=== PATIENT | female | born 1935 | race Caucasian/White ===

== ENCOUNTER 2018-01-20 09:18 | Emergency (ER) | payer OTHER ==
--- OUTSIDE RECORDS SUMMARY | 2018-01-20 09:20 | XMS REPORT | Clinical Summary ---
:1935 Author Organization [facility] Address [address] [place] [address] Care Team Providers Name Role Phone Lena Aaron MD Primary Care Provider Allergies Active Allergy Reactions Severity Noted Date Comments Amoxicillin 08/27/2015 Sulfamethoxazole-Trimethoprim Rash Low 12/26/2017 Hydrocodone 08/27/2015 Nitrofurantoin Rash Low 08/27/2015 Penicillins Rash Low 12/26/2017 Current Medications Prescription Sig. Disp. Refills Start End Date Status Date atorvastatin (LIPITOR) Take 1 Active 80 MG tablet tablet by mouth daily. calcium Chew 1 Active carbonate-vitamin D3 tablet 2 (CALTRATE 600 + D) 600 daily. mg (1,500 mg)-800 unit tablet,chewable ieearbuk-bqwfwtp-gvrt-skyler Take 1 Active tein (CENTRUM SILVER tablet by 2 ULTRA WOMEN'S) tablet mouth daily. UBIDECARENONE (COQ-10 Take 1 Active ORAL) tablet by mouth daily. esomeprazole (NexIUM) 40 Take 1 Active MG capsule tablet by mouth daily. Bacillus coagulans Take 1 Active (PROBIOTIC, B. tablet by COAGULANS,) 10 billion mouth daily. cell capsule,delayed release(DR/EC) polyethylene glycol Take 17 g by Active (MIRALAX) 17 gram packet mouth daily. clopidogrel (PLAVIX) 75 Take 75 mg Active mg tablet by mouth daily. DULoxetine (CYMBALTA) 20 TAKE 1 30 capsule 5 Active MG capsule CAOSULE BY 8 MOUTH AT BEDTIME losartan (COZAAR) 100 MG TAKE 1 30 tablet 5 Active tablet TABLET BY 8 MOUTH ONCE A DAY hydroCHLOROthiazide Take 12.5 mg Active (HYDRODIURIL) 12.5 MG by mouth tablet daily. fenofibrate (FENOGLIDE) Take 1 90 tablet 1 Active 120 MG tablet tablet (120 8 mg total) by mouth nightly. levothyroxine TAKE 1 90 tablet 3 Active (SYNTHROID, LEVOXYL) 75 TABLET BY 8 mcg tablet MOUTH EVERY MORNING alendronate (FOSAMAX) 35 TAKE 1 4 tablet 11 Active MG tablet TABLET BY 8 MOUTH ONCE A WEEK omega-3 acid ethyl TAKE 2 120 capsule 4 Active esters (LOVAZA) 1 gram CAPSULES BY 8 capsule MOUTH TWICE A DAY gabapentin (NEURONTIN) TAKE 2 360 capsule 1 Active 300 mg capsule CAPSULES BY 8 MOUTH TWICE A DAY valACYclovir (VALTREX) TAKE 1 90 tablet 1 Active 500 MG tablet TABLET BY 8 MOUTH DAILY amLODIPine (NORVASC) 5 TAKE 1 60 tablet 2 Active mg tabletIndications: TABLET BY 8 Essential hypertension MOUTH TWICE A DAY ondansetron (ZOFRAN, Take 1 10 tablet 0 03/13/20 Discontinued HYDROCHLORIDE,) 4 MG tablet (4 mg 7 17 tablet total) by mouth every 8 (eight) hours as needed for nausea or vomiting. valACYclovir (VALTREX) TAKE 1 90 tablet 3 11/06/19 Discontinued 500 MG tablet TABLET BY 7 18 MOUTH DAILY alendronate (FOSAMAX) 35 Take 1 4 tablet 5 02/08/20 Discontinued MG tablet tablet (35 7 17 mg total) by mouth every 7 days. * fenofibrate (LOFIBRA) 54 TAKE 1 30 tablet 5 03/22/20 Discontinued MG tablet TABLET BY 7 17 MOUTH EVERY DAY losartan (COZAAR) 100 MG TAKE 1 30 tablet 3 03/22/20 Discontinued tablet TABLET BY 7 17 MOUTH ONCE A DAY levothyroxine Take 1 90 tablet 1 06/10/19 Discontinued (SYNTHROID, LEVOXYL) 75 tablet (75 7 18 mcg tablet mcg total) by mouth every morning. DULoxetine (CYMBALTA) 20 TAKE 1 30 capsule 5 07/10/19 Discontinued MG capsule CAPSULE (20 7 18 MG TOTAL) BY MOUTH DAILY AT BEDTIME omega-3 acid ethyl TAKE 2 120 capsule 5 07/03/19 Discontinued esters (LOVAZA) 1 gram CAPSULES BY 7 18 capsule MOUTH TWICE A DAY amLODIPine (NORVASC) 5 TAKE 1 30 tablet 2 03/24/20 Discontinued mg tablet TABLET BY 7 17 MOUTH EVERY DAY gabapentin (NEURONTIN) TAKE 2 360 capsule 0 04/14/19 Discontinued 300 mg capsule CAPSULES BY 7 18 MOUTH TWICE A DAY alendronate (FOSAMAX) 35 TAKE 1 4 tablet 1 04/01/19 Discontinued MG tablet TABLET (35 7 18 MG TOTAL) BY MOUTH EVERY 7 DAYS. * fenofibrate (LOFIBRA) 54 TAKE 1 30 tablet 3 07/16/19 Discontinued MG tablet TABLET BY 7 18 MOUTH EVERY DAY losartan (COZAAR) 100 MG TAKE 1 30 tablet 3 07/08/19 Discontinued tablet TABLET BY 7 18 MOUTH ONCE A DAY amLODIPine (NORVASC) 5 TAKE 1 30 tablet 3 05/31/19 Discontinued mg tablet TABLET BY 8 18 MOUTH EVERY DAY alendronate (FOSAMAX) 35 TAKE 1 4 tablet 1 05/11/19 Discontinued MG tablet TABLET BY 8 18 MOUTH ONCE A WEEK gabapentin (NEURONTIN) TAKE 2 360 capsule 1 10/16/19 Discontinued 300 mg capsule CAPSULES BY 8 18 MOUTH TWICE A DAY alendronate (FOSAMAX) 35 TAKE 1 4 tablet 3 09/27/19 Discontinued MG tablet TABLET BY 8 18 MOUTH ONCE A WEEK amLODIPine (NORVASC) 5 Take 1/2 45 tablet 2 08/01/19 Discontinued mg tablet tablet in AM 8 18 and 1 tablet in PM levothyroxine TAKE 1 90 tablet 0 09/13/19 Discontinued (SYNTHROID, LEVOXYL) 75 TABLET BY 8 18 mcg tablet MOUTH EVERY MORNING omega-3 acid ethyl TAKE 2 120 capsule 0 08/08/19 Discontinued esters (LOVAZA) 1 gram CAPSULES BY 8 18 capsule MOUTH TWICE A DAY losartan (COZAAR) 100 MG TAKE 1 30 tablet 1 09/04/19 Discontinued tablet TABLET BY 8 18 MOUTH ONCE A DAY DULoxetine (CYMBALTA) 20 TAKE 1 30 capsule 1 09/04/19 Discontinued MG capsule CAPSULE (20 8 18 MG TOTAL) BY MOUTH DAILY AT BEDTIME fenofibrate (LOFIBRA) 54 TAKE 1 30 tablet 1 09/07/19 Discontinued MG tablet TABLET BY 8 18 MOUTH EVERY DAY amLODIPine (NORVASC) 5 Take 1 60 tablet 2 12/18/19 Discontinued mg tabletIndications: tablet twice 8 18 Essential hypertension a day omega-3 acid ethyl TAKE 2 120 capsule 1 10/02/19 Discontinued esters (LOVAZA) 1 gram CAPSULES BY 8 18 capsule MOUTH TWICE A DAY levoFLOXacin (LEVAQUIN) Take 1 10 tablet 0 01/06/20 500 MG tablet (500 8 18 tabletIndications: mg total) by Cough, Chest rales mouth daily for 10 days. Active Problems Problem Noted Date Medicare annual wellness visit, subsequent 08/02/2016 Overview: Patient is , lives independently. She does not have functional impairment. She is up-to-date with immunizations except that she has not received the Tdap. She is up-to-date with health maintenance procedures except for the bone density. Last was in February 2012 with a T score -2.0. She has a medical power of contract attorney Alteration in bowel elimination: incontinence 08/02/2016 Overview: Over the past 2-3 months she has gone from requiring MiraLAX for constipation to having loose, "mushy" bowel movements within a short period after eating. We' ll have abrupt onset of bowel movements with occasional accidents such that she has had to start wearing pads and does not want to go out to have lunch with friends. Has increase gaseousness and feels some increase in bloating. Appetite is good although she has lost 5 pounds over the last 6 months primarily related to just eating less. She had a colonoscopy [address] Bentley without significant findings. Sensory neuropathy 12/08/2015 Overview: Pt complaining bitterly of burning sensation in buttocks, anus area and extending into proximal leg mainly on the right. Had been Dx with vulvodynia last year because of burning in vulvar area but that is no longer localization of discomfort. Had colonoscopy 05/20/[address] Bentley. Afterwards started noting burning in buttocks and perianal region. Has been prescribed a number of medications and creams for this without response and has been on chronic Valtrex for suppression of herpes outbreak right buttocks plus rather high dose of gabapentin for RLS. Generally feels OK during day but has problems if sitting for long period and in particular when lying down at night such thatwas not been sleeping well. There has been some paresthetic sense but no dysesthesia, numbness or allodynia in area of involvement. No sense of weakness in legs. 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 Chronic constipation 08/27/2015 Depression 08/27/2015 Essential hypertension 08/27/2015 Overview: On amlodipine 5mg daily and losartan 100mg daily. Brings in record of multiple blood pressures which show significant lability varying from 127-160 systolic, majority < 140 systolic. 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 Menopausal symptom 03/04/2012 Restless legs syndrome 03/04/2012 Overview: Remains on gabapentin 600 mg twice a day for restless leg syndrome and sensory neuropathy Postoperative hypothyroidism 03/04/2012 Overview: She is on levothyroxin 50 g daily. She is status post left hemithyroidectomy for benign nodule. Encounters Date Type Specialty Care Team Description 01/17/2018 Telephone Internal Medicine Lena Aaron MD 01/09/2018 Telephone Internal Medicine Lena Aaron MD 12/29/2017 Refill Internal Medicine Lena Aaron MD 12/26/2017 Office Visit Family Medicine Arnie Aaron (Primary Dx); Lena Chest rales MD Esmer 12/26/2017 Telephone Family Medicine Arelis Amato RN 12/17/2017 Refill Family Lawrence Aaron Essential hypertension Lena Lyman MD 11/05/2017 Refill Internal Medicine Lena Aaron MD 10/15/2017 Refill Internal Medicine Lena Aaron MD 10/01/2017 Refill Internal Medicine Lena Aaron MD 09/26/2017 Refill Internal Medicine Lena Aaron MD 09/14/[address] [facility] Hung Crowell, HAND SPRING REPAIRER 09/12/2017 Refill Family Medicine Lena Aaron MD 09/10/[address] [facility] Hung Crowell, HAND SPRING REPAIRER 09/06/2017 Office Visit [facility] Medicine [place], Essential hypertension ( Primary Dx); Lena Mixed hyperlipidemia MD Esmer 09/03/2017 Refill Internal Medicine Lena Aaron MD 08/15/[address] [facility] Lena Aaron MD 08/14/2017 Nurse Triage Access Patricia Bella RN 08/14/[address] [facility] Lena Aaron MD 08/07/2017 Refill Internal Medicine Lena Aaron MD 07/31/2017 Lab Lab [place], Pure hypercholesterolemia; Lena Acquired hypothyroidism; MD Esmer Essential hypertension 07/31/2017 [facility], Annual visit for general adult medical examination with abnormal findings (Primary Dx); Lena Colon cancer screening; MD Esmer Pure hypercholesterolemia; Acquired hypothyroidism; Essential hypertension; Chronic constipation 07/15/2017 Refill Internal Medicine Lena Aaron MD 07/09/2017 Refill Internal Medicine Lena Aaron MD 07/07/2017 Refill Internal Medicine Lena Aaron MD 07/02/2017 Refill Internal Medicine Lena Aaron MD 06/27/2017 Telephone [facility] Medicine Lena Aaron MD 06/09/2017 Refill Family Medicine Lena Aaron MD 05/30/[address] [facility] [place], Essential hypertension Lena (Primary Dx) MD Esmer 05/17/2017 Hospital Encounter Radiology [place], Breast cancer Lena screening MD Esmer 05/11/2017 Refill Internal Medicine Lena Aaron MD 05/08/2017 Telephone Family Medicine [place], Breast cancer Lena screening (Primary Dx) MD Esmer 04/14/2017 Refill Internal Medicine Lena Aaron MD 04/01/2017 Refill Internal Medicine Lena Aaron MD 03/24/2017 Refill Internal Medicine Lena Aaron MD 03/22/2017 Refill Internal Medicine Lena Aaron MD 03/16/2017 Refill Internal Medicine Manuel Fonseca III, MD 03/14/2017 Telephone Family Medicine Lena Aaron MD 03/13/2017 Office Visit Family Medicine [place], Essential hypertension Lena (Primary Dx) MD Esmer 02/07/2017 Refill Internal Medicine Lena Aaron MD 02/05/2017 Refill Internal Medicine Manuel Fonseca III, MD after 01/19/2017 Immunizations Name Dates Previously Given Next Due FLUZONE HIGH-DOSE PF 11/30/2016 Influenza Trivalent 12/25/2014, 12/17/2013, 12/10/2012 Pneumococcal Conjugate 13-Valent 05/26/2015 Pneumococcal Polysaccharide 03/06/2001 TD Preservative Free 07/29/2008 Zoster 02/03/2014 Family History Medical History Relation Name Comments Diabetes Brother Prostate cancer Brother Diabetes Daughter Other Daughter a fib Lung cancer Father smoker Heart disease Sister Diabetes Son Type 2 Relation Name Status Comments Brother Daughter Father Mother Sister (Age 75) aspiration pneumonia Son (Age 56) Social History Tobacco Use Types Packs/Day Years Used Date Former Smoker Smokeless Tobacco: Never Used Tobacco Cessation: Counseling Given: No Alcohol Use Drinks/Week oz/Week Comments No Sex Assigned at Date Recorded Not on file Last Filed Vital Signs Vital Sign Reading Time Taken Blood Pressure 93/52 12/26/2017 11:38 AM CDT Pulse 64 12/26/2017 11:38 AM CDT Temperature 36.7 C (98 F) 12/26/2017 11:38 AM CDT Respiratory Rate - - Oxygen Saturation 96% 12/26/2017 11:38 AM CDT Inhaled Oxygen Concentration - - Weight 54 kg (119 lb) 12/26/2017 11:38 AM CDT Height 152.4 cm (5') 12/26/2017 11:38 AM CDT Body Mass Index 23.24 12/26/2017 11:38 AM CDT Plan of Treatment Date Type Specialty Care Team Description 03/05/2018 Office Visit Family Medicine Lena Aaron MD [address] [place] [address] [phone] Health Maintenance Due Date Last Done Comments SHINGRIX VACCINE (#1) 1986 INFLUENZA VACCINE 10/24/2017 11/30/2016, 12/25/2014, 12/17/2013, Additional history exists PNEUMOCOCCAL POLYSACCHARIDE VACCINE Completed 03/06/2001 AGE 65 AND OVER ZOSTER VACCINE Completed 02/03/2014 PNEUMOCOCCAL-13 Completed 05/26/2015, 05/26/2015 Procedures Procedure Name Priority Date/Time Associated Diagnosis Comments XR CHEST 2 VW Routine 12/26/2017 Cough Results for 12:59 PM CDT Chest rales this procedure are in the results section. OCCULT BLOOD, STOOL Routine 08/01/2017 Colon cancer screening Results for 10:29 AM CDT this procedure are in the results section. URINALYSIS, Routine 07/31/2017 Essential hypertension Results for AUTOMATED WITH 10:37 AM CDT this procedure MICROSCOPY are in the results section. T4, FREE Routine 07/31/2017 Acquired hypothyroidism Results for 10:37 AM CDT this procedure are in the results section. THYROID STIMULATING Routine 07/31/2017 Acquired hypothyroidism Results for HORMONE 10:37 AM CDT this procedure are in the results section. CREATINE KINASE, Routine 07/31/2017 Pure hypercholesterolemia Results for TOTAL (CPK) 10:37 AM CDT this procedure are in the results section. COMPREHENSIVE Routine 07/31/2017 Pure hypercholesterolemia Results for METABOLIC PANEL 10:37 AM CDT this procedure are in the results section. LIPID PANEL Routine 07/31/2017 Pure hypercholesterolemia Results for 10:37 AM CDT this procedure are in the results section. MAMMO SCREENING W Routine 05/17/2017 Breast cancer screening Results for CAD BILATERAL 3:32 PM BSA/AML COMPLIANCE OFFICER this procedure are in the results section. after 01/19/2017 Results XR Chest 2 Vw (12/26/2017 12:59 PM) Narrative Performed At TWO VIEW CHEST, 12/26/2017 [facility] Clinical history:New onset cough. Left mid to lower lung rales. Technique: PA and lateral views chest. Comparison: None DISCUSSION: The lungs are clear and symmetrically inflated. No pleural effusions. Cardiac size and mediastinal contour are normal. Right coronary stents. Mild aortic arch calcification. Normal central vasculature.The skeleton is grossly intact. IMPRESSION: No acute abnormality. Procedure Note Interface, Radiology Results Incoming - 12/26/2017 1:58 PM CDT TWO VIEW CHEST, 12/26/2017 Clinical history: New onset cough. Left mid to lower lung rales. Technique: PA and lateral views chest. Comparison: None DISCUSSION: The lungs are clear and symmetrically inflated. No pleural effusions. Cardiac size and mediastinal contour are normal. Right coronary stents. Mild aortic arch calcification. Normal central vasculature. The skeleton is grossly intact. IMPRESSION: No acute abnormality. Performing Organization Address City/[facility]/Zipcode Phone Number JAMES [address] [place] [address] Occult blood, stool (08/01/2017 10:29 AM) Fecal globin result SEE NOTE [facility] [place] Comment: FECAL GLOBIN BY IMMUNOCHEMISTRY MICRO NUMBER:[id number] TEST STATUS: FINAL SPECIMEN SOURCE: INSURE () FOBT TEST CARD SPECIMEN QUALITY:ADEQUATE RESULT:Not Detected Specimen Stool Other Results Text Performing Organization Information: Site ID: [id number] Name: [facility] Lab Address: [address] [place] [phone] Director: Donna Burkett Performing Organization Address [facility]/Zipcode Phone Number [facility] [place] [address] [place] [phone] Urinalysis, automated with microscopy (07/31/2017 10:37 AM) Color, UA YELLOW YELLOW [facility] [place] Appearance CLOUDY (A) CLEAR [facility] [place] Specific gravity, urine 1.015 1.001 - 1.035 [facility] [place] pH, urine 7.0 5.0 - 8.0 [facility] [place] Glucose, urine NEGATIVE NEGATIVE [facility] [place] Bilirubin, UA NEGATIVE NEGATIVE [facility] [place] Ketones, UA NEGATIVE NEGATIVE [facility] [place] Occult blood, urine NEGATIVE NEGATIVE [facility] [place] Protein, UA NEGATIVE NEGATIVE [facility] [place] Nitrite, UA NEGATIVE NEGATIVE [facility] [place] Leukocyte esterase, UA 3+ (A) NEGATIVE [facility] [place] WBC, UA 0-5 < OR=5 /HPF [facility] [place] RBC, UA 0-2 < OR=2 /HPF [facility] [place] Squamous epithelial cells, UA 6-10 (A) < OR=5 /HPF [facility] [place] Bacteria, UA MANY (A) NONE SEEN /HPF [facility] [place] Calcium oxalate crystals, UA FEW NONE OR FEW /HPF [facility] [place] Hyaline casts, UA NONE SEEN NONE SEEN /LPF [facility] [place] Specimen Blood Other Results Text Performing Organization Information: Site ID: [facility] Name: [facility] Lab Address: [address] [place] [phone] Director: Donna Burkett Performing Organization Address [facility] [place] [address] Thyroid stimulating hormone (07/31/2017 10:37 AM) TSH 1.55 0.40 - 4.50 mIU/L [facility] [place] Specimen Blood Other Results Text Performing Organization Information: Site ID: [facility] Name: [facility] Lab Address: [address] [place] [phone] Director: Donna Burkett Performing Organization Address [facility] [place] [address] T4, free (07/31/2017 10:37 AM) T4, free 1.6 0.8 - 1.8 ng/dL [facility] [place] Specimen Blood Other Results Text Performing Organization Information: Site ID: [facility] Name: [facility] Lab Address: [address] [place] [phone] Director: Donna Burkett Performing Organization Address [facility] [place] [address] Creatine kinase, total (CPK) (07/31/2017 10:37 AM) Creatine kinase 277 (H) 29 - 143 U/L [facility] [place] Specimen Blood Other Results Text Performing Organization Information: Site ID: [facility] Name: [facility] Lab Address: [address] [place] [phone] Director: Donna Burkett Performing Organization Address [facility] [place] [address] Lipid panel (07/31/2017 10:37 AM) Cholesterol, total 232 (H) <200 mg/dL [facility] HDL cholesterol 40 (L) >50 mg/dL [facility] Triglycerides 272 (H) <150 mg/dL [facility] LDL cholesterol 147 (H) mg/dL (calc) [facility] calculated Comment: [place] Reference range: <100 Desirable range <100 mg/dL for primary prevention; <70 mg/dL for patients with CHD or diabetic patients with > or=2 CHD risk factors. LDL-C is now calculated using the Pradeep calculation, which is a validated novel method providing better accuracy than the Friedewald equation in the estimation of LDL-C. Geoff SS et al. MARY. 2013;310(58): 2592-9319 (http://education.Pace4Life/faq/JAG597) Cholesterol/HDL ratio 5.8 (H) <5.0 (calc) [facility] Non-HDL cholesterol 192 (H) <130 mg/dL [facility] Comment: (calc) [place] For patients with diabetes plus 1 major ASCVD risk factor, treating to a non-HDL-C goal of <100 mg/dL (LDL-C of <70 mg/dL) is considered a therapeutic option. Specimen Blood Other Results Text Performing Organization Information: Site ID: [facility] Name: [facility] Lab Address: [address] [place] [phone] Director: Donna Burkett Performing Organization Address City/State/[place] [address] Comprehensive metabolic panel (07/31/2017 10:37 AM) Glucose 108 (H) 65 - 99 mg/dL [facility] Comment: [place] Fasting reference interval For someone without known diabetes, a glucose value between 100 and 125 mg/dL is consistent with prediabetes and should be confirmed with a follow-up test. BUN, whole blood 16 7 - 25 mg/dL [facility] Creatinine 1.08 (H) 0.60 - 0.88 [facility] Comment: mg/dL [place] For patients >49 years of age, the reference limit for Creatinine is approximately 13% higher for people identified as -[place]. EGFR Non-Afr. [place]ian 48 (L) > OR=60 [facility] mL/min/1.73m2 [place] EGFR 56 (L) > OR=60 [facility] mL/min/1.73m2 [place] BUN/creatinine ratio 15 6 - 22 (calc) [facility] [place] Sodium 141 135 - 146 mmol/L [facility] [place] Potassium 4.0 3.5 - 5.3 mmol/L [facility] [place] Chloride 103 98 - 110 mmol/L [facility] [place] CO2 28 20 - 31 mmol/L [facility] [place] Calcium 10.3 8.6 - 10.4 mg/dL [facility] [place] Protein 7.4 6.1 - 8.1 g/dL [facility] [place] Albumin, S 5.2 (H) 3.6 - 5.1 g/dL [facility] [place] Globulin, total 2.2 1.9 - 3.7 g/dL [facility] (calc) [place] Albumin/globulin ratio 2.4 1.0 - 2.5 (calc) [facility] [place] Total bilirubin 0.7 0.2 - 1.2 mg/dL [facility] [place] Alkaline phosphatase 36 33 - 130 U/L [facility] AST 21 10 - 35 U/L [facility] ALT 19 6 - 29 U/L [facility] [place] Specimen Blood Other Results Text Performing Organization Information: Site ID: [facility] Name: [facility] Lab Address: [address] [place] [phone] Director: Donna Burkett Performing Organization Address City/State/Zipcode Phone Number [facility] [address] [phone] Mammo Screening w Cad Bilateral (05/17/2017 3:32 PM) Narrative Performed At PROCEDURE: [facility] MAMMO SCREENING W CAD BILATERAL Computer-assisted detection was utilized for the interpretation of this exam. COMPARISON: 2014 TECHNIQUE: Bilateral digital screening mammogram was performed and interpreted using computer-assisted detection. CLINICAL HISTORY: The patient has no current palpable breast complaints. FINDINGS: Bilateral mammogram demonstrates the breast parenchyma to beheterogeneously dense, which could obscure the detection of small masses. Focal asymmetry in the inferior aspect of the right breast has remained stable since prior LEFT:No specific features of malignancy. RIGHT: No specific features of malignancy. IMPRESSION: BI-RADS Category 2. Benign finding(s). Recommend comparison with physical exam and annual screening mammography. There has been no significant interval change from prior studies. This facility is accredited by [employer] [place] for Mammography. A negative x-ray report should not delay biopsy if a dominant or clinically suspicious mass is present. Not all cancers are identified by x-ray. [id number] Performing Organization Address City/State/Zipcode Phone Number [facility] RAMIRE[facility] [address] [place] [address] after 01/19/2017 Insurance Payer Benefit Plan / Group Subscriber ID Type Phone Address MEDICARE MEDICARE PART A AND B xxxxxxxxxx Medicare [place], [place] COMMERCIAL MISC MISC COMMERCIAL xxxxxxxx Commercial Work: [phone] [place] [phone] Home:
[2018-01-20 10:06] LABS: Absolute Lymphocytes (CBC) 0.5 K/uL (0.7-4.9); Absolute Monocytes 0.8 K/uL (0.1-1.3); Absolute Neutrophil 13.4 K/uL (1.8-8.0); Basophils % 0.2 % (0-1.3); Eosinophils % 0.4 % (0-4.4); Hematocrit 35.7 % (36.0-45.0); Lymphocytes % 3.1 % (15.3-44.8); MCH 32.1 pg (27.0-35.0); MCV 91.8 fL (80-100); Monocytes % 5.6 % (3.3-12.3); RBC Red Blood Cell Count 3.89 M/uL (3.86-4.86)
[2018-01-20 10:17] LABS: Albumin 3.6 g/dL (3.4-5.0); Bilirubin Direct 0.2 mg/dL (0-0.2); Bilirubin Total 0.6 mg/dL (0.2-1.0); Potassium 3.3 mmol/L (3.5-5.1); Protein, Total 6.7 g/dL (6.4-8.2)
[2018-01-20 10:40] LABS: Blood Morphology Comment NOTED (NOT SEEN); Burr Cells 1+; Platelet Estimate ADEQ; Polychromasia 1+; Urine White Blood Cell Casts OK
--- NOTE | 2018-01-20 10:51 | RAD REPORT ---
EXAM DESCRIPTION: CT - Abdomen Pelvis W Contrast - 01/20/2018 10:31 am CLINICAL HISTORY: Abdominal pain/right flank pain since last night COMPARISON: none. TECHNIQUE: Computed axial tomography of the abdomen pelvis was obtained. 100 cc Isovue-300 was admin istered intravenously. Oral contrast was not requested which limits evaluation of bowel. All CT scans are performed using dose optimization technique as appropriate and may include automated exposure control or mA/KV adjustment according to patient size. FINDINGS: The liver, spleen, pancreas, adrenal and kidneys appear unremarkable. There is no evidence of diverticulitis. Fluid is present within nondilated small bowel. The wall of the right colon appears mildly thickened. A tiny umbilical hernia is present Moderate calcification is present within the abdominal aorta at the level of the kidneys IMPRESSION: Mild thickening of the wall of the right colon may indicate a mild colitis Fluid within nondilated small bowel may indicate an enteritis.
[2018-01-20 10:52] LABS: Urine Blood NEGATIVE (NEG); Urine Glucose NEGATIVE (NEG); Urine Protein NEGATIVE (NEG); Urine Specific Gravity 1.015 (1.005-1.030)
[2018-01-20 11:02] LABS: Urine Bacteria <20 /HPF (<20); Urine Culture Reflex Order REFLEXED; Urine RBC NONE SEEN /HPF (NONE SEEN)
--- NOTE | 2018-01-20 11:10 | EDPHYS ---
Physician Documentation [facility] Name: Leyda Ramos Age: 82 yrs Sex: Female : 1935 Arrival Date: 01/20/2018 Time: 09:21 Bed 5 Private MD: out of town, doctor ED Physician Abdulaziz Hart HPI: 01/20 11:04 This 82 yrs old Female presents to ER via Ambulatory with complaints of Flank gs Pain, Back Pain, Dizziness. 11:04 This 82 yrs old Female presents to ER via Ambulatory with complaints of Flank gs Pain. 11:04 The patient complains of pain in the right low back. The pain radiates to the right gs upper quadrant. Onset: The symptoms/episode began/occurred yesterday. Modifying factors: The symptoms are alleviated by nothing. the symptoms are aggravated by nothing. Associated signs and symptoms: Pertinent positives: diarrhea, vomiting. Severity of pain: At its worst the pain was moderate in the emergency department the pain is unchanged. The patient has not experienced similar symptoms in the past. Historical: - Allergies: 09:37 Bactrim; bp 09:37 Hydrocodone-Acetaminophen; bp 09:37 PENICILLINS; bp 09:37 Augmentin; bp - Home Meds: 09:37 levothyroxine 50 mcg tab 1 tab once daily [Active]; omega-3 acid ethyl esters 1 gram bp Oral cap 2 caps 2 times per day [Active]; Plavix Oral [Active]; Lipitor Oral [Active]; Tricor Oral [Active]; Cozaar 100 mg Oral tab 1 tab once daily [Active]; losartan oral oral [Active]; - PMHx: 09:37 High Cholesterol; Hypertension; leaking heart valve; Hypothyroidism; bp 11:07 Chronic pain; pelvic; gs - PSHx: 09:37 Heart stents; Tonsillectomy; bp - Immunization history:: Adult Immunizations up to date. - Social history:: Smoking status: Patient/guardian denies using tobacco. - Ebola Screening: : Patient negative for fever greater than or equal to 101.5 degrees Fahrenheit, and additional compatible Ebola Virus Disease symptoms Patient denies exposure to infectious person Patient denies travel to an Ebola-affected area in the 21 days before illness onset No symptoms or risks identified at this time. ROS: 11:07 All other systems are negative. gs Exam: 11:07 Head/Face: Normocephalic, atraumatic. Eyes: Pupils equal round and reactive to light, gs extra-ocular motions intact. Lids and lashes normal. Conjunctiva and sclera are non-icteric and not injected. Cornea within normal limits. Periorbital areas with no swelling, redness, or edema. ENT: Nares patent. No nasal discharge, no septal abnormalities noted. Tympanic membranes are normal and external auditory canals are clear. Oropharynx with no redness, swelling, or masses, exudates, or evidence of obstruction, uvula midline. Mucous membranes moist. Neck: Trachea midline, no thyromegaly or masses palpated, and no cervical lymphadenopathy. Supple, full range of motion without nuchal rigidity, or vertebral point tenderness. No Meningismus. Chest/axilla: Normal chest wall appearance and motion. Nontender with no deformity. No lesions are appreciated. Cardiovascular: Regular rate and rhythm with a normal S1 and S2. No gallops, murmurs, or rubs. Normal PMI, no JVD. No pulse deficits. Respiratory: Lungs have equal breath sounds bilaterally, clear to auscultation and percussion. No rales, rhonchi or wheezes noted. No increased work of breathing, no retractions or nasal flaring. Back: No spinal tenderness. No costovertebral tenderness. Full range of motion. MS/ Extremity: Pulses equal, no cyanosis. Neurovascular intact. Full, normal range of motion. Neuro: Awake and alert, GCS 15, oriented to person, place, time, and situation. Cranial nerves II-XII grossly intact. Motor strength 5/5 in all extremities. Sensory grossly intact. Cerebellar exam normal. Normal gait. 11:07 Skin: Warm, dry with normal turgor. Normal color with no rashes, no lesions, and no evidence of cellulitis. 11:07 Constitutional: The patient appears alert, awake. 11:07 Abdomen/GI: Palpation: moderate abdominal tenderness, in the right upper quadrant and right lower quadrant. Vital Signs: 09:37 BP 116 / 55; Pulse 78; Resp 16; Temp 97.9; Pulse Ox 98% ; Weight 52.16 kg; Height 5 ft. bp (152.40 cm); 11:00 BP 124 / 56; Pulse 77; Resp 16; Pulse Ox 100% ; bp 09:37 Body Mass Index 22.46 (52.16 kg, 152.40 cm) bp MDM: 09:38 Patient medically screened. gs 11:07 Differential diagnosis: pyelonephritis, UTI, diverticulitis. Data reviewed: vital gs signs, nurses notes. Counseling: I had a detailed discussion with the patient and/or guardian regarding: the historical points, exam findings, and any diagnostic results supporting the discharge/admit diagnosis, lab results, radiology results, the need for outpatient follow up. Response to treatment: the patient's symptoms have markedly improved after treatment, and as a result, I will discharge patient. 01/20 09:39 Order name: Urine Microscopic Only gs 01/20 09:39 Order name: Basic Metabolic Panel; Complete Time: 10:51 gs 01/20 09:39 Order name: CBC with Diff; Complete Time: 10:51 gs 01/20 09:39 Order name: Hepatic Function; Complete Time: 10:51 gs 01/20 09:39 Order name: Lipase; Complete Time: 10:51 gs 01/20 10:15 Order name: CBC Smear Scan; Complete Time: 10:51 EDMS 01/20 09:39 Order name: Urine Dipstick-Ancillary (obtain specimen); Complete Time: 10:49 gs 01/20 09:39 Order name: IV Saline Lock; Complete Time: 09:56 01/20 09:39 Order name: Labs collected and sent; Complete Time: 09:56 01/20 09:39 Order name: CT Abd/Pelvis - W/Contrast; Complete Time: 10:51 01/20 10:48 Order name: Urine Dipstick--Ancillary (enter results) bd 01/20 11:03 Order name: Urine Culture EDMS Administered Medications: 11:28 Drug: Tetanus-Diphtheria Toxoid Adult 0.5 ml {Hand Polisher: [employer]. Exp: bp 03/13/2020. Lot #: [id number]. } Route: IM; Site: right deltoid; 11:29 Follow up: Response: No adverse reaction bp Disposition: 01/20/18 11:10 Discharged to Home. Impression: Other abdominal pain, colitis. - Condition is Stable. - Discharge Instructions: Colitis. - Prescriptions for Flagyl 500 mg Oral Tablet - take 1 tablet by ORAL route every 12 hours for 5 days; 10 tablet. - Medication Reconciliation Form, Thank You Letter, Antibiotic Education, Prescription Opioid Use form. - Follow up: Private Physician; When: 2 - 3 days; Reason: Re-evaluation by your physician. Signatures: Dispatcher [employer] Abdulaziz Dove MD MD gs Peltier, Brian, RN RN bp Corrections: (The following items were deleted from the chart) 11:31 11:10 01/20/2018 11:10 Discharged to Home. Impression: Other abdominal pain; colitis. bp Condition is Stable. Forms are Medication Reconciliation Form, Thank You Letter, Antibiotic Education, Prescription Opioid Use. Follow up: Private Physician; When: 2 - 3 days; Reason: Re-evaluation by your physician. gs
--- NOTE | 2018-01-20 11:10 | ER ---
Nurse's Notes [facility] Name: Leyda Ramos Age: 82 yrs Sex: Female : 1935 Arrival Date: 01/20/2018 Time: 09:21 Bed 5 Private MD: out of town, doctor Diagnosis: Other abdominal pain;colitis Presentation: 01/20 09:34 Presenting complaint: Patient states: R FLANK PAIN SINCE 2099. Transition of care: bp patient was not received from another setting of care. Onset of symptoms was January 19, 2018 at 21:00. Risk Assessment: Do you want to hurt yourself or someone else? Patient reports no desire to harm self or others. Initial Sepsis Screen: Does the patient meet any 2 criteria? No. Patient's initial sepsis screen is negative. Does the patient have a suspected source of infection? No. Patient's initial sepsis screen is negative. Care prior to arrival: None. 09:34 Method Of Arrival: Ambulatory bp 09:34 Acuity: EVELIO 3 bp Triage Assessment: 09:37 General: Appears in no apparent distress. uncomfortable, Behavior is cooperative, bp appropriate for age, anxious. Pain: Complains of pain in posterior aspect of right lateral abdomen and anterior aspect of right lateral abdomen. Musculoskeletal: Circulation, motion, and sensation intact. Range of motion: intact in all extremities. Historical: - Allergies: 09:37 Bactrim; bp 09:37 Hydrocodone-Acetaminophen; bp 09:37 PENICILLINS; bp 09:37 Augmentin; bp - Home Meds: 09:37 levothyroxine 50 mcg tab 1 tab once daily [Active]; omega-3 acid ethyl esters 1 gram bp Oral cap 2 caps 2 times per day [Active]; Plavix Oral [Active]; Lipitor Oral [Active]; Tricor Oral [Active]; Cozaar 100 mg Oral tab 1 tab once daily [Active]; losartan oral oral [Active]; - PMHx: 09:37 High Cholesterol; Hypertension; leaking heart valve; Hypothyroidism; bp 11:07 Chronic pain; pelvic; gs - PSHx: 09:37 Heart stents; Tonsillectomy; bp - Immunization history:: Adult Immunizations up to date. - Social history:: Smoking status: Patient/guardian denies using tobacco. - Ebola Screening: : Patient negative for fever greater than or equal to 101.5 degrees Fahrenheit, and additional compatible Ebola Virus Disease symptoms Patient denies exposure to infectious person Patient denies travel to an Ebola-affected area in the 21 days before illness onset No symptoms or risks identified at this time. Screenin:39 Abuse screen: Denies threats or abuse. Denies injuries from another. Nutritional bp screening: No deficits noted. Tuberculosis screening: No symptoms or risk factors identified. Fall Risk None identified. Assessment: 09:40 General: Appears in no apparent distress. uncomfortable, Behavior is cooperative, bp appropriate for age, anxious. Pain: Complains of pain in anterior aspect of right lateral abdomen. Neuro: Level of Consciousness is awake, alert, obeys commands, Oriented to person, place, time, situation, Appropriate for age. Cardiovascular: No deficits noted. Respiratory: Airway is patent Respiratory effort is even, unlabored, Respiratory pattern is regular, symmetrical. GI: No signs and/or symptoms were reported involving the gastrointestinal system. : Reports pain in right flank(s). EENT: No deficits noted. Derm: No deficits noted. Musculoskeletal: Circulation, motion, and sensation intact. Range of motion: intact in all extremities. 11:04 Reassessment: ALL CURRENT ORDERS COMPLETED, RESULTS PENDING. bp 11:30 Reassessment: PT D/C HOME AMBULATORY WITH FAMILY, DX WITH COLITIS. bp Vital Signs: 09:37 BP 116 / 55; Pulse 78; Resp 16; Temp 97.9; Pulse Ox 98% ; Weight 52.16 kg; Height 5 ft. bp (152.40 cm); 11:00 BP 124 / 56; Pulse 77; Resp 16; Pulse Ox 100% ; bp 09:37 Body Mass Index 22.46 (52.16 kg, 152.40 cm) bp ED Course: 09:21 Patient arrived in ED. mr 09:22 out of town, doctor is Private Physician. mr 09:28 Tulio Vera, JOSÉ is Primary Nurse. bp 09:31 Abdulaziz Hart MD is Attending Physician. gs 09:34 Triage completed. bp 09:37 Arm band placed on. bp 09:39 Patient has correct armband on for positive identification. Bed in low position. Call bp light in reach. Side rails up X2. Adult w/ patient. 09:50 Inserted saline lock: 20 gauge in right forearm, using aseptic technique. Blood bp collected. 09:52 Radiology exam delayed due to lab results not completed at this time. (BUN/Creatinine). cw1 10:30 CT completed. Patient tolerated procedure well. Patient moved back from CT. cw1 10:31 CT Abd/Pelvis - W/Contrast In Process Unspecified. EDMS 10:49 Urine collected: clean catch specimen, cloudy, gwyn colored. jb1 11:29 No provider procedures requiring assistance completed. IV discontinued, intact, bp bleeding controlled, No redness/swelling at site. Pressure dressing applied. Administered Medications: 11:28 Drug: Tetanus-Diphtheria Toxoid Adult 0.5 ml {Clarity Developer: [employer]. Exp: bp 03/13/2020. Lot #: [id number]. } Route: IM; Site: right deltoid; 11:29 Follow up: Response: No adverse reaction bp Outcome: 11:10 Discharge ordered by . 11:30 Discharged to home ambulatory, with family. bp 11:30 Condition: stable 11:30 Discharge instructions given to patient, Instructed on discharge instructions, follow up and referral plans. medication usage, Demonstrated understanding of instructions, follow-up care, medications, Prescriptions given X 1. 11:31 Patient left the ED. bp Addendum: 01/24/2018 07:58 Addendum: Culture Results: Positive urine culture. Bacteria is resistant to, has i w intermediate sensitivity, or is not tested against prescribed antibiotics. Report given to KRISH for further evaluation and then to multi needle machine operator for follow up with patient. Phone call Attempt #1 pt did not answer, left voice mail. Signatures: Dispatcher [employer] EDPA BrittJose A grady jb1 LeungSerena Irene, Amelie Alexandre RN cw1 Abdulaziz Hart MD MD gs Peltier, Brian, RN RN bp
[2018-01-20] MEDS ORDERED: TETANUS & DIPHTHERIA TOX,ADULT 0.5 ML VIAL ONE (11:29)
== END 2018-01-20 11:31 | disposition home or self-care (01) ==
LOC: ER 09:18
DX: K52.9 Noninfective gastroenteritis and colitis, unspecified (principal); I10 Essential (primary) hypertension; E78.00 Pure hypercholesterolemia, unspecified; E03.9 Hypothyroidism, unspecified; Z23 Encounter for immunization; Z79.01 Long term (current) use of anticoagulants; Z88.0 Allergy status to penicillin; Z88.1 Allergy status to other antibiotic agents; Z88.5 Allergy status to narcotic agent
CPT/HCPCS: 36415; 74177; 80048; 80076; 83690; 85025; 87077; 87086; 87088; 87186; 90714; 99284; Q9967; 81003; 81015

== ENCOUNTER 2020-08-12 21:06 | Emergency (ER) | payer OTHER ==
--- OUTSIDE RECORDS SUMMARY | 2020-08-12 21:13 | XMS REPORT | Continuity of Care Document ---
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 [Autom ated message] The (test code = 3097-3) system which generated this result tra nsmitted reference range : 6 - 22 (calc). The ref erence range was not u sed to interpret this result as normal/abnormal . Sodium (test code = 138 mmol/L 739-349 8632-2) Potassium (test code = 3.7 mmol/L 3.5-5.3 2823-3) Chloride (test code = 95 mmol/L 98-110 L 5-0) CO2 (test code = 2027-9) 28 mmol/L 20-32 Calcium (test code = 10.8 mg/dL 8.6-10.4 H 06460-2) Protein (test code = 7.8 g/dL 6.1-8.1 2885-2) Albumin, S (test code = 5.3 g/dL 3.6-5.1 H 1751-7) Globulin, total (test 2.5 See_Comment [Auto mated message] The code = 67988-2) system which generated this result tra nsmitted reference range : 1.9 - 3.7 g/dL (calc) . The reference range was not used to interpr et this result as normal/abnormal . Albumin/globulin ratio 2.1 See_Comment [Aut omated message] The (test code = 1759-0) system which generated this result tra nsmitted reference range : 1.0 - 2.5 (calc). The reference range was not u sed to interpret this result as normal/abnormal . Total bilirubin (test 0.8 mg/dL 0.2-1.2 code = 1974-2) Alkaline phosphatase 39 U/L 37-153 (test code = 6768-6) AST (test code = 1920-8) 29 U/L 10-35 ALT (test code = 1742-6) 26 U/L 6-29 RAC (test code = RAC) Performing Organization Information: Site ID: [facility] Address: [address] [place] [address] Director: Robi Rodas Lab Interpretation (test Abnormal code = 46371-3) [place] [facility] [id number] 05:01:00 Test Item Value Reference Range Interpretation Comments Magnesium (test code 2.0 mg/dL 1.5-2.5 = 62014-5) RAC (test code = RAC) Performing Organization Information: Site ID: [facility] Address: [address] [place] [address] Director: Robi Rodas [place] MethodistThyroid stimulating [id number] 05:01:00 Test Item Value Reference Range Interpretation Comments TSH (test 2.98 See_Comment [Automated mes simran] code = The system whic h 3016-3) generated this result transmit danielle reference range : 0.40 - 4.50 mIU /L. The reference r john was not used to interpret this result as normal/abnormal . RAC (test Performing code = RAC) Organization Information: Site ID: [facility] Address: [address] [place] [address] Director: Robi Rodas [place] MethodistUrine [id number] 05:01:00 Test Item Value Reference Range Interpretation Comments Urine culture SEE NOTE CULTURE, UR INE, (test code = ROUTINE Aga ro 630-4) Number: [id number] Test Status: F inal Specimen Sourc e: URINE Specimen Quality: Adequ ate Result: Growth of mixed julisa was isola danielle, suggesting prob able contamination. No further testing will be perform ed. If clinically indicated, recollection us ing a method to minimize contamination, with prompt transfer to Urine Culture Transport Tube, is recommended. RAC (test code Performing = RAC) Organization Information: Site ID: [facility] Address: [address] [place], [place] [id number] Director: Robi Rodas [facility] with platelet and [id number] 05:01:00 Test Item Value Reference Range Interpretation Comments WBC (test code = 11.7 See_Comment H [Automated 6690-2) message] The system which generated this result transmitted reference range : 3.8 - 10.8 Thousand/uL. Th e reference range was not used to interpret this result as normal/abnormal . RBC (test code = 4.47 See_Comment [Automated 789-8) message] The system which generated this result transmitted reference range : 3.80 - 5.10 Million/uL. The reference range was not used to interpret this result as normal/abnormal . HGB (test code = 13.7 g/dL 11.7-15.5 718-7) HCT (test code = 40.4 % 35.0-45.0 4544-3) MCV (test code = 90.4 fL 80.0-100.0 787-2) MCH (test code = 30.6 pg 27.0-33.0 785-6) MCHC (test code = 33.9 g/dL 32.0-36.0 786-4) RDW (test code = 12.7 % 11.0-15.0 788-0) Platelet count (test 393 See_Comment [Autom ated code = 777-3) message] The system which generated this result transmitted reference range : 140 - 400 Thousand/uL. Th e reference range was not used to interpret this result as normal/abnormal . MPV (test code = 10.1 fL 7.5-12.5 776-5) Neutrophils, 9863 See_Comment H [Automated absolute (test code message] The = 751-8) system which generated this result transmitted reference range : 1,500 - 7,800 cells/uL. The reference range was not used to interpret this result as normal/abnormal . Lymphocytes, 1100 See_Comment [Automated absolute (test code message] The = 731-0) system which generated this result transmitted reference range : 850 - 3,900 cells/uL. The reference range was not used to interpret this result as normal/abnormal . Monocytes, absolute 714 See_Comment [Automa danielle (test code = 742-7) message] The system which generated this result transmitted reference range : 200 - 950 cells/uL. The reference range was not used to interpret this result as normal/abnormal . Eosinophils, 0 See_Comment L [Automated absolute (test code message] The = 711-2) system which generated this result transmitted reference range : 15 - 500 cells/uL. The reference range was not used to interpret this result as normal/abnormal . Basophils, absolute 23 See_Comment [Automa danielle (test code = 704-7) message] The system which generated this result transmitted reference range : 0 - 200 cells/u L. The reference range was not used to interpr et this result as normal/abnormal . Neutrophils (test 84.3 % code = 770-8) Lymphocytes (test 9.4 % code = 736-9) Monocytes (test code 6.1 % = 5905-5) Eosinophils (test 0.0 % code = 713-8) Basophils + RC (test 0.2 % code = 706-2) RAC (test code = Performing RAC) Organization Information: Site ID: [facility] Name: [facility] n Lab Address: [address] [place] [phone] Director: Robi Rodas Lab Interpretation Abnormal (test code = 44624-1) [place] MethodistURINALYSIS, COMPLETE, WITH REFLEX TO [id number] 05:01:00 Test Item Value Reference Range Interpretation Comments Color, UA (test code YELLOW YELLOW = 5778-6) Appearance (test CLEAR CLEAR code = 5767-9) Specific gravity, 1.015 1.001-1.035 urine (test code = 5811-5) pH, urine (test code 6.0 5.0-8.0 = 5803-2) Glucose, urine (test NEGATIVE NEGATIVE code = 94663-7) Bilirubin, UA (test NEGATIVE NEGATIVE code = 5770-3) Ketones, UA (test NEGATIVE NEGATIVE code = 2514-8) Occult blood, urine NEGATIVE NEGATIVE (test code = 5794-3) Protein, UA (test NEGATIVE NEGATIVE code = 26514-9) Nitrite, UA (test NEGATIVE NEGATIVE code = 5802-4) Leukocyte esterase, TRACE NEGATIVE A UA (test code = 5799-2) WBC, UA (test code = 0-5 See_Comment [Autom ated 3121-4) message] The system which generated this result transmitted reference range : < OR = 5 /HPF. The reference range was not used to interpr et this result as normal/abnormal . RBC, UA (test code = NONE SEEN See_Comment [Autom ated 70036-6) message] The system which generated this result transmitted reference range : < OR = 2 /HPF. The reference range was not used to interpr et this result as normal/abnormal . Squamous epithelial NONE SEEN See_Comment [Automa danielle cells, UA (test code message ] The = 46347-6) system which generated this result transmitted reference range : < OR = 5 /HPF. The reference range was not used to interpr et this result as normal/abnormal . Bacteria, UA (test NONE SEEN NONE SEEN /HPF code = 5769-5) Hyaline casts, UA NONE SEEN NONE SEEN /LPF (test code = 5796-8) RAC (test code = Performing RAC) Organization Information: Site ID: [facility] Name: [facility] n Lab Address: [address] [place] [phone] Director: Robi Rodas Lab Interpretation Abnormal (test code = 47832-0) [place] MethodistRight knee cortisone [id number] 13:50:00Adrianna Miranda MD 07/16/2020 8:03 AMRight knee cortisone injectionPerformed by: Adrianna Miranda MDAuthorized by: Adrianna Miranda MD Consent given by: PatientSite marked: the procedure site was marked Timeout: prior to procedure the correct patient, procedure, and site was verified Indications: PainLocation: KneeSite: R kneePrep: patient was prepped and draped in usual sterile fashion Ultrasound guided?: No Needle size (right): 25 G (25 gauge)Right side approach: AnteromedialRight side medications: 6 mg betamethasone acetate & sodium phosphate 6 mg/mL; 2 mL lidocaine 10 mg/mL (1 %)Right aspirate amount (ml): 0Patient tolerance (right): Patient tolerated the procedure well with no immediate [facility]Brown[facility] Breast Screen Tomosynthesis [id number] 16:11:40There is no mammographic evidence of malignancy. Continued monitoring of the clinical examination and annual mammography in 1 year is recommended. BI-RADS Category 1:Negative Workstation Name: [id number] A NEGATIVE X-RAY REPORT SHOULD NOT DELAY BIOPSY IF A DOMINANT OR CLINICALLY SUSPICIOUS MASS ISPRESENT. NOT ALL CANCERS ARE IDENTIFIED BY X-RAY. This study was interpreted by residential sales manager Massimo Gatica MD under the direct supervision of radiology attending Karma Woodson MD. Interface, Radiology Results Incoming - 03/01/2020 4:11 PM CST PROCEDURE:Bilateral Tomosynthesis Screening HISTORY:Patient is 84 years old and is seen for screening. The patient has no family history of breast cancer. FILMS COMPARED:This is a baseline study. MAMMOGRAM FINDINGS:The breast tissue is heterogeneously dense, which may obscure detection of smallmasses. No suspicious masses, calcifications or other abnormalities are seen. IMPRESSION:There is nomammographic evidence of malignancy. Continued monitoring of the clinical examination and annual gene mography in 1 year is recommended. BI-RADS Category 1:Negative Workstation Name: [id number] A NEGATIVE X-RAY REPORT SHOULD NOT DELAY BIOPSY IF A DOMINANT OR CLINICALLY SUSPICIOUS MASS IS PRESENT. NOT ALL CANCERS ARE IDENTIFIED BY X-RAY. This study was interpreted by residential sales manager Massimo Gatica MD under the direct supervision of radiology attending Karma Woodson MD.[facility]Lar [facility] Arthrocentesis: knee, R [id number] 16:15:00Adrianna Miranda MD 12/18/2019 9:29 AMLarge Joint Arthrocentesis: knee, R kneeConsent given by: kermit ientSupporting DocumentationIndications: pain Procedure DetailsUltrasound guided: noLocation: knee -R knee Right side:Needle size (right): 25G.Approach: anterolateralRight knee medications administered: 2 mL lidocaine 10 mg/mL (1 %); 6 mg betamethasone acetate & sodium phosphate 6 mg/mL (3mg betamethasone acet, sod phos 3mg/ml)Patient tolerance: patient tolerated the procedure well with no immediate complicationsWest [place] MethodistLipid [id number] 16:09:00 Test Item Value Reference Range Interpretation Comments Cholesterol, total 191 mg/dL <200 (test code = 2093-3) HDL cholesterol 52 mg/dL See_Comment [Automated (test code = 2084-) message ] The system which generated this result transmitted reference range : > OR = 50. The reference range was not used to interpret this result as normal/abnormal . Triglycerides (test 164 mg/dL <150 H code = 2571-8) LDL cholesterol 111 mg/dL (calc) H Reference ra nge: calculated (test <100 Desira ble code = 28927-5) range <100 m g/dL for primary prevention; <7 0 mg/dL for patients with C HD or diabetic patients with > or = 2 CHD risk factors. LDL-C is now calculated using the Pradeep calculation, which is a validated novel method providin g better accuracy than the Friedewald equation in the estimation of LDL-C. Geoff S S et al. MARY. 2013;310(19): 8968-8477 (http://educati on .[employer] .com/faq/RFH335 ) Cholesterol/HDL 3.7 See_Comment [Automated ratio (test code = message] The 9830-1) system which generated this result transmitted reference range : <5.0 (calc). Th e reference range was not used to interpret this result as normal/abnormal . Non-HDL cholesterol 139 See_Comment H For rolly ents with (test code = diabetes plus 1 35119-4) major ASCVD ris k factor, treatin g to a non-HDL-C goal of <100 mg/dL (LDL-C of <70 mg/dL) is considered a therapeutic option. [Automated message] The system which generated this result transmitted reference range : <130 mg/dL (calc). The reference range was not used to interpret this result as normal/abnormal . RAC (test code = Performing RAC) Organization Information: Site ID: [facility] Name: [facility] Lab Address: [address] [place] [phone] Director: Robi Rodas Lab Interpretation Abnormal (test code = 94900-6) [place] MethodistHemoglobin [id number] 16:09:00 Test Item Value Reference Range Interpretation Comments Hemoglobin A1C 5.5 See_Comment For the purpo se of (test code = screening for t he 4548-4) presence ofdiab etes: <5.7% Consistent with the absence of diabetes5.7-6.4 % Consistent with increased risk for diabetes (prediabetes)> or =6.5% Consiste nt with diabetes T his assay result is consistent with a decreased risko f diabetes. Curre ntly, no consensus ex ists regarding use ofhemoglobin A1 c for diagnosis of di abetes in children. According to [place] Diabetes Associ ation (ADA)guidelines , hemoglobin A1c <7.0% represents optimalcontrol in non- di abetic patients. Differentmetric s may apply to specif ic patient populat ions. Standards of [place] dical Care in Diabetes(ADA). [Automated mess age] The system [employer] generated this result transmitted ref erence range: <5.7 % o f total Hgb. The reference range was not used to int erpret this result as normal/abnormal . RAC (test code = Performing RAC) Organization Information: Site ID: [facility] Address: [address] [place] [address] Director: Robi MelendrezVitamin D 25 hydroxy [id number] 16:09:00 Test Item Value Reference Range Interpretation Comments Vitamin D, 55 ng/mL 30-100 Vitamin D Statu s 25-hydroxy 25-OH Susan min (test code = D: Deficiency: 1989-3) < 20 ng/mLInsufficie ncy: 20 - 29 ng/mLOptimal: > or = 30 ng/mL For 25-OH Vitamin D testi ng on patients on D2-supplementat ion and patients fo r whom quantitati on of D2 and D3 fractions is required, the QuestAssureD(TM )25- OH VIT D, (D2,D 3), LC/MS/MS is recommended: or cassia code 31380 (patients >2yrs).See Note 1 Note 1 For additional information, pl ease refer to http://educatio n.[employer]. com/ faq/OJA306 (Thi s link is being provided for informational/e duca tional purposes only.) RAC (test code Performing = RAC) Organization Information: Site ID: A [facility] Address: [address] [place] [phone] Director: Robi Rodas [place] MethodistTroponin I [id number] 12:00:00 Test Item Value Reference Range Interpretation Comments Troponin I (test code = 47430-7) 0.389 ng/mL [facility]oles/volume[facility]2019-09-25 04:50:00 Test Item Value Reference Range Interpretation Comments Sodium Level (test code = 39272-8) 139 mmol/L [facility] or plasma potassium measurement (moles/volume)2019-09-25 04:50:00 Test Item Value Reference Range Interpretation Comments Potassium Level (test code = 4.3 mmol/L 2823-3) [facility] or plasma chloride measurement (moles/volume) 2019-09-25 04:50:00 Test Item Value Reference Range Interpretation Comments Chloride Level (test code = 105 mmol/L 5-0) [facility] or plasma carbon dioxide measurement (moles/volume)2019-09-25 04:50:00 Test Item Value Reference Range Interpretation Comments Carbon Dioxide Level (test code = 27 mmol/L 2027-9) [facility] or plasma anion [id number] 04:50:00 Test Item Value Reference Range Interpretation Comments Anion Gap (test code = 00980-8) 7.0 mmol/L [facility] or plasma urea nitrogen measurement (mass/volume)2019-09-25 04:50:00 Test Item Value Reference Range Interpretation Comments Blood Urea Nitrogen (test code = 23.0 mg/dL 3094-0) [facility] or plasma creatinine measurement (mass/volume)2019-09-25 04:50:00 Test Item Value Reference Range Interpretation Comments Creatinine (test code = 2160-0) 0.958 mg/dL [facility] [id number] 04:50:00 Test Item Value Reference Range Interpretation Comments Estimat Glomerular Filtration Rate 56 (test code = 54699-9) [facility] or plasma glucose measurement (mass/volume) 2019-09-25 04:50:00 Test Item Value Reference Range Interpretation Comments Glucose Level (test code = 2345-7) 102 mg/dL [facility] or plasma calcium measurement (mass/volume) 2019-09-25 04:50:00 Test Item Value Reference Range Interpretation Comments Calcium Level (test code = 52325-6) 9.5 mg/dL [facility] or plasma creatine kinase MB measurement (mass/volume)2019-09-25 04:50:00 Test Item Value Reference Range Interpretation Comments Creatine Kinase MB (test code = 3.3 ng/mL 69631-8) [facility] or plasma C reactive protein measurement (mass/volume)2019-09-25 04:50:00 Test Item Value Reference Range Interpretation Comments C-Reactive Protein, Quantitative < 0.29 mg/dL (test code = 1988-5) [facility] Center[facility] blood leukocyte count (number/volume) 2019-09-25 04:50:00 Test Item Value Reference Range Interpretation Comments White Blood Count (test code = 7.7 10*3/uL 6690-2) [facility] (number/volume) 2019-09-25 04:50:00 Test Item Value Reference Range Interpretation Comments Red Blood Count (test code = 4.20 10*6/uL 789-8) [facility] (mass/volume) 2019-09-25 04:50:00 Test Item Value Reference Range Interpretation Comments Hemoglobin (test code = 718-7) 12.3 g/dL [facility] hematocrit (volume fraction) 2019-09-25 04:50:00 Test Item Value Reference Range Interpretation Comments Hematocrit (test code = 4544-3) 38.4 % [facility] CenterAutom[facility] erythrocyte mean corpuscular volume (MCV) [id number] 04:50:00 Test Item Value Reference Range Interpretation Comments Mean Corpuscular Volume (test code = 91.4 fL 787-2) [facility] Center[facility] erythrocyte mean corpuscular hemoglobin (mass per erythrocyte)2019-09-25 04:50:00 Test Item Value Reference Range Interpretation Comments Mean Corpuscular Hemoglobin (test 29.3 pg code = 785-6) [facility] Center[facility] erythrocyte mean corpuscular hemoglobin concentration (MCHC) measurement ([id number] 04:50:00 Test Item Value Reference Range Interpretation Comments Mean Corpuscular Hemoglobin Concent 32.0 % (test code = 786-4) [facility] Center[facility] erythrocyte distribution width ratio 2019-09-25 04:50:00 Test Item Value Reference Range Interpretation Comments Red Cell Distribution Width (test code 13.0 % = 788-0) [facility] platelet count (count/volume) 2019-09-25 04:50:00 Test Item Value Reference Range Interpretation Comments Platelet Count (test code = 287 10*3/uL 777-3) [facility] mean volume measurement 2019-09-25 04:50:00 Test Item Value Reference Range Interpretation Comments Mean Platelet Volume (test code = 10.2 fL 94294-6) [facility] neutrophil count as percentage of total phvqrcdgko6051-07-43 04:50:00 Test Item Value Reference Range Interpretation Comments Neutrophils (%) (Auto) (test code = 67.2 % 770-8) [facility] immature granulocyte count as percentage of total glfjuwonmp3650-01-08 04:50:00 Test Item Value Reference Range Interpretation Comments Immature Granulocyte % (Auto) (test 0.50 % code = 06828-2) [facility] lymphocyte count as percentage of total qqpwdymlts5722-25-44 04:50:00 Test Item Value Reference Range Interpretation Comments Lymphocytes (%) (Auto) (test code = 20.4 % 736-9) [facility] monocyte count as percentage of total qdelscgpgx6519-50-19 04:50:00 Test Item Value Reference Range Interpretation Comments Monocytes (%) (Auto) (test code = 8.0 % 5905-5) [facility] eosinophil count as percentage of total tyrkwazbmu1090-32-89 04:50:00 Test Item Value Reference Range Interpretation Comments Eosinophils (%) (Auto) (test code = 3.1 % 713-8) [facility] basophil count as percentage of total eidcqrxldn4846-56-86 04:50:00 Test Item Value Reference Range Interpretation Comments Basophils (%) (Auto) (test code = 0.8 % 706-2) [facility] Center[facility] blood nucleated erythrocyte count as percentage of total afkjxgnhey5976-36-29 04:50:00 Test Item Value Reference Range Interpretation Comments Nucleated Red Blood Cells % (test code 0.0 % = 25974-3) [facility] neutrophil count (number/volume) 2019-09-25 04:50:00 Test Item Value Reference Range Interpretation Comments Neutrophils # (Auto) (test code = 5.2 10*3/uL 751-8) [facility] immature granulocyte count as percentage of total siyfttwqpb2539-96-08 04:50:00 Test Item Value Reference Range Interpretation Comments Immature Granulocyte # (Auto) (test 0.0400 code = 76185-1) [facility] lymphocyte count (number/volume) 2019-09-25 04:50:00 Test Item Value Reference Range Interpretation Comments Lymphocytes # (Auto) (test code = 1.6 10*3/uL 731-0) [facility] monocytes automated count (number/volume) 2019-09-25 04:50:00 Test Item Value Reference Range Interpretation Comments Monocytes # (Auto) (test code = 0.6 10*3/uL 742-7) [facility] eosinophil oybji4834-96-60 04:50:00 Test Item Value Reference Range Interpretation Comments Eosinophils # (Auto) (test code = 0.2 10*3/uL 711-2) [facility] basophil count (number/volume) 2019-09-25 04:50:00 Test Item Value Reference Range Interpretation Comments Basophils # (Auto) (test code = 0.1 10*3/uL 704-7) [facility] leukocyte count corrected for nucleated xhbbhnnohecu1829-51-69 04:50:00 Test Item Value Reference Range Interpretation Comments Nucleated Red Blood Cells # (test code 0.000 = 93874-2) [facility] erythrocyte sedimentation rate (ESR) measurement by photometricmethod (length/t0947-91-14 04:50:00 Test Item Value Reference Range Interpretation Comments Erythrocyte Sedimentation Rate (test 7 mm/h code = 88254-5) [facility] or plasma magnesium measurement (mass/volume) 2019-09-24 22:42:00 Test Item Value Reference Range Interpretation Comments Magnesium Level (test code = 2.3 mg/dL 49361-7) [facility] or plasma total bilirubin measurement (mass/volume)2019-09-24 22:42:00 Test Item Value Reference Range Interpretation Comments Total Bilirubin (test code = 0.4 mg/dL 1975-2) [facility] or plasma aspartate aminotransferase measurement (enzymatic activity/volume)2019-09-24 22:42:00 Test Item Value Reference Range Interpretation Comments Aspartate Amino Transf (AST/SGOT) 27 U/L (test code = 1920-8) [facility] or plasma alanine aminotransferase measurement (enzymatic activity/volume)2019-09-24 22:42:00 Test Item Value Reference Range Interpretation Comments Alanine Aminotransferase (ALT/SGPT) 29 U/L (test code = 1742-6) [facility] or plasma protein measurement (mass/volume) 2019-09-24 22:42:00 Test Item Value Reference Range Interpretation Comments Total Protein (test code = 2885-2) 8.1 g/dL [facility] or plasma albumin measurement (mass/volume) 2019-09-24 22:42:00 Test Item Value Reference Range Interpretation Comments Albumin (test code = 1751-7) 4.3 g/dL [facility] or plasma alkaline phosphatase measurement (enzymatic activity/volume)2019-09-24 22:42:00 Test Item Value Reference Range Interpretation Comments Alkaline Phosphatase (test code = 53 U/L 6768-6) [facility][id number] 22:42:00 Test Item Value Reference Range Interpretation Comments Lactic Acid Level (test code = 1.0 mmol/L 2524-7) [facility] or plasma creatine kinase measurement (enzymatic activity/volume)2019-09-24 22:42:00 Test Item Value Reference Range Interpretation Comments Total Creatine Kinase (test code = 413 U/L 2157-6) [facility] total creatine kinase/creatine kinase MB isoenzyme activity [id number] 22:42:00 Test Item Value Reference Range Interpretation Comments Creatine Kinase MB Relative Index (test 0.5 % code = 2158-4) [facility] [id number] 22:42:00 Test Item Value Reference Range Interpretation Comments Troponin I (test code = 34297-8) 0.059 ng/mL [facility] or plasma brain natriuretic peptide (BNP) [id number] 22:42:00 Test Item Value Reference Range Interpretation Comments B-Type Natriuretic Peptide (test 40 pg/mL code = 38343-8) [facility] or plasma thyrotropin measurement by detection limit <=0.005 miu/l (units/[id number] 22:42:00 Test Item Value Reference Range Interpretation Comments Thyroid Stimulating Hormone 7.670 u[iU]/mL (TSH) (test code = 50646-4) [facility] or plasma procalcitonin measurement (mass/volume)2019-09-24 22:42:00 Test Item Value Reference Range Interpretation Comments Procalcitonin (test code = < 0.05 ng/mL 34836-0) [facility] prothrombin [id number] 22:42:00 Test Item Value Reference Range Interpretation Comments Prothrombin Time (test code = 5964-2) 11.4 s [facility] Platelet poor plasma by Coagulation assay 2019-09-24 22:42:00 Test Item Value Reference Range Interpretation Comments Prothromb Time International Ratio 1.0 {INR} (test code = 6301-6) [facility] (PTT) in platelet poor [id number] 22:42:00 Test Item Value Reference Range Interpretation Comments Activated Partial Thromboplast Time 31.7 s (test code = 10157-7) [facility] CenterFibrin D-dimer FEU [id number] 22:42:00 Test Item Value Reference Range Interpretation Comments D-Dimer (test code = 78927-9) 262 ng/mL{FEU} [facility] erythrocytes detection by automated method 2019-09-24 22:33:00 Test Item Value Reference Range Interpretation Comments Urine Occult Blood (test code = Negative 30583-9) [facility] nitrite ejzvdzqsgsk8528-65-49 22:33:00 Test Item Value Reference Range Interpretation Comments Urine Nitrite (test code = 04554-9) Negative [facility] total bilirubin detection by automated test [id number] 22:33:00 Test Item Value Reference Range Interpretation Comments Urine Bilirubin (test code = Negative 65462-1) [facility] urine urobilinogen qgzmeigrisj7515-97-08 22:33:00 Test Item Value Reference Range Interpretation Comments Urine Urobilinogen (test code = Normal mg/dL 50251884) [facility] leukocytes detection by automated method 2019-09-24 22:33:00 Test Item Value Reference Range Interpretation Comments Urine Leukocyte Esterase (test 250 {Marianna}/uL code = 89781-1) [facility] CenterAutom[facility] erythrocytes count in urine sediment (number/area)2019-09-24 22:33:00 Test Item Value Reference Range Interpretation Comments Urine RBC (test code = 91671-3) 0-2 /[HPF] [facility] count in urine sediment (number/area)2019-09-24 22:33:00 Test Item Value Reference Range Interpretation Comments Urine WBC (test code = 56258-2) 10-20 /[HPF] [facility]Autom[facility] squamous epithelial cells count in urine sediment (number/area)2019-09-24 22:33:00 Test Item Value Reference Range Interpretation Comments Urine Squamous Epithelial Cells Rare /[LPF] (test code = 10170-4) [facility] sediment crystal count (number/area)2019-09-24 22:33:00 Test Item Value Reference Range Interpretation Comments Urine Other Crystals (test +/- Rare /[LPF] code = 38001-3) [facility] count in urine sediment (number/area)2019-09-24 22:33:00 Test Item Value Reference Range Interpretation Comments Urine Bacteria (test code = None /[HPF] 17934-7) [facility] mucus count in urine sediment (number/area)2019-09-24 22:33:00 Test Item Value Reference Range Interpretation Comments Urine Mucus (test code = 40518-3) +/- /[LPF] [facility] yeast count (number/area)2019-09-24 22:33:00 Test Item Value Reference Range Interpretation Comments Urine Yeast (Budding) (test code Rare /[HPF] = 81549-2) [facility] [id number] 22:33:00 Test Item Value Reference Range Interpretation Comments Urine Culture Indicated Yes, Criteria Met (test code = 8264-4) [facility] urine [id number] 22:33:00 Test Item Value Reference Range Interpretation Comments Urine Culture (test No growth in 18-24 code = 630-4) hours [facility] color [id number] 22:33:00 Test Item Value Reference Range Interpretation Comments Urine Color (test code = 42270-3) Yellow [facility] CenterCl[facility] in Urine by Refractometry automated 2019-09-24 22:33:00 Test Item Value Reference Range Interpretation Comments Urine Appearance (test code = 12196-3) Clear [facility] pH measurement by test [id number] 22:33:00 Test Item Value Reference Range Interpretation Comments Urine pH (test code = 5803-2) 7.5 [pH] [facility] specific gravity by refractometry 2019-09-24 22:33:00 Test Item Value Reference Range Interpretation Comments Urine Specific [place] (test code = 1.009 25325-3) [facility] protein qvlezfbmdre1765-48-34 22:33:00 Test Item Value Reference Range Interpretation Comments Urine Protein (test code = Negative mg/dL 12761165) [facility] glucose [id number] 22:33:00 Test Item Value Reference Range Interpretation Comments Urine Glucose (UA) (test code Negative mg/dL = 07872-5) [facility] CenterU[facility] ketones detection by automated test strip 2019-09-24 22:33:00 Test Item Value Reference Range Interpretation Comments Urine Ketones (test code = Negative mg/dL 01634-9) [facility] CenterUrinalysis, automated with [id number] 23:29:00 Test Item Value Reference Range Interpretation Comments Color, UA (test code DARK YELLOW YELLOW = 5778-6) Appearance (test CLEAR CLEAR code = 5767-9) Specific gravity, 1.009 1.001-1.035 urine (test code = 5811-5) pH, urine (test code 7.0 5.0-8.0 = 5803-2) Glucose, urine (test NEGATIVE NEGATIVE code = 50695-2) Bilirubin, UA (test NEGATIVE NEGATIVE code = 5770-3) Ketones, UA (test NEGATIVE NEGATIVE code = 2514-8) Occult blood, urine NEGATIVE NEGATIVE (test code = 5794-3) Protein, UA (test NEGATIVE NEGATIVE code = 82817-1) Nitrite, UA (test NEGATIVE NEGATIVE code = 5802-4) Leukocyte esterase, 1+ NEGATIVE A UA (test code = 5799-2) WBC, UA (test code = 0-5 See_Comment [Autom ated 5821-4) message] The system which generated this result transmitted reference range : < OR = 5 /HPF. The reference range was not used to interpr et this result as normal/abnormal . RBC, UA (test code = NONE SEEN See_Comment [Autom ated 95022-7) message] The system which generated this result transmitted reference range : < OR = 2 /HPF. The reference range was not used to interpr et this result as normal/abnormal . Squamous epithelial 0-5 See_Comment [Automa danielle cells, UA (test code message ] The = 44906-2) system which generated this result transmitted reference range : < OR = 5 /HPF. The reference range was not used to interpr et this result as normal/abnormal . Bacteria, UA (test NONE SEEN NONE SEEN /HPF code = 5769-5) Hyaline casts, UA NONE SEEN NONE SEEN /LPF (test code = 5796-8) RAC (test code = Performing RAC) Organization Information: Site ID: [id number] [facility] Address: [address] [place] [address] Director: Robi Rodas Lab Interpretation Abnormal (test code = 03617-2) [facility] urinalysis [id number] 11:25:00 Test Item Value Reference Range Interpretation Comments Color urine, POC (test Yellow code = 0307683) Clarity urine, POC (test Clear code = 8397159) Glucose urine, POC (test Negative Negative code = 0503705) Bilirubin urine, POC Negative Negative (test code = 7678912) Ketones urine, POC (test Negative Negative code = 6356782) Specific gravity urine, 1.010 1.005-1.030 POC (test code = 7669759) Blood urine, POC (test Negative Negative code = 8804103) pH urine, POC (test code 7.0 See_Comment [A utomated message] = 4652154) The system [employer] generated this result transmitted ref erence range: 5.0, 5.5 , 6.0, 6.5, 7.0, 7.5, 8.0, 8.5. The refere nce range was not u sed to interpret this result as normal/abnor mal. Protein urine, POC (test Negative Negative code = 5146806) Urobilinogen urine, POC <2.0 <2.0 (test code = 1989020) Nitrite urine, POC (test Negative Negative code = 9457320) Leukocyte esterase Trace Negative A urine, POC (test code = 0444029) Lab Interpretation (test Abnormal code = 83751-2) [facility] METABOLIC [id number] 02:06:00 Test Item Value Reference Range Interpretation Comments SODIUM (test code = 127 MMOL/L 137-145 L NA) POTASSIUM (test code = 3.1 MMOL/L 3.5-5.1 L K) CHLORIDE (test code = 88 MMOL/L 98-107 L CL) CARBON DIOXIDE (test 37 MMOL/L 22-30 H code = CO2) ANION GAP (test code = 5 MMOL/L 14-24 L GAP) GLUCOSE (test code = MG/DL 74-106 GLU) BLOOD UREA NITROGEN MG/DL 7-17 (test code = BUN) GLOMERULAR FILTRATION 60 Report ing units: RATE (test code = GFR) ml/mi n/1.73 m2 (Modified MDRD Formula)Referen ce Range: > or = 6 0 ml/min/1.73 m2 CREATININE (test code 0.90 MG/DL 0.52-1.04 N = CREAT) CALCIUM (test code = MG/DL 8.7-9.7 CA) [id number] 02:06:00 Test Item Value Reference Range Interpretation Comments MAGNESIUM (test code = MAG) MG/DL 1.6-2.3 BASIC METABOLIC [id number] 02:06:00 Test Item Value Reference Range Interpretation Comments SODIUM (test code = 127 MMOL/L 137-145 L NA) POTASSIUM (test code = 3.1 MMOL/L 3.5-5.1 L K) CHLORIDE (test code = 88 MMOL/L 98-107 L CL) CARBON DIOXIDE (test 37 MMOL/L 22-30 H code = CO2) ANION GAP (test code = 5 MMOL/L 14-24 L GAP) GLUCOSE (test code = 132 MG/DL 74-106 H GLU) BLOOD UREA NITROGEN 17 MG/DL 7-17 N (test code = BUN) GLOMERULAR FILTRATION 60 Report ing units: RATE (test code = GFR) ml/mi n/1.73 m2 (Modified MDRD Formula)Referen ce Range: > or = 6 0 ml/min/1.73 m2 CREATININE (test code 0.90 MG/DL 0.52-1.04 N = CREAT) CALCIUM (test code = MG/DL 8.7-9.7 CA) [id number] 02:06:00 Test Item Value Reference Range Interpretation Comments MAGNESIUM (test code = MAG) MG/DL 1.6-2.3 BASIC METABOLIC [id number] 02:06:00 Test Item Value Reference Range Interpretation Comments SODIUM (test code = 127 MMOL/L 137-145 L NA) POTASSIUM (test code = 3.1 MMOL/L 3.5-5.1 L K) CHLORIDE (test code = 88 MMOL/L 98-107 L CL) CARBON DIOXIDE (test 37 MMOL/L 22-30 H code = CO2) ANION GAP (test code = 5 MMOL/L 14-24 L GAP) GLUCOSE (test code = 132 MG/DL 74-106 H GLU) BLOOD UREA NITROGEN 17 MG/DL 7-17 N (test code = BUN) GLOMERULAR FILTRATION 60 Report ing units: RATE (test code = GFR) ml/mi n/1.73 m2 (Modified MDRD Formula)Referen ce Range: > or = 6 0 ml/min/1.73 m2 CREATININE (test code 0.90 MG/DL 0.52-1.04 N = CREAT) CALCIUM (test code = 10.3 MG/DL 8.4-10.2 H CA) [id number] 02:06:00 Test Item Value Reference Range Interpretation Comments MAGNESIUM (test code = MAG) MG/DL 1.6-2.3 BASIC METABOLIC [id number] 02:06:00 Test Item Value Reference Range Interpretation Comments SODIUM (test code = 127 MMOL/L 137-145 L NA) POTASSIUM (test code = 3.1 MMOL/L 3.5-5.1 L K) CHLORIDE (test code = 88 MMOL/L 98-107 L CL) CARBON DIOXIDE (test 37 MMOL/L 22-30 H code = CO2) ANION GAP (test code = 5 MMOL/L 14-24 L GAP) GLUCOSE (test code = 132 MG/DL 74-106 H GLU) BLOOD UREA NITROGEN 17 MG/DL 7-17 N (test code = BUN) GLOMERULAR FILTRATION 60 Report ing units: RATE (test code = GFR) ml/mi n/1.73 m2 (Modified MDRD Formula)Referen ce Range: > or = 6 0 ml/min/1.73 m2 CREATININE (test code 0.90 MG/DL 0.52-1.04 N = CREAT) CALCIUM (test code = 10.3 MG/DL 8.4-10.2 H CA) [id number] 02:06:00 Test Item Value Reference Range Interpretation Comments MAGNESIUM (test code = MAG) 1.7 MG/DL 1.6-2.3 BASIC METABOLIC [id number] 02:03:00 Test Item Value Reference Range Interpretation Comments SODIUM (test code = NA) 127 MMOL/L 137-145 L POTASSIUM (test code = K) 3.1 MMOL/L 3.5-5.1 L CHLORIDE (test code = CL) 88 MMOL/L 98-107 L CARBON DIOXIDE (test code = CO2) MMOL/L 22-30 GLUCOSE (test code = GLU) MG/DL 74-106 BLOOD UREA NITROGEN (test code = MG/DL 7-17 BUN) GLOMERULAR FILTRATION RATE (test code = GFR) CREATININE (test code = CREAT) MG/DL 0.52-1.04 CALCIUM (test code = CA) MG/DL 8.7-9.7 [id number] 02:03:00 Test Item Value Reference Range Interpretation Comments MAGNESIUM (test code = MAG) MG/DL 1.6-2.3 CBC W/AUTO [id number] 01:51:00 Test Item Value Reference Range Interpretation Comments WHITE BLOOD CELL (test code = 9.1 K/MM3 3.8-9.8 N WBC) RED BLOOD CELL (test code = 3.49 M/MM3 3.58-4.97 L RBC) HEMOGLOBIN (test code = HGB) 10.8 G/DL 11.2-14.9 L HEMATOCRIT (test code = HCT) 31.8 % 33.2-43.5 L MEAN CELL VOLUME (test code = 91 fL 80.7-99.1 N MCV) MEAN CELL HGB (test code = MCH) 30.9 pg 27.0-34.1 N MEAN CELL HGB CONCETRATION 34.0 % 32.2-35.7 N (test code = MCHC) RED CELL DISTRIBUTION WIDTH 13.3 % 12.1-15.2 N (test code = RDW) PLATELET COUNT (test code = 331 K/MM3 129-368 N PLT) MEAN PLATELET VOLUME (test code 10.2 fl 7.4-10.4 N = MPV) NEUTROPHIL % (test code = NT%) 72.6 % 43-75 N IMMATURE GRANULOCYTE % (test 0.3 % 0.0-2.0 N code = IG%) LYMPHOCYTE % (test code = LY%) 13.5 % 14-44 L MONOCYTE % (test code = MO%) 11.1 % 4-13 N EOSINOPHIL % (test code = EO%) 2.0 % 0-6 N BASOPHIL % (test code = BA%) 0.5 % 0-2 N NUCLEATED RBC % (test code = 0.0 % 0-1.0 N NRBC%) NEUTROPHIL # (test code = NT#) 6.62 K/mm3 2.0-7.6 N IMMATURE GRANULOCYTE # (test 0.03 x10 3/uL 0-0.03 N code = IG#) LYMPHOCYTE # (test code = LY#) 1.23 K/mm3 1.0-3.8 N MONOCYTE # (test code = MO#) 1.01 K/mm3 0.1-0.8 H EOSINOPHIL # (test code = EO#) 0.18 K/mm3 0.0-0.2 N BASOPHIL # (test code = BA#) 0.05 K/mm3 0.0-0.2 N NUCLEATED RBC # (test code = 0.00 K/mm3 0.0-0.1 N NRBC#) - XR CHEST [id number] 11:06:00 Patient Name: DEBI GARRETT Unit No: [id number] EXAMS: CPT CODE: [id number] XR CHEST 1V [id number] Site ID: [id number] HISTORY: Pneumothorax COMPARISON: Chest x-ray August 08, 2019 FINDINGS: Less than 5% residual left apical pneumothorax, platelike left mid lung atelectasis. Otherwise the lungs are clear. The heart and pulmonary vasculature is normal. Left subclavian line terminates appropriately. Osseous structures are unremarkable. IMPRESSION: Less than 5% residual left apical pneumothorax, platelike left mid lung atelectasis at 1106 Reported and signedby: Laith Salcido MD CC: Poli Aaron; Abdulaziz Epps Technologist: Willie Santana (RT) Transcrpt Date/Tm/Trnsp: 08/10/2019 (1106) [email or web address] Orig Print D/T: S: 08/10/2019 (1110) [facility] NAME: DEBI GARRETT [id number] PHYS: [place] [address] : 1935 AGE: 84 SEX: F LOC: [id number].[id number] A PHONE #: [phone] EXAM DATE: 08/10/2019 STATUS: ADM IN FAX #: [phone] RADIOLOGY NO: PAGE 1 Signed ReportBASIC METABOLIC [id number] 05:07:00 Test Item Value Reference Range Interpretation Comments SODIUM (test code = 132 MMOL/L 137-145 L NA) POTASSIUM (test code = 3.7 MMOL/L 3.5-5.1 N K) CHLORIDE (test code = 92 MMOL/L 98-107 L CL) CARBON DIOXIDE (test 37 MMOL/L 22-30 H code = CO2) GLUCOSE (test code = 124 MG/DL 74-106 H GLU) BLOOD UREA NITROGEN 20 MG/DL 7-17 H (test code = BUN) GLOMERULAR FILTRATION 47 Report ing units: RATE (test code = GFR) ml/mi n/1.73 m2 (Modified MDRD Formula)Referen ce Range: > or = 6 0 ml/min/1.73 m2 CREATININE (test code 1.10 MG/DL 0.52-1.04 H = CREAT) CALCIUM (test code = 10.6 MG/DL 8.4-10.2 H CA) [id number] 05:07:00 Test Item Value Reference Range Interpretation Comments PHOSPHOROUS (test code = PHOS) 3.3 MG/DL 2.5-4.5 N [id number] 05:07:00 Test Item Value Reference Range Interpretation Comments MAGNESIUM (test code = MAG) 2.2 MG/DL 1.6-2.3 BASIC METABOLIC [id number] 05:04:00 Test Item Value Reference Range Interpretation Comments SODIUM (test code = 132 MMOL/L 137-145 L NA) POTASSIUM (test code = 3.7 MMOL/L 3.5-5.1 N K) CHLORIDE (test code = 92 MMOL/L 98-107 L CL) CARBON DIOXIDE (test 37 MMOL/L 22-30 H code = CO2) GLUCOSE (test code = 124 MG/DL 74-106 H GLU) BLOOD UREA NITROGEN 20 MG/DL 7-17 H (test code = BUN) GLOMERULAR FILTRATION 47 Report ing units: RATE (test code = GFR) ml/mi n/1.73 m2 (Modified MDRD Formula)Referen ce Range: > or = 6 0 ml/min/1.73 m2 CREATININE (test code 1.10 MG/DL 0.52-1.04 H = CREAT) CALCIUM (test code = MG/DL 8.7-9.7 CA) [id number] 05:04:00 Test Item Value Reference Range Interpretation Comments PHOSPHOROUS (test code = PHOS) MG/DL 2.5-4.5 [id number] 05:04:00 Test Item Value Reference Range Interpretation Comments MAGNESIUM (test code = MAG) MG/DL 1.6-2.3 BASIC METABOLIC [id number] 05:01:00 Test Item Value Reference Range Interpretation Comments SODIUM (test code = NA) 132 MMOL/L 137-145 L POTASSIUM (test code = K) 3.7 MMOL/L 3.5-5.1 N CHLORIDE (test code = CL) 92 MMOL/L 98-107 L CARBON DIOXIDE (test code = CO2) MMOL/L 22-30 GLUCOSE (test code = GLU) MG/DL 74-106 BLOOD UREA NITROGEN (test code = MG/DL 7-17 BUN) GLOMERULAR FILTRATION RATE (test code = GFR) CREATININE (test code = CREAT) MG/DL 0.52-1.04 CALCIUM (test code = CA) MG/DL 8.7-9.7 [id number] 05:01:00 Test Item Value Reference Range Interpretation Comments PHOSPHOROUS (test code = PHOS) MG/DL 2.5-4.5 [id number] 05:01:00 Test Item Value Reference Range Interpretation Comments MAGNESIUM (test code = MAG) MG/DL 1.6-2.3 CBC W/AUTO [id number] 04:48:00 Test Item Value Reference Range Interpretation Comments WHITE BLOOD CELL (test code = 8.7 K/MM3 3.8-9.8 N WBC) RED BLOOD CELL (test code = 3.56 M/MM3 3.58-4.97 L RBC) HEMOGLOBIN (test code = HGB) 10.8 G/DL 11.2-14.9 L HEMATOCRIT (test code = HCT) 32.8 % 33.2-43.5 L MEAN CELL VOLUME (test code = 92 fL 80.7-99.1 N MCV) MEAN CELL HGB (test code = MCH) 30.3 pg 27.0-34.1 N MEAN CELL HGB CONCETRATION 32.9 % 32.2-35.7 N (test code = MCHC) RED CELL DISTRIBUTION WIDTH 13.4 % 12.1-15.2 N (test code = RDW) PLATELET COUNT (test code = 286 K/MM3 129-368 N PLT) MEAN PLATELET VOLUME (test code 10.2 fl 7.4-10.4 N = MPV) NEUTROPHIL % (test code = NT%) 75.7 % 43-75 H IMMATURE GRANULOCYTE % (test 0.5 % 0.0-2.0 N code = IG%) LYMPHOCYTE % (test code = LY%) 12.6 % 14-44 L MONOCYTE % (test code = MO%) 9.6 % 4-13 N EOSINOPHIL % (test code = EO%) 1.3 % 0-6 N BASOPHIL % (test code = BA%) 0.3 % 0-2 N NUCLEATED RBC % (test code = 0.0 % 0-1.0 N NRBC%) NEUTROPHIL # (test code = NT#) 6.57 K/mm3 2.0-7.6 N IMMATURE GRANULOCYTE # (test 0.04 x10 3/uL 0-0.03 H code = IG#) LYMPHOCYTE # (test code = LY#) 1.09 K/mm3 1.0-3.8 N MONOCYTE # (test code = MO#) 0.83 K/mm3 0.1-0.8 H EOSINOPHIL # (test code = EO#) 0.11 K/mm3 0.0-0.2 N BASOPHIL # (test code = BA#) 0.03 K/mm3 0.0-0.2 N NUCLEATED RBC # (test code = 0.00 K/mm3 0.0-0.1 N NRBC#) BASIC METABOLIC [id number] 23:31:00 Test Item Value Reference Range Interpretation Comments SODIUM (test code = 130 MMOL/L 137-145 L NA) POTASSIUM (test code = 3.3 MMOL/L 3.5-5.1 L K) CHLORIDE (test code = 93 MMOL/L 98-107 L CL) CARBON DIOXIDE (test 32 MMOL/L 22-30 H code = CO2) GLUCOSE (test code = 139 MG/DL 74-106 H GLU) BLOOD UREA NITROGEN 23 MG/DL 7-17 H (test code = BUN) GLOMERULAR FILTRATION 53 Report ing units: RATE (test code = GFR) ml/mi n/1.73 m2 (Modified MDRD Formula)Referen ce Range: > or = 6 0 ml/min/1.73 m2 CREATININE (test code 1.00 MG/DL 0.52-1.04 N = CREAT) CALCIUM (test code = 10.1 MG/DL 8.4-10.2 N CA) [id number] 23:31:00 Test Item Value Reference Range Interpretation Comments MAGNESIUM (test code = MAG) 1.8 MG/DL 1.6-2.3 N BASIC METABOLIC [id number] 23:28:00 Test Item Value Reference Range Interpretation Comments SODIUM (test code = 130 MMOL/L 137-145 L NA) POTASSIUM (test code = 3.3 MMOL/L 3.5-5.1 L K) CHLORIDE (test code = 93 MMOL/L 98-107 L CL) CARBON DIOXIDE (test 32 MMOL/L 22-30 H code = CO2) GLUCOSE (test code = MG/DL 74-106 GLU) BLOOD UREA NITROGEN 23 MG/DL 7-17 H (test code = BUN) GLOMERULAR FILTRATION 53 Report ing units: RATE (test code = GFR) ml/mi n/1.73 m2 (Modified MDRD Formula)Referen ce Range: > or = 6 0 ml/min/1.73 m2 CREATININE (test code 1.00 MG/DL 0.52-1.04 N = CREAT) CALCIUM (test code = MG/DL 8.7-9.7 CA) [id number] 23:28:00 Test Item Value Reference Range Interpretation Comments MAGNESIUM (test code = MAG) MG/DL 1.6-2.3 BASIC METABOLIC [id number] 23:25:00 Test Item Value Reference Range Interpretation Comments SODIUM (test code = NA) 130 MMOL/L 137-145 L POTASSIUM (test code = K) 3.3 MMOL/L 3.5-5.1 L CHLORIDE (test code = CL) 93 MMOL/L 98-107 L CARBON DIOXIDE (test code = CO2) MMOL/L 22-30 GLUCOSE (test code = GLU) MG/DL 74-106 BLOOD UREA NITROGEN (test code = MG/DL 7-17 BUN) GLOMERULAR FILTRATION RATE (test code = GFR) CREATININE (test code = CREAT) MG/DL 0.52-1.04 CALCIUM (test code = CA) MG/DL 8.7-9.7 [id number] 23:25:00 Test Item Value Reference Range Interpretation Comments MAGNESIUM (test code = MAG) MG/DL 1.6-2.3 BASIC METABOLIC [id number] 22:21:00 Test Item Value Reference Range Interpretation Comments SODIUM (test code = 129 MMOL/L 137-145 L NA) POTASSIUM (test code = 2.9 MMOL/L 3.5-5.1 L CASTRO D TO TED Bae) READBACK ON AT 2220 BY [place] Garcia CHLORIDE (test code = 94 MMOL/L 98-107 L CL) CARBON DIOXIDE (test 31 MMOL/L 22-30 H code = CO2) ANION GAP (test code = 7 MMOL/L 14-24 L GAP) GLUCOSE (test code = 120 MG/DL 74-106 H GLU) BLOOD UREA NITROGEN 24 MG/DL 7-17 H (test code = BUN) GLOMERULAR FILTRATION 47 Report ing units: RATE (test code = GFR) ml/mi n/1.73 m2 (Modified MDRD Formula)Referen ce Range: > or = 6 0 ml/min/1.73 m2 CREATININE (test code 1.10 MG/DL 0.52-1.04 H = CREAT) CALCIUM (test code = 9.3 MG/DL 8.4-10.2 N CA) [id number] 22:21:00 Test Item Value Reference Range Interpretation Comments MAGNESIUM (test code = MAG) 1.6 MG/DL 1.6-2.3 N BASIC METABOLIC [id number] 21:36:00 Test Item Value Reference Range Interpretation Comments SODIUM (test code = NA) MMOL/L 137-145 POTASSIUM (test code = K) MMOL/L 3.5-5.1 CHLORIDE (test code = CL) MMOL/L 98-107 CARBON DIOXIDE (test code = CO2) 31 MMOL/L 22-30 H GLUCOSE (test code = GLU) 120 MG/DL 74-106 H BLOOD UREA NITROGEN (test code = 24 MG/DL 7-17 H BUN) GLOMERULAR FILTRATION RATE (test code = GFR) CREATININE (test code = CREAT) MG/DL 0.52-1.04 CALCIUM (test code = CA) 9.3 MG/DL 8.4-10.2 N [id number] 21:36:00 Test Item Value Reference Range Interpretation Comments MAGNESIUM (test code = MAG) 1.6 MG/DL 1.6-2.3 N BASIC METABOLIC [id number] 21:35:00 Test Item Value Reference Range Interpretation Comments SODIUM (test code = NA) MMOL/L 137-145 POTASSIUM (test code = K) MMOL/L 3.5-5.1 CHLORIDE (test code = CL) MMOL/L 98-107 CARBON DIOXIDE (test code = CO2) 31 MMOL/L 22-30 H GLUCOSE (test code = GLU) 120 MG/DL 74-106 H BLOOD UREA NITROGEN (test code = 24 MG/DL 7-17 H BUN) GLOMERULAR FILTRATION RATE (test code = GFR) CREATININE (test code = CREAT) MG/DL 0.52-1.04 CALCIUM (test code = CA) MG/DL 8.7-9.7 [id number] 21:35:00 Test Item Value Reference Range Interpretation Comments MAGNESIUM (test code = MAG) MG/DL 1.6-2.3 CBC W/AUTO [id number] 21:25:00 Test Item Value Reference Range Interpretation Comments WHITE BLOOD CELL (test code = 9.1 K/MM3 3.8-9.8 N WBC) RED BLOOD CELL (test code = 2.98 M/MM3 3.58-4.97 L RBC) HEMOGLOBIN (test code = HGB) 9.2 G/DL 11.2-14.9 L HEMATOCRIT (test code = HCT) 27.8 % 33.2-43.5 L MEAN CELL VOLUME (test code = 93 fL 80.7-99.1 N MCV) MEAN CELL HGB (test code = MCH) 30.9 pg 27.0-34.1 N MEAN CELL HGB CONCETRATION 33.1 % 32.2-35.7 N (test code = MCHC) RED CELL DISTRIBUTION WIDTH 13.8 % 12.1-15.2 N (test code = RDW) PLATELET COUNT (test code = 268 K/MM3 129-368 N PLT) MEAN PLATELET VOLUME (test code 10.3 fl 7.4-10.4 N = MPV) NEUTROPHIL % (test code = NT%) 71.0 % 43-75 N IMMATURE GRANULOCYTE % (test 0.3 % 0.0-2.0 N code = IG%) LYMPHOCYTE % (test code = LY%) 14.5 % 14-44 N MONOCYTE % (test code = MO%) 12.9 % 4-13 N EOSINOPHIL % (test code = EO%) 1.0 % 0-6 N BASOPHIL % (test code = BA%) 0.3 % 0-2 N NUCLEATED RBC % (test code = 0.0 % 0-1.0 N NRBC%) NEUTROPHIL # (test code = NT#) 6.46 K/mm3 2.0-7.6 N IMMATURE GRANULOCYTE # (test 0.03 x10 3/uL 0-0.03 N code = IG#) LYMPHOCYTE # (test code = LY#) 1.32 K/mm3 1.0-3.8 N MONOCYTE # (test code = MO#) 1.17 K/mm3 0.1-0.8 H EOSINOPHIL # (test code = EO#) 0.09 K/mm3 0.0-0.2 N BASOPHIL # (test code = BA#) 0.03 K/mm3 0.0-0.2 N NUCLEATED RBC # (test code = 0.00 K/mm3 0.0-0.1 N NRBC#) - MRI BRAIN W/O [id number] 11:43:00 Patient Name: DEBI GARRETT Unit No: [id number] EXAMS: CPT CODE: [id number] MRI BRAIN W/O CONTRAST [id number] CLINICAL INFORMATION: Ataxia. Right internal carotid artery stenosis.. Dictation Location: B2 COMPARISON: Head CT 08/08/2019 reported no acute finding. Technique: Sagittal, axial and coronal scans were done with T1, T2, FLAIR, gradient , and diffusion weighted imaging. FINDINGS: There is no hydrocephalus, atrophy, midline shift or mass effect. No abnormal extra-axial fluid collection is identified. There is no intrinsic brain mass or recent ischemia. Mild to moderate deep white matter microvascular changes are seen. The orbits, paranasal sinuses and skull base appear unremarkable. Minimal opacification of the mastoids. Flow-voids are seen in the major arteries at the base of the brain and in the dural venous sinuses. IMPRESSION: 1. Mild senescent change. 2. No intrinsic brain mass or recent ischemia. at 1143 Reported and signed by: Farhad Preciado M.D. CC: Poli Aaron; Gonzalo Kent MD Technologist: Laura Wei (RT)(R) Transcrpt Date/Tm/Trnsp: 08/09/2019 (1143) Leonel.AGV Orig Print D/T: S: 08/09/2019 (1146) [facility] NAME: DEBI GARRETT [address] PHYS: [place] [address] : 1935 AGE: 84 SEX: F LOC: Z.SI05 A PHONE #: [phone] EXAM DATE: 08/09/2019 STATUS: ADM IN FAX #: [phone] RADIOLOGY NO: PAGE 1 Signed ReportURINALYSIS [id number] 22:47:00 Test Item Value Reference Range Interpretation Comments UA COLOR (test code = YELLOW YELLOW COLU) UA APPEARANCE (test code CLEAR CLEAR = APPU) UA GLUCOSE DIPSTICK (test NORMAL MG/DL NORMAL code = DGLUU) UA BILIRUBIN DIPSTICK NEGATIVE MG/DL NEGATIVE (test code = BILU) UA KETONE DIPSTICK (test NEGATIVE MG/DL NEGATIVE code = KETU) UA SPECIFIC GRAVITY (test 1.015 1.003-1.030 N code = SGU) UA BLOOD DIPSTICK (test NEGATIVE Larry/mm3 NEGATIVE code = JADEN) UA PH DIPSTICK (test code 6.0 5.0-9.0 N = KENYON) UA PROTEIN DIPSTICK (test NEGATIVE MG/DL NEGATIVE code = PROU) UA UROBILINIOGEN DIPSTICK NORMAL MG/DL NORMAL (test code = URO) UA NITRITE DIPSTICK (test NEGATIVE NEGATIVE code = DEANN) UA LEUKOCYTE ESTERASE NEGATIVE /mm3 NEGATIVE DIPSTICK (test code = LEUU) UA CULTURE NEEDED? (test NEGATIVE, NO CULTURE Culture Chk code = UACULT) Criteria SOURCE OF URINE: STRAIGHT CATHETERURINALYSIS [id number] 22:45:00 Test Item Value Reference Range Interpretation Comments UA COLOR (test code = COLU) YELLOW YELLOW UA APPEARANCE (test code = CLEAR CLEAR APPU) UA GLUCOSE DIPSTICK (test NORMAL MG/DL NORMAL code = DGLUU) UA BILIRUBIN DIPSTICK (test NEGATIVE MG/DL NEGATIVE code = BILU) UA KETONE DIPSTICK (test NEGATIVE MG/DL NEGATIVE code = KETU) UA SPECIFIC GRAVITY (test 1.015 1.003-1.030 N code = SGU) UA BLOOD DIPSTICK (test code NEGATIVE Larry/mm3 NEGATIVE = JADEN) UA PH DIPSTICK (test code = 6.0 5.0-9.0 N KENYON) UA PROTEIN DIPSTICK (test NEGATIVE MG/DL NEGATIVE code = PROU) UA UROBILINIOGEN DIPSTICK NORMAL MG/DL NORMAL (test code = URO) UA NITRITE DIPSTICK (test NEGATIVE NEGATIVE code = DEANN) UA LEUKOCYTE ESTERASE NEGATIVE /mm3 NEGATIVE DIPSTICK (test code = LEUU) UA CULTURE NEEDED? (test Criteria Culture Chk code = UACULT) SOURCE OF URINE: STRAIGHT CATHETERBASIC METABOLIC [id number] 13:12:00 Test Item Value Reference Range Interpretation Comments SODIUM (test code = 135 MMOL/L 137-145 L NA) POTASSIUM (test code = 4.2 MMOL/L 3.5-5.1 N K) CHLORIDE (test code = 99 MMOL/L 98-107 N CL) CARBON DIOXIDE (test 33 MMOL/L 22-30 H code = CO2) ANION GAP (test code = 7 MMOL/L 14-24 L GAP) GLUCOSE (test code = 102 MG/DL 74-106 N GLU) BLOOD UREA NITROGEN 27 MG/DL 7-17 H (test code = BUN) GLOMERULAR FILTRATION 43 Report ing units: RATE (test code = GFR) ml/mi n/1.73 m2 (Modified MDRD Formula)Referen ce Range: > or = 6 0 ml/min/1.73 m2 CREATININE (test code 1.20 MG/DL 0.52-1.04 H = CREAT) CALCIUM (test code = 9.8 MG/DL 8.4-10.2 N CA) [id number] 13:12:00 Test Item Value Reference Range Interpretation Comments PHOSPHOROUS (test code = PHOS) 2.6 MG/DL 2.5-4.5 N [id number] 13:12:00 Test Item Value Reference Range Interpretation Comments MAGNESIUM (test code = MAG) 2.3 MG/DL 1.6-2.3 N T3,T4 [id number] 13:12:00 Test Item Value Reference Range Interpretation Comments T3 UPTAKE (test code = T3UP) 33.3 % UP 23.5-40.5 N T4 (THYROXINE) (test code = T4) 13.10 UG/DL 5.53-11.0 H T7 (FREE THYROXINE INDEX) (test 4.4 1.2-4.3 H code = T7) THYROID STIMULATING [id number] 13:12:00 Test Item Value Reference Range Interpretation Comments THYROID STIMULATING 3.590 MIU/L 0.465-4.68 N Please b e aware that HORMONE (test code = bias re sults for TSH TSH) may occur forpa tient who are taking Biotin suppleme nts. T4 [id number] 12:43:00 Test Item Value Reference Range Interpretation Comments T4 FREE (test code = T4F) 2.1 NG/DL 0.78-2.19 N BASIC METABOLIC [id number] 12:41:00 Test Item Value Reference Range Interpretation Comments SODIUM (test code = 135 MMOL/L 137-145 L NA) POTASSIUM (test code = 4.2 MMOL/L 3.5-5.1 N K) CHLORIDE (test code = 99 MMOL/L 98-107 N CL) CARBON DIOXIDE (test 33 MMOL/L 22-30 H code = CO2) ANION GAP (test code = 7 MMOL/L 14-24 L GAP) GLUCOSE (test code = 102 MG/DL 74-106 N GLU) BLOOD UREA NITROGEN 27 MG/DL 7-17 H (test code = BUN) GLOMERULAR FILTRATION 43 Report ing units: RATE (test code = GFR) ml/mi n/1.73 m2 (Modified MDRD Formula)Referen ce Range: > or = 6 0 ml/min/1.73 m2 CREATININE (test code 1.20 MG/DL 0.52-1.04 H = CREAT) CALCIUM (test code = 9.8 MG/DL 8.4-10.2 N CA) [id number] 12:41:00 Test Item Value Reference Range Interpretation Comments PHOSPHOROUS (test code = PHOS) 2.6 MG/DL 2.5-4.5 N [id number] 12:41:00 Test Item Value Reference Range Interpretation Comments MAGNESIUM (test code = MAG) 2.3 MG/DL 1.6-2.3 N T3,T4 [id number] 12:41:00 Test Item Value Reference Range Interpretation Comments T3 UPTAKE (test code = T3UP) 33.3 % UP 23.5-40.5 N T4 (THYROXINE) (test code = T4) 13.10 UG/DL 5.53-11.0 H T7 (FREE THYROXINE INDEX) (test 4.4 1.2-4.3 H code = T7) THYROID STIMULATING [id number] 12:41:00 Test Item Value Reference Range Interpretation Comments THYROID STIMULATING HORMONE (test code MIU/L 0.465-4.68 = TSH) CBC W/AUTO [id number] 12:39:00 Test Item Value Reference Range Interpretation Comments WHITE BLOOD CELL (test code = 11.5 K/MM3 3.8-9.8 H WBC) RED BLOOD CELL (test code = 3.63 M/MM3 3.58-4.97 N RBC) HEMOGLOBIN (test code = HGB) 11.2 G/DL 11.2-14.9 N HEMATOCRIT (test code = HCT) 34.7 % 33.2-43.5 N MEAN CELL VOLUME (test code = 96 fL 80.7-99.1 N MCV) MEAN CELL HGB (test code = MCH) 30.9 pg 27.0-34.1 N MEAN CELL HGB CONCETRATION 32.3 % 32.2-35.7 N (test code = MCHC) RED CELL DISTRIBUTION WIDTH 14.3 % 12.1-15.2 N (test code = RDW) PLATELET COUNT (test code = 254 K/MM3 129-368 N PLT) MEAN PLATELET VOLUME (test code 10.4 fl 7.4-10.4 N = MPV) NEUTROPHIL % (test code = NT%) 76.9 % 43-75 H IMMATURE GRANULOCYTE % (test 0.3 % 0.0-2.0 N code = IG%) LYMPHOCYTE % (test code = LY%) 10.6 % 14-44 L MONOCYTE % (test code = MO%) 10.8 % 4-13 N EOSINOPHIL % (test code = EO%) 1.0 % 0-6 N BASOPHIL % (test code = BA%) 0.4 % 0-2 N NUCLEATED RBC % (test code = 0.0 % 0-1.0 N NRBC%) NEUTROPHIL # (test code = NT#) 8.83 K/mm3 2.0-7.6 H IMMATURE GRANULOCYTE # (test 0.04 x10 3/uL 0-0.03 H code = IG#) LYMPHOCYTE # (test code = LY#) 1.22 K/mm3 1.0-3.8 N MONOCYTE # (test code = MO#) 1.24 K/mm3 0.1-0.8 H EOSINOPHIL # (test code = EO#) 0.11 K/mm3 0.0-0.2 N BASOPHIL # (test code = BA#) 0.05 K/mm3 0.0-0.2 N NUCLEATED RBC # (test code = 0.00 K/mm3 0.0-0.1 N NRBC#) BASIC METABOLIC [id number] 12:26:00 Test Item Value Reference Range Interpretation Comments SODIUM (test code = 135 MMOL/L 137-145 L NA) POTASSIUM (test code = 4.2 MMOL/L 3.5-5.1 N K) CHLORIDE (test code = 99 MMOL/L 98-107 N CL) CARBON DIOXIDE (test 33 MMOL/L 22-30 H code = CO2) ANION GAP (test code = 7 MMOL/L 14-24 L GAP) GLUCOSE (test code = 102 MG/DL 74-106 N GLU) BLOOD UREA NITROGEN 27 MG/DL 7-17 H (test code = BUN) GLOMERULAR FILTRATION 43 Report ing units: RATE (test code = GFR) ml/mi n/1.73 m2 (Modified MDRD Formula)Referen ce Range: > or = 6 0 ml/min/1.73 m2 CREATININE (test code 1.20 MG/DL 0.52-1.04 H = CREAT) CALCIUM (test code = 9.8 MG/DL 8.4-10.2 N CA) [id number] 12:26:00 Test Item Value Reference Range Interpretation Comments PHOSPHOROUS (test code = PHOS) 2.6 MG/DL 2.5-4.5 N [id number] 12:26:00 Test Item Value Reference Range Interpretation Comments MAGNESIUM (test code = MAG) 2.3 MG/DL 1.6-2.3 N T3,T4 [id number] 12:26:00 Test Item Value Reference Range Interpretation Comments T3 UPTAKE (test code = T3UP) % UP 23.5-40.5 T4 (THYROXINE) (test code = T4) UG/DL 5.53-11.0 T7 (FREE THYROXINE INDEX) (test code = 1.2-4.3 T7) THYROID STIMULATING [id number] 12:26:00 Test Item Value Reference Range Interpretation Comments THYROID STIMULATING HORMONE (test code MIU/L 0.465-4.68 = TSH) BASIC METABOLIC [id number] 12:25:00 Test Item Value Reference Range Interpretation Comments SODIUM (test code = 135 MMOL/L 137-145 L NA) POTASSIUM (test code = 4.2 MMOL/L 3.5-5.1 N K) CHLORIDE (test code = 99 MMOL/L 98-107 N CL) CARBON DIOXIDE (test MMOL/L 22-30 code = CO2) GLUCOSE (test code = MG/DL 74-106 GLU) BLOOD UREA NITROGEN MG/DL 7-17 (test code = BUN) GLOMERULAR FILTRATION 43 Report ing units: RATE (test code = GFR) ml/mi n/1.73 m2 (Modified MDRD Formula)Referen ce Range: > or = 6 0 ml/min/1.73 m2 CREATININE (test code 1.20 MG/DL 0.52-1.04 H = CREAT) CALCIUM (test code = MG/DL 8.7-9.7 CA) [id number] 12:25:00 Test Item Value Reference Range Interpretation Comments PHOSPHOROUS (test code = PHOS) MG/DL 2.5-4.5 [id number] 12:25:00 Test Item Value Reference Range Interpretation Comments MAGNESIUM (test code = MAG) MG/DL 1.6-2.3 T3,T4 [id number] 12:25:00 Test Item Value Reference Range Interpretation Comments T3 UPTAKE (test code = T3UP) % UP 23.5-40.5 T4 (THYROXINE) (test code = T4) UG/DL 5.53-11.0 T7 (FREE THYROXINE INDEX) (test code = 1.2-4.3 T7) THYROID STIMULATING [id number] 12:25:00 Test Item Value Reference Range Interpretation Comments THYROID STIMULATING HORMONE (test code MIU/L 0.465-4.68 = TSH) BASIC METABOLIC [id number] 12:25:00 Test Item Value Reference Range Interpretation Comments SODIUM (test code = 135 MMOL/L 137-145 L NA) POTASSIUM (test code = 4.2 MMOL/L 3.5-5.1 N K) CHLORIDE (test code = 99 MMOL/L 98-107 N CL) CARBON DIOXIDE (test 33 MMOL/L 22-30 H code = CO2) ANION GAP (test code = 7 MMOL/L 14-24 L GAP) GLUCOSE (test code = MG/DL 74-106 GLU) BLOOD UREA NITROGEN MG/DL 7-17 (test code = BUN) GLOMERULAR FILTRATION 43 Report ing units: RATE (test code = GFR) ml/mi n/1.73 m2 (Modified MDRD Formula)Referen ce Range: > or = 6 0 ml/min/1.73 m2 CREATININE (test code 1.20 MG/DL 0.52-1.04 H = CREAT) CALCIUM (test code = MG/DL 8.7-9.7 CA) [id number] 12:25:00 Test Item Value Reference Range Interpretation Comments PHOSPHOROUS (test code = PHOS) MG/DL 2.5-4.5 [id number] 12:25:00 Test Item Value Reference Range Interpretation Comments MAGNESIUM (test code = MAG) MG/DL 1.6-2.3 T3,T4 [id number] 12:25:00 Test Item Value Reference Range Interpretation Comments T3 UPTAKE (test code = T3UP) % UP 23.5-40.5 T4 (THYROXINE) (test code = T4) UG/DL 5.53-11.0 T7 (FREE THYROXINE INDEX) (test code = 1.2-4.3 T7) THYROID STIMULATING [id number] 12:25:00 Test Item Value Reference Range Interpretation Comments THYROID STIMULATING HORMONE (test code MIU/L 0.465-4.68 = TSH) BASIC METABOLIC [id number] 12:25:00 Test Item Value Reference Range Interpretation Comments SODIUM (test code = 135 MMOL/L 137-145 L NA) POTASSIUM (test code = 4.2 MMOL/L 3.5-5.1 N K) CHLORIDE (test code = 99 MMOL/L 98-107 N CL) CARBON DIOXIDE (test 33 MMOL/L 22-30 H code = CO2) ANION GAP (test code = 7 MMOL/L 14-24 L GAP) GLUCOSE (test code = 102 MG/DL 74-106 N GLU) BLOOD UREA NITROGEN 27 MG/DL 7-17 H (test code = BUN) GLOMERULAR FILTRATION 43 Report ing units: RATE (test code = GFR) ml/mi n/1.73 m2 (Modified MDRD Formula)Referen ce Range: > or = 6 0 ml/min/1.73 m2 CREATININE (test code 1.20 MG/DL 0.52-1.04 H = CREAT) CALCIUM (test code = MG/DL 8.7-9.7 CA) [id number] 12:25:00 Test Item Value Reference Range Interpretation Comments PHOSPHOROUS (test code = PHOS) MG/DL 2.5-4.5 [id number] 12:25:00 Test Item Value Reference Range Interpretation Comments MAGNESIUM (test code = MAG) MG/DL 1.6-2.3 T3,T4 [id number] 12:25:00 Test Item Value Reference Range Interpretation Comments T3 UPTAKE (test code = T3UP) % UP 23.5-40.5 T4 (THYROXINE) (test code = T4) UG/DL 5.53-11.0 T7 (FREE THYROXINE INDEX) (test code = 1.2-4.3 T7) THYROID STIMULATING [id number] 12:25:00 Test Item Value Reference Range Interpretation Comments THYROID STIMULATING HORMONE (test code MIU/L 0.465-4.68 = TSH) BASIC METABOLIC [id number] 12:23:00 Test Item Value Reference Range Interpretation Comments SODIUM (test code = NA) 135 MMOL/L 137-145 L POTASSIUM (test code = K) 4.2 MMOL/L 3.5-5.1 N CHLORIDE (test code = CL) 99 MMOL/L 98-107 N CARBON DIOXIDE (test code = CO2) MMOL/L 22-30 GLUCOSE (test code = GLU) MG/DL 74-106 BLOOD UREA NITROGEN (test code = MG/DL 7-17 BUN) GLOMERULAR FILTRATION RATE (test code = GFR) CREATININE (test code = CREAT) MG/DL 0.52-1.04 CALCIUM (test code = CA) MG/DL 8.7-9.7 [id number] 12:23:00 Test Item Value Reference Range Interpretation Comments PHOSPHOROUS (test code = PHOS) MG/DL 2.5-4.5 [id number] 12:23:00 Test Item Value Reference Range Interpretation Comments MAGNESIUM (test code = MAG) MG/DL 1.6-2.3 T3,T4 [id number] 12:23:00 Test Item Value Reference Range Interpretation Comments T3 UPTAKE (test code = T3UP) % UP 23.5-40.5 T4 (THYROXINE) (test code = T4) UG/DL 5.53-11.0 T7 (FREE THYROXINE INDEX) (test code = 1.2-4.3 T7) THYROID STIMULATING [id number] 12:23:00 Test Item Value Reference Range Interpretation Comments THYROID STIMULATING HORMONE (test code MIU/L 0.465-4.68 = TSH) BASIC METABOLIC [id number] 12:22:00 Test Item Value Reference Range Interpretation Comments SODIUM (test code = NA) 135 MMOL/L 137-145 L POTASSIUM (test code = K) MMOL/L 3.5-5.1 CHLORIDE (test code = CL) 99 MMOL/L 98-107 N CARBON DIOXIDE (test code = CO2) MMOL/L 22-30 GLUCOSE (test code = GLU) MG/DL 74-106 BLOOD UREA NITROGEN (test code = MG/DL 7-17 BUN) GLOMERULAR FILTRATION RATE (test code = GFR) CREATININE (test code = CREAT) MG/DL 0.52-1.04 CALCIUM (test code = CA) MG/DL 8.7-9.7 [id number] 12:22:00 Test Item Value Reference Range Interpretation Comments PHOSPHOROUS (test code = PHOS) MG/DL 2.5-4.5 [id number] 12:22:00 Test Item Value Reference Range Interpretation Comments MAGNESIUM (test code = MAG) MG/DL 1.6-2.3 T3,T4 [id number] 12:22:00 Test Item Value Reference Range Interpretation Comments T3 UPTAKE (test code = T3UP) % UP 23.5-40.5 T4 (THYROXINE) (test code = T4) UG/DL 5.53-11.0 T7 (FREE THYROXINE INDEX) (test code = 1.2-4.3 T7) THYROID STIMULATING [id number] 12:22:00 Test Item Value Reference Range Interpretation Comments THYROID STIMULATING HORMONE (test code MIU/L 0.465-4.68 = TSH) - XR HIP W/PEL UNI 2+V [id number] 11:43:00 Patient Name: TAMI,DEBI ENDER Unit No: [id number] EXAMS: CPT CODE: [id number] XR HIP W/PEL UNI 2+[place] [address] EXAM: - XR HIP W/PEL UNI 2+V RT HISTORY: s/p fall, pain right hip Location: B2 COMPARISON: None available time of interpretation. FINDINGS: AP view of the pelvis and frog-leg lateral view of the right hip is provided. There is no evidence of acute fracture or malalignment. Mild degenerative joint space narrowing present throughout both hips. Sacroiliac joints and pubic symphysis appear unremarkable. Mild degenerative changes along the lower lumbar spine. IMPRESSION: No acute osseous abnormality. at 1143 Reported and signed by: Kathrin Guevara MD CC: Poli Aaron;Jana Acosta GYMNASTIC COACH Technologist: Britney Myers RT (R) Transcrpt Date/Tm/Trnsp: 08/08/2019 (1143) [id number].[email or web address] Orig Print D/T: S: 08/08/2019 (1550) [facility] NAME: DEBI GARRETT [id number] PHYS: DUSTY.[place] [address] : 1935 AGE: 84 SEX: F LOC: Z.SI05 A PHONE #: [phone] EXAM DATE: 08/08/2019 STATUS: ADM IN FAX #:[phone] RADIOLOGY NO: PAGE 1 Signed Report- CT HEAD/BRAIN W/O [id number] 11:40:00 Patient Name: DEBI GARRETT Unit No: [id number] EXAMS: CPT CODE: [id number] CT HEAD/BRAIN W/O CONT [id number] EXAMINATION: - CT HEAD/BRAIN W/O CONT. LOCATION: S17. HISTORY: AMS, Falls, right carotid stenosis. COMPARISON: None. TECHNIQUE: Routine CT of the head was performed without intravenous contrast as per protocol. One or more the following dose reduction techniques were used: Automated exposure control, adjustment ofmA and/or kV according to patient size, and use of iterative reconstruction technique. FINDINGS: Brain Parenchyma: No hemorrhage or infarction. No mass effect or midline shift. There are low attenuation regions within the periventricular white matter, this is nonspecific, most commonly associated with microvascular ischemic changes. Atherosclerotic vascular calcifications. Extra Axial Spaces: Unremarkable. Ventricular System: Unremarkable. Osseous Structures: Unremarkable. Visualized Paranasal Sinuses: Unremarkable. IMPRESSION: No acute intracranial abnormality nor hemorrhage. at 1140 Reported and signed by: Ever Finney CC: Poli Aaron; Jana Acosta GYMNASTIC COACH Technologist: Filipe Perez, RT(R) CTDI: DLP: Trnscrpt: 08/08/2019 (2780) t.[email or web address] [facility] NAME: DEBI GARRETT PHYS: ELIJAHLUCIAN. [place]la,[place] [address] : 1935 AGE: 84 SEX: F LOC: Z.SI05 A PHONE #: [phone] EXAM DATE: 08/08/2019 STATUS: ADM IN FAX #: [phone] RAD #: D/C DT PAGE 1 Signed Report Patient Name: DEBI GARRETT Unit No: [id number] EXAMS: CPT CODE: [id number] CT HEAD/BRAIN W/O CONT [id number] <Continued> Orig Print D/T: S: 08/08/2019 (7110) [facility] NAME: DEBI GARRETT PHYS: DUSTY.Ric - Karla,[place] [address] : 1935 AGE: 84 SEX: F LOC: Z.SI05 A PHONE #: [phone] EXAM DATE: 08/08/2019 STATUS: ADM IN FAX #: [phone] RAD #: D/C DT PAGE 2 Signed Report- XR CHEST [id number] 08:51:00 Patient Name: DEBI GARRETT Unit No: [id number] EXAMS: CPT CODE: [id number] XR CHEST 1V 98893 EXAM: - XR CHEST 1V Location code:B2 HISTORY: Follow-up pneumothorax COMPARISON: 08/07/2019 FINDINGS: Frontal view of the chest is submitted. Left subclavian CVC unchanged. There is a stable sma ll left apical pneumothorax present. Stable cardiomediastinal silhouette and mild pulmonary vascular congestive changes noted bilaterally. Mild interval increase in parenchymal opacity at the left lung base atelectasis or developing infiltrate. No large effusion or right-sided pneumothorax.No acute osseous pathology. IMPRESSION 1. No significant interval change in size of small left apical pneumothorax. 2. Mildly worsened left basilar atelectasis or developing infiltrate. at 0851 Reported and signed by: Kathrin Guevara MD CC: Poli Aaron; Jana Acosta GYMNASTIC COACH Technologist: Octavio Lerner RT(R) Transcrpt Date/Tm/Trnsp: 08/08/2019 (0851) [email or web address] Orig Print D/T: S: 08/08/2019 (0854) MICHAEL Porter NAME: DEBI GARRETT [id number] PHYS: DUSTY.[place] [address] : 1935 AGE: 84 SEX: F LOC: Z.SI05 A PHONE #: [phone] EXAM DATE: 08/08/2019 STATUS: ADM IN FAX #: RADIOLOGY NO: PAGE 1 Signed [id number] 12:46:00 RUN DATE: 08/07[facility] PAGE 1 RUN TIME: 1246 Specimen Inquiry RUN USER: INTERFACE PATIENT: DEBI GARRETT LOC: MYLES U #: [id number] AGE/SX: 84/F [facility] DR: Robi Schroeder MD : 37 BED: A DIS: STATUS: ADM IN TLOC: SPEC #: [id number] RECD: 08/06/19 STATUS: DOV RERoberto Carlos #: [id number] KELLE: 08/06/[address] [facility] [address]: Robi Schroeder MD ENTERED: 08/06/19 SP TYPE: ARTERY, PL OTHR DR: Self Referred Mirella Francis MD, Patricia Q MD Pepper, Gregory S MDORDERED: DECAL, SURG PATH LVL3, SURG PATH LVL 4 CODES: [id number] - PLAQUE, NOS [id number] - ARTERY, NOS [id number] - CAROTID ARTERY ATHEROSCLEROSIS [id number] - CERVIX NEOPLASM, MALIG [id number] - CERVIX EXCISIONAL BIOP [id number] - LYMPH NODE, NOS COPIES TO: [place] [address] [place] [address] Poli Aaron MD [address] [id number] [place] [address] [facility] [address] [place] [address] [place] [address] [facility] [address] [place] [address] ICD CODES: 440 - PROCEDURES: DECAL (08/06/19-1247) SURG PATH LVL 3 (08/06/19-1247) SURG PATH LVL 4 (08/06/19) TISSUES: A. ARTERY, NOS - RT CAROTID PLAQUE B. LYMPH NODE, NOS - RT CERVICAL LYMPH NODE CONTINUED ON NEXT PAGE RUN DATE: 08/07/19 [facility] PAGE 2 RUN TIME: 1246 Specimen Inquiry RUN USER: INTERFACE SPEC #: [id number] PATIENT: DEBI GARRETT #[id number] (Continued) CLINICAL HISTORY S/P RIGHT CEA CPT CODES CPT CODE(S): 89116 , 68620 , 13306 , , , , FINAL DIAGNOSIS A. Plaque, right carotid artery, endarterectomy: SEVERE CALCIFIC ATHEROSCLEROSIS B. Lymph node, right cervical, excisional biopsy: MILD TO MODERATE, NONSPECIFIC, REACTIVE CHANGE NO SIGNIFICANT ATYPIA, MALIGNANCY, OR ABERRANT POPULATION OF LYMPHOCYTES DETECTED GROSS DESCRIPTION A. Right carotid plaque. Received is a segment of yellow-tatum plaque, measuring 4.3 x 0.8 x 0.7 cm. Cut sections reveal a partially calcified surface.Sections submitted for decalcification as A1. B. Right cervical lymph node. Received are three nodes, measuring 0.5, 0.6 and 1 cm. The smaller two nodes are bisected, one inked and submitted as B1 and the largest node is serially sectioned and submitted as B2. /tc/nr MICROSCOPIC DESCRIPTION A. Right carotid plaque. Ovoid sclerotic nodule with dense stromal calcification. No atypical features. B. Right cervical lymph node. Benign lymph node with variable mild to moderate sinus histiocytosis and minimal paracortical reactive change. No atypical features. /chidi- Signed SIGNATURE ON FILE Raffi Henderson 08/07/19 1246 END OF REPORT - XR CHEST [id number] 10:56:00 Patient Name: DEBI GARRETT Unit No: [id number] EXAMS: CPT CODE: [id number] XR CHEST 1V [id number] EXAMINATION: - XR CHEST 1V. LOCATION: B2. HISTORY: post op. COMPARISON: Radiograph dated 08/06/2019. TECHNIQUE: Single APview of the chest was obtained. FINDINGS: Left subclavian line and right neck surgical drain are unchanged in position. The heart is normal in size. Calcifications are seen at the aortic arch. There has been interval development of left basilar opacities. Small left apical pneumothorax is seen. The right lung is clear. No acute osseous abnormality is identified. IMPRESSION: Interval development of small left apical pneumothorax. Interval development of left basilar opacities, likely representing atelectasis. Findings were personally discussed with Dr. Schroeder at 1056 hours on 08/07/2019. at 1056 Reported and signed by: Wendy Davidson MD CC: Poli Aaron Technologist: Damian Ingram (RT) (R) Transcrpt Date/Tm/Trnsp: 08/07/2019 (1056) [email or web address] Orig Print D/T: S: 08/07/2019 (1100) [facility] NAME: DEBI GARRETT[address] PHYS: [place] [address] : 1935 AGE: 84 SEX: F LOC: Z.SI01 A PHONE #: [phone] EXAM DATE: 08/07/2019 STATUS: ADM IN FAX #: [phone] RADIOLOGY NO: PAGE 1 Signed ReportBASIC METABOLIC PANEL 2019-08-07 06:56:00 Test Item Value Reference Range Interpretation Comments SODIUM (test code = 134 MMOL/L 137-145 L NA) POTASSIUM (test code = 4.0 MMOL/L 3.5-5.1 N K) CHLORIDE (test code = 102 MMOL/L 98-107 N CL) CARBON DIOXIDE (test 26 MMOL/L 22-30 N code = CO2) ANION GAP (test code = 10 MMOL/L 14-24 L GAP) GLUCOSE (test code = 160 MG/DL 74-106 H GLU) BLOOD UREA NITROGEN 10 MG/DL 7-17 N (test code = BUN) GLOMERULAR FILTRATION > 60 Report ing units: RATE (test code = GFR) ml/mi n/1.73 m2 (Modified MDRD Formula)Referen ce Range: > or = 6 0 ml/min/1.73 m2 CREATININE (test code 0.60 MG/DL 0.52-1.04 N = CREAT) CALCIUM (test code = 9.5 MG/DL 8.4-10.2 N CA) CBN DRAW LEFT TUBES FOR NURSE [id number] 06:56:00 Test Item Value Reference Range Interpretation Comments MAGNESIUM (test code = MAG) 1.8 MG/DL 1.6-2.3 N CBN DRAW LEFT TUBES FOR N[facility]SE [facility]ABOLIC [id number] 06:55:00 Test Item Value Reference Range Interpretation Comments SODIUM (test code = 134 MMOL/L 137-145 L NA) POTASSIUM (test code = 4.0 MMOL/L 3.5-5.1 N K) CHLORIDE (test code = 102 MMOL/L 98-107 N CL) CARBON DIOXIDE (test MMOL/L 22-30 code = CO2) GLUCOSE (test code = MG/DL 74-106 GLU) BLOOD UREA NITROGEN MG/DL 7-17 (test code = BUN) GLOMERULAR FILTRATION > 60 Report ing units: RATE (test code = GFR) ml/mi n/1.73 m2 (Modified MDRD Formula)Referen ce Range: > or = 6 0 ml/min/1.73 m2 CREATININE (test code 0.60 MG/DL 0.52-1.04 N = CREAT) CALCIUM (test code = MG/DL 8.7-9.7 CA) CBN DRAW LEFT TUBES FOR NURSE [id number] 06:55:00 Test Item Value Reference Range Interpretation Comments MAGNESIUM (test code = MAG) MG/DL 1.6-2.3 CBN DRAW LEFT TUBES FOR NURSE FELABASIC METABOLIC [id number] 06:53:00 Test Item Value Reference Range Interpretation Comments SODIUM (test code = NA) 134 MMOL/L 137-145 L POTASSIUM (test code = K) 4.0 MMOL/L 3.5-5.1 N CHLORIDE (test code = CL) 102 MMOL/L 98-107 N CARBON DIOXIDE (test code = CO2) MMOL/L 22-30 GLUCOSE (test code = GLU) MG/DL 74-106 BLOOD UREA NITROGEN (test code = MG/DL 7-17 BUN) GLOMERULAR FILTRATION RATE (test code = GFR) CREATININE (test code = CREAT) MG/DL 0.52-1.04 CALCIUM (test code = CA) MG/DL 8.7-9.7 CBN DRAW LEFT TUBES FOR NURSE [id number] 06:53:00 Test Item Value Reference Range Interpretation Comments MAGNESIUM (test code = MAG) MG/DL 1.6-2.3 CBN DRAW LEFT TUBES FOR NURSE ROSIECBC W/AUTO [id number] 06:42:00 Test Item Value Reference Range Interpretation Comments WHITE BLOOD CELL (test code = 16.5 K/MM3 3.8-9.8 H WBC) RED BLOOD CELL (test code = 3.71 M/MM3 3.58-4.97 RBC) HEMOGLOBIN (test code = HGB) 11.5 G/DL 11.2-14.9 N HEMATOCRIT (test code = HCT) 35.0 % 33.2-43.5 MEAN CELL VOLUME (test code = 94 fL 80.7-99.1 N MCV) MEAN CELL HGB (test code = MCH) 31.0 pg 27.0-34.1 N MEAN CELL HGB CONCETRATION 32.9 % 32.2-35.7 N (test code = MCHC) RED CELL DISTRIBUTION WIDTH 13.5 % 12.1-15.2 N (test code = RDW) PLATELET COUNT (test code = 239 K/MM3 129-368 N PLT) MEAN PLATELET VOLUME (test code 10.3 fl 7.4-10.4 N = MPV) NEUTROPHIL % (test code = NT%) 88.5 % 43-75 H IMMATURE GRANULOCYTE % (test 0.4 % 0.0-2.0 N code = IG%) LYMPHOCYTE % (test code = LY%) 5.5 % 14-44 L MONOCYTE % (test code = MO%) 5.5 % 4-13 N EOSINOPHIL % (test code = EO%) 0.0 % 0-6 N BASOPHIL % (test code = BA%) 0.1 % 0-2 N NUCLEATED RBC % (test code = 0.0 % 0-1.0 N NRBC%) NEUTROPHIL # (test code = NT#) 14.60 K/mm3 2.0-7.6 H IMMATURE GRANULOCYTE # (test 0.06 x10 3/uL 0-0.03 H code = IG#) LYMPHOCYTE # (test code = LY#) 0.90 K/mm3 1.0-3.8 L MONOCYTE # (test code = MO#) 0.90 K/mm3 0.1-0.8 H EOSINOPHIL # (test code = EO#) 0.00 K/mm3 0.0-0.2 N BASOPHIL # (test code = BA#) 0.02 K/mm3 0.0-0.2 N NUCLEATED RBC # (test code = 0.00 K/mm3 0.0-0.1 N NRBC#) CBN DRAW LEFT TUBES FOR NURSE [facility] METABOLIC [id number] 13:33:00 Test Item Value Reference Range Interpretation Comments SODIUM (test code = 137 MMOL/L 137-145 N NA) POTASSIUM (test code = 3.6 MMOL/L 3.5-5.1 N K) CHLORIDE (test code = 109 MMOL/L 98-107 H CL) CARBON DIOXIDE (test 27 MMOL/L 22-30 N code = CO2) GLUCOSE (test code = 125 MG/DL 74-106 H GLU) BLOOD UREA NITROGEN 15 MG/DL 7-17 N (test code = BUN) GLOMERULAR FILTRATION > 60 Report ing units: RATE (test code = GFR) ml/mi n/1.73 m2 (Modified MDRD Formula)Referen ce Range: > or = 6 0 ml/min/1.73 m2 CREATININE (test code 0.80 MG/DL 0.52-1.04 N = CREAT) CALCIUM (test code = 10.0 MG/DL 8.4-10.2 N CA) [id number] 13:33:00 Test Item Value Reference Range Interpretation Comments MAGNESIUM (test code = MAG) 1.8 MG/DL 1.6-2.3 N BASIC METABOLIC [id number] 13:32:00 Test Item Value Reference Range Interpretation Comments SODIUM (test code = 137 MMOL/L 137-145 N NA) POTASSIUM (test code = 3.6 MMOL/L 3.5-5.1 N K) CHLORIDE (test code = 109 MMOL/L 98-107 H CL) CARBON DIOXIDE (test 27 MMOL/L 22-30 N code = CO2) GLUCOSE (test code = MG/DL 74-106 GLU) BLOOD UREA NITROGEN MG/DL 7-17 (test code = BUN) GLOMERULAR FILTRATION > 60 Report ing units: RATE (test code = GFR) ml/mi n/1.73 m2 (Modified MDRD Formula)Referen ce Range: > or = 6 0 ml/min/1.73 m2 CREATININE (test code 0.80 MG/DL 0.52-1.04 N = CREAT) CALCIUM (test code = MG/DL 8.7-9.7 CA) [id number] 13:32:00 Test Item Value Reference Range Interpretation Comments MAGNESIUM (test code = MAG) MG/DL 1.6-2.3 BASIC METABOLIC [id number] 13:30:00 Test Item Value Reference Range Interpretation Comments SODIUM (test code = NA) 137 MMOL/L 137-145 N POTASSIUM (test code = K) 3.6 MMOL/L 3.5-5.1 N CHLORIDE (test code = CL) 109 MMOL/L 98-107 H CARBON DIOXIDE (test code = CO2) MMOL/L 22-30 GLUCOSE (test code = GLU) MG/DL 74-106 BLOOD UREA NITROGEN (test code = MG/DL 7-17 BUN) GLOMERULAR FILTRATION RATE (test code = GFR) CREATININE (test code = CREAT) MG/DL 0.52-1.04 CALCIUM (test code = CA) MG/DL 8.7-9.7 [id number] 13:30:00 Test Item Value Reference Range Interpretation Comments MAGNESIUM (test code = MAG) MG/DL 1.6-2.3 BASIC METABOLIC [id number] 13:29:00 Test Item Value Reference Range Interpretation Comments SODIUM (test code = NA) 137 MMOL/L 137-145 N POTASSIUM (test code = K) MMOL/L 3.5-5.1 CHLORIDE (test code = CL) 109 MMOL/L 98-107 H CARBON DIOXIDE (test code = CO2) MMOL/L 22-30 GLUCOSE (test code = GLU) MG/DL 74-106 BLOOD UREA NITROGEN (test code = MG/DL 7-17 BUN) GLOMERULAR FILTRATION RATE (test code = GFR) CREATININE (test code = CREAT) MG/DL 0.52-1.04 CALCIUM (test code = CA) MG/DL 8.7-9.7 [id number] 13:29:00 Test Item Value Reference Range Interpretation Comments MAGNESIUM (test code = MAG) MG/DL 1.6-2.3 CBC W/AUTO [id number] 13:19:00 Test Item Value Reference Range Interpretation Comments WHITE BLOOD CELL (test code = 6.2 K/MM3 3.8-9.8 N WBC) RED BLOOD CELL (test code = 3.09 M/MM3 3.58-4.97 L RBC) HEMOGLOBIN (test code = HGB) 9.6 G/DL 11.2-14.9 L HEMATOCRIT (test code = HCT) 29.6 % 33.2-43.5 L MEAN CELL VOLUME (test code = 96 fL 80.7-99.1 N MCV) MEAN CELL HGB (test code = MCH) 31.1 pg 27.0-34.1 N MEAN CELL HGB CONCETRATION 32.4 % 32.2-35.7 N (test code = MCHC) RED CELL DISTRIBUTION WIDTH 13.7 % 12.1-15.2 N (test code = RDW) PLATELET COUNT (test code = 203 K/MM3 129-368 N PLT) MEAN PLATELET VOLUME (test code 10.7 fl 7.4-10.4 H = MPV) NEUTROPHIL % (test code = NT%) 58.9 % 43-75 N IMMATURE GRANULOCYTE % (test 0.6 % 0.0-2.0 N code = IG%) LYMPHOCYTE % (test code = LY%) 27.3 % 14-44 N MONOCYTE % (test code = MO%) 6.9 % 4-13 N EOSINOPHIL % (test code = EO%) 5.7 % 0-6 N BASOPHIL % (test code = BA%) 0.6 % 0-2 N NUCLEATED RBC % (test code = 0.0 % 0-1.0 N NRBC%) NEUTROPHIL # (test code = NT#) 3.64 K/mm3 2.0-7.6 N IMMATURE GRANULOCYTE # (test 0.04 x10 3/uL 0-0.03 H code = IG#) LYMPHOCYTE # (test code = LY#) 1.69 K/mm3 1.0-3.8 N MONOCYTE # (test code = MO#) 0.43 K/mm3 0.1-0.8 N EOSINOPHIL # (test code = EO#) 0.35 K/mm3 0.0-0.2 H BASOPHIL # (test code = BA#) 0.04 K/mm3 0.0-0.2 N NUCLEATED RBC # (test code = 0.00 K/mm3 0.0-0.1 N NRBC#) - XR CHEST [id number] 13:05:00 Patient Name: DEBI GARRETT Unit No: [id number] EXAMS: CPT CODE: [id number] XR CHEST 1V 79884 Site ID: [id number] HISTORY: Postoperative, right CEA COM PARISON: Chest x-ray July 29, 2019 FINDINGS: Suboptimal inspiratory effort, with mild pulmonary vascular crowding/engorgement. Heart size is normal. A right carotid region surgical drain and left subclavian line are in place. No pneumothorax. Osseous structures are unremarkable. IMPRESSION: Mild pulmonary vascular prominence which may reflect true vascular congestion or vascular crowding dueto poor inspiratory effort at 1305 Reported and signed by: Laith Salcido MD CC: Teofilo Aaron Technologist: Octavio Lerner, RT(R) Transcrpt Date/Tm/Trnsp: 08/06/2019 (1305) [id number] Orig Print D/T: S: 08/06/2019 (1308) [facility] NAME: DEBI GARRETT [id number] PHYS: [place] [address] : 1935 AGE: 84 SEX: F LOC: Z.SI01 A PHONE #: [phone] EXAM DATE: 08/06/2019 STATUS: ADM IN FAX #: [phone] RADIOLOGY NO: PAGE 1 Signed ReportARTERIAL BLOOD [id number] 13:00:00 Test Item Value Reference Range Interpretation Comments ARTERIAL BLOOD GAS PH 7.33 mmHg 7.35-7.45 L (test code = PHA) ARTERIAL BLOOD GAS PCO2 46.0 mmHg 35.0-45.0 H (test code = PCO2A) ARTERIAL BLOOD GAS PO2 98.8 mmol/L 80.0-100.0 N (test code = PO2A) BICARBONATE TOTAL HCO3 23.6 mmol/L 20.0-26.0 N (test code = HCO3) BASE EXCESS (test code -2.6 mmol/L -3.0-3.0 N = MARY) ABG O2 SATURATION (test 97.0 % 95.0-100.0 N All critical values code = SATA) report to and readback by PRAVEEN BRONSON RN by SOSA at 08/06/2019 12:58 :50 PM ABG DELIVERY (test code SMASK = CYNTHIA) ABG TEMPERATURE (test 37.0 C >37 code = TEMPA) ABG SITE (test code = AL SITEA) ALLENS TEST (test code NA CHECK = ALLENS) FIO2 (test code = 50 % COHBGFFIO2) Novel Coronavirus 2019 [id number] 08:07:00 Test Item Value Reference Range Interpretation Comments Novel Coronavirus 2018 Inhouse (test Negative Negative code = COVNONPUI) Novel Coronavirus 2019 [id number] 08:06:00 Test Item Value Reference Range Interpretation Comments Novel Coronavirus 2019 Inhouse (test Negative Negative code = COVNONPUI) HIV 12 AB [id number] 14:28:00 Test Item Value Reference Range Interpretation Comments HIV 1 2 COMBO AG/AB SCREEN AB/AG NON REACTIVE NONREACTIVE (test code = [id number]) BASIC METABOLIC [id number] 13:39:00 Test Item Value Reference Range Interpretation Comments SODIUM (test code = 139 MMOL/L 137-145 N NA) POTASSIUM (test code = 3.8 MMOL/L 3.5-5.1 N K) CHLORIDE (test code = 101 MMOL/L 98-107 N CL) CARBON DIOXIDE (test 29 MMOL/L 22-30 N code = CO2) GLUCOSE (test code = 93 MG/DL 74-106 N GLU) BLOOD UREA NITROGEN 18 MG/DL 7-17 H (test code = BUN) GLOMERULAR FILTRATION 60 Report ing units: RATE (test code = GFR) ml/mi n/1.73 m2 (Modified MDRD Formula)Referen ce Range: > or = 6 0 ml/min/1.73 m2 CREATININE (test code 0.90 MG/DL 0.52-1.04 N = CREAT) CALCIUM (test code = 10.3 MG/DL 8.4-10.2 H CA) BASIC METABOLIC [id number] 13:38:00 Test Item Value Reference Range Interpretation Comments SODIUM (test code = 139 MMOL/L 137-145 N NA) POTASSIUM (test code = 3.8 MMOL/L 3.5-5.1 N K) CHLORIDE (test code = 101 MMOL/L 98-107 N CL) CARBON DIOXIDE (test MMOL/L 22-30 code = CO2) GLUCOSE (test code = MG/DL 74-106 GLU) BLOOD UREA NITROGEN MG/DL 7-17 (test code = BUN) GLOMERULAR FILTRATION 60 Report ing units: RATE (test code = GFR) ml/mi n/1.73 m2 (Modified MDRD Formula)Referen ce Range: > or = 6 0 ml/min/1.73 m2 CREATININE (test code 0.90 MG/DL 0.52-1.04 N = CREAT) CALCIUM (test code = MG/DL 8.7-9.7 CA) BASIC METABOLIC [id number] 13:36:00 Test Item Value Reference Range Interpretation Comments SODIUM (test code = NA) 139 MMOL/L 137-145 N POTASSIUM (test code = K) 3.8 MMOL/L 3.5-5.1 N CHLORIDE (test code = CL) 101 MMOL/L 98-107 N CARBON DIOXIDE (test code = CO2) MMOL/L 22-30 GLUCOSE (test code = GLU) MG/DL 74-106 BLOOD UREA NITROGEN (test code = MG/DL 7-17 BUN) GLOMERULAR FILTRATION RATE (test code = GFR) CREATININE (test code = CREAT) MG/DL 0.52-1.04 CALCIUM (test code = CA) MG/DL 8.7-9.7 BASIC METABOLIC [id number] 13:35:00 Test Item Value Reference Range Interpretation Comments SODIUM (test code = NA) MMOL/L 137-145 POTASSIUM (test code = K) MMOL/L 3.5-5.1 CHLORIDE (test code = CL) 101 MMOL/L 98-107 N CARBON DIOXIDE (test code = CO2) MMOL/L 22-30 GLUCOSE (test code = GLU) MG/DL 74-106 BLOOD UREA NITROGEN (test code = MG/DL 7-17 BUN) GLOMERULAR FILTRATION RATE (test code = GFR) CREATININE (test code = CREAT) MG/DL 0.52-1.04 CALCIUM (test code = CA) MG/DL 8.7-9.7 PROTHROMBIN [id number] 13:32:00 Test Item Value Reference Range Interpretation Comments PROTHROMBIN TIME 11.2 SECONDS 9.4-12.5 N PATIENT (test code = PTP) INTERNATIONAL NORMAL 1.0 The INR is to be RATIO (test code = used only for INR) monitoring oral anticoagulantth erap y. INDICATION I NR VALUE ---- ---- ---- -------1. Prophylaxis, de ep venous thrombos is, including hig h risk surgery. 2.0 - 3.0 2. Prophylaxis, de ep venous thrombos is, hip surgery, treatment for d eep venous thrombosis or pulmonary prevention of systemic emboli sm in patients wit h valvular heart disease, atrial fibrillation, tissue heart va lve, or acute myocar dial infarction. 2.0 - 3 .0 3. Mechanical prosthesis hear t valves, recurrent syste aga embolism. 3.0 - 4.5 PTT [id number] 13:32:00 Test Item Value Reference Range Interpretation Comments PTT ACTIVATED (test code = APTT) 35.5 SECONDS 25.1-36.5 N CBC W/AUTO [id number] 13:23:00 Test Item Value Reference Range Interpretation Comments WHITE BLOOD CELL (test code = 6.4 K/MM3 3.8-9.8 N WBC) RED BLOOD CELL (test code = 4.27 M/MM3 3.58-4.97 N RBC) HEMOGLOBIN (test code = HGB) 13.0 G/DL 11.2-14.9 N HEMATOCRIT (test code = HCT) 40.5 % 33.2-43.5 N MEAN CELL VOLUME (test code = 95 fL 80.7-99.1 N MCV) MEAN CELL HGB (test code = MCH) 30.4 pg 27.0-34.1 N MEAN CELL HGB CONCETRATION 32.1 % 32.2-35.7 L (test code = MCHC) RED CELL DISTRIBUTION WIDTH 13.9 % 12.1-15.2 N (test code = RDW) PLATELET COUNT (test code = 323 K/MM3 129-368 N PLT) MEAN PLATELET VOLUME (test code 10.2 fl 7.4-10.4 N = MPV) NEUTROPHIL % (test code = NT%) 61.1 % 43-75 N IMMATURE GRANULOCYTE % (test 0.3 % 0.0-2.0 N code = IG%) LYMPHOCYTE % (test code = LY%) 25.5 % 14-44 N MONOCYTE % (test code = MO%) 8.2 % 4-13 N EOSINOPHIL % (test code = EO%) 3.8 % 0-6 N BASOPHIL % (test code = BA%) 1.1 % 0-2 N NUCLEATED RBC % (test code = 0.0 % 0-1.0 N NRBC%) NEUTROPHIL # (test code = NT#) 3.90 K/mm3 2.0-7.6 N IMMATURE GRANULOCYTE # (test 0.02 x10 3/uL 0-0.03 N code = IG#) LYMPHOCYTE # (test code = LY#) 1.63 K/mm3 1.0-3.8 N MONOCYTE # (test code = MO#) 0.52 K/mm3 0.1-0.8 N EOSINOPHIL # (test code = EO#) 0.24 K/mm3 0.0-0.2 H BASOPHIL # (test code = BA#) 0.07 K/mm3 0.0-0.2 N NUCLEATED RBC # (test code = 0.00 K/mm3 0.0-0.1 N NRBC#) - XR CHEST 2 [id number] 13:16:00 Patient Name: DEBI GARRETT Unit No: [id number] EXAMS: CPT CODE: [id number] XR CHEST 2 V 71149 Site ID: [id number] HISTORY: Preoperative, right carotid endarterectomy FINDINGS: The lungs are clear and normally expanded. The heart and pulmonary vasculature is normal. Previous coronary artery stenting noted. Osseous structures are unremarkable. IMPRESSION: No acute cardiopulmonary finding at 1316 Reported and signed by: Laith Salcido MD CC: Poli Aaron Technologist: Britney Myers, RT (R) Transcrpt Date/Tm/Trnsp: 07/29/2019 (1316) [id number] Orig Print D/T: S: 07/29/2019 (2080) [facility] NAME: DEBI GARRETT [id number] PHYS: [place] [address] : 1935 AGE: 84 SEX: F LOC: JING PHONE #: [phone] EXAM DATE: 07/29/2019 STATUS: PRE IN FAX #: [phone] RADIOLOGY NO: PAGE 1 Signed ReportBASIC METABOLIC [id number] 06:23:00 Test Item Value Reference Range Interpretation Comments SODIUM (test code = 140 MMOL/L 137-145 N NA) POTASSIUM (test code = 3.8 MMOL/L 3.5-5.1 N K) CHLORIDE (test code = 101 MMOL/L 98-107 N CL) CARBON DIOXIDE (test 30 MMOL/L 22-30 N code = CO2) ANION GAP (test code = 13 MMOL/L 14-24 L GAP) GLUCOSE (test code = 120 MG/DL 74-106 H GLU) BLOOD UREA NITROGEN 17 MG/DL 7-17 N (test code = BUN) GLOMERULAR FILTRATION 53 Report ing units: RATE (test code = GFR) ml/mi n/1.73 m2 (Modified MDRD Formula)Referen ce Range: > or = 6 0 ml/min/1.73 m2 CREATININE (test code 1.00 MG/DL 0.52-1.04 N = CREAT) CALCIUM (test code = 10.8 MG/DL 8.4-10.2 H CA) LIPID PROFILE (CORONARY RISK)[id number] 06:23:00 Test Item Value Reference Range Interpretation Comments TRIGLYCERIDES (test 227 MG/DL TRIGLYCE RIDES code = TRIG) REFERENCE RANGE:Normal: < 150 mg/dLBorderline High: 150-199 mg/dLHi gh: 200-499 mg/dLVe ry High: >=500 mg/ dL CHOLESTEROL (test code 195 MG/DL <200 = CHOL) HDL CHOLESTEROL (test 48 MG/DL 40-59 N code = HDL) LIPOPROTEIN LDL (test 106 MG/DL 0-99 H code = LDL) OPTIMAL........ .<100 mg/dLNEAR OPTIMAL/ABOVE OPTIMAL........ .100-12 9 mg/dL BORDERLINE HIGH.........13 0-159 mg/dL HIGH.........16 0-189 mg/dL VERY HIGH...... ...>/= 190 mg/dL [id number] 06:23:00 Test Item Value Reference Range Interpretation Comments MAGNESIUM (test code = MAG) 2.2 MG/DL 1.6-2.3 N PROTHROMBIN [id number] 06:16:00 Test Item Value Reference Range Interpretation Comments PROTHROMBIN TIME 11.7 SECONDS 9.4-12.5 N PATIENT (test code = PTP) INTERNATIONAL NORMAL 1.1 The INR is to be RATIO (test code = used only for INR) monitoring oral anticoagulantth erap y. INDICATION I NR VALUE ---- ---- ---- -------1. Prophylaxis, de ep venous thrombos is, including hig h risk surgery. 2.0 - 3.0 2. Prophylaxis, de ep venous thrombos is, hip surgery, treatment for d eep venous thrombosis or pulmonary prevention of systemic emboli sm in patients wit h valvular heart disease, atrial fibrillation, tissue heart va lve, or acute myocar dial infarction. 2.0 - 3 .0 3. Mechanical prosthesis hear t valves, recurrent syste aga embolism. 3.0 - 4.5 PTT [id number] 06:16:00 Test Item Value Reference Range Interpretation Comments PTT ACTIVATED (test code = APTT) 33.9 SECONDS 25.1-36.5 N BASIC METABOLIC [id number] 06:11:00 Test Item Value Reference Range Interpretation Comments SODIUM (test code = 140 MMOL/L 137-145 N NA) POTASSIUM (test code = 3.8 MMOL/L 3.5-5.1 N K) CHLORIDE (test code = 101 MMOL/L 98-107 N CL) CARBON DIOXIDE (test 30 MMOL/L 22-30 N code = CO2) ANION GAP (test code = 13 MMOL/L 14-24 L GAP) GLUCOSE (test code = 120 MG/DL 74-106 H GLU) BLOOD UREA NITROGEN 17 MG/DL 7-17 N (test code = BUN) GLOMERULAR FILTRATION 53 Report ing units: RATE (test code = GFR) ml/mi n/1.73 m2 (Modified MDRD Formula)Referen ce Range: > or = 6 0 ml/min/1.73 m2 CREATININE (test code 1.00 MG/DL 0.52-1.04 N = CREAT) CALCIUM (test code = MG/DL 8.7-9.7 CA) LIPID PROFILE (CORONARY RISK)2019-07-19 06:11:00 Test Item Value Reference Range Interpretation Comments TRIGLYCERIDES (test 227 MG/DL TRIGLYCE RIDES code = TRIG) REFERENCE RANGE:Normal: < 150 mg/dLBorderline High: 150-199 mg/dLHi gh: 200-499 mg/dLVe ry High: >=500 mg/ dL CHOLESTEROL (test code 195 MG/DL <200 = CHOL) HDL CHOLESTEROL (test MG/DL 40-59 code = HDL) LIPOPROTEIN LDL (test MG/DL 0-99 code = LDL) [id number] 06:11:00 Test Item Value Reference Range Interpretation Comments MAGNESIUM (test code = MAG) MG/DL 1.6-2.3 BASIC METABOLIC [id number] 06:11:00 Test Item Value Reference Range Interpretation Comments SODIUM (test code = 140 MMOL/L 137-145 N NA) POTASSIUM (test code = 3.8 MMOL/L 3.5-5.1 N K) CHLORIDE (test code = 101 MMOL/L 98-107 N CL) CARBON DIOXIDE (test 30 MMOL/L 22-30 N code = CO2) ANION GAP (test code = 13 MMOL/L 14-24 L GAP) GLUCOSE (test code = 120 MG/DL 74-106 H GLU) BLOOD UREA NITROGEN 17 MG/DL 7-17 N (test code = BUN) GLOMERULAR FILTRATION 53 Report ing units: RATE (test code = GFR) ml/mi n/1.73 m2 (Modified MDRD Formula)Referen ce Range: > or = 6 0 ml/min/1.73 m2 CREATININE (test code 1.00 MG/DL 0.52-1.04 N = CREAT) CALCIUM (test code = 10.8 MG/DL 8.4-10.2 H CA) LIPID PROFILE (CORONARY RISK)2019-07-19 06:11:00 Test Item Value Reference Range Interpretation Comments TRIGLYCERIDES (test 227 MG/DL TRIGLYCE RIDES code = TRIG) REFERENCE RANGE:Normal: < 150 mg/dLBorderline High: 150-199 mg/dLHi gh: 200-499 mg/dLVe ry High: >=500 mg/ dL CHOLESTEROL (test code 195 MG/DL <200 = CHOL) HDL CHOLESTEROL (test 48 MG/DL 40-59 N code = HDL) LIPOPROTEIN LDL (test MG/DL 0-99 code = LDL) [id number] 06:11:00 Test Item Value Reference Range Interpretation Comments MAGNESIUM (test code = MAG) 2.2 MG/DL 1.6-2.3 N BASIC METABOLIC [id number] 06:08:00 Test Item Value Reference Range Interpretation Comments SODIUM (test code = NA) 140 MMOL/L 137-145 N POTASSIUM (test code = K) 3.8 MMOL/L 3.5-5.1 N CHLORIDE (test code = CL) 101 MMOL/L 98-107 N CARBON DIOXIDE (test code = CO2) MMOL/L 22-30 GLUCOSE (test code = GLU) MG/DL 74-106 BLOOD UREA NITROGEN (test code = MG/DL 7-17 BUN) GLOMERULAR FILTRATION RATE (test code = GFR) CREATININE (test code = CREAT) MG/DL 0.52-1.04 CALCIUM (test code = CA) MG/DL 8.7-9.7 LIPID PROFILE (CORONARY RISK)2019-07-19 06:08:00 Test Item Value Reference Range Interpretation Comments TRIGLYCERIDES (test code = TRIG) MG/DL CHOLESTEROL (test code = CHOL) MG/DL <200 HDL CHOLESTEROL (test code = HDL) MG/DL 40-59 LIPOPROTEIN LDL (test code = LDL) MG/DL 0-99 [id number] 06:08:00 Test Item Value Reference Range Interpretation Comments MAGNESIUM (test code = MAG) MG/DL 1.6-2.3 CBC W/AUTO [id number] 06:00:00 Test Item Value Reference Range Interpretation Comments WHITE BLOOD CELL (test code = 8.6 K/MM3 3.8-9.8 N WBC) RED BLOOD CELL (test code = 4.60 M/MM3 3.58-4.97 N RBC) HEMOGLOBIN (test code = HGB) 14.2 G/DL 11.2-14.9 N HEMATOCRIT (test code = HCT) 43.5 % 33.2-43.5 N MEAN CELL VOLUME (test code = 95 fL 80.7-99.1 N MCV) MEAN CELL HGB (test code = MCH) 30.9 pg 27.0-34.1 N MEAN CELL HGB CONCETRATION 32.6 % 32.2-35.7 N (test code = MCHC) RED CELL DISTRIBUTION WIDTH 14.1 % 12.1-15.2 N (test code = RDW) PLATELET COUNT (test code = 305 K/MM3 129-368 N PLT) MEAN PLATELET VOLUME (test code 10.0 fl 7.4-10.4 N = MPV) NEUTROPHIL % (test code = NT%) 69.1 % 43-75 N IMMATURE GRANULOCYTE % (test 0.4 % 0.0-2.0 N code = IG%) LYMPHOCYTE % (test code = LY%) 18.6 % 14-44 N MONOCYTE % (test code = MO%) 8.1 % 4-13 N EOSINOPHIL % (test code = EO%) 2.7 % 0-6 N BASOPHIL % (test code = BA%) 1.1 % 0-2 N NUCLEATED RBC % (test code = 0.0 % 0-1.0 N NRBC%) NEUTROPHIL # (test code = NT#) 5.94 K/mm3 2.0-7.6 N IMMATURE GRANULOCYTE # (test 0.03 x10 3/uL 0-0.03 N code = IG#) LYMPHOCYTE # (test code = LY#) 1.59 K/mm3 1.0-3.8 N MONOCYTE # (test code = MO#) 0.69 K/mm3 0.1-0.8 N EOSINOPHIL # (test code = EO#) 0.23 K/mm3 0.0-0.2 H BASOPHIL # (test code = BA#) 0.09 K/mm3 0.0-0.2 N NUCLEATED RBC # (test code = 0.00 K/mm3 0.0-0.1 N NRBC#)
[2020-08-12 23:25] LABS: Absolute Lymphocytes (CBC) 0.8 K/uL (0.7-4.9); Basophils % 0.3 % (0-1.3); Hematocrit 41.3 % (36.0-45.0); MPV 8.1 fL (7.6-11.3); RBC Red Blood Cell Count 4.62 M/uL (3.86-4.86)
[2020-08-12 23:35] LABS: Albumin 4.3 g/dL (3.4-5.0); Bilirubin Direct 0.2 mg/dL (0-0.2); Bilirubin Total 0.9 mg/dL (0.2-1.0); Potassium 3.2 mmol/L (3.5-5.1); Protein, Total 7.6 g/dL (6.4-8.2)
[2020-08-12] MEDS ORDERED: ONDANSETRON 4 MG/2 ML VIAL ONE (23:37)
[2020-08-12] MEDS ORDERED: NA CHLORIDE 0.9% 1,000 ML ONE (23:38)
[2020-08-12] MEDS ORDERED: FAMOTIDINE 20 MG/2 ML VIAL IV ONE (23:38)
[2020-08-13] LABS: Urine Blood Negative (Negative); Urine Glucose Negative (Negative); Urine Protein Negative (Negative)
[2020-08-13 00:03] LABS: Protime INR 1.12
[2020-08-13] MEDS ORDERED: NS KCL 20MEQ 1,000 ML IV ONE (00:42)
[2020-08-13 01:31] LABS: Magnesium 2.3 mg/dL (1.8-2.4); NT PRO-BNP 252 pg/mL (<450); Troponin (Emerg Dept Use Only) < 0.02 ng/mL (0.0-0.045)
[2020-08-13] MEDS ORDERED: CEFTRIAXONE/SWI 1gm 1 GM/10 ML SYR ONE (02:57)
--- NOTE | 2020-08-13 03:07 | EDPHYS ---
Physician Documentation [facility] Name: Leyda Ramos Age: 85 yrs Sex: Female : 1935 Arrival Date: 08/12/2020 Time: 21:24 Bed 15 Private MD: FLORA Physician Jim Fonseca HPI: 08/13 01:25 This 85 yrs old Female presents to ER via Wheelchair with complaints of loss kaiser of appetite, Nausea. 01:25 The patient presents to the emergency department with nausea, that is mild. Onset: The kaiser symptoms/episode began/occurred 3 day(s) ago. Possible causes: unknown. The symptoms are aggravated by food , The symptoms are alleviated by nothing. Associated signs and symptoms: Pertinent positives: nausea. Severity of symptoms: At their worst the symptoms were mild moderate in the emergency department the symptoms are unchanged. The patient has not experienced similar symptoms in the past. Historical: - Allergies: 08/12 21:29 Augmentin; ca1 21:29 Bactrim; ca1 21:29 Hydrocodone-Acetaminophen; ca1 21:29 PENICILLINS; ca1 - PMHx: 21:29 Chronic pain; pelvic; High Cholesterol; Hypertension; Hypothyroidism; leaking heart ca1 valve; - PSHx: 21:29 Heart stents; Tonsillectomy; ca1 - Immunization history:: Client reports receiving the 2nd dose of the Covid vaccine, Client reports receiving the 1st dose of the Covid vaccine, Pneumococcal vaccine is up to date, Flu vaccine is up to date. - Social history:: Smoking status: Patient/guardian denies using tobacco, the patient reports quitting approximately 46 years ago. ROS: 08/13 01:26 Constitutional: Negative for fever, chills, and weight loss, Eyes: Negative for injury, kaiser pain, redness, and discharge, ENT: Negative for injury, pain, and discharge, Neck: Negative for injury, pain, and swelling, Cardiovascular: Negative for chest pain, palpitations, and edema, Respiratory: Negative for shortness of breath, cough, wheezing, and pleuritic chest pain, Back: Negative for injury and pain, : Negative for injury, bleeding, discharge, and swelling, MS/Extremity: Negative for injury and deformity, Skin: Negative for injury, rash, and discoloration, Psych: Negative for depression, anxiety, suicide ideation, homicidal ideation, and hallucinations, Allergy/Immunology: Negative for hives, rash, and allergies, Endocrine: Negative for neck swelling, polydipsia, polyuria, polyphagia, and marked weight changes, Hematologic/Lymphatic: Negative for swollen nodes, abnormal bleeding, and unusual bruising. Abdomen/GI: Positive for abdominal pain, nausea, abdominal cramps. Exam: 01:26 Constitutional: This is a well developed, well nourished patient who is awake, alert, kaiser and in no acute distress. Head/Face: Normocephalic, atraumatic. Eyes: Pupils equal round and reactive to light, extra-ocular motions intact. Lids and lashes normal. Conjunctiva and sclera are non-icteric and not injected. Cornea within normal limits. Periorbital areas with no swelling, redness, or edema. ENT: Nares patent. No nasal discharge, no septal abnormalities noted. Tympanic membranes are normal and external auditory canals are clear. Oropharynx with no redness, swelling, or masses, exudates, or evidence of obstruction, uvula midline. Mucous membranes moist. Neck: Trachea midline, no thyromegaly or masses palpated, and no cervical lymphadenopathy. Supple, full range of motion without nuchal rigidity, or vertebral point tenderness. No Meningismus. Chest/axilla: Normal chest wall appearance and motion. Nontender with no deformity. No lesions are appreciated. Cardiovascular: Regular rate and rhythm with a normal S1 and S2. No gallops, murmurs, or rubs. Normal PMI, no JVD. No pulse deficits. Respiratory: Lungs have equal breath sounds bilaterally, clear to auscultation and percussion. No rales, rhonchi or wheezes noted. No increased work of breathing, no retractions or nasal flaring. Back: No spinal tenderness. No costovertebral tenderness. Full range of motion. Skin: Warm, dry with normal turgor. Normal color with no rashes, no lesions, and no evidence of cellulitis. MS/ Extremity: Pulses equal, no cyanosis. Neurovascular intact. Full, normal range of motion. Neuro: Awake and alert, GCS 15, oriented to person, place, time, and situation. Cranial nerves II-XII grossly intact. Motor strength 5/5 in all extremities. Sensory grossly intact. Cerebellar exam normal. Normal gait. Psych: Awake, alert, with orientation to person, place and time. Behavior, mood, and affect are within normal limits. 01:26 ECG was reviewed by the Attending Physician. 01:26 Abdomen/GI: Inspection: abdomen appears normal, Bowel sounds: normal, Palpation: mild abdominal tenderness, in all quadrants, Liver: no appreciated palpable abnormalities, Hernia: not appreciated. Vital Signs: 08/12 21:25 BP 158 / 75; Pulse 63; Resp 18 S; Temp 98.3(O); Pulse Ox 96% on R/A; Weight 54.43 kg ca1 (R); Height 5 ft. 0 in. (152.40 cm) (R); 22:41 BP 178 / 75; Pulse 64; Resp 19; Pulse Ox 98% on R/A; ea 08/13 00:16 BP 173 / 64; Pulse 62; Resp 18; Pulse Ox 98% ; ea 01:30 BP 167 / 64; Pulse 64; Resp 16; Pulse Ox 98% ; ea 02:30 BP 167 / 63; Pulse 64; Resp 18; Pulse Ox 98% ; ea 03:15 BP 159 / 63; Pulse 66; Resp 16; Temp 98; Pulse Ox 98% ; ea 08/12 21:25 Body Mass Index 23.44 (54.43 kg, 152.40 cm) ca1 MDM: 08/12 22:32 Patient medically screened. kaiser 08/13 01:28 Differential diagnosis: Nonspecific abd pain, gastritis, cholecystitis, pancreatitis, kaiser diverticulitis. Data reviewed: vital signs, nurses notes, lab test result(s), EKG, radiologic studies, CT scan, plain films. Data interpreted: front desk monitor: rate is 62 beats/min, rhythm is regular, Pulse oximetry: on room air is 98 %. Test interpretation: by ED physician or midlevel provider: ECG, plain radiologic studies. Counseling: I had a detailed discussion with the patient and/or guardian regarding: the historical points, exam findings, and any diagnostic results supporting the discharge/admit diagnosis, lab results, radiology results. 08/12 22:38 Order name: Basic Metabolic Panel; Complete Time: 00:18 ea 08/12 22:38 Order name: CBC with Diff; Complete Time: 00:18 ea 08/12 22:38 Order name: Hepatic Function; Complete Time: 00:18 ea 08/12 22:38 Order name: Lipase; Complete Time: 00:18 ea 08/12 23:12 Order name: Magnesium [facility] 08/12 23:12 Order name: NT PRO-BNP; Complete Time: 01:49 [facility] 08/12 23:12 Order name: PT-INR; Complete Time: 00:18 [facility] 08/12 23:12 Order name: Troponin (emerg Dept Use Only); Complete Time: 01:49 [facility] 08/12 23:12 Order name: Urine Culture [facility] 08/12 23:12 Order name: Magnesium; Complete Time: 01:49 [facility] 08/13 00:00 Order name: Urine Dipstick-Ancillary; Complete Time: 00:18 [facility] 08/13 01:23 Order name: COVID-19 : Document "Date of Symptom Onset" if Symptomatic. [facility] 08/13 02:43 Order name: SARS-COV-2 RT PCR; Complete Time: 02:58 [facility] 08/12 22:38 Order name: IV Saline Lock; Complete Time: 22:58 08/12 22:38 Order name: Labs collected and sent; Complete Time: 22:58 08/12 23:12 Order name: XRAY Chest (1 view) [facility] 08/12 23:12 Order name: EKG; Complete Time: 23:12 [facility] 08/12 23:12 Order name: Cardiac monitoring; Complete Time: 00:01 [facility] 08/12 23:12 Order name: EKG - Nurse/Tech; Complete Time: 00:01 [facility] 08/12 23:12 Order name: O2 Per Protocol; Complete Time: 23:14 [facility] 08/12 23:12 Order name: O2 Sat Monitoring; Complete Time: 23:14 [facility] 08/12 23:12 Order name: CT Abd/Pelvis - PO and IV Contrast [facility] 08/12 23:12 Order name: Urine Dipstick-Ancillary (obtain specimen); Complete Time: 00:00 [facility] EC:26 Rate is 68 beats/min. Rhythm is regular. QRS [place] is Normal. [place] interval is normal. QRS kaiser interval is normal. QT interval is normal. No Q waves. T waves are Inverted in leads I, aVL, V1, V2, V3. No ST changes noted. Clinical impression: NSR w/ Non-specific ST/T Changes and No evidence of ischemia. Interpreted by me. Reviewed by me. Administered Medications: 08/12 23:27 Drug: Pepcid (famotidine) 20 mg Route: IVP; Site: right forearm; ea 08/13 02:33 Follow up: Response: No adverse reaction ea 03:11 Follow up: Response: No adverse reaction ea 08/12 23:27 Drug: Zofran (Ondansetron) 4 mg Route: IVP; Site: right forearm; ea 08/13 02:33 Follow up: Response: No adverse reaction ea 03:11 Follow up: Response: No adverse reaction ea 08/12 23:28 Drug: NS 0.9% 1000 ml Route: IV; Rate: 1 bolus; Site: right forearm; ea 08/13 03:10 Follow up: IV Status: Completed infusion ea 00:46 Drug: NS 0.9% with KCl 20 mEq/L 1000 ml Route: IV; Rate: 500 ml/hr; Site: right forearm;ea 02:49 Drug: Rocephin (cefTRIAXone) 1 grams Route: IV; Rate: per protocol; Site: right forearm;ea 03:10 Follow up: Response: No adverse reaction; IV Status: Completed infusion ea Disposition: 08/13/20 03:06 Discharged to Home. Impression: Urinary tract infection, site not specified, Hypokalemia, Nausea, Atherosclerosis of aorta - severe. - Condition is Stable. - Discharge Instructions: Potassium Content of Foods, Nausea, Adult, Urinary Tract Infection, Adult, Urinary Tract Infection, Adult, [id number], Hypokalemia. - Prescriptions for Zofran ODT 4 mg Oral tablet,disintegrating - place 1 tablet by TRANSLINGUAL route every 8 hours; 20 tablet. Cipro 250 mg Oral Tablet - take 1 tablet by ORAL route every 12 hours; 10 tablet. Pepcid 20 mg Oral Tablet - take 1 tablet by ORAL route every 12 hours for 10 days; 20 tablet. - Medication Reconciliation Form, Thank You Letter, Antibiotic Education, Prescription Opioid Use form. - Follow up: Private Physician; When: 2 - 3 days; Reason: Recheck today's complaints, Continuance of care, Re-evaluation by your physician. Follow up: Wilbur Wilson MD; When: 2 - 3 days; Reason: Recheck today's complaints, Continuance of care, Re-evaluation by your physician. - Problem is new. - Symptoms have improved. Signatures: Dispatcher [employer] EDJim Linares MD MD cha Antunez, Elena RN RN ea Acob, Sayda, RN RN ca1 Corrections: (The following items were deleted from the chart) 01:58 01:24 CORONAVIRUS ordered. EDMS EDMS 03:10 03:06 08/13/2020 03:06 Discharged to Home. Impression: Urinary tract infection, site kaiser not specified; Hypokalemia; Nausea. Condition is Stable. Forms are Medication Reconciliation Form, Thank You Letter, Antibiotic Education, Prescription Opioid Use. Follow up: Private Physician; When: 2 - 3 days; Reason: Recheck today's complaints, Continuance of care, Re-evaluation by your physician. Follow up: Wilbur Wilson; When: 2 - 3 days; Reason: Recheck today's complaints, Continuance of care, Re-evaluation by your physician. Problem is new. Symptoms have improved. kaiser 03:25 03:10 08/13/2020 03:06 Discharged to Home. Impression: Urinary tract infection, site ea not specified; Hypokalemia; Nausea; Atherosclerosis of aorta - severe. Condition is Stable. Discharge Instructions: Potassium Content of Foods, Nausea, Adult, Urinary Tract Infection, Adult, Urinary Tract Infection, Adult, [id number], Hypokalemia. Prescriptions for Zofran ODT 4 mg Oral tablet,disintegrating - place 1 tablet by TRANSLINGUAL route every 8 hours; 20 tablet, Cipro 250 mg Oral Tablet - take 1 tablet by ORAL route every 12 hours; 10 tablet, Pepcid 20 mg Oral Tablet - take 1 tablet by ORAL route every 12 hours for 10 days; 20 tablet. and Forms are Medication Reconciliation Form, Thank You Letter, Antibiotic Education, Prescription Opioid Use. Follow up: Private Physician; When: 2 - 3 days; Reason: Recheck today's complaints, Continuance of care, Re-evaluation by your physician. Follow up: Wilbur Wilson; When: 2 - 3 days; Reason: Recheck today's complaints, Continuance of care, Re-evaluation by your physician. Problem is new. Symptoms have improved. kaiser
--- NOTE | 2020-08-13 03:07 | ER ---
Nurse's Notes [facility] Name: Leyda Ramos Age: 85 yrs Sex: Female : 1935 Arrival Date: 08/12/2020 Time: 21:24 Bed 15 Private MD: Diagnosis: Urinary tract infection, site not specified;Hypokalemia;Nausea;Atherosclerosis of aorta-severe Presentation: 08/12 21:25 Chief complaint: Patient's son or daughter states: She's been feeling sick for a week ca1 now, but today, she doesn't want to eat and every time she eats, she'd gag and nauseous. Coronavirus screen: Client denies travel out of the [place] in the last 14 days. nausea, Client presents with at least one sign or symptom that may indicate coronavirus-19. Standard/surgical mask placed on the client. Provider contacted for isolation considerations. Ebola Screen: Patient negative for fever greater than or equal to 101.5 degrees Fahrenheit, and additional compatible Ebola Virus Disease symptoms Patient denies exposure to infectious person. Patient denies travel to an Ebola-affected area in the 21 days before illness onset. No symptoms or risks identified at this time. Initial Sepsis Screen: Does the patient meet any 2 criteria? No. Patient's initial sepsis screen is negative. Does the patient have a suspected source of infection? No. Patient's initial sepsis screen is negative. Risk Assessment: Do you want to hurt yourself or someone else? Patient reports no desire to harm self or others. Onset of symptoms was August 12, 2020. 21:25 Method Of Arrival: Wheelchair ca1 21:25 Acuity: EVELIO 3 ca1 Historical: - Allergies: 21:29 Augmentin; ca1 21:29 Bactrim; ca1 21:29 Hydrocodone-Acetaminophen; ca1 21:29 PENICILLINS; ca1 - PMHx: 21:29 Chronic pain; pelvic; High Cholesterol; Hypertension; Hypothyroidism; leaking heart ca1 valve; - PSHx: 21:29 Heart stents; Tonsillectomy; ca1 - Immunization history:: Client reports receiving the 2nd dose of the Covid vaccine, Client reports receiving the 1st dose of the Covid vaccine, Pneumococcal vaccine is up to date, Flu vaccine is up to date. - Social history:: Smoking status: Patient/guardian denies using tobacco, the patient reports quitting approximately 46 years ago. Screenin:39 Abuse screen: Denies threats or abuse. Nutritional screening: No deficits noted. ea Tuberculosis screening: No symptoms or risk factors identified. Fall Risk None identified. Assessment: 22:40 General: Appears in no apparent distress. Behavior is calm, cooperative, appropriate ea for age. Pain: Denies pain. Neuro: Level of Consciousness is awake, alert, obeys commands, Oriented to person, place, time. Cardiovascular: Patient's skin is warm and dry. Respiratory: Airway is patent Respiratory effort is even, unlabored, Respiratory pattern is regular, symmetrical. GI: Abdomen is non-distended, Reports nausea. Derm: Skin is pink, warm \T\ dry. 08/13 00:16 Reassessment: Patient and/or family updated on plan of care and expected duration. Pain ea level reassessed. Patient is alert, oriented x 3, equal unlabored respirations, skin warm/dry/pink. 01:30 Reassessment: Patient and/or family updated on plan of care and expected duration. Pain ea level reassessed. Patient is alert, oriented x 3, equal unlabored respirations, skin warm/dry/pink. 02:55 Reassessment: Patient and/or family updated on plan of care and expected duration. Pain ea level reassessed. Patient is alert, oriented x 3, equal unlabored respirations, skin warm/dry/pink. Provider at bedside updating pt on plan of care. 03:23 Reassessment: Patient and/or family updated on plan of care and expected duration. Pain ea level reassessed. Patient is alert, oriented x 3, equal unlabored respirations, skin warm/dry/pink. Discharge instruction given to patient verbalized the understanding of instruction. Pt left ED ambulatory tolerating well. Vital Signs: 08/12 21:25 BP 158 / 75; Pulse 63; Resp 18 S; Temp 98.3(O); Pulse Ox 96% on R/A; Weight 54.43 kg ca1 (R); Height 5 ft. 0 in. (152.40 cm) (R); 22:41 BP 178 / 75; Pulse 64; Resp 19; Pulse Ox 98% on R/A; ea 08/13 00:16 BP 173 / 64; Pulse 62; Resp 18; Pulse Ox 98% ; ea 01:30 BP 167 / 64; Pulse 64; Resp 16; Pulse Ox 98% ; ea 02:30 BP 167 / 63; Pulse 64; Resp 18; Pulse Ox 98% ; ea 03:15 BP 159 / 63; Pulse 66; Resp 16; Temp 98; Pulse Ox 98% ; ea 08/12 21:25 Body Mass Index 23.44 (54.43 kg, 152.40 cm) ca1 ED Course: 08/12 21:24 Patient arrived in ED. ca1 21:27 Triage completed. ca1 21:29 Arm band placed on right wrist. ca1 22:32 Jim Fonseca MD is Attending Physician. kaiser 22:37 Bibi Bravo, JOSÉ is Primary Nurse. ea 22:39 Patient has correct armband on for positive identification. Bed in low position. Call ea light in reach. Side rails up X 1. Adult w/ patient. Pulse ox on. NIBP on. 22:58 Inserted saline lock: 22 gauge in right forearm, using aseptic technique. Inserted ea saline lock: 24 gauge in left forearm, using aseptic technique. ,using aseptic technique. per [employer] geospatial technician Blood collected. 23:50 XRAY Chest (1 view) In Process Unspecified. EDMS 08/13 01:56 CT Abd/Pelvis - PO and IV Contrast In Process Unspecified. EDMS 03:05 Wilbur Wilson MD is Referral Physician. kaiser 03:10 No provider procedures requiring assistance completed. ea 03:23 IV discontinued, intact, bleeding controlled, No redness/swelling at site. Pressure ea dressing applied. Administered Medications: 08/12 23:27 Drug: Pepcid (famotidine) 20 mg Route: IVP; Site: right forearm; ea 08/13 02:33 Follow up: Response: No adverse reaction ea 03:11 Follow up: Response: No adverse reaction ea 08/12 23:27 Drug: Zofran (Ondansetron) 4 mg Route: IVP; Site: right forearm; ea 08/13 02:33 Follow up: Response: No adverse reaction ea 03:11 Follow up: Response: No adverse reaction ea 08/12 23:28 Drug: NS 0.9% 1000 ml Route: IV; Rate: 1 bolus; Site: right forearm; ea 08/13 03:10 Follow up: IV Status: Completed infusion ea 00:46 Drug: NS 0.9% with KCl 20 mEq/L 1000 ml Route: IV; Rate: 500 ml/hr; Site: right forearm;ea 02:49 Drug: Rocephin (cefTRIAXone) 1 grams Route: IV; Rate: per protocol; Site: right forearm;ea 03:10 Follow up: Response: No adverse reaction; IV Status: Completed infusion ea Outcome: 03:06 Discharge ordered by . kaiser 03:22 Discharged to home ambulatory, with family. simon 03:22 Condition: stable 03:22 Discharge instructions given to patient, family, Instructed on discharge instructions, follow up and referral plans. medication usage, Demonstrated understanding of instructions, follow-up care, medications, Prescriptions given X 4. 03:25 Patient left the ED. ea Signatures: Dispatcher [employer] EDMS Jim Fonseca MD MD cha Antunez, Elena, RN RN Sayda Turpin RN RN ca1
[2020-08-13 03:33] VITALS: O2SAT 98
[2020-08-13 03:40] VITALS: BP 159/63; TEMP 98
--- NOTE | 2020-08-13 08:40 | RAD REPORT ---
EXAM DESCRIPTION: RAD - Chest Single View - 08/12/2020 11:50 pm CLINICAL HISTORY: ABDOMINAL DISTENTION Chest pain. COMPARISON: Chest Pa And Lat (2 Views) dated 04/22/2018; Chest Single View dated 02/12/2016; CHEST PA AND LAT 2 VIEW dated 01/02/2012; CHEST PA AND LAT 2 VIEW dated 04/18/2011 FINDINGS: Portable technique limits examination quality. The lungs are mildly underinflated but grossly clear. The heart is normal in size. No displaced fract ures.
--- NOTE | 2020-08-13 10:14 | RAD REPORT ---
EXAM DESCRIPTION: CT ABDOMEN PELVIS WITH IV CONTRAST CLINICAL HISTORY: ABD PAIN TECHNIQUE: Contiguous axial images obtained through the abdomen and pelvis following the uneventful administration of IV contrast. Coronal and sagittal reformatted images were provided. This exam was performed according to our departmental dose-optimization program, which includes autom ated exposure control, adjustment of the mA and/or kV according to patient size and/or use of iterati ve reconstruction technique. COMPARISON: 01/20/2018 FINDINGS: Lung bases: Left lower lobe calcified granuloma. Coronary artery calcification. Liver: The liver is enlarged and mildly diffusely low in density compatible with steatosis. Gallbladder and biliary system: Unremarkable Pancreas: Mild fatty replacement of the pancreatic parenchyma. Spleen: Stable subcentimeter splenic hypodensity which cannot be fully characterized. Adrenals: Unremarkable Kidneys: Normal renal cortical enhancement. 1.7 cm exophytic cyst at the lower pole on the right (pre viously 1.3 cm). Additional subcentimeter cortical hypodensities bilaterally, right greater than left which cannot be fully characterized. No calculi. No hydronephrosis. Bowel: Moderate stool. Colonic diverticula without adjacent inflammatory change. No obstruction. No a ppreciable mucosal thickening. Appendix: Normal caliber appendix. No findings to suggest acute appendicitis. Urinary bladder: Unremarkable Reproductive: Unremarkable as visualized Lymph nodes: No pathologically enlarged lymph nodes. Peritoneum: No focal fluid collection. No free air. Vessels: Moderate to severe atherosclerotic disease. Prominent localized calcified plaque at the infr arenal abdominal aorta with severe luminal narrowing again demonstrated (series 501 image 28). No abd ominal aortic aneurysm. Abdominal wall: Unremarkable Bones: Multilevel spondylosis. No acute fracture. IMPRESSION: 1. No acute inflammatory process within the abdomen and pelvis. 2. Moderate stool. No bowel obstruction. 3. Other findings as above. Electronically signed by: Devin Lopez MD 08/13/2020 2:46 AM CDT Due to temporary technical issues with the PACS/Fluency reporting system, reports are being signed by the in house radiologist without review as a courtesy to ensure prompt reporting. The interpreting r adiologist is fully responsible for the content of the report.
== END 2020-08-13 03:25 | disposition home or self-care (01) ==
LOC: ER 21:06
DX: N39.0 Urinary tract infection, site not specified (principal); E87.6 Hypokalemia; I70.0 Atherosclerosis of aorta; I10 Essential (primary) hypertension; Z20.822 Contact with and (suspected) exposure to COVID-19; Z95.818 Presence of other cardiac implants and grafts; Z88.0 Allergy status to penicillin; Z88.1 Allergy status to other antibiotic agents; Z88.5 Allergy status to narcotic agent
CPT/HCPCS: 96365; 96361; 93005; 87088; 85025; 87086; 80048; 36415; 83735; 85610; 80076; 81003; 84484; 83690; 83880; 74177; 71045; 96375; 99284; U0003; Q9967; J0696; J7030; J2405; J3480

== ENCOUNTER 2020-09-28 12:41 | Inpatient (IN) | payer OTHER ==
--- OUTSIDE RECORDS SUMMARY | 2020-09-28 12:50 | XMS REPORT | Continuity of Care Document ---
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 knee, R [id number] 16:15:00Adrianna Miranda MD 12/18/2019 9:29 AMLarge Joint [...] tolerated the procedure well with no immediate complicationsPhilmont MethodistLipid [id number] 16:09:00 Test Item Value Reference Range Interpretation Comments Cholesterol, total 191 mg/dL <200 (test code = 2093-3) HDL cholesterol 52 mg/dL See_Comment [Automated (test code = 2085-9) message ] The system which generated this result transmitted reference range : > OR = 50. The reference range was not used to interpret this result as normal/abnormal . Triglycerides (test 164 mg/dL <150 H code = 2571-8) LDL cholesterol 111 mg/dL (calc) H Reference ra nge: calculated (test <100 Desira ble code = 78543-3) range <100 m g/dL for primary prevention; <7 0 mg/dL for patients with C HD or diabetic patients with > or = 2 CHD risk factors. LDL-C is now calculated using the Geoff-Lake calculation, which is a validated novel method providin g better accuracy than the Friedewald equation in the estimation of LDL-C. Geoff S S et al. MARY. 2013;310(19): 2835-3901 (http://educati on .E[employer] ExchangeDiagnFeniksi [employer] .com/faq/WIM235 ) Cholesterol/HDL 3.7 See_Comment [Automated ratio (test code = message] The 9830-1) system which generated this result transmitted reference range : <5.0 (calc). Th e reference range was not used to interpret this result as normal/abnormal . Non-HDL cholesterol 139 See_Comment H For rolly ents with (test code = diabetes plus 1 93180-5) major ASCVD ris k factor, treatin g to a non-HDL-C goal of <100 mg/dL (LDL-C of <70 mg/dL) is considered a therapeutic option. [Automated message] The system which generated this result transmitted reference range : <130 mg/dL (calc). The reference range was not used to interpret this result as normal/abnormal . RAC (test code = Performing RAC) Organization Information: Site ID: RGA Name: [facility] Address: [address] [place] [id number] Director: Robi Rodas Lab Interpretation Abnormal (test code = 63296-7) [facility] MethodistHemoglobin [id number] 16:09:00 Test Item Value Reference Range Interpretation [...] specif ic patient populat ions. Standards of Vt dical Care in Diabetes(ADA). [Automated mess age] The system [facility] generated this result transmitted ref erence range: <5.7 % o f total Hgb. The reference range was not used to int erpret this result as normal/abnormal . RAC (test code = Performing RAC) Organization Information: Site ID: SAL Name: [facility] Address: [address] [place] [address] Director: Robi Rodas [facility] VoodooVitamin D 25 hydroxy [id number] 16:09:00 Test Item Value Reference Range Interpretation Comments Vitamin D, 55 ng/mL 30-100 Vitamin D Statu s 25-hydroxy 25-OH Susan min (test code = D: Deficiency: 1989-) < 20 ng/mLInsufficie ncy: 20 - 29 ng/mLOptimal: > or = 30 ng/mL For 25-OH Vitamin D testi ng on patients on D2-supplementat ion and patients fo r whom quantitati on of D2 and D3 fractions is required, the QuestAssureD(TM )25- OH VIT D, (D2,D 3), LC/MS/MS is recommended: or cassia code 68380 (patients >2yrs).See Note 1 Note 1 For additional information, pl ease refer to http://educatio n.[employer]. [employer]/ faq/KJQ706 (Thi s link is being provided for informational/e duca tional purposes only.) RAC (test code Performing = RAC) Organization Information: Site ID: SAL Name: [email or web address] Lab Address: [address] [place] [address] Director: Robi Rodas [place] VoodooTroponin I [id number] 12:00:00 Test Item Value Reference Range Interpretation Comments Troponin I (test code = 98835-4) 0.389 ng/mL [facility] (moles/volume)2019-09-25 04:50:00 Test Item Value Reference Range Interpretation Comments Sodium Level (test code = 84641-3) 139 mmol/L [facility] or plasma potassium measurement (moles/volume)2019-09-25 04:50:00 Test Item Value Reference Range Interpretation Comments Potassium Level (test code = 4.3 mmol/L 2823-3) [facility] or plasma chloride measurement (moles/volume) 2019-09-25 04:50:00 Test Item Value Reference Range Interpretation Comments Chloride Level (test code = 105 mmol/L 2075-0) [facility] or plasma carbon dioxide measurement (moles/volume)2019-09-25 04:50:00 Test Item Value Reference Range Interpretation Comments Carbon Dioxide Level (test code = 27 mmol/L 2027-9) [facility] or plasma anion [id number] 04:50:00 Test Item Value Reference Range Interpretation Comments Anion Gap (test code = 56630-4) 7.0 mmol/L [facility] or plasma urea nitrogen measurement (mass/volume)2019-09-25 04:50:00 Test Item Value Reference Range Interpretation Comments Blood Urea Nitrogen (test code = 23.0 mg/dL 3094-0) [facility] or plasma creatinine measurement (mass/volume)2019-09-25 04:50:00 Test Item Value Reference Range Interpretation Comments Creatinine (test code = 2160-0) 0.958 mg/dL [facility] [id number] 04:50:00 Test Item Value Reference Range Interpretation Comments Estimat Glomerular Filtration Rate 56 (test code = 31420-5) [facility] or plasma glucose measurement (mass/volume) 2019-09-25 04:50:00 Test Item Value Reference Range Interpretation Comments Glucose Level (test code = 2345-7) 102 mg/dL [facility] or plasma calcium measurement (mass/volume) 2019-09-25 04:50:00 Test Item Value Reference Range Interpretation Comments Calcium Level (test code = 01950-9) 9.5 mg/dL [facility] or plasma creatine kinase MB measurement (mass/volume)2019-09-25 04:50:00 Test Item Value Reference Range Interpretation Comments Creatine Kinase MB (test code = 3.3 ng/mL 99690-7) [facility] or plasma C reactive protein measurement (mass/volume)2019-09-25 04:50:00 Test Item Value Reference Range Interpretation Comments C-Reactive Protein, Quantitative < 0.29 mg/dL (test code = 1988-5) [facility] leukocyte count (number/volume) 2019-09-25 04:50:00 Test Item Value Reference Range Interpretation Comments White Blood Count (test code = 7.7 10*3/uL 6690-2) [facility] automated count (number/volume) 2019-09-25 04:50:00 Test Item Value Reference Range Interpretation Comments Red Blood Count (test code = 4.20 10*6/uL 789-8) [facility] hemoglobin measurement (mass/volume) 2019-09-25 04:50:00 Test Item Value Reference Range Interpretation Comments Hemoglobin (test code = 718-7) 12.3 g/dL [facility]ary[facility] blood hematocrit (volume fraction) 2019-09-25 04:50:00 Test Item Value Reference Range Interpretation Comments Hematocrit (test code = 4544-3) 38.4 % [facility]aryAutom[facility] erythrocyte mean corpuscular volume (MCV) jccaywfmqmw6756-33-88 04:50:00 Test Item Value Reference Range Interpretation Comments Mean Corpuscular Volume (test code = 91.4 fL 787-2) [facility]ary[facility] erythrocyte mean corpuscular hemoglobin (mass per erythrocyte)2019-09-25 04:50:00 Test Item Value Reference Range Interpretation Comments Mean Corpuscular Hemoglobin (test 29.3 pg code = 785-6) [facility]ary[facility] erythrocyte mean corpuscular hemoglobin concentration (MCHC) measurement ([id number] 04:50:00 Test Item Value Reference Range Interpretation Comments Mean Corpuscular Hemoglobin Concent 32.0 % (test code = 786-4) [facility]ary[facility] erythrocyte distribution width ratio 2019-09-25 04:50:00 Test Item Value Reference Range Interpretation Comments Red Cell Distribution Width (test code 13.0 % = 788-0) [facility]aryAutom[facility] blood platelet count (count/volume) 2019-09-25 04:50:00 Test Item Value Reference Range Interpretation Comments Platelet Count (test code = 287 10*3/uL 777-3) [facility]ary[facility] platelet mean volume measurement 2019-09-25 04:50:00 Test Item Value Reference Range Interpretation Comments Mean Platelet Volume (test code = 10.2 fL 41762-9) [facility] neutrophil count as percentage of total mogelqlkhw2814-02-51 04:50:00 Test Item Value Reference Range Interpretation Comments Neutrophils (%) (Auto) (test code = 67.2 % 770-8) [facility] immature granulocyte count as percentage of total xnglnbakhn4445-75-91 04:50:00 Test Item Value Reference Range Interpretation Comments Immature Granulocyte % (Auto) (test 0.50 % code = 57127-4) [facility] count as percentage of total rzprqyrkwx4620-27-04 04:50:00 Test Item Value Reference Range Interpretation Comments Lymphocytes (%) (Auto) (test code = 20.4 % 736-9) [facility] monocyte count as percentage of total ggxajppsrw5637-97-26 04:50:00 Test Item Value Reference Range Interpretation Comments Monocytes (%) (Auto) (test code = 8.0 % 5905-5) [facility] eosinophil count as percentage of total ddvuvqfabz4662-07-64 04:50:00 Test Item Value Reference Range Interpretation Comments Eosinophils (%) (Auto) (test code = 3.1 % 713-8) [facility] basophil count as percentage of total wnovmurqge0245-88-07 04:50:00 Test Item Value Reference Range Interpretation Comments Basophils (%) (Auto) (test code = 0.8 % 706-2) [facility] nucleated erythrocyte count as percentage of total vgifsjxhzz8076-22-72 04:50:00 Test Item Value Reference Range Interpretation Comments Nucleated Red Blood Cells % (test code 0.0 % = 34486-1) [facility] neutrophil count (number/volume) 2019-09-25 04:50:00 Test Item Value Reference Range Interpretation Comments Neutrophils # (Auto) (test code = 5.2 10*3/uL 751-8) [facility] blood immature granulocyte count as percentage of total sroppyohmo8039-40-08 04:50:00 Test Item Value Reference Range Interpretation Comments Immature Granulocyte # (Auto) (test 0.0400 code = 41603-1) [facility] lymphocyte count (number/volume) 2019-09-25 04:50:00 Test Item Value Reference Range Interpretation Comments Lymphocytes # (Auto) (test code = 1.6 10*3/uL 731-0) [facility] monocytes automated count (number/volume) 2019-09-25 04:50:00 Test Item Value Reference Range Interpretation Comments Monocytes # (Auto) (test code = 0.6 10*3/uL 742-7) [facility] eosinophil nsbzm2070-33-80 04:50:00 Test Item Value Reference Range Interpretation Comments Eosinophils # (Auto) (test code = 0.2 10*3/uL 711-2) [facility] basophil count (number/volume) 2019-09-25 04:50:00 Test Item Value Reference Range Interpretation Comments Basophils # (Auto) (test code = 0.1 10*3/uL 704-7) [facility] leukocyte count corrected for nucleated kuxuolmysxhz2765-60-71 04:50:00 Test Item Value Reference Range Interpretation Comments Nucleated Red Blood Cells # (test code 0.000 = 65603-9) [facility] erythrocyte sedimentation rate (ESR) measurement by photometricmethod (length/y3844-26-71 04:50:00 Test Item Value Reference Range Interpretation Comments Erythrocyte Sedimentation Rate (test 7 mm/h code = 86383-9) [facility] plasma magnesium measurement (mass/volume) 2019-09-24 22:42:00 Test Item Value Reference Range Interpretation Comments Magnesium Level (test code = 2.3 mg/dL 65427-4) [facility] or plasma total bilirubin measurement (mass/volume)2019-09-24 22:42:00 Test Item Value Reference Range Interpretation Comments Total Bilirubin (test code = 0.4 mg/dL 1974-2) [facility] or plasma aspartate aminotransferase measurement (enzymatic activity/volume)2019-09-24 22:42:00 Test Item Value Reference Range Interpretation Comments Aspartate Amino Transf (AST/SGOT) 27 U/L (test code = 1920-8) [facility] or plasma alanine aminotransferase measurement (enzymatic activity/volume)2019-09-24 22:42:00 Test Item Value Reference Range Interpretation Comments Alanine Aminotransferase (ALT/SGPT) 29 U/L (test code = 1742-6) [facility] or plasma protein measurement (mass/volume) 2019-09-24 22:42:00 Test Item Value Reference Range Interpretation Comments Total Protein (test code = 2885-2) 8.1 g/dL [facility] or plasma albumin measurement (mass/volume) 2019-09-24 22:42:00 Test Item Value Reference Range Interpretation Comments Albumin (test code = 1751-7) 4.3 g/dL [facility] or plasma alkaline phosphatase measurement (enzymatic activity/volume)2019-09-24 22:42:00 Test Item Value Reference Range Interpretation Comments Alkaline Phosphatase (test code = 53 U/L 6768-6) [facility]aryLactate ser/ucsx8503-55-80 22:42:00 Test Item Value Reference Range Interpretation Comments Lactic Acid Level (test code = 1.0 mmol/L 2524-7) [facility] or plasma creatine kinase measurement (enzymatic activity/volume)2019-09-24 22:42:00 Test Item Value Reference Range Interpretation Comments Total Creatine Kinase (test code = 413 U/L 2157-6) [facility] or plasma total creatine kinase/creatine kinase MB isoenzyme activity [id number] 22:42:00 Test Item Value Reference Range Interpretation Comments Creatine Kinase MB Relative Index (test 0.5 % code = 2158-4) [facility]aryTroponin I izvphxufc8473-66-67 22:42:00 Test Item Value Reference Range Interpretation Comments Troponin I (test code = 38663-3) 0.059 ng/mL [facility] or plasma brain natriuretic peptide (BNP) fqyrhpfjirq8593-19-47 22:42:00 Test Item Value Reference Range Interpretation Comments B-Type Natriuretic Peptide (test 40 pg/mL code = 39163-5) [facility] or plasma thyrotropin measurement by detection limit <=0.005 miu/l (units/fcqrh8382-82-17 22:42:00 Test Item Value Reference Range Interpretation Comments Thyroid Stimulating Hormone 7.670 u[iU]/mL (TSH) (test code = 69430-1) [facility] or plasma procalcitonin measurement (mass/volume)2019-09-24 22:42:00 Test Item Value Reference Range Interpretation Comments Procalcitonin (test code = < 0.05 ng/mL 24952-0) [facility]ary[facility] blood prothrombin wdkl2603-59-87 22:42:00 Test Item Value Reference Range Interpretation Comments Prothrombin Time (test code = 5964-2) 11.4 s [facility]aryINR in Platelet poor plasma by Coagulation assay 2019-09-24 22:42:00 Test Item Value Reference Range Interpretation Comments Prothromb Time International Ratio 1.0 {INR} (test code = 6301-6) [facility]aryPartial thromboplastin time (PTT) in platelet poor cihkdb5511-30-20 22:42:00 Test Item Value Reference Range Interpretation Comments Activated Partial Thromboplast Time 31.7 s (test code = 96580-7) [facility]aryFibrin D-dimer FEU [id number] 22:42:00 Test Item Value Reference Range Interpretation Comments D-Dimer (test code = 65932-6) 262 ng/mL{FEU} [facility] ketones detection by automated test strip 2019-09-24 22:33:00 Test Item Value Reference Range Interpretation Comments Urine Ketones (test code = Negative mg/dL 23506-2) [facility] erythrocytes detection by automated method 2019-09-24 22:33:00 Test Item Value Reference Range Interpretation Comments Urine Occult Blood (test code = Negative 29247-7) [facility]ary[facility] urine nitrite cvdptggcspy3446-23-61 22:33:00 Test Item Value Reference Range Interpretation Comments Urine Nitrite (test code = 57538-3) Negative [facility] total bilirubin detection by automated test bacup2950-73-92 22:33:00 Test Item Value Reference Range Interpretation Comments Urine Bilirubin (test code = Negative 28670-3) [facility]aryAutom[facility] urine urobilinogen zpywipsdkbo3020-71-36 22:33:00 Test Item Value Reference Range Interpretation Comments Urine Urobilinogen (test code = Normal mg/dL 20571814) [facility] leukocytes detection by automated method 2019-09-24 22:33:00 Test Item Value Reference Range Interpretation Comments Urine Leukocyte Esterase (test 250 {Marianna}/uL code = 44035-3) [facility]aryAutom[facility] erythrocytes count in urine sediment (number/area)2019-09-24 22:33:00 Test Item Value Reference Range Interpretation Comments Urine RBC (test code = 92397-6) 0-2 /[HPF] [facility]aryAutom[facility] leukocytes count in urine sediment (number/area)2019-09-24 22:33:00 Test Item Value Reference Range Interpretation Comments Urine WBC (test code = 74726-7) 10-20 /[HPF] [facility] squamous epithelial cells count in urine sediment (number/area)2019-09-24 22:33:00 Test Item Value Reference Range Interpretation Comments Urine Squamous Epithelial Cells Rare /[LPF] (test code = 12548-7) [facility] urine sediment crystal count (number/area)2019-09-24 22:33:00 Test Item Value Reference Range Interpretation Comments Urine Other Crystals (test +/- Rare /[LPF] code = 28460-4) [facility]aryAutom[facility] bacteria count in urine sediment (number/area)2019-09-24 22:33:00 Test Item Value Reference Range Interpretation Comments Urine Bacteria (test code = None /[HPF] 00689-1) [facility]aryAutom[facility] mucus count in urine sediment (number/area)2019-09-24 22:33:00 Test Item Value Reference Range Interpretation Comments Urine Mucus (test code = 51791-5) +/- /[LPF] [facility]aryAutom[facility] urine yeast count (number/area)2019-09-24 22:33:00 Test Item Value Reference Range Interpretation Comments Urine Yeast (Budding) (test code Rare /[HPF] = 55425-1) [facility] comment 22:33:00 Test Item Value Reference Range Interpretation Comments Urine Culture Indicated Yes, Criteria Met (test code = 8264-4) [facility]aryBacterial urine pndeiep3965-24-00 22:33:00 Test Item Value Reference Range Interpretation Comments Urine Culture (test No growth in 18-24 code = 630-4) hours [facility] urine color ciryhufiiadcq6521-43-43 22:33:00 Test Item Value Reference Range Interpretation Comments Urine Color (test code = 82113-7) Yellow [facility]aryClarity in Urine by Refractometry automated 2019-09-24 22:33:00 Test Item Value Reference Range Interpretation Comments Urine Appearance (test code = 61040-9) Clear [facility] pH measurement by test qhoba6332-39-02 22:33:00 Test Item Value Reference Range Interpretation Comments Urine pH (test code = 5803-2) 7.5 [pH] [facility] specific gravity by refractometry 2019-09-24 22:33:00 Test Item Value Reference Range Interpretation Comments Urine Specific [place] (test code = 1.009 26340-8) [facility] protein mtboztrbzkq8625-49-90 22:33:00 Test Item Value Reference Range Interpretation Comments Urine Protein (test code = Negative mg/dL 81842650) [facility] glucose jrmklrzou7593-59-43 22:33:00 Test Item Value Reference Range Interpretation Comments Urine Glucose (UA) (test code Negative mg/dL = 09181-4) [facility]aryBASIC METABOLIC [id number] 02:06:00 Test Item Value Reference Range Interpretation [...] CALCIUM (test code = MG/DL 8.7-9.7 CA) [id number] 02:06:00 Test Item Value Reference Range Interpretation Comments MAGNESIUM (test code = MAG) MG/DL 1.6-2.3 BASIC METABOLIC [id number] 02:06:00 Test Item Value Reference Range Interpretation [...] CALCIUM (test code = MG/DL 8.7-9.7 CA) [id number] 02:06:00 Test Item Value Reference Range Interpretation Comments MAGNESIUM (test code = MAG) MG/DL 1.6-2.3 BASIC METABOLIC [id number] 02:06:00 Test Item Value Reference Range Interpretation [...] code = 10.3 MG/DL 8.4-10.2 H CA) [id number] 02:06:00 Test Item Value Reference Range Interpretation Comments MAGNESIUM (test code = MAG) MG/DL 1.6-2.3 BASIC METABOLIC [id number] 02:06:00 Test Item Value Reference Range Interpretation [...] code = 10.3 MG/DL 8.4-10.2 H CA) [id number] 02:06:00 Test Item Value Reference Range Interpretation Comments MAGNESIUM (test code = MAG) 1.7 MG/DL 1.6-2.3 BASIC METABOLIC [id number] 02:03:00 Test Item Value Reference Range Interpretation [...] CALCIUM (test code = CA) MG/DL 8.7-9.7 [id number] 02:03:00 Test Item Value Reference Range Interpretation Comments MAGNESIUM (test code = MAG) MG/DL 1.6-2.3 CBC W/AUTO [id number] 01:51:00 Test Item Value Reference Range Interpretation [...] K/mm3 0.0-0.1 N NRBC#) - XR CHEST [id number] 11:06:00 Patient Name: DEBI GARRETT Unit No: [id number] EXAMS: CPT CODE: [id number] XR CHEST 1V 12210 Site ID: [id number] HISTORY: Pneumothorax COMPARISON: Chest [...] and signedby: Laith Salcido MD CC: Poli Epps Technologist: Willie Santana (RT) Transcrpt Date/Tm/Trnsp: 08/10/2019 (1106) [email or web address] Orig Print D/T: S: 08/10/2019 (1110) [facility] NAME: DEBI GARRETT [address] PHYS: [place] [address] : 1935 AGE: 84 SEX: F LOC: [id number].SI05 A PHONE #: [phone] EXAM DATE: 08/10/2019 STATUS: ADM IN FAX #: [phone] RADIOLOGY NO: PAGE 1 Signed ReportBASIC METABOLIC [id number] 05:07:00 Test Item Value Reference Range Interpretation [...] code = 10.6 MG/DL 8.4-10.2 H CA) [id number] 05:07:00 Test Item Value Reference Range Interpretation Comments PHOSPHOROUS (test code = PHOS) 3.3 MG/DL 2.5-4.5 N [id number] 05:07:00 Test Item Value Reference Range Interpretation Comments MAGNESIUM (test code = MAG) 2.2 MG/DL 1.6-2.3 BASIC METABOLIC [id number] 05:04:00 Test Item Value Reference Range Interpretation [...] CALCIUM (test code = MG/DL 8.7-9.7 CA) [id number] 05:04:00 Test Item Value Reference Range Interpretation Comments PHOSPHOROUS (test code = PHOS) MG/DL 2.5-4.5 [id number] 05:04:00 Test Item Value Reference Range Interpretation Comments MAGNESIUM (test code = MAG) MG/DL 1.6-2.3 BASIC METABOLIC [id number] 05:01:00 Test Item Value Reference Range Interpretation [...] CALCIUM (test code = CA) MG/DL 8.7-9.7 [id number] 05:01:00 Test Item Value Reference Range Interpretation Comments PHOSPHOROUS (test code = PHOS) MG/DL 2.5-4.5 [id number] 05:01:00 Test Item Value Reference Range Interpretation Comments MAGNESIUM (test code = MAG) MG/DL 1.6-2.3 CBC W/AUTO [id number] 04:48:00 Test Item Value Reference Range Interpretation [...] 0.00 K/mm3 0.0-0.1 N NRBC#) BASIC METABOLIC [id number] 23:31:00 Test Item Value Reference Range Interpretation [...] code = 10.1 MG/DL 8.4-10.2 N CA) [id number] 23:31:00 Test Item Value Reference Range Interpretation Comments MAGNESIUM (test code = MAG) 1.8 MG/DL 1.6-2.3 N BASIC METABOLIC [id number] 23:28:00 Test Item Value Reference Range Interpretation [...] CALCIUM (test code = MG/DL 8.7-9.7 CA) [id number] 23:28:00 Test Item Value Reference Range Interpretation Comments MAGNESIUM (test code = MAG) MG/DL 1.6-2.3 BASIC METABOLIC [id number] 23:25:00 Test Item Value Reference Range Interpretation [...] CALCIUM (test code = CA) MG/DL 8.7-9.7 [id number] 23:25:00 Test Item Value Reference Range Interpretation Comments MAGNESIUM (test code = MAG) MG/DL 1.6-2.3 BASIC METABOLIC [id number] 22:21:00 Test Item Value Reference Range Interpretation Comments SODIUM (test code = 129 MMOL/L 137-145 L NA) POTASSIUM (test code = 2.9 MMOL/L 3.5-5.1 L CASTRO D TO TED BNely& Catalino) READBACK ON AT 2220 BY Cuba Garcia [...] code = 9.3 MG/DL 8.4-10.2 N CA) [id number] 22:21:00 Test Item Value Reference Range Interpretation Comments MAGNESIUM (test code = MAG) 1.6 MG/DL 1.6-2.3 N BASIC METABOLIC [id number] 21:36:00 Test Item Value Reference Range Interpretation [...] code = CA) 9.3 MG/DL 8.4-10.2 N [id number] 21:36:00 Test Item Value Reference Range Interpretation Comments MAGNESIUM (test code = MAG) 1.6 MG/DL 1.6-2.3 N BASIC METABOLIC [id number] 21:35:00 Test Item Value Reference Range Interpretation [...] CALCIUM (test code = CA) MG/DL 8.7-9.7 [id number] 21:35:00 Test Item Value Reference Range Interpretation Comments MAGNESIUM (test code = MAG) MG/DL 1.6-2.3 CBC W/AUTO [id number] 21:25:00 Test Item Value Reference Range Interpretation [...] 0.0-0.1 N NRBC#) - MRI BRAIN W/O [id number] 11:43:00 Patient Name: DEBI GARRETT Unit No: [id number] EXAMS: CPT CODE: [id number] MRI BRAIN W/O CONTRAST 46360 CLINICAL INFORMATION: Ataxia. Right internal carotid artery [...] Laura Wei (RT)(R) Transcrpt Date/Tm/Trnsp: 08/09/2019 (1143) PritiAGV Orig Print D/T: S: 08/09/2019 (1146) [facility] NAME: DEBI GARRETT [address] PHYS: [place] [address] : 1935 AGE: 84 SEX: F LOC: Z.SI05 A PHONE #: [phone] EXAM DATE: 08/09/2019 STATUS: ADM IN FAX #: [phone] RADIOLOGY NO: PAGE 1 Signed ReportURINALYSIS [id number] 22:47:00 Test Item Value Reference Range Interpretation [...] UACULT) Criteria SOURCE OF URINE: STRAIGHT CATHETERURINALYSIS [id number] 22:45:00 Test Item Value Reference Range Interpretation [...] UACULT) SOURCE OF URINE: STRAIGHT CATHETERBASIC METABOLIC [id number] 13:12:00 Test Item Value Reference Range Interpretation [...] code = 9.8 MG/DL 8.4-10.2 N CA) [id number] 13:12:00 Test Item Value Reference Range Interpretation Comments PHOSPHOROUS (test code = PHOS) 2.6 MG/DL 2.5-4.5 N [id number] 13:12:00 Test Item Value Reference Range Interpretation Comments MAGNESIUM (test code = MAG) 2.3 MG/DL 1.6-2.3 N T3,T4 [id number] 13:12:00 Test Item Value Reference Range Interpretation Comments T3 UPTAKE (test code = T3UP) 33.3 % UP 23.5-40.5 N T4 (THYROXINE) (test code = T4) 13.10 UG/DL 5.53-11.0 H T7 (FREE THYROXINE INDEX) (test 4.4 1.2-4.3 H code = T7) THYROID STIMULATING [id number] 13:12:00 Test Item Value Reference Range Interpretation Comments THYROID STIMULATING 3.590 MIU/L 0.465-4.68 N Please b e aware that HORMONE (test code = bias re sults for TSH TSH) may occur forpa tient who are taking Biotin suppleme nts. T4 [id number] 12:43:00 Test Item Value Reference Range Interpretation Comments T4 FREE (test code = T4F) 2.1 NG/DL 0.78-2.19 N BASIC METABOLIC [id number] 12:41:00 Test Item Value Reference Range Interpretation [...] code = 9.8 MG/DL 8.4-10.2 N CA) [id number] 12:41:00 Test Item Value Reference Range Interpretation Comments PHOSPHOROUS (test code = PHOS) 2.6 MG/DL 2.5-4.5 N [id number] 12:41:00 Test Item Value Reference Range Interpretation Comments MAGNESIUM (test code = MAG) 2.3 MG/DL 1.6-2.3 N T3,T4 [id number] 12:41:00 Test Item Value Reference Range Interpretation Comments T3 UPTAKE (test code = T3UP) 33.3 % UP 23.5-40.5 N T4 (THYROXINE) (test code = T4) 13.10 UG/DL 5.53-11.0 H T7 (FREE THYROXINE INDEX) (test 4.4 1.2-4.3 H code = T7) THYROID STIMULATING [id number] 12:41:00 Test Item Value Reference Range Interpretation Comments THYROID STIMULATING HORMONE (test code MIU/L 0.465-4.68 = TSH) CBC W/AUTO [id number] 12:39:00 Test Item Value Reference Range Interpretation [...] 0.00 K/mm3 0.0-0.1 N NRBC#) BASIC METABOLIC [id number] 12:26:00 Test Item Value Reference Range Interpretation [...] code = 9.8 MG/DL 8.4-10.2 N CA) [id number] 12:26:00 Test Item Value Reference Range Interpretation Comments PHOSPHOROUS (test code = PHOS) 2.6 MG/DL 2.5-4.5 N [id number] 12:26:00 Test Item Value Reference Range Interpretation Comments MAGNESIUM (test code = MAG) 2.3 MG/DL 1.6-2.3 N T3,T4 [id number] 12:26:00 Test Item Value Reference Range Interpretation Comments T3 UPTAKE (test code = T3UP) % UP 23.5-40.5 T4 (THYROXINE) (test code = T4) UG/DL 5.53-11.0 T7 (FREE THYROXINE INDEX) (test code = 1.2-4.3 T7) THYROID STIMULATING [id number] 12:26:00 Test Item Value Reference Range Interpretation Comments THYROID STIMULATING HORMONE (test code MIU/L 0.465-4.68 = TSH) BASIC METABOLIC [id number] 12:25:00 Test Item Value Reference Range Interpretation [...] CALCIUM (test code = MG/DL 8.7-9.7 CA) [id number] 12:25:00 Test Item Value Reference Range Interpretation Comments PHOSPHOROUS (test code = PHOS) MG/DL 2.5-4.5 [id number] 12:25:00 Test Item Value Reference Range Interpretation Comments MAGNESIUM (test code = MAG) MG/DL 1.6-2.3 T3,T4 [id number] 12:25:00 Test Item Value Reference Range Interpretation Comments T3 UPTAKE (test code = T3UP) % UP 23.5-40.5 T4 (THYROXINE) (test code = T4) UG/DL 5.53-11.0 T7 (FREE THYROXINE INDEX) (test code = 1.2-4.3 T7) THYROID STIMULATING [id number] 12:25:00 Test Item Value Reference Range Interpretation Comments THYROID STIMULATING HORMONE (test code MIU/L 0.465-4.68 = TSH) BASIC METABOLIC [id number] 12:25:00 Test Item Value Reference Range Interpretation [...] CALCIUM (test code = MG/DL 8.7-9.7 CA) [id number] 12:25:00 Test Item Value Reference Range Interpretation Comments PHOSPHOROUS (test code = PHOS) MG/DL 2.5-4.5 [id number] 12:25:00 Test Item Value Reference Range Interpretation Comments MAGNESIUM (test code = MAG) MG/DL 1.6-2.3 T3,T4 [id number] 12:25:00 Test Item Value Reference Range Interpretation Comments T3 UPTAKE (test code = T3UP) % UP 23.5-40.5 T4 (THYROXINE) (test code = T4) UG/DL 5.53-11.0 T7 (FREE THYROXINE INDEX) (test code = 1.2-4.3 T7) THYROID STIMULATING [id number] 12:25:00 Test Item Value Reference Range Interpretation Comments THYROID STIMULATING HORMONE (test code MIU/L 0.465-4.68 = TSH) BASIC METABOLIC [id number] 12:25:00 Test Item Value Reference Range Interpretation [...] CALCIUM (test code = MG/DL 8.7-9.7 CA) [id number] 12:25:00 Test Item Value Reference Range Interpretation Comments PHOSPHOROUS (test code = PHOS) MG/DL 2.5-4.5 [id number] 12:25:00 Test Item Value Reference Range Interpretation Comments MAGNESIUM (test code = MAG) MG/DL 1.6-2.3 T3,T4 [id number] 12:25:00 Test Item Value Reference Range Interpretation Comments T3 UPTAKE (test code = T3UP) % UP 23.5-40.5 T4 (THYROXINE) (test code = T4) UG/DL 5.53-11.0 T7 (FREE THYROXINE INDEX) (test code = 1.2-4.3 T7) THYROID STIMULATING [id number] 12:25:00 Test Item Value Reference Range Interpretation Comments THYROID STIMULATING HORMONE (test code MIU/L 0.465-4.68 = TSH) BASIC METABOLIC [id number] 12:23:00 Test Item Value Reference Range Interpretation [...] CALCIUM (test code = CA) MG/DL 8.7-9.7 [id number] 12:23:00 Test Item Value Reference Range Interpretation Comments PHOSPHOROUS (test code = PHOS) MG/DL 2.5-4.5 [id number] 12:23:00 Test Item Value Reference Range Interpretation Comments MAGNESIUM (test code = MAG) MG/DL 1.6-2.3 T3,T4 [id number] 12:23:00 Test Item Value Reference Range Interpretation Comments T3 UPTAKE (test code = T3UP) % UP 23.5-40.5 T4 (THYROXINE) (test code = T4) UG/DL 5.53-11.0 T7 (FREE THYROXINE INDEX) (test code = 1.2-4.3 T7) THYROID STIMULATING [id number] 12:23:00 Test Item Value Reference Range Interpretation Comments THYROID STIMULATING HORMONE (test code MIU/L 0.465-4.68 = TSH) BASIC METABOLIC [id number] 12:22:00 Test Item Value Reference Range Interpretation [...] CALCIUM (test code = CA) MG/DL 8.7-9.7 [id number] 12:22:00 Test Item Value Reference Range Interpretation Comments PHOSPHOROUS (test code = PHOS) MG/DL 2.5-4.5 [id number] 12:22:00 Test Item Value Reference Range Interpretation Comments MAGNESIUM (test code = MAG) MG/DL 1.6-2.3 T3,T4 [id number] 12:22:00 Test Item Value Reference Range Interpretation Comments T3 UPTAKE (test code = T3UP) % UP 23.5-40.5 T4 (THYROXINE) (test code = T4) UG/DL 5.53-11.0 T7 (FREE THYROXINE INDEX) (test code = 1.2-4.3 T7) THYROID STIMULATING [id number] 12:22:00 Test Item Value Reference Range Interpretation Comments THYROID STIMULATING HORMONE (test code MIU/L 0.465-4.68 = TSH) - XR HIP W/PEL UNI 2+V [id number] 11:43:00 Patient Name: DEBI GARRETT Unit No: [id number] EXAMS: CPT CODE: [id number] XR HIP W/PEL UNI 2+[place] [address] EXAM: - XR HIP W/PEL UNI 2+V [...] Kathrin Guevara MD CC: Poli Aaron;Jana Acosta [employer] SUPERVISOR Technologist: RT Ludivina (R) Transcrpt Date/Tm/Trnsp: 08/08/2019 (1143) Leonel.KW9 Orig Print D/T: S: 08/08/2019 (1147) [facility] NAME: DEBI GARRETT [id number] PHYS: [place] [address] : 1935 AGE: 84 SEX: F LOC: Z.SI05 A PHONE #: [phone] EXAM DATE: 08/08/2019 STATUS: ADM IN FAX #:[phone] RADIOLOGY NO: PAGE 1 Signed Report- CT HEAD/BRAIN W/O [id number] 11:40:00 Patient Name: DEBI GARRETT Unit No: [id number] EXAMS: CPT CODE: [id number] CT HEAD/BRAIN W/O CONT 43445 EXAMINATION: - CT HEAD/BRAIN W/O CONT. LOCATION: [...] Ever Finney CC: Poli Aaron; Jana Acosta P[employer] SHEETS SUPERVISOR Technologist: Filipe Perez, RT(R) CTDI: DLP: Trnscrpt: 08/08/2019 (1140) t.[email or web address].[email or web address] [facility] NAME: DEBI GARRETT [address] PHYS: DUSTY. - Karla,[place] [address] : 1935 AGE: 84 SEX: F LOC: Z.SI05 A PHONE #: [phone] EXAM DATE: 08/08/2019 STATUS: ADM IN FAX #: [phone] RAD #: D/C DT PAGE 1 Signed Report PatientName: DEBI GARRETT Unit No: [id number] EXAMS: CPT CODE: [id number] CT HEAD/BRAIN W/O CONT 32931 <Continued> Orig Print D/T: S: 08/08/2019 (0611) [facility] NAME: DEBI GARRETT [address] PHYS: DUSTY.Ric - Karla,[place] [address] : 1935 AGE: 84 SEX: F LOC: Z.SI05 A PHONE #: [phone] EXAM DATE: 08/08/2019 STATUS: ADM IN FAX #: [phone] RAD #: D/C DT PAGE 2 Signed Report- XR CHEST [id number] 08:51:00 Patient Name: DEBI GARRETT Unit No: [id number] EXAMS: CPT CODE: [id number] XR CHEST 1V 39926 EXAM: - XR CHEST 1V Location code:B2 HISTORY: Follow-up pneumothorax COMPARISON: 08/07/2019 FINDINGS: Frontal view of the chest is submitted. Left subclavian CVC unchanged. There is a stable small left apical pneumothorax present. Stable cardiomediastinal silhouette [...] Guevara MD CC: Poli Aaron; Jana Acosta P[employer] SHEETS SUPERVISOR Technologist: RT Sami(R) Transcrpt Date/Tm/Trnsp: 08/08/2019 (0851) BethanieR.KW9 Orig Print D/T: S: 08/08/2019 (0854) [facility] NAME: DEBI GARRETT [address] PHYS: [place] [address] : 1935 AGE: 84 SEX: F LOC: Z.SI05 A PHONE #: [phone] EXAM DATE: 08/08/2019 STATUS: ADM IN FAX #: [phone] RADIOLOGY NO: PAGE 1 Signed [id number] 12:46:00 RUN DATE: 08/07/19 [facility] PAGE 1 RUN TIME: 1246 Specimen Inquiry RUN USER: INTERFACE PATIENT: DEBI GARRETT LOC: MYLES U #: [id number] AGE/SX: 84/F ROOM: [facility] RE08/06/19[facility] DR: Robi Schroeder MD : 37 BED: A DIS: STATUS: ADM IN TLOC: SPEC #: [id number] RECD: 08/06/19 STATUS: DOV RERoberto Carlos #: [id number] KELLE: 08/06/19-1246 [facility]: Robi Schroeder MD ENTERED: 08/06/19 SP TYPE: ARTERY, PL OTHR DR: Self Referred Mirella Francis MD, Patricia Q MD Pepper, Gregory S MDORDERED: DECAL, SURG PATH LVL3, SURG PATH LVL 4 CODES: [id number] - PLAQUE, NOS X34579 - ARTERY, NOS I02539 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 ARTERY, NOS - RT CAROTID PLAQUE B. LYMPH NODE, NOS - RT CERVICAL LYMPH NODE CONTINUED ON NEXT PAGE RUN DATE: 08/07/19 [facility] PAGE 2 RUN TIME: 1246 Specimen Inquiry RUN USER: INTERFACE SPEC #: [id number] PATIENT: TAMIDEBI #[id number] (Continued) CLINICAL HISTORY S/P RIGHT CEA CPT CODES CPT CODE(S): 29805 , 43767 , 16598 , , , , FINAL DIAGNOSIS A. [...] features. /chidi- Signed SIGNATURE ON FILE Raffi Hendesron 08/07/19 1246 END OF REPORT - XR CHEST [id number] 10:56:00 Patient Name: DEBI GARRETT Unit No: [id number] EXAMS: CPT CODE: [id number] XR CHEST 1V 07032 EXAMINATION: - XR CHEST 1V. LOCATION: B2. [...] 08/07/2019. at 1056 Reported and signed by: Wenyd Davidson MD CC: Poli Aaron Technologist: Damian Ingram (RT) (R) Transcrpt Date/Tm/Trnsp: 08/07/2019 (1056) t.[email or web address].PR7 Orig Print D/T: S: 08/07/2019 (1100) [facility] NAME: DEBI GARRETT[address] PHYS: [place] [address] : 1935 AGE: 84 SEX: F LOC: Z.SI01 A PHONE #: [phone] EXAM DATE: 08/07/2019 STATUS: ADM IN FAX #: [phone] RADIOLOGY NO: PAGE 1 Signed ReportBASIC METABOLIC [...] CA) CBN DRAW LEFT TUBES FOR NURSE [id number] 06:56:00 Test Item Value Reference Range Interpretation Comments MAGNESIUM (test code = MAG) 1.8 MG/DL 1.6-2.3 N CBN DRAW LEFT TUBES FOR NURSE [facility]OnetoOn[facility]extCAL[facility] METABOLIC [id number] 06:55:00 Test Item Value Reference Range Interpretation [...] CA) CBN DRAW LEFT TUBES FOR NURSE [id number] 06:55:00 Test Item Value Reference Range Interpretation Comments MAGNESIUM (test code = MAG) MG/DL 1.6-2.3 CBN DRAW LEFT TUBES FOR NURSE HADDOCKOnetoOnetextC METABOLIC [id number] 06:53:00 Test Item Value Reference Range Interpretation [...] 8.7-9.7 CBN DRAW LEFT TUBES FOR NURSE [id number] 06:53:00 Test Item Value Reference Range Interpretation Comments MAGNESIUM (test code = MAG) MG/DL 1.6-2.3 CBN DRAW LEFT TUBES FOR NURSE ROSIECBC W/AUTO [id number] 06:42:00 Test Item Value Reference Range Interpretation [...] NRBC#) CBN DRAW LEFT TUBES FOR NURSE ROSIEBASIC METABOLIC [id number] 13:33:00 Test Item Value Reference Range Interpretation [...] code = 10.0 MG/DL 8.4-10.2 N CA) [id number] 13:33:00 Test Item Value Reference Range Interpretation Comments MAGNESIUM (test code = MAG) 1.8 MG/DL 1.6-2.3 N BASIC METABOLIC [id number] 13:32:00 Test Item Value Reference Range Interpretation [...] CALCIUM (test code = MG/DL 8.7-9.7 CA) [id number] 13:32:00 Test Item Value Reference Range Interpretation Comments MAGNESIUM (test code = MAG) MG/DL 1.6-2.3 BASIC METABOLIC [id number] 13:30:00 Test Item Value Reference Range Interpretation [...] CALCIUM (test code = CA) MG/DL 8.7-9.7 [id number] 13:30:00 Test Item Value Reference Range Interpretation Comments MAGNESIUM (test code = MAG) MG/DL 1.6-2.3 BASIC METABOLIC [id number] 13:29:00 Test Item Value Reference Range Interpretation [...] CALCIUM (test code = CA) MG/DL 8.7-9.7 [id number] 13:29:00 Test Item Value Reference Range Interpretation Comments MAGNESIUM (test code = MAG) MG/DL 1.6-2.3 CBC W/AUTO [id number] 13:19:00 Test Item Value Reference Range Interpretation [...] K/mm3 0.0-0.1 N NRBC#) - XR CHEST [id number] 13:05:00 Patient Name: DEBI GARRETT Unit No: [id number] EXAMS: CPT CODE: [id number] XR CHEST 1V 61874 Site ID: [id number] HISTORY: Postoperative, right CEA [...] Salcido MD CC: Teofilo Aaron Technologist: Octavio Lerner RT(R) Transcrpt Date/Tm/Trnsp: 08/06/2019 (1305) [id number] Orig Print D/T: S: 08/06/2019 (1308) [facility] NAME: DEBI GARRETT [address] PHYS: [place] [address] : 1935 AGE: 84 SEX: F LOC: Z.SI01 A PHONE #: [phone] EXAM DATE: 08/06/2019 STATUS: ADM IN FAX #: [phone] RADIOLOGY NO: PAGE 1 Signed ReportARTERIAL BLOOD [id number] 13:00:00 Test Item Value Reference Range Interpretation [...] = 50 % COHBGFFIO2) Novel Coronavirus 2019 [id number] 08:07:00 Test Item Value Reference Range Interpretation Comments Novel Coronavirus 2018 Inhouse (test Negative Negative code = COVNONPUI) Novel Coronavirus 2019 [id number] 08:06:00 Test Item Value Reference Range Interpretation Comments Novel Coronavirus 2019 Inhouse (test Negative Negative code = COVNONPUI) HIV 12 AB [id number] 14:28:00 Test Item Value Reference Range Interpretation Comments HIV 1 2 COMBO AG/AB SCREEN AB/AG NON REACTIVE NONREACTIVE (test code = [id number]) BASIC METABOLIC [id number] 13:39:00 Test Item Value Reference Range Interpretation [...] 10.3 MG/DL 8.4-10.2 H CA) BASIC METABOLIC [id number] 13:38:00 Test Item Value Reference Range Interpretation [...] code = MG/DL 8.7-9.7 CA) BASIC METABOLIC [id number] 13:36:00 Test Item Value Reference Range Interpretation [...] code = CA) MG/DL 8.7-9.7 BASIC METABOLIC [id number] 13:35:00 Test Item Value Reference Range Interpretation [...] (test code = CA) MG/DL 8.7-9.7 PROTHROMBIN [id number] 13:32:00 Test Item Value Reference Range Interpretation [...] syste aga embolism. 3.0 - 4.5 PTT [id number] 13:32:00 Test Item Value Reference Range Interpretation Comments PTT ACTIVATED (test code = APTT) 35.5 SECONDS 25.1-36.5 N CBC W/AUTO [id number] 13:23:00 Test Item Value Reference Range Interpretation [...] 0.0-0.1 N NRBC#) - XR CHEST 2 [id number] 13:16:00 Patient Name: DEBI GARRETT Unit No: [id number] EXAMS: CPT CODE: [id number] XR CHEST 2 V 29325 Site ID: [id number] HISTORY: Preoperative, right carotid endarterectomy FINDINGS: The lungs are clear and normally expanded. The heart and pulmonary vasculature is normal. Previous coronary artery stenting noted. Osseous structures are unremarkable. IMPRESSION: No acute card iopulmonary finding at 1316 Reported and signed by: Laith Salcido MD CC: Poli Aaron Technologist: Britney Myers, RT (R) Transcrpt Date/Tm/Trnsp: 07/29/2019 (3856) BethanieR.AJP6 Orig Print D/T: S: 07/29/2019 (3012) [facility] NAME: DEBI GARRETT [address] PHYS: [place] [address] : 1935 AGE: 84 SEX: F LOC: JING PHONE #: [phone] EXAM DATE: 07/29/2019 STATUS: PRE IN FAX #: [phone] RADIOLOGY NO: PAGE 1 Signed ReportBASIC METABOLIC [id number] 06:23:00 Test Item Value Reference Range Interpretation [...] 0-189 mg/dL VERY HIGH...... ...>/= 190 mg/dL [id number] 06:23:00 Test Item Value Reference Range Interpretation Comments MAGNESIUM (test code = MAG) 2.2 MG/DL 1.6-2.3 N PROTHROMBIN [id number] 06:16:00 Test Item Value Reference Range Interpretation [...] syste aga embolism. 3.0 - 4.5 PTT [id number] 06:16:00 Test Item Value Reference Range Interpretation Comments PTT ACTIVATED (test code = APTT) 33.9 SECONDS 25.1-36.5 N BASIC METABOLIC [id number] 06:11:00 Test Item Value Reference Range Interpretation [...] LDL (test MG/DL 0-99 code = LDL) [id number] 06:11:00 Test Item Value Reference Range Interpretation Comments MAGNESIUM (test code = MAG) MG/DL 1.6-2.3 BASIC METABOLIC [id number] 06:11:00 Test Item Value Reference Range Interpretation [...] LDL (test MG/DL 0-99 code = LDL) [id number] 06:11:00 Test Item Value Reference Range Interpretation Comments MAGNESIUM (test code = MAG) 2.2 MG/DL 1.6-2.3 N BASIC METABOLIC [id number] 06:08:00 Test Item Value Reference Range Interpretation [...] LDL (test code = LDL) MG/DL 0-99 [id number] 06:08:00 Test Item Value Reference Range Interpretation Comments MAGNESIUM (test code = MAG) MG/DL 1.6-2.3 CBC W/AUTO [id number] 06:00:00 Test Item Value Reference Range Interpretation [...]
[2020-09-28 13:31] LABS: Absolute Lymphocytes (CBC) 0.5 K/uL (0.7-4.9); Basophils % 0.1 % (0-1.3); Hematocrit 32.3 % (36.0-45.0); Lymphocytes % 6.8 % (15.3-44.8); MPV 7.3 fL (7.6-11.3); Protime INR 1.05; RBC Red Blood Cell Count 3.71 M/uL (3.86-4.86)
--- NOTE | 2020-09-28 13:35 | RAD REPORT ---
EXAM DESCRIPTION: CT - Head C Spine Cap Candelario Suazo - 09/28/2020 1:23 pm COMPARISON: None. TECHNIQUE: Axial [address] head images were obtained without IV contrast. Axial [address] cervical spin e images were obtained with sagittal and coronal reconstruction images reviewed. All CT scans are performed using dose optimization technique as appropriate and may include automated exposure control or mA/KV adjustment according to patient size. FINDINGS: No intracranial hemorrhage, mass, or edema. No mid-line shift or abnormal fluid collection . Mastoid air cells and paranasal sinuses are clear. No skull fracture or acute bony finding. Mild ch ronic small vessel ischemic changes. Cervical body height and alignment are normal. No disc space narrowing. No fracture or acute bony fin ding. No paraspinal mass or hematoma. Mild uncovertebral joint hypertrophy is present at the C4-5, C5 -6, and C6-7 levels with mild neural foraminal narrowing. No central spinal stenosis. Chest: No aortic aneurysm or dissection. Coronary artery calcifications. No pericardial effusion. Neg ative for pulmonary embolism. Scattered ground-glass opacities likely represents hypoventilation. No edema or evidence of pneumonia. No suspicious pulmonary nodules are identified. Abdomen/pelvis: No focal liver lesions identified. Gallbladder is unremarkable. The adrenal glands ar e mildly thickened but no mass. Pancreas is unremarkable. Spleen is unremarkable. No renal masses or hydronephrosis. No suspicious pancreatic lesions. No pancreatic duct dilatation. Normal appendix. Mod erate stool in the rectum and colon. No bowel obstruction. No fracture identified. IMPRESSION: 1. No acute intracranial abnormality. Mild chronic small vessel ischemic changes. 2. No fracture or traumatic malalignment of the cervical spine. 3. No acute findings in the chest, abdomen, or pelvis. 4. A few incidental findings as noted above.
[2020-09-28 13:59] LABS: ALT/SGPT 11 U/L (12-78); AST/SGOT 26 U/L (15-37); Albumin 3.3 g/dL (3.4-5.0); Alkaline Phosphatase 36 U/L (45-117); BUN Blood Urea Nitrogen 12 mg/dL (7-18); Bicarbonate 29 mmol/L (21-32); Bilirubin Direct 0.4 mg/dL (0-0.2); Glucose Level 180 mg/dL (74-106); Lipase 257 U/L (73-393); Magnesium 2.2 mg/dL (1.8-2.4); NT PRO-BNP 141 pg/mL (<450); Potassium 2.4 mmol/L (3.5-5.1); Protein, Total 6.1 g/dL (6.4-8.2); Troponin (Emerg Dept Use Only) < 0.02 ng/mL (0.0-0.045)
[2020-09-28 14:00] LABS: Sodium Level 119 mmol/L (136-145)
[2020-09-28] MEDS ORDERED: FAMOTIDINE 20 MG/2 ML VIAL IV ONE (14:13)
[2020-09-28] MEDS ORDERED: NA CHLORIDE 0.9% 500 ML ONE (14:13)
[2020-09-28] MEDS ORDERED: NA CHLORIDE 0.9% 1,000 ML ONE (14:13)
--- NOTE | 2020-09-28 15:23 | EDPHYS ---
Physician Documentation [facility] Name: Leyda Ramos Age: 85 yrs Sex: Female : 1935 Arrival Date: 09/28/2020 Time: 12:43 Bed 7 Private MD: ED Physician Jim Fonseca HPI: 09/28 15:11 This 85 yrs old Female presents to ER via EMS with complaints of Syncope, kaiser Nausea/Vomiting. 15:11 The patient has experienced near-syncope, almost passed out, felt dizzy, felt faint, kaiser felt generally weak. Onset: The symptoms/episode began/occurred just prior to arrival. Duration: This was a single episode, that lasted 45 second(s). Context: the episode(s) was witnessed, by EMS personnel. Associated injury: The patient did not suffer any apparent associated injury. Associated signs and symptoms: The patient has no apparent associated signs or symptoms. Current symptoms: Currently, the patient is not experiencing any symptoms. The patient has experienced similar episodes in the past, several times. Historical: - Allergies: 12:45 Augmentin; sv 12:45 Bactrim; sv 12:45 Hydrocodone-Acetaminophen; sv 12:45 PENICILLINS; sv - PMHx: 12:45 Chronic pain; pelvic; High Cholesterol; Hypertension; Hypothyroidism; leaking heart sv valve; Gallstones; - Immunization history:: Adult Immunizations up to date. - Family history:: not pertinent. - Social history:: Smoking status: Patient denies any tobacco usage or history of. ROS: 15:11 Constitutional: Negative for fever, chills, and weight loss, Eyes: Negative for injury, kaiser pain, redness, and discharge, ENT: Negative for injury, pain, and discharge, Neck: Negative for injury, pain, and swelling, Cardiovascular: Negative for chest pain, palpitations, and edema, Respiratory: Negative for shortness of breath, cough, wheezing, and pleuritic chest pain, Abdomen/GI: Negative for abdominal pain, nausea, vomiting, diarrhea, and constipation, Back: Negative for injury and pain, : Negative for injury, bleeding, discharge, and swelling, MS/Extremity: Negative for injury and deformity, Skin: Negative for injury, rash, and discoloration, Psych: Negative for depression, anxiety, suicide ideation, homicidal ideation, and hallucinations, Allergy/Immunology: Negative for hives, rash, and allergies, Endocrine: Negative for neck swelling, polydipsia, polyuria, polyphagia, and marked weight changes. 15:11 Neuro: Positive for dizziness, near syncope, weakness. Exam: 15:11 Constitutional: This is a well developed, well nourished patient who is awake, alert, kaiser and in no acute distress. Head/Face: Normocephalic, atraumatic. Eyes: Pupils equal round and reactive to light, extra-ocular motions intact. Lids and lashes normal. Conjunctiva and sclera are non-icteric and not injected. Cornea within normal limits. Periorbital areas with no swelling, redness, or edema. ENT: Nares patent. No nasal discharge, no septal abnormalities noted. Tympanic membranes are normal and external auditory canals are clear. Oropharynx with no redness, swelling, or masses, exudates, or evidence of obstruction, uvula midline. Mucous membranes moist. Neck: Trachea midline, no thyromegaly or masses palpated, and no cervical lymphadenopathy. Supple, full range of motion without nuchal rigidity, or vertebral point tenderness. No Meningismus. Chest/axilla: Normal chest wall appearance and motion. Nontender with no deformity. No lesions are appreciated. Cardiovascular: Regular rate and rhythm with a normal S1 and S2. No gallops, murmurs, or rubs. Normal PMI, no JVD. No pulse deficits. Respiratory: Lungs have equal breath sounds bilaterally, clear to auscultation and percussion. No rales, rhonchi or wheezes noted. No increased work of breathing, no retractions or nasal flaring. Abdomen/GI: Soft, non-tender, with normal bowel sounds. No distension or tympany. No guarding or rebound. No evidence of tenderness throughout. Back: No spinal tenderness. No costovertebral tenderness. Full range of motion. Female : Normal external genitalia. Skin: Warm, dry with normal turgor. Normal color with no rashes, no lesions, and no evidence of cellulitis. MS/ Extremity: Pulses equal, no cyanosis. Neurovascular intact. Full, normal range of motion. Neuro: Awake and alert, GCS 15, oriented to person, place, time, and situation. Cranial nerves II-XII grossly intact. Motor strength 5/5 in all extremities. Sensory grossly intact. Cerebellar exam normal. Normal gait. Psych: Awake, alert, with orientation to person, place and time. Behavior, mood, and affect are within normal limits. Vital Signs: 12:43 BP 128 / 97; Pulse 55; Resp 16; Temp 97.9; Pulse Ox 93% on R/A; bp 13:30 BP 99 / 33; Pulse 54; Resp 16; Pulse Ox 96% ; bp 14:30 BP 148 / 57; Pulse 57; Resp 17; Pulse Ox 95% ; bp 15:30 BP 99 / 52; Pulse 57; Resp 16; Pulse Ox 97% ; bp 16:30 BP 123 / 66; Pulse 59; Resp 17; Pulse Ox 95% ; bp 18:00 BP 117 / 58; Pulse 61; Resp 17; Pulse Ox 95% ; bp MDM: 12:47 Patient medically screened. kaiser 15:14 Differential Diagnosis: cardiac arrhythmia, cerebrovascular accident, drug effect, kaiser emotional response, GI bleed, idiopathic syncope, seizure, transient ischemic attack, vasovagal episode. Data reviewed: vital signs, nurses notes, EMS record, lab test result(s), EKG, radiologic studies, CT scan, plain films. Data interpreted: gre tutor: rate is 55 beats/min, rhythm is regular, Pulse oximetry: on room air is 93 %. Test interpretation: by ED physician or midlevel provider: ECG, plain radiologic studies. Counseling: I had a detailed discussion with the patient and/or guardian regarding: the historical points, exam findings, and any diagnostic results supporting the discharge/admit diagnosis, lab results, radiology results, the need to transfer to another facility, pt and family request to be transferred to [facility]. 15:23 ED course: No Beds at [facility], denied. [facility] 09/28 12:46 Order name: Basic Metabolic Panel; Complete Time: 14:05 [facility] 09/28 12:46 Order name: CBC with Diff; Complete Time: 14:05 [facility] 09/28 12:46 Order name: LFT's; Complete Time: 14:05 [facility] 09/28 12:46 Order name: Magnesium; Complete Time: 14:05 [facility] 09/28 12:46 Order name: NT PRO-BNP; Complete Time: 14:05 [facility] 09/28 12:46 Order name: PT-INR; Complete Time: 14: [facility] 09/28 12:46 Order name: Troponin (emerg Dept Use Only); Complete Time: 14:05 [facility] 09/28 12:46 Order name: Lipase; Complete Time: 14:05 [facility] 09/28 14:07 Order name: Osmolality, Serum [facility] 09/28 14:07 Order name: Urine Osmolality [facility] 09/28 14:07 Order name: Urine Sodium Random [facility] 09/28 14:07 Order name: Phosphorus [facility] 09/28 16:27 Order name: SARS-COV-2 RT PCR EDMS 09/28 12:46 Order name: XRAY Chest (1 view) [facility] 09/28 12:46 Order name: EKG; Complete Time: 12:47 [facility] 09/28 12:46 Order name: Cardiac monitoring; Complete Time: 13:15 [facility] 09/28 12:46 Order name: EKG - Nurse/Tech; Complete Time: 13:15 [facility] 09/28 12:46 Order name: IV Saline Lock; Complete Time: 13:15 [facility] 09/28 12:46 Order name: Labs collected and sent; Complete Time: 13:15 [facility] 09/28 12:46 Order name: O2 Per Protocol; Complete Time: 13:15 [facility] 09/28 12:46 Order name: O2 Sat Monitoring; Complete Time: 13:15 [facility] 09/28 12:46 Order name: CT Traumagram (Head C Spine CAP W Con); Complete Time: 14:05 [facility] 09/28 14:07 Order name: Seizure Precautions; Complete Time: 15:50 [facility] Administered Medications: 13:30 Drug: NS 0.9% 1000 ml Route: IV; Rate: 125 ml/hr; Site: left forearm; bp 16:45 Follow up: IV Status: Completed infusion; IV Intake: 1000ml bp 13:30 Drug: NS 0.9% 500 ml Route: IV; Rate: bolus; Site: left forearm; bp 15:52 Follow up: IV Status: Completed infusion; IV Intake: 500ml bp 13:30 Drug: Pepcid (famotidine) 20 mg Route: IVP; Site: left forearm; bp 15:53 Follow up: Response: No adverse reaction bp 14:30 Drug: Potassium Chloride 20 mEq Route: IV; Rate: per protocol; Site: left forearm; bp 16:45 Follow up: IV Status: Completed infusion; IV Intake: 100ml bp 14:30 Drug: Potassium Chloride 20 mEq Route: IV; Rate: per protocol; Site: left forearm; bp 18:22 Follow up: IV Status: Completed infusion; IV Intake: 100ml bp 15:30 Drug: Potassium Effervescent Tablet 25 mEq Route: PO; bp 16:45 Follow up: Response: No adverse reaction bp Disposition Summary: 09/28/20 15:22 Hospitalization Ordered Hospitalization Status: Inpatient Admission kaiser Provider: Walter Huang cha Location: Telemetry/MedSurg (Inpatient) kaiser Condition: Fair kaiser Problem: new kaiser Symptoms: have improved kaiser Bed/Room Type: Standard kaiser Room Assignment: 210(09/28/20 17:09) dw Diagnosis - Hypo-osmolality and hyponatremia kaiser - Hypokalemia kaiser - Syncope Near kaiser Forms: - Medication Reconciliation Form kaiser - SBAR form kaiser Signatures: Dispatcher [employer] EDBeverly Gleason RN RN Romi Ny RN RN dw Anderson, Corey, MD MD cha Peltier, Brian RN RN bp Corrections: (The following items were deleted from the chart) 15:35 15:20 CORONAVIRUS+MR.LAB.BRZ ordered. EDNJ EDMS 17:09 15:22 kaiser dw
--- NOTE | 2020-09-28 15:23 | ER ---
Nurse's Notes [facility] [place] Name: Leyda Ramos Age: 85 yrs Sex: Female : 1935 Arrival Date: 09/28/2020 Time: 12:43 Bed 7 Private MD: Diagnosis: Hypo-osmolality and hyponatremia;Hypokalemia;Syncope Near Presentation: 09/28 12:43 Chief complaint: EMS states: syncopal episode while sitting on her chair in the shower sv for about 3-5 mins. En route pt had n/v, 20G L AC, Zofran 8 mg IVP, Phenergan 6.25 mg IVP, NS 300 mls given. Risk Assessment: Do you want to hurt yourself or someone else? Patient reports no desire to harm self or others. Onset of symptoms was September 28, 2020. 12:43 Method Of Arrival: EMS: [facility] sv 12:43 Acuity: EVELIO 3 sv 12:43 Coronavirus screen: At this time, the client does not indicate any symptoms associated bp with coronavirus-19. Ebola Screen: No symptoms or risks identified at this time. Initial Sepsis Screen: Does the patient meet any 2 criteria? No. Patient's initial sepsis screen is negative. Does the patient have a suspected source of infection? No. Patient's initial sepsis screen is negative. 14:07 Acuity: EEVLIO 2 iw Triage Assessment: 13:00 General: Appears distressed, uncomfortable, Behavior is cooperative, appropriate for bp age, anxious. Pain: Complains of pain in GENERALIZED. EENT: No deficits noted. Neuro: Reports a syncopal episode. Cardiovascular: Rhythm is sinus bradycardia. Respiratory: No deficits noted. GI: Reports nausea, vomiting. : No signs and/or symptoms were reported regarding the genitourinary system. Derm: No deficits noted. Musculoskeletal: No deficits noted. Historical: - Allergies: 12:45 Augmentin; sv 12:45 Bactrim; sv 12:45 Hydrocodone-Acetaminophen; sv 12:45 PENICILLINS; sv - PMHx: 12:45 Chronic pain; pelvic; High Cholesterol; Hypertension; Hypothyroidism; leaking heart sv valve; Gallstones; - Immunization history:: Adult Immunizations up to date. - Family history:: not pertinent. - Social history:: Smoking status: Patient denies any tobacco usage or history of. Screenin:30 Abuse screen: Denies threats or abuse. Denies injuries from another. Nutritional bp screening: No deficits noted. Tuberculosis screening: No symptoms or risk factors identified. Fall Risk None identified. Assessment: 13:00 General: SEE TRIAGE NOTE. bp 14:00 Neuro: Level of Consciousness is awake, obeys commands, confused, Oriented to person, bp place. Cardiovascular: Rhythm is sinus bradycardia. 15:00 Reassessment: No changes from previously documented assessment. Patient and/or family bp updated on plan of care and expected duration. Pain level reassessed. FAMILY AT B/S, REQUESTING CONFUCIANIST TRANSFER RATHER THAN ADMISSION. 16:00 Reassessment: No changes from previously documented assessment. Patient and/or family bp updated on plan of care and expected duration. Pain level reassessed. HOSPITALIST AT /. NO CONFUCIANIST BEDS AVAILABLE. 17:00 Reassessment: No changes from previously documented assessment. Patient and/or family bp updated on plan of care and expected duration. Pain level reassessed. ADMIT IN PROCESS. 19:01 Reassessment: ADMIT COMPLETE, PT GINO. bp Vital Signs: 12:43 BP 128 / 97; Pulse 55; Resp 16; Temp 97.9; Pulse Ox 93% on R/A; bp 13:30 BP 99 / 33; Pulse 54; Resp 16; Pulse Ox 96% ; bp 14:30 BP 148 / 57; Pulse 57; Resp 17; Pulse Ox 95% ; bp 15:30 BP 99 / 52; Pulse 57; Resp 16; Pulse Ox 97% ; bp 16:30 BP 123 / 66; Pulse 59; Resp 17; Pulse Ox 95% ; bp 18:00 BP 117 / 58; Pulse 61; Resp 17; Pulse Ox 95% ; bp ED Course: 12:30 Patient has correct armband on for positive identification. Bed in low position. Call bp light in reach. Side rails up X2. Adult w/ patient. 12:30 Maintain EMS IV. Dressing intact. Good blood return noted. Site clean \T\ dry. Gauge \T\ bp site: 20 GAUGE LEFT AC. 12:43 Patient arrived in ED. sv 12:45 Jim Fonseca MD is Attending Physician. kaiser 12:45 Triage completed. sv 12:45 Arm band placed on. sv 12:52 Tulio Vera, RN is Primary Nurse. bp 13:05 EKG done, by ED staff, reviewed by Jim Fonseca MD. dh3 13:08 Initial lab(s) drawn, by mn, sent to lab. dh3 13:23 CT Traumagram (Head C Spine CAP W Con) In Process Unspecified. EDMS 14:30 XRAY Chest (1 view) In Process Unspecified. EDMS 15:21 Walter Huang DO is Hospitalizing Provider. kaiser 18:15 No provider procedures requiring assistance completed. Patient admitted, IV remains in bp place. Administered Medications: 13:30 Drug: NS 0.9% 1000 ml Route: IV; Rate: 125 ml/hr; Site: left forearm; bp 16:45 Follow up: IV Status: Completed infusion; IV Intake: 1000ml bp 13:30 Drug: NS 0.9% 500 ml Route: IV; Rate: bolus; Site: left forearm; bp 15:52 Follow up: IV Status: Completed infusion; IV Intake: 500ml bp 13:30 Drug: Pepcid (famotidine) 20 mg Route: IVP; Site: left forearm; bp 15:53 Follow up: Response: No adverse reaction bp 14:30 Drug: Potassium Chloride 20 mEq Route: IV; Rate: per protocol; Site: left forearm; bp 16:45 Follow up: IV Status: Completed infusion; IV Intake: 100ml bp 14:30 Drug: Potassium Chloride 20 mEq Route: IV; Rate: per protocol; Site: left forearm; bp 18:22 Follow up: IV Status: Completed infusion; IV Intake: 100ml bp 15:30 Drug: Potassium Effervescent Tablet 25 mEq Route: PO; bp 16:45 Follow up: Response: No adverse reaction bp Intake: 15:52 IV: 500ml; Total: 500ml. bp 16:45 IV: 1000ml; Total: 1500ml. bp 16:45 IV: 100ml; Total: 1600ml. bp 18:22 IV: 100ml; Total: 1700ml. bp Outcome: 15:22 Decision to Hospitalize by Provider. kaiser 18:22 Admitted to Med/surg accompanied by tech, via stretcher, room 210, with chart, Report bp called to BLAKE KUMAR 18:22 Condition: stable 18:22 Instructed on the need for admit. 19:01 Patient left the ED. bp Signatures: Dispatcher [employer] Beverly Acosta, JOSÉ RN Jim Mathew MD MD cha Williams, Irene, JOSÉ KUMAR Nirmala Rondon [facility] Tulio Vera RN RN bp Corrections: (The following items were deleted from the chart) 16:46 12:43 BP 128 / 97; Pulse 55bpm; Resp 16bpm; Pulse Ox 93% RA; sv bp
--- NOTE | 2020-09-28 15:27 | RAD REPORT ---
EXAM DESCRIPTION: RAD - Chest Single View - 09/28/2020 2:30 pm CLINICAL HISTORY: COUGH COMPARISON: Portable August 12 TECHNIQUE: AP portable chest image was obtained 09/28/2020 2:30 pm . FINDINGS: No focal mass or consolidation. Interstitial pattern not substantially different from comp arison. Hilar regions within normal limits. Heart and vasculature are normal. No measurable pleural e ffusion and no pneumothorax. No acute bony abnormality seen. No acute aortic findings suspected. IMPRESSION: No acute cardiopulmonary process.
[2020-09-28] MEDS ORDERED: POTASSIUM 25 MEQ EFFERV TAB ONE (15:53)
[2020-09-28] MEDS ORDERED: KCL 20 MEQ/100 mL IVPB 40 MEQ/200 ML BAG IV ONE (15:53)
--- NOTE | 2020-09-28 17:02 | P.HP ---
Certification for Inpatient Patient admitted to: Inpatient With expected LOS: >2 Midnights Patient will require the following post-hospital care: None Practitioner: I am a practitioner with admitting privileges, knowledge of patient current condition, hospital course, and medical plan of care. Services: Services provided to patient in accordance with Admission requirements found in Title 42 Section 412.3 of the Code of Federal Regulations Patient History Date of Service: 09/28/20 Primary Care Provider: Dr. Aaron Reason for admission: Fatigue History of Present Illness: 85-year-old female with history of multiple medical problems including GERD, hyperlipidemia, hypertension, chronic pain with Pundental nerve ablation, atrial fibrillation on chronic anticoagulation therapy, CAD, carotid arterial disease, surgical hypothyroidism, and possible early Parkinson's. Patient came to the ER for further evaluation due to increasing fatigue, poor appetite, nausea and vomiting and possible seizure-like activity. Presyncope also mentioned. Most of the information came from the family members. They report patient has been treated medically for recent UTI with Macrobid. She also is being seen by pain specialist and neurologist for predental nerve ablation. Neurology also has recently started medication carbidopa levodopa for possible early Parkinson's. Other medications include hydrochlorothiazide, Cymbalta, levothyroxine, hyperlipidemia, Plavix, Eliquis, Norvasc, amiodarone, Imdur, Protonix, losartan and Lyrica. Patient was brought into the ER for further evaluation. In the ER patient was evaluated. Vital signs stable. Sodium 119, potassium 2.4. BUN of 12, creatinine 0.87 with a GFR 62. Glucose 118. Calcium 7.7. INR 1.05. Troponin negative. White count 7.2, hemoglobin 11.4. Platelet count 349. Urinalysis unremarkable. Covid test negative. CT chest, brain, neck, and abdomen unremarkable. Patient was started on IV fluids. Patient admitted for further evaluation and treatment. Family desires patient to be transferred to [facility]. Most of her specialist go to [facility]. No beds were available. Patient admitted for further evaluation and treatment. Home medications list reviewed: Yes - Past Medical/Surgical History Diabetic: No -: Hypertension -: Hyperlipidemia -: Carotid arterial disease -: Atrial fibrillation on chronic anticoagulation therapy -: GERD -: Pudental nerve ablation -: Surgical hypothyroidism -: 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 -: Hearing loss -: Carotid enterectomy -: Thyroidectomy Psychosocial/ Personal History: Patient lives at home with family - Family History Family History: Reviewed- Non-Contributory - Social History Smoking Status: Never smoker Alcohol use: No CD- Drugs: No Caffeine use: No Place of Residence: Home Review of Systems General: Weakness, Malaise, Other (Poor appetite noted. Decrease activity.), As per HPI Eyes: Unremarkable ENT: Unremarkable Respiratory: Unremarkable Cardiovascular: Unremarkable Gastrointestinal: Nausea, As per HPI Genitourinary: As per HPI (Recently treated for UTI with Macrobid) Musculoskeletal: As per HPI Integumentary: Unremarkable Neurological: As per HPI Lymphatics: Unremarkable Physical Examination - Physical Exam General: Alert, In no apparent distress, Oriented x3, Cooperative HEENT: Atraumatic, Normocephalic, PERRLA, Other (Dry mucous membranes), EOMI Neck: Supple Respiratory: Clear to auscultation bilaterally, Normal air movement Cardiovascular: Normal pulses, Regular rate/rhythm Gastrointestinal: Normal bowel sounds, No ascites, No tenderness, No masses, No rebound, No guarding Musculoskeletal: No erythema, No tenderness, No warmth Integumentary: No tenderness/swelling, No erythema, No warmth, No cyanosis, Other (Dry skin noted) Neurological: Normal speech, Normal strength at 5/5 x4 extr, Normal tone, Normal affect - Studies Laboratory Data (last 24 hrs) 09/28/20 13:08: Phosphorus 2.4 L 09/28/20 13:08: PT 12.1, INR 1.05 09/28/20 13:08: WBC 7.20, Hgb 11.4 L, Hct 32.3 L, Plt Count 349 09/28/20 13:08: Sodium 119 L*, Potassium 2.4 L*, BUN 12, Creatinine 0.87, Glucose 180 H, Magnesium 2.2, Total Bilirubin 1.0, AST 26, ALT 11 L, Alkaline Phosphatase 36 L, Lipase 257 Assessment and Plan - Plan Impression: Presyncope, poor appetite, nausea secondary to hyponatremia with hypokalemia Mild protein malnutrition GERD Hypertension Hyperlipidemia Carotid arterial disease Chronic atrial fibrillation on anticoagulation therapy Surgical hypothyroidism Chronic pain with pudental nerve ablation 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 Plan: Presyncope, poor appetite, nausea secondary to hyponatremia with hypokalemia: Patient will be mated for further evaluation and treatment. Suspect hyponatremia and hypokalemia related to hydrochlorothiazide use. Will discontinue hydrochlorothiazide. We will start IV fluids. Will monitor closely. Nephrology consulted to further assist. CT head unremarkable. Patient with poor nutrition. Will consult dietary to further evaluate and address. We will also hold her blood pressure medication at this timeNorvasc, losartan. We will also hold carbidopa levodopa as this may be causing the majority of her complaints. Physical therapy and Occupational Therapy to assess ambulation tomorrow. We will continue to monitor closely. Await for the recommendations from nephrology. Anticipate improvement with IV fluids. Will recheck BMP later tonight to monitor her progress. Will monitor lab closely. Mild protein malnutrition: Will consult dietary to further address. Will start with a full liquid diet then advance as tolerated. GERD: Continue Pepcid. Advanced diet as tolerated. Hypertension: Patient appears dehydrated. Hold hydrochlorothiazide, losartan and Norvasc. May need to completely discontinue hydrochlorothiazide due to hyponatremia. Hyperlipidemia: Restart fenofibrate and Lipitor. Carotid arterial disease: Continue with her medications including Plavix. Chronic atrial fibrillation on anticoagulation therapy: Restart Eliquis, amiodarone 200 mg 1 pill twice daily. Surgical hypothyroidism: Continue levothyroxine 88 mcg daily. Will check TSH and free T4. Chronic pain with pudental nerve ablation: Patient is seen by pain specialist and neurology. We will continue with Cymbalta and Lyrica. 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: Will hold carbidopa levodopa as this may be the cause of some of her symptoms. DVT prophylaxis: Eliquis CODE STATUS: Full code Advance care minutes: Likely home with home health at discharge but need to consider skilled facility placement. Await recommendations by physical therapy and Occupational Therapy. Discharge Plan: Other (Home with home health versus skilled placement) Plan to discharge in: Greater than 2 days - Advance Directives Does patient have a Living Will: Yes Does patient have a Durable POA for Healthcare: Yes - Code Status/Comfort Care Code Status Assessed: Yes (Full code) Time Spent Managing Pts Care (In Minutes): 60
[2020-09-28] MEDS ORDERED: ACETAMINOPHEN 500 MG TAB PO PRN (19:36)
[2020-09-28] MEDS ORDERED: ONDANSETRON 4 MG/2 ML VIAL IV PRN (19:36)
[2020-09-28 20:01] VITALS: BMI 21.2
[2020-09-28] MEDS: NA CHLORIDE 0.9% 1,000 ML IV SCH (20:06)
[2020-09-28] MEDS: APIXABAN 2.5 MG TABLET PO SCH (21:00)
[2020-09-28 21:06] LABS: BUN Blood Urea Nitrogen 10 mg/dL (7-18); Bicarbonate 32 mmol/L (21-32); CKMB Creatine Kinase MB 1.4 ng/mL (1.0-3.6); Creatine Phosphokinase 288 U/L (26-192); Glucose Level 103 mg/dL (74-106); Potassium 3.8 mmol/L (3.5-5.1); Sodium Level 123 mmol/L (136-145); Troponin I < 0.02 ng/mL (0.0-0.045)
[2020-09-28] MEDS: ATORVASTATIN 80 MG TAB PO SCH (22:52)
[2020-09-28] MEDS: CODEINE 30MG/APAP 300MG TAB PO PRN (22:53)
[2020-09-28] MEDS: FENOFIBRATE 48 MG TAB PO SCH (22:53)
[2020-09-28] MEDS: PREGABALIN 50 MG CAP PO SCH (22:53)
[2020-09-28] MEDS: FAMOTIDINE 20 MG TAB PO SCH (22:54)
[2020-09-28] MEDS: AMIODARONE HCL 200 MG TAB PO SCH (22:54)
[2020-09-29 05:36] LABS: Absolute Lymphocytes (CBC) 0.7 K/uL (0.7-4.9); Basophils % 0.3 % (0-1.3); Hematocrit 32.1 % (36.0-45.0); Lymphocytes % 9.1 % (15.3-44.8); MPV 7.3 fL (7.6-11.3); RBC Red Blood Cell Count 3.71 M/uL (3.86-4.86)
--- NOTE | 2020-09-29 06:03 | P.PN ---
Subjective Date of Service: 09/29/20 Primary Care Provider: Dr. Aaron Chief Complaint: Fatigue Subjective: Improving, Other (Patient doing much better. No significant complaints noted.) Physical Examination - Vital Signs Temperature: 98.0 F Blood Pressure: 135/62 Pulse: 72 Respirations: 17 Pulse Ox (%): 96 - Studies Laboratory Data (last 24 hrs) 09/28/20 13:08: Phosphorus 2.4 L 09/28/20 13:08: PT 12.1, INR 1.05 09/28/20 13:08: WBC 7.20, Hgb 11.4 L, Hct 32.3 L, Plt Count 349 09/28/20 13:08: Sodium 119 L*, Potassium 2.4 L*, BUN 12, Creatinine 0.87, Glucose 180 H, Magnesium 2.2, Total Bilirubin 1.0, AST 26, ALT 11 L, Alkaline Phosphatase 36 L, Lipase 257 Assessment & Plan Discharge Plan: Other (Inpatient rehab.) Plan to discharge in: 48 Hours Physician Review Additional Text: CT scan: FINDINGS: No intracranial hemorrhage, mass, or edema. No mid-line shift or abnormal fluid collection. Mastoid air cells and paranasal sinuses are clear. No skull fracture or acute bony finding. Mild chronic small vessel ischemic changes. Cervical body height and alignment are normal. No disc space narrowing. No fracture or acute bony finding. No paraspinal mass or hematoma. Mild uncovertebral joint hypertrophy is present at the C4-5, C5-6, and C6-7 levels with mild neural foraminal narrowing. No central spinal stenosis. Chest: No aortic aneurysm or dissection. Coronary artery calcifications. No pericardial effusion. Negative for pulmonary embolism. Scattered ground-glass opacities likely represents hypoventilation. No edema or evidence of pneumonia. No suspicious pulmonary nodules are identified. Abdomen/pelvis: No focal liver lesions identified. Gallbladder is unremarkable. The adrenal glands are mildly thickened but no mass. Pancreas is unremarkable. Spleen is unremarkable. No renal masses or hydronephrosis. No suspicious pancreatic lesions. No pancreatic duct dilatation. Normal appendix. Moderate stool in the rectum and colon. No bowel obstruction. No fracture identified. IMPRESSION: 1. No acute intracranial abnormality. Mild chronic small vessel ischemic changes. 2. No fracture or traumatic malalignment of the cervical spine. 3. No acute findings in the chest, abdomen, or pelvis. 4. A few incidental findings as noted above. Physical Exam: General: Alert, In no apparent distress, Oriented x3, Cooperative HEENT: Atraumatic, Normocephalic, PERRLA Neck: Supple Respiratory: Clear to auscultation bilaterally, Normal air movement Cardiovascular: Normal pulses, Regular rate/rhythm Gastrointestinal: Normal bowel sounds, No ascites, No tenderness, No masses, No rebound, No guarding Musculoskeletal: No erythema, No tenderness, No warmth Integumentary: No tenderness/swelling, No erythema, No warmth, No cyanosis, Neurological: Normal speech, Normal strength at 5/5 x4 extr, Normal tone, Normal affect Impression: Presyncope, poor appetite, nausea secondary to hyponatremia with hypokalemia Mild protein malnutrition GERD Hypertension Hyperlipidemia Carotid arterial disease Chronic atrial fibrillation on anticoagulation therapy Surgical hypothyroidism Chronic pain with pudental nerve ablation 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 Plan: Presyncope, poor appetite, nausea secondary to hyponatremia with hypokalemia: Patient doing better today. Medications including hydrochlorothiazide, losartan, and carbidopa levodopa have been discontinued. Continue with IV fluids. Encourage oral intake. Will consult dietary to address daily needs. Case discussed with nephrology. Continue with recommendation. Medications reviewed and adjusted. Physical therapy recommends inpatient rehab due to her current status and the fact that she lives by herself. Patient agreeable to inpatient rehab. We will pursue this. Continue physical therapy and Occupational Therapy at this time. Anticipate continued improvement over the next 24 to 48 hours. Mild protein malnutrition: Will consult dietary to further address. Will advance diet. GERD: Continue Pepcid. Advanced diet as tolerated. Hypertension: Patient appears better hydrated. Hydrochlorothiazide and losartan have been discontinued. Restart Norvasc. Will monitor and adjust medication Hyperlipidemia: Continue fenofibrate and Lipitor. Carotid arterial disease: Continue with her medications including Plavix. Chronic atrial fibrillation on anticoagulation therapy: Continue Eliquis, amiodarone. Surgical hypothyroidism: Continue levothyroxine 88 mcg daily. No adjustment needed at this time. Chronic pain with pudental nerve ablation: Patient is seen by pain specialist and neurology. Continue Cymbalta and Lyrica. Cymbalta was decreased to once daily. 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: Will hold carbidopa levodopa as this may be the cause of some of her symptoms. DVT prophylaxis: Eliquis CODE STATUS: Full code Advance care [id number] minutes: Physical therapy recommends inpatient rehab. This was discussed in detail with the patient. Patient willing to go to inpatient rehab. Social work consulted to help with this process. Time Spent Managing Pts Care (In Minutes): 55
[2020-09-29 06:04] LABS: ALT/SGPT 32 U/L (12-78); AST/SGOT 22 U/L (15-37); Albumin 3.3 g/dL (3.4-5.0); Alkaline Phosphatase 35 U/L (45-117); BUN Blood Urea Nitrogen 7 mg/dL (7-18); Bicarbonate 29 mmol/L (21-32); Bilirubin Total 0.9 mg/dL (0.2-1.0); Creatine Phosphokinase 242 U/L (26-192); Glucose Level 75 mg/dL (74-106); HDL Cholesterol 54 mg/dL (40-60); LDL Cholesterol, Calculated 77 (<130); Magnesium 2.1 mg/dL (1.8-2.4); Protein, Total 5.7 g/dL (6.4-8.2); Sodium Level 125 mmol/L (136-145); Troponin I < 0.02 ng/mL (0.0-0.045)
[2020-09-29] MEDS: LEVOTHYROXINE SOD 0.088 MG TAB PO SCH (06:10)
--- NOTE | 2020-09-29 08:45 | P.CNS ---
Date of Consult: 09/29/20 Reason for Consult: Hyponatremia Requesting Physician: Walter Huang Primary Care Provider: Dr. Aaron Chief Complaint: Fatigue History of Present Illness: 85-year-old female with history of multiple medical problems including GERD, hyperlipidemia, hypertension, chronic pain with Pundental nerve ablation, atrial fibrillation on chronic anticoagulation therapy, CAD, carotid arterial disease, surgical hypothyroidism, and possible early Parkinson's. Patient came to the ER for further evaluation due to increasing fatigue, poor appetite, nausea and vomiting and possible seizure-like activity. Presyncope also mentioned. Most of the information came from the family members. They report patient has been treated medically for recent UTI with Macrobid. She also is being seen by pain specialist and neurologist for predental nerve ablation. Neurology also has recently started medication carbidopa levodopa for possible early Parkinson's. Other medications include hydrochlorothiazide, Cymbalta, levothyroxine, hyperlipidemia, Plavix, Eliquis, Norvasc, amiodarone, Imdur, Protonix, losartan and Lyrica. Patient was brought into the ER for further evaluation. 15:11 This 85 yrs old Female presents to ER via EMS with complaints of Syncope, kaiser Nausea/Vomiting. 15:11 The patient has experienced near-syncope, almost passed out, felt dizzy, felt faint, kaiser felt generally weak. Onset: The symptoms/episode began/occurred just prior to arrival. Duration: This was a single episode, that lasted 45 second(s). Context: the episode(s) was witnessed, by EMS personnel. Associated injury: The patient did not suffer any apparent associated injury. Associated signs and symptoms: The patient has no apparent associated signs or symptoms. Current symptoms: Currently, the patient is not experiencing any symptoms. The patient has experienced similar episodes in the past, several times. Allergies hydrocodone Adverse Reaction (Verified 09/28/20 21:39) Insomnia Home medications list reviewed: Yes Home Medications: Amiodarone HCl [Cordarone Tab] 100 mg PO BID 09/28/20 Amlodipine Besylate [Norvasc] 2.5 mg PO DAILY 09/28/20 Carbidopa/Levodopa/Entacapone [Zvhaicxfs-Lhfjjdlz-Mksc 150 mg] 1 each PO TID 09/28/20 Cholecalciferol (Vitamin D3) [Vitamin D3] 50 mcg PO DAILY 09/28/20 Clopidogrel Bisulfate [Plavix] 75 mg PO DAILY 09/28/20 Codeine/APAP [Tylenol W/Codeine #3 tab] 1 tab PO Q6HP PRN 09/28/20 Duloxetine HCl [Cymbalta] 20 mg PO BID 09/28/20 Isosorbide Mononitrate [Isosorbide Mononitrate ER] 30 mg PO DAILY 09/28/20 Levothyroxine [Synthroid] 88 mcg PO [id number] 09/28/20 Losartan Potassium [Cozaar] 100 mg PO DAILY 09/28/20 Nature Made-Super Complex 1 tab PO DAILY 09/28/20 Pantoprazole Sodium [Protonix] 20 mg PO DAILY 09/28/20 Phenazopyridine HCl [Pyridium] 200 mg PO Q8HP PRN 09/28/20 Potassium Chloride 20 meq PO DAILY 09/28/20 Pregabalin [Lyrica] 50 mg PO TID 09/28/20 [place] Vitamin Suppleme 1 tab PO DAILY 09/28/20 - Past Medical/Surgical History Diabetic: No -: Hypertension -: Hyperlipidemia -: Carotid arterial disease -: Atrial fibrillation on chronic anticoagulation therapy -: GERD -: Pudental nerve ablation -: Surgical hypothyroidism -: 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 -: Hearing loss -: Carotid enterectomy -: Thyroidectomy Psychosocial/ Personal History: Patient lives at home with family - Social History Alcohol use: No CD- Drugs: No Caffeine use: Yes Place of Residence: Home Review of Systems 10-point ROS is otherwise unremarkable General: Weakness, Malaise Neurological: Weakness Physical Examination Temp Pulse Resp BP Pulse Ox 98.0 F 72 17 135/62 96 09/29/20 06:03 09/29/20 06:03 09/29/20 06:03 09/29/20 06:03 09/29/20 06:03 General: In no apparent distress, Cooperative HEENT: Atraumatic Neck: Supple Respiratory: Clear to auscultation bilaterally Cardiovascular: No edema, Regular rate/rhythm Gastrointestinal: Soft and benign, Non-distended Musculoskeletal: No clubbing, No contractures Integumentary: No rashes, No cyanosis Neurological: Normal speech Laboratory Data (last 24 hrs) 09/28/20 13:08: Phosphorus 2.4 L 09/28/20 13:08: PT 12.1, INR 1.05 09/28/20 13:08: WBC 7.20, Hgb 11.4 L, Hct 32.3 L, Plt Count 349 09/28/20 13:08: Sodium 119 L*, Potassium 2.4 L*, BUN 12, Creatinine 0.87, Glucose 180 H, Magnesium 2.2, Total Bilirubin 1.0, AST 26, ALT 11 L, Alkaline Phosphatase 36 L, Lipase 257 Imagings Data: EXAM DESCRIPTION: CT - Head C Spine Cap W Con - 09/28/2020 1:23 pm COMPARISON: None. TECHNIQUE: Axial [address] head images were obtained without IV contrast. Axial [address] cervical spine images were obtained with sagittal and coronal reconstruction images reviewed. All CT scans are performed using dose optimization technique as appropriate and may include automated exposure control or mA/KV adjustment according to patient size. FINDINGS: No intracranial hemorrhage, mass, or edema. No mid-line shift or abnormal fluid collection. Mastoid air cells and paranasal sinuses are clear. No skull fracture or acute bony finding. Mild chronic small vessel ischemic changes. Cervical body height and alignment are normal. No disc space narrowing. No fracture or acute bony finding. No paraspinal mass or hematoma. Mild uncovertebral joint hypertrophy is present at the C4-5, C5-6, and C6-7 levels with mild neural foraminal narrowing. No central spinal stenosis. Chest: No aortic aneurysm or dissection. Coronary artery calcifications. No pericardial effusion. Negative for pulmonary embolism. Scattered ground-glass opacities likely represents hypoventilation. No edema or evidence of pneumonia. No suspicious pulmonary nodules are identified. Abdomen/pelvis: No focal liver lesions identified. Gallbladder is unremarkable. The adrenal glands are mildly thickened but no mass. Pancreas is unremarkable. Spleen is unremarkable. No renal masses or hydronephrosis. No suspicious pancreatic lesions. No pancreatic duct dilatation. Normal appendix. Moderate stool in the rectum and colon. No bowel obstruction. No fracture identified. IMPRESSION: 1. No acute intracranial abnormality. Mild chronic small vessel ischemic changes. 2. No fracture or traumatic malalignment of the cervical spine. 3. No acute findings in the chest, abdomen, or pelvis. 4. A few incidental findings as noted above. EXAM DESCRIPTION: RAD - Chest Single View - 09/28/2020 2:30 pm CLINICAL HISTORY: COUGH COMPARISON: Portable August 12 TECHNIQUE: AP portable chest image was obtained 09/28/2020 2:30 pm . FINDINGS: No focal mass or consolidation. Interstitial pattern not substantially different from comparison. Hilar regions within normal limits. Heart and vasculature are normal. No measurable pleural effusion and no pneumothorax. No acute bony abnormality seen. No acute aortic findings suspected. IMPRESSION: No acute cardiopulmonary process. Conclusions/Impression: Hypoosmolar Hyponatremia in the setting of hypotension and hypovolemia exacerbated by HCTZ -Continue IVF with NS -Repeat BMP this afternoon -Discontinue HCTZ -May need to stop Cymbalta if sodium worsens -Encourage nutrition Hypokalemia -Replete with oral potassium Hypocalcemia -Continue Vitamin D3 HypoPO4 -Encourage nutrition -Repeat PO4 today Rhabdomyolysis may be due to hypokalemia -Replete potassium HTN -Continue Amlodipine and Imdur Anemia in chronic illness -Monitor H&H Hypothyroidism -Continue Levothyroxine Thank you kindly for the consultation. Case reviewed with Dr. Huang.
[2020-09-29] MEDS: AMIODARONE HCL 200 MG TAB PO SCH ×2 (10:27→21:05)
[2020-09-29] MEDS: APIXABAN 2.5 MG TABLET PO SCH ×2 (10:27→21:05)
[2020-09-29] MEDS: AMLODIPINE 2.5 MG TAB PO SCH (10:27)
[2020-09-29] MEDS: CLOPIDOGREL 75 MG TABLET PO SCH (10:27)
[2020-09-29] MEDS: FOLIC ACID 1 MG TABLET PO SCH (10:28)
[2020-09-29] MEDS: VITAMIN D 1000 UNIT TAB PO SCH (10:28)
[2020-09-29] MEDS: ISOSORBIDE MONO SR 30 MG TAB PO SCH (10:29)
[2020-09-29] MEDS: THIAMINE HCL 100 MG TABLET PO SCH (10:29)
[2020-09-29] MEDS: DULOXETINE 20 MG CAP PO SCH (10:29)
[2020-09-29] MEDS: POTASSIUM CL SA 10 MEQ TAB PO SCH ×2 (10:30→16:25)
[2020-09-29] MEDS: FAMOTIDINE 20 MG TAB PO SCH ×2 (10:37→21:05)
[2020-09-29] MEDS: PREGABALIN 50 MG CAP PO SCH ×3 (10:37→21:05)
[2020-09-29] MEDS: CODEINE 30MG/APAP 300MG TAB PO PRN (10:40)
[2020-09-29] MEDS: NA CHLORIDE 0.9% 1,000 ML IV SCH ×2 (10:42→21:08)
--- NOTE | 2020-09-29 13:01 | EKG ---
Test Date: 2020-09-28 Test Time: 13:03:18 Sourcing Consultant: SUZY MEASUREMENT RESULTS: Intervals: Rate: 53 CT: 206 QRSD: 130 QT: 660 QTc: 619 Lewis: P: 38 CT: 206 QRS: -29 T: 30 INTERPRETIVE STATEMENTS: Sinus bradycardia Right bundle branch block Abnormal ECG Compared to ECG 08/12/2020 23:52:49 Right bundle-branch block now present Sinus rhythm no longer present T-wave abnormality no longer present Electronically Signed On 09-29-20 12:59:35 CDT by Danny Zuniga
[2020-09-29] MEDS: ENSURE ENLIVE 237 ML CAN PO SCH ×2 (13:42→21:06)
[2020-09-29 16:08] LABS: Phosphorus 1.3 mg/dL (2.5-4.9); Potassium 3.7 mmol/L (3.5-5.1)
[2020-09-29] MEDS ORDERED: POTASSIUM CL SA 10 MEQ TAB PO ONE (16:41)
[2020-09-29] MEDS: ATORVASTATIN 80 MG TAB PO SCH (21:05)
[2020-09-29] MEDS: FENOFIBRATE 48 MG TAB PO SCH (21:05)
[2020-09-29] MEDS ORDERED: POTASSIUM PHOS 30 MM in NA CHLORIDE 0.9% 500 ML IV ONE (21:48)
[2020-09-29] MEDS ORDERED: POTASSIUM PHOS IN 0.9 % NACL 30 MMOL/500 ML BAG IV ONE (23:21)
[2020-09-30] MEDS ORDERED: LORazepam 2 MG/ML VIAL IV ONE (00:49)
[2020-09-30 05:52] LABS: Absolute Lymphocytes (CBC) 0.9 K/uL (0.7-4.9); Basophils % 0.8 % (0-1.3); Hematocrit 27.7 % (36.0-45.0); MPV 7.3 fL (7.6-11.3); RBC Red Blood Cell Count 3.12 M/uL (3.86-4.86)
--- NOTE | 2020-09-30 06:01 | P.DS ---
Admission Date: 09/28/20 Discharge Date: 09/30/20 Primary Care Provider: Dr. Aaron Disposition: TRANSFER TO INPATIENT REHAB Reason for Admission: Fatigue Consultations: Nephrology--Dr. Eden Procedures: CT scan: FINDINGS: No intracranial hemorrhage, mass, or edema. No mid-line shift or abnormal fluid collection. Mastoid air cells and paranasal sinuses are clear. No skull fracture or acute bony finding. Mild chronic small vessel ischemic changes. Cervical body height and alignment are normal. No disc space narrowing. No fracture or acute bony finding. No paraspinal mass or hematoma. Mild uncovertebral joint hypertrophy is present at the C4-5, C5-6, and C6-7 levels with mild neural foraminal narrowing. No central spinal stenosis. Chest: No aortic aneurysm or dissection. Coronary artery calcifications. No pericardial effusion. Negative for pulmonary embolism. Scattered ground-glass opacities likely represents hypoventilation. No edema or evidence of pneumonia. No suspicious pulmonary nodules are identified. Abdomen/pelvis: No focal liver lesions identified. Gallbladder is unremarkable. The adrenal glands are mildly thickened but no mass. Pancreas is unremarkable. Spleen is unremarkable. No renal masses or hydronephrosis. No suspicious pancreatic lesions. No pancreatic duct dilatation. Normal appendix. Moderate stool in the rectum and colon. No bowel obstruction. No fracture identified. IMPRESSION: 1. No acute intracranial abnormality. Mild chronic small vessel ischemic changes. 2. No fracture or traumatic malalignment of the cervical spine. 3. No acute findings in the chest, abdomen, or pelvis. 4. A few incidental findings as noted above. Medical problem List: Presyncope, poor appetite, nausea secondary to hyponatremia with hypokalemia Mild protein malnutrition GERD Hypertension Hyperlipidemia Carotid arterial disease Chronic atrial fibrillation on anticoagulation therapy Surgical hypothyroidism Chronic pain with pudental nerve ablation 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 Brief History of Present Illness: 85-year-old female with history of multiple medical problems including GERD, hyperlipidemia, hypertension, chronic pain with Pundental nerve ablation, atrial fibrillation on chronic anticoagulation therapy, CAD, carotid arterial disease, surgical hypothyroidism, and possible early Parkinson's. Patient came to the ER for further evaluation due to increasing fatigue, poor appetite, nausea and vomiting and possible seizure-like activity. Presyncope also mentioned. Most of the information came from the family members. They report patient has been treated medically for recent UTI with Macrobid. She also is being seen by pain specialist and neurologist for predental nerve ablation. Neurology also has recently started medication carbidopa levodopa for possible early Parkinson's. Other medications include hydrochlorothiazide, Cy mbalta, levothyroxine, hyperlipidemia, Plavix, Eliquis, Norvasc, amiodarone, Imdur, Protonix, losartan and Lyrica. Patient was brought into the ER for further evaluation. In the ER patient was evaluated. Vital signs stable. Sodium 119, potassium 2.4. BUN of 12, creatinine 0.87 with a GFR 62. Glucose 118. Calcium 7.7. INR 1.05. Troponin negative. White count 7.2, hemoglobin 11.4. Platelet count 349. Urinalysis unremarkable. Covid test negative. CT chest, brain, neck, and abdomen unremarkable. Patient was started on IV fluids. Patient admitted for further evaluation and treatment. Family desires patient to be transferred to [facility]. Most of her specialist go to [facility]. No beds were available. Patient admitted for further evaluation and treatment. Hospital Course: Plan: Presyncope, poor appetite, nausea secondary to hyponatremia with hypokalemia: Patient doing better today. Medications including hydrochlorothiazide, losartan, and carbidopa levodopa have been discontinued. Continue with IV fluids. Encourage oral intake. Will consult dietary to address daily needs. Case discussed with nephrology. Continue with recommendation. Medications reviewed and adjusted. Physical therapy recommends inpatient rehab due to her current status and the fact that she lives by herself. Patient agreeable to inpatient rehab. We will pursue this. Continue physical therapy and Occupational Therapy at this time. Anticipate continued improvement over the next 24 to 48 hours. Mild protein malnutrition: Will consult dietary to further address. Will advance diet. GERD: Continue Pepcid. Advanced diet as tolerated. Hypertension: Patient appears better hydrated. Hydrochlorothiazide and losartan have been discontinued. Restart Norvasc. Will monitor and adjust medication Hyperlipidemia: Continue fenofibrate and Lipitor. Carotid arterial disease: Continue with her medications including Plavix. Chronic atrial fibrillation on anticoagulation therapy: Continue Eliquis, amiodarone. Surgical hypothyroidism: Continue levothyroxine 88 mcg daily. No adjustment needed at this time. Chronic pain with pudental nerve ablation: Patient is seen by pain specialist and neurology. Continue Cymbalta and Lyrica. Cymbalta was decreased to once daily. 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: Will hold carbidopa levodopa as this may be the cause of some of her symptoms. DVT prophylaxis: Eliquis CODE STATUS: Full code Advance care [id number] minutes: Physical therapy recommends inpatient rehab. This was discussed in detail with the patient. Patient willing to go to inpatient rehab. Social work consulted to help with this process. Time Spent Managing Pts Care (In Minutes): 55 Vital Signs/Physical Exam: Temp Pulse Resp BP Pulse Ox 97.6 F 53 19 135/63 95 09/30/20 00:00 09/30/20 00:00 09/30/20 00:00 09/30/20 00:00 09/30/20 00:00 Laboratory Data at Discharge: WBC 7.40 K/uL (4.3-10.9) 09/29/20 05:10 Hgb 11.4 g/dL (12.0-15.0) L 09/29/20 05:10 Hct 32.1 % (36.0-45.0) L 09/29/20 05:10 Plt Count 323 K/uL (152-406) 09/29/20 05:10 PT 12.1 SECONDS (9.5-12.5) 09/28/20 13:08 INR 1.05 09/28/20 13:08 Sodium 127 mmol/L (136-145) L 09/29/20 15:44 Potassium 3.7 mmol/L (3.5-5.1) 09/29/20 15:44 BUN 8 mg/dL (7-18) 09/29/20 15:44 Creatinine 0.65 mg/dL (0.55-1.3) 09/29/20 15:44 Glucose 95 mg/dL (74-106) 09/29/20 15:44 Phosphorus 1.3 mg/dL (2.5-4.9) L 09/29/20 15:44 Magnesium 2.1 mg/dL (1.8-2.4) 09/29/20 05:10 Total Bilirubin 0.9 mg/dL (0.2-1.0) 09/29/20 05:10 AST 22 U/L (15-37) 09/29/20 05:10 ALT 32 U/L (12-78) 09/29/20 05:10 Alkaline Phosphatase 35 U/L (45-117) L 09/29/20 05:10 Troponin I < 0.02 ng/mL (0.0-0.045) 09/29/20 05:10 Triglycerides 147 mg/dL (<150) 09/29/20 05:10 Cholesterol 160 mg/dL (<200) 09/29/20 05:10 HDL Cholesterol 54 mg/dL (40-60) 09/29/20 05:10 Cholesterol/HDL Ratio 2.96 09/29/20 05:10 Lipase 257 U/L (73-393) 09/28/20 13:08 Home Medications: Amiodarone HCl [Cordarone Tab] 100 mg PO BID 09/28/20 Amlodipine Besylate [Norvasc] 2.5 mg PO DAILY 09/28/20 Carbidopa/Levodopa/Entacapone [Ajcvxhpiq-Djkpqpaf-Lrtt 150 mg] 1 each PO TID 09/28/20 Cholecalciferol (Vitamin D3) [Vitamin D3] 50 mcg PO DAILY 09/28/20 Clopidogrel Bisulfate [Plavix] 75 mg PO DAILY 09/28/20 Codeine/APAP [Tylenol W/Codeine #3 tab] 1 tab PO Q6HP PRN 09/28/20 Duloxetine HCl [Cymbalta] 20 mg PO BID 09/28/20 Isosorbide Mononitrate [Isosorbide Mononitrate ER] 30 mg PO DAILY 09/28/20 Levothyroxine [Synthroid] 88 mcg PO [id number] 09/28/20 Losartan Potassium [Cozaar] 100 mg PO DAILY 09/28/20 Nature Made-Super Complex 1 tab PO DAILY 09/28/20 Pantoprazole Sodium [Protonix] 20 mg PO DAILY 09/28/20 Phenazopyridine HCl [Pyridium] 200 mg PO Q8HP PRN 09/28/20 Potassium Chloride 20 meq PO DAILY 09/28/20 Pregabalin [Lyrica] 50 mg PO TID 09/28/20 [place] Vitamin Suppleme 1 tab PO DAILY 09/28/20 Followup: NONE,NONE [Primary Care Provider] -
[2020-09-30 06:14] LABS: ALT/SGPT 32 U/L (12-78); AST/SGOT 19 U/L (15-37); Albumin 2.8 g/dL (3.4-5.0); Alkaline Phosphatase 30 U/L (45-117); BUN Blood Urea Nitrogen 7 mg/dL (7-18); Bicarbonate 28 mmol/L (21-32); Bilirubin Total 0.5 mg/dL (0.2-1.0); Glucose Level 80 mg/dL (74-106); Magnesium 2.1 mg/dL (1.8-2.4); Phosphorus 4.9 mg/dL (2.5-4.9); Potassium 5.1 mmol/L (3.5-5.1); Protein, Total 4.8 g/dL (6.4-8.2); Sodium Level 133 mmol/L (136-145)
--- NOTE | 2020-09-30 08:10 | P.PN ---
Subjective Date of Service: 09/30/20 Primary Care Provider: Dr. Aaron Chief Complaint: Fatigue Subjective: Other (Patient fell yesterday without any head injury as reported by nurse. Skin tear noted. Patient had a difficult night. Some altered mental status noted.) Physical Examination - Vital Signs Temperature: 97.3 F Blood Pressure: 104/66 Pulse: 43 Respirations: 16 Pulse Ox (%): 95 Assessment & Plan Discharge Plan: Other (Inpatient rehab) Plan to discharge in: 24 Hours Physician Review Additional Text: CT scan: FINDINGS: No intracranial hemorrhage, mass, or edema. No mid-line shift or abnormal fluid collection. Mastoid air cells and paranasal sinuses are clear. No skull fracture or acute bony finding. Mild chronic small vessel ischemic changes. Cervical body height and alignment are normal. No disc space narrowing. No fracture or acute bony finding. No paraspinal mass or hematoma. Mild uncovertebral joint hypertrophy is present at the C4-5, C5-6, and C6-7 levels with mild neural foraminal narrowing. No central spinal stenosis. Chest: No aortic aneurysm or dissection. Coronary artery calcifications. No pericardial effusion. Negative for pulmonary embolism. Scattered ground-glass opacities likely represents hypoventilation. No edema or evidence of pneumonia. No suspicious pulmonary nodules are identified. Abdomen/pelvis: No focal liver lesions identified. Gallbladder is unremarkable. The adrenal glands are mildly thickened but no mass. Pancreas is unremarkable. Spleen is unremarkable. No renal masses or hydronephrosis. No suspicious pancreatic lesions. No pancreatic duct dilatation. Normal appendix. Moderate stool in the rectum and colon. No bowel obstruction. No fracture identified. IMPRESSION: 1. No acute intracranial abnormality. Mild chronic small vessel ischemic changes. 2. No fracture or traumatic malalignment of the cervical spine. 3. No acute findings in the chest, abdomen, or pelvis. 4. A few incidental findings as noted above. Physical Exam: General: Patient alert. Some confusion noted. HEENT: Atraumatic, Normocephalic, PERRLA Neck: Supple Respiratory: Clear to auscultation bilaterally, Normal air movement Cardiovascular: Normal pulses, Regular rate/rhythm Gastrointestinal: Normal bowel sounds, No ascites, No tenderness, No masses, No rebound, No guarding Musculoskeletal: No erythema, No tenderness, No warmth Integumentary: No tenderness/swelling, No erythema, No warmth, No cyanosis, Neurological: Normal speech, Normal strength at 5/5 x4 extr, Normal tone, Normal affect Impression: Altered mental status suspect metabolic encephalopathy Presyncope, poor appetite, nausea secondary to hyponatremia with hypokalemia Mild protein malnutrition GERD Hypertension Hyperlipidemia Carotid arterial disease Chronic atrial fibrillation on anticoagulation therapy Surgical hypothyroidism Chronic pain with pudental nerve ablation 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 Plan: Altered mental status suspect metabolic encephalopathy: Will obtain CT head to further evaluate. No evidence of infection noted. Still need to get UA. Will have nurse do straight cath. Will check procalcitonin level. Physical therapy to assess. Patient restarted on all her medications including Eliquis, Plavix and amiodarone. Neurology will be consulted. Will discuss with nephrology. We will start back on her Parkinson's medication but at twice daily instead of 3 times a day. Presyncope, poor appetite, nausea secondary to hyponatremia with hypokalemia: Overall this is improved. Hyponatremia and hypokalemia improved. Medications adjusted. No longer on hydrochlorothiazide and losartan. Carbidopa levodopa restarted but at twice daily dose. Await recommendations by nephrology and neurology. Continue physical therapy and Occupational Therapy. Patient has been approved for inpatient rehab. Due to her altered mental status will check CT scan as above. Await recommendations from neurology. Will discuss further with nephrology. Mild protein malnutrition: Will consult dietary to further address. Will advance diet. GERD: Continue Pepcid. Advanced diet as tolerated. Hypertension: Patient appears better hydrated. Hydrochlorothiazide and losartan have been discontinued. Continue Norvasc. Will monitor and adjust medication Hyperlipidemia: Continue fenofibrate and Lipitor. Carotid arterial disease: Continue with her medications including Plavix. Chronic atrial fibrillation on anticoagulation therapy: Continue Eliquis, amiodarone. Surgical hypothyroidism: Continue levothyroxine 88 mcg daily. No adjustment needed at this time. Chronic pain with pudental nerve ablation: Patient is seen by pain specialist and neurology. Continue Cymbalta and Lyrica. Cymbalta was decreased to once daily. 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: Restart carbidopa levodopa at twice daily instead of 3 times a day. Will discuss with neurology who has been consulted. DVT prophylaxis: Eliquis CODE STATUS: Full code Advance care [id number] minutes: Patient has been accepted to inpatient rehab. Await work-up above. Consider inpatient rehab likely in the next 24 to 48 hours. Time Spent Managing Pts Care (In Minutes): 55
--- NOTE | 2020-09-30 08:19 | RAD REPORT ---
EXAM DESCRIPTION: CT - Head Brain Wo Cont - 09/30/2020 8:01 am CLINICAL HISTORY: fall, AMS COMPARISON: HEAD BRAIN W O CONTRAST dated 11/24/2010; Head C Spine Cap W Con dated 09/28/2020 TECHNIQUE: Axial 5 mm thick images of the head were obtained without IV contrast. All CT scans are performed using dose optimization technique as appropriate and may include automated exposure control or mA/KV adjustment according to patient size. FINDINGS: No intracranial hemorrhage, mass, edema or shift of mid-line structures. No acute infarcti on changes seen. No abnormal extra-axial fluid collections. Atrophy changes are mild for age with margarita tricles in proportion. Chronic ischemic changes are minimal. Arterial tree calcifications are present . Mastoid air cells and visualized portions of the paranasal sinuses are clear. No acute bony findings. IMPRESSION: Negative non-contrast CT head examination for intracranial hemorrhage or acute findings. No significant change from comparison.
[2020-09-30] MEDS: ENSURE ENLIVE 237 ML CAN PO SCH ×2 (09:00→22:17)
[2020-09-30] MEDS ORDERED: CARBIDOPA LEVODOPA ENTA PO SCH (09:00)
--- NOTE | 2020-09-30 10:02 | P.PN ---
Date of Service: 09/30/20 Vital Signs Temp Pulse Resp BP Pulse Ox 97.3 F 43 L 16 104/66 95 09/30/20 08:10 09/30/20 08:10 09/30/20 08:10 09/30/20 08:10 09/30/20 08:10 Medications Acetaminophen (Acetaminophen 500 Mg Tab) 500 mg PO Q4HP PRN PRN Reason: TEMP > 101' F Last Admin: 09/29/20 13:06 Dose: 500 mg Documented by: Acetaminophen/Codeine Phosphate (Codeine 30mg/Apap 300mg Tab) 1 tab PO Q8H PRN PRN Reason: Pain scale 5-7 (Moderate) Last Admin: 09/29/20 10:40 Dose: 1 tab Documented by: Amiodarone HCl (Amiodarone Hcl 200 Mg Tab) 200 mg PO BID [facility] Last Admin: 09/29/20 21:05 Dose: 200 mg Documented by: Amlodipine Besylate (Amlodipine 2.5 Mg Tab) 2.5 mg PO DAILY [facility] Last Admin: 09/29/20 10:27 Dose: 2.5 mg Documented by: Apixaban (Apixaban 2.5 Mg Tablet) 2.5 mg PO BID [facility] Last Admin: 09/29/20 21:05 Dose: 2.5 mg Documented by: Atorvastatin Calcium (Atorvastatin 80 Mg Tab) 80 mg PO BEDTIME [facility] Last Admin: 09/29/20 21:05 Dose: 80 mg Documented by: Cholecalciferol (Vitamin D 1000 Unit Tab) 2,000 unit PO DAILY [facility] Last Admin: 09/29/20 10:28 Dose: 2,000 unit Documented by: Clopidogrel Bisulfate (Clopidogrel 75 Mg Tablet) 75 mg PO DAILY [facility] Last Admin: 09/29/20 10:27 Dose: 75 mg Documented by: Duloxetine HCl (Duloxetine 20 Mg Cap) 20 mg PO DAILY [facility] Last Admin: 09/29/20 10:29 Dose: 20 mg Documented by: Famotidine (Famotidine 20 Mg Tab) 20 mg PO BID [facility]; Protocol Last Admin: 09/29/20 21:05 Dose: 20 mg Documented by: Fenofibrate (Fenofibrate 48 Mg Tab) 48 mg PO BEDTIME [facility] Last Admin: 09/29/20 21:05 Dose: 48 mg Documented by: Folic Acid (Folic Acid 1 Mg Tablet) 1 mg PO DAILY [facility] Last Admin: 09/29/20 10:28 Dose: 1 mg Documented by: Home Med (Carbidopa/Levodopa/Entacapone [Vozhfsanw-Lcyeaelg-Tqmf 150 Mg]) 1 each PO BID [facility] Isosorbide Mononitrate (Isosorbide [place] Sr 30 Mg Tab) 30 mg PO DAILY [facility] Last Admin: 09/29/20 10:29 Dose: 30 mg Documented by: Levothyroxine Sodium (Levothyroxine Sod 0.088 Mg Tab) 0.088 mg PO DAILYAC [facility] Last Admin: 09/29/20 06:10 Dose: 0.088 mg Documented by: Nutritional Formula (Ensure Enlive 237 Ml Can) 237 ml PO BID [facility] Last Admin: 09/29/20 21:06 Dose: 237 ml Documented by: Ondansetron HCl (Ondansetron 4 Mg/2 Ml Vial) 4 mg IV Q6HP PRN PRN Reason: NAUSEA / VOMITING Pregabalin (Pregabalin 50 Mg Cap) 50 mg PO TID [facility] Last Admin: 09/29/20 21:05 Dose: 50 mg Documented by: Sodium Chloride (Flush Normal Saline 10 Ml) 10 ml IV BID [facility] Last Admin: 09/29/20 21:06 Dose: 10 ml Documented by: Thiamine HCl (Thiamine Hcl 100 Mg Tablet) 100 mg PO DAILY [facility] Last Admin: 09/29/20 10:29 Dose: 100 mg Documented by: Assessment/ Plan: Nephrology Confusion overnight with agitation requiring Ativan. Resting comfortably this morning. She at her breakfast. Vitals, medications, blood work and imaging reviewed in the chart. General: In no apparent distress, Cooperative HEENT: Atraumatic Neck: Supple Respiratory: Clear to auscultation bilaterally Cardiovascular: No edema, Regular rate/rhythm Gastrointestinal: Soft and benign, Non-distended Musculoskeletal: No clubbing, No contractures Integumentary: No rashes, No cyanosis Neurological: Normal speech Laboratory Data (last 24 hrs) 09/28/20 13:08: Phosphorus 2.4 L 09/28/20 13:08: PT 12.1, INR 1.05 09/28/20 13:08: WBC 7.20, Hgb 11.4 L, Hct 32.3 L, Plt Count 349 09/28/20 13:08: Sodium 119 L*, Potassium 2.4 L*, BUN 12, Creatinine 0.87, Glucose 180 H, Magnesium 2.2, Total Bilirubin 1.0, AST 26, ALT 11 L, Alkaline Phosphatase 36 L, Lipase 257 Imagings Data: EXAM DESCRIPTION: CT - Head C Spine Cap W Con - 09/28/2020 1:23 pm COMPARISON: None. TECHNIQUE: Axial [address] head images were obtained without IV contrast. Axial [address] cervical spine images were obtained with sagittal and coronal reconstruction images reviewed. All CT scans are performed using dose optimization technique as appropriate and may include automated exposure control or mA/KV adjustment according to patient size. FINDINGS: No intracranial hemorrhage, mass, or edema. No mid-line shift or abnormal fluid collection. Mastoid air cells and paranasal sinuses are clear. No skull fracture or acute bony finding. Mild chronic small vessel ischemic changes. Cervical body height and alignment are normal. No disc space narrowing. No fracture or acute bony finding. No paraspinal mass or hematoma. Mild uncovertebral joint hypertrophy is present at the C4-5, C5-6, and C6-7 levels with mild neural foraminal narrowing. No central spinal stenosis. Chest: No aortic aneurysm or dissection. Coronary artery calcifications. No pericardial effusion. Negative for pulmonary embolism. Scattered ground-glass opacities likely represents hypoventilation. No edema or evidence of pneumonia. No suspicious pulmonary nodules are identified. Abdomen/pelvis: No focal liver lesions identified. Gallbladder is unremarkable. The adrenal glands are mildly thickened but no mass. Pancreas is unremarkable. Spleen is unremarkable. No renal masses or hydronephrosis. No suspicious pancreatic lesions. No pancreatic duct dilatation. Normal appendix. Moderate stool in the rectum and colon. No bowel obstruction. No fracture identified. IMPRESSION: 1. No acute intracranial abnormality. Mild chronic small vessel ischemic changes. 2. No fracture or traumatic malalignment of the cervical spine. 3. No acute findings in the chest, abdomen, or pelvis. 4. A few incidental findings as noted above. EXAM DESCRIPTION: RAD - Chest Single View - 09/28/2020 2:30 pm CLINICAL HISTORY: COUGH COMPARISON: Portable August 12 TECHNIQUE: AP portable chest image was obtained 09/28/2020 2:30 pm . FINDINGS: No focal mass or consolidation. Interstitial pattern not substantia lly different from comparison. Hilar regions within normal limits. Heart and vasculature are normal. No measurable pleural effusion and no pneumothorax. No acute bony abnormality seen. No acute aortic findings suspected. IMPRESSION: No acute cardiopulmonary process. Conclusions/Impression: Hypoosmolar Hyponatremia in the setting of hypotension and hypovolemia exacerbated by HCTZ -Hold HCTZ -May need to stop Cymbalta if sodium worsens -Encourage nutrition Hypokalemia -Replete with oral potassium prn Hypocalcemia -Continue Vitamin D3 HypoPO4 -Encourage nutrition Rhabdomyolysis may be due to hypokalemia -Replete potassium prn HTN -Continue Amlodipine and Imdur Anemia in chronic illness -Monitor H&H Hypothyroidism -Continue Levothyroxine Worsening confusion concerning for underlying dementia. -Plan for MRI to evaluate for stroke. -Send UA -Neurology to evaluation the patient Case reviewed with Dr. Huang
[2020-09-30] MEDS: DULOXETINE 20 MG CAP PO SCH (10:14)
[2020-09-30] MEDS: AMLODIPINE 2.5 MG TAB PO SCH (10:14)
[2020-09-30] MEDS: ISOSORBIDE MONO SR 30 MG TAB PO SCH (10:15)
[2020-09-30] MEDS: FOLIC ACID 1 MG TABLET PO SCH (10:15)
[2020-09-30] MEDS: CLOPIDOGREL 75 MG TABLET PO SCH (10:15)
[2020-09-30] MEDS: PREGABALIN 50 MG CAP PO SCH ×3 (10:15→22:17)
[2020-09-30] MEDS: VITAMIN D 1000 UNIT TAB PO SCH (10:15)
[2020-09-30] MEDS: THIAMINE HCL 100 MG TABLET PO SCH (10:15)
[2020-09-30] MEDS: APIXABAN 2.5 MG TABLET PO SCH ×2 (10:16→22:16)
[2020-09-30] MEDS: FAMOTIDINE 20 MG TAB PO SCH ×2 (10:16→22:16)
[2020-09-30] MEDS: AMIODARONE HCL 200 MG TAB PO SCH ×2 (10:16→22:17)
[2020-09-30] MEDS: LEVOTHYROXINE SOD 0.088 MG TAB PO SCH (10:16)
--- NOTE | 2020-09-30 16:42 | RAD REPORT ---
EXAM DESCRIPTION: MRI - Brain W/Wo Cont - 09/30/2020 4:29 pm CLINICAL HISTORY: confusion, suspect dementia Headache, drowsiness COMPARISON: MRA Head Wo Cont dated 09/30/2020; Head C Spine Cap W Con dated 09/28/2020; Head Brain Wo C ont dated 09/30/2020 TECHNIQUE: Multi-sequence, multiplanar MR imaging of the brain was performed with contrast. FINDINGS: No intracranial hemorrhage, hydrocephalus, or extra-axial fluid collection.Mild T2 and FLA IR hyperintensity in the periventricular and deep white is likely related to chronic microvascular is chemia. No edema or shift of midline structures. No intracranial mass. DWI is negative for acute CVA. The midline structures are normally formed. Mastoid air cells and paranasal sinuses are clear. Post-contrast images show no abnormal enhancement to suggest tumor or infection. IMPRESSION: Negative for acute CVA or other acute intracranial process. Mild to moderate chronic microvascular ischemic changes.
--- NOTE | 2020-09-30 16:45 | RAD REPORT ---
EXAM DESCRIPTION: MRI - MRA Head Wo Cont - 09/30/2020 4:29 pm CLINICAL HISTORY: confusion, suspect dementia CVA COMPARISON: Head Brain Wo Cont dated 09/30/2020 FINDINGS: 3D noncontrast [id number] MR angiography of the [place] was performed. No aneurysm, flow-limiting stenosis or vascular malformation is seen. Forward flow seen in the verteb ral arteries. The right vertebral artery dominant. The visualized dural venous sinuses appear patent. IMPRESSION: No significant flow abnormality of the [place] is identified.
--- NOTE | 2020-09-30 16:50 | RAD REPORT ---
EXAM DESCRIPTION: MRI - MRA Neck W/Wo Cont - 09/30/2020 4:29 pm CLINICAL HISTORY: confusion, suspect dementia Headache, drowsiness COMPARISON: No comparisons FINDINGS: Contrast enhance 2D [id number] MR angiography of the neck vessels was performed. Left aortic arch is noted with a bovine configuration, a normal variant. Both subclavian and common carotid arteries are patent bilaterally. No evidence of right-sided internal carotid artery stenosis. A focal moderate stenosis of the proxima l left internal carotid artery is seen, estimated at 70-80% based on NASCET criteria. Antegrade flow is seen in the vertebral arteries. IMPRESSION: Moderate stenosis (70-80% based on NASCET criteria) of the left carotid bulb.
[2020-09-30] MEDS: ATORVASTATIN 80 MG TAB PO SCH (22:17)
[2020-09-30] MEDS: FENOFIBRATE 48 MG TAB PO SCH (22:17)
[2020-09-30] MEDS: CARBIDOPA LEVODOPA PO SCH (22:18)
[2020-10-01 05:23] LABS: Basophils % 0.9 % (0-1.3); Hematocrit 33.1 % (36.0-45.0); Lymphocytes % 13.2 % (15.3-44.8); MPV 7.1 fL (7.6-11.3); RBC Red Blood Cell Count 3.73 M/uL (3.86-4.86)
[2020-10-01 05:48] VITALS: TEMP 97.3
[2020-10-01 05:50] LABS: ALT/SGPT 13 U/L (12-78); AST/SGOT 19 U/L (15-37); Albumin 3.3 g/dL (3.4-5.0); Alkaline Phosphatase 35 U/L (45-117); BUN Blood Urea Nitrogen 6 mg/dL (7-18); Bicarbonate 30 mmol/L (21-32); Bilirubin Total 0.7 mg/dL (0.2-1.0); Glucose Level 84 mg/dL (74-106); Magnesium 2.1 mg/dL (1.8-2.4); Potassium 3.2 mmol/L (3.5-5.1); Protein, Total 5.8 g/dL (6.4-8.2); Sodium Level 133 mmol/L (136-145)
--- NOTE | 2020-10-01 05:59 | P.DS ---
Admission Date: 09/28/20 Discharge Date: 10/01/20 Primary Care Provider: Dr. Aaron Disposition: TRANSFER TO INPATIENT REHAB Discharge Condition: GOOD Reason for Admission: Fatigue Consultations: Neurology-Dr. Gonsalez Nephrology-Dr. Eden Procedures: COVID: Negative CT scan: FINDINGS: No intracranial hemorrhage, mass, or edema. No mid-line shift or abnormal fluid collection. Mastoid air cells and paranasal sinuses are clear. No skull fracture or acute bony finding. Mild chronic small vessel ischemic changes. Cervical body height and alignment are normal. No disc space narrowing. No fracture or acute bony finding. No paraspinal mass or hematoma. Mild uncovertebral joint hypertrophy is present at the C4-5, C5-6, and C6-7 levels with mild neural foraminal narrowing. No central spinal stenosis. Chest: No aortic aneurysm or dissection. Coronary artery calcifications. No pericardial effusion. Negative for pulmonary embolism. Scattered ground-glass opacities likely represents hypoventilation. No edema or evidence of pneumonia. No suspicious pulmonary nodules are identified. Abdomen/pelvis: No focal liver lesions identified. Gallbladder is unremarkable. The adrenal glands are mildly thickened but no mass. Pancreas is unremarkable. Spleen is unremarkable. No renal masses or hydronephrosis. No suspicious pancreatic lesions. No pancreatic duct dilatation. Normal appendix. Moderate stool in the rectum and colon. No bowel obstruction. No fracture identified. IMPRESSION: 1. No acute intracranial abnormality. Mild chronic small vessel ischemic changes. 2. No fracture or traumatic malalignment of the cervical spine. 3. No acute findings in the chest, abdomen, or pelvis. 4. A few incidental findings as noted above. Repeat CT Head: COMPARISON: HEAD BRAIN W O CONTRAST dated 11/24/2010; Head C Spine Cap W Con dated 09/28/2020 TECHNIQUE: Axial 5 mm thick images of the head were obtained without IV contrast. All CT scans are performed using dose optimization technique as appropriate and may include automated exposure control or mA/KV adjustment according to patient size. FINDINGS: No intracranial hemorrhage, mass, edema or shift of mid-line structures. No acute infarction changes seen. No abnormal extra-axial fluid collections. Atrophy changes are mild for age with ventricles in proportion. Chronic ischemic changes are minimal. Arterial tree calcifications are present. Mastoid air cells and visualized portions of the paranasal sinuses are clear. No acute bony findings. IMPRESSION: Negative non-contrast CT head examination for intracranial hemorrhage or acute findings. No significant change from comparison. MRI Brain: COMPARISON: MRA Head Wo Cont dated 09/30/2020; Head C Spine Cap W Con dated 09/28/2020; Head Brain Wo Cont dated 09/30/2020 TECHNIQUE: Multi-sequence, multiplanar MR imaging of the brain was performed with contrast. FINDINGS: No intracranial hemorrhage, hydrocephalus, or extra-axial fluid collection.Mild T2 and FLAIR hyperintensity in the periventricular and deep white is likely related to chronic microvascular ischemia. No edema or shift of midline structures. No intracranial mass. DWI is negative for acute CVA. The midline structures are normally formed. Mastoid air cells and paranasal s inuses are clear. Post-contrast images show no abnormal enhancement to suggest tumor or infection. IMPRESSION: Negative for acute CVA or other acute intracranial process. Mild to moderate chronic microvascular ischemic changes. MRA Brain: COMPARISON: Head Brain Wo Cont dated 09/30/2020 FINDINGS: 3D noncontrast [id number] MR angiography of the [place] was performed. No aneurysm, flow-limiting stenosis or vascular malformation is seen. Forward flow seen in the vertebral arteries. The right vertebral artery dominant. The visualized dural venous sinuses appear patent. IMPRESSION: No significant flow abnormality of the [place] is identified. MRA Neck: COMPARISON: No comparisons FINDINGS: Contrast enhance 2D [id number] MR angiography of the neck vessels was performed. Left aortic arch is noted with a bovine configuration, a normal variant. Both subclavian and common carotid arteries are patent bilaterally. No evidence of right-sided internal carotid artery stenosis. A focal moderate stenosis of the proximal left internal carotid artery is seen, estimated at 70- 80% based on NASCET criteria. Antegrade flow is seen in the vertebral arteries. IMPRESSION: Moderate stenosis (70-80% based on NASCET criteria) of the left carotid bulb. Medical problem List: Altered mental status suspect metabolic encephalopathy Presyncope, poor appetite, nausea secondary to hyponatremia with hypokalemia Mild protein malnutrition GERD Hypertension Hyperlipidemia Carotid arterial disease Chronic atrial fibrillation on anticoagulation therapy Surgical hypothyroidism Chronic pain with pudental nerve ablation 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 Brief History of Present Illness: 85-year-old female with history of multiple medical problems including GERD, hyperlipidemia, hypertension, chronic pain with Pundental nerve ablation, atrial fibrillation on chronic anticoagulation therapy, CAD, carotid arterial disease, surgical hypothyroidism, and possible early Parkinson's. Patient came to the ER for further evaluation due to increasing fatigue, poor appetite, nausea and vomiting and possible seizure-like activity. Presyncope also mentioned. Most of the information came from the family members. They report patient has been treated medically for recent UTI with Macrobid. She also is being seen by pain specialist and neurologist for predental nerve ablation. Neurology also has recently started medication carbidopa levodopa for possible early Parkinson's. Other medications include hydrochlorothiazide, Cymbalta, levothyroxine, hyperlipidemia, Plavix, Eliquis, Norvasc, amiodarone, Imdur, Protonix, losartan and Lyrica. Patient was brought into the ER for further evaluation. In the ER patient was evaluated. Vital signs stable. Sodium 119, potassium 2.4. BUN of 12, creatinine 0.87 with a GFR 62. Glucose 118. Calcium 7.7. INR 1.05. Troponin negative. White count 7.2, hemoglobin 11.4. Platelet count 349. Urinalysis unremarkable. Covid test negative. CT chest, brain, neck, and abdomen unremarkable. Patient was started on IV fluids. Patient admitted for further evaluation and treatment. Family desires patient to be transferred to [facility]. Most of her specialist go to [facility]. No beds were available. Patient admitted for further evaluation and treatment. Hospital Course: Patient presented with altered mental status secondary to metabolic encephalopathy. Patient also had reported some poor appetite, nausea and dizziness. This was likely related to hyponatremia and hypokalemia. The patient was admitted for further evaluation and treatment. In the course of her stay patient was taken off losartan and hydrochlorothiazide. Medications were adjusted. Patient received IV fluids with improvement. Patient was seen by nephrology. Sodium level back to normal baseline. Patient was also seen and evaluated by neurology. Patient with early Parkinson's. Medications were reinstituted. MRI of the brain unremarkable. The patient was qualified to go to inpatient rehab. Patient has done well with physical therapy. At discharge the patient will be transferred to inpatient rehab to continue physical therapy. Patient with hypertension. As mentioned above medications have been adjusted. Patient will longer take losartan hydrochlorothiazide. Patient will continue with Norvasc 5 mg 1 pill daily. Recommend to maintain blood pressure less than 130/80. If blood pressures remain elevated consider restarting losartan. Recommend to discontinue hydrochlorothiazide due to recent hyponatremia. Further adjustment can be done by PCP. Patient with hyperlipidemia. At discharge patient will continue with fenofibrate 48 mg daily. Patient with chronic atrial fibrillation on chronic anticoagulation therapy, carotid arterial disease. At discharge patient will continue with her current medications including amiodarone 100 mg 1 pill twice daily, Plavix 85 mg daily, indoor 30 mg daily, Eliquis 2.5 mg 1 pill twice daily. Recommend to follow-up with cardiology as an outpatient to further address. Patient with GERD. At discharge she will continue with Protonix 20 mg daily. Patient with surgical hypothyroidism. At discharge she will continue with levothyroxine 88 mcg daily. Patient with chronic pain. Patient with history of pudental nerve ablation. Patient sees neurology. At discharge she will continue with her medications including Tylenol 3 3 times a day as needed for pain, Cymbalta 20 mg 1 pill twice daily, and Lyrica 50 mg 1 pill 3 times a day. Patient with Parkinson's. At discharge she will continue with her current medication of carbidopa/levodopa/Entacapone 150 mg 1 pill 3 times a day. Recommend follow-up with neurology as an outpatient to further monitor and adjust medication. Patient may continue with her other medications including vitamin D, stool softener daily, folic acid 1 mg daily, thiamine 100 mg daily, and Ensure twice daily. Vital Signs/Physical Exam: Temp Pulse Resp BP Pulse Ox 97.3 F 56 18 134/60 93 10/01/20 04:00 10/01/20 04:00 10/01/20 04:00 10/01/20 04:00 10/01/20 04:00 General: Alert, In no apparent distress, Oriented x3, Cooperative HEENT: Atraumatic Neck: Supple Respiratory: Clear to auscultation bilaterally, Normal air movement Cardiovascular: Normal pulses, Regular rate/rhythm Gastrointestinal: Normal bowel sounds, No tenderness, No masses, No rebound, No guarding Musculoskeletal: No erythema, No tenderness, No warmth Integumentary: No tenderness/swelling Neurological: Normal speech, Normal strength at 5/5 x4 extr, Normal tone, Normal affect Laboratory Data at Discharge: WBC 7.40 K/uL (4.3-10.9) D 10/01/20 05:03 Hgb 11.7 g/dL (12.0-15.0) L 10/01/20 05:03 Hct 33.1 % (36.0-45.0) L D 10/01/20 05:03 Plt Count 338 K/uL (152-406) 10/01/20 05:03 PT 12.1 SECONDS (9.5-12.5) 09/28/20 13:08 INR 1.05 09/28/20 13:08 Sodium 133 mmol/L (136-145) L 09/30/20 05:27 Potassium 5.1 mmol/L (3.5-5.1) 09/30/20 05:27 BUN 7 mg/dL (7-18) 09/30/20 05:27 Creatinine 0.55 mg/dL (0.55-1.3) 09/30/20 05:27 Glucose 80 mg/dL (74-106) 09/30/20 05:27 Phosphorus 4.9 mg/dL (2.5-4.9) D 09/30/20 05:27 Magnesium 2.1 mg/dL (1.8-2.4) 09/30/20 05:27 Total Bilirubin 0.5 mg/dL (0.2-1.0) 09/30/20 05:27 AST 19 U/L (15-37) 09/30/20 05:27 ALT 32 U/L (12-78) 09/30/20 05:27 Alkaline Phosphatase 30 U/L (45-117) L 09/30/20 05:27 Troponin I < 0.02 ng/mL (0.0-0.045) 09/29/20 05:10 Triglycerides 147 mg/dL (<150) 09/29/20 05:10 Cholesterol 160 mg/dL (<200) 09/29/20 05:10 HDL Cholesterol 54 mg/dL (40-60) 09/29/20 05:10 Cholesterol/HDL Ratio 2.96 09/29/20 05:10 Lipase 257 U/L (73-393) 09/28/20 13:08 Home Medications: Amiodarone HCl [Cordarone*] 100 mg PO BID 09/28/20 Cholecalciferol (Vitamin D3) [Vitamin D3] 50 mcg PO DAILY 09/28/20 Clopidogrel Bisulfate [Plavix*] 75 mg PO DAILY 09/28/20 Codeine/APAP [Tylenol #3*] 1 tab PO Q6HP PRN 09/28/20 Duloxetine HCl [Cymbalta] 20 mg PO BID 09/28/20 Isosorbide Mononitrate [Isosorbide Mononitrate ER] 30 mg PO DAILY 09/28/20 Levothyroxine [Synthroid*] 88 mcg PO [id number] 09/28/20 Nature Made-Super Complex 1 tab PO DAILY 09/28/20 Pantoprazole Sodium [Protonix] 20 mg PO DAILY 09/28/20 Pregabalin [Lyrica*] 50 mg PO TID 09/28/20 [place] Vitamin Suppleme 1 tab PO DAILY 09/28/20 Amlodipine Besylate [Norvasc] 5 mg PO DAILY #60 10/01/20 Apixaban [Eliquis *] 2.5 mg PO BID tablet 10/01/20 Carbidopa/Levodopa/Entacapone [Qbfrnxkxr-Zyssweqt-Hips 150 Mg] 1 each PO TID 10/01/20 Docusate [Colace Cap*] 100 mg PO DAILY #30 cap 10/01/20 Ensure Enlive 237 ml PO BID #60 can 10/01/20 Fenofibrate [Tricor*] 48 mg PO BEDTIME tab 10/01/20 Folic Acid 1 mg PO DAILY #90 tablet 10/01/20 Thiamine HCl [Vitamin B-1*] 100 mg PO DAILY #90 tablet 10/01/20 New Medications: Docusate [Colace Cap*] 100 mg PO DAILY #30 cap Ensure Enlive 237 ml PO BID #60 can Folic Acid 1 mg PO DAILY #90 tablet Amlodipine Besylate [Norvasc] 5 mg PO DAILY #60 Thiamine HCl [Vitamin B-1*] 100 mg PO DAILY #90 tablet Physician Discharge Instructions: Patient presented with altered mental status secondary to metabolic encephalopathy. Patient also had reported some poor appetite, nausea and dizziness. This was likely related to hyponatremia and hypokalemia. The patient was admitted for further evaluation and treatment. In the course of her stay patient was taken off losartan and hydrochlorothiazide. Medications were adjusted. Patient received IV fluids with improvement. Patient was seen by nephrology. Sodium level back to normal baseline. Patient was also seen and evaluated by neurology. Patient with early Parkinson's. Medications were re instituted. MRI of the brain unremarkable. The patient was qualified to go to inpatient rehab. Patient has done well with physical therapy. At discharge the patient will be transferred to inpatient rehab to continue physical therapy. Patient with hypertension. As mentioned above medications have been adjusted. Patient will longer take losartan hydrochlorothiazide. Patient will continue w ith Norvasc 5 mg 1 pill daily. Recommend to maintain blood pressure less than 130/80. If blood pressures remain elevated consider restarting losartan. Recommend to discontinue hydrochlorothiazide due to recent hyponatremia. Further adjustment can be done by PCP. Patient with hyperlipidemia. At discharge patient will continue with fenofibrate 48 mg daily. Patient with chronic atrial fibrillation on chronic anticoagulation therapy, carotid arterial disease. At discharge patient will continue with her current medications including amiodarone 100 mg 1 pill twice daily, Plavix 85 mg daily, indoor 30 mg daily, Eliquis 2.5 mg 1 pill twice daily. Recommend to follow-up with cardiology as an outpatient to further address. Patient with GERD. At discharge she will continue with Protonix 20 mg daily. Patient with surgical hypothyroidism. At discharge she will continue with levothyroxine 88 mcg daily. Patient with chronic pain. Patient with history of pudental nerve ablation. Patient sees neurology. At discharge she will continue with her medications including Tylenol 3 3 times a day as needed for pain, Cymbalta 20 mg 1 pill twice daily, and Lyrica 50 mg 1 pill 3 times a day. Patient with Parkinson's. At discharge she will continue with her current medication of carbidopa/levodopa/Entacapone 150 mg 1 pill 3 times a day. Recommend follow-up with neurology as an outpatient to further monitor and adjust medication. Patient may continue with her other medications including vitamin D, stool softener daily, folic acid 1 mg daily, thiamine 100 mg daily, and Ensure twice daily. Diet: AHA Activity: Fall precautions Followup: NONE,NONE [Primary Care Provider] - Time spent managing pt's care (in minutes): 55
[2020-10-01] MEDS: LEVOTHYROXINE SOD 0.088 MG TAB PO SCH (06:13)
[2020-10-01] MEDS: ENSURE ENLIVE 237 ML CAN PO SCH (09:00)
[2020-10-01] MEDS ORDERED: POTASSIUM CL SA 10 MEQ TAB PO ONE (09:00)
[2020-10-01 09:53] VITALS: O2SAT 90
[2020-10-01] MEDS: CARBIDOPA LEVODOPA PO SCH ×2 (10:30→14:00)
[2020-10-01] MEDS: AMLODIPINE 2.5 MG TAB PO SCH (10:31)
[2020-10-01] MEDS: VITAMIN D 1000 UNIT TAB PO SCH (10:31)
[2020-10-01] MEDS: APIXABAN 2.5 MG TABLET PO SCH (10:31)
[2020-10-01] MEDS: CLOPIDOGREL 75 MG TABLET PO SCH (10:31)
[2020-10-01] MEDS: AMIODARONE HCL 200 MG TAB PO SCH (10:32)
[2020-10-01] MEDS: DULOXETINE 20 MG CAP PO SCH (10:32)
[2020-10-01] MEDS: FAMOTIDINE 20 MG TAB PO SCH (10:32)
[2020-10-01] MEDS: THIAMINE HCL 100 MG TABLET PO SCH (10:33)
[2020-10-01] MEDS: FOLIC ACID 1 MG TABLET PO SCH (10:33)
[2020-10-01] MEDS: PREGABALIN 50 MG CAP PO SCH ×2 (10:33→14:05)
[2020-10-01] MEDS: ISOSORBIDE MONO SR 30 MG TAB PO SCH (10:33)
[2020-10-01] MEDS: CODEINE 30MG/APAP 300MG TAB PO PRN (12:41)
[2020-10-01 12:56] VITALS: BP 176/79
--- NOTE | 2020-10-01 15:30 | P.PN ---
Date of Service: 10/01/20 Vital Signs Temp Pulse Resp BP Pulse Ox 97.3 F 57 18 176/79 H 93 10/01/20 12:00 10/01/20 12:00 10/01/20 13:41 10/01/20 12:00 10/01/20 13:41 Assessment/ Plan: Nephrology Feeling better today. CPS stable without CP or SOB. Appetite waxing and waning. No acute events overnight. Vitals, medications, blood work and imaging reviewed in the chart. General: In no apparent distress, Cooperative HEENT: Atraumatic Neck: Supple Respiratory: Clear to auscultation bilaterally Cardiovascular: No edema, Regular rate/rhythm Gastrointestinal: Soft and benign, Non-distended Musculoskeletal: No clubbing, No contractures Integumentary: No rashes, No cyanosis Neurological: Normal speech Laboratory Data (last 24 hrs) 09/28/20 13:08: Phosphorus 2.4 L 09/28/20 13:08: PT 12.1, INR 1.05 09/28/20 13:08: WBC 7.20, Hgb 11.4 L, Hct 32.3 L, Plt Count 349 09/28/20 13:08: Sodium 119 L*, Potassium 2.4 L*, BUN 12, Creatinine 0.87, Glucose 180 H, Magnesium 2.2, Total Bilirubin 1.0, AST 26, ALT 11 L, Alkaline Phosphatase 36 L, Lipase 257 Imagings Data: EXAM DESCRIPTION: CT - Head C Spine Cap W Con - 09/28/2020 1:23 pm COMPARISON: None. TECHNIQUE: Axial [address] head images were obtained without IV contrast. Axial [address] cervical spine images were obtained with sagittal and coronal reconstruction images reviewed. All CT scans are performed using dose optimization technique as appropriate and may include automated exposure control or mA/KV adjustment according to patient size. FINDINGS: No intracranial hemorrhage, mass, or edema. No mid-line shift or abnormal fluid collection. Mastoid air cells and paranasal sinuses are clear. No skull fracture or acute bony finding. Mild chronic small vessel ischemic changes. Cervical body height and alignment are normal. No disc space narrowing. No fracture or acute bony finding. No paraspinal mass or hematoma. Mild uncovertebral joint hypertrophy is present at the C4-5, C5-6, and C6-7 levels with mild neural foraminal narrowing. No central spinal stenosis. Chest: No aortic aneurysm or dissection. Coronary artery calcifications. No pericardial effusion. Negative for pulmonary embolism. Scattered ground-glass opacities likely represents hypoventilation. No edema or evidence of pneumonia. No suspicious pulmonary nodules are identified. Abdomen/pelvis: No focal liver lesions identified. Gallbladder is unremarkable. The adrenal glands are mildly thickened but no mass. Pancreas is unremarkable. Spleen is unremarkable. No renal masses or hydronephrosis. No suspicious pa ncreatic lesions. No pancreatic duct dilatation. Normal appendix. Moderate stool in the rectum and colon. No bowel obstruction. No fracture identified. IMPRESSION: 1. No acute intracranial abnormality. Mild chronic small vessel ischemic changes. 2. No fracture or traumatic malalignment of the cervical spine. 3. No acute findings in the chest, abdomen, or pelvis. 4. A few incidental findings as noted above. EXAM DESCRIPTION: RAD - Chest Single View - 09/28/2020 2:30 pm CLINICAL HISTORY: COUGH COMPARISON: Portable August 12 TECHNIQUE: AP portable chest image was obtained 09/28/2020 2:30 pm . FINDINGS: No focal mass or consolidation. Interstitial pattern not substantially different from comparison. Hilar regions within normal limits. Heart and vasculature are normal. No measurable pleural effusion and no pneumothorax. No acute bony abnormality seen. No acute aortic findings suspected. IMPRESSION: No acute cardiopulmonary process. EXAM DESCRIPTION: MRI - Brain W/Wo Cont - 09/30/2020 4:29 pm CLINICAL HISTORY: confusion, suspect dementia Headache, drowsiness COMPARISON: MRA Head Wo Cont dated 09/30/2020; Head C Spine Cap W Con dated 09/28/2020; Head Brain Wo Cont dated 09/30/2020 TECHNIQUE: Multi-sequence, multiplanar MR imaging of the brain was performed with contrast. FINDINGS: No intracranial hemorrhage, hydrocephalus, or extra-axial fluid collection.Mild T2 and FLAIR hyperintensity in the periventricular and deep white is likely related to chronic microvascular ischemia. No edema or shift of midline structures. No intracranial mass. DWI is negative for acute CVA. The midline structures are normally formed. Mastoid air cells and paranasal sinuses are clear. Post-contrast images show no abnormal enhancement to suggest tumor or infection. IMPRESSION: Negative for acute CVA or other acute intracranial process. Mild to moderate chronic microvascular ischemic changes. EXAM DESCRIPTION: MRI - MRA Neck W/Wo Cont - 09/30/2020 4:29 pm CLINICAL HISTORY: confusion, suspect dementia Headache, drowsiness COMPARISON: No comparisons FINDINGS: Contrast enhance 2D ltxu-gx-konkcz MR angiography of the neck vessels was performed. Left aortic arch is noted with a bovine configuration, a normal variant. Both subclavian and common carotid arteries are patent bilaterally. No evidence of right-sided internal carotid artery stenosis. A focal moderate stenosis of the proximal left internal carotid artery is seen, estimated at 70- 80% based on NASCET criteria. Antegrade flow is seen in the vertebral arteries. IMPRESSION: Moderate stenosis (70-80% based on NASCET criteria) of the left carotid bulb. 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
[2020-10-02] MEDS ORDERED: DOCUSATE NA 100 MG CAP PO SCH (09:00)
== END 2020-10-01 15:06 | DRG 640 ==
LOC: ER 12:41 → ERHOLD 16:45 → 2ND 18:24
PROVIDERS: ADMIT Family Medicine; ATTEND Family Medicine
DX: E87.6 Hypokalemia (principal); G93.41 Metabolic encephalopathy; I48.20 Chronic atrial fibrillation, unspecified; M62.82 Rhabdomyolysis; E46 Unspecified protein-calorie malnutrition; E87.1 Hypo-osmolality and hyponatremia; G20 Parkinson's disease; I10 Essential (primary) hypertension; E78.5 Hyperlipidemia, unspecified; Z79.01 Long term (current) use of anticoagulants; I77.89 Other specified disorders of arteries and arterioles; K21.9 Gastro-esophageal reflux disease without esophagitis; E89.0 Postprocedural hypothyroidism; G89.29 Other chronic pain; I45.10 Unspecified right bundle-branch block; D63.8 Anemia in other chronic diseases classified elsewhere; Z68.21 Body mass index [BMI] 21.0-21.9, adult; R55 Syncope and collapse; Z20.822 Contact with and (suspected) exposure to COVID-19; E83.51 Hypocalcemia
CPT/HCPCS: 36415; 70450; 70544; 70549; 70553; 71045; 71260; 72125; 74177; 80048; 80053; 80061; 80076; 82550; 82553; 82565; 83690; 83735; 83880; 83930; 84100; 84132; 84145; 84439; 84443; 84484; 85025; 85610; 87040; 93005; 96361; 96365; 96366; 96375; 97112; 97116; 97161; 97530; 99285; A9577; J2405; J3480; J7030; J7040; Q9967; U0003

== ENCOUNTER 2020-09-30 15:30 | Inpatient (IN) | payer OTHER ==
--- NOTE | 2020-09-29 16:30 | R.PREADM ---
PRE-ADMISSION SCREENING FORM SCREENING DATE AND TIME 09/29/2020 15:46 (CDT) ANTICIPATED REHAB ADMISSION DATE 10/01/2020 REFERRING FACILITY Doctor Office REFERRAL DATE AND TIME 09/29/2020 12:34 (CDT) REFERRAL OFFICE PHONE REFERRAL ROOM# [id number] ACUTE ADMIT DATE 09/28/2020 Previous Rehabilitation(s): No. ACUTE STOCK SPECULATOR/DC JEWELRY CUTTER Liliana REFERRING PHYSICIAN DR. ESTELLA HERRERA REHAB FACILITY [facility] CLINICAL LIAISON Santana Lizama PHYSICIAN REVIEWER Dr. Rico Gonsalez M.D. MR# [id number] NAME DEBI GARRETT ADDRESS [address] [facility] PHONE [facility] [id number] DATE OF 1935 AGE 85 SSN# [id number] GENDER female MARITAL STATUS RACE white PREF. LANGUAGE (IF NON-SWISS) Citizen Of [place] ADMIT FROM 02 - [facility] PRE-HOSPITAL LIVING SETTING 01 - Home (private home/apt. board/care, assisted living, [facility], transitional living) HOME TYPE AND DETAILS Type of home: apartment # of levels in the residence: 1 # of steps to enter the residence: 0 # of steps within the residence: 0 Pt. lives alone, [facility] [address] on the bottom floor, Since she has been using a rollator for safety, she has a tub w/ shower and shower chair. Prior to that she was completely indep endent driving etc per daughter. since last week her daughter and other family has been helping her m ore in her apartment. PRE-HOSPITAL LIVING WITH Alone FAMILY SUPPORT Yes PRIMARY FAMILY CONTACT NAME hSantell Hammond PRIMARY FAMILY CONTACT PHONE PRIMARY FAMILY CONTACT RELATIONSHIP Granddaughter IS PRIMARY FAMILY CONTACT AUTH. REP.? no 1ST EMERGENCY CONTACT Shantell Hammond 1ST CONTACT PHONE 1ST CONTACT RELATIONSHIP Granddaughter IS 1ST CONTACT AUTH. REP.? no PHONE 2ND CONTACT ON ADM.? no PATIENT EMPLOYMENT STATUS Retired (for age) PATIENT EMPLOYER No Employer PAYOR INFORMATION: 1ST PAYOR NAME MEDICARE 1ST PAYOR PHONE 1ST PAYOR INJURY/ILLNESS DUE TO ACCIDENT? No ANOTHER [employer] RESPONSIBLE? No PRIMARY REHAB/ACUTE DIAGNOSIS: Hypotension, Hyponatremia ONSET DATE 09/28/2020 REHAB IMPAIRMENT CATEGORY (JUAN JOSE): 20 Miscellaneous (Misc) does NOT meet 60% rule PRIMARY DIAGNOSIS-RELATED SURGERIES: No surgeries related to the primary diagnosis were performed. RISK FOR COMPLICATIONS: - N/A Chronic Pain Parkinsonism AFIB - CAD CAD SUMMARY OF ACUTE HOSPITALIZATION: Pt. is a 85 yo Right-handed white female. On 09/28/2020 she was admitted to [facility] with diagnosis Hypotension, Hyponatremia. Her impairment category is Debility 16 - Debility (16). Pre-morbidly, Pt. was independent/mod-I in Transfers Control, Self-Care, Locomotion, Social Cognition , Sphincter Control, and Communication; and she had good Balance and Safety Awareness. Currently, she has deficits of Transfers Control, Balance, Locomotion, Safety Awareness, and Self-Car e. Pt. is now referred to [facility] for acute in-patient rehabilitation in order to maximize patient's functional independence in activities of daily living, strength, ROM, and mobi lity. Patient has realistic goal of being discharged at assistance level 6-Francia to reside at Home with Romain shaw. PAST MEDICAL HISTORY Gerd HLD HTN Chronic Pain Prudential Nerve Ablation (1 side) AFIB CAD Parkinsonism PAST SURGICAL HISTORY: Carotid Edartcarectomy Thyroidectomy R AKA MEDICATION ALLERGIES: HYDROCODONE ENVIRONMENTAL ALLERGIES: None Known - Substance Allergies None Known - Other Allergies None Known CODE STATUS: Full code WEIGHT/HEIGHT/BMI: WEIGHT 109 lbs HEIGHT 5' 0" BMI 21.3 DIET: - Diet Type Regular - Diet - Solid Texture Regular - Diet - Liquid Texture Regular - Tube Feed N/A REVIEW OF SYSTEMS: - Gen Alert and awake Lying in bed No apparent distress Oriented to: person, time, and place - Vital Signs Vital signs stable, afebrile - CVS RRR VITAL SIGNS Temperature: 96.9 F SBP/DBP: 155/67 Pulse: 55 Resp: 16 Vital signs stable, afebrile MEDICATIONS/TREATMENT: Other- See attached MAR (Medication Administration Record). CURRENT SPHINCTER CONTROL: Pre-hospital bladder status: continent # of bladder accidents in the last 7 days prior to screenin Pre-hospital bowel status: continent # of bowel accidents in the last 7 days prior to screenin CURRENT LOCOMOTION STATUS: distance walked 120 feet DETAILED CURRENT FUNCTIONAL STATUS: - Walking score based on distance walked: 2(50-149ft) QI SCORES: - Self-Care A. Eating 04-Supervision or touching assistance B. Oral hygiene 04-Supervision or touching assistance C. Toileting hygiene 03-Partial/moderate assistance E. Shower/bathe self 03-Partial/moderate assistance F. Upper body dressing 03-Partial/moderate assistance G. Lower body dressing 02-Substantial/maximal assistance H. Putting on/taking off footwear 01-Dependent - Mobility A. Roll left and right 04-Supervision or touching assistance B. Sit to lying 04-Supervision or touching assistance C. Lying to sitting on side of bed 04-Supervision or touching assistance D. Sit to stand 04-Supervision or touching assistance E. Chair/fkg-bx-[id number] transfer 04-Supervision or touching assistance F. Toilet transfer 04-Supervision or touching assistance G. Car transfer 88-Not attempted due to medical condition or safety concerns I. Walk 10 feet 04-Supervision or touching assistance J. Walk 50 feet with two turns 88-Not attempted due to medical condition or safety concerns K. Walk 150 feet 88-Not attempted due to medical condition or safety concerns L. Walking 10 feet on uneven surfaces 88-Not attempted due to medical condition or safety concerns M. 1 step (curb) 88-Not attempted due to medical condition or safety concerns N. 4 steps 88-Not attempted due to medical condition or safety concerns O. 12 steps 88-Not attempted due to medical condition or safety concerns P. Picking up object 88-Not attempted due to medical condition or safety concerns - Bladder and Bowel Bladder continence 0-Always continent Bowel continence 0-Always continent - Endurance Poor - Balance Poor - Safety Awareness Poor CURRENT FUNC. DEFICITS: Self-Care, Mobility, Endurance, Balance, and Safety Awareness CURRENT / PREVIOUS ASSISTIVE DEVICES: Rolling Walker Shower Chair HISTORY OF FALLS. HAS THE PATIENT HAD TWO OR MORE FALLS IN THE PAST YEAR OR ANY FALL WITH INJURY IN T HE PAST YEAR?: Yes PRIOR SURGERY. DID THE PATIENT HAVE MAJOR SURGERY DURING THE 100 DAYS PRIOR TO ADMISSION?: No THERAPY NOTES FROM ACUTE CARE: Attached. SPECIAL NEEDS: - Safety Concerns Skin breakdown precautions needed due to skin breakdown risk PATIENT NEEDS ACTIVE AND ONGOING THERAPEUTIC INTERVENTION OF MULTIPLE THERAPY DISCIPLINES, INCLUDING: - Dietary and Nutrition Adequate Nutrition. Nutritional Education. Nutritional Supplements. PATIENT NEEDS CLOSE MEDICAL SUPERVISION BY A REHABILITATION PHYSICIAN FOR: Coordination of Treatment Team PATIENT REQUIRES 24X7 REHAB NURSING FOR MEDICAL AND FUNCTIONAL MGT. OF THE FOLLOWING DEFICITS: Disease Management Medication Management Patient/Family Education Providing Safe Environment PATIENT REQUIRES INTENSIVE, COORDINATED INTERDISCIPLINARY APPROACH TO REHAB: Arranging Home Equipment/Services Discharge Planning Family Intervention/Training Bobbin Cleaner/Case Management PATIENT REHAB POTENTIAL: Jann GARRETT is able and expected to receive 3 hours of individualized therapy daily on at least 5 of e very 7 days Jann GARRETT's prognosis for significant practical improvement within a reasonable period of time appea rs Good Expected level of measurable improvement will be of a practical value to Jann GARRETT's functional capa city or adaptations to impairments Has a viable Discharge Plan Medically appropriate; condition is sufficiently stable to participate in intensive rehab program DISCHARGE PLAN: - Estimated Length of Stay (days) 13. - Consensus on plan Discharge plan has been discussed with primary caregiver. Patient/Family is in agreement with the quentin n. Primary caregiver is in agreement with the plan. - Patient/Family Goals Return home with assistance. - Planned Living Setting Upon Discharge Home, to live alone. RECOMMENDED CARE LEVEL: IRF RECOMMENDATION DETAILS: Recommended Admission to Comprehensive Rehabilitation Program to Increase Functional [place] SCREENER'S COMPLETENESS CONFIRMATION: - Screening Confirmation The patient data collection on this preadmission screening form is finished PHYSICIANS REVIEW AND ADMISSION DETERMINATION Admit - Based on my review of the Pre-Admission Screening results, in my medical judgment and experie nce, I concur with the findings and recommend admission to [facility], as this patient requires an IRF level of care. SIGNATURE PANEL: Assistant Chief Of Police - [electronically] signed by Sharon Mcgregor, Wrist Hemmer on 09/29/2020 at 16:02 (CD T) Assistant Chief Of Police - [electronically] signed by Marcell Lizama PT on 09/29/2020 at 16:06 (CDT) Physician Reviewer - [electronically] signed by Dr. Rico Gonsalez M.D. on 09/29/2020 at 16:29 (CDT )
--- OUTSIDE RECORDS SUMMARY | 2020-10-01 15:24 | XMS REPORT | Continuity of Care Document ---
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 quantitati on of D2 and D3 fractions is required, the QuestAssureD(TM )25- OH VIT D, (D2,D 3), LC/MS/MS is recommended: or cassia code 61293 (patients >2yrs).See Note 1 Note 1 For additional information, pl ease refer to http://educatio n.Unda. [employer]/ faq/JQC709 (Thi s link is being provided for informational/e duca tional purposes only.) RAC (test code Performing = RAC) Organization Information: Site ID: SAL Name: [facility] Lab Address: [address] [place] [phone] Director: Robi Rodas [place] RestorationismTroponin I [id number] 12:00:00 Test Item Value Reference Range Interpretation Comments Troponin I (test code = 52484-4) 0.389 ng/mL [facility]/volume[facility]2019-09-25 04:50:00 Test Item Value Reference Range Interpretation Comments Sodium Level (test code = 15577-9) 139 mmol/L [facility] or plasma potassium measurement (moles/volume)2019-09-25 04:50:00 Test Item Value Reference Range Interpretation Comments Potassium Level (test code = 4.3 mmol/L 2823-3) [facility] chloride measurement (moles/volume) 2019-09-25 04:50:00 Test Item Value Reference Range Interpretation Comments Chloride Level (test code = 105 mmol/L 5-0) [facility] carbon dioxide measurement (moles/volume)2019-09-25 04:50:00 Test Item Value Reference Range Interpretation Comments Carbon Dioxide Level (test code = 27 mmol/L 2027-9) [facility] or plasma anion [id number] 04:50:00 Test Item Value Reference Range Interpretation Comments Anion Gap (test code = 58663-2) 7.0 mmol/L [facility] or plasma urea nitrogen measurement (mass/volume)2019-09-25 04:50:00 Test Item Value Reference Range Interpretation Comments Blood Urea Nitrogen (test code = 23.0 mg/dL 3094-0) [facility] or plasma creatinine measurement (mass/volume)2019-09-25 04:50:00 Test Item Value Reference Range Interpretation Comments Creatinine (test code = 2160-0) 0.958 mg/dL [facility] [id number] 04:50:00 Test Item Value Reference Range Interpretation Comments Estimat Glomerular Filtration Rate 56 (test code = 94069-2) [facility] or plasma glucose measurement (mass/volume) 2019-09-25 04:50:00 Test Item Value Reference Range Interpretation Comments Glucose Level (test code = 2345-7) 102 mg/dL [facility] or plasma calcium measurement (mass/volume) 2019-09-25 04:50:00 Test Item Value Reference Range Interpretation Comments Calcium Level (test code = 05723-0) 9.5 mg/dL [facility] or plasma creatine kinase MB measurement (mass/volume)2019-09-25 04:50:00 Test Item Value Reference Range Interpretation Comments Creatine Kinase MB (test code = 3.3 ng/mL 59799-4) [facility] or plasma C reactive protein measurement (mass/volume)2019-09-25 04:50:00 Test Item Value Reference Range Interpretation Comments C-Reactive Protein, Quantitative < 0.29 mg/dL (test code = 1988-5) [facility] leukocyte count (number/volume) 2019-09-25 04:50:00 Test Item Value Reference Range Interpretation Comments White Blood Count (test code = 7.7 10*3/uL 6690-2) [facility] erythrocytes automated count (number/volume) 2019-09-25 04:50:00 Test Item Value Reference Range Interpretation Comments Red Blood Count (test code = 4.20 10*6/uL 789-8) [facility] ([facility]/volume) 2019-09-25 04:50:00 Test Item Value Reference Range Interpretation Comments Hemoglobin (test code = 718-7) 12.3 g/dL [facility] CenterAutom[facility] blood hematocrit (volume fraction) 2019-09-25 04:50:00 Test Item Value Reference Range Interpretation Comments Hematocrit (test code = 4544-3) 38.4 % [facility] CenterAutom[facility] erythrocyte mean corpuscular volume (MCV) phoophfkmfr3955-45-68 04:50:00 Test Item Value Reference Range Interpretation Comments Mean Corpuscular Volume (test code = 91.4 fL 787-2) [facility] Center[facility] erythrocyte mean corpuscular hemoglobin (mass per erythrocyte)2019-09-25 04:50:00 Test Item Value Reference Range Interpretation Comments Mean Corpuscular Hemoglobin (test 29.3 pg code = 785-6) [facility] CenterAutom[facility] erythrocyte mean corpuscular hemoglobin concentration (MCHC) measurement ([id number] 04:50:00 Test Item Value Reference Range Interpretation Comments Mean Corpuscular Hemoglobin Concent 32.0 % (test code = 786-4) [facility] CenterAutom[facility] erythrocyte distribution width ratio 2019-09-25 04:50:00 Test Item Value Reference Range Interpretation Comments Red Cell Distribution Width (test code 13.0 % = 788-0) [facility] CenterAutom[facility] blood platelet count (count/volume) 2019-09-25 04:50:00 Test Item Value Reference Range Interpretation Comments Platelet Count (test code = 287 10*3/uL 777-3) [facility] CenterAutom[facility] blood platelet mean volume measurement 2019-09-25 04:50:00 Test Item Value Reference Range Interpretation Comments Mean Platelet Volume (test code = 10.2 fL 20675-0) [facility] CenterAutom[facility] blood neutrophil count as percentage of total opcozfsezb0202-12-45 04:50:00 Test Item Value Reference Range Interpretation Comments Neutrophils (%) (Auto) (test code = 67.2 % 770-8) [facility] immature granulocyte count as percentage of total rvzheamdce8922-11-85 04:50:00 Test Item Value Reference Range Interpretation Comments Immature Granulocyte % (Auto) (test 0.50 % code = 81759-4) [facility] lymphocyte count as percentage of total znkwbfvisf7349-85-82 04:50:00 Test Item Value Reference Range Interpretation Comments Lymphocytes (%) (Auto) (test code = 20.4 % 736-9) [facility] count as percentage of total shdhdygzcq2493-40-62 04:50:00 Test Item Value Reference Range Interpretation Comments Monocytes (%) (Auto) (test code = 8.0 % 5905-5) [facility] eosinophil count as percentage of total hluyqaqeir0051-61-67 04:50:00 Test Item Value Reference Range Interpretation Comments Eosinophils (%) (Auto) (test code = 3.1 % 713-8) [facility] basophil count as percentage of total kmfdokexwi1668-40-55 04:50:00 Test Item Value Reference Range Interpretation Comments Basophils (%) (Auto) (test code = 0.8 % 706-2) [facility] nucleated erythrocyte count as percentage of total wrdojllpmz3823-90-57 04:50:00 Test Item Value Reference Range Interpretation Comments Nucleated Red Blood Cells % (test code 0.0 % = 00120-5) [facility] neutrophil count (number/volume) 2019-09-25 04:50:00 Test Item Value Reference Range Interpretation Comments Neutrophils # (Auto) (test code = 5.2 10*3/uL 751-8) [facility] Center[facility] blood immature granulocyte count as percentage of total wseurfbvju6842-26-64 04:50:00 Test Item Value Reference Range Interpretation Comments Immature Granulocyte # (Auto) (test 0.0400 code = 40048-1) [facility] CenterAutom[facility] blood lymphocyte count (number/volume) 2019-09-25 04:50:00 Test Item Value Reference Range Interpretation Comments Lymphocytes # (Auto) (test code = 1.6 10*3/uL 731-0) [facility] monocytes automated count (number/volume) 2019-09-25 04:50:00 Test Item Value Reference Range Interpretation Comments Monocytes # (Auto) (test code = 0.6 10*3/uL 742-7) [facility] CenterAutom[facility] blood eosinophil qhdkm9585-80-48 04:50:00 Test Item Value Reference Range Interpretation Comments Eosinophils # (Auto) (test code = 0.2 10*3/uL 711-2) [facility] basophil count (number/volume) 2019-09-25 04:50:00 Test Item Value Reference Range Interpretation Comments Basophils # (Auto) (test code = 0.1 10*3/uL 704-7) [facility] leukocyte count corrected for nucleated ukncvhnkskgd6125-81-36 04:50:00 Test Item Value Reference Range Interpretation Comments Nucleated Red Blood Cells # (test code 0.000 = 36562-2) [facility] erythrocyte sedimentation rate (ESR) measurement by photometricmethod (length/h0013-15-70 04:50:00 Test Item Value Reference Range Interpretation Comments Erythrocyte Sedimentation Rate (test 7 mm/h code = 75623-2) [facility] or plasma magnesium measurement (mass/volume) 2019-09-24 22:42:00 Test Item Value Reference Range Interpretation Comments Magnesium Level (test code = 2.3 mg/dL 84336-4) [facility] or plasma total bilirubin measurement (mass/volume)2019-09-24 22:42:00 Test Item Value Reference Range Interpretation Comments Total Bilirubin (test code = 0.4 mg/dL 1975-2) [facility] or plasma aspartate aminotransferase measurement (enzymatic activity/volume)2019-09-24 22:42:00 Test Item Value Reference Range Interpretation Comments Aspartate Amino Transf (AST/SGOT) 27 U/L (test code = 1920-8) [facility] plasma alanine aminotransferase measurement (enzymatic activity/volume)2019-09-24 22:42:00 Test Item Value Reference Range Interpretation Comments Alanine Aminotransferase (ALT/SGPT) 29 U/L (test code = 1742-6) [facility] or plasma protein measurement (mass/volume) 2019-09-24 22:42:00 Test Item Value Reference Range Interpretation Comments Total Protein (test code = 2885-2) 8.1 g/dL [facility] or plasma albumin measurement (mass/volume) 2019-09-24 22:42:00 Test Item Value Reference Range Interpretation Comments Albumin (test code = 1751-7) 4.3 g/dL [facility] or plasma alkaline phosphatase measurement (enzymatic activity/volume)2019-09-24 22:42:00 Test Item Value Reference Range Interpretation Comments Alkaline Phosphatase (test code = 53 U/L 6768-6) [facility] CenterLactate ser/azct1035-44-58 22:42:00 Test Item Value Reference Range Interpretation Comments Lactic Acid Level (test code = 1.0 mmol/L 2524-7) [facility] or plasma creatine kinase measurement (enzymatic activity/volume)2019-09-24 22:42:00 Test Item Value Reference Range Interpretation Comments Total Creatine Kinase (test code = 413 U/L 2157-6) [facility] or plasma total creatine kinase/creatine kinase MB isoenzyme activity txcqt4194-06-53 22:42:00 Test Item Value Reference Range Interpretation Comments Creatine Kinase MB Relative Index (test 0.5 % code = 2158-4) [facility] CenterTroponin I llvyuntvq9666-22-24 22:42:00 Test Item Value Reference Range Interpretation Comments Troponin I (test code = 38995-0) 0.059 ng/mL [facility] or plasma brain natriuretic peptide (BNP) scuqvszmakh9748-29-37 22:42:00 Test Item Value Reference Range Interpretation Comments B-Type Natriuretic Peptide (test 40 pg/mL code = 96083-3) [facility] or plasma thyrotropin measurement by detection limit <=0.005 miu/l (units/mvimc0520-02-23 22:42:00 Test Item Value Reference Range Interpretation Comments Thyroid Stimulating Hormone 7.670 u[iU]/mL (TSH) (test code = 91121-6) [facility] plasma procalcitonin measurement (mass/volume)2019-09-24 22:42:00 Test Item Value Reference Range Interpretation Comments Procalcitonin (test code = < 0.05 ng/mL 46473-5) [facility] CenterWhole blood prothrombin cxbc3906-87-81 22:42:00 Test Item Value Reference Range Interpretation Comments Prothrombin Time (test code = 5964-2) 11.4 s [facility] CenterINR in Platelet poor plasma by Coagulation assay 2019-09-24 22:42:00 Test Item Value Reference Range Interpretation Comments Prothromb Time International Ratio 1.0 {INR} (test code = 6301-6) [facility] CenterPartial thromboplastin time (PTT) in platelet poor txwifh4706-50-15 22:42:00 Test Item Value Reference Range Interpretation Comments Activated Partial Thromboplast Time 31.7 s (test code = 88617-0) [facility] CenterFibrin D-dimer FEU [id number] 22:42:00 Test Item Value Reference Range Interpretation Comments D-Dimer (test code = 43426-5) 262 ng/mL{FEU} [facility] ketones detection by automated test strip 2019-09-24 22:33:00 Test Item Value Reference Range Interpretation Comments Urine Ketones (test code = Negative mg/dL 26073-9) [facility] erythrocytes detection by automated method 2019-09-24 22:33:00 Test Item Value Reference Range Interpretation Comments Urine Occult Blood (test code = Negative 60513-3) [facility] CenterAutomated urine nitrite kejyuzatfbk2464-72-85 22:33:00 Test Item Value Reference Range Interpretation Comments Urine Nitrite (test code = 19427-4) Negative [facility] total bilirubin detection by automated test upngt6148-38-49 22:33:00 Test Item Value Reference Range Interpretation Comments Urine Bilirubin (test code = Negative 62235-0) [facility] CenterAutomated urine urobilinogen qcziliyoqxg2890-52-13 22:33:00 Test Item Value Reference Range Interpretation Comments Urine Urobilinogen (test code = Normal mg/dL 54945449) [facility] leukocytes detection by automated method 2019-09-24 22:33:00 Test Item Value Reference Range Interpretation Comments Urine Leukocyte Esterase (test 250 {Marianna}/uL code = 14783-5) [facility] erythrocytes count in urine sediment (number/area)2019-09-24 22:33:00 Test Item Value Reference Range Interpretation Comments Urine RBC (test code = 97504-8) 0-2 /[HPF] [facility] leukocytes count in urine sediment (number/area)2019-09-24 22:33:00 Test Item Value Reference Range Interpretation Comments Urine WBC (test code = 50714-3) 10-20 /[HPF] [facility] squamous epithelial cells count in urine sediment (number/area)2019-09-24 22:33:00 Test Item Value Reference Range Interpretation Comments Urine Squamous Epithelial Cells Rare /[LPF] (test code = 14826-8) [facility] urine sediment crystal count (number/area)2019-09-24 22:33:00 Test Item Value Reference Range Interpretation Comments Urine Other Crystals (test +/- Rare /[LPF] code = 37009-9) [facility] bacteria count in urine sediment (number/area)2019-09-24 22:33:00 Test Item Value Reference Range Interpretation Comments Urine Bacteria (test code = None /[HPF] 47405-0) [facility] mucus count in urine sediment (number/area)2019-09-24 22:33:00 Test Item Value Reference Range Interpretation Comments Urine Mucus (test code = 99794-8) +/- /[LPF] [facility] CenterAutom[facility] urine yeast count (number/area)2019-09-24 22:33:00 Test Item Value Reference Range Interpretation Comments Urine Yeast (Budding) (test code Rare /[HPF] = 09406-0) [facility] comment [id number] 22:33:00 Test Item Value Reference Range Interpretation Comments Urine Culture Indicated Yes, Criteria Met (test code = 8264-4) [facility] CenterBacterial urine rzsonai3865-20-40 22:33:00 Test Item Value Reference Range Interpretation Comments Urine Culture (test No growth in 18-24 code = 630-4) hours [facility] CenterAutomated urine color cvrfsazujtqoa1555-77-19 22:33:00 Test Item Value Reference Range Interpretation Comments Urine Color (test code = 65868-4) Yellow [facility] CenterClarity in Urine by Refractometry automated 2019-09-24 22:33:00 Test Item Value Reference Range Interpretation Comments Urine Appearance (test code = 55965-8) Clear [facility] pH measurement by test vwznk9362-65-22 22:33:00 Test Item Value Reference Range Interpretation Comments Urine pH (test code = 5803-2) 7.5 [pH] [facility] urine specific gravity by refractometry 2019-09-24 22:33:00 Test Item Value Reference Range Interpretation Comments Urine Specific [place] (test code = 1.009 94872-0) [facility] protein gcenmihmkbw3523-20-81 22:33:00 Test Item Value Reference Range Interpretation Comments Urine Protein (test code = Negative mg/dL 46418973) [facility] urine glucose ohqmirazl1667-66-22 22:33:00 Test Item Value Reference Range Interpretation Comments Urine Glucose (UA) (test code Negative mg/dL = 87279-1) [facility] CenterBASIC METABOLIC [id number] 02:06:00 Test Item Value Reference Range Interpretation [...] CALCIUM (test code = MG/DL 8.7-9.7 CA) [id number] 02:06:00 Test Item Value Reference Range Interpretation Comments MAGNESIUM (test code = MAG) MG/DL 1.6-2.3 BASIC METABOLIC [id number] 02:06:00 Test Item Value Reference Range Interpretation [...] CALCIUM (test code = MG/DL 8.7-9.7 CA) [id number] 02:06:00 Test Item Value Reference Range Interpretation Comments MAGNESIUM (test code = MAG) MG/DL 1.6-2.3 BASIC METABOLIC [id number] 02:06:00 Test Item Value Reference Range Interpretation [...] code = 10.3 MG/DL 8.4-10.2 H CA) [id number] 02:06:00 Test Item Value Reference Range Interpretation Comments MAGNESIUM (test code = MAG) MG/DL 1.6-2.3 BASIC METABOLIC [id number] 02:06:00 Test Item Value Reference Range Interpretation [...] code = 10.3 MG/DL 8.4-10.2 H CA) [id number] 02:06:00 Test Item Value Reference Range Interpretation Comments MAGNESIUM (test code = MAG) 1.7 MG/DL 1.6-2.3 BASIC METABOLIC [id number] 02:03:00 Test Item Value Reference Range Interpretation [...] CALCIUM (test code = CA) MG/DL 8.7-9.7 [id number] 02:03:00 Test Item Value Reference Range Interpretation Comments MAGNESIUM (test code = MAG) MG/DL 1.6-2.3 CBC W/AUTO [id number] 01:51:00 Test Item Value Reference Range Interpretation [...] K/mm3 0.0-0.1 N NRBC#) - XR CHEST [id number] 11:06:00 Patient Name: DEBI GARRETT Unit No: [id number] EXAMS: CPT CODE: [id number] XR CHEST 1V [id number] Site ID: [id number] HISTORY: Pneumothorax COMPARISON: Chest [...] Willie Santana (RT) Transcrpt Date/Tm/Trnsp: 08/10/2019 (1106) [email or web address] Orig Print D/T: S: 08/10/2019 (1110) [facility] NAME: DEBI GARRETT [address] [address] [place] PHYS: [place] [address] : 1935 AGE: 84 SEX: F LOC: [id number].SI05 A PHONE #: [phone] EXAM DATE: 08/10/2019 STATUS: ADM IN FAX #: [phone] RADIOLOGY NO: PAGE 1 Signed ReportBASIC METABOLIC [id number] 05:07:00 Test Item Value Reference Range Interpretation [...] code = 10.6 MG/DL 8.4-10.2 H CA) [id number] 05:07:00 Test Item Value Reference Range Interpretation Comments PHOSPHOROUS (test code = PHOS) 3.3 MG/DL 2.5-4.5 N [id number] 05:07:00 Test Item Value Reference Range Interpretation Comments MAGNESIUM (test code = MAG) 2.2 MG/DL 1.6-2.3 BASIC METABOLIC [id number] 05:04:00 Test Item Value Reference Range Interpretation [...] CALCIUM (test code = MG/DL 8.7-9.7 CA) [id number] 05:04:00 Test Item Value Reference Range Interpretation Comments PHOSPHOROUS (test code = PHOS) MG/DL 2.5-4.5 [id number] 05:04:00 Test Item Value Reference Range Interpretation Comments MAGNESIUM (test code = MAG) MG/DL 1.6-2.3 BASIC METABOLIC [id number] 05:01:00 Test Item Value Reference Range Interpretation [...] CALCIUM (test code = CA) MG/DL 8.7-9.7 [id number] 05:01:00 Test Item Value Reference Range Interpretation Comments PHOSPHOROUS (test code = PHOS) MG/DL 2.5-4.5 [id number] 05:01:00 Test Item Value Reference Range Interpretation Comments MAGNESIUM (test code = MAG) MG/DL 1.6-2.3 CBC W/AUTO [id number] 04:48:00 Test Item Value Reference Range Interpretation [...] 0.00 K/mm3 0.0-0.1 N NRBC#) BASIC METABOLIC [id number] 23:31:00 Test Item Value Reference Range Interpretation [...] code = 10.1 MG/DL 8.4-10.2 N CA) [id number] 23:31:00 Test Item Value Reference Range Interpretation Comments MAGNESIUM (test code = MAG) 1.8 MG/DL 1.6-2.3 N BASIC METABOLIC [id number] 23:28:00 Test Item Value Reference Range Interpretation [...] CALCIUM (test code = MG/DL 8.7-9.7 CA) [id number] 23:28:00 Test Item Value Reference Range Interpretation Comments MAGNESIUM (test code = MAG) MG/DL 1.6-2.3 BASIC METABOLIC [id number] 23:25:00 Test Item Value Reference Range Interpretation [...] CALCIUM (test code = CA) MG/DL 8.7-9.7 [id number] 23:25:00 Test Item Value Reference Range Interpretation Comments MAGNESIUM (test code = MAG) MG/DL 1.6-2.3 BASIC METABOLIC [id number] 22:21:00 Test Item Value Reference Range Interpretation [...] code = 9.3 MG/DL 8.4-10.2 N CA) [id number] 22:21:00 Test Item Value Reference Range Interpretation Comments MAGNESIUM (test code = MAG) 1.6 MG/DL 1.6-2.3 N BASIC METABOLIC [id number] 21:36:00 Test Item Value Reference Range Interpretation [...] code = CA) 9.3 MG/DL 8.4-10.2 N [id number] 21:36:00 Test Item Value Reference Range Interpretation Comments MAGNESIUM (test code = MAG) 1.6 MG/DL 1.6-2.3 N BASIC METABOLIC [id number] 21:35:00 Test Item Value Reference Range Interpretation [...] CALCIUM (test code = CA) MG/DL 8.7-9.7 [id number] 21:35:00 Test Item Value Reference Range Interpretation Comments MAGNESIUM (test code = MAG) MG/DL 1.6-2.3 CBC W/AUTO [id number] 21:25:00 Test Item Value Reference Range Interpretation [...] 0.0-0.1 N NRBC#) - MRI BRAIN W/O [id number] 11:43:00 Patient Name: DEBI GARRETT Unit No: [id number] EXAMS: CPT CODE: [id number] MRI BRAIN W/O CONTRAST [id number] CLINICAL INFORMATION: Ataxia. Right internal carotid artery [...] PritiAGV Orig Print D/T: S: 08/09/2019 (1146) [facility] NAME: DEBI GARRETT [address] [place] [address] PHYS: [place] [address] : 1935 AGE: 84 SEX: F LOC: Z.SI05 A PHONE #: [phone] EXAM DATE: 08/09/2019 STATUS: ADM IN FAX #: [phone] RADIOLOGY NO: PAGE 1 Signed ReportURINALYSIS [id number] 22:47:00 Test Item Value Reference Range Interpretation [...] UACULT) Criteria SOURCE OF URINE: STRAIGHT CATHETERURINALYSIS [id number] 22:45:00 Test Item Value Reference Range Interpretation [...] UACULT) SOURCE OF URINE: STRAIGHT CATHETERBASIC METABOLIC [id number] 13:12:00 Test Item Value Reference Range Interpretation [...] code = 9.8 MG/DL 8.4-10.2 N CA) [id number] 13:12:00 Test Item Value Reference Range Interpretation Comments PHOSPHOROUS (test code = PHOS) 2.6 MG/DL 2.5-4.5 N [id number] 13:12:00 Test Item Value Reference Range Interpretation Comments MAGNESIUM (test code = MAG) 2.3 MG/DL 1.6-2.3 N T3,T4 [id number] 13:12:00 Test Item Value Reference Range Interpretation Comments T3 UPTAKE (test code = T3UP) 33.3 % UP 23.5-40.5 N T4 (THYROXINE) (test code = T4) 13.10 UG/DL 5.53-11.0 H T7 (FREE THYROXINE INDEX) (test 4.4 1.2-4.3 H code = T7) THYROID STIMULATING [id number] 13:12:00 Test Item Value Reference Range Interpretation Comments THYROID STIMULATING 3.590 MIU/L 0.465-4.68 N Please b e aware that HORMONE (test code = bias re sults for TSH TSH) may occur forpa tient who are taking Biotin suppleme nts. T4 [id number] 12:43:00 Test Item Value Reference Range Interpretation Comments T4 FREE (test code = T4F) 2.1 NG/DL 0.78-2.19 N BASIC METABOLIC [id number] 12:41:00 Test Item Value Reference Range Interpretation [...] code = 9.8 MG/DL 8.4-10.2 N CA) [id number] 12:41:00 Test Item Value Reference Range Interpretation Comments PHOSPHOROUS (test code = PHOS) 2.6 MG/DL 2.5-4.5 N [id number] 12:41:00 Test Item Value Reference Range Interpretation Comments MAGNESIUM (test code = MAG) 2.3 MG/DL 1.6-2.3 N T3,T4 [id number] 12:41:00 Test Item Value Reference Range Interpretation Comments T3 UPTAKE (test code = T3UP) 33.3 % UP 23.5-40.5 N T4 (THYROXINE) (test code = T4) 13.10 UG/DL 5.53-11.0 H T7 (FREE THYROXINE INDEX) (test 4.4 1.2-4.3 H code = T7) THYROID STIMULATING [id number] 12:41:00 Test Item Value Reference Range Interpretation Comments THYROID STIMULATING HORMONE (test code MIU/L 0.465-4.68 = TSH) CBC W/AUTO [id number] 12:39:00 Test Item Value Reference Range Interpretation [...] 0.00 K/mm3 0.0-0.1 N NRBC#) BASIC METABOLIC [id number] 12:26:00 Test Item Value Reference Range Interpretation [...] code = 9.8 MG/DL 8.4-10.2 N CA) [id number] 12:26:00 Test Item Value Reference Range Interpretation Comments PHOSPHOROUS (test code = PHOS) 2.6 MG/DL 2.5-4.5 N [id number] 12:26:00 Test Item Value Reference Range Interpretation Comments MAGNESIUM (test code = MAG) 2.3 MG/DL 1.6-2.3 N T3,T4 [id number] 12:26:00 Test Item Value Reference Range Interpretation Comments T3 UPTAKE (test code = T3UP) % UP 23.5-40.5 T4 (THYROXINE) (test code = T4) UG/DL 5.53-11.0 T7 (FREE THYROXINE INDEX) (test code = 1.2-4.3 T7) THYROID STIMULATING [id number] 12:26:00 Test Item Value Reference Range Interpretation Comments THYROID STIMULATING HORMONE (test code MIU/L 0.465-4.68 = TSH) BASIC METABOLIC [id number] 12:25:00 Test Item Value Reference Range Interpretation [...] CALCIUM (test code = MG/DL 8.7-9.7 CA) [id number] 12:25:00 Test Item Value Reference Range Interpretation Comments PHOSPHOROUS (test code = PHOS) MG/DL 2.5-4.5 [id number] 12:25:00 Test Item Value Reference Range Interpretation Comments MAGNESIUM (test code = MAG) MG/DL 1.6-2.3 T3,T4 [id number] 12:25:00 Test Item Value Reference Range Interpretation Comments T3 UPTAKE (test code = T3UP) % UP 23.5-40.5 T4 (THYROXINE) (test code = T4) UG/DL 5.53-11.0 T7 (FREE THYROXINE INDEX) (test code = 1.2-4.3 T7) THYROID STIMULATING [id number] 12:25:00 Test Item Value Reference Range Interpretation Comments THYROID STIMULATING HORMONE (test code MIU/L 0.465-4.68 = TSH) BASIC METABOLIC [id number] 12:25:00 Test Item Value Reference Range Interpretation [...] CALCIUM (test code = MG/DL 8.7-9.7 CA) [id number] 12:25:00 Test Item Value Reference Range Interpretation Comments PHOSPHOROUS (test code = PHOS) MG/DL 2.5-4.5 [id number] 12:25:00 Test Item Value Reference Range Interpretation Comments MAGNESIUM (test code = MAG) MG/DL 1.6-2.3 T3,T4 [id number] 12:25:00 Test Item Value Reference Range Interpretation Comments T3 UPTAKE (test code = T3UP) % UP 23.5-40.5 T4 (THYROXINE) (test code = T4) UG/DL 5.53-11.0 T7 (FREE THYROXINE INDEX) (test code = 1.2-4.3 T7) THYROID STIMULATING [id number] 12:25:00 Test Item Value Reference Range Interpretation Comments THYROID STIMULATING HORMONE (test code MIU/L 0.465-4.68 = TSH) BASIC METABOLIC [id number] 12:25:00 Test Item Value Reference Range Interpretation [...] CALCIUM (test code = MG/DL 8.7-9.7 CA) [id number] 12:25:00 Test Item Value Reference Range Interpretation Comments PHOSPHOROUS (test code = PHOS) MG/DL 2.5-4.5 [id number] 12:25:00 Test Item Value Reference Range Interpretation Comments MAGNESIUM (test code = MAG) MG/DL 1.6-2.3 T3,T4 [id number] 12:25:00 Test Item Value Reference Range Interpretation Comments T3 UPTAKE (test code = T3UP) % UP 23.5-40.5 T4 (THYROXINE) (test code = T4) UG/DL 5.53-11.0 T7 (FREE THYROXINE INDEX) (test code = 1.2-4.3 T7) THYROID STIMULATING [id number] 12:25:00 Test Item Value Reference Range Interpretation Comments THYROID STIMULATING HORMONE (test code MIU/L 0.465-4.68 = TSH) BASIC METABOLIC [id number] 12:23:00 Test Item Value Reference Range Interpretation [...] CALCIUM (test code = CA) MG/DL 8.7-9.7 [id number] 12:23:00 Test Item Value Reference Range Interpretation Comments PHOSPHOROUS (test code = PHOS) MG/DL 2.5-4.5 [id number] 12:23:00 Test Item Value Reference Range Interpretation Comments MAGNESIUM (test code = MAG) MG/DL 1.6-2.3 T3,T4 [id number] 12:23:00 Test Item Value Reference Range Interpretation Comments T3 UPTAKE (test code = T3UP) % UP 23.5-40.5 T4 (THYROXINE) (test code = T4) UG/DL 5.53-11.0 T7 (FREE THYROXINE INDEX) (test code = 1.2-4.3 T7) THYROID STIMULATING [id number] 12:23:00 Test Item Value Reference Range Interpretation Comments THYROID STIMULATING HORMONE (test code MIU/L 0.465-4.68 = TSH) BASIC METABOLIC [id number] 12:22:00 Test Item Value Reference Range Interpretation [...] CALCIUM (test code = CA) MG/DL 8.7-9.7 [id number] 12:22:00 Test Item Value Reference Range Interpretation Comments PHOSPHOROUS (test code = PHOS) MG/DL 2.5-4.5 [id number] 12:22:00 Test Item Value Reference Range Interpretation Comments MAGNESIUM (test code = MAG) MG/DL 1.6-2.3 T3,T4 [id number] 12:22:00 Test Item Value Reference Range Interpretation Comments T3 UPTAKE (test code = T3UP) % UP 23.5-40.5 T4 (THYROXINE) (test code = T4) UG/DL 5.53-11.0 T7 (FREE THYROXINE INDEX) (test code = 1.2-4.3 T7) THYROID STIMULATING [id number] 12:22:00 Test Item Value Reference Range Interpretation Comments THYROID STIMULATING HORMONE (test code MIU/L 0.465-4.68 = TSH) - XR HIP W/PEL UNI 2+V [id number] 11:43:00 Patient Name: DEBI GARRETT Unit No: [id number] EXAMS: CPT CODE: [id number] XR HIP W/PEL UNI 2+[place] [address] EXAM: - XR HIP W/PEL UNI 2+V [...] Kathrin Guevara MD CC: Poli Aaron;Jana Acosta CONCIERGE RECEPTIONIST Technologist: RT Ludivina (R) Transcrpt Date/Tm/Trnsp: 08/08/2019 (1143) [email or web address].[email or web address] Orig Print D/T: S: 08/08/2019 (1147) [facility] NAME: DEBI GARRETT [address] PHYS: DIPIKA [place] [address] : 1935 AGE: 84 SEX: F LOC: Z.SI05 A PHONE #: [phone] EXAM DATE: 08/08/2019 STATUS: ADM IN FAX #:[phone] RADIOLOGY NO: PAGE 1 Signed Report- CT HEAD/BRAIN W/O [id number] 11:40:00 Patient Name: DEBI GARRETT Unit No: [id number] EXAMS: CPT CODE: [id number] CT HEAD/BRAIN W/O CONT 35284 EXAMINATION: - CT HEAD/BRAIN W/O CONT. LOCATION: [...] Ever Finney CC: Poli Aaron; Jana Acosta CONCIERGE RECEPTIONIST Technologist: Filipe Perez, RT(R) CTDI: DLP: Trnscrpt: 08/08/2019 (1140) [email or web address] [facility] NAME: DEBI GARRETT[address] PHYS: [place] [address] : 1935 AGE: 84 SEX: F LOC: ZNelySI05 A PHONE #: [phone] EXAM DATE: 08/08/2019 STATUS: ADM IN FAX #: [phone] RAD #: D/C DT PAGE 1 Signed Report PatientName: DEBI GARRETT Unit No: [id number] EXAMS: CPT CODE: [id number] CT HEAD/BRAIN W/O CONT 95619 <Continued> Orig Print D/T: S: 08/08/2019 (8153) [facility] NAME: DEBI GARRETT[address] PHYS: [place] [address] : 1935 AGE: 84 SEX: F LOC: Z.SI05 A PHONE #: [phone] EXAM DATE: 08/08/2019 STATUS: ADM IN FAX #: [phone] RAD #: D/C DT PAGE 2 Signed Report- XR CHEST [id number] 08:51:00 Patient Name: DEBI GARRETT Unit No: [id number] EXAMS: CPT CODE: [id number] XR CHEST 1V 29814 EXAM: - XR CHEST 1V Location code:B2 [...] Guevara MD CC: Poli Aaron; Jana Acosta CONCIERGE RECEPTIONIST Technologist: RT Sami(R) Transcrpt Date/Tm/Trnsp: 08/08/2019 (0851) Leonel.[email or web address] Orig Print D/T: S: 08/08/2019 (0854) [facility] NAME: DEBI GARRETT [address] PHYS: DUSTY.Ric [place] [address] : 1935 AGE: 84 SEX: F LOC: Z.SI05 A PHONE #: [phone] EXAM DATE: 08/08/2019 STATUS: ADM IN FAX #: [phone] RADIOLOGY NO: PAGE 1 Signed [id number] 12:46:00 RUN DATE: 08/07/19 [facility] PAGE 1 RUN TIME: 1246 Specimen Inquiry RUN USER: INTERFACE PATIENT: DEBI GARRETT LOC: MYLES U #: [id number] AGE/SX: 84/F ROOM: [facility] RE08/06/19REG DR: Robi Schroeder MD : 37 BED: A DIS: STATUS: ADM IN TLOC: SPEC #: [id number] RECD: 08/06/19 STATUS: DOV REQ #: [id number] KELLE: 08/06/[address] [facility] [address]: Robi Schroeder MD ENTERED: 08/06/19 SP TYPE: ARTERY, PL OTHR DR: Self Referred Mirella Francis MD, Patricia Q MD Pepper, Gregory S MDORDERED: DECAL, SURG PATH LVL3, SURG PATH LVL 4 CODES: [id number] - PLAQUE, NOS H75020 - ARTERY, NOS S19351 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 [address] [place] [address] [place] [address] [place] [address] ICD CODES: 440 - PROCEDURES: DECAL (08/06/19) SURG PATH LVL 3 (08/06/19) SURG PATH LVL 4 (08/06/19) TISSUES: A. ARTERY, NOS - RT CAROTID PLAQUE B. LYMPH NODE, NOS - RT CERVICAL LYMPH NODE CONTINUED ON NEXT PAGE RUN DATE: 08/07/19 [facility] - LAB PAGE 2 RUN TIME: 1246 Specimen Inquiry RUN USER: INTERFACE SPEC #: [id number] PATIENT: DEBI GARRETT ENDER #[id number] (Continued) CLINICAL HISTORY S/P RIGHT CEA CPT CODES CPT CODE(S): 72318 , 41539 , 31453 , , , , FINAL DIAGNOSIS A. [...] atypical features. /chidi- Signed SIGNATURE ON FILE SantiagoBeltranmiguel a 08/07/19 1246 END OF REPORT - XR CHEST [id number] 10:56:00 Patient Name: DEBI GARRETT Unit No: [id number] EXAMS: CPT CODE: [id number] XR CHEST 1V 96969 EXAMINATION: - XR CHEST 1V. LOCATION: B2. [...] [email or web address] Orig Print D/T: S: 08/07/2019 (1100) [facility] NAME: DEBI GARRETT[address] PHYS: [place] [address] : 1935 AGE: 84 SEX: F LOC: Z.SI01 A PHONE #: [phone] EXAM DATE: 08/07/2019 STATUS: ADM IN FAX #: [phone] RADIOLOGY NO: PAGE 1 Signed ReportBASIC METABOLIC [...] CA) CBN DRAW LEFT TUBES FOR NURSE [id number] 06:56:00 Test Item Value Reference Range Interpretation Comments MAGNESIUM (test code = MAG) 1.8 MG/DL 1.6-2.3 N CBN DRAW LEFT TUBES FOR NURSE ROSIEBASIC METABOLIC [id number] 06:55:00 Test Item Value Reference Range Interpretation [...] CA) CBN DRAW LEFT TUBES FOR NURSE [id number] 06:55:00 Test Item Value Reference Range Interpretation Comments MAGNESIUM (test code = MAG) MG/DL 1.6-2.3 CBN DRAW LEFT TUBES FOR NURSE ROSIEBASIC METABOLIC [id number] 06:53:00 Test Item Value Reference Range Interpretation [...] 8.7-9.7 CBN DRAW LEFT TUBES FOR NURSE [id number] 06:53:00 Test Item Value Reference Range Interpretation Comments MAGNESIUM (test code = MAG) MG/DL 1.6-2.3 CBN DRAW LEFT TUBES FOR NURSE ROSIECBC W/AUTO [id number] 06:42:00 Test Item Value Reference Range Interpretation [...] DRAW LEFT TUBES FOR NURSE ROSIEBASIC METABOLIC [id number] 13:33:00 Test Item Value Reference Range Interpretation [...] code = 10.0 MG/DL 8.4-10.2 N CA) [id number] 13:33:00 Test Item Value Reference Range Interpretation Comments MAGNESIUM (test code = MAG) 1.8 MG/DL 1.6-2.3 N BASIC METABOLIC [id number] 13:32:00 Test Item Value Reference Range Interpretation [...] CALCIUM (test code = MG/DL 8.7-9.7 CA) [id number] 13:32:00 Test Item Value Reference Range Interpretation Comments MAGNESIUM (test code = MAG) MG/DL 1.6-2.3 BASIC METABOLIC [id number] 13:30:00 Test Item Value Reference Range Interpretation [...] CALCIUM (test code = CA) MG/DL 8.7-9.7 [id number] 13:30:00 Test Item Value Reference Range Interpretation Comments MAGNESIUM (test code = MAG) MG/DL 1.6-2.3 BASIC METABOLIC [id number] 13:29:00 Test Item Value Reference Range Interpretation [...] CALCIUM (test code = CA) MG/DL 8.7-9.7 [id number] 13:29:00 Test Item Value Reference Range Interpretation Comments MAGNESIUM (test code = MAG) MG/DL 1.6-2.3 CBC W/AUTO [id number] 13:19:00 Test Item Value Reference Range Interpretation [...] K/mm3 0.0-0.1 N NRBC#) - XR CHEST [id number] 13:05:00 Patient Name: DEBI GARRETT Unit No: [id number] EXAMS: CPT CODE: [id number] XR CHEST 1V 83651 Site ID: [id number] HISTORY: Postoperative, right CEA [...] (1305) [id number] Orig Print D/T: S: 08/06/2019 (7732) [facility] NAME: DEBI GARRETT [address] PHYS: [place] [address] : 1935 AGE: 84 SEX: F LOC: Z.SI01 A PHONE #: [phone] EXAM DATE: 08/06/2019 STATUS: ADM IN FAX #: [phone] RADIOLOGY NO: PAGE 1 Signed ReportARTERIAL BLOOD [id number] 13:00:00 Test Item Value Reference Range Interpretation [...] = 50 % COHBGFFIO2) Novel Coronavirus 2019 [id number] 08:07:00 Test Item Value Reference Range Interpretation Comments Novel Coronavirus 2018 Inhouse (test Negative Negative code = COVNONPUI) Novel Coronavirus 2019 [id number] 08:06:00 Test Item Value Reference Range Interpretation Comments Novel Coronavirus 2019 Inhouse (test Negative Negative code = COVNONPUI) HIV 12 AB [id number] 14:28:00 Test Item Value Reference Range Interpretation Comments HIV 1 2 COMBO AG/AB SCREEN AB/AG NON REACTIVE NONREACTIVE (test code = [id number]) BASIC METABOLIC [id number] 13:39:00 Test Item Value Reference Range Interpretation [...] 10.3 MG/DL 8.4-10.2 H CA) BASIC METABOLIC [id number] 13:38:00 Test Item Value Reference Range Interpretation [...] code = MG/DL 8.7-9.7 CA) BASIC METABOLIC [id number] 13:36:00 Test Item Value Reference Range Interpretation [...] code = CA) MG/DL 8.7-9.7 BASIC METABOLIC [id number] 13:35:00 Test Item Value Reference Range Interpretation [...] (test code = CA) MG/DL 8.7-9.7 PROTHROMBIN [id number] 13:32:00 Test Item Value Reference Range Interpretation [...] syste aga embolism. 3.0 - 4.5 PTT [id number] 13:32:00 Test Item Value Reference Range Interpretation Comments PTT ACTIVATED (test code = APTT) 35.5 SECONDS 25.1-36.5 N CBC W/AUTO [id number] 13:23:00 Test Item Value Reference Range Interpretation [...] 0.0-0.1 N NRBC#) - XR CHEST 2 [id number] 13:16:00 Patient Name: DEBI GARRETT Unit No: [id number] EXAMS: CPT CODE: [id number] XR CHEST 2 V 26646 Site ID: [id number] HISTORY: Preoperative, right carotid endarterectomy FINDINGS: The lungs are clear and normally expanded. The heart and pulmonary vasculature is normal. Previous coronary artery stenting noted. Osseous structures are unremarkable. IMPRESSION: No acute card iopulmonary finding at 1316 Reported and signed by: Laith Salcido MD CC: Poli Aaron Technologist: Britney Myers RT (R) Transcrpt Date/Tm/Trnsp: 07/29/2019 (1316) [email or web address] Orig Print D/T: S: 07/29/2019 (7649) [facility] NAME: DEBI GARRETT [address] PHYS: [place] [address] : 1935 AGE: 84 SEX: F LOC: JING PHONE #: [phone] EXAM DATE: 07/29/2019 STATUS: PRE IN FAX #: [phone] RADIOLOGY NO: PAGE 1 Signed ReportBASIC METABOLIC [id number] 06:23:00 Test Item Value Reference Range Interpretation [...] 0-189 mg/dL VERY HIGH...... ...>/= 190 mg/dL [id number] 06:23:00 Test Item Value Reference Range Interpretation Comments MAGNESIUM (test code = MAG) 2.2 MG/DL 1.6-2.3 N PROTHROMBIN [id number] 06:16:00 Test Item Value Reference Range Interpretation [...] syste aga embolism. 3.0 - 4.5 PTT [id number] 06:16:00 Test Item Value Reference Range Interpretation Comments PTT ACTIVATED (test code = APTT) 33.9 SECONDS 25.1-36.5 N BASIC METABOLIC [id number] 06:11:00 Test Item Value Reference Range Interpretation [...] LDL (test MG/DL 0-99 code = LDL) [id number] 06:11:00 Test Item Value Reference Range Interpretation Comments MAGNESIUM (test code = MAG) MG/DL 1.6-2.3 BASIC METABOLIC [id number] 06:11:00 Test Item Value Reference Range Interpretation [...] LDL (test MG/DL 0-99 code = LDL) [id number] 06:11:00 Test Item Value Reference Range Interpretation Comments MAGNESIUM (test code = MAG) 2.2 MG/DL 1.6-2.3 N BASIC METABOLIC [id number] 06:08:00 Test Item Value Reference Range Interpretation [...] LDL (test code = LDL) MG/DL 0-99 [id number] 06:08:00 Test Item Value Reference Range Interpretation Comments MAGNESIUM (test code = MAG) MG/DL 1.6-2.3 CBC W/AUTO [id number] 06:00:00 Test Item Value Reference Range Interpretation [...]
[2020-10-01 19:10] LABS: Urine Appearance CLEAR (Clear); Urine Bilirubin NEGATIVE (Negative); Urine Blood NEGATIVE (Negative); Urine Color YELLOW (Yellow); Urine Glucose TRACE (Negative); Urine Protein NEGATIVE (Negative); Urine pH 7.5 (5.0-7.0)
[2020-10-01 19:27] LABS: Urine Bacteria <20 /HPF (<20); Urine RBC NONE SEEN /HPF (NONE SEEN)
[2020-10-01] MEDS ORDERED: AMIODARONE HCL 200 MG TAB PO SCH (20:00)
[2020-10-01] MEDS: APIXABAN 2.5 MG TABLET PO SCH (20:58)
[2020-10-01] MEDS: DULOXETINE 20 MG CAP PO SCH (20:58)
[2020-10-01] MEDS: FENOFIBRATE 48 MG TAB PO SCH (20:59)
[2020-10-01] MEDS: PREGABALIN 50 MG CAP PO SCH (20:59)
[2020-10-01] MEDS: ENSURE ENLIVE 237 ML CAN PO SCH (20:59)
[2020-10-01] MEDS: POLYETHYL GLY 3350 17 GM/DOSE PO SCH (20:59)
[2020-10-02] MEDS: PANTOPRAZOLE 40MG TABLET PO SCH (06:31)
[2020-10-02] MEDS: LEVOTHYROXINE SOD 0.088 MG TAB PO SCH (06:31)
[2020-10-02 06:41] LABS: Absolute Lymphocytes (CBC) 1.3 K/uL (0.7-4.9); Hematocrit 30.8 % (36.0-45.0); Lymphocytes % 17.3 % (15.3-44.8); MPV 7.1 fL (7.6-11.3); RBC Red Blood Cell Count 3.46 M/uL (3.86-4.86)
[2020-10-02 07:04] LABS: Albumin 3.2 g/dL (3.4-5.0); Magnesium 2.1 mg/dL (1.8-2.4); Potassium 4.2 mmol/L (3.5-5.1); Prealbumin 23.3 mg/dL (20-40)
[2020-10-02] MEDS: [UNRECOGNIZED DRUG - OTHER] PO SCH (08:00)
[2020-10-02] MEDS: [UNRECOGNIZED DRUG - OTHER] PO SCH (08:00)
[2020-10-02] MEDS: APIXABAN 2.5 MG TABLET PO SCH ×2 (08:02→19:43)
[2020-10-02] MEDS: VITAMIN D 1000 UNIT TAB PO SCH (08:02)
[2020-10-02] MEDS: DULOXETINE 20 MG CAP PO SCH ×2 (08:02→19:43)
[2020-10-02] MEDS: ISOSORBIDE MONO SR 30 MG TAB PO SCH (08:02)
[2020-10-02] MEDS: PREGABALIN 50 MG CAP PO SCH ×3 (08:02→19:43)
[2020-10-02] MEDS: THIAMINE HCL 100 MG TABLET PO SCH (08:03)
[2020-10-02] MEDS: AMIODARONE HCL 200 MG TAB PO SCH ×2 (08:03→19:42)
[2020-10-02] MEDS: AMLODIPINE 5 MG TAB PO SCH (08:03)
[2020-10-02] MEDS: DOCUSATE NA 100 MG CAP PO SCH (08:03)
[2020-10-02] MEDS: CLOPIDOGREL 75 MG TABLET PO SCH (08:04)
[2020-10-02] MEDS: ENSURE ENLIVE 237 ML CAN PO SCH ×2 (08:04→19:43)
[2020-10-02] MEDS: FOLIC ACID 1 MG TABLET PO SCH (08:04)
--- NOTE | 2020-10-02 13:07 | R.HP ---
HISTORY AND PHYSICAL FACILITY: [facility] ENCOUNTER DATE AND TIME: 10/02/2020 13:01 (CDT) MR#: [id number] NAME DEBI GARRETT ADDRESS: [address] [place] CITY: [place] [address] [address] PHONE: DATE OF : 1935 AGE: 85 SSN# [id number] GENDER: Female DEXTERITY Right-handed MARITAL STATUS RACE White PRE-HOSPITAL LIVING SETTING 01 - Home (private home/apt. board/care, assisted living, assisted, transitional living) PRE-HOSPITAL LIVING WITH Alone ENCOUNTER PHYSICIAN: Dr. Rico Gonsalez M.D. REFERRING DOCTOR: DR. ESTELLA HERRERA DATE OF ADMISSION: 10/01/2020 13:02 (CDT) REFERRING FACILITY Doctor Office HOME TYPE AND DETAILS: Type of home: apartment # of levels in the residence: 1 # of steps to enter the residence: 0 # of steps within the residence: 0 Pt. lives alone, [facility] [address] on the bottom floor, Since she has been using a rollator for safety, she has a tub w/ shower and shower chair. Prior to that she was completely indep endent driving etc per daughter. since last week her daughter and other family has been helping her m ore in her apartment. ONSET DATE: 09/28/2020 PRIMARY DIAGNOSIS-RELATED SURGERIES: No surgeries related to the primary diagnosis were performed. HISTORY OF PRESENT ILLNESS (HPI): Pt. is a 85 yo Right-handed white female. On 09/28/2020 she was admitted to [facility] with diagnosis Hypotension, Hyponatremia. Her impairment category is Debility 16 - Debility (16). Pre-morbidly, Pt. was independent/mod-I in Transfers Control, Self-Care, Locomotion, Social Cognition , Sphincter Control, and Communication; and she had good Balance and Safety Awareness. Currently, she has deficits of Transfers Control, Balance, Locomotion, Safety Awareness, and Self-Car e. Pt. is now referred to [facility] for acute in-patient rehabilitation in order to maximize patient's functional independence in activities of daily living, strength, ROM, and mobi lity. Patient has realistic goal of being discharged at assistance level 6-Francia to reside at Home with Romain shaw. MEDICATION ALLERGIES: HYDROCODONE ENVIRONMENTAL ALLERGIES: None Known - Substance Allergies None Known - Other Allergies None Known PAST MEDICAL HISTORY: Gerd HLD HTN Chronic Pain Prudential Nerve Ablation (1 side) AFIB CAD Parkinsonism PAST SURGICAL HISTORY: Carotid Edartcarectomy Thyroidectomy R AKA SOCIAL HISTORY: - Home Living Alone REVIEW OF SYSTEMS: - Gen No Chills Fatigue No Fever - Eyes No Double Vision No itchiness - ENMT No Difficulty Swallowing - CVS Chest Discomfort No Chest Pain Fatigue No Weight Gain - Resp No Cough Shortness of Breath - GI Continent No Abdominal Pain No Constipation No Diarrhea - Continent No Kidney Pain No Painful Urination No Urinary Urgency - MSK No Joint Pain No Muscle Cramps No Stiffness - Skin No Itching No Rash No Suspicious Lesions - Neuro Coordination Difficulty No Difficulty with Concentration No Memory Loss No Seizures Weakness - Psych No Anxiety No Depression No HIV Exposure No Persistent Infections No Seasonal Allergies - Endo No Cold/Heat Intolerance No Excessive Hunger No Excessive Thirst No Excessive Urination PHYSICAL EXAM - Gen Alert and awake Lying in bed No apparent distress Oriented to: person, time, and place - Skin No skin breakdown. Normacephalic - Eyes No abnormalities - ENMT No abnormalities - Neck No abnormalities - CVS RRR - Chest No abnormalities - Resp No wheezing - Abd Soft - GI + bowel sounds No abnormalities - No abnormalities - Ext No significant edema - MSK 4+/5 weakness in both lower extremities. - Neuro No focal deficits - Psych Mild depression. VITAL SIGNS Temperature: 98.2 F SBP/DBP: 149/64 Pulse: 54 Resp: 16 NURSING: - Shower allowing shower ACTIVITIES OOB only with supervision QI SCORES: - Self-Care A. Eating 04-Supervision or touching assistance B. Oral hygiene 04-Supervision or touching assistance C. Toileting hygiene 03-Partial/moderate assistance E. Shower/bathe self 03-Partial/moderate assistance F. Upper body dressing 03-Partial/moderate assistance G. Lower body dressing 02-Substantial/maximal assistance H. Putting on/taking off footwear 01-Dependent - Mobility A. Roll left and right 04-Supervision or touching assistance B. Sit to lying 04-Supervision or touching assistance C. Lying to sitting on side of bed 04-Supervision or touching assistance D. Sit to stand 04-Supervision or touching assistance E. Chair/lon-ji-acsjp transfer 04-Supervision or touching assistance F. Toilet transfer 04-Supervision or touching assistance G. Car transfer 88-Not attempted due to medical condition or safety concerns I. Walk 10 feet 04-Supervision or touching assistance J. Walk 50 feet with two turns 88-Not attempted due to medical condition or safety concerns K. Walk 150 feet 88-Not attempted due to medical condition or safety concerns L. Walking 10 feet on uneven surfaces 88-Not attempted due to medical condition or safety concerns M. 1 step (curb) 88-Not attempted due to medical condition or safety concerns N. 4 steps 88-Not attempted due to medical condition or safety concerns O. 12 steps 88-Not attempted due to medical condition or safety concerns P. Picking up object 88-Not attempted due to medical condition or safety concerns - Bladder and Bowel Bladder continence 0-Always continent Bowel continence 0-Always continent - Endurance Poor - Balance Poor - Safety Awareness Poor CURRENT FUNC. DEFICITS: Self-Care, Mobility, Endurance, Balance, and Safety Awareness MEDICATIONS: - Other See attached MAR (Medication Administration Record) ASSESSMENT: Pt. is a 85 yo Right-handed white female.On 09/28/2020 she was admitted to [facility] with d iagnosis Hypotension, Hyponatremia.Her impairment category is Debility 16 - Debility (16).Pre-morbid ly, Pt. was independent/mod-I in Transfers Control, Self-Care, Locomotion, Social Cognition, Sphincte r Control, and Communication; and she had good Balance and Safety Awareness.Currently, she has defici ts of Transfers Control, Balance, Locomotion, Safety Awareness, and Self-Care.Pt. is now referred to [facility] for acute in-patient rehabilitation in order to maximize patient's functional independence in activities of daily living, strength, ROM, and mobility.- Rehab Goal Patient has realistic goal of being discharged at assistance level 6-Francia to reside at Home with Romain shaw. REHAB PLAN: - Physical Therapy Gait dysfunction - to improve, our physical therapists will perform initial evaluation of pt's status upon admission and devise an individualized program for Gait Training, and Wheel Chair mobility Inability to transfer - to improve, our physical therapists will perform initial evaluation of pt's s tatus upon admission and devise an individualized program for Bed mobility Need for home safety evaluation - to improve, our physical therapists will perform initial evaluation of pt's status upon admission and devise an individualized program for Home Evaluation Need in caregiver upon discharge - to improve, our physical therapists will perform initial evaluatio n of pt's status upon admission and devise an individualized program for Caregiver Training Edema - to improve, our physical therapists will perform initial evaluation of pt's status upon admi ssion and devise an individualized program for Elevation Training, and Lymphedema Therapy New precaution - to improve, our physical therapists will perform initial evaluation of pt's status u gemma admission and devise an individualized program for Patient precaution education Poor balance - to improve, our physical therapists will perform initial evaluation of pt's status upo n admission and devise an individualized program for Balance Training Weakness - to improve, our physical therapists will perform initial evaluation of pt's status upon ad mission and devise an individualized program for Aquatic Therapy, Neuromuscular Reeducation, and Stre ngthening Achieving independence - to improve, our physical therapists will perform initial evaluation of pt's status upon admission and devise an individualized program for Community Reintegration Activities - Occupational Therapy ADL deficits - to improve, our occupation therapists will perform initial evaluation of pt's status u gemma admission and devise an individualized program for Bathing, Bed mobility, Community Reintegration , Cooking, Dressing, Eating, Fine Motor Skills, Grooming, Homemaking, Kitchen Mobility, Laundry, Char ent Education, Safety Awareness, Splinting - Positioning, Transfers(Toilet, Tub, Shower), and Wheel C hair Management Need for patient care technician - to improve, our occupation therapists will perform initial evaluation of pt's s tatus upon admission and devise an individualized program for Caregiver Training Weakness - to improve, our occupation therapists will perform initial evaluation of pt's status upon admission and devise an individualized program for Aquatic Therapy, Balance, Endurance, UE ROM, and U E strengthening MEDICAL PLAN: - Diet Type Start Regular - Diet - Liquid Texture Start Regular - Tube Feed Start N/A - Other See attached MAR (Medication Administration Record) - Diet - Solid Texture Regular - Shower shower DISCHARGE PLAN: - Estimated Length of Stay (days) 13. - Consensus on plan Discharge plan has been discussed with primary caregiver. Patient/Family is in agreement with the quentin n. Primary caregiver is in agreement with the plan. - Patient/Family Goals Return home with assistance. - Planned Living Setting Upon Discharge Home, to live alone. SIGNATURE PANEL: (CDT)
--- NOTE | 2020-10-02 13:07 | PAPE ---
POST ADMISSION PHYSICIAN EVALUATION PATIENT: [facility] MR# [id number] REFERRING DOCTOR DR. ESTELLA HERRERA EVALUATION DATE AND TIME 10/02/2020 13:06 (CDT) NAME DEBI GARRETT DATE OF 1935 AGE 85 PHONE SSN# [id number] GENDER female EVALUATING PHYSICIAN Dr. Rico Gonsalez M.D. ADMISSION DIAGNOSIS: Hypotension, Hyponatremia ONSET DATE 09/28/2020 POST-ADMISSION FUNCTIONAL/MEDICAL STATUS: - Walking Same score based on distance walked: 2(50-149ft) STATUS CHANGE EVALUATION: No change in Functional or Medical Status is identified compared with Pre-Admission screening. PATIENT NEEDS CLOSE MEDICAL SUPERVISION BY A REHABILITATION PHYSICIAN FOR: Coordination of Treatment Team PATIENT REQUIRES 24X7 REHAB NURSING FOR MEDICAL AND FUNCTIONAL MGT. OF THE FOLLOWING DEFICITS: Disease Management Medication Management Patient/Family Education Providing Safe Environment PATIENT REQUIRES INTENSIVE, COORDINATED INTERDISCIPLINARY APPROACH TO REHAB: Arranging Home Equipment/Services Discharge Planning Family Intervention/Training Child And Adolescent Therapist/Case Management LIST OF IDENTIFIED AND POTENTIAL PROBLEMS: Alteration in leisure activities Infection, Actual or Potential Mobility Impaired Pain, Alteration in Comfort Self Care Deficit Skin Integrity, Actual or Potential Urinary Tract Infection (UTI), Actual or Potential RISK FOR COMPLICATIONS - N/A Chronic Pain. Parkinsonism. AFIB. - CAD CAD. PATIENT COULD BE AT RISK FOR COMPLICATIONS FROM ADVERSE MEDICAL CONDITIONS DUE TO HIS/HER COMORBIDITI ES AND THE RIGORS OF THE INTENSIVE REHABILLITATION PROGRAM. METHODS OR INTERVENTIONS TO AVOID COMPLIC ATIONS INCLUDE: - Infection Clinical staff to assess and manage the signs and symptoms of infection including fever, redness, war mth, etc. - Urinary Tract Infection - Falls Patient will be evaluated for Fall Precautions and will be placed on Fall Precautions as indicated pe r protocol. - Skin Breakdown Nursing will assess skin daily using assessment tool and will place on Skin Breakdown Precautions as indicated per protocol. - Pain Clinical staff may employ non-medication methods such as massage, distraction, decrease stimulus, etc . as needed. Clinical staff will assess patient's pain level every shift per protocol to assess and e nsure pain management effectiveness. Medications will be given and the pain level re-assessed. PRELIMINARY PLAN OF CARE: - Physical Therapy Patient needs Physical Therapy for a daily minimum of 1.5 hours at least 5 out of 7 days, to improve: Mobility, Strengthening, Transfers, Stretching, ROM, Endurance, Ability to manage stairs, Gait, and Balance. - Speech Therapy Patient needs Speech Therapy for a daily minimum of 0.5 hours at least 5 out of 7 days, to improve: S wallowing, Cognition, Language Skills, and Compensatory Strategies. - Rehabilitation Nursing Patient requires 24x7 Rehabilitation Nursing for: Pain Issues, Identifying and preventing risk factor s, Monitoring and reporting current medical conditions, Assisting with ambulation and transfer, Bernardo ting with all ADL-s, Teaching patients about disease process and medications, Family teaching, Provid ing safe environment, Bowel and Bladder Issues, Skin Integrity, and Medication Management. Patient needs Child And Adolescent Therapist and/or Case Management for: Discharge Planning, Arranging Home Equipmen t or Services, and Family Interventions. - Dietary and Nutrition Services Patient needs Dietary and Nutrition Services for: Adequate Nutrition, Nutritional Supplements, and Nu tritional Education. - Occupational Therapy Patient needs Occupational Therapy for a daily minimum of 1.5 hours at least 5 out of 7 days, to impr ove Activities of Daily Living, including: Eating, Grooming, Bathing, Dressing, Toileting, Toilet Tra nsfers, Community Reintegration, Higher functional activities, Adaptive Equipment, Splinting, Househo ld Tasks, and Other activities as determined. QI SCORES: - Self-Care A. Eating 04-Supervision or touching assistance B. Oral hygiene 04-Supervision or touching assistance C. Toileting hygiene 03-Partial/moderate assistance E. Shower/bathe self 03-Partial/moderate assistance F. Upper body dressing 03-Partial/moderate assistance G. Lower body dressing 02-Substantial/maximal assistance H. Putting on/taking off footwear 01-Dependent - Mobility A. Roll left and right 04-Supervision or touching assistance B. Sit to lying 04-Supervision or touching assistance C. Lying to sitting on side of bed 04-Supervision or touching assistance D. Sit to stand 04-Supervision or touching assistance E. Chair/unw-wa-uyodd transfer 04-Supervision or touching assistance F. Toilet transfer 04-Supervision or touching assistance G. Car transfer 88-Not attempted due to medical condition or safety concerns I. Walk 10 feet 04-Supervision or touching assistance J. Walk 50 feet with two turns 88-Not attempted due to medical condition or safety concerns K. Walk 150 feet 88-Not attempted due to medical condition or safety concerns L. Walking 10 feet on uneven surfaces 88-Not attempted due to medical condition or safety concerns M. 1 step (curb) 88-Not attempted due to medical condition or safety concerns N. 4 steps 88-Not attempted due to medical condition or safety concerns O. 12 steps 88-Not attempted due to medical condition or safety concerns P. Picking up object 88-Not attempted due to medical condition or safety concerns - Bladder and Bowel Bladder continence 0-Always continent Bowel continence 0-Always continent - Endurance Poor - Balance Poor - Safety Awareness Poor POTENTIAL FUNCTIONAL GOALS FOR PATIENT TO ACHIEVE BY DISCHARGE: - Safety Precaution Patient will remain free from falls or injury at time of discharge. - Bed Mobility Patient will perform bed mobility at 4-[place] level of assistance. - Transfers Patient will complete transfers from bed to chair at 4-[place] level of assistance. - Mobility Patient will ambulate 150 ft with 4-[place] level of assistance with RW. PATIENT REHAB POTENTIAL Jann GARRETT is able and expected to receive 3 hours of individualized therapy daily on at least 5 of e very 7 days Jann GARRETT's prognosis for significant practical improvement within a reasonable period of time appea rs Good Expected level of measurable improvement will be of a practical value to Jann GARRETT's functional capa city or adaptations to impairments Has a viable Discharge Plan Medically appropriate; condition is sufficiently stable to participate in intensive rehab program DISCHARGE PLAN: - Estimated Length of Stay (days) 13. - Consensus on plan Discharge plan has been discussed with primary caregiver. Patient/Family is in agreement with the quentin n. Primary caregiver is in agreement with the plan. - Patient/Family Goals Return home with assistance. - Planned Living Setting Upon Discharge Home, to live alone. CONCLUSION ON REHABILITATION NECESSITY: I have evaluated patient's pre-admission functional status and, comparing it to the patient's post-ad mission functional status now, I conclude that the pre-admission assessment was accurate. Patient's c ondition on admission supports the medical necessity of admission to [facility]. It is safe to proceed with patient's therapy program. SIGNATURE PANEL: (CDT)
[2020-10-02] MEDS: CRANBERRY FRUIT EXTRACT 200 MG CAP PO SCH (19:42)
[2020-10-02] MEDS: FENOFIBRATE 48 MG TAB PO SCH (19:43)
[2020-10-02] MEDS: POLYETHYL GLY 3350 17 GM/DOSE PO SCH (19:43)
[2020-10-03] MEDS: LEVOTHYROXINE SOD 0.088 MG TAB PO SCH (06:32)
[2020-10-03] MEDS: PANTOPRAZOLE 40MG TABLET PO SCH (06:32)
[2020-10-03] MEDS: CRANBERRY FRUIT EXTRACT 200 MG CAP PO SCH ×2 (07:50→19:11)
[2020-10-03] MEDS: VITAMIN D 1000 UNIT TAB PO SCH (07:51)
[2020-10-03] MEDS: APIXABAN 2.5 MG TABLET PO SCH ×2 (07:51→19:11)
[2020-10-03] MEDS: DOCUSATE NA 100 MG CAP PO SCH (07:51)
[2020-10-03] MEDS: PREGABALIN 50 MG CAP PO SCH ×3 (07:51→19:12)
[2020-10-03] MEDS: DULOXETINE 20 MG CAP PO SCH ×2 (07:51→19:11)
[2020-10-03] MEDS: ISOSORBIDE MONO SR 30 MG TAB PO SCH (07:51)
[2020-10-03] MEDS: ENSURE ENLIVE 237 ML CAN PO SCH ×2 (07:52→19:12)
[2020-10-03] MEDS: CLOPIDOGREL 75 MG TABLET PO SCH (07:52)
[2020-10-03] MEDS: AMIODARONE HCL 200 MG TAB PO SCH ×2 (07:52→19:12)
[2020-10-03] MEDS: AMLODIPINE 5 MG TAB PO SCH (07:52)
[2020-10-03] MEDS: THIAMINE HCL 100 MG TABLET PO SCH (07:52)
[2020-10-03] MEDS: FOLIC ACID 1 MG TABLET PO SCH (07:52)
[2020-10-03] MEDS: [UNRECOGNIZED DRUG - OTHER] PO SCH (07:53)
[2020-10-03] MEDS: [UNRECOGNIZED DRUG - OTHER] PO SCH (07:53)
[2020-10-03] MEDS: CODEINE 30MG/APAP 300MG TAB PO PRN ×2 (13:52→20:08)
[2020-10-03] MEDS: FENOFIBRATE 48 MG TAB PO SCH (19:11)
[2020-10-03] MEDS: POLYETHYL GLY 3350 17 GM/DOSE PO SCH (19:12)
[2020-10-04] MEDS: LEVOTHYROXINE SOD 0.088 MG TAB PO SCH (07:45)
[2020-10-04] MEDS: PANTOPRAZOLE 40MG TABLET PO SCH (07:45)
[2020-10-04] MEDS: [UNRECOGNIZED DRUG - OTHER] PO SCH (08:00)
[2020-10-04] MEDS: [UNRECOGNIZED DRUG - OTHER] PO SCH (08:00)
[2020-10-04] MEDS: CRANBERRY FRUIT EXTRACT 200 MG CAP PO SCH ×2 (08:37→19:27)
[2020-10-04] MEDS: CODEINE 30MG/APAP 300MG TAB PO PRN ×2 (08:39→19:27)
[2020-10-04] MEDS: AMIODARONE HCL 200 MG TAB PO SCH ×2 (08:40→19:28)
[2020-10-04] MEDS: VITAMIN D 1000 UNIT TAB PO SCH (08:40)
[2020-10-04] MEDS: DOCUSATE NA 100 MG CAP PO SCH (08:40)
[2020-10-04] MEDS: APIXABAN 2.5 MG TABLET PO SCH ×2 (08:41→19:27)
[2020-10-04] MEDS: CLOPIDOGREL 75 MG TABLET PO SCH (08:41)
[2020-10-04] MEDS: ISOSORBIDE MONO SR 30 MG TAB PO SCH (08:41)
[2020-10-04] MEDS: DULOXETINE 20 MG CAP PO SCH ×2 (08:42→19:28)
[2020-10-04] MEDS: PREGABALIN 50 MG CAP PO SCH ×3 (08:42→19:27)
[2020-10-04] MEDS: THIAMINE HCL 100 MG TABLET PO SCH (08:42)
[2020-10-04] MEDS: FOLIC ACID 1 MG TABLET PO SCH (08:42)
[2020-10-04] MEDS: AMLODIPINE 5 MG TAB PO SCH (08:43)
[2020-10-04] MEDS: ENSURE ENLIVE 237 ML CAN PO SCH ×2 (08:43→19:28)
[2020-10-04] MEDS ORDERED: NYSTATIN 500,000 UNIT/5 ML UDC PO SCH ×2 (12:00→14:00)
[2020-10-04] MEDS: ACETAMINOPHEN 500 MG TAB PO PRN (12:39)
--- NOTE | 2020-10-04 17:53 | R.PN ---
PROGRESS NOTES ENCOUNTER DATE AND TIME: 10/04/2020 17:39 (CDT) NAME DEBI GARRETT DATE OF : 1935 DATE OF ADMISSION: 10/01/2020 13:02 (CDT) Hypotension, HyponatremiaCHIEF COMPLAINT: Debility, hypotension SUBJECTIVE: Pt denied any depression. Pt denied any Shortness of Breath. Labs reviewed. Na 133, prealbumin 23.3, WBC 7.4, Hgb 10.9, Esterase 1 +, WBC 10-20. Ambulated 1175' with standby assistance using a rollator. VITAL SIGNS Temperature: 97.4 F SBP/DBP: 171/65 Pulse: 63 Resp: 16 MEDICATION ALLERGIES: HYDROCODONE ENVIRONMENTAL ALLERGIES: None Known - Substance Allergies None Known - Other Allergies None Known NURSING: - Shower allowing shower ACTIVITIES OOB only with supervision THERAPIES: - Dietary and Nutrition Adequate Nutrition. Nutritional Education. Nutritional Supplements. PHYSICAL EXAM - Gen Alert and awake Lying in bed No apparent distress Oriented to: person, time, and place - Skin No skin breakdown. Normacephalic - Eyes No abnormalities - ENMT No abnormalities - Neck No abnormalities - CVS RRR - Chest No abnormalities - Resp No wheezing - Abd Soft - GI + bowel sounds No abnormalities - No abnormalities - Ext No significant edema - MSK 4+/5 weakness in both lower extremities. - Neuro No focal deficits - Psych Mild depression. ASSESSMENT: Pt. is a 85 yo Right-handed white female.On 09/28/2020 she was admitted to [facility] with d iagnosis Hypotension, Hyponatremia.Her impairment category is Debility 16 - Debility (16).Pre-morbid ly, Pt. was independent/mod-I in Transfers Control, Self-Care, Locomotion, Social Cognition, Sphincte r Control, and Communication; and she had good Balance and Safety Awareness.Currently, she has defici ts of Transfers Control, Balance, Locomotion, Safety Awareness, and Self-Care.Pt. is now referred to [facility] for acute in-patient rehabilitation in order to maximize patient's functional independence in activities of daily living, strength, ROM, and mobility.- Rehab Goal Patient has realistic goal of being discharged at assistance level 6-Francia to reside at Home with Romain shaw. MDM/PLAN: - Physical Therapy Gait dysfunction - to improve, our physical therapists will perform initial evaluation of pt's statu s upon admission and devise an individualized program for Gait Training, and Wheel Chair mobility Inability to transfer - to improve, our physical therapists will perform initial evaluation of pt's status upon admission and devise an individualized program for Bed mobility Need for home safety evaluation - to improve, our physical therapists will perform initial evaluatio n of pt's status upon admission and devise an individualized program for Home Evaluation Need in caregiver upon discharge - to improve, our physical therapists will perform initial evaluati on of pt's status upon admission and devise an individualized program for Caregiver Training Edema - to improve, our physical therapists will perform initial evaluation of pt's status upon admis ada and devise an individualized program for Elevation Training, and Lymphedema Therapy New precaution - to improve, our physical therapists will perform initial evaluation of pt's status upon admission and devise an individualized program for Patient precaution education Poor balance - to improve, our physical therapists will perform initial evaluation of pt's status up on admission and devise an individualized program for Balance Training Weakness - to improve, our physical therapists will perform initial evaluation of pt's status upon a dmission and devise an individualized program for Aquatic Therapy, Neuromuscular Reeducation, and Str engthening Achieving independence - to improve, our physical therapists will perform initial evaluation of pt's status upon admission and devise an individualized program for Community Reintegration Activities - Occupational Therapy ADL deficits - to improve, our occupation therapists will perform initial evaluation of pt's status upon admission and devise an individualized program for Bathing, Bed mobility, Community Reintegratio n, Cooking, Dressing, Eating, Fine Motor Skills, Grooming, Homemaking, Kitchen Mobility, Laundry, Pat ient Education, Safety Awareness, Splinting - Positioning, Transfers(Toilet, Tub, Shower), and Wheel Chair Management Need for post acute care registered nurse - to improve, our occupation therapists will perform initial evaluation of pt's status upon admission and devise an individualized program for Caregiver Training Weakness - to improve, our occupation therapists will perform initial evaluation of pt's status upon admission and devise an individualized program for Aquatic Therapy, Balance, Endurance, UE ROM, and UE strengthening - Other See attached MAR (Medication Administration Record) - Diet Type Continue Regular - Diet - Liquid Texture Continue Regular - Tube Feed Continue N/A - Diet - Solid Texture Continue Regular - Shower allowing shower FUNCTIONAL STATUS: UPDATED AT WEEKLY TEAM CONFERENCE - Walking Same score based on distance walked: 2(50-149ft) FUNCTIONAL STATUS: - Self-Care A. Eating Catalina B. Grooming Francia C. Bathing Catalina D. Dressing - Upper sup E. Dressing - Lower Catalina F. Toileting sup - Sphincter Control G. Bladder control Francia H. Bowel control Francia - Transfers Control I. Bed/Chair/Wheelchair Catalina J. Toilet [place] K. Tub/Shower Catalina - Locomotion L. Walk/Wheelchair (B) sup M. Stairs Catalina - Communication N. Comprehension (B) sup O. Expression (B) sup - Social Cognition P. Social Interaction Francia Q. Problem Solving Catalina R. Memory Catalina - Endurance Good - Balance Good - Safety Awareness Fair QI SCORES: - Self-Care A. Eating 04-Supervision or touching assistance B. Oral hygiene 04-Supervision or touching assistance C. Toileting hygiene 03-Partial/moderate assistance E. Shower/bathe self 03-Partial/moderate assistance F. Upper body dressing 03-Partial/moderate assistance G. Lower body dressing 02-Substantial/maximal assistance H. Putting on/taking off footwear 01-Dependent - Mobility A. Roll left and right 04-Supervision or touching assistance B. Sit to lying 04-Supervision or touching assistance C. Lying to sitting on side of bed 04-Supervision or touching assistance D. Sit to stand 04-Supervision or touching assistance E. Chair/hqm-vu-[id number] transfer 04-Supervision or touching assistance F. Toilet transfer 04-Supervision or touching assistance G. Car transfer 88-Not attempted due to medical condition or safety concerns I. Walk 10 feet 04-Supervision or touching assistance J. Walk 50 feet with two turns 88-Not attempted due to medical condition or safety concerns K. Walk 150 feet 88-Not attempted due to medical condition or safety concerns L. Walking 10 feet on uneven surfaces 88-Not attempted due to medical condition or safety concerns M. 1 step (curb) 88-Not attempted due to medical condition or safety concerns N. 4 steps 88-Not attempted due to medical condition or safety concerns O. 12 steps 88-Not attempted due to medical condition or safety concerns P. Picking up object 88-Not attempted due to medical condition or safety concerns - Bladder and Bowel Bladder continence 0-Always continent Bowel continence 0-Always continent - Endurance Poor - Balance Poor - Safety Awareness Poor CURRENT FUNC. DEFICITS: Self-Care, Mobility, Endurance, Balance, and Safety Awareness SIGNATURE PANEL: (CDT)
[2020-10-04] MEDS: POLYETHYL GLY 3350 17 GM/DOSE PO SCH (19:28)
[2020-10-04] MEDS: FENOFIBRATE 48 MG TAB PO SCH (19:28)
[2020-10-05] MEDS: LEVOTHYROXINE SOD 0.088 MG TAB PO SCH (06:56)
[2020-10-05] MEDS: PANTOPRAZOLE 40MG TABLET PO SCH (06:56)
[2020-10-05] MEDS: LIDOCAINE VISCOUS 2% SOLN 15 ML UDC PO PRN ×2 (07:57→21:21)
[2020-10-05] MEDS: [UNRECOGNIZED DRUG - OTHER] PO SCH (08:00)
[2020-10-05] MEDS: DOCUSATE NA 100 MG CAP PO SCH (08:01)
[2020-10-05] MEDS: ACETAMINOPHEN 500 MG TAB PO PRN (08:01)
[2020-10-05] MEDS: DULOXETINE 20 MG CAP PO SCH ×2 (08:02→21:06)
[2020-10-05] MEDS: APIXABAN 2.5 MG TABLET PO SCH ×2 (08:06→21:06)
[2020-10-05] MEDS: THIAMINE HCL 100 MG TABLET PO SCH (08:06)
[2020-10-05] MEDS: VITAMIN D 1000 UNIT TAB PO SCH (08:06)
[2020-10-05] MEDS: CRANBERRY FRUIT EXTRACT 200 MG CAP PO SCH ×2 (08:06→21:05)
[2020-10-05] MEDS: PREGABALIN 50 MG CAP PO SCH ×3 (08:07→21:06)
[2020-10-05] MEDS: ISOSORBIDE MONO SR 30 MG TAB PO SCH (08:07)
[2020-10-05] MEDS: FOLIC ACID 1 MG TABLET PO SCH (08:07)
[2020-10-05] MEDS: CLOPIDOGREL 75 MG TABLET PO SCH (08:07)
[2020-10-05] MEDS: AMLODIPINE 5 MG TAB PO SCH (08:09)
[2020-10-05] MEDS: AMIODARONE HCL 200 MG TAB PO SCH ×2 (08:09→21:06)
[2020-10-05] MEDS: ENSURE ENLIVE 237 ML CAN PO SCH ×2 (08:10→21:07)
--- NOTE | 2020-10-05 17:44 | R.PN ---
PROGRESS NOTES ENCOUNTER DATE AND TIME: 10/05/2020 17:41 (CDT) NAME DEBI GARRETT DATE OF : 1935 DATE OF ADMISSION: 10/01/2020 13:02 (CDT) Hypotension, HyponatremiaCHIEF COMPLAINT: Debility, hypotension SUBJECTIVE: Pt denied any depression. Pt denied any Shortness of Breath. Labs reviewed. Na 133, prealbumin 23.3, WBC 7.4, Hgb 10.9, Esterase 1 +, WBC 10-20. Ambulated 1500' with standby assistance using a rollator. VITAL SIGNS Temperature: 97.1 F SBP/DBP: 140/68 Pulse: 60 Resp: 16 MEDICATION ALLERGIES: HYDROCODONE ENVIRONMENTAL ALLERGIES: None Known - Substance Allergies None Known - Other Allergies None Known NURSING: - Shower allowing shower ACTIVITIES OOB only with supervision THERAPIES: - Dietary and Nutrition Adequate Nutrition. Nutritional Education. Nutritional Supplements. PHYSICAL EXAM - Gen Alert and awake Lying in bed No apparent distress Oriented to: person, time, and place - Skin No skin breakdown. Normacephalic - Eyes No abnormalities - ENMT No abnormalities - Neck No abnormalities - CVS RRR - Chest No abnormalities - Resp No wheezing - Abd Soft - GI + bowel sounds No abnormalities - No abnormalities - Ext No significant edema - MSK 4+/5 weakness in both lower extremities. - Neuro No focal deficits - Psych Mild depression. ASSESSMENT: Pt. is a 85 yo Right-handed white female.On 09/28/2020 she was admitted to [facility] with d iagnosis Hypotension, Hyponatremia.Her impairment category is Debility 16 - Debility (16).Pre-morbid ly, Pt. was independent/mod-I in Transfers Control, Self-Care, Locomotion, Social Cognition, Sphincte r Control, and Communication; and she had good Balance and Safety Awareness.Currently, she has defici ts of Transfers Control, Balance, Locomotion, Safety Awareness, and Self-Care.Pt. is now referred to [facility] for acute in-patient rehabilitation in order to maximize patient's functional independence in activities of daily living, strength, ROM, and mobility.- Rehab Goal Patient has realistic goal of being discharged at assistance level 6-Francia to reside at Home with Romain shaw. MDM/PLAN: - Physical Therapy Gait dysfunction - to improve, our physical therapists will perform initial evaluation of pt's statu s upon admission and devise an individualized program for Gait Training, and Wheel Chair mobility Inability to transfer - to improve, our physical therapists will perform initial evaluation of pt's status upon admission and devise an individualized program for Bed mobility Need for home safety evaluation - to improve, our physical therapists will perform initial evaluatio n of pt's status upon admission and devise an individualized program for Home Evaluation Need in caregiver upon discharge - to improve, our physical therapists will perform initial evaluati on of pt's status upon admission and devise an individualized program for Caregiver Training Edema - to improve, our physical therapists will perform initial evaluation of pt's status upon admis ada and devise an individualized program for Elevation Training, and Lymphedema Therapy New precaution - to improve, our physical therapists will perform initial evaluation of pt's status upon admission and devise an individualized program for Patient precaution education Poor balance - to improve, our physical therapists will perform initial evaluation of pt's status up on admission and devise an individualized program for Balance Training Weakness - to improve, our physical therapists will perform initial evaluation of pt's status upon a dmission and devise an individualized program for Aquatic Therapy, Neuromuscular Reeducation, and Str engthening Achieving independence - to improve, our physical therapists will perform initial evaluation of pt's status upon admission and devise an individualized program for Community Reintegration Activities - Occupational Therapy ADL deficits - to improve, our occupation therapists will perform initial evaluation of pt's status upon admission and devise an individualized program for Bathing, Bed mobility, Community Reintegratio n, Cooking, Dressing, Eating, Fine Motor Skills, Grooming, Homemaking, Kitchen Mobility, Laundry, Pat ient Education, Safety Awareness, Splinting - Positioning, Transfers(Toilet, Tub, Shower), and Wheel Chair Management Need for restorative care technician - to improve, our occupation therapists will perform initial evaluation of pt's status upon admission and devise an individualized program for Caregiver Training Weakness - to improve, our occupation therapists will perform initial evaluation of pt's status upon admission and devise an individualized program for Aquatic Therapy, Balance, Endurance, UE ROM, and UE strengthening - Other See attached MAR (Medication Administration Record) - Diet Type Continue Regular - Diet - Liquid Texture Continue Regular - Tube Feed Continue N/A - Diet - Solid Texture Continue Regular - Shower allowing shower FUNCTIONAL STATUS: UPDATED AT WEEKLY TEAM CONFERENCE - Walking Same score based on distance walked: 2(50-149ft) FUNCTIONAL STATUS: - Self-Care A. Eating Catalina B. Grooming Francia C. Bathing Catalina D. Dressing - Upper sup E. Dressing - Lower Catalina F. Toileting sup - Sphincter Control G. Bladder control Francia H. Bowel control Francia - Transfers Control I. Bed/Chair/Wheelchair Catalina J. Toilet Catalina K. Tub/Shower Catalina - Locomotion L. Walk/Wheelchair (B) sup M. Stairs Catalina - Communication N. Comprehension (B) sup O. Expression (B) sup - Social Cognition P. Social Interaction Francia Q. Problem Solving Catalina R. Memory Catalina - Endurance Good - Balance Good - Safety Awareness Fair QI SCORES: - Self-Care A. Eating 04-Supervision or touching assistance B. Oral hygiene 04-Supervision or touching assistance C. Toileting hygiene 03-Partial/moderate assistance E. Shower/bathe self 03-Partial/moderate assistance F. Upper body dressing 03-Partial/moderate assistance G. Lower body dressing 02-Substantial/maximal assistance H. Putting on/taking off footwear 01-Dependent - Mobility A. Roll left and right 04-Supervision or touching assistance B. Sit to lying 04-Supervision or touching assistance C. Lying to sitting on side of bed 04-Supervision or touching assistance D. Sit to stand 04-Supervision or touching assistance E. Chair/rdh-ef-dafet transfer 04-Supervision or touching assistance F. Toilet transfer 04-Supervision or touching assistance G. Car transfer 88-Not attempted due to medical condition or safety concerns I. Walk 10 feet 04-Supervision or touching assistance J. Walk 50 feet with two turns 88-Not attempted due to medical condition or safety concerns K. Walk 150 feet 88-Not attempted due to medical condition or safety concerns L. Walking 10 feet on uneven surfaces 88-Not attempted due to medical condition or safety concerns M. 1 step (curb) 88-Not attempted due to medical condition or safety concerns N. 4 steps 88-Not attempted due to medical condition or safety concerns O. 12 steps 88-Not attempted due to medical condition or safety concerns P. Picking up object 88-Not attempted due to medical condition or safety concerns - Bladder and Bowel Bladder continence 0-Always continent Bowel continence 0-Always continent - Endurance Poor - Balance Poor - Safety Awareness Poor CURRENT FUNC. DEFICITS: Self-Care, Mobility, Endurance, Balance, and Safety Awareness SIGNATURE PANEL: (CDT)
[2020-10-05] MEDS: FENOFIBRATE 48 MG TAB PO SCH (21:07)
[2020-10-05] MEDS: POLYETHYL GLY 3350 17 GM/DOSE PO SCH (21:22)
[2020-10-06] MEDS: LEVOTHYROXINE SOD 0.088 MG TAB PO SCH (06:28)
[2020-10-06] MEDS: PANTOPRAZOLE 40MG TABLET PO SCH (06:28)
[2020-10-06] MEDS: ACETAMINOPHEN 500 MG TAB PO PRN (07:39)
[2020-10-06] MEDS: PREGABALIN 50 MG CAP PO SCH ×3 (07:40→19:29)
[2020-10-06] MEDS: THIAMINE HCL 100 MG TABLET PO SCH (07:40)
[2020-10-06] MEDS: APIXABAN 2.5 MG TABLET PO SCH ×2 (07:40→19:29)
[2020-10-06] MEDS: CRANBERRY FRUIT EXTRACT 200 MG CAP PO SCH ×2 (07:40→19:28)
[2020-10-06] MEDS: DOCUSATE NA 100 MG CAP PO SCH (07:41)
[2020-10-06] MEDS: AMLODIPINE 5 MG TAB PO SCH (07:41)
[2020-10-06] MEDS: ISOSORBIDE MONO SR 30 MG TAB PO SCH (07:41)
[2020-10-06] MEDS: FOLIC ACID 1 MG TABLET PO SCH (07:41)
[2020-10-06] MEDS: DULOXETINE 20 MG CAP PO SCH ×2 (07:41→19:28)
[2020-10-06] MEDS: AMIODARONE HCL 200 MG TAB PO SCH ×2 (07:41→19:28)
[2020-10-06] MEDS: VITAMIN D 1000 UNIT TAB PO SCH (07:41)
[2020-10-06] MEDS: CLOPIDOGREL 75 MG TABLET PO SCH (07:42)
[2020-10-06] MEDS: ENSURE ENLIVE 237 ML CAN PO SCH ×2 (08:00→19:29)
[2020-10-06] MEDS: [UNRECOGNIZED DRUG - OTHER] PO SCH (08:00)
[2020-10-06] MEDS: CODEINE 30MG/APAP 300MG TAB PO PRN ×2 (12:58→19:29)
--- NOTE | 2020-10-06 18:27 | R.PN ---
PROGRESS NOTES ENCOUNTER DATE AND TIME: 10/06/2020 18:23 (CDT) NAME DEBI GARRETT DATE OF : 1935 DATE OF ADMISSION: 10/01/2020 13:02 (CDT) Hypotension, HyponatremiaCHIEF COMPLAINT: Debility, hypotension SUBJECTIVE: Pt denied any depression. Pt denied any Shortness of Breath. Labs reviewed. Na 133, prealbumin 23.3, WBC 7.4, Hgb 10.9, Esterase 1 +, WBC 10-20. Ambulated 1500' with standby assistance using a rollator. Answered questions with 80% accuracy with speech therapy. Up and down 15 steps with standby assistance. VITAL SIGNS Temperature: 97.6 F SBP/DBP: 106/74 Pulse: 94 Resp: 16 MEDICATION ALLERGIES: HYDROCODONE ENVIRONMENTAL ALLERGIES: None Known - Substance Allergies None Known - Other Allergies None Known NURSING: - Shower allowing shower ACTIVITIES OOB only with supervision THERAPIES: - Dietary and Nutrition Adequate Nutrition. Nutritional Education. Nutritional Supplements. PHYSICAL EXAM - Gen Alert and awake Lying in bed No apparent distress Oriented to: person, time, and place - Skin No skin breakdown. Normacephalic - Eyes No abnormalities - ENMT No abnormalities - Neck No abnormalities - CVS RRR - Chest No abnormalities - Resp No wheezing - Abd Soft - GI + bowel sounds No abnormalities - No abnormalities - Ext No significant edema - MSK 4+/5 weakness in both lower extremities. - Neuro No focal deficits - Psych Mild depression. ASSESSMENT: Pt. is a 85 yo Right-handed white female.On 09/28/2020 she was admitted to [facility] with d iagnosis Hypotension, Hyponatremia.Her impairment category is Debility 16 - Debility (16).Pre-morbid ly, Pt. was independent/mod-I in Transfers Control, Self-Care, Locomotion, Social Cognition, Sphincte r Control, and Communication; and she had good Balance and Safety Awareness.Currently, she has defici ts of Transfers Control, Balance, Locomotion, Safety Awareness, and Self-Care.Pt. is now referred to [facility] for acute in-patient rehabilitation in order to maximize patient's functional independence in activities of daily living, strength, ROM, and mobility.- Rehab Goal Patient has realistic goal of being discharged at assistance level 6-Francia to reside at Home with Romain ne. MDM/PLAN: - Physical Therapy Gait dysfunction - to improve, our physical therapists will perform initial evaluation of pt's statu s upon admission and devise an individualized program for Gait Training, and Wheel Chair mobility Inability to transfer - to improve, our physical therapists will perform initial evaluation of pt's status upon admission and devise an individualized program for Bed mobility Need for home safety evaluation - to improve, our physical therapists will perform initial evaluatio n of pt's status upon admission and devise an individualized program for Home Evaluation Need in caregiver upon discharge - to improve, our physical therapists will perform initial evaluati on of pt's status upon admission and devise an individualized program for Caregiver Training Edema - to improve, our physical therapists will perform initial evaluation of pt's status upon admi ssion and devise an individualized program for Elevation Training, and Lymphedema Therapy New precaution - to improve, our physical therapists will perform initial evaluation of pt's status upon admission and devise an individualized program for Patient precaution education Poor balance - to improve, our physical therapists will perform initial evaluation of pt's status up on admission and devise an individualized program for Balance Training Weakness - to improve, our physical therapists will perform initial evaluation of pt's status upon a dmission and devise an individualized program for Aquatic Therapy, Neuromuscular Reeducation, and Str engthening Achieving independence - to improve, our physical therapists will perform initial evaluation of pt's status upon admission and devise an individualized program for Community Reintegration Activities - Occupational Therapy ADL deficits - to improve, our occupation therapists will perform initial evaluation of pt's status upon admission and devise an individualized program for Bathing, Bed mobility, Community Reintegratio n, Cooking, Dressing, Eating, Fine Motor Skills, Grooming, Homemaking, Kitchen Mobility, Laundry, Pat ient Education, Safety Awareness, Splinting - Positioning, Transfers(Toilet, Tub, Shower), and Wheel Chair Management Need for care connector - to improve, our occupation therapists will perform initial evaluation of pt's status upon admission and devise an individualized program for Caregiver Training Weakness - to improve, our occupation therapists will perform initial evaluation of pt's status upon admission and devise an individualized program for Aquatic Therapy, Balance, Endurance, UE ROM, and UE strengthening - Other See attached MAR (Medication Administration Record) - Diet Type Continue Regular - Diet - Liquid Texture Continue Regular - Tube Feed Continue N/A - Diet - Solid Texture Continue Regular - Shower allowing shower FUNCTIONAL STATUS: UPDATED AT WEEKLY TEAM CONFERENCE - Walking Same score based on distance walked: 2(50-149ft) FUNCTIONAL STATUS: - Self-Care A. Eating Catalina B. Grooming Francia C. Bathing Catalina D. Dressing - Upper sup E. Dressing - Lower Catalina F. Toileting sup - Sphincter Control G. Bladder control Francia H. Bowel control Francia - Transfers Control I. Bed/Chair/Wheelchair Catalina J. Toilet Catalina K. Tub/Shower Catalina - Locomotion L. Walk/Wheelchair (B) sup M. Stairs Catalina - Communication N. Comprehension (B) sup O. Expression (B) sup - Social Cognition P. Social Interaction Francia Q. Problem Solving Catalina R. Memory Catalina - Endurance Good - Balance Good - Safety Awareness Fair QI SCORES: - Self-Care A. Eating 04-Supervision or touching assistance B. Oral hygiene 04-Supervision or touching assistance C. Toileting hygiene 03-Partial/moderate assistance E. Shower/bathe self 03-Partial/moderate assistance F. Upper body dressing 03-Partial/moderate assistance G. Lower body dressing 02-Substantial/maximal assistance H. Putting on/taking off footwear 01-Dependent - Mobility A. Roll left and right 04-Supervision or touching assistance B. Sit to lying 04-Supervision or touching assistance C. Lying to sitting on side of bed 04-Supervision or touching assistance D. Sit to stand 04-Supervision or touching assistance E. Chair/qys-rb-[id number] transfer 04-Supervision or touching assistance F. Toilet transfer 04-Supervision or touching assistance G. Car transfer 88-Not attempted due to medical condition or safety concerns I. Walk 10 feet 04-Supervision or touching assistance J. Walk 50 feet with two turns 88-Not attempted due to medical condition or safety concerns K. Walk 150 feet 88-Not attempted due to medical condition or safety concerns L. Walking 10 feet on uneven surfaces 88-Not attempted due to medical condition or safety concerns M. 1 step (curb) 88-Not attempted due to medical condition or safety concerns N. 4 steps 88-Not attempted due to medical condition or safety concerns O. 12 steps 88-Not attempted due to medical condition or safety concerns P. Picking up object 88-Not attempted due to medical condition or safety concerns - Bladder and Bowel Bladder continence 0-Always continent Bowel continence 0-Always continent - Endurance Poor - Balance Poor - Safety Awareness Poor CURRENT FUNC. DEFICITS: Self-Care, Mobility, Endurance, Balance, and Safety Awareness SIGNATURE PANEL: (CDT)
[2020-10-06] MEDS: POLYETHYL GLY 3350 17 GM/DOSE PO SCH (19:29)
[2020-10-06] MEDS: FENOFIBRATE 48 MG TAB PO SCH (19:29)
[2020-10-07 06:20] LABS: Absolute Lymphocytes (CBC) 0.9 K/uL (0.7-4.9); Basophils % 1.3 % (0-1.3); Hematocrit 30.4 % (36.0-45.0); Lymphocytes % 17.7 % (15.3-44.8); MPV 7.4 fL (7.6-11.3); RBC Red Blood Cell Count 3.36 M/uL (3.86-4.86)
[2020-10-07] MEDS: PANTOPRAZOLE 40MG TABLET PO SCH (06:22)
[2020-10-07] MEDS: LEVOTHYROXINE SOD 0.088 MG TAB PO SCH (06:23)
[2020-10-07 06:44] LABS: Albumin 3.2 g/dL (3.4-5.0); Magnesium 2.3 mg/dL (1.8-2.4); Potassium 3.8 mmol/L (3.5-5.1); Prealbumin 22.4 mg/dL (20-40)
[2020-10-07] MEDS: ACETAMINOPHEN 500 MG TAB PO PRN ×2 (07:55→19:43)
[2020-10-07] MEDS: PREGABALIN 50 MG CAP PO SCH ×3 (07:56→19:43)
[2020-10-07] MEDS: CRANBERRY FRUIT EXTRACT 200 MG CAP PO SCH ×2 (07:56→19:43)
[2020-10-07] MEDS: ISOSORBIDE MONO SR 30 MG TAB PO SCH (07:56)
[2020-10-07] MEDS: DOCUSATE NA 100 MG CAP PO SCH (07:56)
[2020-10-07] MEDS: CLOPIDOGREL 75 MG TABLET PO SCH (07:56)
[2020-10-07] MEDS: THIAMINE HCL 100 MG TABLET PO SCH (07:57)
[2020-10-07] MEDS: AMLODIPINE 5 MG TAB PO SCH (07:57)
[2020-10-07] MEDS: DULOXETINE 20 MG CAP PO SCH ×2 (07:57→19:42)
[2020-10-07] MEDS: VITAMIN D 1000 UNIT TAB PO SCH (07:57)
[2020-10-07] MEDS: APIXABAN 2.5 MG TABLET PO SCH ×2 (07:57→19:43)
[2020-10-07] MEDS: FOLIC ACID 1 MG TABLET PO SCH (07:57)
[2020-10-07] MEDS: AMIODARONE HCL 200 MG TAB PO SCH ×2 (07:58→19:44)
[2020-10-07] MEDS: [UNRECOGNIZED DRUG - OTHER] PO SCH (07:58)
[2020-10-07] MEDS: ENSURE ENLIVE 237 ML CAN PO SCH ×2 (07:58→19:44)
[2020-10-07] MEDS: CODEINE 30MG/APAP 300MG TAB PO PRN (11:55)
[2020-10-07] MEDS: LIDOCAINE 4% PATCH TOP SCH (13:44)
[2020-10-07] MEDS ORDERED: MAGNESIUM CITRATE 300 ML BOT PO SCH (14:00)
--- NOTE | 2020-10-07 17:52 | R.PN ---
PROGRESS NOTES ENCOUNTER DATE AND TIME: 10/07/2020 17:48 (CDT) NAME DEBI GARRETT DATE OF : 1935 DATE OF ADMISSION: 10/01/2020 13:02 (CDT) Hypotension, HyponatremiaCHIEF COMPLAINT: Debility, hypotension SUBJECTIVE: Pt denied any depression. Pt denied any Shortness of Breath. Labs reviewed. Na 139, prealbumin 22.4, WBC 5.1, Hgb 10.5, Esterase 1 +, WBC 10-20. Ambulated 1500' with standby assistance using a rollator. Followed 2-step commands with 50% accuracy with speech therapy. Up and down 15 steps with standby assistance. VITAL SIGNS Temperature: 97.0 F SBP/DBP: 131/71 Pulse: 53 Resp: 15 MEDICATION ALLERGIES: HYDROCODONE ENVIRONMENTAL ALLERGIES: None Known - Substance Allergies None Known - Other Allergies None Known NURSING: - Shower allowing shower ACTIVITIES OOB only with supervision THERAPIES: - Dietary and Nutrition Adequate Nutrition. Nutritional Education. Nutritional Supplements. PHYSICAL EXAM - Gen Alert and awake Lying in bed No apparent distress Oriented to: person, time, and place - Skin No skin breakdown. Normacephalic - Eyes No abnormalities - ENMT No abnormalities - Neck No abnormalities - CVS RRR - Chest No abnormalities - Resp No wheezing - Abd Soft - GI + bowel sounds No abnormalities - No abnormalities - Ext No significant edema - MSK 4+/5 weakness in both lower extremities. - Neuro No focal deficits - Psych Mild depression. ASSESSMENT: Pt. is a 85 yo Right-handed white female.On 09/28/[address] admitted to [facility] with d iagnosis Hypotension, Hyponatremia.Her impairment category is Debility 16 - Debility (16).Pre-morbid ly, Pt. was independent/mod-I in Transfers Control, Self-Care, Locomotion, Social Cognition, Sphincte r Control, and Communication; and she had good Balance and Safety Awareness.Currently, she has defici ts of Transfers Control, Balance, Locomotion, Safety Awareness, and Self-Care.Pt. is now referred to [facility] for acute in-patient rehabilitation in order to maximize patient's functional independence in activities of daily living, strength, ROM, and mobility.- Rehab Goal Patient has realistic goal of being discharged at assistance level 6-Francia to reside at Home with Romain shaw. MDM/PLAN: - Physical Therapy Gait dysfunction - to improve, our physical therapists will perform initial evaluation of pt's statu s upon admission and devise an individualized program for Gait Training, and Wheel Chair mobility Inability to transfer - to improve, our physical therapists will perform initial evaluation of pt's status upon admission and devise an individualized program for Bed mobility Need for home safety evaluation - to improve, our physical therapists will perform initial evaluatio n of pt's status upon admission and devise an individualized program for Home Evaluation Need in caregiver upon discharge - to improve, our physical therapists will perform initial evaluati on of pt's status upon admission and devise an individualized program for Caregiver Training Edema - to improve, our physical therapists will perform initial evaluation of pt's status upon admi ssion and devise an individualized program for Elevation Training, and Lymphedema Therapy New precaution - to improve, our physical therapists will perform initial evaluation of pt's status upon admission and devise an individualized program for Patient precaution education Poor balance - to improve, our physical therapists will perform initial evaluation of pt's status up on admission and devise an individualized program for Balance Training Weakness - to improve, our physical therapists will perform initial evaluation of pt's status upon a dmission and devise an individualized program for Aquatic Therapy, Neuromuscular Reeducation, and Str engthening Achieving independence - to improve, our physical therapists will perform initial evaluation of pt's status upon admission and devise an individualized program for Community Reintegration Activities - Occupational Therapy ADL deficits - to improve, our occupation therapists will perform initial evaluation of pt's status upon admission and devise an individualized program for Bathing, Bed mobility, Community Reintegratio n, Cooking, Dressing, Eating, Fine Motor Skills, Grooming, Homemaking, Kitchen Mobility, Laundry, Pat ient Education, Safety Awareness, Splinting - Positioning, Transfers(Toilet, Tub, Shower), and Wheel Chair Management Need for childcare director - to improve, our occupation therapists will perform initial evaluation of pt's status upon admission and devise an individualized program for Caregiver Training Weakness - to improve, our occupation therapists will perform initial evaluation of pt's status upon admission and devise an individualized program for Aquatic Therapy, Balance, Endurance, UE ROM, and UE strengthening - Other See attached MAR (Medication Administration Record) - Diet Type Continue Regular - Diet - Liquid Texture Continue Regular - Tube Feed Continue N/A - Diet - Solid Texture Continue Regular - Shower allowing shower FUNCTIONAL STATUS: UPDATED AT WEEKLY TEAM CONFERENCE - Walking Same score based on distance walked: 2(50-149ft) FUNCTIONAL STATUS: - Self-Care A. Eating Catalina B. Grooming Francia C. Bathing Catalina D. Dressing - Upper sup E. Dressing - Lower Catalina F. Toileting sup - Sphincter Control G. Bladder control Francia H. Bowel control Francia - Transfers Control I. Bed/Chair/Wheelchair Catalina J. Toilet Catalina K. Tub/Shower Catalina - Locomotion L. Walk/Wheelchair (B) sup M. Stairs Catalina - Communication N. Comprehension (B) sup O. Expression (B) sup - Social Cognition P. Social Interaction Francia Q. Problem Solving Catalina R. Memory Catalina - Endurance Good - Balance Good - Safety Awareness Fair QI SCORES: - Self-Care A. Eating 04-Supervision or touching assistance B. Oral hygiene 04-Supervision or touching assistance C. Toileting hygiene 03-Partial/moderate assistance E. Shower/bathe self 03-Partial/moderate assistance F. Upper body dressing 03-Partial/moderate assistance G. Lower body dressing 02-Substantial/maximal assistance H. Putting on/taking off footwear 01-Dependent - Mobility A. Roll left and right 04-Supervision or touching assistance B. Sit to lying 04-Supervision or touching assistance C. Lying to sitting on side of bed 04-Supervision or touching assistance D. Sit to stand 04-Supervision or touching assistance E. Chair/onc-tv-[id number] transfer 04-Supervision or touching assistance F. Toilet transfer 04-Supervision or touching assistance G. Car transfer 88-Not attempted due to medical condition or safety concerns I. Walk 10 feet 04-Supervision or touching assistance J. Walk 50 feet with two turns 88-Not attempted due to medical condition or safety concerns K. Walk 150 feet 88-Not attempted due to medical condition or safety concerns L. Walking 10 feet on uneven surfaces 88-Not attempted due to medical condition or safety concerns M. 1 step (curb) 88-Not attempted due to medical condition or safety concerns N. 4 steps 88-Not attempted due to medical condition or safety concerns O. 12 steps 88-Not attempted due to medical condition or safety concerns P. Picking up object 88-Not attempted due to medical condition or safety concerns - Bladder and Bowel Bladder continence 0-Always continent Bowel continence 0-Always continent - Endurance Poor - Balance Poor - Safety Awareness Poor CURRENT FUNC. DEFICITS: Self-Care, Mobility, Endurance, Balance, and Safety Awareness SIGNATURE PANEL: (CDT)
[2020-10-07] MEDS: POLYETHYL GLY 3350 17 GM/DOSE PO SCH (19:42)
[2020-10-07] MEDS: FENOFIBRATE 48 MG TAB PO SCH (19:43)
[2020-10-08] MEDS: PANTOPRAZOLE 40MG TABLET PO SCH (06:45)
[2020-10-08] MEDS: LEVOTHYROXINE SOD 0.088 MG TAB PO SCH (06:45)
[2020-10-08] MEDS: ENSURE ENLIVE 237 ML CAN PO SCH ×2 (08:00→19:36)
[2020-10-08] MEDS: DOCUSATE NA 100 MG CAP PO SCH (08:00)
[2020-10-08] MEDS: LIDOCAINE 4% PATCH TOP SCH (08:21)
[2020-10-08] MEDS: CLOPIDOGREL 75 MG TABLET PO SCH (08:22)
[2020-10-08] MEDS: VITAMIN D 1000 UNIT TAB PO SCH (08:22)
[2020-10-08] MEDS: CRANBERRY FRUIT EXTRACT 200 MG CAP PO SCH ×2 (08:22→19:35)
[2020-10-08] MEDS: PREGABALIN 50 MG CAP PO SCH ×3 (08:22→19:36)
[2020-10-08] MEDS: DULOXETINE 20 MG CAP PO SCH ×2 (08:22→19:35)
[2020-10-08] MEDS: FOLIC ACID 1 MG TABLET PO SCH (08:23)
[2020-10-08] MEDS: APIXABAN 2.5 MG TABLET PO SCH ×2 (08:23→19:35)
[2020-10-08] MEDS: AMIODARONE HCL 200 MG TAB PO SCH ×2 (08:23→19:35)
[2020-10-08] MEDS: THIAMINE HCL 100 MG TABLET PO SCH (08:24)
[2020-10-08] MEDS: ISOSORBIDE MONO SR 30 MG TAB PO SCH (08:24)
[2020-10-08] MEDS: AMLODIPINE 5 MG TAB PO SCH (08:24)
[2020-10-08] MEDS: ACETAMINOPHEN 500 MG TAB PO PRN (08:25)
[2020-10-08] MEDS: [UNRECOGNIZED DRUG - OTHER] PO SCH (08:27)
--- NOTE | 2020-10-08 09:49 | P.RH.PN ---
Estimated Length of Stay: 14 Expected Discharge Date: 10/13/20 Family Support: Yes Motivational Speaker Goal: Mobility, Transfers, Self Care Vital Signs: Last Vital Signs Temp 98 F 10/08/20 07:27 Pulse 56 10/08/20 08:24 Resp 16 10/08/20 07:27 BP 119/54 L 10/08/20 08:24 Pulse Ox 94 10/08/20 07:27 Laboratory: Laboratory Last Values WBC 5.10 K/uL (4.3-10.9) D 10/07/20 05:56 RBC 3.36 M/uL (3.86-4.86) L 10/07/20 05:56 Hgb 10.5 g/dL (12.0-15.0) L 10/07/20 05:56 Hct 30.4 % (36.0-45.0) L 10/07/20 05:56 MCV 90.5 fL (80-100) 10/07/20 05:56 MCH 31.3 pg (27.0-35.0) 10/07/20 05:56 MCHC 34.6 g/dL (32.0-36.0) 10/07/20 05:56 RDW 15.3 % (12.1-15.2) H 10/07/20 05:56 Plt Count 321 K/uL (152-406) 10/07/20 05:56 MPV 7.4 fL (7.6-11.3) L 10/07/20 05:56 Neutrophils % 69.6 % (41.7-73.7) 10/07/20 05:56 Lymphocytes % 17.7 % (15.3-44.8) 10/07/20 05:56 Monocytes % 10.3 % (3.3-12.3) 10/07/20 05:56 Eosinophils % 1.1 % (0-4.4) 10/07/20 05:56 Basophils % 1.3 % (0-1.3) 10/07/20 05:56 Absolute Neutrophils 3.6 K/uL (1.8-8.0) 10/07/20 05:56 Absolute Lymphocytes 0.9 K/uL (0.7-4.9) 10/07/20 05:56 Absolute Monocytes 0.5 K/uL (0.1-1.3) 10/07/20 05:56 Absolute Eosinophils 0.1 K/uL (0-0.5) 10/07/20 05:56 Absolute Basophils 0.1 K/uL (0-0.5) 10/07/20 05:56 Sodium 139 mmol/L (136-145) 10/07/20 05:56 Potassium 3.8 mmol/L (3.5-5.1) 10/07/20 05:56 Chloride 101 mmol/L (98-107) 10/07/20 05:56 Carbon Dioxide 33 mmol/L (21-32) H 10/07/20 05:56 BUN 16 mg/dL (7-18) 10/07/20 05:56 Creatinine 0.77 mg/dL (0.55-1.3) 10/07/20 05:56 Estimated GFR 71 mL/min (=/>90) L 10/07/20 05:56 Glucose 88 mg/dL (74-106) 10/07/20 05:56 Calcium 9.8 mg/dL (8.5-10.1) 10/07/20 05:56 Magnesium 2.3 mg/dL (1.8-2.4) 10/07/20 05:56 Albumin 3.2 g/dL (3.4-5.0) L 10/07/20 05:56 Prealbumin 22.4 mg/dL (20-40) 10/07/20 05:56 Urine Color Yellow (Yellow) 10/01/20 18:50 Urine Appearance Clear (Clear) 10/01/20 18:50 Urine pH 7.5 (5.0-7.0) H 10/01/20 18:50 Ur Specific [place] 1.010 (1.005-1.030) 10/01/20 18:50 Glucose (UA)(Auto) Trace (Negative) 10/01/20 18:50 Urine Ketones Negative (Negative) 10/01/20 18:50 Urine Blood Negative (Negative) 10/01/20 18:50 Urine Nitrite Negative (Negative) 10/01/20 18:50 Urine Bilirubin Negative (Negative) 10/01/20 18:50 Urine Urobilinogen 1.0 mg/dL (0.2-1.0) 10/01/20 18:50 Ur Leukocyte Esterase 1+ (Negative) H 10/01/20 18:50 Urine RBC None seen /HPF (NONE SEEN) 10/01/20 18:50 Urine WBC 10-20 /HPF (<5) H 10/01/20 18:50 Ur Squamous Epith Cells <5 /HPF (NONE SEEN) 10/01/20 18:50 Urine Bacteria <20 /HPF (<20) 10/01/20 18:50 Urine Culture Reflexed Not needed 10/01/20 18:50 Urine Total Protein Negative (Negative) 10/01/20 18:50 Weight: 109 lb 6.4 oz Wound Present: No Closed Surgical Incision Present: No Physician Update: Labs reviewed and are stable. Walking 500' with SBA. She has mod assistance level for cognitive functioning. She recalls some event more than action required to remain safe. Summary: Patient's care plan and thermometer maker goals have been reviewed and revised as necessary. Please see the Rehabilitation Signature page for all necessary signatures.
[2020-10-08] MEDS: POLYETHYL GLY 3350 17 GM/DOSE PO SCH (19:36)
[2020-10-08] MEDS: FENOFIBRATE 48 MG TAB PO SCH (19:36)
[2020-10-09 05:43] VITALS: BMI 23.7
[2020-10-09] MEDS: PANTOPRAZOLE 40MG TABLET PO SCH (06:59)
[2020-10-09] MEDS: LEVOTHYROXINE SOD 0.088 MG TAB PO SCH (06:59)
[2020-10-09] MEDS: ENSURE ENLIVE 237 ML CAN PO SCH ×2 (08:00→19:18)
[2020-10-09] MEDS: VITAMIN D 1000 UNIT TAB PO SCH (08:03)
[2020-10-09] MEDS: LIDOCAINE 4% PATCH TOP SCH (08:03)
[2020-10-09] MEDS: CRANBERRY FRUIT EXTRACT 200 MG CAP PO SCH ×2 (08:04→19:17)
[2020-10-09] MEDS: APIXABAN 2.5 MG TABLET PO SCH ×2 (08:04→19:17)
[2020-10-09] MEDS: DOCUSATE NA 100 MG CAP PO SCH (08:04)
[2020-10-09] MEDS: FOLIC ACID 1 MG TABLET PO SCH (08:04)
[2020-10-09] MEDS: CLOPIDOGREL 75 MG TABLET PO SCH (08:04)
[2020-10-09] MEDS: AMIODARONE HCL 200 MG TAB PO SCH ×2 (08:05→19:17)
[2020-10-09] MEDS: AMLODIPINE 5 MG TAB PO SCH (08:05)
[2020-10-09] MEDS: PREGABALIN 50 MG CAP PO SCH ×5 (08:05→20:00)
[2020-10-09] MEDS: ACETAMINOPHEN 500 MG TAB PO PRN (08:06)
[2020-10-09] MEDS: THIAMINE HCL 100 MG TABLET PO SCH (08:06)
[2020-10-09] MEDS: ISOSORBIDE MONO SR 30 MG TAB PO SCH (08:06)
[2020-10-09] MEDS: DULOXETINE 20 MG CAP PO SCH ×2 (08:06→19:17)
[2020-10-09] MEDS: [UNRECOGNIZED DRUG - OTHER] PO SCH (08:08)
[2020-10-09] MEDS ORDERED: PRIMIDONE 50 MG TAB PO SCH (10:00)
[2020-10-09 15:07] LABS: Absolute Lymphocytes (CBC) 0.7 K/uL (0.7-4.9); Basophils % 0.7 % (0-1.3); Hematocrit 28.4 % (36.0-45.0); Lymphocytes % 14.7 % (15.3-44.8); MPV 7.4 fL (7.6-11.3); RBC Red Blood Cell Count 3.11 M/uL (3.86-4.86)
[2020-10-09 15:20] LABS: Potassium 3.4 mmol/L (3.5-5.1)
[2020-10-09] MEDS: FERROUS SULFATE 325 MG TAB PO SCH (19:18)
[2020-10-09] MEDS: FENOFIBRATE 48 MG TAB PO SCH (19:18)
[2020-10-09] MEDS: POLYETHYL GLY 3350 17 GM/DOSE PO SCH (19:18)
[2020-10-10 06:23] LABS: Absolute Lymphocytes (CBC) 0.8 K/uL (0.7-4.9); Basophils % 0.8 % (0-1.3); Hematocrit 32.3 % (36.0-45.0); Lymphocytes % 16.7 % (15.3-44.8); MPV 7.1 fL (7.6-11.3); RBC Red Blood Cell Count 3.53 M/uL (3.86-4.86)
[2020-10-10 06:34] LABS: Potassium 3.7 mmol/L (3.5-5.1)
[2020-10-10] MEDS: PANTOPRAZOLE 40MG TABLET PO SCH (06:55)
[2020-10-10] MEDS: LEVOTHYROXINE SOD 0.088 MG TAB PO SCH (06:55)
[2020-10-10] MEDS: ENSURE ENLIVE 237 ML CAN PO SCH ×2 (08:00→19:32)
[2020-10-10] MEDS ORDERED: FERROUS SULFATE 325 MG TAB PO SCH (08:00)
[2020-10-10] MEDS: VITAMIN D 1000 UNIT TAB PO SCH (08:39)
[2020-10-10] MEDS: FOLIC ACID 1 MG TABLET PO SCH (08:40)
[2020-10-10] MEDS: APIXABAN 2.5 MG TABLET PO SCH ×2 (08:40→19:26)
[2020-10-10] MEDS: DOCUSATE NA 100 MG CAP PO SCH (08:40)
[2020-10-10] MEDS: CRANBERRY FRUIT EXTRACT 200 MG CAP PO SCH ×2 (08:40→19:25)
[2020-10-10] MEDS: AMIODARONE HCL 200 MG TAB PO SCH ×2 (08:40→19:26)
[2020-10-10] MEDS: FERROUS SULFATE 325 MG TAB PO SCH ×2 (08:40→19:26)
[2020-10-10] MEDS: CLOPIDOGREL 75 MG TABLET PO SCH (08:41)
[2020-10-10] MEDS: AMLODIPINE 5 MG TAB PO SCH (08:42)
[2020-10-10] MEDS: PREGABALIN 50 MG CAP PO SCH ×2 (08:42→19:26)
[2020-10-10] MEDS: PROPRANOLOL HCL 10 MG TAB PO SCH (08:43)
[2020-10-10] MEDS: DULOXETINE 20 MG CAP PO SCH ×2 (08:43→19:32)
[2020-10-10] MEDS: THIAMINE HCL 100 MG TABLET PO SCH (08:43)
[2020-10-10] MEDS: ISOSORBIDE MONO SR 30 MG TAB PO SCH (08:45)
[2020-10-10] MEDS: [UNRECOGNIZED DRUG - OTHER] PO SCH (09:33)
[2020-10-10] MEDS: LIDOCAINE 4% PATCH TOP SCH (09:33)
[2020-10-10] MEDS: FENOFIBRATE 48 MG TAB PO SCH (19:26)
[2020-10-10] MEDS: POLYETHYL GLY 3350 17 GM/DOSE PO SCH (19:32)
[2020-10-11] MEDS: LEVOTHYROXINE SOD 0.088 MG TAB PO SCH (06:19)
[2020-10-11] MEDS: PANTOPRAZOLE 40MG TABLET PO SCH (06:19)
[2020-10-11] MEDS: ACETAMINOPHEN 500 MG TAB PO PRN ×2 (06:25→19:08)
[2020-10-11] MEDS: LIDOCAINE 4% PATCH TOP SCH (06:56)
[2020-10-11] MEDS: [UNRECOGNIZED DRUG - OTHER] PO SCH (07:39)
[2020-10-11] MEDS: PROPRANOLOL HCL 10 MG TAB PO SCH (07:40)
[2020-10-11] MEDS: VITAMIN D 1000 UNIT TAB PO SCH (07:40)
[2020-10-11] MEDS: AMIODARONE HCL 200 MG TAB PO SCH ×2 (07:41→19:09)
[2020-10-11] MEDS: ISOSORBIDE MONO SR 30 MG TAB PO SCH (07:41)
[2020-10-11] MEDS: DOCUSATE NA 100 MG CAP PO SCH (07:41)
[2020-10-11] MEDS: FERROUS SULFATE 325 MG TAB PO SCH ×2 (07:41→19:08)
[2020-10-11] MEDS: CLOPIDOGREL 75 MG TABLET PO SCH (07:41)
[2020-10-11] MEDS: CRANBERRY FRUIT EXTRACT 200 MG CAP PO SCH ×2 (07:41→19:08)
[2020-10-11] MEDS: FOLIC ACID 1 MG TABLET PO SCH (07:42)
[2020-10-11] MEDS: THIAMINE HCL 100 MG TABLET PO SCH (07:42)
[2020-10-11] MEDS: AMLODIPINE 5 MG TAB PO SCH (07:42)
[2020-10-11] MEDS: PREGABALIN 50 MG CAP PO SCH ×2 (07:42→19:09)
[2020-10-11] MEDS: DULOXETINE 20 MG CAP PO SCH ×2 (07:42→19:08)
[2020-10-11] MEDS: APIXABAN 2.5 MG TABLET PO SCH ×2 (07:42→19:09)
[2020-10-11] MEDS: ENSURE ENLIVE 237 ML CAN PO SCH ×2 (07:43→19:09)
--- NOTE | 2020-10-11 17:53 | R.PN ---
PROGRESS NOTES ENCOUNTER DATE AND TIME: 10/11/2020 17:48 (CDT) NAME DEBI GARRETT DATE OF : 1935 DATE OF ADMISSION: 10/01/2020 13:02 (CDT) Hypotension, HyponatremiaCHIEF COMPLAINT: Debility, hypotension SUBJECTIVE: Pt denied any depression. Pt denied any Shortness of Breath. Labs reviewed. Na 137, prealbumin 22.4, WBC 4.8, Hgb 11.4, Esterase 1 +, WBC 10-20. Ambulated 1750' with independence using a rollator. Followed 2-step commands with 50% accuracy with speech therapy. Up and down 15 steps with standby assistance. VITAL SIGNS Temperature: 97.0 F SBP/DBP: 145/54 Pulse: 56 Resp: 16 MEDICATION ALLERGIES: HYDROCODONE ENVIRONMENTAL ALLERGIES: None Known - Substance Allergies None Known - Other Allergies None Known NURSING: - Shower allowing shower ACTIVITIES OOB only with supervision THERAPIES: - Dietary and Nutrition Adequate Nutrition. Nutritional Education. Nutritional Supplements. PHYSICAL EXAM - Gen Alert and awake Lying in bed No apparent distress Oriented to: person, time, and place - Skin No skin breakdown. Normacephalic - Eyes No abnormalities - ENMT No abnormalities - Neck No abnormalities - CVS RRR - Chest No abnormalities - Resp No wheezing - Abd Soft - GI + bowel sounds No abnormalities - No abnormalities - Ext No significant edema - MSK 4+/5 weakness in both lower extremities. - Neuro No focal deficits - Psych Mild depression. ASSESSMENT: Pt. is a 85 yo Right-handed white female.On 09/28/2020 she was admitted to [facility] with d iagnosis Hypotension, Hyponatremia.Her impairment category is Debility 16 - Debility (16).Pre-morbid ly, Pt. was independent/mod-I in Transfers Control, Self-Care, Locomotion, Social Cognition, Sphincte r Control, and Communication; and she had good Balance and Safety Awareness.Currently, she has defici ts of Transfers Control, Balance, Locomotion, Safety Awareness, and Self-Care.Pt. is now referred to [facility] for acute in-patient rehabilitation in order to maximize patient's functional independence in activities of daily living, strength, ROM, and mobility.- Rehab Goal Patient has realistic goal of being discharged at assistance level 6-Francia to reside at Home with Romain shaw. MDM/PLAN: - Physical Therapy Gait dysfunction - to improve, our physical therapists will perform initial evaluation of pt's statu s upon admission and devise an individualized program for Gait Training, and Wheel Chair mobility Inability to transfer - to improve, our physical therapists will perform initial evaluation of pt's status upon admission and devise an individualized program for Bed mobility Need for home safety evaluation - to improve, our physical therapists will perform initial evaluatio n of pt's status upon admission and devise an individualized program for Home Evaluation Need in caregiver upon discharge - to improve, our physical therapists will perform initial evaluati on of pt's status upon admission and devise an individualized program for Caregiver Training Edema - to improve, our physical therapists will perform initial evaluation of pt's status upon admi ssion and devise an individualized program for Elevation Training, and Lymphedema Therapy New precaution - to improve, our physical therapists will perform initial evaluation of pt's status upon admission and devise an individualized program for Patient precaution education Poor balance - to improve, our physical therapists will perform initial evaluation of pt's status up on admission and devise an individualized program for Balance Training Weakness - to improve, our physical therapists will perform initial evaluation of pt's status upon a dmission and devise an individualized program for Aquatic Therapy, Neuromuscular Reeducation, and Str engthening Achieving independence - to improve, our physical therapists will perform initial evaluation of pt's status upon admission and devise an individualized program for Community Reintegration Activities - Occupational Therapy ADL deficits - to improve, our occupation therapists will perform initial evaluation of pt's status upon admission and devise an individualized program for Bathing, Bed mobility, Community Reintegratio n, Cooking, Dressing, Eating, Fine Motor Skills, Grooming, Homemaking, Kitchen Mobility, Laundry, Pat ient Education, Safety Awareness, Splinting - Positioning, Transfers(Toilet, Tub, Shower), and Wheel Chair Management Need for medicare biller - to improve, our occupation therapists will perform initial evaluation of pt's status upon admission and devise an individualized program for Caregiver Training Weakness - to improve, our occupation therapists will perform initial evaluation of pt's status upon admission and devise an individualized program for Aquatic Therapy, Balance, Endurance, UE ROM, and UE strengthening - Other See attached MAR (Medication Administration Record) - Diet Type Continue Regular - Diet - Liquid Texture Continue Regular - Tube Feed Continue N/A - Diet - Solid Texture Continue Regular - Shower allowing shower FUNCTIONAL STATUS: UPDATED AT WEEKLY TEAM CONFERENCE - Walking Same score based on distance walked: 2(50-149ft) FUNCTIONAL STATUS: - Self-Care A. Eating Catalina B. Grooming Francia C. Bathing Catalina D. Dressing - Upper sup E. Dressing - Lower Catalina F. Toileting sup - Sphincter Control G. Bladder control Francia H. Bowel control Francia - Transfers Control I. Bed/Chair/Wheelchair Catalina J. Toilet Catalina K. Tub/Shower Catalina - Locomotion L. Walk/Wheelchair (B) sup M. Stairs Catalina - Communication N. Comprehension (B) sup O. Expression (B) sup - Social Cognition P. Social Interaction Francia Q. Problem Solving Catalina R. Memory Catalina - Endurance Good - Balance Good - Safety Awareness Fair QI SCORES: - Self-Care A. Eating 04-Supervision or touching assistance B. Oral hygiene 04-Supervision or touching assistance C. Toileting hygiene 03-Partial/moderate assistance E. Shower/bathe self 03-Partial/moderate assistance F. Upper body dressing 03-Partial/moderate assistance G. Lower body dressing 02-Substantial/maximal assistance H. Putting on/taking off footwear 01-Dependent - Mobility A. Roll left and right 04-Supervision or touching assistance B. Sit to lying 04-Supervision or touching assistance C. Lying to sitting on side of bed 04-Supervision or touching assistance D. Sit to stand 04-Supervision or touching assistance E. Chair/kaw-sq-ktghj transfer 04-Supervision or touching assistance F. Toilet transfer 04-Supervision or touching assistance G. Car transfer 88-Not attempted due to medical condition or safety concerns I. Walk 10 feet 04-Supervision or touching assistance J. Walk 50 feet with two turns 88-Not attempted due to medical condition or safety concerns K. Walk 150 feet 88-Not attempted due to medical condition or safety concerns L. Walking 10 feet on uneven surfaces 88-Not attempted due to medical condition or safety concerns M. 1 step (curb) 88-Not attempted due to medical condition or safety concerns N. 4 steps 88-Not attempted due to medical condition or safety concerns O. 12 steps 88-Not attempted due to medical condition or safety concerns P. Picking up object 88-Not attempted due to medical condition or safety concerns - Bladder and Bowel Bladder continence 0-Always continent Bowel continence 0-Always continent - Endurance Poor - Balance Poor - Safety Awareness Poor CURRENT FUNC. DEFICITS: Self-Care, Mobility, Endurance, Balance, and Safety Awareness SIGNATURE PANEL: (CDT)
[2020-10-11] MEDS: POLYETHYL GLY 3350 17 GM/DOSE PO SCH (19:08)
[2020-10-11] MEDS: FENOFIBRATE 48 MG TAB PO SCH (19:08)
[2020-10-12] MEDS: PANTOPRAZOLE 40MG TABLET PO SCH (06:18)
[2020-10-12] MEDS: LEVOTHYROXINE SOD 0.088 MG TAB PO SCH (06:18)
[2020-10-12] MEDS: LIDOCAINE 4% PATCH TOP SCH (06:19)
[2020-10-12] MEDS: [UNRECOGNIZED DRUG - OTHER] PO SCH (07:40)
[2020-10-12] MEDS: AMLODIPINE 5 MG TAB PO SCH (07:41)
[2020-10-12] MEDS: PREGABALIN 50 MG CAP PO SCH ×2 (07:41→20:34)
[2020-10-12] MEDS: ISOSORBIDE MONO SR 30 MG TAB PO SCH (07:41)
[2020-10-12] MEDS: DOCUSATE NA 100 MG CAP PO SCH (07:42)
[2020-10-12] MEDS: PROPRANOLOL HCL 10 MG TAB PO SCH (07:42)
[2020-10-12] MEDS: DULOXETINE 20 MG CAP PO SCH ×2 (07:42→20:34)
[2020-10-12] MEDS: CRANBERRY FRUIT EXTRACT 200 MG CAP PO SCH ×2 (07:42→20:35)
[2020-10-12] MEDS: AMIODARONE HCL 200 MG TAB PO SCH ×2 (07:43→20:34)
[2020-10-12] MEDS: THIAMINE HCL 100 MG TABLET PO SCH (07:43)
[2020-10-12] MEDS: VITAMIN D 1000 UNIT TAB PO SCH (07:43)
[2020-10-12] MEDS: ENSURE ENLIVE 237 ML CAN PO SCH ×3 (07:44→20:43)
[2020-10-12] MEDS: FOLIC ACID 1 MG TABLET PO SCH (07:44)
[2020-10-12] MEDS: FERROUS SULFATE 325 MG TAB PO SCH ×2 (07:44→20:34)
[2020-10-12] MEDS: APIXABAN 2.5 MG TABLET PO SCH ×2 (07:44→20:34)
[2020-10-12] MEDS: CLOPIDOGREL 75 MG TABLET PO SCH (07:44)
--- NOTE | 2020-10-12 17:22 | R.PN ---
PROGRESS NOTES ENCOUNTER DATE AND TIME: 10/12/2020 17:18 (CDT) NAME DEBI GARRETT DATE OF : 1935 DATE OF ADMISSION: 10/01/2020 13:02 (CDT) Hypotension, HyponatremiaCHIEF COMPLAINT: Debility, hypotension SUBJECTIVE: Pt denied any depression. Pt denied any Shortness of Breath. Labs reviewed. Na 137, prealbumin 22.4, WBC 4.8, Hgb 11.4, Esterase 1 +, WBC 10-20. Ambulated 1500' with independence using a rollator. Up and down 15 steps with standby assistance. Followed 2-step commands with 50% accuracy with speech therapy. Up and down 15 steps with standby assistance. VITAL SIGNS Temperature: 97.4 F SBP/DBP: 133/65 Pulse: 51 Resp: 16 MEDICATION ALLERGIES: HYDROCODONE ENVIRONMENTAL ALLERGIES: None Known - Substance Allergies None Known - Other Allergies None Known NURSING: - Shower allowing shower ACTIVITIES OOB only with supervision THERAPIES: - Dietary and Nutrition Adequate Nutrition. Nutritional Education. Nutritional Supplements. PHYSICAL EXAM - Gen Alert and awake Lying in bed No apparent distress Oriented to: person, time, and place - Skin No skin breakdown. Normacephalic - Eyes No abnormalities - ENMT No abnormalities - Neck No abnormalities - CVS RRR - Chest No abnormalities - Resp No wheezing - Abd Soft - GI + bowel sounds No abnormalities - No abnormalities - Ext No significant edema - MSK 4+/5 weakness in both lower extremities. - Neuro No focal deficits - Psych Mild depression. ASSESSMENT: Pt. is a 85 yo Right-handed white female.On 09/28/2020 she was admitted to [facility] with d iagnosis Hypotension, Hyponatremia.Her impairment category is Debility 16 - Debility (16).Pre-morbid ly, Pt. was independent/mod-I in Transfers Control, Self-Care, Locomotion, Social Cognition, Sphincte r Control, and Communication; and she had good Balance and Safety Awareness.Currently, she has defici ts of Transfers Control, Balance, Locomotion, Safety Awareness, and Self-Care.Pt. is now referred to [facility] for acute in-patient rehabilitation in order to maximize patient's functional independence in activities of daily living, strength, ROM, and mobility.- Rehab Goal Patient has realistic goal of being discharged at assistance level 6-Francia to reside at Home with Romain valeria. MDM/PLAN: - Physical Therapy Gait dysfunction - to improve, our physical therapists will perform initial evaluation of pt's statu s upon admission and devise an individualized program for Gait Training, and Wheel Chair mobility Inability to transfer - to improve, our physical therapists will perform initial evaluation of pt's status upon admission and devise an individualized program for Bed mobility Need for home safety evaluation - to improve, our physical therapists will perform initial evaluatio n of pt's status upon admission and devise an individualized program for Home Evaluation Need in caregiver upon discharge - to improve, our physical therapists will perform initial evaluati on of pt's status upon admission and devise an individualized program for Caregiver Training Edema - to improve, our physical therapists will perform initial evaluation of pt's status upon admi ssion and devise an individualized program for Elevation Training, and Lymphedema Therapy New precaution - to improve, our physical therapists will perform initial evaluation of pt's status upon admission and devise an individualized program for Patient precaution education Poor balance - to improve, our physical therapists will perform initial evaluation of pt's status up on admission and devise an individualized program for Balance Training Weakness - to improve, our physical therapists will perform initial evaluation of pt's status upon a dmission and devise an individualized program for Aquatic Therapy, Neuromuscular Reeducation, and Str engthening Achieving independence - to improve, our physical therapists will perform initial evaluation of pt's status upon admission and devise an individualized program for Community Reintegration Activities - Occupational Therapy ADL deficits - to improve, our occupation therapists will perform initial evaluation of pt's status upon admission and devise an individualized program for Bathing, Bed mobility, Community Reintegratio n, Cooking, Dressing, Eating, Fine Motor Skills, Grooming, Homemaking, Kitchen Mobility, Laundry, Pat ient Education, Safety Awareness, Splinting - Positioning, Transfers(Toilet, Tub, Shower), and Wheel Chair Management Need for rn care manager - to improve, our occupation therapists will perform initial evaluation of pt's status upon admission and devise an individualized program for Caregiver Training Weakness - to improve, our occupation therapists will perform initial evaluation of pt's status upon admission and devise an individualized program for Aquatic Therapy, Balance, Endurance, UE ROM, and UE strengthening - Other See attached MAR (Medication Administration Record) - Diet Type Continue Regular - Diet - Liquid Texture Continue Regular - Tube Feed Continue N/A - Diet - Solid Texture Continue Regular - Shower allowing shower FUNCTIONAL STATUS: UPDATED AT WEEKLY TEAM CONFERENCE - Walking Same score based on distance walked: 2(50-149ft) FUNCTIONAL STATUS: - Self-Care A. Eating Catalina B. Grooming Francia C. Bathing Catalina D. Dressing - Upper sup E. Dressing - Lower Catalina F. Toileting sup - Sphincter Control G. Bladder control Francia H. Bowel control Francia - Transfers Control I. Bed/Chair/Wheelchair Catalina J. Toilet Catalina K. Tub/Shower Catalina - Locomotion L. Walk/Wheelchair (B) sup M. Stairs Catalina - Communication N. Comprehension (B) sup O. Expression (B) sup - Social Cognition P. Social Interaction Francia Q. Problem Solving Catalina R. Memory Catalina - Endurance Good - Balance Good - Safety Awareness Fair QI SCORES: - Self-Care A. Eating 04-Supervision or touching assistance B. Oral hygiene 04-Supervision or touching assistance C. Toileting hygiene 03-Partial/moderate assistance E. Shower/bathe self 03-Partial/moderate assistance F. Upper body dressing 03-Partial/moderate assistance G. Lower body dressing 02-Substantial/maximal assistance H. Putting on/taking off footwear 01-Dependent - Mobility A. Roll left and right 04-Supervision or touching assistance B. Sit to lying 04-Supervision or touching assistance C. Lying to sitting on side of bed 04-Supervision or touching assistance D. Sit to stand 04-Supervision or touching assistance E. Chair/[id number] transfer 04-Supervision or touching assistance F. Toilet transfer 04-Supervision or touching assistance G. Car transfer 88-Not attempted due to medical condition or safety concerns I. Walk 10 feet 04-Supervision or touching assistance J. Walk 50 feet with two turns 88-Not attempted due to medical condition or safety concerns K. Walk 150 feet 88-Not attempted due to medical condition or safety concerns L. Walking 10 feet on uneven surfaces 88-Not attempted due to medical condition or safety concerns M. 1 step (curb) 88-Not attempted due to medical condition or safety concerns N. 4 steps 88-Not attempted due to medical condition or safety concerns O. 12 steps 88-Not attempted due to medical condition or safety concerns P. Picking up object 88-Not attempted due to medical condition or safety concerns - Bladder and Bowel Bladder continence 0-Always continent Bowel continence 0-Always continent - Endurance Poor - Balance Poor - Safety Awareness Poor CURRENT FUNC. DEFICITS: Self-Care, Mobility, Endurance, Balance, and Safety Awareness SIGNATURE PANEL: (CDT)
[2020-10-12] MEDS: CODEINE 30MG/APAP 300MG TAB PO PRN (20:35)
[2020-10-12] MEDS: POLYETHYL GLY 3350 17 GM/DOSE PO SCH (20:44)
[2020-10-12] MEDS: FENOFIBRATE 48 MG TAB PO SCH (20:44)
[2020-10-13 00:39] VITALS: O2SAT 92
[2020-10-13] MEDS: ACETAMINOPHEN 500 MG TAB PO PRN (05:48)
[2020-10-13] MEDS: PANTOPRAZOLE 40MG TABLET PO SCH (06:34)
[2020-10-13] MEDS: LEVOTHYROXINE SOD 0.088 MG TAB PO SCH (06:34)
[2020-10-13 06:57] VITALS: TEMP 97.2
[2020-10-13] MEDS: LIDOCAINE 4% PATCH TOP SCH (08:25)
[2020-10-13] MEDS: CLOPIDOGREL 75 MG TABLET PO SCH (08:26)
[2020-10-13] MEDS: PREGABALIN 50 MG CAP PO SCH (08:26)
[2020-10-13] MEDS: CRANBERRY FRUIT EXTRACT 200 MG CAP PO SCH (08:26)
[2020-10-13] MEDS: FOLIC ACID 1 MG TABLET PO SCH (08:27)
[2020-10-13] MEDS: AMIODARONE HCL 200 MG TAB PO SCH (08:27)
[2020-10-13] MEDS: ISOSORBIDE MONO SR 30 MG TAB PO SCH (08:28)
[2020-10-13] MEDS: DULOXETINE 20 MG CAP PO SCH (08:28)
[2020-10-13] MEDS: THIAMINE HCL 100 MG TABLET PO SCH (08:28)
[2020-10-13] MEDS: PROPRANOLOL HCL 10 MG TAB PO SCH (08:29)
[2020-10-13] MEDS: VITAMIN D 1000 UNIT TAB PO SCH (08:30)
[2020-10-13] MEDS: APIXABAN 2.5 MG TABLET PO SCH (08:30)
[2020-10-13] MEDS: [UNRECOGNIZED DRUG - OTHER] PO SCH (08:31)
[2020-10-13] MEDS: FERROUS SULFATE 325 MG TAB PO SCH (08:31)
[2020-10-13] MEDS: DOCUSATE NA 100 MG CAP PO SCH (08:31)
[2020-10-13] MEDS: ENSURE ENLIVE 237 ML CAN PO SCH (09:33)
[2020-10-13] MEDS: AMLODIPINE 5 MG TAB PO SCH (10:04)
[2020-10-13 10:05] VITALS: BP 146/64
--- NOTE | 2020-10-15 13:19 | R.DS ---
DISCHARGE SUMMARY FACILITY [facility] MR# [id number] NAME DEBI GARRETT ADDRESS [address] [facility] [place] [address] PHONE DATE OF 1935 AGE 85 SSN# [id number] GENDER Female DEXTERITY Right-handed MARITAL STATUS RACE White ENCOUNTER PHYSICIAN Dr. Rico Gonsalez M.D. REFERRING DOCTOR DR. ESTELLA HERRERA REFERRING FACILITY Doctor Office DISCHARGE DIAGNOSIS: - Debility 16 - Debility (16) Hypotension, Hyponatremia. DATE OF ADMISSION 10/01/2020 13:02 (CDT) MEDICATION ALLERGIES: HYDROCODONE ENVIRONMENTAL ALLERGIES: None Known - Substance Allergies None Known - Other Allergies None Known DISCHARGE MEDICATIONS: Other- ContinueSee attached MAR (Medication Administration Record). NURSING: - Shower allowing shower ACTIVITIES OOB only with supervision THERAPIES: - Dietary and Nutrition Adequate Nutrition Nutritional Education Nutritional Supplements HISTORY OF PRESENT ILLNESS: Pt. is a 85 yo Right-handed white female.On 09/28/2020 she was admitted to [facility] with d iagnosis Hypotension, Hyponatremia.Her impairment category is Debility 16 - Debility (16).Pre-morbid ly, Pt. was independent/mod-I in Transfers Control, Self-Care, Locomotion, Social Cognition, Sphincte r Control, and Communication; and she had good Balance and Safety Awareness.Currently, she has defici ts of Transfers Control, Balance, Locomotion, Safety Awareness, and Self-Care.Pt. is now referred to [facility] for acute in-patient rehabilitation in order to maximize patient's functional independence in activities of daily living, strength, ROM, and mobility.- Rehab Goal Patient has realistic goal of being discharged at assistance level 6-Francia to reside at Home with Romain valeria. HOSPITAL COURSE: DIET - LIQUID TEXTURE: On 09/29/2020 Pt was upgraded to Regular Diet - Liquid Texture. DIET - SOLID TEXTURE: On 09/29/2020 Pt was upgraded to Regular Diet - Solid Texture. DIET TYPE: On 09/29/2020 Pt was upgraded to Regular Diet Type. TUBE FEED: On 09/29/2020 Pt was changed to N/A Tube Feed. DISCHARGE PHYSICAL EXAM - Gen Alert and awake Lying in bed No apparent distress Oriented to: person, time, and place - Skin No skin breakdown. Normacephalic - Eyes No abnormalities - ENMT No abnormalities - Neck No abnormalities - CVS RRR - Chest No abnormalities - Resp No wheezing - Abd Soft - GI + bowel sounds No abnormalities - No abnormalities - Ext No significant edema - MSK 4+/5 weakness in both lower extremities. - Neuro No focal deficits - Psych Mild depression. FUNCTIONAL STATUS: - Self-Care A. Eating 6-Francia B. Grooming 6-Francia C. Bathing 5-sup D. Dressing - Upper 5-sup E. Dressing - Lower 5-sup F. Toileting 5-sup - Sphincter Control G. Bladder control 6-Francia H. Bowel control 6-Francia - Transfers Control I. Bed/Chair/Wheelchair 5-sup J. Toilet 5-sup K. Tub/Shower 5-sup - Locomotion L. Walk/Wheelchair (B) 5-sup M. Stairs 5-sup - Communication N. Comprehension (B) 5-sup O. Expression (B) 5-sup - Social Cognition P. Social Interaction 6-Francia Q. Problem Solving 5-sup R. Memory 5-sup - Endurance Good - Balance Good - Safety Awareness Fair QI SCORES: - Self-Care A. Eating 04-Supervision or touching assistance B. Oral hygiene 04-Supervision or touching assistance C. Toileting hygiene 03-Partial/moderate assistance E. Shower/bathe self 03-Partial/moderate assistance F. Upper body dressing 03-Partial/moderate assistance G. Lower body dressing 02-Substantial/maximal assistance H. Putting on/taking off footwear 01-Dependent - Mobility A. Roll left and right 04-Supervision or touching assistance B. Sit to lying 04-Supervision or touching assistance C. Lying to sitting on side of bed 04-Supervision or touching assistance D. Sit to stand 04-Supervision or touching assistance E. Chair/[id number]-tz-[id number] transfer 04-Supervision or touching assistance F. Toilet transfer 04-Supervision or touching assistance G. Car transfer 88-Not attempted due to medical condition or safety concerns I. Walk 10 feet 04-Supervision or touching assistance J. Walk 50 feet with two turns 88-Not attempted due to medical condition or safety concerns K. Walk 150 feet 88-Not attempted due to medical condition or safety concerns L. Walking 10 feet on uneven surfaces 88-Not attempted due to medical condition or safety concerns M. 1 step (curb) 88-Not attempted due to medical condition or safety concerns N. 4 steps 88-Not attempted due to medical condition or safety concerns O. 12 steps 88-Not attempted due to medical condition or safety concerns P. Picking up object 88-Not attempted due to medical condition or safety concerns - Bladder and Bowel Bladder continence 0-Always continent Bowel continence 0-Always continent - Endurance Poor - Balance Poor - Safety Awareness Poor DISCHARGE INSTRUCTIONS: - N/A Plavix 75 mg daily. DISCHARGE PLAN, FOLLOW UP CARE PROVISIONS: - Estimated Length of Stay (days) 13. - Consensus on plan Discharge plan has been discussed with primary caregiver. Patient/Family is in agreement with the quentin n. Primary caregiver is in agreement with the plan. - Patient/Family Goals Return home with assistance. - Planned Living Setting Upon Discharge Home, to live alone. SIGNATURE PANEL: (CDT)
== END 2020-10-13 13:30 | disposition home health service (06) | DRG 315 ==
LOC: 5TH 10-01 15:17
PROVIDERS: ADMIT Psychiatry & Neurology Neurology with Special Qualifications in Child Neurology; ATTEND Psychiatry & Neurology Neurology with Special Qualifications in Child Neurology
DX: I95.9 Hypotension, unspecified (principal); E87.1 Hypo-osmolality and hyponatremia; R53.81 Other malaise; G20 Parkinson's disease; I48.91 Unspecified atrial fibrillation; I25.10 Atherosclerotic heart disease of native coronary artery without angina pectoris; Z89.611 Acquired absence of right leg above knee
CPT/HCPCS: 36415; 80048; 81001; 82040; 83735; 84134; 85025; 87086; 87088; 92523; 92610; 97110; 97112; 97116; 97127; 97161; 97530; 97542

== ENCOUNTER 2020-10-18 09:45 | Emergency (ER) | payer OTHER ==
--- OUTSIDE RECORDS SUMMARY | 2020-10-18 09:52 | XMS REPORT | Continuity of Care Document ---
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 2019-09-25 04:50:00 Test Item Value Reference Range Interpretation Comments Glucose Level (test code = 2345-7) 102 mg/dL [facility] or plasma calcium measurement (mass/volume) 2019-09-25 04:50:00 Test Item Value Reference Range Interpretation Comments Calcium Level (test code = 48604-8) 9.5 mg/dL [facility] or plasma creatine kinase MB measurement (mass/volume)2019-09-25 04:50:00 Test Item Value Reference Range Interpretation Comments Creatine Kinase MB (test code = 3.3 ng/mL 66648-0) [facility] or plasma C reactive protein measurement (mass/volume)2019-09-25 04:50:00 Test Item Value Reference Range Interpretation Comments C-Reactive Protein, Quantitative < 0.29 mg/dL (test code = 1988-5) [facility] leukocyte count (number/volume) 2019-09-25 04:50:00 Test Item Value Reference Range Interpretation Comments White Blood Count (test code = 7.7 10*3/uL 6690-2) [facility] automated count (number/volume) 2019-09-25 04:50:00 Test Item Value Reference Range Interpretation Comments Red Blood Count (test code = 4.20 10*6/uL 789-8) [facility]Blood hemoglobin measurement (mass/volume) 2019-09-25 04:50:00 Test Item Value Reference Range Interpretation Comments Hemoglobin (test code = 718-7) 12.3 g/dL [facility] HospitalAutomated blood hematocrit (volume fraction) 2019-09-25 04:50:00 Test Item Value Reference Range Interpretation Comments Hematocrit (test code = 4544-3) 38.4 % [facility] HospitalAutomated erythrocyte mean corpuscular volume (MCV) ppzgkdzormp6112-15-07 04:50:00 Test Item Value Reference Range Interpretation Comments Mean Corpuscular Volume (test code = 91.4 fL 787-2) [facility] HospitalAutomated erythrocyte mean corpuscular hemoglobin (mass per erythrocyte)2019-09-25 04:50:00 Test Item Value Reference Range Interpretation Comments Mean Corpuscular Hemoglobin (test 29.3 pg code = 785-6) [facility] HospitalAutomated erythrocyte mean corpuscular hemoglobin concentration (MCHC) measurement ([id number] 04:50:00 Test Item Value Reference Range Interpretation Comments Mean Corpuscular Hemoglobin Concent 32.0 % (test code = 786-4) [facility] HospitalAutomated erythrocyte distribution width ratio 2019-09-25 04:50:00 Test Item Value Reference Range Interpretation Comments Red Cell Distribution Width (test code 13.0 % = 788-0) [facility] HospitalAutomated blood platelet count (count/volume) 2019-09-25 04:50:00 Test Item Value Reference Range Interpretation Comments Platelet Count (test code = 287 10*3/uL 777-3) [facility] platelet mean volume measurement 2019-09-25 04:50:00 Test Item Value Reference Range Interpretation Comments Mean Platelet Volume (test code = 10.2 fL 18802-4) [facility] HospitalAutomated blood neutrophil count as percentage of total hlzgqqvufs3768-72-63 04:50:00 Test Item Value Reference Range Interpretation Comments Neutrophils (%) (Auto) (test code = 67.2 % 770-8) [facility] immature granulocyte count as percentage of total zvkfvjtwmu8735-71-18 04:50:00 Test Item Value Reference Range Interpretation Comments Immature Granulocyte % (Auto) (test 0.50 % code = 99403-1) [facility] lymphocyte count as percentage of total zssuwwealo8476-50-54 04:50:00 Test Item Value Reference Range Interpretation Comments Lymphocytes (%) (Auto) (test code = 20.4 % 736-9) [facility] count as percentage of total mcyusmbvzt8747-14-65 04:50:00 Test Item Value Reference Range Interpretation Comments Monocytes (%) (Auto) (test code = 8.0 % 5905-5) [facility] eosinophil count as percentage of total xmyccihujr0427-62-55 04:50:00 Test Item Value Reference Range Interpretation Comments Eosinophils (%) (Auto) (test code = 3.1 % 713-8) [facility] basophil count as percentage of total nblpkeurtd5704-04-98 04:50:00 Test Item Value Reference Range Interpretation Comments Basophils (%) (Auto) (test code = 0.8 % 706-2) [facility] nucleated erythrocyte count as percentage of total nvvifhhxkr4318-12-81 04:50:00 Test Item Value Reference Range Interpretation Comments Nucleated Red Blood Cells % (test code 0.0 % = 74811-0) [facility] neutrophil count (number/volume) 2019-09-25 04:50:00 Test Item Value Reference Range Interpretation Comments Neutrophils # (Auto) (test code = 5.2 10*3/uL 751-8) [facility] immature granulocyte count as percentage of total wjyopxutfn9301-95-85 04:50:00 Test Item Value Reference Range Interpretation Comments Immature Granulocyte # (Auto) (test 0.0400 code = 03747-1) [facility] lymphocyte count (number/volume) 2019-09-25 04:50:00 Test Item Value Reference Range Interpretation Comments Lymphocytes # (Auto) (test code = 1.6 10*3/uL 731-0) [facility] monocytes automated count (number/volume) 2019-09-25 04:50:00 Test Item Value Reference Range Interpretation Comments Monocytes # (Auto) (test code = 0.6 10*3/uL 742-7) [facility] eosinophil kxjwz8176-41-79 04:50:00 Test Item Value Reference Range Interpretation Comments Eosinophils # (Auto) (test code = 0.2 10*3/uL 711-2) [facility] basophil count (number/volume) 2019-09-25 04:50:00 Test Item Value Reference Range Interpretation Comments Basophils # (Auto) (test code = 0.1 10*3/uL 704-7) [facility] leukocyte count corrected for nucleated vwhyywujjvww1209-54-75 04:50:00 Test Item Value Reference Range Interpretation Comments Nucleated Red Blood Cells # (test code 0.000 = 67015-6) [facility] erythrocyte sedimentation rate (ESR) measurement by photometricmethod (length/m7691-48-06 04:50:00 Test Item Value Reference Range Interpretation Comments Erythrocyte Sedimentation Rate (test 7 mm/h code = 63505-5) [facility] or plasma magnesium measurement (mass/volume) 2019-09-24 22:42:00 Test Item Value Reference Range Interpretation Comments Magnesium Level (test code = 2.3 mg/dL 21761-1) [facility] total bilirubin measurement (mass/volume)2019-09-24 22:42:00 Test Item Value Reference Range Interpretation Comments Total Bilirubin (test code = 0.4 mg/dL 1974-2) [facility] or plasma aspartate aminotransferase measurement (enzymatic activity/volume)2019-09-24 22:42:00 Test Item Value Reference Range Interpretation Comments Aspartate Amino Transf (AST/SGOT) 27 U/L (test code = 1920-8) [facility] or plasma alanine aminotransferase measurement (enzymatic activity/volume)2019-09-24 [...] Phosphatase (test code = 53 U/L 6768-6) [facility] HospitalLactate ser/iytn4418-64-30 22:42:00 Test Item Value Reference Range Interpretation Comments Lactic Acid Level (test code = 1.0 mmol/L 2524-7) [facility] or plasma creatine kinase measurement (enzymatic activity/volume)2019-09-24 22:42:00 Test Item Value Reference Range Interpretation Comments Total Creatine Kinase (test code = 413 U/L 2157-6) [facility] or plasma total creatine kinase/creatine kinase MB isoenzyme activity jqckr9103-96-16 22:42:00 Test Item Value Reference Range Interpretation Comments Creatine Kinase MB Relative Index (test 0.5 % code = 2158-4) [facility] HospitalTroponin I nlnckkyuu1163-15-80 22:42:00 Test Item Value Reference Range Interpretation Comments Troponin I (test code = 91735-6) 0.059 ng/mL [facility] or plasma brain natriuretic peptide (BNP) myluzjekkvh9550-88-96 22:42:00 Test Item Value Reference Range Interpretation Comments B-Type Natriuretic Peptide (test 40 pg/mL code = 21850-4) [facility] or plasma thyrotropin measurement by detection limit <=0.005 miu/l (units/gadts3448-42-65 22:42:00 Test Item Value Reference Range Interpretation Comments Thyroid Stimulating Hormone 7.670 u[iU]/mL (TSH) (test code = 56825-3) [facility] plasma procalcitonin measurement (mass/volume)2019-09-24 22:42:00 Test Item Value Reference Range Interpretation Comments Procalcitonin (test code = < 0.05 ng/mL 15961-8) [facility]Whole blood prothrombin yqay8269-59-99 22:42:00 Test Item Value Reference Range Interpretation Comments Prothrombin Time (test code = 5964-2) 11.4 s [facility] HospitalINR in Platelet poor plasma by Coagulation assay 2019-09-24 22:42:00 Test Item Value Reference Range Interpretation Comments Prothromb Time International Ratio 1.0 {INR} (test code = 6301-6) [facility] HospitalPartial thromboplastin time (PTT) in platelet poor imxevs9239-57-01 22:42:00 Test Item Value Reference Range Interpretation Comments Activated Partial Thromboplast Time 31.7 s (test code = 33486-2) [facility] HospitalFibrin D-dimer FEU xeqk2981-06-17 22:42:00 Test Item Value Reference Range Interpretation Comments D-Dimer (test code = 62185-0) 262 ng/mL{FEU} [facility] ketones detection by automated test strip 2019-09-24 22:33:00 Test Item Value Reference Range Interpretation Comments Urine Ketones (test code = Negative mg/dL 80066-6) [facility] erythrocytes detection by automated method 2019-09-24 22:33:00 Test Item Value Reference Range Interpretation Comments Urine Occult Blood (test code = Negative 37505-5) [facility]Automated urine nitrite egyienyomgw3333-01-46 22:33:00 Test Item Value Reference Range Interpretation Comments Urine Nitrite (test code = 16570-6) Negative [facility] total bilirubin detection by automated test zzlbr1812-25-93 22:33:00 Test Item Value Reference Range Interpretation Comments Urine Bilirubin (test code = Negative 33863-9) [facility] urine urobilinogen ldjculldydn7750-86-03 22:33:00 Test Item Value Reference Range Interpretation Comments Urine Urobilinogen (test code = Normal mg/dL 21224373) [facility] leukocytes detection by automated method 2019-09-24 22:33:00 Test Item Value Reference Range Interpretation Comments Urine Leukocyte Esterase (test 250 {Marianna}/uL code = 89024-3) [facility] erythrocytes count in urine sediment (number/area)2019-09-24 22:33:00 Test Item Value Reference Range Interpretation Comments Urine RBC (test code = 29033-3) 0-2 /[HPF] [facility] leukocytes count in urine sediment (number/area)2019-09-24 22:33:00 Test Item Value Reference Range Interpretation Comments Urine WBC (test code = 81443-2) 10-20 /[HPF] [facility] squamous epithelial cells count in urine sediment (number/area)2019-09-24 22:33:00 Test Item Value Reference Range Interpretation Comments Urine Squamous Epithelial Cells Rare /[LPF] (test code = 11117-1) [facility] sediment crystal count (number/area)2019-09-24 22:33:00 Test Item Value Reference Range Interpretation Comments Urine Other Crystals (test +/- Rare /[LPF] code = 19910-7) [facility] bacteria count in urine sediment (number/area)2019-09-24 22:33:00 Test Item Value Reference Range Interpretation Comments Urine Bacteria (test code = None /[HPF] 21240-5) [facility] mucus count in urine sediment (number/area)2019-09-24 22:33:00 Test Item Value Reference Range Interpretation Comments Urine Mucus (test code = 97085-7) +/- /[LPF] [facility] yeast count (number/area)2019-09-24 22:33:00 Test Item Value Reference Range Interpretation Comments Urine Yeast (Budding) (test code Rare /[HPF] = 78140-6) [facility] comment 22:33:00 Test Item Value Reference Range Interpretation Comments Urine Culture Indicated Yes, Criteria Met (test code = 8264-4) [facility] HospitalBacterial urine oigidii8895-52-90 22:33:00 Test Item Value Reference Range Interpretation Comments Urine Culture (test No growth in 18-24 code = 630-4) hours [facility]Automated urine color oaghjgpqysctg3017-81-33 22:33:00 Test Item Value Reference Range Interpretation Comments Urine Color (test code = 67345-5) Yellow [facility]Clarity in Urine by Refractometry automated 2019-09-24 22:33:00 Test Item Value Reference Range Interpretation Comments Urine Appearance (test code = 25379-6) Clear [facility] pH measurement by test jflvb7136-70-65 22:33:00 Test Item Value Reference Range Interpretation Comments Urine pH (test code = 5803-2) 7.5 [pH] [facility] urine specific gravity by refractometry 2019-09-24 22:33:00 Test Item Value Reference Range Interpretation Comments Urine Specific Mccarr (test code = 1.009 05790-8) [facility] protein qrfhodipgvt6932-13-68 22:33:00 Test Item Value Reference Range Interpretation Comments Urine Protein (test code = Negative mg/dL 63823029) [facility] glucose pdmtsajdn1405-28-97 22:33:00 Test Item Value Reference Range Interpretation Comments Urine Glucose (UA) (test code Negative mg/dL = 17970-6) [facility] [id number] 02:06:00 Test Item Value Reference Range Interpretation [...] CALCIUM (test code = MG/DL 8.7-9.7 CA) [id number] 02:06:00 Test Item Value Reference Range Interpretation Comments MAGNESIUM (test code = MAG) MG/DL 1.6-2.3 BASIC METABOLIC [id number] 02:06:00 Test Item Value Reference Range Interpretation [...] CALCIUM (test code = MG/DL 8.7-9.7 CA) [id number] 02:06:00 Test Item Value Reference Range Interpretation Comments MAGNESIUM (test code = MAG) MG/DL 1.6-2.3 BASIC METABOLIC [id number] 02:06:00 Test Item Value Reference Range Interpretation [...] code = 10.3 MG/DL 8.4-10.2 H CA) [id number] 02:06:00 Test Item Value Reference Range Interpretation Comments MAGNESIUM (test code = MAG) MG/DL 1.6-2.3 BASIC METABOLIC [id number] 02:06:00 Test Item Value Reference Range Interpretation [...] code = 10.3 MG/DL 8.4-10.2 H CA) [id number] 02:06:00 Test Item Value Reference Range Interpretation Comments MAGNESIUM (test code = MAG) 1.7 MG/DL 1.6-2.3 BASIC METABOLIC [id number] 02:03:00 Test Item Value Reference Range Interpretation [...] CALCIUM (test code = CA) MG/DL 8.7-9.7 [id number] 02:03:00 Test Item Value Reference Range Interpretation Comments MAGNESIUM (test code = MAG) MG/DL 1.6-2.3 CBC W/AUTO [id number] 01:51:00 Test Item Value Reference Range Interpretation [...] K/mm3 0.0-0.1 N NRBC#) - XR CHEST [id number] 11:06:00 Patient Name: DEBI GARRETT Unit No: [id number] EXAMS: CPT CODE: [id number] XR CHEST 1V 64863 Site ID: [id number] HISTORY: Pneumothorax COMPARISON: Chest [...] CC: Poli Aaron; Abdulaziz Epps Technologist: Willie Santaan (RT) Transcrpt Date/Tm/Trnsp: 08/10/2019 (1106) [email or web address] Orig Print D/T: S: 08/10/2019 (1110) [facility] NAME: DEBI GARRETT [id number] [address] PHYS: Abdul[place] [address] : 1935 AGE: 84 SEX: F LOC: Z.SI05 A PHONE #: [phone] EXAM DATE: 08/10/2019 STATUS: ADM IN FAX #: [phone] RADIOLOGY NO: PAGE 1 Signed ReportBASIC METABOLIC [id number] 05:07:00 Test Item Value Reference Range Interpretation [...] code = 10.6 MG/DL 8.4-10.2 H CA) [id number] 05:07:00 Test Item Value Reference Range Interpretation Comments PHOSPHOROUS (test code = PHOS) 3.3 MG/DL 2.5-4.5 N [id number] 05:07:00 Test Item Value Reference Range Interpretation Comments MAGNESIUM (test code = MAG) 2.2 MG/DL 1.6-2.3 BASIC METABOLIC [id number] 05:04:00 Test Item Value Reference Range Interpretation [...] CALCIUM (test code = MG/DL 8.7-9.7 CA) [id number] 05:04:00 Test Item Value Reference Range Interpretation Comments PHOSPHOROUS (test code = PHOS) MG/DL 2.5-4.5 [id number] 05:04:00 Test Item Value Reference Range Interpretation Comments MAGNESIUM (test code = MAG) MG/DL 1.6-2.3 BASIC METABOLIC [id number] 05:01:00 Test Item Value Reference Range Interpretation [...] CALCIUM (test code = CA) MG/DL 8.7-9.7 [id number] 05:01:00 Test Item Value Reference Range Interpretation Comments PHOSPHOROUS (test code = PHOS) MG/DL 2.5-4.5 [id number] 05:01:00 Test Item Value Reference Range Interpretation Comments MAGNESIUM (test code = MAG) MG/DL 1.6-2.3 CBC W/AUTO [id number] 04:48:00 Test Item Value Reference Range Interpretation [...] 0.00 K/mm3 0.0-0.1 N NRBC#) BASIC METABOLIC [id number] 23:31:00 Test Item Value Reference Range Interpretation [...] code = 10.1 MG/DL 8.4-10.2 N CA) [id number] 23:31:00 Test Item Value Reference Range Interpretation Comments MAGNESIUM (test code = MAG) 1.8 MG/DL 1.6-2.3 N BASIC METABOLIC [id number] 23:28:00 Test Item Value Reference Range Interpretation [...] CALCIUM (test code = MG/DL 8.7-9.7 CA) [id number] 23:28:00 Test Item Value Reference Range Interpretation Comments MAGNESIUM (test code = MAG) MG/DL 1.6-2.3 BASIC METABOLIC [id number] 23:25:00 Test Item Value Reference Range Interpretation [...] CALCIUM (test code = CA) MG/DL 8.7-9.7 [id number] 23:25:00 Test Item Value Reference Range Interpretation Comments MAGNESIUM (test code = MAG) MG/DL 1.6-2.3 BASIC METABOLIC [id number] 22:21:00 Test Item Value Reference Range Interpretation [...] code = 9.3 MG/DL 8.4-10.2 N CA) [id number] 22:21:00 Test Item Value Reference Range Interpretation Comments MAGNESIUM (test code = MAG) 1.6 MG/DL 1.6-2.3 N BASIC METABOLIC [id number] 21:36:00 Test Item Value Reference Range Interpretation [...] code = CA) 9.3 MG/DL 8.4-10.2 N [id number] 21:36:00 Test Item Value Reference Range Interpretation Comments MAGNESIUM (test code = MAG) 1.6 MG/DL 1.6-2.3 N BASIC METABOLIC [id number] 21:35:00 Test Item Value Reference Range Interpretation [...] CALCIUM (test code = CA) MG/DL 8.7-9.7 [id number] 21:35:00 Test Item Value Reference Range Interpretation Comments MAGNESIUM (test code = MAG) MG/DL 1.6-2.3 CBC W/AUTO [id number] 21:25:00 Test Item Value Reference Range Interpretation [...] 0.0-0.1 N NRBC#) - MRI BRAIN W/O [id number] 11:43:00 Patient Name: DEBI GARRETT Unit No: [id number] EXAMS: CPT CODE: [id number] MRI BRAIN W/O CONTRAST 32482 CLINICAL INFORMATION: Ataxia. Right internal carotid artery [...] Leonel.AGV Orig Print D/T: S: 08/09/2019 (1146) [facility] NAME: DEBI GARRETT [id number] [address] PHYS: [place] [address] : 1935 AGE: 84 SEX: F LOC: Z.SI05 A PHONE #: [phone] EXAM DATE: 08/09/2019 STATUS: ADM IN FAX #: [phone] RADIOLOGY NO: PAGE 1 Signed ReportURINALYSIS [id number] 22:47:00 Test Item Value Reference Range Interpretation [...] UACULT) Criteria SOURCE OF URINE: STRAIGHT CATHETERURINALYSIS [id number] 22:45:00 Test Item Value Reference Range Interpretation [...] UACULT) SOURCE OF URINE: STRAIGHT CATHETERBASIC METABOLIC [id number] 13:12:00 Test Item Value Reference Range Interpretation [...] code = 9.8 MG/DL 8.4-10.2 N CA) [id number] 13:12:00 Test Item Value Reference Range Interpretation Comments PHOSPHOROUS (test code = PHOS) 2.6 MG/DL 2.5-4.5 N [id number] 13:12:00 Test Item Value Reference Range Interpretation Comments MAGNESIUM (test code = MAG) 2.3 MG/DL 1.6-2.3 N T3,T4 [id number] 13:12:00 Test Item Value Reference Range Interpretation Comments T3 UPTAKE (test code = T3UP) 33.3 % UP 23.5-40.5 N T4 (THYROXINE) (test code = T4) 13.10 UG/DL 5.53-11.0 H T7 (FREE THYROXINE INDEX) (test 4.4 1.2-4.3 H code = T7) THYROID STIMULATING [id number] 13:12:00 Test Item Value Reference Range Interpretation Comments THYROID STIMULATING 3.590 MIU/L 0.465-4.68 N Please b e aware that HORMONE (test code = bias re sults for TSH TSH) may occur forpa tient who are taking Biotin suppleme nts. T4 [id number] 12:43:00 Test Item Value Reference Range Interpretation Comments T4 FREE (test code = T4F) 2.1 NG/DL 0.78-2.19 N BASIC METABOLIC [id number] 12:41:00 Test Item Value Reference Range Interpretation [...] code = 9.8 MG/DL 8.4-10.2 N CA) [id number] 12:41:00 Test Item Value Reference Range Interpretation Comments PHOSPHOROUS (test code = PHOS) 2.6 MG/DL 2.5-4.5 N [id number] 12:41:00 Test Item Value Reference Range Interpretation Comments MAGNESIUM (test code = MAG) 2.3 MG/DL 1.6-2.3 N T3,T4 [id number] 12:41:00 Test Item Value Reference Range Interpretation Comments T3 UPTAKE (test code = T3UP) 33.3 % UP 23.5-40.5 N T4 (THYROXINE) (test code = T4) 13.10 UG/DL 5.53-11.0 H T7 (FREE THYROXINE INDEX) (test 4.4 1.2-4.3 H code = T7) THYROID STIMULATING [id number] 12:41:00 Test Item Value Reference Range Interpretation Comments THYROID STIMULATING HORMONE (test code MIU/L 0.465-4.68 = TSH) CBC W/AUTO [id number] 12:39:00 Test Item Value Reference Range Interpretation [...] 0.00 K/mm3 0.0-0.1 N NRBC#) BASIC METABOLIC [id number] 12:26:00 Test Item Value Reference Range Interpretation [...] code = 9.8 MG/DL 8.4-10.2 N CA) [id number] 12:26:00 Test Item Value Reference Range Interpretation Comments PHOSPHOROUS (test code = PHOS) 2.6 MG/DL 2.5-4.5 N [id number] 12:26:00 Test Item Value Reference Range Interpretation Comments MAGNESIUM (test code = MAG) 2.3 MG/DL 1.6-2.3 N T3,T4 [id number] 12:26:00 Test Item Value Reference Range Interpretation Comments T3 UPTAKE (test code = T3UP) % UP 23.5-40.5 T4 (THYROXINE) (test code = T4) UG/DL 5.53-11.0 T7 (FREE THYROXINE INDEX) (test code = 1.2-4.3 T7) THYROID STIMULATING [id number] 12:26:00 Test Item Value Reference Range Interpretation Comments THYROID STIMULATING HORMONE (test code MIU/L 0.465-4.68 = TSH) BASIC METABOLIC [id number] 12:25:00 Test Item Value Reference Range Interpretation [...] CALCIUM (test code = MG/DL 8.7-9.7 CA) [id number] 12:25:00 Test Item Value Reference Range Interpretation Comments PHOSPHOROUS (test code = PHOS) MG/DL 2.5-4.5 [id number] 12:25:00 Test Item Value Reference Range Interpretation Comments MAGNESIUM (test code = MAG) MG/DL 1.6-2.3 T3,T4 [id number] 12:25:00 Test Item Value Reference Range Interpretation Comments T3 UPTAKE (test code = T3UP) % UP 23.5-40.5 T4 (THYROXINE) (test code = T4) UG/DL 5.53-11.0 T7 (FREE THYROXINE INDEX) (test code = 1.2-4.3 T7) THYROID STIMULATING [id number] 12:25:00 Test Item Value Reference Range Interpretation Comments THYROID STIMULATING HORMONE (test code MIU/L 0.465-4.68 = TSH) BASIC METABOLIC [id number] 12:25:00 Test Item Value Reference Range Interpretation [...] CALCIUM (test code = MG/DL 8.7-9.7 CA) [id number] 12:25:00 Test Item Value Reference Range Interpretation Comments PHOSPHOROUS (test code = PHOS) MG/DL 2.5-4.5 [id number] 12:25:00 Test Item Value Reference Range Interpretation Comments MAGNESIUM (test code = MAG) MG/DL 1.6-2.3 T3,T4 [id number] 12:25:00 Test Item Value Reference Range Interpretation Comments T3 UPTAKE (test code = T3UP) % UP 23.5-40.5 T4 (THYROXINE) (test code = T4) UG/DL 5.53-11.0 T7 (FREE THYROXINE INDEX) (test code = 1.2-4.3 T7) THYROID STIMULATING [id number] 12:25:00 Test Item Value Reference Range Interpretation Comments THYROID STIMULATING HORMONE (test code MIU/L 0.465-4.68 = TSH) BASIC METABOLIC [id number] 12:25:00 Test Item Value Reference Range Interpretation [...] CALCIUM (test code = MG/DL 8.7-9.7 CA) [id number] 12:25:00 Test Item Value Reference Range Interpretation Comments PHOSPHOROUS (test code = PHOS) MG/DL 2.5-4.5 [id number] 12:25:00 Test Item Value Reference Range Interpretation Comments MAGNESIUM (test code = MAG) MG/DL 1.6-2.3 T3,T4 [id number] 12:25:00 Test Item Value Reference Range Interpretation Comments T3 UPTAKE (test code = T3UP) % UP 23.5-40.5 T4 (THYROXINE) (test code = T4) UG/DL 5.53-11.0 T7 (FREE THYROXINE INDEX) (test code = 1.2-4.3 T7) THYROID STIMULATING [id number] 12:25:00 Test Item Value Reference Range Interpretation Comments THYROID STIMULATING HORMONE (test code MIU/L 0.465-4.68 = TSH) BASIC METABOLIC [id number] 12:23:00 Test Item Value Reference Range Interpretation [...] CALCIUM (test code = CA) MG/DL 8.7-9.7 [id number] 12:23:00 Test Item Value Reference Range Interpretation Comments PHOSPHOROUS (test code = PHOS) MG/DL 2.5-4.5 [id number] 12:23:00 Test Item Value Reference Range Interpretation Comments MAGNESIUM (test code = MAG) MG/DL 1.6-2.3 T3,T4 [id number] 12:23:00 Test Item Value Reference Range Interpretation Comments T3 UPTAKE (test code = T3UP) % UP 23.5-40.5 T4 (THYROXINE) (test code = T4) UG/DL 5.53-11.0 T7 (FREE THYROXINE INDEX) (test code = 1.2-4.3 T7) THYROID STIMULATING [id number] 12:23:00 Test Item Value Reference Range Interpretation Comments THYROID STIMULATING HORMONE (test code MIU/L 0.465-4.68 = TSH) BASIC METABOLIC [id number] 12:22:00 Test Item Value Reference Range Interpretation [...] CALCIUM (test code = CA) MG/DL 8.7-9.7 [id number] 12:22:00 Test Item Value Reference Range Interpretation Comments PHOSPHOROUS (test code = PHOS) MG/DL 2.5-4.5 [id number] 12:22:00 Test Item Value Reference Range Interpretation Comments MAGNESIUM (test code = MAG) MG/DL 1.6-2.3 T3,T4 [id number] 12:22:00 Test Item Value Reference Range Interpretation Comments T3 UPTAKE (test code = T3UP) % UP 23.5-40.5 T4 (THYROXINE) (test code = T4) UG/DL 5.53-11.0 T7 (FREE THYROXINE INDEX) (test code = 1.2-4.3 T7) THYROID STIMULATING [id number] 12:22:00 Test Item Value Reference Range Interpretation Comments THYROID STIMULATING HORMONE (test code MIU/L 0.465-4.68 = TSH) - XR HIP W/PEL UNI 2+V [id number] 11:43:00 Patient Name: DEBI GARRETT Unit No: [id number] EXAMS: CPT CODE: [id number] XR HIP W/PEL UNI 2+V RT [address] EXAM: - XR HIP W/PEL UNI 2+V [...] Kathrin Guevara MD CC: Poli Aaron;Jana Acosta DRUG CLERK Technologist: Britney Myers RT (R) Transcrpt Date/Tm/Trnsp: 08/08/2019 (1143) t.JWR.KW9 Orig Print D/T: S: 08/08/2019 (1141) [facility] NAME: DEBI GARRETT [id number] PHYS: DUSTY.Ric - [place] [address] : 1935 AGE: 84 SEX: F LOC: Z.SI05 A PHONE #: [phone] EXAM DATE: 08/08/2019 STATUS: ADM IN FAX #:[phone] RADIOLOGY NO: PAGE 1 Signed Report- CT HEAD/BRAIN W/O [id number] 11:40:00 Patient Name: DEBI GARRETT Unit No: [id number] EXAMS: CPT CODE: [id number] CT HEAD/BRAIN W/O CONT 94651 EXAMINATION: - CT HEAD/BRAIN W/O CONT. LOCATION: [...] Ever Finney CC: Poli Aaron; Jana Acosta DRUG CLERK Technologist: Filipe Perez, RT(R) CTDI: DLP: Trnscrpt: 08/08/2019 (1140) t.SDR.ANS4 [facility] NAME: DEBI GARRETT PHYS: [place] [address] : 1935 AGE: 84 SEX: F LOC: Z.SI05 A PHONE #: [phone] EXAM DATE: 08/08/2019 STATUS: ADM IN FAX #: [phone] RAD #: D/C DT PAGE 1 Signed Report PatientName: DEBI GARRETT Unit No: [id number] EXAMS: CPT CODE: [id number] CT HEAD/BRAIN W/O CONT 08241 <Continued> Orig Print D/T: S: 08/08/2019 (3539) [facility] NAME: DEBI GARRETT [id number] [address] PHYS: [place] [address] : 1935 AGE: 84 SEX: F LOC: Z.SI05 A PHONE #: [phone] EXAM DATE: 08/08/2019 STATUS: ADM IN FAX #: [phone] RAD #: D/C DT PAGE 2 Signed Report- XR CHEST [id number] 08:51:00 Patient Name: DEBI GARRETT Unit No: [id number] EXAMS: CPT CODE: [id number] XR CHEST 1V 65046 EXAM: - XR CHEST 1V Location code:B2 [...] Guevara MD CC: Poli Aaron; Jana Acosta DRUG CLERK Technologist: RT Sami(R) Transcrpt Date/Tm/Trnsp: 08/08/2019 (0851) t.JWR.KW9 Orig Print D/T: S: 08/08/2019 (0854) [facility] NAME: DEBI GARRETT [id number] [address] PHYS: DUSTY.Ric - [place] [address] : 1935 AGE: 84 SEX: F LOC: Z.SI05 A PHONE #: [phone] EXAM DATE: 08/08/2019 STATUS: ADM IN FAX #: [phone] RADIOLOGY NO: PAGE 1 Signed ReportDUC [id number] 12:46:00 RUN DATE: 08/07/19 [facility] - LAB PAGE 1 RUN TIME: 1246 Specimen Inquiry RUN USER: INTERFACE PATIENT: DEBI GARRETT LOC: MYLES U #: [id number] AGE/SX: 84/F [facility]: Robi Schroeder MD : 37 BED: A DIS: STATUS: ADM IN TLOC: SPEC #: [id number] RECD: 08/06/19 STATUS: DOV REQ #: [id number] KELLE: 08/06/[address]: Robi Schroeder MD ENTERED: 08/06/19 SP TYPE: ARTERY, PL OTHR DR: Self Referred Mirella Francis MD, Patricia Q MD Pepper, Gregory S MDORDERED: DECAL, SURG PATH LVL3, SURG PATH LVL 4 CODES: [id number] - PLAQUE, NOS N31245 - ARTERY, NOS Q16027 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 [address] [place] [address] ICD CODES: 440 - PROCEDURES: DECAL (08/06/19-1247) SURG PATH LVL 3 (08/06/19-1247) SURG PATH LVL 4 (08/06/19) TISSUES: A. ARTERY, NOS - RT CAROTID PLAQUE B. LYMPH NODE, NOS - RT CERVICAL LYMPH NODE CONTINUED ON NEXT PAGE RUN DATE: 08/07/19 [facility] PAGE 2 RUN TIME: 1246 Specimen Inquiry RUN USER: INTERFACE SPEC #: [id number] PATIENT: DEBI GARRETT #[id number] (Continued) CLINICAL HISTORY S/P RIGHT CEA CPT CODES CPT CODE(S): 92244 , 45352 , 74296 , , , , FINAL DIAGNOSIS A. [...] 1246 END OF REPORT - XR CHEST [id number] 10:56:00 Patient Name: DEBI GARRETT Unit No: [id number] EXAMS: CPT CODE: [id number] XR CHEST 1V 95766 EXAMINATION: - XR CHEST 1V. LOCATION: B2. [...] t.JWR.PR7 Orig Print D/T: S: 08/07/2019 (1100) [facility] NAME: DEBI GARRETT [id number] PHYS: [place] [address] : 1935 AGE: 84 SEX: F LOC: Z.SI01 A PHONE #: [phone] EXAM DATE: 08/07/2019 STATUS: ADM IN FAX #: [phone] RADIOLOGY NO: PAGE 1 Signed ReportBASIC METABOLIC [...] CA) CBN DRAW LEFT TUBES FOR NURSE [id number] 06:56:00 Test Item Value Reference Range Interpretation Comments MAGNESIUM (test code = MAG) 1.8 MG/DL 1.6-2.3 N CBN DRAW [facility] TUBES [facility] [id number] 06:55:00 Test Item Value Reference Range Interpretation [...] CA) CBN DRAW LEFT TUBES FOR NURSE [id number] 06:55:00 Test Item Value Reference Range Interpretation Comments MAGNESIUM (test code = MAG) MG/DL 1.6-2.3 CBN DRAW LEFT TUBES FOR NURSE FELASIC METABOLIC [id number] 06:53:00 Test Item Value Reference Range Interpretation [...] 8.7-9.7 CBN DRAW LEFT TUBES FOR NURSE [id number] 06:53:00 Test Item Value Reference Range Interpretation Comments MAGNESIUM (test code = MAG) MG/DL 1.6-2.3 CBN DRAW LEFT TUBES FOR NURSE FELACBC W/AUTO [id number] 06:42:00 Test Item Value Reference Range Interpretation [...] NRBC#) CBN DRAW LEFT TUBES FOR NURSE [facility] METABOLIC [id number] 13:33:00 Test Item Value Reference Range Interpretation [...] code = 10.0 MG/DL 8.4-10.2 N CA) [id number] 13:33:00 Test Item Value Reference Range Interpretation Comments MAGNESIUM (test code = MAG) 1.8 MG/DL 1.6-2.3 N BASIC METABOLIC [id number] 13:32:00 Test Item Value Reference Range Interpretation [...] CALCIUM (test code = MG/DL 8.7-9.7 CA) [id number] 13:32:00 Test Item Value Reference Range Interpretation Comments MAGNESIUM (test code = MAG) MG/DL 1.6-2.3 BASIC METABOLIC [id number] 13:30:00 Test Item Value Reference Range Interpretation [...] CALCIUM (test code = CA) MG/DL 8.7-9.7 [id number] 13:30:00 Test Item Value Reference Range Interpretation Comments MAGNESIUM (test code = MAG) MG/DL 1.6-2.3 BASIC METABOLIC [id number] 13:29:00 Test Item Value Reference Range Interpretation [...] CALCIUM (test code = CA) MG/DL 8.7-9.7 [id number] 13:29:00 Test Item Value Reference Range Interpretation Comments MAGNESIUM (test code = MAG) MG/DL 1.6-2.3 CBC W/AUTO [id number] 13:19:00 Test Item Value Reference Range Interpretation [...] K/mm3 0.0-0.1 N NRBC#) - XR CHEST [id number] 13:05:00 Patient Name: DEBI GARRETT Unit No: [id number] EXAMS: CPT CODE: [id number] XR CHEST 1V 39016 Site ID: [id number] HISTORY: Postoperative, right CEA [...] t.JWR.AJP6 Orig Print D/T: S: 08/06/2019 (1308) [facility] NAME: DEBI GARRETT [id number] [address] PHYS: [place] [address] : 1935 AGE: 84 SEX: F LOC: Z.SI01 A PHONE #: [phone] EXAM DATE: 08/06/2019 STATUS: ADM IN FAX #: [phone] RADIOLOGY NO: PAGE 1 Signed ReportARTERIAL BLOOD [id number] 13:00:00 Test Item Value Reference Range Interpretation [...] = 50 % COHBGFFIO2) Novel Coronavirus 2019 [id number] 08:07:00 Test Item Value Reference Range Interpretation Comments Novel Coronavirus 2018 Inhouse (test Negative Negative code = COVNONPUI) Novel Coronavirus 2019 [id number] 08:06:00 Test Item Value Reference Range Interpretation Comments Novel Coronavirus 2019 Inhouse (test Negative Negative code = COVNONPUI) HIV 12 AB [id number] 14:28:00 Test Item Value Reference Range Interpretation Comments HIV 1 2 COMBO AG/AB SCREEN AB/AG NON REACTIVE NONREACTIVE (test code = INC25RUULY) BASIC METABOLIC [id number] 13:39:00 Test Item Value Reference Range Interpretation [...] 10.3 MG/DL 8.4-10.2 H CA) BASIC METABOLIC [id number] 13:38:00 Test Item Value Reference Range Interpretation [...] code = MG/DL 8.7-9.7 CA) BASIC METABOLIC [id number] 13:36:00 Test Item Value Reference Range Interpretation [...] code = CA) MG/DL 8.7-9.7 BASIC METABOLIC [id number] 13:35:00 Test Item Value Reference Range Interpretation [...] (test code = CA) MG/DL 8.7-9.7 PROTHROMBIN [id number] 13:32:00 Test Item Value Reference Range Interpretation [...] syste aga embolism. 3.0 - 4.5 PTT [id number] 13:32:00 Test Item Value Reference Range Interpretation Comments PTT ACTIVATED (test code = APTT) 35.5 SECONDS 25.1-36.5 N CBC W/AUTO [id number] 13:23:00 Test Item Value Reference Range Interpretation [...] 0.0-0.1 N NRBC#) - XR CHEST 2 [id number] 13:16:00 Patient Name: DEBI GARRETT Unit No: [id number] EXAMS: CPT CODE: [id number] XR CHEST 2 V 32638 Site ID: [id number] HISTORY: Preoperative, right carotid endarterectomy FINDINGS: The lungs are clear and normally expanded. The heart and pulmonary vasculature is normal. Previous coronary artery stenting noted. Osseous structures are unremarkable. IMPRESSION: No acute card iopulmonary finding at 1316 Reported and signed by: Laith Salcido MD CC: Poli Aaron Technologist: Britney Myers RT (R) Transcrpt Date/Tm/Trnsp: 07/29/2019 (1316) PritiAJP6 Orig Print D/T: S: 07/29/2019 (4016) [facility] NAME: DEBI GARRETT [id number] [address] PHYS: [place] [address] : 1935 AGE: 84 SEX: F LOC: JING PHONE #: [phone] EXAM DATE: 07/29/2019 STATUS: PRE IN FAX #: [phone] RADIOLOGY NO: PAGE 1 Signed ReportBASIC METABOLIC [id number] 06:23:00 Test Item Value Reference Range Interpretation [...] 0-189 mg/dL VERY HIGH...... ...>/= 190 mg/dL [id number] 06:23:00 Test Item Value Reference Range Interpretation Comments MAGNESIUM (test code = MAG) 2.2 MG/DL 1.6-2.3 N PROTHROMBIN [id number] 06:16:00 Test Item Value Reference Range Interpretation [...] syste aga embolism. 3.0 - 4.5 PTT [id number] 06:16:00 Test Item Value Reference Range Interpretation Comments PTT ACTIVATED (test code = APTT) 33.9 SECONDS 25.1-36.5 N BASIC METABOLIC [id number] 06:11:00 Test Item Value Reference Range Interpretation [...] LDL (test MG/DL 0-99 code = LDL) [id number] 06:11:00 Test Item Value Reference Range Interpretation Comments MAGNESIUM (test code = MAG) MG/DL 1.6-2.3 BASIC METABOLIC [id number] 06:11:00 Test Item Value Reference Range Interpretation [...] LDL (test MG/DL 0-99 code = LDL) [id number] 06:11:00 Test Item Value Reference Range Interpretation Comments MAGNESIUM (test code = MAG) 2.2 MG/DL 1.6-2.3 N BASIC METABOLIC [id number] 06:08:00 Test Item Value Reference Range Interpretation [...] LDL (test code = LDL) MG/DL 0-99 [id number] 06:08:00 Test Item Value Reference Range Interpretation Comments MAGNESIUM (test code = MAG) MG/DL 1.6-2.3 CBC W/AUTO [id number] 06:00:00 Test Item Value Reference Range Interpretation [...]
[2020-10-18 12:32] LABS: Absolute Lymphocytes (CBC) 0.8 K/uL (0.7-4.9); Hematocrit 33.5 % (36.0-45.0); Lymphocytes % 13.3 % (15.3-44.8); MPV 7.4 fL (7.6-11.3); RBC Red Blood Cell Count 3.66 M/uL (3.86-4.86)
[2020-10-18] MEDS ORDERED: MAGNESIUM CITRATE 300 ML BOT ONE (12:37)
[2020-10-18] MEDS ORDERED: NA CHLORIDE 0.9% 500 ML ONE (12:37)
[2020-10-18 12:48] LABS: Albumin 3.7 g/dL (3.4-5.0); Bilirubin Direct 0.3 mg/dL (0-0.2); Bilirubin Total 0.7 mg/dL (0.2-1.0); Potassium 3.7 mmol/L (3.5-5.1); Protein, Total 7.2 g/dL (6.4-8.2)
--- NOTE | 2020-10-18 13:42 | RAD REPORT ---
EXAM DESCRIPTION: CT - Abdomen Pelvis W Contrast - 10/18/2020 1:18 pm CLINICAL HISTORY: CONSTIPATION COMPARISON: Abdomen Pelvis W Contrast dated 08/13/2020; Abdomen Pelvis W Contrast dated 8 TECHNIQUE: Biphasic, helical CT imaging of the abdomen and pelvis was performed following 100 ml non -ionic IV contrast. No oral contrast was administered. All CT scans are performed using dose optimization technique as appropriate and may include automated exposure control or mA/KV adjustment according to patient size. FINDINGS: No suspicious findings in the lung bases. The liver, spleen, and pancreas show no suspicious findings. Gallbladder and biliary tree are also wi thout suspicious finding. Gallstones can be occult on CT imaging. Symmetric renal function is seen with no hydronephrosis or suspicious renal mass. No pyelonephritis o r acute parenchymal process. No bladder abnormalities. No adrenal abnormalities. Atrophic uterus show s no suspicious findings. Ovaries are not clearly defined in presumed atrophic. No adnexal masses pre sent. Large amount of fluid fills the stomach. No gastric wall thickening or mass. No acute small bowel fin ding. The appendix is normal. A few small mesenteric lymph nodes are present. Colon is tortuous and r edundant. There is a very large amount of stool seen filling and/ or distending the entirety of the c olon. A suspicious colon mass is not identifiable. There is lobulated soft tissue along the posterior wall of the distal rectum. This is probably prominent mucosal fold pattern. Mass or polyp is possibl e however neither would be a source for obstruction. No free air, free fluid or inflammatory strandin g. No hernia, mass or bulky lymphadenopathy. Bony degenerative changes are present relatively mild for age. No acute vascular finding. 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 This is not clearly different from the 2018 study. IMPRESSION: Constipation pattern with a very large amount of stool filling the entirety of the colon from cecum to distal rectum. Colon is tortuous and redundant as well. Two lobulated areas of soft tissue 15-18 mm in size are seen along the posterior wall of the distal r ectum. CT imaging is limited in this region. This may be lobulated mucosa or less likely polyp/mass. None of these etiologies would be a source for the constipation pattern.
[2020-10-18 15:47] LABS: Platelet Estimate ADEQ; White Blood Cell Scan OK (OK)
[2020-10-18 15:50] LABS: Blood Morphology Comment NOTED (NOT SEEN); Poikilocytosis 2+
--- NOTE | 2020-10-19 17:24 | EDPHYS ---
Physician Documentation [facility] Name: Leyda Ramos Age: 85 yrs Sex: Female : 1935 Arrival Date: 10/18/2020 Time: 09:47 Bed 19 Private MD: ED Physician Bob Lam HPI: 10/18 12:00 This 85 yrs old Female presents to ER via Ambulatory with complaints of rn Constipation. 12:00 The patient presents to the emergency department with Constipation. Onset: The rn symptoms/episode began/occurred 1 week(s) ago. Possible causes: unknown. The symptoms are aggravated by nothing. The symptoms are alleviated by nothing. Associated signs and symptoms: Pertinent positives: constipation, Pertinent negatives: fever, GI bleeding, vomiting. Severity of symptoms: At their worst the symptoms were moderate in the emergency department the symptoms are unchanged. The patient has experienced similar episodes in the past, chronically. The patient has not recently seen a physician. Patient reports chronic constipation, has dealt with this multiple times, takes chronic pain medication. States no bowel movement for 7 days despite enema x 2, stool softener, MiraLAX. Positive for mild nausea but negative for vomiting or blood in the stool. Denies abdominal pain. Historical: - Allergies: 10:14 Augmentin; vg1 10:14 Bactrim; vg1 10:14 Hydrocodone-Acetaminophen; vg1 10:14 PENICILLINS; vg1 - Home Meds: 10:14 Tricor Oral [Active]; Plavix Oral [Active]; omega-3 acid ethyl esters 1 gram Oral cap 2 vg1 caps 2 times per day [Active]; losartan Oral [Active]; Lipitor Oral [Active]; levothyroxine 50 mcg tab 1 tab once daily [Active]; Cozaar 100 mg Oral tab 1 tab once daily [Active]; - PMHx: 10:14 Chronic pain; pelvic; GALLSTONES; High Cholesterol; Hypertension; Hypothyroidism; vg1 leaking heart valve; - Immunization history:: Adult Immunizations up to date, . - Social history:: Smoking status: Patient denies any tobacco usage or history of. - Family history:: not pertinent. - Hospitalizations: : No recent hospitalization is reported. ROS: 12:00 Constitutional: Negative for fever, chills, and weight loss, Eyes: Negative for injury, rn pain, redness, and discharge, Neck: Negative for injury, pain, and swelling, Cardiovascular: Negative for chest pain, palpitations, and edema, Respiratory: Negative for shortness of breath, cough, wheezing, and pleuritic chest pain, Abdomen/GI: Negative for abdominal pain, nausea, vomiting, diarrhea Back: Negative for injury and pain, : Negative for injury, bleeding, discharge, and swelling, MS/Extremity: Negative for injury and deformity, Skin: Negative for injury, rash, and discoloration, Neuro: Negative for headache, weakness, numbness, tingling, and seizure. Exam: 12:00 Constitutional: This is a well developed, well nourished patient who is awake, alert, rn and in no acute distress. Head/Face: Normocephalic, atraumatic. Eyes: Periorbital areas with no swelling, redness, or edema. ENT: Dry mucous membranes Cardiovascular: Regular rate and rhythm. No pulse deficits. Respiratory: No increased work of breathing, no retractions or nasal flaring. Abdomen/GI: Soft, nontender, nondistended. No masses palpated. Skin: Warm, dry MS/ Extremity: Pulses equal, no cyanosis. Neuro: Awake and alert, GCS 15, oriented to person, place, time, and situation. Cranial nerves II-XII grossly intact. Motor strength 5/5 in all extremities. Sensory grossly intact. Cerebellar exam normal. Vital Signs: 10:10 BP 152 / 67; Pulse 70; Resp 16; Temp 98.5; Pulse Ox 96% ; Weight 49.9 kg; Height 5 ft. vg1 0 in. (152.40 cm); Pain 10/10; 13:31 BP 166 / 73; Pulse 81; Pulse Ox 91% on R/A; ap3 14:24 BP 131 / 77 LA (auto/reg); Pulse 74; Resp 19; Pulse Ox 100% on R/A; ap3 10:10 Body Mass Index 21.48 (49.90 kg, 152.40 cm) vg1 MDM: 11:51 Patient medically screened. rn 14:30 Differential diagnosis: constipation. Data reviewed: vital signs, nurses notes, labor relations teacher test result(s), radiologic studies, CT scan, and as a result, I will discharge patient. Counseling: I had a detailed discussion with the patient and/or guardian regarding: the historical points, exam findings, and any diagnostic results supporting the discharge/admit diagnosis, lab results, radiology results, the need for outpatient follow up, to return to the emergency department if symptoms worsen or persist or if there are any questions or concerns that arise at home. Response to treatment: the patient's symptoms have mildly improved after treatment, and as a result, I will discharge patient. Special discussion: I discussed with the patient/guardian in detail that at this point there is no indication for admission to the hospital. It is understood, however, that if the symptoms persist or worsen the patient needs to return immediately for re-evaluation. Based on the history and exam findings, there is no indication for further emergent testing or inpatient evaluation. I discussed with the patient/guardian the need to see the electrical construction project manager for further evaluation of the symptoms. I discussed with the patient/guardian the need to see the primary care provider for further evaluation of the symptoms. ED course: Patient reports went to bathroom and passed small balls of stool. Still no abdominal pain or abdominal tenderness on repeat exam. CT shows significant constipation without obstruction. Will DC home with continued laxative and enema treatments. Return precautions given and understood.. 10/18 11:58 Order name: Basic Metabolic Panel; Complete Time: 13:53 rn 10/18 11:58 Order name: CBC with Diff rn 10/18 11:58 Order name: Hepatic Function; Complete Time: 13:53 rn 10/18 11:58 Order name: Lipase; Complete Time: 13:53 rn 10/18 11:58 Order name: CT Abd/Pelvis - IV Contrast Only; Complete Time: 13:53 rn 10/18 11:58 Order name: IV Saline Lock; Complete Time: 13:31 rn 10/18 11:58 Order name: Labs collected and sent; Complete Time: 12:11 rn Administered Medications: 12:25 Drug: Magnesium Citrate Liquid 300 ml {Note: provided to patient. .} Route: PO; ap3 14:46 Follow up: Response: Other ap3 13:30 Drug: NS 0.9% 500 ml Route: IV; Rate: bolus; Site: right upper arm; ap3 14:46 Follow up: IV Status: Completed infusion; IV Intake: 500ml ap3 Disposition Summary: 10/18/20 14:33 Discharge Ordered Location: Home rn Problem: chronic rn Symptoms: have improved rn Condition: Stable rn Diagnosis - Constipation, unspecified rn Followup: rn - With: Private Physician - When: As needed - Reason: Recheck today's complaints, Re-evaluation by your physician Discharge Instructions: - Discharge Summary Sheet rn - Constipation, Adult rn Forms: - Medication Reconciliation Form rn - Thank You Letter rn - Antibiotic kiln furniture saw tender - Prescription Opioid Use rn Signatures: Dispatcher [employer] EDBob Sosa MD MD rn Prokisch, Amanda RN RN ap3 Gilma Winkler RN RN vg1
--- NOTE | 2020-10-19 17:24 | ER ---
Nurse's Notes [facility] Name: Leyda Ramos Age: 85 yrs Sex: Female : 1935 Arrival Date: 10/18/2020 Time: 09:47 Bed 19 Private MD: Diagnosis: Constipation, unspecified Presentation: 10/18 10:10 Chief complaint: Patient states: ' I think I've been constipated for about 9 days' Pt vg1 took an Enema last night. Pt stated when she does have a BM its dark. Denies blood in stool, denies ABD pain. States pain is near rectum. Coronavirus screen: Client denies travel out of the [place] in the last 14 days. Ebola Screen: Patient negative for fever greater than or equal to 101.5 degrees Fahrenheit, and additional compatible Ebola Virus Disease symptoms. Initial Sepsis Screen: Does the patient meet any 2 criteria? No. Patient's initial sepsis screen is negative. Does the patient have a suspected source of infection? No. Patient's initial sepsis screen is negative. Risk Assessment: Do you want to hurt yourself or someone else? Patient reports no desire to harm self or others. Onset of symptoms was October 09, 2020. 10:10 Method Of Arrival: Ambulatory vg1 10:10 Acuity: EVELIO 3 vg1 Triage Assessment: 10:14 General: Appears in no apparent distress. comfortable, Behavior is calm, cooperative. vg1 Pain: Complains of pain in rectum. GI: Reports constipation, nausea. Historical: - Allergies: 10:14 Augmentin; vg1 10:14 Bactrim; vg1 10:14 Hydrocodone-Acetaminophen; vg1 10:14 PENICILLINS; vg1 - Home Meds: 10:14 Tricor Oral [Active]; Plavix Oral [Active]; omega-3 acid ethyl esters 1 gram Oral cap 2 vg1 caps 2 times per day [Active]; losartan Oral [Active]; Lipitor Oral [Active]; levothyroxine 50 mcg tab 1 tab once daily [Active]; Cozaar 100 mg Oral tab 1 tab once daily [Active]; - PMHx: 10:14 Chronic pain; pelvic; GALLSTONES; High Cholesterol; Hypertension; Hypothyroidism; vg1 leaking heart valve; - Immunization history:: Adult Immunizations up to date, . - Social history:: Smoking status: Patient denies any tobacco usage or history of. - Family history:: not pertinent. - Hospitalizations: : No recent hospitalization is reported. Screenin:18 Abuse screen: Denies threats or abuse. Nutritional screening: No deficits noted. ap3 Tuberculosis screening: No symptoms or risk factors identified. Fall Risk None identified. Assessment: 12:17 General: Appears in no apparent distress. uncomfortable, Behavior is calm, cooperative, ap3 appropriate for age. Pain: Complains of pain in abdomen. Neuro: Level of Consciousness is awake, alert, obeys commands, Oriented to person, place, time, situation. Cardiovascular: Capillary refill < 3 seconds Patient's skin is warm and dry. Respiratory: Airway is patent Respiratory effort is even, unlabored, Respiratory pattern is regular, symmetrical. GI: Bowel sounds present X 4 quads. Abd is soft and non tender X 4 quads. : No signs and/or symptoms were reported regarding the genitourinary system. EENT: No signs and/or symptoms were reported regarding the EENT system. Derm: No signs and/or symptoms reported regarding the dermatologic system. Musculoskeletal: No signs and/or symptoms reported regarding the musculoskeletal system. 12:42 Reassessment: patient assisted to restroom. ap3 12:46 Reassessment: patient is noted to have completed Mag Citrate. ap3 Vital Signs: 10:10 BP 152 / 67; Pulse 70; Resp 16; Temp 98.5; Pulse Ox 96% ; Weight 49.9 kg; Height 5 ft. vg1 0 in. (152.40 cm); Pain 10/10; 13:31 BP 166 / 73; Pulse 81; Pulse Ox 91% on R/A; ap3 14:24 BP 131 / 77 LA (auto/reg); Pulse 74; Resp 19; Pulse Ox 100% on R/A; ap3 10:10 Body Mass Index 21.48 (49.90 kg, 152.40 cm) vg1 ED Course: 09:47 Patient arrived in ED. mr 10:14 Triage completed. vg1 10:14 Arm band placed on Patient placed in waiting room, Patient notified of wait time. vg1 10:15 Ju[facility] Hyatt [facility]NP-C [facility] kb 10:15 Bob Lam MD is Attending Physician. kb 11:51 Monserrat Shahid, RN is Primary Nurse. ap3 11:51 Bob Lam MD is Attending Physician. rn 12:18 Patient has correct armband on for positive identification. Bed in low position. Call ap3 light in reach. Side rails up X2. Adult w/ patient. Pulse ox on. NIBP on. Door closed. Noise minimized. 12:50 Inserted saline lock: 22 gauge in right upper arm, using aseptic technique. ,using aa5 aseptic technique. Diffusics IV. 13:18 CT Abd/Pelvis - IV Contrast Only In Process Unspecified. EDMS Administered Medications: 12:25 Drug: Magnesium Citrate Liquid 300 ml {Note: provided to patient. .} Route: PO; ap3 14:46 Follow up: Response: Other ap3 13:30 Drug: NS 0.9% 500 ml Route: IV; Rate: bolus; Site: right upper arm; ap3 14:46 Follow up: IV Status: Completed infusion; IV Intake: 500ml ap3 Intake: 14:46 IV: 500ml; Total: 500ml. ap3 Outcome: 14:33 Discharge ordered by . rn 14:46 Patient left the ED. ap3 Signatures: Dispatcher [employer] EDMS Juany Hyatt, MANAGER MEDIA-C MANAGER MEDIA-Ckb Serena Leung mr Bob Lam MD MD rn Calderon, Audri, RN RN aa5 Monserrat Shahid, RN RN ap3 Gilma Winkler, RN RN vg1
[2020-10-20 07:19] VITALS: TEMP 98.5
[2020-10-20 07:23] VITALS: BP 131/77; O2SAT 100
== END 2020-10-18 14:46 | disposition home or self-care (01) ==
LOC: ER 09:45
DX: K59.00 Constipation, unspecified (principal); I10 Essential (primary) hypertension; E78.00 Pure hypercholesterolemia, unspecified; E03.9 Hypothyroidism, unspecified; Z79.01 Long term (current) use of anticoagulants; Z88.0 Allergy status to penicillin; Z88.1 Allergy status to other antibiotic agents; Z88.5 Allergy status to narcotic agent
CPT/HCPCS: 85025; 80048; 36415; 80076; 83690; 74177; Q9967; J7040

== ENCOUNTER 2022-01-19 18:08 | Emergency (ER) | payer OTHER ==
--- OUTSIDE RECORDS SUMMARY | 2022-01-19 18:21 | XMS REPORT | Continuity of Care Document ---
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 Travel 1.2.840.1 1.2.539.436 7180 [id number] Methodi 00:00:00 00:00:[address] 3.430.2.7 0.2.7.3.698 Ho spita .3.040382 084.8 l .8 2021-12-28 2021-12-28 Outpatient GALEN [facility] [id number] Smilax 00:00:00 00:00:00 POLI [address] 2021-12-23 2021-12-23 Orders Galen, 1.2.840.1 [id number] Methodi 00:00:00 00:00:00 Only Poli 70916.1.[address] 3.430.2.7 Hospi ta .3.199248 l .8 2021-12-23 2021-12-23 Refill Galen, 1.2.840.1 [id number] 03988 Methodi 00:00:00 00:00:[address] 3.430.2.7 Hospi ta .3.722621 l .8 2021-12-21 2021-12-21 Office Adrianna Miranda 1.2.840.1 [id number] 054 [id number] Methodi 08:50:00 11:59:46 [address] B. 13936.1.[address] 3.430.2.7 Hospit a .3.597673 l .8 2021-12-21 2021-12-21 Office Galen, 1.2.840.1 [id number] 52455 Methodi 10:00:00 10:41:23 Visit Poli 91354.1.[address] 3.430.2.7 Hospi ta .3.168242 l .8 2021-12-21 2021-12-21 Travel 1.2.840.1 1.2.032.084 9344 068021 Methodi 00:00:00 00:00:[address] 3.430.2.7 0.2.7.3.698 Ho spita .3.433524 084.8 l .8 2021-12-21 2021-12-21 Outpatient ADRIANNA MIRANDA [facility] 2100 [id number] Smilax 00:00:00 00:00:[address] 2021-12-21 2021-12-21 Outpatient GALEN [facility] [id number] 0337 Smilax 00:00:00 00:00:[address] POLI [address] 2021-12-17 2021-12-17 Refill Galen, 1.2.840.1 [id number] Methodi 00:00:00 00:00:[address] 3.430.2.7 Hospi ta .3.699001 l .8 2021-12-16 2021-12-16 Telephone Theodore 1.2.840.1 [id number] 21 [id number] Methodi 00:00:00 00:00:[address] 3.430.2.7 Hospit a .3.693571 l .8 2021-12-14 2021-12-14 Outpatient ADRIANNA MIRANDA [facility] 2100 [id number] Smilax 00:00:00 00:00:[address] 2021-12-07 2021-12-07 Office Adrianna Miranda 1.2.840.1 [id number] 303 [id number] Methodi 10:20:00 11:37:[address]5599.1.[address] 3.430.2.7 Hospit a .3.602681 l .8 2021-12-07 2021-12-07 Travel 1.2.840.1 1.2.209.501 8958 [id number] Methodi 00:00:00 00:00:[address] 3.430.2.7 0.2.7.3.698 Ho spita .3.167800 084.8 l .8 2021-12-07 2021-12-07 Outpatient ADRIANNA MIRANDA [facility] 2100 [id number] Smilax 00:00:00 00:00:[address] 2021-11-29 2021-11-29 Travel 1.2.840.1 1.2.471.688 7284 145508 Methodi 00:00:00 00:00:[address] 3.430.2.7 0.2.7.3.698 Ho spita .3.374993 084.8 l .8 2021-11-16 2021-11-16 Refill Galen, 1.2.840.1 [id number] 70811 Methodi 00:00:00 00:00:[address] 3.430.2.7 Hospi ta .3.195791 l .8 2021-10-26 2021-10-26 Telephone Galen, 1.2.840.1 [id number] 537 [id number] Methodi 00:00:00 00:00:[address] 3.430.2.7 Hospi ta .3.698633 l .8 2021-10-24 2021-10-24 Telephone Galen, 1.2.840.1 [id number] 407 [id number] Methodi 00:00:00 00:00:[address] 3.430.2.7 Hospi ta .3.007975 l .8 2021-10-21 2021-10-21 Telephone Galen, 1.2.840.1 [id number] 908 [id number] Methodi 00:00:00 00:00:[address] 3.430.2.7 Hospi ta .3.321630 l .8 2021-10-20 2021-10-20 Telephone [place], 1.2.840.1 [id number] 262 [id number] Methodi 00:00:00 00:00:[address] 3.430.2.7 Hospi ta .3.112328 l .8 2021-10-11 2021-10-11 Telephone [place], 1.2.840.1 [id number] 511 [id number] Methodi 00:00:00 00:00:[address] 3.430.2.7 Hospi ta .3.656431 l .8 2021-10-06 2021-10-06 Office [place], 1.2.840.1 [id number] 21237 79155 Methodi 15:15:00 15:51:36 Visit Poli 41639.1.[address] 3.430.2.7 Hospi ta .3.267718 l .8 2021-10-06 2021-10-06 Travel 1.2.840.1 1.2.948.367 1769 [id number] Methodi 00:00:00 00:00:[address] 3.430.2.7 0.2.7.3.698 Ho spita .3.538442 084.8 l .8 2021-10-06 2021-10-06 Outpatient [facility] [id number] Smilax 00:00:00 00:00:00 POLI [address] 2021-10-04 2021-10-04 Telephone [place], 1.2.840.1 [id number] 063 [id number] Methodi 00:00:00 00:00:[address] 3.430.2.7 Hospi ta .3.939627 l .8 2021-10-03 2021-10-03 Telephone Jose, 1.2.840.1 [id number] 390 [id number] Methodi 00:00:00 00:00:[address] 3.430.2.7 Hospit a .3.844735 l .8 2021-09-28 2021-09-28 Office Adrianna Miranda 1.2.840.1 [id number] 705 [id number] Methodi 14:30:00 16:45:56 Visit B. 87695.1.[address] 3.430.2.7 Hospit a .3.687667 l .8 2021-09-28 2021-09-28 Travel 1.2.840.1 1.2.007.598 2431 615547 Methodi 00:00:00 00:00:[address] 3.430.2.7 0.2.7.3.698 Ho spita .3.113795 084.8 l .8 2021-09-28 2021-09-28 Outpatient AUBRIE MIRANDAY [facility] 2100 [id number] Smilax 00:00:00 00:00:[address] 2021-09-28 2021-09-28 Outpatient AUBRIE MIRANDAY [facility] 2100 [id number] Smilax 00:00:00 00:00:[address] 2021-09-19 2021-09-19 Travel 1.2.840.1 1.2.656.534 7029 277160 Methodi 00:00:00 00:00:[address] 3.430.2.7 0.2.7.3.698 Ho spita .3.746660 084.8 l .8 2021-09-12 2021-09-12 Travel 1.2.840.1 1.2.300.637 3121 625159 Methodi 00:00:00 00:00:[address] 3.430.2.7 0.2.7.3.698 Ho spita .3.514530 084.8 l .8 2021-08-15 2021-08-15 Telephone [place], 1.2.840.1 [id number] 500 [id number] Methodi 00:00:00 00:00:[address] 3.430.2.7 Hospi ta .3.246070 l .8 2021-07-04 2021-07-04 Telephone Galen, 1.2.840.1 [id number] 067 [id number] Methodi 00:00:00 00:00:[address] 3.430.2.7 Hospi ta .3.353925 l .8 2021-06-27 2021-06-27 Telephone [place], 1.2.840.1 [id number] 253 [id number] Methodi 00:00:00 00:00:[address] 3.430.2.7 Hospi ta .3.907864 l .8 2021-06-21 2021-06-21 Telephone [place], 1.2.840.1 [id number] 544 [id number] Methodi 00:00:00 00:00:[address] 3.430.2.7 Hospi ta .3.464290 l .8 2021-06-19 2021-06-19 Refill Galen, 1.2.840.1 [id number] 95464 Methodi 00:00:00 00:00:[address] 3.430.2.7 Hospi ta .3.999497 l .8 2021-05-31 2021-05-31 Telephone [place], 1.2.840.1 [id number] 059 [id number] Methodi 00:00:00 00:00:[address] 3.430.2.7 Hospi ta .3.068264 l .8 2021-05-30 2021-05-30 Telephone [place], 1.2.840.1 [id number] 826 [id number] Methodi 00:00:00 00:00:[address] 3.430.2.7 Hospi ta .3.205466 l .8 2021-04-22 2021-04-22 Telephone Galen, 1.2.840.1 [id number] 624 [id number] Methodi 00:00:00 00:00:[address] 3.430.2.7 Hospi ta .3.694704 l .8 2021-04-15 2021-04-15 Refill Galen, 1.2.840.1 [id number] 88463 57563 Methodi 00:00:00 00:00:[address] 3.430.2.7 Hospi ta .3.165747 l .8 2021-04-12 2021-04-12 Telephone [place], 1.2.840.1 [id number] 685 [id number] Methodi 00:00:00 00:00:[address] 3.430.2.7 Hospi ta .3.344918 l .8 2021-04-04 2021-04-04 Orders [place], 1.2.840.1 [id number] 23 Methodi 00:00:00 00:00:00 Only Poli 99905.1.[address] 3.430.2.7 Hospi ta .3.532440 l .8 2021-04-04 2021-04-04 Orders [place], 1.2.840.1 [id number] 54385 Methodi 00:00:00 00:00:00 Only Poli 95068.1.[address] 3.430.2.7 Hospi ta .3.287945 l .8 2021-03-31 2021-03-31 Lab [place], 1.2.840.1 [id number] 67456 Methodi 10:00:00 10:05:[address] 3.430.2.7 Hospi ta .3.277462 l .8 2021-03-31 2021-03-31 Office Galen, 1.2.840.1 [id number] 13400 07531 Methodi 09:15:00 09:51:04 Visit Poli 99345.1.[address] 3.430.2.7 Hospi ta .3.337348 l .8 2021-03-31 2021-03-31 Travel 1.2.840.1 1.2.309.596 9332 893638 Methodi 00:00:00 00:00:[address] 3.430.2.7 0.2.7.3.698 Ho spita .3.778891 084.8 l .8 2021-03-31 2021-03-31 Outpatient GALEN, [facility] [id number] Smilax 00:00:00 00:00:00 POLI [address] 2021-03-31 2021-03-31 Outpatient GALEN, [facility] [id number] 5887 Smilax 00:00:00 00:00:00 POLI [address] 2021-03-30 2021-03-30 Telephone [place], 1.2.840.1 [id number] 683 [id number] Methodi 00:00:00 00:00:[address] 3.430.2.7 Hospi ta .3.704250 l .8 2021-03-29 2021-03-29 Travel 1.2.840.1 1.2.660.928 8302 [id number] Methodi 00:00:00 00:00:[address] 3.430.2.7 0.2.7.3.698 Ho spita .3.116765 084.8 l .8 2021 2021 Refill [place], 1.2.840.1 [id number] 85147 Methodi 00:00:00 00:00:[address] 3.430.2.7 Hospi ta .3.583286 l .8 2021-02-23 2021-02-23 Telephone [place], 1.2.840.1 [id number] 332 [id number] Methodi 00:00:00 00:00:[address] 3.430.2.7 Hospi ta .3.690679 l .8 2021-02-07 2021-02-07 Telephone [place], 1.2.840.1 [id number] 263 [id number] Methodi 00:00:00 00:00:[address] 3.430.2.7 Hospi ta .3.238761 l .8 2021-02-02 2021-02-02 Refill [place], 1.2.840.1 [id number] 22048 34004 Methodi 00:00:00 00:00:[address] 3.430.2.7 Hospi ta .3.697378 l .8 2021-01-31 2021-01-31 Telephone [place], 1.2.840.1 [id number] 203 [id number] Methodi 00:00:00 00:00:[address] 3.430.2.7 Hospi ta .3.584634 l .8 2021-01-14 2021-01-14 [facility] [id number] Smilax 00:00:00 00:00:00 POLI [address] 2021-01-05 2021-01-05 [facility] [id number] 5833 Smilax 00:00:00 00:00:00 POLI [address] 2020-12-28 2020-12-28 [facility] [id number] 1245 Smilax 00:00:00 00:00:00 POLI [address] 2020-12-21 2020-12-21 [facility] [id number] 7852 Smilax 00:00:00 00:00:00 POLI [address] 2020-12-21 2020-12-21 Outpatient GALEN [facility] [id number] 2038 Smilax 00:00:00 00:00:[address] POLI [address] 2020-11-05 2020-11-05 Outpatient GALEN [facility] [id number] Smilax 00:00:00 00:00:[address] POLI [address] 2020-10-25 2020-10-25 Outpatient GALEN [facility] [id number] 6557 Smilax 00:00:00 00:00:00 POLI [address] 2020-08-24 2020-08-24 Outpatient MAYRAKATIUSKA, FB [facility] 7503 [facility] 11:43:00 12:55:00 NERISSA 2020-07-15 2020-07-15 Outpatient GALEN [facility] [id number] Smilax 00:00:00 00:00:00 POLI [address] 2020-07-15 2020-07-15 Outpatient GALEN [facility] [id number] 6593 Smilax 00:00:00 00:00:00 POLI 087 [address] 2020-07-15 2020-07-15 Outpatient GALEN [facility] [id number] 8950 Smilax 00:00:00 00:00:[address] POLI [address] 2020-07-14 2020-07-14 Outpatient ADRIANNA MIRANDA [facility] 2100 [id number] Smilax 00:00:00 00:00:[address] 2020-07-14 2020-07-14 Outpatient ADRIANNA MIRANDA [facility] 2100 [id number] Smilax 00:00:00 00:00:[address] 2020-03-01 2020-03-01 Outpatient GALEN [facility] [id number] Smilax 00:00:00 00:00:00 POLI [address] 2019-12-17 2019-12-17 Outpatient NATHAN ADRIANNA [facility] 2100 [id number] Smilax 00:00:00 00:00:[address] 2019-12-09 2019-12-09 [facility] [id number] Smilax 00:00:00 00:00:00 POLI [address] 2019-12-09 2019-12-09 Outpatient GALEN [facility] [id number] Smilax 00:00:00 00:00:[address] 2019-09-25 2019-09-25 Discharged GRECIA KHAN AL06 [id number] CHRISTU 00:55:00 13:28:[address] Jaun [address] [facility] ([facility] 2019-09-25 2019-09-25 Discharged [place] [id number] CHRISTU 00:55:00 00:55:00 Inpatient KARI 45 S (obs) [facility] 2019-08-26 2019-08-26 [facility] [id number] Smilax 00:00:00 00:00:00 POLI [address] 2019-07-29 2019-07-29 Outpatient KARLA SchroederCL OUTD [id number] [facility] 12:10:00 12:10:00 Robi 89 [facility] 2019-07-29 2019-07-29 Outpatient HALIMA Us 3DAY [id number] [facility] 00:00:00 00:00:00 Robi 92 [facility] 2019-07-19 2019-07-19 Outpatient KARLA WilsonWU SURG [id number] [facility] 12:00:00 12:00:00 Salim 28 [facility] 2019-05-21 2019-05-21 [facility] [id number] Smilax 00:00:00 00:00:00 POLI [address] 2019-04-21 2019-04-21 Outpatient MHFB [facility]FB 7502 [facility]FB 11:41:00 11:41:00 Results Test Description Test Time Test Comments Results Result Comments Source Comprehensive metabolic panel 2021-12-23 13:06:00 Test Item Value Reference Range Interpretation Comme nts Glucose (test code = 117 mg/dL 65-99 H Fastin g reference 2345-7) interval For so meone without known d iabetes, a glucose valuebe tween 100 and 125 mg/dL i s consistent withprediabetes and should be confi rmed with afollow-up test . BUN (test code = 3094-0) 17 mg/dL 7-25 Creatinine (test code = 0.89 mg/dL 0.60-0.95 2160-0) eGFR (test code = 8257) See_Comment The eGFR is based on the CKD-EPI 2020 eq uation. To calculate the n ew eGFR from a previous Creatinine or C juanjotajessee Floresult, go to https://www.kid raymond.org/pr ofessionals/kdo qi/gfr%5Fc alculator [Auto mated message] The sy stem which generated this result transmitted ref erence range: > OR = 6 0 mL/min/1.73m2. The reference range was not used to interpr et this result as normal/abnormal . BUN/creatinine ratio NOT APPLICABLE See_Comment [Aut omated message] The (test code = 3097-3) system which generated this result tra nsmitted reference range : 6 - 22 (calc). The ref erence range was not u sed to interpret this result as normal/abnormal . Sodium (test code = 142 mmol/L 076-058 8613-2) Potassium (test code = 3.8 mmol/L 3.5-5.3 2823-3) Chloride (test code = 100 mmol/L 98-110 2075-0) CO2 (test code = 2027-9) 32 mmol/L 20-32 Calcium (test code = 10.4 mg/dL 8.6-10.4 39249-1) Protein (test code = 7.4 g/dL 6.1-8.1 2885-2) Albumin, S (test code = 4.8 g/dL 3.6-5.1 1751-7) Globulin, total (test See_Comment [Auto mated message] The code = 37020-0) system which generated this result tra nsmitted reference range : 1.9 - 3.7 g/dL (calc) . The reference range was not used to interpr et this result as normal/abnormal . Albumin/globulin ratio See_Comment [Aut omated message] The (test code = 1759-0) system which generated this result tra nsmitted reference range : 1.0 - 2.5 (calc). The reference range was not u sed to interpret this result as normal/abnormal . Total bilirubin (test 0.6 mg/dL 0.2-1.2 code = 1975-2) Alkaline phosphatase 43 U/L 37-153 (test code = 6768-6) AST (test code = 1920-8) 22 U/L 10-35 ALT (test code = 1742-6) 17 U/L 6-29 BANDAR (test code = BANDAR) FASTING:YES FASTING: YES RAC (test code = RAC) Performing Organization Information: Site ID: RGA Name: [facility] Address: [address] [place] [id number] Director: Robi Rodas Lab Interpretation (test Abnormal code = 61169-6) [facility] [id number] 13:06:00 Test Item Value Reference Range Interpretation Comments Cholesterol, total 202 mg/dL See_Comment H [Automat ed (test code = 2093-3) message ] The system which generated this result transmitted reference range : <=200. The reference range was not used to interpret this result as normal/abnormal . HDL cholesterol 62 mg/dL See_Comment [Automated (test code = 2085-9) message ] The system which generated this result transmitted reference range : > OR = 50. The reference range was not used to interpret this result as normal/abnormal . Triglycerides (test 113 mg/dL See_Comment [Automa danielle code = 2571-8) message] The system which generated this result transmitted reference range : <=150. The reference range was not used to interpret this result as normal/abnormal . LDL cholesterol mg/dL (calc) H Reference ra nge: calculated (test <100 Desira ble code = 91962-2) range <100 m g/dL for primary prevention; <70 mg/dL for patients with C HD or diabetic patients with > or = 2 CHD risk factors. LDL-C is now calculated using the Pradeep calculation, which is a validated novel method providin g better accuracy than the Friedewald equation in the estimation of LDL-C. Geoff Elizabeth S et al. MARY. 2013;310(19): 0682-7387 (http://educati on .[employer] .com/faq/ZNK416 ) Cholesterol/HDL See_Comment [Automated ratio (test code = message] The 9830-1) system which generated this result transmitted reference range : <5.0 (calc). Th e reference range was not used to interpret this result as normal/abnormal . Non-HDL cholesterol See_Comment H For rolly ents with (test code = diabetes plus 1 27996-3) major ASCVD ris k factor, treatin g to a non-HDL-C goal of <100 mg/dL (LDL-C of <70 mg/dL) is considered a therapeutic option. [Automated message] The system which generated this result transmitted reference range : <130 mg/dL (calc). The reference range was not used to interpret this result as normal/abnormal . BANDAR (test code = FASTING:YES BANDAR) FASTING: YES RAC (test code = Performing RAC) Organization Information: Site ID: RGA Name: [facility] Lab Address: [address] [place] [phone] Director: Robi Rodas Lab Interpretation Abnormal (test code = 52852-7) [facility] [id number] 13:06:00 Test Item Value Reference Range Interpretation Comments Hemoglobin A1C See_Comment For the purpo se of (test code = screening for t he 4548-4) presence ofdiab etes: <5.7% Consisten t with the absence of diabetes5.7-6.4 % Consistent with increased risk for diabetes (prediabetes)> or =6.5% Consisten t with diabetes This a ssay result is consi stent with a decrease d riskof diabetes . Currently, no consensus exist s regarding use ofhemoglobin A1 c for diagnosis of di abetes in children. According to [place] Diabetes Associ ation (ADA)guidelines , hemoglobin A1c <7.0% represents optimalcontrol in non- di abetic patients. Differentmetric s may apply to specif ic patient populat ions. Standards of [place] dical Care in Diabetes(ADA). [Automated mess age] The system whic h generated this result transmitted ref erence range: <5.7 % o f total Hgb. The reference range was not used to int erpret this result as normal/abnormal . BANDAR (test code = FASTING:YES BANDAR) FASTING: YES RAC (test code = Performing RAC) Organization Information: Site ID: SAL Name: [employer] Lab Address: [address] [place] [phone] Director: Robi Rodas [facility] System[facility] stimulating [id number] 13:06:00 Test Item Value Reference Range Interpretation Comments TSH (test code = See_Comment L [Automated 3016-3) message] The system which generated this result transmitted reference range : 0.40 - 4.50 mIU/L. The reference range was not used to interpret this result as normal/abnormal . BANDAR (test code = FASTING:YES BANDAR) FASTING: YES RAC (test code = Performing RAC) Organization Information: Site ID: SAL Name: [facility] Address: [address] [place] [id number] Director: Robi Rodas Lab Interpretation Abnormal (test code = 93033-3) [facility] with platelet and [id number] 13:06:00 Test Item Value Reference Range Interpretation Comments WBC (test code = See_Comment [Automated 8190-2) message] The system which generated this result transmitted reference range : 3.8 - 10.8 Thousand/uL. Th e reference range was not used to interpret this result as normal/abnormal . RBC (test code = See_Comment [Automated 479-8) message] The system which generated this result transmitted reference range : 3.80 - 5.10 Million/uL. The reference range was not used to interpret this result as normal/abnormal . HGB (test code = 12.9 g/dL 11.7-15.5 718-7) HCT (test code = 38.6 % 35.0-45.0 4544-3) MCV (test code = 91.0 fL 80.0-100.0 787-2) MCH (test code = 30.4 pg 27.0-33.0 785-6) MCHC (test code = 33.4 g/dL 32.0-36.0 786-4) RDW (test code = 12.4 % 11.0-15.0 788-0) Platelet count (test See_Comment [Autom ated code = 777-3) message] The system which generated this result transmitted reference range : 140 - 400 Thousand/uL. Th e reference range was not used to interpret this result as normal/abnormal . MPV (test code = 10.3 fL 7.5-12.5 776-5) Neutrophils, See_Comment H [Automated absolute (test code message] The = 751-8) system which generated this result transmitted reference range : 1,500 - 7,800 cells/uL. The reference range was not used to interpret this result as normal/abnormal . Lymphocytes, See_Comment [Automated absolute (test code message] The = 731-0) system which generated this result transmitted reference range : 850 - 3,900 cells/uL. The reference range was not used to interpret this result as normal/abnormal . Monocytes, absolute See_Comment [Automa danielle (test code = 742-7) message] The system which generated this result transmitted reference range : 200 - 950 cells/uL. The reference range was not used to interpret this result as normal/abnormal . Eosinophils, See_Comment L [Automated absolute (test code message] The = 711-2) system which generated this result transmitted reference range : 15 - 500 cells/uL. The reference range was not used to interpret this result as normal/abnormal . Basophils, absolute See_Comment [Automa danielle (test code = 704-7) message] The system which generated this result transmitted reference range : 0 - 200 cells/u L. The reference range was not used to interpr et this result as normal/abnormal . Neutrophils (test 83.9 % code = 770-8) Lymphocytes (test 10.7 % code = 736-9) Monocytes (test code 5.3 % = 5905-5) Eosinophils (test 0.0 % code = 713-8) Basophils + RC (test 0.1 % code = 706-2) BANDAR (test code = FASTING:YES BANDAR) FASTING: YES RAC (test code = Performing RAC) Organization Information: Site ID: RGA Name: [facility] Address: [address] [place] [id number] Director: Robi Rodas Lab Interpretation Abnormal (test code = 07629-7) [facility] System[facility], automated with hipodchbqh8277-04-69 13:06:00 Test Item Value Reference Range Interpretation Comments Color, UA (test code YELLOW YELLOW = 5778-6) Appearance (test CLEAR CLEAR code = 5767-9) Specific gravity, 1.001-1.035 urine (test code = 5811-5) pH, urine (test code 5.0-8.0 = 5803-2) Glucose, urine (test NEGATIVE NEGATIVE code = 41834-1) Bilirubin, UA (test NEGATIVE NEGATIVE code = 5770-3) Ketones, UA (test NEGATIVE NEGATIVE code = 2514-8) Occult blood, urine NEGATIVE NEGATIVE (test code = 5794-3) Protein, UA (test TRACE NEGATIVE A code = 87323-0) Nitrite, UA (test NEGATIVE NEGATIVE code = 5802-4) Leukocyte esterase, TRACE NEGATIVE A UA (test code = 5799-2) WBC, UA (test code = NONE SEEN See_Comment [Autom ated 5821-4) message] The system which generated this result transmitted reference range : < OR = 5 /HPF. The reference range was not used to interpr et this result as normal/abnormal . RBC, UA (test code = NONE SEEN See_Comment [Autom ated 17949-6) message] The system which generated this result transmitted reference range : < OR = 2 /HPF. The reference range was not used to interpr et this result as normal/abnormal . Squamous epithelial 0-5 See_Comment [Automa danielle cells, UA (test code message ] The = 40545-3) system which generated this result transmitted reference range : < OR = 5 /HPF. The reference range was not used to interpr et this result as normal/abnormal . Bacteria, UA (test NONE SEEN NONE SEEN /HPF code = 5769-5) Hyaline casts, UA NONE SEEN NONE SEEN /LPF (test code = 5796-8) Note: (test code = This urin e was 8251-1) analyzed for th e presence of WBC , RBC, bacteria, casts, and othe r formed elements . Only those elements seen were reported. BANDAR (test code = FASTING:YES BANDAR) FASTING: YES RAC (test code = Performing RAC) Organization Information: Site ID: RGA Name: [facility] Address: [address] [place] [address] Director: Robi Rodas Lab Interpretation Abnormal (test code = 55380-5) [facility] SystemVitamin D 25 hydroxy [id number] 13:06:00 Test Item Value Reference Range Interpretation Comments Vitamin D, 71 ng/mL 30-100 Vitamin D Statu s 25-hydroxy (test 25-OH Vitam in D: code = 1989-) Deficiency: < 20 ng/mLInsufficie ncy : 20 - 29 ng/mLOptimal: > or = 30 ng/mL For 25-OH Vitamin D testing on patients on D2-supplementat ion and patients fo r whom quantitati on of D2 and D3 fractions is required, the QuestAssureD(TM )25 -OH VIT D, (D2,D3), LC/MS/ MS is recommended: order code 9288 8 (patients >2yrs).See Note 1 Note 1 For additional information, please refer to [email or web address]://educatio [email or web address] uestDiagnostics .co m/faq/EQY878 (T his link is being provided for informational/e sunil ational purpose s only.) BANDAR (test code = FASTING:YES FASTING: BANDAR) YES RAC (test code = Performing RAC) Organization Information: Site ID: RGA [facility] Address: [address] [place] [address] Director: Robi Rodas [facility] SystemHSV 1 and 2 specific Ab [id number] 00:13:00 Test Item Value Reference Interpretation Comments Range HSV 1 IgG (test index H code = 5206-8) HSV 2 IgG (test index H Index Inter pretation code = 5209-2) ----- ------- ------- <0.90 Negative 0.90-1.09 Equiv ocal >1.09 Positive This assay utilizes recombinant type-specific antigensto differentiate H SV-1 from HSV-2 infections. Apo sitive result cannot distinguish bet ween recent andpast infection. If r ecent HSV infection i s suspectedbut th e results are neg ative or equivocal, t he assayshould be repeated in 4-6 weeks. The performancechar acteri stics of the as say have not been establishedfor pediatric populations, immunocompromis ed patients,or rei fantasma screening. RAC (test code = Performing RAC) Organization Information: Site ID: IG Name: [facility] Address: [address] [place] [id number] Director: Dr. Robi Rodas Lab Interpretation Abnormal (test code = 63304-2) [facility] I mgdgepdus0689-67-61 12:00:00 Test Item Value Reference Range Interpretation Comments Troponin I (test code = 90584-1) 0.389 ng/mL 0.00-0.045 [facility] HealthTroponin I chqdvxdgx6527-39-37 12:00:00 Test Item Value Reference Range Interpretation Comments Troponin I (test code = 31048-7) 0.389 ng/mL Sodium measurement (moles/volume)2019-09-25 04:50:00 Test Item Value Reference Range Interpretation Comments Sodium Level (test code = 39508-7) 139 mmol/L 131-143 [facility] HealthSerum or plasma potassium measurement (moles/volume)2019-09-25 04:50:00 Test Item Value Reference Range Interpretation Comments Potassium Level (test code = 4.3 mmol/L 3.5-5.1 2823-3) [facility] HealthSerum or plasma chloride measurement (moles/volume)2019-09-25 04:50:00 Test Item Value Reference Range Interpretation Comments Chloride Level (test code = 105 mmol/L 98-107 2075-0) [facility] HealthSerum or plasma carbon dioxide measurement (moles/volume) 2019-09-25 04:50:00 Test Item Value Reference Range Interpretation Comments Carbon Dioxide Level (test code = 27 mmol/L 21-32 8-9) [facility] HealthSerum or plasma anion [id number] 04:50:00 Test Item Value Reference Range Interpretation Comments Anion Gap (test code = 88871-3) 7.0 mmol/L 3.0-11.0 [facility] HealthSerum or plasma urea nitrogen measurement (mass/volume)2019-09-25 04:50:00 Test Item Value Reference Range Interpretation Comments Blood Urea Nitrogen (test code = 23.0 mg/dL 7.0-18.0 3094-0) [facility] HealthSerum or plasma creatinine measurement (mass/volume)2019-09-25 04:50:00 Test Item Value Reference Range Interpretation Comments Creatinine (test code = 2160-0) 0.958 mg/dL 0.550-1.02 [facility] HealthGFR estimate [id number] 04:50:00 Test Item Value Reference Range Interpretation Comments Estimat Glomerular Filtration Rate 56 >60 (test code = 78068-5) [facility] HealthSerum or plasma glucose measurement (mass/volume)2019-09-25 04:50:00 Test Item Value Reference Range Interpretation Comments Glucose Level (test code = 2345-7) 102 mg/dL 74-106 [facility] HealthSerum or plasma calcium measurement (mass/volume)2019-09-25 04:50:00 Test Item Value Reference Range Interpretation Comments Calcium Level (test code = 67692-1) 9.5 mg/dL 8.5-10.1 [facility] HealthSerum or plasma creatine kinase MB measurement (mass/volume) 2019-09-25 04:50:00 Test Item Value Reference Range Interpretation Comments Creatine Kinase MB (test code = 3.3 ng/mL 0.3-3.6 10754-4) [facility] HealthSerum or plasma C reactive protein measurement (mass/volume) 2019-09-25 04:50:00 Test Item Value Reference Range Interpretation Comments C-Reactive Protein, Quantitative < 0.29 mg/dL 0.00-0.30 (test code = 1988-5) [facility] HealthAutomated blood leukocyte count (number/volume)2019-09-25 04:50:00 Test Item Value Reference Range Interpretation Comments White Blood Count (test code = 7.7 10*3/uL 4.5-10.0 6690-2) [facility] HealthBlood erythrocytes automated count (number/volume)2019-09-25 04:50:00 Test Item Value Reference Range Interpretation Comments Red Blood Count (test code = 4.20 10*6/uL 4.20-5.40 789-8) [facility] HealthBlood hemoglobin measurement (mass/volume)2019-09-25 04:50:00 Test Item Value Reference Range Interpretation Comments Hemoglobin (test code = 718-7) 12.3 g/dL 12.0-16.0 [facility] HealthAutomated blood hematocrit (volume fraction)2019-09-25 04:50:00 Test Item Value Reference Range Interpretation Comments Hematocrit (test code = 4544-3) 38.4 % 37.0-47.0 [facility] HealthAutomated erythrocyte mean corpuscular volume (MCV) measurement 2019-09-25 04:50:00 Test Item Value Reference Range Interpretation Comments Mean Corpuscular Volume (test code = 91.4 fL 80.0-99.0 787-2) [facility] HealthAutomated erythrocyte mean corpuscular hemoglobin (mass per erythrocyte)2019-09-25 04:50:00 Test Item Value Reference Range Interpretation Comments Mean Corpuscular Hemoglobin (test 29.3 pg 27.0-32.0 code = 785-6) [facility] HealthAutomated erythrocyte mean corpuscular hemoglobin concentration (MCHC) measurement ([id number] 04:50:00 Test Item Value Reference Range Interpretation Comments Mean Corpuscular Hemoglobin Concent 32.0 % 32.0-36.0 (test code = 786-4) [facility] HealthAutomated erythrocyte distribution width tlhce6423-19-71 04:50:00 Test Item Value Reference Range Interpretation Comments Red Cell Distribution Width (test code 13.0 % 0.0-15.5 = 788-0) [facility] HealthAutomated blood platelet count (count/volume)2019-09-25 04:50:00 Test Item Value Reference Range Interpretation Comments Platelet Count (test code = 287 10*3/uL 130-400 777-3) [facility] HealthAutomated blood platelet mean volume pbwkxtyqhhx3496-34-99 04:50:00 Test Item Value Reference Range Interpretation Comments Mean Platelet Volume (test code = 10.2 fL 9.2-12.2 90420-5) [facility] HealthAutomated blood neutrophil count as percentage of total oawtzwhchy2924-92-84 04:50:00 Test Item Value Reference Range Interpretation Comments Neutrophils (%) (Auto) (test code = 67.2 % 50-80 770-8) [facility] HealthAutomated blood immature granulocyte count as percentage of total fkwdyoufvu9898-01-19 04:50:00 Test Item Value Reference Range Interpretation Comments Immature Granulocyte % (Auto) (test 0.50 % 0.0-0.43 code = 86147-6) [facility] HealthAutomated blood lymphocyte count as percentage of total gcupnzemrf8268-09-65 04:50:00 Test Item Value Reference Range Interpretation Comments Lymphocytes (%) (Auto) (test code = 20.4 % 20.0-45.0 736-9) [facility] HealthAutomated blood monocyte count as percentage of total leukocytes 2019-09-25 04:50:00 Test Item Value Reference Range Interpretation Comments Monocytes (%) (Auto) (test code = 8.0 % 2-10 5905-5) [facility] HealthAutomated blood eosinophil count as percentage of total krioqddsns8661-57-72 04:50:00 Test Item Value Reference Range Interpretation Comments Eosinophils (%) (Auto) (test code = 3.1 % 0-6 713-8) [facility] HealthAutomated blood basophil count as percentage of total leukocytes 2019-09-25 04:50:00 Test Item Value Reference Range Interpretation Comments Basophils (%) (Auto) (test code = 0.8 % 0-3 706-2) [facility] HealthAutomated blood nucleated erythrocyte count as percentage of total joydtnijns2401-26-76 04:50:00 Test Item Value Reference Range Interpretation Comments Nucleated Red Blood Cells % (test code 0.0 % 0-0.2 = 83297-4) [facility]Automated blood neutrophil count (number/volume)2019-09-25 04:50:00 Test Item Value Reference Range Interpretation Comments Neutrophils # (Auto) (test code = 5.2 10*3/uL 1.4-7.0 751-8) [facility] HealthAutomated blood immature granulocyte count as percentage of total xqocaiipyu0339-80-86 04:50:00 Test Item Value Reference Range Interpretation Comments Immature Granulocyte # (Auto) (test 0.0400 0.0-0.0310 code = 79858-9) [facility] HealthAutomated blood lymphocyte count (number/volume)2019-09-25 04:50:00 Test Item Value Reference Range Interpretation Comments Lymphocytes # (Auto) (test code = 1.6 10*3/uL 1.2-4.0 731-0) [facility] HealthBlood monocytes automated count (number/volume)2019-09-25 04:50:00 Test Item Value Reference Range Interpretation Comments Monocytes # (Auto) (test code = 0.6 10*3/uL 0.1-0.8 742-7) [facility] HealthAutomated blood eosinophil bqvdc0200-24-04 04:50:00 Test Item Value Reference Range Interpretation Comments Eosinophils # (Auto) (test code = 0.2 10*3/uL 0.0-0.6 711-2) [facility] HealthAutomated blood basophil count (number/volume)2019-09-25 04:50:00 Test Item Value Reference Range Interpretation Comments Basophils # (Auto) (test code = 0.1 10*3/uL 0.0-0.3 704-7) [facility] HealthAutomated blood leukocyte count corrected for nucleated dusugrecziyh9727-70-01 04:50:00 Test Item Value Reference Range Interpretation Comments Nucleated Red Blood Cells # (test code 0.000 0-0.012 = 04966-1) [facility] HealthBlood erythrocyte sedimentation rate (ESR) measurement by photometricmethod (length/a0625-56-27 04:50:00 Test Item Value Reference Range Interpretation Comments Erythrocyte Sedimentation Rate (test 7 mm/h 0-20 code = 58693-8) [facility] HealthAutomated blood leukocyte count (number/volume)2019-09-25 04:50:00 Test Item Value Reference Range Interpretation Comments White Blood Count (test code = 7.7 10*3/uL 6690-2) Blood erythrocytes automated count (number/volume)2019-09-25 04:50:00 Test Item Value Reference Range Interpretation Comments Red Blood Count (test code = 4.20 10*6/uL 789-8) Blood hemoglobin measurement (mass/volume)2019-09-25 04:50:00 Test Item Value Reference Range Interpretation Comments Hemoglobin (test code = 718-7) 12.3 g/dL Automated blood hematocrit (volume fraction)2019-09-25 04:50:00 Test Item Value Reference Range Interpretation Comments Hematocrit (test code = 4544-3) 38.4 % Automated erythrocyte mean corpuscular volume (MCV) mrrsxrhxsyp5271-63-80 04:50:00 Test Item Value Reference Range Interpretation Comments Mean Corpuscular Volume (test code = 91.4 fL 787-2) Automated erythrocyte mean corpuscular hemoglobin (mass per erythrocyte) 2019-09-25 04:50:00 Test Item Value Reference Range Interpretation Comments Mean Corpuscular Hemoglobin (test 29.3 pg code = 785-6) Automated erythrocyte mean corpuscular hemoglobin concentration (MCHC) measurement (q7446-35-90 04:50:00 Test Item Value Reference Range Interpretation Comments Mean Corpuscular Hemoglobin Concent 32.0 % (test code = 786-4) Automated erythrocyte distribution width ghvod2615-35-45 04:50:00 Test Item Value Reference Range Interpretation Comments Red Cell Distribution Width (test code 13.0 % = 788-0) Automated blood platelet count (count/volume)2019-09-25 04:50:00 Test Item Value Reference Range Interpretation Comments Platelet Count (test code = 287 10*3/uL 777-3) Automated blood platelet mean volume dhiytsksyix5566-14-22 04:50:00 Test Item Value Reference Range Interpretation Comments Mean Platelet Volume (test code = 10.2 fL 83794-2) Automated blood neutrophil count as percentage of total adxdbxfnyw9833-85-71 04:50:00 Test Item Value Reference Range Interpretation Comments Neutrophils (%) (Auto) (test code = 67.2 % 770-8) Automated blood immature granulocyte count as percentage of total leukocytes 2019-09-25 04:50:00 Test Item Value Reference Range Interpretation Comments Immature Granulocyte % (Auto) (test 0.50 % code = 02086-0) Automated blood lymphocyte count as percentage of total xzswilpgyi2717-37-78 04:50:00 Test Item Value Reference Range Interpretation Comments Lymphocytes (%) (Auto) (test code = 20.4 % 736-9) Automated blood monocyte count as percentage of total ntrzsllynq1452-62-79 04:50:00 Test Item Value Reference Range Interpretation Comments Monocytes (%) (Auto) (test code = 8.0 % 5905-5) Automated blood eosinophil count as percentage of total vlsyduiaum5298-74-49 04:50:00 Test Item Value Reference Range Interpretation Comments Eosinophils (%) (Auto) (test code = 3.1 % 713-8) Automated blood basophil count as percentage of total lcrcwglojz1913-31-39 04:50:00 Test Item Value Reference Range Interpretation Comments Basophils (%) (Auto) (test code = 0.8 % 706-2) Automated blood nucleated erythrocyte count as percentage of total leukocytes 2019-09-25 04:50:00 Test Item Value Reference Range Interpretation Comments Nucleated Red Blood Cells % (test code 0.0 % = 51707-1) Automated blood neutrophil count (number/volume)2019-09-25 04:50:00 Test Item Value Reference Range Interpretation Comments Neutrophils # (Auto) (test code = 5.2 10*3/uL 751-8) Automated blood immature granulocyte count as percentage of total leukocytes 2019-09-25 04:50:00 Test Item Value Reference Range Interpretation Comments Immature Granulocyte # (Auto) (test 0.0400 code = 60525-5) Automated blood lymphocyte count (number/volume)2019-09-25 04:50:00 Test Item Value Reference Range Interpretation Comments Lymphocytes # (Auto) (test code = 1.6 10*3/uL 731-0) Blood monocytes automated count (number/volume)2019-09-25 04:50:00 Test Item Value Reference Range Interpretation Comments Monocytes # (Auto) (test code = 0.6 10*3/uL 742-7) Automated blood eosinophil towny8483-03-36 04:50:00 Test Item Value Reference Range Interpretation Comments Eosinophils # (Auto) (test code = 0.2 10*3/uL 711-2) Automated blood basophil count (number/volume)2019-09-25 04:50:00 Test Item Value Reference Range Interpretation Comments Basophils # (Auto) (test code = 0.1 10*3/uL 704-7) Automated blood leukocyte count corrected for nucleated imttqjcltwae0144-52-31 04:50:00 Test Item Value Reference Range Interpretation Comments Nucleated Red Blood Cells # (test code 0.000 = 04955-2) Blood erythrocyte sedimentation rate (ESR) measurement by photometricmethod (length/h1829-59-60 04:50:00 Test Item Value Reference Range Interpretation Comments Erythrocyte Sedimentation Rate (test 7 mm/h code = 07588-9) Sodium measurement (moles/volume)2019-09-25 04:50:00 Test Item Value Reference Range Interpretation Comments Sodium Level (test code = 18717-9) 139 mmol/L Serum or plasma potassium measurement (moles/volume)2019-09-25 04:50:00 Test Item Value Reference Range Interpretation Comments Potassium Level (test code = 4.3 mmol/L 2823-3) Serum or plasma chloride measurement (moles/volume)2019-09-25 04:50:00 Test Item Value Reference Range Interpretation Comments Chloride Level (test code = 105 mmol/L 5-0) Serum or plasma carbon dioxide measurement (moles/volume)2019-09-25 04:50:00 Test Item Value Reference Range Interpretation Comments Carbon Dioxide Level (test code = 27 mmol/L 2027-9) Serum or plasma anion [id number] 04:50:00 Test Item Value Reference Range Interpretation Comments Anion Gap (test code = 48317-6) 7.0 mmol/L Serum or plasma urea nitrogen measurement (mass/volume)2019-09-25 04:50:00 Test Item Value Reference Range Interpretation Comments Blood Urea Nitrogen (test code = 23.0 mg/dL 3094-0) Serum or plasma creatinine measurement (mass/volume)2019-09-25 04:50:00 Test Item Value Reference Range Interpretation Comments Creatinine (test code = 2160-0) 0.958 mg/dL GFR estimate [id number] 04:50:00 Test Item Value Reference Range Interpretation Comments Estimat Glomerular Filtration Rate 56 (test code = 91140-7) Serum or plasma glucose measurement (mass/volume)2019-09-25 04:50:00 Test Item Value Reference Range Interpretation Comments Glucose Level (test code = 2345-7) 102 mg/dL Serum or plasma calcium measurement (mass/volume)2019-09-25 04:50:00 Test Item Value Reference Range Interpretation Comments Calcium Level (test code = 32665-0) 9.5 mg/dL Serum or plasma creatine kinase MB measurement (mass/volume)2019-09-25 04:50:00 Test Item Value Reference Range Interpretation Comments Creatine Kinase MB (test code = 3.3 ng/mL 15257-7) Serum or plasma C reactive protein measurement (mass/volume)2019-09-25 04:50:00 Test Item Value Reference Range Interpretation Comments C-Reactive Protein, Quantitative < 0.29 mg/dL (test code = 1988-5) Serum or plasma magnesium measurement (mass/volume)2019-09-24 22:42:00 Test Item Value Reference Range Interpretation Comments Magnesium Level (test code = 2.3 mg/dL 1.6-2.6 31996-3) [facility]um or plasma total bilirubin measurement (mass/volume) 2019-09-24 22:42:00 Test Item Value Reference Range Interpretation Comments Total Bilirubin (test code = 0.4 mg/dL 0.2-1.0 1974-2) [facility] HealthSerum or plasma aspartate aminotransferase measurement (enzymatic activity/volume)2019-09-24 22:42:00 Test Item Value Reference Range Interpretation Comments Aspartate Amino Transf (AST/SGOT) 27 U/L 15-37 (test code = 1920-8) [facility] HealthSerum or plasma alanine aminotransferase measurement (enzymatic activity/volume)2019-09-24 22:42:00 Test Item Value Reference Range Interpretation Comments Alanine Aminotransferase (ALT/SGPT) 29 U/L 13-56 (test code = 1742-6) [facility] HealthSerum or plasma protein measurement (mass/volume)2019-09-24 22:42:00 Test Item Value Reference Range Interpretation Comments Total Protein (test code = 2885-2) 8.1 g/dL 6.4-8.2 [facility]Serum or plasma albumin measurement (mass/volume)2019-09-24 22:42:00 Test Item Value Reference Range Interpretation Comments Albumin (test code = 1751-7) 4.3 g/dL 3.4-5.0 [facility] HealthSerum or plasma alkaline phosphatase measurement (enzymatic activity/volume)2019-09-24 22:42:00 Test Item Value Reference Range Interpretation Comments Alkaline Phosphatase (test code = 53 U/L 45-117 6768-6) [facility] HealthLactate ser/nqas2677-70-71 22:42:00 Test Item Value Reference Range Interpretation Comments Lactic Acid Level (test code = 1.0 mmol/L 0.4-1.9 2524-7) [facility] HealthSerum or plasma creatine kinase measurement (enzymatic activity/volume)2019-09-24 22:42:00 Test Item Value Reference Range Interpretation Comments Total Creatine Kinase (test code = 413 U/L 26-192 2157-6) [facility] HealthSerum or plasma total creatine kinase/creatine kinase MB isoenzyme activity ksslk6066-28-77 22:42:00 Test Item Value Reference Range Interpretation Comments Creatine Kinase MB Relative Index (test 0.5 % 0-4 code = 2158-4) [facility] HealthTroponin I nuyptehsg5747-37-28 22:42:00 Test Item Value Reference Range Interpretation Comments Troponin I (test code = 87131-8) 0.059 ng/mL 0.00-0.045 [facility] HealthSerum or plasma brain natriuretic peptide (BNP) measurement 2019-09-24 22:42:00 Test Item Value Reference Range Interpretation Comments B-Type Natriuretic Peptide (test 40 pg/mL 0.0-100 code = 01555-4) [facility] HealthSerum or plasma thyrotropin measurement by detection limit <=0.005 miu/l (units/wvcuo1816-65-42 22:42:00 Test Item Value Reference Range Interpretation Comments Thyroid Stimulating Hormone 7.670 u[iU]/mL 0.358-3.74 (TSH) (test code = 40506-5) [facility] HealthSerum or plasma procalcitonin measurement (mass/volume)2019-09-24 22:42:00 Test Item Value Reference Range Interpretation Comments Procalcitonin (test code = < 0.05 ng/mL 0.0-0.5 84274-1) [facility] prothrombin qmhl4853-51-72 22:42:00 Test Item Value Reference Range Interpretation Comments Prothrombin Time (test code = 5964-2) 11.4 s 10.2-12.9 [facility] HealthINR in Platelet poor plasma by Coagulation uejmh2776-05-04 22:42:00 Test Item Value Reference Range Interpretation Comments Prothromb Time International Ratio 1.0 {INR} 0.9-1.1 (test code = 6301-6) [facility] HealthPartial thromboplastin time (PTT) in platelet poor plasma 2019-09-24 22:42:00 Test Item Value Reference Range Interpretation Comments Activated Partial Thromboplast Time 31.7 s 25.1-36.5 (test code = 52847-4) [facility] yjik6018-81-30 22:42:00 Test Item Value Reference Range Interpretation Comments D-Dimer (test code = 10805-8) 262 ng/mL{FEU} 0.00-500 [facility] HealthSerum or plasma thyrotropin measurement by detection limit <=0.005 miu/l (units/clsoq9078-94-57 22:42:00 Test Item Value Reference Range Interpretation Comments Thyroid Stimulating Hormone 7.670 u[iU]/mL (TSH) (test code = 42894-2) Serum or plasma procalcitonin measurement (mass/volume)2019-09-24 22:42:00 Test Item Value Reference Range Interpretation Comments Procalcitonin (test code = < 0.05 ng/mL 55414-3) Whole blood prothrombin [id number] 22:42:00 Test Item Value Reference Range Interpretation Comments Prothrombin Time (test code = 5964-2) 11.4 s INR in Platelet poor plasma by Coagulation vidpt1273-16-83 22:42:00 Test Item Value Reference Range Interpretation Comments Prothromb Time International Ratio 1.0 {INR} (test code = 6301-6) Partial thromboplastin time (PTT) in platelet poor kuwzab9652-37-42 22:42:00 Test Item Value Reference Range Interpretation Comments Activated Partial Thromboplast Time 31.7 s (test code = 28293-1) Fibrin D-dimer FEU yfeo1242-38-30 22:42:00 Test Item Value Reference Range Interpretation Comments D-Dimer (test code = 55174-1) 262 ng/mL{FEU} Serum or plasma magnesium measurement (mass/volume)2019-09-24 22:42:00 Test Item Value Reference Range Interpretation Comments Magnesium Level (test code = 2.3 mg/dL 57981-8) Serum or plasma total bilirubin measurement (mass/volume)2019-09-24 22:42:00 Test Item Value Reference Range Interpretation Comments Total Bilirubin (test code = 0.4 mg/dL 1975-2) Serum or plasma aspartate aminotransferase measurement (enzymatic activity/volume)2019-09-24 22:42:00 Test Item Value Reference Range Interpretation Comments Aspartate Amino Transf (AST/SGOT) 27 U/L (test code = 1920-8) Serum or plasma alanine aminotransferase measurement (enzymatic activity/volume) 2019-09-24 22:42:00 Test Item Value Reference Range Interpretation Comments Alanine Aminotransferase (ALT/SGPT) 29 U/L (test code = 1742-6) Serum or plasma protein measurement (mass/volume)2019-09-24 22:42:00 Test Item Value Reference Range Interpretation Comments Total Protein (test code = 2885-2) 8.1 g/dL Serum or plasma albumin measurement (mass/volume)2019-09-24 22:42:00 Test Item Value Reference Range Interpretation Comments Albumin (test code = 1751-7) 4.3 g/dL Serum or plasma alkaline phosphatase measurement (enzymatic activity/volume) 2019-09-24 22:42:00 Test Item Value Reference Range Interpretation Comments Alkaline Phosphatase (test code = 53 U/L 6768-6) Lactate ser/xugf3412-42-35 22:42:00 Test Item Value Reference Range Interpretation Comments Lactic Acid Level (test code = 1.0 mmol/L 2524-7) Serum or plasma creatine kinase measurement (enzymatic activity/volume) 2019-09-24 22:42:00 Test Item Value Reference Range Interpretation Comments Total Creatine Kinase (test code = 413 U/L 2157-6) Serum or plasma total creatine kinase/creatine kinase MB isoenzyme activity ufznn7511-02-19 22:42:00 Test Item Value Reference Range Interpretation Comments Creatine Kinase MB Relative Index (test 0.5 % code = 2158-4) Troponin I tpjcavebw6329-00-56 22:42:00 Test Item Value Reference Range Interpretation Comments Troponin I (test code = 64721-9) 0.059 ng/mL Serum or plasma brain natriuretic peptide (BNP) awdojjyexrc4076-34-36 22:42:00 Test Item Value Reference Range Interpretation Comments B-Type Natriuretic Peptide (test 40 pg/mL code = 16741-3) Automated bacteria count in urine sediment (number/area)2019-09-24 22:33:00 Test Item Value Reference Range Interpretation Comments Urine Bacteria (test None /[HPF] See_Comment [Autom ated message] code = 38111-9) The system w [facility] generated this result transmitted ref erence range: 0-+/-. T he reference range was not used to int erpret this result as normal/abnormal . [facility]ated mucus count in urine sediment (number/area)2019-09-24 22:33:00 Test Item Value Reference Range Interpretation Comments Urine Mucus (test +/- /[LPF] See_Comment [Automate d message] The code = 59409-6) system which generated this result tra nsmitted reference range : 0-1+. The reference r john was not used to int erpret this result as normal/abnormal . [facility]ated urine yeast count (number/area)2019-09-24 22:33:00 Test Item Value Reference Range Interpretation Comments Urine Yeast (Budding) (test code Rare /[HPF] None Seen = 48890-1) [facility] comment [id number] 22:33:00 Test Item Value Reference Range Interpretation Comments Urine Culture Indicated Yes, Criteria Met (test code = 8264-4) [facility]Bacterial urine ktdnnxz4436-50-54 22:33:00 Test Item Value Reference Range Interpretation Comments Urine Culture (test No growth in 18-24 code = 630-4) hours [facility]Automated urine color hfzzglguaresl7524-87-63 22:33:00 Test Item Value Reference Range Interpretation Comments Urine Color (test code = 36773-1) Yellow Yellow [facility]arity in Urine by Refractometry fyftkbniu5994-77-67 22:33:00 Test Item Value Reference Range Interpretation Comments Urine Appearance (test code = 98704-2) Clear Clear [facility] pH measurement by test roiro3800-08-53 22:33:00 Test Item Value Reference Range Interpretation Comments Urine pH (test code = 5803-2) 7.5 [pH] 5.0-8.0 [facility] urine specific gravity by vthboepedpeho8306-48-52 22:33:00 Test Item Value Reference Range Interpretation Comments Urine Specific [place] (test code = 1.009 1.005-1.030 00529-8) [facility] urine protein hqkaffyhdhn7721-67-56 22:33:00 Test Item Value Reference Range Interpretation Comments Urine Protein (test code = Negative mg/dL Negative 23933410) [facility]ated urine glucose srtcncivo0246-23-91 22:33:00 Test Item Value Reference Range Interpretation Comments Urine Glucose (UA) (test code Negative mg/dL Negative = 84340-9) [facility]rine ketones detection by automated test zpxbw9258-46-29 22:33:00 Test Item Value Reference Range Interpretation Comments Urine Ketones (test code = Negative mg/dL Negative 13377-2) [facility] erythrocytes detection by automated sphytm8764-58-28 22:33:00 Test Item Value Reference Range Interpretation Comments Urine Occult Blood (test code = Negative Negative 32708-9) [facility] urine nitrite wsbminmrynm7350-12-04 22:33:00 Test Item Value Reference Range Interpretation Comments Urine Nitrite (test code = 03821-1) Negative Negative [facility] total bilirubin detection by automated test uzysg6113-22-19 22:33:00 Test Item Value Reference Range Interpretation Comments Urine Bilirubin (test code = Negative Negative 30064-4) [facility] urine urobilinogen vdgujeyezti6753-84-46 22:33:00 Test Item Value Reference Range Interpretation Comments Urine Urobilinogen (test code = Normal mg/dL Normal 57035880) [facility] detection by automated clsgef7182-83-06 22:33:00 Test Item Value Reference Range Interpretation Comments Urine Leukocyte Esterase (test 250 {Marianna}/uL Negative code = 88059-0) [facility] erythrocytes count in urine sediment (number/area) 2019-09-24 22:33:00 Test Item Value Reference Range Interpretation Comments Urine RBC (test code = 58418-1) 0-2 /[HPF] 0-2 [facility]Automated leukocytes count in urine sediment (number/area) 2019-09-24 22:33:00 Test Item Value Reference Range Interpretation Comments Urine WBC (test code = 50103-1) 10-20 /[HPF] 0-2 [facility] squamous epithelial cells count in urine sediment (number/area)2019-09-24 22:33:00 Test Item Value Reference Range Interpretation Comments Urine Squamous Rare /[LPF] See_Comment [Automated m essage] Epithelial Cells The system which (test code = 44505-7) genera danielle this result transmitted ref erence range: 0 - 1+. The reference range was not used to int erpret this result as normal/abnormal . [facility] HealthAutomated urine sediment crystal count (number/area)2019-09-24 22:33:00 Test Item Value Reference Range Interpretation Comments Urine Other Crystals (test +/- Rare /[LPF] None Seen code = 62837-5) [facility] urine bdqvvtl8575-38-34 22:33:00 Test Item Value Reference Range Interpretation Comments Urine Culture (test No growth in 18-24 code = 630-4) hours Automated urine color ivqcfktkpkoov5661-41-02 22:33:00 Test Item Value Reference Range Interpretation Comments Urine Color (test code = 30376-3) Yellow Clarity in Urine by Refractometry bslwisqri8967-64-21 22:33:00 Test Item Value Reference Range Interpretation Comments Urine Appearance (test code = 86335-7) Clear Urine pH measurement by test ygrlm6516-62-98 22:33:00 Test Item Value Reference Range Interpretation Comments Urine pH (test code = 5803-2) 7.5 [pH] Automated urine specific gravity by demjiibmruxko5223-55-44 22:33:00 Test Item Value Reference Range Interpretation Comments Urine Specific [place] (test code = 1.009 49040-9) Automated urine protein pshfobrhozh4238-58-74 22:33:00 Test Item Value Reference Range Interpretation Comments Urine Protein (test code = Negative mg/dL 77084006) Automated urine glucose nxbivaglj2781-68-63 22:33:00 Test Item Value Reference Range Interpretation Comments Urine Glucose (UA) (test code Negative mg/dL = 01757-5) Urine ketones detection by automated test usgyq8958-50-78 22:33:00 Test Item Value Reference Range Interpretation Comments Urine Ketones (test code = Negative mg/dL 95103-9) Urine erythrocytes detection by automated oqzpsw3420-25-08 22:33:00 Test Item Value Reference Range Interpretation Comments Urine Occult Blood (test code = Negative 07514-6) Automated urine nitrite jawwhkwjeov4040-29-88 22:33:00 Test Item Value Reference Range Interpretation Comments Urine Nitrite (test code = 67414-3) Negative Urine total bilirubin detection by automated test ogucw4559-00-64 22:33:00 Test Item Value Reference Range Interpretation Comments Urine Bilirubin (test code = Negative 10355-0) Automated urine urobilinogen szhlsafsyhb2939-80-48 22:33:00 Test Item Value Reference Range Interpretation Comments Urine Urobilinogen (test code = Normal mg/dL 21885830) Urine leukocytes detection by automated qatwhp8745-46-84 22:33:00 Test Item Value Reference Range Interpretation Comments Urine Leukocyte Esterase (test 250 {Marianna}/uL code = 92233-7) Automated erythrocytes count in urine sediment (number/area)2019-09-24 22:33:00 Test Item Value Reference Range Interpretation Comments Urine RBC (test code = 61194-3) 0-2 /[HPF] Automated leukocytes count in urine sediment (number/area)2019-09-24 22:33:00 Test Item Value Reference Range Interpretation Comments Urine WBC (test code = 04179-7) 10-20 /[HPF] Automated squamous epithelial cells count in urine sediment (number/area) 2019-09-24 22:33:00 Test Item Value Reference Range Interpretation Comments Urine Squamous Epithelial Cells Rare /[LPF] (test code = 03834-6) Automated urine sediment crystal count (number/area)2019-09-24 22:33:00 Test Item Value Reference Range Interpretation Comments Urine Other Crystals (test +/- Rare /[LPF] code = 53328-4) Automated bacteria count in urine sediment (number/area)2019-09-24 22:33:00 Test Item Value Reference Range Interpretation Comments Urine Bacteria (test code = None /[HPF] 54180-2) Automated mucus count in urine sediment (number/area)2019-09-24 22:33:00 Test Item Value Reference Range Interpretation Comments Urine Mucus (test code = 87211-6) +/- /[LPF] Automated urine yeast count (number/area)2019-09-24 22:33:00 Test Item Value Reference Range Interpretation Comments Urine Yeast (Budding) (test code Rare /[HPF] = 02863-4) Service comment 22:33:00 Test Item Value Reference Range Interpretation Comments Urine Culture Indicated Yes, Criteria Met (test code = 8264-4) BASIC METABOLIC [id number] 02:06:00 Test Item Value Reference Range Interpretation [...] CALCIUM (test code = MG/DL 8.7-9.7 CA) [id number] 02:06:00 Test Item Value Reference Range Interpretation Comments MAGNESIUM (test code = MAG) MG/DL 1.6-2.3 BASIC METABOLIC [id number] 02:06:00 Test Item Value Reference Range Interpretation [...] CALCIUM (test code = MG/DL 8.7-9.7 CA) [id number] 02:06:00 Test Item Value Reference Range Interpretation Comments MAGNESIUM (test code = MAG) MG/DL 1.6-2.3 BASIC METABOLIC [id number] 02:06:00 Test Item Value Reference Range Interpretation [...] code = 10.3 MG/DL 8.4-10.2 H CA) [id number] 02:06:00 Test Item Value Reference Range Interpretation Comments MAGNESIUM (test code = MAG) MG/DL 1.6-2.3 BASIC METABOLIC [id number] 02:06:00 Test Item Value Reference Range Interpretation [...] code = 10.3 MG/DL 8.4-10.2 H CA) [id number] 02:06:00 Test Item Value Reference Range Interpretation Comments MAGNESIUM (test code = MAG) 1.7 MG/DL 1.6-2.3 BASIC METABOLIC [id number] 02:03:00 Test Item Value Reference Range Interpretation [...] CALCIUM (test code = CA) MG/DL 8.7-9.7 [id number] 02:03:00 Test Item Value Reference Range Interpretation Comments MAGNESIUM (test code = MAG) MG/DL 1.6-2.3 CBC W/AUTO [id number] 01:51:00 Test Item Value Reference Range Interpretation [...] K/mm3 0.0-0.1 N NRBC#) - XR CHEST [id number] 11:06:00 Patient Name: DEBI GARRETT Unit No: [id number] EXAMS: CPT CODE: [id number] XR CHEST 1V 85684 Site ID: [id number] HISTORY: Pneumothorax COMPARISON: Chest x-ray August 08, 2019 FINDINGS: Less than 5% res idual left apical pneumothorax, platelike left mid lung atelectasis. Otherwise the lungs are clear. The heart and pulmonary vasculature is normal. Left subclavian line terminates appropriately. Osseousstructures are unremarkable. IMPRESSION: Less than 5% residual left apical pneumothorax, platelike left mid lung atelectasis at 1106 Reported and signed by: Laith Salcido MD CC: Poli Aaron; Abdulaziz Epps Technologist: Willie Santana (RT) Transcrpt Date/Tm/Trnsp: 08/10/2019 (1106) t.TARSHA.AJP6 Orig Print D/T: S: 08/10/2019 (1110) [facility] NAME: DEBI GARRETT ENDER [address] [place] [address] PHYS: [place] [address] : 1935 AGE: 84 SEX: F LOC: Z.SI05 A PHONE #: [phone] EXAM DATE: 08/10/2019 STATUS: ADM IN FAX #: [phone] RADIOLOGY NO: PAGE 1 Signed ReportBASIC METABOLIC [id number] 05:07:00 Test Item Value Reference Range Interpretation [...] code = 10.6 MG/DL 8.4-10.2 H CA) [id number] 05:07:00 Test Item Value Reference Range Interpretation Comments PHOSPHOROUS (test code = PHOS) 3.3 MG/DL 2.5-4.5 N [id number] 05:07:00 Test Item Value Reference Range Interpretation Comments MAGNESIUM (test code = MAG) 2.2 MG/DL 1.6-2.3 BASIC METABOLIC [id number] 05:04:00 Test Item Value Reference Range Interpretation [...] CALCIUM (test code = MG/DL 8.7-9.7 CA) [id number] 05:04:00 Test Item Value Reference Range Interpretation Comments PHOSPHOROUS (test code = PHOS) MG/DL 2.5-4.5 [id number] 05:04:00 Test Item Value Reference Range Interpretation Comments MAGNESIUM (test code = MAG) MG/DL 1.6-2.3 BASIC METABOLIC [id number] 05:01:00 Test Item Value Reference Range Interpretation [...] CALCIUM (test code = CA) MG/DL 8.7-9.7 [id number] 05:01:00 Test Item Value Reference Range Interpretation Comments PHOSPHOROUS (test code = PHOS) MG/DL 2.5-4.5 [id number] 05:01:00 Test Item Value Reference Range Interpretation Comments MAGNESIUM (test code = MAG) MG/DL 1.6-2.3 CBC W/AUTO [id number] 04:48:00 Test Item Value Reference Range Interpretation [...] 0.00 K/mm3 0.0-0.1 N NRBC#) BASIC METABOLIC [id number] 23:31:00 Test Item Value Reference Range Interpretation [...] code = 10.1 MG/DL 8.4-10.2 N CA) [id number] 23:31:00 Test Item Value Reference Range Interpretation Comments MAGNESIUM (test code = MAG) 1.8 MG/DL 1.6-2.3 N BASIC METABOLIC [id number] 23:28:00 Test Item Value Reference Range Interpretation [...] CALCIUM (test code = MG/DL 8.7-9.7 CA) [id number] 23:28:00 Test Item Value Reference Range Interpretation Comments MAGNESIUM (test code = MAG) MG/DL 1.6-2.3 BASIC METABOLIC [id number] 23:25:00 Test Item Value Reference Range Interpretation [...] CALCIUM (test code = CA) MG/DL 8.7-9.7 [id number] 23:25:00 Test Item Value Reference Range Interpretation Comments MAGNESIUM (test code = MAG) MG/DL 1.6-2.3 BASIC METABOLIC [id number] 22:21:00 Test Item Value Reference Range Interpretation Comments SODIUM (test code = 129 MMOL/L 137-145 L NA) POTASSIUM (test code = 2.9 MMOL/L 3.5-5.1 L CASTRO D TO TED B.& K) READBACK ON AT 2220 BY Cuba Garcia [...] code = 9.3 MG/DL 8.4-10.2 N CA) [id number] 22:21:00 Test Item Value Reference Range Interpretation Comments MAGNESIUM (test code = MAG) 1.6 MG/DL 1.6-2.3 N BASIC METABOLIC [id number] 21:36:00 Test Item Value Reference Range Interpretation [...] code = CA) 9.3 MG/DL 8.4-10.2 N [id number] 21:36:00 Test Item Value Reference Range Interpretation Comments MAGNESIUM (test code = MAG) 1.6 MG/DL 1.6-2.3 N BASIC METABOLIC [id number] 21:35:00 Test Item Value Reference Range Interpretation [...] CALCIUM (test code = CA) MG/DL 8.7-9.7 [id number] 21:35:00 Test Item Value Reference Range Interpretation Comments MAGNESIUM (test code = MAG) MG/DL 1.6-2.3 CBC W/AUTO [id number] 21:25:00 Test Item Value Reference Range Interpretation [...] 0.0-0.1 N NRBC#) - MRI BRAIN W/O [id number] 11:43:00 Patient Name: DEBI GARRETT Unit No: [id number] EXAMS: CPT CODE: [id number] MRI BRAIN W/O CONTRAST 48360 CLINICAL INFORMATION: Ataxia. Right internal carotid artery [...] major arteries at the base of the brainand in the dural venous sinuses. IMPRESSION: 1. Mild senescent change. 2. No intrinsic brain mass orrecent ischemia. at 1143 Reported and signed by: Farhad Preciado M.D. CC: Poli Aaron; Gonzalo Kent MD Technologist:Laura Wei (RT)(R) Transcrpt Date/Tm/Trnsp: 08/09/2019 (1143) t.SDR.AGV Orig Print D/T: S: 08/09/2019 (1146) [facility] NAME: DEBI GARRETT [address] [place] [address] PHYS: [place] [address] : 1935 AGE: 84 SEX: F LOC: Z.SI05 A PHONE #: [phone] EXAM DATE: 08/09/2019 STATUS: ADM IN FAX #: [phone] RADIOLOGY NO: PAGE 1 Signed ReportURINALYSIS [id number] 22:47:00 Test Item Value Reference Range Interpretation [...] UACULT) Criteria SOURCE OF URINE: STRAIGHT CATHETERURINALYSIS [id number] 22:45:00 Test Item Value Reference Range Interpretation [...] UACULT) SOURCE OF URINE: STRAIGHT CATHETERBASIC METABOLIC [id number] 13:12:00 Test Item Value Reference Range Interpretation [...] code = 9.8 MG/DL 8.4-10.2 N CA) [id number] 13:12:00 Test Item Value Reference Range Interpretation Comments PHOSPHOROUS (test code = PHOS) 2.6 MG/DL 2.5-4.5 N [id number] 13:12:00 Test Item Value Reference Range Interpretation Comments MAGNESIUM (test code = MAG) 2.3 MG/DL 1.6-2.3 N T3,T4 [id number] 13:12:00 Test Item Value Reference Range Interpretation Comments T3 UPTAKE (test code = T3UP) 33.3 % UP 23.5-40.5 N T4 (THYROXINE) (test code = T4) 13.10 UG/DL 5.53-11.0 H T7 (FREE THYROXINE INDEX) (test 4.4 1.2-4.3 H code = T7) THYROID STIMULATING [id number] 13:12:00 Test Item Value Reference Range Interpretation Comments THYROID STIMULATING 3.590 MIU/L 0.465-4.68 N Please b e aware that HORMONE (test code = bias re sults for TSH TSH) may occur forpa tient who are taking Biotin suppleme nts. T4 [id number] 12:43:00 Test Item Value Reference Range Interpretation Comments T4 FREE (test code = T4F) 2.1 NG/DL 0.78-2.19 N BASIC METABOLIC [id number] 12:41:00 Test Item Value Reference Range Interpretation [...] code = 9.8 MG/DL 8.4-10.2 N CA) [id number] 12:41:00 Test Item Value Reference Range Interpretation Comments PHOSPHOROUS (test code = PHOS) 2.6 MG/DL 2.5-4.5 N [id number] 12:41:00 Test Item Value Reference Range Interpretation Comments MAGNESIUM (test code = MAG) 2.3 MG/DL 1.6-2.3 N T3,T4 [id number] 12:41:00 Test Item Value Reference Range Interpretation Comments T3 UPTAKE (test code = T3UP) 33.3 % UP 23.5-40.5 N T4 (THYROXINE) (test code = T4) 13.10 UG/DL 5.53-11.0 H T7 (FREE THYROXINE INDEX) (test 4.4 1.2-4.3 H code = T7) THYROID STIMULATING [id number] 12:41:00 Test Item Value Reference Range Interpretation Comments THYROID STIMULATING HORMONE (test code MIU/L 0.465-4.68 = TSH) CBC W/AUTO [id number] 12:39:00 Test Item Value Reference Range Interpretation [...] 0.00 K/mm3 0.0-0.1 N NRBC#) BASIC METABOLIC [id number] 12:26:00 Test Item Value Reference Range Interpretation [...] code = 9.8 MG/DL 8.4-10.2 N CA) [id number] 12:26:00 Test Item Value Reference Range Interpretation Comments PHOSPHOROUS (test code = PHOS) 2.6 MG/DL 2.5-4.5 N [id number] 12:26:00 Test Item Value Reference Range Interpretation Comments MAGNESIUM (test code = MAG) 2.3 MG/DL 1.6-2.3 N T3,T4 [id number] 12:26:00 Test Item Value Reference Range Interpretation Comments T3 UPTAKE (test code = T3UP) % UP 23.5-40.5 T4 (THYROXINE) (test code = T4) UG/DL 5.53-11.0 T7 (FREE THYROXINE INDEX) (test code = 1.2-4.3 T7) THYROID STIMULATING [id number] 12:26:00 Test Item Value Reference Range Interpretation Comments THYROID STIMULATING HORMONE (test code MIU/L 0.465-4.68 = TSH) BASIC METABOLIC [id number] 12:25:00 Test Item Value Reference Range Interpretation [...] CALCIUM (test code = MG/DL 8.7-9.7 CA) [id number] 12:25:00 Test Item Value Reference Range Interpretation Comments PHOSPHOROUS (test code = PHOS) MG/DL 2.5-4.5 [id number] 12:25:00 Test Item Value Reference Range Interpretation Comments MAGNESIUM (test code = MAG) MG/DL 1.6-2.3 T3,T4 [id number] 12:25:00 Test Item Value Reference Range Interpretation Comments T3 UPTAKE (test code = T3UP) % UP 23.5-40.5 T4 (THYROXINE) (test code = T4) UG/DL 5.53-11.0 T7 (FREE THYROXINE INDEX) (test code = 1.2-4.3 T7) THYROID STIMULATING [id number] 12:25:00 Test Item Value Reference Range Interpretation Comments THYROID STIMULATING HORMONE (test code MIU/L 0.465-4.68 = TSH) BASIC METABOLIC [id number] 12:25:00 Test Item Value Reference Range Interpretation [...] CALCIUM (test code = MG/DL 8.7-9.7 CA) [id number] 12:25:00 Test Item Value Reference Range Interpretation Comments PHOSPHOROUS (test code = PHOS) MG/DL 2.5-4.5 [id number] 12:25:00 Test Item Value Reference Range Interpretation Comments MAGNESIUM (test code = MAG) MG/DL 1.6-2.3 T3,T4 [id number] 12:25:00 Test Item Value Reference Range Interpretation Comments T3 UPTAKE (test code = T3UP) % UP 23.5-40.5 T4 (THYROXINE) (test code = T4) UG/DL 5.53-11.0 T7 (FREE THYROXINE INDEX) (test code = 1.2-4.3 T7) THYROID STIMULATING [id number] 12:25:00 Test Item Value Reference Range Interpretation Comments THYROID STIMULATING HORMONE (test code MIU/L 0.465-4.68 = TSH) BASIC METABOLIC [id number] 12:25:00 Test Item Value Reference Range Interpretation [...] CALCIUM (test code = MG/DL 8.7-9.7 CA) [id number] 12:25:00 Test Item Value Reference Range Interpretation Comments PHOSPHOROUS (test code = PHOS) MG/DL 2.5-4.5 [id number] 12:25:00 Test Item Value Reference Range Interpretation Comments MAGNESIUM (test code = MAG) MG/DL 1.6-2.3 T3,T4 [id number] 12:25:00 Test Item Value Reference Range Interpretation Comments T3 UPTAKE (test code = T3UP) % UP 23.5-40.5 T4 (THYROXINE) (test code = T4) UG/DL 5.53-11.0 T7 (FREE THYROXINE INDEX) (test code = 1.2-4.3 T7) THYROID STIMULATING [id number] 12:25:00 Test Item Value Reference Range Interpretation Comments THYROID STIMULATING HORMONE (test code MIU/L 0.465-4.68 = TSH) BASIC METABOLIC [id number] 12:23:00 Test Item Value Reference Range Interpretation [...] CALCIUM (test code = CA) MG/DL 8.7-9.7 [id number] 12:23:00 Test Item Value Reference Range Interpretation Comments PHOSPHOROUS (test code = PHOS) MG/DL 2.5-4.5 [id number] 12:23:00 Test Item Value Reference Range Interpretation Comments MAGNESIUM (test code = MAG) MG/DL 1.6-2.3 T3,T4 [id number] 12:23:00 Test Item Value Reference Range Interpretation Comments T3 UPTAKE (test code = T3UP) % UP 23.5-40.5 T4 (THYROXINE) (test code = T4) UG/DL 5.53-11.0 T7 (FREE THYROXINE INDEX) (test code = 1.2-4.3 T7) THYROID STIMULATING [id number] 12:23:00 Test Item Value Reference Range Interpretation Comments THYROID STIMULATING HORMONE (test code MIU/L 0.465-4.68 = TSH) BASIC METABOLIC [id number] 12:22:00 Test Item Value Reference Range Interpretation [...] CALCIUM (test code = CA) MG/DL 8.7-9.7 [id number] 12:22:00 Test Item Value Reference Range Interpretation Comments PHOSPHOROUS (test code = PHOS) MG/DL 2.5-4.5 [id number] 12:22:00 Test Item Value Reference Range Interpretation Comments MAGNESIUM (test code = MAG) MG/DL 1.6-2.3 T3,T4 [id number] 12:22:00 Test Item Value Reference Range Interpretation Comments T3 UPTAKE (test code = T3UP) % UP 23.5-40.5 T4 (THYROXINE) (test code = T4) UG/DL 5.53-11.0 T7 (FREE THYROXINE INDEX) (test code = 1.2-4.3 T7) THYROID STIMULATING [id number] 12:22:00 Test Item Value Reference Range Interpretation Comments THYROID STIMULATING HORMONE (test code MIU/L 0.465-4.68 = TSH) - XR HIP W/PEL UNI 2+V [id number] 11:43:00 Patient Name: DEBI GARRETT Unit No: [id number] EXAMS: CPT CODE: [id number] XR HIP W/PEL UNI 2+[place] [address] EXAM: - XR HIP W/PEL UNI 2+V RT HISTORY: s/p fall, pain right hip Location: B2 COMPARISON: None available time of interpretation. FINDINGS: AP view of the pelvis and frog-leg lateral view of the right hip is provided. There is no evidence of acute fracture or malalignment. Mild degenerative joint space narrowing present throughout both hips. Sacroiliac joints and pubic symphysis appearunremarkable. Mild degenerative changes along the lower lumbar spine. IMPRESSION: No acute osseous abnormality. at 1143 Reported and signed by: Kathrin Guevara MD CC: Poli Aaron; Jana Acosta OUTBOUND SALES AGENT Technologist: Britney Myers RT (R) Transcrpt Date/Tm/Trnsp: 08/08/2019 (1143) [email or web address] Orig Print D/T: S: 08/08/2019 (6067) [facility] NAME: DEBI GARRETT [address] PHYS: [address]USTY[address] - [place] [address] : 1935 AGE: 84 SEX: F LOC: Z.SI05 A PHONE #: [phone] EXAM DATE: 08/08/2019 STATUS: ADM IN FAX #: [phone] RADIOLOGY NO: PAGE 1 Signed Report- CT HEAD/BRAIN W/O [id number] 11:40:00 Patient Name: DEBI GARRETT Unit No: [id number] EXAMS: CPT CODE: [id number] CT HEAD/BRAIN W/O CONT 51368 EXAMINATION: - CT HEAD/BRAIN W/O CONT. LOCATION: S17. HISTORY: AMS, Falls, right carotid stenosis. COMPARISON: None. TECHNIQUE: Routine CT of the head was performed without intravenous contrast as per protocol. One or more the following dose reduction techniques were used: Automated exposure control, adjustment of mA and/or kV according to patient size, and use of iterative reconstruction technique. FINDINGS: Brain Parenchyma: No hemorrhage or infarction. No mass effect or midline shift. There are low attenuation regions within the periventricular white matter, this is nonspecific, most commonly associated with microvascular ischemic changes. Atherosclerotic vascular calcifications.Extra Axial Spaces: Unremarkable. Ventricular System: Unremarkable. Osseous Structures: Unremarkable. Visualized Paranasal Sinuses: Unremarkable. IMPRESSION: No acute intracranial abnormality nor hemorrhage. at 1140 Reported and signed by: Ever Finney CC: Poli Aaron; Jana Acosta OUTBOUND SALES AGENT Technologist: Filipe Perez, RT(R) CTDI: DLP: Trnscrpt: 08/08/2019 (8180) [email or web address] [facility] NAME: DEBI GARRETT PHYS: [place] [address] : 1935 AGE: 84 SEX: F LOC: ZNelySI05 A PHONE #: [phone] EXAM DATE: 08/08/2019 STATUS: ADM IN FAX #: [phone] RAD #: D/C DT PAGE 1 Signed Report Patient Name: DEBI GARRETT Unit No: [id number] EXAMS: CPT CODE: [id number] CT HEAD/BRAIN W/O CONT 36465 (Continued) Orig Print D/T: S: 08/08/2019 (1143) [facility] NAME: DEBI GARRETT PHYS: DUSTY. - [place] [address] : 1935 AGE: 84 SEX: F LOC: Z.SI05 A PHONE #: [phone] EXAM DATE: 08/08/2019 STATUS: ADM IN FAX #: [phone] RAD #: D/C DT PAGE 2 Signed Report- XR CHEST 1V 2019-08-08 08:51:00 Patient Name: DEBI GARRETT Unit No: [id number] EXAMS: CPT CODE: [id number] XR CHEST 1V 62202 EXAM: - XR CHEST 1V Location code:B2 [...] large effusion or right-sided pneumothorax.No acute osseous p athology. IMPRESSION 1. No significant interval change in size of small left apical pneumothorax. 2. Mildly worsened left basilar atelectasis or developing infiltrate. at 0851 Reported and signed by: Kathrin Guevara MD CC: Poli Aaron; Jana Acosta NP Technologist: Octavio Lerner, RT(R) Transcrpt Date/Tm/Trnsp: 08/08/2019 (0851) [email or web address] Orig Print D/T: S: 08/08/2019 (0654) [facility] NAME: DEBI GARRETT [address] PHYS: [address] - [place] [address] : 1935 AGE: 84 SEX: F LOC: UmaSI05 A PHONE #: [phone] EXAM DATE: 08/08/2019 STATUS: ADM IN FAX #: [phone] RADIOLOGY NO: PAGE 1 Signed Report ARTERY,[id number] 12:46:00 RUN DATE: 08/07/19 [facility] [place] [facility] RUN TIME: 1246 Specimen Inquiry RUN USER: INTERFACE PATIENT: DEBI GARRETT LOC: MYLES U #: [id number] AGE/SX: 84/F ROOM: [facility] RE08/06/19[facility] DR: Robi Schroeder MD : 37 BED: A DIS: STATUS: ADM IN TLOC: SPEC #: [id number] RECD: 08/06/19 STATUS: DOV REQ #: [id number] KELLE: 08/06/[address]: Robi Schroeder MD ENTERED: 08/06/19 SP TYPE: ARTERY, PL OTHR DR: Self Referred Mirella Francis MD, Patricia Q MD Pepper, Gregory S MDORDERED: DECAL, SURG PATH LVL 3, SURG PATH LVL 4 CODES: [id number] - PLAQUE, NOS B49930 - ARTERY, NOS [id number] - CAROTID ARTERY ATHEROSCLEROSIS [id number] - CERVIX NEOPLASM, MALIG [id number] -CERVIX EXCISIONAL BIOP [id number] - LYMPH NODE, NOS COPIES TO: [place] [address] [place] [address] Poli Aaron MD [address] [place] [address] [place] [address] [facility] [address] [place] [address] [place] [address] [facility] [address] [place] [address] ICD CODES: 440 - PROCEDURES: DECAL (08/06/19) SURG PATH LVL 3 (08/06/19) SURG PATH LVL 4 (08/06/19) TISSUES: A. ARTERY, NOS - RT CAROTID PLAQUE B. LYMPH NODE, NOS - RT CERVICAL LYMPH NODE CONTINUED ON NEXT PAGE ------- -----RUN DATE: 08/07/19 [employer] PAGE 2 RUN TIME: 1246 Specimen Inquiry RUN USER: INTERFACE SPEC #: [id number] PATIENT: DEBI GARRETT #[id number] (Continued) CLINICAL HISTORY S/P RIGHT CEA CPT CODES CPT CODE(S): 71237 , 76679, 64266 , , , , FINAL DIAGNOSIS A. [...] cm. Cut sections reveal a partially calcified surface. Sections submitted for decalcification as A1. B. Right [...] histiocytosis and minimal paracortical reactive change. No atypicalfeatures. /chidi Signed SIGNATURE ON FILE Raffi Henderson 08/07/19 1246 END OF REPORT - XR CHEST [id number] 10:56:00 Patient Name: DEBI GARRETT Unit No: [id number] EXAMS: CPT CODE: [id number] XR CHEST 1V 26250 EXAMINATION: - XR CHEST 1V. LOCATION: B2. HISTORY: post op. COMPARISON: Radiograph dated 08/06/2019. TECHNIQUE: Single AP view of the chest was obtained. FINDINGS: Left subclavian line and right necksurgical drain are unchanged in position. The heart [...] discussed with Dr. Schroeder at 1056 hours on08/07/2019. at 1056 Reported and signed by: Wendy Davidson MD CC: Poli Aaron Technologist: Damian Ingram (RT) (R) Transcrpt Date/Tm/Trnsp: 08/07/2019 (1056) [email or web address] Orig Print D/T: S: 08/07/2019 (1100) [facility] NAME: DEBI GARRETT [address] PHYS: [place] [address] : 1935 AGE: 84 SEX: F LOC: Z.SI01 A PHONE #: [phone] EXAM DATE: 08/07/2019 STATUS: ADM IN FAX #: [phone] RADIOLOGY NO: PAGE 1 Signed ReportBASIC METABOLIC [id number] 06:56:00 Test Item Value Reference Range Interpretation [...] CA) CBN DRAW LEFT TUBES FOR NURSE [id number] 06:56:00 Test Item Value Reference Range Interpretation Comments MAGNESIUM (test code = MAG) 1.8 MG/DL 1.6-2.3 N CBN DRAW LEFT TUBES FOR NURSE ROSIEBASIC METABOLIC [id number] 06:55:00 Test Item Value Reference Range Interpretation [...] CA) CBN DRAW LEFT TUBES FOR NURSE [id number] 06:55:00 Test Item Value Reference Range Interpretation Comments MAGNESIUM (test code = MAG) MG/DL 1.6-2.3 CBN DRAW LEFT TUBES FOR NURSE FELABASIC METABOLIC [id number] 06:53:00 Test Item Value Reference Range Interpretation [...] 8.7-9.7 CBN DRAW LEFT TUBES FOR NURSE [id number] 06:53:00 Test Item Value Reference Range Interpretation Comments MAGNESIUM (test code = MAG) MG/DL 1.6-2.3 CBN DRAW LEFT TUBES FOR NURSE ZEKEIECBC W/AUTO [id number] 06:42:00 Test Item Value Reference Range Interpretation [...] N NRBC#) CBN DRAW LEFT TUBES FOR [facility] METABOLIC [id number] 13:33:00 Test Item Value Reference Range Interpretation [...] code = 10.0 MG/DL 8.4-10.2 N CA) [id number] 13:33:00 Test Item Value Reference Range Interpretation Comments MAGNESIUM (test code = MAG) 1.8 MG/DL 1.6-2.3 N BASIC METABOLIC [id number] 13:32:00 Test Item Value Reference Range Interpretation [...] CALCIUM (test code = MG/DL 8.7-9.7 CA) [id number] 13:32:00 Test Item Value Reference Range Interpretation Comments MAGNESIUM (test code = MAG) MG/DL 1.6-2.3 BASIC METABOLIC [id number] 13:30:00 Test Item Value Reference Range Interpretation [...] CALCIUM (test code = CA) MG/DL 8.7-9.7 [id number] 13:30:00 Test Item Value Reference Range Interpretation Comments MAGNESIUM (test code = MAG) MG/DL 1.6-2.3 BASIC METABOLIC [id number] 13:29:00 Test Item Value Reference Range Interpretation [...] CALCIUM (test code = CA) MG/DL 8.7-9.7 [id number] 13:29:00 Test Item Value Reference Range Interpretation Comments MAGNESIUM (test code = MAG) MG/DL 1.6-2.3 CBC W/AUTO [id number] 13:19:00 Test Item Value Reference Range Interpretation [...] K/mm3 0.0-0.1 N NRBC#) - XR CHEST [id number] 13:05:00 Patient Name: DEBI GARRETT Unit No: [id number] EXAMS: CPT CODE: [id number] XR CHEST 1V 02493 Site ID: [id number] HISTORY: Postoperative, right CEA COMPARISON: Chest x-ray July 29, 2019 FINDINGS: Subop timal inspiratory effort, with mild pulmonary vascular crowding/engorgement. Heart size is normal. Aright carotid region surgical drain and left subclavian line are in place. No pneumothorax. Osseous structures are unremarkable. IMPRESSION: Mild pulmonary vascular prominence which may reflect true vascular congestion or vascular crowding due to poor inspiratory effort at 1305 Reported and signed by: Laith Salcido MD CC: Poli Aaron Technologist: Octavio Lerner, RT(R) Transcrpt Date/Tm/Trnsp: 08/06/2019 (6735) [email or web address] Orig PrintD/T: S: 08/06/2019 (9574) [facility] NAME: DEBI GARRETT [address] PHYS: [place] [address] : 1935 AGE: 84 SEX: F LOC: Z.SI01 A PHONE #: [phone] EXAM DATE: 08/06/2019 STATUS: ADM IN FAX #: [phone] RADIOLOGY NO: PAGE 1 Signed ReportARTERIAL BLOOD [id number] 13:00:00 Test Item Value Reference Range Interpretation [...] = 50 % COHBGFFIO2) Novel Coronavirus 2019 [id number] 08:07:00 Test Item Value Reference Range Interpretation Comments Novel Coronavirus 2019 Inhouse (test Negative Negative code = COVNONPUI) Novel Coronavirus 2019 [id number] 08:06:00 Test Item Value Reference Range Interpretation Comments Novel Coronavirus 2019 Inhouse (test Negative Negative code = COVNONPUI) HIV 12 AB [id number] 14:28:00 Test Item Value Reference Range Interpretation Comments HIV 1 2 COMBO AG/AB SCREEN AB/AG NON REACTIVE NONREACTIVE (test code = [id number]) BASIC METABOLIC [id number] 13:39:00 Test Item Value Reference Range Interpretation [...] 10.3 MG/DL 8.4-10.2 H CA) BASIC METABOLIC [id number] 13:38:00 Test Item Value Reference Range Interpretation [...] code = MG/DL 8.7-9.7 CA) BASIC METABOLIC [id number] 13:36:00 Test Item Value Reference Range Interpretation [...] code = CA) MG/DL 8.7-9.7 BASIC METABOLIC [id number] 13:35:00 Test Item Value Reference Range Interpretation [...] (test code = CA) MG/DL 8.7-9.7 PROTHROMBIN [id number] 13:32:00 Test Item Value Reference Range Interpretation Comments PROTHROMBIN TIME 11.2 SECONDS 9.4-12.5 N PATIENT (test code = PTP) INTERNATIONAL NORMAL 1.0 The INR is to be RATIO (test code = used only for INR) monitoring oral anticoagulantth erap y. INDICATION I NR VALUE ---- ---- ---- -------1. Prophylaxis, de ep venous thrombos is, including high risk surgery. 2.0 - 3.0 2. Prophylaxis, deep venous thrombosis, hip surgery, treatm ent for deep venous thrombosis or pulmonary prevention of systemic emboli sm in patients wit h valvular heart disease, atrial fibrillation, tissue heart va lve, or acute myocar dial infarction. 2. 0 - 3.0 3. Aerophysicist al prosthesis hear t valves, recurre nt systemic emboli sm. 3.0 - 4.5 PTT [id number] 13:32:00 Test Item Value Reference Range Interpretation Comments PTT ACTIVATED (test code = APTT) 35.5 SECONDS 25.1-36.5 N CBC W/AUTO [id number] 13:23:00 Test Item Value Reference Range Interpretation [...] 0.0-0.1 N NRBC#) - XR CHEST 2 [id number] 13:16:00 Patient Name: DEBI GARRETT Unit No: [id number] EXAMS: CPT CODE: [id number] XR CHEST 2 V 67425 Site ID: [id number] HISTORY: Preoperative, right carotid endarterectomy FINDINGS: The lungs are clear and normally expanded. The heart and pulmonary vasculature is normal. Previous coronary artery stentingnoted. Osseous structures are unremarkable. IMPRESSION: No acute cardiopulmonary finding at 1316 Reported and signed by: Laith Salcido MD CC: Poli Aaron Technologist: Britney Myers, RT (R) Transcrpt Date/Tm/Trnsp: 07/29/2019 (1316) [id number] Orig Print D/T: S: 07/29/2019 (1319) [facility] NAME: DEBI GARRETT [address] PHYS: [place] [address] : 1935 AGE: 84 SEX: F LOC: ZNelyMSU PHONE #: [phone] EXAM DATE: 07/29/2019 STATUS: PRE IN FAX #: [phone] RADIOLOGY NO: PAGE 1 Signed ReportBASIC METABOLIC [id number] 06:23:00 Test Item Value Reference Range Interpretation [...] LIPOPROTEIN LDL (test 106 MG/DL 0-99 H OPTI MAL.........<100 code = LDL) mg/dLNEAR OPTIMAL/ABOVE OPTIMAL........ .100-12 9 mg/dL BORDERL INE HIGH.........13 0-159 mg/dL HIGH.........16 0-189 mg/dL VERY HIGH.........>/ = 190 mg/dL [id number] 06:23:00 Test Item Value Reference Range Interpretation Comments MAGNESIUM (test code = MAG) 2.2 MG/DL 1.6-2.3 N PROTHROMBIN [id number] 06:16:00 Test Item Value Reference Range Interpretation Comments PROTHROMBIN TIME 11.7 SECONDS 9.4-12.5 N PATIENT (test code = PTP) INTERNATIONAL NORMAL 1.1 The INR is to be RATIO (test code = used only for INR) monitoring oral anticoagulantth erap y. INDICATION I NR VALUE ---- ---- ---- -------1. Prophylaxis, de ep venous thrombos is, including high risk surgery. 2.0 - 3.0 2. Prophylaxis, deep venous thrombosis, hip surgery, treatm ent for deep venous thrombosis or pulmonary prevention of systemic emboli sm in patients wit h valvular heart disease, atrial fibrillation, tissue heart va lve, or acute myocar dial infarction. 2.0 - 3.0 3. Aerophysicist al prosthesis hear t valves, recurre nt systemic emboli sm. 3.0 - 4.5 PTT [id number] 06:16:00 Test Item Value Reference Range Interpretation Comments PTT ACTIVATED (test code = APTT) 33.9 SECONDS 25.1-36.5 N BASIC METABOLIC [id number] 06:11:00 Test Item Value Reference Range Interpretation [...] LDL (test MG/DL 0-99 code = LDL) [id number] 06:11:00 Test Item Value Reference Range Interpretation Comments MAGNESIUM (test code = MAG) MG/DL 1.6-2.3 BASIC METABOLIC [id number] 06:11:00 Test Item Value Reference Range Interpretation [...] LDL (test MG/DL 0-99 code = LDL) [id number] 06:11:00 Test Item Value Reference Range Interpretation Comments MAGNESIUM (test code = MAG) 2.2 MG/DL 1.6-2.3 N BASIC METABOLIC [id number] 06:08:00 Test Item Value Reference Range Interpretation [...] LDL (test code = LDL) MG/DL 0-99 [id number] 06:08:00 Test Item Value Reference Range Interpretation Comments MAGNESIUM (test code = MAG) MG/DL 1.6-2.3 CBC W/AUTO [id number] 06:00:00 Test Item Value Reference Range Interpretation [...]
--- NOTE | 2022-01-19 19:09 | ER ---
Nurse's Notes [facility] Name: Leyda Ramos Age: 86 yrs Sex: Female : 1935 Arrival Date: 01/19/2022 Time: 18:11 Bed 12 Private MD: Diagnosis: Other skin changes-skin tear Presentation: 01/19 18:25 Chief complaint: Patient states: Pt reports she scratched her right forearm on a ld1 rosebush at 1500 today and it will not quit bleeding. Pt is on Plavix and aspirin. Coronavirus screen: Vaccine status: Patient reports receiving the 2nd dose of the covid vaccine. Client denies travel out of the [place] in the last 14 days. Ebola Screen: Patient negative for fever greater than or equal to 101.5 degrees Fahrenheit, and additional compatible Ebola Virus Disease symptoms Patient denies exposure to infectious person. Patient denies travel to an Ebola-affected area in the 21 days before illness onset. No symptoms or risks identified at this time. Initial Sepsis Screen: Does the patient meet any 2 criteria? No. Patient's initial sepsis screen is negative. Does the patient have a suspected source of infection? No. Patient's initial sepsis screen is negative. Risk Assessment: Do you want to hurt yourself or someone else? Patient reports no desire to harm self or others. Onset of symptoms was January 19, 2022 at 15:00. 18:25 Method Of Arrival: Ambulatory ld1 18:25 Acuity: EVELIO 4 ld1 Triage Assessment: 18:27 General: Appears in no apparent distress. Behavior is calm, cooperative. Pain: Denies ld1 pain. Historical: - Allergies: 18:27 Augmentin; ld1 18:27 Bactrim; ld1 18:27 Hydrocodone-Acetaminophen; ld1 18:27 PENICILLINS; ld1 - Home Meds: 18:27 losartan Oral [Active]; Plavix Oral [Active]; levothyroxine 50 mcg tab 1 tab once daily ld1 [Active]; Lipitor Oral [Active]; Tricor Oral [Active]; aspirin 81 mg Oral chew [Active]; carvedilol 3.125 mg oral tab 1 tab 2 times per day [Active]; - PMHx: 18:27 Chronic pain; pelvic; GALLSTONES; High Cholesterol; Hypertension; Hypothyroidism; ld1 leaking heart valve; - Immunization history:: Adult Immunizations up to date, Client reports receiving the 2nd dose of the Covid vaccine. - Social history:: Smoking status: Patient denies any tobacco usage or history of. Screenin:07 Abuse screen: Denies threats or abuse. Denies injuries from another. Nutritional ph screening: No deficits noted. Tuberculosis screening: No symptoms or risk factors identified. Fall Risk None identified. Assessment: 19:06 General: Appears in no apparent distress. Behavior is calm, cooperative. Pain: Denies ph pain. Neuro: Level of Consciousness is awake, alert, obeys commands, Oriented to person, place, time, situation. Cardiovascular: Capillary refill < 3 seconds in bilateral fingers Patient's skin is warm and dry. Respiratory: Airway is patent Respiratory effort is even, unlabored. Derm: Skin is healthy with good turgor, Skin is normal. Injury Description: Abrasion sustained to dorsal aspect of right forearm. Vital Signs: 18:25 BP 173 / 71; Pulse 65; Resp 18; Temp 98; Pulse Ox 96% ; Weight 49.9 kg; Height 5 ft. 0 ld1 in. (152.40 cm); Pain 0/10; 18:25 Body Mass Index 21.48 (49.90 kg, 152.40 cm) ld1 ED Course: 18:11 Patient arrived in ED. mr 18:15 [facility] Colon [facility]C [facility] snw 18:15 Jim Fonseca MD is Attending Physician. snw 18:27 Triage completed. ld1 18:27 Arm band placed on left wrist. ld1 19:07 Patient has correct armband on for positive identification. Bed in low position. Call ph light in reach. Side rails up X 1. Door closed. Noise minimized. 19:08 No provider procedures requiring assistance completed. ph Administered Medications: 19:21 Drug: Tetanus-Diphtheria Toxoid Adult 0.5 ml {Instrument Operator: Nutritics. Exp: ld1 06/18/2023. Lot #: [id number]. } Route: IM; Site: right deltoid; 19:21 Follow up: Response: (VIS) Vaccine information sheet provided today. Questions and/or ld1 concerns addressed. VIS edition date: Oct 29, 2020.; No adverse reaction Outcome: 19:09 Discharge ordered by . snw 19:26 Patient left the ED. ld1 Signatures: Tania Colon, MEDIA SERVICES SPECIALIST-C MEDIA SERVICES SPECIALIST-Csnw Serena Leung mr Lena Srivastava RN RN Arabella Bansal RN RN ld1 Corrections: (The following items were deleted from the chart) 18:30 18:27 Home Meds: omega-3 acid ethyl esters 1 gram Oral cap 2 caps 2 times per day; ld1 ld1 18:30 18:27 Home Meds: Cozaar 100 mg Oral tab 1 tab once daily; ld1 ld1
--- NOTE | 2022-01-19 19:10 | EDPHYS ---
Physician Documentation [facility] Name: Leyda Ramos Age: 86 yrs Sex: Female : 1935 Arrival Date: 01/19/2022 Time: 18:11 Bed 12 Private MD: FLORA Physician Jim Fonseca HPI: 01/19 19:47 This 86 yrs old Female presents to ER via Ambulatory with complaints of Skin Tear(s). snw 19:47 The patient or guardian complains of an abrasion. The complaints affect the dorsal snw aspect of right forearm. Context: resulted from scrape from a navneet mora. Onset: The symptoms/episode began/occurred suddenly, just prior to arrival. Treatment prior to arrival includes: Cleaned with H2O2. Associated signs and symptoms: The patient has no apparent associated signs or symptoms. Severity of symptoms: At their worst the symptoms were moderate. The patient has experienced similar episodes in the past, several times. It is unknown whether or not the patient has recently seen a physician. Pt takes Plavix and ASA. She had a hard time getting her arm to stop bleeding. Historical: - Allergies: 18:27 Augmentin; ld1 18:27 Bactrim; ld1 18:27 Hydrocodone-Acetaminophen; ld1 18:27 PENICILLINS; ld1 - Home Meds: 18:27 losartan Oral [Active]; Plavix Oral [Active]; levothyroxine 50 mcg tab 1 tab once daily ld1 [Active]; Lipitor Oral [Active]; Tricor Oral [Active]; aspirin 81 mg Oral chew [Active]; carvedilol 3.125 mg oral tab 1 tab 2 times per day [Active]; - PMHx: 18:27 Chronic pain; pelvic; GALLSTONES; High Cholesterol; Hypertension; Hypothyroidism; ld1 leaking heart valve; - Immunization history:: Adult Immunizations up to date, Client reports receiving the 2nd dose of the Covid vaccine. - Social history:: Smoking status: Patient denies any tobacco usage or history of. ROS: 19:46 Constitutional: Negative for fever, chills, and weight loss, Eyes: Negative for injury, snw pain, redness, and discharge, ENT: Negative for injury, pain, and discharge, Neck: Negative for injury, pain, and swelling, Cardiovascular: Negative for chest pain, palpitations, and edema, Respiratory: Negative for shortness of breath, cough, wheezing, and pleuritic chest pain, Abdomen/GI: Negative for abdominal pain, nausea, vomiting, diarrhea, and constipation, Back: Negative for injury and pain, : Negative for injury, bleeding, discharge, and swelling, MS/Extremity: Negative for injury and deformity, Neuro: Negative for headache, weakness, numbness, tingling, and seizure, Psych: Negative for depression, anxiety, suicide ideation, homicidal ideation, and hallucinations. 19:46 Skin: Positive for laceration(s), of the dorsal aspect of right forearm. Exam: 19:46 Constitutional: This is a well developed, well nourished patient who is awake, alert, snw and in no acute distress. Head/Face: Normocephalic, atraumatic. Eyes: Pupils equal round and reactive to light, extra-ocular motions intact. Lids and lashes normal. Conjunctiva and sclera are non-icteric and not injected. Cornea within normal limits. Periorbital areas with no swelling, redness, or edema. ENT: Nares patent. No nasal discharge, no septal abnormalities noted. Tympanic membranes are normal and external auditory canals are clear. Oropharynx with no redness, swelling, or masses, exudates, or evidence of obstruction, uvula midline. Mucous membranes moist. Neck: Trachea midline, no thyromegaly or masses palpated, and no cervical lymphadenopathy. Supple, full range of motion without nuchal rigidity, or vertebral point tenderness. No Meningismus. Chest/axilla: Normal chest wall appearance and motion. Nontender with no deformity. No lesions are appreciated. Cardiovascular: Regular rate and rhythm with a normal S1 and S2. No gallops, murmurs, or rubs. Normal PMI, no JVD. No pulse deficits. Respiratory: Lungs have equal breath sounds bilaterally, clear to auscultation and percussion. No rales, rhonchi or wheezes noted. No increased work of breathing, no retractions or nasal flaring. MS/ Extremity: Pulses equal, no cyanosis. Neurovascular intact. Full, normal range of motion. Neuro: Awake and alert, GCS 15, oriented to person, place, time, and situation. Cranial nerves II-XII grossly intact. Motor strength 5/5 in all extremities. Sensory grossly intact. Cerebellar exam normal. Normal gait. 19:46 Skin: Appearance: normal except for affected area, injury, abrasion(s), small abrasion noted, of the dorsal aspect of right forearm, skin tear. Vital Signs: 18:25 BP 173 / 71; Pulse 65; Resp 18; Temp 98; Pulse Ox 96% ; Weight 49.9 kg; Height 5 ft. 0 ld1 in. (152.40 cm); Pain 0/10; 18:25 Body Mass Index 21.48 (49.90 kg, 152.40 cm) ld1 MDM: 18:33 Patient medically screened. [facility] 19:12 Data reviewed: vital signs, nurses notes. Data interpreted: Pulse oximetry: on room air snw is 96 %. Interpretation: acceptable. Counseling: I had a detailed discussion with the patient and/or guardian regarding: the historical points, exam findings, and any diagnostic results supporting the discharge/admit diagnosis, the presence of at least one elevated blood pressure reading (>120/80) during this emergency department visit, the need for outpatient follow up, to return to the emergency department if symptoms worsen or persist or if there are any questions or concerns that arise at home. Special discussion: I have referred the patient to see his PCP for further evaluation of high blood pressure. Based on the history and exam findings, there is no indication for further emergent testing or inpatient evaluation. I discussed with the patient/guardian the need to see the primary care provider for further evaluation of the symptoms. 19:49 ED course: Pt's arm cleansed with betadine, tegaderm placed. mildly compressive bandage snw placed. Pt tolerated well. 01/19 19:12 Order name: Wound Care; Complete Time: 19:21 snw Administered Medications: 19:21 Drug: Tetanus-Diphtheria Toxoid Adult 0.5 ml {Route Specialist: [email or web address]. Exp: ld1 06/18/2023. Lot #: [id number]. } Route: IM; Site: right deltoid; 19:21 Follow up: Response: (VIS) Vaccine information sheet provided today. Questions and/or ld1 concerns addressed. VIS edition date: Oct 29, 2020.; No adverse reaction Disposition Summary: 01/19/22 19:09 Discharge Ordered Location: Home snw Condition: Stable snw Diagnosis - Other skin changes - skin tear snw Followup: snw - With: Emergency Department - When: As needed - Reason: Worsening of condition Followup: snw - With: Private Physician - When: 1 week - Reason: Recheck today's complaints, Continuance of care, Re-evaluation by your physician Discharge Instructions: - Discharge Summary Sheet snw - Skin Tear snw Forms: - Medication Reconciliation Form snw - Thank You Letter snw - Antibiotic Education snw - Prescription Opioid Use snw Signatures: Jim Fonseca MD MD cha Waters, Shelly, [employer]-C [employer]-Csnw Arabella Bansal, RN RN ld1 Corrections: (The following items were deleted from the chart) 18:30 18:27 Home Meds: omega-3 acid ethyl esters 1 gram Oral cap 2 caps 2 times per day; ld1 ld1 18:30 18:27 Home Meds: Cozaar 100 mg Oral tab 1 tab once daily; ld1 ld1
[2022-01-19] MEDS ORDERED: TETANUS & DIPHTHERIA TOX,ADULT 0.5 ML VIAL ONE (19:20)
[2022-01-19 20:10] VITALS: BP 173/71; TEMP 98; O2SAT 96
== END 2022-01-19 19:26 | disposition home or self-care (01) ==
LOC: ER 18:08
DX: S51.811A Laceration without foreign body of right forearm, initial encounter (principal); Z23 Encounter for immunization
CPT/HCPCS: 90471; 90714; 99282

== ENCOUNTER 2022-05-01 18:27 | Emergency (ER) | payer OTHER ==
--- OUTSIDE RECORDS SUMMARY | 2022-05-01 18:36 | XMS REPORT | Continuity of Care Document ---
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 Pneumococcal 2001-03-06 Completed [facility] Polysaccharide 00:00:00 [facility] Pneumococcal 2001-03-06 Completed [facility] Polysaccharide 00:00:00 Hospital Vital Signs Vital Name Observation Time Observation Value Comments Source Systolic blood 2022-03-01 15:41:00 177 mm[Hg] Method [facility] Hospital pressure Diastolic blood 2022-03-01 15:41:00 75 mm[Hg] [facility] pressure Heart rate 2022-03-01 15:41:00 53 /min [facility] Body temperature 2022-03-01 15:41:00 36.72 Constance Meth odist [facility] Body height 2022-03-01 15:41:00 152.4 cm [facility] Body weight 2022-03-01 15:41:00 52.708 kg [facility] BMI 2022-03-01 15:41:00 22.69 kg/m2 [facility] Oxygen saturation in 2022-03-01 15:41:00 96 /min [facility] Arterial blood by Pulse oximetry Respiratory rate 2022-01-30 19:19:00 20 /min [facility] Systolic blood 2021-12-21 15:38:00 174 mm[Hg] Method [facility] pressure Diastolic blood 2021-12-21 15:38:00 66 mm[Hg] [facility] pressure Heart rate 2021-12-21 14:42:00 60 /min [facility] Body temperature 2021-12-21 14:42:00 36.33 Constance [facility] Respiratory rate 2021-12-21 14:42:00 16 /min [facility] Body height 2021-12-21 14:42:00 152.4 cm [facility] Body weight 2021-12-21 14:42:00 52.164 kg [facility] BMI 2021-12-21 14:42:00 22.46 kg/m2 [facility] Oxygen saturation in 2021-12-21 14:42:00 98 /min [facility] Arterial blood by Pulse oximetry Body Temperature 2019-09-25 11:40:00 97.2 [degF] [employer] Heart Rate 2019-09-25 11:40:00 63 /min [facility] Respiratory rate 2019-09-25 11:40:00 18 /min [employer] BP Systolic 2019-09-25 11:40:00 94 mm[Hg] [facility] BP Diastolic 2019-09-25 11:40:00 43 mm[Hg] [facility] Weight 2019-09-25 06:07:00 122 [lb_av] [facility] BMI (Body Mass 2019-09-25 06:07:00 24.6 kg/m2 [facility] Health Index) Heart Rate 2019-09-25 03:06:00 87 /min [facility] Respiratory rate 2019-09-25 03:06:00 21 /min [employer] BP Systolic 2019-09-25 03:06:00 160 mm[Hg] [facility] BP Diastolic 2019-09-25 03:06:00 93 mm[Hg] [facility] Procedures Procedure Date / Time Performing Clinician Source Performed OPERATION, KNEE, 2022-01-30 17:05:00 Adrianna Miranda [facility]ital ARTHROSCOPIC POC GLUCOSE 2022-01-30 16:15:00 Adrianna Miranda Ho spital UT AN ELECTIVE SUPRAGLOTTIC 2022-01-30 15:04:00 Collin Farooq [facility] AIRWAY OPERATION, KNEE, 2022-01-30 14:59:00 Adrianna Miranda [facility] ARTHROSCOPIC POC PANEL 2022-01-30 14:11:00 Adrianna Miranda Ho spital MAMMO BREAST SCREEN 2021-12-28 14:46:00 [facility] TOMOSYNTHESIS BILATERAL [place] CBC WITH PLATELET AND 2021-12-22 12:45:00 [facility] DIFFERENTIAL [place] THYROID STIMULATING HORMONE 2021-12-22 12:45:00 [facility] COMPREHENSIVE METABOLIC 2021-12-22 12:45:00 [facility] PANEL [place] URINALYSIS, AUTOMATED WITH 2021-12-22 12:45:00 [facility] MICROSCOPY [place] LIPID PANEL 2021-12-22 12:45:00 [facility] HEMOGLOBIN A1C 2021-12-22 12:45:00 [facility] VITAMIN D 25 HYDROXY LEVEL 2021-12-22 12:45:00 [facility] UT ARTHROCENTESIS 2021-12-21 13:50:00 Adrianna Miranda [facility] ASPIR&/INJ MAJOR JT/BURSA W/O US MRI KNEE WO CONTRAST LEFT 2021-12-14 14:15:00 Adrianna Miranda [facility] XR KNEE 1 OR 2 VW BILATERAL 2021-09-28 19:41:49 Adrianna Miranda [facility] UT ARTHROCENTESIS 2021-09-28 19:30:00 Adrianna Miranda [facility] ASPIR&/INJ MAJOR JT/BURSA W/O US THYROID STIMULATING HORMONE 2021-03-31 15:55:00 [facility] HSV 1 AND 2 SPECIFIC AB IGG 2021-03-31 15:55:00 [facility] [place] Transthoracic two 2019-09-25 00:00:00 [facility] ealt dimensional echocardiography with color Doppler imaging and contrast Myocrd Strain Img Speckl 2019-09-25 00:00:00 [facility], single view 2019-09-24 00:00:00 [facility] ECG (electrocardiogram) 2019-09-24 00:00[facility]00 [facility] 12 lead ECG interpretation 2019-09-24 00:00:00 [facility] [id number] 2019-08-06 00:00:00 [facility] [id number] 2019-08-06 00:00:00 [facility] [id number] 2019-08-06 00:00:00 [facility] [id number] 2019-08-06 00:00:00 [facility] [id number] 2019-08-06 00:00:00 [facility] Plan of Care Planned Activity Planned Date Details Comments Source Future Scheduled Test 2022-04-27 SHINGLES VACCINES (1 [facility] 10:59:44 of 2) [code = SHINGLES VACCINES (1 of 2)] Future Scheduled Test 2022-01-19 HEPATITIS B VACCINES [facility] 18:11:59 (1 of 3 - 3-dose series) [code = HEPATITIS B VACCINES (1 of 3 - 3-dose series)] Future Scheduled Test 2022-01-19 SHINGLES VACCINES (1 [facility] 18:11:59 of 2) [code = SHINGLES VACCINES (1 of 2)] Future Scheduled Test 2022-01-19 COVID-19 VACCINE (4 - [facility] 18:11:59 Booster for Moderna series) [code = COVID-19 VACCINE (4 - Booster for Moderna series)] Future Scheduled Test Serum or plasma [facility] trop[facility] ospital measurement (mass/volume) [code = 49351-1] Instructions Atrial Fibrillation [facility] Instructions Apixaban [facility] Encounters Start End Encounter Admission Attending Care Care Encounter Source Date/Time Date/Time Type Type Clinicians Facility Department ID 2019-08-06 Inpatient DEB [facility] EVIN [id number] [facility] 08:00:[address] 2022-04-27 2022-04-27 Patient Reyes, 1.2.840.1 [id number] Methodi 00:00:00 00:00:00 Outreach Emily 58354.1.1 906 s t 3.430.2.7 Hospit a .3.605889 l .8 2022-04-06 2022-04-06 Patient Reyes, 1.2.840.1 [id number] Methodi 00:00:00 00:00:00 Outreach Emily 20963.1.1 988 s t 3.430.2.7 Hospit a .3.955275 l .8 2022-03-16 2022-03-16 Orders Aries, Elidia 1.2.840.1 [id number] [id number] Methodi 00:00:00 00:00:[address] 3.430.2.7 Hospit a .3.903674 l .8 2022-03-16 2022-03-16 Telephone Galen, 1.2.840.1 [id number] [id number] Methodi 00:00:00 00:00:[address] [place] 3.430.2.7 Hospi ta .3.526895 l .8 2022-03-16 2022-03-16 Patient Reyes, 1.2.840.1 [id number] Methodi 00:00:00 00:00:00 Outreach Emily 57491.1.1 189 s t 3.430.2.7 Hospit a .3.508321 l .8 2022-03-06 2022-03-06 Telephone Galen, 1.2.840.1 [id number] Methodi 00:00:00 00:00:[address] [place] 3.430.2.7 Hospi ta .3.226494 l .8 2022 2022 Patient Reyes, 1.2.840.1 [id number] Methodi 00:00:00 00:00:00 Outreach Emily 76703.1.1 904 s t 3.430.2.7 Hospit a .3.607351 l .8 2022-03-01 2022-03-01 Office Adrianna Miranda 1.2.840.1 [id number] Methodi 10:00:00 14:41:30 [address] 94003.1.[address] 3.430.2.7 Hospit a .3.838828 l .8 2022-03-01 2022-03-01 Office Galen 1.2.840.1 [id number] Methodi 10:00:00 10:05:57 Visit Poli 67021.1.[address] [place] 3.430.2.7 Hospi ta .3.821411 l .8 2022-03-01 2022-03-01 Travel 1.2.840.1 1.2.210.222 8687 [id number] Methodi 00:00:00 00:00:[address] 3.430.2.7 0.2.7.3.698 Ho spita .3.691336 084.8 l .8 2022-03-01 2022-03-01 Outpatient ADRIANNA MIRANDA [facility] [id number] [place] 00:00:00 00:00:[address] 2022-03-01 2022-03-01 Outpatient GALEN [facility] [id number] [place] 00:00:00 00:00:00 POLI [address] 2022-02-27 2022-02-27 Telephone Galen 1.2.840.1 [id number] Methodi 00:00:00 00:00:[address] [place] 3.430.2.7 Hospi ta .3.075189 l .8 2022-02-15 2022-02-15 Patient Eric, 1.2.840.1 [id number] Methodi 00:00:00 00:00:00 Outreach Emily 70691.1.1 809 s t 3.430.2.7 Hospit a .3.018825 l .8 2022-02-13 2022-02-13 Telephone Theodore, 1.2.840.1 [id number] 21 [id number] Methodi 00:00:00 00:00:[address] 3.430.2.7 Hospit a .3.423573 l .8 2022-02-03 2022-02-03 Office Adrianna Miranda 1.2.840.1 [id number] Methodi 09:20:00 09:20:[address]471.1.[address] 3.430.2.7 Hospit a .3.850075 l .8 2022-02-03 2022-02-03 Outpatient ADRIANNA MIRANDA [facility] [id number] [place] 00:00:00 00:00:[address] 2022-02-01 2022-02-01 Patient Reyes, 1.2.840.1 [id number] Methodi 00:00:00 00:00:00 Outreach Emily 67080.1.1 609 s t 3.430.2.7 Hospit a .3.982112 l .8 2022-01-31 2022-01-31 Refill Galen, 1.2.840.1 [id number] Methodi 00:00:00 00:00:[address] [place] 3.430.2.7 Hospi ta .3.989774 l .8 2022-01-30 2022-01-30 Hospital Adrianna Miranda 1.2.840.1 [id number] Methodi 07:38:00 13:41:00 Encounter BNely 74672.1.[address] 3.430.2.7 Hospit a .3.876029 l .8 2022-01-30 2022-01-30 Surgery Adrianna Miranda 1.2.840.1 [id number] Methodi 09:00:00 10:40:[address] 3.430.2.7 Hospit a .3.564797 l .8 2022-01-30 2022-01-30 Anesthesia Brannicholas, 1.2.840.1 [id number] 866 [id number] Methodi 08:59:00 10:18:00 Event Abdullahi 11220.1.[address] Robi 3.430.2.7 Hospit a .3.115008 l .8 2022-01-30 2022-01-30 Travel 1.2.840.1 1.2.903.179 8576 [id number] Methodi 00:00:00 00:00:[address] 3.430.2.7 0.2.7.3.698 Ho spita .3.614599 084.8 l .8 2022-01-30 2022-01-30 Outpatient ADRIANNA MIRANDA [facility] 021 2100 [id number] [place] 00:00:00 00:00:[address] 2022-01-27 2022-01-27 Patient Eric, 1.2.840.1 [id number] Methodi 00:00:00 00:00:00 Outreach Emily 08778.1.1 659 s t 3.430.2.7 Hospit a .3.297010 l .8 2022-01-25 2022-01-25 Patient Arnold, 1.2.840.1 [id number] Methodi 00:00:00 00:00:00 Outreach Kathrin 67457.1.[address] 3.430.2.7 Hospit a .3.887646 l .8 2022-01-16 2022-01-16 Travel 1.2.840.1 1.2.914.892 4793 098301 Methodi 00:00:00 00:00:[address] 3.430.2.7 0.2.7.3.698 Ho spita .3.876058 084.8 l .8 2022-01-16 2022-01-16 Travel 1.2.840.1 1.2.470.139 0107 [id number] Methodi 00:00:00 00:00:[address] 3.430.2.7 0.2.7.3.698 Ho spita .3.876254 084.8 l .8 2022-01-13 2022-01-13 Refill Forgan, 1.2.840.1 [id number] 59 Methodi 00:00:00 00:00:[address] [place] 3.430.2.7 Hospi ta .3.957328 l .8 2022-01-13 2022-01-13 Refill Forgan, 1.2.840.1 [id number] 59 Methodi 00:00:00 00:00:[address] [place] 3.430.2.7 Hospi ta .3.776275 l .8 2022-01-10 2022-01-10 Telephone Theodore, 1.2.840.1 [id number] Methodi 00:00:00 00:00:[address] 3.430.2.7 Hospit a .3.006758 l .8 2022-01-10 2022-01-10 Orders Theodore, 1.2.840.1 [id number] 2099 [id number] Methodi 00:00:00 00:00:00 Only Maryanne 15011.1.[address] 3.430.2.7 Hospit a .3.460303 l .8 2022-01-10 2022-01-10 Prep for Theodore, 1.2.840.1 [id number] 471 [id number] Methodi 00:00:00 00:00:00 Surgery Maryanne 36122.1.[address] 3.430.2.7 Hospit a .3.518686 l .8 2022-01-10 2022-01-10 Telephone Theodore, 1.2.840.1 [id number] Methodi 00:00:00 00:00:[address] 3.430.2.7 Hospit a .3.948280 l .8 2022-01-10 2022-01-10 Orders Theodore, 1.2.840.1 [id number] 2099 [id number] Methodi 00:00:00 00:00:00 Only Maryanne 47266.1.[address] 3.430.2.7 Hospit a .3.710808 l .8 2022-01-10 2022-01-10 Prep for Theodore, 1.2.840.1 [id number] Methodi 00:00:00 00:00:00 Surgery Maryanne 88882.1.[address] 3.430.2.7 Hospit a .3.447176 l .8 2022-01-09 2022-01-09 Telephone Theodore, 1.2.840.1 [id number] 21 [id number] Methodi 00:00:00 00:00:[address] 3.430.2.7 Hospit a .3.143964 l .8 2022-01-09 2022-01-09 Telephone Theodore, 1.2.840.1 [id number] 21 [id number] Methodi 00:00:00 00:00:[address] 3.430.2.7 Hospit a .3.389231 l .8 2021-12-28 2021-12-28 Travel 1.2.840.1 1.2.120.008 7714 746542 Methodi 00:00:00 00:00:[address] 3.430.2.7 0.2.7.3.698 Ho spita .3.582714 084.8 l .8 2021-12-28 2021-12-28 Outpatient GALEN [facility] [id number] [place] 00:00:00 00:00:00 POLI [address] 2021-12-28 2021-12-28 Travel 1.2.840.1 1.2.108.639 0170 [id number] Methodi 00:00:00 00:00:[address] 3.430.2.7 0.2.7.3.698 Ho spita .3.782521 084.8 l .8 2021-12-23 2021-12-23 Refill Galen, 1.2.840.1 [id number] Methodi 00:00:00 00:00:[address] [place] 3.430.2.7 Hospi ta .3.053586 l .8 2021-12-23 2021-12-23 Orders Forgan, 1.2.840.1 [id number] 21001 [id number] Methodi 00:00:00 00:00:00 Only Poli 85472.1.[address] [place] 3.430.2.7 Hospi ta .3.581976 l .8 2021-12-23 2021-12-23 Refill Galen, 1.2.840.1 [id number] Methodi 00:00:00 00:00:[address] [place] 3.430.2.7 Hospi ta .3.351114 l .8 2021-12-23 2021-12-23 Orders Galen, 1.2.840.1 [id number] 21001 [id number] Methodi 00:00:00 00:00:00 Only Poli 74087.1.[address] [place] 3.430.2.7 Hospi ta .3.204729 l .8 2021-12-21 2021-12-21 Office Adrianna Miranda 1.2.840.1 [id number] Methodi 08:50:00 11:59:46 [address] B. 72411.1.[address] 3.430.2.7 Hospit a .3.200514 l .8 2021-12-21 2021-12-21 Adrianna Chavez 1.2.840.1 [id number] Methodi 08:50:00 11:59:46 [address] B. 93048.1.[address] 3.430.2.7 Hospit a .3.478438 l .8 2021-12-21 2021-12-21 Office Forgan, 1.2.840.1 [id number] 448 Methodi 10:00:00 10:41:23 Visit Poli 50308.1.[address] [place] 3.430.2.7 Hospi ta .3.805356 l .8 2021-12-21 2021-12-21 Office Galen, 1.2.840.1 [id number] 448 Methodi 10:00:00 10:41:23 Visit Poli 03663.1.[address] [place] 3.430.2.7 Hospi ta .3.521952 l .8 2021-12-21 2021-12-21 Travel 1.2.840.1 1.2.309.742 6779 204986 Methodi 00:00:00 00:00:[address] 3.430.2.7 0.2.7.3.698 Ho spita .3.491365 084.8 l .8 2021-12-21 2021-12-21 Travel 1.2.840.1 1.2.274.964 0546 216243 Methodi 00:00:00 00:00:[address] 3.430.2.7 0.2.7.3.698 Ho spita .3.225584 084.8 l .8 2021-12-17 2021-12-17 Refill Forgan, 1.2.840.1 [id number] 77499 Methodi 00:00:00 00:00:[address] [place] 3.430.2.7 Hospi ta .3.609028 l .8 2021-12-17 2021-12-17 Refill Galen, 1.2.840.1 [id number] Methodi 00:00:00 00:00:[address] [place] 3.430.2.7 Hospi ta .3.282837 l .8 2021-12-16 2021-12-16 Telephone Theodore, 1.2.840.1 [id number] Methodi 00:00:00 00:00:[address] 3.430.2.7 Hospit a .3.966561 l .8 2021-12-16 2021-12-16 Telephone Theodore, 1.2.840.1 [id number] Methodi 00:00:00 00:00:[address] 3.430.2.7 Hospit a .3.476043 l .8 2021-12-14 2021-12-14 Outpatient ADRIANNA MIRANDA [facility] [id number] [place] 00:00:00 00:00:[address] 2021-12-07 2021-12-07 Office Adrianna Miranda 1.2.840.1 [id number] Methodi 10:20:00 11:37:02 [address] B[address] 02556.1.[address] 3.430.2.7 Hospit a .3.021935 l .8 2021-12-07 2021-12-07 Office Adrianna Miranda 1.2.840.1 [id number] 958 [id number] Methodi 10:20:00 11:37:[address]6312.1.[address] 3.430.2.7 Hospit a .3.897217 l .8 2021-12-07 2021-12-07 Travel 1.2.840.1 1.2.828.681 3271 [id number] Methodi 00:00:00 00:00:[address] 3.430.2.7 0.2.7.3.698 Ho spita .3.323682 084.8 l .8 2021-12-07 2021-12-07 Travel 1.2.840.1 1.2.909.048 4944 [id number] Methodi 00:00:00 00:00:[address] 3.430.2.7 0.2.7.3.698 Ho spita .3.979966 084.8 l .8 2021-11-29 2021-11-29 Travel 1.2.840.1 1.2.891.717 9693 259422 Methodi 00:00:00 00:00:[address] 3.430.2.7 0.2.7.3.698 Ho spita .3.788439 084.8 l .8 2021-11-29 2021-11-29 Travel 1.2.840.1 1.2.728.280 3596 046314 Methodi 00:00:00 00:00:[address] 3.430.2.7 0.2.7.3.698 Ho spita .3.806497 084.8 l .8 2021-11-16 2021-11-16 Refill Galen, 1.2.840.1 [id number] Methodi 00:00:00 00:00:[address] [place] 3.430.2.7 Hospi ta .3.166426 l .8 2021-11-16 2021-11-16 Refill Forgan, 1.2.840.1 [id number] Methodi 00:00:00 00:00:[address] [place] 3.430.2.7 Hospi ta .3.514586 l .8 2021-10-26 2021-10-26 Telephone Forgan, 1.2.840.1 [id number] 438 [id number] Methodi 00:00:00 00:00:[address] [place] 3.430.2.7 Hospi ta .3.002001 l .8 2021-10-26 2021-10-26 Telephone Galen, 1.2.840.1 [id number] 393 [id number] Methodi 00:00:00 00:00:[address] [place] 3.430.2.7 Hospi ta .3.527017 l .8 2021-10-24 2021-10-24 Telephone Galen, 1.2.840.1 [id number] 077 [id number] Methodi 00:00:00 00:00:[address] [place] 3.430.2.7 Hospi ta .3.914791 l .8 2021-10-24 2021-10-24 Telephone Galen, 1.2.840.1 [id number] 893 [id number] Methodi 00:00:00 00:00:[address] [place] 3.430.2.7 Hospi ta .3.814654 l .8 2021-10-21 2021-10-21 Telephone Galen, 1.2.840.1 [id number] 601 [id number] Methodi 00:00:00 00:00:[address] [place] 3.430.2.7 Hospi ta .3.671794 l .8 2021-10-21 2021-10-21 Telephone Galen, 1.2.840.1 [id number] 207 [id number] Methodi 00:00:00 00:00:[address] [place] 3.430.2.7 Hospi ta .3.525574 l .8 2021-10-20 2021-10-20 Telephone Galen, 1.2.840.1 [id number] 343 [id number] Methodi 00:00:00 00:00:[address] [place] 3.430.2.7 Hospi ta .3.536069 l .8 2021-10-20 2021-10-20 Telephone Galen, 1.2.840.1 [id number] 598 [id number] Methodi 00:00:00 00:00:[address] [place] 3.430.2.7 Hospi ta .3.108321 l .8 2021-10-11 2021-10-11 Telephone Galen, 1.2.840.1 [id number] 781 [id number] Methodi 00:00:00 00:00:[address] [place] 3.430.2.7 Hospi ta .3.296892 l .8 2021-10-11 2021-10-11 Telephone Galen, 1.2.840.1 [id number] 452 [id number] Methodi 00:00:00 00:00:[address] [place] 3.430.2.7 Hospi ta .3.975373 l .8 2021-10-06 2021-10-06 Office Galen, 1.2.840.1 [id number] 14464 Methodi 15:15:00 15:51:36 Visit Poli 00141.1.[address] [place] 3.430.2.7 Hospi ta .3.403671 l .8 2021-10-06 2021-10-06 Office Galen, 1.2.840.1 [id number] 13746 Methodi 15:15:00 15:51:36 Visit Poli 35825.1.[address] [place] 3.430.2.7 Hospi ta .3.633649 l .8 2021-10-06 2021-10-06 Travel 1.2.840.1 1.2.451.585 2492 005900 Methodi 00:00:00 00:00:[address] 3.430.2.7 0.2.7.3.698 Ho spita .3.147080 084.8 l .8 2021-10-06 2021-10-06 Travel 1.2.840.1 1.2.444.451 3205 [id number] Methodi 00:00:00 00:00:[address] 3.430.2.7 0.2.7.3.698 Ho spita .3.736674 084.8 l .8 2021-10-04 2021-10-04 Telephone Galen, 1.2.840.1 [id number] 533 [id number] Methodi 00:00:00 00:00:[address] [place] 3.430.2.7 Hospi ta .3.370645 l .8 2021-10-04 2021-10-04 Telephone Galen, 1.2.840.1 [id number] 703 [id number] Methodi 00:00:00 00:00:[address] [place] 3.430.2.7 Hospi ta .3.839232 l .8 2021-10-03 2021-10-03 Telephone Jose, 1.2.840.1 [id number] 247 [id number] Methodi 00:00:00 00:00:[address] 3.430.2.7 Hospit a .3.579816 l .8 2021-10-03 2021-10-03 Telephone Jose, 1.2.840.1 [id number] 471 [id number] Methodi 00:00:00 00:00:[address] 3.430.2.7 Hospit a .3.884030 l .8 2021-09-28 2021-09-28 Office Adrianna Miranda 1.2.840.1 [id number] 550 [id number] Methodi 14:30:00 16:45:56 [place]. [address]8733.1.[address] 3.430.2.7 Hospit a .3.182160 l .8 2021-09-28 2021-09-28 Office Adrianna Miranda 1.2.840.1 [id number] 949 [id number] Methodi 14:30:00 16:45:56 [place] [address]. [address]44.1.[address] 3.430.2.7 Hospit a .3.737177 l .8 2021-09-28 2021-09-28 Travel 1.2.840.1 1.2.588.401 8016 665186 Methodi 00:00:00 00:00:[address] 3.430.2.7 0.2.7.3.698 Ho spita .3.591705 084.8 l .8 2021-09-28 2021-09-28 Travel 1.2.840.1 1.2.803.491 9390 116218 Methodi 00:00:00 00:00:[address] 3.430.2.7 0.2.7.3.698 Ho spita .3.306879 084.8 l .8 2021-09-28 2021-09-28 [facility] AD[facility]ANNA [facility] 2100 [id number] [place] 00:00:00 00:00:[address] 2021-09-19 2021-09-19 Travel 1.2.840.1 1.2.285.370 6147 056518 Methodi 00:00:00 00:00:[address] 3.430.2.7 0.2.7.3.698 Ho spita .3.703082 084.8 l .8 2021-09-19 2021-09-19 Travel 1.2.840.1 1.2.464.323 9432 195559 Methodi 00:00:00 00:00:[address] 3.430.2.7 0.2.7.3.698 Ho spita .3.381209 084.8 l .8 2021-09-12 2021-09-12 Travel 1.2.840.1 1.2.643.284 2569 639407 Methodi 00:00:00 00:00:[address] 3.430.2.7 0.2.7.3.698 Ho spita .3.520226 084.8 l .8 2021-09-12 2021-09-12 Travel 1.2.840.1 1.2.808.669 9756 440091 Methodi 00:00:00 00:00:[address] 3.430.2.7 0.2.7.3.698 Ho spita .3.748512 084.8 l .8 2021-08-15 2021-08-15 Telephone Forgan, 1.2.840.1 [id number] 605 [id number] Methodi 00:00:00 00:00:[address] [place] 3.430.2.7 Hospi ta .3.421646 l .8 2021-08-15 2021-08-15 Telephone Forgan, 1.2.840.1 [id number] 841 [id number] Methodi 00:00:00 00:00:[address] [place] 3.430.2.7 Hospi ta .3.975366 l .8 2021-07-04 2021-07-04 Telephone Forgan, 1.2.840.1 [id number] 071 [id number] Methodi 00:00:00 00:00:[address] [place] 3.430.2.7 Hospi ta .3.990955 l .8 2021-07-04 2021-07-04 Telephone Forgan, 1.2.840.1 [id number] 305 [id number] Methodi 00:00:00 00:00:[address] [place] 3.430.2.7 Hospi ta .3.714856 l .8 2021-06-27 2021-06-27 [facility], 1.2.840.1 [id number] 924 [id number] Methodi 00:00:00 00:00:[address] [place] 3.430.2.7 Hospi ta .3.928835 l .8 2021-06-27 2021-06-27 [facility], 1.2.840.1 [id number] 790 [id number] Methodi 00:00:00 00:00:[address] [place] 3.430.2.7 Hospi ta .3.398455 l .8 2021-06-21 2021-06-21 Telephone Galen, 1.2.840.1 [id number] 375 [id number] Methodi 00:00:00 00:00:[address] [place] 3.430.2.7 Hospi ta .3.143516 l .8 2021-06-21 2021-06-21 Telephone Forgan, 1.2.840.1 [id number] 900 [id number] Methodi 00:00:00 00:00:[address] [place] 3.430.2.7 Hospi ta .3.031302 l .8 2021-06-19 2021-06-19 Refill Forgan, 1.2.840.1 [id number] 60 Methodi 00:00:00 00:00:[address] [place] 3.430.2.7 Hospi ta .3.260744 l .8 2021-06-19 2021-06-19 Refill Galen, 1.2.840.1 [id number] 60 Methodi 00:00:00 00:00:[address] [place] 3.430.2.7 Hospi ta .3.184551 l .8 2021-05-31 2021-05-31 Telephone Galen, 1.2.840.1 [id number] 862 [id number] Methodi 00:00:00 00:00:[address] [place] 3.430.2.7 Hospi ta .3.071009 l .8 2021-05-31 2021-05-31 Telephone Forgan, 1.2.840.1 [id number] 519 [id number] Methodi 00:00:00 00:00:[address] [place] 3.430.2.7 Hospi ta .3.408283 l .8 2021-05-30 2021-05-30 Telephone Forgan, 1.2.840.1 [id number] 929 [id number] Methodi 00:00:00 00:00:00 Poli [address]34.1.[address] 3.430.2.7 Hospi ta .3.945663 l .8 2021-05-30 2021-05-30 Telephone Galen, 1.2.840.1 [id number] [id number] Methodi 00:00:00 00:00:[address] 3.430.2.7 Hospi ta .3.804077 l .8 2021-04-22 2021-04-22 Telephone Galen, 1.2.840.1 [id number] Methodi 00:00:00 00:00:[address] 3.430.2.7 Hospi ta .3.855978 l .8 2021-04-15 2021-04-15 [facility], 1.2.840.1 [id number] Methodi 00:00:00 00:00:[address] 3.430.2.7 Hospi ta .3.907846 l .8 2021-04-12 2021-04-12 Telephone Galen, 1.2.840.1 [id number] Methodi 00:00:00 00:00:[address] 3.430.2.7 Hospi ta .3.485669 l .8 2021-04-04 2021-04-04 Orders Forgan, 1.2.840.1 [id number] Methodi 00:00:00 00:00:00 Only Poli 13740.1.[address] 3.430.2.7 Hospi ta .3.112233 l .8 2021-04-04 2021-04-04 Orders Forgan, 1.2.840.1 [id number] 21001 24720 Methodi 00:00:00 00:00:00 Only Poli 52443.1.[address] 3.430.2.7 Hospi ta .3.525893 l .8 2021-03-31 2021-03-31 Lab Forgan, 1.2.840.1 [id number] 42708 Methodi 10:00:00 10:05:[address] 3.430.2.7 Hospi ta .3.534472 l .8 2021-03-31 2021-03-31 Office Forgan, 1.2.840.1 [id number] 18345 Methodi 09:15:00 09:51:04 Visit Poli 13036.1.[address] 3.430.2.7 Hospi ta .3.076525 l .8 2021-03-31 2021-03-31 Travel 1.2.840.1 1.2.651.455 4094 [id number] Methodi 00:00:00 00:00:[address] 3.430.2.7 0.2.7.3.698 Ho spita .3.561383 084.8 l .8 2021-03-30 2021-03-30 Telephone Forgan, 1.2.840.1 [id number] Methodi 00:00:00 00:00:[address] 3.430.2.7 Hospi ta .3.808765 l .8 2021-03-29 2021-03-29 Travel 1.2.840.1 1.2.495.995 1190 [id number] Methodi 00:00:00 00:00:[address] 3.430.2.7 0.2.7.3.698 Ho spita .3.482461 084.8 l .8 2021 2021 Refill Forgan, 1.2.840.1 [id number] Methodi 00:00:00 00:00:[address] 3.430.2.7 Hospi ta .3.606655 l .8 2021-02-23 2021-02-23 Telephone Galen, 1.2.840.1 [id number] Methodi 00:00:00 00:00:[address] 3.430.2.7 Hospi ta .3.796883 l .8 2021-02-07 2021-02-07 Telephone Galen, 1.2.840.1 [id number] 808 [id number] Methodi 00:00:00 00:00:[address] 3.430.2.7 Hospi ta .3.656842 l .8 2021-02-02 2021-02-02 Refill Galen, 1.2.840.1 [id number] 66108 Methodi 00:00:00 00:00:[address] 3.430.2.7 Hospi ta .3.410788 l .8 2021-01-31 2021-01-31 Telephone Galen, 1.2.840.1 [id number] 771 [id number] Methodi 00:00:00 00:00:[address] 3.430.2.7 Hospi ta .3.335573 l .8 2021-01-14 2021-01-14 [facility] [id number] 3864 [place] 00:00:00 00:00:00 POLI [address] 2021-01-05 2021-01-05 [facility] [id number] [place] 00:00:00 00:00:00 POLI [address] 2020-12-28 2020-12-28 Outpatient GALEN [facility] [id number] [place] 00:00:00 00:00:00 POLI [address] 2020-12-21 2020-12-21 [facility] [id number] [place] 00:00:00 00:00:00 POLI [address] 2020-12-21 2020-12-21 Outpatient GALEN [facility] [id number] [place] 00:00:00 00:00:00 POLI [address] 2020-11-05 2020-11-05 Outpatient [facility]EN [facility] [id number] 7472 [place] 00:00:00 00:00:00 POLI [address] 2020-10-25 2020-10-25 Outpatient GALEN [facility] [id number] [place] 00:00:00 00:00:00 POLI [address] 2020-08-24 2020-08-24 Outpatient [facility] 7503 [facility] 11:43:00 12:55:00 NERISSA 2020-07-15 2020-07-15 Outpatient [facility]ALEN [facility] [id number] [place] 00:00:00 00:00:00 POLI 251 [address] 2020-07-15 2020-07-15 Outpatient GALEN [facility] [id number] 6140 [place] 00:00:00 00:00:[address] POLI [address] 2020-07-15 2020-07-15 Outpatient GALEN [facility] [id number] [place] 00:00:00 00:00:00 POLI [address] 2020-07-14 2020-07-14 Outpatient MIRANDAAUBRIEY [facility] 2100 [id number] [place] 00:00:00 00:00:[address] 2020-07-14 2020-07-14 Outpatient NATHANAUBRIEY [facility] 2100 [id number] [place] 00:00:00 00:00:[address] 2020-03-01 2020-03-01 Outpatient GALEN [facility] [id number] [place] 00:00:00 00:00:00 POLI [address] 2019-12-17 2019-12-17 Outpatient NATHANAUBRIEY [facility] 2100 [id number] [place] 00:00:00 00:00:[address] 2019-12-09 2019-12-09 Outpatient GALEN [facility] [id number] [place] 00:00:00 00:00:00 POLI [address] 2019-12-09 2019-12-09 Outpatient GALEN [facility] [id number] [place] 00:00:00 00:00:[address] POLI [address] 2019-09-25 2019-09-25 Discharged GRCEIA KHAN AL06 [id number] [facility] 00:55:00 13:28:[address] [facility] [address] [facility] (obs[facility] 2019-09-25 2019-09-25 Discharged ER BILL [place] [id number] [facility] 00:55:00 00:55:00 Inpatient KARI 45 S ([facility] 2019-08-26 2019-08-26 Outpatient GALEN [facility] [id number] 2270 [place] 00:00:00 00:00:00 POLI [address] 2019-07-29 2019-07-29 Outpatient KARLA SchroederCL OUTD [id number] 2000 [facility] 12:10:00 12:10:00 Robi 89 [facility] 2019-07-29 2019-07-29 Outpatient KARLA UsWU 3DAY [id number] [facility] 00:00:00 00:00:00 Robi 92 [facility] 2019-07-19 2019-07-19 Outpatient KARLA WilsonWU SURG [id number] [facility] 12:00:00 12:00:00 Wilbur 28 [facility] 2019-05-21 2019-05-21 Outpatient GALEN [facility] [id number] [place] 00:00:00 00:00:00 POLI [address] 2019-04-21 2019-04-21 Outpatient [facility] 7502 [facility] 11:41:00 11:41:00 Results Test Description Test Time Test Comments Results Result Comments Source POC glucose 2022-01-30 16:16:00 Test Item Value Reference Range Interpretation Comme nts POC glucose (test code = 90 mg/dL 65-99 Ope rator Name: Alden Shane ID: [id number]) [id number] able: [facility] Notified RNChartable: No Action Needed [facility] [id number] 13:06:00 Test Item Value Reference Interpretation Comments Range Glucose (test code 117 mg/dL 65-99 H Fasting reference = 2345-7) interval For so jose r without known diabetes, a glu cose valuebetween 10 0 and 125 mg/dL is consistent withprediabetes and should be confi rmed with afollow-up test. BUN (test code = 17 mg/dL 7-25 3094-0) Creatinine (test 0.89 mg/dL 0.60-0.95 code = 2160-0) eGFR (test code = 63 See_Comment The eGFR i s based on 8257) the CKD-EPI 202 1 equation. To calculate the n ew eGFR from a pre vious Creatinine or Cystatin Cresul t, go to https://www.kid raymond.o rg/professional s/kdo qi/gfr%5Fcalcul ator [Automated mess age] The system [employer] generated this result transmit danielle reference range : > OR = 60 mL/min/1.73m2. The reference range was not used to interpret this result as normal/abnormal . BUN/creatinine NOT APPLICABLE See_Comment [Automated message] ratio (test code = The syste m which 3097-3) generated this result transmit danielle reference range : 6 - 22 (calc). The reference range was not used to interpret this result as normal/abnormal . Sodium (test code = 142 mmol/L 033-145 5135-2) Potassium (test 3.8 mmol/L 3.5-5.3 code = 2823-3) Chloride (test code 100 mmol/L 98-110 = 2075-0) CO2 (test code = 32 mmol/L 20-32 2027-9) Calcium (test code 10.4 mg/dL 8.6-10.4 = 89079-3) Protein (test code 7.4 g/dL 6.1-8.1 = 2885-2) Albumin, S (test 4.8 g/dL 3.6-5.1 code = 1751-7) Globulin, total 2.6 See_Comment [Automated message] (test code = The system [employer] 18871-6) generated this result transmit danielle reference range : 1.9 - 3.7 g/dL (merissa c). The reference r john was not used to interpret this result as normal/abnormal . Albumin/globulin 1.8 See_Comment [Automated message] ratio (test code = The syste m which 175-0) generated this result transmit danielle reference range : 1.0 - 2.5 (calc). T he reference range was not used to interpret this result as normal/abnormal . Total bilirubin 0.6 mg/dL 0.2-1.2 (test code = 1975-2) Alkaline 43 U/L 37-153 phosphatase (test code = 6768-6) AST (test code = 22 U/L 10-35 1920-8) ALT (test code = 17 U/L 6-29 1742-6) BANDAR (test code = FASTING:YES BANDAR) FASTING: YES RAC (test code = Performing RAC) Organization Information: Site ID: RGA Name: [facility] Address: [address] [place] [phone] Director: Robi Rodas Lab Interpretation Abnormal (test code = 41728-0) [facility] Hospital[facility] [id number] 13:06:00 Test Item Value Reference Range Interpretation Comments Cholesterol, total 202 mg/dL <=200 H (test code = 2093-3) HDL cholesterol 62 mg/dL See_Comment [Automated (test code = 2084-) message ] The system which generated this result transmitted reference range : > OR = 50. The reference range was not used to interpret this result as normal/abnormal . Triglycerides (test 113 mg/dL <=150 code = 2571-8) LDL cholesterol 118 mg/dL (calc) H Reference ra nge: calculated (test <100 Desira ble code = 22751-2) range <100 m g/dL for primary prevention; <70 mg/dL for patients with C HD or diabetic patients with > or = 2 CHD risk factors. LDL-C is now calculated using the Geoff-Jaya calculation, which is a validated novel method matthew g better accuracy than the Friedewald equation in the estimation of LDL-C. Geoff Elizabeth S et al. MARY. 2013;310(19): 2289-9585 (http://educati on .Beijingyicheng .com/faq/QRW743 ) Cholesterol/HDL 3.3 See_Comment [Automated ratio (test code = message] The 9830-1) system which generated this result transmitted reference range : <5.0 (calc). Th e reference range was not used to interpret this result as normal/abnormal . Non-HDL cholesterol 140 See_Comment H For rolly ents with (test code = diabetes plus 1 24499-9) major ASCVD ris k factor, treatin g [...] RAC) Organization Information: Site ID: RGA [facility]: [facility] Address: [address] [place] [phone] Director: Robi Rodas Lab Interpretation Abnormal (test code = 13664-5) [facility] HospitalHemoglobin [id number] 13:06:00 Test Item Value Reference Range Interpretation Comments Hemoglobin A1C 5.4 See_Comment For the purpo se of (test code = screening for t he 4548-4) presence ofdiab etes: <5.7% Consiste nt with the absenc e of diabetes5.7-6.4 % Consistent with increased risk [...] specif ic patient populat ions. Standards of Mn dical Care in Diabetes(ADA). [Automated mess age] The system [employer] generated this result transmitted ref erence range: <5.7 % o f total Hgb. The reference range was not used to int erpret this result as normal/abnormal . BANDAR (test code = FASTING:YES BANDAR) FASTING: YES RAC (test code = Performing RAC) Organization Information: Site ID: JACKA Name: [facility] Address: [address] [place] [phone] Director: Robi Rodas [facility] HospitalThyroid stimulating [id number] 13:06:00 Test Item Value Reference Range Interpretation Comments TSH (test code = 0.17 See_Comment L [Automated 1956-3) message] The system which generated this result transmitted reference range : 0.40 - 4.50 mIU/L. The reference range was not used to interpret this result as normal/abnormal . BANDAR (test code = FASTING:YES BANDAR) FASTING: YES RAC (test code = Performing RAC) Organization Information: Site ID: SAL Name: [facility] Address: [address] [place] [address] Director: Robi Rodas Lab Interpretation Abnormal (test code = 21188-0) [facility] HospitalCB with platelet and [id number] 13:06:00 Test Item Value Reference Range Interpretation Comments WBC (test code = 10.1 See_Comment [Automated 1590-2) message] The system which generated this result transmitted reference range : 3.8 - 10.8 Thousand/uL. Th e reference range was not used to interpret this result as normal/abnormal . RBC (test code = 4.24 See_Comment [Automated 829-8) message] The system which generated this result [...] 12.4 % 11.0-15.0 788-0) Platelet count (test 319 See_Comment [Autom ated code = 777-3) message] The system which generated this result transmitted reference range : 140 - 400 Thousand/uL. Th e reference range was not used to interpret this result as normal/abnormal . MPV (test code = 10.3 fL 7.5-12.5 776-5) Neutrophils, 8474 See_Comment H [Automated absolute (test code message] The = 751-8) system which generated this result transmitted reference range : 1,500 - 7,800 cells/uL. The reference range was not used to interpret this result as normal/abnormal . Lymphocytes, 1081 See_Comment [Automated absolute (test code message] The = 731-0) system which generated this result transmitted reference range : 850 - 3,900 cells/uL. The reference range was not used to interpret this result as normal/abnormal . Monocytes, absolute 535 See_Comment [Automa danielle (test code = 742-7) [...] this result as normal/abnormal . Basophils, absolute 10 See_Comment [Automa danielle (test code = 704-7) [...] RAC) Organization Information: Site ID: RGA Name: [facility] Address: [address] [place] [phone] Director: Robi Rodas Lab Interpretation Abnormal (test code = 49713-8) [facility] HospitalUrinalysis, automated with [id number] 13:06:00 Test Item Value Reference Range Interpretation Comments Color, UA (test code YELLOW YELLOW = 5778-6) Appearance (test CLEAR CLEAR code = 5767-9) Specific gravity, 1.013 1.001-1.035 urine (test code = 5811-5) pH, urine (test code 7.5 5.0-8.0 = 5803-2) Glucose, urine (test NEGATIVE NEGATIVE code = 04852-4) Bilirubin, UA (test NEGATIVE NEGATIVE code = 5770-3) Ketones, UA (test NEGATIVE NEGATIVE code = 2514-8) Occult blood, urine NEGATIVE NEGATIVE (test code = 5794-3) Protein, UA (test TRACE NEGATIVE A code = 59032-9) Nitrite, UA (test NEGATIVE NEGATIVE code = [...] code = NONE SEEN See_Comment [Autom ated 99067-8) message] The system which generated this result transmitted reference range : < OR = 2 /HPF. The reference range was not used to interpr et this result as normal/abnormal . Squamous epithelial 0-5 See_Comment [Automa danielle cells, UA (test code message ] The = 71768-5) system which generated this result transmitted reference [...] RAC) Organization Information: Site ID: RGA Name: [facility] Lab Address: [address] [place] [phone] Director: Robi Rodas Lab Interpretation Abnormal (test code = 89301-0) [facility] HospitalVitamin D 25 hydroxy [id number] 13:06:00 Test Item Value Reference Range Interpretation [...] please refer to http://educatio n.Q uestDiagnostics .co m/faq/YJB272 (T his link is being provided for informational/e sunil ational purpose s only.) BANDAR (test code = FASTING:YES FASTING: BANDAR) YES RAC (test code = Performing RAC) Organization Information: Site ID: RGA [facility]: [facility] Address: [address] [place] [phone] Director: Robi Rodas [facility] HospitalComprehensive metabolic [id number] 13:06:00 Test Item Value Reference Interpretation Comments Range Glucose (test code 117 mg/dL 65-99 H Fasting reference = 2345-7) interval For so meone without known diabetes, a glu cose valuebetween 10 0 and 125 mg/dL is consistent withprediabetes and should be confi rmed with afollow-up test. BUN (test code = 17 mg/dL 7-25 3094-0) Creatinine (test 0.89 mg/dL 0.60-0.95 code = 2160-0) eGFR (test code = See_Comment The eGFR i s based on 8257) the CKD-EPI 202 1 equation. To calculate the n ew eGFR from a pre vious Creatinine or Cystatin Cresul t, go to https://www.kid raymond.o rg/professional s/kdo qi/gfr%5Fcalcul ator [Automated mess age] The system [employer] generated this result transmit danielle reference range : > OR = 60 mL/min/1.73m2. The reference range was not used to interpret this result as normal/abnormal . BUN/creatinine NOT APPLICABLE See_Comment [Automated message] ratio (test code = The syste m which 3097-3) generated this result transmit danielle reference range : 6 - 22 (calc). The reference range was not used to interpret this result as normal/abnormal . Sodium (test code = 142 mmol/L 310-241 9518-2) Potassium (test 3.8 mmol/L 3.5-5.3 code = 2823-3) Chloride (test code 100 mmol/L 98-110 = 2075-0) CO2 (test code = 32 mmol/L 20-32 2027-9) Calcium (test code 10.4 mg/dL 8.6-10.4 = 42502-1) Protein (test code 7.4 g/dL 6.1-8.1 = 2885-2) Albumin, S (test 4.8 g/dL 3.6-5.1 code = 1751-7) Globulin, total See_Comment [Automated message] (test code = The system Leversense h 03687-8) generated this result transmit danielle reference range : 1.9 - 3.7 g/dL (merissa c). The reference r john was not used to interpret this result as normal/abnormal . Albumin/globulin See_Comment [Automated message] ratio (test code = The [employer] which 1759-0) generated this result transmit danielle reference range : 1.0 - 2.5 (calc). T he reference range was not used to interpret this result as normal/abnormal . Total bilirubin 0.6 mg/dL 0.2-1.2 (test code = 1974-2) Alkaline 43 U/L 37-153 phosphatase (test code = 6768-6) AST (test code = 22 U/L 10-35 1920-8) ALT (test code = 17 U/L 6-29 1742-6) BANDAR (test code = FASTING:YES BANDAR) FASTING: YES RAC (test code = Performing RAC) Organization Information: Site ID: RGA Name: [facility] Address: [address] [place] [address] Director: Robi L Adrianna Lab Interpretation Abnormal (test code = 02726-1) [facility] HospitalLipid [id number] 13:06:00 Test Item Value Reference Range Interpretation [...] calculated (test <100 Desira ble code = 28499-9) range <100 m g/dL for primary prevention; <70 mg/dL for patients with C HD or diabetic patients with > or = 2 CHD risk factors. LDL-C is now calculated using the Geoff-Jaya calculation, which is a validated novel method providin g better accuracy than the Friedewald equation in the estimation of LDL-C. Geoff S S et al. MARY. 2013;310(19): 8800-8139 (http://educati on .QuestDiagnosti Zartis .com/faq/WRR787 ) Cholesterol/HDL See_Comment [Automated ratio (test code = message] The 9830-1) system which generated this result transmitted reference range : <5.0 (calc). Th e reference range was not used to interpret this result as normal/abnormal . Non-HDL cholesterol See_Comment H For rolly ents with (test code = diabetes plus 1 33125-7) major ASCVD ris k factor, treatin g [...] = Performing RAC) Organization Information: Site ID: [facility] Name: [facility] Address: [address] [place] [phone] Director: Robi Rodas Lab Interpretation Abnormal (test code = 24320-2) [facility] HospitalHemoglobin [id number] 13:06:00 Test Item Value Reference Range Interpretation [...] specif ic patient populat ions. Standards of Mn dical Care in Diabetes(ADA). [Automated mess age] The system [employer] generated this result transmitted ref erence range: <5.7 % o f total Hgb. The reference range was not used to int erpret this result as normal/abnormal . BANDAR (test code = FASTING:YES BANDAR) FASTING: YES RAC (test code = Performing RAC) Organization Information: Site ID: [facility] Name: [facility] Lab Address: [address] [place] [phone] Director: Robi Rodas [facility] HospitalThyroid stimulating [id number] 13:06:00 Test Item Value Reference Range Interpretation Comments TSH (test code = See_Comment L [Automated 9896-3) message] The system which generated this result transmitted reference range : 0.40 - 4.50 mIU/L. The reference range was not used to interpret this result as normal/abnormal . BANDAR (test code = FASTING:YES BANDAR) FASTING: YES RAC (test code = Performing RAC) Organization Information: Site ID: [facility] Name: [facility] Lab Address: [address] [place] [address] Director: Robi Rodas Lab Interpretation Abnormal (test code = 14426-0) [facility] with platelet and [id number] 13:06:00 Test Item Value Reference Range Interpretation Comments WBC (test code = See_Comment [Automated 6690-2) message] The system which generated this result transmitted reference range : 3.8 - 10.8 Thousand/uL. Th e reference range was not used to interpret this result as normal/abnormal . RBC (test code = See_Comment [Automated 789-8) message] The system which [...] RAC) Organization Information: Site ID: RGA [facility]: [facility] Address: [address] [place] [phone] Director: Robi Rodas Lab Interpretation Abnormal (test code = 15463-8) [facility] HospitalUrinalysis, automated with [id number] 13:06:00 Test Item Value Reference Range Interpretation Comments Color, UA (test code YELLOW YELLOW = 5778-6) Appearance (test CLEAR CLEAR code = 5767-9) Specific gravity, 1.001-1.035 urine (test code = 5811-5) pH, urine (test code 5.0-8.0 = 5803-2) Glucose, urine (test NEGATIVE NEGATIVE code = 33600-4) Bilirubin, UA (test NEGATIVE NEGATIVE code = 5770-3) Ketones, UA (test NEGATIVE NEGATIVE code = 2514-8) Occult blood, urine NEGATIVE NEGATIVE (test code = 5794-3) Protein, UA (test TRACE NEGATIVE A code = 84728-1) Nitrite, UA (test NEGATIVE NEGATIVE code = [...] code = NONE SEEN See_Comment [Autom ated 33356-7) message] The system which generated this result transmitted reference range : < OR = 2 /HPF. The reference range was not used to interpr et this result as normal/abnormal . Squamous epithelial 0-5 See_Comment [Automa danielle cells, UA (test code message ] The = 38804-0) system which generated this result transmitted reference [...] RAC) Organization Information: Site ID: RGA Name: [facility] Address: [address] [place] [address] Director: Robi Rodas Lab Interpretation Abnormal (test code = 15667-6) [facility] HospitalVitamin D 25 hydroxy [id number] 13:06:00 Test Item Value Reference Range Interpretation Comments Vitamin D, 71 ng/mL 30-100 Vitamin D Statu s 25-hydroxy (test 25-OH Vitam in D: code = 1989-3) Deficiency: < 20 ng/mLInsufficie ncy : 20 [...] please refer to http://educatio n.Q uestDiagnostics .co m/faq/FUA156 (T his link is being provided for informational/e sunil ational purpose s only.) BANDAR (test code = FASTING:YES FASTING: BANDAR) YES RAC (test code = Performing RAC) Organization Information: Site ID: RGA Name: [facility] Lab Address: [address] [place] [address] Director: [facility]i WisemanHackensack University Medical CenterHSV 1 and 2 specific Ab [id number] 00:13:00 Test Item Value Reference Interpretation Comments [...] RAC) Organization Information: Site ID: IG Name: [facility] Lab Address: [address] [place] [address] Director: Dr. Robi Rodas Lab Interpretation Abnormal (test code = 38736-0) [facility] HospitalTroponin I [id number] 12:00:00 Test Item Value Reference Range Interpretation Comments Troponin I (test code = 72198-1) 0.389 ng/mL 0.00-0.045 [facility] [id number] 12:00:00 Test Item Value Reference Range Interpretation Comments Troponin I (test code = 79422-8) 0.389 ng/mL Automated blood neutrophil count (number/volume)2019-09-25 04:50:00 Test Item Value Reference Range Interpretation Comments Neutrophils # (Auto) (test code = 5.2 10*3/uL 1.4-7.0 751-8) [facility] HealthAutomated blood immature granulocyte count as percentage of total [id number] 04:50:00 Test Item Value Reference Range Interpretation Comments Immature Granulocyte # (Auto) (test 0.0400 0.0-0.0310 code = 97013-1) [facility] HealthAutomated blood lymphocyte count (number/volume)2019-09-25 04:50:00 Test Item Value Reference Range Interpretation Comments Lymphocytes # (Auto) (test code = 1.6 10*3/uL 1.2-4.0 731-0) [facility] automated count (number/volume)2019-09-25 04:50:00 Test Item Value Reference Range Interpretation Comments Monocytes # (Auto) (test code = 0.6 10*3/uL 0.1-0.8 742-7) [facility] HealthAutomated blood eosinophil nuyeb5359-68-33 04:50:00 Test Item Value Reference Range Interpretation Comments Eosinophils # (Auto) (test code = 0.2 10*3/uL 0.0-0.6 711-2) [facility] HealthAutomated blood basophil count (number/volume)2019-09-25 04:50:00 Test Item Value Reference Range Interpretation Comments Basophils # (Auto) (test code = 0.1 10*3/uL 0.0-0.3 704-7) [facility] HealthAutomated blood leukocyte count corrected for nucleated ivmqdzmvrlna9619-99-62 04:50:00 Test Item Value Reference Range Interpretation Comments Nucleated Red Blood Cells # (test code 0.000 0-0.012 = 05017-1) [facility] by photometricmethod (length/[id number] 04:50:00 Test Item Value Reference Range Interpretation Comments Erythrocyte Sedimentation Rate (test 7 mm/h 0-20 code = 69399-8) [facility] HealthSodium measurement (moles/volume)2019-09-25 04:50:00 Test Item Value Reference Range Interpretation Comments Sodium Level (test code = 27897-6) 139 mmol/L 131-143 [facility] HealthSerum or plasma [...] 21-32 8-9) [facility] HealthSerum or plasma anion vmz1356-77-14 04:50:00 Test Item Value Reference Range Interpretation Comments Anion Gap (test code = 55258-1) 7.0 mmol/L 3.0-11.0 [facility] HealthSerum or plasma urea nitrogen measurement (mass/volume)2019-09-25 04:50:00 Test Item Value Reference Range Interpretation Comments Blood Urea Nitrogen (test code = 23.0 mg/dL 7.0-18.0 3094-0) [facility] HealthSerum or plasma creatinine measurement (mass/volume)2019-09-25 04:50:00 Test Item Value Reference Range Interpretation Comments Creatinine (test code = 2160-0) 0.958 mg/dL 0.550-1.02 [facility] HealthGFR estimate [id number] 04:50:00 Test Item Value Reference Range Interpretation Comments Estimat Glomerular Filtration Rate 56 >60 (test code = 84985-1) [facility] HealthSerum or plasma glucose measurement (mass/volume)2019-09-25 04:50:00 Test Item Value Reference Range Interpretation Comments Glucose Level (test code = 2345-7) 102 mg/dL 74-106 [facility] HealthSerum or plasma calcium measurement (mass/volume)2019-09-25 04:50:00 Test Item Value Reference Range Interpretation Comments Calcium Level (test code = 32303-4) 9.5 mg/dL 8.5-10.1 [facility] HealthSerum or plasma creatine kinase MB measurement (mass/volume) 2019-09-25 04:50:00 Test Item Value Reference Range Interpretation Comments Creatine Kinase MB (test code = 3.3 ng/mL 0.3-3.6 45365-9) [facility] HealthSerum or plasma C reactive protein [...] erythrocyte mean corpuscular hemoglobin concentration (MCHC) measurement ([id number] 04:50:00 Test Item Value Reference Range Interpretation Comments Mean Corpuscular Hemoglobin Concent 32.0 % 32.0-36.0 (test code = 786-4) [facility] HealthAutomated erythrocyte distribution width xvtil4253-26-35 04:50:00 Test Item Value Reference Range Interpretation Comments Red Cell Distribution Width (test code 13.0 % 0.0-15.5 = 788-0) [facility] HealthAutomated blood platelet count (count/volume)2019-09-25 04:50:00 Test Item Value Reference Range Interpretation Comments Platelet Count (test code = 287 10*3/uL 130-400 777-3) [facility] HealthAutomated blood platelet mean volume xxghbltjvik2359-92-50 04:50:00 Test Item Value Reference Range Interpretation Comments Mean Platelet Volume (test code = 10.2 fL 9.2-12.2 33778-4) [facility] HealthAutomated blood neutrophil count as percentage of total xsyyfbcsel2907-15-57 04:50:00 Test Item Value Reference Range Interpretation Comments Neutrophils (%) (Auto) (test code = 67.2 % 50-80 770-8) [facility] HealthAutomated blood immature granulocyte count as percentage of total czxxuaesum3555-23-18 04:50:00 Test Item Value Reference Range Interpretation Comments Immature Granulocyte % (Auto) (test 0.50 % 0.0-0.43 code = 24612-6) [facility]Automated blood lymphocyte count as percentage of total hzkadxzqdt9533-98-37 04:50:00 Test Item Value Reference Range Interpretation Comments Lymphocytes (%) (Auto) (test code = 20.4 % 20.0-45.0 736-9) [facility] HealthAutomated blood monocyte count as percentage of total leukocytes 2019-09-25 04:50:00 Test Item Value Reference Range Interpretation Comments Monocytes (%) (Auto) (test code = 8.0 % 2-10 5905-5) [facility]Automated blood eosinophil count as percentage of total vbngzqpniv4931-03-46 04:50:00 Test Item Value Reference Range Interpretation Comments Eosinophils (%) (Auto) (test code = 3.1 % 0-6 713-8) [facility]Automated blood basophil count as percentage of total leukocytes 2019-09-25 04:50:00 Test Item Value Reference Range Interpretation Comments Basophils (%) (Auto) (test code = 0.8 % 0-3 706-2) [facility] HealthAutomated blood nucleated erythrocyte count as percentage of total rhsmxfnzgq1680-12-08 04:50:00 Test Item Value Reference Range Interpretation Comments Nucleated Red Blood Cells % (test code 0.0 % 0-0.2 = 75216-4) [facility] HealthSodium measurement (moles/volume)2019-09-25 04:50:00 Test Item Value Reference Range Interpretation Comments Sodium Level (test code = 75750-8) 139 mmol/L Serum or plasma potassium measurement [...] Dioxide Level (test code = 27 mmol/L 8-9) Serum or plasma anion hjk9804-84-22 04:50:00 Test Item Value Reference Range Interpretation Comments Anion Gap (test code = 14246-9) 7.0 mmol/L Serum or plasma urea nitrogen measurement (mass/volume)2019-09-25 04:50:00 Test Item Value Reference Range Interpretation Comments Blood Urea Nitrogen (test code = 23.0 mg/dL 3094-0) Serum or plasma creatinine measurement (mass/volume)2019-09-25 04:50:00 Test Item Value Reference Range Interpretation Comments Creatinine (test code = 2160-0) 0.958 mg/dL GFR estimate [id number] 04:50:00 Test Item Value Reference Range Interpretation Comments Estimat Glomerular Filtration Rate 56 (test code = 84182-3) Serum or plasma glucose measurement (mass/volume)2019-09-25 04:50:00 Test Item Value Reference Range Interpretation Comments Glucose Level (test code = 2345-7) 102 mg/dL Serum or plasma calcium measurement (mass/volume)2019-09-25 04:50:00 Test Item Value Reference Range Interpretation Comments Calcium Level (test code = 48499-5) 9.5 mg/dL Serum or plasma creatine kinase MB measurement (mass/volume)2019-09-25 04:50:00 Test Item Value Reference Range Interpretation Comments Creatine Kinase MB (test code = 3.3 ng/mL 10923-4) Serum or plasma C reactive protein measurement (mass/volume)2019-09-25 04:50:00 Test Item Value Reference Range Interpretation Comments C-Reactive Protein, Quantitative < 0.29 mg/dL (test code = 1988-5) Automated blood leukocyte count (number/volume)2019-09-25 04:50:00 Test Item [...] % Automated erythrocyte mean corpuscular volume (MCV) mvqybryqchu6111-66-97 04:50:00 Test Item Value Reference Range Interpretation Comments Mean Corpuscular Volume (test code = 91.4 fL 787-2) Automated erythrocyte mean corpuscular hemoglobin (mass per erythrocyte) 2019-09-25 04:50:00 Test Item Value Reference Range Interpretation Comments Mean Corpuscular Hemoglobin (test 29.3 pg code = 785-6) Automated erythrocyte mean corpuscular hemoglobin concentration (MCHC) measurement (w9020-10-66 04:50:00 Test Item Value Reference Range Interpretation Comments Mean Corpuscular Hemoglobin Concent 32.0 % (test code = 786-4) Automated erythrocyte distribution width ttbeu2421-04-95 04:50:00 Test Item Value Reference Range Interpretation Comments Red Cell Distribution Width (test code 13.0 % = 788-0) Automated blood platelet count (count/volume)2019-09-25 04:50:00 Test Item Value Reference Range Interpretation Comments Platelet Count (test code = 287 10*3/uL 777-3) Automated blood platelet mean volume tiookprzubc0592-99-25 04:50:00 Test Item Value Reference Range Interpretation Comments Mean Platelet Volume (test code = 10.2 fL 43827-4) Automated blood neutrophil count as percentage of total hxpliupihm7885-04-83 04:50:00 Test Item Value Reference Range Interpretation Comments Neutrophils (%) (Auto) (test code = 67.2 % 770-8) Automated blood immature granulocyte count as percentage of total leukocytes 2019-09-25 04:50:00 Test Item Value Reference Range Interpretation Comments Immature Granulocyte % (Auto) (test 0.50 % code = 05876-2) Automated blood lymphocyte count as percentage of total vvtwranulr1469-27-39 04:50:00 Test Item Value Reference Range Interpretation Comments Lymphocytes (%) (Auto) (test code = 20.4 % 736-9) Automated blood monocyte count as percentage of total ikrpiibafb6956-06-40 04:50:00 Test Item Value Reference Range Interpretation Comments Monocytes (%) (Auto) (test code = 8.0 % 5905-5) Automated blood eosinophil count as percentage of total qjmiynyidx4189-61-99 04:50:00 Test Item Value Reference Range Interpretation Comments Eosinophils (%) (Auto) (test code = 3.1 % 713-8) Automated blood basophil count as percentage of total kzkyrkdabd2056-02-12 04:50:00 Test Item Value Reference Range Interpretation Comments Basophils (%) (Auto) (test code = 0.8 % 706-2) Automated blood nucleated erythrocyte count as percentage of total leukocytes 2019-09-25 04:50:00 Test Item Value Reference Range Interpretation Comments Nucleated Red Blood Cells % (test code 0.0 % = 89951-2) Automated blood neutrophil count (number/volume)2019-09-25 04:50:00 Test Item Value Reference Range Interpretation Comments Neutrophils # (Auto) (test code = 5.2 10*3/uL 751-8) Automated blood immature granulocyte count as percentage of total leukocytes 2019-09-25 04:50:00 Test Item Value Reference Range Interpretation Comments Immature Granulocyte # (Auto) (test 0.0400 code = 34122-9) Automated blood lymphocyte count (number/volume)2019-09-25 04:50:00 Test Item Value Reference Range Interpretation Comments Lymphocytes # (Auto) (test code = 1.6 10*3/uL 731-0) Blood monocytes automated count (number/volume)2019-09-25 04:50:00 Test Item Value Reference Range Interpretation Comments Monocytes # (Auto) (test code = 0.6 10*3/uL 742-7) Automated blood eosinophil hbrgh0311-19-46 04:50:00 Test Item Value Reference Range Interpretation Comments Eosinophils # (Auto) (test code = 0.2 10*3/uL 711-2) Automated blood basophil count (number/volume)2019-09-25 04:50:00 Test Item Value Reference Range Interpretation Comments Basophils # (Auto) (test code = 0.1 10*3/uL 704-7) Automated blood leukocyte count corrected for nucleated chnlzwsurxpd9691-54-60 04:50:00 Test Item Value Reference Range Interpretation Comments Nucleated Red Blood Cells # (test code 0.000 = 70751-0) Blood erythrocyte sedimentation rate (ESR) measurement by photometricmethod (length/f7367-29-73 04:50:00 Test Item Value Reference Range Interpretation Comments Erythrocyte Sedimentation Rate (test 7 mm/h code = 40940-0) Serum or plasma magnesium measurement (mass/volume)2019-09-24 22:42:00 Test Item Value Reference Range Interpretation Comments Magnesium Level (test code = 2.3 mg/dL 1.6-2.6 99963-7) [facility]um or plasma total bilirubin measurement (mass/volume) 2019-09-24 22:42:00 Test Item Value Reference Range Interpretation Comments Total Bilirubin (test code = 0.4 mg/dL 0.2-1.0 1975-2) [facility] HealthSerum or plasma aspartate aminotransferase measurement [...] (test code = 1751-7) 4.3 g/dL 3.4-5.0 [facility] plasma alkaline phosphatase measurement (enzymatic activity/volume)2019-09-24 22:42:00 Test Item Value Reference Range Interpretation Comments Alkaline Phosphatase (test code = 53 U/L 45-117 6768-6) [facility]/fhhf2171-90-77 22:42:00 Test Item Value Reference Range Interpretation Comments Lactic Acid Level (test code = 1.0 mmol/L 0.4-1.9 2524-7) [facility] creatine kinase measurement (enzymatic activity/volume)2019-09-24 22:42:00 Test Item Value Reference Range Interpretation Comments Total Creatine Kinase (test code = 413 U/L 26-192 2157-6) [facility] plasma total creatine kinase/creatine kinase MB isoenzyme activity jhtjt8350-04-82 22:42:00 Test Item Value Reference Range Interpretation Comments Creatine Kinase MB Relative Index (test 0.5 % 0-4 code = 2158-4) [facility] yukfpduld9898-27-94 22:42:00 Test Item Value Reference Range Interpretation Comments Troponin I (test code = 77904-4) 0.059 ng/mL 0.00-0.045 [facility] or plasma brain natriuretic peptide (BNP) measurement 2019-09-24 22:42:00 Test Item Value Reference Range Interpretation Comments B-Type Natriuretic Peptide (test 40 pg/mL 0.0-100 code = 49593-0) [facility] plasma thyrotropin measurement by detection limit <=0.005 miu/l (units/ntfrc5471-92-79 22:42:00 Test Item Value Reference Range Interpretation Comments Thyroid Stimulating Hormone 7.670 u[iU]/mL 0.358-3.74 (TSH) (test code = 75072-2) [facility] plasma procalcitonin measurement (mass/volume)2019-09-24 22:42:00 Test Item Value Reference Range Interpretation Comments Procalcitonin (test code = < 0.05 ng/mL 0.0-0.5 79544-9) [facility] blood prothrombin qqak4649-96-18 22:42:00 Test Item Value Reference Range Interpretation Comments Prothrombin Time (test code = 5964-2) 11.4 s 10.2-12.9 [facility]ILL BorreroINR in Platelet poor plasma by Coagulation yaerq5250-66-82 22:42:00 Test Item Value Reference Range Interpretation Comments Prothromb Time International Ratio 1.0 {INR} 0.9-1.1 (test code = 6301-6) [facility]Partial thromboplastin time (PTT) in platelet poor plasma 2019-09-24 22:42:00 Test Item Value Reference Range Interpretation Comments Activated Partial Thromboplast Time 31.7 s 25.1-36.5 (test code = 38453-5) [facility] HealthFibrin D-dimer FEU erlu5033-50-09 22:42:00 Test Item Value Reference Range Interpretation Comments D-Dimer (test code = 58122-5) 262 ng/mL{FEU} 0.00-500 [facility] HealthFibrin D-dimer FEU axsy9042-14-90 22:42:00 Test Item Value Reference Range Interpretation Comments D-Dimer (test code = 98308-3) 262 ng/mL{FEU} Serum or plasma magnesium measurement (mass/volume)2019-09-24 22:42:00 Test Item Value Reference Range Interpretation Comments Magnesium Level (test code = 2.3 mg/dL 98866-6) Serum or plasma total bilirubin measurement (mass/volume)2019-09-24 [...] (test code = 53 U/L 6768-6) Lactate ser/zihh6829-25-54 22:42:00 Test Item Value Reference Range Interpretation Comments Lactic Acid Level (test code = 1.0 mmol/L 2524-7) Serum or plasma creatine kinase measurement (enzymatic activity/volume) 2019-09-24 22:42:00 Test Item Value Reference Range Interpretation Comments Total Creatine Kinase (test code = 413 U/L 2157-6) Serum or plasma total creatine kinase/creatine kinase MB isoenzyme activity lhfky1293-30-27 22:42:00 Test Item Value Reference Range Interpretation Comments Creatine Kinase MB Relative Index (test 0.5 % code = 2158-4) Troponin I vegxwoars6624-39-47 22:42:00 Test Item Value Reference Range Interpretation Comments Troponin I (test code = 94973-5) 0.059 ng/mL Serum or plasma brain natriuretic peptide (BNP) bdudfjxoulh1600-04-22 22:42:00 Test Item Value Reference Range Interpretation Comments B-Type Natriuretic Peptide (test 40 pg/mL code = 60689-4) Serum or plasma thyrotropin measurement by detection limit <=0.005 miu/l (units/dtqzy7690-76-47 22:42:00 Test Item Value Reference Range Interpretation Comments Thyroid Stimulating Hormone 7.670 u[iU]/mL (TSH) (test code = 63935-5) Serum or plasma procalcitonin measurement (mass/volume)2019-09-24 22:42:00 Test Item Value Reference Range Interpretation Comments Procalcitonin (test code = < 0.05 ng/mL 87850-5) Whole blood prothrombin hmyz9746-15-74 22:42:00 Test Item Value Reference Range Interpretation Comments Prothrombin Time (test code = 5964-2) 11.4 s INR in Platelet poor plasma by Coagulation rglzc5816-39-08 22:42:00 Test Item Value Reference Range Interpretation Comments Prothromb Time International Ratio 1.0 {INR} (test code = 6301-6) Partial thromboplastin time (PTT) in platelet poor vndpmp9492-18-38 22:42:00 Test Item Value Reference Range Interpretation Comments Activated Partial Thromboplast Time 31.7 s (test code = 60161-1) Automated bacteria count in urine sediment (number/area)2019-09-24 22:33:00 Test Item Value Reference Range Interpretation Comments Urine Bacteria (test None /[HPF] See_Comment [Autom ated message] code = 90796-6) The system w [facility] generated this result transmitted ref erence range: 0-+/-. T he reference range was not used to int erpret this result as normal/abnormal . [facility] HealthAutomated mucus count in urine sediment (number/area)2019-09-24 22:33:00 Test Item Value Reference Range Interpretation Comments Urine Mucus (test +/- /[LPF] See_Comment [Automate d message] The code = 22888-3) system which generated this result tra nsmitted reference range : 0-1+. The reference r john was not used to int erpret this result as normal/abnormal . [facility] HealthAutomated urine yeast count (number/area)2019-09-24 22:33:00 Test Item Value Reference Range Interpretation Comments Urine Yeast (Budding) (test code Rare /[HPF] None Seen = 90945-8) [facility] comment [id number] 22:33:00 Test Item Value Reference Range Interpretation Comments Urine Culture Indicated Yes, Criteria Met (test code = 8264-4) [facility] HealthBacterial urine wxkeusc6119-49-37 22:33:00 Test Item Value Reference Range Interpretation Comments Urine Culture (test No growth in 18-24 code = 630-4) hours [facility] HealthAutomated urine color huacvnaphbupx5345-31-88 22:33:00 Test Item Value Reference Range Interpretation Comments Urine Color (test code = 73285-7) Yellow Yellow [facility] HealthClarity in Urine by Refractometry ojrivkebh5412-35-98 22:33:00 Test Item Value Reference Range Interpretation Comments Urine Appearance (test code = 56391-9) Clear Clear [facility] HealthUrine pH measurement by test khxye6421-04-24 22:33:00 Test Item Value Reference Range Interpretation Comments Urine pH (test code = 5803-2) 7.5 [pH] 5.0-8.0 [facility] HealthAutomated urine specific gravity by puxjllawbtgtr3280-64-32 22:33:00 Test Item Value Reference Range Interpretation Comments Urine Specific [place] (test code = 1.009 1.005-1.030 15343-3) [facility] HealthAutomated urine protein xhcxmoleyhz0336-67-46 22:33:00 Test Item Value Reference Range Interpretation Comments Urine Protein (test code = Negative mg/dL Negative 70178392) [facility]Automated urine glucose zpaezbaua2007-76-75 22:33:00 Test Item Value Reference Range Interpretation Comments Urine Glucose (UA) (test code Negative mg/dL Negative = 83168-0) [facility] HealthUrine ketones detection by automated test gnzwy4708-51-08 22:33:00 Test Item Value Reference Range Interpretation Comments Urine Ketones (test code = Negative mg/dL Negative 81897-1) [facility] HealthUrine erythrocytes detection by automated ovawfu9275-84-07 22:33:00 Test Item Value Reference Range Interpretation Comments Urine Occult Blood (test code = Negative Negative 83538-7) [facility]Automated urine nitrite gjlakctwzhv3895-47-09 22:33:00 Test Item Value Reference Range Interpretation Comments Urine Nitrite (test code = 54397-6) Negative Negative [facility] HealthUrine total bilirubin detection by automated test ezmyg3070-63-02 22:33:00 Test Item Value Reference Range Interpretation Comments Urine Bilirubin (test code = Negative Negative 93248-4) [facility]Automated urine urobilinogen qnqxffcyigl1039-02-49 22:33:00 Test Item Value Reference Range Interpretation Comments Urine Urobilinogen (test code = Normal mg/dL Normal 96140238) [facility] HealthUrine leukocytes detection by automated okbtdq1570-00-71 22:33:00 Test Item Value Reference Range Interpretation Comments Urine Leukocyte Esterase (test 250 {Marianna}/uL Negative code = 91905-5) [facility] HealthAutomated erythrocytes count in urine sediment (number/area) 2019-09-24 22:33:00 Test Item Value Reference Range Interpretation Comments Urine RBC (test code = 29288-0) 0-2 /[HPF] 0-2 [facility] HealthAutomated leukocytes count in urine sediment (number/area) 2019-09-24 22:33:00 Test Item Value Reference Range Interpretation Comments Urine WBC (test code = 07393-6) 10-20 /[HPF] 0-2 [facility] ChapatizAutomated squamous epithelial cells count in urine sediment (number/area)2019-09-24 22:33:00 Test Item Value Reference Range Interpretation Comments Urine Squamous Rare /[LPF] See_Comment [Automated m essage] Epithelial Cells The system which (test code = 90231-1) genera danielle this result transmitted ref erence range: 0 - 1+. The reference range was not used to int erpret this result as normal/abnormal . [facility] HealthAutomated urine sediment crystal count (number/area)2019-09-24 22:33:00 Test Item Value Reference Range Interpretation Comments Urine Other Crystals (test +/- Rare /[LPF] None Seen code = 27516-2) [facility]atizAutomated urine color yzmdgezwghrip2481-24-27 22:33:00 Test Item Value Reference Range Interpretation Comments Urine Color (test code = 25662-3) Yellow Clarity in Urine by Refractometry nutpotnta9114-33-31 22:33:00 Test Item Value Reference Range Interpretation Comments Urine Appearance (test code = 27945-5) Clear Urine pH measurement by test qwavq0040-61-57 22:33:00 Test Item Value Reference Range Interpretation Comments Urine pH (test code = 5803-2) 7.5 [pH] Automated urine specific gravity by wysusluiwrcft9769-56-34 22:33:00 Test Item Value Reference Range Interpretation Comments Urine Specific [place] (test code = 1.009 04835-6) Automated urine protein gakgfocykmo2656-96-66 22:33:00 Test Item Value Reference Range Interpretation Comments Urine Protein (test code = Negative mg/dL 96133482) Automated urine glucose nfrzpunoh7684-36-22 22:33:00 Test Item Value Reference Range Interpretation Comments Urine Glucose (UA) (test code Negative mg/dL = 82060-1) Urine ketones detection by automated test ysbco8060-44-18 22:33:00 Test Item Value Reference Range Interpretation Comments Urine Ketones (test code = Negative mg/dL 10910-9) Urine erythrocytes detection by automated mqbodw9135-93-22 22:33:00 Test Item Value Reference Range Interpretation Comments Urine Occult Blood (test code = Negative 36313-6) Automated urine nitrite wtzriexdtno0381-43-71 22:33:00 Test Item Value Reference Range Interpretation Comments Urine Nitrite (test code = 46077-7) Negative Urine total bilirubin detection by automated test tmbpv7025-01-16 22:33:00 Test Item Value Reference Range Interpretation Comments Urine Bilirubin (test code = Negative 76059-6) Automated urine urobilinogen yzvgsvxmliv0820-65-86 22:33:00 Test Item Value Reference Range Interpretation Comments Urine Urobilinogen (test code = Normal mg/dL 83748564) Urine leukocytes detection by automated ntzkgo2924-98-70 22:33:00 Test Item Value Reference Range Interpretation Comments Urine Leukocyte Esterase (test 250 {Marianna}/uL code = 15144-5) Automated erythrocytes count in urine sediment (number/area)2019-09-24 22:33:00 Test Item Value Reference Range Interpretation Comments Urine RBC (test code = 45142-2) 0-2 /[HPF] Automated leukocytes count in urine sediment (number/area)2019-09-24 22:33:00 Test Item Value Reference Range Interpretation Comments Urine WBC (test code = 55268-7) 10-20 /[HPF] Automated squamous epithelial cells count in urine sediment (number/area) 2019-09-24 22:33:00 Test Item Value Reference Range Interpretation Comments Urine Squamous Epithelial Cells Rare /[LPF] (test code = 75296-1) Automated urine sediment crystal count (number/area)2019-09-24 22:33:00 Test Item Value Reference Range Interpretation Comments Urine Other Crystals (test +/- Rare /[LPF] code = 24834-5) Automated bacteria count in urine sediment (number/area)2019-09-24 22:33:00 Test Item Value Reference Range Interpretation Comments Urine Bacteria (test code = None /[HPF] 22118-4) Automated mucus count in urine sediment (number/area)2019-09-24 22:33:00 Test Item Value Reference Range Interpretation Comments Urine Mucus (test code = 20942-0) +/- /[LPF] Automated urine yeast count (number/area)2019-09-24 22:33:00 Test Item Value Reference Range Interpretation Comments Urine Yeast (Budding) (test code Rare /[HPF] = 51388-1) Service comment 22:33:00 Test Item Value Reference Range Interpretation Comments Urine Culture Indicated Yes, Criteria Met (test code = 8264-4) Bacterial urine [id number] 22:33:00 Test Item Value Reference Range Interpretation Comments Urine Culture (test No growth in 18-24 code = 630-4) hours BASIC METABOLIC [id number] 02:06:00 Test Item Value Reference Range Interpretation [...] CALCIUM (test code = MG/DL 8.7-9.7 CA) [id number] 02:06:00 Test Item Value Reference Range Interpretation Comments MAGNESIUM (test code = MAG) MG/DL 1.6-2.3 BASIC METABOLIC [id number] 02:06:00 Test Item Value Reference Range Interpretation [...] CALCIUM (test code = MG/DL 8.7-9.7 CA) [id number] 02:06:00 Test Item Value Reference Range Interpretation Comments MAGNESIUM (test code = MAG) MG/DL 1.6-2.3 BASIC METABOLIC [id number] 02:06:00 Test Item Value Reference Range Interpretation [...] code = 10.3 MG/DL 8.4-10.2 H CA) [id number] 02:06:00 Test Item Value Reference Range Interpretation Comments MAGNESIUM (test code = MAG) MG/DL 1.6-2.3 BASIC METABOLIC [id number] 02:06:00 Test Item Value Reference Range Interpretation [...] code = 10.3 MG/DL 8.4-10.2 H CA) [id number] 02:06:00 Test Item Value Reference Range Interpretation Comments MAGNESIUM (test code = MAG) 1.7 MG/DL 1.6-2.3 BASIC METABOLIC [id number] 02:03:00 Test Item Value Reference Range Interpretation [...] CALCIUM (test code = CA) MG/DL 8.7-9.7 [id number] 02:03:00 Test Item Value Reference Range Interpretation Comments MAGNESIUM (test code = MAG) MG/DL 1.6-2.3 CBC W/AUTO [id number] 01:51:00 Test Item Value Reference Range Interpretation [...] K/mm3 0.0-0.1 N NRBC#) - XR CHEST [id number] 11:06:00 Patient Name: DEBI GARRETT Unit No: [id number] EXAMS: CPT CODE: [id number] XR CHEST 1V 27351 Site ID: [id number] HISTORY: Pneumothorax COMPARISON: Chest [...] Laith Salcido MD CC: Poli Aaron; Abdulaziz Knutsonologist: Willie Santana (RT) Transcrpt Date/Tm/Trnsp: 08/10/2019 (9385) PritiAJP6 Orig Print D/T: S: 08/10/2019 (1477) [facility] NAME: DEBI GARRETT [address] [place] PHYS: [place] [address] : 1935 AGE: 84 SEX: F LOC: Z.SI05 A PHONE #: [phone] EXAM DATE: 08/10/2019 STATUS: ADM IN FAX #: [phone] RADIOLOGY NO: PAGE 1 Signed ReportBASIC METABOLIC [id number] 05:07:00 Test Item Value Reference Range Interpretation [...] code = 10.6 MG/DL 8.4-10.2 H CA) [id number] 05:07:00 Test Item Value Reference Range Interpretation Comments PHOSPHOROUS (test code = PHOS) 3.3 MG/DL 2.5-4.5 N [id number] 05:07:00 Test Item Value Reference Range Interpretation Comments MAGNESIUM (test code = MAG) 2.2 MG/DL 1.6-2.3 BASIC METABOLIC [id number] 05:04:00 Test Item Value Reference Range Interpretation [...] CALCIUM (test code = MG/DL 8.7-9.7 CA) [id number] 05:04:00 Test Item Value Reference Range Interpretation Comments PHOSPHOROUS (test code = PHOS) MG/DL 2.5-4.5 [id number] 05:04:00 Test Item Value Reference Range Interpretation Comments MAGNESIUM (test code = MAG) MG/DL 1.6-2.3 BASIC METABOLIC [id number] 05:01:00 Test Item Value Reference Range Interpretation [...] CALCIUM (test code = CA) MG/DL 8.7-9.7 [id number] 05:01:00 Test Item Value Reference Range Interpretation Comments PHOSPHOROUS (test code = PHOS) MG/DL 2.5-4.5 [id number] 05:01:00 Test Item Value Reference Range Interpretation Comments MAGNESIUM (test code = MAG) MG/DL 1.6-2.3 CBC W/AUTO [id number] 04:48:00 Test Item Value Reference Range Interpretation [...] 0.00 K/mm3 0.0-0.1 N NRBC#) BASIC METABOLIC [id number] 23:31:00 Test Item Value Reference Range Interpretation [...] code = 10.1 MG/DL 8.4-10.2 N CA) [id number] 23:31:00 Test Item Value Reference Range Interpretation Comments MAGNESIUM (test code = MAG) 1.8 MG/DL 1.6-2.3 N BASIC METABOLIC [id number] 23:28:00 Test Item Value Reference Range Interpretation [...] CALCIUM (test code = MG/DL 8.7-9.7 CA) [id number] 23:28:00 Test Item Value Reference Range Interpretation Comments MAGNESIUM (test code = MAG) MG/DL 1.6-2.3 BASIC METABOLIC [id number] 23:25:00 Test Item Value Reference Range Interpretation [...] CALCIUM (test code = CA) MG/DL 8.7-9.7 [id number] 23:25:00 Test Item Value Reference Range Interpretation Comments MAGNESIUM (test code = MAG) MG/DL 1.6-2.3 BASIC METABOLIC [id number] 22:21:00 Test Item Value Reference Range Interpretation [...] code = 9.3 MG/DL 8.4-10.2 N CA) [id number] 22:21:00 Test Item Value Reference Range Interpretation Comments MAGNESIUM (test code = MAG) 1.6 MG/DL 1.6-2.3 N BASIC METABOLIC [id number] 21:36:00 Test Item Value Reference Range Interpretation [...] code = CA) 9.3 MG/DL 8.4-10.2 N [id number] 21:36:00 Test Item Value Reference Range Interpretation Comments MAGNESIUM (test code = MAG) 1.6 MG/DL 1.6-2.3 N BASIC METABOLIC [id number] 21:35:00 Test Item Value Reference Range Interpretation [...] CALCIUM (test code = CA) MG/DL 8.7-9.7 [id number] 21:35:00 Test Item Value Reference Range Interpretation Comments MAGNESIUM (test code = MAG) MG/DL 1.6-2.3 CBC W/AUTO [id number] 21:25:00 Test Item Value Reference Range Interpretation [...] 0.0-0.1 N NRBC#) - MRI BRAIN W/O [id number] 11:43:00 Patient Name: DEBI GARRETT Unit No: [id number] EXAMS: CPT CODE: [id number] MRI BRAIN W/O CONTRAST 05487 CLINICAL INFORMATION: Ataxia. Right internal carotid artery [...] t.SDR.AGV Orig Print D/T: S: 08/09/2019 (1146) [facility] NAME: DEBI GARRETT [address] [place] PHYS: [place] [address] : 1935 AGE: 84 SEX: F LOC: Z.SI05 A PHONE #: [phone] EXAM DATE: 08/09/2019 STATUS: ADM IN FAX #: [phone] RADIOLOGY NO: PAGE 1 Signed ReportURINALYSIS [id number] 22:47:00 Test Item Value Reference Range Interpretation [...] UACULT) Criteria SOURCE OF URINE: STRAIGHT CATHETERURINALYSIS [id number] 22:45:00 Test Item Value Reference Range Interpretation [...] UACULT) SOURCE OF URINE: STRAIGHT CATHETERBASIC METABOLIC [id number] 13:12:00 Test Item Value Reference Range Interpretation [...] code = 9.8 MG/DL 8.4-10.2 N CA) [id number] 13:12:00 Test Item Value Reference Range Interpretation Comments PHOSPHOROUS (test code = PHOS) 2.6 MG/DL 2.5-4.5 N [id number] 13:12:00 Test Item Value Reference Range Interpretation Comments MAGNESIUM (test code = MAG) 2.3 MG/DL 1.6-2.3 N T3,T4 [id number] 13:12:00 Test Item Value Reference Range Interpretation Comments T3 UPTAKE (test code = T3UP) 33.3 % UP 23.5-40.5 N T4 (THYROXINE) (test code = T4) 13.10 UG/DL 5.53-11.0 H T7 (FREE THYROXINE INDEX) (test 4.4 1.2-4.3 H code = T7) THYROID STIMULATING [id number] 13:12:00 Test Item Value Reference Range Interpretation Comments THYROID STIMULATING 3.590 MIU/L 0.465-4.68 N Please b e aware that HORMONE (test code = bias re sults for TSH TSH) may occur forpa tient who are taking Biotin suppleme nts. T4 [id number] 12:43:00 Test Item Value Reference Range Interpretation Comments T4 FREE (test code = T4F) 2.1 NG/DL 0.78-2.19 N BASIC METABOLIC [id number] 12:41:00 Test Item Value Reference Range Interpretation [...] code = 9.8 MG/DL 8.4-10.2 N CA) [id number] 12:41:00 Test Item Value Reference Range Interpretation Comments PHOSPHOROUS (test code = PHOS) 2.6 MG/DL 2.5-4.5 N [id number] 12:41:00 Test Item Value Reference Range Interpretation Comments MAGNESIUM (test code = MAG) 2.3 MG/DL 1.6-2.3 N T3,T4 [id number] 12:41:00 Test Item Value Reference Range Interpretation Comments T3 UPTAKE (test code = T3UP) 33.3 % UP 23.5-40.5 N T4 (THYROXINE) (test code = T4) 13.10 UG/DL 5.53-11.0 H T7 (FREE THYROXINE INDEX) (test 4.4 1.2-4.3 H code = T7) THYROID STIMULATING [id number] 12:41:00 Test Item Value Reference Range Interpretation Comments THYROID STIMULATING HORMONE (test code MIU/L 0.465-4.68 = TSH) CBC W/AUTO [id number] 12:39:00 Test Item Value Reference Range Interpretation [...] 0.00 K/mm3 0.0-0.1 N NRBC#) BASIC METABOLIC [id number] 12:26:00 Test Item Value Reference Range Interpretation [...] code = 9.8 MG/DL 8.4-10.2 N CA) [id number] 12:26:00 Test Item Value Reference Range Interpretation Comments PHOSPHOROUS (test code = PHOS) 2.6 MG/DL 2.5-4.5 N [id number] 12:26:00 Test Item Value Reference Range Interpretation Comments MAGNESIUM (test code = MAG) 2.3 MG/DL 1.6-2.3 N T3,T4 [id number] 12:26:00 Test Item Value Reference Range Interpretation Comments T3 UPTAKE (test code = T3UP) % UP 23.5-40.5 T4 (THYROXINE) (test code = T4) UG/DL 5.53-11.0 T7 (FREE THYROXINE INDEX) (test code = 1.2-4.3 T7) THYROID STIMULATING [id number] 12:26:00 Test Item Value Reference Range Interpretation Comments THYROID STIMULATING HORMONE (test code MIU/L 0.465-4.68 = TSH) BASIC METABOLIC [id number] 12:25:00 Test Item Value Reference Range Interpretation [...] CALCIUM (test code = MG/DL 8.7-9.7 CA) [id number] 12:25:00 Test Item Value Reference Range Interpretation Comments PHOSPHOROUS (test code = PHOS) MG/DL 2.5-4.5 [id number] 12:25:00 Test Item Value Reference Range Interpretation Comments MAGNESIUM (test code = MAG) MG/DL 1.6-2.3 T3,T4 [id number] 12:25:00 Test Item Value Reference Range Interpretation Comments T3 UPTAKE (test code = T3UP) % UP 23.5-40.5 T4 (THYROXINE) (test code = T4) UG/DL 5.53-11.0 T7 (FREE THYROXINE INDEX) (test code = 1.2-4.3 T7) THYROID STIMULATING [id number] 12:25:00 Test Item Value Reference Range Interpretation Comments THYROID STIMULATING HORMONE (test code MIU/L 0.465-4.68 = TSH) BASIC METABOLIC [id number] 12:25:00 Test Item Value Reference Range Interpretation [...] CALCIUM (test code = MG/DL 8.7-9.7 CA) [id number] 12:25:00 Test Item Value Reference Range Interpretation Comments PHOSPHOROUS (test code = PHOS) MG/DL 2.5-4.5 [id number] 12:25:00 Test Item Value Reference Range Interpretation Comments MAGNESIUM (test code = MAG) MG/DL 1.6-2.3 T3,T4 [id number] 12:25:00 Test Item Value Reference Range Interpretation Comments T3 UPTAKE (test code = T3UP) % UP 23.5-40.5 T4 (THYROXINE) (test code = T4) UG/DL 5.53-11.0 T7 (FREE THYROXINE INDEX) (test code = 1.2-4.3 T7) THYROID STIMULATING [id number] 12:25:00 Test Item Value Reference Range Interpretation Comments THYROID STIMULATING HORMONE (test code MIU/L 0.465-4.68 = TSH) BASIC METABOLIC [id number] 12:25:00 Test Item Value Reference Range Interpretation [...] CALCIUM (test code = MG/DL 8.7-9.7 CA) [id number] 12:25:00 Test Item Value Reference Range Interpretation Comments PHOSPHOROUS (test code = PHOS) MG/DL 2.5-4.5 [id number] 12:25:00 Test Item Value Reference Range Interpretation Comments MAGNESIUM (test code = MAG) MG/DL 1.6-2.3 T3,T4 [id number] 12:25:00 Test Item Value Reference Range Interpretation Comments T3 UPTAKE (test code = T3UP) % UP 23.5-40.5 T4 (THYROXINE) (test code = T4) UG/DL 5.53-11.0 T7 (FREE THYROXINE INDEX) (test code = 1.2-4.3 T7) THYROID STIMULATING [id number] 12:25:00 Test Item Value Reference Range Interpretation Comments THYROID STIMULATING HORMONE (test code MIU/L 0.465-4.68 = TSH) BASIC METABOLIC [id number] 12:23:00 Test Item Value Reference Range Interpretation [...] CALCIUM (test code = CA) MG/DL 8.7-9.7 [id number] 12:23:00 Test Item Value Reference Range Interpretation Comments PHOSPHOROUS (test code = PHOS) MG/DL 2.5-4.5 [id number] 12:23:00 Test Item Value Reference Range Interpretation Comments MAGNESIUM (test code = MAG) MG/DL 1.6-2.3 T3,T4 [id number] 12:23:00 Test Item Value Reference Range Interpretation Comments T3 UPTAKE (test code = T3UP) % UP 23.5-40.5 T4 (THYROXINE) (test code = T4) UG/DL 5.53-11.0 T7 (FREE THYROXINE INDEX) (test code = 1.2-4.3 T7) THYROID STIMULATING [id number] 12:23:00 Test Item Value Reference Range Interpretation Comments THYROID STIMULATING HORMONE (test code MIU/L 0.465-4.68 = TSH) BASIC METABOLIC [id number] 12:22:00 Test Item Value Reference Range Interpretation [...] CALCIUM (test code = CA) MG/DL 8.7-9.7 [id number] 12:22:00 Test Item Value Reference Range Interpretation Comments PHOSPHOROUS (test code = PHOS) MG/DL 2.5-4.5 [id number] 12:22:00 Test Item Value Reference Range Interpretation Comments MAGNESIUM (test code = MAG) MG/DL 1.6-2.3 T3,T4 [id number] 12:22:00 Test Item Value Reference Range Interpretation Comments T3 UPTAKE (test code = T3UP) % UP 23.5-40.5 T4 (THYROXINE) (test code = T4) UG/DL 5.53-11.0 T7 (FREE THYROXINE INDEX) (test code = 1.2-4.3 T7) THYROID STIMULATING [id number] 12:22:00 Test Item Value Reference Range Interpretation Comments THYROID STIMULATING HORMONE (test code MIU/L 0.465-4.68 = TSH) - XR HIP W/PEL UNI 2+V [id number] 11:43:00 Patient Name: DEBI GARRETT Unit No: [id number] EXAMS: CPT CODE: [id number] XR HIP W/PEL UNI 2+[place] [address] EXAM: - XR HIP W/PEL UNI 2+V [...] the lower lumbar spine. IMPRESSION: No acute osseousabnormality. at 1143 Reported and signed by: Kathrin Guevara MD CC: Poli Aaron; Jana Acosta [employer]ST[employer] Technologist: Britney Myers RT (R) Transcrpt Date/Tm/Trnsp: 08/08/2019 (1143) t.TARSHA.KW9 Orig Print D/T: S: 08/08/2019 (0937) [facility] NAME: DEBI GARRETT [id number] [place] PHYS: DUSTY.Ric - [place] [address] : 1935 AGE: 84 SEX: F LOC: ZDARLYN A PHONE #: EXAM DATE: 08/08/2019 STATUS: ADM IN FAX #: [phone] RADIOLOGY NO: PAGE 1 Signed Report- CT HEAD/BRAIN W/O [id number] 11:40:00 Patient Name: DEBI GARRETT Unit No: [id number] EXAMS: CPT CODE: [id number] CT HEAD/BRAIN W/O CONT 65968 EXAMINATION: - CT HEAD/BRAIN W/O CONT. LOCATION: [...] Spaces: Unremarkable. Ventricular System: Unremarkable. Osseous Structures: Unremarkable.Visualized Paranasal Sinuses: Unremarkable. IMPRESSION: No acute intracranial abnormality nor hemorrhage. at 1140 Reported and signed by: Ever Finney CC: Poli Aaron; Jana Acosta [employer] Technologist: Filipe Perez, RT(R) CTDI: DLP: Trnscrpt: 08/08/2019 (1140) t.SDR.ANS4 [facility] NAME: DEBI GARRETT [address] [place] PHYS: [email or web address].01 [place] [address] : 1935 AGE: 84 SEX: F LOC: Z.SI05 A PHONE #: [phone] EXAM DATE: 08/08/2019 STATUS: ADM IN FAX #: [phone] #: D/C DT PAGE 1 Signed Report Patient Name: DEBI GARRETT Unit No: [id number] EXAMS: CPT CODE: [id number] CT HEAD/BRAIN W/O CONT 12079 (Continued) Orig Print D/T: S: 08/08/2019 (1143) [facility] NAME: DEBI GARRETT PHYS: DUSTY. - Karla,[place] [address] : 1935 AGE: 84 SEX: F LOC: Z.SI05 A PHONE #: [phone] EXAM DATE: 08/08/2019 STATUS: ADM IN FAX #: [phone] RAD #: D/C DT PAGE 2 Signed Report- XR CHEST [id number] 08:51:00 Patient Name: DEBI GARRETT Unit No: [id number] EXAMS: CPT CODE: [id number] XR CHEST 1V 08209 EXAM: - XR CHEST 1V Location code:B2 HISTORY: Follow-up pneumothorax COMPARISON: 08/07/2019 FINDINGS: Frontal view of the chest is submitted. Left subclavian CVC unchanged. There is a stable small left apical pneumothorax present. Stable cardiomediastinal silhouette and mild pulmonary vascular congestive changes noted bilaterally. Mild interval increase in parenchymal opacity at the left lung baseatelectasis or developing infiltrate. No large effusion or right-sided pneumothorax.No acute osseouspathology. IMPRESSION 1. No significant interval change in size of small left apical pneumothorax. 2. Mildly worsened left basilar atelectasis or developing infiltrate. at 0851 Reported and signed by: Kathrin Guevara MD CC: Poli Aaron; Jana Acosta [employer] Technologist: Octavio Lerner RT(R) Transcrpt Date/Tm/Trnsp: 08/08/2019 (0851) PritiKW9 Orig Print D/T: S: 08/08/2019 (0854) [facility] NAME: DEBI GARRETT [address] PHYS: ELIJAHLUCIAN.Ric - Karla,[place] [address] : 1935 AGE: 84 SEX: F LOC: RUDY Bullard PHONE #: [phone] EXAM DATE: 08/08/2019 STATUS:ADM IN FAX #: [phone] RADIOLOGY NO: PAGE 1 Signed Report ARTERY,[id number] 12:46:00 RUN DATE: 08/07/19 [facility] - LAB PAGE 1 RUN TIME: 1246 Specimen Inquiry RUN USER: INTERFACE PATIENT: DEBI GARRETT LOC: MYLES U #: [id number] AGE/SX: 84/F ROOM: [facility] RE08/06/19[facility] DR: Robi Schroeder MD : 37 BED: A DIS: STATUS: ADM IN TLOC: SPEC #: [id number] RECD: 08/06/19-124 STATUS: DOV ESPARZA #: [id number] KELLE: 08/06/[address] [facility] [address]: Robi Schroeder MD ENTERED: 08/06/19 SP TYPE: ARTERY, PL OTHR DR: Self Referred Mirella Francis MD, Patricia Q MD Pepper, Gregory S MDORDERED: DECAL, SURG PATH LVL 3, SURG PATH LVL 4 CODES: [id number] - PLAQUE, NOS Z60507 - ARTERY, NOS [id number] 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 ARTERY, NOS - RT CAROTID PLAQUE B. LYMPH NODE, NOS - RT CERVICAL LYMPH NODE CONTINUED ON NEXT PAGE --------- ---RUN DATE: 08/07/19 [facility] - LAB PAGE 2 RUN TIME: 1246 Specimen Inquiry RUN USER: INTERFACE SPEC #: [id number] PATIENT: DEBI GARRETT #[id number] (Continued) CLINICAL HISTORY S/P RIGHT CEA CPT CODES CPT CODE(S): 64643 , 93381 ,06441 , , , , FINAL DIAGNOSIS A. [...] 0.6 and 1 cm. The smaller two n odes are bisected, one inked and submitted as B1 and the largest node is serially sectioned and submitted as B2. /tc/nr MICROSCOPIC DESCRIPTION A. Right carotid plaque. Ovoid sclerotic nodule with dense stromal calcification. No atypical features. B. Right cervical lymph node. Benign lymph node with variable mild to moderate sinus histiocytosis and minimal paracortical reactive change. No atypical features. /chidi Signed SIGNATURE ON FILE Raffi Henderson/14/20 1246 END OF REPORT - XR CHEST [id number] 10:56:00 Patient Name: DEBI GARRETT Unit No: [id number] EXAMS: CPT CODE: [id number] XR CHEST 1V 57495 EXAMINATION: - XR CHEST 1V. LOCATION: B2. [...] apical pneumothorax. Interval development of left basilar opacities,likely representing atelectasis. Findings were personally discussed with Dr. Schroeder at 1056 hours on 08/07/2019. at 1056 Reported and signedby: Wendy Davidson MD CC: Poli Aaron Technologist: Damian Ingram (RT) (R) Transcrpt Date/Tm/Trnsp: 08/07/2019 (1056) t.SDR.PR7 Orig Print D/T: S: 08/07/2019 (1100) [facility] NAME: DEBI GARRETT [address] [place] PHYS: [place] [address] : 1935 AGE: 84 SEX: F LOC: Z.SI01 A PHONE #: [phone] EXAM DATE: 08/07/2019 STATUS: ADM INFAX #: [phone] RADIOLOGY NO: PAGE 1 Signed ReportBASIC METABOLIC [id number] 06:56:00 Test Item Value Reference Range Interpretation [...] CA) CBN DRAW LEFT TUBES FOR NURSE [id number] 06:56:00 Test Item Value Reference Range Interpretation Comments MAGNESIUM (test code = MAG) 1.8 MG/DL 1.6-2.3 N CBN DRAW LEFT TUBES FOR NURSE ROSIEBASIC METABOLIC [id number] 06:55:00 Test Item Value Reference Range Interpretation [...] CA) CBN DRAW LEFT TUBES FOR NURSE [id number] 06:55:00 Test Item Value Reference Range Interpretation Comments MAGNESIUM (test code = MAG) MG/DL 1.6-2.3 CBN DRAW LEFT TUBES FOR NURSE FELABASIC METABOLIC [id number] 06:53:00 Test Item Value Reference Range Interpretation [...] 8.7-9.7 CBN DRAW LEFT TUBES FOR NURSE [id number] 06:53:00 Test Item Value Reference Range Interpretation Comments MAGNESIUM (test code = MAG) MG/DL 1.6-2.3 CBN DRAW LEFT TUBES FOR NURSE FELACBC W/AUTO [id number] 06:42:00 Test Item Value Reference Range Interpretation [...] NRBC#) CBN DRAW LEFT TUBES FOR NURSE EAST RYEGATEBASI METABOLIC [id number] 13:33:00 Test Item Value Reference Range Interpretation [...] code = 10.0 MG/DL 8.4-10.2 N CA) [id number] 13:33:00 Test Item Value Reference Range Interpretation Comments MAGNESIUM (test code = MAG) 1.8 MG/DL 1.6-2.3 N BASIC METABOLIC [id number] 13:32:00 Test Item Value Reference Range Interpretation [...] CALCIUM (test code = MG/DL 8.7-9.7 CA) [id number] 13:32:00 Test Item Value Reference Range Interpretation Comments MAGNESIUM (test code = MAG) MG/DL 1.6-2.3 BASIC METABOLIC [id number] 13:30:00 Test Item Value Reference Range Interpretation [...] CALCIUM (test code = CA) MG/DL 8.7-9.7 [id number] 13:30:00 Test Item Value Reference Range Interpretation Comments MAGNESIUM (test code = MAG) MG/DL 1.6-2.3 BASIC METABOLIC [id number] 13:29:00 Test Item Value Reference Range Interpretation [...] CALCIUM (test code = CA) MG/DL 8.7-9.7 [id number] 13:29:00 Test Item Value Reference Range Interpretation Comments MAGNESIUM (test code = MAG) MG/DL 1.6-2.3 CBC W/AUTO [id number] 13:19:00 Test Item Value Reference Range Interpretation [...] K/mm3 0.0-0.1 N NRBC#) - XR CHEST [id number] 13:05:00 Patient Name: DEBI GARRETT Unit No: [id number] EXAMS: CPT CODE: [id number] XR CHEST 1V 58695 Site ID: [id number] HISTORY: Postoperative, right CEA COMPARISON: Chest x-ray July 29, 2019 FINDINGS: Subopt imal inspiratory effort, with mild pulmonary vascular crowding/engorgement. Heart size is normal. A right carotid region surgical drain and left subclavian line are in place. No pneumothorax. Osseous structures are unremarkable. IMPRESSION: Mild pulmonary vascular prominence which may reflect true vascular congestion or vascular crowding due to poor inspiratory effort at 1305 Reported and signed by: Laith Salcido MD CC: Poli Aaron Technologist: RT Sami(R) Transcrpt Date/Tm/Trnsp: 08/06/2019 (1305) [id number] Orig Print D/T: S: 08/06/2019 (1091) [facility] NAME: DEBI GARRETT [id number] [place] PHYS: [place] [address] : 1935 AGE: 84 SEX: F LOC: [id number].[id number] A PHONE #: [phone] EXAM DATE: 08/06/2019 STATUS: ADM IN FAX #: [phone] RADIOLOGY NO: PAGE 1 Signed ReportARTERIAL BLOOD [id number] 13:00:00 Test Item Value Reference Range Interpretation [...] code = 50 % COHBGFFIO2) Novel Coronavirus 2018 [id number] 08:07:00 Test Item Value Reference Range Interpretation Comments Novel Coronavirus 2018 Inhouse (test Negative Negative code = COVNONPUI) Novel Coronavirus 2018 [id number] 08:06:00 Test Item Value Reference Range Interpretation Comments Novel Coronavirus 2018 Inhouse (test Negative Negative code = COVNONPUI) HIV 12 AB [id number] 14:28:00 Test Item Value Reference Range Interpretation Comments HIV 1 2 COMBO AG/AB SCREEN AB/AG NON REACTIVE NONREACTIVE (test code = [id number]) BASIC METABOLIC [id number] 13:39:00 Test Item Value Reference Range Interpretation [...] 10.3 MG/DL 8.4-10.2 H CA) BASIC METABOLIC [id number] 13:38:00 Test Item Value Reference Range Interpretation [...] code = MG/DL 8.7-9.7 CA) BASIC METABOLIC [id number] 13:36:00 Test Item Value Reference Range Interpretation [...] code = CA) MG/DL 8.7-9.7 BASIC METABOLIC [id number] 13:35:00 Test Item Value Reference Range Interpretation [...] (test code = CA) MG/DL 8.7-9.7 PROTHROMBIN [id number] 13:32:00 Test Item Value Reference Range Interpretation [...] myocar dial infarction. 2.0 - 3.0 3. Viticulture Teacher al prosthesis hear t valves, recurre nt systemic emboli sm. 3.0 - 4.5 PTT [id number] 13:32:00 Test Item Value Reference Range Interpretation Comments PTT ACTIVATED (test code = APTT) 35.5 SECONDS 25.1-36.5 N CBC W/AUTO [id number] 13:23:00 Test Item Value Reference Range Interpretation [...] 0.0-0.1 N NRBC#) - XR CHEST 2 [id number] 13:16:00 Patient Name: TAMI,DEBI ENDER Unit No: [id number] EXAMS: CPT CODE: [id number] XR CHEST 2 V [id number] Site ID: [id number] HISTORY: Preoperative, right carotid endarterectomy FINDINGS: The lungs are clear and normally expanded. The heart and pulmonary vasculature is normal. Previous coronary artery stenting noted. Osseous structures are unremarkable. IMPRESSION: No acute cardiopulmonary finding at 1316 Reported and signed by: Laith Salcido MD CC:Poli Aaron Technologist: Britney Myers, RT (R) Transcrpt Date/Tm/Trnsp: 07/29/2019 (1316) [id number] Orig Print D/T: S: 07/29/2019 (8859) [facility] NAME: DEBI GARRETT [id number] [place] PHYS: [place] [address] : 1935 AGE: 84 SEX: F LOC: [facility] PHONE #: [phone] EXAM DATE: 07/29/2019 STATUS: PRE IN FAX #: [phone] RADIOLOGY NO: PAGE 1 Signed ReportBASIC METABOLIC [id number] 06:23:00 Test Item Value Reference Range Interpretation [...] LIPOPROTEIN LDL (test 106 MG/DL 0-99 H OPTIM AL.........<100 code = LDL) mg/dLNEAR OPTIMAL/ABOVE OPTIMAL........ .100-12 9 mg/dL BORDERL INE HIGH.........13 0-159 mg/dL HIGH.........16 0-189 mg/dL VERY HIGH.........>/ = 190 mg/dL [id number] 06:23:00 Test Item Value Reference Range Interpretation Comments MAGNESIUM (test code = MAG) 2.2 MG/DL 1.6-2.3 N PROTHROMBIN [id number] 06:16:00 Test Item Value Reference Range Interpretation [...] myocar dial infarction. 2.0 - 3.0 3. Viticulture Teacher al prosthesis hear t valves, recurre nt systemic emboli sm. 3.0 - 4.5 PTT [id number] 06:16:00 Test Item Value Reference Range Interpretation Comments PTT ACTIVATED (test code = APTT) 33.9 SECONDS 25.1-36.5 N BASIC METABOLIC [id number] 06:11:00 Test Item Value Reference Range Interpretation [...] LDL (test MG/DL 0-99 code = LDL) [id number] 06:11:00 Test Item Value Reference Range Interpretation Comments MAGNESIUM (test code = MAG) MG/DL 1.6-2.3 BASIC METABOLIC [id number] 06:11:00 Test Item Value Reference Range Interpretation [...] LDL (test MG/DL 0-99 code = LDL) [id number] 06:11:00 Test Item Value Reference Range Interpretation Comments MAGNESIUM (test code = MAG) 2.2 MG/DL 1.6-2.3 N BASIC METABOLIC [id number] 06:08:00 Test Item Value Reference Range Interpretation [...] LDL (test code = LDL) MG/DL 0-99 [id number] 06:08:00 Test Item Value Reference Range Interpretation Comments MAGNESIUM (test code = MAG) MG/DL 1.6-2.3 CBC W/AUTO [id number] 06:00:00 Test Item Value Reference Range Interpretation [...]
[2022-05-01 19:01] LABS: Absolute Lymphocytes (CBC) 1.3 K/uL (0.7-4.9); Hematocrit 40.1 % (36.0-45.0); Lymphocytes % 19.7 % (15.3-44.8); MCV 89.9 fL (80-100); MPV 8.6 fL (7.6-11.3); RBC Red Blood Cell Count 4.46 M/uL (3.86-4.86)
[2022-05-01 19:17] LABS: Potassium 3.2 mmol/L (3.5-5.1); Troponin High Sensitivity 9.8 pg/mL (<58.9)
--- NOTE | 2022-05-01 19:43 | RAD REPORT ---
EXAM DESCRIPTION: Omero Single View05/01/2022 7:34 pm CLINICAL HISTORY: Chest pain COMPARISON: 2020 FINDINGS: The lungs appear clear of acute infiltrate. The heart is normal size IMPRESSION: No acute abnormalities displayed
[2022-05-01] MEDS ORDERED: METOPROLOL XL 50 MG TAB PO ONE (20:55)
[2022-05-01] MEDS ORDERED: cloNIDine HCL 0.1 MG TAB ONE (20:56)
[2022-05-01] MEDS ORDERED: POTASSIUM 25 MEQ EFFERV TAB ONE (20:56)
[2022-05-01] MEDS ORDERED: AMLODIPINE 5 MG TAB ONE (20:56)
[2022-05-01] MEDS ORDERED: METOPROLOL TARTRATE 5 MG/5 ML INJ IV ONE (20:56)
--- NOTE | 2022-05-01 21:21 | EDPHYS ---
Physician Documentation [facility] Name: Leyda Ramos Age: 87 yrs Sex: Female : 1935 Arrival Date: 05/01/2022 Time: 18:31 Bed 5 Private MD: ED Physician Jim Fonseca HPI: 05/01 19:55 This 87 yrs old Female presents to ER via Ambulatory with complaints of High kaiser Blood Pressure, Palpitations. 19:55 The patient has elevated blood pressure and discovered this at home. Onset: The kaiser symptoms/episode began/occurred 2 day(s) ago. Modifying factors: The symptoms are aggravated by activity, The symptoms are alleviated by remaining still. Associated signs and symptoms: The patient has no apparent associated signs or symptoms. Severity of symptoms: At its worst the blood pressure was mild, in the emergency department the blood pressure is unchanged. The patient has not experienced similar symptoms in the past. Historical: - Allergies: 18:48 Augmentin; ph 18:48 Bactrim; ph 18:48 Hydrocodone-Acetaminophen; ph 18:48 PENICILLINS; ph - Home Meds: 18:48 aspirin 81 mg Oral chew [Active]; carvedilol 3.125 mg Oral tab 1 tab 2 times per day ph [Active]; Cozaar 100 mg Oral tab 1 tab once daily [Active]; levothyroxine 50 mcg tab 1 tab once daily [Active]; Lipitor Oral [Active]; losartan Oral [Active]; omega-3 acid ethyl esters 1 gram Oral cap 2 caps 2 times per day [Active]; Plavix Oral [Active]; Tricor Oral [Active]; - PMHx: 18:48 Chronic pain; pelvic; GALLSTONES; High Cholesterol; Hypertension; Hypothyroidism; ph leaking heart valve; - Immunization history:: Adult Immunizations up to date. - Social history:: Smoking status: Patient denies any tobacco usage or history of. - Family history:: not pertinent. ROS: 19:55 Constitutional: Negative for fever, chills, and weight loss, Eyes: Negative for injury, kaiser pain, redness, and discharge, ENT: Negative for injury, pain, and discharge, Neck: Negative for injury, pain, and swelling, Cardiovascular: Negative for chest pain, palpitations, and edema, Respiratory: Negative for shortness of breath, cough, wheezing, and pleuritic chest pain, Abdomen/GI: Negative for abdominal pain, nausea, vomiting, diarrhea, and constipation, Back: Negative for injury and pain, : Negative for injury, bleeding, discharge, and swelling, MS/Extremity: Negative for injury and deformity, Skin: Negative for injury, rash, and discoloration, Psych: Negative for depression, anxiety, suicide ideation, homicidal ideation, and hallucinations, Allergy/Immunology: Negative for hives, rash, and allergies, Endocrine: Negative for neck swelling, polydipsia, polyuria, polyphagia, and marked weight changes, Hematologic/Lymphatic: Negative for swollen nodes, abnormal bleeding, and unusual bruising. 19:55 Neuro: Positive for headache. Exam: 19:55 Constitutional: This is a well developed, well nourished patient who is awake, alert, kaiser and in no acute distress. Head/Face: Normocephalic, atraumatic. Eyes: Pupils equal round and reactive to light, extra-ocular motions intact. Lids and lashes normal. Conjunctiva and sclera are non-icteric and not injected. Cornea within normal limits. Periorbital areas with no swelling, redness, or edema. ENT: Nares patent. No nasal discharge, no septal abnormalities noted. Tympanic membranes are normal and external auditory canals are clear. Oropharynx with no redness, swelling, or masses, exudates, or evidence of obstruction, uvula midline. Mucous membranes moist. Neck: Trachea midline, no thyromegaly or masses palpated, and no cervical lymphadenopathy. Supple, full range of motion without nuchal rigidity, or vertebral point tenderness. No Meningismus. Chest/axilla: Normal chest wall appearance and motion. Nontender with no deformity. No lesions are appreciated. Cardiovascular: Regular rate and rhythm with a normal S1 and S2. No gallops, murmurs, or rubs. Normal PMI, no JVD. No pulse deficits. Respiratory: Lungs have equal breath sounds bilaterally, clear to auscultation and percussion. No rales, rhonchi or wheezes noted. No increased work of breathing, no retractions or nasal flaring. Abdomen/GI: Soft, non-tender, with normal bowel sounds. No distension or tympany. No guarding or rebound. No evidence of tenderness throughout. Back: No spinal tenderness. No costovertebral tenderness. Full range of motion. Skin: Warm, dry with normal turgor. Normal color with no rashes, no lesions, and no evidence of cellulitis. MS/ Extremity: Pulses equal, no cyanosis. Neurovascular intact. Full, normal range of motion. Neuro: Awake and alert, GCS 15, oriented to person, place, time, and situation. Cranial nerves II-XII grossly intact. Motor strength 5/5 in all extremities. Sensory grossly intact. Cerebellar exam normal. Normal gait. Psych: Awake, alert, with orientation to person, place and time. Behavior, mood, and affect are within normal limits. 20:19 ECG was reviewed by the Attending Physician. [facility] Vital Signs: 18:45 BP 227 / 87; Pulse 69; Resp 18; Temp 97.0; Pulse Ox 96% on R/A; Weight 50.8 kg; Height ph 5 ft. 0 in. (152.40 cm); 20:53 BP 227 / 102; Pulse 72; Resp 14; Pulse Ox 98% on R/A; lg3 21:09 BP 210 / 79; Pulse 67; Resp 14; Pulse Ox 96% on R/A; lg3 21:27 BP 204 / 82; Pulse 57; Resp 15; Pulse Ox 96% on R/A; lg3 18:45 Body Mass Index 21.87 (50.80 kg, 152.40 cm) ph NIH Stroke Scale Scores: 19:55 NIHSS Score: 0 [facility] MDM: 19:05 Patient medically screened. kaiser 20:14 Differential diagnosis: hypertensive crisis, Malignant HTN. Data reviewed: vital signs, [facility] nurses notes, lab test result(s), EKG, radiologic studies, plain films. Consideration of Admission/Observation Patient was admitted/placed on observation. Escalation of care including admission/observation considered. I considered the following discharge prescriptions or medication management in the emergency department Medications were administered in the Emergency Department. See MAR. Test considered but Not performed: CT: ct head. Care significantly affected by the following chronic conditions: Hypertension, chronic pain, hypothyroid. 05/01 18:46 Order name: Basic Metabolic Panel; Complete Time: 19:49 ld1 05/01 18:46 Order name: CBC with Diff; Complete Time: 19:49 ld1 05/01 18:46 Order name: Troponin HS; Complete Time: 19:49 ld1 05/01 18:46 Order name: XRAY Chest (1 view); Complete Time: 19:49 ld1 05/01 18:46 Order name: EKG; Complete Time: 18:46 ld05/01 18:46 Order name: Cardiac monitoring; Complete Time: 18:46 ld05/01 18:46 Order name: EKG - Nurse/Tech; Complete Time: 18:46 ld05/01 18:46 Order name: IV Saline Lock; Complete Time: 18:52 ld05/01 18:46 Order name: Labs collected and sent; Complete Time: 18:52 ld05/01 18:46 Order name: O2 Per Protocol; Complete Time: 18:46 ld05/01 18:46 Order name: O2 Sat Monitoring; Complete Time: 18:46 ld1 EC:19 Rate is 63 beats/min. QRS Lan[place] is Normal. ND interval is normal. QRS interval is kaiser normal. QT interval is normal. No Q waves. T waves are Normal. No ST changes noted. Clinical impression: LVH and No evidence of ischemia. Interpreted by me. Reviewed by me. Administered Medications: 21:10 Drug: Lopressor (metoprolol) 2.5 mg Route: IVP; Site: right antecubital; lg3 21:31 Follow up: Response: No adverse reaction lg3 21:10 Drug: Norvasc (amlodipine) 5 mg Route: PO; lg3 21:31 Follow up: Response: No adverse reaction lg3 21:10 Drug: Potassium Effervescent Tablet 25 mEq Route: PO; lg3 21:28 Follow up: Response: No adverse reaction lg3 21:11 Drug: cloNIDine 0.1 mg Route: PO; lg3 21:31 Follow up: Response: No adverse reaction; RASS: Alert and Calm (0) lg3 21:11 Drug: ToPROL XL (metoprolol SUCCINATE) 25 mg Route: PO; lg3 21:31 Follow up: Response: No adverse reaction lg3 21:26 Not Given (Hemodynamic Parameters): Lopressor (metoprolol) 2.5 mg IVP once; Hold for lg3 SBP <100 or HR <60. Disposition Summary: 05/01/22 21:21 Discharge Ordered Location: Home kaiser Problem: new kaiser Symptoms: have improved kaiser Condition: Stable kaiser Diagnosis - Essential (primary) hypertension kaiser - Hypokalemia kaiser Followup: kaiser - With: Private Physician - When: 2 - 3 days - Reason: Recheck today's complaints, Continuance of care, Re-evaluation by your physician Followup: kaiser - With: - When: 1 - 2 days - Reason: Recheck today's complaints, Continuance of care, Re-evaluation by your physician Discharge Instructions: - Discharge Summary Sheet kaiser - Hypertension, Adult kaiser - Hypertension, Adult, Mhnz-ax-Gllx kaiser - How to Take Your Blood Pressure, Qpcd-pt-Dumv kaiser - Managing Your Hypertension [facility] Forms: - Medication Reconciliation Form kaiser - Thank You Letter kaiser - Antibiotic Education kaiser - Prescription Opioid Use kaiser Prescriptions: - losartan 100 mg Oral tablet - take 1 tablet by ORAL route once daily; 30 tablet; Refills: 0, Product kaiser Selection Permitted - Norvasc 5 mg Oral Tablet - take 1 tablet by ORAL route once daily; 20 tablet; Refills: 0, Product kaiser Selection Permitted - Toprol XL 25 mg Oral Tablet - take 1 tablet by ORAL route once daily; 20 tablet; Refills: 0, Product kaiser Selection Permitted NIH Stroke Scale - NIH Stroke Score Date: 05/01/2022 Time: 19:55 Total Score = 0 1a. Level of Consciousness (LOC) - 0(Alert) 1b. Level of Consciousness (LOC) (Month \T\ Age) - 0(Both) 1c. LOC Commands (Open \T\ Closes Eyes/Manager Epic) - 0(Both) 2. Best Gaze (Lateral Gaze Paresis) - 0(Normal) 3. Visual Field Loss - 0(No visual loss) 4. Facial Palsy - 0(Normal) 5a. Left Arm: Motor (10-second hold) - 0(No drift) 5b. Right Arm: Motor (10-second hold) - 0(No drift) 6a. Left Leg: Motor (5-second hold - always test supine) - 0(No drift) 6b. Right Leg: Motor (5-second hold - always test supine) - 0(No drift) 7. Limb Ataxia (finger/nose \T\ heel/parkinson - test with eyes open) - 0(Absent) 8. Sensory Loss (pinprick arms/legs/face) - 0(Normal) 9. Best Language: Aphasia (description/naming/reading) - 0(No aphasia) 10. Dysarthria (speech clarity - read or repeat words) - 0(Normal) 11. Extinction and Inattention (visual/tactile/auditory/spatial/personal) - 0(No abnormality) Initials: [facility] Signatures: Dispatcher [employer] Jim Kuo MD MD cha Hall, Patricia RN RN Marely Holly, RN RN lg3 Arabella Bansal RN RN ld1
--- NOTE | 2022-05-01 21:21 | ER ---
Nurse's Notes [facility] Name: Leyda Ramos Age: 87 yrs Sex: Female : 1935 Arrival Date: 05/01/2022 Time: 18:31 Bed 5 Private MD: Diagnosis: Essential (primary) hypertension;Hypokalemia Presentation: 05/01 18:45 Chief complaint: Patient states: High BP at home w/ systolic in 200s, also reports ph palpitations, denies chest pain or SOB, friend at bedside states that she has been under stress lately d/t recent loss of her daughter. Coronavirus screen: Vaccine status: Patient reports receiving the 2nd dose of the covid vaccine. Ebola Screen: No symptoms or risks identified at this time. Initial Sepsis Screen: Does the patient meet any 2 criteria? No. Patient's initial sepsis screen is negative. Does the patient have a suspected source of infection? No. Patient's initial sepsis screen is negative. Risk Assessment: Do you want to hurt yourself or someone else? Patient reports no desire to harm self or others. Onset of symptoms was May 01, 2022. 18:45 Method Of Arrival: Ambulatory ph 18:45 Acuity: EVELIO 2 ph Historical: - Allergies: 18:48 Augmentin; ph 18:48 Bactrim; ph 18:48 Hydrocodone-Acetaminophen; ph 18:48 PENICILLINS; ph - Home Meds: 18:48 aspirin 81 mg Oral chew [Active]; carvedilol 3.125 mg Oral tab 1 tab 2 times per day ph [Active]; Cozaar 100 mg Oral tab 1 tab once daily [Active]; levothyroxine 50 mcg tab 1 tab once daily [Active]; Lipitor Oral [Active]; losartan Oral [Active]; omega-3 acid ethyl esters 1 gram Oral cap 2 caps 2 times per day [Active]; Plavix Oral [Active]; Tricor Oral [Active]; - PMHx: 18:48 Chronic pain; pelvic; GALLSTONES; High Cholesterol; Hypertension; Hypothyroidism; ph leaking heart valve; - Immunization history:: Adult Immunizations up to date. - Social history:: Smoking status: Patient denies any tobacco usage or history of. - Family history:: not pertinent. Screenin:11 [facility] ED Fall Risk Assessment (Adult) History of falling in the last 3 months, lg3 including since admission No falls in past 3 months (0 pts). Abuse screen: Denies threats or abuse. Denies injuries from another. Nutritional screening: No deficits noted. Tuberculosis screening: No symptoms or risk factors identified. Assessment: 21:11 General: Appears in no apparent distress. comfortable, Behavior is calm, cooperative. lg3 Pain: Denies pain. Neuro: No deficits noted. Renner Agitation-Sedation Scale (RASS): 0 - Alert and Calm Level of Consciousness is awake, alert, obeys commands, Oriented to person, place, time, situation. Cardiovascular: Reports palpitations, Capillary refill < 3 seconds Clubbing of nail beds is absent JVD is absent Patient's skin is warm and dry. Respiratory: No deficits noted. Airway is patent Trachea midline Respiratory effort is even, unlabored, Respiratory pattern is regular, symmetrical. GI: No deficits noted. No signs and/or symptoms were reported involving the gastrointestinal system. Abdomen is flat, non-distended. : No deficits noted. No signs and/or symptoms were reported regarding the genitourinary system. EENT: No deficits noted. No signs and/or symptoms were reported regarding the EENT system. Derm: No deficits noted. No signs and/or symptoms reported regarding the dermatologic system. Skin is intact, is thin, Skin is dry, Skin is normal, Skin temperature is warm. Musculoskeletal: No deficits noted. No signs and/or symptoms reported regarding the musculoskeletal system. Circulation, motion, and sensation intact. Range of motion: intact in all extremities. Vital Signs: 18:45 BP 227 / 87; Pulse 69; Resp 18; Temp 97.0; Pulse Ox 96% on R/A; Weight 50.8 kg; Height ph 5 ft. 0 in. (152.40 cm); 20:53 BP 227 / 102; Pulse 72; Resp 14; Pulse Ox 98% on R/A; lg3 21:09 BP 210 / 79; Pulse 67; Resp 14; Pulse Ox 96% on R/A; lg3 21:27 BP 204 / 82; Pulse 57; Resp 15; Pulse Ox 96% on R/A; lg3 18:45 Body Mass Index 21.87 (50.80 kg, 152.40 cm) ph NIH Stroke Scale Scores: 19:55 NIHSS Score: 0 [facility] ED Course: 18:31 Patient arrived in ED. rg4 18:48 Triage completed. ph 18:49 Arm band placed on. ph 18:52 Inserted saline lock: 20 gauge in right upper arm, using aseptic technique. Blood ld1 collected. 19:05 Jim Fonseca MD is Attending Physician. [facility] 19:36 XRAY Chest (1 view) In Process Unspecified. EDMS 21:11 Patient has correct armband on for positive identification. Placed in gown. Bed in low lg3 position. Call light in reach. Side rails up X 1. Client placed on continuous cardiac and pulse oximetry monitoring. NIBP monitoring applied. napper tender on. Door closed. Noise minimized. Warm blanket given. Family accompanied patient. 21:21 Wilbur Wilson MD is Referral Physician. [facility] 21:31 No provider procedures requiring assistance completed. lg3 21:56 IV discontinued, intact, bleeding controlled, No redness/swelling at site. Pressure lg3 dressing applied. Administered Medications: 21:10 Drug: Lopressor (metoprolol) 2.5 mg Route: IVP; Site: right antecubital; lg3 21:31 Follow up: Response: No adverse reaction lg3 21:10 Drug: Norvasc (amlodipine) 5 mg Route: PO; lg3 21:31 Follow up: Response: No adverse reaction lg3 21:10 Drug: Potassium Effervescent Tablet 25 mEq Route: PO; lg3 21:28 Follow up: Response: No adverse reaction lg3 21:11 Drug: cloNIDine 0.1 mg Route: PO; lg3 21:31 Follow up: Response: No adverse reaction; RASS: Alert and Calm (0) lg3 21:11 Drug: ToPROL XL (metoprolol SUCCINATE) 25 mg Route: PO; lg3 21:31 Follow up: Response: No adverse reaction lg3 21:26 Not Given (Hemodynamic Parameters): Lopressor (metoprolol) 2.5 mg IVP once; Hold for lg3 SBP <100 or HR <60. Medication: 21:56 VIS not applicable for this client. lg3 Outcome: 21:21 Discharge ordered by . [facility] 21:56 Discharged to home via wheelchair, with family. lg3 21:56 Condition: stable 21:56 Discharge instructions given to patient, family, Instructed on discharge instructions, follow up and referral plans. medication usage, Demonstrated understanding of instructions, follow-up care, medications, Prescriptions given X 3. 21:56 Patient left the ED. lg3 NIH Stroke Scale - NIH Stroke Score Date: 05/01/2022 Time: 19:55 Total Score = 0 1a. Level of Consciousness (LOC) - 0(Alert) 1b. Level of Consciousness (LOC) (Month \T\ Age) - 0(Both) 1c. LOC Commands (Open \T\ Closes Eyes/Front End Loader Driver) - 0(Both) 2. Best Gaze (Lateral Gaze Paresis) - 0(Normal) 3. Visual Field Loss - 0(No visual loss) 4. Facial Palsy - 0(Normal) 5a. Left Arm: Motor (10-second hold) - 0(No drift) 5b. Right Arm: Motor (10-second hold) - 0(No drift) 6a. Left Leg: Motor (5-second hold - always test supine) - 0(No drift) 6b. Right Leg: Motor (5-second hold - always test supine) - 0(No drift) 7. Limb Ataxia (finger/nose \T\ heel/parkinson - test with eyes open) - 0(Absent) 8. Sensory Loss (pinprick arms/legs/face) - 0(Normal) 9. Best Language: Aphasia (description/naming/reading) - 0(No aphasia) 10. Dysarthria (speech clarity - read or repeat words) - 0(Normal) 11. Extinction and Inattention (visual/tactile/auditory/spatial/personal) - 0(No abnormality) Initials: [facility] Signatures: Dispatcher [employer] EDMS Jim Fonseca MD MD cha Hall, Patricia, RN RN Selma Rivers rg4 Marely Ortega RN RN lg3 Arabella Bansal RN RN ld1 Corrections: (The following items were deleted from the chart) 21:10 21:09 BP 210 / 79; Pulse 57bpm; Resp 14bpm; Pulse Ox 96% RA; lg3 lg3
[2022-05-01 22:00] VITALS: TEMP 97
[2022-05-01 22:04] VITALS: O2SAT 96
[2022-05-01 22:05] VITALS: BP 204/82
== END 2022-05-01 21:56 | disposition home or self-care (01) ==
LOC: ER 18:27
DX: I10 Essential (primary) hypertension (principal); E87.6 Hypokalemia; E78.00 Pure hypercholesterolemia, unspecified; E03.9 Hypothyroidism, unspecified; Z79.82 Long term (current) use of aspirin; Z88.0 Allergy status to penicillin; Z88.1 Allergy status to other antibiotic agents; Z88.5 Allergy status to narcotic agent
CPT/HCPCS: 36415; 71045; 80048; 84484; 85025; 93005; 96374; 99284

== ENCOUNTER 2022-09-25 08:13 | Emergency (ER) | payer OTHER ==
--- OUTSIDE RECORDS SUMMARY | 2022-09-25 08:31 | XMS REPORT | Continuity of Care Document ---
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 mouth st (HYDRODIURI 10:02: 00:00 daily. Hos yoan L) 25 MG 43 :00 l tablet amIODarone 2021-03 No 100mg QD Take 100 M ethodi (PACERONE) 2 12-[address] 200 MG 10:01: 00:00 mouth Hospita tablet 09 :00 daily. l amIODarone 2021-03 No 100mg QD Take 100 M ethodi (PACERONE) 2- 12-[address] 200 MG 10:01: 00:00 mouth Hospita tablet 09 :00 daily. l amIODarone 2021-03- No 100mg QD Take 100 M ethodi (PACERONE) 2- 12-[address] 200 MG 10:01: 00:00 mouth Hospita tablet 09 :00 daily. l amLODIPine 2021-03 No 5mg QD Take 5 mg M ethodi (NORVASC) 5 -10 04-[address] mg tablet 10:00: 00:00 daily. Hospi ta 51 :00 l amLODIPine 2021-03- No 5mg QD Take 5 mg M ethodi (NORVASC) 5 05-[address] mg tablet 10:00: 00:00 daily. Hospi ta 51 :00 l amLODIPine 2021-03- No 5mg QD Take 5 mg M ethodi (NORVASC) 5 05-[address] mg tablet 10:00: 00:00 daily. Hospi ta 51 :00 l losartan 2021-03- No 100mg QD Take 1 [facility] (COZAAR) 05-[address] 100 MG 10:00: 00:00 (100 mg Hospita tablet 35 :00 total) by l mouth daily. losartan 2021-03- No 100mg QD Take 1 [facility] (COZAAR) 05-[address] 100 MG 10:00: 00:00 (100 mg Hospita tablet 35 :00 total) by l mouth daily. losartan 2021-03 No 100mg QD Take 1 [facility] (COZAAR) 05-[address] 100 MG 10:00: 00:00 (100 mg Hospita tablet 35 :00 total) by l mouth daily. fluticasone 2021-03 Yes [id number] 100ug QD 2 sprays [facility] propionate 05-02 ([address] (FLONASE) 00:00: total) by Hos yoan 50 00 Each Nare l mcg/actuati route on nasal daily. spray losartan 2021-03 Yes 100mg QD Take 1 Method i (COZAAR) 2-[address] 100 MG 00:00: (100 mg Hospita tablet 00 total) by l mouth daily. fluticasone 2021-03 Yes [id number] 100ug QD 2 sprays [facility] propionate 2-07 ([address] (FLONASE) 00:00: total) by Hos yoan 50 00 Each Nare l mcg/actuati route on nasal daily. spray losartan 2021-03 Yes 100mg QD Take 1 Method i (COZAAR) 2-[address] 100 MG 00:00: (100 mg Hospita tablet 00 total) by l mouth daily. losartan 2021-03 Yes 100mg QD Take 1 [facility] i (COZAAR) 05-[address] 100 MG 00:00: (100 mg Hospita tablet 00 total) by l mouth daily. fluticasone 2021-03- No [id number] 100ug QD 2 sprays [facility] propionate 05-02 05-15 ([address] (FLONASE) 00:00: 00:00 total) by Ho spita 50 00 :00 Each Nare l mcg/actuati route on nasal daily. spray valACYclovi 2021-03 Yes 500mg QD TAKE 1 Met hodi r (VALTREX) -[address] 500 MG 00:00: (500 MG Hospita tablet 00 TOTAL) BY l MOUTH DAILY. latanoprost 2021-03 Yes Method i (XALATAN) 04-03 st 0.005 % 00:00: Hospita ophthalmic 00 l solution valACYclovi 2021-03 Yes 500mg QD TAKE 1 Met hodi r (VALTREX) 04-[address] 500 MG 00:00: (500 MG Hospita tablet 00 TOTAL) BY l MOUTH DAILY. latanoprost 2021-03 Yes Method i (XALATAN) 04-03 st 0.005 % 00:00: Hospita ophthalmic 00 l solution valACYclovi 2021-03 Yes 500mg QD TAKE 1 Met [facility] r (VALTREX) 04-[address] 500 MG 00:00: (500 MG Hospita tablet 00 TOTAL) BY l MOUTH DAILY. latanoprost 2021-03 Yes Method i (XALATAN) 04-03 st 0.005 % 00:00: Hospita ophthalmic 00 l solution COCONUT OIL 2021-03- No Take by Ri thodi ORAL 04-[address] 14:06: 00:00 Hospita 36 :00 l COCONUT OIL 2021-03- No Take by Ri th[facility] ORAL 04-[address] 14:06: 00:00 Hospita 36 :00 l COCONUT OIL 2021-03- No Take by Ri thodi ORAL 04-[address] 14:06: 00:00 Hospita 36 :00 l oxyCODone-a 2021-03- [place] [id number] 1{tbl} Q6H Take 1 [facility] cetaminophe 04-[address] n 00:00: 05:59 mouth Hospita (PERCOCET) 00 :00 every 6 l 5-325 mg (six) per tablet hours as needed for moderate pain for up to 5 days .acute pain. Max Daily Amount: 4 tablets oxyCODone-a 2021-03- [place] [id number] 1{tbl} Q6H Take 1 [facility] cetaminophe 04-[address] n 00:00: 05:59 mouth Hospita (PERCOCET) 00 :00 every 6 l 5-325 mg (six) per tablet hours as needed for moderate pain for up to 5 days .acute pain. Max Daily Amount: 4 tablets oxyCODone-[place] 2021-03- [place] [id number] 1{tbl} Q6H Take 1 [facility] cetaminophe 04-[address] n 00:00: 05:59 mouth [...] mcg 00 EVERY l tablet MORNING. atorvastati 2021-0 Yes 80mg QD Take 1 Meth mike n (LIPITOR) 9-30 tablet (80 st 80 MG 00:00: mg total) Hospita tablet 00 by mouth l daily. atorvastati 2021-0 Yes 80mg QD Take 1 [facility] mike n (LIPITOR) 9-30 tablet (80 st 80 MG 00:00: mg total) Hospita tablet 00 by mouth l daily. atorvastati 2021-0 Yes 80mg QD Take 1 [facility] mike n (LIPITOR) 9-30 tablet (80 st 80 MG 00:00: mg total) Hospita tablet 00 by mouth l daily. atorvastati 2021-0 Yes 80mg QD Take 1 [facility] mike n (LIPITOR) 9-30 tablet (80 st 80 MG 00:00: mg total) Hospita tablet 00 by mouth l daily. levothyroxi 2021-0 2021- No 88ug QD Take 1 Met [facility] ne 9-30 10-21 tablet (88 st (SYNTHROID) 00:00: 00:00 mcg total) Hospita 88 mcg 00 :00 by mouth l tablet every morning. levothyroxi 2021-0 2021- No 88ug QD Take 1 Met h[facility] ne 9-30 10-21 tablet (88 st (SYNTHROID) 00:00: 00:00 mcg total) Hospita 88 mcg 00 :00 by mouth l tablet every morning. levothyroxi 2021-0 2- No 88ug QD Take 1 [facility] ne 9-30 10-21 tablet (88 st (SYNTHROID) 00:00: 00:00 mcg total) Hospita 88 mcg 00 :00 by mouth l tablet every morning. levothyroxi 2021-0 2- No 88ug QD Take 1 Met [facility] ne 9-30 10-21 tablet (88 st (SYNTHROID) 00:00: 00:00 mcg total) Hospita 88 mcg 00 :00 by mouth l tablet every morning. apixaban 2021-2021- No 2.5mg Q.5D Take 2.5 Met [facility] (ELIQUIS) - 09-[address] 2.5 mg 10:10: 00:00 mouth 2 Hospita tablet 25 :00 (two) l times a day. apixaban 2021-0 2022- No 2.5mg Q.5D Take 2.5 [facility] (ELIQUIS) - 09-[address] 2.5 mg 10:10: 00:00 mouth 2 Hospita tablet 25 :00 (two) l times a day. apixaban 2021-0 202- No 2.5mg Q.5D Take 2.5 [facility] (ELIQUIS) - 09-[address] 2.5 mg 10:10: 00:00 mouth 2 Hospita tablet 25 :00 (two) l times a day. apixaban 2021-0 202- No 2.5mg Q.5D Take 2.5 [facility] (ELIQUIS) - 09-[address] 2.5 mg 10:10: [...] QD Take 30 mg M [facility]i mononitrate -[address] (IMDUR) 30 09:45: daily. Hospi ta MG 24 hr 48 l tablet hydroCHLORO 2021-0 Yes 25mg QD Take 25 mg [facility] thiazide -[address] (HYDRODIURI 09:45: daily. Hosp dinora L) 25 MG 48 l tablet amIODarone 2021-0 Yes 100mg QD Take 100 Me [facility] (PACERONE) 9-[address] 200 MG 09:45: mouth Hospita tablet 48 daily. l carvediloL Yes 3.125mg Q.5D Take 3.125 [facility] (COREG) 9-[address] 3.125 MG 09:45: mouth 2 Hospit a tablet 48 (two) l times a day with meals. donepeziL Yes 5mg QD Take 5 mg [facility] (ARICEPT) 5 12-[address] MG tablet 09:45: nightly. Hosp dinora 48 l cyanocobala Yes Take by Met h[facility] min, 12-[address] vitamin 09:45: Hospita B-12, 48 l (VITAMIN B-12 ORAL) COCONUT OIL Yes Take by Met h[facility] ORAL 12-[address] 09:45: Hospita 48 l pantoprazol 0 2021- No TAKE 1 Met hodi e 8-24 10-[address] (PROTONIX) 00:00: 00:00 MOUTH Hospi ta 20 MG EC 00 :00 EVERY DAY l tablet pantoprazol 0 2021- No TAKE 1 Met hodi e 8-24 10-[address] (PROTONIX) 00:00: 00:00 MOUTH Hospi ta 20 MG EC 00 :00 EVERY DAY l tablet pantoprazol 2021-0 2021- No TAKE 1 Met hodi e 8-24 10-[address] (PROTONIX) 00:00: 00:00 MOUTH Hospi ta 20 MG EC 00 :00 EVERY DAY l tablet pantoprazol 2021-0 2021- No TAKE 1 Met hodi e 8-24 10-[address] (PROTONIX) 00:00: 00:00 MOUTH Hospi ta 20 MG EC 00 :00 EVERY DAY l tablet latanoprost 2021- No Metho di (XALATAN) 10-0715 st 0.005 % 11:20: 00:00 Hospita ophthalmic 36 :00 l solution latanoprost 2021- No Metho di (XALATAN) 10-07 st 0.005 % 11:20: 00:00 Hospita ophthalmic 36 :00 l solution latanoprost 2021- No Metho di (XALATAN) 7-15 07-15 st 0.005 % 11:20: 00:00 Hospita ophthalmic 36 :00 l solution latanoprost 2021-0 2021- No Metho di (XALATAN) 7-15 07-15 st 0.005 % 11:20: 00:00 Hospita ophthalmic 36 :00 l solution polyethylen 2-0 2- No 17g QD Take 17 g [facility] e glycol 7-15 07-[address] (MIRALAX) 11:20: 00:00 daily. Hospi ta 17 gram 29 :00 l packet polyethylen 2-0 2- No 17g QD Take 17 g [facility] e glycol 7-15 07-[address] (MIRALAX) 11:20: 00:00 daily. Hospi ta 17 gram 29 :00 l packet polyethylen 2-0 2- No 17g QD Take 17 g [facility] e glycol 7-15 07-[address] (MIRALAX) 11:20: 00:00 daily. Hospi ta 17 gram 29 :00 l packet polyethylen 2-0 2- No 17g QD Take 17 g Methodi [...] MG 00:00: Hospita tablet 00 l fenofibrate 2022-0 Yes 54mg Take 1 Meth mike (LOFIBRA) 7-09 tablet (54 st 54 MG 00:00: mg total) Hospita tablet 00 by mouth. l fenofibrate 2022-0 Yes 54mg Take 1 Meth mike (LOFIBRA) 7-09 tablet (54 st 54 MG 00:00: mg total) Hospita tablet 00 by mouth. l folic acid 2-0 Yes 1mg QD Take 1 mg [facility] (FOLVITE) 1 7-[address] MG tablet 00:00: daily. Hospit a 00 l folic acid 2-0 Yes 1mg QD Take 1 mg [facility] (FOLVITE) 1 7-[address] MG tablet 00:00: daily. Hospit a 00 l folic acid 2022-0 Yes 1mg QD Take 1 [facility] di (FOLVITE) 1 7-05 tablet (1 st MG tablet 00:00: mg total) Hos yoan 00 by mouth l daily. folic acid 2022-0 Yes 1mg QD Take 1 [facility] di (FOLVITE) 1 7-05 tablet (1 st MG tablet 00:00: mg total) Hos yoan 00 by mouth l daily. pantoprazol 2022-0 2022- No 20mg QD Take 20 mg [facility] e 5-25 08-[address] (PROTONIX) 00:00: 00:00 daily. [facility] 20 MG EC 00 :00 l tablet pantoprazol 2022-0 2022- No 20mg QD Take 20 mg [facility] e 5-25 08-[address] (PROTONIX) 00:00: 00:00 daily. [facility] 20 MG EC 00 :00 l tablet pantoprazol 2022-0 2022- No 20mg QD Take 20 mg [facility] e 5-25 08-[address] (PROTONIX) 00:00: 00:00 daily. [facility] 20 MG EC 00 :00 l tablet pantoprazol 2022-0 2022- No 20mg QD Take 20 mg [facility] e 5-25 08-[address] (PROTONIX) 00:00: 00:00 daily. [facility] 20 MG EC 00 :00 l tablet thiamine 2022-0 Yes 100mg QD Take 100 Meth mike 100 MG 5-[address] tablet 00:00: mouth Hospita 00 daily. l thiamine 2022-0 Yes 100mg QD Take 100 Meth mike 100 MG 5-[address] tablet 00:00: mouth Hospita 00 daily. l thiamine 2022-0 Yes 100mg QD Take 1 [facility] i 100 MG 5-[address] tablet 00:00: (100 mg Hospita 00 total) by l mouth daily. thiamine 2022-0 Yes 100mg QD Take 1 [facility] i 100 MG 5-[address] tablet 00:00: (100 mg Hospita 00 total) by l mouth daily. valACYclovi 2022-0 Yes 500mg QD Take 1 [facility] r (VALTREX) 3-[address] 500 MG 00:00: (500 mg Hospita tablet 00 total) by l mouth daily. valACYclovi 2021- No 500mg QD Take 1 [facility] r (VALTREX) 3-30 - tablet st 500 MG 00:00: 00:00 (500 mg Hospita tablet 00 :00 total) by l mouth daily. valACYclovi 2021- No 500mg QD Take 1 [facility] r (VALTREX) 3-30 - tablet st 500 MG 00:00: 00:00 (500 mg Hospita tablet 00 :00 total) by l mouth daily. valACYclovi 2021- No 500mg QD Take 1 [facility] r (VALTREX) 3- tablet st 500 MG 00:00: 00:00 (500 mg Hospita tablet 00 :00 total) by l mouth daily. levothyroxi 2021- No 100ug QD Take 1 [facility] ne [address] (SYNTHROID) 00:00: 00:00 (100 mcg H ospita 100 mcg 00 :00 total) by l tablet mouth every morning. levothyroxi 2021- No 100ug QD Take 1 [facility] ne 1-01 01-[address] (SYNTHROID) 00:00: 00:00 (100 mcg H ospita 100 mcg 00 :00 total) by l tablet mouth every morning. levothyroxi 2021- No 100ug QD Take 1 [facility] ne 1-01 01-[address] (SYNTHROID) 00:00: 00:00 (100 mcg H ospita 100 mcg 00 :00 total) by l tablet mouth every morning. levothyroxi 2021- No 100ug QD Take 1 [facility] ne 1-10 -[address] (SYNTHROID) 00:00: 00:00 (100 mcg H ospita 100 mcg 00 :00 total) by l tablet mouth every morning. valACYclovi 2021- No Take 1 tab [facility] r (VALTREX) 1- 03-[address] 500 MG 00:00: 00:00 days prn Hospit a tablet 00 :00 outbreak l valACYclovi 2021- No Take 1 tab [facility] r (VALTREX) 04-04 03-[address] 500 MG 00:00: 00:00 days prn Hospit a tablet 00 :00 outbreak l pregabalin 2021- No 50mg [id number] Take 50 mg [facility] (LYRICA) 50 03-31 [id number] by mouth 3 [address] MG capsule 09:42: [...] mouth Hospita 51 :00 daily. l pregabalin 2021-0 Yes 50mg QD Take 1 [facility] di (LYRICA) 50 -[address] MG capsule 00:00: (50 mg Hospi ta 00 total) by l mouth nightly. pregabalin 2021-0 Yes 50mg QD Take 1 [facility] di (LYRICA) 50 1-[address] MG capsule 00:00: (50 mg Hospi ta 00 total) by l mouth nightly. pregabalin Yes 50mg QD Take 1 [facility] di (LYRICA) 50 -[address] MG capsule 00:00: (50 mg Hospi ta 00 total) by l mouth nightly. pregabalin 2022- No 50mg QD Take 1 Meth mike (LYRICA) 50 03-31- capsule st MG capsule 00:00: 05:59 (50 mg Hosp dinora 00 :00 total) by l mouth nightly. levothyroxi 2020-03- No TAKE 1 Met hodi ne 05-[address] (SYNTHROID) 00:00: 00:00 MOUTH [facility]osp dinora 100 mcg 00 :00 EVERY DAY l tablet fenofibrate 2020-03- No TAKE 1 Met h[facility] (TRICOR) 48 0-12 -[address] MG tablet 00:00: 00:00 MOUTH Hospit a 00 :00 EVERYDAY l AT BEDTIME fenofibrate 2020-03- No TAKE 1 Met [facility] (TRICOR) 48 0-12 -[address] MG tablet 00:00: 00:00 MOUTH Hospit a 00 :00 EVERYDAY l AT BEDTIME fenofibrate 2020-03- No TAKE 1 [facility] (TRICOR) 48 0-12 -[address] MG tablet 00:00: 00:00 MOUTH Hospit a 00 :00 EVERYDAY l AT BEDTIME fenofibrate 2020-03- No TAKE 1 [facility] (TRICOR) 48 0-12 -[address] MG tablet 00:00: 00:00 MOUTH Hospit a 00 :00 EVERYDAY l AT BEDTIME atorvastati 2021- No 80mg QD Take 1 Met hodi n (LIPITOR) 12-23-30 tablet (80 s t 80 MG 00:00: 00:00 mg total) Hospit a tablet 00 :00 by mouth l daily. atorvastati 2021- No 80mg QD Take 1 Met hodi n (LIPITOR) 12-23-30 tablet (80 s t 80 MG 00:00: [...] 2021- No 1{tbl} 1 tablet. [facility] en-codeine 09-28- st (TYLENOL 00:00: 00:00 Hospita WITH 00 :00 l CODEINE #3) 300-30 mg per tablet diclofenac Yes [id number] APPLY 2 [facility] (VOLTAREN) 4-[address] 1 % gel 00:00: RIGHT KNEE Hosp dinora 00 4 TIMES A l DAY NEEDED FOR PAIN diclofenac 2021- No [id number] APPLY 2 [facility] (VOLTAREN) 4- 11-[address] 1 % gel 00:00: 00:00 RIGHT KNEE Hos yoan 00 :00 4 TIMES A l DAY NEEDED FOR PAIN diclofenac 2021- No [id number] APPLY 2 [facility] (VOLTAREN) 4-26 11-[address] 1 % gel 00:00: 00:00 RIGHT KNEE Hos yoan 00 :00 4 TIMES A l DAY NEEDED FOR PAIN diclofenac 2021- No [id number] APPLY 2 [facility] (VOLTAREN) 4-26 11-[address] 1 % gel 00:00: 00:00 RIGHT KNEE Hos yoan 00 :00 4 TIMES A l DAY NEEDED FOR PAIN potassium 2019-03- No TAKE 1 Metho di chloride 0-12 03-[address] (K-DUR) 20 00:00: 00:00 MOUTH Hospi ta MEQ CR 00 :00 EVERY DAY l tablet Apixaban No 2.5mg Twice A ANNIKA MAGI (Eliquis) 09-24 Day S 2.5 Mg TAB 12:37: Health 00 Apixaban No 2.5mg Nayt (Eliquis) 09-24 st 2.5 Mg TAB 12:37: [place] 00 na LIVE HCIS valACYclovi 2021- No TAKE 1 Met hodi [...] 1{tbl} QD Take 1 [facility] neral-iron- - tablet by st lutein 00:00: mouth Hospita tablet 00 daily. l multivit-mi 2011-03 Yes 1{tbl} QD Take 1 [facility] neral-iron- -[address] lutein 00:00: mouth Hospita tablet 00 daily. l calcium 2011-03- No 1{tbl} QD Chew 1 [facility] di carbonate-v 04-20 07-[address] itamin D3 00:00: 00:00 daily. Hospi ta 600 mg-20 00 :00 l mcg (800 unit) tablet,chew able calcium 2011-03- No 1{tbl} QD Chew 1 [facility] di carbonate-v 04-20-[address] itamin D3 00:00: 00:00 daily. Hospi ta 600 mg-20 00 :00 l mcg (800 unit) tablet,chew able calcium 2011-03- No 1{tbl} QD Chew 1 [facility] di carbonate-v 04-20 07-[address] itamin D3 00:00: 00:00 daily. Hospi ta 600 mg-20 00 :00 l mcg (800 unit) tablet,chew able calcium 2011-03- No 1{tbl} QD Chew 1 [facility] di carbonate-v 04-20-[address] itamin D3 00:00: 00:00 daily. [...] Chloride S (K-Dur) 20 [facility] Meq TABCR Atorvastati No 80mg [place] Cal[place] [facility] (Lipitor) [place] 80 Mg TAB na LIVE HC[facility] Clopidogrel No 75mg [place] Bisulfate st (Plavix) 75 [place] Mg TAB na LIVE HCIS Duloxetine No 60mg [facility] Hcl st (Cymbalta) [place] 60 Mg CPDR na LIVE [facility] Fenofibrate No 150mg [place] (Lipofen) st 150 Mg CAP [place] na LIVE HCIS Isosorbide No 30mg [facility] Dinitrate st (Isordil) [place] 30 Mg TAB na LIVE HCIS Levothyroxi No 75ug [facility] ne Sodium st (Synthroid) [place] 75 Mcg na LIVE TABLET HCIS Potassium No [address] [facility] [address]lor[address] (K-Dur) 20 [place] Meq TABCR na LIVE HCIS Immunizations Ordered Immunization Filled Immunization Date Status Commen ts Source Name Name Tdap 2022-01-19 Completed [facility] 00:00:00 [facility] Tdap 2022-01-19 Completed [facility] 00:00:00 [facility] Tdap 2022-01-19 Completed [facility] 00:00:00 [facility] FLUZONE HIGH-DOSE PF 2021-12-15 Completed [facility] 00:00:00 [facility] FLUZONE HIGH-DOSE PF 2021-12-15 Completed [facility] 00:00:00 [facility] FLUZONE HIGH-DOSE PF 2021-12-15 Completed [facility] 00:00:00 [facility] FLUZONE HIGH-DOSE PF 2021-03-31 Completed [facility]ist 00:00:00 [facility] FLUZONE HIGH-DOSE PF 2021-03-31 Completed [facility] odist 00:00:00 [facility] FLUZONE HIGH-DOSE PF 2021-03-31 Completed Meth odist 00:00:00 [facility] FLUZONE HIGH-DOSE PF 2021-03-31 Completed Meth odist 00:00:00 [facility] MODERNA COVID-19 MRNA 2021-02-02 Completed Met hodist VACCINATION 00:00:00 [facility] MODERNA COVID-19 MRNA 2021-02-02 Completed [facility]ist VACCINATION 00:00:00 [facility] MODERNA COVID-19 MRNA 2021-02-02 Completed Met [facility]odist VACCINATION 00:00:00 [facility] MODERNA COVID-19 MRNA 2021-02-02 Completed Met hodist VACCINATION 00:00:00 [facility] FLUZONE HIGH-DOSE PF 2020-12-21 Completed [facility] 00:00:00 [facility] FLUZONE HIGH-DOSE PF 2020-12-21 Completed [facility] odist 00:00:00 [facility] FLUZONE HIGH-DOSE PF 2020-12-21 Completed [facility] odist 00:00:00 [facility] FLUZONE HIGH-DOSE PF 2020-12-21 [facility] 2020[facility]27 [facility] 2020-05-27 Com[facility] 2020-05-27 Com[facility] 2020-05-27 Com[facility] 2020-05-27 Com[facility] 2020-05-27 Com[facility] 2020-05-27 Com[facility] 2020-05-01 Com[facility] 2020-05-01 Com[facility] 2020-05-01 Com[facility] 2020-05-01 Completed [facility] 2020-05-01 Completed [facility] 2020-05-01 Completed [facility] 2020-05-01 Com[facility] 2020-05-01 Completed [facility]odist VACCINATION 00:00:00 [facility] FLUZONE HIGH-DOSE PF 2019-11-25 Completed [facility] 00:00:00 [facility] Pneumococcal 2019-11-25 Completed [facility] Polysaccharide 00:00:00 Hospital FLUZONE HIGH-DOSE PF 2019-11-25 Completed [facility] 00:00:00 Hospital Pneumococcal 2019-11-25 Completed [facility] Polysaccharide 00:00:00 [facility] FLUZONE HIGH-DOSE PF 2019-11-25 Completed [facility] 00:00:00 Hospital Pneumococcal 2019-11-25 Completed [facility] Polysaccharide 00:00:00 Hospital FLUZONE HIGH-DOSE PF 2019-11-25 Completed [facility] 00:00:00 Hospital Pneumococcal 2019-11-25 Completed [facility] Polysaccharide 00:00:00 Hospital Td, Unspecified 2018-01-20 Completed [facility] 00:00:00 [facility] Td, Unspecified 2018-01-20 Completed [facility] 00:00:00 [facility] Td, Unspecified 2018-01-20 Completed [facility] 00:00:00 [facility] Td, Unspecified 2018-01-20 Completed [facility] 00:00:00 [facility] FLUZONE HIGH-DOSE PF 2017-11-08 Completed [...] PF 2016-01-12 Completed [facility] 00:00:00 Hospital FLUZONE HIGH-DOSE PF 2016-01-12 Completed [facility] 00:00:00 Hospital FLUZONE HIGH-DOSE PF 2016-01-12 Completed [facility] 00:00:00 Hospital FLUZONE HIGH-DOSE PF 2016-01-12 Completed [facility] 00:00:00 Hospital Pneumococcal 2015-05-26 Completed [facility] Conjugate 13-Valent 00:00:00 [facility] Pneumococcal 2015-05-26 Completed [facility] Conjugate 13-Valent 00:00:00 [facility] Pneumococcal 2015-05-26 Completed [facility] Conjugate 13-Valent 00:00:00 [facility] Pneumococcal 2015-05-26 Completed [facility] Conjugate 13-Valent 00:00:00 [facility] Influenza Trivalent 2014-12-25 Completed [facility] 00:00:00 Hospital Influenza Trivalent 2014-12-25 Completed [facility] 00:00:00 Hospital FLUZONE HIGH-DOSE PF 2014-12-25 Completed [facility] 00:00:00 Hospital Influenza Trivalent 2014-12-25 Completed [facility] 00:00:00 Hospital FLUZONE HIGH-DOSE PF 2014-12-25 Completed [facility] 00:00:00 Hospital Influenza Trivalent 2014-12-25 Completed [facility] 00:00:00 Hospital FLUZONE HIGH-DOSE PF 2014-12-25 Completed [facility] 00:00:00 Hospital Zoster 2014-02-03 Completed [facility] 00:00:00 [facility] Zoster 2014-02-03 Completed [facility] 00:00:00 [facility] Zoster 2014-02-03 Completed [facility] 00:00:00 [facility] Zoster 2014-02-03 Completed [facility] 00:00:00 [facility] Influenza Trivalent 2013-12-17 Completed [facility] 00:00:00 Hospital Influenza Trivalent 2013-12-17 Completed [facility] 00:00:00 Hospital FLUZONE HIGH-DOSE PF 2013-12-17 Completed [facility] 00:00:00 [facility] Influenza Trivalent 2013-12-17 Completed [facility] 00:00:00 Hospital FLUZONE HIGH-DOSE PF 2013-12-17 Completed [facility] 00:00:00 [facility] Influenza Trivalent 2013-12-17 Completed [facility] 00:00:00 Hospital FLUZONE HIGH-DOSE PF 2013-12-17 Completed [facility] 00:00:00 Hospital Influenza Trivalent 2012-12-10 Completed [facility] 00:00:00 [facility] Influenza Trivalent 2012-12-10 Completed [facility] 00:00:00 Hospital Influenza Trivalent 2012-12-10 Completed [facility] 00:00:00 Hospital Influenza Trivalent 2012-12-10 Completed [facility] 00:00:00 [facility] TD (ADULT), 5 LF 2008-07-29 Completed [facility] TETANUS TOXOID, 00:00:00 Hospital PRESERVATIVE FREE, ABSORBED TD (ADULT), 5 LF 2008-07-29 Completed [facility] TETANUS TOXOID, 00:00:00 Hospital PRESERVATIVE FREE, ABSORBED TD (ADULT), 5 LF 2008-07-29 Completed [facility] TETANUS TOXOID, 00:00:00 [facility] PRESERVATIVE FREE, ABSORBED TD (ADULT), 5 LF 2008-07-29 Completed [facility] TETANUS TOXOID, 00:00:00 Hospital PRESERVATIVE FREE, ABSORBED Pneumococcal 2001-03-06 Completed [facility] Polysaccharide 00:00:00 Hospital Pneumococcal 2001-03-06 Completed [facility] Polysaccharide 00:00:00 [facility] Pneumococcal 2001-03-06 Completed [facility] Polysaccharide 00:00:00 Hospital Pneumococcal 2001-03-06 Completed [facility] Polysaccharide 00:00:00 Hospital Vital Signs Vital Name Observation Time Observation Value Comments Source Oxygen saturation in 2022-08-16 20:47:00 96 /min [facility] Arterial blood by [facility] Pulse oximetry Branch Systolic blood 2022-08-16 20:47:00 102 mm[Hg] [facility] 2022-08-16 20:47:00 49 mm[Hg] Unive [facility] Heart rate 2022-08-16 20:47:00 61 /min [facility] Body temperature 2022-08-16 20:47:[address] [facility] Respiratory rate 2022-08-16 20:47:00 18 /min [facility] Body weight 2022-08-16 09:13:00 51.483 kg [facility] BMI 2022-08-16 09:13:00 21.45 kg/m2 [facility] Body height 2022-08-13 22:34:00 154.9 cm [facility] Systolic blood 2022-03-01 15:41:00 177 mm[Hg] Method ist [facility] pressure Diastolic blood 2022-03-01 15:41:00 75 mm[Hg[facility] pressure Heart rate 2022-03-01 15:41:00 53 /min [facility] Body temperature 2022-03-01 15:41:00 36.72 Constance [facility] odist [facility] Body height 2022-03-01 15:41:00 152.4 cm [facility] Body weight 2022-03-01 15:41:00 52.708 kg [facility] BMI 2022-03-01 15:41:00 22.69 kg/m2 [facility] Oxygen saturation in 2022-03-01 15:41:00 96 /min [facility] Arterial blood by Pulse oximetry Respiratory rate 2022-01-30 19:19:00 20 /min [facility] Systolic blood 2021-12-21 15:38:00 174 mm[Hg] [facility] pressure Diastolic blood 2021-12-21 15:38:00 66 mm[Hg] [facility] pressure Heart rate 2021-12-21 14:42:00 60 /min [facility] Body temperature 2021-12-21 14:42:00 36.33 Constance [facility] Respiratory rate 2021-12-21 14:42:00 16 /min [facility] Body height 2021-12-21 14:42:00 152.4 cm [facility] Body weight 2021-12-21 14:42:00 52.164 kg [facility] BMI 2021-12-21 14:42:00 22.46 kg/m2 [facility] Oxygen saturation in 2021-12-21 14:42:00 98 /min [facility] Arterial blood by Pulse oximetry Body Temperature 2019-09-25 11:40:00 97.2 [degF] [facility] Heart Rate 2019-09-25 11:40:00 63 /min [facility] Respiratory rate 2019-09-25 11:40:00 18 /min [facility] BP Systolic 2019-09-25 11:40:00 94 mm[Hg] [facility] BP Diastolic 2019-09-25 11:40:00 43 mm[Hg] [facility] Weight 2019-09-25 06:07:00 122 [lb_av] [facility] BMI (Body Mass 2019-09-25 06:07:00 24.6 kg/m2 [facility] US Health Index) Heart Rate 2019-09-25 03:06:00 87 /min [facility] Respiratory rate 2019-09-25 03:06:00 21 /min [facility] BP Systolic 2019-09-25 03:06:00 160 mm[Hg] [facility] BP Diastolic 2019-09-25 03:06:00 93 mm[Hg] [facility] Procedures Procedure Date / Time Performing Clinician Source Performed COVID-19 (ID NOW RAPID 2022-08-16 15:16:00 [facility] [place] [facility] THYROID STIMULATING 2022-08-14 09:09:00 Diane Long [facility] BASIC METABOLIC PANEL (NA, 2022-08-14 09:09:00 Zora Landry [facility] K, CL, CO2, GLUCOSE, BUN, [facility] CREATININE, CA) CBC WITH DIFF 2022-08-14 09:09[facility]00 [facility]BDOM[facility] PELVIS W 2022-08-14 01:05:23 Nicolas Sims [facility] CONTRAST [facility] URINE CULTURE 2022-08-14 00:15:00 Singer [facility] FREE T4 2022-08-14 00:01:00 Ethan [facility] COMP. METABOLIC PANEL 2022-08-14 00:01:00 Nicolas Sims [facility] ([id number]) [facility] CT CERVICAL SPINE WO 2022-08-13 23:30:19 Nicolas Sims [facility] CONTRAST [facility] CT HEAD WO CONTRAST 2022-08-13 23:29:57 Nicolas Sims [facility] XR CHEST 1 VW 2022-08-13 23:28:52 Nicolas Sims [facility] BLOOD CULTURE SCREEN 2022-08-13 23:13:00 Nicolas Sims [facility] TROPONIN I 2022-08-13 23:13:00 Nicolas Sims [facility] SALICYLATE 2022-08-13 23:13:00 Nicolas Sims [facility] ETHANOL 2022-08-13 23:13:00 Nicolas Sims [facility] URINE DRUG (IMMUNOASSAY) - 2022-08-13 23:13:00 Nicolas Sims [facility] COMPREHENSIVE DRUG SCREEN Medica [facility] [place] CBC WITH DIFF 2022-08-13 23:13:00 Nicolas Sims [facility] URINALYSIS 2022-08-13 23:13:00 Nicolas Sims [facility] RAPID INFLUENZA A/B 2022-08-13 23:13:00 Nicolas Sims [facility] N-TERMINAL PRO-BNP 2022-08-13 23:13:00 Nicolas Sims [facility] COVID-19 (ID NOW RAPID 2022-08-13 23:13:00 Nicolas Sims [facility] TESTING) Medical Branch LAB ONLY COVID 2022-08-13 23:13:00 Nicolas Sims [facility] INTERPRETATION [facility] HB ECG ROUTINE & RHYTHM 2022-08-13 22:48:19 [facility] ARTHROCENTESIS 2022-06-21 14:30:00 Adrianna Miranda [employer] Akira ASPIR&/INJ MAJOR JT/BURSA W/O US OPERATION, KNEE, 2022-01-30 17:05:00 Adrianna Miranda ospital ARTHROSCOPIC POC GLUCOSE 2022-01-30 16:15:00 Adrianna Miranda spital MD AN ELECTIVE 2022-01-30 15:04:[address] [facility] SUPRAGLOTTIC AIRWAY OPERATION, KNEE, 2022-01-30 14:59:00 Adrianna Miranda ospital ARTHROSCOPIC POC PANEL 2022-01-30 14:11:00 Adrianna Miranda spital MAMMO BREAST SCREEN 2021-12-28 14:46:00 MancelonaPoli peterson [facility] TOMOSYNTHESIS BILATERAL [place] CBC WITH PLATELET AND 2021-12-22 12:45:00 MancelonaJaynaPoli [facility] DIFFERENTIAL [place] THYROID STIMULATING 2021-12-22 12:45:00 [facility] HORMONE [place] COMPREHENSIVE METABOLIC 2021-12-22 12:45:00 MancelonaPoli peterson [facility] PANEL [place] URINALYSIS, AUTOMATED WITH 2021-12-22 12:45:00 Mancelona [facility] MICROSCOPY [place] LIPID PANEL 2021-12-22 12:45:00 [facility] [place] HEMOGLOBIN A1C 2021-12-22 12:45:00 [facility] VITAMIN D 25 HYDROXY LEVEL 2021-12-22 12:45:00 [facility] [place] CBC WITH PLATELET AND 2021-12-22 12:45:00 [facility] DIFFERENTIAL [place] MD ARTHROCENTESIS 2021-12-21 13:50:00 Adrianna Miranda [facility] ASPIR&/INJ MAJOR JT/BURSA W/O US MRI KNEE WO CONTRAST LEFT 2021-12-14 14:15[facility]00 [facility] 2 VW 2021-09-28 19:41:49 [facility] BILATERAL MD ARTHROCENTESIS 2021-09-28 19:30:00 [facility] ASPIR&/INJ MAJOR JT/BURSA W/O US THYROID STIMULATING 2021-03-31 15:55:00 [facility] HORMONE [place] HSV 1 AND 2 SPECIFIC AB 2021-03-31 15:55:00 [facility] IGG [place] Transthoracic two 2019-09-25 00:00:00 BILL wild dimensional echocardiography with color Doppler imaging and contrast Myocrd Strain Img Speckl 2019-09-25 00:00:00 [facility] Track X-ray of chest, single 2019-09-24 00:00:00 [facility] view ECG (electrocardiogram) 2019-09-24 00:00:00 [facility] 12 lead ECG interpretation 2019-09-24 00:00:00 C [facility] [id number] 2019-08-06 00:00:00 [facility] [id number] 2019-08-06 00:00:00 [facility] [id number] 2019-08-06 00:00:00 [facility] [id number] 2019-08-06 00:00:00 [facility] [id number] 2019-08-06 00:00:00 JUSTINE [facility] Plan of Care Planned Activity Planned Date Details Comments Source Future Scheduled Test 2022-09-14 SHINGLES VACCINES (2 [facility] 11:02:15 of 3) [code = SHINGLES VACCINES (2 of 3)] Future Scheduled Test 2022-09-14 COVID-19 VACCINE (6 - [facility] 11:02:15 Moderna series) [code = COVID-19 VACCINE (6 - Moderna series)] Future Scheduled Test 2022-09-14 INFLUENZA VACCINE [facility] 11:02:15 [code = INFLUENZA VACCINE] Future Scheduled Test 2022-07-07 SHINGLES VACCINES (1 [facility] 12:32:59 of 2) [code = SHINGLES VACCINES (1 of 2)] Future Scheduled Test 2022-07-07 INFLUENZA VACCINE [facility] 12:32:59 [code = INFLUENZA VACCINE] Future Scheduled Test 2022-04-27 SHINGLES VACCINES (1 [facility] 10:59:44 of 2) [code = SHINGLES VACCINES (1 of 2)] Future Scheduled Test 2022-01-19 HEPATITIS B VACCINES [facility] 18:11:59 (1 of 3 - 3-dose series) [code = HEPATITIS B VACCINES (1 of 3 - 3-dose series)] Future Scheduled Test 2022-01-19 SHINGLES VACCINES (1 [facility] 18:11:59 of 2) [code = SHINGLES VACCINES (1 of 2)] Future Scheduled Test 2022-01-19 COVID-19 VACCINE (4 - [facility] 18:11:59 Booster for Moderna series) [code = COVID-19 VACCINE (4 - Booster for Moderna series)] Future Scheduled Test Serum or plasma [facility] cardiac troponin I [place] LIVE measurement HCIS (mass/volume) [code = 29829-1] Instructions Atrial Fibrillation [facility] ([place]) [place] LIVE HCIS Instructions [facility] LIVE HCIS Encounters Start End Encounter Admission Attending Care Care Encounter Source Date/Time Date/Time Type Type Clinicians Facility Department ID 2019-08-06 Inpatient EL KARLA SchroederCandelarioU SURG [id number] [facility] 08:00:[address] 2022-08-17 2022-08-17 Transition DENIS Hamlin 1.2.840.114 [id number] Univers 00:00:00 00:00:00 of Sugar [place] 350.1.13.10 it y of ALFREDARUDDY 4.2.7.2.686 Brian elizabeth [id number] [facility] [address] 2022-08-13 2022-08-16 Inpatient X ETHAN [facility] [id number] Univers 17:21:00 16:30:00 DIANE khanna of [facility] 2022-08-13 2022-08-16 [facility] Nicolas Sims RUST 1.2.840 .114 [id number] Univers 17:21:00 16:30:00 Encounter Diane Long 350.1.13.10 ity Zora Landry 4.2.7.2.686 [facility] [id number] [facility] [address] 2022-08-05 2022-08-05 Refill Galen, 1.2.840.1 [id number] Methodi 00:00:00 00:00:[address] [place] 3.430.2.7 Hospi ta .3.185755 l .8 2022-07-20 2022-07-20 Telephone Galen, 1.2.840.1 [id number] Methodi 00:00:00 00:00:[address] [place] 3.430.2.7 Hospi ta .3.336057 l .8 2022-07-17 2022-07-17 Patient Favio, 1.2.840.1 [id number] Methodi 00:00:00 00:00:00 Outreach Chelly 24412.1.[address] 3.430.2.7 Hospit a .3.942554 l .8 2022-07-07 2022-07-07 Patient Eric, 1.2.840.1 [id number] Methodi 00:00:00 00:00:00 Outreach Emily 56377.1.1 006 s t 3.430.2.7 Hospit a .3.428262 l .8 2022-07-07 2022-07-07 Patient Reyes, 1.2.840.1 [id number] Methodi 00:00:00 00:00:00 Outreach Emily 06240.1.1 006 s t 3.430.2.7 Hospit a .3.937188 l .8 2022-07-06 2022-07-06 Prep for Tony 1.2.840.1 [id number] Methodi 00:00:00 00:00:00 Surgery an, Marias 69946.1.[address] [place] 3.430.2.7 Hospit a .3.914108 l .8 2022-07-06 2022-07-06 Prep for Tony 1.2.840.1 [id number] 2 [id number] Methodi 00:00:00 00:00:00 Surgery an, Marisa 30363.1.[address] [place] 3.430.2.7 Hospit a .3.472744 l .8 2022-06-22 2022-06-22 Patient Reyes, 1.2.840.1 [id number] Methodi 00:00:00 00:00:00 Outreach Emily 64981.1.1 639 s t 3.430.2.7 Hospit a .3.739165 l .8 2022-06-22 2022-06-22 Patient Reyes, 1.2.840.1 [id number] Methodi 00:00:00 00:00:00 Outreach Emily 41907.1.1 639 s t 3.430.2.7 Hospit a .3.739429 l .8 2022-06-21 2022-06-21 Office Adrianna Miranda 1.2.840.1 [id number] Methodi 09:30:00 11:28:21 [address]649.1.[address] 3.430.2.7 Hospit a .3.106777 l .8 2022-06-21 2022-06-21 Office Adrianna Miranda 1.2.840.1 [id number] Methodi 09:30:00 11:28:21 [address]323.1.[address] 3.430.2.7 Hospit a .3.311154 l .8 2022-06-21 2022-06-21 Travel 1.2.840.1 1.2.064.270 2846 [id number] Methodi 00:00:00 00:00:[address] 3.430.2.7 0.2.7.3.698 Ho spita .3.504426 084.8 l .8 2022-06-21 2022-06-21 Travel 1.2.840.1 1.2.640.946 0978 [id number] Methodi 00:00:00 00:00:[address] 3.430.2.7 0.2.7.3.698 Ho spita .3.374861 084.8 l .8 2022-06-19 2022-06-19 Travel 1.2.840.1 1.2.855.071 5636 [id number] Methodi 00:00:00 00:00:[address] 3.430.2.7 0.2.7.3.698 Ho spita .3.801082 084.8 l .8 2022-06-19 2022-06-19 Travel 1.2.840.1 1.2.000.203 9236 [id number] Methodi 00:00:00 00:00:[address] 3.430.2.7 0.2.7.3.698 Ho spita .3.041168 084.8 l .8 2022-06-12 2022-06-12 Refill Galen, 1.2.840.1 [id number] Methodi 00:00:00 00:00:[address] [place] 3.430.2.7 Hospi ta .3.366924 l .8 2022-06-12 2022-06-12 Refill Galen, 1.2.840.1 [id number] 77635 Methodi 00:00:00 00:00:[address] [place] 3.430.2.7 Hospi ta .3.727968 l .8 2022-06-08 2022-06-08 Refill Mancelona, 1.2.840.1 [id number] Methodi 00:00:00 00:00:[address] [place] 3.430.2.7 Hospi ta .3.220042 l .8 2022-06-08 2022-06-08 Patient Reyes, 1.2.840.1 [id number] 2575 Methodi 00:00:00 00:00:00 Outreach Emily 77324.1.1 763 s t 3.430.2.7 Hospit a .3.431076 l .8 2022-06-08 2022-06-08 Telephone Mancelona, 1.2.840.1 [id number] 677 [id number] Methodi 00:00:00 00:00:[address] [place] 3.430.2.7 Hospi ta .3.669292 l .8 2022-06-08 2022-06-08 Refill Mancelona, 1.2.840.1 [id number] 92925 Methodi 00:00:00 00:00:[address] [place] 3.430.2.7 Hospi ta .3.412983 l .8 2022-06-08 2022-06-08 Refill Mancelona, 1.2.840.1 [id number] 94601 Methodi 00:00:00 00:00:[address] [place] 3.430.2.7 Hospi ta .3.511579 l .8 2022-06-08 2022-06-08 Patient Reyes, 1.2.840.1 [id number] Methodi 00:00:00 00:00:00 Outreach Emily 03056.1.1 763 s t 3.430.2.7 Hospit a .3.009667 l .8 2022-06-08 2022-06-08 Telephone Galen, 1.2.840.1 [id number] [id number] Methodi 00:00:00 00:00:[address] [place] 3.430.2.7 Hospi ta .3.134728 l .8 2022-06-08 2022-06-08 Refill Galen, 1.2.840.1 [id number] Methodi 00:00:00 00:00:[address] [place] 3.430.2.7 Hospi ta .3.104865 l .8 2022-06-03 2022-06-03 Refill Mancelona, 1.2.840.1 [id number] 01796 Methodi 00:00:00 00:00:[address] [place] 3.430.2.7 Hospi ta .3.600032 l .8 2022-06-03 2022-06-03 Refill Galen, 1.2.840.1 [id number] Methodi 00:00:00 00:00:[address] [place] 3.430.2.7 Hospi ta .3.729009 l .8 2022-05-25 2022-05-25 Patient Reyes, 1.2.840.1 [id number] 9274 Methodi 00:00:00 00:00:00 Outreach Emily 85935.1.1 043 s t 3.430.2.7 Hospit a .3.007864 l .8 2022-05-25 2022-05-25 Patient Reyes, 1.2.840.1 [id number] Methodi 00:00:00 00:00:00 Outreach Emily 39936.1.1 043 s t 3.430.2.7 Hospit a .3.726196 l .8 2022-05-11 2022-05-11 Patient Reyes, 1.2.840.1 [id number] 4414 Methodi 00:00:00 00:00:00 Outreach Emily 89421.1.1 088 s t 3.430.2.7 Hospit a .3.440452 l .8 2022-05-11 2022-05-11 Patient Reyes, 1.2.840.1 [id number] 1545 Methodi 00:00:00 00:00:00 Outreach Emily 04411.1.1 088 s t 3.430.2.7 Hospit a .3.377863 l .8 2022-05-09 2022-05-09 Telephone Galen, 1.2.840.1 [id number] Methodi 00:00:00 00:00:[address] [place] 3.430.2.7 Hospi ta .3.968235 l .8 2022-05-09 2022-05-09 Telephone Mancelona, 1.2.840.1 [id number] Methodi 00:00:00 00:00:[address] [place] 3.430.2.7 Hospi ta .3.567766 l .8 2022-05-09 2022-05-09 Telephone Mancelona, 1.2.840.1 [id number] Methodi 00:00:00 00:00:[address] [place] 3.430.2.7 Hospi ta .3.062565 l .8 2022-05-09 2022-05-09 Telephone Mancelona, 1.2.840.1 [id number] 855 [id number] Methodi 00:00:00 00:00:[address] [place] 3.430.2.7 Hospi ta .3.910222 l .8 2022-05-07 2022-05-07 Refill Galen, 1.2.840.1 [id number] 20183 Methodi 00:00:00 00:00:[address] [place] 3.430.2.7 Hospi ta .3.615780 l .8 2022-05-07 2022-05-07 Refill Galen, 1.2.840.1 [id number] 32306 Methodi 00:00:00 00:00:[address] [place] 3.430.2.7 Hospi ta .3.017519 l .8 2022-04-27 2022-04-27 Patient Reyes, 1.2.840.1 [id number] 1127 Methodi 00:00:00 00:00:00 Outreach Emily 53415.1.1 906 s t 3.430.2.7 Hospit a .3.260231 l .8 2022-04-27 2022-04-27 Patient Reyes, 1.2.840.1 [id number] 1701 Methodi 00:00:00 00:00:00 Outreach Emily 57061.1.1 906 s t 3.430.2.7 Hospit a .3.017886 l .8 2022-04-06 2022-04-06 Patient Reyes, 1.2.840.1 [id number] 2958 Methodi 00:00:00 00:00:00 Outreach Emily 79046.1.1 988 s t 3.430.2.7 Hospit a .3.641625 l .8 2022-04-06 2022-04-06 Patient Reyes, 1.2.840.1 [id number] 9201 Methodi 00:00:00 00:00:00 Outreach Emily 61997.1.1 988 s t 3.430.2.7 Hospit a .3.637120 l .8 2022-03-16 2022-03-16 Orders Elidia Chris 1.2.840.1 [id number] 756 [id number] Methodi 00:00:00 00:00:[address] 3.430.2.7 Hospit a .3.970525 l .8 2022-03-16 2022-03-16 Bj Aaron 1.2.840.1 [id number] 577 [id number] Methodi 00:00:00 00:00:[address] [place] 3.430.2.7 Hospi ta .3.286018 l .8 2022-03-16 2022-03-16 Patient Eric, 1.2.840.1 [id number] 1459 Methodi 00:00:00 00:00:00 Outreach Emily 38159.1.1 189 s t 3.430.2.7 Hospit a .3.538654 l .8 2022-03-16 2022-03-16 Orders Sales, Elidia 1.2.840.1 [id number] Methodi 00:00:00 00:00:[address] 3.430.2.7 Hospit a .3.614706 l .8 2022-03-16 2022-03-16 Telephone Mancelona, 1.2.840.1 [id number] 877 [id number] Methodi 00:00:00 00:00:[address] [place] 3.430.2.7 Hospi ta .3.063943 l .8 2022-03-16 2022-03-16 Patient Eric, 1.2.840.1 [id number] 1245 Methodi 00:00:00 00:00:00 Outreach Emily 73481.1.1 189 s t 3.430.2.7 Hospit a .3.752000 l .8 2022-03-06 2022-03-06 Telephone Mancelona, 1.2.840.1 [id number] 664 [id number] Methodi 00:00:00 00:00:[address] [place] 3.430.2.7 Hospi ta .3.387094 l .8 2022-03-06 2022-03-06 Telephone Mancelona, 1.2.840.1 [id number] 915 [id number] Methodi 00:00:00 00:00:[address] [place] 3.430.2.7 Hospi ta .3.286757 l .8 2022 2022 Patient Reyes, 1.2.840.1 [id number] 0527 Methodi 00:00:00 00:00:00 Outreach Emily 46116.1.1 904 s t 3.430.2.7 Hospit a .3.835261 l .8 2022 2022 Patient Reyes, 1.2.840.1 [id number] 9619 Methodi 00:00:00 00:00:00 Outreach Emily 11719.1.1 904 s t 3.430.2.7 Hospit a .3.870634 l .8 2022-03-01 2022-03-01 Office Adrianna Miranda 1.2.840.1 [id number] [id number] Methodi 10:00:00 14:41:30 [place] B. 19202.1.[address] 3.430.2.7 Hospit a .3.324259 l .8 2022-03-01 2022-03-01 Office Adrianna Miranda 1.2.840.1 [id number] [id number] Methodi 10:00:00 14:41:30 [place] B. 96204.1.[address] 3.430.2.7 Hospit a .3.121787 l .8 2022-03-01 2022-03-01 Office Galen, 1.2.840.1 [id number] 54596 Methodi 10:00:00 10:05:57 Visit Poli 97025.1.[address] [place] 3.430.2.7 Hospi ta .3.803908 l .8 2022-03-01 2022-03-01 Office Galen, 1.2.840.1 [id number] Methodi 10:00:00 10:05:57 Visit Poli 65617.1.[address] [place] 3.430.2.7 Hospi ta .3.401335 l .8 2022-03-01 2022-03-01 Travel 1.2.840.1 1.2.274.261 4863 139212 Methodi 00:00:00 00:00:[address] 3.430.2.7 0.2.7.3.698 Ho spita .3.980527 084.8 l .8 2022-03-01 2022-03-01 Travel 1.2.840.1 1.2.624.094 4557 [id number] Methodi 00:00:00 00:00:[address] 3.430.2.7 0.2.7.3.698 Ho spita .3.112611 084.8 l .8 2022-02-27 2022-02-27 Telephone Galen, 1.2.840.1 [id number] 945 [id number] Methodi 00:00:00 00:00:[address] [place] 3.430.2.7 Hospi ta .3.087989 l .8 2022-02-27 2022-02-27 Telephone Mancelona, 1.2.840.1 [id number] Methodi 00:00:00 00:00:[address] [place] 3.430.2.7 Hospi ta .3.017238 l .8 2022-02-15 2022-02-15 Patient Reyes, 1.2.840.1 [id number] 0600 Methodi 00:00:00 00:00:00 Outreach Emily 76882.1.1 809 s t 3.430.2.7 Hospit a .3.972566 l .8 2022-02-15 2022-02-15 Patient Reyes, 1.2.840.1 [id number] 2151 Methodi 00:00:00 00:00:00 Outreach Emily 64406.1.1 809 s t 3.430.2.7 Hospit a .3.243181 l .8 2022-02-13 2022-02-13 Telephone Theodore, 1.2.840.1 [id number] 21 [id number] Methodi 00:00:00 00:00:[address] 3.430.2.7 Hospit a .3.845118 l .8 2022-02-13 2022-02-13 Telephone Theodore, 1.2.840.1 [id number] 21 [id number] Methodi 00:00:00 00:00:[address] 3.430.2.7 Hospit a .3.508036 l .8 2022-02-03 2022-02-03 Office Miranda Adrianna 1.2.840.1 [id number] Methodi 09:20:00 09:20:[address]062.1.[address] 3.430.2.7 Hospit a .3.693677 l .8 2022-02-03 2022-02-03 Office Adrianna Miranda 1.2.840.1 [id number] [id number] Methodi 09:20:00 09:20:[address]86.[address] 3.430.2.7 Hospit a .3.026137 l .8 2022-02-01 2022-02-01 Patient Reyes, 1.2.840.1 [id number] 6071 Methodi 00:00:00 00:00:00 Outreach Emily 25638.1.1 609 s t 3.430.2.7 Hospit a .3.968808 l .8 2022-02-01 2022-02-01 Patient Reyes, 1.2.840.1 [id number] 3963 Methodi 00:00:00 00:00:00 Outreach Emily 32553.1.1 609 s t 3.430.2.7 Hospit a .3.820814 l .8 2022-01-31 2022-01-31 Refill Galen, 1.2.840.1 [id number] 80783 Methodi 00:00:00 00:00:[address] [place] 3.430.2.7 Hospi ta .3.723888 l .8 2022-01-31 2022[facility]01-[facility] [id number] 05313 54036 Methodi 00:00:00 00:00:[address] [place] 3.430.2.7 Hospi ta .3.635775 l .8 2022-01-30 2022-01-30 [facility] Adrianna Miranda 1.2.840.1 [id number] Methodi 07:38:00 13:41:00 Encounter [address]35.1.[address] 3.430.2.7 Hospit a .3.542580 l .8 2022-01-30 2022-01-30 [facility] Adrianna Miranda 1.2.840.1 [id number] Methodi 07:38:00 13:41:00 Encounter B[address] 61319.1.[address] 3.430.2.7 Hospit a .3.073466 l .8 2022-01-30 2022-01-30 [facility] Adrianna Miranda 1.2.840.1 [id number] Methodi 09:00:00 10:40:[address] 3.430.2.7 Hospit a .3.102840 l .8 2022-01-30 2022-01-30 Surgery Adrianna Miranda 1.2.840.1 [id number] 968 [id number] Methodi 09:00:00 10:40:[address] 3.430.2.7 Hospit a .3.423378 l .8 2022-01-30 2022-01-30 Anesthesia [facility], 1.2.840.1 [id number] 789 [id number] Methodi 08:59:00 10:18:00 Event Abdullahi 14249.1.[address] Robi 3.430.2.7 Hospit a .3.120639 l .8 2022-01-30 2022-01-30 Anesthesia Brannicholas, 1.2.840.1 [id number] 123 [id number] Methodi 08:59:00 10:18:00 Event Abdullahi 94335.1.[address] Robi 3.430.2.7 Hospit a .3.557964 l .8 2022-01-30 2022-01-30 Travel 1.2.840.1 1.2.432.508 4170 [id number] Methodi 00:00:00 00:00:[address] 3.430.2.7 0.2.7.3.698 Ho spita .3.480907 084.8 l .8 2022-01-30 2022-01-30 Travel 1.2.840.1 1.2.145.386 7459 432147 Methodi 00:00:00 00:00:[address] 3.430.2.7 0.2.7.3.698 Ho spita .3.608520 084.8 l .8 2022-01-27 2022-01-27 Patient Eric, 1.2.840.1 [id number] 4059 Methodi 00:00:00 00:00:00 Outreach Emily 94297.1.1 659 s t 3.430.2.7 Hospit a .3.987237 l .8 2022-01-27 2022-01-27 Patient Eric, 1.2.840.1 [id number] 9591 Methodi 00:00:00 00:00:00 Outreach Emily 33051.1.1 659 s t 3.430.2.7 Hospit a .3.664630 l .8 2022-01-25 2022-01-25 Patient Arnold, 1.2.840.1 [id number] 01724 Methodi 00:00:00 00:00:00 Outreach Kathrin 16168.1.[address] 3.430.2.7 Hospit a .3.162634 l .8 2022-01-25 2022-01-25 Patient Arnold, 1.2.840.1 [id number] 90051 Methodi 00:00:00 00:00:00 Outreach Kathrin 75463.1.[address] 3.430.2.7 Hospit a .3.130177 l .8 2022-01-16 2022-01-16 Travel 1.2.840.1 1.2.583.828 4965 796957 Methodi 00:00:00 00:00:[address] 3.430.2.7 0.2.7.3.698 Ho spita .3.828412 084.8 l .8 2022-01-16 2022-01-16 Travel 1.2.840.1 1.2.887.729 3944 063268 Methodi 00:00:00 00:00:[address] 3.430.2.7 0.2.7.3.698 Ho spita .3.175446 084.8 l .8 2022-01-13 2022-01-13 Refill Mancelona, 1.2.840.1 [id number] 59 Methodi 00:00:00 00:00:[address] [place] 3.430.2.7 Hospi ta .3.942062 l .8 2022-01-13 2022-01-13 Refill Galen, 1.2.840.1 [id number] 65756 Methodi 00:00:00 00:00:[address] [place] 3.430.2.7 Hospi ta .3.438938 l .8 2022-01-10 2022-01-10 Bj Jaimes, 1.2.840.1 [id number] Methodi 00:00:00 00:00:[address] 3.430.2.7 Hospit a .3.075065 l .8 2022-01-10 2022-01-10 Zee Jaimes, 1.2.840.1 [id number] 2099 [id number] Methodi 00:00:00 00:00:00 Only Maryanne [address]6873.1.[address] 3.430.2.7 Hospit a .3.456747 l .8 2022-01-10 2022-01-10 Prep for Theodore, 1.2.840.1 [id number] 126 [id number] Methodi 00:00:00 00:00:00 Surgery Maryanne [address]641.1.[address] 3.430.2.7 Hospit a .3.039259 l .8 2022-01-10 2022-01-10 Telephone Theodore, 1.2.840.1 [id number] 21 [id number] Methodi 00:00:00 00:00:[address] 3.430.2.7 Hospit a .3.360244 l .8 2022-01-10 2022-01-10 Orders Theodore, 1.2.840.1 [id number] 2099 958882 Methodi 00:00:00 00:00:00 Only Maryanne 52236.1.[address] 3.430.2.7 Hospit a .3.867292 l .8 2022-01-10 2022-01-10 Prep for Theodore, 1.2.840.1 [id number] 830 [id number] Methodi 00:00:00 00:00:00 Surgery Maryanne [address]458.1.[address] 3.430.2.7 Hospit a .3.143740 l .8 2022-01-09 2022-01-09 Telephone Theodore, 1.2.840.1 [id number] 21 [id number] Methodi 00:00:00 00:00:[address] 3.430.2.7 Hospit a .3.114060 l .8 2022-01-09 2022-01-09 Telephone Theodore, 1.2.840.1 [id number] 21 [id number] Methodi 00:00:00 00:00:[address] 3.430.2.7 Hospit a .3.697670 l .8 2021-12-28 2021-12-28 Travel 1.2.840.1 1.2.909.888 9424 818204 Methodi 00:00:00 00:00:[address] 3.430.2.7 0.2.7.3.698 Ho spita .3.052512 084.8 l .8 2021-12-28 2021-12-28 [facility] GALEN [facility] [id number] 7324 [place] 00:00:00 00:00:[address] POLI [address] 2021-12-28 2021-12-28 Travel 1.2.840.1 1.2.946.732 7150 806253 Methodi 00:00:00 00:00:[address] 3.430.2.7 0.2.7.3.698 Ho spita .3.340696 084.8 l .8 2021-12-23 2021-12-23 Refill Galen, 1.2.840.1 [id number] Methodi 00:00:00 00:00:[address] [place] 3.430.2.7 Hospi ta .3.768695 l .8 2021-12-23 2021-12-23 Orders Mancelona, 1.2.840.1 [id number] Methodi 00:00:00 00:00:00 Only Poli 29072.1.[address] [place] 3.430.2.7 Hospi ta .3.212346 l .8 2021-12-23 2021-12-23 Refill Mancelona, 1.2.840.1 [id number] Methodi 00:00:00 00:00:[address] [place] 3.430.2.7 Hospi ta .3.504175 l .8 2021-12-23 2021-12-23 Orders Mancelona, 1.2.840.1 [id number] Methodi 00:00:00 00:00:00 Only Poli 36791.1.[address] [place] 3.430.2.7 Hospi ta .3.774282 l .8 2021-12-21 2021-12-21 Adrianna Chavez 1.2.840.1 [id number] 462 [id number] Methodi 08:50:00 11:59:46 [address] 25040.1.[address] 3.430.2.7 Hospit a .3.248520 l .8 2021-12-21 2021-12-21 Office Adrianna Miranda 1.2.840.1 [id number] 597 [id number] Methodi 08:50:00 11:59:46 [address]. 80645.1.[address] 3.430.2.7 Hospit a .3.416725 l .8 2021-12-21 2021-12-21 Office Galen, 1.2.840.1 [id number] 448 Methodi 10:00:00 10:41:23 Visit Poli 35299.1.[address] [place] 3.430.2.7 Hospi ta .3.019222 l .8 2021-12-21 2021-12-21 Office Galen, 1.2.840.1 [id number] 448 Methodi 10:00:00 10:41:23 Visit Poli 82176.1.[address] [place] 3.430.2.7 Hospi ta .3.769344 l .8 2021-12-21 2021-12-21 Travel 1.2.840.1 1.2.625.026 7903 506049 Methodi 00:00:00 00:00:[address] 3.430.2.7 0.2.7.3.698 Ho spita .3.776796 084.8 l .8 2021-12-21 2021-12-21 Travel 1.2.840.1 1.2.527.561 1923 638282 Methodi 00:00:00 00:00:[address] 3.430.2.7 0.2.7.3.698 Ho spita .3.092995 084.8 l .8 2021-12-17 2021-12-17 Refill Galen, 1.2.840.1 576140911 02713 Methodi 00:00:00 00:00:[address] [place] 3.430.2.7 Hospi ta .3.451993 l .8 2021-12-17 2021-12-17 Refill Galen, 1.2.840.1 [id number] 90754 Methodi 00:00:00 00:00:[address] [place] 3.430.2.7 Hospi ta .3.423992 l .8 2021-12-16 2021-12-16 Telephone Theodore, 1.2.840.1 [id number] Methodi 00:00:00 00:00:[address] 3.430.2.7 Hospit a .3.640511 l .8 2021-12-16 2021-12-16 Telephone Theodore, 1.2.840.1 [id number] [id number] Methodi 00:00:00 00:00:[address] 3.430.2.7 Hospit a .3.720214 l .8 2021-12-14 2021-12-14 Outpatient ADRIANNA MIRANDA [facility] 2099 053200 [place] 00:00:00 00:00:[address] 2021-12-07 2021-12-07 Office Adrianna Miranda 1.2.840.1 [id number] 153 [id number] Methodi 10:20:00 11:37:02 [address] 47134.1.[address] 3.430.2.7 Hospit a .3.915263 l .8 2021-12-07 2021-12-07 Office Adrianna Miranda 1.2.840.1 [id number] 266 2802364 Methodi 10:20:00 11:37:02 [address] 78651.1.[address] 3.430.2.7 Hospit a .3.272423 l .8 2021-12-07 2021-12-07 Travel 1.2.840.1 1.2.014.063 7897 983441 Methodi 00:00:00 00:00:[address] 3.430.2.7 0.2.7.3.698 Ho spita .3.847161 084.8 l .8 2021-12-07 2021-12-07 Travel 1.2.840.1 1.2.326.250 4506 287821 Methodi 00:00:00 00:00:[address] 3.430.2.7 0.2.7.3.698 Ho spita .3.564368 084.8 l .8 2021-11-29 2021-11-29 Travel 1.2.840.1 1.2.661.743 7327 138922 Methodi 00:00:00 00:00:[address] 3.430.2.7 0.2.7.3.698 Ho spita .3.034315 084.8 l .8 2021-11-29 2021-11-29 Travel 1.2.840.1 1.2.994.090 2663 584009 Methodi 00:00:00 00:00:[address] 3.430.2.7 0.2.7.3.698 Ho spita .3.472456 084.8 l .8 2021-11-16 2021-11-16 Refill Mancelona, 1.2.840.1 [id number] Methodi 00:00:00 00:00:[address] [place] 3.430.2.7 Hospi ta .3.660945 l .8 2021-11-16 2021-11-16 Refill Mancelona, 1.2.840.1 [id number] Methodi 00:00:00 00:00:[address] [place] 3.430.2.7 Hospi ta .3.282402 l .8 2021-10-26 2021-10-26 Telephone Mancelona, 1.2.840.1 [id number] 031 0075040 Methodi 00:00:00 00:00:[address] [place] 3.430.2.7 Hospi ta .3.454994 l .8 2021-10-26 2021-10-26 Telephone Galen, 1.2.840.1 [id number] 726 0364595 Methodi 00:00:00 00:00:[address] [place] 3.430.2.7 Hospi ta .3.595341 l .8 2021-10-24 2021-10-24 Telephone Galen, 1.2.840.1 [id number] 859 9747388 Methodi 00:00:00 00:00:[address] [place] 3.430.2.7 Hospi ta .3.407073 l .8 2021-10-24 2021-10-24 Telephone Mancelona, 1.2.840.1 [id number] 144 9138189 Methodi 00:00:00 00:00:[address] [place] 3.430.2.7 Hospi ta .3.518048 l .8 2021-10-21 2021-10-21 Telephone Mancel[place], 1.2.840.1 462740415 451 5600315 Methodi 00:00:00 00:00:[address] [place] 3.430.2.7 Hospi ta .3.322248 l .8 2021-10-21 2021-10-21 Telephone Mancel[place], 1.2.840.1 794083051 084 3190985 Methodi 00:00:00 00:00:[address] [place] 3.430.2.7 Hospi ta .3.037483 l .8 2021-10-20 2021-10-20 Telephone Mancel[place], 1.2.840.1 774430908 771 9840221 Methodi 00:00:00 00:00:[address] [place] 3.430.2.7 Hospi ta .3.960798 l .8 2021-10-20 2021-10-20 Telephone Galen, 1.2.840.1 069198534 253 3971367 Methodi 00:00:00 00:00:[address] [place] 3.430.2.7 Hospi ta .3.727568 l .8 2021-10-11 2021-10-11 Telephone Mancelona, 1.2.840.1 289810114 521 2537438 Methodi 00:00:00 00:00:[address] [place] 3.430.2.7 Hospi ta .3.225496 l .8 2021-10-11 2021-10-11 Telephone Mancel[place], 1.2.840.1 [id number] 887 4929768 Methodi 00:00:00 00:00:[address] [place] 3.430.2.7 Hospi ta .3.170696 l .8 2021-10-06 2021-10-06 Office Mancelona, 1.2.840.1 [id number] 14153 Methodi 15:15:00 15:51:36 Visit Poli 91195.1.[address] [place] 3.430.2.7 Hospi ta .3.292476 l .8 2021-10-06 2021-10-06 Office Mancelona, 1.2.840.1 711137301 27002 Methodi 15:15:00 15:51:36 Visit Poli 49820.1.[address] [place] 3.430.2.7 Hospi ta .3.919107 l .8 2021-10-06 2021-10-06 Travel 1.2.840.1 1.2.779.092 4576 863269 Methodi 00:00:00 00:00:[address] 3.430.2.7 0.2.7.3.698 Ho spita .3.993830 084.8 l .8 2021-10-06 2021-10-06 Travel 1.2.840.1 1.2.977.561 6870 865380 Methodi 00:00:00 00:00:[address] 3.430.2.7 0.2.7.3.698 Ho spita .3.491982 084.8 l .8 2021-10-04 2021-10-04 Telephone Mancelona, 1.2.840.1 [id number] 054 9415817 Methodi 00:00:00 00:00:[address] [place] 3.430.2.7 Hospi ta .3.108614 l .8 2021-10-04 2021-10-04 Telephone Mancelona, 1.2.840.1 [id number] 492 2601998 Methodi 00:00:00 00:00:[address] [place] 3.430.2.7 Hospi ta .3.410036 l .8 2021-10-03 2021-10-03 Telephone Garcia, 1.2.840.1 808434764 673 8206546 Methodi 00:00:00 00:00:[address] 3.430.2.7 Hospit a .3.224433 l .8 2021-10-03 2021-10-03 [facility], 1.2.840.1 [id number] 237 3426886 Methodi 00:00:00 00:00:[address] 3.430.2.7 Hospit a .3.166636 l .8 2021-09-28 2021-09-28 Office Adrianna Miranda 1.2.840.1 [id number] 678 1466604 Methodi 14:30:00 16:45:56 [address] B. [address]3848.1.[address] 3.430.2.7 Hospit a .3.455774 l .8 2021-09-282021-09-28 Office Adrianna Miranda 1.2.840.1 [id number] 744 [id number] Methodi 14:30:00 16:45:56 Visit B. [address]4592.1.[address] 3.430.2.7 Hospit a .3.446049 l .8 2021-09-28 2021-09-28 Travel 1.2.840.1 1.2.213.281 0373 087311 Methodi 00:00:00 00:00:[address] 3.430.2.7 0.2.7.3.698 Ho spita .3.454024 084.8 l .8 2021-09-28 2021-09-28 Travel 1.2.840.1 1.2.656.079 3224 138350 Methodi 00:00:00 00:00:[address] 3.430.2.7 0.2.7.3.698 Ho spita .3.088241 084.8 l .8 2021-09-28 2021-09-28 Outpatient ADRIANNA MIRANDA [facility] 2100 692259 [place] 00:00:00 00:00:[address] 2021-09-19 2021-09-19 Travel 1.2.840.1 1.2.493.523 2185 388360 Methodi 00:00:00 00:00:[address] 3.430.2.7 0.2.7.3.698 Ho spita .3.679218 084.8 l .8 2021-09-12 2021-09-12 Travel 1.2.840.1 1.2.560.317 4926 093098 Methodi 00:00:00 00:00:[address] 3.430.2.7 0.2.7.3.698 Ho spita .3.110066 084.8 l .8 2021-08-15 2021-08-15 Telephone Galen, 1.2.840.1 [id number] 992 8428404 Methodi 00:00:00 00:00:[address] [place] 3.430.2.7 Hospi ta .3.668487 l .8 2021-07-04 2021-07-04 Telephone Galen, 1.2.840.1 [id number] 627 2660483 Methodi 00:00:00 00:00:[address] [place] 3.430.2.7 Hospi ta .3.854102 l .8 2021-06-27 2021-06-27 Telephone Galen, 1.2.840.1 [id number] 979 0877694 Methodi 00:00:00 00:00:[address] [place] 3.430.2.7 Hospi ta .3.053586 l .8 2021-06-21 2021-06-21 Telephone Mancelona, 1.2.840.1 [id number] 198 4204389 Methodi 00:00:00 00:00:[address] [place] 3.430.2.7 Hospi ta .3.729462 l .8 2021-06-19 2021-06-19 Refill Galen, 1.2.840.1 367303521 25993 47202 Methodi 00:00:00 00:00:[address] [place] 3.430.2.7 Hospi ta .3.759468 l .8 2021-05-31 2021-05-31 Telephone Mancelona, 1.2.840.1 [id number] 913 2575809 Methodi 00:00:00 00:00:[address] [place] 3.430.2.7 Hospi ta .3.367225 l .8 2021-05-30 2021-05-30 Telephone Mancelona, 1.2.840.1 [id number] 668 8184223 Methodi 00:00:00 00:00:[address] [place] 3.430.2.7 Hospi ta .3.551215 l .8 2021-04-22 2021-04-22 Telephone Mancelona, 1.2.840.1 694048210 405 6336794 Methodi 00:00:00 00:00:[address] [place] 3.430.2.7 Hospi ta .3.222477 l .8 2021-04-15 2021-04-15 Refill Galen, 1.2.840.1 302353731 54351 Methodi 00:00:00 00:00:[address] [place] 3.430.2.7 Hospi ta .3.658741 l .8 2021-04-12 2021-04-12 Telephone Galen, 1.2.840.1 661199317 780 2790856 Methodi 00:00:00 00:00:[address] [place] 3.430.2.7 Hospi ta .3.123991 l .8 2021-04-04 2021-04-04 Orders Galen, 1.2.840.1 [id number] Methodi 00:00:00 00:00:00 Only Poli 91420.1.[address] [place] 3.430.2.7 Hospi ta .3.637771 l .8 2021-04-04 2021-04-04 Orders Mancelona, 1.2.840.1 [id number] Methodi 00:00:00 00:00:00 Only Poli 89842.1.[address] [place] 3.430.2.7 Hospi ta .3.962350 l .8 2021-03-31 2021-03-31 Lab Galen, 1.2.840.1 642762183 24139 Methodi 10:00:00 10:05:[address] [place] 3.430.2.7 Hospi ta .3.532904 l .8 2021-03-312021-03-31 Office Mancelona, 1.2.840.1 600766815 92974 Methodi 09:15:00 09:51:04 Visit Poli 05440.1.[address] [place] 3.430.2.7 Hospi ta .3.310176 l .8 2021-03-31 2021-03-31 Travel 1.2.840.1 1.2.308.699 9841 831416 Methodi 00:00:00 00:00:[address] 3.430.2.7 0.2.7.3.698 Ho spita .3.929250 084.8 l .8 2021-03-30 2021-03-30 Telephone Mancelona, 1.2.840.1 [id number] 642 7950410 Methodi 00:00:00 00:00:[address] [place] 3.430.2.7 Hospi ta .3.653475 l .8 2021-03-29 2021-03-29 Travel 1.2.840.1 1.2.943.186 4566 167690 Methodi 00:00:00 00:00:[address] 3.430.2.7 0.2.7.3.698 Ho spita .3.242272 084.8 l .8 2021 2021 Refill Mancelona, 1.2.840.1 [id number] 00055 Methodi 00:00:00 00:00:[address] [place] 3.430.2.7 Hospi ta .3.772357 l .8 2021-02-23 2021-02-23 Telephone Mancelona, 1.2.840.1 [id number] 787 0882749 Methodi 00:00:00 00:00:[address] [place] 3.430.2.7 Hospi ta .3.634095 l .8 2021-02-07 2021-02-07 Telephone Galen, 1.2.840.1 279224284 428 [id number] Methodi 00:00:00 00:00:[address] [place] 3.430.2.7 Hospi ta .3.341956 l .8 2021-02-02 2021-02-02 Refill Galen, 1.2.840.1 130182639 68488 74252 Methodi 00:00:00 00:00:[address] [place] 3.430.2.7 Hospi ta .3.007440 l .8 2021-01-31 2021-01-31 Telephone Galen, 1.2.840.1 882267788 122 3544167 Methodi 00:00:00 00:00:[address] [place] 3.430.2.7 Hospi ta .3.817222 l .8 2021-01-14 2021-01-14 Outpatient GALEN, [facility] [id number] [place] 00:00:00 00:00:00 POLI [address] 2021-01-05 2021-01-05 Outpatient GALEN, [facility] [id number] [place] 00:00:00 00:00:00 POLI [address] 2020-12-28 2020-12-28 [facility] [id number] [place] 00:00:00 00:00:00 POLI [address] 2020-12-21 2020-12-21 [facility] [id number] [place] 00:00:00 00:00:00 POLI [address] 2020-12-21 2020-12-21 Outpatient GALEN, [facility] [id number] [place] 00:00:00 00:00:00 POLI [address] 2020-11-05 2020-11-05 Outpatient GALEN, [facility] [id number] 2492 [place] 00:00:00 00:00:00 POLI [address] 2020-10-25 2020-10-25 Outpatient GALEN [facility] [id number] [place] 00:00:00 00:00:00 POLI 117 Metho di 2020-08-24 2020-08-24 Outpatient OBDULIA MHROCHELLE [facility] 7503 [facility] 11:43:00 12:55:00 NERISSA 2020-07-15 2020-07-15 Outpatient GALEN [facility] [id number] [place] 00:00:00 00:00:00 POLI 251 Metho di 2020-07-15 2020-07-15 Outpatient GALEN [facility] [id number] 9690 [place] 00:00:00 00:00:00 POLI 087 Metho di 2020-07-15 2020-07-15 Outpatient GALEN [facility] [id number] [place] 00:00:00 00:00:00 POLI 809 Metho di 2020-07-14 2020-07-14 Outpatient NATHANRADHAY [facility] 2100 [id number] [place] 00:00:00 00:00:00 604 Method i 2020-07-14 2020-07-14 Outpatient RADHA MIRANDAY [facility] 2100 [id number] [place] 00:00:00 00:00:00 425 Method i 2020-03-01 2020-03-01 Outpatient GALEN [facility] [id number] 1675 [place] 00:00:00 00:00:00 POLI 480 Metho di 2019-12-17 2019-12-17 Outpatient MIRANDARADHAY [facility] 2100 [id number] [place] 00:00:00 00:00:00 172 Method i 2019-12-09 2019-12-09 Outpatient GALEN [facility] [id number] 7926 [place] 00:00:00 00:00:00 POLI 390 Metho di 2019-12-09 2019-12-09 Outpatient GALEN [facility] [id number] [place] 00:00:00 00:00:00 POLI 881 Metho di 2019-09-25 2019-09-25 Discharged GRECIA LÓPEZ [id number] [facility] 00:55:00 13:28:00 Inpatient TPAT Jaun 45 ([facility] na LIVE HCIS 2019-09-25 2019-09-25 Discharged ER [facility] [id number] [facility] 00:55:00 00:55:00 Inpatient KARI [facility] ([facility] 2019-08-26 2019-08-26 [facility] [id number] [place] 00:00:00 00:00:00 POLI [address] 2019-07-29 2019-07-29 Outpatient KARLA SchroederCL OUTD [id number] 2000 [facility] 12:10:00 12:10:00 Robi 89 [facility] 2019-07-29 2019-07-29 Outpatient EL KARLA SchroederWU 3DAY [id number] [facility] 00:00:00 00:00:[address] [facility] 2019-07-19 2019-07-19 Outpatient WenceslaocalebKARLA rodriguezWU SURG [id number] [facility] 12:00:00 12:00:[address] [facility] 2019-05-21 2019-05-21 Outpatient [facility] [id number] [place] 00:00:00 00:00:00 POLI [address] 2019-04-21 2019-04-21 Outpatient [facility] 7502 [facility] 11:41:00 11:41:00 Results Test Description Test Time Test Comments Results Result Comments Source FREE T4 2022-08-16 05:47:50 Test Item Value Reference Range Interpretation Comme nts FREE T4 (test code = 1.45 See_Comment [Autom ated message] The system [id number]) which generated this result transmitted ref erence range: 0.78 - 2.20 ng/dL:. The reference range was not u sed to interpret this result as normal/abnormal. Lab Interpretation (test code = Normal 21564-0) [facility]. METABOLIC PANEL (02943)2022-08-14 00:35:15 Test Item Value Reference Range Interpretation Comments NA (test code = 138 mmol/L 135-145 9862273836) K (test code = 4.2 mmol/L 3.5-5.0 8061286438) CL (test code = 101 mmol/L 98-108 5725644592) CO2 TOTAL (test code = 30 mmol/L 23-31 7226838854) AGAP (test code = 7 2-16 3811542438) BUN (test code = 36 mg/dL 7-23 H 5312823183) GLUCOSE (test code = 82 mg/dL 70-110 5429367438) CREATININE (test code = 1.27 mg/dL 0.50-1.04 H 4706689723) TOTAL BILI (test code = 0.9 mg/dL 0.1-1.7 0872406553) CALCIUM (test code = 10.6 mg/dL 8.6-10.6 3837141078) T PROTEIN (test code = 6.5 g/dL 6.3-8.2 1366521588) ALBUMIN (test code = 4.1 g/dL 3.5-5.0 2027062340) ALK PHOS (test code = 37 U/L 34-122 1526553543) ALTv (test code = 22 U/L 5-35 1742-6) AST(SGOT) (test code = 33 U/L 13-40 3648657099) eGFR (test code = 39.9 mL/min/1.73m2 8763951250) BANDAR (test code = BANDAR) Association of Glomerular Filtration Rate (GFR) and Staging of Kidney Disease* + --+ --+ ------+| GFR (mL/min/1.73 m2) ?| With Kidney Damage ?| ?Without Kidney Damage+ --------+ --------+ +| ?>90 ?| ?Stage one ?| ? Normal ?+ ---+ ---+ -------+| ?60-89 ?| ?Stage two ?| ? Decreased GFR ? + --+ --+ ------+| ?30-59 ?| ?Stage three ?| ? Stage three ? + --+ --+ ------+| ?15-29 ?| ?Stage four ? | ? Stage four ?+ ---+ ---+ -------+| ?<15 (or dialysis) ? ?| ?Stage five ? | ? Stage five ?+ ---+ ---+ -------+ *Each stage assumes the associated GFR level has been in effect for at least three months. ?Stages 1 to 5, with or without kidney disease, indicate chronic kidney disease. Notes: Determination of stages one and two (with eGFR >59mL/min/1.73 m2) requires estimation of kidney damage for at least three months as defined by structural or functional abnormalities of the kidney, manifested by either:Pathological abnormalities or Markers of kidney damage (including abnormalities in the composition of the blood or urine or abnormalities in imaging tests). Lab Interpretation Abnormal (test code = 59056-1) [id number] 00:01:31 Test Item Value Reference Range Interpretation Comments TROPONIN I (test code = 0.023 ng/mL <=0.034 [id number]) BANDAR (test code = BANDAR) Reference (Normal) Range (defined by the 99th percentile reference limit): <= 0.034 ng/mL Note: Cardiac troponin begins to rise 3-4 hours after the onset of ischemia. Repeat in 4-6 hours if the sample was drawn within 3-4 hours of the onset of the symptom and found normal. Diagnosis of myocardial injury is made with acute changes in cTn concentrations with at least one serial sample above the 99th percentile upper reference limit (URL), taken together with the patient's clinical presentation. Biotin has been reported to cause a negative bias, interpret results relative to patient's use of biotin. Lab Interpretation Normal (test code = 58979-1) [facility] [id number] 00:00:16 Test Item Value Reference Range Interpretation Comments NT-proBNP (test code = 408 pg/mL <=450 [id number]) BANDAR (test code = BANDAR) Biotin has been reported to cause a negative bias, interpret results relative to patient's use of biotin. Lab Interpretation (test Normal code = 13322-0) [facility]AL[facility]YLATE2023-05-21 23:50:54 SALICYLATE<10mg/L08/13/2022 6:50 PM [facility] LABORATORYTherapeutic Range: ? Analgesic and Antipyretic Use ? 20- 100 mg/L ? ? Anti-Inflammatory Use ? 100-250 mg/L Toxic Range: ? Greater than 300 mg/LUnB[facility]ieETHANOL2023-05-21 23:50:49ALCOHOL<10mg/dL08/13/2022 6:50 PM [facility]AN[facility]<10 Tcuvcebv37-570 Toxic>100 Depression of COUNTY ASSESSOR>400 [facility] WITH DIFF 2022-08-13 23:44:13 Test Item Value Reference Range Interpretation Comments WBC (test code = 5.56 See_Comment [Automated 3890-2) message] The sy stem which generated this result transmitted reference range : 4.30 - 11.10 10*3/?L. The reference range was not used to interpret this result as normal/abnormal . RBC (test code = 4.70 See_Comment [Automated 019-8) message] The sy stem which generated this result transmitted reference range : 3.93 - 5.25 10*6/?L. The reference range was not used to interpret this result as normal/abnormal . HGB (test code = 15.1 g/dL 11.6-15.0 H 718-7) HCT (test code = 44.3 % 35.7-45.2 4544-3) MCV (test code = 94.3 fL 80.6-95.5 787-2) MCH (test code = 32.1 pg 25.9-32.8 785-6) MCHC (test code = 34.1 g/dL 31.6-35.1 786-4) RDW-SD (test code = 48.9 fL 39.0-49.9 83318-4) RDW-CV (test code = 14.1 % 12.0-15.5 788-0) PLT (test code = 298 See_Comment [Automated 777-3) message] The sy stem which generated this result transmitted reference range : 166 - 358 10*3/ ?L. The reference r john was not used to interpret this result as normal/abnormal . MPV (test code = 10.5 fL 9.5-12.9 57039-2) NRBC/100 WBC (test 0.0 See_Comment [Automat ed code = [id number]) message] The system which generated this result transmitted reference range : 0.0 - 10.0 /100 WBCs. The refer ence range was not u sed to interpret th is result as normal/abnormal . NRBC x10^3 (test code See_Comment [Auto mated = 3613343346) message] The s ystem which generated this result transmitted reference range : 10*3/?L. The reference range was not used to interpret this result as normal/abnormal . GRAN MAT (NEUT) % 58.6 % (test code = 770-8) IMM GRAN % (test code 0.40 % = 5345856733) LYMPH % (test code = 26.4 % 736-9) MONO % (test code = 8.5 % 5905-5) EOS % (test code = 5.0 % 713-8) BASO % (test code = 1.1 % 706-2) GRAN MAT x10^3(ANC) 3.26 10*3/uL 1.88-7.09 (test code = 5863935326) IMM GRAN x10^3 (test 0.00-0.06 code = 0737653266) LYMPH x10^3 (test code 1.47 10*3/uL 1.32-3.29 = 731-0) MONO x10^3 (test code 0.47 10*3/uL 0.33-0.92 = 742-7) EOS x10^3 (test code = 0.28 10*3/uL 0.03-0.39 711-2) BASO x10^3 (test code 0.06 10*3/uL 0.01-0.07 = 704-7) Lab Interpretation Abnormal (test code = 38447-0) [facility] [id number] 16:16:00 Test Item Value Reference Range Interpretation Comments POC glucose (test 90 mg/dL 65-99 Registered Nurse Nursery N roberto: Green code = 24518-9) IngridDevice ID: [id number] able: [facility] Notified RNChar table: No Action Needed [facility] [id number] 16:16:00 Test Item Value Reference Range Interpretation Comments POC glucose (test 90 mg/dL 65-99 Registered Nurse Nursery N roberto: Green code = 29215-9) IngridDevice ID: [id number] able: [facility] [facility] Notified RNChar table: No Action Needed [facility] [id number] 16:16:00 Test Item Value Reference Range Interpretation Comments POC glucose (test 90 mg/dL 65-99 Registered Nurse Nursery N roberto: Green code = 31356-3) Acosta ID: [id number] able: [facility] Notified RNChar table: No Action Needed [facility] [id number] 13:06:00 Test Item Value Reference Interpretation Comments Range Glucose (test code 117 mg/dL 65-99 H Fasting reference = 2345-7) interval For so meone without known diabetes, a glu cose valuebetween 10 0 and 125 mg/dL is consistent withprediabetes and should be confi rmed with afollow-up test. BUN (test code = 17 mg/dL 10-17 3094-0) Creatinine (test 0.89 mg/dL 0.60-0.95 code = 2160-0) eGFR (test code = 63 See_Comment The eGFR i s based on 8257) the CKD-EPI 202 1 equation. To calculate the n ew eGFR from a pre vious Creatinine or Cystatin Cresul t, go to https://www.kid raymond.o rg/professional s/kdo qi/gfr%5Fcalcul ator [Automated mess age] The system Shipey generated this result transmit danielle reference range [...] . Sodium (test code = 142 mmol/L 647-603 7775-2) Potassium (test 3.8 mmol/L 3.5-5.3 code = 2823-3) Chloride (test code 100 mmol/L 98-110 = 2075-0) CO2 (test code = 32 mmol/L 20-32 2027-) Calcium (test code 10.4 mg/dL 8.6-10.4 = 17679-4) Protein (test code 7.4 g/dL 6.1-8.1 = 2885-2) Albumin, S (test 4.8 g/dL 3.6-5.1 code = 1751-7) Globulin, total 2.6 See_Comment [Automated message] (test code = [place] 16124-8) generated this result transmit danielle reference range : 1.9 - 3.7 g/dL (merissa c). The reference r john was not used to interpret this result as normal/abnormal . Albumin/globulin 1.8 See_Comment [Automated message] ratio (test code = The syste m which 1759-0) generated this result transmit danielle [...] RAC) Organization Information: Site ID: RGA Name: [facility] Address: [address] [place] [phone] Director: Robi Rodas Lab Interpretation Abnormal (test code = 34301-2) [facility] [id number] 13:06:00 Test Item Value Reference Range Interpretation Comments Cholesterol, total 202 mg/dL <=200 H (test code = 2093-3) HDL cholesterol 62 mg/dL See_Comment [Automated (test code = 2084-9) message ] The system which generated this result transmitted reference range : > OR = 50. The reference range was not used to interpret this result as normal/abnormal . Triglycerides (test 113 mg/dL <=150 code = 2571-8) LDL cholesterol 118 mg/dL (calc) H Reference ra nge: calculated (test <100 Desira ble code = 99511-8) range <100 m g/dL for primary prevention; <70 mg/dL for patients with C HD or diabetic patients with > or = 2 CHD risk factors. LDL-C is now calculated using the Geoff-Lake calculation, which is a validated novel method providin g better accuracy than the Friedewald equation in the estimation of LDL-C. Geoff S S et al. MARY. 2013;310(19): 3831-5211 (http://educati on .Qteros .com/faq/JIM183 ) Cholesterol/HDL 3.3 See_Comment [Automated ratio (test code = message] The 9830-1) system which generated this result transmitted reference range : <5.0 (calc). Th e reference range was not used to interpret this result as normal/abnormal . Non-HDL cholesterol 140 See_Comment H For char ents with (test code = diabetes plus 1 52927-7) major ASCVD ris k factor, treatin g [...] RAC) Organization Information: Site ID: RGA [facility]: [facility] Address: [address] [place] [phone] Director: Robi Rodas Lab Interpretation Abnormal (test code = 84883-7) [facility]Hemoglobin [id number] 13:06:00 Test Item Value Reference Range Interpretation [...] specif ic patient populat ions. Standards of Ri dical Care in Diabetes(ADA). [Automated mess age] The system whic h generated this result transmitted ref erence range: <5.7 % o f total Hgb. The reference range was not used to int erpret this result as normal/abnormal . BANDAR (test code = FASTING:YES BANDAR) FASTING: YES RAC (test code = Performing RAC) Organization Information: Site ID: A Name: [facility] Address: [address] [place] [address] Director: Robi Rodas [facility] CampusThyroid stimulating [id number] 13:06:00 Test Item Value Reference Range Interpretation Comments TSH (test code = 0.17 See_Comment L [Automated 8296-3) message] The system which generated this result transmitted reference range : 0.40 - 4.50 mIU/L. The reference range was not used to interpret this result as normal/abnormal . BANDAR (test code = FASTING:YES BANDAR) FASTING: YES RAC (test code = Performing RAC) Organization Information: Site ID: [facility] Name: [facility] Address: [address] [place] [address] Director: Robi Rodas Lab Interpretation Abnormal (test code = 37025-6) [facility] with platelet and tqdzntjkaqlv7163-58-48 13:06:00 Test Item Value Reference Range Interpretation Comments WBC (test code = 10.1 See_Comment [Automated 9499-2) message] The system which generated this result transmitted reference range : 3.8 - 10.8 Thousand/uL. Th e reference range was not used to interpret this result as normal/abnormal . RBC (test code = 4.24 See_Comment [Automated 861-8) message] The system which generated this result [...] RAC) Organization Information: Site ID: A [facility]: [facility] Address: [address] [place] [address] Director: Robi Rodas Lab Interpretation Abnormal (test code = 18039-8) [facility] HospitalUrinalysis, automated with plrqhbults1737-82-76 13:06:00 Test Item Value Reference Range Interpretation Comments Color, UA (test code YELLOW YELLOW = 5778-6) Appearance (test CLEAR CLEAR code = 5767-9) Specific gravity, 1.013 1.001-1.035 urine (test code = 5811-5) pH, urine (test code 7.5 5.0-8.0 = 5803-2) Glucose, urine (test NEGATIVE NEGATIVE code = 10565-8) Bilirubin, UA (test NEGATIVE NEGATIVE code = 5770-3) Ketones, UA (test NEGATIVE NEGATIVE code = 2514-8) Occult blood, urine NEGATIVE NEGATIVE (test code = 5794-3) Protein, UA (test TRACE NEGATIVE A code = 11674-3) Nitrite, UA (test NEGATIVE NEGATIVE code = [...] code = NONE SEEN See_Comment [Autom ated 76264-4) message] The system which generated this result transmitted reference range : < OR = 2 /HPF. The reference range was not used to interpr et this result as normal/abnormal . Squamous epithelial 0-5 See_Comment [Automa danielle cells, UA (test code message ] The = 12333-7) system which generated this result transmitted reference [...] RAC) Organization Information: Site ID: JACKA Name: [facility] Address: [address] [place] [phone] Director: Robi Rodas Lab Interpretation Abnormal (test code = 42797-6) [facility] CampusVitamin D 25 hydroxy [id number] 13:06:00 Test Item Value Reference Range Interpretation Comments Vitamin D, 71 ng/mL 30-100 Vitamin D Statu s 25-hydroxy (test 25-OH Vitam in D: code = 1988-05) Deficiency: < 20 ng/mLInsufficie ncy : 20 [...] please refer to http://educatio n.Q uestDiagnostics .co m/faq/ZTW651 (T his link is being provided for informational/e sunil ational purpose s only.) BANDAR (test code = FASTING:YES FASTING: BANDAR) YES RAC (test code = Performing RAC) Organization Information: Site ID: JACKA Name: [facility] Address: [address] [place] [phone] Director: Robi Rodas [facility]Com[facility] metabolic [id number] 13:06:00 Test Item Value Reference Interpretation Comments [...] qi/gfr%5Fcalcul ator [Automated mess age] The system Shipey generated this result transmit danielle reference range : > OR = 60 mL/min/1.73m2. The reference range was not used to interpret this result as normal/abnormal . BUN/creatinine NOT APPLICABLE See_Comment [Automated message] ratio (test code = The [employer] which 3097-3) generated this result transmit danielle reference range : 6 - 22 (calc). The reference range was not used to interpret this result as normal/abnormal . Sodium (test code = 142 mmol/L 831-505 1615-2) Potassium (test 3.8 mmol/L 3.5-5.3 code = 2823-3) Chloride (test code 100 mmol/L 98-110 = 2075-0) CO2 (test code = 32 mmol/L 20-32 2027-) Calcium (test code 10.4 mg/dL 8.6-10.4 = 50968-7) Protein (test code 7.4 g/dL 6.1-8.1 = 2885-2) Albumin, S (test 4.8 g/dL 3.6-5.1 code = 1751-7) Globulin, total 2.6 See_Comment [Automated message] (test code = The system Shipey 76761-5) generated this result transmit danielle reference range : 1.9 - 3.7 g/dL (merissa c). The reference r john was not used to interpret this result as normal/abnormal . Albumin/globulin 1.8 See_Comment [Automated message] ratio (test code = [employer] which 1759-0) generated this result transmit danielle [...] RAC) Organization Information: Site ID: RGA Name: [facility] Lab Address: [address] [place] [phone] Director: Robi Rodas Lab Interpretation Abnormal (test code = 08885-2) [facility] [id number] 13:06:00 Test Item Value Reference Range Interpretation Comments Cholesterol, total 202 mg/dL <=200 H (test code = 2093-3) HDL cholesterol 62 mg/dL See_Comment [Automated (test code = 5-9) message ] The system which generated this result transmitted reference range : > OR = 50. The reference range was not used to interpret this result as normal/abnormal . Triglycerides (test 113 mg/dL <=150 code = 2571-8) LDL cholesterol 118 mg/dL (calc) H Reference ra nge: calculated (test <100 Desira ble code = 73548-5) range <100 m g/dL for primary prevention; <70 mg/dL for patients with C HD or diabetic patients with > or = 2 CHD risk factors. LDL-C is now calculated using the Geoff-Jaya calculation, which is a validated novel method providin g better accuracy than the Friedewald equation in the estimation of LDL-C. Geoff S S et al. MARY. 2013;310(19): 0624-5811 (http://educati on .Active EndpointsDiagnostShave Club .com/faq/ZPT832 ) Cholesterol/HDL 3.3 See_Comment [Automated ratio (test code = message] The 9830-1) system which generated this result transmitted reference range : <5.0 (calc). Th e reference range was not used to interpret this result as normal/abnormal . Non-HDL cholesterol 140 See_Comment H For char ents with (test code = diabetes plus 1 57175-2) major ASCVD ris k factor, treatin g [...] RAC) Organization Information: Site ID: SAL Name: [facility] Lab Address: [address] [place], [place] [address] Director: Robi Rodas Lab Interpretation Abnormal (test code = 72052-1) [facility] CampusHemoglobin [id number] 13:06:00 Test Item Value Reference Range Interpretation [...] in Diabetes(ADA). [Automated mess age] The system Shipey generated this result transmitted ref erence range: <5.7 % o f total Hgb. The reference range was not used to int erpret this result as normal/abnormal . BANDAR (test code = FASTING:YES BANDAR) FASTING: YES RAC (test code = Performing RAC) Organization Information: Site ID: SAL Name: [facility] Lab Address: [address] [place] [address] Director: Robi Rodas [facility] CampusThyroid stimulating dmxwryz0635-98-01 13:06:00 Test Item Value Reference Range Interpretation Comments TSH (test code = 0.17 See_Comment L [Automated 3016-3) message] The system which generated this result transmitted reference range : 0.40 - 4.50 mIU/L. The reference range was not used to interpret this result as normal/abnormal . BANDAR (test code = FASTING:YES BANDAR) FASTING: YES RAC (test code = Performing RAC) Organization Information: Site ID: RGA Name: [facility] Lab Address: [address] [place] [phone] Director: Robi Rodas Lab Interpretation Abnormal (test code = 36370-8) [facility] with platelet and nuxxteuxtzjl2387-90-14 13:06:00 Test Item Value Reference Range Interpretation Comments WBC (test code = 10.1 See_Comment [Automated 2890-2) message] The system which generated this result transmitted reference range : 3.8 - 10.8 Thousand/uL. Th e reference range was not used to interpret this result as normal/abnormal . RBC (test code = 4.24 See_Comment [Automated 969-8) message] The system which generated this result [...] RAC) Organization Information: Site ID: RGA Name: [facility] Lab Address: [address] [place] [phone] Director: Robi Rodas Lab Interpretation Abnormal (test code = 57824-0) [facility]inal[facility], automated with wpimipplhl6082-14-49 13:06:00 Test Item Value Reference Range Interpretation Comments Color, UA (test code YELLOW YELLOW = 5778-6) Appearance (test CLEAR CLEAR code = 5767-9) Specific gravity, 1.013 1.001-1.035 urine (test code = 5811-5) pH, urine (test code 7.5 5.0-8.0 = 5803-2) Glucose, urine (test NEGATIVE NEGATIVE code = 33890-1) Bilirubin, UA (test NEGATIVE NEGATIVE code = 5770-3) Ketones, UA (test NEGATIVE NEGATIVE code = 6884-8) Occult blood, urine NEGATIVE NEGATIVE (test code = 5794-3) Protein, UA (test TRACE NEGATIVE A code = 98259-3) Nitrite, UA (test NEGATIVE NEGATIVE code = [...] code = NONE SEEN See_Comment [Autom ated 98906-4) message] The system which generated this result transmitted reference range : < OR = 2 /HPF. The reference range was not used to interpr et this result as normal/abnormal . Squamous epithelial 0-5 See_Comment [Automa danielle cells, UA (test code message ] The = 75977-3) system which generated this result transmitted reference [...] RAC) Organization Information: Site ID: RGA Name: [facility] Address: [address] [place] [phone] Director: Robi Rodas Lab Interpretation Abnormal (test code = 32646-9) [facility] CampusVitamin D 25 hydroxy kluke8369-56-14 13:06:00 Test Item Value Reference Range Interpretation Comments Vitamin D, 71 ng/mL 30-100 Vitamin D Statu s 25-hydroxy (test 25-OH Vitam in D: code = 1988-) Deficiency: < 20 ng/mLInsufficie ncy : 20 - 29 ng/mLOptimal: > or = 30 ng/mL For 25-OH Vitamin D testing on patients on D2-supplementat ion and patients fo r whom quantitati on of D2 and D3 fractions is required, the QuestAssureD( )25 -OH VIT D, (D2,D3), LC/MS/ MS is recommended: order code 9288 8 (patients >2yrs).See Note 1 Note 1 For additional information, please refer to http://educatio n.Q uestDiagnostics .co m/faq/PRS506 (T his link is being provided for informational/e sunil ational purpose s only.) BANDAR (test code = FASTING:YES FASTING: BANDAR) YES RAC (test code = Performing RAC) Organization Information: Site ID: SAL Name: [facility] Address: [address] [place] [phone] Director: Robi Rodas [facility] metabolic [id number] 13:06:00 Test Item Value Reference Interpretation Comments Range Glucose (test code 117 mg/dL 65-99 H Fasting reference = 2345-7) interval For so meone without known diabetes, a glu cose valuebetween 10 0 and 125 mg/dL is consistent withprediabetes and should be confi rmed with afollow-up test. BUN (test code = 17 mg/dL 10-17 3094-0) Creatinine (test 0.89 mg/dL 0.60-0.95 code = 2160-0) eGFR (test code = 63 See_Comment The eGFR i s based on 8257) the CKD-EPI 202 1 equation. To calculate the n ew eGFR from a pre vious Creatinine or Cystatin Cresul t, go to https://www.Voz.io raymond.o rg/professional s/kdo qi/gfr%5Fcalcul ator [Automated mess age] The system Mobui[employer] h generated this result transmit danielle reference range [...] . Sodium (test code = 142 mmol/L 106-227 8498-2) Potassium (test 3.8 mmol/L 3.5-5.3 code = 2823-3) Chloride (test code 100 mmol/L 98-110 = 2075-0) CO2 (test code = 32 mmol/L 20-32 2027-11) Calcium (test code 10.4 mg/dL 8.6-10.4 = 39547-9) Protein (test code 7.4 g/dL 6.1-8.1 = 2885-2) Albumin, S (test 4.8 g/dL 3.6-5.1 code = 1751-7) Globulin, total 2.6 See_Comment [Automated message] (test code = [place] [address]-3) generated this result transmit danielle reference range : 1.9 - 3.7 g/dL (merissa c). The reference r john was not used to interpret this result as normal/abnormal . Albumin/globulin 1.8 See_Comment [Automated message] ratio (test code = The syste m which 0) generated this result transmit danielle reference range : 1.0 - 2.5 (calc). T he reference range was not used to interpret this result as normal/abnormal . Total bilirubin 0.6 mg/dL 0.2-1.2 (test code = 1974-) Alkaline 43 U/L 37-153 phosphatase (test code = 6768-6) AST (test code = 22 U/L 10-35 1920-8) ALT (test code = 17 U/L 6-29 1741-6) BANDAR (test code = FASTING:YES BANDAR) FASTING: YES RAC (test code = Performing RAC) Organization Information: Site ID: RGA [facility]: [facility] Address: [address] [place] [phone] Director: Robi Rodsa Lab Interpretation Abnormal (test code = 09737-5) [facility] [id number] 13:06:00 Test Item Value Reference Range Interpretation Comments Cholesterol, total 202 mg/dL <=200 H (test code = 2092-3) HDL cholesterol 62 mg/dL See_Comment [Automated (test code = 2084-11) message ] The system which generated this result transmitted reference range : > OR = 50. The reference range was not used to interpret this result as normal/abnormal . Triglycerides (test 113 mg/dL <=150 code = 2571-8) LDL cholesterol 118 mg/dL (calc) H Reference ra nge: calculated (test <100 Desira ble code = 45223-7) range <100 m g/dL for primary prevention; <70 mg/dL for patients with C HD or diabetic patients with > or = 2 CHD risk factors. LDL-C is now calculated using the Pradeep calculation, which is a validated novel method providin g better accuracy than the Friedewald equation in the estimation of LDL-C. Geoff S S et al. MARY. 2013;310(19): 0190-6340 (http://educati on .Active EndpointsDiagnBuildOut .com/faq/GFV358 ) Cholesterol/HDL 3.3 See_Comment [Automated ratio (test code = message] The 9830-1) system which generated this result transmitted reference range : <5.0 (calc). Th e reference range was not used to interpret this result as normal/abnormal . Non-HDL cholesterol 140 See_Comment H For char ents with (test code = diabetes plus 1 13230-0) major ASCVD ris k factor, treatin g [...] RAC) Organization Information: Site ID: RGA Name: [facility] Address: [address] [place] [phone] Director: Robi Rodas Lab Interpretation Abnormal (test code = 21730-2) [facility] CampusHemoglobin [id number] 13:06:00 Test Item Value Reference Range Interpretation [...] specif ic patient populat ions. Standards of Ri dical Care in Diabetes(ADA). [Automated mess age] The system whic h generated this result transmitted ref erence range: <5.7 % o f total Hgb. The reference range was not used to int erpret this result as normal/abnormal . BANDAR (test code = FASTING:YES BANDAR) FASTING: YES RAC (test code = Performing RAC) Organization Information: Site ID: [facility] Name: [employer] [facility] Lab Address: [address] [place] [address] Director: Robi Rodas [facility] CampusThyroid stimulating hkqjnyu3906-87-05 13:06:00 Test Item Value Reference Range Interpretation Comments TSH (test code = 0.17 See_Comment L [Automated 2416-3) message] The system which generated this result transmitted reference range : 0.40 - 4.50 mIU/L. The reference range was not used to interpret this result as normal/abnormal . BANDAR (test code = FASTING:YES BANDAR) FASTING: YES RAC (test code = Performing RAC) Organization Information: Site ID: A Name: [employer] [facility] Lab Address: [address] [place] [address] Director: Robi Rodas Lab Interpretation Abnormal (test code = 92131-9) [facility] with platelet and jcpzicjgbafq3450-62-71 13:06:00 Test Item Value Reference Range Interpretation Comments WBC (test code = 10.1 See_Comment [Automated 6249-2) message] The system which generated this result transmitted reference range : 3.8 - 10.8 Thousand/uL. Th e reference range was not used to interpret this result as normal/abnormal . RBC (test code = 4.24 See_Comment [Automated 107-8) message] The system which generated this result [...] RAC) Organization Information: Site ID: RGA Name: [facility] Lab Address: [address] [place] [phone] Director: Robi Rodas Lab Interpretation Abnormal (test code = 67234-1) [facility] HospitalUrinalysis, automated with mismvescwn1272-28-58 13:06:00 Test Item Value Reference Range Interpretation Comments Color, UA (test code YELLOW YELLOW = 5778-6) Appearance (test CLEAR CLEAR code = 5767-9) Specific gravity, 1.013 1.001-1.035 urine (test code = 5811-5) pH, urine (test code 7.5 5.0-8.0 = 5803-2) Glucose, urine (test NEGATIVE NEGATIVE code = 88543-6) Bilirubin, UA (test NEGATIVE NEGATIVE code = 5770-3) Ketones, UA (test NEGATIVE NEGATIVE code = 2514-8) Occult blood, urine NEGATIVE NEGATIVE (test code = 5794-3) Protein, UA (test TRACE NEGATIVE A code = 27685-0) Nitrite, UA (test NEGATIVE NEGATIVE code = [...] code = NONE SEEN See_Comment [Autom ated 88102-6) message] The system which generated this result transmitted reference range : < OR = 2 /HPF. The reference range was not used to interpr et this result as normal/abnormal . Squamous epithelial 0-5 See_Comment [Automa danielle cells, UA (test code message ] The = 32513-9) system which generated this result transmitted reference [...] = Performing RAC) Organization Information: Site ID: [facility] Name: [facility] Address: [address] [place] [phone] Director: Robi Rodas Lab Interpretation Abnormal (test code = 88271-6) [facility] CampusVitamin D 25 hydroxy zxoqr4989-75-94 13:06:00 Test Item Value Reference Range Interpretation [...] please refer to http://educatio n.Q uestDiagnostics .co m/faq/YYJ848 (T his link is being provided for informational/e sunil ational purpose s only.) BANDAR (test code = FASTING:YES FASTING: BANDAR) YES RAC (test code = Performing RAC) Organization Information: Site ID: [facility] Name: [facility] Address: [address] [place] [phone] Director: Robi Rodas [facility] CampusCom[facility] metabolic [id number] 13:06:00 Test Item Value Reference Interpretation Comments Range Glucose (test code 117 mg/dL 65-99 H Fasting reference = 2345-7) interval For so meone without known diabetes, a glu cose valuebetween 10 0 and 125 mg/dL is consistent withprediabetes and should be confi rmed with afollow-up test. BUN (test code = 17 mg/dL 10-17 3094-0) Creatinine (test 0.89 mg/dL 0.60-0.95 code = 2160-0) eGFR (test code = See_Comment The eGFR i s based on 8257) the CKD-EPI 202 1 equation. To calculate the n ew eGFR from a pre vious Creatinine or Cystatin Cresul t, go to https://www.kid raymond.o rg/professional s/kdo qi/gfr%5Fcalcul ator [Automated mess age] The system Shipey generated this result transmit danielle reference range : > OR = 60 mL/min/1.73m2. The reference range was not used to interpret this result as normal/abnormal . BUN/creatinine NOT APPLICABLE See_Comment [Automated message] ratio (test code = [employer] which 3097-3) generated this result transmit danielle reference range : 6 - 22 (calc). The reference range was not used to interpret this result as normal/abnormal . Sodium (test code = 142 mmol/L 494-117 1344-2) Potassium (test 3.8 mmol/L 3.5-5.3 code = 2823-3) Chloride (test code 100 mmol/L 98-110 = 2075-0) CO2 (test code = 32 mmol/L 20-32 2027-9) Calcium (test code 10.4 mg/dL 8.6-10.4 = 34441-3) Protein (test code 7.4 g/dL 6.1-8.1 = 2885-2) Albumin, S (test 4.8 g/dL 3.6-5.1 code = 1751-7) Globulin, total See_Comment [Automated message] (test code = The system Shipey 17116-4) generated this result transmit danielle reference range : 1.9 - 3.7 g/dL (merissa c). The reference r john was not used to interpret this result as normal/abnormal . Albumin/globulin See_Comment [Automated message] ratio (test code = The [employer] which 1759-0) generated this result transmit danielle [...] RAC) Organization Information: Site ID: RGA Name: [facility] Address: [address] [place] [phone] Director: Robi Rodas Lab Interpretation Abnormal (test code = 35654-0) [facility] [id number] 13:06:00 Test Item Value Reference Range Interpretation [...] calculated (test <100 Desira ble code = 59580-1) range <100 m g/dL for primary prevention; <70 mg/dL for patients with C HD or diabetic patients with > or = 2 CHD risk factors. LDL-C is now calculated using the Geoff-Jaya calculation, which is a validated novel method providin g better accuracy than the Friedewald equation in the estimation of LDL-C. Geoff Elizabeth S et al. MARY. 2013;310(19): 0179-5833 (http://educati on .[employer] .com/faq/GXN873 ) Cholesterol/HDL See_Comment [Automated ratio (test code = message] The 9830-1) system which generated this result transmitted reference range : <5.0 (calc). Th e reference range was not used to interpret this result as normal/abnormal . Non-HDL cholesterol See_Comment H For char ents with (test code = diabetes plus 1 97582-1) major ASCVD ris k factor, treatin g [...] RAC) Organization Information: Site ID: RGA Name: [employer] [facility] Lab Address: [address] [place] [phone] Director: Robi Rodas Lab Interpretation Abnormal (test code = 08688-8) [facility] Campus[facility]emoglobin [id number] 13:06:00 Test Item Value Reference Range Interpretation [...] specif ic patient populat ions. Standards of Ri dical Care in Diabetes(ADA). [Automated mess age] The system whic h generated this result transmitted ref erence range: <5.7 % o f total Hgb. The reference range was not used to int erpret this result as normal/abnormal . BANDAR (test code = FASTING:YES BANDAR) FASTING: YES RAC (test code = Performing RAC) Organization Information: Site ID: RGA Name: [facility] Address: [address] [place] [phone] Director: Robi Rodas [facility] CampusThyroid stimulating bgmsgsr9557-74-57 13:06:00 Test Item Value Reference Range Interpretation [...] RAC) Organization Information: Site ID: SAL Name: [facility] Address: [address] [place] [phone] Director: Robi Rodas Lab Interpretation Abnormal (test code = 35075-5) [facility] with platelet and gvzfxbfzwvcd6338-36-43 13:06:00 Test Item Value Reference Range Interpretation Comments WBC (test code = See_Comment [Automated 7190-2) message] The system which generated this result transmitted reference range : 3.8 - 10.8 Thousand/uL. Th e reference range was not used to interpret this result as normal/abnormal . RBC (test code = See_Comment [Automated 129-8) message] The system which generated this result [...] RAC) Organization Information: Site ID: RGA Name: [facility] Address: [address] [place] [phone] Director: Robi Rodas Lab Interpretation Abnormal (test code = 67923-7) [facility] CampusUrinalysis, automated with zkpwwxgarn9640-70-72 13:06:00 Test Item Value Reference Range Interpretation Comments Color, UA (test code YELLOW YELLOW = 5778-6) Appearance (test CLEAR CLEAR code = 5767-9) Specific gravity, 1.001-1.035 urine (test code = 5811-5) pH, urine (test code 5.0-8.0 = 5803-2) Glucose, urine (test NEGATIVE NEGATIVE code = 01469-4) Bilirubin, UA (test NEGATIVE NEGATIVE code = 5770-3) Ketones, UA (test NEGATIVE NEGATIVE code = 2514-8) Occult blood, urine NEGATIVE NEGATIVE (test code = 5794-3) Protein, UA (test TRACE NEGATIVE A code = 04882-7) Nitrite, UA (test NEGATIVE NEGATIVE code = [...] code = NONE SEEN See_Comment [Autom ated 84892-6) message] The system which generated this result transmitted reference range : < OR = 2 /HPF. The reference range was not used to interpr et this result as normal/abnormal . Squamous epithelial 0-5 See_Comment [Automa danielle cells, UA (test code message ] The = 83784-4) system which generated this result transmitted reference [...] RAC) Organization Information: Site ID: RGA Name: [facility] Address: [address] [place] [phone] Director: Robi Rodas Lab Interpretation Abnormal (test code = 27307-5) [facility] CampusVitamin D 25 hydroxy mlaep6908-41-69 13:06:00 Test Item Value Reference Range Interpretation [...] please refer to http://educatio n.[employer] .co m/faq/JQE644 (T his link is being provided for informational/e sunil ational purpose s only.) BANDAR (test code = FASTING:YES FASTING: BANDAR) YES RAC (test code = Performing RAC) Organization Information: Site ID: RGA Name: [facility] Address: [address] [place] [address] Director: Robi Rodas [facility] CampusHSV 1 and 2 specific Ab [id number] 00:13:00 Test Item Value Reference Interpretation Comments [...] establishedfor pediatric populations, immunocompromis ed patients,or rei screening. RAC (test code = Performing RAC) Organization Information: Site ID: IG Name: [facility] Address: [address] [place] [address] Director: Dr. Robi Rodas Lab Interpretation Abnormal (test code = 68476-9) [facility] CampusTroponin I jprsytpoy8387-72-09 12:00:00 Test Item Value Reference Range Interpretation Comments Troponin I (test code = 75806-9) 0.389 ng/mL 0.00-0.045 [facility] HealthTroponin I dikpclsxc5083-69-27 12:00:00 Test Item Value Reference Range Interpretation Comments Troponin I (test code = 68966-8) 0.389 ng/mL Automated blood lymphocyte count as percentage of total ojzjfiikwm2536-85-25 04:50:00 Test Item Value Reference Range Interpretation Comments Lymphocytes (%) (Auto) (test code = 20.4 % 20.0-45.0 736-9) [facility] HealthAutomated blood monocyte count as percentage of total leukocytes 2019-09-25 04:50:00 Test Item Value Reference Range Interpretation Comments Monocytes (%) (Auto) (test code = 8.0 % 2-10 5905-5) [facility] HealthAutomated blood eosinophil count as percentage of total vusmkokjbf5783-31-28 04:50:00 Test Item Value Reference Range Interpretation Comments Eosinophils (%) (Auto) (test code = 3.1 % 0-6 713-8) [facility] HealthAutomated blood basophil count as percentage of total leukocytes 2019-09-25 04:50:00 Test Item Value Reference Range Interpretation Comments Basophils (%) (Auto) (test code = 0.8 % 0-3 706-2) [facility] HealthAutomated blood nucleated erythrocyte count as percentage of total hdhmztqlrm5365-00-06 04:50:00 Test Item Value Reference Range Interpretation Comments Nucleated Red Blood Cells % (test code 0.0 % 0-0.2 = 06341-5) [facility] HealthAutomated blood neutrophil count (number/volume)2019-09-25 04:50:00 Test Item Value Reference Range Interpretation Comments Neutrophils # (Auto) (test code = 5.2 10*3/uL 1.4-7.0 751-8) [facility] HealthAutomated blood immature granulocyte count as percentage of total wzjwetwwze0392-07-30 04:50:00 Test Item Value Reference Range Interpretation Comments Immature Granulocyte # (Auto) (test 0.0400 0.0-0.0310 code = 53961-7) [facility] HealthAutomated blood lymphocyte count (number/volume)2019-09-25 04:50:00 Test Item Value Reference Range Interpretation Comments Lymphocytes # (Auto) (test code = 1.6 10*3/uL 1.2-4.0 731-0) [facility] count (number/volume)2019-09-25 04:50:00 Test Item Value Reference Range Interpretation Comments Monocytes # (Auto) (test code = 0.6 10*3/uL 0.1-0.8 742-7) [facility] HealthAutomated blood eosinophil befaq3514-43-24 04:50:00 Test Item Value Reference Range Interpretation Comments Eosinophils # (Auto) (test code = 0.2 10*3/uL 0.0-0.6 711-2) [facility] HealthAutomated blood basophil count (number/volume)2019-09-25 04:50:00 Test Item Value Reference Range Interpretation Comments Basophils # (Auto) (test code = 0.1 10*3/uL 0.0-0.3 704-7) [facility] HealthAutomated blood leukocyte count corrected for nucleated acqebeydtacs3585-27-47 04:50:00 Test Item Value Reference Range Interpretation Comments Nucleated Red Blood Cells # (test code 0.000 0-0.012 = 50409-8) [facility] erythrocyte sedimentation rate (ESR) measurement by photometricmethod (length/h1935-65-97 04:50:00 Test Item Value Reference Range Interpretation Comments Erythrocyte Sedimentation Rate (test 7 mm/h 0-20 code = 06101-4) [facility] HealthSodium measurement (moles/volume)2019-09-25 04:50:00 Test Item Value Reference Range Interpretation Comments Sodium Level (test code = 93956-0) 139 mmol/L 131-143 [facility] HealthSerum or plasma [...] Level (test code = 27 mmol/L 21-32 2027-9) [facility] HealthSerum or plasma anion bzm0425-37-11 04:50:00 Test Item Value Reference Range Interpretation Comments Anion Gap (test code = 56126-9) 7.0 mmol/L 3.0-11.0 [facility] HealthSerum or plasma urea nitrogen measurement (mass/volume)2019-09-25 04:50:00 Test Item Value Reference Range Interpretation Comments Blood Urea Nitrogen (test code = 23.0 mg/dL 7.0-18.0 3094-0) [facility] HealthSerum or plasma creatinine measurement (mass/volume)2019-09-25 04:50:00 Test Item Value Reference Range Interpretation Comments Creatinine (test code = 2160-0) 0.958 mg/dL 0.550-1.02 [facility] HealthGFR estimate [id number] 04:50:00 Test Item Value Reference Range Interpretation Comments Estimat Glomerular Filtration Rate 56 >60 (test code = 95318-1) [facility] HealthSerum or plasma glucose measurement (mass/volume)2019-09-25 04:50:00 Test Item Value Reference Range Interpretation Comments Glucose Level (test code = 2345-7) 102 mg/dL 74-106 [facility] HealthSerum or plasma calcium measurement (mass/volume)2019-09-25 04:50:00 Test Item Value Reference Range Interpretation Comments Calcium Level (test code = 64201-6) 9.5 mg/dL 8.5-10.1 [facility] HealthSerum or plasma creatine kinase MB measurement (mass/volume) 2019-09-25 04:50:00 Test Item Value Reference Range Interpretation Comments Creatine Kinase MB (test code = 3.3 ng/mL 0.3-3.6 89193-0) [facility] HealthSerum or plasma C reactive protein measurement (mass/volume) 2019-09-25 04:50:00 Test Item Value Reference Range Interpretation Comments C-Reactive Protein, Quantitative < 0.29 mg/dL 0.00-0.30 (test code = 1987-) [facility] HealthAutomated blood leukocyte count (number/volume)2019-09-25 04:50:00 Test [...] erythrocyte mean corpuscular hemoglobin concentration (MCHC) measurement ([id number] 04:50:00 Test Item Value Reference Range Interpretation Comments Mean Corpuscular Hemoglobin Concent 32.0 % 32.0-36.0 (test code = 786-4) [facility] HealthAutomated erythrocyte distribution width ggopm0259-02-90 04:50:00 Test Item Value Reference Range Interpretation Comments Red Cell Distribution Width (test code 13.0 % 0.0-15.5 = 788-0) [facility] HealthAutomated blood platelet count (count/volume)2019-09-25 04:50:00 Test Item Value Reference Range Interpretation Comments Platelet Count (test code = 287 10*3/uL 130-400 777-3) [facility] HealthAutomated blood platelet mean volume touuwdnxmlm5284-36-05 04:50:00 Test Item Value Reference Range Interpretation Comments Mean Platelet Volume (test code = 10.2 fL 9.2-12.2 30770-0) [facility] HealthAutomated blood neutrophil count as percentage of total cqemrmkavn5213-04-84 04:50:00 Test Item Value Reference Range Interpretation Comments Neutrophils (%) (Auto) (test code = 67.2 % 50-80 770-8) [facility] CenterAutomated blood immature granulocyte count as percentage of total jhqqxkuoqg6829-23-41 04:50:00 Test Item Value Reference Range Interpretation Comments Immature Granulocyte % (Auto) (test 0.50 % 0.0-0.43 code = 66298-5) [facility] Center[facility] leukocyte count (number/volume)2019-09-25 04:50:00 Test Item [...] % Automated erythrocyte mean corpuscular volume (MCV) xnsotrgfiqr1262-57-30 04:50:00 Test Item Value Reference Range Interpretation Comments Mean Corpuscular Volume (test code = 91.4 fL 787-2) Automated erythrocyte mean corpuscular hemoglobin (mass per erythrocyte) 2019-09-25 04:50:00 Test Item Value Reference Range Interpretation Comments Mean Corpuscular Hemoglobin (test 29.3 pg code = 785-6) Automated erythrocyte mean corpuscular hemoglobin concentration (MCHC) measurement ([id number] 04:50:00 Test Item Value Reference Range Interpretation Comments Mean Corpuscular Hemoglobin Concent 32.0 % (test code = 786-4) Automated erythrocyte distribution width yxosq6518-98-11 04:50:00 Test Item Value Reference Range Interpretation Comments Red Cell Distribution Width (test code 13.0 % = 788-0) Automated blood platelet count (count/volume)2019-09-25 04:50:00 Test Item Value Reference Range Interpretation Comments Platelet Count (test code = 287 10*3/uL 777-3) Automated blood platelet mean volume gcuouwhlbxk8406-36-53 04:50:00 Test Item Value Reference Range Interpretation Comments Mean Platelet Volume (test code = 10.2 fL 63074-1) Automated blood neutrophil count as percentage of total qpdufvojkz9117-01-83 04:50:00 Test Item Value Reference Range Interpretation Comments Neutrophils (%) (Auto) (test code = 67.2 % 770-8) Automated blood immature granulocyte count as percentage of total leukocytes 2019-09-25 04:50:00 Test Item Value Reference Range Interpretation Comments Immature Granulocyte % (Auto) (test 0.50 % code = 78417-2) Automated blood lymphocyte count as percentage of total hjhqjqylgm1586-60-21 04:50:00 Test Item Value Reference Range Interpretation Comments Lymphocytes (%) (Auto) (test code = 20.4 % 736-9) Automated blood monocyte count as percentage of total zgqdvryggq2504-33-63 04:50:00 Test Item Value Reference Range Interpretation Comments Monocytes (%) (Auto) (test code = 8.0 % 5905-5) Automated blood eosinophil count as percentage of total ztbhuddimc4013-07-81 04:50:00 Test Item Value Reference Range Interpretation Comments Eosinophils (%) (Auto) (test code = 3.1 % 713-8) Automated blood basophil count as percentage of total acjmpazaxy5006-22-00 04:50:00 Test Item Value Reference Range Interpretation Comments Basophils (%) (Auto) (test code = 0.8 % 706-2) Automated blood nucleated erythrocyte count as percentage of total leukocytes 2019-09-25 04:50:00 Test Item Value Reference Range Interpretation Comments Nucleated Red Blood Cells % (test code 0.0 % = 99633-4) Automated blood neutrophil count (number/volume)2019-09-25 04:50:00 Test Item Value Reference Range Interpretation Comments Neutrophils # (Auto) (test code = 5.2 10*3/uL 751-8) Automated blood immature granulocyte count as percentage of total leukocytes 2019-09-25 04:50:00 Test Item Value Reference Range Interpretation Comments Immature Granulocyte # (Auto) (test 0.0400 code = 07289-1) Automated blood lymphocyte count (number/volume)2019-09-25 04:50:00 Test Item Value Reference Range Interpretation Comments Lymphocytes # (Auto) (test code = 1.6 10*3/uL 731-0) Blood monocytes automated count (number/volume)2019-09-25 04:50:00 Test Item Value Reference Range Interpretation Comments Monocytes # (Auto) (test code = 0.6 10*3/uL 742-7) Automated blood eosinophil dhngl9123-78-54 04:50:00 Test Item Value Reference Range Interpretation Comments Eosinophils # (Auto) (test code = 0.2 10*3/uL 711-2) Automated blood basophil count (number/volume)2019-09-25 04:50:00 Test Item Value Reference Range Interpretation Comments Basophils # (Auto) (test code = 0.1 10*3/uL 704-7) Automated blood leukocyte count corrected for nucleated gcijpuszxnfx7322-46-02 04:50:00 Test Item Value Reference Range Interpretation Comments Nucleated Red Blood Cells # (test code 0.000 = 90354-9) Blood erythrocyte sedimentation rate (ESR) measurement by photometricmethod (length/f9654-11-61 04:50:00 Test Item Value Reference Range Interpretation Comments Erythrocyte Sedimentation Rate (test 7 mm/h code = 41978-8) Sodium measurement (moles/volume)2019-09-25 04:50:00 Test Item Value Reference Range Interpretation Comments Sodium Level (test code = 05717-7) 139 mmol/L Serum or plasma potassium measurement [...] 27 mmol/L 2027-9) Serum or plasma anion xfm5164-67-06 04:50:00 Test Item Value Reference Range Interpretation Comments Anion Gap (test code = 28195-9) 7.0 mmol/L Serum or plasma urea nitrogen measurement (mass/volume)2019-09-25 04:50:00 Test Item Value Reference Range Interpretation Comments Blood Urea Nitrogen (test code = 23.0 mg/dL 3094-0) Serum or plasma creatinine measurement (mass/volume)2019-09-25 04:50:00 Test Item Value Reference Range Interpretation Comments Creatinine (test code = 2160-0) 0.958 mg/dL GFR estimate HFMD8012-09-28 04:50:00 Test Item Value Reference Range Interpretation Comments Estimat Glomerular Filtration Rate 56 (test code = 72937-2) Serum or plasma glucose measurement (mass/volume)2019-09-25 04:50:00 Test Item Value Reference Range Interpretation Comments Glucose Level (test code = 2345-7) 102 mg/dL Serum or plasma calcium measurement (mass/volume)2019-09-25 04:50:00 Test Item Value Reference Range Interpretation Comments Calcium Level (test code = 16703-2) 9.5 mg/dL Serum or plasma creatine kinase MB measurement (mass/volume)2019-09-25 04:50:00 Test Item Value Reference Range Interpretation Comments Creatine Kinase MB (test code = 3.3 ng/mL 73332-4) Serum or plasma C reactive protein measurement (mass/volume)2019-09-25 04:50:00 Test Item Value Reference Range Interpretation Comments C-Reactive Protein, Quantitative < 0.29 mg/dL (test code = 1988-5) Serum or plasma magnesium measurement (mass/volume)2019-09-24 22:42:00 Test Item Value Reference Range Interpretation Comments Magnesium Level (test code = 2.3 mg/dL 1.6-2.6 83281-1) [facility] HealthSerum or plasma total bilirubin measurement [...] (test code = 53 U/L 45-117 6768-6) [facility] HealthLactate ser/lxry8560-91-41 22:42:00 Test Item Value Reference Range Interpretation Comments Lactic Acid Level (test code = 1.0 mmol/L 0.4-1.9 2524-7) [facility] HealthSerum or plasma creatine kinase measurement (enzymatic activity/volume)2019-09-24 22:42:00 Test Item Value Reference Range Interpretation Comments Total Creatine Kinase (test code = 413 U/L 26-192 2157-6) [facility] HealthSerum or plasma total creatine kinase/creatine kinase MB isoenzyme activity nxpiv4025-04-95 22:42:00 Test Item Value Reference Range Interpretation Comments Creatine Kinase MB Relative Index (test 0.5 % 0-4 code = 2158-4) [facility] HealthTroponin I orttlyilv2245-46-05 22:42:00 Test Item Value Reference Range Interpretation Comments Troponin I (test code = 94823-6) 0.059 ng/mL 0.00-0.045 [facility] HealthSerum or plasma brain natriuretic peptide (BNP) measurement 2019-09-24 22:42:00 Test Item Value Reference Range Interpretation Comments B-Type Natriuretic Peptide (test 40 pg/mL 0.0-100 code = 53058-9) [facility] HealthSerum or plasma thyrotropin measurement by detection limit <=0.005 miu/l (units/kztzm9064-45-95 22:42:00 Test Item Value Reference Range Interpretation Comments Thyroid Stimulating Hormone 7.670 u[iU]/mL 0.358-3.74 (TSH) (test code = 04142-4) [facility] HealthSerum or plasma procalcitonin measurement (mass/volume)2019-09-24 22:42:00 Test Item Value Reference Range Interpretation Comments Procalcitonin (test code = < 0.05 ng/mL 0.0-0.5 78987-0) [facility] prothrombin mlnp7696-06-11 22:42:00 Test Item Value Reference Range Interpretation Comments Prothrombin Time (test code = 5964-2) 11.4 s 10.2-12.9 [facility] Plate[facility] poor plasma by Coagulation uhlmv6426-61-08 22:42:00 Test Item Value Reference Range Interpretation Comments Prothromb Time International Ratio 1.0 {INR} 0.9-1.1 (test code = 6301-6) [facility] thromb[facility] (PTT) in platelet poor plasma 2019-09-24 22:42:00 Test Item Value Reference Range Interpretation Comments Activated Partial Thromboplast Time 31.7 s 25.1-36.5 (test code = 49516-4) [facility] CenterFibrin D-dimer FEU ebvv1209-18-85 22:42:00 Test Item Value Reference Range Interpretation Comments D-Dimer (test code = 13414-8) 262 ng/mL{FEU} 0.00-500 [facility] blood prothrombin oybu3487-35-63 22:42:00 Test Item Value Reference Range Interpretation Comments Prothrombin Time (test code = 5964-2) 11.4 s INR in Platelet poor plasma by Coagulation mjchg6285-53-76 22:42:00 Test Item Value Reference Range Interpretation Comments Prothromb Time International Ratio 1.0 {INR} (test code = 6301-6) Partial thromboplastin time (PTT) in platelet poor pycusy8829-97-01 22:42:00 Test Item Value Reference Range Interpretation Comments Activated Partial Thromboplast Time 31.7 s (test code = 06944-7) Fibrin D-dimer FEU bjmn4183-58-65 22:42:00 Test Item Value Reference Range Interpretation Comments D-Dimer (test code = 31297-3) 262 ng/mL{FEU} Serum or plasma magnesium measurement (mass/volume)2019-09-24 22:42:00 Test Item Value Reference Range Interpretation Comments Magnesium Level (test code = 2.3 mg/dL 79503-7) Serum or plasma total bilirubin measurement (mass/volume)2019-09-24 [...] (test code = 53 U/L 6768-6) Lactate ser/jqjc8630-89-72 22:42:00 Test Item Value Reference Range Interpretation Comments Lactic Acid Level (test code = 1.0 mmol/L 2524-7) Serum or plasma creatine kinase measurement (enzymatic activity/volume) 2019-09-24 22:42:00 Test Item Value Reference Range Interpretation Comments Total Creatine Kinase (test code = 413 U/L 2157-6) Serum or plasma total creatine kinase/creatine kinase MB isoenzyme activity zwzxh4362-20-20 22:42:00 Test Item Value Reference Range Interpretation Comments Creatine Kinase MB Relative Index (test 0.5 % code = 2158-4) Troponin I itwiworbv1927-96-96 22:42:00 Test Item Value Reference Range Interpretation Comments Troponin I (test code = 85336-1) 0.059 ng/mL Serum or plasma brain natriuretic peptide (BNP) wrnfofzuniq9496-08-60 22:42:00 Test Item Value Reference Range Interpretation Comments B-Type Natriuretic Peptide (test 40 pg/mL code = 53857-8) Serum or plasma thyrotropin measurement by detection limit <=0.005 miu/l (units/olnqy3806-32-62 22:42:00 Test Item Value Reference Range Interpretation Comments Thyroid Stimulating Hormone 7.670 u[iU]/mL (TSH) (test code = 98470-7) Serum or plasma procalcitonin measurement (mass/volume)2019-09-24 22:42:00 Test Item Value Reference Range Interpretation Comments Procalcitonin (test code = < 0.05 ng/mL 82739-1) Automated bacteria count in urine sediment (number/area)2019-09-24 22:33:00 Test Item Value Reference Range Interpretation Comments Urine Bacteria (test None /[HPF] See_Comment [Autom ated message] code = 57751-0) The system w [facility] generated this result transmitted ref erence range: 0-+/-. T he reference range was not used to int erpret this result as normal/abnormal . [facility] HealthAutomated mucus count in urine sediment (number/area)2019-09-24 22:33:00 Test Item Value Reference Range Interpretation Comments Urine Mucus (test +/- /[LPF] See_Comment [Automate d message] The code = 66515-1) system which generated this result tra nsmitted reference range : 0-1+. The reference r john was not used to int erpret this result as normal/abnormal . [facility] HealthAutomated urine yeast count (number/area)2019-09-24 22:33:00 Test Item Value Reference Range Interpretation Comments Urine Yeast (Budding) (test code Rare /[HPF] None Seen = 76762-2) [facility] comment 22:33:00 Test Item Value Reference Range Interpretation Comments Urine Culture Indicated Yes, Criteria Met (test code = 8264-4) [facility] HealthBacterial urine [id number] 22:33:00 Test Item Value Reference Range Interpretation Comments Urine Culture (test No growth in 18-24 code = 630-4) hours [facility] HealthAutomated urine color mioduhhjmcymb1812-44-66 22:33:00 Test Item Value Reference Range Interpretation Comments Urine Color (test code = 29399-7) Yellow Yellow [facility] HealthClarity in Urine by Refractometry gclxjtjpx3521-33-54 22:33:00 Test Item Value Reference Range Interpretation Comments Urine Appearance (test code = 50455-1) Clear Clear [facility] HealthUrine pH measurement by test potrd0649-33-90 22:33:00 Test Item Value Reference Range Interpretation Comments Urine pH (test code = 5803-2) 7.5 [pH] 5.0-8.0 [facility] HealthAutomated urine specific gravity by uhyzpmdusvlor6050-15-65 22:33:00 Test Item Value Reference Range Interpretation Comments Urine Specific [place] (test code = 1.009 1.005-1.030 76727-0) [facility] HealthAutomated urine protein phwunvjgpmf2428-76-01 22:33:00 Test Item Value Reference Range Interpretation Comments Urine Protein (test code = Negative mg/dL Negative 56242918) [facility] HealthAutomated urine glucose fmvcmjtlv5756-44-69 22:33:00 Test Item Value Reference Range Interpretation Comments Urine Glucose (UA) (test code Negative mg/dL Negative = 63022-0) [facility] HealthUrine ketones detection by automated test aphsb3009-08-59 22:33:00 Test Item Value Reference Range Interpretation Comments Urine Ketones (test code = Negative mg/dL Negative 26591-1) [facility] HealthUrine erythrocytes detection by automated wedfup6432-49-80 22:33:00 Test Item Value Reference Range Interpretation Comments Urine Occult Blood (test code = Negative Negative 26768-3) [facility] HealthAutomated urine nitrite ucsnipplvjq7579-78-19 22:33:00 Test Item Value Reference Range Interpretation Comments Urine Nitrite (test code = 16865-7) Negative Negative [facility] HealthUrine total bilirubin detection by automated test gnude6829-73-51 22:33:00 Test Item Value Reference Range Interpretation Comments Urine Bilirubin (test code = Negative Negative 43909-2) [facility] HealthAutomated urine urobilinogen hihpnkoekcj5039-37-01 22:33:00 Test Item Value Reference Range Interpretation Comments Urine Urobilinogen (test code = Normal mg/dL Normal 80306404) [facility] BomberbotUrine leukocytes detection by automated thvtlv6916-59-77 22:33:00 Test Item Value Reference Range Interpretation Comments Urine Leukocyte Esterase (test 250 {Marianna}/uL Negative code = 45614-2) [facility] HealthAutomated erythrocytes count in urine sediment (number/area) 2019-09-24 22:33:00 Test Item Value Reference Range Interpretation Comments Urine RBC (test code = 77231-3) 0-2 /[HPF] 0-2 [facility] HealthAutomated leukocytes count in urine sediment (number/area) 2019-09-24 22:33:00 Test Item Value Reference Range Interpretation Comments Urine WBC (test code = 15140-5) 10-20 /[HPF] 0-2 [facility] HealthAutomated squamous epithelial cells count in urine sediment (number/area)2019-09-24 22:33:00 Test Item Value Reference Range Interpretation Comments Urine Squamous Rare /[LPF] See_Comment [Automated m essage] Epithelial Cells The system which (test code = 70247-6) genera danielle this result transmitted ref erence range: 0 - 1+. The reference range was not used to int erpret this result as normal/abnormal . [facility] HealthAutomated urine sediment crystal count (number/area)2019-09-24 22:33:00 Test Item Value Reference Range Interpretation Comments Urine Other Crystals (test +/- Rare /[LPF] None Seen code = 81059-5) [facility] fthyqmf1009-70-38 22:33:00 Test Item Value Reference Range Interpretation Comments Urine Culture (test No growth in 18-24 code = 630-4) hours Automated urine color eruwtsjqmhyiq3781-48-04 22:33:00 Test Item Value Reference Range Interpretation Comments Urine Color (test code = 91241-0) Yellow Clarity in Urine by Refractometry ictcrqehg8580-60-82 22:33:00 Test Item Value Reference Range Interpretation Comments Urine Appearance (test code = 95500-7) Clear Urine pH measurement by test newxy1760-53-75 22:33:00 Test Item Value Reference Range Interpretation Comments Urine pH (test code = 5803-2) 7.5 [pH] Automated urine specific gravity by cteneykdtwnhb0273-97-23 22:33:00 Test Item Value Reference Range Interpretation Comments Urine Specific [place] (test code = 1.009 14486-8) Automated urine protein qovdwzerasq8337-63-69 22:33:00 Test Item Value Reference Range Interpretation Comments Urine Protein (test code = Negative mg/dL 76163206) Automated urine glucose hxjxkzsiy9462-89-06 22:33:00 Test Item Value Reference Range Interpretation Comments Urine Glucose (UA) (test code Negative mg/dL = 12103-8) Urine ketones detection by automated test kgcnn6145-43-98 22:33:00 Test Item Value Reference Range Interpretation Comments Urine Ketones (test code = Negative mg/dL 61634-6) Urine erythrocytes detection by automated cqrufi6921-56-60 22:33:00 Test Item Value Reference Range Interpretation Comments Urine Occult Blood (test code = Negative 14546-9) Automated urine nitrite axiqhnmlijz4066-15-26 22:33:00 Test Item Value Reference Range Interpretation Comments Urine Nitrite (test code = 37481-4) Negative Urine total bilirubin detection by automated test wmixx7680-72-43 22:33:00 Test Item Value Reference Range Interpretation Comments Urine Bilirubin (test code = Negative 19761-4) Automated urine urobilinogen mkvtuiigcdf6586-19-69 22:33:00 Test Item Value Reference Range Interpretation Comments Urine Urobilinogen (test code = Normal mg/dL 53000827) Urine leukocytes detection by automated zcwdlo9728-72-86 22:33:00 Test Item Value Reference Range Interpretation Comments Urine Leukocyte Esterase (test 250 {Marianna}/uL code = 87021-2) Automated erythrocytes count in urine sediment (number/area)2019-09-24 22:33:00 Test Item Value Reference Range Interpretation Comments Urine RBC (test code = 84461-7) 0-2 /[HPF] Automated leukocytes count in urine sediment (number/area)2019-09-24 22:33:00 Test Item Value Reference Range Interpretation Comments Urine WBC (test code = 70713-5) 10-20 /[HPF] Automated squamous epithelial cells count in urine sediment (number/area) 2019-09-24 22:33:00 Test Item Value Reference Range Interpretation Comments Urine Squamous Epithelial Cells Rare /[LPF] (test code = 84572-6) Automated urine sediment crystal count (number/area)2019-09-24 22:33:00 Test Item Value Reference Range Interpretation Comments Urine Other Crystals (test +/- Rare /[LPF] code = 62515-8) Automated bacteria count in urine sediment (number/area)2019-09-24 22:33:00 Test Item Value Reference Range Interpretation Comments Urine Bacteria (test code = None /[HPF] 40249-3) Automated mucus count in urine sediment (number/area)2019-09-24 22:33:00 Test Item Value Reference Range Interpretation Comments Urine Mucus (test code = 89061-9) +/- /[LPF] Automated urine yeast count (number/area)2019-09-24 22:33:00 Test Item Value Reference Range Interpretation Comments Urine Yeast (Budding) (test code Rare /[HPF] = 38805-3) Service comment 22:33:00 Test Item Value Reference Range Interpretation Comments Urine Culture Indicated Yes, Criteria Met (test code = 8264-4) BASIC METABOLIC BDJMP2101-68-26 02:06:00 Test Item Value Reference Range Interpretation [...] CALCIUM (test code = MG/DL 8.7-9.7 CA) ZZWWVJNJK0687-33-04 02:06:00 Test Item Value Reference Range Interpretation Comments MAGNESIUM (test code = MAG) MG/DL 1.6-2.3 BASIC METABOLIC [id number] 02:06:00 Test Item Value Reference Range Interpretation [...] CALCIUM (test code = MG/DL 8.7-9.7 CA) BGKQBHOWW0965-59-48 02:06:00 Test Item Value Reference Range Interpretation Comments MAGNESIUM (test code = MAG) MG/DL 1.6-2.3 BASIC METABOLIC LVYIB2977-40-20 02:06:00 Test Item Value Reference Range Interpretation [...] code = 10.3 MG/DL 8.4-10.2 H CA) MGFVGFBAJ0778-63-30 02:06:00 Test Item Value Reference Range Interpretation Comments MAGNESIUM (test code = MAG) MG/DL 1.6-2.3 BASIC METABOLIC JSSAX1786-37-45 02:06:00 Test Item Value Reference Range Interpretation [...] code = 10.3 MG/DL 8.4-10.2 H CA) AMLJUXSYT1628-73-08 02:06:00 Test Item Value Reference Range Interpretation Comments MAGNESIUM (test code = MAG) 1.7 MG/DL 1.6-2.3 BASIC METABOLIC WQMPI0607-60-20 02:03:00 Test Item Value Reference Range Interpretation [...] CALCIUM (test code = CA) MG/DL 8.7-9.7 RCIQUPYHB1669-25-01 02:03:00 Test Item Value Reference Range Interpretation Comments MAGNESIUM (test code = MAG) MG/DL 1.6-2.3 CBC W/AUTO [id number] 01:51:00 Test Item Value Reference Range Interpretation [...] K/mm3 0.0-0.1 N NRBC#) - XR CHEST [id number] 11:06:00 Patient Name: LEYDA GARRETT Unit No: [id number] EXAMS: CPT CODE: [id number] XR CHEST 1V 27934 Site ID: [id number] HISTORY: Pneumothorax COMPARISON: Chest [...] Willie Santana (RT) Transcrpt Date/Tm/Trnsp: 08/10/2019 (1106) t.JWR.AJP6 Orig Print D/T: S: 08/10/2019 (1110) [facility] NAME: LEYDA GARRETT ENDER [address] [place] [address] PHYS: [place] [address] : 1935 AGE: 84 SEX: F LOC: Z.SI05 A PHONE #: [phone] EXAM DATE: 08/10/2019 STATUS: ADM IN FAX #: [phone] RADIOLOGY NO: PAGE 1 Signed ReportBASIC METABOLIC [id number] 05:07:00 Test Item Value Reference Range Interpretation [...] code = 10.6 MG/DL 8.4-10.2 H CA) [id number] 05:07:00 Test Item Value Reference Range Interpretation Comments PHOSPHOROUS (test code = PHOS) 3.3 MG/DL 2.5-4.5 N XUFRBAUQH4280-60-00 05:07:00 Test Item Value Reference Range Interpretation Comments MAGNESIUM (test code = MAG) 2.2 MG/DL 1.6-2.3 BASIC METABOLIC [id number] 05:04:00 Test Item Value Reference Range Interpretation [...] CALCIUM (test code = MG/DL 8.7-9.7 CA) MFCWVUHAMVL7598-74-97 05:04:00 Test Item Value Reference Range Interpretation Comments PHOSPHOROUS (test code = PHOS) MG/DL 2.5-4.5 BCYVGNTNI3367-31-67 05:04:00 Test Item Value Reference Range Interpretation Comments MAGNESIUM (test code = MAG) MG/DL 1.6-2.3 BASIC METABOLIC [id number] 05:01:00 Test Item Value Reference Range Interpretation [...] CALCIUM (test code = CA) MG/DL 8.7-9.7 [id number] 05:01:00 Test Item Value Reference Range Interpretation Comments PHOSPHOROUS (test code = PHOS) MG/DL 2.5-4.5 [id number] 05:01:00 Test Item Value Reference Range Interpretation Comments MAGNESIUM (test code = MAG) MG/DL 1.6-2.3 CBC W/AUTO [id number] 04:48:00 Test Item Value Reference Range Interpretation [...] 0.00 K/mm3 0.0-0.1 N NRBC#) BASIC METABOLIC [id number] 23:31:00 Test Item Value Reference Range Interpretation [...] code = 10.1 MG/DL 8.4-10.2 N CA) [id number] 23:31:00 Test Item Value Reference Range Interpretation Comments MAGNESIUM (test code = MAG) 1.8 MG/DL 1.6-2.3 N BASIC METABOLIC [id number] 23:28:00 Test Item Value Reference Range Interpretation [...] CALCIUM (test code = MG/DL 8.7-9.7 CA) [id number] 23:28:00 Test Item Value Reference Range Interpretation Comments MAGNESIUM (test code = MAG) MG/DL 1.6-2.3 BASIC METABOLIC [id number] 23:25:00 Test Item Value Reference Range Interpretation [...] CALCIUM (test code = CA) MG/DL 8.7-9.7 [id number] 23:25:00 Test Item Value Reference Range Interpretation Comments MAGNESIUM (test code = MAG) MG/DL 1.6-2.3 BASIC METABOLIC [id number] 22:21:00 Test Item Value Reference Range Interpretation [...] code = 9.3 MG/DL 8.4-10.2 N CA) [id number] 22:21:00 Test Item Value Reference Range Interpretation Comments MAGNESIUM (test code = MAG) 1.6 MG/DL 1.6-2.3 N BASIC METABOLIC [id number] 21:36:00 Test Item Value Reference Range Interpretation [...] code = CA) 9.3 MG/DL 8.4-10.2 N [id number] 21:36:00 Test Item Value Reference Range Interpretation Comments MAGNESIUM (test code = MAG) 1.6 MG/DL 1.6-2.3 N BASIC METABOLIC [id number] 21:35:00 Test Item Value Reference Range Interpretation [...] CALCIUM (test code = CA) MG/DL 8.7-9.7 [id number] 21:35:00 Test Item Value Reference Range Interpretation Comments MAGNESIUM (test code = MAG) MG/DL 1.6-2.3 CBC W/AUTO [id number] 21:25:00 Test Item Value Reference Range Interpretation [...] 0.0-0.1 N NRBC#) - MRI BRAIN W/O [id number] 11:43:00 Patient Name: LEYDA GARRETT Unit No: [id number] EXAMS: CPT CODE: [id number] MRI BRAIN W/O CONTRAST 87404 CLINICAL INFORMATION: Ataxia. Right internal carotid artery [...] Laura Wei (RT)(R) Transcrpt Date/Tm/Trnsp: 08/09/2019 (1143) t.JWR.AGV Orig Print D/T: S: 08/09/2019 (1146) [facility] NAME: LEYDA GARRETT [address] PHYS: [place] [address] : 1935 AGE: 84 SEX: F LOC: Z.SI05 A PHONE #: [phone] EXAM DATE: 08/09/2019 STATUS: ADM IN FAX #: [phone] RADIOLOGY NO: PAGE 1 Signed Report URINALYSIS [id number] 22:47:00 Test Item Value Reference Range Interpretation [...] DIPSTICK (test NEGATIVE Larry/mm3 NEGATIVE code = JADNE) UA PH DIPSTICK (test code 6.0 5.0-9.0 [...] UACULT) Criteria SOURCE OF URINE: STRAIGHT CATHETERURINALYSIS [id number] 22:45:00 Test Item Value Reference Range Interpretation [...] UACULT) SOURCE OF URINE: STRAIGHT CATHETERBASIC METABOLIC [id number] 13:12:00 Test Item Value Reference Range Interpretation [...] code = 9.8 MG/DL 8.4-10.2 N CA) [id number] 13:12:00 Test Item Value Reference Range Interpretation Comments PHOSPHOROUS (test code = PHOS) 2.6 MG/DL 2.5-4.5 N [id number] 13:12:00 Test Item Value Reference Range Interpretation Comments MAGNESIUM (test code = MAG) 2.3 MG/DL 1.6-2.3 N T3,T4 [id number] 13:12:00 Test Item Value Reference Range Interpretation Comments T3 UPTAKE (test code = T3UP) 33.3 % UP 23.5-40.5 N T4 (THYROXINE) (test code = T4) 13.10 UG/DL 5.53-11.0 H T7 (FREE THYROXINE INDEX) (test 4.4 1.2-4.3 H code = T7) THYROID STIMULATING [id number] 13:12:00 Test Item Value Reference Range Interpretation Comments THYROID STIMULATING 3.590 MIU/L 0.465-4.68 N Please b e aware that HORMONE (test code = bias re sults for TSH TSH) may occur forpa tient who are taking Biotin suppleme nts. T4 [id number] 12:43:00 Test Item Value Reference Range Interpretation Comments T4 FREE (test code = T4F) 2.1 NG/DL 0.78-2.19 N BASIC METABOLIC [id number] 12:41:00 Test Item Value Reference Range Interpretation [...] code = 9.8 MG/DL 8.4-10.2 N CA) [id number] 12:41:00 Test Item Value Reference Range Interpretation Comments PHOSPHOROUS (test code = PHOS) 2.6 MG/DL 2.5-4.5 N [id number] 12:41:00 Test Item Value Reference Range Interpretation Comments MAGNESIUM (test code = MAG) 2.3 MG/DL 1.6-2.3 N T3,T4 [id number] 12:41:00 Test Item Value Reference Range Interpretation Comments T3 UPTAKE (test code = T3UP) 33.3 % UP 23.5-40.5 N T4 (THYROXINE) (test code = T4) 13.10 UG/DL 5.53-11.0 H T7 (FREE THYROXINE INDEX) (test 4.4 1.2-4.3 H code = T7) THYROID STIMULATING [id number] 12:41:00 Test Item Value Reference Range Interpretation Comments THYROID STIMULATING HORMONE (test code MIU/L 0.465-4.68 = TSH) CBC W/AUTO [id number] 12:39:00 Test Item Value Reference Range Interpretation [...] 0.00 K/mm3 0.0-0.1 N NRBC#) BASIC METABOLIC [id number] 12:26:00 Test Item Value Reference Range Interpretation [...] code = 9.8 MG/DL 8.4-10.2 N CA) [id number] 12:26:00 Test Item Value Reference Range Interpretation Comments PHOSPHOROUS (test code = PHOS) 2.6 MG/DL 2.5-4.5 N [id number] 12:26:00 Test Item Value Reference Range Interpretation Comments MAGNESIUM (test code = MAG) 2.3 MG/DL 1.6-2.3 N T3,T4 [id number] 12:26:00 Test Item Value Reference Range Interpretation Comments T3 UPTAKE (test code = T3UP) % UP 23.5-40.5 T4 (THYROXINE) (test code = T4) UG/DL 5.53-11.0 T7 (FREE THYROXINE INDEX) (test code = 1.2-4.3 T7) THYROID STIMULATING [id number] 12:26:00 Test Item Value Reference Range Interpretation Comments THYROID STIMULATING HORMONE (test code MIU/L 0.465-4.68 = TSH) BASIC METABOLIC [id number] 12:25:00 Test Item Value Reference Range Interpretation [...] CALCIUM (test code = MG/DL 8.7-9.7 CA) [id number] 12:25:00 Test Item Value Reference Range Interpretation Comments PHOSPHOROUS (test code = PHOS) MG/DL 2.5-4.5 [id number] 12:25:00 Test Item Value Reference Range Interpretation Comments MAGNESIUM (test code = MAG) MG/DL 1.6-2.3 T3,T4 [id number] 12:25:00 Test Item Value Reference Range Interpretation Comments T3 UPTAKE (test code = T3UP) % UP 23.5-40.5 T4 (THYROXINE) (test code = T4) UG/DL 5.53-11.0 T7 (FREE THYROXINE INDEX) (test code = 1.2-4.3 T7) THYROID STIMULATING [id number] 12:25:00 Test Item Value Reference Range Interpretation Comments THYROID STIMULATING HORMONE (test code MIU/L 0.465-4.68 = TSH) BASIC METABOLIC [id number] 12:25:00 Test Item Value Reference Range Interpretation [...] CALCIUM (test code = MG/DL 8.7-9.7 CA) [id number] 12:25:00 Test Item Value Reference Range Interpretation Comments PHOSPHOROUS (test code = PHOS) MG/DL 2.5-4.5 [id number] 12:25:00 Test Item Value Reference Range Interpretation Comments MAGNESIUM (test code = MAG) MG/DL 1.6-2.3 T3,T4 [id number] 12:25:00 Test Item Value Reference Range Interpretation Comments T3 UPTAKE (test code = T3UP) % UP 23.5-40.5 T4 (THYROXINE) (test code = T4) UG/DL 5.53-11.0 T7 (FREE THYROXINE INDEX) (test code = 1.2-4.3 T7) THYROID STIMULATING [id number] 12:25:00 Test Item Value Reference Range Interpretation Comments THYROID STIMULATING HORMONE (test code MIU/L 0.465-4.68 = TSH) BASIC METABOLIC [id number] 12:25:00 Test Item Value Reference Range Interpretation [...] CALCIUM (test code = MG/DL 8.7-9.7 CA) [id number] 12:25:00 Test Item Value Reference Range Interpretation Comments PHOSPHOROUS (test code = PHOS) MG/DL 2.5-4.5 [id number] 12:25:00 Test Item Value Reference Range Interpretation Comments MAGNESIUM (test code = MAG) MG/DL 1.6-2.3 T3,T4 [id number] 12:25:00 Test Item Value Reference Range Interpretation Comments T3 UPTAKE (test code = T3UP) % UP 23.5-40.5 T4 (THYROXINE) (test code = T4) UG/DL 5.53-11.0 T7 (FREE THYROXINE INDEX) (test code = 1.2-4.3 T7) THYROID STIMULATING [id number] 12:25:00 Test Item Value Reference Range Interpretation Comments THYROID STIMULATING HORMONE (test code MIU/L 0.465-4.68 = TSH) BASIC METABOLIC [id number] 12:23:00 Test Item Value Reference Range Interpretation [...] CALCIUM (test code = CA) MG/DL 8.7-9.7 [id number] 12:23:00 Test Item Value Reference Range Interpretation Comments PHOSPHOROUS (test code = PHOS) MG/DL 2.5-4.5 [id number] 12:23:00 Test Item Value Reference Range Interpretation Comments MAGNESIUM (test code = MAG) MG/DL 1.6-2.3 T3,T4 [id number] 12:23:00 Test Item Value Reference Range Interpretation Comments T3 UPTAKE (test code = T3UP) % UP 23.5-40.5 T4 (THYROXINE) (test code = T4) UG/DL 5.53-11.0 T7 (FREE THYROXINE INDEX) (test code = 1.2-4.3 T7) THYROID STIMULATING [id number] 12:23:00 Test Item Value Reference Range Interpretation Comments THYROID STIMULATING HORMONE (test code MIU/L 0.465-4.68 = TSH) BASIC METABOLIC [id number] 12:22:00 Test Item Value Reference Range Interpretation [...] CALCIUM (test code = CA) MG/DL 8.7-9.7 [id number] 12:22:00 Test Item Value Reference Range Interpretation Comments PHOSPHOROUS (test code = PHOS) MG/DL 2.5-4.5 [id number] 12:22:00 Test Item Value Reference Range Interpretation Comments MAGNESIUM (test code = MAG) MG/DL 1.6-2.3 T3,T4 [id number] 12:22:00 Test Item Value Reference Range Interpretation Comments T3 UPTAKE (test code = T3UP) % UP 23.5-40.5 T4 (THYROXINE) (test code = T4) UG/DL 5.53-11.0 T7 (FREE THYROXINE INDEX) (test code = 1.2-4.3 T7) THYROID STIMULATING [id number] 12:22:00 Test Item Value Reference Range Interpretation Comments THYROID STIMULATING HORMONE (test code MIU/L 0.465-4.68 = TSH) - XR HIP W/PEL UNI 2+V [id number] 11:43:00 Patient Name: LEYDA GARRETT Unit No: [id number] EXAMS: CPT CODE: [id number] XR HIP W/PEL UNI 2+V [place] [address] EXAM: - XR HIP W/PEL UNI 2+V RT HISTORY: s/p fall, pain right hip Location: B2 COMPARISON: None available time of interpretation. FINDINGS: AP view of the pelvis and frog-leg lateral viewof the right hip is provided. There is no evidence of acute fracture or malalignment. Mild degenerative joint space narrowing present throughout both hips. Sacroiliac joints and pubic symphysis appearunremarkable. Mild degenerative changes along the lower lumbar spine. IMPRESSION: No acute osseous abnormality. at 1143 Reported and signed by: Kathrin Guevara MD CC: Poli Aaron; Jana Acosta [employer] Technologist: Britney Myers RT (R) Transcrpt Date/Tm/Trnsp: 08/08/2019 (1143) t.SDR.KW9 Orig Print D/T: S: 08/08/2019 (1147) [facility] NAME: LEYDA GARRETT [address] PHYS: [email or web address].01 - [place] [address] : 1935 AGE: 84 SEX: F LOC: Z.SI05 A PHONE #: [phone] EXAM DATE: 08/08/2019 STATUS: ADM IN FAX #: [phone] RADIOLOGY NO: PAGE 1 Signed Report- CT HEAD/BRAIN W/O [id number] 11:40:00 Patient Name: LEYDA GARRETT Unit No: [id number] EXAMS: CPT CODE: [id number] CT HEAD/BRAIN W/O CONT 46221 EXAMINATION: - CT HEAD/BRAIN W/O CONT. LOCATION: [...] Ever Finney CC: Poli Aaron; Jana Acosta [employer] Technologist: Filipe Perez, RT(R) CTDI: DLP: Trnscrpt: 08/08/2019 (1140) t.SDR.ANS4 [facility] NAME: LEYDA GARRETT PHYS: [place] [address] : 1935 AGE: 84 SEX: F LOC: Z.SI05 A PHONE #: [phone] EXAM DATE: 08/08/2019 STATUS: ADM IN FAX #: [phone] RAD#: D/C DT PAGE 1 Signed Report Patient Name: LEYDA GARRETT Unit No: [id number] EXAMS: CPT CODE: [id number] CT HEAD/BRAIN W/O CONT 40423 (Continued) Orig Print D/T: S: 08/08/2019 (1143) [facility] NAME: LEYDA GARRETTmond PHYS: [place]. [place] [address] : 1935 AGE: 84 SEX: F LOC: Z.SI05 A PHONE #: [phone] EXAM DATE:08/08/2019 STATUS: ADM IN FAX #: [phone] RAD #: D/C DT PAGE 2 Signed Report- XR CHEST 1V 2019-08-08 08:51:00 Patient Name: LEYDA GARRETT Unit No: [id number] EXAMS: CPT CODE: [id number] XR CHEST 1V 01488 EXAM: - XR CHEST 1V Location code:B2 [...] Octavio Lerner, RT(R) Transcrpt Date/Tm/Trnsp: 08/08/2019 (0851) BethanieR.KW9 Orig Print D/T: S: 08/08/2019 (0854) [facility] NAME: LEYDA GARRETT [address] PHYS: [place] [address] : 1935 AGE: 84 SEX: F LOC: JeanineNelySI05 A PHONE #: [phone] EXAM DATE: 08/08/2019 STATUS: ADM IN FAX #: [phone] RADIOLOGY NO: PAGE 1 Signed Report ARTERY,[id number] 12:46:00 RUN DATE: 08/07/19 [facility] LAB PAGE 1 RUN TIME: 1246 Specimen Inquiry RUN USER: INTERFACE PATIENT: LEYDA GARRETT LOC: JeanineNelyMICHEAL U #: [id number] AGE/SX: 84/F ROOM: [facility] RE08/06/19REG DR: Robi Schroeder MD : 37 BED: A DIS: STATUS: ADM IN TLOC: SPEC #: [id number] RECD: 08/06/19 STATUS: DOV RERoberto Carlos #: [id number] KELLE: 08/06/19 [facility] [address]: Robi Schroeder MD ENTERED: 08/06/19 SP TYPE: ARTERY, PL OTHR DR: Self Referred Mirella Francis MD, Patricia Q MD Pepper, Gregory S MDORDERED: DECAL, SURG PATH LVL 3, SURG PATH LVL 4 CODES: [id number] - PLAQUE, NOS [id number] - ARTERY, NOS 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 ARTERY, NOS - RT CAROTID PLAQUE B. LYMPH NODE, NOS - RT CERVICAL LYMPH NODE CONTINUED ON NEXT PAGE ------- -----RUN DATE: 08/07/19 [place] - LAB PAGE 2 RUN TIME: 1246 Specimen Inquiry RUN USER: INTERFACE SPEC #: [id number] PATIENT: LEYDA GARRETT #[id number] (Continued) CLINICAL HISTORY S/P RIGHT CEA CPT CODES CPT CODE(S): 59970 , 43077 , 94166 , , , , FINAL DIAGNOSIS A. [...] 1246 END OF REPORT - XR CHEST [id number] 10:56:00 Patient Name: LEYDA GARRETT Unit No: [id number] EXAMS: CPT CODE: [id number] XR CHEST 1V 44048 EXAMINATION: - XR CHEST 1V. LOCATION: B2. [...] Damian Ingram (RT) (R) Transcrpt Date/Tm/Trnsp: 08/07/2019 (6886) [id number] Orig Print D/T: S: 08/07/2019 (1100) [facility] NAME: LEYDA GARRETT [id number] PHYS: [place] [address] : 1935 AGE: 84SEX: F LOC: Z.SI01 A PHONE #: [phone] EXAM DATE: 08/07/2019 STATUS: ADM IN FAX #: [phone] RADIOLOGY NO: PAGE 1 Signed ReportBASIC METABOLIC [id number] 06:56:00 Test Item Value Reference Range Interpretation [...] CA) CBN DRAW LEFT TUBES FOR NURSE [id number] 06:56:00 Test Item Value Reference Range Interpretation Comments MAGNESIUM (test code = MAG) 1.8 MG/DL 1.6-2.3 N CBN DRAW LEFT TUBES FOR NURSE ROSIEBASIC METABOLIC [id number] 06:55:00 Test Item Value Reference Range Interpretation [...] CA) CBN DRAW LEFT TUBES FOR NURSE [id number] 06:55:00 Test Item Value Reference Range Interpretation Comments MAGNESIUM (test code = MAG) MG/DL 1.6-2.3 CBN DRAW LEFT TUBES FOR NURSE FELABASIC METABOLIC [id number] 06:53:00 Test Item Value Reference Range Interpretation [...] 8.7-9.7 CBN DRAW LEFT TUBES FOR NURSE [id number] 06:53:00 Test Item Value Reference Range Interpretation Comments MAGNESIUM (test code = MAG) MG/DL 1.6-2.3 CBN DRAW LEFT TUBES FOR NURSE ZEKEIECBC W/AUTO [id number] 06:42:00 Test Item Value Reference Range Interpretation [...] NRBC#) CBN DRAW LEFT TUBES FOR NURSE [facility] METABOLIC [id number] 13:33:00 Test Item Value Reference Range Interpretation [...] code = 10.0 MG/DL 8.4-10.2 N CA) [id number] 13:33:00 Test Item Value Reference Range Interpretation Comments MAGNESIUM (test code = MAG) 1.8 MG/DL 1.6-2.3 N BASIC METABOLIC [id number] 13:32:00 Test Item Value Reference Range Interpretation [...] CALCIUM (test code = MG/DL 8.7-9.7 CA) [id number] 13:32:00 Test Item Value Reference Range Interpretation Comments MAGNESIUM (test code = MAG) MG/DL 1.6-2.3 BASIC METABOLIC [id number] 13:30:00 Test Item Value Reference Range Interpretation [...] CALCIUM (test code = CA) MG/DL 8.7-9.7 [id number] 13:30:00 Test Item Value Reference Range Interpretation Comments MAGNESIUM (test code = MAG) MG/DL 1.6-2.3 BASIC METABOLIC [id number] 13:29:00 Test Item Value Reference Range Interpretation [...] CALCIUM (test code = CA) MG/DL 8.7-9.7 [id number] 13:29:00 Test Item Value Reference Range Interpretation Comments MAGNESIUM (test code = MAG) MG/DL 1.6-2.3 CBC W/AUTO [id number] 13:19:00 Test Item Value Reference Range Interpretation [...] K/mm3 0.0-0.1 N NRBC#) - XR CHEST [id number] 13:05:00 Patient Name: LEYDA GARRETT Unit No: [id number] EXAMS: CPT CODE: [id number] XR CHEST 1V 89536 Site ID: [id number] HISTORY: Postoperative, right CEA COMPARISON: Chest x-ray July 29, 2019 FINDINGS: Subop timal inspiratory effort, with mild pulmonary vascular crowding/engorgement. Heart size is normal. A right carotid region surgical drain and left subclavian line are in place. No pneumothorax. Osseousstructures are unremarkable. IMPRESSION: Mild pulmonary vascular prominence which may reflect true vascular congestion or vascular crowding due to poor inspiratory effort at 1305 Reported and signed by: Laith Salcido MD CC: Poli Aaron Technologist: Octavio Lerner, RT(R) Transcrpt Date/Tm/Trnsp: 08/06/2019 (5355) t.[id number] Orig PrintD/T: S: 08/06/2019 (9437) [facility] NAME: LEYDA GARRETT [address] PHYS: [place] [address] : 1935 AGE: 84 SEX: F LOC: Z.SI01 A PHONE #: [phone] EXAM DATE: 08/06/2019 STATUS: ADM IN FAX #: [phone] RADIOLOGY NO: PAGE 1 Signed ReportARTERIAL BLOOD GAS 2019-08-06 13:00:00 Test Item Value Reference Range Interpretation [...] = 50 % COHBGFFIO2) Novel Coronavirus 2018 [id number] 08:07:00 Test Item Value Reference Range Interpretation Comments Novel Coronavirus 2019 Inhouse (test Negative Negative code = COVNONPUI) Novel Coronavirus 2019 [id number] 08:06:00 Test Item Value Reference Range Interpretation Comments Novel Coronavirus 2019 Inhouse (test Negative Negative code = COVNONPUI) HIV 12 AB [id number] 14:28:00 Test Item Value Reference Range Interpretation Comments HIV 1 2 COMBO AG/AB SCREEN AB/AG NON REACTIVE NONREACTIVE (test code = [id number]) BASIC METABOLIC [id number] 13:39:00 Test Item Value Reference Range Interpretation [...] 10.3 MG/DL 8.4-10.2 H CA) BASIC METABOLIC [id number] 13:38:00 Test Item Value Reference Range Interpretation [...] code = MG/DL 8.7-9.7 CA) BASIC METABOLIC [id number] 13:36:00 Test Item Value Reference Range Interpretation [...] code = CA) MG/DL 8.7-9.7 BASIC METABOLIC [id number] 13:35:00 Test Item Value Reference Range Interpretation [...] (test code = CA) MG/DL 8.7-9.7 PROTHROMBIN [id number] 13:32:00 Test Item Value Reference Range Interpretation [...] myocar dial infarction. 2.0 - 3.0 3. [employer] Flex Developer al prosthesis hear t valves, recurre nt systemic emboli sm. 3.0 - 4.5 PTT [id number] 13:32:00 Test Item Value Reference Range Interpretation Comments PTT ACTIVATED (test code = APTT) 35.5 SECONDS 25.1-36.5 N CBC W/AUTO [id number] 13:23:00 Test Item Value Reference Range Interpretation [...] 0.0-0.1 N NRBC#) - XR CHEST 2 [id number] 13:16:00 Patient Name: LEYDA GARRETT Unit No: [id number] EXAMS: CPT CODE: [id number] XR CHEST 2 V 52681 Site ID: [id number] HISTORY: Preoperative, right carotid endarterectomy FINDINGS: The lungs are clear and normally expanded. The heart and pulmonary vasculature is normal. Previous coronary artery stentingnoted. Osseous structures are unremarkable. IMPRESSION: No acute cardiopulmonary finding at 1316 Reported and signed by: Laith Salcido MD CC: Poli Aaron Technologist: RT Ludivina (R) Transcrpt Date/Tm/Trnsp: 07/29/2019 (1316) [id number] Orig Print D/T: S: 07/29/2019 (1319) [facility] NAME: LEYDA GARRETT [address] PHYS: [place] [address] : 1935 AGE: 84 SEX: F LOC: ZNelyMSU PHONE #: [phone] EXAM DATE: 07/29/2019 STATUS: PRE IN FAX #: [phone] RADIOLOGY NO: PAGE 1 Signed ReportBASIC METABOLIC [id number] 06:23:00 Test Item Value Reference Range Interpretation [...] 0-189 mg/dL VERY HIGH.........>/ = 190 mg/dL [id number] 06:23:00 Test Item Value Reference Range Interpretation Comments MAGNESIUM (test code = MAG) 2.2 MG/DL 1.6-2.3 N PROTHROMBIN [id number] 06:16:00 Test Item Value Reference Range Interpretation [...] myocar dial infarction. 2.0 - 3.0 3. [employer] Flex Developer al prosthesis hear t valves, recurre nt systemic emboli sm. 3.0 - 4.5 PTT [id number] 06:16:00 Test Item Value Reference Range Interpretation Comments PTT ACTIVATED (test code = APTT) 33.9 SECONDS 25.1-36.5 N BASIC METABOLIC [id number] 06:11:00 Test Item Value Reference Range Interpretation [...] LDL (test MG/DL 0-99 code = LDL) [id number] 06:11:00 Test Item Value Reference Range Interpretation Comments MAGNESIUM (test code = MAG) MG/DL 1.6-2.3 BASIC METABOLIC [id number] 06:11:00 Test Item Value Reference Range Interpretation [...] LDL (test MG/DL 0-99 code = LDL) [id number] 06:11:00 Test Item Value Reference Range Interpretation Comments MAGNESIUM (test code = MAG) 2.2 MG/DL 1.6-2.3 N BASIC METABOLIC [id number] 06:08:00 Test Item Value Reference Range Interpretation [...] LDL (test code = LDL) MG/DL 0-99 [id number] 06:08:00 Test Item Value Reference Range Interpretation Comments MAGNESIUM (test code = MAG) MG/DL 1.6-2.3 CBC W/AUTO [id number] 06:00:00 Test Item Value Reference Range Interpretation [...] code = 0.00 K/mm3 0.0-0.1 N NRBC#) Notes Date/Time Note Provider Source 2019-09-22 20:00:00-00:00 [id number] [place] [address] PATIENT NAME: LEYDA GARRETT ADMIT DATE: 08/06/19 ACCOUNT NO: [id number] ROOM NO: ZSI05 AGE: 84 REPORT TYPE: DISCHARGE SUMMARY REPORT SEX: F ADMITTING PHYSICIAN:Robi Schroeder MD ATTENDING PHYSICIAN:Robi Schroeder MD ADMISSION DATE: 08/06/2019 DISCHARGE DATE: 08/11/2019 DISCHARGE DIAGNOSES: Severe right internal carotid artery stenosis, status post right carotid endarterectomy, moderate coronary artery disease with stent placement to be treated medi jorge a, hypertension, hyperlipidemia, hypothyroidism, small left apical pneumothorax, fall after carot id endarterectomy, confusion postoperatively, hyponatremia, and paroxysmal at rial fibrillation. HOSPITAL COURSE: The patient is an 84-ye ar-old female who has been followed by her commercial relationship manager, Dr. Wilson and was salomon ving progressive angina and dyspnea on exertion. She underwent a cardiac catheterizatio n, was found to have moderate coronary artery disease, which will be t reated medically. The patient also had a carotid Doppler done at Dr Nely Wilson's office and was noted to 89-90% right ICA lesion and about a 50% to 70%. She was admitted to the hospital on 08/06/2019 and was taken to the operating room where she un derwent a right carotid endarterectomy with hemashield patch arterioplas ty. She tolerated the procedure well and was taken to the SICU in a st able condition. While in SICU she maintained a normal sinus rhythm and stable blood pressure. She did have some post op confuison and fell. She had a CT scan of the brain done which was within normal limits. She also had hyponatremia and paroxysmal atrail fibrillation post op which was treated. The char ent was requiring physical therapy for ambulation. Her confusion improved a nd she was discharged to home in a stable condition. She ahs been instructed o n her wound carea nd to continue taking her medications as prescribed pe r the discharge MAR. DICTATION ENDS HERE Dictated By: NA Frausto for Ro zeny Schroeder MD WT: DS:CRISTINA/JULIO C/JHOAN Conf#: [id number]/DID#: [id number] Authenticated and Edited by NA Keys On 09/23/19 2:39:25 PM Authenticated by Robi Schroeder MD On 020 03:06:35 PM PATIENT NAME: LEYDA GARRETT ENDER at 1507 at 1507 PATIENT NAME: LEYDA GARRETTKS 2019-08-11 21:51:00-00:00 [facility] ([facility]) Hospitalist Progress Note REPORT#:[id number] REPORT STATUS: Signed DATE:08/11/19 TIME: 2150 PATIENT: LEYDA GARRETT UNIT #: [id number] [address]OM[address]BED: [address] : 36 AGE: 84 SEX: F ATTEND: Hernesto Schroeder MD ADM AUTHOR: Coral Carrasquillo MD * ALL edits or amendments must be made on the Buzz Referrals/computer document * Subjective Chief Complaint: 84 y/o WF post R CEA , looks comfortable, less c onfused, sitting up in the chair, anxious to go home Still has sitter, still in ICU Objective General VS/I O: Vital Signs: Date Time Temp Pulse Resp B/P B/P Pulse O2 O2 Flow FiO2 Mean Ox Delivery Rate 08/10 1100 61 17 96 08/10 1033 59 18 158/79 113 95 08/10 1003 65 19 172/82 118 95 08/10 0933 67 20 169/72 103 97 08/10 0903 70 22 125/60 86 100 08/10 0833 68 18 167/72 104 100 / 0811 69 21 181/77 111 99 08/10 0803 73 16 199/148 168 98 08/10 0800 97.1 08/10 0733 60 21 145/68 98 95 /18 0703 67 18 154/70 101 98 /18 0603 67 18 138/60 87 99 / 0527 65 15 148/67 96 96 08/10 0503 63 22 140/65 94 97 08/10 0403 66 26 152/65 94 99 08/10 0333 63 20 143/92 113 98 08/10 0233 60 19 126/80 100 91 / 0133 70 20 150/67 97 91 / 0003 59 14 133/62 89 99 08/09 2333 65 21 146/65 93 99 08/09 2303 68 29 133/64 92 99 08/09 2300 70 21 148/64 92 99 08/09 2223 74 22 154/67 97 92 08/09 2212 71 14 177/78 112 100 24 hour I O ending at 0700: 08/10 0700 08/09 1900 Intake Total 450.00 132.00 Output Total Balance 450.00 132.00 Intake, IV 100.00 132.00 Intake, Oral 350 Number Voids 3 5 Patient Weight Weight (lb): 120 Weight (oz): 0 Weight (kg): 54.431 Medications: Active Meds + DC'd Last 24 Hrs Magnesium Sulfate/Dextrose 100 ML NOW ONE IV (DC ) Potassium Chloride 40 MEQ NOW ONE PO (DC) Amiodarone HCl 200 MG BID PO (DCD) Metoprolol Tartrate 25 MG Q12HR PO (DCD) Phenylephrine HCl 60 MG ASDIR IV (DCD) Sodium Chloride 244 ML Famotidine 20 MG DAILY PO (DCD) Aspirin 81 MG DAILY PO (DCD) Cholecalciferol 1,000 UNIT DAILY PO (DCD) Clopidogrel Bisulfate 75 MG DAILY PO (DCD) Hydrochlorothiazide 25 MG DAILY PO (DCD) Hydroxocobalamin 500 MCG DAILY PO (DCD) Iron/Minerals/Multivitamins 1 EA DAILY PO (DCD) Lactobacillus Acidoph/Bulgaricus 1 PKT DAILY PO (DCD) Levothyroxine Sodium 75 MCG DAILY PO (DCD) Losartan Potassium 100 MG DAILY PO (DCD) Atorvastatin Calcium 80 MG BEDTIME PO (DCD) Fenofibrate 54 MG BEDTIME PO (DCD) Mupirocin 1 APPLIC BID NASAL (DC) Exquw-7-Amgt Ethyl Esters 2 GM BID PO (DCD) Calcium Acetate 667 MG C MEALS PO (DCD) Benzocaine/Menthol 1 EACH Q2H PRN PRN MM (DCD) Pregabalin 50 MG TID PO (DCDr) Acetaminophen 650 MG Q4H PRN PRN PO (DCD) Bisacodyl 10 MG ASDIR PRN RECTAL (DCD) Hydralazine HCl 10 MG Q8H PRN PRN IV (DCD) Ondansetron HCl 4 MG Q8H PRN PRN IV (DCD) Phenol 5 SPRAY Q2H PRN PRN MM (DCD) Physical Exam General appearance: alert, awake Diagnosis, Assessment Plan Hospital course to date: 84 year old female with atherosclerosis and CAD (2-vessel disease with RCA stents), bilateral carotid d isease (R > L) presented to [facility] on 08-05 for right carotid endarterectomy. ASSESSMENT - Right carotid stenosis status post right carot id endarterectomy. - CAD with stable angina and stents in right carotid with cardiac catherization on 07-19-2019 - HTN - HLD - Hypothyroidism TSH normal - Sciatica - Diverticulosis - Anemia -Hyponatremia, Na 132 -CKD stage 3 Cr 1.1 -Delerium due to pain meds , agree w DC Lyrica, MRI neg for stroke -Paroxysmal A Fib now in SR - Hypokalemia PLAN 08-07-2019 - Cardiovascular surgery following patient. pt is doing well 08/07 DW daughter Caden awaiting Neuro consult Dw bed side nurse, no fracture of he hip 08/08 Pt just had MRI, looks better over all MRI no stroke Continue PT/OT Dc per Dr schroeder 08/09 Pt is doing better, working w the OT Small Left Pneumo Wants to go home, lives alone, but daugh ter says she will have 16/10 rn progressive care 08/10: HOSPITAL COURSE: 84 y/o female admitted for post operative management. Status post right carotid endartere ctomy on 08/06/19. Patient has a history of coronary artery disease, hypertension, hyperthyroidism an d paroxysmal atrial fibrillation. As of 08/10/19, the patient wants to go home and lives alone with a 24 hour caregiver. MRI negative for stroke. Char simpson has done well and is recovering well. lester is discharged today. Quality Current Medications Current medication review: I attest that the foregoing medication list in t medical record is true, accurate, and complete to the best of my knowled ge. Advanced Care Plan 65 or Older Discussed with: patient Discussion included: code status Electronically Signed by Coral Carrasquillo MD on 07/24 11/12 at 2153 RPT #:[id number] END OF REPORT 2019-08-11 07:43:00-00:00 [facility] ([facility]) Cardiology Progress Note REPORT#:[id number] REPORT STATUS: Signed DATE:08/11/19 TIME: 07 PATIENT: LEYDA GARRETT UNIT #: [id number] ROOM/BED: SI05-A : 36 AGE: 84 SEX: F ATTEND: Hernesto Schroeder MD ADM AUTHOR: Abdulaziz Epps MD * ALL edits or amendments must be made on the el ectronic/computer document * Subjective Chief Complaint: Carotid disease, S/P CEA Patient reports: No: chest pain, palpitations, shortness of breat h. Objective General VS/I O: 24 hour I O ending at 0700: 08/10 0700 08/09 1900 Intake Total 450.00 132.00 Output Total Balance 450.00 132.00 Intake, IV 100.00 132.00 Intake, Oral 350 Number Voids 3 5 Vital Signs: Date Time Temp Pulse Resp B/P B/P Pulse O2 O2 F low FiO2 Mean Ox Delivery Rate 08/10 0703 67 18 154/70 101 98 08/10 0603 67 18 138/60 87 99 08/10 0527 65 15 148/67 96 96 08/10 0503 63 22 140/65 94 97 08/10 0403 66 26 152/65 94 99 08/10 0333 63 20 143/92 113 98 08/10 0233 60 19 126/80 100 91 08/10 0133 70 20 150/67 97 91 08/10 0003 59 14 133/62 89 99 08/09 2333 65 21 146/65 93 99 05/ 2303 68 29 133/64 92 99 / 2300 70 21 148/64 92 99 08/09 2223 74 22 154/67 97 92 / 2212 71 14 177/78 112 100 08/09 2133 66 18 151/65 93 96 / 2103 62 20 143/66 95 100 08/09 2003 62 144/66 95 100 08/10 1999 98.1 08/10 1999 2.088938 08/09 1903 65 146/64 92 100 08/09 1838 72 05/ 1838 99 / 1833 71 148/65 93 98 / 1817 66 92 08/09 1803 64 159/72 103 62 / 1800 65 89 / 1748 62 116 100 08/09 1733 63 117 94 08/09 1703 64 110 100 08/09 1700 66 98 08/09 1633 62 184/72 104 72 08/09 1603 61 174/98 123 52 08/09 1600 60 83 / 1533 59 173/91 126 85 / 1503 62 152/58 80 100 08/09 1500 63 97 / 1433 62 165/115 134 100 08/09 1403 63 19 155/94 119 89 05 1400 63 14 89 05 1333 64 28 166/70 101 83 08/09 1326 64 16 171/75 108 100 08/09 1300 62 21 86 05 1233 56 15 128/56 81 100 08/09 1203 59 13 132/60 86 08/09 1200 59 14 08/09 1138 58 22 97 08/09 1133 60 13 137/62 89 100 08/09 1108 70 34 71 08/09 1103 69 25 134/60 87 100 08/09 1100 71 18 100 05 1043 98.7 78 14 130/58 82 100 Nasal 3.000 000 98 cannula 08/09 1039 Nasal 3.518859 98 cannula 08/09 1033 70 27 130/58 84 40 08/09 1003 70 21 123/53 77 75 05/ 1000 70 17 95 08/09 0933 75 13 136/67 91 100 08/09 0903 80 14 158/69 99 100 08/09 0900 81 20 98 08/09 0833 69 17 146/63 90 100 08/09 0803 73 14 143/63 90 100 08/09 0800 73 15 100 Patient Weight Weight (lb): 120 Weight (oz): 0 Weight (kg): 54.431 Medications: Active Meds + DC'd Last 24 Hrs Magnesium Sulfate/Dextrose 100 ML NOW ONE IV (DC ) Potassium Chloride 40 MEQ NOW ONE PO (DC) Amiodarone HCl 200 MG BID PO Metoprolol Tartrate 25 MG Q12HR PO Digoxin 0.25 MG Q6H IV (DC) Amiodarone HCl 200 ML ASDIR IV (DC) Phenylephrine HCl 60 MG ASDIR IV (CKD) Sodium Chloride 244 ML Famotidine 20 MG DAILY PO Aspirin 81 MG DAILY PO Cholecalciferol 1,000 UNIT DAILY PO (CKD) Clopidogrel Bisulfate 75 MG DAILY PO Hydrochlorothiazide 25 MG DAILY PO Hydroxocobalamin 500 MCG DAILY PO Iron/Minerals/Multivitamins 1 EA DAILY PO Lactobacillus Acidoph/Bulgaricus 1 PKT DAILY PO (CKD) Levothyroxine Sodium 75 MCG DAILY PO Losartan Potassium 100 MG DAILY PO Atorvastatin Calcium 80 MG BEDTIME PO Fenofibrate 54 MG BEDTIME PO Mupirocin 1 APPLIC BID NASAL Sknab-0-Gklt Ethyl Esters 2 GM BID PO Calcium Acetate 667 MG C MEALS PO Benzocaine/Menthol 1 EACH Q2H PRN PRN MM (CKD) Pregabalin 50 MG TID PO (DA) Acetaminophen 650 MG Q4H PRN PRN PO Bisacodyl 10 MG ASDIR PRN RECTAL Hydralazine HCl 10 MG Q8H PRN PRN IV Ondansetron HCl 4 MG Q8H PRN PRN IV Phenol 5 SPRAY Q2H PRN PRN MM Status post: Right CEA Physical Exam General appearance: alert, awake, oriented Head/Eyes: atraumatic, normocephalic ENT: moist mucosal membranes Neck: no bruit/NL carotids (R CEA site intact), no JVD Cardiovascular: CV assessment: regular rate and rhythm, BP puls es = bilaterally, no murmur Respiratory: clear to auscultation, no distress Abdomen: soft, non-tender, no mass/organomegaly Lower extremity: LE assessment: no edema, 2+ peripheral pulses Musculoskeletal: full range of motion Neuro/COUNTY ASSESSOR: alert, oriented X 3, CN II-XII intact, normal gait, normal reflexes, normal speech, no motor deficits Skin: dry, intact Wound/incision: Location: Right neck. Site condition: dressing clean dry Psychiatry: normal affect, normal judgment/insig ht, normal mood, no hallucinations Results Findings/Data: Laboratory Tests 08/10 129 Chemistry Sodium (137 - 145 MMOL/L) 127 L Potassium (3.5 - 5.1 MMOL/L) 3.1 L Chloride (98 - 107 MMOL/L) 88 L Carbon Dioxide (22 - 30 MMOL/L) 37 H Anion Gap (14 - 24 MMOL/L) 5 L BUN (7 - 17 MG/DL) 17 Creatinine (0.52 - 1.04 MG/DL) 0.90 Glomerular Filtr Rate 60 Glucose (74 - 106 MG/DL) 132 H Calcium (8.4 - 10.2 MG/DL) 10.3 H Magnesium (1.6 - 2.3 MG/DL) 1.7 Laboratory Tests 08/10 129 Hematology WBC (3.8 - 9.8 K/MM3) 9.1 RBC (3.58 - 4.97 M/MM3) 3.49 L Hgb (11.2 - 14.9 G/DL) 10.8 L Hct (33.2 - 43.5 %) 31.8 L MCV (80.7 - 99.1 fL) 91 MCH (27.0 - 34.1 pg) 30.9 MCHC (32.2 - 35.7 %) 34.0 RDW (12.1 - 15.2 %) 13.3 Plt Count (129 - 368 K/MM3) 331 MPV (7.4 - 10.4 fl) 10.2 Neut % (Auto) (43 - 75 %) 72.6 Lymph % (Auto) (14 - 44 %) 13.5 L Bergen % (Auto) (4 - 13 %) 11.1 Eos % (Auto) (0 - 6 %) 2.0 Baso % (Auto) (0 - 2 %) 0.5 Neut # (Auto) (2.0 - 7.6 K/mm3) 6.62 Lymph # (Auto) (1.0 - 3.8 K/mm3) 1.23 Bergen # (Auto) (0.1 - 0.8 K/mm3) 1.01 H Eos # (Auto) (0.0 - 0.2 K/mm3) 0.18 Baso # (Auto) (0.0 - 0.2 K/mm3) 0.05 Immature Gran % (0.0 - 2.0 %) 0.3 Nucleated RBC % (0 - 1.0 %) 0.0 Nucleated RBCs # (Man) (0.0 - 0.1 K/mm3) 0.00 Laboratory Tests 08/10 0130 Chemistry Magnesium (1.6 - 2.3 MG/DL) 1.7 Radiology data: Recent Impressions: RADIOLOGY - XR CHEST 1V 08/09 0817 Report Impression - Status: SIGNED Entered: 08/10/2019 1110 IMPRESSION: Less than 5% residual left apical pneumothorax, platelike left mid lung atelectasis Impression By: [email or web address] Laith Griffin MD Diagnosis, Assessment Plan Consultants: cardiovascular surgery, hospitalist Free Text DxA P Notes Free Text DxA P Notes: IMP: Carotid disease s/p right CEA CAD - stable HTN - controlled. HLP Hypothyroidism PTX - small left apical Fall after CEA, some confusion, resolving, CT n eg, MRI - negative for acute change PAFIB - back in SR Confusion Hyponatremia PLAN: Oral amiodarone. Continue beta alana Ambulate as tolerated. Fluid restrict Replace lytes. at 0659 RPT #:[id number] END OF REPORT 2019-08-11 06:32:00-00:00 [id number] [place] [address] PATIENT NAME: LEYDA GARRETT ADMIT DATE: 08/06/19 ACCOUNT NO: [id number] [facility] AGE: 84 REPORT TYPE: ELECTROCARDIOGRAM SEX: F ADMITTING PHYSICIAN:Robi Schroeder MD ATTENDING PHYSICIAN:Robi Schroeder MD Order: [id number] Test Reason : PAFIB Test Date/Time Stamp: SunAug 11 2019 06:32:35 Blood Pressure : / mmHG Vent. Rate : 069 BPM Atrial Rate : 069 BPM P-R Int : 154 ms QRS Dur : 094 ms QT Int : 388 ms P-R-T Axes : 056 001 047 degree s QTc Int : 415 ms Normal sinus rhythm Normal ECG When compared with ECG of 11-AUG-2019 06:31, No significant change was found Confirmed by SALOME WILSON ([id number]) on 08/11/2019 1:04:59 PM Referred By: Robi Schroeder Confirmed by:SALOME DUBOSE at 1305 PATIENT NAME: LEYDA GARRETT 2019-08-10 21:01:00-00:00 [id number] [place] [id number] PATIENT NAME: LEYDA GARRETT ADMIT DATE: 08/06/19 ACCOUNT NO: [id number] ROOM NO: Z.SI05 AGE: 84 REPORT TYPE: PROGRESS NOTE SEX: F ADMITTING PHYSICIAN:Robi Schroeder MD ATTENDING PHYSICIAN:Robi Schroeder MD DATE: 08/10/2019 CARDIAC SURGERY SERVICE The patient is seen at bedside in the ICU. The p atient currently is stable. Vital signs are stable. The patient is m uch less confused today and appears to be appropriate. CAT scan and MRI of the brain we re negative. Vital signs are stable. We will plan, most likely the patient is going to be discharged home tomorrow. I discussed this with the patient's daniel stevieyolandamiguel a over the telephone. Dictated By: Robi Schroeder MD WT: PN:ZREJI/JUSTINE/JHOAN Conf#: [id number]/DID#: [id number] Authenticated by Robi Schroeder MD On 020 12:44:50 PM at 1245 PATIENT NAME: LEYDA GARRETT 2019-08-10 15:32:00-00:00 [id number] [place] [address] PATIENT NAME: LEYDA GARRETT ADMIT DATE: 08/06/19 ACCOUNT NO: [id number] ROOM NO: Z.SI05 AGE: 84 REPORT TYPE: PROGRESS NOTE SEX: F ADMITTING PHYSICIAN:Robi Schroeder MD ATTENDING PHYSICIAN:Robi Schroeder MD DATE: 08/10/2019 SUBJECTIVE: She does not have any new co mplaints. Her sitter tells me that she noted her to be hallucinating today, was seeing ants on the wall. She also was seeing some relatives in her room, even though n obody was there. She has otherwise remained fairly calm. She lilliana ins occasionally impulsive, wanting to get out of bed without being assisted. S he did ambulate with physical therapy. OBJECTIVE: On examination, she is alert and oriented to self and place. She is overall appropriately interactive. She did not a ppear to be responding to any internal stimuli. LABORATORY DATA: There have been no pertinent la bs since I last saw her. ASSESSMENT AND RECOMMENDATIONS: In [facility], this 84-year-old woman with a past medical history of hypertens ion, hyperlipidemia, coronary artery disease status post stenting, presented with significant bilate ral internal carotid artery disease. She underwent a right carotid endartere ctomy on 08/06/2019. In the postoperative period, she had fluctuated from be ing fairly appropriate and interactive, to displaying episodes of confusion , inability to follow instructions, had fallen twice as a result of th at because she got out of bed unassisted. These events were investigated. A me tabolic workup did not reveal any etiology of a metabolic encephalopathy. MRI of the brain did not reveal any acute strokes. She remains c onfused, has occasional hallucinations, as detailed above. The etiology of that is not clear. 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 I will not medicate her for now. If possible, she may benefit from being discharged from ICU to a regular room. Per nurse 's report, she has been sleeping well, not requiring sleep aids. Dictated By: Gonzalo Kent MD WT: PN:CRISTINA/MARTHA/JHOAN Conf#: [id number]/DID#: [id number] Authenticated by Gonzalo Kent MD On 0 09:42:34 PM PATIENT NAME: LEYDA GARRETT at 2142 PATIENT NAME: LEYDA GARRETT 2019-08-10 13:42:00-00:00 [facility] ([facility] Hospitalist Progress Note REPORT#:[id number] REPORT STATUS: Signed DATE:08/10/19 TIME: 1342 PATIENT: LEYDA GARRETT UNIT #: [id number] ROOM/BED: SI05-A : 36 AGE: 84 SEX: F ATTEND: Hernesto Schroeder MD ADM AUTHOR: Mirella Francis MD * ALL edits or amendments must be made on the el [employer]/computer document * Subjective Chief Complaint: 84 y/o WF post R CEA , looks comfortable, less c onfused, sitting up in the chair, anxious to go home Still has sitter, still in ICU Review of Systems Constitutional: Denies: chills, fatigue, generalized weakness. Respiratory: Denies: pleuritic pain. Cardiovascular: Denies: chest pain. Neuro: Denies: focal weakness, gait problem, headache, seizure. Psych: Denies: confusion. All systems rev neg: except as marked Objective General VS/I O: Vital Signs: Date Time Temp Pulse Resp B/P B/P Pulse O2 O2 F low FiO2 Mean Ox Delivery Rate 05/17 1138 58 22 97 05/17 1133 60 13 137/62 89 100 05/17 1108 70 34 71 05/17 1103 69 25 134/60 87 100 05/17 1100 71 18 100 05/17 1043 98.7 78 14 130/58 82 100 Nasal 3.000 000 98 cannula 05/17 1039 Nasal 3.423803 98 cannula 05/17 1033 70 27 130/58 84 40 05/17 1003 70 21 123/53 77 75 05/17 1000 70 17 95 05/17 0933 75 13 136/67 91 100 05/17 0903 80 14 158/69 99 100 05/17 0900 81 20 98 05/17 0833 69 17 146/63 90 100 05/17 0803 73 14 143/63 90 100 05/17 0800 73 15 100 05/17 0733 74 21 163/64 92 100 05/17 0721 72 14 177/73 105 100 05/17 0709 72 15 181/77 110 100 05/17 0700 72 13 88 05/17 0533 72 16 159/76 103 100 05/17 0403 62 13 105/61 78 90 05/17 0333 67 17 131/58 83 92 05/17 0303 74 16 157/68 98 94 05/17 0233 67 18 119/53 77 93 05/17 0229 68 20 95 05/17 0227 69 21 94 05/17 0203 68 15 143/65 93 82 05/17 0200 69 13 95 05/17 0133 71 19 153/70 100 70 05/17 0103 88 20 96 05/17 0100 90 20 87 05/17 0058 86 17 96 05/17 0034 88 14 95 05/17 0033 89 14 143 94 05/17 0028 90 16 107 95 05/17 0024 17 107 05/17 0020 95 16 89 05/17 0015 93 17 91 05/17 0010 91 15 142/65 94 94 05/17 0005 74 23 140/63 91 98 05/17 0000 115 15 145/65 94 89 05/16 2355 83 14 99 89 05/16 2350 120 15 135/63 91 93 05/16 2345 94 16 152/66 95 95 05/16 2340 93 14 154/69 99 91 05/16 2335 88 15 144/65 94 95 05/16 2330 96 13 145/65 94 93 05/16 2325 99 12 154/67 96 85 05/16 2320 98 15 136/63 91 93 05/16 2315 97 14 151/68 98 90 05/16 2310 98 14 159/71 102 90 05/16 2305 97 14 94 05/16 2300 98 14 97 05/16 2255 97 12 96 05/16 2250 101 94 05/16 2245 100 18 149/67 96 90 05/16 2240 95 12 153/67 96 89 05/16 2236 94 13 96 05/16 2233 96 16 100 05/16 2230 88 14 79 05/16 2215 98 20 91 05/16 2200 118 15 92 05/16 2145 114 16 122/52 75 88 05/16 2130 119 13 123/57 82 100 05/16 2119 108 18 88/48 64 83 05/16 2117 114 18 87/44 63 88 05/16 2115 108 17 93 05/16 2112 108 15 85/42 60 88 05/16 2111 103 17 82/44 56 90 05/16 2110 107 17 76/45 54 88 05/16 2107 117 19 75/41 53 83 05/16 2105 116 21 76/40 56 86 05/16 2102 115 18 65/31 40 53 05/16 2100 123 16 71/34 46 50 05/16 2056 128 19 68/41 48 62 05/16 3 117 15 61/45 50 63 05/16 2050 119 16 71/51 56 94 05/16 2044 120 16 87 05/16 2029 85 17 83 05/16 2020 89 24 124/54 78 87 05/16 2014 91 17 92 05/16 1999 98.5 89 24 124/54 77 94 05/16 1999 94 14 94 05/16 1951 94 23 154/68 98 99 05/16 1945 95 17 91 05/16 1930 Nasal 3.966742 cannula 05/16 1930 96 15 90 05/16 1921 94 17 119/56 81 80 05/16 1915 95 15 83 05/16 1900 96 18 91 05/16 1848 92 18 92 05/16 1845 97 19 96 05/16 1830 98 21 94 05/16 1821 97 16 128/62 89 95 05/16 1815 98 20 69 05/16 1800 93 16 91 05/16 1751 94 23 166/66 95 89 05/16 1745 92 14 93 05/16 1730 92 18 85 05/16 1721 90 11 162/70 100 90 05/16 1715 91 15 89 05/16 1700 91 16 91 05/16 1651 90 15 135/62 89 94 05/16 1645 91 14 96 05/16 1630 96 33 84 05/16 1621 96 21 131/61 88 90 05/16 1615 90 16 89 05/16 1600 69 20 89 05/16 1551 85 17 120/53 77 91 05/16 1545 88 15 89 05/16 1530 96 30 70 05/16 1521 94 22 137/60 86 100 05/16 1517 93 22 49 05/16 1515 92 22 66 05/16 1500 94 17 89 05/16 1451 96 16 126/59 85 43 05/16 1445 94 17 96 05/16 1430 99 16 96 05/16 1421 126/58 05/16 1410 97 15 82 05/16 1400 99 29 47 05/16 1351 97 19 108/50 72 47 05/16 1350 98 18 73 05/16 1345 99 18 95 24 hour I O ending at 0700: 08/09 0700 05/16 1900 Intake Total 203.13 600 Output Total 900 Balance -696.87 600 Intake, IV 203.13 Intake, Oral 500 Intake, Oral 100 Supplement Number Voids 4 Output, Urine 900 Patient 54.431 kg Weight Weight Stated/Reported Measurement Method Patient Weight Weight (lb): 120 Weight (oz): 0 Weight (kg): 54.431 Medications: Documentation of Current Medications in the [facility] Record : I attest that the foregoing medication list in t medical record is true, accurate, and complete to the best of my knowled ge. Active Meds + DC'd Last 24 Hrs Amiodarone HCl 200 MG BID PO Metoprolol Tartrate 25 MG Q12HR PO Digoxin 0.25 MG Q6H IV (DC) Magnesium Sulfate/Dextrose 100 ML NOW ONE IV (DC ) Potassium Chloride 10 MEQ ONCE ONE PO (DC) Potassium Chloride 20 MEQ ONCE ONE PO (DC) Potassium Chloride 50 ML ONCE ONE IV (DC) Digoxin 0.5 MG NOW ONE IV (DC) Amiodarone HCl 200 ML ASDIR IV (DC) Phenylephrine HCl 60 MG ASDIR IV (CKD) Sodium Chloride 244 ML Famotidine 20 MG DAILY PO Aspirin 81 MG DAILY PO Cholecalciferol 1,000 UNIT DAILY PO (CKD) Clopidogrel Bisulfate 75 MG DAILY PO Hydrochlorothiazide 25 MG DAILY PO Hydroxocobalamin 500 MCG DAILY PO Iron/Minerals/Multivitamins 1 EA DAILY PO Lactobacillus Acidoph/Bulgaricus 1 PKT DAILY PO (CKD) Levothyroxine Sodium 75 MCG DAILY PO Losartan Potassium 100 MG DAILY PO Atorvastatin Calcium 80 MG BEDTIME PO Fenofibrate 54 MG BEDTIME PO Mupirocin 1 APPLIC BID NASAL Dyffl-9-Gfus Ethyl Esters 2 GM BID PO Calcium Acetate 667 MG C MEALS PO Benzocaine/Menthol 1 EACH Q2H PRN PRN MM (CKD) Pregabalin 50 MG TID PO (DA) Acetaminophen 650 MG Q4H PRN PRN PO Bisacodyl 10 MG ASDIR PRN RECTAL Hydralazine HCl 10 MG Q8H PRN PRN IV Ondansetron HCl 4 MG Q8H PRN PRN IV Phenol 5 SPRAY Q2H PRN PRN MM Physical Exam General appearance: alert, awake Head/Eyes: atraumatic ENT: moist mucosal membranes Neck: R neck site clean Cardiovascular: normal heart sounds, regular rat e rhythm Respiratory: aerating well, clear to auscultatio n Abdomen: non-tender, normal bowel sounds, no dis tention Extremities: moves all, no clubbing, no cyanosis Neuro/COUNTY ASSESSOR: alert, no motor deficits Wound/incision: Location: R neck Results Findings/Data: Laboratory Tests 08/09 08/08 08/08 0430 2305 2115 Chemistry Sodium (137 - 145 MMOL/L) 132 L 130 L 129 L Potassium (3.5 - 5.1 MMOL/L) 3.7 3.3 L 2.9 L Chloride (98 - 107 MMOL/L) 92 L 93 L 94 L Carbon Dioxide (22 - 30 MMOL/L) 37 H 32 H 31 H Anion Gap (14 - 24 MMOL/L) 7 L BUN (7 - 17 MG/DL) 20 H 23 H 24 H Creatinine (0.52 - 1.04 MG/DL) 1.10 H 1.00 1.10 H Glomerular Filtr Rate 47 53 47 Glucose (74 - 106 MG/DL) 124 H 139 H 120 H Calcium (8.4 - 10.2 MG/DL) 10.6 H 10.1 9.3 Phosphorus (2.5 - 4.5 MG/DL) 3.3 Magnesium (1.6 - 2.3 MG/DL) 2.2 1.8 1.6 Laboratory Tests 08/09 08/08 0430 2115 Hematology WBC (3.8 - 9.8 K/MM3) 8.7 9.1 RBC (3.58 - 4.97 M/MM3) 3.56 L 2.98 L Hgb (11.2 - 14.9 G/DL) 10.8 L 9.2 L Hct (33.2 - 43.5 %) 32.8 L 27.8 L MCV (80.7 - 99.1 fL) 92 93 MCH (27.0 - 34.1 pg) 30.3 30.9 MCHC (32.2 - 35.7 %) 32.9 33.1 RDW (12.1 - 15.2 %) 13.4 13.8 Plt Count (129 - 368 K/MM3) 286 268 MPV (7.4 - 10.4 fl) 10.2 10.3 Neut % (Auto) (43 - 75 %) 75.7 H 71.0 Lymph % (Auto) (14 - 44 %) 12.6 L 14.5 Bergen % (Auto) (4 - 13 %) 9.6 12.9 Eos % (Auto) (0 - 6 %) 1.3 1.0 Baso % (Auto) (0 - 2 %) 0.3 0.3 Neut # (Auto) (2.0 - 7.6 K/mm3) 6.57 6.46 Lymph # (Auto) (1.0 - 3.8 K/mm3) 1.09 1.32 [place] # (Auto) (0.1 - 0.8 K/mm3) 0.83 H 1.17 H Eos # (Auto) (0.0 - 0.2 K/mm3) 0.11 0.09 Baso # (Auto) (0.0 - 0.2 K/mm3) 0.03 0.03 Immature Gran % (0.0 - 2.0 %) 0.5 0.3 Nucleated RBC % (0 - 1.0 %) 0.0 0.0 Nucleated RBCs # (Man) (0.0 - 0.1 K/mm3) 0.00 0.00 Radiology data: Recent Impressions: RADIOLOGY - XR CHEST 1V 08/09 0817 Report Impression - Status: SIGNED Entered: 08/10/2019 1110 IMPRESSION: Less than 5% residual left apical pneumothorax, platelike left mid lung atelectasis Impression By: [email or web address] Laith Griffin MD Diagnosis, Assessment Plan Hospital course to date: 84 year old female with atherosclerosis and CAD (2-vessel disease with RCA stents), bilateral carotid d isease (R > L) presented to [facility] on 08-05 for right carotid endarterectomy. ASSESSMENT - Right carotid stenosis status post right carot id endarterectomy. - CAD with stable angina and stents in right carotid with cardiac catherization on 07-19-2019 - HTN - HLD - Hypothyroidism TSH normal - Sciatica - Diverticulosis - Anemia -Hyponatremia, Na 132 -CKD stage 3 Cr 1.1 -Delerium due to pain meds , agree w DC Lyrica, MRI neg for stroke -Paroxysmal A Fib now in SR - Hypokalemia PLAN 08-07-2019 - Cardiovascular surgery following patient. pt is doing well 08/07 DW daughter Caden awaiting Neuro consult Dw bed side nurse, no fracture of he hip 08/08 Pt just had MRI, looks better over all MRI no stroke Continue PT/OT Dc per Dr schroeder 08/09 Pt is doing better, working w the OT Small Left Pneumo Wants to go home, lives alone, but daugh ter says she will have 16/10 rn progressive care Quality Advanced Care Plan 65 or Older Discussed with: patient Discussion included: code status Electronically Signed by Mirella Francis MD on at 1347 RPT #:[id number] END OF REPORT 2019-08-10 08:08:00-00:00 [facility] ([facility] Cardiology Progress Note REPORT#:[id number] REPORT STATUS: Signed DATE:08/10/19 TIME: 807 PATIENT: LEYDA GARRETT UNIT #: [id number] [address]OM[address]BED: [address] : 36 AGE: 84 SEX: F ATTEND: Hernesto Schroeder MD ADM AUTHOR: Abdulaziz Epps MD * ALL edits or amendments must be made on the [employer] document * Subjective Chief Complaint: Carotid disease, S/P CEA Patient reports: No: chest pain, palpitations, shortness of breat h. Objective General VS/I O: 24 hour I O ending at 0700: 08/09 0700 08/08 1900 Intake Total 600 Output Total Balance 600 Intake, Oral 500 Intake, Oral 100 Supplement Number Voids 4 Patient 54.431 kg Weight Weight Stated/Reported Measurement Method Vital Signs: Date Time Temp Pulse Resp B/P B/P Pulse O2 O2 F low FiO2 Mean Ox Delivery Rate 08/09 0229 68 20 95 08/09 0227 69 21 94 08/09 0203 68 15 143/65 93 82 08/09 0200 69 13 95 08/09 0133 71 19 153/70 100 70 08/09 0103 88 20 96 08/09 0100 90 20 87 08/09 0058 86 17 96 08/09 0034 88 14 95 / 0033 89 14 143 94 08/09 0028 90 16 107 95 08/09 0024 17 107 08/09 0020 95 16 89 08/09 0015 93 17 91 08/09 0010 91 15 142/65 94 94 08/09 0005 74 23 140/63 91 98 08/09 0000 115 15 145/65 94 89 08/08 2355 83 14 99 89 08/08 2350 120 15 135/63 91 93 05/16 2345 94 16 152/66 95 95 08/08 2340 93 14 154/69 99 91 05/ 2335 88 15 144/65 94 95 08/08 2330 96 13 145/65 94 93 08/08 2325 99 12 154/67 96 85 08/08 2320 98 15 136/63 91 93 08/08 2315 97 14 151/68 98 90 08/08 2310 98 14 159/71 102 90 05/16 2305 97 14 94 05/16 2300 98 14 97 05/16 2255 97 12 96 05/16 2250 101 94 05/16 2245 100 18 149/67 96 90 05/16 2240 95 12 153/67 96 89 05/16 2236 94 13 96 05/16 2233 96 16 100 05/16 2230 88 14 79 05/16 2215 98 20 91 05/16 2200 118 15 92 05/16 2145 114 16 122/52 75 88 05/16 2130 119 13 123/57 82 100 05/16 2119 108 18 88/48 64 83 05/16 2117 114 18 87/44 63 88 05/16 2115 108 17 93 05/16 2112 108 15 85/42 60 88 05/16 2111 103 17 82/44 56 90 05/16 2110 107 17 76/45 54 88 05/16 2107 117 19 75/41 53 83 05/16 2105 116 21 76/40 56 86 05/16 2102 115 18 65/31 40 53 05/16 2100 123 16 71/34 46 50 05/16 2056 128 19 68/41 48 62 05/16 2053 117 15 61/45 50 63 05/16 2051 119 16 71/51 56 94 05/16 5 120 16 87 05/16 2030 85 17 83 05/16 2020 89 24 124/54 78 87 05/16 2014 91 17 92 05/16 1999 94 14 94 05/16 1951 94 23 154/68 98 99 05/16 1945 95 17 91 05/16 1930 Nasal 3.200323 cannula 05/16 1930 96 15 90 05/16 1921 94 17 119/56 81 80 05/16 1915 95 15 83 05/16 1900 96 18 91 05/16 1848 92 18 92 05/16 1845 97 19 96 05/16 1830 98 21 94 05/16 1821 97 16 128/62 89 95 05/16 1815 98 20 69 05/16 1800 93 16 91 05/16 1751 94 23 166/66 95 89 05/16 1745 92 14 93 05/16 1730 92 18 85 05/16 1721 90 11 162/70 100 90 05/16 1715 91 15 89 05/16 1700 91 16 91 05/16 1651 90 15 135/62 89 94 05/16 1645 91 14 96 05/16 1630 96 33 84 05/16 1621 96 21 131/61 88 90 05/16 1615 90 16 89 05/16 1600 69 20 89 05/16 1551 85 17 120/53 77 91 05/16 1545 88 15 89 05/16 1530 96 30 70 05/16 1521 94 22 137/60 86 100 05/16 1517 93 22 49 05/16 1515 92 22 66 05/16 1500 94 17 89 05/16 1451 96 16 126/59 85 43 05/16 1445 94 17 96 05/16 1430 99 16 96 05/16 1421 126/58 05/16 1410 97 15 82 05/16 1400 99 29 47 05/16 1351 97 19 108/50 72 47 05/16 1350 98 18 73 05/16 1345 99 18 95 05/16 1330 103 20 88 05/16 1321 101 14 139/60 87 100 05/16 1315 100 16 100 05/16 1300 106 25 97 05/16 1251 101 16 139/60 87 97 05/16 1245 100 16 98 05/16 1230 99 18 94 05/16 1221 100 22 142/61 88 81 05/16 1215 101 16 95 05/16 1200 99 13 94 05/16 1151 98 19 132/61 88 72 05/16 1145 94 14 93 05/16 1139 93 14 162/70 100 93 05/16 1130 94 15 96 05/16 1128 94 14 181/77 111 84 05/16 1121 93 16 176/75 108 84 05/16 1115 93 17 81 05/16 1103 93 10 152/65 94 05/16 1100 95 13 05/16 1033 98.7 93 23 05/16 1026 Nasal 3.647065 100 cannula 05/16 1016 93 24 94 05/16 1015 92 17 94 05/16 1005 90 41 97 05/16 1000 93 15 95 05/16 0959 94 20 168/69 99 95 05/16 0945 86 27 95 05/16 0930 81 14 92 05/16 0921 82 15 123/58 84 91 05/16 0915 80 17 93 05/16 0900 84 18 91 05/16 0851 76 15 127/57 82 92 05/16 0845 74 19 94 05/16 0830 75 15 95 05/16 0821 85 12 120/54 78 93 08/08 0815 82 14 93 Patient Weight Weight (lb): 120 Weight (oz): 0 Weight (kg): 54.431 Medications: Active Meds + DC'd Last 24 Hrs Digoxin 0.25 MG Q6H IV (CKD) Magnesium Sulfate/Dextrose 100 ML NOW ONE IV (DC ) Potassium Chloride 10 MEQ ONCE ONE PO (DC) Potassium Chloride 20 MEQ ONCE ONE PO (DC) Potassium Chloride 50 ML ONCE ONE IV (DC) Digoxin 0.5 MG NOW ONE IV (DC) Amiodarone HCl 200 ML ASDIR IV (CKD) Phenylephrine HCl 60 MG ASDIR IV (CKD) Sodium Chloride 244 ML Famotidine 20 MG DAILY PO Aspirin 81 MG DAILY PO Cholecalciferol 1,000 UNIT DAILY PO (CKD) Clopidogrel Bisulfate 75 MG DAILY PO Hydrochlorothiazide 25 MG DAILY PO Hydroxocobalamin 500 MCG DAILY PO Iron/Minerals/Multivitamins 1 EA DAILY PO Lactobacillus Acidoph/Bulgaricus 1 PKT DAILY PO (CKD) Levothyroxine Sodium 75 MCG DAILY PO Losartan Potassium 100 MG DAILY PO Atorvastatin Calcium 80 MG BEDTIME PO Fenofibrate 54 MG BEDTIME PO Mupirocin 1 APPLIC BID NASAL Tslok-4-Uqfw Ethyl Esters 2 GM BID PO Calcium Acetate 667 MG C MEALS PO Benzocaine/Menthol 1 EACH Q2H PRN PRN MM (CKD) Pregabalin 50 MG TID PO (DA) Acetaminophen 650 MG Q4H PRN PRN PO Bisacodyl 10 MG ASDIR PRN RECTAL Hydralazine HCl 10 MG Q8H PRN PRN IV Ondansetron HCl 4 MG Q8H PRN PRN IV Phenol 5 SPRAY Q2H PRN PRN MM Status post: Right CEA Physical Exam General appearance: alert, awake, oriented Head/Eyes: atraumatic, normocephalic ENT: moist mucosal membranes Neck: no bruit/NL carotids (R CEA site intact), no JVD Cardiovascular: CV assessment: regular rate and rhythm, BP puls es = bilaterally, no murmur Respiratory: clear to auscultation, no distress Abdomen: soft, non-tender, no mass/organomegaly Lower extremity: LE assessment: no edema, 2+ peripheral pulses Musculoskeletal: full range of motion Neuro/COUNTY ASSESSOR: alert, oriented X 3, CN II-XII intact, normal gait, normal reflexes, normal speech, no motor deficits Skin: dry, intact Wound/incision: Location: Right neck. Site condition: dressing clean dry Psychiatry: normal affect, normal judgment/insig ht, normal mood, no hallucinations Results Findings/Data: Laboratory Tests 08/09 2305 2115 Chemistry Sodium (137 - 145 MMOL/L) 132 L 130 L 129 L Potassium (3.5 - 5.1 MMOL/L) 3.7 3.3 L 2.9 L Chloride (98 - 107 MMOL/L) 92 L 93 L 94 L Carbon Dioxide (22 - 30 MMOL/L) 37 H 32 H 31 H Anion Gap (14 - 24 MMOL/L) 7 L BUN (7 - 17 MG/DL) 20 H 23 H 24 H Creatinine (0.52 - 1.04 MG/DL) 1.10 H 1.00 1.10 H Glomerular Filtr Rate 47 53 47 Glucose (74 - 106 MG/DL) 124 H 139 H 120 H Calcium (8.4 - 10.2 MG/DL) 10.6 H 10.1 9.3 Phosphorus (2.5 - 4.5 MG/DL) 3.3 Magnesium (1.6 - 2.3 MG/DL) 2.2 1.8 1.6 Laboratory Tests 08/09 2115 Hematology WBC (3.8 - 9.8 K/MM3) 8.7 9.1 RBC (3.58 - 4.97 M/MM3) 3.56 L 2.98 L Hgb (11.2 - 14.9 G/DL) 10.8 L 9.2 L Hct (33.2 - 43.5 %) 32.8 L 27.8 L MCV (80.7 - 99.1 fL) 92 93 MCH (27.0 - 34.1 pg) 30.3 30.9 MCHC (32.2 - 35.7 %) 32.9 33.1 RDW (12.1 - 15.2 %) 13.4 13.8 Plt Count (129 - 368 K/MM3) 286 268 MPV (7.4 - 10.4 fl) 10.2 10.3 Neut % (Auto) (43 - 75 %) 75.7 H 71.0 Lymph % (Auto) (14 - 44 %) 12.6 L 14.5 [place] % (Auto) (4 - 13 %) 9.6 12.9 Eos % (Auto) (0 - 6 %) 1.3 1.0 Baso % (Auto) (0 - 2 %) 0.3 0.3 Neut # (Auto) (2.0 - 7.6 K/mm3) 6.57 6.46 Lymph # (Auto) (1.0 - 3.8 K/mm3) 1.09 1.32 [place] # (Auto) (0.1 - 0.8 K/mm3) 0.83 H 1.17 H Eos # (Auto) (0.0 - 0.2 K/mm3) 0.11 0.09 Baso # (Auto) (0.0 - 0.2 K/mm3) 0.03 0.03 Immature Gran % (0.0 - 2.0 %) 0.5 0.3 Nucleated RBC % (0 - 1.0 %) 0.0 0.0 Nucleated RBCs # (Man) (0.0 - 0.1 K/mm3) 0.00 0.00 Laboratory Tests 08/09 08/08 08/08 0430 2305 2115 Chemistry Magnesium (1.6 - 2.3 MG/DL) 2.2 1.8 1.6 Radiology data: Recent Impressions: MAGNETIC RESONANCE IMAGING - MRI BRAIN W/O CONTR AST 08/08 1000 Report Impression - Status: SIGNED Entered: 08/09/2019 1146 IMPRESSION: 1. Mild senescent change. 2. No intrinsic brain mass or recent ischemia. Impression By: Chance - Farhad Preciado M.D. Diagnosis, Assessment Plan Free Text DxA P Notes Free Text DxA P Notes: IMP: Carotid disease s/p right CEA CAD - stable HTN - controlled. HLP Hypothyroidism PTX - small left apical Fall after CEA, some confusion, resolving, CT n eg, MRI - negative for acute change PAFIB - back in SR Confusion PLAN: Oral amiodarone. Continue beta alana, digoxin Ambulate as tolerated. CXR at 0935 RPT #:[id number] END OF REPORT 2019-08-10 05:41:00-00:00 [id number] [place] [address] PATIENT NAME: LEYDA GARRETT ADMIT DATE: 08/06/19 ACCOUNT NO: [id number] ROOM NO: Z.SI05 AGE: 84 REPORT TYPE: ELECTROCARDIOGRAM SEX: F ADMITTING PHYSICIAN:Robi Schroeder MD ATTENDING PHYSICIAN:Robi Schroeder MD Order: [id number] Test Reason : CAD Test Date/Time Stamp: SunAug 10 2019 05:41:36 Blood Pressure : / mmHG Vent. Rate : 075 BPM Atrial Rate : 075 BPM P-R Int : 140 ms QRS Dur : 084 ms QT Int : 352 ms P-R-T Axes : 020 -01 043 degree s QTc Int : 393 ms Normal sinus rhythm Normal ECG When compared with ECG of 09-AUG-2019 21:05, (Un confirmed) Sinus rhythm has replaced Atrial fibrillation Vent. rate has decreased BY 43 BPM Criteria for Septal infarct are no longer presen t ST no longer depressed in Inferior leads ST no longer depressed in Anterolateral leads T wave inversion less evident in Anterolateral l marylin Confirmed by SALOME WILSON ([id number]) on 08/10/2019 7:25:50 AM Referred By: Robi Schroeder Confirmed by:SALOME DUBOSE at 0725 PATIENT NAME: LEYDA GARRETT 2019-08-09 22:48:00-00:00 [id number] [id number] [place] [address] PATIENT NAME: LEYDA GARRETT ADMIT DATE: 08/06/19 ACCOUNT NO: [id number] ROOM NO: Z.SI05 AGE: 84 REPORT TYPE: PROGRESS NOTE SEX: F ADMITTING PHYSICIAN:Robi Schroeder MD ATTENDING PHYSICIAN:Robi Schroeder MD DATE: 08/09/2019 CARDIAC SURGERY SERVICE The patient is seen at bedside in the ICU. The p atient is currently stable. Still feels a little bit of confusion. Vital sig ns are stable. She is going into atrial fibrillation with rapid vent ricular response in the late afternoon and early evening and this controlled wi th IV amiodarone maintenance drip, now back in sinus rhythm and adequate blood pressure. So far CAT scan and MRI scan of the brain are negative. Otherwise, the patien t is stable. Dictated By: Robi Schroeder MD WT: PN:CRISTINA/JUSTINE/JHOAN Conf#: [id number]/DID#: [id number] Authenticated by Robi Schroeder MD On 020 12:44:49 PM at 1245 PATIENT NAME: LEYDA GARRETT 2019-08-09 21:05:00-00:00 [id number] [place] [address] PATIENT NAME: LEYDA GARRETT ADMIT DATE: 08/06/19 ACCOUNT NO: [id number] ROOM NO: Z.SI05 AGE: 84 REPORT TYPE: ELECTROCARDIOGRAM SEX: F ADMITTING PHYSICIAN:Robi Schroeder MD ATTENDING PHYSICIAN:Robi Schroeder MD Order: [id number] Test Reason : CAD Test Date/Time Stamp: SunAug 09 2019 21:05:06 Blood Pressure : / mmHG Vent. Rate : 118 BPM Atrial Rate : 102 BPM P-R Int : 000 ms QRS Dur : 086 ms QT Int : 334 ms P-R-T Axes : 000 -11 208 degree s QTc Int : 468 ms Atrial fibrillation with rapid ventricular respo nse Septal infarct (cited on or before 09-AUG-2019) Marked ST abnormality, possible inferior subendo cardial injury Abnormal ECG When compared with ECG of 09-AUG-2019 09:08, Atrial fibrillation has replaced Sinus rhythm Questionable change in initial forces of Anteros eptal leads ST now depressed in Anterolateral leads T wave inversion now evident in Lateral leads Confirmed by SALOME WILSON ([id number]) on 08/10/2019 7:25:39 AM Referred By: Robi Schroeder Confirmed by:SALOME DUBOSE at 0725 PATIENT NAME: LEYDA GRARETT 2019-08-09 19:40:00-00:00 [id number] [facility] [address] [place] [address] PATIENT NAME: LEYDA GARRETT ADMIT DATE: 08/06/19 ACCOUNT NO: [id number] ROOM NO: [facility] AGE: 84 REPORT TYPE: PROGRESS NOTE SEX: F ADMITTING PHYSICIAN:Robi Schroeder MD ATTENDING PHYSICIAN:Robi Schroeder MD DATE: 08/09/2019 NEUROLOGY PROGRESS NOTE SUBJECTIVE: She is improved today, though remains slightly impulsive, requiring a sitter to make sure she does not get o ut of bed. She otherwise has not shown any agitation or confusion. She ambulated briefl y with physical therapy. OBJECTIVE: On examination, she is alert and orie nted to self, place, and situation. She continues not to display any foca l findings. LABORATORY DATA: Pertinent labs since I last saw her include an MRI of the brain, which was unrevealing. Her urinalysis wa s also unrevealing. ASSESSMENT AND RECOMMENDATIONS: In [facility], this 84-year-old woman with a past medical history of hypertens ion, hyperlipidemia, coronary artery disease, status post stenting, presented with significant bilate ral internal carotid artery disease. She underwent a right carotid endartere ctomy on 08/06/2019. In the postoperative period, she has fluctuated from be ing fairly appropriate and interactive displaying episo miguel angel of confusion, inability to follow instructions, has fallen twice as a result because she got out of bed unassisted. She seems improved today, has not shown any confusion. She still remains impulsive and has required the presence of a sitter to make sure she does not get out of bed unassisted. All her workup h as been unrevealing including a negative urinalysis as well as a normal MRI of the brain with no acu te changes. I have no further recommendations at this time. Dictated By: Gonzalo Kent MD WT: PN:[email or web address]/MARTHA/[email or web address] Conf#: [id number]/DID#: [id number] Authenticated by Gonzalo Kent MD On 0 09:42:32 PM at 2142 PATIENT NAME: LEYDA GARRETT 2019-08-09 15:02:00-00:00 [facility]U [facility] ([facility] Hospitalist Progress Note REPORT#:[id number] REPORT STATUS: Signed DATE:08/09/19 TIME: 1502 PATIENT: LEYDA GARRETT UNIT #: [id number] [address]/BED: [address] : 36 AGE: 84 SEX: F ATTEND: Hernesto Schroeder MD ADM AUTHOR: Mirella Francis MD * ALL edits or amendments must be made on the Buzz Referrals/computer document * Subjective Chief Complaint: 84 y/o WF post R CEA POD 2 , looks comfortable, less confused Review of Systems Constitutional: Denies: chills, fatigue, generalized weakness. Respiratory: Denies: pleuritic pain. Cardiovascular: Denies: chest pain. Neuro: Denies: focal weakness, gait problem, headache, seizure. Psych: Reports: confusion. All systems rev neg: except as marked Objective General VS/I O: Vital Signs: Date Time Temp Pulse Resp B/P B/P Pulse O2 O2 F low FiO2 Mean Ox Delivery Rate 08/08 1350 98 18 73 08/08 1345 99 18 95 08/08 1330 103 20 88 08/08 1321 101 14 139/60 87 100 08/08 1315 100 16 100 08/08 1300 106 25 97 08/08 1251 101 16 139/60 87 97 08/08 1245 100 16 98 08/08 1230 99 18 94 08/08 1221 100 22 142/61 88 81 08/08 1215 101 16 95 08/08 1200 99 13 94 08/08 1151 98 19 132/61 88 72 08/08 1145 94 14 93 08/08 1139 93 14 162/70 100 93 08/08 1130 94 15 96 08/08 1128 94 14 181/77 111 84 05/16 1121 93 16 176/75 108 84 05/16 1115 93 17 81 05/16 1103 93 10 152/65 94 05/16 1100 95 13 05/16 1033 98.7 93 23 05/16 1026 Nasal 3.728252 100 cannula 05/16 1016 93 24 94 05/16 1015 92 17 94 05/16 1005 90 41 97 05/16 1000 93 15 95 05/16 0959 94 20 168/69 99 95 05/16 0945 86 27 95 05/16 0930 81 14 92 05/16 0921 82 15 123/58 84 91 05/16 0915 80 17 93 05/16 0900 84 18 91 05/16 0851 76 15 127/57 82 92 05/16 0845 74 19 94 05/16 0830 75 15 95 05/16 0821 85 12 120/54 78 93 05/16 0815 82 14 93 05/16 0803 88 19 130/57 82 94 05/16 0800 99 42 05/16 0745 88 17 99 05/16 0730 89 21 97 05/16 0721 89 13 131/60 86 98 05/16 0715 89 16 98 05/16 0700 88 16 98 05/16 0651 89 14 127/60 86 97 05/16 0621 88 17 128/60 87 97 05/16 0619 87 16 97 05/16 0551 71 19 125/60 86 96 05/16 0521 77 14 121/58 83 97 05/16 0451 84 13 133/59 85 96 05/16 0438 89 175/76 109 99 05/16 0432 88 13 163/72 104 98 05/16 0359 98.4 05/16 0351 77 15 151/69 99 98 05/16 0321 79 98 05/16 0251 81 15 145/67 97 96 05/16 0221 74 17 139/64 92 99 05/16 0151 70 16 137/60 87 98 05/16 0145 98 05/16 0130 97 05/16 0121 78 16 132/59 85 98 05/16 0051 81 13 126/58 84 97 05/16 0021 82 15 145/62 89 97 05/16 0000 98.6 05/15 2351 79 15 135/63 91 97 05/15 2321 82 15 131/62 89 96 05/15 2251 80 16 140/55 79 96 05/15 2221 80 17 129/58 84 97 08/079 83 08/07 2150 83 20 123/58 84 96 08/075 84 08/070 91 16 08/07 2120 90 142/65 93 95 08/075 86 08/07 2100 84 08/07 2050 86 17 134/60 86 95 08/07 2044 79 08/07 2029 84 95 08/07 2020 81 19 122/57 82 96 08/07 2014 78 97 08/08 1999 66 08/08 1999 Nasal 2.021425 cannula 08/08 1999 98.6 81 19 135/63 87 97 Nasal 2.000 000 cannula 08/07 1951 68 13 116/52 75 96 08/07 1945 67 08/07 1930 76 08/07 1921 82 15 93/44 64 95 08/07 1915 85 08/07 1900 84 14 101/49 71 95 08/07 1830 85 14 99 08/07 1811 80 13 174/72 104 99 08/07 1730 84 17 167/70 101 94 08/07 1700 65 19 122/54 78 98 08/07 1630 63 21 122/84 98 99 08/07 1610 97.8 08/07 1600 64 25 128/55 79 98 08/07 1530 77 25 140/63 91 97 08/07 1522 82 21 98 24 hour I O ending at 0700: 08/08 0700 08/07 1900 Intake Total 100 400 Output Total 800 Balance -700 400 Intake, Oral 100 400 Number 0 Bowel Movements Number Voids 2 4 Output, Urine 800 Patient Weight Weight (lb): 120 Weight (oz): 0 Weight (kg): 54.431 Medications: Documentation of Current Medications in the [facility] Record : I attest that the foregoing medication list in [facility] medical record is true, accurate, and complete to the best of my knowled ge. Active Meds + DC'd Last 24 Hrs Famotidine 20 MG DAILY PO Aspirin 81 MG DAILY PO Cholecalciferol 1,000 UNIT DAILY PO (CKD) Clopidogrel Bisulfate 75 MG DAILY PO Hydrochlorothiazide 25 MG DAILY PO Hydroxocobalamin 500 MCG DAILY PO Iron/Minerals/Multivitamins 1 EA DAILY PO Lactobacillus Acidoph/Bulgaricus 1 PKT DAILY PO (CKD) Levothyroxine Sodium 75 MCG DAILY PO Losartan Potassium 100 MG DAILY PO Atorvastatin Calcium 80 MG BEDTIME PO Fenofibrate 54 MG BEDTIME PO Mupirocin 1 APPLIC BID NASAL Mzxkg-6-Hqcm Ethyl Esters 2 GM BID PO Calcium Acetate 667 MG C MEALS PO Benzocaine/Menthol 1 EACH Q2H PRN PRN MM (CKD) Pregabalin 50 MG TID PO (DA) Acetaminophen 650 MG Q4H PRN PRN PO Bisacodyl 10 MG ASDIR PRN RECTAL Hydralazine HCl 10 MG Q8H PRN PRN IV Ondansetron HCl 4 MG Q8H PRN PRN IV Phenol 5 SPRAY Q2H PRN PRN MM Physical Exam General appearance: alert, awake, oriented Head/Eyes: atraumatic ENT: moist mucosal membranes Neck: R neck site clean Cardiovascular: normal heart sounds, regular rat e rhythm Respiratory: aerating well, clear to auscultatio n Abdomen: non-tender, normal bowel sounds, no dis tention Extremities: moves all, no clubbing, no cyanosis Neuro/COUNTY ASSESSOR: disoriented, alert, no motor deficits Wound/incision: Location: R neck Results Findings/Data: Laboratory Tests 08/07 2126 Urines Urine Color (YELLOW) YELLOW Urine Appearance (CLEAR) CLEAR Urine pH (5.0 - 9.0) 6.0 Ur Specific [place] (1.003 - 1.030) 1.015 Urine Protein (NEGATIVE MG/DL) NEGATIVE Urine Glucose (UA) (NORMAL MG/DL) NORMAL Urine Ketones (NEGATIVE MG/DL) NEGATIVE Urine Blood (NEGATIVE Larry/mm3) NEGATIVE Urine Nitrite (NEGATIVE) NEGATIVE Urine Bilirubin (NEGATIVE MG/DL) NEGATIVE Urine Urobilinogen (NORMAL MG/DL) NORMAL Ur Leukocyte Esterase (NEGATIVE /mm3) NEGATIVE Urine Culture Screen (Culture Chk Criteria) NEG ATIVE, NO CULTURE Radiology data: Recent Impressions: MAGNETIC RESONANCE IMAGING - MRI BRAIN W/O CONTR AST 08/08 1000 Report Impression - Status: SIGNED Entered: 08/09/2019 1146 IMPRESSION: 1. Mild senescent change. 2. No intrinsic brain mass or recent ischemia. Impression By: Chance Preciado M.D. Diagnosis, Assessment Plan Hospital course to date: 84 year old female with atherosclerosis and CAD (2-vessel disease with RCA stents), bilateral carotid d isease (R > L) presented to [facility] on 08-05 for right carotid endarterectomy. ASSESSMENT - Right carotid stenosis status post right carot id endarterectomy. - CAD with stable angina and stends in right carotid with cardiac catherization on 07-19-2019 - HTN - HLD - Hypothyroidism - Sciatica - Diverticulosis - Anemia -Hyponatremia -CKD stage 2 -Delerium due to pain meds , agree w DC Lyrica PLAN 08-07-2019 - Cardiovascular surgery following patient. pt is doing well 08/07 DW daughter Caden awaiting Neuro consult Dw bed side nurse, no fracture of he hip 08/08 Pt just had MRI, looks better over all MRI no stroke Continue PT/OT Dc per Dr schroeder Quality Advanced Care Plan 65 or Older Discussed with: patient Discussion included: code status Electronically Signed by Mirella Francis MD on at 8285 RPT #:[id number] END OF REPORT 2019-08-09 09:08:00-00:00 [id number] [address] PATIENT NAME: LEYDA GARRETT ADMIT DATE: 08/06/19 ACCOUNT NO: [id number] ROOM NO: Z.SI05 AGE: 84 REPORT TYPE: ELECTROCARDIOGRAM SEX: F ADMITTING PHYSICIAN:Robi Schroeder MD ATTENDING PHYSICIAN:Robi Schroeder MD Order: [id number] Test Reason : CAD Test Date/Time Stamp: SunAug 09 2019 09:08:25 Blood Pressure : / mmHG Vent. Rate : 083 BPM Atrial Rate : 083 BPM P-R Int : 140 ms QRS Dur : 084 ms QT Int : 354 ms P-R-T Axes : 076 003 056 degree s QTc Int : 415 ms Normal sinus rhythm Anterior infarct , age undetermined Abnormal ECG When compared with ECG of 07-AUG-2019 04:27, Nonspecific T wave abnormality now evident in An terolateral leads Confirmed by SALOME WILSON ([id number]) on 08/09/2019 11:39:12 AM Referred By: Robi Schroeder Confirmed by:SALOME DUBOSE at 1139 PATIENT NAME: LEYDA GARRETT 2019-08-09 06:15:00-00:00 HCAWU [facility] ([facility] Cardiology Progress Note REPORT#:[id number] REPORT STATUS: Signed DATE:08/09/19 TIME: 06 PATIENT: LEYDA GARRETT UNIT #: [id number] [address]BED: [address] : 36 AGE: 84 SEX: F ATTEND: Hernesto Schroeder MD ADM AUTHOR: Salome Wilson MD * ALL edits or amendments must be made on the Buzz Referrals/[employer] document * Subjective Chief Complaint: Carotid disease, S/P CEA Patient reports: Yes: nausea. No: chest pain, dizziness, palpitat ions, shortness of breath, swelling. Nursing reports: Yes: confused. Free Text Subj Notes Free Text Subj Notes: was doing well, then fell, some confusion, back in ICU, better this am Objective General VS/I O: 24 hour I O ending at 0700: 08/08 0700 08/07 1900 Intake Total 400 Output Total Balance 400 Intake, Oral 400 Number 0 Bowel Movements Number Voids 4 Vital Signs: Date Time Temp Pulse Resp B/P B/P Pulse O2 O2 F low FiO2 Mean Ox Delivery Rate 08/08 0359 98.4 08/08 0351 77 15 151/69 99 98 08/08 0321 79 98 08/08 0251 81 15 145/67 97 96 08/08 0221 74 17 139/64 92 99 08/08 0151 70 16 137/60 87 98 08/08 0145 98 08/08 0130 97 08/08 0121 78 16 132/59 85 98 08/08 0051 81 13 126/58 84 97 08/08 0021 82 15 145/62 89 97 08/08 0000 98.6 08/07 2351 79 15 135/63 91 97 08/07 2321 82 15 131/62 89 96 08/07 2251 80 16 140/55 79 96 08/07 2221 80 17 129/58 84 97 08/07 2159 83 08/07 2151 83 20 123/58 84 96 08/07 2145 84 05/15 0 91 16 05/15 2121 90 142/65 93 95 05/15 2115 86 05/15 2100 84 05/15 2050 86 17 134/60 86 95 05/15 5 79 05/15 2030 84 95 05/15 1 81 19 122/57 82 96 05/15 2014 78 97 05/15 1999 66 05/15 1999 Nasal 2.943888 cannula 05/15 1999 98.6 81 19 135/63 87 97 Nasal 2.0000 00 cannula 05/15 1951 68 13 116/52 75 96 05/15 1945 67 05/15 1930 76 05/15 1921 82 15 93/44 64 95 05/15 1915 85 05/15 1900 84 14 101/49 71 95 05/15 1830 85 14 99 05/15 1811 80 13 174/72 104 99 05/15 1730 84 17 167/70 101 94 05/15 1700 65 19 122/54 78 98 05/15 1630 63 21 122/84 98 99 05/15 1610 97.8 05/15 1600 64 25 128/55 79 98 05/15 1530 77 25 140/63 91 97 05/15 1522 82 21 98 05/15 1500 134/63 90 05/15 1430 79 19 157/70 100 98 05/15 1330 66 17 138/63 90 99 05/15 1300 66 20 143/62 89 99 05/15 1230 68 16 140/65 93 99 05/15 1200 71 22 178/74 107 93 05/15 1142 97.7 05/15 1134 68 15 176/72 103 99 05/15 1105 71 17 168/74 106 93 05/15 1018 64 162/67 96 76 05/15 1013 67 150/67 97 78 05/15 1000 18 05/15 0913 64 17 145/64 92 97 05/15 0837 67 22 132/79 100 99 05/15 0800 63 17 89 05/15 0715 97.6 05/15 0715 Nasal 2.833146 cannula 05/15 0701 63 17 146/67 96 98 05/15 0700 62 16 98 05/15 0635 65 17 05/15 0631 64 20 125/54 78 97 05/15 0630 64 17 97 Patient Weight Weight (lb): 120 Weight (oz): 3.84 Weight (kg): 54.431 Medications: Active Meds + DC'd Last 24 Hrs Famotidine 20 MG DAILY PO Famotidine 20 MG Q12HR PO (DC) Aspirin 81 MG DAILY PO Cholecalciferol 1,000 UNIT DAILY PO (CKD) Clopidogrel Bisulfate 75 MG DAILY PO Duloxetine HCl 20 MG DAILY PO (DC) Hydrochlorothiazide 25 MG DAILY PO Hydroxocobalamin 500 MCG DAILY PO Iron/Minerals/Multivitamins 1 EA DAILY PO Lactobacillus Acidoph/Bulgaricus 1 PKT DAILY PO (CKD) Levothyroxine Sodium 75 MCG DAILY PO Losartan Potassium 100 MG DAILY PO Potassium Chloride 20 MEQ DAILY PO (DC) Atorvastatin Calcium 80 MG BEDTIME PO Fenofibrate 54 MG BEDTIME PO Mupirocin 1 APPLIC BID NASAL Feprk-4-Nsmg Ethyl Esters 2 GM BID PO Calcium Acetate 667 MG C MEALS PO Meperidine HCl 25 MG Q4H PRN PRN IM (DC) Benzocaine/Menthol 1 EACH Q2H PRN PRN MM (CKD) Pregabalin 50 MG TID PO (DA) Tramadol HCl 100 MG Q6H PRN PRN PO (DC) Acetaminophen 650 MG Q4H PRN PRN PO Bisacodyl 10 MG ASDIR PRN RECTAL Calcium Gluconate 1,000 MG ASDIR PRN IV (DC) Sodium Chloride 100 ML Hydralazine HCl 10 MG Q8H PRN PRN IV Nicardipine HCl 25 MG ASDIR PRN IV (DC) Sodium Chloride 250 ML Ondansetron HCl 4 MG Q8H PRN PRN IV Phenol 5 SPRAY Q2H PRN PRN MM Potassium Chloride 10 MEQ ASDIR PRN PO (DC) Status post: Right CEA Nutrition assessment: The data set between the solid lines has been im ported from the dietitian's assessment. Any exceptions have been noted under Provider comments. BMI Calculated: 23.4 Nutrition related diagnosis: Nutrition diagnosis details: Nutrition problem: Nutrition etiology: Nutrition signs and symptoms: Nutrition prescription: Dietitian name: Assessment completed: Provider comments on imported dietitian assessme nt: Physical Exam General appearance: lethargic, alert, oriented, no acute distress, pleasant, conversational, mental status normal, no respira tory distress Head/Eyes: atraumatic, normocephalic ENT: moist mucosal membranes Neck: no bruit/NL carotids (R CEA site intact), no JVD Cardiovascular: CV assessment: regular rate and rhythm, BP puls es = bilaterally, no murmur Respiratory: clear to auscultation, no distress Abdomen: soft, non-tender, no mass/organomegaly Lower extremity: LE assessment: no edema, 2+ peripheral pulses Musculoskeletal: full range of motion Neuro/COUNTY ASSESSOR: alert, oriented X 3, CN II-XII intact, normal gait, normal reflexes, normal speech, no motor deficits Skin: dry, intact Wound/incision: Location: Right neck. Site condition: dressing clean dry Psychiatry: normal affect, normal judgment/insig ht, normal mood, no hallucinations Results Findings/Data: Laboratory Tests 08/07 08/07 1151 1151 Chemistry Sodium (137 - 145 MMOL/L) 135 L Potassium (3.5 - 5.1 MMOL/L) 4.2 Chloride (98 - 107 MMOL/L) 99 Carbon Dioxide (22 - 30 MMOL/L) 33 H Anion Gap (14 - 24 MMOL/L) 7 L BUN (7 - 17 MG/DL) 27 H Creatinine (0.52 - 1.04 MG/DL) 1.20 H Glomerular Filtr Rate 43 Glucose (74 - 106 MG/DL) 102 Calcium (8.4 - 10.2 MG/DL) 9.8 Phosphorus (2.5 - 4.5 MG/DL) 2.6 Magnesium (1.6 - 2.3 MG/DL) 2.3 TSH (0.465 - 4.68 MIU/L) 3.590 Free T4 (0.78 - 2.19 NG/DL) 2.1 Free T4 Index (1.2 - 4.3) 4.4 H Thyroxine (T4) (5.53 - 11.0 UG/DL) 13.10 H T3 Uptake (23.5 - 40.5 % UP) 33.3 Laboratory Tests 08/07 1230 Hematology WBC (3.8 - 9.8 K/MM3) 11.5 H RBC (3.58 - 4.97 M/MM3) 3.63 Hgb (11.2 - 14.9 G/DL) 11.2 Hct (33.2 - 43.5 %) 34.7 MCV (80.7 - 99.1 fL) 96 MCH (27.0 - 34.1 pg) 30.9 MCHC (32.2 - 35.7 %) 32.3 RDW (12.1 - 15.2 %) 14.3 Plt Count (129 - 368 K/MM3) 254 MPV (7.4 - 10.4 fl) 10.4 Neut % (Auto) (43 - 75 %) 76.9 H Lymph % (Auto) (14 - 44 %) 10.6 L [place] % (Auto) (4 - 13 %) 10.8 Eos % (Auto) (0 - 6 %) 1.0 Baso % (Auto) (0 - 2 %) 0.4 Neut # (Auto) (2.0 - 7.6 K/mm3) 8.83 H Lymph # (Auto) (1.0 - 3.8 K/mm3) 1.22 [place] # (Auto) (0.1 - 0.8 K/mm3) 1.24 H Eos # (Auto) (0.0 - 0.2 K/mm3) 0.11 Baso # (Auto) (0.0 - 0.2 K/mm3) 0.05 Immature Gran % (0.0 - 2.0 %) 0.3 Nucleated RBC % (0 - 1.0 %) 0.0 Nucleated RBCs # (Man) (0.0 - 0.1 K/mm3) 0.00 Laboratory Tests 08/07 2127 Urines Urine Color (YELLOW) YELLOW Urine Appearance (CLEAR) CLEAR Urine pH (5.0 - 9.0) 6.0 Ur Specific [place] (1.003 - 1.030) 1.015 Urine Protein (NEGATIVE MG/DL) NEGATIVE Urine Glucose (UA) (NORMAL MG/DL) NORMAL Urine Ketones (NEGATIVE MG/DL) NEGATIVE Urine Blood (NEGATIVE Larry/mm3) NEGATIVE Urine Nitrite (NEGATIVE) NEGATIVE Urine Bilirubin (NEGATIVE MG/DL) NEGATIVE Urine Urobilinogen (NORMAL MG/DL) NORMAL Ur Leukocyte Esterase (NEGATIVE /mm3) NEGATIVE Urine Culture Screen (Culture Chk Criteria) NEG ATIVE, NO CULTURE Laboratory Tests 08/07 1151 Chemistry Magnesium (1.6 - 2.3 MG/DL) 2.3 Radiology data: Recent Impressions: CAT SCAN - CT HEAD/BRAIN W/O CONT 08/07 1115 Report Impression - Status: SIGNED Entered: 08/08/2019 1143 IMPRESSION: No acute intracranial abnormality nor hemorrhage . Impression By: [email or web address] - Ever Finney RADIOLOGY - XR HIP W/PEL UNI 2+V RT 08/07 1125 Report Impression - Status: SIGNED Entered: 08/08/2019 1147 IMPRESSION: No acute osseous abnormality. Impression By: [email or web address] - Kathrin Guevara MD Results: labs reviewed, vital signs stable, EKG personally reviewed, rhythm personally rev'd, x-ray personally reviewed, cur rent med profile rev'd EKG Interpretation: normal sinus rhythm Telemetry Interpretation: SR Diagnosis, Assessment Plan Consultants: cardiovascular surgery, hospitalist Code status: full code Plan discussed with: patient, consultants, patie nt care team, nurse Free Text DxA P Notes Free Text DxA P Notes: IMP: Carotid disease s/p right CEA CAD - stable HTN - controlled. HLP Hypothyroidism PTX - small left apical Fall after CEA, some confusion, resolving, CT n eg, to go for MRI PLAN: Home medicatons Ambulate CXR Electronically Signed by Salome Wilson MD on 0 08/09/19 at 0620 [facility] #:[id number] END OF REPORT 2019-08-08 19:32:00-00:00 [id number] [place] [address] PATIENT NAME: LEYDA GARRETT ADMIT DATE: 08/06/19 ACCOUNT NO: [id number] ROOM NO: Z.SI05 AGE: 84 REPORT TYPE: CONSULTATION REPORT SEX: F ADMITTING PHYSICIAN:Robi Schroeder MD ATTENDING PHYSICIAN:Robi Schroeder MD CONSULTATION DATE: 08/08/2019 CONSULTING PHYSICIAN: Gonzalo Kent MD REFERRING PHYSICIAN: Robi Schroeder MD REASON FOR CONSULTATION: Altered mental status a nd ataxia. HISTORY OF PRESENT ILLNESS: The patient is an 84 -year-old woman, with a past medical history of hypertens ion, hyperlipidemia, coronary artery disease, status post stent placement in 2017. She has been found with carotid stenosis, with her right internal carotid l esion, reaching a stenotic area of 89% to 90%, with the left side being in the order of 50% to 70%. She was referred for carotid endarterectomy. She underwent a right in ternal carotid endarterectomy on 08/05 two days ago. She has been noted in the past 2 postoperative days to have been developing some worsening co nfusion, inability to follow commands consistently. While she has been instructed repeatedly not to get out of it, it appears that on 2 occasions she was found on the floor. This morning, when her nurse attempted to ambulate her, her legs kept giving way underneath her. By description, she may have been slightly ataxic. A CT scan of the brain was done. It did not reveal any acute changes. PAST MEDICAL HISTORY: As above. PAST SURGICAL HISTORY: Noncontributory. CURRENT MEDICATIONS: Please see medication list. ALLERGIES: SHE IS ALLERGIC TO PENICILLIN, HYDROC ODONE, AND BACTRIM. SOCIAL HISTORY: Otherwise noncontributory. FAMILY HISTORY: Noncontributory. PHYSICAL EXAMINATION: VITAL SIGNS: Blood pressure is 174/72, pulse is 85, respirations are 14, and temperature is 97.8. GENERAL APPEARANCE: Elderly female, lying in bed , in no acute distress. HEAD: Atraumatic, normocephalic. NECK: Supple. LUNGS: Clear and resonant to auscultation. HEART: Reveals normal S1, S2 with no murmur, rub , or gallop. PATIENT NAME: LEYDA GARRETT ABDOMEN: Soft. EXTREMITIES: Without cyanosis, clubbing, or carla a. NEUROLOGIC: She is awake and alert. She is orien danielle to self, place, and overall situation. When I asked her how long she has been in the hospital, she is unable to answer. When I give her the choice of a whole week, she says yes. She seems to be a little bit delayed in respondi ng as well as in following commands, but does not need any visual prompting otherwise. Her cranial nerve examination is grossly unremarkable. Her motor e xamination reveals normal strength in extremities. Sensory examina tion does not reveal hemisensory loss. There is no reflex asymmetry. I did not check he r gait. PERTINENT LABS: Her basic me tabolic profile from earlier today reveals a sodium of 135. Her creatinine is 1.2. Her CBC reveals a white count of 11.5. There is a very slight left shift. As already mentione d, her CT scan of the brain without contrast from earlier today did not reve al any acute changes. ASSESSMENT AND RECOMMENDATIONS: In [facility], this 84-year-old woman with a past medical history of hypertens ion, hyperlipidemia, coronary artery disease, status post stenting, presents with significant bilater al internal carotid artery disease. She underwent a right carotid e ndarterectomy 2 days ago, on 08/05. In the postoperative period, she has fluctu ated from being fairly appropriate and interactive to displaying episodes of confusion, inability to follow instructions, had fallen twice because she got o ut of bed unassisted. This morning, she was found unable to ambulat e even with the assistance of a nurse. A CT scan of the brain was obtained, unremarkabl e. On my examination in the evening, she is alert and oriented to pl yovani, self and overall situation. There are no focal findings on examination. She does n ot appear to be overtly encephalopathic, but does display some delay in answering questions, and following commands. I will obtain a urinalysis t o check for urinary tract infection. While I did not ambulate her, the miguel angel cription of a nurse from this morning regarding how she was having significant difficulties ambulating may suggest a little bit of ataxia. While I do not b massiel we are dealing with an acute stroke, I would like to obtain an MRI of t he brain. She is on aspirin, Plavix, and atorvastatin. Thank you for this consultation. Dictated By: Gonzalo Kent MD WT: CON:Z.ALVARO/MARTHA/JHOAN Conf#: [id number]/DID#: [id number] Authenticated by Gonzalo Kent MD On 0 09:42:30 PM at 2142 PATIENT NAME: LEYDA GARRETT 2019-08-08 13:49:00-00:00 HCAWU [facility] ([facility] Hospitalist Progress Note REPORT#:[id number] REPORT STATUS: Signed DATE:08/08/19 TIME: 1349 PATIENT: LEYDA GARRETT UNIT #: [id number] [address]BED: [address] : 36 AGE: 84 SEX: F ATTEND: Hernesto Schroeder MD ADM AUTHOR: Mirella Francis MD * ALL edits or amendments must be made on the Buzz Referrals/[employer] document * Subjective Chief Complaint: 84 y/o WF post R CEA POD 1 , looks comfortable, confused sitting up in the chair, fell last night also th is am Review of Systems Constitutional: Denies: chills, fatigue, generalized weakness. Respiratory: Denies: pleuritic pain. Cardiovascular: Denies: chest pain. Neuro: Denies: focal weakness, gait problem, headache, seizure. Psych: Reports: confusion. All systems rev neg: except as marked Objective General VS/I O: Vital Signs: Date Time Temp Pulse Resp B/P B/P Pulse O2 O2 F low FiO2 Mean Ox Delivery Rate 08/07 1330 66 17 138/63 90 99 08/07 1300 66 20 143/62 89 99 08/07 1230 68 16 140/65 93 99 08/07 1200 71 22 178/74 107 93 08/07 1142 97.7 08/07 1134 68 15 176/72 103 99 08/07 1105 71 17 168/74 106 93 08/07 1018 64 162/67 96 76 / 1013 67 150/67 97 78 / 1000 18 / 0913 64 17 145/64 92 97 / 0837 67 22 132/79 100 99 08/07 0800 63 17 89 / 0715 97.6 08/07 0715 Nasal 2.741144 cannula 08/07 0701 63 17 146/67 96 98 08/07 0700 62 16 98 05/15 0635 65 17 05/15 0631 64 20 125/54 78 97 05/15 0630 64 17 97 05/15 0615 64 16 97 05/15 0601 65 14 122/57 82 97 05/15 0600 65 13 97 05/15 0545 64 15 97 05/15 0531 65 17 124/58 84 97 05/15 0530 64 19 97 05/15 0515 65 20 97 05/15 0501 65 17 110/51 73 97 05/15 0500 64 17 97 05/15 0445 66 22 97 05/15 0431 66 17 104/52 74 96 05/15 0430 66 18 96 05/15 0415 66 24 97 05/15 0401 66 19 110/52 75 97 05/15 0400 97.4 Nasal 2.507396 cannula 05/15 0400 67 19 97 05/15 0345 67 17 96 05/15 0331 67 18 106/49 71 97 05/15 0330 68 23 96 05/15 0315 69 19 97 05/15 0301 68 22 107/49 71 97 05/15 0300 68 19 97 05/15 0245 67 16 97 05/15 0231 68 19 108/50 70 98 05/15 0230 67 18 99 05/15 0215 68 19 98 05/15 0201 66 19 103/51 73 100 05/15 0200 66 17 99 05/15 0145 65 19 100 05/15 0131 64 18 103/50 72 99 05/15 0130 62 20 99 05/15 0115 65 16 100 05/15 0101 63 17 101/47 68 100 05/15 0100 62 18 99 05/15 0045 62 14 100 05/15 0031 61 14 82/47 62 99 05/15 0030 62 15 99 05/15 0015 62 19 99 05/15 0000 97.6 Nasal 2.603599 cannula 05/15 0000 63 21 99 05/14 2345 70 17 98 05/14 2330 95 17 96 05/14 2315 78 18 97 05/14 2307 86 19 173/59 103 99 05/14 2300 75 16 172/80 115 99 05/14 2245 75 20 99 05/14 2230 90 16 99 05/14 2215 96 98 05/14 2200 89 15 160/70 100 100 05/14 2148 91 18 166/70 100 98 05/14 2145 90 17 100 08/06 2130 96 22 97 08/065 91 17 99 08/06 2100 88 97 08/065 82 23 08/06 2029 87 17 99 08/06 2016 80 17 161/71 102 98 08/06 2014 89 25 96 08/06 2009 81 20 99 08/07 1999 Nasal 2.144558 cannula 08/07 1999 97.4 Nasal 2.679703 cannula 08/07 1999 86 15 99 08/06 1945 86 15 08/06 1928 75 20 08/06 1915 76 08/06 1910 77 25 137/91 107 08/06 1900 79 20 08/06 1843 95 Nasal 2.074590 28 cannula 08/06 1830 74 20 154/67 97 08/06 1730 74 153/65 94 08/06 1700 79 155/67 96 08/06 1630 73 22 149/67 96 95 08/06 1605 98.2 08/06 1600 75 13 148/67 96 94 08/06 1530 72 15 152/66 95 08/06 1500 73 15 151/68 98 08/06 1400 74 19 149/64 92 97 24 hour I O ending at 0700: 08/07 0700 08/06 1900 Intake Total 825 140.00 Output Total 210 Balance 825 -70.00 Intake, IV 140.00 Intake, Oral 825 Number 1 Bowel Movements Number Voids 4 Output, 10 Drainage Output, Urine 200 Patient 54.431 kg Weight Patient Weight Weight (lb): 120 Weight (oz): 3.84 Weight (kg): 54.431 Medications: Documentation of Current Medications in the [facility] Record : I attest that the foregoing medication list in [facility] medical record is true, accurate, and complete to the best of my knowled ge. Active Meds + DC'd Last 24 Hrs Famotidine 20 MG DAILY PO Famotidine 20 MG Q12HR PO (DC) Aspirin 81 MG DAILY PO Cholecalciferol 1,000 UNIT DAILY PO (CKD) Clopidogrel Bisulfate 75 MG DAILY PO Duloxetine HCl 20 MG DAILY PO (DC) Hydrochlorothiazide 25 MG DAILY PO Hydroxocobalamin 500 MCG DAILY PO Iron/Minerals/Multivitamins 1 EA DAILY PO Lactobacillus Acidoph/Bulgaricus 1 PKT DAILY PO (CKD) Levothyroxine Sodium 75 MCG DAILY PO Losartan Potassium 100 MG DAILY PO Potassium Chloride 20 MEQ DAILY PO (DC) Atorvastatin Calcium 80 MG BEDTIME PO Fenofibrate 54 MG BEDTIME PO Mupirocin 1 APPLIC BID NASAL [id number] Ethyl Esters 2 GM BID PO Calcium Acetate 667 MG C MEALS PO Meperidine HCl 25 MG Q4H PRN PRN IM (DC) Benzocaine/Menthol 1 EACH Q2H PRN PRN MM (CKD) Pregabalin 50 MG TID PO (DA) Tramadol HCl 100 MG Q6H PRN PRN PO (DC) Acetaminophen 650 MG Q4H PRN PRN PO Bisacodyl 10 MG ASDIR PRN RECTAL Calcium Gluconate 1,000 MG ASDIR PRN IV (DC) Sodium Chloride 100 ML Hydralazine HCl 10 MG Q8H PRN PRN IV Nicardipine HCl 25 MG ASDIR PRN IV (DC) Sodium Chloride 250 ML Ondansetron HCl 4 MG Q8H PRN PRN IV Phenol 5 SPRAY Q2H PRN PRN MM Potassium Chloride 10 MEQ ASDIR PRN PO (DC) Physical Exam General appearance: frail, awake Head/Eyes: atraumatic ENT: moist mucosal membranes Neck: R neck site clean Cardiovascular: normal heart sounds, regular rat e rhythm Respiratory: aerating well, clear to auscultatio n Abdomen: non-tender, normal bowel sounds, no dis tention Extremities: moves all, no clubbing, no cyanosis Neuro/COUNTY ASSESSOR: disoriented, alert, no motor deficits Wound/incision: Location: R neck Results Findings/Data: Laboratory Tests 08/07 08/07 1151 1151 Chemistry Sodium (137 - 145 MMOL/L) 135 L Potassium (3.5 - 5.1 MMOL/L) 4.2 Chloride (98 - 107 MMOL/L) 99 Carbon Dioxide (22 - 30 MMOL/L) 33 H Anion Gap (14 - 24 MMOL/L) 7 L BUN (7 - 17 MG/DL) 27 H Creatinine (0.52 - 1.04 MG/DL) 1.20 H Glomerular Filtr Rate 43 Glucose (74 - 106 MG/DL) 102 Calcium (8.4 - 10.2 MG/DL) 9.8 Phosphorus (2.5 - 4.5 MG/DL) 2.6 Magnesium (1.6 - 2.3 MG/DL) 2.3 TSH (0.465 - 4.68 MIU/L) 3.590 Free T4 (0.78 - 2.19 NG/DL) 2.1 Free T4 Index (1.2 - 4.3) 4.4 H Thyroxine (T4) (5.53 - 11.0 UG/DL) 13.10 H T3 Uptake (23.5 - 40.5 % UP) 33.3 Laboratory Tests 08/07 1230 Hematology WBC (3.8 - 9.8 K/MM3) 11.5 H RBC (3.58 - 4.97 M/MM3) 3.63 Hgb (11.2 - 14.9 G/DL) 11.2 Hct (33.2 - 43.5 %) 34.7 MCV (80.7 - 99.1 fL) 96 MCH (27.0 - 34.1 pg) 30.9 MCHC (32.2 - 35.7 %) 32.3 RDW (12.1 - 15.2 %) 14.3 Plt Count (129 - 368 K/MM3) 254 MPV (7.4 - 10.4 fl) 10.4 Neut % (Auto) (43 - 75 %) 76.9 H Lymph % (Auto) (14 - 44 %) 10.6 L Berg[place] % (Auto) (4 - 13 %) 10.8 Eos % (Auto) (0 - 6 %) 1.0 Baso % (Auto) (0 - 2 %) 0.4 Neut # (Auto) (2.0 - 7.6 K/mm3) 8.83 H Lymph # (Auto) (1.0 - 3.8 K/mm3) 1.22 Berg[place] # (Auto) (0.1 - 0.8 K/mm3) 1.24 H Eos # (Auto) (0.0 - 0.2 K/mm3) 0.11 Baso # (Auto) (0.0 - 0.2 K/mm3) 0.05 Immature Gran % (0.0 - 2.0 %) 0.3 Nucleated RBC % (0 - 1.0 %) 0.0 Nucleated RBCs # (Man) (0.0 - 0.1 K/mm3) 0.00 Radiology data: Recent Impressions: CAT SCAN - CT HEAD/BRAIN W/O CONT 08/07 1115 Report Impression - Status: SIGNED Entered: 08/08/2019 1143 IMPRESSION: No acute intracranial abnormality nor hemorrhage . Impression By: [email or web address] - Evre Finney RADIOLOGY - XR HIP W/PEL UNI 2+V RT 08/07 1125 Report Impression - Status: SIGNED Entered: 08/08/2019 1147 IMPRESSION: No acute osseous abnormality. Impression By: [email or web address] - Kathrin Guevara MD Diagnosis, Assessment Plan Hospital course to date: 84 year old female with atherosclerosis and CAD (2-vessel disease with RCA stents), bilateral carotid d isease (R > L) presented to [facility] on 08-05 for right carotid endarterectomy. ASSESSMENT - Right carotid stenosis status post right carot id endarterectomy. - CAD with stable angina and stends in right carotid with cardiac catherization on 07-19-2019 - HTN - HLD - Hypothyroidism - Sciatica - Diverticulosis - Anemia -Hyponatremia -CKD stage 2 -Delerium due to pain meds , agree w DC Lyrica PLAN 08-07-2019 - Cardiovascular surgery following patient. pt is doing well 08/07 DW daughter Caden awaiting Neuro consult Dw bed side nurse, no fracture of he hip Quality Advanced Care Plan 65 or Older Discussed with: patient Discussion included: code status Electronically Signed by Mirella Francis MD on at 1354 RPT #:[id number] END OF REPORT 2019-08-08 06:38:00-00:00 [facility] ([facility]) Cardiology Progress Note REPORT#:[id number] REPORT STATUS: Signed DATE:08/08/19 TIME: 06 PATIENT: LEYDA GARRETT UNIT #: [id number] [address] : [address] AGE: 84 SEX: F ATTEND: Hernesto Schroeder MD ADM AUTHOR: Abdulaziz Epps MD * ALL edits or amendments must be made on the el [employer]/computer document * Subjective Chief Complaint: Carotid disease Patient reports: No: chest pain, palpitations, shortness of breat h. Objective General VS/I O: 24 hour I O ending at 0700: 05/15 0700 05/14 1900 Intake Total 825 140.00 Output Total 210 Balance 825 -70.00 Intake, IV 140.00 Intake, Oral 825 Number 1 Bowel Movements Number Voids 4 Output, 10 Drainage Output, Urine 200 Patient 54.431 kg Weight Vital Signs: Date Time Temp Pulse Resp B/P B/P Pulse O2 O2 F low FiO2 Mean Ox Delivery Rate 05/15 0615 64 16 97 05/15 0601 65 14 122/57 82 97 05/15 0600 65 13 97 05/15 0545 64 15 97 05/15 0531 65 17 124/58 84 97 05/15 0530 64 19 97 05/15 0515 65 20 97 05/15 0501 65 17 110/51 73 97 05/15 0500 64 17 97 05/15 0445 66 22 97 05/15 0431 66 17 104/52 74 96 05/15 0430 66 18 96 05/15 0415 66 24 97 05/15 0401 66 19 110/52 75 97 05/15 0400 97.4 Nasal 2.357466 cannula 05/15 0400 67 19 97 05/15 0345 67 17 96 05/15 0331 67 18 106/49 71 97 05/15 0330 68 23 96 05/15 0315 69 19 97 05/15 0301 68 22 107/49 71 97 05/15 0300 68 19 97 05/15 0245 67 16 97 05/15 0231 68 19 108/50 70 98 05/15 0230 67 18 99 05/15 0215 68 19 98 05/15 0201 66 19 103/51 73 100 05/15 0200 66 17 99 05/15 0145 65 19 100 05/15 0131 64 18 103/50 72 99 05/15 0130 62 20 99 05/15 0115 65 16 100 05/15 0101 63 17 101/47 68 100 05/15 0100 62 18 99 05/15 0045 62 14 100 05/15 0031 61 14 82/47 62 99 05/15 0030 62 15 99 05/15 0015 62 19 99 05/15 0000 97.6 Nasal 2.456448 cannula 05/15 0000 63 21 99 05/14 2345 70 17 98 05/14 2330 95 17 96 05/14 2315 78 18 97 05/14 2307 86 19 173/59 103 99 05/14 2300 75 16 172/80 115 99 05/14 2245 75 20 99 05/14 2230 90 16 99 05/14 2215 96 98 05/14 2200 89 15 160/70 100 100 05/14 2148 91 18 166/70 100 98 05/14 2145 90 17 100 05/14 2130 96 22 97 05/14 2115 91 17 99 05/14 2100 88 97 05/14 2045 82 23 05/14 2029 87 17 99 05/14 2016 80 17 161/71 102 98 05/14 2014 89 25 96 05/14 2009 81 20 99 05/14 1999 Nasal 2.482882 cannula /14 1999 97.4 Nasal 2.312121 cannula /14 1999 86 15 99 05/14 1945 86 15 05/14 1928 75 20 05/14 1915 76 05/14 1910 77 25 137/91 107 05/14 1900 79 20 05/14 1843 95 Nasal 2.059442 28 cannula /14 1830 74 20 154/67 97 05/14 1730 74 153/65 94 05/14 1700 79 155/67 96 05/14 1630 73 22 149/67 96 95 05/14 1605 98.2 05/14 1600 75 13 148/67 96 94 05/14 1530 72 15 152/66 95 05/14 1500 73 15 151/68 98 05/14 1400 74 19 149/64 92 97 05/14 1300 82 178/77 110 93 05/14 1245 15 05/14 1200 72 19 156/69 99 96 05/14 1141 98.5 05/14 1130 72 23 141/62 89 95 05/14 1105 74 16 95 05/14 1101 138/61 88 05/14 1030 71 16 127/58 83 93 05/14 1000 70 13 128/57 82 94 05/14 0931 69 120/58 84 95 05/14 0900 64 35 94 05/14 0833 95 Nasal 2.088800 28 cannula 05/14 0830 68 14 96 05/14 0800 71 18 95 05/14 0724 72 16 136/61 88 95 05/14 0720 Nasal 2.280886 cannula 05/14 0710 98.0 05/14 0700 76 22 92 Patient Weight Weight (lb): 120 Weight (oz): 3.84 Weight (kg): 54.431 Medications: Active Meds + DC'd Last 24 Hrs Famotidine 20 MG Q12HR PO Aspirin 81 MG DAILY PO Cholecalciferol 1,000 UNIT DAILY PO (CKD) Clopidogrel Bisulfate 75 MG DAILY PO Duloxetine HCl 20 MG DAILY PO Hydrochlorothiazide 25 MG DAILY PO Hydroxocobalamin 500 MCG DAILY PO Iron/Minerals/Multivitamins 1 EA DAILY PO Lactobacillus Acidoph/Bulgaricus 1 PKT DAILY PO (CKD) Levothyroxine Sodium 75 MCG DAILY PO Losartan Potassium 100 MG DAILY PO Potassium Chloride 20 MEQ DAILY PO Vancomycin HCl 1,000 MG Q12H IV (DC) Sodium Chloride 250 ML Atorvastatin Calcium 80 MG BEDTIME PO Famotidine 20 MG Q12HR IV (DC) Fenofibrate 54 MG BEDTIME PO Mupirocin 1 APPLIC BID NASAL Rqtgg-[id number] Ethyl Esters 2 GM BID PO Calcium Acetate 667 MG C MEALS PO Meperidine HCl 25 MG Q4H PRN PRN IM Benzocaine/Menthol 1 EACH Q2H PRN PRN MM (CKD) Pregabalin 50 MG TID PO Tramadol HCl 100 MG Q6H PRN PRN PO Acetaminophen 650 MG Q4H PRN PRN PO Bisacodyl 10 MG ASDIR PRN RECTAL Calcium Gluconate 1,000 MG ASDIR PRN IV Sodium Chloride 100 ML Hydralazine HCl 10 MG Q8H PRN PRN IV Nicardipine HCl 25 MG ASDIR PRN IV Sodium Chloride 250 ML Ondansetron HCl 4 MG Q8H PRN PRN IV Phenol 5 SPRAY Q2H PRN PRN MM Potassium Chloride 10 MEQ ASDIR PRN PO Potassium Chloride/Dextrose/Sod Cl 1,000 ML Q12 H IV (DC) Status post: Right CEA Physical Exam General appearance: alert, awake, oriented Head/Eyes: atraumatic, normocephalic ENT: moist mucosal membranes Neck: no JVD Cardiovascular: CV assessment: regular rate and rhythm Respiratory: clear to auscultation, no distress Abdomen: soft, non-tender Lower extremity: LE assessment: no edema Musculoskeletal: full range of motion Neuro/COUNTY ASSESSOR: alert, oriented X 3, CN II-XII intact Skin: dry, intact Wound/incision: Location: Right neck. Site condition: dressing clean dry Psychiatry: normal affect, normal judgment/insig ht, normal mood Results Radiology data: Recent Impressions: RADIOLOGY - XR CHEST 1V 08/06 0900 Report Impression - Status: SIGNED Entered: 08/07/2019 1100 IMPRESSION: Interval development of small left apical pneumo thorax. Interval development of left basilar opacities, likely representing atelectasis. Findings were personally discussed with Dr. Breanne murillo at 1056 hours on 08/07/2019. Impression By: Praveena - Wendy Davidson MD Diagnosis, Assessment Plan Free Text DxA P Notes Free Text DxA P Notes: IMP: Carotid disease s/p right CEA CAD - stable HTN - controlled. HLP Hypothyroidism PTX - small left apical PLAN: Home medicatons Ambulate CXR at 0543 RPT #:[id number] END OF REPORT 2019-08-07 14:25:00-00:00 [facility] ([facility] Hospitalist Progress Note REPORT#:[id number] REPORT STATUS: Signed DATE:08/07/19 TIME: 1425 PATIENT: LEYDA GARRETT UNIT #: [id number] [address]: [address] : [address] AGE: 84 SEX: F ATTEND: Hernesto Schroeder MD ADM AUTHOR: Mirella Francis MD * ALL edits or amendments must be made on the [employer]/computer document * Subjective Chief Complaint: 84 y/o WF post R CEA POD 1 , looks comfortable, confused sitting up in the chair Review of Systems Constitutional: Denies: chills, fatigue, generalized weakness. Respiratory: Denies: pleuritic pain. Cardiovascular: Denies: chest pain. Psych: Reports: confusion. Objective General VS/I O: Vital Signs: Date Time Temp Pulse Resp B/P B/P Pulse O2 O2 F low FiO2 Mean Ox Delivery Rate 08/06 1141 98.5 08/06 1105 74 16 95 08/06 1101 138/61 88 08/06 1030 71 16 127/58 83 93 08/06 1000 70 13 128/57 82 94 08/06 0931 69 120/58 84 95 08/06 0900 64 35 94 08/06 0833 95 Nasal 2.369160 28 cannula 05/14 0830 68 14 96 05/14 0800 71 18 95 05/14 0724 72 16 136/61 88 95 05/14 0720 Nasal 2.678427 cannula 05/14 0710 98.0 05/14 0700 76 22 92 05/14 0545 71 14 93 05/14 0530 71 15 93 05/14 0500 79 16 94 05/14 0413 87 15 142/63 90 94 05/14 0400 88 17 05/14 0400 98.0 05/14 0345 87 15 05/14 0343 87 15 05/14 0315 84 16 05/14 0313 84 16 136/63 94 05/14 0300 14 94 05/14 0243 81 19 139/62 89 93 05/14 0215 83 13 93 05/14 0213 84 13 137/57 85 93 05/14 0143 83 13 143/61 93 05/14 0130 84 13 93 05/14 0115 84 13 94 05/14 0114 84 12 127/60 86 94 05/14 0100 81 13 129/60 87 93 05/14 0045 95 05/14 0030 83 13 94 05/14 0015 83 13 95 05/14 0000 98.0 05/14 0000 84 13 148/63 96 94 05/13 2353 14 148/70 100 94 05/13 2345 83 14 94 05/13 2330 82 15 92 05/13 2315 82 13 93 05/13 2300 83 12 93 05/13 2245 84 92 05/13 2230 85 91 05/13 2215 85 93 05/13 2200 86 93 05/13 2145 84 93 05/13 2130 84 93 05/13 2115 84 94 05/13 2045 83 96 05/13 2030 84 95 05/2014 78 96 05/1999 58 96 05/13 194 96 Nasal 2.464276 28 cannula 05/13 1930 82 95 05/13 1915 86 97 05/13 1900 97.4 3.665387 05/13 1900 Nasal 3.537549 cannula 05/13 1900 83 13 131/62 89 97 05/13 1704 96 Nasal 3.057886 32 cannula 05/13 1700 77 22 126/61 88 94 05/13 1630 78 12 91 05/13 1600 63 18 91 05/13 1526 97.2 Nasal 3.066408 cannula 05/13 1520 74 20 92 08/05 1500 76 19 130/61 88 92 08/05 1445 62 11 93 24 hour I O ending at 0700: 08/06 0700 08/05 1900 Intake Total 2210.00 525.00 Output Total 3000 2220 Balance -790.00 -1695.00 Intake, IV 1760.00 525.00 Intake, Oral 450 Output, 20 Drainage Output, 100 Estimated Blood Loss Output, Urine 3000 2100 Patient Weight Weight (lb): 120 Weight (oz): 3.84 Weight (kg): 54.540 Medications: Documentation of Current Medications in the [facility] Record : I attest that the foregoing medication list in [facility] medical record is true, accurate, and complete to the best of my knowled ge. Active Meds + DC'd Last 24 Hrs Famotidine 20 MG Q12HR PO Aspirin 81 MG DAILY PO Cholecalciferol 1,000 UNIT DAILY PO (CKD) Clopidogrel Bisulfate 75 MG DAILY PO Duloxetine HCl 20 MG DAILY PO Hydrochlorothiazide 25 MG DAILY PO Hydroxocobalamin 500 MCG DAILY PO Iron/Minerals/Multivitamins 1 EA DAILY PO Lactobacillus Acidoph/Bulgaricus 1 PKT DAILY PO (CKD) Levothyroxine Sodium 75 MCG DAILY PO Losartan Potassium 100 MG DAILY PO Potassium Chloride 20 MEQ DAILY PO Potassium Chloride 100 ML ONCE ONE IV (DC) Vancomycin HCl 1,000 MG Q12H IV (DC) Sodium Chloride 250 ML Atorvastatin Calcium 80 MG BEDTIME PO Famotidine 20 MG Q12HR IV (DC) Fenofibrate 54 MG BEDTIME PO Mupirocin 1 APPLIC BID NASAL [id number] Ethyl Esters 2 GM BID PO Calcium Acetate 667 MG C MEALS PO Meperidine HCl 25 MG Q4H PRN PRN IM Benzocaine/Menthol 1 EACH Q2H PRN PRN MM (CKD) Pregabalin 50 MG TID PO Tramadol HCl 100 MG Q6H PRN PRN PO Acetaminophen 650 MG Q4H PRN PRN PO Bisacodyl 10 MG ASDIR PRN RECTAL Calcium Gluconate 1,000 MG ASDIR PRN IV Sodium Chloride 100 ML Hydralazine HCl 10 MG Q8H PRN PRN IV Nicardipine HCl 25 MG ASDIR PRN IV Sodium Chloride 250 ML Ondansetron HCl 4 MG Q8H PRN PRN IV Phenol 5 SPRAY Q2H PRN PRN MM Potassium Chloride 10 MEQ ASDIR PRN PO Potassium Chloride/Dextrose/Sod Cl 1,000 ML Q12H IV (DC) Physical Exam General appearance: confused, alert, awake Neck: R neck site clean Cardiovascular: normal heart sounds, regular rat e rhythm Respiratory: aerating well, clear to auscultatio n Abdomen: non-tender, normal bowel sounds, no dis tention Extremities: moves all, no clubbing, no cyanosis Neuro/COUNTY ASSESSOR: alert, no motor deficits Results Findings/Data: Laboratory Tests 08/06 0600 Chemistry Sodium (137 - 145 MMOL/L) 134 L Potassium (3.5 - 5.1 MMOL/L) 4.0 Chloride (98 - 107 MMOL/L) 102 Carbon Dioxide (22 - 30 MMOL/L) 26 Anion Gap (14 - 24 MMOL/L) 10 L BUN (7 - 17 MG/DL) 10 Creatinine (0.52 - 1.04 MG/DL) 0.60 Glomerular Filtr Rate > 60 Glucose (74 - 106 MG/DL) 160 H Calcium (8.4 - 10.2 MG/DL) 9.5 Magnesium (1.6 - 2.3 MG/DL) 1.8 Laboratory Tests 08/06 0600 Hematology WBC (3.8 - 9.8 K/MM3) 16.5 H RBC (3.58 - 4.97 M/MM3) 3.71 Hgb (11.2 - 14.9 G/DL) 11.5 Hct (33.2 - 43.5 %) 35.0 MCV (80.7 - 99.1 fL) 94 MCH (27.0 - 34.1 pg) 31.0 MCHC (32.2 - 35.7 %) 32.9 RDW (12.1 - 15.2 %) 13.5 Plt Count (129 - 368 K/MM3) 239 MPV (7.4 - 10.4 fl) 10.3 Neut % (Auto) (43 - 75 %) 88.5 H Lymph % (Auto) (14 - 44 %) 5.5 L [place] % (Auto) (4 - 13 %) 5.5 Eos % (Auto) (0 - 6 %) 0.0 Baso % (Auto) (0 - 2 %) 0.1 Neut # (Auto) (2.0 - 7.6 K/mm3) 14.60 H Lymph # (Auto) (1.0 - 3.8 K/mm3) 0.90 L [place] # (Auto) (0.1 - 0.8 K/mm3) 0.90 H Eos # (Auto) (0.0 - 0.2 K/mm3) 0.00 Baso # (Auto) (0.0 - 0.2 K/mm3) 0.02 Immature Gran % (0.0 - 2.0 %) 0.4 Nucleated RBC % (0 - 1.0 %) 0.0 Nucleated RBCs # (Man) (0.0 - 0.1 K/mm3) 0.00 Diagnosis, Assessment Plan Hospital course to date: 84 year old female with atherosclerosis and CAD (2-vessel disease with RCA stents), bilateral carotid d isease (R > L) presented to [facility] on 08-05 for right carotid endarterectomy. ASSESSMENT - Right carotid stenosis status post right carot id endarterectomy. - CAD with stable angina and stends in right carotid with cardiac catherization on 07-19-2019 - HTN - HLD - Hypothyroidism - Sciatica - Diverticulosis - Anemia PLAN 08-07-2019 - Cardiovascular surgery following patient. pt is doing well Electronically Signed by Mirella Francis MD on at 1430 RPT #:[id number] END OF REPORT 2019-08-07 13:54:00-00:00 [facility] ([facility]) Cardiology Progress Note REPORT#:[id number] REPORT STATUS: Signed DATE:08/07/19 TIME: 1354 PATIENT: LEYDA GARRETT UNIT #: [id number] ROOM/BED: SI01-A : 36 AGE: 84 SEX: F ATTEND: Hernesto Schroeder MD ADM AUTHOR: Abdulaziz Epps MD * ALL edits or amendments must be made on the [employer]/computer document * Subjective Chief Complaint: Carotid disease Patient reports: No: chest pain, palpitations, shortness of breat h. Objective General VS/I O: 24 hour I O ending at 0700: 08/06 0700 08/05 1900 Intake Total 2210.00 525.00 Output Total 3000 2220 Balance -790.00 -1695.00 Intake, IV 1760.00 525.00 Intake, Oral 450 Output, 20 Drainage Output, 100 Estimated Blood Loss Output, Urine 3000 2100 Vital Signs: Date Time Temp Pulse Resp B/P B/P Pulse O2 O2 F low FiO2 Mean Ox Delivery Rate 08/06 1141 98.5 08/06 1105 74 16 95 05/ 1101 138/61 88 05/14 1030 71 16 127/58 83 93 05/14 1000 70 13 128/57 82 94 05/14 0931 69 120/58 84 95 05/14 0900 64 35 94 05/14 0833 95 Nasal 2.024829 28 cannula 08/06 0830 68 14 96 05/ 0800 71 18 95 05/14 0724 72 16 136/61 88 95 05/14 0720 Nasal 2.732529 cannula 08/06 0710 98.0 / 0700 76 22 92 05/14 0545 71 14 93 05/14 0530 71 15 93 05/14 0500 79 16 94 05/14 0413 87 15 142/63 90 94 05/14 0400 88 17 05/14 0400 98.0 /14 0345 87 15 05/14 0343 87 15 05/14 0315 84 16 05/14 0313 84 16 136/63 94 05/14 0300 14 94 05/14 0243 81 19 139/62 89 93 05/14 0215 83 13 93 05/14 0213 84 13 137/57 85 93 05/14 0143 83 13 143/61 93 05/14 0130 84 13 93 05/14 0115 84 13 94 05/14 0114 84 12 127/60 86 94 05/14 0100 81 13 129/60 87 93 05/14 0045 95 05/14 0030 83 13 94 05/14 0015 83 13 95 05/14 0000 98.0 05/14 0000 84 13 148/63 96 94 05/13 2353 14 148/70 100 94 05/ 2345 83 14 94 05/ 2330 82 15 92 05/ 2315 82 13 93 05/13 2300 83 12 93 05/ 2245 84 92 05/ 2230 85 91 05/ 2215 85 93 05/ 2200 86 93 05/13 2145 84 93 05/13 2130 84 93 08/05 2114 84 94 08/05 2044 83 96 08/05 2029 84 95 08/05 2014 78 96 08/06 1999 58 96 08/05 1945 96 Nasal 2.158327 28 cannula 08/05 1930 82 95 08/05 1915 86 97 08/05 1900 97.4 3.996251 08/05 1900 Nasal 3.933566 cannula 08/05 1900 83 13 131/62 89 97 08/05 1704 96 Nasal 3.901867 32 cannula 08/05 1700 77 22 126/61 88 94 08/05 1630 78 12 91 08/05 1600 63 18 91 08/05 1526 97.2 Nasal 3.653492 cannula 08/05 1520 74 20 92 08/05 1500 76 19 130/61 88 92 08/05 1445 62 11 93 08/05 1415 59 13 91 Patient Weight Weight (lb): 120 Weight (oz): 3.84 Weight (kg): 54.540 Status post: Right CEA Physical Exam General appearance: alert, awake, oriented Head/Eyes: atraumatic, normocephalic ENT: moist mucosal membranes Neck: no JVD Cardiovascular: CV assessment: regular rate and rhythm Respiratory: clear to auscultation, no distress Abdomen: soft, non-tender Lower extremity: LE assessment: no edema Musculoskeletal: full range of motion Neuro/COUNTY ASSESSOR: alert, oriented X 3, CN II-XII intact Skin: dry, intact Wound/incision: Location: Right neck. Site condition: dressing clean dry Psychiatry: normal affect, normal judgment/insig ht, normal mood Results Findings/Data: Laboratory Tests 08/06 599 Chemistry Sodium (137 - 145 MMOL/L) 134 L Potassium (3.5 - 5.1 MMOL/L) 4.0 Chloride (98 - 107 MMOL/L) 102 Carbon Dioxide (22 - 30 MMOL/L) 26 Anion Gap (14 - 24 MMOL/L) 10 L BUN (7 - 17 MG/DL) 10 Creatinine (0.52 - 1.04 MG/DL) 0.60 Glomerular Filtr Rate > 60 Glucose (74 - 106 MG/DL) 160 H Calcium (8.4 - 10.2 MG/DL) 9.5 Magnesium (1.6 - 2.3 MG/DL) 1.8 Laboratory Tests 05/14 0600 Hematology WBC (3.8 - 9.8 K/MM3) 16.5 H RBC (3.58 - 4.97 M/MM3) 3.71 Hgb (11.2 - 14.9 G/DL) 11.5 Hct (33.2 - 43.5 %) 35.0 MCV (80.7 - 99.1 fL) 94 MCH (27.0 - 34.1 pg) 31.0 MCHC (32.2 - 35.7 %) 32.9 RDW (12.1 - 15.2 %) 13.5 Plt Count (129 - 368 K/MM3) 239 MPV (7.4 - 10.4 fl) 10.3 Neut % (Auto) (43 - 75 %) 88.5 H Lymph % (Auto) (14 - 44 %) 5.5 L [place] % (Auto) (4 - 13 %) 5.5 Eos % (Auto) (0 - 6 %) 0.0 Baso % (Auto) (0 - 2 %) 0.1 Neut # (Auto) (2.0 - 7.6 K/mm3) 14.60 H Lymph # (Auto) (1.0 - 3.8 K/mm3) 0.90 L [place] # (Auto) (0.1 - 0.8 K/mm3) 0.90 H Eos # (Auto) (0.0 - 0.2 K/mm3) 0.00 Baso # (Auto) (0.0 - 0.2 K/mm3) 0.02 Immature Gran % (0.0 - 2.0 %) 0.4 Nucleated RBC % (0 - 1.0 %) 0.0 Nucleated RBCs # (Man) (0.0 - 0.1 K/mm3) 0.00 Laboratory Tests 08/06 0600 Chemistry Magnesium (1.6 - 2.3 MG/DL) 1.8 Radiology data: Recent Impressions: RADIOLOGY - XR CHEST 1V 08/06 0900 Report Impression - Status: SIGNED Entered: 08/07/2019 1100 IMPRESSION: Interval development of small left apical pneumo thorax. Interval development of left basilar opacities, likely representing atelectasis. Findings were personally discussed with Dr. Breanne murillo at 1056 hours on 08/07/2019. Impression By: Praveena - Wendy Davidson MD Diagnosis, Assessment Plan Free Text DxA P Notes Free Text DxA P Notes: IMP: Carotid disease s/p right CEA CAD - stable HTN - controlled. HLP Hypothyroidism PTX - small left apical PLAN: Home medicatons Ambulate at 1616 RPT #:[id number] END OF REPORT 2019-08-07 04:27:00-00:00 [id number] [address] PATIENT NAME: LEYDA GARRETT ADMIT DATE: 08/06/19 ACCOUNT NO: [id number] ROOM NO: [facility] AGE: 84 REPORT TYPE: ELECTROCARDIOGRAM SEX: F ADMITTING PHYSICIAN:Robi Schroeedr MD ATTENDING PHYSICIAN:Robi Schroeder MD Order: [id number] Test Reason : CAD Test Date/Time Stamp: SunAug 07 2019 04:27:20 Blood Pressure : / mmHG Vent. Rate : 087 BPM Atrial Rate : 087 BPM P-R Int : 168 ms QRS Dur : 088 ms QT Int : 356 ms P-R-T Axes : 062 013 045 degree s QTc Int : 428 ms Normal sinus rhythm Normal ECG When compared with ECG of 06-AUG-2019 13:53, Nonspecific T wave abnormality no longer evident in Lateral leads Confirmed by SALOME WILSON ([id number]) on 08/07/2019 5:29:14 PM Referred By: Self Referred Confirmed by:SALOME JACKSON at [id number] PATIENT NAME: LEYDA GARRETT 2019-08-06 19:00:00-00:00 [facility] ([facility] Cardiology Progress Note REPORT#:[id number] REPORT STATUS: Signed DATE:08/06/19 TIME: 1899 PATIENT: LEYDA GARRETT UNIT #: [id number] [address] AGE: 84 SEX: F ATTEND: Hernesto Schroeder MD ADM AUTHOR: Abdulaziz Epps MD * ALL edits or amendments must be made on the [employer]/computer document * Subjective Chief Complaint: Carotid disease Patient reports: No: chest pain, palpitations, shortness of breat h. Objective General VS/I O: Vital Signs: Date Time Temp Pulse Resp B/P B/P Pulse O2 O2 F low FiO2 Mean Ox Delivery Rate 08/05 1704 96 Nasal 3.562272 32 cannula 08/05 1700 77 22 126/61 88 94 08/05 1630 78 12 91 08/05 1600 63 18 91 08/05 1526 97.2 Nasal 3.004266 cannula 08/05 1520 74 20 92 08/05 1500 76 19 130/61 88 92 08/05 1445 62 11 93 08/05 1415 59 13 91 08/05 1345 59 13 93 08/05 1338 Simple 8.265929 mask 08/05 1320 97.4 42 16 125/59 81 93 Simple 6.00 0000 mask 08/05 1315 43 13 97 08/05 1300 43 11 125/59 85 92 08/05 1240 95 Simple [id number] 44 mask 08/05 1028 98.0 64 18 160/90 98 Room air Patient Weight Weight (lb): 120 Weight (oz): 3.84 Weight (kg): 54.540 Medications: Active Meds + DC'd Last 24 Hrs Aspirin 81 MG DAILY PO Cholecalciferol 1,000 UNIT DAILY PO (CKD) Clopidogrel Bisulfate 75 MG DAILY PO Duloxetine HCl 20 MG DAILY PO Hydrochlorothiazide 25 MG DAILY PO Hydroxocobalamin 500 MCG DAILY PO Iron/Minerals/Multivitamins 1 EA DAILY PO Lactobacillus Acidoph/Bulgaricus 1 PKT DAILY PO (CKD) Levothyroxine Sodium 75 MCG DAILY PO Losartan Potassium 100 MG DAILY PO Potassium Chloride 20 MEQ DAILY PO Vancomycin HCl 1,000 MG Q12H IV Sodium Chloride 250 ML Atorvastatin Calcium 80 MG BEDTIME PO Famotidine 20 MG Q12HR IV Fenofibrate 54 MG BEDTIME PO Mupirocin 1 APPLIC BID NASAL Rltgm-4-Lctj Ethyl Esters 2 GM BID PO Calcium Acetate 667 MG C MEALS PO Meperidine HCl 25 MG Q4H PRN PRN IM Benzocaine/Menthol 1 EACH Q2H PRN PRN MM (CKD) Pregabalin 50 MG TID PO Tramadol HCl 100 MG Q6H PRN PRN PO Acetaminophen 650 MG Q4H PRN PRN PO Bisacodyl 10 MG ASDIR PRN RECTAL Calcium Gluconate 1,000 MG ASDIR PRN IV Sodium Chloride 100 ML Hydralazine HCl 10 MG Q8H PRN PRN IV Nicardipine HCl 25 MG ASDIR PRN IV Sodium Chloride 250 ML Ondansetron HCl 4 MG Q8H PRN PRN IV Phenol 5 SPRAY Q2H PRN PRN MM Potassium Chloride 10 MEQ ASDIR PRN PO Potassium Chloride/Dextrose/Sod Cl 1,000 ML Q12H IV Naloxone HCl 0 .STK-MED ONE .ROUTE (DC) Labetalol HCl 0 .STK-MED ONE .ROUTE (DC) Glycopyrrolate 0 .STK-MED ONE .ROUTE (DC) Neostigmine [place] 0 .STK-MED ONE .ROUTE (DC) Dexamethasone Sodium Phosphate 0 .STK-MED ONE .R OUTE (DC) Ondansetron HCl 0 .STK-MED ONE .ROUTE (DC) Protamine Sulfate 0 .STK-MED ONE .ROUTE (DC) Fentanyl Citrate 0 .STK-MED ONE .ROUTE (DC) Glycopyrrolate 0 .STK-MED ONE .ROUTE (DC) Heparin Sodium (Porcine) 0 .STK-MED ONE .ROUTE ( DC) Gentamicin Sulfate 0 .STK-MED ONE IV (DC) Heparin Sodium/Sodium Chloride 500 ML .STK-MED O NE IV (DC) Nicardipine HCl 250 ML .STK-MED ONE IV (DC) Phenylephrine HCl 0 .STK-MED ONE IV (DC) Calcium Chloride 0 .STK-MED ONE .ROUTE (DC) Succinylcholine Chloride 0 .STK-MED ONE .ROUTE ( DC) Etomidate 0 .STK-MED ONE .ROUTE (DC) Lidocaine HCl 0 .STK-MED ONE .ROUTE (DC) Rocuronium [place] 0 .STK-MED ONE .ROUTE (DC) Fentanyl Citrate 0 .STK-MED ONE .ROUTE (DC) Vancomycin HCl 0 .STK-MED ONE IV (DC) Lidocaine HCl 0 .STK-MED ONE I-DERMAL (DC) Status post: Right CEA Physical Exam General appearance: alert, awake, oriented Head/Eyes: atraumatic, normocephalic ENT: moist mucosal membranes Neck: no JVD Cardiovascular: CV assessment: regular rate and rhythm Respiratory: clear to auscultation, no distress Abdomen: soft, non-tender Lower extremity: LE assessment: no edema Musculoskeletal: full range of motion Neuro/COUNTY ASSESSOR: alert, oriented X 3, CN II-XII intact Skin: dry, intact Wound/incision: Location: Right neck. Site condition: dressing clean dry Psychiatry: normal affect, normal judgment/insig ht, normal mood Results Findings/Data: Laboratory Tests 08/05 1251 Blood Gas Puncture Site AL ABG pH (7.35 - 7.45 mmHg) 7.33 L ABG pCO2 (35.0 - 45.0 mmHg) 46.0 H ABG pO2 (80.0 - 100.0 mmol/L) 98.8 ABG HCO3 (20.0 - 26.0 mmol/L) 23.6 ABG O2 Saturation (95.0 - 100.0 %) 97.0 ABG Base Excess (-3.0 - 3.0 mmol/L) -2.6 Chucho Test (CHECK) NA Temperature (37 C) 37.0 O2 Delivery Device SMASK FiO2 (%) 50 Laboratory Tests 08/05 1249 Chemistry Sodium (137 - 145 MMOL/L) 137 Potassium (3.5 - 5.1 MMOL/L) 3.6 Chloride (98 - 107 MMOL/L) 109 H Carbon Dioxide (22 - 30 MMOL/L) 27 BUN (7 - 17 MG/DL) 15 Creatinine (0.52 - 1.04 MG/DL) 0.80 Glomerular Filtr Rate > 60 Glucose (74 - 106 MG/DL) 125 H Calcium (8.4 - 10.2 MG/DL) 10.0 Magnesium (1.6 - 2.3 MG/DL) 1.8 Laboratory Tests 08/05 1249 Hematology WBC (3.8 - 9.8 K/MM3) 6.2 RBC (3.58 - 4.97 M/MM3) 3.09 L Hgb (11.2 - 14.9 G/DL) 9.6 L Hct (33.2 - 43.5 %) 29.6 L MCV (80.7 - 99.1 fL) 96 MCH (27.0 - 34.1 pg) 31.1 MCHC (32.2 - 35.7 %) 32.4 RDW (12.1 - 15.2 %) 13.7 Plt Count (129 - 368 K/MM3) 203 MPV (7.4 - 10.4 fl) 10.7 H Neut % (Auto) (43 - 75 %) 58.9 Lymph % (Auto) (14 - 44 %) 27.3 [place] % (Auto) (4 - 13 %) 6.9 Eos % (Auto) (0 - 6 %) 5.7 Baso % (Auto) (0 - 2 %) 0.6 Neut # (Auto) (2.0 - 7.6 K/mm3) 3.64 Lymph # (Auto) (1.0 - 3.8 K/mm3) 1.69 [place] # (Auto) (0.1 - 0.8 K/mm3) 0.43 Eos # (Auto) (0.0 - 0.2 K/mm3) 0.35 H Baso # (Auto) (0.0 - 0.2 K/mm3) 0.04 Immature Gran % (0.0 - 2.0 %) 0.6 Nucleated RBC % (0 - 1.0 %) 0.0 Nucleated RBCs # (Man) (0.0 - 0.1 K/mm3) 0.00 Laboratory Tests 08/05 1249 Chemistry Magnesium (1.6 - 2.3 MG/DL) 1.8 Radiology data: Recent Impressions: RADIOLOGY - XR CHEST 1V 08/05 1240 Report Impression - Status: SIGNED Entered: 08/06/2019 1308 IMPRESSION: Mild pulmonary vascular prominence which may ref lect true vascular congestion or vascular crowding due to poor insp iratory effort Impression By: [email or web address] - OmariLaith nelson MD Diagnosis, Assessment Plan Free Text DxA P Notes Free Text DxA P Notes: IMP: Carotid disease s/p right CEA CAD - stable HTN - controlled. HLP Hypothyroidism PLAN: Home medicatons Ambulate at 1616 RPT #:[id number] END OF REPORT 2019-08-06 15:26:00-00:00 [id number] [address] PATIENT NAME: LEYDA GARRETT ADMIT DATE: 08/06/19 ACCOUNT NO: [id number] ROOM NO: Z.SI01 AGE: 84 REPORT TYPE: CONSULTATION REPORT SEX: F ADMITTING PHYSICIAN:Robi Schroeder MD ATTENDING PHYSICIAN:Robi Schroeder MD CONSULTATION DATE: CONSULTING PHYSICIAN: Mirella Francis MD REASON FOR CONSULTATION: Medical consult for a p atient with right carotid endarterectomy. HISTORY OF PRESENT ILLNESS: This is an 84-year-o ld patient with known history of atherosclerotic cardiovascular disease with c oronary artery disease. The patient has previous stents. She had lef t heart catheterization with selective bilateral carotid angiograms 07/19/2019. She was found to have 2-vessel coronary artery disease with patent RCA stents, bilateral carotid disease, more severe on the right. The patient was supposed to come in for right carotid endarterectomy today. She is here post-surgery. She is already extubated in ICU, currently on Cardizem drip. PAST MEDICAL HISTORY: Includes history o f coronary artery disease. The patient is being followed by Dr. Wenceslao hobson very closely. She had 3 drug-eluting stents in the right coronary artery 2016. She had a 40% mid LAD plaquing. Because of her angina being worse, she had a cardiac catheterization. The results are noted as above. She also had carotid Dopplers in May of this year, shows right carotid 80% to 99% and left 51% to 69%. She had carotid angiogram as well. Results are noted as above. 1. Iupl-rh-qgansdnj aortic i nsufficiency, mitral insufficiency seen on the echo in September 2018 with moderate pulmonary hypertensio n, pressures of 40 to 50. 2. Hypertension. 3. Hyperlipidemia, hypothyroidism, sciatica, div erticulosis, pudendal neuralgia. PAST SURGICAL HISTORY: Tonsillectomy, knee arthr oscopy, thyroid surgery and stents in the right carotid in 2016. ALLERGIES: PENICILLIN, BACTRIM AND HYDROCODONE W ITH BEHAVIORAL CHANGES. MEDICATIONS: She takes duloxetine, valacyclovir p.r.n., Plavix 75 daily, vitamins, atorvastatin and fenofibrate, losartan , hydrochlorothiazide, pregabalin t.i.d., fish oil, Lutein 40 daily, as pirin 81 daily. FAMILY HISTORY: Negative for premature heart dis ease. SOCIAL HISTORY: The patient does not smo ke, drink. She lives in a single story apartment, is independent with ADLs, has no DME or home health care at this PATIENT NAME: LEYDA GARRETT time, the patient is still driving, has no probl em with attending physician appointed by herself. REVIEW OF SYSTEMS: Currently , the patient is postop, sedation is slowly wearing off, but there are no focal deficits. No fevers or chills. Blood pressure is 150s/60s. The patient denies any pain in the rig ht side of the neck. PHYSICAL EXAMINATION: GENERAL: Elderly female, looks frail. VITAL SIGNS: Temperature 97.4, pulse rate 42, re spiratory rate 16, blood pressure 125/59, 93% saturation. HEENT: Pupils are round and reactive. Oropharynx pink. NECK: Supple. CHEST: No crackles, no wheezing. CARDIOVASCULAR: Currently not bradycardic. Regul ar rate and rhythm. Has a systolic murmur. ABDOMEN: Soft, nontender. No guarding. EXTREMITIES: No cyanosis, no clubbing, minimal e olena in the legs. CENTRAL NERVOUS SYSTEM: The patient seems curren tly sedated, but moves all extremities. Neck area, incision site seems clean. LABORATORY STUDIES: BMP shows a sodium 1 37, glucose 125, calcium 10, magnesium 1.8. CBC; WBC 6, hemoglobin 9, and platelet 203. Chest x-ray, mild pulmonary vascular prominence. ABG 7.33, pCO2 of 46, pO2 o f 98. Rapid coronavirus testing was negative. HIV is negative. EKG shows normal sinus rhythm, normal ECG that was done on 07/29/2019. ASSESSMENT: 1. Right carotid stenosis with status post carot id endarterectomy. 2. Coronary artery disease with currently stable angina with stents in the right carotid, recent cardiac catheterization, 0 07/19/2019. 3. Hypertension. 4. Hyperlipidemia. 5. Hypothyroidism 6. Sciatica. 7. Diverticulosis. 8. Anemia. PLAN: The patient seems to be doing well and wea n off Cardene when able. DISCHARGE PLAN: Per Dr. Schroeder. Thank you, Dr. Schroeder for allowing us to partic ipate in the care of this patient. Dictated By: Mirella Francis MD WT: CON:Z.ALVARO/FELICITY/NTS Conf#: [id number]/DID#: [id number] PATIENT NAME: LEYDA GARRETT Authenticated by Mirella Francis MD On 08/07/2019 02:45:49 AM Electronically Signed by Mirella Francis MD on at 0246 PATIENT NAME: LEYDA GARRETT 2019-08-06 13:53:00-00:00 [id number] [place] [address] PATIENT NAME: LEYDA GARRETT ADMIT DATE: 08/06/19 ACCOUNT NO: [id number] ROOM NO: Z.SI01 AGE: 84 REPORT TYPE: ELECTROCARDIOGRAM SEX: F ADMITTING PHYSICIAN:Robi Schroeder MD ATTENDING PHYSICIAN:Robi Schroeder MD Order: [id number] Test Reason : CAD Test Date/Time Stamp: SunAug 06 2019 13:53:08 Blood Pressure : / mmHG Vent. Rate : 059 BPM Atrial Rate : 059 BPM P-R Int : 170 ms QRS Dur : 098 ms QT Int : 466 ms P-R-T Axes : 047 009 057 degree s QTc Int : 461 ms Sinus bradycardia Nonspecific T wave abnormality Abnormal ECG When compared with ECG of 29-JUL-2019 12:22, Nonspecific T wave abnormality, worse in Anterol ateral leads Confirmed by SALOME WILSON ([id number]) on 08/06/2019 3:47:42 PM Referred By: Self Referred Confirmed by:SALOME JACKSON at 1548 PATIENT NAME: LEYDA GARRETT 2019-08-06 12:29:00-00:00 [facility] ([facility] Brief Op Note REPORT#:[id number] REPORT STATUS: Signed DATE:08/06/19 TIME: 1229 PATIENT: LEYDA GARRETT UNIT #: [id number] ROOM/BED: : 36 AGE: 84 SEX: F ATTEND: Radha Schroeder MD ADM AUTHOR: Robi Schroeder MD * ALL edits or amendments must be made on the Buzz Referrals/computer document * Op/Inv Proc Note - Brief ORM Surgeries: Surgery Date and Time: 08/06/2019 0930 Primary Procedure: RIGHT CAROTID ENDARTERECTOMY WITH Pre-procedure diagnosis: Right internal carotid artery stenosis Post-procedure diagnosis: same as pre procedure dx Procedures performed: Right carotid endarterectomy with hemashield pat ch arterioplasty Insertion of left subclavian central line using sonosite US guidance Primary Surgeon: Robi schroeder Medical Liaison(s): Ria Rodriguez PA-C Anesthesiologist: Dr. Manuel Brown Anesthesia: general anesthesia Findings: See detailed op report Complications: none Estimated blood loss in ml's: 50cc Specimens removed/altered: right carotid plaque Drain(s): Herman Catheter Placed, SANDRA drain Disposition: ICU, stable at 1231 [facility] #:[id number] END OF REPORT 2019-08-06 12:26:00-00:00 [id number] [place] [address] PATIENT NAME: LEYDA GARRETT ADMIT DATE: 08/06/19 ACCOUNT NO: [id number] ROOM NO: [facility] AGE: 84 REPORT TYPE: OPERATIVE REPORT SEX: F ADMITTING PHYSICIAN:Robi Schroeder MD ATTENDING PHYSICIAN:Robi Schroeder MD OPERATION DATE: CARDIAC SURGERY SERVICE PREOPERATIVE DIAGNOSIS: Internal carotid artery stenosis. POSTOPERATIVE DIAGNOSIS: Internal carotid artery stenosis. PROCEDURES: Left CVP insertion, ultrasound-guide d access with SonoSite, right subclavian vein and left subclavian vein, right carotid endarterectomy, Hemashield patch arterioplasty. SURGEON: Robi Schroeder MD PROOF PRESS OPERATOR: Ria Anton PA-C ANESTHESIA: General. COMPLICATIONS: None. DISPOSITION: The patient to the surgical ICU in stable condition. DESCRIPTION OF PROCEDURE: On 08/06/2019, patient was brought to the operating room, placed on the operating table in supine po sition, prepped and draped in usual fashion. Following introduction of satisfa ctory general anesthesia, placement of appropriate mon itoring lines, Herman catheter, hips, shoulders, and elbows padded in usual fashion. Left sub clavian CVP was placed using Seldinger percutaneous guidewire techn ique, ultrasound-guided access with SonoSite, right and left subclavian vein. The patient had neck e xtended, turned to left 45 degree angle, prepped and draped in usual fashio n. Incision made along the anterior border of the sternocleidomastoid muscl e. Carotid sheath and vessels placed around the carotid arterial branches. The patient was heparinized, clamps placed. The arteriotomy of the common car otids were extremely tight greater than 75% stenosis with multiple significant plaques extending into the lumen of the vessel as well as deep ulcerations, was markedly abnormal with severe plaque with high-grade stenosis. We irrig ated with heparin saline solution. We extended the arteriotomy beyond thi s plaque into the more normal-appearing artery. A shunt was placed. Th e endarterectomy performed, plaque feathered out nicely in the inter nal carotid artery. We irrigated again with heparin saline solution . A Hemashield patch arterioplasty closure with 5-0 Prolene suture was done. The wound was irrigated with antibiotic saline solution. Protamine given, hemostasis achieved a fter the shunt removed and PATIENT NAME: LEYDA GARRETT clamps removed. Good pulse by palpation and Dopp ler throughout the incision. Edmar-Solo drain was placed. Wounds were irri gated with antibiotic saline solution, closed in layers in usual fashion. Pro tamine was given. Dressing applied at the end of procedure with the patient was then awakened from anesthesia, assessed neurologically before going to surgical ICU in stable condition. Dictated By: Robi Schroeder MD WT: OP:CRISTINA/JUSTINE/JHOAN Conf#: [id number]/DID#: [id number] cc: Salome Wilson MD Authenticated by Robi Schroeder MD On 020 12:44:45 PM at 1245 PATIENT NAME: LEYDA GARRETT 2019-07-29 12:22:00-00:00 [id number] [place] [id number] PATIENT NAME: LEYDA GARRETT ADMIT DATE: ACCOUNT NO: [id number] ROOM NO: AGE: 84 REPORT TYPE: ELECTROCARDIOGRAM SEX: F ADMITTING PHYSICIAN:Robi Schroeder MD ATTENDING PHYSICIAN:Robi Schroeder MD Order: [id number] Test Reason : PRE-OP Test Date/Time Stamp: SunJul 29 2019 12:22:01 Blood Pressure : / mmHG Vent. Rate : 064 BPM Atrial Rate : 064 BPM P-R Int : 160 ms QRS Dur : 092 ms QT Int : 402 ms P-R-T Axes : 015 008 047 degre es QTc Int : 414 ms Normal sinus rhythm Normal ECG When compared with ECG of 19-JUL-2019 05:50, No significant change was found Confirmed by SALOME WILSON ([id number]) on 07/29/2019 2 :27:26 PM Referred By: Self Referred Confirmed by:SALOME JACKSON at 1427 PATIENT NAME: LEYDA GARRETT 2019-07-19 13:05:00-00:00 [id number] [place] [id number] PATIENT NAME: LEYDA GARRETT ADMIT DATE: 07/19/19 ACCOUNT NO: [id number] ROOM NO: AGE: 84 REPORT TYPE: CONSULTATION REPORT SEX: F ADMITTING PHYSICIAN: ATTENDING PHYSICIAN:Salome Wilson MD CONSULTATION DATE: 07/19/2019 CONSULTING PHYSICIAN: Robi Schroeder MD CARDIAC SURGERY SERVICE DIAGNOSES: High-grade right internal carotid art larry stenosis, coronary artery disease, hypertension, and hyperlipidemia. BRIEF HISTORY: This is an 84-year-old pa tient of Dr. Wilson, followed her for many years. She is status post stent placement i n 2017. She denies having a previous RI. She has had progressive ang johny and dyspnea with exertion. She has also been followed for carot id stenosis, right carotid lesion now is 89-90% and on the left about 50-70%, which has increased si nce previous carotid duplex imaging. She has some dizzy spells also. So she has been symptomatic despite maximal medical management. Cardiac cath today s hows moderate coronary artery disease, will be treated medically. Her stents w ere patent on the right coronary artery. Ejection fraction is essentiall y normal, about 50% to 55% on echocardiogram. In Dr. Wilson's office, she has lahu-kn-tukjvvng aortic insufficiency, mitral valve insufficiency, and tricuspid insufficiency. She had carotid imaging in his office, which also showed greater than 89% stenosis of the right internal carotid artery and 50 % to 70% stenosis in the left internal carotid artery. On angiogram today, her carotid stenosis is about 85% on the right and on the left she is about 55% left inte rnal carotid artery. She has previous history for tonsillectomy, knee arthroscopy, thyroid surgery. She had stents placed in 2017. She has history o f hypertension and hyperlipidemia. She does have peripheral neuropathy as well. SHE HAS ALLERGY TO PENICILLIN, BACTRIM, AND HYDROCODONE. She currently is takin g aspirin and Plavix and Valtrex. REVIEW OF SYSTEMS: Otherwise, is negative. No hi story of hemophilia, coagulopathy, varicose vein stripping or phlebit is. PHYSICAL EXAMINATION: GENERAL: Demonstrates well-nourished female, in no apparent distress. NECK: There are no carotid bruits. Carotid pulse present. Radial pulse present. CHEST: Clear. HEART: Regular rate and rhythm without murmur. ABDOMEN: Soft, nontender, without mass. EXTREMITIES: Peripheral pulse present to the right. The left dorsalis pedis is absent bilateral popliteal arteries are present. PATIENT NAME: LEYDA GARRETT BREASTS AND RECTAL: Not done. NEUROLOGIC: Physiological. ASSESSMENT: 1. High-grade right internal carotid artery sten osis, symptomatic. 2. Progression of high-grade stenosis. PLAN: This patient to have a right carotid endar terectomy. This will be done to decrease her risk of stroke. Dictated By: Robi Schroeder MD WT: CON:Z.HIM/ARIO/NTS Conf#: [id number]/DID#: [id number] Authenticated by Robi Schroeder MD On 020 11:33:49 PM at 2334 PATIENT NAME: LEYDA GARRETT 2019-07-19 06:57:00-00:00 [id number] [place] [address] PATIENT NAME: LEYDA GARRETT ADMIT DATE: 07/19/19 ACCOUNT NO: [id number] ROOM NO: AGE: 84 REPORT TYPE: CARDIAC CATHETERIZATION REPORT SEX: F ADMITTING PHYSICIAN: ATTENDING PHYSICIAN:Salome Wilson MD PROCEDURE DATE: 07/19/2019 BRIDGE REPAIRER: Salome Wilson MD TITLE OF THE PROCEDURE: 1. Left heart catheterization. 2. Selective bilateral carotid angiograms. INDICATION FOR THE PROCEDURE: Angina, coronary a rtery disease, previous stentings, dizziness, carotid disease for cardia c and carotid angiograms. ESTIMATED BLOOD LOSS: Minimal. COMPLICATIONS: None. CONTRAST: 90 mL. ANESTHESIA: Conscious sedation with Versed and f entanyl. A 1% lidocaine for local anesthesia. FINAL DIAGNOSES: Two-vessel coronary artery dise ase, patent RCA stents, bilateral carotid disease, more severe on the ri ght. The recommendation is right carotid surgery. The medical therapy for t he coronary artery disease. PROCEDURE IN DETAIL: After informed consent, the patient was brought to the cardiac catheterization lab in a stable fasting nonsedated state. She was prepped and draped in the usual sterile fashion. After conscious sedation, 1% lidocaine was administered to the right common f emoral artery area for local anesthesia. A 6-Emirati sheath was placed in the right common femoral artery using standard techniques and fluoroscop y. After heparinization, left coronary angiogram showed calcified L AD, long mid lesion of 60%, 20% plaques otherwise in the LAD, 20% in the left olga n with ectasia, 30% in the proximal circumflex, 40% in the second OM. Right coronary angiogr am showed patent stents and 30% plaque at the end of the stent into dominant vessel. Left ventricular angiogram showed an ejection fraction of 65%, normal wall motion, left ventricular end-diastolic pressure of 11 and no significant aortic valve g radient. Selective carotid angiogram showed the right internal carotid to b e 85%, hazy at its origin and the left carotid at the bulb, 55%, appears to be a stable plaque. The right groin was sealed using Angio-Seal. There were no complications. The patient tolerated the procedure well. The patient was tr ansferred back to the holding area for observation. She will be treated medica lly for her coronary artery disease. I will be getting carotid surgery. The right groin was sealed with PATIENT NAME: LEYDA GARRETT Angio-Seal. There were no complications. The pat ient tolerated the procedure well. Dictated By: Salome Wilson MD WT: CATH:ELIZABETH/LINNEA/JHOAN Conf#: [id number]/DID#: [id number] Authenticated by Salome Wilson MD On 06/25 08:01:22 AM at 0801 PATIENT NAME: LEYDA GARRETT 2019-07-19 05:50:00-00:00 [id number] [place] [id number] PATIENT NAME: LEYDA GARRETT ADMIT DATE: 07/19/19 ACCOUNT NO: [id number] ROOM NO: AGE: 84 REPORT TYPE: ELECTROCARDIOGRAM SEX: F ADMITTING PHYSICIAN: ATTENDING PHYSICIAN:Salome Wilson MD Order: [id number] Test Reason : [facility] Test Date/Time Stamp: SunJul 19 2019 05:50:53 Blood Pressure : / mmHG Vent. Rate : 065 BPM Atrial Rate : 065 BPM P-R Int : 166 ms QRS Dur : 094 ms QT Int : 402 ms P-R-T Axes : 038 036 043 degre es QTc Int : 418 ms Normal sinus rhythm Normal ECG When compared with ECG of 22-OCT-2016 05:52, No significant change was found Confirmed by SALOME WILSON ([id number]) on 07/19/2019 7:57:09 AM Referred By: Salome Wilson Confirmed by:SALOME JACKSON at 0757 PATIENT NAME: LEYDA GARRETT 2019-07-18 06:55:00-00:00 [phone] [place] [address] PATIENT NAME: LEYDA GARRETT ADMIT DATE: ACCOUNT NO: [id number] ROOM NO: AGE: 84 REPORT TYPE: HISTORY AND PHYSICAL SEX: F ADMITTING PHYSICIAN: ATTENDING PHYSICIAN:Salome Wilson MD PATIENT NAME: LEYDA GARRETT ADMIT DATE: 07/19/2019 ADMISSION DATE: 07/19/2019 BRIDGE REPAIRER: Salome Wilson MD REASON FOR ADMISSION: Severe carotid disease, known coronary artery disease and previous stenting for cardia c catheterization and carotid angiogram and possible revascularization to be followed by carotid surg larry. HISTORY OF PRESENT ILLNESS: Leyda is an 84-yea r-old patient of mine with known atherosclerotic cardiovascular disease, wh o I have been following in my clinic for many years. Back in 2016, the patient had worsening angina. She was taken to [facility] and had a cardiac catheterization and three drug-eluting stents in the right coronary artery. At that time, she had 40% mid LAD plaquing and normal ejection fraction. The patien t continued to have stable angina over the years and dyspnea on mild exertion. Lately, her angina has been getting worse and she has worsening dyspnea as well as d izziness. Carotid Doppler was carried out on 06/24/2019 th at showed the right carotid now to be between 80% to 99% while the left one remained at 51% to 69%. S he had corresponding elevated Doppler velocities. This was significantly worse from the carotid done last year. Her last echocardiogram in 09/2018 showed oarg-qp-sbfcpfma aortic insufficiency and mitral insufficiency. Ejection fraction, normal, moderate pulmonary hypertension 40 to 50. Her last nuclea r stress test was negative in 09/2017. The patient has extensive coron ke artery disease as mentioned above. Last catheterization was 2016. Given the worseni ng of her carotid disease and her symptoms despite maximal medical therapy, giovany underwood is here for cardiac and carotid angiograms to assess her coronary status prior to referring her for right carotid surgery. PAST MEDICAL HISTORY: Remarkable for hypertensio n, hyperlipidemia, hypothyroidism, sciatica, diverticulosis, pudend al neuralgia, and allergies. PAST SURGICAL HISTORY: She has had a tonsillecto my, knee arthroscopy, thyroid surgery and the above-mentioned stents. ALLERGIES: PENICILLIN, BACTRIM AND HYDROCODONE G AGATA HER ERRATIC BEHAVIOR. MEDICATIONS: Include duloxetine, valacyc lovir p.r.n., clopidogrel 75 mg daily, potassium, vitamins, atorvas tatin 80 mg daily, fenofibrate 54 mg daily, losartan 100 mg daily, hydrochlorothiazide 25 mg daily, p regabalin 50 mg t.i.d., fish oil, Co Q10. Lutein 40 mg daily, and aspirin 81 mg daily. A complete list of the medications accompanies the patient. PATIENT NAME: LEYDA GARRETT SOCIAL HISTORY: There is no history of smoking, alcohol, or street drug use. FAMILY HISTORY: Negative for premature atheroscl erosis. REVIEW OF SYSTEMS: Remarkable for headaches, all ergies, decreased hearing, hypothyroidism, easy bruisability, constipation, difficulty balancing, poor coordination due to her neuralgia, some weakness. No TIAs or strokes. No acute GI or symptoms. She has had diverticulosis in the past. PHYSICAL EXAMINATION: GENERAL: Reveals a pleasant elderly lady in no a cute distress. VITAL SIGNS: Blood pressure 132/68, pulse 68 and regular, respiratory rate 18 and unlabored, and temperature afebrile. HEENT: Head, atraumatic and normocephalic. Eyes and ENT examination within normal for age. NECK: Supple. Bilateral bruits present. Normal u pstroke. No jugular venous distention. LUNGS: Clear and resonant. HEART: Regular rate and rhyt hm with II/ systolic and diastolic murmurs at the mitral and aortic area respectively. No gallops. ABDOMEN: Soft. No tenderness, no organomegaly, n o masses or bruits. EXTREMITIES: 1+ edema, 2+ distal pulses. No cyan osis or clubbing. NEUROLOGIC: Alert and oriented x3. The examinati on appears to be nonfocal. LABORATORY DATA AND DIAGNOSTIC STUDIES: Pending. Noninvasive cardiovascular workup enclosed. IMPRESSION: This is an 84-year-old lady with sig nificant carotid disease that needs surgical intervention. She has dizziness. She has also angina, dyspnea, and known coronary artery disease and previous s tenting in 2017. She is here for left heart catheterization and bilateral rose ective carotid angiograms to assess for possible revascularization. The patie nt is on maximal medical therapy. The recommendation is to pro ceed with the above-mentioned procedures. The risks and benefits of the planned procedures were discussed in detail with the patient and she is willing to proceed. Rest as per order s. Dictated By: Salome Wilson MD WT: HP:CRISTINA/LINNEA/JHOAN Conf#: [id number]/DID#: [id number] Authenticated and Edited by Salome Wilson MD On 07/18/19 7:28:35 AM at 0731 PATIENT NAME: LEYDA GARRETT
--- NOTE | 2022-09-25 09:04 | RAD REPORT ---
EXAM DESCRIPTION: CT - [id number] - 09/25/2022 8:30 am CLINICAL HISTORY: TRAUMA COMPARISON: No comparisons TECHNIQUE: Axial thin cut noncontrast CT images of the head were obtained. Axial thin cut noncontrast CT images of the cervical spine were obtained. Multiplanar reformatted images were generated and reviewed. All CT scans are performed using dose optimization technique as appropriate and may include automated exposure control or mA/KV adjustment according to patient size. FINDINGS: CT HEAD WITHOUT CONTRAST: No acute hemorrhage, hydrocephalus or extra-axial collection is identified.No areas of brain edema or midline shift. The paranasal sinuses and mastoids are clear.The calvarium is intact. Left parietal scalp laceration and small hematoma. CT CERVICAL SPINE WITHOUT CONTRAST: No fracture or subluxation.No prevertebral soft tissues swelling is identified. IMPRESSION: No acute traumatic intracranial or cervical spine findings. Left parietal scalp laceration and small hematoma.
--- NOTE | 2022-09-25 09:06 | RAD REPORT ---
EXAM DESCRIPTION: RAD - Hip Right 2 View - 09/25/2022 8:56 am CLINICAL HISTORY: PAIN COMPARISON: Abdomen Pelvis W Contrast dated 10/18/2020 TECHNIQUE: Right hip, AP and frog-leg views. FINDINGS: There is no fracture or dislocation. No acute or destructive bony process seen. Ovoid wel l-circumscribed sclerotic lesion along the proximal right femoral metaphysis, stable, suggestive of a small bone island. IMPRESSION: No acute findings of the right hip.
--- NOTE | 2022-09-25 09:19 | ER ---
Nurse's Notes [facility] Name: Leyda Ramos Age: 87 yrs Sex: Female : 1935 Arrival Date: 09/25/2022 Time: 08:13 Bed 7 Private MD: Diagnosis: Fall on same level from slipping, tripping and stumbling without subsequent striking against object;Unspecified injury of head, initial encounter-hematoma Presentation: 09/25 08:20 Chief complaint: EMS states: Toned out for fall, pt was walking with walker and fell jl7 hitting back of head. Pt denies dizziness or chest pain. Pt reports nausea post fall. EMS gave 4 mg Zofran in route with good relief. Coronavirus screen: At this time, the client does not indicate any symptoms associated with coronavirus-19. Ebola Screen: No symptoms or risks identified at this time. Initial Sepsis Screen: Does the patient meet any 2 criteria? No. Patient's initial sepsis screen is negative. Does the patient have a suspected source of infection? No. Patient's initial sepsis screen is negative. Risk Assessment: Do you want to hurt yourself or someone else? Patient reports no desire to harm self or others. Onset of symptoms was September 25, 2022 at 07:45. Care prior to arrival: Medication(s) given: zofran 4 mg, IV initiated. 20 GA, in the left antecubital area. 08:20 Method Of Arrival: EMS: [facility] jl7 08:20 Acuity: EVELIO 3 jl7 Triage Assessment: 08:20 General: Appears in no apparent distress. uncomfortable, Behavior is calm, cooperative, jl7 appropriate for age. Pain: Complains of pain in HEADACHE. Neuro: Level of Consciousness is awake, alert, obeys commands, Oriented to person, place, time, situation. Cardiovascular: Patient's skin is warm and dry. Respiratory: Airway is patent Respiratory effort is even, unlabored, Respiratory pattern is regular, symmetrical. GI: Reports nausea. Derm: Skin is pink, warm \T\ dry. Injury Description: Head injury sustained to hematoma to left aspect of posterior scalp. Historical: - Allergies: 08:23 Augmentin; jl7 08:23 Bactrim; jl7 08:23 Hydrocodone-Acetaminophen; jl7 08:23 PENICILLINS; jl7 - Home Meds: 08:23 aspirin 81 mg Oral chew [Active]; amlodipine 10 mg tablet daily [Active]; sodium jl7 chloride 1,000 mg miscellaneous Tablet, Soluble 2 times per day [Active]; losartan 100 mg oral tablet daily [Active]; carvedilol 3.125 mg Oral tab 1 tab 2 times per day [Active]; duloxetine 20 mg oral capsule,delayed release (e.c.) daily [Active]; isosorbide dinitrate 30 mg Oral tablet once [Active]; Plavix 75 mg oral tablet daily [Active]; levothyroxine 50 mcg tab 1 tab once daily [Active]; donepezil 10 mg oral Tablet,disintegrating every day at bedtime [Active]; pregabalin 100 mg Oral capsule every 12 hours [Active]; Lipitor 80 mg oral tablet [Active]; - PMHx: 08:23 Chronic pain; pelvic; GALLSTONES; High Cholesterol; Hypertension; Hypothyroidism; jl7 leaking heart valve; Alzheimer's disease; Hypercholesterolemia; Depressive disorder; GERD; Chronic Kidney Disease, stage 3; - Immunization history:: Adult Immunizations up to date. - Social history:: Smoking status: Patient denies any tobacco usage or history of. Screenin:53 [facility] ED Fall Risk Assessment (Adult) History of falling in the last 3 months, jl7 including since admission Yes- single mechanical fall (1 pt) Confusion or Disorientation No (0 pts) Intoxicated or Sedated No (0 pts) Impaired Gait No (0 pts) Mobility Assist Device Used No (0 pt) Altered Elimination No (0 pt) Score/Fall Risk Level 0 - 2 = Low Risk Oriented to surroundings, Maintained a safe environment. Abuse screen: Denies threats or abuse. Denies injuries from another. Nutritional screening: No deficits noted. Tuberculosis screening: No symptoms or risk factors identified. Assessment: 08:53 Reassessment: Patient appears in no apparent distress at this time. No changes from jl7 previously documented assessment. Patient and/or family updated on plan of care and expected duration. Pain level reassessed. Patient is alert, oriented x 3, equal unlabored respirations, skin warm/dry/pink. Pt's granddaughter at bedside. 09:16 Reassessment: pt appears to be 87% on RA. placed pt on 2L via NC, now 92%. pt denies kc6 chest pain or SOB at this time. 09:45 Reassessment: Pt reports nausea, ERP notified, VO fro 4 mg Zofran ODT. jl7 Vital Signs: 08:20 BP 133 / 91; Pulse 91; Resp 15; Temp 97.9; Pulse Ox 97% ; Weight 64.5 kg; Height 5 ft. jl7 0 in. ; 08:53 BP 139 / 54; Pulse 54; Resp 15; Pulse Ox 95% ; jl7 09:35 BP 140 / 54; Pulse 54; Resp 15; Pulse Ox 93% ; jl7 08:20 Body Mass Index 27.77 (64.50 kg, 152.4 cm) jl7 ED Course: 08:17 Patient arrived in ED. kc6 08:17 [facility] Hyatt [facility]C [facility] kb 08:17 Gabriel Butt MD is Attending Physician. kb 08:19 Rashad Garvey, RN is Primary Nurse. jl7 08:20 Arm band placed on right wrist. jl7 08:20 Patient has correct armband on for positive identification. Placed in gown. Bed in low jl7 position. Call light in reach. Side rails up X2. Client placed on continuous cardiac and pulse oximetry monitoring. NIBP monitoring applied. 08:20 Warm blanket given. jl7 08:23 Triage completed. jl7 08:32 CT Head C Spine In Process Unspecified. EDMS 08:58 Hip Right 2 View XRAY In Process Unspecified. EDMS 09:45 No provider procedures requiring assistance completed. IV discontinued, intact, jl7 bleeding controlled, No redness/swelling at site. Pressure dressing applied. Administered Medications: 09:45 Drug: Ondansetron PO 4 mg Route: PO; jl7 09:45 Follow up: Response: Medication administered at discharge. jl7 Medication: 08:53 VIS not applicable for this client. jl7 Outcome: 09:18 Discharge ordered by . kb 09:50 Discharged to home via wheelchair, with family. jl7 09:50 Condition: stable 09:50 Discharge instructions given to patient, family, Instructed on discharge instructions, follow up and referral plans. Demonstrated understanding of instructions, follow-up care. 09:54 Patient left the ED. jl7 Signatures: Dispatcher [employer] EDMS Juany Hyatt FNP-C FNP-Ckb Rashad Garvey, RN RN jl7 Sapphire Herbert, RN RN kc6
--- NOTE | 2022-09-25 09:19 | EDPHYS ---
Physician Documentation [facility] Name: Leyda Ramos Age: 87 yrs Sex: Female : 1935 Arrival Date: 09/25/2022 Time: 08:13 Bed 7 Private MD: ED Physician Gabriel Butt HPI: 09/25 09:42 This 87 yrs old Female presents to ER via EMS with complaints of Fall Injury. kb 09:42 Details of fall: The patient fell from an upright position, while walking. Onset: The kb symptoms/episode began/occurred just prior to arrival. Associated injuries: The patient sustained injury to the head, hematoma, pain. Severity of symptoms: At their worst the symptoms were mild, moderate, in the emergency department the symptoms are unchanged. The patient has not experienced similar symptoms in the past. The patient has not recently seen a physician. Pt reports she was walking to the bathroom and her walker made her fall. c/o headache. No loc. . Historical: - Allergies: 08:23 Augmentin; jl7 08:23 Bactrim; jl7 08:23 Hydrocodone-Acetaminophen; jl7 08:23 PENICILLINS; jl7 - Home Meds: 08:23 aspirin 81 mg Oral chew [Active]; amlodipine 10 mg tablet daily [Active]; sodium jl7 chloride 1,000 mg miscellaneous Tablet, Soluble 2 times per day [Active]; losartan 100 mg oral tablet daily [Active]; carvedilol 3.125 mg Oral tab 1 tab 2 times per day [Active]; duloxetine 20 mg oral capsule,delayed release (e.c.) daily [Active]; isosorbide dinitrate 30 mg Oral tablet once [Active]; Plavix 75 mg oral tablet daily [Active]; levothyroxine 50 mcg tab 1 tab once daily [Active]; donepezil 10 mg oral Tablet,disintegrating every day at bedtime [Active]; pregabalin 100 mg Oral capsule every 12 hours [Active]; Lipitor 80 mg oral tablet [Active]; - PMHx: 08:23 Chronic pain; pelvic; GALLSTONES; High Cholesterol; Hypertension; Hypothyroidism; jl7 leaking heart valve; Alzheimer's disease; Hypercholesterolemia; Depressive disorder; GERD; Chronic Kidney Disease, stage 3; - Immunization history:: Adult Immunizations up to date. - Social history:: Smoking status: Patient denies any tobacco usage or history of. ROS: 09:40 Constitutional: Negative for fever, chills, and weight loss. kb 09:40 Neuro: Positive for headache. 09:40 All other systems are negative. Exam: 09:41 Constitutional: This is a well developed, well nourished patient who is awake, alert, kb and in no acute distress. Eyes: Pupils equal round and reactive to light, extra-ocular motions intact. Lids and lashes normal. Conjunctiva and sclera are non-icteric and not injected. Cornea within normal limits. Periorbital areas with no swelling, redness, or edema. ENT: Moist Mucous membranes Cardiovascular: Regular rate and rhythm with a normal S1 and S2. No gallops, murmurs, or rubs. No pulse deficits. Respiratory: Respirations even and unlabored. No increased work of breathing. Talking in full sentences Abdomen/GI: Soft, non-tender. No distention Skin: Warm, dry with normal turgor. Normal color. 09:41 Head/face: Noted is no obvious of injury or deformity except hematoma, that is mild, of the left occipital area. 09:41 Musculoskeletal/extremity: Extremities: grossly normal except: noted in the right hip: tenderness, ROM: intact in all extremities, Circulation is intact in all extremities. Sensation intact. Weight bearing: can bear weight with assistance only, uses walker. 09:41 Neuro: Exam negative for acute changes. Vital Signs: 08:20 BP 133 / 91; Pulse 91; Resp 15; Temp 97.9; Pulse Ox 97% ; Weight 64.5 kg; Height 5 ft. jl7 0 in. ; 08:53 BP 139 / 54; Pulse 54; Resp 15; Pulse Ox 95% ; jl7 09:35 BP 140 / 54; Pulse 54; Resp 15; Pulse Ox 93% ; jl7 08:20 Body Mass Index 27.77 (64.50 kg, 152.4 cm) jl7 MDM: 08:18 Patient medically screened. kb 09:40 Differential diagnosis: abrasion, closed head injury, fracture, laceration, hematoma. kb Data reviewed: vital signs, nurses notes. Historians other than the Patient: EMS: [facility]. Counseling: I had a detailed discussion with the patient and/or guardian regarding: the historical points, exam findings, and any diagnostic results supporting the discharge/admit diagnosis, radiology results, the need for outpatient follow up, a family practitioner, to return to the emergency department if symptoms worsen or persist or if there are any questions or concerns that arise at home. 09/25 08:18 Order name: CT Head C Spine; Complete Time: 09:15 kb 09/25 08:18 Order name: Hip Right 2 View XRAY; Complete Time: 09:15 kb Administered Medications: 09:45 Drug: Ondansetron PO 4 mg Route: PO; jl7 09:45 Follow up: Response: Medication administered at discharge. jl7 Disposition: 10:03 Co-signature as Attending Physician, Gabriel Butt MD I reviewed the patient's care rt provided by the Advanced Practice Provider and agree with the diagnosis and treatment plan. Disposition Summary: 09/25/22 09:18 Discharge Ordered Location: Home kb Condition: Stable kb Diagnosis - Fall on same level from slipping, tripping and stumbling without subsequent kb striking against object - Unspecified injury of head, initial encounter - hematoma kb Followup: kb - With: Emergency Department - When: As needed - Reason: Worsening of condition Followup: kb - With: Private Physician - When: 2 - 3 days - Reason: Recheck today's complaints, Continuance of care, Re-evaluation by your physician Discharge Instructions: - Discharge Summary Sheet kb - Hematoma, [id number] kb - Head Injury, Adult, [id number] kb Forms: - Medication Reconciliation Form kb - Thank You Letter kb - Antibiotic Education kb - Prescription Opioid Use kb - [email or web address] kb Signatures: Dispatcher [employer] Juany Nowak FNP-C FNP-Ckb Leal, Jahala, RN RN jl7 Gabriel Butt MD MD rt
[2022-09-25] MEDS ORDERED: ONDANSETRON 4 MG (ODT) TAB ONE (09:54)
[2022-09-25 09:59] VITALS: TEMP 97.9
[2022-09-25 10:02] VITALS: BP 140/54; O2SAT 93
== END 2022-09-25 09:54 | disposition home or self-care (01) ==
LOC: ER 08:13
DX: S00.83XA Contusion of other part of head, initial encounter (principal); W01.0XXA Fall on same level from slipping, tripping and stumbling without subsequent striking against object, initial encounter; G30.9 Alzheimer's disease, unspecified; F02.80 Dementia in other diseases classified elsewhere, unspecified severity, without behavioral disturbance, psychotic disturbance, mood disturbance, and anxiety; I12.9 Hypertensive chronic kidney disease with stage 1 through stage 4 chronic kidney disease, or unspecified chronic kidney disease; N18.30 Chronic kidney disease, stage 3 unspecified
CPT/HCPCS: 70450; 72125; 73502; 99284; Q0162

== ENCOUNTER 2023-01-20 13:53 | Emergency (ER) | payer OTHER ==
--- OUTSIDE RECORDS SUMMARY | 2023-01-20 14:02 | XMS REPORT | Continuity of Care Document ---
:1935 Author Organization [facility] t Address [address] [facility] [place] [address] Care Team Providers Name Role Phone SALOME WILSON Primary Care Physician Unavailable Robi Schroeder Attending Clinician Unavailable Debora Marques MA Attending Clinician Unavailable Adrianna Miranda MD Attending Clinician Poli Aaron MD Attending Clinician Chelly Stahl Attending Clinician Unavailable Caden Hamlin RN Attending Clinician Unavailable DIANE LONG Attending Clinician Unavailable Bethany TURPIN, Nicolas Bullard Attending Clinician Diane Long MD Attending Clinician Zora Landry MD Attending Clinician Emily Reyes RN Attending Clinician Unavailable Laure KUMAR, Marisa Pena Attending Clinician Unavailable Elidia Chris MA Attending Clinician Unavailable Maryanne Valdovinos Attending Clinician Unavailable Abdullahi Serrano MD Attending Clinician aKthrin Barrett Attending Clinician Unavailable Tyesha Garcia MA Attending Clinician Unavailable NERISSA STEINER Attending Clinician Unavailable KARI FLORES Attending Clinician Unavailable Salome Wilson Attending Clinician Unavailable Robi Schroeder Admitting Clinician Unavailable ZORA LANDRY Admitting Clinician Unavailable Zora Landry MD Admitting Clinician ADRIANNA MIRANDA Admitting Clinician Unavailable KARI FLORES Admitting Clinician Unavailable Poli Aaron Admitting Clinician Unavailable Salome Wilson Admitting Clinician Unavailable Payers Payer Name Policy Type Policy Number Effective Date Expiration Date S ource Problems Condition Condition Condition Status Onset Resolution Last Treating Co mments Source Name Details Category Date Date Treatment Clinician Date Hypothyroi Hypothyroi Disease Active U nivers dism dism 5-22 ity of 00:00: [place] 00 Medical Branch Acute Acute Disease Active Univers alteration alteration 5-21 it y of in mental in mental [...] right knee 00:00: Ho spita 00 l 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 Medicare Medicare Disease Active Overview: Pr [facility]odi [facility] yoan visit, visit, 00 note l subsequent subsequent might be different from the original. Patient is , lives independe ntly. She does not have functiona l impairmen t. She is up-to-bryce e with immunizat ions except that she has not received the Tdap. She is up-to-bryce e with [facility] ce procedure s except for the bone density. Last was in February 2012 with a T score -2.0. 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 Chronic Chronic Disease Active Methodi constipati constipati [...] Active M ethodi itis of itis of [address] hand hand 00:00: Hospita 00 l [...] SOW on S Health Acute Problem Active ASHWIN [...] hydrocod DA Active SV 2020-0 [facility] 14 00:[facility]: [address] sulfamet DA Active SV 2020-0 [facility] hoxazole -14 00:00: [address] trimetho DA Active SV 2020-0 [facility] prim - 00:00: [address] hydrocod DA Active SV allergy 2020-0 [facility] one - 00:00: [address] sulfamet DA Active SV allergy 2020-0 [facility] hoxazole -14 00:00: [address] trimetho DA Active SV allergy 2020-0 [facility] prim -14 00:00: [address] Penicill DA Active U RASH [facility] ins 07-28 Clear 00:00: [facility] Penicill DA Active U [facility] ins 5 [place] 00:00: [address] Sulfamet Propensi Active Rash 2017-03 Method i hoxazole ty to 0 st -Trimeth adverse 00:00: Hospita oprim reaction 00 l s to drug Penicill Propensi Active Rash 2017-03 Method i ins ty to adverse 00:00: Hospita reaction 00 l s to drug hydrocod DA Active SV [facility] one 10-21 Clear 00:00: [facility] sulfamet DA Active SV [facility] hoxazole 10-21 Clear 00:00: [facility] trimetho DA Active SV [facility] prim 10-21 Clear 00:00: [facility] hydrocod DA Active SV allergy [facility] one 10-21 Clear 00:00: [facility] sulfamet DA Active SV allergy [facility] hoxazole 10-21 Clear 00:00: [place] 00 [facility] trimetho DA Active SV allergy [facility] prim 10-21 Clear 00:00: [facility] Sulfamet Propensi Active Other (See Me thodi hoxazole ty to Comments) 10-21 adverse 00:00: Hospita reaction 00 l s to drug Trimetho Propensi Active Other (See Me thodi prim ty to Comments) 10-21 adverse 00:00: Hospita reaction 00 l s to drug Amoxicil Propensi Active Method i brandi ty [...] Univers BRANDI-POT 0-19 ity of CLAVULAN 00:00: [address] HYDROCOD DRUG Active Med Other-Cmnt 2014-03 Univ ers ONE INGREDI 0-19 ity of 00:00: [place] 00 Medical Branch Amoxicil Propensi Active Rash [...] Date Stop Date Source Natural brother Diabetes [facility] Natural [facility] daughter Other Method [facility] Natural father Lung cancer [facility] mother [facility] Natural sister Heart disease [facility] Natural son Diabetes [facility] Social History Social Habit Start Date Stop Date Quantity Comments Source Gender identity 2020-10-20 Identifies as Method ist 18:21:27 female gender Hospital (finding) Sexual orientation Method ist Hospital History SDOH University o f Alcohol Std Drinks [place] [facility] History SDOH University o f Alcohol Binge [place] Medic al Branch History SDOH Social Unive rsity of Connections Get [place] Med ical Together Branch History SDOH Social Unive rsity of Connections [facility] Medical Branch History SDOH Social Unive rsity of Connections [place] [facility] Membership Branch History SDOH Social Unive rsity of Connections [place] [facility] Meetings Branch History SDOH 2022-08-14 2022-08-14 1 University o f Alcohol Frequency 00:00:00 00:00:00 [place] M edical Branch History SDOH Social 2022-08-14 2022-08-14 5 Unive rsity of Connections Phone 00:00:00 00:00:00 [place] M edical Branch History SDOH Social 2022-08-14 2022-08-14 4 Unive rsity of Connections Living 00:00:00 00:00:00 [place] [facility] History SDOH 2022-08-14 2022-08-14 0 University o f Physical Activity 00:00:00 00:00:00 [place] M edical DPW Branch History SDOH 2022-08-14 2022-08-14 0 University o f Physical Activity 00:00:00 00:00:00 [place] M edical MPS Branch History SDOH 2022-08-14 2022-08-14 5 University o f Financial 00:00:00 00:00:00 [place] [facility] History SDOH Food 2022-08-14 2022-08-14 1 Univers ity of Worry 00:00:00 00:00:00 [place] [facility] History SDOH Food 2022-08-14 2022-08-14 1 Univers ity of Scarcity 00:00:00 00:00:00 [place] [facility] History SDOH 2022-08-14 2022-08-14 2 University o f Transport Med 00:00:00 00:00:00 [place] Medic al Branch History SDOH 2022-08-14 2022-08-14 2 University o f Transport Non-Med 00:00:00 00:00:00 [place] M edical Branch History SDOH 2022-08-14 2022-08-14 2 University o f Housing Unable to 00:00:00 00:00:00 [place] M edical Pay Branch History SDOH 2022-08-14 2022-08-14 1 University o f Housing Places 00:00:00 00:00:00 [place] Medi merissa Lived Branch History SDOH 2022-08-14 2022-08-14 2 University o f Housing Homeless 00:00:00 00:00:00 [facility] dical Last Year Branch Exposure to 2022-08-03 2022-08-13 Not sure University of SARS-CoV-2 (event) 00:00:00 17:27:00 [facility] Alcohol intake 2022-07-06 2022-07-06 Current [facility] 00:00:00 00:00:00 non-drinker of Hospital alcohol (finding) [...] l day) - Reported Cigarette 2021-12-21 2021-12-21 [facility] pack-years 00:00:00 00:00:00 Hospital Tobacco use and 2015-01-13 2015-01-13 Smokeless tobacco Un iversity of exposure 00:00:00 00:00:00 non-user [facility] History of tobacco 1955-06-13 1965-03-10 Cigarette Smoker [facility] use 00:00:00 00:00:00 Hospital Sex Ass[birth year] At [birth year] Universit y of 00:00:00 00:00:00 [facility] Smoking Status Start Date Stop Date Source Never smoked tobacco BILL rene (finding) Ex-smoker 2015-01-13 00:00:00 2015-01-13 00:00:00 [facility] Medications Ordered Filled Start Stop Current Ordering Indication Dosage Frequency Signature Comments Components Source Medication Medication Date Date Medication? Clinician (SIG) Name Name pantoprazol 2022- No [id number] 40mg Take 1 Univers e 40 mg EC 5-25 06-25 tablet by ity of tablet 00:00: 04:59 mouth in [place] 00 :00 the Medical morning Branch for 30 days. pantoprazol 2022- No [id number] 40mg Take 1 Univers e 40 mg EC 5-25 06-25 tablet by ity of tablet 00:00: 04:59 mouth in [place] 00 :00 the Medical morning Branch for 30 days. levothyroxi Yes 50ug Take 1 Univ ers ne 5-24 tablet by ity of (SYNTHROID) 16:30: mouth in [place] 50 mcg 45 the Medical tablet morning. Branch losartan Yes 100mg Take 1 Univer s (COZAAR) 5-24 tablet by ity of 100 mg 16:30: mouth in [place] tablet 45 the Medical morning. Branch atorvastati 2023-0 Yes 80mg Take 1 Univ ers n 80 mg 5-24 tablet by ity of tablet 16:30: mouth in [place] [address] the Medical morning. Branch vitamin 2023-0 Yes 1000ug Take 1,000 Un amber B-12 5-24 mcg by ity of (VITAMIN 16:30: mouth [place] B-12) 1,000 45 daily. Medica l mcg tablet Branch DULoxetine 2023-0 Yes 20mg Take 1 Unive rs 20 mg 5-24 capsule by ity of capsule 16:30: mouth in [place] [address] the Medical morning. 2 Branch cap daily carvediloL 2023-0 Yes 3.125mg Take 1 Un amber 3.125 mg 5-24 tablet by ity of tablet 16:30: mouth in [place] [address] the Medical morning Branch and 1 tablet in the evening. Take with meals. pregabalin 2023-0 Yes 100mg Take 1 Univ ers 100 mg 5-24 capsule by ity of capsule 16:30: mouth in [place] [address] the Medical morning Branch and 1 capsule in the evening. clopidogreL 2023-0 Yes 75mg Take 1 Univ ers 75 mg 5-24 tablet by ity of tablet 16:30: mouth in [place] [address] the Medical morning. Branch donepeziL 3-0 Yes 10mg Take 1 Univer s 10 mg 5-24 tablet by ity of tablet 16:30: mouth at [place] [address] bedtime. Medical Branch amLODIPine 3-0 Yes 5mg Take 1 Unive rs 5 mg tablet 5-24 tablet by ity of 16:30: mouth in [place] [address] the Medical morning. Branch isosorbide 2023-0 Yes 30mg Take 1 Unive rs dinitrate 5-24 tablet by ity o f 30 mg 16:30: mouth in [place] tablet 45 the Medical morning. Branch levothyroxi 2023-0 Yes 50ug Take 1 Univ ers ne 5-24 tablet by ity of (SYNTHROID) 16:30: mouth in [place] 50 mcg 45 the Medical tablet morning. Branch losartan 2023-0 Yes 100mg Take 1 Univer s (COZAAR) 5-24 tablet by ity of 100 mg 16:30: mouth in [place] tablet 45 the Medical morning. Branch atorvastati 2023-0 Yes 80mg Take 1 Univ ers n 80 mg 5-24 tablet by ity of tablet 16:30: mouth in [place] [address] the Medical morning. Branch vitamin 2023-0 Yes 1000ug Take 1,000 Un amber B-12 5-24 mcg by ity of (VITAMIN 16:30: mouth [place] B-12) 1,000 45 daily. Medica l mcg tablet Branch DULoxetine 2022-0 Yes 20mg Take 1 Unive rs 20 mg 5-24 capsule by ity of capsule 16:30: mouth in [place] [address] the Medical morning. 2 Branch cap daily carvediloL 3-0 Yes 3.125mg Take 1 Un amber 3.125 mg 5-24 tablet by ity of tablet 16:30: mouth in [place] [address] the Medical morning Branch and 1 tablet in the evening. Take with meals. pregabalin 3-0 Yes 100mg Take 1 Univ ers 100 mg 5-24 capsule by ity of capsule 16:30: mouth in [place] [address] the Medical morning Branch and 1 capsule in the evening. clopidogreL 3-0 Yes 75mg Take 1 Univ ers 75 mg 5-24 tablet by ity of tablet 16:30: mouth in [place] [address] the Medical morning. Branch donepeziL 2022-0 Yes 10mg Take 1 Univer s 10 mg 5-24 tablet by ity of tablet 16:30: mouth at [place] [address] bedtime. Medical Branch amLODIPine 3-0 Yes 5mg Take 1 Unive rs 5 mg tablet 5-24 tablet by ity of 16:30: mouth in [place] [address] the Medical morning. Branch isosorbide 2022-0 Yes 30mg Take 1 Unive rs dinitrate 5-24 tablet by ity o f 30 mg 16:30: mouth in [facility] 45 the Medical morning. Branch hydroCHLORO 3-0 2022- No 12.5mg Take 1 U nivers thiazide 5-24 05-24 capsule by ity of 12.5 mg 12:48: 00:00 mouth in [place] capsule 57 :00 the Medical morning. Branch thyroid 15 2022-0 2022- No 15mg Take 1 Univ ers mg tablet 5-24 05-24 tablet by ity of 12:48: 00:00 mouth in [place] 57 :00 the Medical morning. Branch fenofibrate 3-0 3- No 54mg Take 1 Uni vers (TRICOR) 54 5-24 05-24 tablet by it y of mg tablet 12:48: 00:00 mouth in [facility] as 57 :00 the Medical morning. Branch hydralAZINE Yes 10mg 10 mg, Univ ers (APRESOLINE - Slow IV ity o f ) injection 02:08: Push, [place] 10 mg 51 Q4HPRN, Medical Starting Branch on Sun08/15/22 at 2108, Until Discontinu ed, Routine, DBP=>10 0; SBP=>160 ampicillin 2022-0 2022- No [id number] 500mg Take 1 Univers 500 mg 08-16- capsule by ity of capsule 00:00: 04:59 mouth [place] 00 :00 every 6 Medical (six) Branch hours for 3 days. ampicillin 2022-2022- No [id number] 500mg Take 1 Univers 500 mg 08-16- capsule by ity of capsule 00:00: 04:59 mouth [place] 00 :00 every 6 Medical (six) Branch hours for 3 days. donepeziL Yes 10mg 10 mg, Univer s (ARICEPT) 08-15 Oral, QHS, ity of tablet 10 02:00: First dose [place] mg 00 on Sun08/14/22 at Branch 2100, Until Discontinu ed, Routine cefTRIAXone 2022- No 1000mg 1,000 mg, Univers (ROCEPHIN) 08-15- IV ity of 1,000 mg in 00:00: 23:59 Piggyback, [place] NaCl 0.9% 00 :00 Q24H ABX, Medic [...] Yes 40mg 40 mg, Univ ers e 5-22 Oral, ity of (PROTONIX) 14:00: DAILY, [place] EC tablet 00 First dose Medi merissa 40 mg on Sun [place] 08/14/22 at 0900, Until Discontinu ed, Routine isosorbide 2022-0 Yes 30mg 30 mg, Unive rs dinitrate 08-14 Oral, ity of (ISORDIL) 14:00: DAILY, [place] tablet 30 00 First dose Medi merissa mg on Sun [place] 08/14/22 at 0900, Until Discontinu ed, Routine losartan 2022-0 Yes 100mg 100 mg, Unive rs (COZAAR) 08-14 Oral, ity of tablet 100 14:00: DAILY, [place] mg 00 First dose Medical on [facility] 08/14/22 at 0900, Until Discontinu ed, Routine DULoxetine 2022-0 Yes 20mg 20 mg, Unive rs (CYMBALTA) 08-14 Oral, ity of capsule 20 14:00: DAILY, [place] mg 00 First dose Medical on [facility] 08/14/22 at 0900, Until Discontinu ed, Routine clopidogreL 0 Yes 75mg 75 mg, Univ ers (PLAVIX) 75 08-14 Oral, ity of mg tablet 14:00: DAILY, [place] 75 mg 00 First dose Medical on [facility] 08/14/22 at 0900, Until Discontinu ed, Routine atorvastati 0 Yes 80mg 80 mg, Univ ers n (LIPITOR) 08-14 Oral, ity of tablet 80 14:00: DAILY, [place] mg 00 First dose Medical on [facility] 08/14/22 at 0900, Until Discontinu ed, Routine amLODIPine 2022-0 Yes 5mg 5 mg, Univer s (NORVASC) 08-14 Oral, ity of tablet 5 mg 14:00: DAILY, [place] 00 First dose Medical on [facility] 08/14/22 at 0900, Until Discontinu ed, Routine enoxaparin 2022-0 Yes 40mg 40 mg, Unive rs (LOVENOX) 08-14 Subcutaneo ity of injection 14:00: [place], [place], [place] 40 mg 00 First dose Medical on [facility] 08/14/22 at 0900, Until Discontinu ed, Routine hydroCHLORO 2022-0 202- No 12.5mg 12.5 mg, Univers thiazide 08-14 Oral, ity of (ESIDRIX) 14:00: 15:48 DAILY, [place] tablet 12.5 00 :16 First dose Me dical mg on [facility] 08/14/22 at 0900, Until Discontinu ed pregabalin Yes 100mg 100 mg, Uni vers (LYRICA) 08-14 Oral, BID, ity o f capsule 100 13:00: First dose [place] mg 00 on [facility] 08/14/22 at Branch 0800, Until Discontinu ed, Routine carvediloL Yes 3.125mg 3.125 mg, Univers (COREG) 08-14 Oral, BID ity of tablet 13:00: MEALS, [place] 3.125 mg 00 First dose Medic al on [facility] 08/14/22 at 0800, Until Discontinu ed, Routine levothyroxi Yes 50ug 50 mcg, Uni vers ne 08-14 Oral, ity of (SYNTHROID) 11:00: QAM-0600, [place] tablet 50 00 First dose Medi merissa mcg on [facility] 08/14/22 at 0600, Until Discontinu ed, Routine gabapentin 2022- No 600mg Take 2 Uni vers (NEURONTIN) 08-14 capsules ity of 300 mg 02:57: 00:00 by mouth [place] capsule 12 :00 in the Medical morning Branch and 2 capsules in the evening. linaCLOtide 2022- No 145ug Take 1 Un amber 145 mcg 08-14 capsule by ity o f capsule 02:57: 00:00 mouth in [place] 12 :00 the Medical morning. Branch acidophilus 2022- No 1{capsu Take 1 Cap Univers -pectin, 08-14 le} by mouth ity of citrus 100 02:57: 00:00 daily. [place] million 12 :00 Medical cell-10 mg Branch Cap coenzyme 2022-2022- No 100mg Take 1 Unive rs Q10 100 mg 08-14 capsule by it y of softgel 02:57: 00:00 mouth in [place] 12 :00 the Medical morning. Branch multivit-mi 2022-2022- No 1{tbl} Take 1 Tab Univers n-iron-FA-l 5-22 05-22 by mouth ity of utein 8 mg 02:57: 00:00 [place]. [place] iron-400 12 :00 Medical mcg-300 mcg [...] of 0.005 % 02:57: 00:00 both [place] ophthalmic 12 :00 every Medical drops evening. Branch ondansetron Yes 4mg 4 mg, Slow Univers (ZOFRAN 08-14 IV Push, ity of (PF)) 02:29: Q6HPRN, [place] injection 4 01 Starting Medi merissa mg on [facility] 08/13/22 at 2128, Until Discontinu ed, Routine, Nausea and Vomiting (N/V) acetaminoph Yes 650mg 650 mg, Un amber en 08-14 Oral, ity of (TYLENOL) 02:28: Q6HPRN, [place] tablet 650 39 Starting Medic al mg on [facility] 08/13/22 at 2127, Until Discontinu ed, Routine, Pain (scale 1-3) iopamidol 2022- No [id number] 100mL 100 mL, Univers (ISOVUE 08-14 Intravenou ity o f 370-500 mL) 02:00: 02:00 s, ONCE, 1 [place] injection 00 :00 dose, On Medica l 100 mL [facility] 08/13/22 at 2100, Routine cloNIDine 2022- No .1mg 0.1 mg, Univ ers (CATAPRES) 08-14 Oral, ity of tablet 0.1 00:15: 00:30 ONCE, 1 [place] as mg 00 :00 dose, On Medical Sun Branch 08/13/22 at 1915, STAT cefTRIAXone 2022-0 2022- No 1000mg 1,000 mg, Univers (ROCEPHIN) 08-14-22 IV ity of 1,000 mg in 00:00: 00:45 Piggyback, [place] NaCl 0.9% 00 :00 ONCE, 1 Medical (NS) 100 mL dose, On Bran ch MINI-BAG [place] 08/13/22 at 1900, Administer over 30 Minutes, 100 mL
Reas on for Anti-Infec tive: Empiric Non-Surgic al Prophylaxi s
Durat ion of therapy: 72 hours NaCl 0.9% 2022- No 500mL at 999 Univ ers (NS) bolus 08-13-22 mL/hr, 500 it y of infusion 23:15: 01:00 mL, IV [place] 500 mL 00 :00 Infusion, Medical ONCE, 1 Branch dose, On [place] 08/13/22 at 1815, STAT fluticasone 2022-0 Yes [id number] SPRAY 2 Methodi propionate 5-[address] (FLONASE) 00:00: INTO EACH Hos yoan 50 00 NOSTRIL l mcg/actuati EVERY DAY on nasal spray fluticasone 2022-0 Yes [id number] SPRAY 2 Methodi propionate 5-[address] [...] l times a day with meals. donepeziL 2023-0 Yes 5mg QD Take 5 mg Met hodi (ARICEPT) 5 1-[address] MG tablet 13:35: nightly. Hosp dinora 01 l cyanocobala 2023-0 Yes Take by Met hodi min, 1-[address] vitamin 13:35: Hospita B-12, 01 l (VITAMIN B-12 ORAL) hydroCHLORO 2023-0 Yes 12.5mg QD Take 1 Me thodi thiazide 1-[address] (HYDRODIURI 13:35: (12.5 mg Ho spita L) 12.5 MG 01 total) by l tablet mouth every morning. hydroCHLORO 2021-03- No 25mg QD Take 25 mg Methodi thiazide 05-02- by mouth st (HYDRODIURI 10:02: 00:00 daily. Hos yoan L) 25 MG 43 :00 l tablet hydroCHLORO 2021-03- No 25mg QD Take 25 mg Methodi [...] Take 5 mg M ethodi (NORVASC) 5 05-02- by mouth st mg tablet 10:00: 00:00 [...] by l mouth daily. fluticasone 2021-03 Yes [id number] 100ug QD 2 sprays Methodi propionate - ([address] (FLONASE) 00:00: total) by Hos yoan 50 00 Each Nare l mcg/actuati route on nasal daily. spray losartan 2021-03 Yes 100mg QD Take 1 Method i (COZAAR) 2-[address] 100 MG 00:00: (100 mg Hospita tablet 00 total) by l mouth daily. fluticasone 2021-03 Yes [id number] 100ug QD 2 sprays Methodi propionate 2-07 [...] by l mouth daily. fluticasone 2021-03- No [id number] 100ug QD 2 sprays Methodi propionate 2- 05-15 ([address] (FLONASE) 00:00: 00:00 total) by Ho spita 50 00 :00 Each Nare l mcg/actuati route on nasal daily. spray fluticasone 2021-03- No [id number] 100ug QD 2 sprays Methodi propionate 2-07 05-15 ([address] (FLONASE) 00:00: 00:00 total) by Ho spita 50 00 :00 Each Nare l mcg/actuati route on nasal daily. spray valACYclovi 2021-03 Yes 500mg QD TAKE 1 Met hodi r (VALTREX) 1-[address] 500 MG 00:00: (500 MG Hospita tablet 00 TOTAL) BY l MOUTH DAILY. latanoprost 2021-03 Yes Method i (XALATAN) 04-03 st 0.005 % 00:00: Hospita ophthalmic 00 l solution valACYclovi 2021-03 Yes 500mg QD TAKE 1 Met hodi r (VALTREX) 1-[address] 500 MG 00:00: (500 MG Hospita tablet 00 TOTAL) BY l MOUTH DAILY. latanoprost 2021-03 Yes Method i (XALATAN) 09 st 0.005 % 00:00: Hospita ophthalmic 00 l solution valACYclovi 2021-03 Yes 500mg QD TAKE 1 Met hodi r (VALTREX) 1-[address] 500 MG 00:00: (500 MG [...] solution COCONUT OIL 2021-03- No Take by Pr thodi ORAL 04-[address] 14:06: 00:00 Hospita 36 :00 l COCONUT OIL 2021-03- No Take by Pr thodi ORAL 04-[address] 14:06: 00:00 Hospita 36 :00 l COCONUT OIL 2021-03- No Take by Pr thodi ORAL 04-[address] 14:06: 00:00 Hospita 36 :00 l COCONUT OIL 2021-03- No Take by Pr thodi ORAL 04-[address] 14:06: 00:00 Hospita 36 :00 l oxyCODone-a 2021-03 [place] [id number] 1{tbl} Q6H Take 1 Methodi cetaminophe 04-[address] n 00:00: 05:59 mouth Hospita (PERCOCET) 00 :00 every 6 l 5-325 mg (six) per tablet hours as needed for moderate pain for up to 5 days .acute pain. Max Daily Amount: 4 tablets oxyCODone-a 2021-03 1{tbl} Q6H Take 1 Methodi cetaminophe 04-[address] n 00:00: 05:59 mouth Hospita (PERCOCET) 00 :00 every 6 l 5-325 mg (six) per tablet hours as needed for moderate pain for up to 5 days .acute pain. Max Daily Amount: 4 tablets oxyCODone-a 2021-03 1{tbl} Q6H Take 1 Methodi cetaminophe 04-01- tablet by st n 00:00: 05:59 mouth Hospita (PERCOCET) 00 :00 every 6 l 5-325 mg (six) per tablet hours as needed for moderate pain for up to 5 days .acute pain. Max Daily Amount: 4 tablets oxyCODone-a 2021-032- No [id number] 1{tbl} Q6H Take 1 Methodi cetaminophe 04-01 [...] mcg 00 EVERY l tablet MORNING. atorvastati 2-0 Yes 80mg QD Take 1 Meth mike n (LIPITOR) 9-30 tablet (80 st 80 MG 00:00: mg total) Hospita tablet 00 by mouth l daily. atorvastati 2-0 Yes 80mg QD Take 1 Meth mike n (LIPITOR) 9-30 tablet (80 st 80 MG 00:00: mg total) Hospita tablet 00 by mouth l daily. atorvastati 2-0 Yes 80mg QD Take 1 Meth mike n (LIPITOR) 9-30 tablet (80 st 80 MG 00:00: mg total) Hospita tablet 00 by mouth l daily. atorvastati 2-0 Yes 80mg QD Take 1 Meth mike n (LIPITOR) 9-30 tablet (80 st 80 MG 00:00: mg total) Hospita tablet 00 by mouth l daily. atorvastati 2-0 Yes 80mg QD Take 1 Meth mike [...] by mouth l tablet every morning. apixaban 2-0 2022- No 2.5mg Q.5D Take 2.5 Met hodi (ELIQUIS) 9- 09-[address] 2.5 mg 10:10: 00:00 mouth 2 Hospita tablet 25 :00 (two) l times a day. apixaban 2-0 2022- No 2.5mg Q.5D Take 2.5 Met hodi (ELIQUIS) - 09-[address] 2.5 mg 10:10: 00:00 mouth 2 Hospita tablet 25 :00 (two) l times a day. apixaban 2-0 2022- No 2.5mg Q.5D Take 2.5 Met hodi (ELIQUIS) - 09-[address] 2.5 mg 10:10: 00:00 mouth 2 Hospita tablet 25 :00 (two) l times a day. apixaban 2-0 2022- No 2.5mg Q.5D Take 2.5 Met hodi (ELIQUIS) - 09-[address] 2.5 mg 10:10: 00:00 mouth 2 Hospita tablet 25 :00 (two) l times a day. clopidogrel 2-0 Yes 75mg QD Take 75 mg Methodi (PLAVIX) 75 - by mouth st mg tablet 09:45: daily. Hospit a 48 l losartan 2-0 Yes 100mg QD Take 100 Meth mike (COZAAR) 9-[address] 100 MG 09:45: mouth Hospita tablet 48 daily. l amLODIPine 2-0 Yes 5mg QD Take 5 mg Me thodi (NORVASC) 5 -[address] mg tablet 09:45: daily. Hospit a 48 l isosorbide 2-0 Yes 30mg QD Take 30 mg M ethodi mononitrate -[address] (IMDUR) 30 09:45: daily. Hospi ta MG 24 hr 48 l tablet hydroCHLORO 2-0 Yes 25mg QD Take 25 mg Methodi [...] latanoprost 2021-0 2021- No Metho di (XALATAN) 10-0715 st 0.005 % 11:20: 00:00 Hospita ophthalmic 36 :00 l solution latanoprost 2-0 2- No Metho di (XALATAN) 10-0715 st 0.005 [...] 17 gram 29 :00 l packet polyethylen 2022-0 2022- No 17g QD Take 17 g Methodi e glycol 7-15 07-[address] (MIRALAX) 11:20: 00:00 daily. Hospi ta 17 gram 29 :00 l packet polyethylen 2022-0 2022- No 17g QD Take 17 g Methodi e glycol 7-15 07-[address] (MIRALAX) 11:20: 00:00 daily. Hospi ta 17 gram 29 :00 l packet fenofibrate 2022-0 Yes 54mg Take 54 mg Method[facility] (LOFIBRA) 7-[address] 54 MG 00:00: Hospita tablet 00 l fenofibrate 2022-0 Yes 54mg Take 54 mg [facility] (LOFIBRA) [...] tablet 00 by mouth. l folic acid 2022-0 Yes 1mg QD [...] l thiamine 2021-0 Yes 100mg QD Take 1 Method i 100 MG 5-[address] tablet 00:00: (100 mg Hospita 00 total) by l mouth daily. thiamine 2-0 Yes 100mg QD Take 1 Method i 100 MG 5-[address] tablet 00:00: (100 mg Hospita 00 total) by l mouth daily. thiamine 2-0 Yes 100mg QD Take 1 Method i 100 MG 5-[address] tablet 00:00: (100 mg Hospita 00 total) by l mouth daily. valACYclovi 2021-0 Yes 500mg QD Take 1 Met hodi r (VALTREX) 3-[address] 500 MG 00:00: (500 mg Hospita tablet 00 total) by l mouth daily. valACYclovi 2021-2021- No 500mg QD Take 1 Me thodi r (VALTREX) 3-30 11- tablet st 500 MG 00:00: 00:00 (500 mg Hospita tablet 00 :00 total) by l mouth daily. valACYclovi 2021-0 2021- No 500mg QD Take 1 Me thodi r (VALTREX) 3-30 11- tablet st 500 MG 00:00: 00:00 (500 mg Hospita tablet 00 :00 total) by l mouth daily. valACYclovi 2021-0 2021- No 500mg QD Take 1 Me thodi r (VALTREX) 3-30 11- tablet st 500 MG 00:00: 00:00 (500 mg Hospita tablet 00 :00 total) by l mouth daily. valACYclovi 2021-0 2021- No 500mg QD Take 1 Me thodi r (VALTREX) 3-30 11-[address] 500 MG 00:00: 00:00 (500 mg Hospita tablet 00 :00 total) by l mouth daily. levothyroxi 2021-0 2021- No 100ug QD Take 1 Me thodi ne 1-10 09-[address] (SYNTHROID) 00:00: 00:00 (100 mcg H ospita 100 mcg 00 :00 total) by l tablet mouth every morning. levothyroxi 2021-0 2021- No 100ug QD Take 1 Me thodi ne 04-[address] (SYNTHROID) 00:00: 00:00 (100 mcg H ospita 100 mcg 00 :00 total) by l tablet mouth every morning. levothyroxi 2021- No 100ug QD Take 1 Me adaliodi ne 04-[address] (SYNTHROID) 00:00: 00:00 (100 mcg H ospita 100 mcg 00 :00 total) by l tablet mouth every morning. levothyroxi No 100ug QD Take 1 Me robbie ne 04-[address] (SYNTHROID) 00:00: 00:00 (100 mcg H ospita 100 mcg 00 :00 total) by l tablet mouth every morning. valACYclovi 2021- No Take 1 tab Methodi r (VALTREX) 04-[address] 500 MG 00:00: 00:00 days prn Hospit a tablet 00 :00 outbreak l valACYclovi No Take 1 tab Methodi r (VALTREX) 04-[address] 500 MG 00:00: 00:00 days prn Hospit a tablet 00 :00 outbreak l pregabalin No 50mg [id number] Take 50 mg Method[facility] (LYRICA) 50 03-31 [id number] [address] mouth [address] MG capsule 09:42: 00:00 3D (three) Hos yoan 10 :00 times a l day. aspirin 81mg QD Take 81 mg Met hodi (ECOTRIN) 03-[address] 81 MG 09:30: 00:00 daily. Hospita enteric 34 :00 l coated tablet Bacillus 1{tbl} QD Take 1 Meth mkie coagulans 03-[address] (PROBIOTIC, 09:30: 00:00 mouth Hosp dinora B. 31 :00 daily. l COAGULANS,) 10 billion cell capsule,del ayed release(DR/ EC) carbidopa-l No Metho di evodopa 03-31 st (SINEMET) [...] mouth Hospita 51 :00 daily. l pregabalin 0 Yes 50mg QD Take 1 Metho di (LYRICA) 50 1-[address] MG capsule 00:00: (50 mg Hospi ta 00 total) by l mouth nightly. pregabalin 0 Yes 50mg QD Take 1 Metho di [...] QD Take 1 Meth mike (LYRICA) 50 -08 24-[address] MG capsule 00:00: 05:59 (50 mg Hosp dinora 00 :00 total) by l mouth nightly. levothyroxi 2020-03- No TAKE 1 Met hodi ne 05-[address] (SYNTHROID) 00:00: 00:00 MOUTH Hosp dinora 100 mcg 00 :00 EVERY DAY l tablet fenofibrate 2020-03- No TAKE 1 Met hodi (TRICOR) 48 012-[address] MG tablet 00:00: 00:00 MOUTH Hospit a 00 :00 EVERYDAY l AT BEDTIME fenofibrate 2020-03- No TAKE 1 Met hodi (TRICOR) 48 012-[address] MG tablet 00:00: 00:00 MOUTH Hospit a 00 :00 EVERYDAY l AT BEDTIME fenofibrate 2020-03- No TAKE 1 Met hodi (TRICOR) 48 0-12-[address] MG tablet 00:00: 00:00 MOUTH Hospit a 00 :00 EVERYDAY l AT BEDTIME fenofibrate 2020-03- No TAKE 1 Met hodi (TRICOR) 48 012-[address] MG tablet 00:00: 00:00 [...] 00 :00 by mouth l daily. levothyroxi 2020-2020- No 100ug QD Take 1 Me thodi [...] #3) 300-30 mg per tablet diclofenac Yes [id number] APPLY 2 Methodi (VOLTAREN) 4-[address] 1 % gel 00:00: RIGHT KNEE Hosp dinora 00 4 TIMES A l DAY NEEDED FOR PAIN diclofenac 2021- No [id number] APPLY 2 [facility] (VOLTAREN) 4-26 11-[address] 1 % gel 00:00: 00:00 RIGHT KNEE Hos yoan 00 :00 4 TIMES A l DAY NEEDED FOR PAIN diclofenac 2021- No [id number] APPLY 2 [facility] (VOLTAREN) 4-26 11-[address] 1 % gel 00:00: 00:00 RIGHT KNEE Hos yoan 00 :00 4 TIMES A l DAY NEEDED FOR PAIN diclofenac 2021- No [id number] APPLY 2 [facility] (VOLTAREN) 4-26 11-[address] 1 % gel 00:00: 00:00 RIGHT KNEE Hos yoan 00 :00 4 TIMES A l DAY NEEDED FOR PAIN diclofenac 2021- No [id number] APPLY 2 [facility] (VOLTAREN) 4-26 11-[address] 1 % gel 00:00: 00:00 RIGHT KNEE Hos yoan 00 :00 4 TIMES A l DAY NEEDED FOR PAIN potassium 2019-03- No TAKE 1 Metho di chloride 012 03-[address] (K-DUR) 20 00:00: 00:00 MOUTH Hospi ta MEQ CR 00 :00 EVERY DAY l tablet Apixaban 0 No 2.5mg Twice A ANNIKA (Eliquis) 09-24 Day S 2.5 Mg TAB 12:37: Health 00 Apixaban 2019-0 No 2.5mg [facility] (Eliquis) 09-24 st 2.5 Mg TAB 12:37: [...] TAB na LIVE HCIS Clopidogrel No 75mg [place] Bisulfate st (Plavix) 75 [place] Mg TAB na LIVE HCIS Duloxetine No 60mg [place] Hcl st (Cymbalta) [place] 60 Mg CPDR na LIVE HCIS Fenofibrate No 150mg [place] (Lipofen) st 150 Mg CAP [place] na LIVE HCIS Isosorbide No 30mg [place] Dinitrate st (Isordil) [place] 30 Mg TAB na LIVE HCIS Levothyroxi No 75ug [place] Sodium st (Synthroid) [place] 75 Mcg na LIVE TABLET HCIS Potassium No [address] (K-Dur) 20 [place] Meq TABCR na LIVE HCIS Immunizations Ordered Immunization Filled Date Status Comments Sour ce Name Immunization Name Tdap 2022-01-19 Completed [facility] 00:00:00 [facility] Tdap 2022-01-19 Completed [facility] 00:00:00 [facility] Tdap 2022-01-19 Completed [facility] 00:00:00 [facility] FLUZONE HIGH-DOSE PF 2021-12-15 Completed [facility] 00:00:00 [facility] FLUZONE HIGH-DOSE PF 2021-12-15 Completed [facility] 00:00:00 [facility] FLUZONE HIGH-DOSE PF 2021-12-15 Completed [facility] 00:00:00 [facility] FLUZONE HIGH-DOSE PF 2021-03-31 Completed [facility] 00:00:00 [facility] FLUZONE HIGH-DOSE PF 2021-03-31 Completed [facility] 00:00:00 [facility] FLUZONE HIGH-DOSE PF 2021-03-31 Completed [facility] 00:00:00 [facility] FLUZONE HIGH-DOSE PF 2021-03-31 Completed Meth odist 00:00:00 [place] [id number] 2021-02-02 Completed [facility] t MRNA VACCINATION 00:00:00 [facility]2021-02-02 Completed [facility] t MRNA VACCINATION 00:00:00 [place] [id number] 2021-02-02 Completed [facility] MRNA VACCINATION 00:00:00 [place] [id number] 2021-02-02 Completed [facility] MRNA VACCINATION 00:00:00 [facility] FLUZONE HIGH-DOSE PF 2020-12-21 Completed [facility] 00:00:00 [facility] FLUZONE HIGH-DOSE PF 2020-12-21 Completed [facility] 00:00:00 [facility] FLUZONE HIGH-DOSE PF 2020-12-21 Completed [facility] 00:00:00 [facility] FLUZONE HIGH-DOSE PF 2020-12-21 Completed [facility]ist 00:00:00 [facility]19 2020-05-27 Completed Method[facility] t MRNA VACCINATION 00:00:00 [facility]19 2020-05-27 Completed [facility] MRNA VACCINATION 00:00:00 [place] [id number] 2020-05-27 Completed [facility] MRNA VACCINATION 00:00:00 [place] [id number] 2020-05-27 Completed [facility] MRNA VACCINATION 00:00:00 [place] [id number] 2020-05-27 Completed [facility] MRNA VACCINATION 00:00:00 [place] [id number] 2020-05-27 Completed [facility] MRNA VACCINATION 00:00:00 [place] [id number] 2020-05-27 Completed [facility] MRNA VACCINATION 00:00:00 [place] [id number] 2020-05-27 Completed [facility] MRNA VACCINATION 00:00:00 [place] [id number] 2020-05-01 Completed [facility] MRNA VACCINATION 00:00:00 [place] [id number] 2020-05-01 Completed [facility] MRNA VACCINATION 00:00:00 [place] [id number] 2020-05-01 Completed [facility] MRNA VACCINATION 00:00:00 [place] [id number] 2020-05-01 Completed [facility] MRNA VACCINATION 00:00:00 [place] [id number] 2020-05-01 Completed [facility] MRNA VACCINATION 00:00:00 [place] [id number] 2020-05-01 Completed [facility] MRNA VACCINATION 00:00:00 [place] [id number] 2020-05-01 Completed [facility] MRNA VACCINATION 00:00:00 [place] [id number] 2020-05-01 Completed [facility] MRNA VACCINATION 00:00:00 [facility] FLUZONE HIGH-DOSE PF 2019-11-25 Completed [facility] 00:00:00 [facility] Pneumococcal 2019-11-25 Completed [facility] Polysaccharide 00:00:00 [facility] FLUZONE HIGH-DOSE PF 2019-11-25 Completed [facility]ist 00:00:00 [facility] Pneumococcal 2019-11-25 Completed [facility] Polysaccharide 00:00:00 [facility] FLUZONE HIGH-DOSE PF 2019-11-25 Completed Meth odist 00:00:00 [facility] Pneumococcal 2019-11-25 Completed [facility] Polysaccharide 00:00:00 [facility] FLUZONE HIGH-DOSE PF 2019-11-25 Completed [facility]ist 00:00:00 [facility] Pneumococcal 2019-11-25 Completed [facility] Polysaccharide 00:00:00 [facility] Td, Unspecified 2018-01-20 Completed [facility] 00:00:00 [facility] Td, Unspecified 2018-01-20 Completed [facility] 00:00:00 [facility] Td, Unspecified 2018-01-20 Completed [facility] 00:00:00 [facility] Td, Unspecified 2018-01-20 Completed [facility] 00:00:00 Hospital FLUZONE HIGH-DOSE PF 2017-11-08 Completed [...] [facility] 00:00:00 Hospital Pneumococcal 2015-05-26 Completed [facility] Conjugate 13-Valent 00:00:00 [facility]pi [facility]olas Pneumococcal 2015-05-26 Completed [facility] Conjugate 13-Valent 00:00:00 [facility] Pneumococcal 2015-05-26 Completed [facility] Conjugate 13-Valent 00:00:00 [facility]pi [facility]olas Pneumococcal 2015-05-26 Completed [facility] Conjugate 13-Valent 00:00:00 [facility]pi [facility] Influenza Trivalent [...] Meth odist 00:00:00 Hospital Zoster 2014-02-03 Completed [facility] 00:00:00 [facility] Zoster 2014-02-03 Completed [facility] 00:00:00 [facility] Zoster 2014-02-03 Completed [facility] 00:00:00 [facility] Zoster 2014-02-03 Completed [facility] 00:00:00 Hospital Influenza Trivalent 2013-12-17 Completed Metho [...] Influenza Trivalent 2012-12-10 Completed [facility] dist 00:00:00 [facility] TD (ADULT), 5 2008-07-29 Completed [facility] TETANUS TOXOID, 00:00:00 Hospital PRESERVATIVE FREE, ABSORBED TD (ADULT), 5 2008-07-29 Completed [facility] TETANUS TOXOID, 00:00:00 Hospital PRESERVATIVE FREE, ABSORBED TD (ADULT), 5 2008-07-29 Completed [facility] TETANUS TOXOID, 00:00:00 Hospital PRESERVATIVE FREE, ABSORBED TD (ADULT), 5 2008-07-29 Completed [facility] TETANUS TOXOID, 00:00:00 Hospital PRESERVATIVE FREE, ABSORBED Pneumococcal 2001-03-06 Completed [facility] Polysaccharide 00:00:00 Hospital Pneumococcal 2001-03-06 Completed [facility] Polysaccharide 00:00:00 Hospital Pneumococcal 2001-03-06 Completed [facility] Polysaccharide 00:00:00 [facility] Pneumococcal 2001-03-06 Completed [facility] Polysaccharide 00:00:00 [facility] Influenza Trivalent Unknown Completed [facility] Influenza Trivalent Unknown Completed [facility] Pneumococcal Unknown Completed [facility] Conjugate 13-Valent Hospi nicolas Pneumococcal Unknown Completed [facility] Polysaccharide [facility] TD (ADULT), 5 LF Unknown [facility], Hospital PRESERVATIVE FREE, ABSORBED Zoster Unknown Completed [facility] Influenza Trivalent Unknown Completed [facility] FLUZONE HIGH-DOSE PF Unknown Completed [facility] FLUZONE HIGH-DOSE PF Unknown Completed [facility] Pneumococcal Unknown Completed [facility] Polysaccharide [facility] COVID19 Unknown Completed [facility] MRNA VACCINATION [facility] COVID19 Unknown Completed [facility] MRNA VACCINATION [facility] FLUZONE HIGH-DOSE PF Unknown Completed [facility] FLUZONE HIGH-DOSE PF Unknown Completed [facility] Td, Unspecified Unknown Completed [facility] COVID-19 Unknown Completed [facility] MRNA VACCINATION [facility] COVID-19 Unknown Com[facility] MRNA VACCINATION [facility] FLUZONE HIGH-DOSE PF Unknown Completed [facility] COVID-19 Unknown Com[facility] MRNA VACCINATION [facility] FLUZONE HIGH-DOSE PF Unknown Completed [facility] FLUZONE HIGH-DOSE PF Unknown Completed [facility] FLUZONE HIGH-DOSE PF Unknown Completed [facility] FLUZONE HIGH-DOSE PF Unknown Completed [facility] Tdap Unknown Completed [facility] Vital Signs Vital Name Observation Time Observation Value Comments Source Oxygen saturation in 2022-08-16 20:47:00 96 /min [facility] Arterial blood by [facility] Pulse oximetry Branch Systolic blood 2022-08-16 20:47:00 102 mm[Hg] Univer sity [facility] Diastolic blood 2022-08-16 20:47:00 49 mm[Hg] [facility] Heart rate 2022-08-16 20:47:00 61 /min [facility] Body temperature 2022-08-16 20:47:00 36.33 Constance [facility] Respiratory rate 2022-08-16 20:47:00 18 /min [facility] Body weight 2022-08-16 09:13:00 51.483 kg [facility] BMI 2022-08-16 09:13:00 21.45 kg/m2 [facility] Body height 2022-08-13 22:34:00 154.9 cm [facility] Systolic blood 2022-03-01 15:41:00 177 mm[Hg] [facility] pressure Diastolic blood 2022-03-01 15:41:00 75 mm[facility]Hg[facility] Heart rate 2022-03-01 15:41:00 53 /min [facility] Body temperature 2022-03-01 15:41:00 36.72 Constance [facility] Body height 2022-03-01 15:41:00 152.4 cm [facility] Body weight 2022-03-01 15:41:00 52.708 kg [facility] BMI 2022-03-01 15:41:00 22.69 kg/m2 [facility] Oxygen saturation in 2022-03-01 15:41:00 96 /min [facility] Arterial blood by Pulse oximetry Respiratory rate 2022-01-30 19:19:00 20 /min [facility] Systolic blood 2021-12-21 15:38:00 174 mm[Hg] [facility] pressure Diastolic blood 2021-12-21 15:38:00 66 mm[Hg] [facility] Heart rate 2021-12-21 14:42:00 60 /min [facility] Body temperature 2021-12-21 14:42:00 36.33 Constance [facility] Respiratory rate 2021-12-21 14:42:00 16 /min [facility] Body height 2021-12-21 14:42:00 152.4 cm [facility] Body weight 2021-12-21 14:42:00 52.164 kg [facility] BMI 2021-12-21 14:42:00 22.46 kg/m2 [facility] Oxygen saturation in 2021-12-21 14:42:00 98 /min [facility] Arterial blood by Pulse oximetry Body Temperature 2019-09-25 11:40:00 97.2 [degF] [facility] Rate 2019-09-25 11:40:00 63 /min [facility] Respiratory rate 2019-09-25 11:40:00 18 /min [facility] BP Systolic 2019-09-25 11:40:00 94 mm[Hg] [facility] [place] BP Diastolic 2019-09-25 11:40:00 43 mm[Hg] [facility] Weight 2019-09-25 06:07:00 122 [lb_av] [facility] BMI (Body Mass 2019-09-25 06:07:00 24.6 kg/m2 [facility] Health Index) Heart Rate 2019-09-25 03:06:00 87 /min [facility] Respiratory rate 2019-09-25 03:06:00 21 /min [facility] [place] BP Systolic 2019-09-25 03:06:00 160 mm[Hg] [facility] BP Diastolic 2019-09-25 03:06:00 93 mm[Hg] [facility] Procedures Procedure Date / Time Performing Clinician Source Performed COVID-19 (ID NOW RAPID 2022-08-16 15:16:00 Marissa Jackson [facility] TESTING) Medical Branch THYROID STIMULATING 2022-08-14 09:09:00 Diane Long [facility] HORMONE Medical Branch BASIC METABOLIC PANEL (NA, 2022-08-14 09:09:00 [facility] K, CL, CO2, GLUCOSE, BUN, Medica l Branch CREATININE, CA) CBC WITH DIFF 2022-08-14 09:09:[address] [facility] [address] ABDOMEN PELVIS W 2022-08-14 01:05:23 Nicolas Sims [facility] CONTRAST [facility] URINE CULTURE 2022-08-14 00:15:00 Butch [facility] FREE T4 2022-08-14 00:01:00 [facility] COMP. METABOLIC PANEL 2022-08-14 00:01:00 Nicolas Sims [facility] ([id number]) [facility] CT CERVICAL SPINE WO 2022-08-13 23:30:19 Nicolas Sims [facility] CONTRAST [facility] CT HEAD WO CONTRAST 2022-08-13 23:29:57 Nicolas Sims [facility] XR CHEST 1 VW 2022-08-13 23:28:52 Nicolas Sims [facility] BLOOD CULTURE SCREEN 2022-08-13 23:13:00 Nicolas Sims [facility] TROPONIN I 2022-08-13 23:13:00 Nicolas Sims [facility] SALICYLATE 2022-08-13 23:13:00 Nicolas Sims [facility] ETHANOL 2022-08-13 23:13:00 Nicolas Sims [facility] URINE DRUG (IMMUNOASSAY) - 2022-08-13 23:13:00 Nicolas Sims [facility] COMPREHENSIVE DRUG SCREEN [facility] CBC WITH DIFF 2022-08-13 23:13:00 Nicolas Sims [facility] URINALYSIS 2022-08-13 23:13:00 Nicolas Sims [facility] RAPID INFLUENZA A/B 2022-08-13 23:13:00 Nicolas Sims [facility] N-TERMINAL PRO-BNP 2022-08-13 23:13:00 Nicolas Sims [facility] COVID-19 (ID NOW RAPID 2022-08-13 23:13:00 Nicolas Sims [facility] TESTING) [facility] LAB ONLY COVID 2022-08-13 23:13:00 Nicolas Sims [facility] HB ECG ROUTINE & RHYTHM 2022-08-13 22:48:19 [facility] 2022-06-21 14:30:00 Adrianna Miranda [facility] ASPIR&/INJ MAJOR JT/BURSA W/O US OPERATION, KNEE, 2022-01-30 17:05:00 Adrianna Miranda H ospital ARTHROSCOPIC POC GLUCOSE 2022-01-30 16:15:00 Adrianna Miranda Ho spital [place] AN ELECTIVE 2022-01-30 15:04:00 Collin Farooq [facility] SUPRAGLOTTIC AIRWAY OPERATION, KNEE, 2022-01-30 14:59:00 Adrianna Miranda ospital ARTHROSCOPIC POC PANEL 2022-01-30 14:11:00 Adrianna Miranda spital MAMMO BREAST SCREEN 2021-12-28 14:46:00 [facility] TOMOSYNTHESIS BILATERAL [place] CBC WITH PLATELET AND 2021-12-22 12:45:00 [facility] DIFFERENTIAL [place] THYROID STIMULATING 2021-12-22 12:45:00 [facility] HORMONE [place] COMPREHENSIVE METABOLIC 2021-12-22 12:45:00 [facility] PANEL [place] URINALYSIS, AUTOMATED WITH 2021-12-22 12:45:00 [facility] MICROSCOPY [place] LIPID PANEL 2021-12-22 12:45:00 [facility] [place] HEMOGLOBIN A1C 2021-12-22 12:45:00 [facility] [place] VITAMIN D 25 HYDROXY LEVEL 2021-12-22 12:45:00 [facility] [place] CBC WITH PLATELET AND 2021-12-22 12:45:00 [facility] DIFFERENTIAL [place] ARTHROCENTESIS 2021-12-21 13:50:00 Adrianna Miranda [facility] ASPIR&/INJ MAJOR JT/BURSA W/O US MRI KNEE WO CONTRAST LEFT 2021-12-14 14:15:00 Adrianna Miranda [facility] XR KNEE 1 OR 2 VW 2021-09-28 19:41:49 Adrianna Miranda [facility] BILATERAL [place] ARTHROCENTESIS 2021-09-28 19:30:00 [facility] ASPIR&/INJ MAJOR JT/BURSA W/O US THYROID STIMULATING 2021-03-31 15:55:00 [facility] HORMONE [place] HSV 1 AND 2 SPECIFIC AB 2021-03-31 15:55:00 [facility] IGG [place] Transthoracic two 2019-09-25 00:00:00 BILL arora dimensional echocardiography with color Doppler imaging and contrast Myocrd Strain Img Speckl 2019-09-25 00:00:00 [facility] of chest, single 2019-09-24 00:00:00 [facility] view ECG (electrocardiogram) 2019-09-24 00:00:00 [facility] 12 lead ECG interpretation 2019-09-24 00:00:00 [facility] [id number] 2019-08-06 00:00:00 [facility] [id number] 2019-08-06 00:00:00 [facility] [id number] 2019-08-06 00:00:00 [facility] [id number] 2019-08-06 00:00:00 [facility] [id number] 2019-08-06 00:00:00 [facility] Plan of Care Planned Activity Planned Date Details Comments Source Future Scheduled Test 2023-01-19 SHINGLES VACCINES (2 [facility] 14:39:55 of 3) [code = SHINGLES VACCINES (2 of 3)] Future Scheduled Test 2023-01-19 COVID-19 VACCINE ([address] [place] [address] 14:39:55 season) [code = COVID-19 VACCINE ( - season)] Future Scheduled Test 2023-01-19 INFLUENZA VACCINE [facility] 14:39:55 (#1) [code = INFLUENZA VACCINE (#1)] Future Scheduled Test 2022-09-14 SHINGLES VACCINES (2 [facility] 11:02:15 of 3) [code = SHINGLES VACCINES (2 of 3)] Future Scheduled Test 2022-09-14 COVID-19 VACCINE (6 [facility] 11:02:15 Moderna series) [code = COVID-19 VACCINE (6 - Moderna series)] Future Scheduled Test 2022-09-14 INFLUENZA VACCINE [facility] 11:02:15 [code = INFLUENZA VACCINE] Future Scheduled Test 2022-07-07 SHINGLES VACCINES (1 [facility] 12:32:59 of 2) [code = SHINGLES VACCINES (1 of 2)] Future Scheduled Test 2022-07-07 INFLUENZA VACCINE [facility] 12:32:59 [code = INFLUENZA VACCINE] Future Scheduled Test 2022-04-27 SHINGLES VACCINES (1 [facility] 10:59:44 of 2) [code = SHINGLES VACCINES (1 of 2)] Future Scheduled Test 2022-01-19 HEPATITIS B VACCINES [facility] 18:11:59 (1 of 3 - 3-dose series) [code = HEPATITIS B VACCINES (1 of 3 - 3-dose series)] Future Scheduled Test 2022-01-19 SHINGLES VACCINES (1 [facility] 18:11:59 of 2) [code = SHINGLES VACCINES (1 of 2)] Future Scheduled Test 2022-01-19 COVID-19 VACCINE (4 - [facility] 18:11:59 Booster for Moderna series) [code = COVID-19 VACCINE (4 - Booster for Moderna series)] Future Scheduled Test Serum or plasma [facility] cardiac troponin [facility] [place] LIVE measurement HCIS (mass/volume) [code = 18216-2] Instructions Atrial Fibrillation [facility] ([place]) [place] LIVE HCIS Instructions Apixaban [facility] LIVE HCIS Encounters Start End Encounter Admission Attending Care Care Encounter Source Date/Time Date/Time Type Type Clinicians Facility Department ID 2019-08-06 Inpatient KARLA [facility] [id number] [facility] 08:00:[address] 2023-01-08 2023-01-08 Telephone Debora Marques [id number] [facility] 00:00:00 00:00:[id number] [id number] Hospit [id number] l .8 2023-01-08 2023-01-08 Telephone Adrianna Miranda [id number] 2 [id number] Methodi 00:00:00 00:00:[address] 3.430.2.7 Hospit a .3.314026 l .8 2023-01-05 2023-01-05 Telephone Adrianna Miranda 1.2.840.1 [id number] 2 [id number] Methodi 00:00:00 00:00:[address] 3.430.2.7 Hospit a .3.277519 l .8 2022-11-21 2022-11-21 Telephone Allen, 1.2.840.1 [id number] 347 [id number] Methodi 00:00:00 00:00:[address] [facility] 3.430.2.7 Hospi ta .3.486900 l .8 2022-09-29 2022-09-29 Patient Favio, 1.2.840.1 [id number] 2100 979388 Methodi 00:00:00 00:00:00 Outreach Chelly 60009.1.[address] 3.430.2.7 Hospit a .3.009296 l .8 2022-08-17 2022-08-17 Transition Hamlin GILRosa 1.2.840.114 103 [id number] Univers 00:00:00 00:00:00 of Sugar [place] 350.1.13.10 it y [facility] 4[place] [phone] [facility] [address] 2022-08-13 2022-08-16 Inpatient X ETHAN IADEEP [facility] [id number] Univers 17:21:00 16:30:00 DIANE khanna [facility] 2022-08-13 2022-08-16 [facility] Nicolas Sims [facility] 1.2.840 .114 [id number] Univers 17:21:00 16:30:00 Encounter Diane Long 350.1.13.10 ity Zora Landry 4.2.7.2.686 [facility] [phone] [facility] [address] 2022-08-05 2022-08-05 Refill Galen, 1.2.840.1 [id number] 55345 Methodi 00:00:00 00:00:[address] [place] 3.430.2.7 Hospi ta .3.336644 l .8 2022-08-05 2022-08-05 Refill Galen, 1.2.840.1 [id number] 94946 48648 Methodi 00:00:00 00:00:[address] [place] 3.430.2.7 Hospi ta .3.520992 l .8 2022-07-20 2022-07-20 Telephone Galen, 1.2.840.1 [id number] 811 [id number] Methodi 00:00:00 00:00:[address] [place] 3.430.2.7 Hospi ta .3.085300 l .8 2022-07-20 2022-07-20 Telephone Galen, 1.2.840.1 [id number] 937 [id number] Methodi 00:00:00 00:00:[address] [place] 3.430.2.7 Hospi ta .3.885148 l .8 2022-07-17 2022-07-17 Patient Favio, 1.2.840.1 [id number] 2100 [id number] Methodi 00:00:00 00:00:00 Outreach Chelly 55250.1.[address] 3.430.2.7 Hospit a .3.884069 l .8 2022-07-17 2022-07-17 Patient Favio, 1.2.840.1 [id number] 2099 835677 Methodi 00:00:00 00:00:00 Outreach Chelly 97027.1.[address] 3.430.2.7 Hospit a .3.874213 l .8 2022-07-07 2022-07-07 Patient Eric, 1.2.840.1 [id number] 606415 1112 Methodi 00:00:00 00:00:00 Outreach Emily 10068.1.1 006 s t 3.430.2.7 Hospit a .3.898107 l .8 2022-07-07 2022-07-07 Patient Reyes, 1.2.840.1 [id number] 180034 3999 Methodi 00:00:00 00:00:00 Outreach Emily 13458.1.1 006 s t 3.430.2.7 Hospit a .3.532925 l .8 2022-07-06 2022-07-06 Prep for Tony 1.2.840.1 [id number] 2 [id number] Methodi 00:00:00 00:00:00 Surgery an, Marisa 32523.1.[address] [place]y 3.430.2.7 Hospit a .3.530161 l .8 2022-07-06 2022-07-06 Prep for Tony 1.2.840.1 [id number] 2 [id number] Methodi 00:00:00 00:00:00 Surgery an, Marisa 47036.1.[address] [place]y 3.430.2.7 Hospit a .3.931892 l .8 2022-06-22 2022-06-22 Patient Reyes, 1.2.840.1 [id number] 629297 6824 Methodi 00:00:00 00:00:00 Outreach Emily 95796.1.1 639 s t 3.430.2.7 Hospit a .3.120039 l .8 2022-06-22 2022-06-22 Patient Reyes, 1.2.840.1 [id number] 997040 1283 Methodi 00:00:00 00:00:00 Outreach Emily 89186.1.1 639 s t 3.430.2.7 Hospit a .3.687057 l .8 2022-06-21 2022-06-21 Office Adrianna Miranda 1.2.840.1 [id number] 316 [id number] Methodi 09:30:00 11:28:[address] 45990.1.[address] 3.430.2.7 Hospit a .3.596551 l .8 2022-06-21 2022-06-21 Office Adrianna Miranda 1.2.840.1 [id number] 598 [id number] Methodi 09:30:00 11:28:[address]004[address]1.[address] 3.430.2.7 Hospit a .3.157306 l .8 2022-06-21 2022-06-21 Travel 1.2.840.1 1.2.766.908 3482 781285 Methodi 00:00:00 00:00:[address] 3.430.2.7 0.2.7.3.698 Ho spita .3.685646 084.8 l .8 2022-06-21 2022-06-21 Travel 1.2.840.1 1.2.225.995 7006 078438 Methodi 00:00:00 00:00:[address] 3.430.2.7 0.2.7.3.698 Ho spita .3.438555 084.8 l .8 2022-06-19 2022-06-19 Travel 1.2.840.1 1.2.345.937 1007 655719 Methodi 00:00:00 00:00:[address] 3.430.2.7 0.2.7.3.698 Ho spita .3.631760 084.8 l .8 2022-06-19 2022-06-19 Travel 1.2.840.1 1.2.622.070 7942 300150 Methodi 00:00:00 00:00:[address] 3.430.2.7 0.2.7.3.698 Ho spita .3.574931 084.8 l .8 2022-06-12 2022-06-12 Refill Allen, 1.2.840.1 [id number] 64251 Methodi 00:00:00 00:00:[address] [place] 3.430.2.7 Hospi ta .3.627284 l .8 2022-06-12 2022-06-12 Refill Allen, 1.2.840.1 [id number] 47164 Methodi 00:00:00 00:00:[address] [place] 3.430.2.7 Hospi ta .3.383256 l .8 2022-06-08 2022-06-08 Refill Galen, 1.2.840.1 [id number] 69347 Methodi 00:00:00 00:00:[address] [place] 3.430.2.7 Hospi ta .3.553615 l .8 2022-06-08 2022-06-08 Patient Reyes, 1.2.840.1 [id number] 806862 6225 Methodi 00:00:00 00:00:00 Outreach Emily 01145.1.1 763 s t 3.430.2.7 Hospit a .3.829168 l .8 2022-06-08 2022-06-08 Telephone Galen, 1.2.840.1 [id number] 741 1307975 Methodi 00:00:00 00:00:[address] [place] 3.430.2.7 Hospi ta .3.529506 l .8 2022-06-08 2022-06-08 Refill Galen, 1.2.840.1 [id number] 63489 Methodi 00:00:00 00:00:[address] [place] 3.430.2.7 Hospi ta .3.829684 l .8 2022-06-08 2022-06-08 Refill Allen, 1.2.840.1 [id number] 12235 Methodi 00:00:00 00:00:[address] [place] 3.430.2.7 Hospi ta .3.228643 l .8 2022-06-08 2022-06-08 Patient Reyes, 1.2.840.1 [id number] 618326 3984 Methodi 00:00:00 00:00:00 Outreach Emily 42568.1.1 763 s t 3.430.2.7 Hospit a .3.972343 l .8 2022-06-08 2022-06-08 Telephone Galen, 1.2.840.1 [id number] 753 [id number] Methodi 00:00:00 00:00:[address] [place] 3.430.2.7 Hospi ta .3.346796 l .8 2022-06-08 2022-06-08 Refill Allen, 1.2.840.1 [id number] 60612 00984 Methodi 00:00:00 00:00:[address] [place] 3.430.2.7 Hospi ta .3.982118 l .8 2022-06-03 2022-06-03 Refill Galen, 1.2.840.1 533415409 84966 48660 Methodi 00:00:00 00:00:[address] [place] 3.430.2.7 Hospi ta .3.952139 l .8 2022-06-03 2022-06-03 Refill Allen, 1.2.840.1 [id number] 14508 Methodi 00:00:00 00:00:[address] [place] 3.430.2.7 Hospi ta .3.135474 l .8 2022-05-25 2022-05-25 Patient Reyes, 1.2.840.1 [id number] 733378 0978 Methodi 00:00:00 00:00:00 Outreach Emily 39870.1.1 043 s t 3.430.2.7 Hospit a .3.259126 l .8 2022-05-25 2022-05-25 Patient Reyes, 1.2.840.1 [id number] 674870 8764 Methodi 00:00:00 00:00:00 Outreach Emily 82999.1.1 043 s t 3.430.2.7 Hospit a .3.012215 l .8 2022-05-11 2022-05-11 Patient Reyes, 1.2.840.1 446504768 866592 7566 Methodi 00:00:00 00:00:00 Outreach Emily 99780.1.1 088 s t 3.430.2.7 Hospit a .3.125212 l .8 2022-05-11 2022-05-11 Patient Reyes, 1.2.840.1 093321372 888201 7498 Methodi 00:00:00 00:00:00 Outreach Emily 90149.1.1 088 s t 3.430.2.7 Hospit a .3.559428 l .8 2022-05-09 2022-05-09 Telephone Galen, 1.2.840.1 [id number] 014 1230141 Methodi 00:00:00 00:00:[address] [place] 3.430.2.7 Hospi ta .3.230381 l .8 2022-05-09 2022-05-09 Telephone Galen, 1.2.840.1 407945590 726 6838219 Methodi 00:00:00 00:00:[address] [place] 3.430.2.7 Hospi ta .3.702064 l .8 2022-05-09 2022-05-09 Telephone Allen, 1.2.840.1 [id number] 097 [id number] Methodi 00:00:00 00:00:[address] [place] 3.430.2.7 Hospi ta .3.391212 l .8 2022-05-09 2022-05-09 Telephone Allen, 1.2.840.1 [id number] 570 3488572 Methodi 00:00:00 00:00:[address] [place] 3.430.2.7 Hospi ta .3.280092 l .8 2022-05-07 2022-05-07 Refill Galen, 1.2.840.1 458669613 04094 Methodi 00:00:00 00:00:[address] [place] 3.430.2.7 Hospi ta .3.312952 l .8 2022-05-07 2022-05-07 Refill Allen, 1.2.840.1 [id number] Methodi 00:00:00 00:00:[address] [place] 3.430.2.7 Hospi ta .3.804122 l .8 2022-04-27 2022-04-27 Patient Reyes, 1.2.840.1 035065520 722460 2951 Methodi 00:00:00 00:00:00 Outreach Emily 73302.1.1 906 s t 3.430.2.7 Hospit a .3.374288 l .8 2022-04-27 2022-04-27 Patient Reyes, 1.2.840.1 774122795 577973 6563 Methodi 00:00:00 00:00:00 Outreach Emily 84527.1.1 906 s t 3.430.2.7 Hospit a .3.042059 l .8 2022-04-06 2022-04-06 Patient Reyes, 1.2.840.1 [id number] 764204 5158 Methodi 00:00:00 00:00:00 Outreach Emily 89864.1.1 988 s t 3.430.2.7 Hospit a .3.601979 l .8 2022-04-06 2022-04-06 Patient Reyes, 1.2.840.1 632156925 670603 4872 Methodi 00:00:00 00:00:00 Outreach Emily 83840.1.1 988 s t 3.430.2.7 Hospit a .3.150469 l .8 2022-03-16 2022-03-16 Orders Sales, Elidia 1.2.840.1 [id number] 519 [id number] Methodi 00:00:00 00:00:[address] 3.430.2.7 Hospit a .3.174093 l .8 2022-03-16 2022-03-16 Telephone Galen, 1.2.840.1 205022556 533 0600645 Methodi 00:00:00 00:00:[address] [place] 3.430.2.7 Hospi ta .3.125485 l .8 2022-03-16 2022-03-16 Patient Reyes, 1.2.840.1 [id number] 397340 2033 Methodi 00:00:00 00:00:00 Outreach Emily 74819.1.1 189 s t 3.430.2.7 Hospit a .3.086357 l .8 2022-03-16 2022-03-16 Orders Aries, Elidia 1.2.840.1 [id number] 452 0188331 Methodi 00:00:00 00:00:[address] 3.430.2.7 Hospit a .3.532183 l .8 2022-03-16 2022-03-16 Telephone Galen, 1.2.840.1 [id number] 819 1534122 Methodi 00:00:00 00:00:[address] [place] 3.430.2.7 Hospi ta .3.867232 l .8 2022-03-16 2022-03-16 Patient Reyes, 1.2.840.1 [id number] 023698 6961 Methodi 00:00:00 00:00:00 Outreach Emily 02634.1.1 189 s t 3.430.2.7 Hospit a .3.855557 l .8 2022-03-06 2022-03-06 Telephone Galen, 1.2.840.1 [id number] 436 3875999 Methodi 00:00:00 00:00:[address] [facility] 3.430.2.7 Hospi ta .3.876499 l .8 2022-03-06 2022-03-06 Telephone Galen, 1.2.840.1 [id number] 867 1072631 Methodi 00:00:00 00:00:[address] [facility] 3.430.2.7 Hospi ta .3.089000 l .8 2022 2022 Patient Reyes, 1.2.840.1 755392655 549184 0550 Methodi 00:00:00 00:00:00 Outreach Emily 36081.1.1 904 s t 3.430.2.7 Hospit a .3.772557 l .8 2022 2022 Patient Reyes, 1.2.840.1 [id number] 492481 8668 Methodi 00:00:00 00:00:00 Outreach Emily 50735.1.1 904 s t 3.430.2.7 Hospit a .3.822983 l .8 2022-03-01 2022-03-01 Office Adrianna Miranda 1.2.840.1 [id number] 386 4017031 Methodi 10:00:00 14:41:30 [place] B. 12888.1.[address] 3.430.2.7 Hospit a .3.273702 l .8 2022-03-01 2022-03-01 Office Adrianna Miranda 1.2.840.1 [id number] 964 9957529 Methodi 10:00:00 14:41:30 Visit B. 13927.1.[address] 3.430.2.7 Hospit a .3.501966 l .8 2022-03-01 2022-03-01 Office Allen, 1.2.840.1 [id number] 32138 55779 Methodi 10:00:00 10:05:57 Visit Poli 48433.1.[address] [place] 3.430.2.7 Hospi ta .3.914483 l .8 2022-03-01 2022-03-01 Office Allen, 1.2.840.1 510382729 61229 Methodi 10:00:00 10:05:57 Visit Poli 80076.1.[address] [place] 3.430.2.7 Hospi ta .3.165476 l .8 2022-03-01 2022-03-01 Travel 1.2.840.1 1.2.684.188 4183 706886 Methodi 00:00:00 00:00:[address] 3.430.2.7 0.2.7.3.698 Ho spita .3.277110 084.8 l .8 2022-03-01 2022-03-01 Travel 1.2.840.1 1.2.020.151 2132 982579 Methodi 00:00:00 00:00:[address] 3.430.2.7 0.2.7.3.698 Ho spita .3.885357 084.8 l .8 2022-02-27 2022-02-27 Telephone Allen, 1.2.840.1 [id number] 799 1296816 Methodi 00:00:00 00:00:[address] [place] 3.430.2.7 Hospi ta .3.234570 l .8 2022-02-27 2022-02-27 Telephone Galen, 1.2.840.1 [id number] 329 6386810 Methodi 00:00:00 00:00:[address] [facility] 3.430.2.7 Hospi ta .3.871328 l .8 2022-02-15 2022-02-15 Patient Reyes, 1.2.840.1 [id number] 666789 9986 Methodi 00:00:00 00:00:00 Outreach Emily 03278.1.1 809 s t 3.430.2.7 Hospit a .3.154666 l .8 2022-02-15 2022-02-15 Patient Reyes, 1.2.840.1 370151549 456730 5855 Methodi 00:00:00 00:00:00 Outreach Emily 62668.1.1 809 s t 3.430.2.7 Hospit a .3.762284 l .8 2022-02-13 2022-02-13 Telephone Theodore, 1.2.840.1 [id number] [id number] Methodi 00:00:00 00:00:[address] 3.430.2.7 Hospit a .3.232158 l .8 2022-02-13 2022-02-13 Telephone Theodore, 1.2.840.1 [id number] 21 14521499 Methodi 00:00:00 00:00:[address] 3.430.2.7 Hospit a .3.724815 l .8 2022-02-03 2022-02-03 Office Adrianna Miranda 1.2.840.1 [id number] 391 [id number] Methodi 09:20:00 09:20:[address] B[address]4624.1.[address] 3.430.2.7 Hospit a .3.343751 l .8 2022-02-03 2022-02-03 Office Adrianna Miranda 1.2.840.1 [id number] 581 2683877 Methodi 09:20:00 09:20:00 [address] 36810.1.[address] 3.430.2.7 Hospit a .3.717701 l .8 2022-02-01 2022-02-01 Patient Reyes, 1.2.840.1 [id number] 071211 9882 Methodi 00:00:00 00:00:00 Outreach Emily 53654.1.1 609 s t 3.430.2.7 Hospit a .3.640708 l .8 2022-02-01 2022-02-01 Patient Reyes, 1.2.840.1 [id number] 664562 2392 Methodi 00:00:00 00:00:00 Outreach Emily 55328.1.1 609 s t 3.430.2.7 Hospit a .3.496456 l .8 2022-01-31 2022-01-31 Refill Galen, 1.2.840.1 046400831 28758 Methodi 00:00:00 00:00:[address] [facility] 3.430.2.7 Hospi ta .3.097700 l .8 2022-01-31 2022-01-31 Refill Galen, 1.2.840.1 [id number] 89289 Methodi 00:00:00 00:00:[address] [facility] 3.430.2.7 Hospi ta .3.842454 l .8 2022-01-30 2022-01-30 [facility] Adrianna Miranda 1.2.840.1 [id number] 21 [id number] Methodi 07:38:00 13:41:00 Encounter B[address] 14436.1.[address] 3.430.2.7 Hospit a .3.298358 l .8 2022-01-30 2022-01-30 [facility] Adrianna Miranda 1.2.840.1 [id number] Methodi 07:38:00 13:41:00 Encounter B[address] 19558.1.[address] 3.430.2.7 Hospit a .3.382278 l .8 2022-01-30 2022-01-30 [facility] Adrianna Miranda 1.2.840.1 [id number] 850 [id number] Methodi 09:00:00 10:40:[address] 3.430.2.7 Hospit a .3.021932 l .8 2022-01-30 2022-01-30 [facility] Adrianna Miranda 1.2.840.1 [id number] 009 0692658 Methodi 09:00:00 10:40:[address] 3.430.2.7 Hospit a .3.707582 l .8 2022-01-30 2022-01-30 Anesthesia Brann, 1.2.840.1 [id number] 391 3533748 Methodi 08:59:00 10:18:00 Event Abdullahi 97033.1.[address] Robi 3.430.2.7 Hospit a .3.143968 l .8 2022-01-30 2022-01-30 Anesthesia Brann, 1.2.840.1 [id number] 855 9071954 Methodi 08:59:00 10:18:00 Event Abdullahi 29249.1.[address] Robi 3.430.2.7 Hospit a .3.318057 l .8 2022-01-30 2022-01-30 Travel 1.2.840.1 1.2.924.204 4169 870986 Methodi 00:00:00 00:00:[address] 3.430.2.7 0.2.7.3.698 Ho spita .3.329116 084.8 l .8 2022-01-30 2022-01-30 Travel 1.2.840.1 1.2.245.355 9039 630703 Methodi 00:00:00 00:00:[address] 3.430.2.7 0.2.7.3.698 Ho spita .3.923855 084.8 l .8 2022-01-27 2022-01-27 Patient Eric, 1.2.840.1 [id number] 820340 1844 Methodi 00:00:00 00:00:00 Outreach Emily 83159.1.1 659 s t 3.430.2.7 Hospit a .3.509584 l .8 2022-01-27 2022-01-27 Patient Eric, 1.2.840.1 [id number] [id number] 1541 Methodi 00:00:00 00:00:00 Outreach Emily 04393.1.1 659 s t 3.430.2.7 Hospit a .3.173478 l .8 2022-01-25 2022-01-25 Patient Arnold, 1.2.840.1 [id number] 14642 Methodi 00:00:00 00:00:00 Outreach Kathrin 50589.1.[address] 3.430.2.7 Hospit a .3.226100 l .8 2022-01-25 2022-01-25 Patient Arnold, 1.2.840.1 [id number] 71367 Methodi 00:00:00 00:00:00 Outreach Kathrin 97607.1.[address] 3.430.2.7 Hospit a .3.599627 l .8 2022-01-16 2022-01-16 Travel 1.2.840.1 1.2.375.611 5475 973168 Methodi 00:00:00 00:00:[address] 3.430.2.7 0.2.7.3.698 Ho spita .3.593564 084.8 l .8 2022-01-13 2022-01-13 Refill Galen, 1.2.840.1 539020231 75023 22341 Methodi 00:00:00 00:00:[address] Lmyan 3.430.2.7 Hospi ta .3.646890 l .8 2022-01-10 2022-01-10 Telephone Theodore, 1.2.840.1 [id number] 21 [id number] Methodi 00:00:00 00:00:[address] 3.430.2.7 Hospit a .3.446780 l .8 2022-01-10 2022-01-10 Orders Theodore, 1.2.840.1 [id number] 2099 629988 Methodi 00:00:00 00:00:00 Only Maryanne 77875.1.[address] 3.430.2.7 Hospit a .3.848935 l .8 2022-01-10 2022-01-10 Prep for Theodore, 1.2.840.1 [id number] 247 3507675 Methodi 00:00:00 00:00:00 Surgery Maryanne 91922.1.[address] 3.430.2.7 Hospit a .3.136381 l .8 2022-01-09 2022-01-09 Telephone Theodore, 1.2.840.1 [id number] 21 [id number] Methodi 00:00:00 00:00:[address] 3.430.2.7 Hospit a .3.239444 l .8 2021-12-28 2021-12-28 Outpatient GALEN [facility] 158785 1664 [place] 00:00:00 00:00:[address] POLI [address] 2021-12-28 2021-12-28 Travel 1.2.840.1 1.2.518.831 1995 079007 Methodi 00:00:00 00:00:[address] 3.430.2.7 0.2.7.3.698 Ho spita .3.872600 084.8 l .8 2021-12-23 2021-12-23 Refill Allen, 1.2.840.1 [id number] 73718 Methodi 00:00:00 00:00:[address] [facility] 3.430.2.7 Hospi ta .3.227017 l .8 2021-12-23 2021-12-23 Orders Allen, 1.2.840.1 [id number] 21001 96763 Methodi 00:00:00 00:00:00 Only Poli 22102.1.[address] [facility] 3.430.2.7 Hospi ta .3.613692 l .8 2021-12-21 2021-12-21 Office Adrianna Miranda 1.2.840.1 [id number] 242 [id number] Methodi 08:50:00 11:59:46 Visit B. [address]3717.1.[address] 3.430.2.7 Hospit a .3.672839 l .8 2021-12-21 2021-12-21 Office Galen, 1.2.840.1 [id number] 57929 Methodi 10:00:00 10:41:23 Visit Poli 17654.1.[address] [place] 3.430.2.7 Hospi ta .3.269826 l .8 2021-12-21 2021-12-21 Travel 1.2.840.1 1.2.343.615 6204 913925 Methodi 00:00:00 00:00:[address] 3.430.2.7 0.2.7.3.698 Ho spita .3.715212 084.8 l .8 2021-12-17 2021-12-17 Refill Allen, 1.2.840.1 [id number] 39757 Methodi 00:00:00 00:00:[address] [place] 3.430.2.7 Hospi ta .3.652835 l .8 2021-12-16 2021-12-16 Telephone Theodore 1.2.840.1 [id number] 21 [id number] Methodi 00:00:00 00:00:[address] 3.430.2.7 Hospit a .3.946537 l .8 2021-12-14 2021-12-14 Outpatient ADRIANNA MIRANDA [facility] 2100 237438 [place] 00:00:00 00:00:[address] 2021-12-07 2021-12-07 Office Adrianna Miranda 1.2.840.1 [id number] 398 [id number] [facility] 10:20:00 11:37:[address]50.1.[address] 3.430.2.7 Hospit a .3.457754 l .8 2021-12-07 2021-12-07 Travel 1.2.840.1 1.2.429.212 4729 [id number] [facility] 00:00:00 00:00:[address] 3.430.2.7 0.2.7.3.698 Ho spita .3.826802 084.8 l .8 2021-11-29 2021-11-29 Travel 1.2.840.1 1.2.528.601 0138 090772 [facility] 00:00:00 00:00:[address] 3.430.2.7 0.2.7.3.698 Ho spita .3.119374 084.8 l .8 2021-11-16 2021-11-16 Refill Galen, 1.2.840.1 [id number] 44260 [facility] 00:00:00 00:00:[address] [place] 3.430.2.7 Hospi ta .3.638295 l .8 2021-10-26 2021-10-26 Telephone Galen, 1.2.840.1 [id number] 550 [id number] [facility] 00:00:00 00:00:[address] [place] 3.430.2.7 Hospi ta .3.227728 l .8 2021-10-24 2021-10-24 Telephone Galen, 1.2.840.1 [id number] 522 [id number] [facility] 00:00:00 00:00:[address] [place] 3.430.2.7 Hospi ta .3.312183 l .8 2021-10-21 2021-10-21 Telephone Allen, 1.2.840.1 [id number] 013 [id number] [facility]i 00:00:00 00:00:[address] [place] 3.430.2.7 Hospi ta .3.428432 l .8 2021-10-20 2021-10-20 Telephone Allen, 1.2.840.1 [id number] 592 [id number] [facility] 00:00:00 00:00:[address] [place] 3.430.2.7 Hospi ta .3.362145 l .8 2021-10-11 2021-10-11 Telephone Galen, 1.2.840.1 [id number] 090 [id number] [facility] 00:00:00 00:00:[address] [place] 3.430.2.7 Hospi ta .3.236426 l .8 2021-10-06 2021-10-06 Office Allen, 1.2.840.1 [id number] 66814 85639 [facility] 15:15:00 15:51:36 Visit Poli 69663.1.[address] [place] 3.430.2.7 Hospi ta .3.668894 l .8 2021-10-06 2021-10-06 Travel 1.2.840.1 1.2.499.240 4332 367100 [facility] 00:00:00 00:00:[address] 3.430.2.7 0.2.7.3.698 Ho spita .3.215783 084.8 l .8 2021-10-04 2021-10-04 Telephone Galen, 1.2.840.1 [id number] 759 [id number] Methodi 00:00:00 00:00:[address] [place] 3.430.2.7 Hospi ta .3.540372 l .8 2021-10-03 2021-10-03 Telephone Jose, 1.2.840.1 [id number] 122 [id number] [facility] 00:00:00 00:00:[address] 3.430.2.7 Hospit a .3.473348 l .8 2021-09-28 2021-09-28 Office Adrianna Miranda 1.2.840.1 [id number] 038 [id number] [facility] 14:30:00 16:45:56 [address]4793.1.[address] 3.430.2.7 Hospit a .3.839766 l .8 2021-09-28 2021-09-28 Travel 1.2.840.1 1.2.207.877 0347 489877 [facility] 00:00:00 00:00:[address] 3.430.2.7 0.2.7.3.698 Ho spita .3.200355 084.8 l .8 2021-09-28 2021-09-28 Outpatient ADRIANNA MIRANDA [facility] 2100 [id number] [place] 00:00:00 00:00:[address] 2021-09-19 2021-09-19 Travel 1.2.840.1 1.2.341.550 8941 133631 Methodi 00:00:00 00:00:[address] 3.430.2.7 0.2.7.3.698 Ho spita .3.643017 084.8 l .8 2021-09-12 2021-09-12 Travel 1.2.840.1 1.2.220.626 8501 456755 [facility] 00:00:00 00:00:[address] 3.430.2.7 0.2.7.3.698 Ho spita .3.264563 084.8 l .8 2021-08-15 2021-08-15 Telephone Allen, 1.2.840.1 [id number] 273 [id number] [facility] 00:00:00 00:00:[address] [place] 3.430.2.7 Hospi ta .3.008723 l .8 2021-07-04 2021-07-04 Telephone Galen, 1.2.840.1 [id number] 708 [id number] Methodi 00:00:00 00:00:[address] [place] 3.430.2.7 Hospi ta .3.059871 l .8 2021-06-27 2021-06-27 Telephone Galen, 1.2.840.1 [id number] 883 [id number] [facility]i 00:00:00 00:00:[address] [place] 3.430.2.7 Hospi ta .3.918910 l .8 2021-06-21 2021-06-21 Telephone Allen, 1.2.840.1 [id number] 717 [id number] [facility]i 00:00:00 00:00:[address] [place] 3.430.2.7 Hospi ta .3.674996 l .8 2021-06-19 2021-06-19 Refill Allen, 1.2.840.1 [id number] 60 [facility] 00:00:00 00:00:[address] [place] 3.430.2.7 Hospi ta .3.924090 l .8 2021-05-31 2021-05-31 Telephone Allen, 1.2.840.1 [id number] 599 [id number] [facility] 00:00:00 00:00:[address] [place] 3.430.2.7 Hospi ta .3.718997 l .8 2021-05-30 2021-05-30 Telephone Galen, 1.2.840.1 [id number] 222 [id number] [facility] 00:00:00 00:00:[address] [place] 3.430.2.7 Hospi ta .3.527638 l .8 2021-04-22 2021-04-22 Telephone Galen, 1.2.840.1 [id number] 243 [id number] [facility]i 00:00:00 00:00:[address] [place] 3.430.2.7 Hospi ta .3.688601 l .8 2021-04-15 2021-04-15 Refill Allen, 1.2.840.1 [id number] 86230 [facility] 00:00:00 00:00:[address] [place] 3.430.2.7 Hospi ta .3.899793 l .8 2021-04-12 2021-04-12 Telephone Galen, 1.2.840.1 [id number] 132 [id number] [facility]i 00:00:00 00:00:[address] [place] 3.430.2.7 Hospi ta .3.035108 l .8 2021-04-04 2021-04-04 Orders Galen, 1.2.840.1 [id number] Methodi 00:00:00 00:00:00 Only Poli 44932.1.[address] [place] 3.430.2.7 Hospi ta .3.155708 l .8 2021-04-04 2021-04-04 Orders Galen, 1.2.840.1 [id number] 89862 [facility]i 00:00:00 00:00:00 Only Poli 05984.1.[address] [place] 3.430.2.7 Hospi ta .3.930185 l .8 2021-03-31 2021-03-31 Lab Allen, 1.2.840.1 [id number] 11389 [facility]i 10:00:00 10:05:[address] [place] 3.430.2.7 Hospi ta .3.769530 l .8 2021-03-31 2021-03-31 Office Allen, 1.2.840.1 [id number] Methodi 09:15:00 09:51:04 Visit Poli 61381.1.[address] [place] 3.430.2.7 Hospi ta .3.606505 l .8 2021-03-31 2021-03-31 Travel 1.2.840.1 1.2.898.991 5592 655649 [facility] 00:00:00 00:00:[address] 3.430.2.7 0.2.7.3.698 Ho spita .3.835806 084.8 l .8 2021-03-30 2021-03-30 Telephone Allen, 1.2.840.1 [id number] 457 [id number] [facility] 00:00:00 00:00:[address] [place] 3.430.2.7 Hospi ta .3.016018 l .8 2021-03-29 2021-03-29 Travel 1.2.840.1 1.2.142.256 7215 425631 [facility] 00:00:00 00:00:[address] 3.430.2.7 0.2.7.3.698 Ho spita .3.940626 084.8 l .8 2021 2021 Refill Galen, 1.2.840.1 [id number] 41975 [facility]i 00:00:00 00:00:[address] [place] 3.430.2.7 Hospi ta .3.464301 l .8 2021-02-23 2021-02-23 Telephone Galen, 1.2.840.1 [id number] 454 [id number] Methodi 00:00:00 00:00:[address] [place] 3.430.2.7 Hospi ta .3.689659 l .8 2021-02-07 2021-02-07 Telephone Galen, 1.2.840.1 [id number] 085 [id number] Methodi 00:00:00 00:00:[address] [place] 3.430.2.7 Hospi ta .3.786781 l .8 2021-02-02 2021-02-02 Refill Galen, 1.2.840.1 [id number] 72888 53522 [facility]i 00:00:00 00:00:[address] [place] 3.430.2.7 Hospi ta .3.823067 l .8 2021-01-31 2021-01-31 Telephone Galen, 1.2.840.1 [id number] 020 [id number] [facility]i 00:00:00 00:00:[address] [place] 3.430.2.7 Hospi ta .3.240211 l .8 2021-01-14 2021-01-14 Outpatient GALEN [facility] [id number] [place] 00:00:00 00:00:00 POLI [address] 2021-01-05 2021-01-05 [facility] [facility] [id number] [place] 00:00:00 00:00:00 POLI [address] 2020-12-28 2020-12-28 Outpatient GALEN [facility] [id number] [place] 00:00:00 00:00:00 POLI [address] 2020-12-21 2020-12-21 Outpatient GALEN [facility] [id number] [place] 00:00:00 00:00:00 POLI [address] 2020-12-21 2020-12-21 Outpatient GALEN [facility] [id number] [place] 00:00:00 00:00:00 POLI [address] 2020-11-05 2020-11-05 Outpatient GALEN [facility] [id number] [place] 00:00:00 00:00:00 POLI [address] 2020-10-25 2020-10-25 Outpatient GALEN [facility] [id number] [place] 00:00:00 00:00:00 POLI [address] 2020-08-24 2020-08-24 Outpatient POPKATIUSKA, MHFB MHFB 7503 MHFB 11:43:00 12:55:00 NERISSA 2020-07-15 2020-07-15 Outpatient GALEN [facility] [id number] [place] 00:00:00 00:00:00 POLI 251 [address] 2020-07-15 2020-07-15 Outpatient GALEN [facility] [id number] [place] 00:00:00 00:00:00 POLI [address] 2020-07-15 2020-07-15 Outpatient GALEN [facility] [id number] [place] 00:00:00 00:00:00 POLI [address] 2020-07-14 2020-07-14 Outpatient MIRANDAAUBRIEY [facility] 2100 [id number] [place] 00:00:00 00:00:[address] 2020-07-14 2020-07-14 Outpatient ADRIANNA MIRANDA [facility] 2100 [id number] [place] 00:00:00 00:00:[address] 2020-03-01 2020-03-01 Outpatient GALEN [facility] [id number] [place] 00:00:00 00:00:00 POLI [address] 2019-12-17 2019-12-17 Outpatient NATHAN ADRIANNA [facility] 2100 [id number] [place] 00:00:00 00:00:[address] 2019-12-09 2019-12-09 Outpatient GALEN [facility] [id number] [place] 00:00:00 00:00:00 POLI [address] 2019-12-09 2019-12-09 Outpatient GALEN [facility] [id number] [place] 00:00:00 00:00:00 POLI [address] 2019-09-25 2019-09-25 Discharged GRECIA KHAN AL06 [id number] [facility] 00:55:00 13:28:[address] [facility] LIVE HCIS 2019-09-25 2019-09-25 Discharged ER BILL FLORES [id number] [facility] 00:55:00 00:55:00 [facility] 2019-08-26 2019-08-26 Outpatient GALEN [facility] [id number] [place] 00:00:00 00:00:00 POLI [address] 2019-07-29 2019-07-29 Outpatient KARLA SchroederCL OUTD [id number] [facility] 12:10:00 12:10:00 Robi 89 [facility] 2019-07-29 2019-07-29 Outpatient HALIMA Us 3DAY [id number] [facility] 00:00:00 00:00:00 Robi 92 [facility] 2019-07-19 2019-07-19 Outpatient KARLA WilsonWLoco SURG [id number] [facility] 12:00:00 12:00:00 Salidontrell 28 [facility] 2019-05-21 2019-05-21 [facility] [id number] [place] 00:00:00 00:00:00 POLI [address] 2019-04-21 2019-04-21 Outpatient MHFB MHFB 7502 MHFB 11:41:00 11:41:00 Results Test Description Test Time Test Comments Results Result Comments Source FREE T4 2022-08-16 05:47:50 Test Item Value Reference Range Interpretation Comme nts FREE T4 (test code = 1.45 See_Comment [Autom ated message] The system [id number]) which generated this result transmitted ref erence range: 0.78 - 2.20 ng/dL:. The reference range was not u sed to interpret this result as normal/abnormal. Lab Interpretation (test code = Normal 87503-9) [facility] METABOLIC PANEL (27242)2022-08-14 00:35:15 Test Item Value Reference Range Interpretation Comments NA (test code = 138 mmol/L 135-145 5314654462) K (test code = 4.2 mmol/L 3.5-5.0 7790561863) CL (test code = 101 mmol/L 98-108 9858329537) CO2 TOTAL (test code = 30 mmol/L 23-31 3192089922) AGAP (test code = 7 2-16 2180272417) BUN (test code = 36 mg/dL 7-23 H 8930625581) GLUCOSE (test code = 82 mg/dL 70-110 2322201161) CREATININE (test code = 1.27 mg/dL 0.50-1.04 H 7801051282) TOTAL BILI (test code = 0.9 mg/dL 0.1-1.8 9244982149) CALCIUM (test code = 10.6 mg/dL 8.6-10.6 7751210928) T PROTEIN (test code = 6.5 g/dL 6.3-8.2 4762107072) ALBUMIN (test code = 4.1 g/dL 3.5-5.0 3070273796) ALK PHOS (test code = 37 U/L 34-122 9960727457) ALTv (test code = 22 U/L 5-35 1742-6) AST(SGOT) (test code = 33 U/L 13-40 6688449104) eGFR (test code = 39.9 mL/min/1.73m2 5185554653) BANDAR (test code = BANDAR) Association of [...] tests). Lab Interpretation Abnormal (test code = 42439-5) [id number]31 Test Item Value Reference Range Interpretation Comments TROPONIN I (test code = 0.023 ng/mL <=0.034 2549607868) BANDAR (test code = BANDAR) Reference (Normal) [...] biotin. Lab Interpretation Normal (test code = 06580-8) [facility] [id number]-[id number] 00:00:16 Test Item Value Reference Range Interpretation Comments NT-proBNP (test code = 408 pg/mL <=450 8966583899) BANDAR (test code = BANDAR) Biotin has been reported to cause a negative bias, interpret results relative to patient's use of biotin. Lab Interpretation (test Normal code = 85984-8) [facility]2023-05-21 23:50:54 SALICYLATE<10mg/L08/13/2022 6:50 PM [facility] Range: ? Analgesic and Antipyretic Use ? 20- 100 mg/L ? ? Anti-Inflammatory Use ? 100-250 mg/L Toxic Range: ? 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 The reference range was not used to interpret this result as normal/abnormal . RBC (test code = 4.70 See_Comment [Automated 279-8) message] The sy stem which generated this [...] RDW-SD (test code = 48.9 fL 39.0-49.9 71595-4) RDW-CV (test code = 14.1 % 12.0-15.5 788-0) PLT (test code = 298 See_Comment [Automated 327-3) message] The sy stem which generated this result transmitted reference range : 166 - 358 10*3/ ?L. The reference r john was not used to interpret this result as normal/abnormal . MPV (test code = 10.5 fL 9.5-12.9 08296-5) NRBC/100 WBC (test 0.0 See_Comment [Automat ed code = 6894798672) message] The system which generated this result transmitted reference range : 0.0 - 10.0 /100 WBCs. The refer ence range was not u sed to interpret th is result as normal/abnormal . NRBC x10^3 (test code See_Comment [Auto mated = 5945137773) message] The s ystem which generated this result transmitted reference range : 10*3/?L. The reference range was not used to interpret this result as normal/abnormal . GRAN MAT (NEUT) % 58.6 % (test code = 770-8) IMM GRAN % (test code 0.40 % = 4497466038) LYMPH % (test code = 26.4 % 736-9) MONO % (test code = 8.5 % 5905-5) EOS % (test code = 5.0 % 713-8) BASO % (test code = 1.1 % 706-2) GRAN MAT x10^3(ANC) 3.26 10*3/uL 1.88-7.09 (test code = 1159885747) IMM GRAN x10^3 (test 0.00-0.06 code = 5291086675) LYMPH x10^3 (test code 1.47 10*3/uL 1.32-3.29 = 731-0) MONO x10^3 (test code 0.47 10*3/uL 0.33-0.92 = 742-7) EOS x10^3 (test code = 0.28 10*3/uL 0.03-0.39 711-2) BASO x10^3 (test code 0.06 10*3/uL 0.01-0.07 = 704-7) Lab Interpretation Abnormal (test code = 65719-1) [facility] bxjyzeh1585-50-39 16:16:00 Test Item Value Reference Range Interpretation Comments POC glucose (test 90 mg/dL 65-99 Director Of Retail N roberto: Green code = 63054-3) IngridDevice ID: [id number] able: [facility] Notified RNChar table: No Action Needed [facility] lnafmht6918-90-65 16:16:00 Test Item Value Reference Range Interpretation Comments POC glucose (test 90 mg/dL 65-99 Director Of Retail N roberto: Green code = 91939-3) IngridDevice ID: [id number] able: [facility] Notified RNChar table: No Action Needed [facility] kojxcqu5546-52-68 16:16:00 Test Item Value Reference Range Interpretation Comments POC glucose (test 90 mg/dL 65-99 Director Of Retail N roberto: Green code = 11566-5) [employer]grid[employer] ID: [id number] able: [facility] Notified RNChar table: No Action Needed [facility] beqrcil9816-09-65 16:16:00 Test Item Value Reference Range Interpretation Comments POC glucose (test 90 mg/dL 65-99 Director Of Retail N roberto: Green code = 04104-9) IngridDevice ID: [id number] able: [facility] Notified RNChar table: No Action Needed [facility] ogkfb0104-03-33 13:06:00 Test Item Value Reference Interpretation Comments [...] qi/gfr%5Fcalcul ator [Automated mess age] The system Amicrobe generated this result transmit danielle reference range [...] . Sodium (test code = 142 mmol/L 531-538 3928-2) Potassium (test 3.8 mmol/L 3.5-5.3 code = 2823-3) Chloride (test code 100 mmol/L 98-110 = 2075-0) CO2 (test code = 32 mmol/L 20-32 2027-9) Calcium (test code 10.4 mg/dL 8.6-10.4 = 90598-9) Protein (test code 7.4 g/dL 6.1-8.1 = 2885-2) Albumin, S (test 4.8 g/dL 3.6-5.1 code = 1751-7) Globulin, total See_Comment [Automated message] (test code = The [place] BlogCN h 61266-7) generated this result transmit danielle reference range : 1.9 - 3.7 g/dL (merissa c). The reference r john was not used to interpret this result as normal/abnormal . Albumin/globulin See_Comment [Automated message] ratio (test code = The [employer] which 1759-0) generated this result transmit danielle [...] RAC) Organization Information: Site ID: RGA [facility] Address: [address] [place] [address] Director: Robi Rodas Lab Interpretation Abnormal (test code = 29852-5) [facility] [id number] 13:06:00 Test Item Value Reference Range Interpretation [...] calculated (test <100 Desira ble code = 05532-4) range <100 m g/dL for primary prevention; <70 mg/dL for patients with C HD or diabetic patients with > or = 2 CHD risk factors. LDL-C is now calculated using the Geoff-Jaya calculation, which is a validated novel method providin g better accuracy than the Friedewald equation in the estimation of LDL-C. Geoff S S et al. MARY. 2013;310(19): 2428-4992 (http://educati on .[employer] .com/faq/ZGA651 ) Cholesterol/HDL See_Comment [Automated ratio (test code = message] The 9830-1) system which generated this result transmitted reference range : <5.0 (calc). Th e reference range was not used to interpret this result as normal/abnormal . Non-HDL cholesterol See_Comment H For rolly ents with (test code = diabetes plus 1 93861-7) major ASCVD ris k factor, treatin g [...] RAC) Organization Information: Site ID: RGA Name: [facility] Address: [address] [place] [phone] Director: Robi Rodas Lab Interpretation Abnormal (test code = 55355-2) [facility] HospitalHemoglobin [id number] 13:06:00 Test Item Value Reference Range Interpretation [...] in Diabetes(ADA). [Automated mess age] The system Amicrobe generated this result transmitted ref erence range: <5.7 % o f total Hgb. The reference range was not used to int erpret this result as normal/abnormal . BANDAR (test code = FASTING:YES BANDAR) FASTING: YES RAC (test code = Performing RAC) Organization Information: Site ID: RGA Name: [facility] Address: [address] [place] [address] Director: Robi Rodas [facility] HospitalThyroid stimulating axsgmyw6774-97-40 13:06:00 Test Item Value Reference Range Interpretation [...] RAC) Organization Information: Site ID: RGA Name: [facility] Address: [address] [place] [address] Director: Robi Rodas Lab Interpretation Abnormal (test code = 43146-2) [facility] with platelet and amexhbhnvdsy8200-46-56 13:06:00 Test Item Value Reference Range Interpretation [...] RAC) Organization Information: Site ID: RGA [facility]: [facility] Address: [address] [place] [address] Director: Robi Rodas Lab Interpretation Abnormal (test code = 19505-7) [facility] HospitalUrinalysis, automated with tsmfnweopz8680-59-32 13:06:00 Test Item Value Reference Range Interpretation Comments Color, UA (test code YELLOW YELLOW = 5778-6) Appearance (test CLEAR CLEAR code = 5767-9) Specific gravity, 1.001-1.035 urine (test code = 5811-5) pH, urine (test code 5.0-8.0 = 5803-2) Glucose, urine (test NEGATIVE NEGATIVE code = 10622-8) Bilirubin, UA (test NEGATIVE NEGATIVE code = 5770-3) Ketones, UA (test NEGATIVE NEGATIVE code = 2514-8) Occult blood, urine NEGATIVE NEGATIVE (test code = 5794-3) Protein, UA (test TRACE NEGATIVE A code = 85386-4) Nitrite, UA (test NEGATIVE NEGATIVE code = 5802-4) Leukocyte esterase, TRACE NEGATIVE A UA (test code = 5799-2) WBC, UA (test code = NONE SEEN See_Comment [Autom ated 8521-4) message] The system which generated this result transmitted reference range : < OR = 5 /HPF. The reference range was not used to interpr et this result as normal/abnormal . RBC, UA (test code = NONE SEEN See_Comment [Autom ated 50902-4) message] The system which generated this result transmitted reference range : < OR = 2 /HPF. The reference range was not used to interpr et this result as normal/abnormal . Squamous epithelial 0-5 See_Comment [Automa danielle cells, UA (test code message ] The = 44663-8) system which generated this result transmitted reference [...] RAC) Organization Information: Site ID: RGA Name: [facility] Address: [address] [place] [phone] Director: Robi Rodas Lab Interpretation Abnormal (test code = 10105-6) [facility] HospitalVitamin D 25 hydroxy nadpe0614-28-02 13:06:00 Test Item Value Reference Range Interpretation [...] please refer to http://educatio n.Q uestDiagnostics .co m/faq/GXF800 (T his link is being provided for informational/e sunil ational purpose s only.) BANDAR (test code = FASTING:YES FASTING: BANDAR) YES RAC (test code = Performing RAC) Organization Information: Site ID: RGA Name: [facility] Address: [address] [place] [address] Director: Robi oRdas [facility] HospitalCom[facility] metabolic wwgbg9526-10-55 13:06:00 Test Item Value Reference Interpretation Comments [...] qi/gfr%5Fcalcul ator [Automated mess age] The system Amicrobe generated this result transmit danielle reference range [...] . Sodium (test code = 142 mmol/L 613-516 8117-2) Potassium (test 3.8 mmol/L 3.5-5.3 code = 2823-3) Chloride (test code 100 mmol/L 98-110 = 2075-0) CO2 (test code = 32 mmol/L 20-32 2027-9) Calcium (test code 10.4 mg/dL 8.6-10.4 = 56821-9) Protein (test code 7.4 g/dL 6.1-8.1 = 2885-2) Albumin, S (test 4.8 g/dL 3.6-5.1 code = 1751-7) Globulin, total 2.6 See_Comment [Automated message] (test code = [place] [address]-9) generated this result transmit danielle reference range [...] RAC) Organization Information: Site ID: RGA Name: [facility] Lab Address: [address] [place] [phone] Director: Robi Rodas Lab Interpretation Abnormal (test code = 79602-1) [facility] lnyag4936-97-04 13:06:00 Test Item Value Reference Range Interpretation [...] calculated (test <100 Desira ble code = 22607-7) range <100 m g/dL for primary prevention; <70 mg/dL for patients with C HD or diabetic patients with > or = 2 CHD risk factors. LDL-C is now calculated using the Geoff-Lake calculation, which is a validated novel method providin g better accuracy than the Friedewald equation in the estimation of LDL-C. Geoff S S et al. MARY. 2013;310(19): 9644-1345 (http://educati on .[employer] .com/faq/KBP060 ) Cholesterol/HDL 3.3 See_Comment [Automated ratio (test code = message] The 9830-1) system which generated this result transmitted reference range : <5.0 (calc). Th e reference range was not used to interpret this result as normal/abnormal . Non-HDL cholesterol 140 See_Comment H For rolly ents with (test code = diabetes plus 1 46782-4) major ASCVD ris k factor, treatin g [...] RAC) Organization Information: Site ID: RGA Name: [facility] Address: [address] [place] [phone] Director: Robi Rodas Lab Interpretation Abnormal (test code = 93146-3) [facility] HospitalH[facility]oglobin [id number] 13:06:00 Test Item Value Reference Range Interpretation Comments Hemoglobin A1C 5.4 See_Comment For the purpo se of (test code = screening for t 4548-4) presence ofdiab etes: <5.7% Consisten t [...] specif ic patient populat ions. Standards of Pr dical Care in Diabetes(ADA). [Automated mess age] The system whic h generated this result transmitted ref erence range: <5.7 % o f total Hgb. The reference range was not used to int erpret this result as normal/abnormal . BANDAR (test code = FASTING:YES BANDAR) FASTING: YES RAC (test code = Performing RAC) Organization Information: Site ID: A Name: [facility] Address: [address] [place] [address] Director: Robi Rodas [facility] HospitalThy[facility] stimulating inmjsqq7150-20-66 13:06:00 Test Item Value Reference Range Interpretation Comments TSH (test code = 0.17 See_Comment L [Automated 3016-3) message] The system which generated this result transmitted reference range : 0.40 - 4.50 mIU/L. The reference range was not used to interpret this result as normal/abnormal . BANDAR (test code = FASTING:YES BANDAR) FASTING: YES RAC (test code = Performing RAC) Organization Information: Site ID: [facility] Name: [facility] Address: [address] [place] [address] Director: Robi Rodas Lab Interpretation Abnormal (test code = 38153-3) [facility] Hospital[facility] with platelet and ywkqhuzglzbg4823-29-46 13:06:00 Test Item Value Reference Range Interpretation Comments WBC (test code = 10.1 See_Comment [Automated 2568-2) message] The system which generated this result transmitted reference range : 3.8 - 10.8 Thousand/uL. Th e reference range was not used to interpret this result as normal/abnormal . RBC (test code = 4.24 See_Comment [Automated 904-8) message] The system which generated this result [...] RAC) Organization Information: Site ID: A Name: [facility] Lab Address: [address] [place] [phone] Director: Robi Rodas Lab Interpretation Abnormal (test code = 55059-4) [facility] CenterUrinalysis, automated with unfwevgjdn8476-37-20 13:06:00 Test Item Value Reference Range Interpretation Comments Color, UA (test code YELLOW YELLOW = 5778-6) Appearance (test CLEAR CLEAR code = 5767-9) Specific gravity, 1.013 1.001-1.035 urine (test code = 5811-5) pH, urine (test code 7.5 5.0-8.0 = 5803-2) Glucose, urine (test NEGATIVE NEGATIVE code = 34049-9) Bilirubin, UA (test NEGATIVE NEGATIVE code = 5770-3) Ketones, UA (test NEGATIVE NEGATIVE code = 2514-8) Occult blood, urine NEGATIVE NEGATIVE (test code = 5794-3) Protein, UA (test TRACE NEGATIVE A code = 39972-2) Nitrite, UA (test NEGATIVE NEGATIVE code = [...] code = NONE SEEN See_Comment [Autom ated 36948-6) message] The system which generated this result transmitted reference range : < OR = 2 /HPF. The reference range was not used to interpr et this result as normal/abnormal . Squamous epithelial 0-5 See_Comment [Automa danielle cells, UA (test code message ] The = 11549-6) system which generated this result transmitted reference [...] RAC) Organization Information: Site ID: RGA [facility]: [facility] Address: [address] [place] [address] Director: Robi Rodas Lab Interpretation Abnormal (test code = 69372-2) [facility] HospitalVitamin D 25 hydroxy riwxb8510-06-56 13:06:00 Test Item Value Reference Range Interpretation [...] please refer to http://educatio n.Q uestDiagnostics .co m/faq/IGX416 (T his link is being provided for informational/e sunil ational purpose s only.) BANDAR (test code = FASTING:YES FASTING: BANDAR) YES RAC (test code = Performing RAC) Organization Information: Site ID: JACKA Name: [facility] Address: [address] [place] [phone] Director: Robi Rodas [facility] HospitalCom[facility] metabolic nibrt3289-93-81 13:06:00 Test Item Value Reference Interpretation Comments [...] qi/gfr%5Fcalcul ator [Automated mess age] The system Amicrobe generated this result transmit danielle reference range : > OR = 60 mL/min/1.73m2. The reference range was not used to interpret this result as normal/abnormal . BUN/creatinine NOT APPLICABLE See_Comment [Automated message] ratio (test code = The [employer] which 3097-3) generated this result transmit danielle reference range : 6 - 22 (calc). The reference range was not used to interpret this result as normal/abnormal . Sodium (test code = 142 mmol/L 507-786 5896-2) Potassium (test 3.8 mmol/L 3.5-5.3 code = 2823-3) Chloride (test code 100 mmol/L 98-110 = 2075-0) CO2 (test code = 32 mmol/L 20-32 2027-9) Calcium (test code 10.4 mg/dL 8.6-10.4 = 36090-0) Protein (test code 7.4 g/dL 6.1-8.1 = 2885-2) Albumin, S (test 4.8 g/dL 3.6-5.1 code = 1751-7) Globulin, total 2.6 See_Comment [Automated message] (test code = The system Amicrobe 68401-7) generated this result transmit danielle reference range : 1.9 - 3.7 g/dL (merissa c). The reference r john was not used to interpret this result as normal/abnormal . Albumin/globulin 1.8 See_Comment [Automated message] ratio (test code = The [employer] which 1759-0) generated this result transmit danielle [...] RAC) Organization Information: Site ID: RGA Name: [facility] Lab Address: [address] [place] [phone] Director: Robi Rodas Lab Interpretation Abnormal (test code = 29761-8) [facility]id kxzhl8017-62-71 13:06:00 Test Item Value Reference Range Interpretation [...] calculated (test <100 Desira ble code = 21859-2) range <100 m g/dL for primary prevention; <70 mg/dL for patients with C HD or diabetic patients with > or = 2 CHD risk factors. LDL-C is now calculated using the Geoff-Jaya calculation, which is a validated novel method providin g better accuracy than the Friedewald equation in the estimation of LDL-C. Geoff S S et al. MARY. 2013;310(19): 2099-7687 (http://educati on .[employer] .com/faq/IUE901 ) Cholesterol/HDL 3.3 See_Comment [Automated ratio (test code = message] The 9830-1) system which generated this result transmitted reference range : <5.0 (calc). Th e reference range was not used to interpret this result as normal/abnormal . Non-HDL cholesterol 140 See_Comment H For rolly ents with (test code = diabetes plus 1 16251-8) major ASCVD ris k factor, treatin g [...] RAC) Organization Information: Site ID: SAL Name: [facility] Address: [address] [place], [place] [address] Director: Robi Rodas Lab Interpretation Abnormal (test code = 05774-5) [facility] HospitalH[facility] [id number] 13:06:00 Test Item Value Reference Range Interpretation [...] in Diabetes(ADA). [Automated mess age] The system Amicrobe generated this result transmitted ref erence range: <5.7 % o f total Hgb. The reference range was not used to int erpret this result as normal/abnormal . BANDAR (test code = FASTING:YES BANDAR) FASTING: YES RAC (test code = Performing RAC) Organization Information: Site ID: SAL Name: [facility] Address: [address] [place] [address] Director: Robi Rodas [facility] stimulating [id number] 13:06:00 Test Item Value Reference Range Interpretation Comments TSH (test code = 0.17 See_Comment L [Automated 5096-3) message] The system which generated this result transmitted reference range : 0.40 - 4.50 mIU/L. The reference range was not used to interpret this result as normal/abnormal . BANDAR (test code = FASTING:YES BANDAR) FASTING: YES RAC (test code = Performing RAC) Organization Information: Site ID: SAL Name: [facility] Lab Address: [address] [place] [phone] Director: Robi Rodas Lab Interpretation Abnormal (test code = 83602-0) [facility] with platelet and ryshtmbcmkxs2714-58-16 13:06:00 Test Item Value Reference Range Interpretation Comments WBC (test code = 10.1 See_Comment [Automated 6690-2) message] The system which generated this result transmitted reference range : 3.8 - 10.8 Thousand/uL. Th e reference range was not used to interpret this result as normal/abnormal . RBC (test code = 4.24 See_Comment [Automated 789-8) message] The system which [...] RAC) Organization Information: Site ID: RGA [facility]: [facility] Address: [address] [place] [phone] Director: Robi Rodas Lab Interpretation Abnormal (test code = 59703-0) [facility] with mqezdzhmoo0530-08-43 13:06:00 Test Item Value Reference Range Interpretation Comments Color, UA (test code YELLOW YELLOW = 5778-6) Appearance (test CLEAR CLEAR code = 5767-9) Specific gravity, 1.013 1.001-1.035 urine (test code = 5811-5) pH, urine (test code 7.5 5.0-8.0 = 5803-2) Glucose, urine (test NEGATIVE NEGATIVE code = 77238-0) Bilirubin, UA (test NEGATIVE NEGATIVE code = 5770-3) Ketones, UA (test NEGATIVE NEGATIVE code = 4204-8) Occult blood, urine NEGATIVE NEGATIVE (test code = 5794-3) Protein, UA (test TRACE NEGATIVE A code = 89760-5) Nitrite, UA (test NEGATIVE NEGATIVE code = [...] code = NONE SEEN See_Comment [Autom ated 51021-0) message] The system which generated this result transmitted reference range : < OR = 2 /HPF. The reference range was not used to interpr et this result as normal/abnormal . Squamous epithelial 0-5 See_Comment [Automa danielle cells, UA (test code message ] The = 65076-5) system which generated this result transmitted reference [...] RAC) Organization Information: Site ID: RGA [facility]: [facility] Address: [address] [place] [phone] Director: Robi Rodas Lab Interpretation Abnormal (test code = 18412-6) [facility] HospitalVitamin D 25 hydroxy srjsu1610-78-81 13:06:00 Test Item Value Reference Range Interpretation [...] please refer to http://educatio n.Q uestDiagnostics .co m/faq/KJH261 (T his link is being provided for informational/e sunil ational purpose s only.) BANDAR (test code = FASTING:YES FASTING: BANDAR) YES RAC (test code = Performing RAC) Organization Information: Site ID: SAL [facility]: [facility] Address: [address] [place] [phone] Director: [facility]as [facility] metabolic [id number] 13:06:00 Test Item Value Reference Interpretation Comments [...] Creatinine or Cystatin Cresul t, go to [email or web address] ator [Automated mess age] The system [employer] h generated this result transmit danielle reference [...] . Sodium (test code = 142 mmol/L 082-184 8964-2) Potassium (test 3.8 mmol/L 3.5-5.3 code = 2823-3) Chloride (test code 100 mmol/L 98-110 = 2075-0) CO2 (test code = 32 mmol/L 20-32 2027-11) Calcium (test code 10.4 mg/dL 8.6-10.4 = 56906-3) Protein (test code 7.4 g/dL 6.1-8.1 = 2885-2) Albumin, S (test 4.8 g/dL 3.6-5.1 code = 1751-7) Globulin, total 2.6 See_Comment [Automated message] (test code = The [place] whic h 46073-9) generated this result transmit danielle reference range : 1.9 - 3.7 g/dL (merissa c). The reference r john was not used to interpret this result as normal/abnormal . Albumin/globulin 1.8 See_Comment [Automated message] ratio (test code = The syste m which ) generated this result transmit danielle reference range : 1.0 - 2.5 (calc). T he reference range was not used to interpret this result as normal/abnormal . Total bilirubin 0.6 mg/dL 0.2-1.2 (test code = 1974-) Alkaline 43 U/L 37-153 phosphatase (test code = 6768-6) AST (test code = 22 U/L 10-35 192-8) ALT (test code = 17 U/L 6-1741-6) BANDAR (test code = FASTING:YES BANDAR) FASTING: YES RAC (test code = Performing RAC) Organization Information: Site ID: RGA [facility]: [facility] Address: [address] [place] [phone] Director: Robi Rodas Lab Interpretation Abnormal (test code = 62173-2) [facility] HospitalLipid xwlce4039-53-17 13:06:00 Test Item Value Reference Range Interpretation [...] calculated (test <100 Desira ble code = 12793-0) range <100 m g/dL for primary prevention; <70 mg/dL for patients with C HD or diabetic patients with > or = 2 CHD risk factors. LDL-C is now calculated using the Pradeep calculation, which is a validated novel method providin g better accuracy than the Friedewald equation in the estimation of LDL-C. Geoff S S et al. MARY. 2013;310(19): 8317-0210 (http://educati on .[employer] .com/faq/MRM184 ) Cholesterol/HDL 3.3 See_Comment [Automated ratio (test code = message] The 9830-1) system which generated this result transmitted reference range : <5.0 (calc). Th e reference range was not used to interpret this result as normal/abnormal . Non-HDL cholesterol 140 See_Comment H For rolly ents with (test code = diabetes plus 1 05173-3) major ASCVD ris k factor, treatin g [...] RAC) Organization Information: Site ID: RGA [facility]: [facility] Address: [address] [place] [phone] Director: Robi Rodas Lab Interpretation Abnormal (test code = 14732-7) [facility] HospitalHemoglobin [id number] 13:06:00 Test Item Value Reference Range Interpretation [...] specif ic patient populat ions. Standards of Pr dical Care in Diabetes(ADA). [Automated mess age] The system whic h generated this result transmitted ref erence range: <5.7 % o f total Hgb. The reference range was not used to int erpret this result as normal/abnormal . BANDAR (test code = FASTING:YES BANDAR) FASTING: YES RAC (test code = Performing RAC) Organization Information: Site ID: [facility] Name: [facility] Address: [address] [place] [address] Director: Robi Rodas [facility] HospitalThyroid stimulating azjbukf7617-29-40 13:06:00 Test Item Value Reference Range Interpretation Comments TSH (test code = 0.17 See_Comment L [Automated 9876-3) message] The system which generated this result transmitted reference range : 0.40 - 4.50 mIU/L. The reference range was not used to interpret this result as normal/abnormal . BANDAR (test code = FASTING:YES BANDAR) FASTING: YES RAC (test code = Performing RAC) Organization Information: Site ID: RGA Name: [facility] Lab Address: [address] [place] [address] Director: Robi Rodas Lab Interpretation Abnormal (test code = 47134-7) [facility] with platelet and fkhikegrhysp0027-25-45 13:06:00 Test Item Value Reference Range Interpretation Comments WBC (test code = 10.1 See_Comment [Automated 0035-2) message] The system which generated this result transmitted reference range : 3.8 - 10.8 Thousand/uL. Th e reference range was not used to interpret this result as normal/abnormal . RBC (test code = 4.24 See_Comment [Automated 775-8) message] The system which generated this result [...] RAC) Organization Information: Site ID: RGA Name: [facility] Lab Address: [address] [place] [phone] Director: Robi Rodas Lab Interpretation Abnormal (test code = 82634-0) [facility]inal[facility], automated with lqvtrervjd6453-74-04 13:06:00 Test Item Value Reference Range Interpretation Comments Color, UA (test code YELLOW YELLOW = 5778-6) Appearance (test CLEAR CLEAR code = 5767-9) Specific gravity, 1.013 1.001-1.035 urine (test code = 5811-5) pH, urine (test code 7.5 5.0-8.0 = 5803-2) Glucose, urine (test NEGATIVE NEGATIVE code = 44922-5) Bilirubin, UA (test NEGATIVE NEGATIVE code = 5770-3) Ketones, UA (test NEGATIVE NEGATIVE code = 2514-8) Occult blood, urine NEGATIVE NEGATIVE (test code = 5794-3) Protein, UA (test TRACE NEGATIVE A code = 64191-6) Nitrite, UA (test NEGATIVE NEGATIVE code = [...] code = NONE SEEN See_Comment [Autom ated 05637-8) message] The system which generated this result transmitted reference range : < OR = 2 /HPF. The reference range was not used to interpr et this result as normal/abnormal . Squamous epithelial 0-5 See_Comment [Automa danielle cells, UA (test code message ] The = 05255-5) system which generated this result transmitted reference [...] = Performing RAC) Organization Information: Site ID: [facility] Name: [facility] Address: [address] [place] [phone] Director: Robi Rodas Lab Interpretation Abnormal (test code = 08884-8) [facility] HospitalVitamin D 25 hydroxy ypwig0506-35-68 13:06:00 Test Item Value Reference Range Interpretation [...] please refer to http://educatio n.Q uestDiagnostics .co m/faq/NUP564 (T his link is being provided for informational/e sunil ational purpose s only.) BANDAR (test code = FASTING:YES FASTING: BANDAR) YES RAC (test code = Performing RAC) Organization Information: Site ID: [facility] Name: [facility] Address: [address] [place] [phone] Director: Robi Rodas [facility] HospitalHSV 1 and 2 specific Ab [id number] 00:13:00 Test Item Value Reference Interpretation Comments [...] RAC) Organization Information: Site ID: IG Name: [facility] elizabeth Lab Address: [address] [place] [phone] Director: Dr. Robi Rodas Lab Interpretation Abnormal (test code = 33075-2) [facility] HospitalTroponin I cazkwzqok5399-18-13 12:00:00 Test Item Value Reference Range Interpretation Comments Troponin I (test code = 72186-1) 0.389 ng/mL 0.00-0.045 [facility] HealthTroponin I cembffybg1398-98-24 12:00:00 Test Item Value Reference Range Interpretation Comments Troponin I (test code = 72420-7) 0.389 ng/mL Automated erythrocyte mean corpuscular volume (MCV) jqzbkayorab9678-18-84 04:50:00 Test Item Value Reference Range Interpretation Comments Mean Corpuscular Volume (test code = 91.4 fL 80.0-99.0 787-2) [facility] PingpigeonAutomated erythrocyte mean corpuscular hemoglobin (mass per erythrocyte)2019-09-25 04:50:00 Test Item Value Reference Range Interpretation Comments Mean Corpuscular Hemoglobin (test 29.3 pg 27.0-32.0 code = 785-6) [facility] HealthAutomated erythrocyte mean corpuscular hemoglobin concentration (MCHC) measurement (n8811-10-24 04:50:00 Test Item Value Reference Range Interpretation Comments Mean Corpuscular Hemoglobin Concent 32.0 % 32.0-36.0 (test code = 786-4) [facility] PingpigeonAutomated erythrocyte distribution width uzzvq4053-50-39 04:50:00 Test Item Value Reference Range Interpretation Comments Red Cell Distribution Width (test code 13.0 % 0.0-15.5 = 788-0) [facility] HealthAutomated blood platelet count (count/volume)2019-09-25 04:50:00 Test Item Value Reference Range Interpretation Comments Platelet Count (test code = 287 10*3/uL 130-400 777-3) [facility] HealthAutomated blood platelet mean volume irsszrtabjn1828-22-96 04:50:00 Test Item Value Reference Range Interpretation Comments Mean Platelet Volume (test code = 10.2 fL 9.2-12.2 17946-0) [facility] HealthAutomated blood neutrophil count as percentage of total ujzmsbwtdz8206-57-67 04:50:00 Test Item Value Reference Range Interpretation Comments Neutrophils (%) (Auto) (test code = 67.2 % 50-80 770-8) [facility] HealthAutomated blood immature granulocyte count as percentage of total ulnlmhtnaj7448-23-81 04:50:00 Test Item Value Reference Range Interpretation Comments Immature Granulocyte % (Auto) (test 0.50 % 0.0-0.43 code = 67040-1) [facility] HealthAutomated blood lymphocyte count as percentage of total xzdvhneyal1796-25-50 04:50:00 Test Item Value Reference Range Interpretation Comments Lymphocytes (%) (Auto) (test code = 20.4 % 20.0-45.0 736-9) [facility] HealthAutomated blood monocyte count as percentage of total leukocytes 2019-09-25 04:50:00 Test Item Value Reference Range Interpretation Comments Monocytes (%) (Auto) (test code = 8.0 % 2-10 5905-5) [facility] HealthAutomated blood eosinophil count as percentage of total xhltleflco0915-61-59 04:50:00 Test Item Value Reference Range Interpretation Comments Eosinophils (%) (Auto) (test code = 3.1 % 0-6 713-8) [facility] HealthAutomated blood basophil count as percentage of total leukocytes 2019-09-25 04:50:00 Test Item Value Reference Range Interpretation Comments Basophils (%) (Auto) (test code = 0.8 % 0-3 706-2) [facility] HealthAutomated blood nucleated erythrocyte count as percentage of total plutjkhwhx6714-96-02 04:50:00 Test Item Value Reference Range Interpretation Comments Nucleated Red Blood Cells % (test code 0.0 % 0-0.2 = 15734-1) [facility] HealthAutomated blood neutrophil count (number/volume)2019-09-25 04:50:00 Test Item Value Reference Range Interpretation Comments Neutrophils # (Auto) (test code = 5.2 10*3/uL 1.4-7.0 751-8) [facility] HealthAutomated blood immature granulocyte count as percentage of total qrhiotyffp5094-80-02 04:50:00 Test Item Value Reference Range Interpretation Comments Immature Granulocyte # (Auto) (test 0.0400 0.0-0.0310 code = 73869-9) [facility] HealthAutomated blood lymphocyte count (number/volume)2019-09-25 04:50:00 Test Item Value Reference Range Interpretation Comments Lymphocytes # (Auto) (test code = 1.6 10*3/uL 1.2-4.0 731-0) [facility] Center[facility] monocytes automated count (number/volume)2019-09-25 04:50:00 Test Item Value Reference Range Interpretation Comments Monocytes # (Auto) (test code = 0.6 10*3/uL 0.1-0.8 742-7) [facility] HealthAutomated blood eosinophil jesfr9751-83-07 04:50:00 Test Item Value Reference Range Interpretation Comments Eosinophils # (Auto) (test code = 0.2 10*3/uL 0.0-0.6 711-2) [facility] HealthAutomated blood basophil count (number/volume)2019-09-25 04:50:00 Test Item Value Reference Range Interpretation Comments Basophils # (Auto) (test code = 0.1 10*3/uL 0.0-0.3 704-7) [facility] CenterAutomated blood leukocyte count corrected for nucleated hedutyqkehyc3477-37-50 04:50:00 Test Item Value Reference Range Interpretation Comments Nucleated Red Blood Cells # (test code 0.000 0-0.012 = 48194-4) [facility] erythrocyte sedimentation rate (ESR) measurement by photometricmethod (length/i2002-40-80 04:50:00 Test Item Value Reference Range Interpretation Comments Erythrocyte Sedimentation Rate (test 7 mm/h 0-20 code = 15603-3) [facility] CenterSodium measurement (moles/volume)2019-09-25 04:50:00 Test Item Value Reference Range Interpretation Comments Sodium Level (test code = 56156-7) 139 mmol/L 131-143 [facility] HealthSerum or plasma [...] 21-32 8-9) [facility] HealthSerum or plasma anion lqf4197-50-97 04:50:00 Test Item Value Reference Range Interpretation Comments Anion Gap (test code = 72783-0) 7.0 mmol/L 3.0-11.0 [facility] HealthSerum or plasma urea nitrogen measurement (mass/volume)2019-09-25 04:50:00 Test Item Value Reference Range Interpretation Comments Blood Urea Nitrogen (test code = 23.0 mg/dL 7.0-18.0 3094-0) [facility] HealthSerum or plasma creatinine measurement (mass/volume)2019-09-25 04:50:00 Test Item Value Reference Range Interpretation Comments Creatinine (test code = 2160-0) 0.958 mg/dL 0.550-1.02 [facility] HealthGFR estimate [id number] 04:50:00 Test Item Value Reference Range Interpretation Comments Estimat Glomerular Filtration Rate 56 >60 (test code = 98974-1) [facility] HealthSerum or plasma glucose measurement (mass/volume)2019-09-25 04:50:00 Test Item Value Reference Range Interpretation Comments Glucose Level (test code = 2345-7) 102 mg/dL 74-106 [facility] HealthSerum or plasma calcium measurement (mass/volume)2019-09-25 04:50:00 Test Item Value Reference Range Interpretation Comments Calcium Level (test code = 48729-6) 9.5 mg/dL 8.5-10.1 [facility] HealthSerum or plasma creatine kinase MB measurement (mass/volume) 2019-09-25 04:50:00 Test Item Value Reference Range Interpretation Comments Creatine Kinase MB (test code = 3.3 ng/mL 0.3-3.6 09961-6) [facility] HealthSerum or plasma C reactive protein [...] = 4544-3) 38.4 % 37.0-47.0 [facility] HealthAutomated blood leukocyte count (number/volume)2019-09-25 04:50:00 [...] % Automated erythrocyte mean corpuscular volume (MCV) anmdylvfaap9535-25-29 04:50:00 Test Item Value Reference Range Interpretation Comments Mean Corpuscular Volume (test code = 91.4 fL 787-2) Automated erythrocyte mean corpuscular hemoglobin (mass per erythrocyte) 2019-09-25 04:50:00 Test Item Value Reference Range Interpretation Comments Mean Corpuscular Hemoglobin (test 29.3 pg code = 785-6) Automated erythrocyte mean corpuscular hemoglobin concentration (MCHC) measurement (p2345-56-23 04:50:00 Test Item Value Reference Range Interpretation Comments Mean Corpuscular Hemoglobin Concent 32.0 % (test code = 786-4) Automated erythrocyte distribution width rkwfy6978-73-85 04:50:00 Test Item Value Reference Range Interpretation Comments Red Cell Distribution Width (test code 13.0 % = 788-0) Automated blood platelet count (count/volume)2019-09-25 04:50:00 Test Item Value Reference Range Interpretation Comments Platelet Count (test code = 287 10*3/uL 777-3) Automated blood platelet mean volume gqppfwowvxf1947-71-45 04:50:00 Test Item Value Reference Range Interpretation Comments Mean Platelet Volume (test code = 10.2 fL 07322-3) Automated blood neutrophil count as percentage of total rwyqnvggop4595-90-49 04:50:00 Test Item Value Reference Range Interpretation Comments Neutrophils (%) (Auto) (test code = 67.2 % 770-8) Automated blood immature granulocyte count as percentage of total leukocytes 2019-09-25 04:50:00 Test Item Value Reference Range Interpretation Comments Immature Granulocyte % (Auto) (test 0.50 % code = 33810-7) Automated blood lymphocyte count as percentage of total mmvdkiuoto3956-64-22 04:50:00 Test Item Value Reference Range Interpretation Comments Lymphocytes (%) (Auto) (test code = 20.4 % 736-9) Automated blood monocyte count as percentage of total qpfihlmmel7075-59-82 04:50:00 Test Item Value Reference Range Interpretation Comments Monocytes (%) (Auto) (test code = 8.0 % 5905-5) Automated blood eosinophil count as percentage of total jznzxibkvi8015-98-78 04:50:00 Test Item Value Reference Range Interpretation Comments Eosinophils (%) (Auto) (test code = 3.1 % 713-8) Automated blood basophil count as percentage of total ofhawhkdie9421-19-02 04:50:00 Test Item Value Reference Range Interpretation Comments Basophils (%) (Auto) (test code = 0.8 % 706-2) Automated blood nucleated erythrocyte count as percentage of total leukocytes 2019-09-25 04:50:00 Test Item Value Reference Range Interpretation Comments Nucleated Red Blood Cells % (test code 0.0 % = 37117-0) Automated blood neutrophil count (number/volume)2019-09-25 04:50:00 Test Item Value Reference Range Interpretation Comments Neutrophils # (Auto) (test code = 5.2 10*3/uL 751-8) Automated blood immature granulocyte count as percentage of total leukocytes 2019-09-25 04:50:00 Test Item Value Reference Range Interpretation Comments Immature Granulocyte # (Auto) (test 0.0400 code = 73303-0) Automated blood lymphocyte count (number/volume)2019-09-25 04:50:00 Test Item Value Reference Range Interpretation Comments Lymphocytes # (Auto) (test code = 1.6 10*3/uL 731-0) Blood monocytes automated count (number/volume)2019-09-25 04:50:00 Test Item Value Reference Range Interpretation Comments Monocytes # (Auto) (test code = 0.6 10*3/uL 742-7) Automated blood eosinophil xfhnr9192-66-81 04:50:00 Test Item Value Reference Range Interpretation Comments Eosinophils # (Auto) (test code = 0.2 10*3/uL 711-2) Automated blood basophil count (number/volume)2019-09-25 04:50:00 Test Item Value Reference Range Interpretation Comments Basophils # (Auto) (test code = 0.1 10*3/uL 704-7) Automated blood leukocyte count corrected for nucleated dzbmqsvcfnaj4226-78-48 04:50:00 Test Item Value Reference Range Interpretation Comments Nucleated Red Blood Cells # (test code 0.000 = 07540-0) Blood erythrocyte sedimentation rate (ESR) measurement by photometricmethod (length/x9891-21-87 04:50:00 Test Item Value Reference Range Interpretation Comments Erythrocyte Sedimentation Rate (test 7 mm/h code = 36382-9) Sodium measurement (moles/volume)2019-09-25 04:50:00 Test Item Value Reference Range Interpretation Comments Sodium Level (test code = 92920-5) 139 mmol/L Serum or plasma potassium measurement (moles/volume)2019-09-25 04:50:00 Test Item Value Reference Range Interpretation Comments Potassium Level (test code = 4.3 mmol/L 2823-3) Serum or plasma chloride measurement (moles/volume)2019-09-25 04:50:00 Test Item Value Reference Range Interpretation Comments Chloride Level (test code = 105 mmol/L 2075-0) Serum or plasma carbon dioxide measurement (moles/volume)2019-09-25 04:50:00 Test Item Value Reference Range Interpretation Comments Carbon Dioxide Level (test code = 27 mmol/L 8-9) Serum or plasma anion wjj3112-47-09 04:50:00 Test Item Value Reference Range Interpretation Comments Anion Gap (test code = 96903-1) 7.0 mmol/L Serum or plasma urea nitrogen measurement (mass/volume)2019-09-25 04:50:00 Test Item Value Reference Range Interpretation Comments Blood Urea Nitrogen (test code = 23.0 mg/dL 3094-0) Serum or plasma creatinine measurement (mass/volume)2019-09-25 04:50:00 Test Item Value Reference Range Interpretation Comments Creatinine (test code = 2160-0) 0.958 mg/dL GFR estimate [id number] 04:50:00 Test Item Value Reference Range Interpretation Comments Estimat Glomerular Filtration Rate 56 (test code = 14942-2) Serum or plasma glucose measurement (mass/volume)2019-09-25 04:50:00 Test Item Value Reference Range Interpretation Comments Glucose Level (test code = 2345-7) 102 mg/dL Serum or plasma calcium measurement (mass/volume)2019-09-25 04:50:00 Test Item Value Reference Range Interpretation Comments Calcium Level (test code = 32807-8) 9.5 mg/dL Serum or plasma creatine kinase MB measurement (mass/volume)2019-09-25 04:50:00 Test Item Value Reference Range Interpretation Comments Creatine Kinase MB (test code = 3.3 ng/mL 15159-7) Serum or plasma C reactive protein measurement (mass/volume)2019-09-25 04:50:00 Test Item Value Reference Range Interpretation Comments C-Reactive Protein, Quantitative < 0.29 mg/dL (test code = 1988-5) Serum or plasma magnesium measurement (mass/volume)2019-09-24 22:42:00 Test Item Value Reference Range Interpretation Comments Magnesium Level (test code = 2.3 mg/dL 1.6-2.6 29190-4) [facility] HealthSerum or plasma total bilirubin measurement (mass/volume) [...] (test code = 53 U/L 45-117 6768-6) [facility] CenterLactate ser/jege8698-90-48 22:42:00 Test Item Value Reference Range Interpretation Comments Lactic Acid Level (test code = 1.0 mmol/L 0.4-1.9 2524-7) [facility] HealthSerum or plasma creatine kinase measurement (enzymatic activity/volume)2019-09-24 22:42:00 Test Item Value Reference Range Interpretation Comments Total Creatine Kinase (test code = 413 U/L 26-192 2157-6) [facility] CenterSerum or plasma total creatine kinase/creatine kinase MB isoenzyme activity iikrq8022-92-52 22:42:00 Test Item Value Reference Range Interpretation Comments Creatine Kinase MB Relative Index (test 0.5 % 0-4 code = 2158-4) [facility] sajtotfjt3794-95-28 22:42:00 Test Item Value Reference Range Interpretation Comments Troponin I (test code = 43369-1) 0.059 ng/mL 0.00-0.045 [facility] CenterSer[facility] or plasma brain natriuretic peptide (BNP) measurement 2019-09-24 22:42:00 Test Item Value Reference Range Interpretation Comments B-Type Natriuretic Peptide (test 40 pg/mL 0.0-100 code = 53920-8) [facility] Center[facility] or plasma thyrotropin measurement by detection limit <=0.005 miu/l (units/cfjnh0620-32-33 22:42:00 Test Item Value Reference Range Interpretation Comments Thyroid Stimulating Hormone 7.670 u[iU]/mL 0.358-3.74 (TSH) (test code = 69158-7) [facility] plasma procalcitonin measurement (mass/volume)2019-09-24 22:42:00 Test Item Value Reference Range Interpretation Comments Procalcitonin (test code = < 0.05 ng/mL 0.0-0.5 55234-0) [facility] CenterWhole blood prothrombin qmnb0331-23-87 22:42:00 Test Item Value Reference Range Interpretation Comments Prothrombin Time (test code = 5964-2) 11.4 s 10.2-12.9 [facility] CenterINR in Platelet poor plasma by Coagulation qcvch2394-61-87 22:42:00 Test Item Value Reference Range Interpretation Comments Prothromb Time International Ratio 1.0 {INR} 0.9-1.1 (test code = 6301-6) [facility] CenterPartial thromboplastin time (PTT) in platelet poor plasma 2019-09-24 22:42:00 Test Item Value Reference Range Interpretation Comments Activated Partial Thromboplast Time 31.7 s 25.1-36.5 (test code = 54883-9) [facility] CenterFibrin D-dimer FEU goff3609-64-40 22:42:00 Test Item Value Reference Range Interpretation Comments D-Dimer (test code = 20384-2) 262 ng/mL{FEU} 0.00-500 [facility] blood prothrombin xmrj8127-40-77 22:42:00 Test Item Value Reference Range Interpretation Comments Prothrombin Time (test code = 5964-2) 11.4 s INR in Platelet poor plasma by Coagulation vabys0890-80-91 22:42:00 Test Item Value Reference Range Interpretation Comments Prothromb Time International Ratio 1.0 {INR} (test code = 6301-6) Partial thromboplastin time (PTT) in platelet poor apehed1778-90-52 22:42:00 Test Item Value Reference Range Interpretation Comments Activated Partial Thromboplast Time 31.7 s (test code = 29605-1) Fibrin D-dimer FEU cipc1555-40-85 22:42:00 Test Item Value Reference Range Interpretation Comments D-Dimer (test code = 82334-5) 262 ng/mL{FEU} Serum or plasma magnesium measurement (mass/volume)2019-09-24 22:42:00 Test Item Value Reference Range Interpretation Comments Magnesium Level (test code = 2.3 mg/dL 54640-8) Serum or plasma total bilirubin measurement (mass/volume)2019-09-24 [...] (test code = 53 U/L 6768-6) Lactate ser/whkv2079-75-04 22:42:00 Test Item Value Reference Range Interpretation Comments Lactic Acid Level (test code = 1.0 mmol/L 2524-7) Serum or plasma creatine kinase measurement (enzymatic activity/volume) 2019-09-24 22:42:00 Test Item Value Reference Range Interpretation Comments Total Creatine Kinase (test code = 413 U/L 2157-6) Serum or plasma total creatine kinase/creatine kinase MB isoenzyme activity fdqdi0511-31-02 22:42:00 Test Item Value Reference Range Interpretation Comments Creatine Kinase MB Relative Index (test 0.5 % code = 2158-4) Troponin I pxnenohmi0598-74-92 22:42:00 Test Item Value Reference Range Interpretation Comments Troponin I (test code = 76114-7) 0.059 ng/mL Serum or plasma brain natriuretic peptide (BNP) nsraqdgphbs3849-31-14 22:42:00 Test Item Value Reference Range Interpretation Comments B-Type Natriuretic Peptide (test 40 pg/mL code = 99920-8) Serum or plasma thyrotropin measurement by detection limit <=0.005 miu/l (units/cvicq2601-48-42 22:42:00 Test Item Value Reference Range Interpretation Comments Thyroid Stimulating Hormone 7.670 u[iU]/mL (TSH) (test code = 11925-5) Serum or plasma procalcitonin measurement (mass/volume)2019-09-24 22:42:00 Test Item Value Reference Range Interpretation Comments Procalcitonin (test code = < 0.05 ng/mL 44448-0) Automated bacteria count in urine sediment (number/area)2019-09-24 22:33:00 Test Item Value Reference Range Interpretation Comments Urine Bacteria (test None /[HPF] See_Comment [Autom ated message] code = 78211-3) The system w [facility] generated this result transmitted ref erence range: 0-+/-. T he reference range was not used to int erpret this result as normal/abnormal . BILL BorreroAutomated mucus count in urine sediment (number/area)2019-09-24 22:33:00 Test Item Value Reference Range Interpretation Comments Urine Mucus (test +/- /[LPF] See_Comment [Automate d message] The code = 94644-1) system which generated this result tra nsmitted reference range : 0-1+. The reference r john was not used to int erpret this result as normal/abnormal . [facility] HealthAutomated urine yeast count (number/area)2019-09-24 22:33:00 Test Item Value Reference Range Interpretation Comments Urine Yeast (Budding) (test code Rare /[HPF] None Seen = 07636-0) [facility]Service comment [id number] 22:33:00 Test Item Value Reference Range Interpretation Comments Urine Culture Indicated Yes, Criteria Met (test code = 8264-4) [facility] HealthBacterial urine zggewwt7092-67-32 22:33:00 Test Item Value Reference Range Interpretation Comments Urine Culture (test No growth in 18-24 code = 630-4) hours [facility] HealthAutomated urine color mvkaqppgduxwt9082-49-55 22:33:00 Test Item Value Reference Range Interpretation Comments Urine Color (test code = 61109-2) Yellow Yellow [facility] HealthClarity in Urine by Refractometry hskszyhsk4179-45-07 22:33:00 Test Item Value Reference Range Interpretation Comments Urine Appearance (test code = 24907-1) Clear Clear [facility] HealthUrine pH measurement by test evamc9532-99-63 22:33:00 Test Item Value Reference Range Interpretation Comments Urine pH (test code = 5803-2) 7.5 [pH] 5.0-8.0 [facility] HealthAutomated urine specific gravity by dolmhaeyezkhm0746-14-47 22:33:00 Test Item Value Reference Range Interpretation Comments Urine Specific [employer] (test code = 1.009 1.005-1.030 88532-2) [facility] HealthAutomated urine protein qzbrkjgnfoo5154-52-98 22:33:00 Test Item Value Reference Range Interpretation Comments Urine Protein (test code = Negative mg/dL Negative 07777900) [facility] HealthAutomated urine glucose quevggdjh7637-52-43 22:33:00 Test Item Value Reference Range Interpretation Comments Urine Glucose (UA) (test code Negative mg/dL Negative = 70923-7) [facility] HealthUrine ketones detection by automated test ijskm5387-98-78 22:33:00 Test Item Value Reference Range Interpretation Comments Urine Ketones (test code = Negative mg/dL Negative 59972-7) [facility] HealthUrine erythrocytes detection by automated eishzj3954-02-51 22:33:00 Test Item Value Reference Range Interpretation Comments Urine Occult Blood (test code = Negative Negative 27974-8) [facility] HealthAutomated urine nitrite rpqoiccrjdn3002-25-42 22:33:00 Test Item Value Reference Range Interpretation Comments Urine Nitrite (test code = 91838-3) Negative Negative [facility] HealthUrine total bilirubin detection by automated test xjzri2091-29-38 22:33:00 Test Item Value Reference Range Interpretation Comments Urine Bilirubin (test code = Negative Negative 23320-6) [facility] HealthAutomated urine urobilinogen csoesrlqjzp8352-32-82 22:33:00 Test Item Value Reference Range Interpretation Comments Urine Urobilinogen (test code = Normal mg/dL Normal 28964962) [facility] HealthUrine leukocytes detection by automated jywqhr3135-06-50 22:33:00 Test Item Value Reference Range Interpretation Comments Urine Leukocyte Esterase (test 250 {Marianna}/uL Negative code = 74384-3) [facility] HealthAutomated erythrocytes count in urine sediment (number/area) 2019-09-24 22:33:00 Test Item Value Reference Range Interpretation Comments Urine RBC (test code = 31690-6) 0-2 /[HPF] 0-2 [facility] HealthAutomated leukocytes count in urine sediment (number/area) 2019-09-24 22:33:00 Test Item Value Reference Range Interpretation Comments Urine WBC (test code = 61748-1) 10-20 /[HPF] 0-2 [facility] HealthAutomated squamous epithelial cells count in urine sediment (number/area)2019-09-24 22:33:00 Test Item Value Reference Range Interpretation Comments Urine Squamous Rare /[LPF] See_Comment [Automated m essage] Epithelial Cells The system which (test code = 55360-1) genera danielle this result transmitted ref erence range: 0 - 1+. The reference range was not used to int erpret this result as normal/abnormal . [facility] HealthAutomated urine sediment crystal count (number/area)2019-09-24 22:33:00 Test Item Value Reference Range Interpretation Comments Urine Other Crystals (test +/- Rare /[LPF] None Seen code = 96181-2) [facility] HealthBacterial urine frieouz8046-06-59 22:33:00 Test Item Value Reference Range Interpretation Comments Urine Culture (test No growth in 18-24 code = 630-4) hours Automated urine color rveprqwfsifrm9057-04-39 22:33:00 Test Item Value Reference Range Interpretation Comments Urine Color (test code = 59150-1) Yellow Clarity in Urine by Refractometry hbssjvpjn0696-51-13 22:33:00 Test Item Value Reference Range Interpretation Comments Urine Appearance (test code = 73875-9) Clear Urine pH measurement by test jmtgj8341-78-89 22:33:00 Test Item Value Reference Range Interpretation Comments Urine pH (test code = 5803-2) 7.5 [pH] Automated urine specific gravity by czkxnqluhfvik1398-51-02 22:33:00 Test Item Value Reference Range Interpretation Comments Urine Specific [employer] (test code = 1.009 97773-3) Automated urine protein anvwfcvalrn0951-70-13 22:33:00 Test Item Value Reference Range Interpretation Comments Urine Protein (test code = Negative mg/dL 72244951) Automated urine glucose axsqnvhkt6403-14-98 22:33:00 Test Item Value Reference Range Interpretation Comments Urine Glucose (UA) (test code Negative mg/dL = 08013-7) Urine ketones detection by automated test pntil8667-71-99 22:33:00 Test Item Value Reference Range Interpretation Comments Urine Ketones (test code = Negative mg/dL 68045-4) Urine erythrocytes detection by automated ucxqoj8576-83-77 22:33:00 Test Item Value Reference Range Interpretation Comments Urine Occult Blood (test code = Negative 60738-3) Automated urine nitrite xkxqcpgxonr9023-49-62 22:33:00 Test Item Value Reference Range Interpretation Comments Urine Nitrite (test code = 47961-5) Negative Urine total bilirubin detection by automated test jyfsj6155-55-25 22:33:00 Test Item Value Reference Range Interpretation Comments Urine Bilirubin (test code = Negative 19955-7) Automated urine urobilinogen kagqudxdqtn1068-22-41 22:33:00 Test Item Value Reference Range Interpretation Comments Urine Urobilinogen (test code = Normal mg/dL 13487126) Urine leukocytes detection by automated bsgpvj3644-98-97 22:33:00 Test Item Value Reference Range Interpretation Comments Urine Leukocyte Esterase (test 250 {Marianna}/uL code = 04752-8) Automated erythrocytes count in urine sediment (number/area)2019-09-24 22:33:00 Test Item Value Reference Range Interpretation Comments Urine RBC (test code = 51804-3) 0-2 /[HPF] Automated leukocytes count in urine sediment (number/area)2019-09-24 22:33:00 Test Item Value Reference Range Interpretation Comments Urine WBC (test code = 33010-5) 10-20 /[HPF] Automated squamous epithelial cells count in urine sediment (number/area) 2019-09-24 22:33:00 Test Item Value Reference Range Interpretation Comments Urine Squamous Epithelial Cells Rare /[LPF] (test code = 26083-2) Automated urine sediment crystal count (number/area)2019-09-24 22:33:00 Test Item Value Reference Range Interpretation Comments Urine Other Crystals (test +/- Rare /[LPF] code = 22380-0) Automated bacteria count in urine sediment (number/area)2019-09-24 22:33:00 Test Item Value Reference Range Interpretation Comments Urine Bacteria (test code = None /[HPF] 22502-0) Automated mucus count in urine sediment (number/area)2019-09-24 22:33:00 Test Item Value Reference Range Interpretation Comments Urine Mucus (test code = 28483-6) +/- /[LPF] Automated urine yeast count (number/area)2019-09-24 22:33:00 Test Item Value Reference Range Interpretation Comments Urine Yeast (Budding) (test code Rare /[HPF] = 07365-3) Service comment 22:33:00 Test Item Value Reference Range Interpretation Comments Urine Culture Indicated Yes, Criteria Met (test code = 8264-4) BASIC METABOLIC [id number] 02:06:00 Test Item Value Reference Range Interpretation [...] CALCIUM (test code = MG/DL 8.7-9.7 CA) [id number] 02:06:00 Test Item Value Reference Range Interpretation Comments MAGNESIUM (test code = MAG) MG/DL 1.6-2.3 BASIC METABOLIC [id number] 02:06:00 Test Item Value Reference Range Interpretation [...] CALCIUM (test code = MG/DL 8.7-9.7 CA) [id number] 02:06:00 Test Item Value Reference Range Interpretation Comments MAGNESIUM (test code = MAG) MG/DL 1.6-2.3 BASIC METABOLIC [id number] 02:06:00 Test Item Value Reference Range Interpretation [...] code = 10.3 MG/DL 8.4-10.2 H CA) [id number] 02:06:00 Test Item Value Reference Range Interpretation Comments MAGNESIUM (test code = MAG) MG/DL 1.6-2.3 BASIC METABOLIC [id number] 02:06:00 Test Item Value Reference Range Interpretation [...] code = 10.3 MG/DL 8.4-10.2 H CA) [id number] 02:06:00 Test Item Value Reference Range Interpretation Comments MAGNESIUM (test code = MAG) 1.7 MG/DL 1.6-2.3 BASIC METABOLIC [id number] 02:03:00 Test Item Value Reference Range Interpretation [...] CALCIUM (test code = CA) MG/DL 8.7-9.7 [id number] 02:03:00 Test Item Value Reference Range Interpretation Comments MAGNESIUM (test code = MAG) MG/DL 1.6-2.3 CBC W/AUTO [id number] 01:51:00 Test Item Value Reference Range Interpretation [...] K/mm3 0.0-0.1 N NRBC#) - XR CHEST [id number] 11:06:00 Patient Name: DEBI GARRETT Unit No: [id number] EXAMS: CPT CODE: [id number] XR CHEST 1V 63610 Site ID: [id number] HISTORY: Pneumothorax COMPARISON: Chest [...] Willie Santana (RT) Transcrpt Date/Tm/Trnsp: 08/10/2019 (1106) PritiAJP6 Orig Print D/T: S: 08/10/2019 (1110) [facility] NAME: DEBI GARRETT [id number] [address] PHYS: [place] [address] : 1935 AGE: 84 SEX: F LOC: Z.SI05 A PHONE #: [phone] EXAM DATE: 08/10/2019 STATUS: ADM IN FAX #: [phone] RADIOLOGY NO: PAGE 1 Signed ReportBASIC METABOLIC [id number] 05:07:00 Test Item Value Reference Range Interpretation [...] code = 10.6 MG/DL 8.4-10.2 H CA) [id number] 05:07:00 Test Item Value Reference Range Interpretation Comments PHOSPHOROUS (test code = PHOS) 3.3 MG/DL 2.5-4.5 N [id number] 05:07:00 Test Item Value Reference Range Interpretation Comments MAGNESIUM (test code = MAG) 2.2 MG/DL 1.6-2.3 BASIC METABOLIC [id number] 05:04:00 Test Item Value Reference Range Interpretation [...] CALCIUM (test code = MG/DL 8.7-9.7 CA) [id number] 05:04:00 Test Item Value Reference Range Interpretation Comments PHOSPHOROUS (test code = PHOS) MG/DL 2.5-4.5 [id number] 05:04:00 Test Item Value Reference Range Interpretation Comments MAGNESIUM (test code = MAG) MG/DL 1.6-2.3 BASIC METABOLIC [id number] 05:01:00 Test Item Value Reference Range Interpretation [...] CALCIUM (test code = CA) MG/DL 8.7-9.7 [id number] 05:01:00 Test Item Value Reference Range Interpretation Comments PHOSPHOROUS (test code = PHOS) MG/DL 2.5-4.5 [id number] 05:01:00 Test Item Value Reference Range Interpretation Comments MAGNESIUM (test code = MAG) MG/DL 1.6-2.3 CBC W/AUTO [id number] 04:48:00 Test Item Value Reference Range Interpretation [...] 0.00 K/mm3 0.0-0.1 N NRBC#) BASIC METABOLIC [id number] 23:31:00 Test Item Value Reference Range Interpretation [...] code = 10.1 MG/DL 8.4-10.2 N CA) [id number] 23:31:00 Test Item Value Reference Range Interpretation Comments MAGNESIUM (test code = MAG) 1.8 MG/DL 1.6-2.3 N BASIC METABOLIC [id number] 23:28:00 Test Item Value Reference Range Interpretation [...] CALCIUM (test code = MG/DL 8.7-9.7 CA) [id number] 23:28:00 Test Item Value Reference Range Interpretation Comments MAGNESIUM (test code = MAG) MG/DL 1.6-2.3 BASIC METABOLIC [id number] 23:25:00 Test Item Value Reference Range Interpretation [...] CALCIUM (test code = CA) MG/DL 8.7-9.7 [id number] 23:25:00 Test Item Value Reference Range Interpretation Comments MAGNESIUM (test code = MAG) MG/DL 1.6-2.3 BASIC METABOLIC [id number] 22:21:00 Test Item Value Reference Range Interpretation [...] code = 9.3 MG/DL 8.4-10.2 N CA) [id number] 22:21:00 Test Item Value Reference Range Interpretation Comments MAGNESIUM (test code = MAG) 1.6 MG/DL 1.6-2.3 N BASIC METABOLIC [id number] 21:36:00 Test Item Value Reference Range Interpretation [...] code = CA) 9.3 MG/DL 8.4-10.2 N [id number] 21:36:00 Test Item Value Reference Range Interpretation Comments MAGNESIUM (test code = MAG) 1.6 MG/DL 1.6-2.3 N BASIC METABOLIC [id number] 21:35:00 Test Item Value Reference Range Interpretation [...] CALCIUM (test code = CA) MG/DL 8.7-9.7 [id number] 21:35:00 Test Item Value Reference Range Interpretation Comments MAGNESIUM (test code = MAG) MG/DL 1.6-2.3 CBC W/AUTO [id number] 21:25:00 Test Item Value Reference Range Interpretation [...] 0.0-0.1 N NRBC#) - MRI BRAIN W/O [id number] 11:43:00 Patient Name: DEBI GARRETT Unit No: [id number] EXAMS: CPT CODE: [id number] MRI BRAIN W/O CONTRAST 54146 CLINICAL INFORMATION: Ataxia. Right internal carotid artery [...] PritiAGV Orig Print D/T: S: 08/09/2019 (1146) [facility] [place] NAME: DEBI GARRETT [address] PHYS: [place] [address] : 1935 AGE: 84 SEX: F LOC: Z.SI05 A PHONE #: [phone] EXAM DATE: 08/09/2019 STATUS: ADM IN FAX #: [phone] RADIOLOGY NO: PAGE 1 Signed ReportURINALYSIS [id number] 22:47:00 Test Item Value Reference Range Interpretation [...] UACULT) Criteria SOURCE OF URINE: STRAIGHT CATHETERURINALYSIS [id number] 22:45:00 Test Item Value Reference Range Interpretation [...] UACULT) SOURCE OF URINE: STRAIGHT CATHETERBASIC METABOLIC [id number] 13:12:00 Test Item Value Reference Range Interpretation [...] code = 9.8 MG/DL 8.4-10.2 N CA) [id number] 13:12:00 Test Item Value Reference Range Interpretation Comments PHOSPHOROUS (test code = PHOS) 2.6 MG/DL 2.5-4.5 N [id number] 13:12:00 Test Item Value Reference Range Interpretation Comments MAGNESIUM (test code = MAG) 2.3 MG/DL 1.6-2.3 N T3,T4 [id number] 13:12:00 Test Item Value Reference Range Interpretation Comments T3 UPTAKE (test code = T3UP) 33.3 % UP 23.5-40.5 N T4 (THYROXINE) (test code = T4) 13.10 UG/DL 5.53-11.0 H T7 (FREE THYROXINE INDEX) (test 4.4 1.2-4.3 H code = T7) THYROID STIMULATING [id number] 13:12:00 Test Item Value Reference Range Interpretation Comments THYROID STIMULATING 3.590 MIU/L 0.465-4.68 N Please b e aware that HORMONE (test code = bias re sults for TSH TSH) may occur forpa tient who are taking Biotin suppleme nts. T4 [id number] 12:43:00 Test Item Value Reference Range Interpretation Comments T4 FREE (test code = T4F) 2.1 NG/DL 0.78-2.19 N BASIC METABOLIC [id number] 12:41:00 Test Item Value Reference Range Interpretation [...] code = 9.8 MG/DL 8.4-10.2 N CA) [id number] 12:41:00 Test Item Value Reference Range Interpretation Comments PHOSPHOROUS (test code = PHOS) 2.6 MG/DL 2.5-4.5 N [id number] 12:41:00 Test Item Value Reference Range Interpretation Comments MAGNESIUM (test code = MAG) 2.3 MG/DL 1.6-2.3 N T3,T4 [id number] 12:41:00 Test Item Value Reference Range Interpretation Comments T3 UPTAKE (test code = T3UP) 33.3 % UP 23.5-40.5 N T4 (THYROXINE) (test code = T4) 13.10 UG/DL 5.53-11.0 H T7 (FREE THYROXINE INDEX) (test 4.4 1.2-4.3 H code = T7) THYROID STIMULATING [id number] 12:41:00 Test Item Value Reference Range Interpretation Comments THYROID STIMULATING HORMONE (test code MIU/L 0.465-4.68 = TSH) CBC W/AUTO [id number] 12:39:00 Test Item Value Reference Range Interpretation [...] 0.00 K/mm3 0.0-0.1 N NRBC#) BASIC METABOLIC [id number] 12:26:00 Test Item Value Reference Range Interpretation [...] code = 9.8 MG/DL 8.4-10.2 N CA) [id number] 12:26:00 Test Item Value Reference Range Interpretation Comments PHOSPHOROUS (test code = PHOS) 2.6 MG/DL 2.5-4.5 N [id number] 12:26:00 Test Item Value Reference Range Interpretation Comments MAGNESIUM (test code = MAG) 2.3 MG/DL 1.6-2.3 N T3,T4 [id number] 12:26:00 Test Item Value Reference Range Interpretation Comments T3 UPTAKE (test code = T3UP) % UP 23.5-40.5 T4 (THYROXINE) (test code = T4) UG/DL 5.53-11.0 T7 (FREE THYROXINE INDEX) (test code = 1.2-4.3 T7) THYROID STIMULATING [id number] 12:26:00 Test Item Value Reference Range Interpretation Comments THYROID STIMULATING HORMONE (test code MIU/L 0.465-4.68 = TSH) BASIC METABOLIC [id number] 12:25:00 Test Item Value Reference Range Interpretation [...] CALCIUM (test code = MG/DL 8.7-9.7 CA) [id number] 12:25:00 Test Item Value Reference Range Interpretation Comments PHOSPHOROUS (test code = PHOS) MG/DL 2.5-4.5 [id number] 12:25:00 Test Item Value Reference Range Interpretation Comments MAGNESIUM (test code = MAG) MG/DL 1.6-2.3 T3,T4 [id number] 12:25:00 Test Item Value Reference Range Interpretation Comments T3 UPTAKE (test code = T3UP) % UP 23.5-40.5 T4 (THYROXINE) (test code = T4) UG/DL 5.53-11.0 T7 (FREE THYROXINE INDEX) (test code = 1.2-4.3 T7) THYROID STIMULATING [id number] 12:25:00 Test Item Value Reference Range Interpretation Comments THYROID STIMULATING HORMONE (test code MIU/L 0.465-4.68 = TSH) BASIC METABOLIC [id number] 12:25:00 Test Item Value Reference Range Interpretation [...] CALCIUM (test code = MG/DL 8.7-9.7 CA) [id number] 12:25:00 Test Item Value Reference Range Interpretation Comments PHOSPHOROUS (test code = PHOS) MG/DL 2.5-4.5 [id number] 12:25:00 Test Item Value Reference Range Interpretation Comments MAGNESIUM (test code = MAG) MG/DL 1.6-2.3 T3,T4 [id number] 12:25:00 Test Item Value Reference Range Interpretation Comments T3 UPTAKE (test code = T3UP) % UP 23.5-40.5 T4 (THYROXINE) (test code = T4) UG/DL 5.53-11.0 T7 (FREE THYROXINE INDEX) (test code = 1.2-4.3 T7) THYROID STIMULATING [id number] 12:25:00 Test Item Value Reference Range Interpretation Comments THYROID STIMULATING HORMONE (test code MIU/L 0.465-4.68 = TSH) BASIC METABOLIC [id number] 12:25:00 Test Item Value Reference Range Interpretation [...] CALCIUM (test code = MG/DL 8.7-9.7 CA) [id number] 12:25:00 Test Item Value Reference Range Interpretation Comments PHOSPHOROUS (test code = PHOS) MG/DL 2.5-4.5 [id number] 12:25:00 Test Item Value Reference Range Interpretation Comments MAGNESIUM (test code = MAG) MG/DL 1.6-2.3 T3,T4 [id number] 12:25:00 Test Item Value Reference Range Interpretation Comments T3 UPTAKE (test code = T3UP) % UP 23.5-40.5 T4 (THYROXINE) (test code = T4) UG/DL 5.53-11.0 T7 (FREE THYROXINE INDEX) (test code = 1.2-4.3 T7) THYROID STIMULATING [id number] 12:25:00 Test Item Value Reference Range Interpretation Comments THYROID STIMULATING HORMONE (test code MIU/L 0.465-4.68 = TSH) BASIC METABOLIC [id number] 12:23:00 Test Item Value Reference Range Interpretation [...] CALCIUM (test code = CA) MG/DL 8.7-9.7 [id number] 12:23:00 Test Item Value Reference Range Interpretation Comments PHOSPHOROUS (test code = PHOS) MG/DL 2.5-4.5 [id number] 12:23:00 Test Item Value Reference Range Interpretation Comments MAGNESIUM (test code = MAG) MG/DL 1.6-2.3 T3,T4 [id number] 12:23:00 Test Item Value Reference Range Interpretation Comments T3 UPTAKE (test code = T3UP) % UP 23.5-40.5 T4 (THYROXINE) (test code = T4) UG/DL 5.53-11.0 T7 (FREE THYROXINE INDEX) (test code = 1.2-4.3 T7) THYROID STIMULATING [id number] 12:23:00 Test Item Value Reference Range Interpretation Comments THYROID STIMULATING HORMONE (test code MIU/L 0.465-4.68 = TSH) BASIC METABOLIC [id number] 12:22:00 Test Item Value Reference Range Interpretation [...] CALCIUM (test code = CA) MG/DL 8.7-9.7 [id number] 12:22:00 Test Item Value Reference Range Interpretation Comments PHOSPHOROUS (test code = PHOS) MG/DL 2.5-4.5 [id number] 12:22:00 Test Item Value Reference Range Interpretation Comments MAGNESIUM (test code = MAG) MG/DL 1.6-2.3 T3,T4 [id number] 12:22:00 Test Item Value Reference Range Interpretation Comments T3 UPTAKE (test code = T3UP) % UP 23.5-40.5 T4 (THYROXINE) (test code = T4) UG/DL 5.53-11.0 T7 (FREE THYROXINE INDEX) (test code = 1.2-4.3 T7) THYROID STIMULATING [id number] 12:22:00 Test Item Value Reference Range Interpretation Comments THYROID STIMULATING HORMONE (test code MIU/L 0.465-4.68 = TSH) - XR HIP W/PEL UNI 2+V [id number] 11:43:00 Patient Name: DEBI GARRETT Unit No: [id number] EXAMS: CPT CODE: [id number] XR HIP W/PEL UNI 2+V RT 00092 EXAM: - XR HIP W/PEL UNI 2+V [...] Guevara MD CC: Poli Aaron; Jana Acosta SPECIALTY FINISHING UTILITY PERSON Technologist: Britney Myers RT (R) Transcrpt Date/Tm/Trnsp: 08/08/2019 (1143) t.SDR.KW9 Orig Print D/T: S: 08/08/2019 (1143) [facility] NAME: DEBI GARRETT [id number] PHYS: DUSTY.[place] [address] : 1935 AGE: 84 SEX: F LOC: Z.SI05 A PHONE #: [phone] EXAM DATE: 08/08/2019 STATUS: ADM IN FAX #: [phone] RADIOLOGY NO: PAGE 1 Signed Report- CT HEAD/BRAIN W/O [id number] 11:40:00 Patient Name: DEBI GARRETT Unit No: [id number] EXAMS: CPT CODE: [id number] CT HEAD/BRAIN W/O CONT 44621 EXAMINATION: - CT HEAD/BRAIN W/O CONT. LOCATION: [...] Ever Finney CC: Poli Aaron; Jana Acosta SPECIALTY FINISHING UTILITY PERSON Technologist: Filipe Perez, RT(R) CTDI: DLP: Trnscrpt: 08/08/2019 (1140) t.SDR.ANS4 [facility] NAME: DEBI GARRETT [id number] PHYS: DUSTY.Ric - Karla,[place] [address] : 1935 AGE: 84 SEX: F LOC: Z.SI05 A PHONE #: [phone] EXAM DATE: 08/08/2019 STATUS: ADM IN FAX #: [phone] RAD #: D/C DT PAGE 1 Signed Report Patient Name: DEBI GARRETT Unit No: [id number] EXAMS: CPT CODE: [id number] CT HEAD/BRAIN W/O CONT 36169 (Continued) Orig Print D/T: S: 08/08/2019 (1143) [facility] NAME: DEBI GARRETT [address] PHYS: [place] [address] : 1935 AGE: 84 SEX: F LOC: Z.SI05 A PHONE #: [phone] EXAM DATE: 08/08/2019 STATUS: ADM IN FAX #: [phone] RAD #: D/C DT PAGE 2 Signed Report- XR CHEST 1V 2019-08-08 08:51:00 Patient Name: DEBI GARRETT Unit No: [id number] EXAMS: CPT CODE: [id number] XR CHEST 1V 85573 EXAM: - XR CHEST 1V Location code:B2 [...] in size of small left apical pneumothorax. 2.Mildly worsened left basilar atelectasis or developing infiltrate. at 0851 Reported and signed by: Kathrin Guevara MD CC: Poli Aaron; Jana Acosta SPECIALTY FINISHING UTILITY PERSON Technologist: Octavio Lerner RT(R) Transcrpt Date/Tm/Trnsp: 08/08/2019 (0851) t.JWR.KW9 Orig Print D/T: S: 08/08/2019 (0854) [facility] NAME: DEBI GARRETT [address] PHYS: DUSTY.[place] [address] : 1935 AGE: 84 SEX: F LOC: Z.SI05 A PHONE #: [phone] EXAM DATE: 08/08/2019 STATUS: ADM IN FAX #: [phone] RADIOLOGY NO: PAGE 1 Signed Report ARTERY,[id number] 12:46:00 RUN DATE: 08/07/19 [facility] RUN TIME: 1246 Specimen Inquiry RUN USER: INTERFACE PATIENT: DEBI GARRETT LOC: MYLES U #: [id number] AGE/SX: 84/F ROOM: UmaCOUNTS INCLUDE 234 [facility]EDS AT THE [facility] RE08/06/19[facility] DR: Robi Schroeder MD : 37 BED: A DIS: STATUS: ADM IN TLOC: SPEC #: [id number] RECD: 08/06/19 STATUS: DOV REQ #: [id number] KELLE: 08/06/[address] [facility] [address]: Robi Schroeder MD ENTERED: 08/06/19 SPTYPE: ARTERY, PL OTHR DR: Self Referred Mirella Francis MD, Patricia Q MD Pepper, Gregory S MDORDERED: DECAL, SURG PATH LVL 3, SURG PATH LVL 4 CODES: Q39413 - PLAQUE, NOS Q71442 - ARTERY, NOS C10331 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 ARTERY, NOS - RT CAROTID PLAQUE B. LYMPH NODE, NOS - RT CERVICAL LYMPH NODE CONTINUED ON NEXT PAGE --------- ---RUN DATE: 08/07/19 [facility] - LAB PAGE 2 RUN TIME: 1246 Specimen Inquiry RUN USER: INTERFACE SPEC #: [id number] PATIENT: DEBI GARRETT #[id number] (Continued) CLINICAL HISTORY S/P RIGHT CEA CPT CODES CPT CODE(S): 15037 , 41154 ,56925 , , , , FINAL DIAGNOSIS A. Plaque, right carotid artery, endarterectomy: SEVERE CALCIFIC ATHEROSCLEROSIS B. Lymph node, right cervical, excisional biopsy: MILD TO MODERATE, NONSPECIFIC, REACTIVECHANGE NO SIGNIFICANT ATYPIA, MALIGNANCY, OR ABERRANT POPULATION [...] Right cervical lymph node. Benign lymph node withvariable mild to moderate sinus histiocytosis and minimal paracortical reactive change. No atypical features. /chidi Signed SIGNATURE ON FILE Raffi Henderson 08/07/19 1246 END OF REPORT - XR CHEST [id number] 10:56:00 Patient Name: DEBI GARRETT Unit No: [id number] EXAMS: CPT CODE: [id number] XR CHEST 1V 99705 EXAMINATION: - XR CHEST 1V. LOCATION: B2. [...] t.JWR.PR7 Orig Print D/T: S: 08/07/2019 (1100) [facility] NAME: DEBI GARRETT [address] PHYS: [place] [address] : 1935 AGE: 84 SEX: F LOC: Z.SI01 A PHONE #: [phone] EXAM DATE: 08/07/2019 STATUS: ADM IN FAX #: [phone] RADIOLOGY NO: PAGE 1 Signed ReportBASIC METABOLIC [id number] 06:56:00 Test Item Value Reference Range Interpretation [...] CA) CBN DRAW LEFT TUBES FOR NURSE [id number] 06:56:00 Test Item Value Reference Range Interpretation Comments MAGNESIUM (test code = MAG) 1.8 MG/DL 1.6-2.3 N CBN DRAW LEFT TUBES FOR NURSE ROSIEBASIC METABOLIC [id number] 06:55:00 Test Item Value Reference Range Interpretation [...] CA) CBN DRAW LEFT TUBES FOR NURSE [id number] 06:55:00 Test Item Value Reference Range Interpretation Comments MAGNESIUM (test code = MAG) MG/DL 1.6-2.3 CBN DRAW LEFT TUBES FOR NURSE ROSIEBASIC METABOLIC [id number] 06:53:00 Test Item Value Reference Range Interpretation [...] 8.7-9.7 CBN DRAW LEFT TUBES FOR NURSE [id number] 06:53:00 Test Item Value Reference Range Interpretation Comments MAGNESIUM (test code = MAG) MG/DL 1.6-2.3 CBN DRAW LEFT TUBES FOR NURSE ROSIECBC W/AUTO [id number] 06:42:00 Test Item Value Reference Range Interpretation [...] NRBC#) CBN DRAW LEFT TUBES FOR NURSE [facility] METABOLIC [id number] 13:33:00 Test Item Value Reference Range Interpretation [...] code = 10.0 MG/DL 8.4-10.2 N CA) [id number] 13:33:00 Test Item Value Reference Range Interpretation Comments MAGNESIUM (test code = MAG) 1.8 MG/DL 1.6-2.3 N BASIC METABOLIC [id number] 13:32:00 Test Item Value Reference Range Interpretation [...] CALCIUM (test code = MG/DL 8.7-9.7 CA) [id number] 13:32:00 Test Item Value Reference Range Interpretation Comments MAGNESIUM (test code = MAG) MG/DL 1.6-2.3 BASIC METABOLIC [id number] 13:30:00 Test Item Value Reference Range Interpretation [...] CALCIUM (test code = CA) MG/DL 8.7-9.7 [id number] 13:30:00 Test Item Value Reference Range Interpretation Comments MAGNESIUM (test code = MAG) MG/DL 1.6-2.3 BASIC METABOLIC [id number] 13:29:00 Test Item Value Reference Range Interpretation [...] CALCIUM (test code = CA) MG/DL 8.7-9.7 [id number] 13:29:00 Test Item Value Reference Range Interpretation Comments MAGNESIUM (test code = MAG) MG/DL 1.6-2.3 CBC W/AUTO [id number] 13:19:00 Test Item Value Reference Range Interpretation [...] K/mm3 0.0-0.1 N NRBC#) - XR CHEST [id number] 13:05:00 Patient Name: DEBI GARRETT Unit No: [id number] EXAMS: CPT CODE: [id number] XR CHEST 1V 56619 Site ID: [id number] HISTORY: Postoperative, right CEA [...] Salcido MD CC: Poli Aaron Technologist: Octavio Lerner RT(R) Transcrpt Date/Tm/Trnsp: 08/06/2019 (1305) t.SDR.AJP6 Orig PrintD/T: S: 08/06/2019 (1308) [facility] NAME: DEBI GARRETT [address] PHYS: [place] [address] : 1935 AGE: 84 SEX: F LOC: Z.SI01 A PHONE #: [phone] EXAM DATE: 08/06/2019 STATUS: ADM IN FAX #: [phone] RADIOLOGY NO: PAGE 1 Signed ReportARTERIAL BLOOD [id number] 13:00:00 Test Item Value Reference Range Interpretation [...] = 50 % COHBGFFIO2) Novel Coronavirus 2019 [id number] 08:07:00 Test Item Value Reference Range Interpretation Comments Novel Coronavirus 2019 Inhouse (test Negative Negative code = COVNONPUI) Novel Coronavirus 2019 [id number] 08:06:00 Test Item Value Reference Range Interpretation Comments Novel Coronavirus 2019 Inhouse (test Negative Negative code = COVNONPUI) HIV 12 AB [id number] 14:28:00 Test Item Value Reference Range Interpretation Comments HIV 1 2 COMBO AG/AB SCREEN AB/AG NON REACTIVE NONREACTIVE (test code = [id number]) BASIC METABOLIC [id number] 13:39:00 Test Item Value Reference Range Interpretation [...] 10.3 MG/DL 8.4-10.2 H CA) BASIC METABOLIC [id number] 13:38:00 Test Item Value Reference Range Interpretation [...] code = MG/DL 8.7-9.7 CA) BASIC METABOLIC [id number] 13:36:00 Test Item Value Reference Range Interpretation [...] code = CA) MG/DL 8.7-9.7 BASIC METABOLIC [id number] 13:35:00 Test Item Value Reference Range Interpretation [...] (test code = CA) MG/DL 8.7-9.7 PROTHROMBIN [id number] 13:32:00 Test Item Value Reference Range Interpretation [...] myocar dial infarction. 2.0 - 3.0 3. Sander Portable Machine al prosthesis hear t valves, recurre nt systemic emboli sm. 3.0 - 4.5 PTT [id number] 13:32:00 Test Item Value Reference Range Interpretation Comments PTT ACTIVATED (test code = APTT) 35.5 SECONDS 25.1-36.5 N CBC W/AUTO [id number] 13:23:00 Test Item Value Reference Range Interpretation [...] 0.0-0.1 N NRBC#) - XR CHEST 2 [id number] 13:16:00 Patient Name: DEBI GARRETT Unit No: [id number] EXAMS: CPT CODE: [id number] XR CHEST 2 V 24651 Site ID: [id number] HISTORY: Preoperative, right carotid endarterectomy FINDINGS: The lungs are clear and normally expanded. The heart and pulmonary vasculature is normal. Previous coronary artery stenting noted. Osseous structures are unremarkable. IMPRESSION: No acute cardiopulmonary finding at 1316 Reported and signed by: Laith Salcido MD CC: Poli Aaron Technologist: Britney Myers RT (R) Transcrpt Date/Tm/Trnsp: 07/29/2019 (7426) [id number] Orig Print D/T: S: 07/29/2019 (7901) [facility] NAME: DEBI GARRETT [address] [address] PHYS: [place] [address] : 1935 AGE: 84 SEX: F LOC: JING PHONE #: [phone] EXAM DATE: 07/29/2019 STATUS: PRE IN FAX #: [phone] RADIOLOGY NO: PAGE 1 Signed ReportBASIC METABOLIC [id number] 06:23:00 Test Item Value Reference Range Interpretation [...] 0-189 mg/dL VERY HIGH.........>/ = 190 mg/dL [id number] 06:23:00 Test Item Value Reference Range Interpretation Comments MAGNESIUM (test code = MAG) 2.2 MG/DL 1.6-2.3 N PROTHROMBIN [id number] 06:16:00 Test Item Value Reference Range Interpretation [...] myocar dial infarction. 2.0 - 3.0 3. Sander Portable Machine al prosthesis hear t valves, recurre nt systemic emboli sm. 3.0 - 4.5 PTT [id number] 06:16:00 Test Item Value Reference Range Interpretation Comments PTT ACTIVATED (test code = APTT) 33.9 SECONDS 25.1-36.5 N BASIC METABOLIC [id number] 06:11:00 Test Item Value Reference Range Interpretation [...] LDL (test MG/DL 0-99 code = LDL) [id number] 06:11:00 Test Item Value Reference Range Interpretation Comments MAGNESIUM (test code = MAG) MG/DL 1.6-2.3 BASIC METABOLIC [id number] 06:11:00 Test Item Value Reference Range Interpretation [...] LDL (test MG/DL 0-99 code = LDL) [id number] 06:11:00 Test Item Value Reference Range Interpretation Comments MAGNESIUM (test code = MAG) 2.2 MG/DL 1.6-2.3 N BASIC METABOLIC [id number] 06:08:00 Test Item Value Reference Range Interpretation [...] LDL (test code = LDL) MG/DL 0-99 [id number] 06:08:00 Test Item Value Reference Range Interpretation Comments MAGNESIUM (test code = MAG) MG/DL 1.6-2.3 CBC W/AUTO [id number] 06:00:00 Test Item Value Reference Range Interpretation [...]
--- NOTE | 2023-01-20 16:39 | RAD REPORT ---
EXAM DESCRIPTION: RAD - Knee Right 3 View - 01/20/2023 4:12 pm CLINICAL HISTORY: PAIN COMPARISON: No comparisons FINDINGS/IMPRESSION: No acute fracture. Small nonspecific knee effusion. Moderate to severe medial c ompartment narrowing. Mild lateral compartment spurring. Mild patellofemoral compartment spurring .
--- NOTE | 2023-01-20 17:26 | EDPHYS ---
Physician Documentation [facility] Name: Leyda Ramos Age: 87 yrs Sex: Female : 1935 Arrival Date: 01/20/2023 Time: 13:53 Bed DIS3 Private MD: ED Physician Lawson Blum HPI: 01/20 17:26 This 87 yrs old Female presents to ER via Wheelchair with complaints of Knee Injury. ec2 17:26 Patient arrives today due to concern for right knee sprain. Patient reports that she ec2 twisted her knee and is not having pain and swelling at the knee. Patient reports no falls or injuries or trauma.. Historical: - Allergies: 14:50 Augmentin; hb 14:50 Bactrim; hb 14:50 Hydrocodone-Acetaminophen; hb 14:50 PENICILLINS; hb - PMHx: 14:50 Chronic pain; pelvic; Hypertension; Hypothyroidism; leaking heart valve; hb Hypercholesterolemia; GERD; depressive disorder; GALLSTONES; chronic kidney disease; chronic kidney disease; chronic kidney disease; - Immunization history:: Adult Immunizations up to date. - Social history:: Smoking status: Patient denies any tobacco usage or history of. ROS: 17:26 Constitutional: as per hpi ec2 Exam: 17:26 Constitutional: GEN: NAD Head: atraumatic Eyes: EOMI Ears: External ears are ec2 normal. CV: regular rate LUNGS: no respiratory distress ABD: non-distended SKIN: no evidence of rashes MSK: no right knee with good range of motion, obvious knee effusion that is ballotable, no deformity present, intact distal neurovascular status. NEURO: moves all extremities equally Vital Signs: 14:49 BP 129 / 92; Pulse 64; Resp 16; Temp 96.9(TE); Pulse Ox 97% on R/A; Weight 52.62 kg; hb Height 4 ft. 11 in. ; Pain 10/10; 14:49 Body Mass Index 23.43 (52.62 kg, 149.86 cm) hb 14:49 Pain Scale: Adult hb MDM: 14:57 Patient medically screened. ec2 17:26 Data reviewed: vital signs. ED course: Patient arrives today due to concern for right ec2 knee injury. Examination remarkable for well-appearing nontoxic dividual is otherwise in no acute distress with a reassuring examination with an obvious knee effusion with no evidence of deformity. Radiograph shows no evidence of bony trauma, suspect ligamentous injury. Will discharge home, return precautions given. Additionally considered other processes such as DVT and cellulitis.. 01/20 14:51 Order name: Knee Right 3 View XRAY; Complete Time: 16:53 hb Administered Medications: No medications were administered Disposition Summary: 01/20/23 17:26 Discharge Ordered Notes: Location: Home ec2 Condition: Stable ec2 Diagnosis - Pain in right knee ec2 - Effusion, right knee ec2 Discharge Instructions: - Discharge Summary Sheet ec2 - Acute Knee Pain, Adult ec2 Forms: - Medication Reconciliation Form ec2 - Thank You Letter ec2 - Antibiotic Education ec2 - Prescription Opioid Use ec2 - Patient Portal Instructions ec2 - Leadership Thank You Letter ec2 Signatures: Dispatcher [employer] Maya Shah, JOSÉ RN Lawson Blum MD MD ec2
--- NOTE | 2023-01-20 17:26 | ER ---
Nurse's Notes [facility] Name: Leyda Ramos Age: 87 yrs Sex: Female : 1935 Arrival Date: 01/20/2023 Time: 13:53 Bed DIS3 Private MD: Diagnosis: Pain in right knee;Effusion, right knee Presentation: 01/20 14:49 Chief complaint: Twisted knee when ambulating with walker yesterday, c/o right knee hb pain 01/02. Coronavirus screen: At this time, the client does not indicate any symptoms associated with coronavirus-19. Ebola Screen: No symptoms or risks identified at this time. Initial Sepsis Screen: Does the patient meet any 2 criteria? No. Patient's initial sepsis screen is negative. Does the patient have a suspected source of infection? No. Patient's initial sepsis screen is negative. Risk Assessment: Do you want to hurt yourself or someone else? Patient reports no desire to harm self or others. Onset of symptoms was January 19, 2023. 14:49 Method Of Arrival: Wheelchair hb 14:49 Acuity: EVELIO 4 hb Historical: - Allergies: 14:50 Augmentin; hb 14:50 Bactrim; hb 14:50 Hydrocodone-Acetaminophen; hb 14:50 PENICILLINS; hb - PMHx: 14:50 Chronic pain; pelvic; Hypertension; Hypothyroidism; leaking heart valve; hb Hypercholesterolemia; GERD; depressive disorder; GALLSTONES; chronic kidney disease; chronic kidney disease; chronic kidney disease; - Immunization history:: Adult Immunizations up to date. - Social history:: Smoking status: Patient denies any tobacco usage or history of. Assessment: 17:15 Reassessment: Dr. Blum discussing results and discharge. jl7 Vital Signs: 14:49 BP 129 / 92; Pulse 64; Resp 16; Temp 96.9(TE); Pulse Ox 97% on R/A; Weight 52.62 kg; hb Height 4 ft. 11 in. ; Pain 10/10; 14:49 Body Mass Index 23.43 (52.62 kg, 149.86 cm) hb 14:49 Pain Scale: Adult hb ED Course: 13:56 Patient arrived in ED. im 14:50 Triage completed. hb 14:51 Arm band placed on. hb 14:57 Lawson Blum MD is Attending Physician. ec2 16:14 Knee Right 3 View XRAY In Process Unspecified. EDMS 17:48 No provider procedures requiring assistance completed. Patient did not have IV access jl7 during this emergency room visit. Administered Medications: No medications were administered Outcome: 17:26 Discharge ordered by . ec2 17:48 Discharged to home via wheelchair, with family, jl7 17:48 Condition: stable 17:48 Discharge instructions given to patient, family, Instructed on discharge instructions, follow up and referral plans. Demonstrated understanding of instructions, follow-up care, 17:48 Patient left the ED. jl7 Signatures: Dispatcher [employer] EDMS Maya Fonseca RN RN Rashad Garvey RN RN jl7 Jimena Stephens Edwin, MD MD ec2
[2023-01-20 17:59] VITALS: BP 129/92; TEMP 96.9; O2SAT 97
== END 2023-01-20 17:48 | disposition home or self-care (01) ==
LOC: ER 13:53
DX: M25.461 Effusion, right knee (principal); Z88.0 Allergy status to penicillin; Z88.1 Allergy status to other antibiotic agents; Z88.5 Allergy status to narcotic agent
CPT/HCPCS: 99282

== ENCOUNTER 2023-01-27 09:25 | Inpatient (IN) | payer OTHER ==
--- OUTSIDE RECORDS SUMMARY | 2023-01-27 09:36 | XMS REPORT | Continuity of Care Document ---
:1935 Author Organization [facility] t Address [address] [facility]. [address] [place] [address] Care Team Providers Name Role Phone SALOME WILSON Primary Care Physician Unavailable Robi Schroeder Attending Clinician Unavailable Kathrin Barrett Attending Clinician Unavailable Debora Marques MA Attending Clinician Unavailable Ruben TURPIN, Adrianna Rojas Attending Clinician Galen TURPIN, Poli Lyman Attending Clinician Chelly Stahl Attending Clinician Unavailable Caden Hamlin RN Attending Clinician Unavailable DIANE CORRIGAN Attending Clinician Unavailable Bethany TURPIN, Nicolas Bullard Attending Clinician Diane Corrigan MD Attending Clinician Zora Landry MD Attending Clinician Emily Reyes RN Attending Clinician Unavailable Marisa Kelsey RN Attending Clinician Unavailable Elidia Chris MA Attending Clinician Unavailable Maryanne Valdovinos Attending Clinician Unavailable Abdullahi Serrano MD Attending Clinician Tyesha Garcia MA Attending [...] nt findings. Medicare Medicare Disease Active Overview: [facility] g of this [facility] yoan visit, visit, 00 note l subsequent subsequent might be different from the original. Patient is , lives independe ntly. She does not have functiona l impairmen t. She is up-to-bryce e with immunizat ions except that she has not received the Tdap. She is up-to-bryce e with [facility] procedure s except for the bone density. Last was in February 2012 with a T score -2.0. 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 Chronic Chronic Disease Active Methodi constipati constipati [...] Active SV 2020-0 [facility] one 14 00:00: [address] sulfamet DA Active SV 2020-0 [facility] hoxazole -14 00:00: [address] trimetho DA Active SV 2020-0 [facility] prim - 00:00: [address] hydrocod DA Active SV allergy 2020-0 [facility] one - 00:00: [address] sulfamet DA Active SV allergy 2020-0 [facility] hoxazole -14 00:00: [address] trimetho DA Active SV allergy 2020-0 [facility] prim -14 00:00: [address] Penicill DA Active U RASH [facility] ins 07-28 Clear 00:00: [facility] Penicill DA Active U [facility] ins 5 West 00:00: [address] Sulfamet Propensi Active Rash 2017-03 Method i hoxazole ty to 0 st -Trimeth adverse 00:00: Hospita oprim reaction 00 l s to drug Penicill Propensi Active Rash 2017-03 Method i ins ty to adverse 00:00: Hospita reaction 00 l s to drug hydrocod DA Active SV [facility] one 10-21 Clear 00:00: [facility] sulfamet DA Active SV [facility] hoxazole 10-21 Clear 00:00: [facility] trimetho DA Active SV [facility] prim 10-21 Clear 00:00: [facility] hydrocod DA Active SV allergy [facility] one 10-21 Clear 00:00: [facility] sulfamet DA Active SV allergy [facility] hoxazole 10-21 Clear 00:00: [facility] trimetho DA Active SV allergy [facility] prim 10-21 Clear 00:00: [facility] Sulfamet Propensi Active Other (See [...] Univers BRANDI-POT 0-19 ity of CLAVULAN 00:00: [address] HYDROCOD DRUG Active Med Other-Cmnt 2014-03 [...] Date Stop Date Source Natural brother Diabetes [facility] Natural daughter Other Method [facility] Natural father Lung cancer [facility] mother [facility] Natural sister Heart disease [facility] Natural son Diabetes [facility] Social History Social Habit Start Date Stop Date Quantity Comments Source Gender identity 2020-10-20 Identifies as Method ist 18:21:27 female gender Hospital (finding) Sexual orientation [facility] Hospital History SDOH University o f Alcohol Std Drinks [place] [facility] History SDOH University o f Alcohol Binge [place] [facility] History SDOH Social Unive rsity of Connections Get [place] Med ical Together Branch History SDOH Social Unive rsity of Connections [facility] Medical Branch History SDOH Social Unive rsity of Connections [place] [facility] Membership Branch History SDOH Social Unive rsity of Connections [place] [facility] Meetings Branch History SDOH 2022-08-14 2022-08-14 1 University o f Alcohol Frequency 00:00:00 00:00:00 [place] [facility] ed[facility] History SDOH Social 2022-08-14 2022-08-14 5 Unive rsity of Connections Phone 00:00:00 00:00:00 [place] [facility] ed[facility] History SDOH Social 2022-08-14 2022-08-14 4 Unive rsity of Connections Living 00:00:00 00:00:00 [place] [facility] History SDOH 2022-08-14 2022-08-14 0 University o f Physical Activity 00:00:00 00:00:00 [place] [facility] DPW Branch History SDOH 2022-08-14 2022-08-14 0 University o f Physical Activity 00:00:00 00:00:00 [place] [facility] MPS Branch History SDOH 2022-08-14 2022-08-14 5 University o f Financial 00:00:00 00:00:00 [place] [facility] History SDOH Food 2022-08-14 2022-08-14 1 Univers ity of Worry 00:00:00 00:00:00 [place] [facility] History SDOH Food 2022-08-14 2022-08-14 1 Univers ity of Scarcity 00:00:00 00:00:00 [place] [facility] History SDOH 2022-08-14 2022-08-14 2 University o f Transport Med 00:00:00 00:00:00 [place] [facility] History SDOH 2022-08-14 2022-08-14 2 University o f Transport Non-Med 00:00:00 00:00:00 [place] [facility] History SDOH 2022-08-14 2022-08-14 2 University o f Housing Unable to 00:00:00 00:00:00 [place] [facility] Pay Branch History SDOH 2022-08-14 2022-08-14 1 University o f Housing Places 00:00:00 00:00:00 [place] [facility]i merissa Lived Branch History SDOH 2022-08-14 2022-08-14 2 University o f Housing Homeless 00:00:00 00:00:00 [facility] dical Last Year Branch Exposure to 2022-08-03 2022-08-13 Not sure University of SARS-CoV-2 (event) 00:00:00 17:27:00 [facility] Alcohol intake 2022-07-06 2022-07-06 Current [facility] 00:00:00 00:00:00 non-drinker of Hospital alcohol (finding) [...] l day) - Reported Cigarette 2021-12-21 2021-12-21 [facility] pack-years 00:00:00 00:00:00 Hospital Tobacco use and 2015-01-13 2015-01-13 Smokeless tobacco Un iversity of exposure 00:00:00 00:00:00 non-user [facility] History of tobacco 1955-06-13 1965-03-10 Cigarette Smoker [facility] use 00:00:00 00:00:00 Hospital Sex Assigned At [birth year] Universit y of 00:00:00 00:00:00 [facility] Smoking Status Start Date Stop Date Source Never smoked tobacco BILL rene (finding) Ex-smoker 2015-01-13 00:00:00 2015-01-13 00:00:00 [facility] Medications Ordered Filled Start Stop Current Ordering Indication Dosage Frequency Signature Comments Components Source Medication Medication Date Date Medication? Clinician (SIG) Name Name pantoprazol 2022- No [id number] 40mg Take 1 Univers e 40 mg EC 5-25 06-25 tablet by ity of tablet 00:00: 04:59 mouth in [place] 00 :00 the Medical morning Branch for 30 days. pantoprazol 2022- No [id number] 40mg Take 1 Univers e 40 mg EC 5-25 06-25 tablet by ity of tablet 00:00: 04:59 mouth in [place] 00 :00 the Medical morning [place] for 30 days. vitamin Yes 1000ug Take 1,000 Un amber B-12 5-24 mcg by ity of (VITAMIN 16:30: mouth [place] B-12) 1,000 45 daily. Medica l mcg tablet Branch DULoxetine Yes 20mg Take 1 Unive rs 20 mg 5-24 capsule by ity of capsule 16:30: mouth in [place] 45 the Medical morning. 2 Branch cap daily carvediloL 2023-0 Yes 3.125mg Take 1 Un amber 3.125 mg 5-24 tablet by ity of tablet 16:30: mouth in [place] [address] the Medical morning Branch and 1 tablet in the evening. Take with meals. pregabalin 2023-0 Yes 100mg Take 1 Univ ers 100 mg 5-24 capsule by ity of capsule 16:30: mouth in [place] [address] the Medical morning Branch and 1 capsule in the evening. clopidogreL 2023-0 Yes 75mg Take 1 Univ ers 75 mg 5-24 tablet by ity of tablet 16:30: mouth in [place] [address] the Medical morning. Branch donepeziL 3-0 Yes 10mg Take 1 Univer s 10 mg 5-24 tablet by ity of tablet 16:30: mouth at [place] [address] bedtime. Medical Branch amLODIPine 3-0 Yes 5mg Take 1 Unive rs 5 mg tablet 5-24 tablet by ity of 16:30: mouth in [place] [address] the Medical morning. Branch isosorbide 3-0 Yes 30mg Take 1 Unive rs dinitrate 5-24 tablet by ity o f 30 mg 16:30: mouth in [place] tablet 45 the Medical morning. Branch levothyroxi 2022-0 Yes 50ug Take 1 Univ ers ne 5-24 tablet by ity of (SYNTHROID) 16:30: mouth in [place] 50 mcg 45 the Medical tablet morning. Branch losartan 2022-0 Yes 100mg Take 1 Univer s (COZAAR) 5-24 tablet by ity of 100 mg 16:30: mouth in [place] tablet 45 the Medical morning. Branch atorvastati 2022-0 Yes 80mg Take 1 Univ ers n 80 mg 5-24 tablet by ity of tablet 16:30: mouth in [place] [address] the Medical morning. Branch vitamin 2023-0 Yes 1000ug Take 1,000 Un amber B-12 5-24 mcg by ity of (VITAMIN 16:30: mouth [place] B-12) 1,000 45 daily. Medica l mcg tablet Branch DULoxetine 3-0 Yes 20mg Take 1 Unive rs 20 mg 5-24 capsule by ity of capsule 16:30: mouth in [place] [address] the Medical morning. 2 Branch cap daily carvediloL 3-0 Yes 3.125mg Take 1 Un amber 3.125 mg 5-24 tablet by ity of tablet 16:30: mouth in [place] [address] the Medical morning Branch and 1 tablet in the evening. Take with meals. pregabalin 2023-0 Yes 100mg Take 1 Univ ers 100 mg 5-24 capsule by ity of capsule 16:30: mouth in [place] [address] the Medical morning Branch and 1 capsule in the evening. clopidogreL 2023-0 Yes 75mg Take 1 Univ ers 75 mg 5-24 tablet by ity of tablet 16:30: mouth in [place] [address] the Medical morning. Branch donepeziL 2023-0 Yes 10mg Take 1 Univer s 10 mg 5-24 tablet by ity of tablet 16:30: mouth at [place] [address] bedtime. Medical Branch amLODIPine 3-0 Yes 5mg Take 1 Unive rs 5 mg tablet 5-24 tablet by ity of 16:30: mouth in [place] [address] the Medical morning. Branch isosorbide 3-0 Yes 30mg Take 1 Unive rs dinitrate 5-24 tablet by ity o f 30 mg 16:30: mouth in [place] tablet the Medical morning. Branch levothyroxi 3-0 Yes 50ug Take 1 Univ ers ne 5-24 tablet by ity of (SYNTHROID) 16:30: mouth in [place] 50 mcg 45 the Medical tablet morning. Branch losartan 3-0 Yes 100mg Take 1 Univer s (COZAAR) 5-24 tablet by ity of 100 mg 16:30: mouth in [place] tablet the Medical morning. Branch atorvastati 3-0 Yes 80mg Take 1 Univ ers n 80 mg 5-24 tablet by ity of tablet 16:30: mouth in [place] [address] the Medical morning. Branch thyroid 15 3-0 2022- No 15mg Take 1 Univ ers mg tablet 5-24 05-24 tablet by ity of 12:48: 00:00 mouth in [place] 57 :00 the Medical morning. Branch fenofibrate 2023-0 3- No 54mg Take 1 Uni vers (TRICOR) 54 5-24 05-24 tablet by it y of mg tablet 12:48: 00:00 mouth in [facility] as 57 :00 the Medical morning. Branch hydroCHLORO 2023-0 3- No 12.5mg Take 1 U nivers thiazide 5-24 05-24 capsule by ity of 12.5 mg 12:48: 00:00 mouth in [place] capsule 57 :00 the Medical morning. Branch hydralAZINE Yes 10mg 10 mg, Univ ers (APRESOLINE - Slow IV ity o f ) injection 02:08: Push, [place] 10 mg 51 Q4HPRN, Medical Starting Branch on Sun08/15/22 at 2108, Until Discontinu ed, Routine, DBP=>10 0; SBP=>160 ampicillin 2022-0 2022- No [id number] 500mg Take 1 Univers 500 mg 08-16 capsule by ity of capsule 00:00: 04:59 mouth [place] 00 :00 every 6 Medical (six) Branch hours for 3 days. ampicillin 2022-2022- No [id number] 500mg Take 1 Univers 500 mg 08-16- [...] of 1,000 mg in 00:00: 23:59 Piggyback, [place] NaCl 0.9% 00 :00 Q24H ABX, Medic [...] dose Medi merissa 40 mg on Sun [place] 08/14/22 at 0900, Until Discontinu ed, Routine isosorbide 2022-0 Yes 30mg 30 mg, Unive rs dinitrate 08-14 Oral, ity of (ISORDIL) 14:00: DAILY, [place] tablet 30 00 First dose Medi merissa mg on Sun [place] 08/14/22 at 0900, Until Discontinu ed, Routine losartan 2022-0 Yes 100mg 100 mg, Unive rs (COZAAR) 08-14 Oral, ity of tablet 100 14:00: DAILY, [place] mg 00 First dose Medical on [facility] 08/14/22 at 0900, Until Discontinu ed, Routine DULoxetine 2022-0 Yes 20mg 20 mg, Unive rs (CYMBALTA) 08-14 Oral, ity of capsule 20 14:00: DAILY, [place] mg 00 First dose Medical on [facility] 08/14/22 at 0900, Until Discontinu ed, Routine clopidogreL 0 Yes 75mg 75 mg, Univ ers (PLAVIX) 75 08-14 Oral, ity of mg tablet 14:00: DAILY, [place] 75 mg 00 First dose Medical on [facility] 08/14/22 at 0900, Until Discontinu ed, Routine atorvastati 0 Yes 80mg 80 mg, Univ ers n (LIPITOR) 08-14 Oral, ity of tablet 80 14:00: DAILY, [place] mg 00 First dose Medical on [facility] 08/14/22 at 0900, Until Discontinu ed, Routine amLODIPine 2022-0 Yes 5mg 5 mg, Univer s (NORVASC) 08-14 Oral, ity of tablet 5 mg 14:00: DAILY, [place] 00 First dose Medical on [facility] 08/14/22 at 0900, Until Discontinu ed, Routine enoxaparin 2022-0 Yes 40mg 40 mg, Unive rs (LOVENOX) 08-14 Subcutaneo ity of injection 14:00: [place], [place]ILY, [place] 40 mg 00 First dose Medical on [facility] 08/14/22 at 0900, Until Discontinu ed, Routine hydroCHLORO 2022-0 202- No 12.5mg 12.5 mg, Univers thiazide 08-14 Oral, ity of (ESIDRIX) 14:00: 15:48 DAILY, [place] tablet 12.5 00 :16 First dose Me dical mg on [facility] 08/14/22 at 0900, Until Discontinu ed pregabalin Yes 100mg 100 mg, Uni vers (LYRICA) 08-14 Oral, BID, ity o f capsule 100 13:00: First dose [place] mg 00 on [facility] 08/14/22 at Branch 0800, Until Discontinu ed, Routine carvediloL Yes 3.125mg 3.125 mg, Univers (COREG) 08-14 Oral, BID ity of tablet 13:00: MEALS, [place] 3.125 mg 00 First dose Medic al on [facility] 08/14/22 at 0800, Until Discontinu ed, Routine levothyroxi Yes 50ug 50 mcg, Uni vers ne 08-14 Oral, ity of (SYNTHROID) 11:00: QAM-0600, [place] tablet 50 00 First dose Medi merissa mcg on [facility] 08/14/22 at 0600, Until Discontinu ed, Routine gabapentin 2022- No 600mg Take 2 Uni vers (NEURONTIN) 08-14 capsules ity of 300 mg 02:57: 00:00 by mouth [place] capsule 12 :00 in the Medical morning Branch and 2 capsules in the evening. linaCLOtide 2022- No 145ug Take 1 Un amber 145 mcg 08-14 capsule by ity o f capsule 02:57: 00:00 mouth in [place] 12 :00 the Medical morning. Branch acidophilus 2022- No 1{capsu Take 1 Cap Univers -pectin, 08-14 le} by mouth ity of citrus 100 02:57: 00:00 daily. [place] million 12 :00 Medical cell-10 mg Branch Cap coenzyme 2022-2022- No 100mg Take 1 Unive rs Q10 100 mg 08-14 capsule by it y of softgel 02:57: 00:00 mouth in [place] 12 :00 the Medical morning. Branch multivit-mi [...] IV Push, ity of (PF)) 02:29: Q6HPRN, [place] injection 4 01 Starting Medi merissa mg on [facility] 08/13/22 at 2128, Until Discontinu ed, Routine, Nausea and Vomiting (N/V) acetaminoph Yes 650mg 650 mg, Un amber en 08-14 Oral, ity of (TYLENOL) 02:28: Q6HPRN, [place] tablet 650 39 Starting Medic al mg on [facility] 08/13/22 at 2127, Until Discontinu ed, Routine, Pain (scale 1-3) iopamidol 2022- No [id number] 100mL 100 mL, Univers (ISOVUE 08-14 Intravenou ity o f 370-500 mL) 02:00: 02:00 s, ONCE, 1 [place] injection 00 :00 dose, On Medica l 100 mL [facility] 08/13/22 at 2100, Routine cloNIDine 2022- No .1mg 0.1 mg, Univ ers (CATAPRES) 08-14 Oral, ity of tablet 0.1 00:15: 00:30 ONCE, 1 [place] as mg 00 :00 dose, On Medical Sun Branch 08/13/22 at 1915, STAT cefTRIAXone 2022-2022- No 1000mg 1,000 mg, Univers (ROCEPHIN) 08-14-22 IV ity of 1,000 mg in 00:00: 00:45 Piggyback, [place] NaCl 0.9% 00 :00 ONCE, 1 Medical (NS) 100 mL dose, On Bran ch MINI-BAG [place] 08/13/22 at 1900, Administer over 30 Minutes, 100 mL
Reas on for Anti-Infec tive: Empiric Non-Surgic al Prophylaxi s
Durat ion of therapy: 72 hours NaCl 0.9% 2022- No 500mL at 999 Univ ers (NS) bolus 08-13-22 mL/hr, 500 it y of infusion 23:15: 01:00 mL, IV [place] 500 mL 00 :00 Infusion, Medical ONCE, 1 Branch dose, On [place] 08/13/22 at 1815, STAT fluticasone 2022-0 Yes [id number] SPRAY 2 Methodi propionate 5-[address] (FLONASE) 00:00: INTO EACH Hos yoan 50 00 NOSTRIL l mcg/actuati EVERY DAY on nasal spray fluticasone 2022-0 Yes [id number] SPRAY 2 Methodi propionate 5-[address] (FLONASE) 00:00: INTO EACH Hos yoan 50 00 NOSTRIL l mcg/actuati EVERY DAY on nasal spray fluticasone 2022-0 Yes [id number] SPRAY 2 Methodi propionate 5-[address] [...] B-12, 22 l (VITAMIN B-12 ORAL) hydroCHLORO 2022-0 Yes 12.5mg QD Take 1 Me thodi thiazide 3-[address] (HYDRODIURI 14:59: (12.5 mg Ho spita L) 12.5 MG 22 total) by l tablet mouth every morning. clopidogrel 2022-0 Yes 75mg QD Take 75 mg Methodi (PLAVIX) 75 1-[address] mg tablet 13:35: daily. Hospit a 01 l isosorbide 2022-0 Yes 30mg QD Take 30 mg M ethodi mononitrate 1-[address] (IMDUR) 30 13:35: daily. Hospi ta MG 24 hr 01 l tablet carvediloL 2022-0 Yes 3.125mg Q.5D Take 3.125 Methodi (COREG) 1-[address] 3.125 MG 13:35: mouth 2 Hospit a tablet 01 (two) l times a day with meals. donepeziL 2022-0 Yes 5mg QD Take 5 mg Met hodi (ARICEPT) 5 1-[address] MG tablet 13:35: nightly. Hosp dinora 01 l cyanocobala 2022-0 Yes Take by Met hodi min, 1-[address] vitamin 13:35: Hospita B-12, 01 l (VITAMIN B-12 ORAL) hydroCHLORO 2022-0 Yes 12.5mg QD Take 1 Me thodi thiazide 1-[address] (HYDRODIURI 13:35: (12.5 mg Ho spita L) 12.5 MG 01 total) by l tablet mouth every morning. hydroCHLORO 2021-03- No 25mg QD Take 25 mg Methodi thiazide 05-02-[address] (HYDRODIURI 10:02: 00:00 daily. Hos yoan L) 25 MG 43 :00 l tablet hydroCHLORO 2021-03- No 25mg QD Take 25 mg Methodi thiazide -10 04-[address] (HYDRODIURI 10:02: 00:00 daily. [...] 25 MG 43 :00 l tablet amIODarone 2021-03- No 100mg QD Take 100 [...] Hospita tablet 09 :00 daily. l amLODIPine 2021-03- No 5mg QD Take 5 mg M ethodi (NORVASC) 5 05-02- by mouth st mg tablet 10:00: 00:00 daily. Hospi ta 51 :00 l amLODIPine 2021-03 No 5mg QD Take 5 mg M ethodi (NORVASC) 5 203-[address] mg tablet 10:00: 00:00 [...] by l mouth daily. fluticasone 2021-03 Yes [id number] 100ug QD 2 sprays Methodi propionate 05-02 ([address] (FLONASE) 00:00: total) by Hos yoan 50 00 Each Nare l mcg/actuati route on nasal daily. spray losartan 2021-03 Yes 100mg QD Take 1 Method i (COZAAR) 2-[address] 100 MG 00:00: (100 mg Hospita tablet 00 total) by l mouth daily. fluticasone 2021-03 Yes [id number] 100ug QD 2 sprays Methodi propionate 2-07 [...] by l mouth daily. fluticasone 2021-03- No [id number] 100ug QD 2 sprays Methodi propionate 2- 05-15 ([address] (FLONASE) 00:00: 00:00 total) by Ho spita 50 00 :00 Each Nare l mcg/actuati route on nasal daily. spray fluticasone 2021-03- No [id number] 100ug QD 2 sprays Methodi propionate 2-07 05-15 ([address] (FLONASE) 00:00: 00:00 total) by Ho spita 50 00 :00 Each Nare l mcg/actuati route on nasal daily. spray fluticasone 2021-03- No [id number] 100ug QD 2 sprays Methodi propionate 2-07 [...] solution COCONUT OIL 2021-03- No Take by Me thodi ORAL 04-[address] 14:06: 00:00 Hospita 36 :00 l COCONUT OIL 2021-03- No Take by Me thodi ORAL 04-[address] 14:06: 00:00 Hospita 36 :00 l COCONUT OIL 2021-03- No Take by Me thodi ORAL 04-[address] 14:06: 00:00 Hospita 36 :00 l COCONUT OIL 2021-03 No Take by Ut thodi ORAL 04-[address] 14:06: 00:00 Hospita 36 :00 l COCONUT OIL 2021-03 No Take by Ut thodi ORAL 04-[address] 14:06: 00:00 Hospita 36 :00 l oxyCODone-a 2021-03 1{tbl} Q6H Take 1 Methodi [...] 2021-03 1{tbl} Q6H Take 1 Methodi cetaminophe 1-07 11-[address] n 00:00: 05:59 [...] MORNING. pantoprazol 2021-03 Yes TAKE 1 Meth imke e 0-[address] (PROTONIX) 00:00: [...] EC 00 EVERY DAY l tablet levothyroxi 1 Yes TAKE 1 Meth mike ne 0-21 [...] by mouth l tablet every morning. levothyroxi 2-0 2- No 88ug QD Take 1 Met hodi ne 9-30 10-21 tablet (88 st (SYNTHROID) 00:00: 00:00 mcg total) Hospita 88 mcg 00 :00 by mouth l tablet every morning. levothyroxi 2-0 2022- No 88ug QD Take 1 Met hodi ne 12-23 10-21 tablet (88 st (SYNTHROID) 00:00: 00:00 mcg total) Hospita 88 mcg 00 :00 by mouth l tablet every morning. apixaban 2-0 2- No 2.5mg Q.5D Take 2.5 Met hodi [...] 2.5mg Q.5D Take 2.5 Met hodi (ELIQUIS) 12-21-[address] 2.5 mg 10:10: 00:00 mouth 2 Hospita tablet 25 :00 (two) l times a day. apixaban 2021-0 2- No 2.5mg Q.5D Take 2.5 Met hodi (ELIQUIS) 12-21-[address] 2.5 mg 10:10: 00:00 mouth 2 Hospita tablet 25 :00 (two) l times a day. clopidogrel 2021-0 Yes 75mg QD Take 75 mg Methodi (PLAVIX) 75 12-[address] mg tablet 09:45: daily. Hospit a 48 l losartan 2022-0 Yes 100mg QD Take 100 Meth [...] MG 24 hr 48 l tablet hydroCHLORO 2022-0 Yes 25mg QD Take 25 mg Methodi [...] Take 5 mg Met hodi (ARICEPT) 5 - by mouth st MG tablet 09:45: nightly. Hosp dinora 48 l cyanocobala 0 Yes Take by Met hodi min, 12-[address] vitamin 09:45: Hospita B-12, 48 l (VITAMIN B-12 ORAL) COCONUT OIL Yes Take by Met hodi ORAL 12-[address] 09:45: Hospita 48 l pantoprazol 2021-0 2021- No TAKE 1 Met [...] :00 EVERY DAY l tablet latanoprost 2021-0 2021- No Metho di (XALATAN) 7-15 07-15 st 0.005 % 11:20: 00:00 Hospita ophthalmic 36 :00 l solution latanoprost 2021-0 2- No Metho di (XALATAN) 7-15 07-15 st 0.005 % 11:20: 00:00 Hospita ophthalmic 36 :00 l solution latanoprost 2-0 2- No Metho di (XALATAN) 7-15 07-15 st 0.005 % 11:20: 00:00 Hospita ophthalmic 36 :00 l solution latanoprost 2-0 2- No Metho di (XALATAN) 7-15 07-15 st [...] MG EC 00 :00 l tablet pantoprazol 2021-0 2021- No 20mg QD Take 20 mg Methodi e [address] (PROTONIX) 00:00: 00:00 [...] 00 total) by l mouth daily. valACYclovi 2-0 Yes 500mg QD Take 1 Met hodi r (VALTREX) 3-[address] 500 MG 00:00: (500 mg Hospita tablet 00 total) by l mouth daily. valACYclovi 2-0 2022- No 500mg QD Take 1 Me thodi r (VALTREX) 3-30 02-[address] 500 MG 00:00: 00:00 (500 mg Hospita tablet 00 :00 total) by l mouth daily. valACYclovi 2022-0 2022- No 500mg QD Take 1 Me thodi r (VALTREX) 3-30 - tablet st 500 MG 00:00: 00:00 (500 mg Hospita tablet 00 :00 total) by l mouth daily. valACYclovi 2-0 2022- No 500mg QD Take 1 Me thodi r (VALTREX) 3-30 - tablet st 500 MG 00:00: 00:00 (500 mg Hospita tablet 00 :00 total) by l mouth daily. valACYclovi 2021- No 500mg QD Take 1 Me thodi r (VALTREX) 06-[address] 500 MG 00:00: 00:00 (500 mg Hospita tablet 00 :00 total) by l mouth daily. valACYclovi 2021- No 500mg QD Take 1 Me thodi r (VALTREX) 06-[address] 500 MG 00:00: 00:00 (500 [...] No Take 1 tab Methodi r (VALTREX) 04-04-[address] 500 MG 00:00: 00:00 days prn Hospit a tablet 00 :00 outbreak l valACYclovi 2021- No Take 1 tab Methodi r (VALTREX) 04-04-[address] 500 MG 00:00: 00:00 days prn Hospit a tablet 00 :00 outbreak l pregabalin 2021- No 50mg [id number] Take 50 mg Methodi (LYRICA) 50 03-31 [id number] by mouth 3 st MG capsule 09:42: [...] QD Take 1 Meth mike (LYRICA) 50 -06 -[address] MG capsule 00:00: 05:59 (50 mg Hosp dinora 00 :00 total) by l mouth nightly. levothyroxi 2020-03- No TAKE 1 Met hodi ne 2- TABLET BY st (SYNTHROID) 00:00: 00:00 MOUTH [...] #3) 300-30 mg per tablet diclofenac Yes [id number] APPLY 2 Methodi (VOLTAREN) 4-[address] 1 % gel 00:00: RIGHT KNEE Hosp dinora 00 4 TIMES A l DAY NEEDED FOR PAIN diclofenac 2021- No [id number] APPLY 2 Methodi (VOLTAREN) 4-26 11-[address] 1 % gel 00:00: 00:00 RIGHT KNEE Hos yoan 00 :00 4 TIMES A l DAY NEEDED FOR PAIN diclofenac 2021- No [id number] APPLY 2 Methodi (VOLTAREN) 4-26 11-[address] 1 % gel 00:00: 00:00 RIGHT KNEE Hos yoan 00 :00 4 TIMES A l DAY NEEDED FOR PAIN diclofenac 2021- No [id number] APPLY 2 Methodi (VOLTAREN) 4-26 11-[address] 1 % gel 00:00: 00:00 RIGHT KNEE Hos yoan 00 :00 4 TIMES A l DAY NEEDED FOR PAIN diclofenac 2021- No [id number] APPLY 2 Methodi (VOLTAREN) 4-26 11-[address] 1 % gel 00:00: 00:00 RIGHT KNEE Hos yoan 00 :00 4 TIMES A l DAY NEEDED FOR PAIN diclofenac 2021- No [id number] APPLY 2 Methodi (VOLTAREN) 426 11-[address] 1 % gel 00:00: 00:00 RIGHT KNEE Hos yoan 00 :00 4 TIMES A l DAY NEEDED FOR PAIN potassium 2019-03- No TAKE 1 Metho di chloride 0-12 03-[address] (K-DUR) 20 00:00: 00:00 MOUTH Hospi ta MEQ CR 00 :00 EVERY DAY l tablet Apixaban 0 No 2.5mg [facility] (Eliquis) 09-24 st 2.5 Mg TAB 12:37: [place] 00 na LIVE HCIS Apixaban 2019-0 No 2.5mg Twice A ANNIKA [...] 1{tbl} QD Chew 1 Metho di carbonate-v -26 07-[address] itamin D3 00:00: 00:00 [...] (800 unit) tablet,chew able Atorvastati No 80mg [place] Calcium [facility] [...] TAB na LIVE HCIS Levothyroxi No 75ug [place] Sodium st (Synthroid) [place] 75 Mcg na LIVE TABLET HCIS Potassium No [address] (K-Dur) 20 [place] Meq TABCR na LIVE HCIS Atorvastati No 80mg CHRISTU n Calcium S [...] Health Meq TABCR Immunizations Ordered Immunization Filled Date Status Comments Sour ce Name Immunization Name [facility] 2022-01-19 Completed [facility]ist 00:00:00 [facility] 2022-01-19 Completed Sabianist 00:00:00 [facility] 2022-01-19 Completed Sabianist 00:00:00 [facility] FLUZONE HIGH-DOSE PF 2021-12-15 Completed Meth odist 00:00:00 Hospital FLUZONE HIGH-DOSE PF 2021-12-15 Completed Meth odist 00:00:00 [facility] FLUZONE HIGH-DOSE PF 2021-12-15 Completed Meth odist 00:00:00 [facility] FLUZONE HIGH-DOSE PF 2021-03-31 Completed Meth odist 00:00:00 [facility] FLUZONE HIGH-DOSE PF 2021-03-31 Completed Meth odist 00:00:00 [facility] FLUZONE HIGH-DOSE PF 2021-03-31 Completed Meth odist 00:00:00 [facility] FLUZONE HIGH-DOSE PF 2021-03-31 Completed Meth odist 00:00:00 [facility] COVID19 2021-02-02 Completed Methodis t MRNA VACCINATION 00:00:00 [facility] BIANCA19 2021-02-02 Completed Method[facility] t MRNA VACCINATION 00:00:00 [facility] COVID19 2021-02-02 Completed Methodis t MRNA VACCINATION 00:00:00 [facility] COVID19 2021-02-02 Completed Methodis t MRNA VACCINATION 00:00:00 [facility] FLUZONE HIGH-DOSE PF 2020-12-21 Completed Meth odist 00:00:00 [facility] FLUZONE HIGH-DOSE PF 2020-12-21 Completed Meth odist 00:00:00 [facility] FLUZONE HIGH-DOSE PF 2020-12-21 Completed Meth odist 00:00:00 [facility] FLUZONE HIGH-DOSE PF 2020-12-21 Completed Meth odist 00:00:00 [facility] COVID19 2020-05-27 Completed Methodis t MRNA VACCINATION 00:00:00 [facility] COVID19 2020-05-27 Completed Methodis t MRNA VACCINATION 00:00:00 [facility] COVID19 2020-05-27 Completed Methodis t MRNA VACCINATION 00:00:00 [facility] COVID19 2020-05-27 Completed Methodis t MRNA VACCINATION 00:00:00 [facility] COVID19 2020-05-27 Completed Methodis t MRNA VACCINATION 00:00:00 [facility] COVID19 2020-05-27 Completed [facility]INATION 00:00:00 [facility] 2020-05-27 Completed Methodis t MRNA VACCINATION 00:00:00 [facility] Com[facility] Method[facility] t MRNA VACCINATION 00:00:00 [facility] 2020-05-01 Completed Methodis t MRNA VACCINATION 00:00:00 [facility] 2020-05-01 Completed Method[facility] t MRNA VACCINATION 00:00:00 [place] [id number] 2020-05-01 Completed Methodis t MRNA VACCINATION 00:00:00 [place] [id number] 2020-05-01 Completed Methodis t MRNA VACCINATION 00:00:00 [facility] 2020-05-01 Completed Methodis t MRNA VACCINATION 00:00:00 [place] [id number] 2020-05-01 Completed Methodis t MRNA VACCINATION 00:00:00 [facility] 2020-05-01 Completed Methodis t MRNA VACCINATION 00:00:00 [facility] FLUZONE HIGH-DOSE PF 2019-11-25 Completed Meth odist 00:00:00 [facility] Pneumococcal 2019-11-25 Completed [facility] Polysaccharide 00:00:00 [facility] FLUZONE HIGH-DOSE PF 2019-11-25 Completed Meth odist 00:00:00 [facility] Pneumococcal 2019-11-25 Completed [facility] Polysaccharide 00:00:00 [facility] FLUZONE HIGH-DOSE PF 2019-11-25 Completed Meth odist 00:00:00 [facility] Pneumococcal 2019-11-25 Completed [facility] Polysaccharide 00:00:00 [facility] FLUZONE HIGH-DOSE PF 2019-11-25 Completed Meth odist 00:00:00 [facility] Pneumococcal 2019-11-25 Completed [facility] Polysaccharide 00:00:00 Hospital Td, Unspecified 2018-01-20 Completed [facility] 00:00:00 Hospital Td, Unspecified 2018-01-20 Completed [facility] 00:00:00 Hospital Td, Unspecified 2018-01-20 Completed [facility] 00:00:00 Hospital Td, Unspecified 2018-01-20 Completed [facility]ist 00:00:00 [facility] FLUZONE HIGH-DOSE PF 2017-11-08 Completed Meth odist 00:00:00 [facility] FLUZONE HIGH-DOSE PF 2017-11-08 Completed [...] Meth odist 00:00:00 Hospital Pneumococcal 2015-05-26 Completed [facility]ist Conjugate 13-Valent 00:00:00 Hospi nicolas Pneumococcal 2015-05-26 Completed [facility] Conjugate 13-Valent 00:00:00 Hospi nicolas Pneumococcal 2015-05-26 Completed [facility] Conjugate 13-Valent 00:00:00 Hospi nicolas Pneumococcal 2015-05-26 Completed [facility] Conjugate 13-Valent 00:00:00 Hospi nicolas Influenza Trivalent [...] Meth odist 00:00:00 Hospital Zoster 2014-02-03 Completed [facility] 00:00:00 Hospital Zoster 2014-02-03 Completed [facility] 00:00:00 Hospital Zoster 2014-02-03 Completed [facility] 00:00:00 Hospital Zoster 2014-02-03 Completed [facility] 00:00:00 Hospital Influenza Trivalent 2013-12-17 Completed Metho [...] Influenza Trivalent 2012-12-10 Completed Metho dist 00:00:00 [facility] TD (ADULT), 5 2008-07-29 Completed Methodis t TETANUS TOXOID, 00:00:00 Hospital PRESERVATIVE FREE, ABSORBED TD (ADULT), 5 2008-07-29 Completed Methodis t TETANUS TOXOID, 00:00:00 Hospital PRESERVATIVE FREE, ABSORBED TD (ADULT), 5 2008-07-29 Completed Methodis t TETANUS TOXOID, 00:00:00 Hospital PRESERVATIVE FREE, ABSORBED TD (ADULT), 5 2008-07-29 Completed Methodis t TETANUS TOXOID, 00:00:00 Hospital PRESERVATIVE FREE, ABSORBED Pneumococcal 2001-03-06 Completed [facility] Polysaccharide 00:00:00 Hospital Pneumococcal 2001-03-06 Completed [facility] Polysaccharide 00:00:00 Hospital Pneumococcal 2001-03-06 Completed [facility] Polysaccharide 00:00:00 Hospital Pneumococcal 2001-03-06 Completed [facility] Polysaccharide 00:00:00 Hospital Influenza Trivalent Unknown Completed [facility] Hospital Influenza Trivalent Unknown Completed [facility] Hospital Pneumococcal Unknown Completed [facility] Conjugate 13-Valent Hospi nicolas Pneumococcal Unknown Completed [facility] Polysaccharide Hospital TD (ADULT), 5 Unknown Completed Method[facility] t TETANUS TOXOID, Hospital PRESERVATIVE FREE, ABSORBED Zoster Unknown Completed [facility] Influenza Trivalent Unknown Completed [facility] FLUZONE HIGH-DOSE PF Unknown Completed [facility] FLUZONE HIGH-DOSE PF Unknown Completed [facility] Pneumococcal Unknown Completed [facility] COVID-19 Unknown Completed Methodis t MRNA VACCINATION [facility] COVID-19 Unknown Completed Method[facility] t MRNA VACCINATION [facility] FLUZONE HIGH-DOSE PF Unknown Completed [facility] FLUZONE HIGH-DOSE PF Unknown Completed [facility] Td, Unspecified Unknown Completed [facility] COVID-19 Unknown Completed [facility]is t MRNA VACCIN[facility] COVID- Unknown Completed Methodis t MRNA VACCINATION [facility] FLUZONE HIGH-DOSE PF Unknown Completed [facility] COVID- Unknown Completed Methodis t MRNA VACCINATION [facility] FLUZONE HIGH-DOSE PF Unknown Completed [facility] FLUZONE HIGH-DOSE PF Unknown Completed [facility] FLUZONE HIGH-DOSE PF Unknown Completed [facility] FLUZONE HIGH-DOSE PF Unknown Completed [facility] Tdap Unknown Completed [facility] Influenza Trivalent Unknown Completed [facility] Influenza Trivalent Unknown Completed [facility] Pneumococcal Unknown Completed [facility] Conjugate 13-Valent [facility] Pneumococcal Unknown Completed [facility] TD (ADULT), 5 LF Unknown Completed [facility] TETANUS TOXOID, Hospital PRESERVATIVE FREE, ABSORBED Zoster Unknown Completed [facility] Influenza Trivalent Unknown Completed [facility] FLUZONE HIGH-DOSE PF Unknown Completed [facility] FLUZONE HIGH-DOSE PF Unknown Completed [facility] Pneumococcal Unknown Completed [facility] COVID-19 Unknown Completed [facility] t MRNA VACCIN[facility] COVID- Unknown Completed [facility] MRNA VACCINATION [facility] FLUZONE HIGH-DOSE PF Unknown Completed [facility] FLUZONE HIGH-DOSE PF Unknown Completed [facility] Td, Unspecified Unknown Completed [facility] COVID-19 Unknown Completed [facility] t MRNA VACCIN[facility] COVID-19 Unknown Completed [facility] t MRNA VACCINATION [facility] FLUZONE HIGH-DOSE PF Unknown Completed [facility] COVID-19 Unknown Completed Methodis t MRNA VACCINATION [facility] FLUZONE HIGH-DOSE PF Unknown Completed [facility] FLUZONE HIGH-DOSE PF Unknown Completed [facility] FLUZONE HIGH-DOSE PF Unknown Completed [facility] FLUZONE HIGH-DOSE PF Unknown Completed [facility] Tdap Unknown Completed [facility] Vital Signs Vital Name Observation Time Observation Value Comments Source Oxygen saturation in 2022-08-16 20:47:00 96 /min [facility] Arterial blood by [facility] Pulse oximetry Branch Systolic blood 2022-08-16 20:47:00 102 mm[Hg] [facility] Diastolic blood 2022-08-16 20:47:00 49 mm[Hg] [facility] Heart rate 2022-08-16 20:47:00 61 /min [facility] Body temperature 2022-08-16 20:47:00 36.33 Constance [facility] Res[facility] rate 2022-08-16 20:47:00 18 /min [facility] Body weight 2022-08-16 09:13:00 51.483 kg [facility] BMI 2022-08-16 09:13:00 21.45 kg/m2 [facility] Body height 2022-08-13 22:34:00 154.9 cm [facility] Systolic blood 2022-03-01 15:41:00 177 mm[Hg] [facility] pressure Diastolic blood 2022-03-01 15:41:00 75 mm[Hg] [facility] pressure Heart rate 2022-03-01 15:41:00 53 /min [facility] Body temperature 2022-03-01 15:41:00 36.72 Constance [facility] Body height 2022-03-01 15:41:00 152.4 cm [facility] Body weight 2022-03-01 15:41:00 52.708 kg [facility] BMI 2022-03-01 15:41:00 22.69 kg/m2 [facility] Oxygen saturation in 2022-03-01 15:41:00 96 /min [facility] Arterial blood by Pulse oximetry Respiratory rate 2022-01-30 19:19:00 20 /min [facility] Systolic blood 2021-12-21 15:38:00 174 mm[Hg] [facility] pressure Diastolic blood 2021-12-21 15:38:00 66 mm[Hg] [facility] pressure Heart rate 2021-12-21 14:42:00 60 /min [facility] Body temperature 2021-12-21 14:42:00 36.33 Constance [facility] Respiratory rate 2021-12-21 14:42:00 16 /min [facility] Body height 2021-12-21 14:42:00 152.4 cm [facility] Body weight 2021-12-21 14:42:00 52.164 kg [facility] BMI 2021-12-21 14:42:00 22.46 kg/m2 [facility] Oxygen saturation in 2021-12-21 14:42:00 98 /min [facility] Arterial blood by Pulse oximetry Body Temperature 2019-09-25 11:40:00 97.2 [degF] [facility] Heart Rate 2019-09-25 11:40:00 63 /min [facility] [place] Respiratory rate 2019-09-25 11:40:00 18 /min [facility] BP Systolic 2019-09-25 11:40:00 94 mm[Hg] [facility] BP Diastolic 2019-09-25 11:40:00 43 mm[Hg] [facility] Weight 2019-09-25 06:07:00 122 [lb_av] [facility] [employer] BMI (Body Mass 2019-09-25 06:07:00 24.6 kg/m2 [facility] Health Index) Heart Rate 2019-09-25 03:06:00 87 /min [facility] Respiratory rate 2019-09-25 03:06:00 21 /min Identify BP Systolic 2019-09-25 03:06:00 160 mm[Hg] [facility] BP Diastolic 2019-09-25 03:06:00 93 mm[Hg] [facility] Procedures Procedure Date / Time Performing Clinician Source Performed COVID-19 (ID NOW RAPID 2022-08-16 15:16:00 Marissa Jackson [facility] TESTING) Medical Branch THYROID STIMULATING 2022-08-14 09:09:00 Diane Corrigan [facility] HORMONE Medical Branch BASIC METABOLIC PANEL (NA, 2022-08-14 09:09:00 Hiram [facility] K, CL, CO2, GLUCOSE, BUN, Medica l Branch CREATININE, CA) CBC WITH DIFF 2022-08-14 09:09:00 Edionwe, [facility] CT ABDOMEN PELVIS W 2022-08-14 01:05:23 Nicolas Sims [facility] URINE CULTURE 2022-08-14 00:15:00 Singer [facility] FREE T4 2022-08-14 00:01:00 Ethan [facility] COMP. METABOLIC PANEL 2022-08-14 00:01:00 Nicolas Sims [facility] ([id number]) [facility] CT CERVICAL SPINE WO 2022-08-13 23:30:19 Nicolas Sims [facility] CONTRAST [facility] CT HEAD WO CONTRAST 2022-08-13 23:29:57 Nicolas Sims [facility] XR CHEST 1 VW 2022-08-13 23:28:52 Nicolas Sims [facility] BLOOD CULTURE SCREEN 2022-08-13 23:13:[address] [facility] TROPONIN I 2022-08-13 23:13:00 Nicolas Sims [facility] SALICYLATE 2022-08-13 23:13:00 Nicolas Sims [facility] ETHANOL 2022-08-13 23:13:00 Nicolas Sims [facility] URINE DRUG (IMMUNOASSAY) - 2022-08-13 23:13:00 Nicolas Sims [facility] COMPREHENSIVE DRUG SCREEN Medica l Branch CBC WITH DIFF 2022-08-13 23:13:00 Nicolas Sims [facility] URINALYSIS 2022-08-13 23:13:00 Nicolas Sims [facility] RAPID INFLUENZA A/B 2022-08-13 23:13:00 Nicolas Sims [facility] N-TERMINAL PRO-BNP 2022-08-13 23:13:00 Nicolas Sims [facility] COVID-19 (ID NOW RAPID 2022-08-13 23:13:00 Nicolas Sims [facility] TESTING) [facility] [place] LAB ONLY COVID 2022-08-13 23:13:00 Nicolas Sims [facility] HB ECG ROUTINE & RHYTHM 2022-08-13 22:48:19 [facility] [place] [facility] 2022-06-21 14:30:00 Adrianna Miranda [facility] ASPIR&/INJ MAJOR JT/BURSA W/O US OPERATION, KNEE, 2022-01-30 17:05:00 Adrianna Miranda H ospital ARTHROSCOPIC POC GLUCOSE 2022-01-30 16:15:00 Adrianna Miranda Ho spital [place] AN ELECTIVE 2022-01-30 15:04:00 Collin Farooq [facility] SUPRAGLOTTIC AIRWAY OPERATION, KNEE, 2022-01-30 14:59:00 Adrianna Miranda ospital ARTHROSCOPIC POC PANEL 2022-01-30 14:11:00 Adrianna Miranda Ho spital MAMMO BREAST SCREEN 2021-12-28 14:46:00 [facility] TOMOSYNTHESIS BILATERAL [place] CBC WITH PLATELET AND 2021-12-22 12:45:00 [facility] DIFFERENTIAL [place] THYROID STIMULATING 2021-12-22 12:45:00 [facility] HORMONE [place] COMPREHENSIVE METABOLIC 2021-12-22 12:45:00 [facility] PANEL [place] URINALYSIS, AUTOMATED WITH 2021-12-22 12:45:00 [facility] MICROSCOPY [place] LIPID PANEL 2021-12-22 12:45:00 [facility] [place] HEMOGLOBIN A1C 2021-12-22 12:45:00 [facility] [place] VITAMIN D 25 HYDROXY LEVEL 2021-12-22 12:45:00 [facility] [place] CBC WITH PLATELET AND 2021-12-22 12:45:00 [facility] DIFFERENTIAL [place] ARTHROCENTESIS 2021-12-21 13:50:00 Adrianna Miranda [facility] ASPIR&/INJ MAJOR JT/BURSA W/O US MRI KNEE WO CONTRAST LEFT 2021-12-14 14:15:00 Adrianna Miranda [facility] XR KNEE 1 OR 2 VW 2021-09-28 19:41:49 Adrianna Miranda [facility] BILATERAL [place] ARTHROCENTESIS 2021-09-28 19:30:00 Adrianna Miranda [facility] ASPIR&/INJ MAJOR JT/BURSA W/O US THYROID STIMULATING 2021-03-31 15:55:00 [facility] HORMONE [place] HSV 1 AND 2 SPECIFIC AB 2021-03-31 15:55:00 [facility] IGG [place] Transthoracic two 2019-09-25 00:00:00 [facility] dimensional echocardiography with color Doppler imaging and contrast Myocrd Strain Img Speckl 2019-09-25 00:00:00 [facility] Track X-ray of chest, single 2019-09-24 00:00:00 [facility] view ECG (electrocardiogram) 2019-09-24 00:00:00 [facility] 12 lead ECG interpretation 2019-09-24 00:00:00 [facility] [id number] 2019-08-06 00:00:00 [facility] [id number] 2019-08-06 00:00:00 [facility] [id number] 2019-08-06 00:00:00 [facility] [id number] 2019-08-06 00:00:00 [facility] [id number] 2019-08-06 00:00:00 [facility] Plan of Care Planned Activity Planned Date Details Comments Source Future Scheduled Test 2023-01-26 SHINGLES VACCINES (2 [facility] 16:12:37 of 3) [code = SHINGLES VACCINES (2 of 3)] Future Scheduled Test 2023-01-26 COVID-19 VACCINE (6 [facility] 16:12:37 season) [code = COVID-19 VACCINE ( season)] Future Scheduled Test 2023-01-26 INFLUENZA VACCINE [facility] 16:12:37 (#1) [code = INFLUENZA VACCINE (#1)] Future Scheduled Test 2023-01-19 SHINGLES VACCINES (2 [facility] 14:39:55 of 3) [code = SHINGLES VACCINES (2 of 3)] Future Scheduled Test 2023-01-19 COVID-19 VACCINE (6 - [facility] 14:39:55 season) [code = COVID-19 VACCINE ( - season)] Future Scheduled Test 2023-01-19 INFLUENZA VACCINE [facility] 14:39:55 (#1) [code = INFLUENZA VACCINE (#1)] Future Scheduled Test 2022-09-14 SHINGLES VACCINES (2 [facility] 11:02:15 of 3) [code = SHINGLES VACCINES (2 of 3)] Future Scheduled Test 2022-09-14 COVID-19 VACCINE (6 - [facility] 11:02:15 Moderna series) [code = COVID-19 VACCINE (6 - Moderna series)] Future Scheduled Test 2022-09-14 INFLUENZA VACCINE [facility] 11:02:15 [code = INFLUENZA VACCINE] Future Scheduled Test 2022-07-07 SHINGLES VACCINES (1 [facility] 12:32:59 of 2) [code = SHINGLES VACCINES (1 of 2)] Future Scheduled Test 2022-07-07 INFLUENZA VACCINE [facility] 12:32:59 [code = INFLUENZA VACCINE] Future Scheduled Test 2022-04-27 SHINGLES VACCINES (1 [facility] 10:59:44 of 2) [code = SHINGLES VACCINES (1 of 2)] Future Scheduled Test 2022-01-19 HEPATITIS B VACCINES [facility] 18:11:59 (1 of 3 - 3-dose series) [code = HEPATITIS B VACCINES (1 of 3 - 3-dose series)] Future Scheduled Test 2022-01-19 SHINGLES VACCINES (1 [facility] 18:11:59 of 2) [code = SHINGLES VACCINES (1 of 2)] Future Scheduled Test 2022-01-19 COVID-19 VACCINE (4 - [facility] 18:11:59 Booster for Moderna series) [code = COVID-19 VACCINE (4 - Booster for Moderna series)] Future Scheduled Test Serum or plasma [facility] cardiac troponin I [place] LIVE measurement HCIS (mass/volume) [code = 70929-7] Instructions Atrial Fibrillation [place] t (DC) [place] LIVE HCIS Instructions Apixaban [facility] LIVE HCIS Encounters Start End Encounter Admission Attending Care Care Encounter Source Date/Time Date/Time Type Type Clinicians Facility Department ID 2019-08-06 Inpatient HALIMA Us SURG [id number] [facility] 08:00:[address] 2023-01-22 2023-01-22 Patient Arnold, 1.2.840.1 [id number] Methodi 00:00:00 00:00:00 Outreach Kathrin [address]86.1.[address] 3.430.2.7 Hospit a .3.798875 l .8 2023-01-08 2023-01-08 Telephone Debora Marques 1.2.840.1 [id number] Methodi 00:00:00 00:00:[address] 3.430.2.7 Hospit a .3.901043 l .8 2023-01-08 2023-01-08 Telephone Adrianna Miranda 1.2.840.1 [id number] Methodi 00:00:00 00:00:[address] 3.430.2.7 Hospit a .3.365263 l .8 2023-01-08 2023-01-08 Telephone Debora Marques 1.2.840.1 [id number] Methodi 00:00:00 00:00:[address] 3.430.2.7 Hospit a .3.690785 l .8 2023-01-08 2023-01-08 Telephone Adrianna Miranda 1.2.840.1 [id number] Methodi 00:00:00 00:00:[address] 3.430.2.7 Hospit a .3.315937 l .8 2023-01-05 2023-01-05 Telephone Adrianna Miranda 1.2.840.1 [id number] Methodi 00:00:00 00:00:[address] 3.430.2.7 Hospit a .3.985746 l .8 2023-01-05 2023-01-05 Telephone Adrianna iMranda 1.2.840.1 [id number] Methodi 00:00:00 00:00:[address] 3.430.2.7 Hospit a .3.315572 l .8 2022-11-21 2022-11-21 Telephone Galen, 1.2.840.1 [id number] Methodi 00:00:00 00:00:[address] [place] 3.430.2.7 Hospi ta .3.370056 l .8 2022-11-21 2022-11-21 Telephone Galen, 1.2.840.1 [id number] Methodi 00:00:00 00:00:[address] [place] 3.430.2.7 Hospi ta .3.016837 l .8 2022-09-29 2022-09-29 Patient Favio, 1.2.840.1 [id number] Methodi 00:00:00 00:00:00 Outreach Chelly 39190.1.[address] 3.430.2.7 Hospit a .3.676029 l .8 2022-09-29 2022-09-29 Patient Favio, 1.2.840.1 [id number] Methodi 00:00:00 00:00:00 Outreach Chelly 66210.1.[address] 3.430.2.7 Hospit a .3.056154 l .8 2022-08-17 2022-08-17 Transition DENIS Hamlin 1.2.840.114 [id number] Univers 00:00:00 00:00:00 of Sugar [place] 350.1.13.10 it y of [place] 4.2.7.[address] [facility] [id number] [facility] [address] 2022-08-13 2022-08-16 Inpatient X ETHAN ALDEEP [facility] [id number] Univers 17:21:00 16:30:00 DIANE ity [facility] 2022-08-13 2022-08-16 [facility] Nicolas Sims [facility] 1.2.840 .114 [id number] Univers 17:21:00 16:30:00 [facility] Diane Corrigan [place] 350.1.13.10 ity [facility] 4.2.7.2.686 [facility] [id number] [facility] [address] Branch 2022-08-05 2022-08-05 Refill Galen, 1.2.840.1 [id number] Methodi 00:00:00 00:00:[address] [place] 3.430.2.7 Hospi ta .3.714796 l .8 2022-08-05 2022-08-05 Refill Galen, 1.2.840.1 [id number] Methodi 00:00:00 00:00:[address] [place] 3.430.2.7 Hospi ta .3.494968 l .8 2022-07-20 2022-07-20 Telephone Galen, 1.2.840.1 [id number] Methodi 00:00:00 00:00:[address] [facility] 3.430.2.7 Hospi ta .3.303509 l .8 2022-07-20 2022-07-20 Telephone Galen, 1.2.840.1 [id number] 418 [id number] Methodi 00:00:00 00:00:[address] [facility] 3.430.2.7 Hospi ta .3.066097 l .8 2022-07-17 2022-07-17 Patient Favio, 1.2.840.1 2099 822077 Methodi 00:00:00 00:00:00 Outreach Chelly 96810.1.[address] 3.430.2.7 Hospit a .3.740444 l .8 2022-07-17 2022-07-17 Patient Favio, 1.2.840.1 [id number] 2099 213660 Methodi 00:00:00 00:00:00 Outreach Chelly [address]6097.1.[address] 3.430.2.7 Hospit a .3.581325 l .8 2022-07-07 2022-07-07 Patient Reyes, 1.2.840.1 [id number] 181364 8281 Methodi 00:00:00 00:00:00 Outreach Emily 25325.1.1 006 s t 3.430.2.7 Hospit a .3.724315 l .8 2022-07-07 2022-07-07 Patient Reyes, 1.2.840.1 [id number] 823090 4930 Methodi 00:00:00 00:00:00 Outreach Emily 28271.1.1 006 s t 3.430.2.7 Hospit a .3.609671 l .8 2022-07-06 2022-07-06 Prep for Ashtyn-Noelle 1.2.840.1 [id number] 2 [id number] Methodi 00:00:00 00:00:00 Surgery an, Marisa 34889.1.[address] [place] 3.430.2.7 Hospit a .3.018260 l .8 2022-07-06 2022-07-06 Prep for Ashtyn-Noelle 1.2.840.1 [id number] 2 [id number] Methodi 00:00:00 00:00:00 Surgery an, Marisa 24066.1.[address] [place] 3.430.2.7 Hospit a .3.068648 l .8 2022-06-22 2022-06-22 Patient Reyes, 1.2.840.1 [id number] 0118 Methodi 00:00:00 00:00:00 Outreach Emily 50850.1.1 639 s t 3.430.2.7 Hospit a .3.014515 l .8 2022-06-22 2022-06-22 Patient Reyes, 1.2.840.1 [id number] 748336 0271 Methodi 00:00:00 00:00:00 Outreach Emily 19053.1.1 639 s t 3.430.2.7 Hospit a .3.699292 l .8 2022-06-21 2022-06-21 Office Adrianna Miranda 1.2.840.1 [id number] 566 [id number] Methodi 09:30:00 11:28:21 [address] B[address] 73285.1.[address] 3.430.2.7 Hospit a .3.409503 l .8 2022-06-21 2022-06-21 Office Adrianna Miranda 1.2.840.1 [id number] 493 [id number] Methodi 09:30:00 11:28:21 [address]4945.1.[address] 3.430.2.7 Hospit a .3.704073 l .8 2022-06-21 2022-06-21 Travel 1.2.840.1 1.2.880.388 1485 898829 Methodi 00:00:00 00:00:[address] 3.430.2.7 0.2.7.3.698 Ho spita .3.116058 084.8 l .8 2022-06-21 2022-06-21 Travel 1.2.840.1 1.2.022.138 3455 494870 Methodi 00:00:00 00:00:[address] 3.430.2.7 0.2.7.3.698 Ho spita .3.921540 084.8 l .8 2022-06-19 2022-06-19 Travel 1.2.840.1 1.2.675.246 0087 712118 Methodi 00:00:00 00:00:[address] 3.430.2.7 0.2.7.3.698 Ho spita .3.693648 084.8 l .8 2022-06-19 2022-06-19 Travel 1.2.840.1 1.2.956.212 7065 591112 Methodi 00:00:00 00:00:[address] 3.430.2.7 0.2.7.3.698 Ho spita .3.472653 084.8 l .8 2022-06-12 2022-06-12 Refill [place], 1.2.840.1 [id number] 81081 Methodi 00:00:00 00:00:[address] [place] 3.430.2.7 Hospi ta .3.476886 l .8 2022-06-12 2022-06-12 Refill [place], 1.2.840.1 [id number] 36010 Methodi 00:00:00 00:00:[address] [place] 3.430.2.7 Hospi ta .3.693665 l .8 2022-06-08 2022-06-08 Refill [place], 1.2.840.1 [id number] Methodi 00:00:00 00:00:[address] [place] 3.430.2.7 Hospi ta .3.549596 l .8 2022-06-08 2022-06-08 Patient Reyes, 1.2.840.1 [id number] 0366 Methodi 00:00:00 00:00:00 Outreach Emily 00626.1.1 763 s t 3.430.2.7 Hospit a .3.778810 l .8 2022-06-08 2022-06-08 Telephone [place], 1.2.840.1 [id number] 478 [id number] Methodi 00:00:00 00:00:[address] [place] 3.430.2.7 Hospi ta .3.856702 l .8 2022-06-08 2022-06-08 Refill [place], 1.2.840.1 085108802 94718 Methodi 00:00:00 00:00:[address] [place] 3.430.2.7 Hospi ta .3.186094 l .8 2022-06-08 2022-06-08 Refill [place], 1.2.840.1 [id number] 98205 Methodi 00:00:00 00:00:[address] [place] 3.430.2.7 Hospi ta .3.022356 l .8 2022-06-08 2022-06-08 Patient Reyes, 1.2.840.1 [id number] 649551 7648 Methodi 00:00:00 00:00:00 Outreach Emily 71320.1.1 763 s t 3.430.2.7 Hospit a .3.757936 l .8 2022-06-08 2022-06-08 Telephone [place], 1.2.840.1 [id number] 975 [id number] Methodi 00:00:00 00:00:[address] [place] 3.430.2.7 Hospi ta .3.106760 l .8 2022-06-08 2022-06-08 Refill Galen, 1.2.840.1 [id number] 93662 Methodi 00:00:00 00:00:[address] [place] 3.430.2.7 Hospi ta .3.315643 l .8 2022-06-03 2022-06-03 Refill [place], 1.2.840.1 [id number] 96371 Methodi 00:00:00 00:00:[address] [place] 3.430.2.7 Hospi ta .3.418962 l .8 2022-06-03 2022-06-03 Refill [place], 1.2.840.1 [id number] 10424 Methodi 00:00:00 00:00:[address] [place] 3.430.2.7 Hospi ta .3.712968 l .8 2022-05-25 2022-05-25 Patient Reyes, 1.2.840.1 [id number] 004135 6245 Methodi 00:00:00 00:00:00 Outreach Emily 22888.1.1 043 s t 3.430.2.7 Hospit a .3.352412 l .8 2022-05-25 2022-05-25 Patient Reyes, 1.2.840.1 [id number] 7275 Methodi 00:00:00 00:00:00 Outreach Emily 97876.1.1 043 s t 3.430.2.7 Hospit a .3.853513 l .8 2022-05-11 2022-05-11 Patient Reyes, 1.2.840.1 [id number] 058784 4805 Methodi 00:00:00 00:00:00 Outreach Emily 59271.1.1 088 s t 3.430.2.7 Hospit a .3.194259 l .8 2022-05-11 2022-05-11 Patient Reyes, 1.2.840.1 [id number] 643775 4018 Methodi 00:00:00 00:00:00 Outreach Emily 73723.1.1 088 s t 3.430.2.7 Hospit a .3.575948 l .8 2022-05-09 2022-05-09 Telephone [place], 1.2.840.1 100639362 990 9308236 Methodi 00:00:00 00:00:[address] [place] 3.430.2.7 Hospi ta .3.084555 l .8 2022-05-09 2022-05-09 Telephone [place], 1.2.840.1 [id number] 095 3900096 Methodi 00:00:00 00:00:[address] [place] 3.430.2.7 Hospi ta .3.182444 l .8 2022-05-09 2022-05-09 Telephone [place], 1.2.840.1 [id number] 284 6595437 Methodi 00:00:00 00:00:[address] [place] 3.430.2.7 Hospi ta .3.248203 l .8 2022-05-09 2022-05-09 Telephone [place], 1.2.840.1 645097601 355 0673799 Methodi 00:00:00 00:00:[address] [place] 3.430.2.7 Hospi ta .3.387472 l .8 2022-05-07 2022-05-07 Refill Galen, 1.2.840.1 222550987 37721 84066 Methodi 00:00:00 00:00:[address] [place] 3.430.2.7 Hospi ta .3.637783 l .8 2022-05-07 2022-05-07 Refill Gal[place], 1.2.840.1 861398974 26264 Methodi 00:00:00 00:00:[address] [place] 3.430.2.7 Hospi ta .3.561905 l .8 2022-04-27 2022-04-27 Patient Reyes, 1.2.840.1 100040372 417178 6670 Methodi 00:00:00 00:00:00 Outreach Emily 58492.1.1 906 s t 3.430.2.7 Hospit a .3.119008 l .8 2022-04-27 2022-04-27 Patient Reyes, 1.2.840.1 [id number] 344192 2080 Methodi 00:00:00 00:00:00 Outreach Emily 46568.1.1 906 s t 3.430.2.7 Hospit a .3.674246 l .8 2022-04-06 2022-04-06 Patient Reyes, 1.2.840.1 142280985 333060 0100 Methodi 00:00:00 00:00:00 Outreach Emily 42972.1.1 988 s t 3.430.2.7 Hospit a .3.128078 l .8 2022-04-06 2022-04-06 Patient Reyes, 1.2.840.1 [id number] 692508 1037 Methodi 00:00:00 00:00:00 Outreach Emily 76396.1.1 988 s t 3.430.2.7 Hospit a .3.034927 l .8 2022-03-16 2022-03-16 Orders Sales, Elidia 1.2.840.1 [id number] 717 3200866 Methodi 00:00:00 00:00:[address] 3.430.2.7 Hospit a .3.794929 l .8 2022-03-16 2022-03-16 Telephone [place], 1.2.840.1 [id number] 824 3549261 Methodi 00:00:00 00:00:[address] [place] 3.430.2.7 Hospi ta .3.227173 l .8 2022-03-16 2022-03-16 Patient Reyes, 1.2.840.1 349948839 540261 6466 Methodi 00:00:00 00:00:00 Outreach Emily 00035.1.1 189 s t 3.430.2.7 Hospit a .3.048875 l .8 2022-03-16 2022-03-16 Orders Sales, Elidia 1.2.840.1 032188005 511 8370556 Methodi 00:00:00 00:00:[address] 3.430.2.7 Hospit a .3.808203 l .8 2022-03-16 2022-03-16 Telephone [place], 1.2.840.1 129065968 389 4886262 Methodi 00:00:00 00:00:[address] [place] 3.430.2.7 Hospi ta .3.322227 l .8 2022-03-16 2022-03-16 Patient Reyes, 1.2.840.1 [id number] 071066 7171 Methodi 00:00:00 00:00:00 Outreach Emily 26553.1.1 189 s t 3.430.2.7 Hospit a .3.513822 l .8 2022-03-06 2022-03-06 Telephone [place], 1.2.840.1 [id number] 124 0889687 Methodi 00:00:00 00:00:[address] [facility] 3.430.2.7 Hospi ta .3.092803 l .8 2022-03-06 2022-03-06 Telephone Gal[place], 1.2.840.1 [id number] 468 3542120 Methodi 00:00:00 00:00:[address] [facility] 3.430.2.7 Hospi ta .3.017404 l .8 2022 2022 Patient Eric, 1.2.840.1 747770814 199228 3523 Methodi 00:00:00 00:00:00 Outreach Emily 66007.1.1 904 s t 3.430.2.7 Hospit a .3.411886 l .8 2022 2022 Patient Reyes, 1.2.840.1 602272784 456671 0650 Methodi 00:00:00 00:00:00 Outreach Emily 47842.1.1 904 s t 3.430.2.7 Hospit a .3.711485 l .8 2022-03-01 2022-03-01 Office Adrianna Miranda 1.2.840.1 [id number] 087 2122042 Methodi 10:00:00 14:41:30 Visit B. [address]210.1.[address] 3.430.2.7 Hospit a .3.884166 l .8 2022-03-01 2022-03-01 Office Adrianna Miranda 1.2.840.1 [id number] 610 6444278 Methodi 10:00:00 14:41:30 Visit B. 10389.1.[address] 3.430.2.7 Hospit a .3.804031 l .8 2022-03-01 2022-03-01 Office [place], 1.2.840.1 576892056 54298 Methodi 10:00:00 10:05:57 Visit Poli 55210.1.[address] [place] 3.430.2.7 Hospi ta .3.420847 l .8 2022-03-01 2022-03-01 Office [place], 1.2.840.1 [id number] 37 Methodi 10:00:00 10:05:57 Visit Poli 44052.1.[address] [place] 3.430.2.7 Hospi ta .3.393565 l .8 2022-03-01 2022-03-01 Travel 1.2.840.1 1.2.582.174 6120 139212 Methodi 00:00:00 00:00:[address] 3.430.2.7 0.2.7.3.698 Ho spita .3.137767 084.8 l .8 2022-03-01 2022-03-01 Travel 1.2.840.1 1.2.740.217 4617 139212 Methodi 00:00:00 00:00:[address] 3.430.2.7 0.2.7.3.698 Ho spita .3.705672 084.8 l .8 2022-02-27 2022-02-27 Telephone [place], 1.2.840.1 [id number] 855 1091816 Methodi 00:00:00 00:00:[address] [place] 3.430.2.7 Hospi ta .3.136315 l .8 2022-02-27 2022-02-27 Telephone [place], 1.2.840.1 [id number] 156 6139090 Methodi 00:00:00 00:00:[address] [place] 3.430.2.7 Hospi ta .3.563959 l .8 2022-02-15 2022-02-15 Patient Reyes, 1.2.840.1 [id number] 935344 5175 Methodi 00:00:00 00:00:00 Outreach Emily 79357.1.1 809 s t 3.430.2.7 Hospit a .3.838445 l .8 2022-02-15 2022-02-15 Patient Reyes, 1.2.840.1 [id number] 322315 6230 Methodi 00:00:00 00:00:00 Outreach Emily 10371.1.1 809 s t 3.430.2.7 Hospit a .3.504198 l .8 2022-02-13 2022-02-13 Telephone Theodore, 1.2.840.1 [id number] Methodi 00:00:00 00:00:[address] 3.430.2.7 Hospit a .3.817845 l .8 2022-02-13 2022-02-13 Telephone Theodore, 1.2.840.1 [id number] 77431033 Methodi 00:00:00 00:00:[address] 3.430.2.7 Hospit a .3.559691 l .8 2022-02-03 2022-02-03 Office Adrianna Miranda 1.2.840.1 [id number] 392 6568137 Methodi 09:20:00 09:20:00 Visit B[address] 04065.1.[address] 3.430.2.7 Hospit a .3.300599 l .8 2022-02-03 2022-02-03 Office Adrianna Miranda 1.2.840.1 [id number] 545 1879082 Methodi 09:20:00 09:20:00 Visit B. [address]108.1.[address] 3.430.2.7 Hospit a .3.298546 l .8 2022-02-01 2022-02-01 Patient Reyes, 1.2.840.1 006950694 831116 8150 Methodi 00:00:00 00:00:00 Outreach Emily 84339.1.1 609 s t 3.430.2.7 Hospit a .3.422557 l .8 2022-02-01 2022-02-01 Patient Reyes, 1.2.840.1 [id number] 659480 9424 Methodi 00:00:00 00:00:00 Outreach Emily 94106.1.1 609 s t 3.430.2.7 Hospit a .3.684728 l .8 2022-01-31 2022-01-31 Refill Galen, 1.2.840.1 852229933 88988 Methodi 00:00:00 00:00:[address] [place] 3.430.2.7 Hospi ta .3.142807 l .8 2022-01-31 2022-01-31 Refill Galen, 1.2.840.1 [id number] 39658 Methodi 00:00:00 00:00:[address] [place] 3.430.2.7 Hospi ta .3.406302 l .8 2022-01-30 2022-01-30 [facility] Adrianna Miranda 1.2.840.1 [id number] 21 [id number] Methodi 07:38:00 13:41:00 Encounter B[address]6299.1.[address] 3.430.2.7 Hospit a .3.104556 l .8 2022-01-30 2022-01-30 [facility] Adrianna Miranda 1.2.840.1 [id number] 21 [id number] Methodi 07:38:00 13:41:00 Encounter B. 37633.1.[address] 3.430.2.7 Hospit a .3.624487 l .8 2022-01-30 2022-01-30 Surgery Adrianna Miranda 1.2.840.1 [id number] 916 7838915 Methodi 09:00:00 10:40:[address] 3.430.2.7 Hospit a .3.564687 l .8 2022-01-30 2022-01-30 Surgery Adrianna Miranda 1.2.840.1 [id number] 083 [id number] Methodi 09:00:00 10:40:[address] 3.430.2.7 Hospit a .3.476470 l .8 2022-01-30 2022-01-30 Anesthesia Brannicholas, 1.2.840.1 [id number] 345 0471617 Methodi 08:59:00 10:18:00 Event Abdullahi 23500.1.[address] Robi 3.430.2.7 Hospit a .3.602857 l .8 2022-01-30 2022-01-30 Anesthesia Brann, 1.2.840.1 431143146 669 3389066 Methodi 08:59:00 10:18:00 Event Abdullahi 90527.1.[address] [place] 3.430.2.7 Hospit a .3.268100 l .8 2022-01-30 2022-01-30 Travel 1.2.840.1 1.2.143.100 5852 155878 Methodi 00:00:00 00:00:[address] 3.430.2.7 0.2.7.3.698 Ho spita .3.247996 084.8 l .8 2022-01-30 2022-01-30 Travel 1.2.840.1 1.2.560.622 3093 525881 Methodi 00:00:00 00:00:[address] 3.430.2.7 0.2.7.3.698 Ho spita .3.599223 084.8 l .8 2022-01-27 2022-01-27 Patient Reyes, 1.2.840.1 [id number] 081751 9699 Methodi 00:00:00 00:00:00 Outreach Emily 99112.1.1 659 s t 3.430.2.7 Hospit a .3.315431 l .8 2022-01-27 2022-01-27 Patient Reyes, 1.2.840.1 [id number] 024139 0987 Methodi 00:00:00 00:00:00 Outreach Emily 80122.1.1 659 s t 3.430.2.7 Hospit a .3.457701 l .8 2022-01-25 2022-01-25 Patient Arnold, 1.2.840.1 [id number] 56711 08329 Methodi 00:00:00 00:00:00 Outreach Kathrin 39029.1.[address] 3.430.2.7 Hospit a .3.501802 l .8 2022-01-16 2022-01-16 Travel 1.2.840.1 1.2.025.639 8710 650272 Methodi 00:00:00 00:00:[address] 3.430.2.7 0.2.7.3.698 Ho spita .3.903597 084.8 l .8 2022-01-13 2022-01-13 Refill Galen, 1.2.840.1 [id number] 63428 Methodi 00:00:00 00:00:[address] [place] 3.430.2.7 Hospi ta .3.826773 l .8 2022-01-10 2022-01-10 Telephone Theodore, 1.2.840.1 [id number] Methodi 00:00:00 00:00:[address] 3.430.2.7 Hospit a .3.001451 l .8 2022-01-10 2022-01-10 Orders Theodore, 1.2.840.1 [id number] 2099 656975 Methodi 00:00:00 00:00:00 Only Maryanne 41284.1.[address] 3.430.2.7 Hospit a .3.392269 l .8 2022-01-10 2022-01-10 Prep for Theodore, 1.2.840.1 [id number] 635 1636811 Methodi 00:00:00 00:00:00 Surgery Maryanne 66746.1.[address] 3.430.2.7 Hospit a .3.802957 l .8 2022-01-09 2022-01-09 Telephone Theodore, 1.2.840.1 [id number] 21 [id number] Methodi 00:00:00 00:00:[address] 3.430.2.7 Hospit a .3.726463 l .8 2021-12-28 2021-12-28 [facility] [id number] 4274 [place] 00:00:00 00:00:[address] POLI [address] 2021-12-28 2021-12-28 Travel 1.2.840.1 1.2.822.878 1092 705953 Methodi 00:00:00 00:00:[address] 3.430.2.7 0.2.7.3.698 Ho spita .3.402359 084.8 l .8 2021-12-23 2021-12-23 Refill Galen, 1.2.840.1 [id number] 64746 37433 Methodi 00:00:00 00:00:[address] [place] 3.430.2.7 Hospi ta .3.496776 l .8 2021-12-23 2021-12-23 Orders Galen, 1.2.840.1 [id number] 92793 01328 Methodi 00:00:00 00:00:00 Only Poli 14071.1.[address] [place] 3.430.2.7 Hospi ta .3.161521 l .8 2021-12-21 2021-12-21 Office Adrianna Miranda 1.2.840.1 [id number] 223 [id number] Methodi 08:50:00 11:59:46 Visit Bob 46538.1.[address] 3.430.2.7 Hospit a .3.599724 l .8 2021-12-21 2021-12-21 Office Galen 1.2.840.1 [id number] 89990 Methodi 10:00:00 10:41:23 Visit Poli 66100.1.[address] [place] 3.430.2.7 Hospi ta .3.436262 l .8 2021-12-21 2021-12-21 Travel 1.2.840.1 1.2.969.004 1806 000095 Methodi 00:00:00 00:00:[address] 3.430.2.7 0.2.7.3.698 Ho spita .3.020464 084.8 l .8 2021-12-17 2021-12-17 Refill Gal[place], 1.2.840.1 [id number] 50134 23385 Methodi 00:00:00 00:00:[address] [place] 3.430.2.7 Hospi ta .3.879467 l .8 2021-12-16 2021-12-16 Telephone Theodore, 1.2.840.1 [id number] 21 [id number] Methodi 00:00:00 00:00:[address] 3.430.2.7 Hospit a .3.556763 l .8 2021-12-14 2021-12-14 Outpatient ADRIANNA [facility]IR[facility]DA [facility] 2100 582136 [place] 00:00:00 00:00:[address] 2021-12-07 2021-12-07 Office Adrianna Miranda 1.2.840.1 [id number] 316 [id number] Methodi 10:20:00 11:37:02 [address] 65188.1.[address] 3.430.2.7 Hospit a .3.668400 l .8 2021-12-07 2021-12-07 Travel 1.2.840.1 1.2.654.259 9186 699425 Methodi 00:00:00 00:00:[address] 3.430.2.7 0.2.7.3.698 Ho spita .3.708389 084.8 l .8 2021-11-29 2021-11-29 Travel 1.2.840.1 1.2.118.431 9003 969802 Methodi 00:00:00 00:00:[address] 3.430.2.7 0.2.7.3.698 Ho spita .3.339483 084.8 l .8 2021-11-16 2021-11-16 Refill [place], 1.2.840.1 [id number] 20874 Methodi 00:00:00 00:00:[address] [place] 3.430.2.7 Hospi ta .3.011820 l .8 2021-10-26 2021-10-26 Telephone [place], 1.2.840.1 [id number] 253 [id number] Methodi 00:00:00 00:00:[address] [place] 3.430.2.7 Hospi ta .3.811790 l .8 2021-10-24 2021-10-24 Telephone [place], 1.2.840.1 [id number] 075 7055828 Methodi 00:00:00 00:00:[address] [place] 3.430.2.7 Hospi ta .3.472841 l .8 2021-10-21 2021-10-21 Telephone [place], 1.2.840.1 [id number] 359 5709759 Methodi 00:00:00 00:00:[address] [place] 3.430.2.7 Hospi ta .3.232910 l .8 2021-10-20 2021-10-20 Telephone [place], 1.2.840.1 [id number] 671 4656080 Methodi 00:00:00 00:00:[address] [place] 3.430.2.7 Hospi ta .3.492157 l .8 2021-10-11 2021-10-11 Telephone Gal[place], 1.2.840.1 [id number] 552 [id number] Methodi 00:00:00 00:00:[address] [place] 3.430.2.7 Hospi ta .3.982186 l .8 2021-10-06 2021-10-06 Office Galen, 1.2.840.1 [id number] 03568 22252 Methodi 15:15:00 15:51:36 Visit Poli 10868.1.[address] [place] 3.430.2.7 Hospi ta .3.861576 l .8 2021-10-06 2021-10-06 Travel 1.2.840.1 1.2.319.623 9084 [id number] Methodi 00:00:00 00:00:[address] 3.430.2.7 0.2.7.3.698 Ho spita .3.549239 084.8 l .8 2021-10-04 2021-10-04 Telephone [place], 1.2.840.1 [id number] 575 [id number] [facility]i 00:00:00 00:00:[address] [place] 3.430.2.7 Hospi ta .3.076830 l .8 2021-10-03 2021-10-03 Telephone Jose, 1.2.840.1 [id number] 361 [id number] Methodi 00:00:00 00:00:[address] 3.430.2.7 Hospit a .3.234561 l .8 2021-09-28 2021-09-28 Office Adrianna Miranda 1.2.840.1 [id number] 880 [id number] Methodi 14:30:00 16:45:56 Visit B. 43824.1.[address] 3.430.2.7 Hospit a .3.360681 l .8 2021-09-28 2021-09-28 Travel 1.2.840.1 1.2.176.389 2290 [id number] Methodi 00:00:00 00:00:[address] 3.430.2.7 0.2.7.3.698 Ho spita .3.138206 084.8 l .8 2021-09-28 2021-09-28 [facility] ADRIANNA MIRANDA [facility] 2099 [id number] [place] 00:00:00 00:00:[address] 2021-09-19 2021-09-19 Travel 1.2.840.1 1.2.373.020 3023 355638 Methodi 00:00:00 00:00:[address] 3.430.2.7 0.2.7.3.698 Ho spita .3.035578 084.8 l .8 2021-09-12 2021-09-12 Travel 1.2.840.1 1.2.469.440 7634 102448 Methodi 00:00:00 00:00:[address] 3.430.2.7 0.2.7.3.698 Ho spita .3.278756 084.8 l .8 2021-08-15 2021-08-15 Telephone [place], 1.2.840.1 [id number] 135 [id number] Methodi 00:00:00 00:00:[address] [place] 3.430.2.7 Hospi ta .3.122310 l .8 2021-07-04 2021-07-04 Telephone [place], 1.2.840.1 [id number] 197 [id number] Methodi 00:00:00 00:00:[address] [place] 3.430.2.7 Hospi ta .3.670762 l .8 2021-06-27 2021-06-27 Telephone [place], 1.2.840.1 [id number] 993 [id number] Methodi 00:00:00 00:00:[address] [place] 3.430.2.7 Hospi ta .3.049996 l .8 2021-06-212021-06-21 Telephone [place], 1.2.840.1 [id number] 410 [id number] Methodi 00:00:00 00:00:[address] [place] 3.430.2.7 Hospi ta .3.142052 l .8 2021-06-19 2021-06-19 Refill [place], 1.2.840.1 [id number] 56709 Methodi 00:00:00 00:00:[address] [place] 3.430.2.7 Hospi ta .3.597069 l .8 2021-05-31 2021-05-31 Telephone [place], 1.2.840.1 [id number] 760 [id number] Methodi 00:00:00 00:00:[address] [place] 3.430.2.7 Hospi ta .3.091031 l .8 2021-05-30 2021-05-30 Telephone [place], 1.2.840.1 [id number] 406 [id number] Methodi 00:00:00 00:00:[address] [place] 3.430.2.7 Hospi ta .3.843168 l .8 2021-04-22 2021-04-22 Telephone [place], 1.2.840.1 [id number] 086 [id number] Methodi 00:00:00 00:00:[address] [place] 3.430.2.7 Hospi ta .3.890853 l .8 2021-04-15 2021-04-15 Refill [place], 1.2.840.1 [id number] 56585 00274 Methodi 00:00:00 00:00:[address] [place] 3.430.2.7 Hospi ta .3.379495 l .8 2021-04-12 2021-04-12 Telephone [place], 1.2.840.1 [id number] 753 [id number] Methodi 00:00:00 00:00:[address] [place] 3.430.2.7 Hospi ta .3.597306 l .8 2021-04-04 2021-04-04 Orders [place], 1.2.840.1 [id number] Methodi 00:00:00 00:00:00 Only Poli 78628.1.[address] [place] 3.430.2.7 Hospi ta .3.402525 l .8 2021-04-04 2021-04-04 Orders [place], 1.2.840.1 [id number] Methodi 00:00:00 00:00:00 Only Poli 52879.1.[address] [place] 3.430.2.7 Hospi ta .3.141139 l .8 2021-03-31 2021-03-31 [facility], 1.2.840.1 [id number] Methodi 10:00:00 10:05:[address] [place] 3.430.2.7 Hospi ta .3.180862 l .8 2021-03-31 2021-03-31 Office [place], 1.2.840.1 [id number] Methodi 09:15:00 09:51:04 Visit Poli 05439.1.[address] [place] 3.430.2.7 Hospi ta .3.503470 l .8 2021-03-31 2021-03-31 Travel 1.2.840.1 1.2.917.911 3065 150860 Methodi 00:00:00 00:00:[address] 3.430.2.7 0.2.7.3.698 Ho spita .3.214761 084.8 l .8 2021-03-30 2021-03-30 Telephone [place], 1.2.840.1 [id number] 675 [id number] Methodi 00:00:00 00:00:[address] [place] 3.430.2.7 Hospi ta .3.841371 l .8 2021-03-29 2021-03-29 Travel 1.2.840.1 1.2.017.937 9715 798787 Methodi 00:00:00 00:00:[address] 3.430.2.7 0.2.7.3.698 Ho spita .3.296658 084.8 l .8 2021 2021 Refill [place], 1.2.840.1 [id number] Methodi 00:00:00 00:00:[address] [place] 3.430.2.7 Hospi ta .3.628422 l .8 2021-02-23 2021-02-23 Telephone [place], 1.2.840.1 [id number] 586 [id number] Methodi 00:00:00 00:00:[address] [place] 3.430.2.7 Hospi ta .3.116902 l .8 2021-02-07 2021-02-07 Telephone [place], 1.2.840.1 [id number] 678 [id number] Methodi 00:00:00 00:00:[address] [place] 3.430.2.7 Hospi ta .3.143861 l .8 2021-02-02 2021-02-02 Refill [place], 1.2.840.1 [id number] 80 Methodi 00:00:00 00:00:[address] [place] 3.430.2.7 Hospi ta .3.409397 l .8 2021-01-31 2021-01-31 Telephone [place], 1.2.840.1 [id number] 822 [id number] Methodi 00:00:00 00:00:[address] [place] 3.430.2.7 Hospi ta .3.203700 l .8 2021-01-14 2021-01-14 Outpatient [facility], [facility] [id number] [place] 00:00:00 00:00:00 POLI [address] 2021-01-05 2021-01-05 Outpatient [facility], [facility] [id number] [place] 00:00:00 00:00:00 POLI [address] 2020-12-28 2020-12-28 Outpatient [facility], [facility] [id number] [place] 00:00:00 00:00:00 POLI [address] 2020-12-21 2020-12-21 Outpatient [facility], [facility] [id number] [place] 00:00:00 00:00:00 POLI [address] 2020-12-21 2020-12-21 Outpatient [facility], [facility] [id number] 5164 [place] 00:00:00 00:00:00 POLI 799 [facility] 2020-11-05 2020-11-05 Outpatient [facility], [facility] [id number] [place] 00:00:00 00:00:00 POLI 643 [facility] 2020-10-25 2020-10-25 Outpatient [facility], [facility] [id number] [place] 00:00:00 00:00:00 POLI [address] 2020-08-24 2020-08-24 Outpatient OBDULIA, [facility] 7503 [facility] 11:43:00 12:55:00 NERISSA 2020-07-15 2020-07-15 Outpatient [facility], [facility] [id number] [place] 00:00:00 00:00:00 POLI 251 [facility] [address] 2020-07-15 2020-07-15 Outpatient GALEN [facility] [id number] [place] 00:00:00 00:00:[address] POLI [address] 2020-07-15 2020-07-15 Outpatient [facility], [facility] [id number] 6390 [place] 00:00:00 00:00:00 POLI [address] 2020-07-14 2020-07-14 Outpatient ADRIANNA MIRANDA [facility] [id number] [place] 00:00:00 00:00:[address] 2020-07-14 2020-07-14 Outpatient ADRIANNA MIRANDA [facility] [id number] [id number] [place] 00:00:00 00:00:[address] 2020-03-01 2020-03-01 Outpatient GALEN [facility] [id number] [place] 00:00:00 00:00:00 POLI [address] 2019-12-17 2019-12-17 Outpatient ADRIANNA MIRANDA [facility] [id number] [place] 00:00:00 00:00:[address] 2019-12-09 2019-12-09 Outpatient GALEN [facility] [id number] [place] 00:00:00 00:00:[address] 2019-12-09 2019-12-09 Outpatient [facility] [id number] [address] [place] 00:00:00 00:00:00 POLI [address] 2019-09-25 2019-09-25 Discharged GRECIA KHAN MS06 [id number] [facility] 00:55:00 13:28:[address] [facility] [address] (obs) [facility] LIVE HCIS 2019-09-25 2019-09-25 Discharged ER BILL FLORES [id number] [facility] 00:55:00 00:55:00 Inpatient [facility] 45 (obs) [facility] 2019-08-26 2019-08-26 Outpatient [facility] [id number] [place] 00:00:00 00:00:00 POLI [address] 2019-07-29 2019-07-29 Outpatient CARLEE Schroeder OUTD [id number] 2000 [facility] 12:10:00 12:10:00 Robi 89 [facility] 2019-07-29 2019-07-29 Outpatient HALIMA Us 3DAY [id number] [facility] 00:00:00 00:00:00 Robi 92 [facility] 2019-07-19 2019-07-19 Outpatient HALIMA Wilson SURG [id number] [facility] 12:00:00 12:00:00 Salome 28 [facility] 2019-05-21 2019-05-21 Outpatient [facility] [id number] [place] 00:00:00 00:00:00 POLI ocampo 2019-04-21 2019-04-21 Outpatient [facility] 7502 [facility] 11:41:00 11:41:00 Results Test Description Test Time Test Comments Results Result Comments Source FREE T4 2022-08-16 05:47:50 Test Item Value Reference Range Interpretation Comme nts FREE T4 (test code = 1.45 See_Comment [Autom ated message] The system [id number]) which generated this result transmitted ref erence range: 0.78 - 2.20 ng/dL:. The reference range was not u sed to interpret this result as normal/abnormal. Lab Interpretation (test code = Normal 58960-3) [facility]. METABOLIC PANEL (39304)2022-08-14 00:35:15 Test Item Value Reference Range Interpretation Comments NA (test code = 138 mmol/L 135-145 0122839206) K (test code = 4.2 mmol/L 3.5-5.0 8260128653) CL (test code = 101 mmol/L 98-108 2911452125) CO2 TOTAL (test code = 30 mmol/L 23-31 5421069448) AGAP (test code = 7 2-16 9360080737) BUN (test code = 36 mg/dL 7-23 H 1028837077) GLUCOSE (test code = 82 mg/dL 70-110 1170149117) CREATININE (test code = 1.27 mg/dL 0.50-1.04 H 0254592914) TOTAL BILI (test code = 0.9 mg/dL 0.1-1.4 8518061374) CALCIUM (test code = 10.6 mg/dL 8.6-10.6 8012822083) T PROTEIN (test code = 6.5 g/dL 6.3-8.2 8979353509) ALBUMIN (test code = 4.1 g/dL 3.5-5.0 4037439901) ALK PHOS (test code = 37 U/L 34-122 8819367398) ALTv (test code = 22 U/L 5-35 1742-6) AST(SGOT) (test code = 33 U/L 13-40 9089317547) eGFR (test code = 39.9 mL/min/1.73m2 4588927482) BANDAR (test code = BANDAR) Association of [...] tests). Lab Interpretation Abnormal (test code = 05245-3) [facility] [id number] 00:01:31 Test Item Value Reference Range Interpretation Comments TROPONIN I (test code = 0.023 ng/mL <=0.034 6798825229) BANDAR (test code = BANDAR) Reference (Normal) [...] biotin. Lab Interpretation Normal (test code = 14407-1) [facility] EOW-[id number] 00:00:16 Test Item Value Reference Range Interpretation Comments NT-proBNP (test code = 408 pg/mL <=450 9357346779) BANDAR (test code = BANDAR) Biotin has been reported to cause a negative bias, interpret results relative to patient's use of biotin. Lab Interpretation (test Normal code = 39626-9) [facility]ALIC[facility]2023-05-21 23:50:54 SALICYLATE<10mg/L08/13/2022 6:50 PM [facility]: ? Analgesic and Antipyretic Use ? 20- 100 mg/L ? ? Anti-Inflammatory Use ? 100-250 mg/L Toxic Range: ? Greater than 300 mg/LUnCorp[facility] RegionalETHANOL2023-05-21 23:50:49ALCOHOL<10mg/dL08/13/2022 6:50 PM [facility]<10 Vlxkwvhj04-043 Toxic>100 Depression of POSITION DESCRIPTION MANAGER>400 Fatalities ReportedThe Hospitals of [facility] CampusCB WITH DIFF 2022-08-13 23:44:13 Test Item Value Reference Range Interpretation Comments WBC (test code = 5.56 See_Comment [Automated 6259-2) message] The sy stem which generated this result transmitted reference range : 4.30 - 11.10 10*3/?L. The reference range was not used to interpret this result as normal/abnormal . RBC (test code = 4.70 See_Comment [Automated 346-2) message] The sy stem which generated this [...] RDW-SD (test code = 48.9 fL 39.0-49.9 56546-6) RDW-CV (test code = 14.1 % 12.0-15.5 788-0) PLT (test code = 298 See_Comment [Automated 777-3) message] The sy stem which generated this result transmitted reference range : 166 - 358 10*3/ ?L. The reference r john was not used to interpret this result as normal/abnormal . MPV (test code = 10.5 fL 9.5-12.9 19847-6) NRBC/100 WBC (test 0.0 See_Comment [Automat ed code = 9425863855) message] The system which generated this result transmitted reference range : 0.0 - 10.0 /100 WBCs. The refer ence range was not u sed to interpret th is result as normal/abnormal . NRBC x10^3 (test code See_Comment [Auto mated = 4097807558) message] The s ystem which generated this result transmitted reference range : 10*3/?L. The reference range was not used to interpret this result as normal/abnormal . GRAN MAT (NEUT) % 58.6 % (test code = 770-8) IMM GRAN % (test code 0.40 % = 8977462670) LYMPH % (test code = 26.4 % 736-9) MONO % (test code = 8.5 % 5905-5) EOS % (test code = 5.0 % 713-8) BASO % (test code = 1.1 % 706-2) GRAN MAT x10^3(ANC) 3.26 10*3/uL 1.88-7.09 (test code = 0356036785) IMM GRAN x10^3 (test 0.00-0.06 code = 6015978242) LYMPH x10^3 (test code 1.47 10*3/uL 1.32-3.29 = 731-0) MONO x10^3 (test code 0.47 10*3/uL 0.33-0.92 = 742-7) EOS x10^3 (test code = 0.28 10*3/uL 0.03-0.39 711-2) BASO x10^3 (test code 0.06 10*3/uL 0.01-0.07 = 704-7) Lab Interpretation Abnormal (test code = 84049-9) [facility] btjdiki1796-94-29 16:16:00 Test Item Value Reference Range Interpretation Comments POC glucose (test 90 mg/dL 65-99 Conveyor Loader N roberto: Green code = 18357-4) IngridDevice ID: [id number] able: [facility] Notified RNChar table: No Action Needed [facility]2022-11-07 16:16:00 Test Item Value Reference Range Interpretation Comments POC glucose (test 90 mg/dL 65-99 Conveyor Loader N roberto: Green code = 49732-3) IngridDevice ID: [id number] able: [facility] Notified RNChar table: No Action Needed [facility]2022-11-07 16:16:00 Test Item Value Reference Range Interpretation Comments POC glucose (test 90 mg/dL 65-99 Conveyor Loader N roberto: Green code = 39967-0) IngridDevice ID: [id number] able: [facility] Notified RNChar table: No Action Needed [facility]2022-11-07 16:16:00 Test Item Value Reference Range Interpretation Comments POC glucose (test 90 mg/dL 65-99 Conveyor Loader N roberto: Green code = 91618-0) IngridDevice ID: [id number] able: [facility] Notified RNChar table: No Action Needed [facility]2022-11-07 16:16:00 Test Item Value Reference Range Interpretation Comments POC glucose (test 90 mg/dL 65-99 Conveyor Loader N roberto: Green code = 87163-0) IngridDevice ID: [id number] able: [facility] Notified RNChar table: No Action Needed [facility] aghut6809-52-37 13:06:00 Test Item Value Reference Interpretation Comments Range Glucose (test code 117 mg/dL 65-99 H Fasting reference = 2345-7) interval For so jose r without known diabetes, a glu cose valuebetween 10 0 and 125 mg/dL is consistent withprediabetes and should be confi rmed with afollow-up test. BUN (test code = 17 mg/dL 7- 3094-0) Creatinine (test 0.89 mg/dL 0.60-0.95 code = 2160-0) eGFR (test code = See_Comment The eGFR i s based on 8257) the CKD-EPI 202 1 equation. To calculate the n ew eGFR from a pre vious Creatinine or Cystatin Cresul t, go to https://www.[employer] raymond.o rg/professional s/kdo qi/gfr%5Fcalcul ator [Automated mess age] The system [employer] generated this result transmit danielle reference range [...] . Sodium (test code = 142 mmol/L 512-723 2572-2) Potassium (test 3.8 mmol/L 3.5-5.3 code = 2823-3) Chloride (test code 100 mmol/L 98-110 = 2075-0) CO2 (test code = 32 mmol/L 20-32 2027-9) Calcium (test code 10.4 mg/dL 8.6-10.4 = 70306-7) Protein (test code 7.4 g/dL 6.1-8.1 = 2885-2) Albumin, S (test 4.8 g/dL 3.6-5.1 code = 1751-7) Globulin, total See_Comment [Automated message] (test code = The system [employer] 20130-2) generated this result transmit danielle reference range [...] RAC) Organization Information: Site ID: RGA Name: [facility] Address: [address] [place] [phone] Director: Robi Rodas Lab Interpretation Abnormal (test code = 55097-4) [facility] bxwge6392-12-08 13:06:00 Test Item Value Reference Range Interpretation [...] calculated (test <100 Desira ble code = 24467-0) range <100 m g/dL for primary prevention; <70 mg/dL for patients with C HD or diabetic patients with > or = 2 CHD risk factors. LDL-C is now calculated using the Pradeep calculation, which is a validated novel method providin g better accuracy than the Friedewald equation in the estimation of LDL-C. Geoff S S et al. MARY. 2013;310(19): 3337-2950 (http://educati on .Loot! .com/faq/GHT762 ) Cholesterol/HDL See_Comment [Automated ratio (test code = message] The 9830-1) system which generated this result transmitted reference range : <5.0 (calc). Th e reference range was not used to interpret this result as normal/abnormal . Non-HDL cholesterol See_Comment H For rolly ents with (test code = diabetes plus 1 98596-8) major ASCVD ris k factor, treatin g [...] RAC) Organization Information: Site ID: RGA [facility]: [facility] Address: [address] [place] [phone] Director: Robi Rodas Lab Interpretation Abnormal (test code = 57819-7) [facility] CenterHem[facility] [id number] 13:06:00 Test Item Value Reference Range Interpretation [...] specif ic patient populat ions. Standards of Ut dical Care in Diabetes(ADA). [Automated mess age] The system whic h generated this result transmitted ref erence range: <5.7 % o f total Hgb. The reference range was not used to int erpret this result as normal/abnormal . BANDAR (test code = FASTING:YES BANDAR) FASTING: YES RAC (test code = Performing RAC) Organization Information: Site ID: SAL Name: [facility] Address: [address] [place] [phone] Director: Robi Rodas [facility] CenterThyroid stimulating [id number] 13:06:00 Test Item Value Reference Range Interpretation Comments TSH (test code = See_Comment L [Automated 3016-3) message] The system which generated this result transmitted reference range : 0.40 - 4.50 mIU/L. The reference range was not used to interpret this result as normal/abnormal . BANDAR (test code = FASTING:YES BANDAR) FASTING: YES RAC (test code = Performing RAC) Organization Information: Site ID: [facility] Name: [facility] Address: [address] [place] [phone] Director: Robi Rodas Lab Interpretation Abnormal (test code = 58697-6) [facility] with platelet and galqbhzcisav2462-39-71 13:06:00 Test Item Value Reference Range Interpretation Comments WBC (test code = See_Comment [Automated 0184-2) message] The system which generated this result transmitted reference range : 3.8 - 10.8 Thousand/uL. Th e reference range was not used to interpret this result as normal/abnormal . RBC (test code = See_Comment [Automated 404-8) message] The system which generated this result [...] RAC) Organization Information: Site ID: RGA Name: [facility] Lab Address: [address] [place] [phone] Director: Robi Rodas Lab Interpretation Abnormal (test code = 80774-4) [facility] CenterUrinalysis, automated with scmttbtnli5020-86-87 13:06:00 Test Item Value Reference Range Interpretation Comments Color, UA (test code YELLOW YELLOW = 5778-6) Appearance (test CLEAR CLEAR code = 5767-9) Specific gravity, 1.001-1.035 urine (test code = 5811-5) pH, urine (test code 5.0-8.0 = 5803-2) Glucose, urine (test NEGATIVE NEGATIVE code = 16512-4) Bilirubin, UA (test NEGATIVE NEGATIVE code = 5770-3) Ketones, UA (test NEGATIVE NEGATIVE code = 2514-8) Occult blood, urine NEGATIVE NEGATIVE (test code = 5794-3) Protein, UA (test TRACE NEGATIVE A code = 73303-2) Nitrite, UA (test NEGATIVE NEGATIVE code = [...] code = NONE SEEN See_Comment [Autom ated 05783-7) message] The system which generated this result transmitted reference range : < OR = 2 /HPF. The reference range was not used to interpr et this result as normal/abnormal . Squamous epithelial 0-5 See_Comment [Automa danielle cells, UA (test code message ] The = 56278-0) system which generated this result transmitted reference [...] RAC) Organization Information: Site ID: A Name: [facility] Lab Address: [address] [place] [address] [place] [address] Director: Robi Rodas Lab Interpretation Abnormal (test code = 30098-5) [facility] CenterVitamin D 25 hydroxy cpdur0994-29-68 13:06:00 Test Item Value Reference Range Interpretation [...] please refer to http://educatio n.Q uestDiagnostics .co m/faq/JTB672 (T his link is being provided for informational/e sunil ational purpose s only.) BANDAR (test code = FASTING:YES FASTING: BANDAR) YES RAC (test code = Performing RAC) Organization Information: Site ID: RGA Name: [facility] Address: [address] [place] [phone] Director: Robi Rodas [facility] CenterComprehensive metabolic [id number] 13:06:00 Test Item Value Reference Interpretation Comments [...] qi/gfr%5Fcalcul ator [Automated mess age] The system [employer] generated this result transmit danielle reference range : > OR = 60 mL/min/1.73m2. The reference range was not used to interpret this result as normal/abnormal . BUN/creatinine NOT APPLICABLE See_Comment [Automated message] ratio (test code = The [employer] which 3097-3) generated this result transmit danielle reference range : 6 - 22 (calc). The reference range was not used to interpret this result as normal/abnormal . Sodium (test code = 142 mmol/L 871-685 6597-2) Potassium (test 3.8 mmol/L 3.5-5.3 code = 2823-3) Chloride (test code 100 mmol/L 98-110 = 2075-0) CO2 (test code = 32 mmol/L 20-32 2027-9) Calcium (test code 10.4 mg/dL 8.6-10.4 = 69162-0) Protein (test code 7.4 g/dL 6.1-8.1 = 2885-2) Albumin, S (test 4.8 g/dL 3.6-5.1 code = 1751-7) Globulin, total 2.6 See_Comment [Automated message] (test code = The system [employer] 19453-1) generated this result transmit danielle reference range : 1.9 - 3.7 g/dL (merissa c). The reference r john was not used to interpret this result as normal/abnormal . Albumin/globulin 1.8 See_Comment [Automated message] ratio (test code = The [employer] which 1759-0) generated this result transmit danielle [...] RAC) Organization Information: Site ID: RGA Name: [employer] [facility] Address: [address] [place] [phone] Director: Robi Rodas Lab Interpretation Abnormal (test code = 94084-3) [facility] [id number] 13:06:00 Test Item Value Reference Range Interpretation [...] calculated (test <100 Desira ble code = 41922-3) range <100 m g/dL for primary prevention; <70 mg/dL for patients with C HD or diabetic patients with > or = 2 CHD risk factors. LDL-C is now calculated using the Geoff-Jaya calculation, which is a validated novel method providin g better accuracy than the Friedewald equation in the estimation of LDL-C. Geoff S S et al. MARY. 2013;310(19): 8868-6917 (http://educati on .Loot! .com/faq/XFX844 ) Cholesterol/HDL 3.3 See_Comment [Automated ratio (test code = message] The 9830-1) system which generated this result transmitted reference range : <5.0 (calc). Th e reference range was not used to interpret this result as normal/abnormal . Non-HDL cholesterol 140 See_Comment H For rolly ents with (test code = diabetes plus 1 83124-5) major ASCVD ris k factor, treatin g [...] RAC) Organization Information: Site ID: SAL Name: [facility] Address: [address] [place] [address] Director: Robi Rodas Lab Interpretation Abnormal (test code = 62748-6) [facility] CenterH[facility] [id number] 13:06:00 Test Item Value Reference Range Interpretation [...] in Diabetes(ADA). [Automated mess age] The system [employer] generated this result transmitted ref erence range: <5.7 % o f total Hgb. The reference range was not used to int erpret this result as normal/abnormal . BANDAR (test code = FASTING:YES BANDAR) FASTING: YES RAC (test code = Performing RAC) Organization Information: Site ID: A Name: [facility] Address: [address] [place] [phone] Director: Robi Rodas [facility] CenterThyroid stimulating [id number] 13:06:00 Test Item Value Reference Range Interpretation Comments TSH (test code = 0.17 See_Comment L [Automated 6626-3) message] The system which generated this result transmitted reference range : 0.40 - 4.50 mIU/L. The reference range was not used to interpret this result as normal/abnormal . BANDAR (test code = FASTING:YES BANDAR) FASTING: YES RAC (test code = Performing RAC) Organization Information: Site ID: A Name: [facility] Address: [address] [place] [phone] Director: Robi Rodas Lab Interpretation Abnormal (test code = 56707-8) [facility] with platelet and emxkoqsslxme3611-41-58 13:06:00 Test Item Value Reference Range Interpretation Comments WBC (test code = 10.1 See_Comment [Automated 5790-2) message] The system which generated this result [...] RAC) Organization Information: Site ID: RGA [facility]: [facility] Address: [address] [place] [address] Director: Robi Rodas Lab Interpretation Abnormal (test code = 18392-0) [facility] CenterUrinalysis, automated with fxxipxwibv8510-67-47 13:06:00 Test Item Value Reference Range Interpretation Comments Color, UA (test code YELLOW YELLOW = 5778-6) Appearance (test CLEAR CLEAR code = 5767-9) Specific gravity, 1.013 1.001-1.035 urine (test code = 5811-5) pH, urine (test code 7.5 5.0-8.0 = 5803-2) Glucose, urine (test NEGATIVE NEGATIVE code = 45612-9) Bilirubin, UA (test NEGATIVE NEGATIVE code = 5770-3) Ketones, UA (test NEGATIVE NEGATIVE code = 2514-8) Occult blood, urine NEGATIVE NEGATIVE (test code = 5794-3) Protein, UA (test TRACE NEGATIVE A code = 49089-9) Nitrite, UA (test NEGATIVE NEGATIVE code = [...] code = NONE SEEN See_Comment [Autom ated 12972-2) message] The system which generated this result transmitted reference range : < OR = 2 /HPF. The reference range was not used to interpr et this result as normal/abnormal . Squamous epithelial 0-5 See_Comment [Automa danielle cells, UA (test code message ] The = 69014-4) system which generated this result transmitted reference [...] RAC) Organization Information: Site ID: RGA Name: [facility] Lab Address: [address] [place] [phone] Director: Robi Rodas Lab Interpretation Abnormal (test code = 65454-5) [facility] CenterVitamin D 25 hydroxy elezs7928-23-88 13:06:00 Test Item Value Reference Range Interpretation [...] please refer to http://educatio n.Q uestDiagnostics .co m/faq/OIE469 (T his link is being provided for informational/e sunil ational purpose s only.) BANDAR (test code = FASTING:YES FASTING: BANDAR) YES RAC (test code = Performing RAC) Organization Information: Site ID: RGA Name: [facility] Address: [address] [place] [phone] Director: Robi Rodas [facility] Springsprehenve metabolic [id number] 13:06:00 Test Item Value Reference Interpretation Comments [...] qi/gfr%5Fcalcul ator [Automated mess age] The system [employer] generated this result transmit danielle reference range [...] . Sodium (test code = 142 mmol/L 369-926 1058-2) Potassium (test 3.8 mmol/L 3.5-5.3 code = 2823-3) Chloride (test code 100 mmol/L 98-110 = 2075-0) CO2 (test code = 32 mmol/L 20-32 2027-9) Calcium (test code 10.4 mg/dL 8.6-10.4 = 72794-1) Protein (test code 7.4 g/dL 6.1-8.1 = 2885-2) Albumin, S (test 4.8 g/dL 3.6-5.1 code = 1751-7) Globulin, total 2.6 See_Comment [Automated message] (test code = The [place] h 87152-3) generated this result transmit danielle reference range [...] RAC) Organization Information: Site ID: RGA Name: [facility] Address: [address] [place] [phone] Director: Robi Rodas Lab Interpretation Abnormal (test code = 20488-1) [facility] CenterLip[facility] [id number] 13:06:00 Test Item Value Reference Range Interpretation [...] calculated (test <100 Desira ble code = 50715-1) range <100 m g/dL for primary prevention; <70 mg/dL for patients with C HD or diabetic patients with > or = 2 CHD risk factors. LDL-C is now calculated using the Pradeep calculation, which is a validated novel method loisin g better accuracy than the Friedewald equation in the estimation of LDL-C. Geoff Elizabeth S et al. MARY. 2013;310(19): 5128-0678 (http://educati on .Loot! .com/faq/RRM959 ) Cholesterol/HDL 3.3 See_Comment [Automated ratio (test code = message] The 9830-1) system which generated this result transmitted reference range : <5.0 (calc). Th e reference range was not used to interpret this result as normal/abnormal . Non-HDL cholesterol 140 See_Comment H For rolly ents with (test code = diabetes plus 1 03892-4) major ASCVD ris k factor, treatin g [...] RAC) Organization Information: Site ID: RGA Name: [facility] Address: [address] [place] [phone] Director: Robi Rodas Lab Interpretation Abnormal (test code = 55744-7) [facility] CenterHemoglobin [id number] 13:06:00 Test Item Value Reference Range Interpretation [...] = Performing RAC) Organization Information: Site ID: [facility] Name: [employer] Lab Address: [address] [place] [address] Director: Robi Rodas [facility] CenterThyroid stimulating zlidajc3895-12-90 13:06:00 Test Item Value Reference Range Interpretation Comments TSH (test code = 0.17 See_Comment L [Automated 5596-3) message] The system which generated this result transmitted reference range : 0.40 - 4.50 mIU/L. The reference range was not used to interpret this result as normal/abnormal . BANDAR (test code = FASTING:YES BANDAR) FASTING: YES RAC (test code = Performing RAC) Organization Information: Site ID: [facility] Name: [employer] Lab Address: [address] [place] [address] Director: Robi Rodas Lab Interpretation Abnormal (test code = 46294-6) [facility] CenterCB with platelet and obihftpbvjso8719-02-38 13:06:00 Test Item Value Reference Range Interpretation Comments WBC (test code = 10.1 See_Comment [Automated 3993-2) message] The system which generated this result transmitted reference range : 3.8 - 10.8 Thousand/uL. Th e reference range was not used to interpret this result as normal/abnormal . RBC (test code = 4.24 See_Comment [Automated 499-8) message] The system which generated this result [...] RAC) Organization Information: Site ID: RGA Name: [facility] Lab Address: [address] [place] [phone] Director: Robi Rodas Lab Interpretation Abnormal (test code = 05815-5) [facility] HospitalUrinalysis, automated with qfqnhmzonw2268-50-71 13:06:00 Test Item Value Reference Range Interpretation Comments Color, UA (test code YELLOW YELLOW = 5778-6) Appearance (test CLEAR CLEAR code = 5767-9) Specific gravity, 1.013 1.001-1.035 urine (test code = 5811-5) pH, urine (test code 7.5 5.0-8.0 = 5803-2) Glucose, urine (test NEGATIVE NEGATIVE code = 81487-1) Bilirubin, UA (test NEGATIVE NEGATIVE code = 5770-3) Ketones, UA (test NEGATIVE NEGATIVE code = 2514-8) Occult blood, urine NEGATIVE NEGATIVE (test code = 5794-3) Protein, UA (test TRACE NEGATIVE A code = 02000-4) Nitrite, UA (test NEGATIVE NEGATIVE code = [...] code = NONE SEEN See_Comment [Autom ated 77421-8) message] The system which generated this result transmitted reference range : < OR = 2 /HPF. The reference range was not used to interpr et this result as normal/abnormal . Squamous epithelial 0-5 See_Comment [Automa danielle cells, UA (test code message ] The = 73506-8) system which generated this result transmitted reference [...] RAC) Organization Information: Site ID: SAL [facility] Address: [address] [place] [phone] Director: Robi Rodas Lab Interpretation Abnormal (test code = 58997-2) [facility]it[facility] D 25 hydroxy [id number] 13:06:00 Test Item Value Reference Range Interpretation [...] please refer to http://educatio n.Q uestDiagnostics .co m/faq/HCD441 (T his link is being provided for informational/e sunil ational purpose s only.) BANDAR (test code = FASTING:YES FASTING: BANDAR) YES RAC (test code = Performing RAC) Organization Information: Site ID: SAL [facility] Address: [address] [place] [phone] Director: Robi Rodas [facility] CenterComprehensive metabolic iqqlv2175-75-06 13:06:00 Test Item Value Reference Interpretation Comments [...] Creatinine or Cystatin Cresul t, go to [email or web address] rg/professional s/kdo qi/gfr%5Fcalcul ator [Automated mess age] The system [employer] generated this result transmit danielle reference range : > OR = 60 mL/min/1.73m2. The reference range was not used to interpret this result as normal/abnormal . BUN/creatinine NOT APPLICABLE See_Comment [Automated message] ratio (test code = The [employer] which 3097-3) generated this result transmit danielle reference range : 6 - 22 (calc). The reference range was not used to interpret this result as normal/abnormal . Sodium (test code = 142 mmol/L 645-511 7836-2) Potassium (test 3.8 mmol/L 3.5-5.3 code = 2823-3) Chloride (test code 100 mmol/L 98-110 = 2075-0) CO2 (test code = 32 mmol/L 20-32 2027-9) Calcium (test code 10.4 mg/dL 8.6-10.4 = 82158-3) Protein (test code 7.4 g/dL 6.1-8.1 = 2885-2) Albumin, S (test 4.8 g/dL 3.6-5.1 code = 1751-7) Globulin, total 2.6 See_Comment [Automated message] (test code = The system [employer] 22473-9) generated this result transmit danielle reference range : 1.9 - 3.7 g/dL (merissa c). The reference r john was not used to interpret this result as normal/abnormal . Albumin/globulin 1.8 See_Comment [Automated message] ratio (test code = The [employer] which 1759-0) generated this result transmit danielle [...] RAC) Organization Information: Site ID: RGA Name: [facility] Address: [address] [place] [phone] Director: Robi Rodas Lab Interpretation Abnormal (test code = 52140-9) [facility] CenterLipid [id number] 13:06:00 Test Item Value Reference Range Interpretation [...] calculated (test <100 Desira ble code = 39700-7) range <100 m g/dL for primary prevention; <70 mg/dL for patients with C HD or diabetic patients with > or = 2 CHD risk factors. LDL-C is now calculated using the Geoff-Jaya calculation, which is a validated novel method providin g better accuracy than the Friedewald equation in the estimation of LDL-C. Geoff S S et al. MARY. 2013;310(19): 2347-5206 (http://educati on .QuestDiagnosti TeamBuy .com/faq/GCX324 ) Cholesterol/HDL 3.3 See_Comment [Automated ratio (test code = message] The 9830-1) system which generated this result transmitted reference range : <5.0 (calc). Th e reference range was not used to interpret this result as normal/abnormal . Non-HDL cholesterol 140 See_Comment H For rolly ents with (test code = diabetes plus 1 38594-0) major ASCVD ris k factor, treatin g [...] RAC) Organization Information: Site ID: RGA Name: [facility] Address: [address] [place], [place] [phone] Director: Robi Rodas Lab Interpretation Abnormal (test code = 93495-9) [facility] CenterHemoglobin [id number] 13:06:00 Test Item Value Reference Range Interpretation [...] in Diabetes(ADA). [Automated mess age] The system ic h generated this result transmitted ref erence range: <5.7 % o f total Hgb. The reference range was not used to int erpret this result as normal/abnormal . BANDAR (test code = FASTING:YES BANDAR) FASTING: YES RAC (test code = Performing RAC) Organization Information: Site ID: A Name: [facility] Address: [address] [place] [phone] Director: Robi Rodas [facility] CenterThyroid stimulating [id number] 13:06:00 Test Item Value Reference Range Interpretation Comments TSH (test code = 0.17 See_Comment L [Automated 8876-3) message] The system which generated this result transmitted reference range : 0.40 - 4.50 mIU/L. The reference range was not used to interpret this result as normal/abnormal . BANDAR (test code = FASTING:YES BANDAR) FASTING: YES RAC (test code = Performing RAC) Organization Information: Site ID: RGA Name: [facility] Address: [address] [place] [phone] Director: Robi Rodas Lab Interpretation Abnormal (test code = 91488-9) [facility] with platelet and ihdsgofrrszd8329-97-80 13:06:00 Test Item Value Reference Range Interpretation Comments WBC (test code = 10.1 See_Comment [Automated 6272-2) message] The system which generated this result transmitted reference range : 3.8 - 10.8 Thousand/uL. Th e reference range was not used to interpret this result as normal/abnormal . RBC (test code = 4.24 See_Comment [Automated 999-8) message] The system which generated this result [...] [Automated absolute (test code message] The = 881-8) system which generated this result transmitted reference [...] RAC) Organization Information: Site ID: RGA [facility] Address: [address] [place] [phone] Director: Robi Rodas Lab Interpretation Abnormal (test code = 36255-0) [facility] with jqcdwjcliw3341-37-23 13:06:00 Test Item Value Reference Range Interpretation Comments Color, UA (test code YELLOW YELLOW = 5778-6) Appearance (test CLEAR CLEAR code = 5767-9) Specific gravity, 1.013 1.001-1.035 urine (test code = 5811-5) pH, urine (test code 7.5 5.0-8.0 = 5803-2) Glucose, urine (test NEGATIVE NEGATIVE code = 48029-4) Bilirubin, UA (test NEGATIVE NEGATIVE code = 5770-3) Ketones, UA (test NEGATIVE NEGATIVE code = 2514-8) Occult blood, urine NEGATIVE NEGATIVE (test code = 5794-3) Protein, UA (test TRACE NEGATIVE A code = 93079-2) Nitrite, UA (test NEGATIVE NEGATIVE code = [...] code = NONE SEEN See_Comment [Autom ated 77236-6) message] The system which generated this result transmitted reference range : < OR = 2 /HPF. The reference range was not used to interpr et this result as normal/abnormal . Squamous epithelial 0-5 See_Comment [Automa danielle cells, UA (test code message ] The = 52394-4) system which generated this result transmitted reference [...] RAC) Organization Information: Site ID: RGA Name: [facility] Lab Address: [address] [place] [phone] Director: Robi Rodas Lab Interpretation Abnormal (test code = 27136-0) [facility] CenterVitamin D 25 hydroxy yxwfe5660-53-95 13:06:00 Test Item Value Reference Range Interpretation [...] please refer to http://educatio n.Q uestDiagnostics .co m/faq/MOV844 (T his link is being provided for informational/e sunil ational purpose s only.) BANDAR (test code = FASTING:YES FASTING: BANDAR) YES RAC (test code = Performing RAC) Organization Information: Site ID: RGA Name[facility] Address: [place] [address] Director: Robi Rodas [facility] CenterHSV 1 and 2 specific Ab [id number] 00:13:00 Test Item Value Reference Interpretation Comments Range HSV 1 IgG (test index H code = 5206-8) HSV 2 IgG (test index H Index Inte rpretation code = 5209-2) ----- ------- ------- <0.90 Negative 0.90-1.09 Equiv ocal >1.09 Positive This assay utilizes recombinant type-specific antigensto differentiate H SV-1 from HSV-2 infe ctions. Apositive resul t cannot distingu celestine between recent andpast infection. If r ecent HSV infection i s suspectedbut th e results are neg ative or equivocal, t he assayshould be repeated in 4-6 weeks. The performancechar acteris tics of the ass ay have not been establishedfor pediatric popul ations, immunocompromis ed patients,or rei screening. RAC (test code = Performing RAC) Organization Information: Site ID: IG [facility] Address: [address] [place] [address] Director: Dr. Robi Rodas Lab Interpretation Abnormal (test code = 71481-7) [facility] CenterTroponin I [id number] 12:00:00 Test Item Value Reference Range Interpretation Comments Troponin I (test code = 15147-3) 0.389 ng/mL 0.00-0.045 [facility] HealthTroponin I tfqzpctev2705-59-95 12:00:00 Test Item Value Reference Range Interpretation Comments Troponin I (test code = 62836-8) 0.389 ng/mL Automated blood hematocrit (volume fraction)2019-09-25 04:50:00 Test [...] erythrocyte mean corpuscular hemoglobin concentration (MCHC) measurement ([id number] 04:50:00 Test Item Value Reference Range Interpretation Comments Mean Corpuscular Hemoglobin Concent 32.0 % 32.0-36.0 (test code = 786-4) [facility] HealthAutomated erythrocyte distribution width mdgvg3444-52-00 04:50:00 Test Item Value Reference Range Interpretation Comments Red Cell Distribution Width (test code 13.0 % 0.0-15.5 = 788-0) [facility] HealthAutomated blood platelet count (count/volume)2019-09-25 04:50:00 Test Item Value Reference Range Interpretation Comments Platelet Count (test code = 287 10*3/uL 130-400 777-3) [facility] HealthAutomated blood platelet mean volume xqundmcjsjn6795-90-41 04:50:00 Test Item Value Reference Range Interpretation Comments Mean Platelet Volume (test code = 10.2 fL 9.2-12.2 75177-8) [facility] HealthAutomated blood neutrophil count as percentage of total nhdzjjkvuz1162-26-59 04:50:00 Test Item Value Reference Range Interpretation Comments Neutrophils (%) (Auto) (test code = 67.2 % 50-80 770-8) [facility] HealthAutomated blood immature granulocyte count as percentage of total kakhrnuddk5088-16-85 04:50:00 Test Item Value Reference Range Interpretation Comments Immature Granulocyte % (Auto) (test 0.50 % 0.0-0.43 code = 10008-7) [facility] HealthAutomated blood lymphocyte count as percentage of total cuypvxufky9632-55-42 04:50:00 Test Item Value Reference Range Interpretation Comments Lymphocytes (%) (Auto) (test code = 20.4 % 20.0-45.0 736-9) [facility] HealthAutomated blood monocyte count as percentage of total leukocytes 2019-09-25 04:50:00 Test Item Value Reference Range Interpretation Comments Monocytes (%) (Auto) (test code = 8.0 % 2-10 5905-5) [facility] HealthAutomated blood eosinophil count as percentage of total timkxyqtrg8981-03-07 04:50:00 Test Item Value Reference Range Interpretation Comments Eosinophils (%) (Auto) (test code = 3.1 % 0-6 713-8) [facility] HealthAutomated blood basophil count as percentage of total leukocytes 2019-09-25 04:50:00 Test Item Value Reference Range Interpretation Comments Basophils (%) (Auto) (test code = 0.8 % 0-3 706-2) [facility] HealthAutomated blood nucleated erythrocyte count as percentage of total jsqoagccck0069-09-93 04:50:00 Test Item Value Reference Range Interpretation Comments Nucleated Red Blood Cells % (test code 0.0 % 0-0.2 = 99222-0) [facility] HealthAutomated blood neutrophil count (number/volume)2019-09-25 04:50:00 Test Item Value Reference Range Interpretation Comments Neutrophils # (Auto) (test code = 5.2 10*3/uL 1.4-7.0 751-8) [facility] HealthAutomated blood immature granulocyte count as percentage of total fnxbuzxpvy4281-73-60 04:50:00 Test Item Value Reference Range Interpretation Comments Immature Granulocyte # (Auto) (test 0.0400 0.0-0.0310 code = 96428-2) [facility] HealthAutomated blood lymphocyte count (number/volume)2019-09-25 04:50:00 Test Item Value Reference Range Interpretation Comments Lymphocytes # (Auto) (test code = 1.6 10*3/uL 1.2-4.0 731-0) [facility] OhioBlood monocytes automated count (number/volume)2019-09-25 04:50:00 Test Item Value Reference Range Interpretation Comments Monocytes # (Auto) (test code = 0.6 10*3/uL 0.1-0.8 742-7) [facility] HealthAutomated blood eosinophil wskat0416-37-17 04:50:00 Test Item Value Reference Range Interpretation Comments Eosinophils # (Auto) (test code = 0.2 10*3/uL 0.0-0.6 711-2) [facility] HealthAutomated blood basophil count (number/volume)2019-09-25 04:50:00 Test Item Value Reference Range Interpretation Comments Basophils # (Auto) (test code = 0.1 10*3/uL 0.0-0.3 704-7) [facility]Autom[facility] leukocyte count corrected for nucleated wvjzrfmjbger0414-57-90 04:50:00 Test Item Value Reference Range Interpretation Comments Nucleated Red Blood Cells # (test code 0.000 0-0.012 = 42363-9) [facility] erythrocyte sedimentation rate (ESR) measurement by photometricmethod (length/c4244-69-98 04:50:00 Test Item Value Reference Range Interpretation Comments Erythrocyte Sedimentation Rate (test 7 mm/h 0-20 code = 35642-5) [facility] HealthSodium measurement (moles/volume)2019-09-25 04:50:00 Test Item Value Reference Range Interpretation Comments Sodium Level (test code = 43565-1) 139 mmol/L 131-143 [facility] HealthSerum or plasma potassium measurement (moles/volume)2019-09-25 04:50:00 Test Item Value Reference Range Interpretation Comments Potassium Level (test code = 4.3 mmol/L 3.5-5.1 2823-3) [facility] HealthSerum or plasma chloride measurement (moles/volume)2019-09-25 04:50:00 Test Item Value Reference Range Interpretation Comments Chloride Level (test code = 105 mmol/L 98-107 5-0) [facility] HealthSerum or plasma carbon dioxide measurement (moles/volume) 2019-09-25 04:50:00 Test Item Value Reference Range Interpretation Comments Carbon Dioxide Level (test code = 27 mmol/L 21-32 2027-9) [facility] HealthSerum or plasma anion [id number] 04:50:00 Test Item Value Reference Range Interpretation Comments Anion Gap (test code = 44533-7) 7.0 mmol/L 3.0-11.0 [facility] HealthSerum or plasma urea nitrogen measurement (mass/volume)2019-09-25 04:50:00 Test Item Value Reference Range Interpretation Comments Blood Urea Nitrogen (test code = 23.0 mg/dL 7.0-18.0 3094-0) [facility] HealthSerum or plasma creatinine measurement (mass/volume)2019-09-25 04:50:00 Test Item Value Reference Range Interpretation Comments Creatinine (test code = 2160-0) 0.958 mg/dL 0.550-1.02 [facility] HealthGFR estimate [id number] 04:50:00 Test Item Value Reference Range Interpretation Comments Estimat Glomerular Filtration Rate 56 >60 (test code = 39231-2) [facility] HealthSerum or plasma glucose measurement (mass/volume)2019-09-25 04:50:00 Test Item Value Reference Range Interpretation Comments Glucose Level (test code = 2345-7) 102 mg/dL 74-106 [facility] HealthSerum or plasma calcium measurement (mass/volume)2019-09-25 04:50:00 Test Item Value Reference Range Interpretation Comments Calcium Level (test code = 44249-1) 9.5 mg/dL 8.5-10.1 [facility] HealthSerum or plasma creatine kinase MB measurement (mass/volume) 2019-09-25 04:50:00 Test Item Value Reference Range Interpretation Comments Creatine Kinase MB (test code = 3.3 ng/mL 0.3-3.6 26243-5) [facility] HealthSerum or plasma C reactive protein measurement (mass/volume) 2019-09-25 04:50:00 Test Item Value Reference Range Interpretation Comments C-Reactive Protein, Quantitative < 0.29 mg/dL 0.00-0.30 (test code = 1988-5) [facility]Automated blood leukocyte count (number/volume)2019-09-25 04:50:00 Test Item Value Reference Range Interpretation Comments White Blood Count (test code = 7.7 10*3/uL 4.5-10.0 6690-2) [facility] HealthcareBlood erythrocytes automated count (number/volume)2019-09-25 04:50:00 Test Item Value Reference Range Interpretation Comments Red Blood Count (test code = 4.20 10*6/uL 4.20-5.40 789-8) [facility] hemoglobin measurement (mass/volume)2019-09-25 04:50:00 Test Item Value Reference Range Interpretation Comments Hemoglobin (test code = 718-7) 12.3 g/dL 12.0-16.0 [facility] HealthcareAutomated blood neutrophil count (number/volume)2019-09-25 04:50:00 Test Item Value Reference Range Interpretation Comments Neutrophils # (Auto) (test code = 5.2 10*3/uL 751-8) Automated blood immature granulocyte count as percentage of total leukocytes 2019-09-25 04:50:00 Test Item Value Reference Range Interpretation Comments Immature Granulocyte # (Auto) (test 0.0400 code = 48492-1) Automated blood lymphocyte count (number/volume)2019-09-25 04:50:00 Test Item Value Reference Range Interpretation Comments Lymphocytes # (Auto) (test code = 1.6 10*3/uL 731-0) Blood monocytes automated count (number/volume)2019-09-25 04:50:00 Test Item Value Reference Range Interpretation Comments Monocytes # (Auto) (test code = 0.6 10*3/uL 742-7) Automated blood eosinophil wshfe1668-16-71 04:50:00 Test Item Value Reference Range Interpretation Comments Eosinophils # (Auto) (test code = 0.2 10*3/uL 711-2) Automated blood basophil count (number/volume)2019-09-25 04:50:00 Test Item Value Reference Range Interpretation Comments Basophils # (Auto) (test code = 0.1 10*3/uL 704-7) Automated blood leukocyte count corrected for nucleated aacicpfxnimf6913-04-46 04:50:00 Test Item Value Reference Range Interpretation Comments Nucleated Red Blood Cells # (test code 0.000 = 95068-0) Blood erythrocyte sedimentation rate (ESR) measurement by photometricmethod (length/h0553-85-59 04:50:00 Test Item Value Reference Range Interpretation Comments Erythrocyte Sedimentation Rate (test 7 mm/h code = 09887-3) Sodium measurement (moles/volume)2019-09-25 04:50:00 Test Item Value Reference Range Interpretation Comments Sodium Level (test code = 74716-3) 139 mmol/L Serum or plasma potassium measurement [...] 27 mmol/L 8-9) Serum or plasma anion [id number] 04:50:00 Test Item Value Reference Range Interpretation Comments Anion Gap (test code = 92385-7) 7.0 mmol/L Serum or plasma urea nitrogen measurement (mass/volume)2019-09-25 04:50:00 Test Item Value Reference Range Interpretation Comments Blood Urea Nitrogen (test code = 23.0 mg/dL 3094-0) Serum or plasma creatinine measurement (mass/volume)2019-09-25 04:50:00 Test Item Value Reference Range Interpretation Comments Creatinine (test code = 2160-0) 0.958 mg/dL GFR estimate [id number] 04:50:00 Test Item Value Reference Range Interpretation Comments Estimat Glomerular Filtration Rate 56 (test code = 32297-5) Serum or plasma glucose measurement (mass/volume)2019-09-25 04:50:00 Test Item Value Reference Range Interpretation Comments Glucose Level (test code = 2345-7) 102 mg/dL Serum or plasma calcium measurement (mass/volume)2019-09-25 04:50:00 Test Item Value Reference Range Interpretation Comments Calcium Level (test code = 97649-8) 9.5 mg/dL Serum or plasma creatine kinase MB measurement (mass/volume)2019-09-25 04:50:00 Test Item Value Reference Range Interpretation Comments Creatine Kinase MB (test code = 3.3 ng/mL 33316-7) Serum or plasma C reactive protein measurement [...] % Automated erythrocyte mean corpuscular volume (MCV) tyofiirpoit9248-58-57 04:50:00 Test Item Value Reference Range Interpretation Comments Mean Corpuscular Volume (test code = 91.4 fL 787-2) Automated erythrocyte mean corpuscular hemoglobin (mass per erythrocyte) 2019-09-25 04:50:00 Test Item Value Reference Range Interpretation Comments Mean Corpuscular Hemoglobin (test 29.3 pg code = 785-6) Automated erythrocyte mean corpuscular hemoglobin concentration (MCHC) measurement (n7947-08-35 04:50:00 Test Item Value Reference Range Interpretation Comments Mean Corpuscular Hemoglobin Concent 32.0 % (test code = 786-4) Automated erythrocyte distribution width mdajb4481-02-04 04:50:00 Test Item Value Reference Range Interpretation Comments Red Cell Distribution Width (test code 13.0 % = 788-0) Automated blood platelet count (count/volume)2019-09-25 04:50:00 Test Item Value Reference Range Interpretation Comments Platelet Count (test code = 287 10*3/uL 777-3) Automated blood platelet mean volume wsdqosqomdu7009-35-80 04:50:00 Test Item Value Reference Range Interpretation Comments Mean Platelet Volume (test code = 10.2 fL 76778-2) Automated blood neutrophil count as percentage of total hfjnjygfll7178-32-76 04:50:00 Test Item Value Reference Range Interpretation Comments Neutrophils (%) (Auto) (test code = 67.2 % 770-8) Automated blood immature granulocyte count as percentage of total leukocytes 2019-09-25 04:50:00 Test Item Value Reference Range Interpretation Comments Immature Granulocyte % (Auto) (test 0.50 % code = 23901-7) Automated blood lymphocyte count as percentage of total lonwskexgy5591-23-51 04:50:00 Test Item Value Reference Range Interpretation Comments Lymphocytes (%) (Auto) (test code = 20.4 % 736-9) Automated blood monocyte count as percentage of total xflcgfxiwu9997-84-17 04:50:00 Test Item Value Reference Range Interpretation Comments Monocytes (%) (Auto) (test code = 8.0 % 5905-5) Automated blood eosinophil count as percentage of total buqliswjet9916-01-26 04:50:00 Test Item Value Reference Range Interpretation Comments Eosinophils (%) (Auto) (test code = 3.1 % 713-8) Automated blood basophil count as percentage of total zbspwvydjt2577-46-40 04:50:00 Test Item Value Reference Range Interpretation Comments Basophils (%) (Auto) (test code = 0.8 % 706-2) Automated blood nucleated erythrocyte count as percentage of total leukocytes 2019-09-25 04:50:00 Test Item Value Reference Range Interpretation Comments Nucleated Red Blood Cells % (test code 0.0 % = 93699-7) Serum or plasma magnesium measurement (mass/volume)2019-09-24 22:42:00 Test Item Value Reference Range Interpretation Comments Magnesium Level (test code = 2.3 mg/dL 1.6-2.6 51293-1) [facility] HealthSerum or plasma total bilirubin measurement (mass/volume) 2019-09-24 22:42:00 Test Item Value Reference Range Interpretation Comments Total Bilirubin (test code = 0.4 mg/dL 0.2-1.0 1975-2) [facility] HealthSerum or plasma aspartate aminotransferase measurement (enzymatic activity/volume)2019-09-24 22:42:00 Test Item Value Reference Range Interpretation Comments Aspartate Amino Transf (AST/SGOT) 27 U/L 15-37 (test code = 1920-8) [facility] HealthSerum or plasma alanine aminotransferase measurement (enzymatic [...] (test code = 53 U/L 45-117 6768-6) [facility] HealthcareLactate ser/gesl3841-49-06 22:42:00 Test Item Value Reference Range Interpretation Comments Lactic Acid Level (test code = 1.0 mmol/L 0.4-1.9 2524-7) [facility] HealthcareSerum or plasma creatine kinase measurement (enzymatic activity/volume)2019-09-24 22:42:00 Test Item Value Reference Range Interpretation Comments Total Creatine Kinase (test code = 413 U/L 26-192 2157-6) [facility] HealthcareSerum or plasma total creatine kinase/creatine kinase MB isoenzyme activity pgjej7141-89-56 22:42:00 Test Item Value Reference Range Interpretation Comments Creatine Kinase MB Relative Index (test 0.5 % 0-4 code = 2158-4) [facility] HealthcareTroponin I jmtwjdyjk2263-84-08 22:42:00 Test Item Value Reference Range Interpretation Comments Troponin I (test code = 58879-2) 0.059 ng/mL 0.00-0.045 [facility] CenterSer[facility] or plasma brain natriuretic peptide (BNP) measurement 2019-09-24 22:42:00 Test Item Value Reference Range Interpretation Comments B-Type Natriuretic Peptide (test 40 pg/mL 0.0-100 code = 93957-8) [facility] or plasma thyrotropin measurement by detection limit <=0.005 miu/l (units/nvchg5546-39-45 22:42:00 Test Item Value Reference Range Interpretation Comments Thyroid Stimulating Hormone 7.670 u[iU]/mL 0.358-3.74 (TSH) (test code = 59223-9) [facility] or plasma procalcitonin measurement (mass/volume)2019-09-24 22:42:00 Test Item Value Reference Range Interpretation Comments Procalcitonin (test code = < 0.05 ng/mL 0.0-0.5 65263-0) [facility]bin ssjz0073-18-67 22:42:00 Test Item Value Reference Range Interpretation Comments Prothrombin Time (test code = 5964-2) 11.4 s 10.2-12.9 [facility] HealthINR in Platelet poor plasma by Coagulation flkwi2011-17-37 22:42:00 Test Item Value Reference Range Interpretation Comments Prothromb Time International Ratio 1.0 {INR} 0.9-1.1 (test code = 6301-6) [facility] thromboplastin time (PTT) in platelet poor plasma 2019-09-24 22:42:00 Test Item Value Reference Range Interpretation Comments Activated Partial Thromboplast Time 31.7 s 25.1-36.5 (test code = 56980-0) [facility] FEU mbip4655-89-88 22:42:00 Test Item Value Reference Range Interpretation Comments D-Dimer (test code = 66839-2) 262 ng/mL{FEU} 0.00-500 [facility] blood prothrombin oedn2001-58-86 22:42:00 Test Item Value Reference Range Interpretation Comments Prothrombin Time (test code = 5964-2) 11.4 s INR in Platelet poor plasma by Coagulation qbbrz9363-30-69 22:42:00 Test Item Value Reference Range Interpretation Comments Prothromb Time International Ratio 1.0 {INR} (test code = 6301-6) Partial thromboplastin time (PTT) in platelet poor fvzidm3517-56-62 22:42:00 Test Item Value Reference Range Interpretation Comments Activated Partial Thromboplast Time 31.7 s (test code = 26352-0) Fibrin D-dimer FEU doyz7912-53-28 22:42:00 Test Item Value Reference Range Interpretation Comments D-Dimer (test code = 56702-4) 262 ng/mL{FEU} Serum or plasma magnesium measurement (mass/volume)2019-09-24 22:42:00 Test Item Value Reference Range Interpretation Comments Magnesium Level (test code = 2.3 mg/dL 43505-2) Serum or plasma total bilirubin measurement (mass/volume)2019-09-24 [...] (test code = 53 U/L 6768-6) Lactate ser/scps1271-17-94 22:42:00 Test Item Value Reference Range Interpretation Comments Lactic Acid Level (test code = 1.0 mmol/L 2524-7) Serum or plasma creatine kinase measurement (enzymatic activity/volume) 2019-09-24 22:42:00 Test Item Value Reference Range Interpretation Comments Total Creatine Kinase (test code = 413 U/L 2157-6) Serum or plasma total creatine kinase/creatine kinase MB isoenzyme activity vmrpz1796-81-19 22:42:00 Test Item Value Reference Range Interpretation Comments Creatine Kinase MB Relative Index (test 0.5 % code = 2158-4) Troponin I iprpqrbwj6985-05-49 22:42:00 Test Item Value Reference Range Interpretation Comments Troponin I (test code = 90225-4) 0.059 ng/mL Serum or plasma brain natriuretic peptide (BNP) xqcrsgzboal4424-20-42 22:42:00 Test Item Value Reference Range Interpretation Comments B-Type Natriuretic Peptide (test 40 pg/mL code = 44848-1) Serum or plasma thyrotropin measurement by detection limit <=0.005 miu/l (units/bharm5875-37-48 22:42:00 Test Item Value Reference Range Interpretation Comments Thyroid Stimulating Hormone 7.670 u[iU]/mL (TSH) (test code = 48052-4) Serum or plasma procalcitonin measurement (mass/volume)2019-09-24 22:42:00 Test Item Value Reference Range Interpretation Comments Procalcitonin (test code = < 0.05 ng/mL 05212-7) Automated bacteria count in urine sediment (number/area)2019-09-24 22:33:00 Test Item Value Reference Range Interpretation Comments Urine Bacteria (test None /[HPF] See_Comment [Autom ated message] code = 57446-2) The system w [facility] generated this result transmitted ref erence range: 0-+/-. T he reference range was not used to int erpret this result as normal/abnormal . [facility] HealthAutomated mucus count in urine sediment (number/area)2019-09-24 22:33:00 Test Item Value Reference Range Interpretation Comments Urine Mucus (test +/- /[LPF] See_Comment [Automate d message] The code = 37202-0) system which generated this result tra nsmitted reference range : 0-1+. The reference r john was not used to int erpret this result as normal/abnormal . [facility] HealthAutomated urine yeast count (number/area)2019-09-24 22:33:00 Test Item Value Reference Range Interpretation Comments Urine Yeast (Budding) (test code Rare /[HPF] None Seen = 00222-5) [facility] comment 22:33:00 Test Item Value Reference Range Interpretation Comments Urine Culture Indicated Yes, Criteria Met (test code = 8264-4) [facility] HealthBacterial urine oaaxfxq6864-57-68 22:33:00 Test Item Value Reference Range Interpretation Comments Urine Culture (test No growth in 18-24 code = 630-4) hours [facility] HealthAutomated urine color gbowbekdimdgr1365-93-17 22:33:00 Test Item Value Reference Range Interpretation Comments Urine Color (test code = 46656-3) Yellow Yellow [facility] HealthClarity in Urine by Refractometry vcjvoayej5846-31-47 22:33:00 Test Item Value Reference Range Interpretation Comments Urine Appearance (test code = 49066-7) Clear Clear [facility] HealthUrine pH measurement by test deoig6264-85-92 22:33:00 Test Item Value Reference Range Interpretation Comments Urine pH (test code = 5803-2) 7.5 [pH] 5.0-8.0 [facility] HealthAutomated urine specific gravity by vxazjsscevhcn9526-25-74 22:33:00 Test Item Value Reference Range Interpretation Comments Urine Specific Davin (test code = 1.009 1.005-1.030 75698-4) [facility] HealthAutomated urine protein wvjfiudcwpx1862-60-09 22:33:00 Test Item Value Reference Range Interpretation Comments Urine Protein (test code = Negative mg/dL Negative 30746116) [facility] HealthAutomated urine glucose qmsdgymqu6686-25-93 22:33:00 Test Item Value Reference Range Interpretation Comments Urine Glucose (UA) (test code Negative mg/dL Negative = 41783-2) [facility] HealthUrine ketones detection by automated test veewq8843-20-80 22:33:00 Test Item Value Reference Range Interpretation Comments Urine Ketones (test code = Negative mg/dL Negative 40732-0) [facility] HealthUrine erythrocytes detection by automated wrnbho9967-98-57 22:33:00 Test Item Value Reference Range Interpretation Comments Urine Occult Blood (test code = Negative Negative 70560-3) [facility]ated urine nitrite tneqfjtzhcy1915-49-94 22:33:00 Test Item Value Reference Range Interpretation Comments Urine Nitrite (test code = 81340-5) Negative Negative [facility] HealthUrine total bilirubin detection by automated test huhss1368-28-74 22:33:00 Test Item Value Reference Range Interpretation Comments Urine Bilirubin (test code = Negative Negative 08685-7) [facility]Automated urine urobilinogen iixwtzvslch1948-33-86 22:33:00 Test Item Value Reference Range Interpretation Comments Urine Urobilinogen (test code = Normal mg/dL Normal 82621516) [facility] HealthUrine leukocytes detection by automated ydvwtx6422-26-89 22:33:00 Test Item Value Reference Range Interpretation Comments Urine Leukocyte Esterase (test 250 {Marianna}/uL Negative code = 96451-4) [facility] HealthAutomated erythrocytes count in urine sediment (number/area) 2019-09-24 22:33:00 Test Item Value Reference Range Interpretation Comments Urine RBC (test code = 69747-3) 0-2 /[HPF] 0-2 [facility] HealthAutomated leukocytes count in urine sediment (number/area) 2019-09-24 22:33:00 Test Item Value Reference Range Interpretation Comments Urine WBC (test code = 35844-2) 10-20 /[HPF] 0-2 [facility] HealthAutomated squamous epithelial cells count in urine sediment (number/area)2019-09-24 22:33:00 Test Item Value Reference Range Interpretation Comments Urine Squamous Rare /[LPF] See_Comment [Automated m essage] Epithelial Cells The system which (test code = 70220-1) genera danielle this result transmitted ref erence range: 0 - 1+. The reference range was not used to int erpret this result as normal/abnormal . [facility] HealthAutomated urine sediment crystal count (number/area)2019-09-24 22:33:00 Test Item Value Reference Range Interpretation Comments Urine Other Crystals (test +/- Rare /[LPF] None Seen code = 02918-9) [facility] HealthAutomated urine color tnhqdsuzyyucq7583-22-91 22:33:00 Test Item Value Reference Range Interpretation Comments Urine Color (test code = 15132-9) Yellow Clarity in Urine by Refractometry dwuwppmyu9587-19-52 22:33:00 Test Item Value Reference Range Interpretation Comments Urine Appearance (test code = 83042-5) Clear Urine pH measurement by test peqgu7084-37-16 22:33:00 Test Item Value Reference Range Interpretation Comments Urine pH (test code = 5803-2) 7.5 [pH] Automated urine specific gravity by jysmnosphbfqi5854-07-65 22:33:00 Test Item Value Reference Range Interpretation Comments Urine Specific Davin (test code = 1.009 73203-9) Automated urine protein xinhnsnyxtk8620-87-27 22:33:00 Test Item Value Reference Range Interpretation Comments Urine Protein (test code = Negative mg/dL 02459122) Automated urine glucose nytszzpvh8792-77-83 22:33:00 Test Item Value Reference Range Interpretation Comments Urine Glucose (UA) (test code Negative mg/dL = 81582-8) Urine ketones detection by automated test ojpsd3507-78-85 22:33:00 Test Item Value Reference Range Interpretation Comments Urine Ketones (test code = Negative mg/dL 54539-6) Urine erythrocytes detection by automated myoraf3977-90-50 22:33:00 Test Item Value Reference Range Interpretation Comments Urine Occult Blood (test code = Negative 76774-7) Automated urine nitrite egkdryulcko4864-79-53 22:33:00 Test Item Value Reference Range Interpretation Comments Urine Nitrite (test code = 24225-7) Negative Urine total bilirubin detection by automated test igaor6796-95-61 22:33:00 Test Item Value Reference Range Interpretation Comments Urine Bilirubin (test code = Negative 76090-5) Automated urine urobilinogen uuyjqsrmjph0954-49-60 22:33:00 Test Item Value Reference Range Interpretation Comments Urine Urobilinogen (test code = Normal mg/dL 86985874) Urine leukocytes detection by automated rehuzk3183-54-03 22:33:00 Test Item Value Reference Range Interpretation Comments Urine Leukocyte Esterase (test 250 {Marianna}/uL code = 84959-3) Automated erythrocytes count in urine sediment (number/area)2019-09-24 22:33:00 Test Item Value Reference Range Interpretation Comments Urine RBC (test code = 33404-8) 0-2 /[HPF] Automated leukocytes count in urine sediment (number/area)2019-09-24 22:33:00 Test Item Value Reference Range Interpretation Comments Urine WBC (test code = 86401-7) 10-20 /[HPF] Automated squamous epithelial cells count in urine sediment (number/area) 2019-09-24 22:33:00 Test Item Value Reference Range Interpretation Comments Urine Squamous Epithelial Cells Rare /[LPF] (test code = 37526-6) Automated urine sediment crystal count (number/area)2019-09-24 22:33:00 Test Item Value Reference Range Interpretation Comments Urine Other Crystals (test +/- Rare /[LPF] code = 05311-3) Automated bacteria count in urine sediment (number/area)2019-09-24 22:33:00 Test Item Value Reference Range Interpretation Comments Urine Bacteria (test code = None /[HPF] 92176-6) Automated mucus count in urine sediment (number/area)2019-09-24 22:33:00 Test Item Value Reference Range Interpretation Comments Urine Mucus (test code = 02807-7) +/- /[LPF] Automated urine yeast count (number/area)2019-09-24 22:33:00 Test Item Value Reference Range Interpretation Comments Urine Yeast (Budding) (test code Rare /[HPF] = 43852-1) Service comment 22:33:00 Test Item Value Reference Range Interpretation Comments Urine Culture Indicated Yes, Criteria Met (test code = 8264-4) Bacterial urine nxuuodx1488-03-21 22:33:00 Test Item Value Reference Range Interpretation Comments Urine Culture (test No growth in 18-24 code = 630-4) hours BASIC METABOLIC FWQXE1017-70-92 02:06:00 Test Item Value Reference Range Interpretation [...] code = 10.3 MG/DL 8.4-10.2 H CA) [id number] 02:06:00 Test Item Value Reference Range Interpretation Comments MAGNESIUM (test code = MAG) 1.7 MG/DL 1.6-2.3 BASIC METABOLIC [id number] 02:06:00 Test Item Value Reference Range Interpretation [...] CALCIUM (test code = MG/DL 8.7-9.7 CA) [id number] 02:06:00 Test Item Value Reference Range Interpretation Comments MAGNESIUM (test code = MAG) MG/DL 1.6-2.3 BASIC METABOLIC [id number] 02:06:00 Test Item Value Reference Range Interpretation [...] CALCIUM (test code = MG/DL 8.7-9.7 CA) [id number] 02:06:00 Test Item Value Reference Range Interpretation Comments MAGNESIUM (test code = MAG) MG/DL 1.6-2.3 BASIC METABOLIC [id number] 02:06:00 Test Item Value Reference Range Interpretation [...] code = 10.3 MG/DL 8.4-10.2 H CA) [id number] 02:06:00 Test Item Value Reference Range Interpretation Comments MAGNESIUM (test code = MAG) MG/DL 1.6-2.3 BASIC METABOLIC [id number] 02:03:00 Test Item Value Reference Range Interpretation [...] CALCIUM (test code = CA) MG/DL 8.7-9.7 [id number] 02:03:00 Test Item Value Reference Range Interpretation Comments MAGNESIUM (test code = MAG) MG/DL 1.6-2.3 CBC W/AUTO [id number] 01:51:00 Test Item Value Reference Range Interpretation [...] K/mm3 0.0-0.1 N NRBC#) - XR CHEST [id number] 11:06:00 Patient Name: DEBI GARRETT Unit No: [id number] EXAMS: CPT CODE: [id number] XR CHEST 1V 24410 Site ID: [id number] HISTORY: Pneumothorax COMPARISON: Chest x-ray August 08, 2019 FINDINGS: Less than 5% res idual left apical pneumothorax, platelike left mid lung atelectasis. Otherwise the lungs are clear.The heart and pulmonary vasculature is normal. Left subclavian line terminates appropriately. Osseous structures are unremarkable. IMPRESSION: Less than 5% residual left apical pneumothorax, platelikeleft mid lung atelectasis at 1106 Reported and signed by: Laith Salcido MD CC: Poli Aaron; Abdulaziz Epps Technologist: Willie Santana (RT) Transcrpt Date/Tm/Trnsp: 08/10/2019 (1106) [id number].[email or web address] Orig Print D/T: S: 08/10/2019 (1110) [facility] NAME: DEBI GARRETT [address] [address] PHYS: [place] [address] : 1935 AGE: 84 SEX: F LOC: Z.SI05 A PHONE #: [phone] EXAM DATE: 08/10/2019 STATUS: ADM IN FAX #: [phone] RADIOLOGY NO: PAGE 1 Signed ReportBASIC METABOLIC [id number] 05:07:00 Test Item Value Reference Range Interpretation [...] code = 10.6 MG/DL 8.4-10.2 H CA) [id number] 05:07:00 Test Item Value Reference Range Interpretation Comments PHOSPHOROUS (test code = PHOS) 3.3 MG/DL 2.5-4.5 N [id number] 05:07:00 Test Item Value Reference Range Interpretation Comments MAGNESIUM (test code = MAG) 2.2 MG/DL 1.6-2.3 BASIC METABOLIC [id number] 05:04:00 Test Item Value Reference Range Interpretation [...] CALCIUM (test code = MG/DL 8.7-9.7 CA) [id number] 05:04:00 Test Item Value Reference Range Interpretation Comments PHOSPHOROUS (test code = PHOS) MG/DL 2.5-4.5 [id number] 05:04:00 Test Item Value Reference Range Interpretation Comments MAGNESIUM (test code = MAG) MG/DL 1.6-2.3 BASIC METABOLIC [id number] 05:01:00 Test Item Value Reference Range Interpretation [...] CALCIUM (test code = CA) MG/DL 8.7-9.7 [id number] 05:01:00 Test Item Value Reference Range Interpretation Comments PHOSPHOROUS (test code = PHOS) MG/DL 2.5-4.5 [id number] 05:01:00 Test Item Value Reference Range Interpretation Comments MAGNESIUM (test code = MAG) MG/DL 1.6-2.3 CBC W/AUTO [id number] 04:48:00 Test Item Value Reference Range Interpretation [...] 0.00 K/mm3 0.0-0.1 N NRBC#) BASIC METABOLIC [id number] 23:31:00 Test Item Value Reference Range Interpretation [...] code = 10.1 MG/DL 8.4-10.2 N CA) [id number] 23:31:00 Test Item Value Reference Range Interpretation Comments MAGNESIUM (test code = MAG) 1.8 MG/DL 1.6-2.3 N BASIC METABOLIC [id number] 23:28:00 Test Item Value Reference Range Interpretation [...] CALCIUM (test code = MG/DL 8.7-9.7 CA) [id number] 23:28:00 Test Item Value Reference Range Interpretation Comments MAGNESIUM (test code = MAG) MG/DL 1.6-2.3 BASIC METABOLIC [id number] 23:25:00 Test Item Value Reference Range Interpretation [...] CALCIUM (test code = CA) MG/DL 8.7-9.7 [id number] 23:25:00 Test Item Value Reference Range Interpretation Comments MAGNESIUM (test code = MAG) MG/DL 1.6-2.3 BASIC METABOLIC [id number] 22:21:00 Test Item Value Reference Range Interpretation Comments SODIUM (test code = 129 MMOL/L 137-145 L NA) POTASSIUM (test code = 2.9 MMOL/L 3.5-5.1 L CASTRO D TO TED Rojas& Catalino) READBACK ON AT 2220 BY [place] [...] code = 9.3 MG/DL 8.4-10.2 N CA) [id number] 22:21:00 Test Item Value Reference Range Interpretation Comments MAGNESIUM (test code = MAG) 1.6 MG/DL 1.6-2.3 N BASIC METABOLIC [id number] 21:36:00 Test Item Value Reference Range Interpretation [...] code = CA) 9.3 MG/DL 8.4-10.2 N [id number] 21:36:00 Test Item Value Reference Range Interpretation Comments MAGNESIUM (test code = MAG) 1.6 MG/DL 1.6-2.3 N BASIC METABOLIC [id number] 21:35:00 Test Item Value Reference Range Interpretation [...] CALCIUM (test code = CA) MG/DL 8.7-9.7 [id number] 21:35:00 Test Item Value Reference Range Interpretation Comments MAGNESIUM (test code = MAG) MG/DL 1.6-2.3 CBC W/AUTO [id number] 21:25:00 Test Item Value Reference Range Interpretation [...] 0.0-0.1 N NRBC#) - MRI BRAIN W/O [id number] 11:43:00 Patient Name: TAMICRISTOPHERDEBI ENDER Unit No: [id number] EXAMS: CPT CODE: [id number] MRI BRAIN W/O CONTRAST 45605 CLINICAL INFORMATION: Ataxia. Right internal carotid artery [...] Laura Wei (RT)(R) Transcrpt Date/Tm/Trnsp: 08/09/2019 (1143) VaneV Orig Print D/T: S: 08/09/2019 (1146) [facility] NAME: DEBI GARRETT [address] PHYS: [place] [address] : 1935 AGE: 84 SEX: F LOC: Z.SI05 A PHONE #: [phone] EXAM DATE: 08/09/2019 STATUS: ADM IN FAX #: [phone] RADIOLOGY NO: PAGE 1 Signed ReportURINALYSIS [id number] 22:47:00 Test Item Value Reference Range Interpretation [...] UACULT) Criteria SOURCE OF URINE: STRAIGHT CATHETERURINALYSIS [id number] 22:45:00 Test Item Value Reference Range Interpretation [...] UACULT) SOURCE OF URINE: STRAIGHT CATHETERBASIC METABOLIC [id number] 13:12:00 Test Item Value Reference Range Interpretation [...] code = 9.8 MG/DL 8.4-10.2 N CA) [id number] 13:12:00 Test Item Value Reference Range Interpretation Comments PHOSPHOROUS (test code = PHOS) 2.6 MG/DL 2.5-4.5 N [id number] 13:12:00 Test Item Value Reference Range Interpretation Comments MAGNESIUM (test code = MAG) 2.3 MG/DL 1.6-2.3 N T3,T4 [id number] 13:12:00 Test Item Value Reference Range Interpretation Comments T3 UPTAKE (test code = T3UP) 33.3 % UP 23.5-40.5 N T4 (THYROXINE) (test code = T4) 13.10 UG/DL 5.53-11.0 H T7 (FREE THYROXINE INDEX) (test 4.4 1.2-4.3 H code = T7) THYROID STIMULATING [id number] 13:12:00 Test Item Value Reference Range Interpretation Comments THYROID STIMULATING 3.590 MIU/L 0.465-4.68 N Please b e aware that HORMONE (test code = bias re sults for TSH TSH) may occur forpa tient who are taking Biotin suppleme nts. T4 [id number] 12:43:00 Test Item Value Reference Range Interpretation Comments T4 FREE (test code = T4F) 2.1 NG/DL 0.78-2.19 N BASIC METABOLIC [id number] 12:41:00 Test Item Value Reference Range Interpretation [...] code = 9.8 MG/DL 8.4-10.2 N CA) [id number] 12:41:00 Test Item Value Reference Range Interpretation Comments PHOSPHOROUS (test code = PHOS) 2.6 MG/DL 2.5-4.5 N [id number] 12:41:00 Test Item Value Reference Range Interpretation Comments MAGNESIUM (test code = MAG) 2.3 MG/DL 1.6-2.3 N T3,T4 [id number] 12:41:00 Test Item Value Reference Range Interpretation Comments T3 UPTAKE (test code = T3UP) 33.3 % UP 23.5-40.5 N T4 (THYROXINE) (test code = T4) 13.10 UG/DL 5.53-11.0 H T7 (FREE THYROXINE INDEX) (test 4.4 1.2-4.3 H code = T7) THYROID STIMULATING [id number] 12:41:00 Test Item Value Reference Range Interpretation Comments THYROID STIMULATING HORMONE (test code MIU/L 0.465-4.68 = TSH) CBC W/AUTO [id number] 12:39:00 Test Item Value Reference Range Interpretation [...] 0.00 K/mm3 0.0-0.1 N NRBC#) BASIC METABOLIC [id number] 12:26:00 Test Item Value Reference Range Interpretation [...] code = 9.8 MG/DL 8.4-10.2 N CA) [id number] 12:26:00 Test Item Value Reference Range Interpretation Comments PHOSPHOROUS (test code = PHOS) 2.6 MG/DL 2.5-4.5 N [id number] 12:26:00 Test Item Value Reference Range Interpretation Comments MAGNESIUM (test code = MAG) 2.3 MG/DL 1.6-2.3 N T3,T4 [id number] 12:26:00 Test Item Value Reference Range Interpretation Comments T3 UPTAKE (test code = T3UP) % UP 23.5-40.5 T4 (THYROXINE) (test code = T4) UG/DL 5.53-11.0 T7 (FREE THYROXINE INDEX) (test code = 1.2-4.3 T7) THYROID STIMULATING [id number] 12:26:00 Test Item Value Reference Range Interpretation Comments THYROID STIMULATING HORMONE (test code MIU/L 0.465-4.68 = TSH) BASIC METABOLIC [id number] 12:25:00 Test Item Value Reference Range Interpretation [...] CALCIUM (test code = MG/DL 8.7-9.7 CA) [id number] 12:25:00 Test Item Value Reference Range Interpretation Comments PHOSPHOROUS (test code = PHOS) MG/DL 2.5-4.5 [id number] 12:25:00 Test Item Value Reference Range Interpretation Comments MAGNESIUM (test code = MAG) MG/DL 1.6-2.3 T3,T4 [id number] 12:25:00 Test Item Value Reference Range Interpretation Comments T3 UPTAKE (test code = T3UP) % UP 23.5-40.5 T4 (THYROXINE) (test code = T4) UG/DL 5.53-11.0 T7 (FREE THYROXINE INDEX) (test code = 1.2-4.3 T7) THYROID STIMULATING [id number] 12:25:00 Test Item Value Reference Range Interpretation Comments THYROID STIMULATING HORMONE (test code MIU/L 0.465-4.68 = TSH) BASIC METABOLIC [id number] 12:25:00 Test Item Value Reference Range Interpretation [...] CALCIUM (test code = MG/DL 8.7-9.7 CA) [id number] 12:25:00 Test Item Value Reference Range Interpretation Comments PHOSPHOROUS (test code = PHOS) MG/DL 2.5-4.5 [id number] 12:25:00 Test Item Value Reference Range Interpretation Comments MAGNESIUM (test code = MAG) MG/DL 1.6-2.3 T3,T4 [id number] 12:25:00 Test Item Value Reference Range Interpretation Comments T3 UPTAKE (test code = T3UP) % UP 23.5-40.5 T4 (THYROXINE) (test code = T4) UG/DL 5.53-11.0 T7 (FREE THYROXINE INDEX) (test code = 1.2-4.3 T7) THYROID STIMULATING [id number] 12:25:00 Test Item Value Reference Range Interpretation Comments THYROID STIMULATING HORMONE (test code MIU/L 0.465-4.68 = TSH) BASIC METABOLIC [id number] 12:25:00 Test Item Value Reference Range Interpretation [...] CALCIUM (test code = MG/DL 8.7-9.7 CA) [id number] 12:25:00 Test Item Value Reference Range Interpretation Comments PHOSPHOROUS (test code = PHOS) MG/DL 2.5-4.5 [id number] 12:25:00 Test Item Value Reference Range Interpretation Comments MAGNESIUM (test code = MAG) MG/DL 1.6-2.3 T3,T4 [id number] 12:25:00 Test Item Value Reference Range Interpretation Comments T3 UPTAKE (test code = T3UP) % UP 23.5-40.5 T4 (THYROXINE) (test code = T4) UG/DL 5.53-11.0 T7 (FREE THYROXINE INDEX) (test code = 1.2-4.3 T7) THYROID STIMULATING [id number] 12:25:00 Test Item Value Reference Range Interpretation Comments THYROID STIMULATING HORMONE (test code MIU/L 0.465-4.68 = TSH) BASIC METABOLIC [id number] 12:23:00 Test Item Value Reference Range Interpretation [...] CALCIUM (test code = CA) MG/DL 8.7-9.7 [id number] 12:23:00 Test Item Value Reference Range Interpretation Comments PHOSPHOROUS (test code = PHOS) MG/DL 2.5-4.5 [id number] 12:23:00 Test Item Value Reference Range Interpretation Comments MAGNESIUM (test code = MAG) MG/DL 1.6-2.3 T3,T4 [id number] 12:23:00 Test Item Value Reference Range Interpretation Comments T3 UPTAKE (test code = T3UP) % UP 23.5-40.5 T4 (THYROXINE) (test code = T4) UG/DL 5.53-11.0 T7 (FREE THYROXINE INDEX) (test code = 1.2-4.3 T7) THYROID STIMULATING [id number] 12:23:00 Test Item Value Reference Range Interpretation Comments THYROID STIMULATING HORMONE (test code MIU/L 0.465-4.68 = TSH) BASIC METABOLIC [id number] 12:22:00 Test Item Value Reference Range Interpretation [...] CALCIUM (test code = CA) MG/DL 8.7-9.7 [id number] 12:22:00 Test Item Value Reference Range Interpretation Comments PHOSPHOROUS (test code = PHOS) MG/DL 2.5-4.5 [id number] 12:22:00 Test Item Value Reference Range Interpretation Comments MAGNESIUM (test code = MAG) MG/DL 1.6-2.3 T3,T4 [id number] 12:22:00 Test Item Value Reference Range Interpretation Comments T3 UPTAKE (test code = T3UP) % UP 23.5-40.5 T4 (THYROXINE) (test code = T4) UG/DL 5.53-11.0 T7 (FREE THYROXINE INDEX) (test code = 1.2-4.3 T7) THYROID STIMULATING [id number] 12:22:00 Test Item Value Reference Range Interpretation Comments THYROID STIMULATING HORMONE (test code MIU/L 0.465-4.68 = TSH) - XR HIP W/PEL UNI 2+V [id number] 11:43:00 Patient Name: DEBI GARRETT Unit No: [id number] EXAMS: CPT CODE: [id number] XR HIP W/PEL UNI 2+V RT [address] EXAM: - XR HIP W/PEL UNI 2+V [...] Guevara MD CC: Poli Aaron; Jana Acosta [employer] Technologist: Britney Myers, RT (R) Transcrpt Date/Tm/Trnsp: 08/08/2019 (1143) [email or web address] Orig Print D/T: S: 08/08/2019 (1147) [facility] NAME: DEBI GARRETT [id number] PHYS: DUSTY.Ric - Karla,[place] [address] : 1935 AGE: 84 SEX: F LOC: Z.SI05 A PHONE #: [phone] EXAM DATE: 08/08/2019 STATUS: ADM IN FAX #: [phone] RADIOLOGY NO: PAGE 1 Signed Report- CT HEAD/BRAIN W/O [id number] 11:40:00 Patient Name: DEBI GARRETT Unit No: [id number] EXAMS: CPT CODE: [id number] CT HEAD/BRAIN W/O CONT 18607 EXAMINATION: - CT HEAD/BRAIN W/O CONT. LOCATION: [...] Ever Finney CC: Poli Aaron; Jana Acosta [employer] Technologist: Filipe Perez, RT(R) CTDI: DLP: Trnscrpt: 08/08/2019 (1140) [email or web address] [facility] NAME: DEBI GARRETT [id number] PHYS: [place] [address] : 1935 AGE: 84 SEX: F LOC: Z.SI05 A PHONE #: [phone] EXAM DATE: 08/08/2019 STATUS: ADM IN FAX #: [phone] RAD #: D/C DT PAGE 1 Signed Report Patient Name: DEBI GARRETT Unit No: [id number] EXAMS: CPT CODE: [id number] CT HEAD/BRAIN W/O CONT 36405 (Continued) Orig Print D/T: S: 08/08/2019 (1143) [facility] NAME: DEBI GARRETT [address] PHYS: [email or web address] - Karla,[place], [place] [address]JUJ: 1935 AGE: 84 SEX: F LOC: Z.SI05 A PHONE #: [phone] EXAM DATE:08/08/2019 STATUS: ADM IN FAX #: [phone] RAD #: D/C DT PAGE 2 Signed Report- XR CHEST 1V 2019-08-08 08:51:00 Patient Name: DEBI GARRETT Unit No: [id number] EXAMS: CPT CODE: [id number] XR CHEST 1V 10450 EXAM: - XR CHEST 1V Location code:B2 [...] large effusion or right-sided pneumothorax.No acute osseous pa thology. IMPRESSION 1. No significant interval change in size of small left apical pneumothorax. 2. Mildly worsened left basilar atelectasis or developing infiltrate. at 0851 Reported and signed by: Kathrin Guevara MD CC: Poli Aaron; Jana Acosta [employer] Technologist: Octavio Lerner, RT(R) Transcrpt Date/Tm/Trnsp: 08/08/2019 (0851) [email or web address] Orig Print D/T: S: 08/08/2019 (0854) [facility] NAME: DEBI GARRETT [id number] PHYS: DUSTY. - Karla,[place] [address] : 1935 AGE: 84 SEX: F LOC: RUDY A PHONE #: [phone] EXAM DATE: 08/08/2019 STATUS: ADM IN FAX #: [phone] RADIOLOGY NO: PAGE 1 Signed Report ARTERY,[id number] 12:46:00 RUN DATE: 08/07/19 West - LAB PAGE 1 RUN TIME: 1246 Specimen Inquiry RUN USER: INTERFACE PATIENT: DEBI GARRETT LOC: ROCHELLEU U #: [id number] AGE/SX: 84/F ROOM: [facility] RE08/06/19REG DR: Robi Schroeder MD : 37 BED: A DIS: STATUS: ADM IN TLOC: SPEC #: [id number] RECD: 08/06/19 STATUS: DOV ESPARZA #: [id number] KELLE: 08/06/19 [facility]: Robi Schroeder MD ENTERED: 08/06/19 SP TYPE: ARTERY, PL OTHR DR: Self Referred Mirella Francis MD, Patricia Q MD Pepper, Gregory S MDORDERED: DECAL, SURG PATH LVL 3, SURG PATH LVL 4 CODES: [id number] - PLAQUE, NOS M38976 - ARTERY, NOS Z80477 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 [address] [place] [address] ICD CODES: 440 - PROCEDURES: DECAL (08/06/19) SURG PATH LVL 3 (08/06/19) SURG PATH LVL 4 (08/06/19) TISSUES: A. ARTERY, NOS -RT CAROTID PLAQUE B. LYMPH NODE, NOS - RT CERVICAL LYMPH NODE CONTINUED ON NEXT PAGE --------- ---RUN DATE: 08/07/19 [facility] PAGE 2 RUN TIME: 1246 Specimen Inquiry RUN USER: INTERFACE SPEC #: [id number] PATIENT: DEBI GARRETT #[id number] (Continued) CLINICAL HISTORY S/P RIGHT CEA CPT CODES CPT CODE(S): 16638 , 13727 ,89741 , , , , FINAL DIAGNOSIS A. Plaque, right carotid artery, endarterectomy: SEVERE CALCIFIC ATHEROSCLEROSIS B. Lymph node, right cervical, excisional biopsy: MILD TO MODERATE, NONSPECIFIC, REACTIVECHANGE NO SIGNIFICANT ATYPIA, MALIGNANCY, OR ABERRANT POPULATION OF LYMPHOCYTES DETECTED GROSS DESCRIPTION A. Right carotid plaque. Received is a segment of yellow-tatum plaque, measuring 4.3 x 0.8 x 0.7cm. Cut sections reveal a partially calcified surface. Sections submitted for decalcification as A1.B. Right cervical lymph node. Received are three [...] 1246 END OF REPORT - XR CHEST [id number] 10:56:00 Patient Name: DEBI GARRETT Unit No: [id number] EXAMS: CPT CODE: [id number] XR CHEST 1V 43946 EXAMINATION: - XR CHEST 1V. LOCATION: B2. [...] Ingram (RT) (R) Transcrpt Date/Tm/Trnsp: 08/07/2019 (1056) [email or web address] Orig Print D/T: S: 08/07/2019 (3610) [facility] NAME: DEBI GARRETT [address] PHYS: [place] [address] : 1935 AGE: 84SEX: F LOC: Z.SI01 A PHONE #: [phone] EXAM DATE: 08/07/2019 STATUS: ADM IN FAX #: [phone] RADIOLOGY NO: PAGE 1 Signed ReportBASIC METABOLIC [id number] 06:56:00 Test Item Value Reference Range Interpretation [...] CA) CBN DRAW LEFT TUBES FOR NURSE [id number] 06:56:00 Test Item Value Reference Range Interpretation Comments MAGNESIUM (test code = MAG) 1.8 MG/DL 1.6-2.3 N CBN DRAW LEFT TUBES FOR NURSE ROSIEBASIC METABOLIC [id number] 06:55:00 Test Item Value Reference Range Interpretation [...] CA) CBN DRAW LEFT TUBES FOR NURSE [id number] 06:55:00 Test Item Value Reference Range Interpretation Comments MAGNESIUM (test code = MAG) MG/DL 1.6-2.3 CBN DRAW LEFT TUBES FOR NURSE FELABASIC METABOLIC [id number] 06:53:00 Test Item Value Reference Range Interpretation [...] 8.7-9.7 CBN DRAW LEFT TUBES FOR NURSE [id number] 06:53:00 Test Item Value Reference Range Interpretation Comments MAGNESIUM (test code = MAG) MG/DL 1.6-2.3 CBN DRAW LEFT TUBES FOR NURSE FELACBC W/AUTO [id number] 06:42:00 Test Item Value Reference Range Interpretation [...] NRBC#) CBN DRAW LEFT TUBES FOR NURSE [facility] METABOLIC [id number] 13:33:00 Test Item Value Reference Range Interpretation [...] code = 10.0 MG/DL 8.4-10.2 N CA) [id number] 13:33:00 Test Item Value Reference Range Interpretation Comments MAGNESIUM (test code = MAG) 1.8 MG/DL 1.6-2.3 N BASIC METABOLIC [id number] 13:32:00 Test Item Value Reference Range Interpretation [...] CALCIUM (test code = MG/DL 8.7-9.7 CA) [id number] 13:32:00 Test Item Value Reference Range Interpretation Comments MAGNESIUM (test code = MAG) MG/DL 1.6-2.3 BASIC METABOLIC [id number] 13:30:00 Test Item Value Reference Range Interpretation [...] CALCIUM (test code = CA) MG/DL 8.7-9.7 [id number] 13:30:00 Test Item Value Reference Range Interpretation Comments MAGNESIUM (test code = MAG) MG/DL 1.6-2.3 BASIC METABOLIC [id number] 13:29:00 Test Item Value Reference Range Interpretation [...] CALCIUM (test code = CA) MG/DL 8.7-9.7 [id number] 13:29:00 Test Item Value Reference Range Interpretation Comments MAGNESIUM (test code = MAG) MG/DL 1.6-2.3 CBC W/AUTO [id number] 13:19:00 Test Item Value Reference Range Interpretation [...] K/mm3 0.0-0.1 N NRBC#) - XR CHEST [id number] 13:05:00 Patient Name: DEBI GARRETT Unit No: [id number] EXAMS: CPT CODE: [id number] XR CHEST 1V 54291 Site ID: [id number] HISTORY: Postoperative, right CEA COMPARISON: Chest x-ray July 29, 2019 FINDINGS: Subo ptimal inspiratory effort, with mild pulmonary vascular crowding/engorgement. [...] Technologist: Octavio Lerner, RT(R) Transcrpt Date/Tm/Trnsp: 08/06/2019 (2916) [email or web address] Orig PrintD/T: S: 08/06/2019 (4182) [facility] NAME: DEBI GARRETT [id number] PHYS: [place] [address] : 1935 AGE: 84 SEX: F LOC: Z.SI01 A PHONE #: [phone] EXAM DATE: 08/06/2019 STATUS: ADM IN FAX #: [phone] RADIOLOGY NO: PAGE 1 Signed ReportARTERIAL BLOOD [...] = 50 % COHBGFFIO2) Novel Coronavirus 2018 [id number] 08:07:00 Test Item Value Reference Range Interpretation Comments Novel Coronavirus 2019 Inhouse (test Negative Negative code = COVNONPUI) Novel Coronavirus 2018 [id number] 08:06:00 Test Item Value Reference Range Interpretation Comments Novel Coronavirus 2019 Inhouse (test Negative Negative code = COVNONPUI) HIV 12 AB [id number] 14:28:00 Test Item Value Reference Range Interpretation Comments HIV 1 2 COMBO AG/AB SCREEN AB/AG NON REACTIVE NONREACTIVE (test code = [id number]) BASIC METABOLIC [id number] 13:39:00 Test Item Value Reference Range Interpretation [...] 10.3 MG/DL 8.4-10.2 H CA) BASIC METABOLIC [id number] 13:38:00 Test Item Value Reference Range Interpretation [...] code = MG/DL 8.7-9.7 CA) BASIC METABOLIC [id number] 13:36:00 Test Item Value Reference Range Interpretation [...] code = CA) MG/DL 8.7-9.7 BASIC METABOLIC [id number] 13:35:00 Test Item Value Reference Range Interpretation [...] (test code = CA) MG/DL 8.7-9.7 PROTHROMBIN [id number] 13:32:00 Test Item Value Reference Range Interpretation Comments PROTHROMBIN TIME 11.2 SECONDS 9.4-12.5 N PATIENT (test code = PTP) INTERNATIONAL NORMAL 1.0 The INR is to be RATIO (test code = used only for INR) monitoring oral anticoagulantth erap y. INDICATION INR VALUE ---- ---- ---- -------1. Prophylaxis, de ep venous thrombos is, including high risk surgery. 2.0 - 3.0 2. Prophylaxis, deep venous thrombosis, hip surgery, treatm ent for deep venous thrombosis or pulmonary prevention of systemic emboli sm in patients wit h valvular heart disease, atrial fibrillation, tissue heart va lve, or acute myocar dial infarction. 2.0 - 3.0 3. [employer] Operator al prosthesis hear t valves, recurre nt systemic emboli sm. 3.0 - 4.5 PTT [id number] 13:32:00 Test Item Value Reference Range Interpretation Comments PTT ACTIVATED (test code = APTT) 35.5 SECONDS 25.1-36.5 N CBC W/AUTO [id number] 13:23:00 Test Item Value Reference Range Interpretation [...] 0.0-0.1 N NRBC#) - XR CHEST 2 [id number] 13:16:00 Patient Name: DEBI GARRETT Unit No: [id number] EXAMS: CPT CODE: [id number] XR CHEST 2 V 87290 Site ID: [id number] HISTORY: Preoperative, right carotid endarterectomy FINDINGS: The lungs are clear and normally expanded. The heart and pulmonary vasculature is normal. Previous coronary artery stenting noted. Osseous structures are unremarkable. IMPRESSION: No acute cardiopulmonary finding at 1316 Reported and signed by: Laith Salcido MD CC:Poli Aaron Technologist: Britney Myers RT (R) Transcrpt Date/Tm/Trnsp: 07/29/2019 (1316) t.[email or web address] Orig Print D/T: S: 07/29/2019 (1319) [facility] NAME: DEBI GARRETT [id number] PHYS:[place] [address] : 1935 AGE: 84 SEX: F LOC: Z.MSU PHONE #: [phone] EXAM DATE: 07/29/2019 STATUS: PRE IN FAX #: [phone] RADIOLOGY NO: PAGE 1 Signed ReportBASIC METABOLIC [id number] 06:23:00 Test Item Value Reference Range Interpretation [...] 0-189 mg/dL VERY HIGH.........>/ = 190 mg/dL [id number] 06:23:00 Test Item Value Reference Range Interpretation Comments MAGNESIUM (test code = MAG) 2.2 MG/DL 1.6-2.3 N PROTHROMBIN [id number] 06:16:00 Test Item Value Reference Range Interpretation [...] myocar dial infarction. 2.0 - 3.0 3. [employer]ushing [employer] Operator al prosthesis hear t valves, recurre nt systemic emboli sm. 3.0 - 4.5 PTT [id number] 06:16:00 Test Item Value Reference Range Interpretation Comments PTT ACTIVATED (test code = APTT) 33.9 SECONDS 25.1-36.5 N BASIC METABOLIC [id number] 06:11:00 Test Item Value Reference Range Interpretation [...] LDL (test MG/DL 0-99 code = LDL) [id number] 06:11:00 Test Item Value Reference Range Interpretation Comments MAGNESIUM (test code = MAG) MG/DL 1.6-2.3 BASIC METABOLIC [id number] 06:11:00 Test Item Value Reference Range Interpretation [...] LDL (test MG/DL 0-99 code = LDL) [id number] 06:11:00 Test Item Value Reference Range Interpretation Comments MAGNESIUM (test code = MAG) 2.2 MG/DL 1.6-2.3 N BASIC METABOLIC [id number] 06:08:00 Test Item Value Reference Range Interpretation [...] LDL (test code = LDL) MG/DL 0-99 [id number] 06:08:00 Test Item Value Reference Range Interpretation Comments MAGNESIUM (test code = MAG) MG/DL 1.6-2.3 CBC W/AUTO [id number] 06:00:00 Test Item Value Reference Range Interpretation [...]
--- NOTE | 2023-01-27 09:50 | RAD REPORT ---
EXAM DESCRIPTION: RAD - Chest Single View - 01/27/2023 9:42 am CLINICAL HISTORY: fall, hypotension COMPARISON: Chest Pa And Lat (2 Views) dated 07/16/2022; Chest Single View dated 05/01/2022; Chest Sing le View dated 09/28/2020; Chest Single View dated 08/12/2020 FINDINGS: Lines: None. Lungs: No evidence of edema or pneumonia. Pleural: No significant pleural effusions or pneumothorax. Cardiac: The heart size is within normal limits. Mediastinum: Within normal limits. Bones: No acute fractures. Other: Surgical clips at the right aspect of the neck. IMPRESSION: No acute cardiopulmonary disease.
[2023-01-27] MEDS ORDERED: NA CHLORIDE 0.9% 1,000 ML ONE (09:57)
[2023-01-27 10:20] LABS: Absolute Lymphocytes (CBC) 1.1 K/uL (0.7-4.9); Hematocrit 38.3 % (36.0-45.0); Lymphocytes % 14.3 % (15.3-44.8); MCV 86.8 fL (80-100); MPV 8.1 fL (7.6-11.3); Platelets 333 thou/uL (152-406); RBC Red Blood Cell Count 4.41 M/uL (3.86-4.86)
[2023-01-27 10:28] LABS: Protime INR 1.1
[2023-01-27 10:36] LABS: Albumin 3.8 g/dL (3.4-5.0); Bilirubin Total 0.8 mg/dL (0.2-1.0); Potassium 3.2 mEq/L (3.5-5.1); Protein, Total 7.2 g/dL (6.4-8.2)
--- NOTE | 2023-01-27 11:38 | RAD REPORT ---
EXAM DESCRIPTION: CT - Head C Spine Cap W Con - 01/27/2023 11:16 am CLINICAL HISTORY: Trauma, head and neck injury. Chest, abdomen and pelvis pain. fall, hypotension COMPARISON: Head C Spine Cap W Con dated 09/28/2020; Abdomen Pelvis W Contrast dated 10/18/2020 TECHNIQUE: CT head without contrast. CT cervical spine without contrast with coronal and sagittal reformatted images. CT chest, abdomen and pelvis with coronal and sagittal reformatted images of the spine. All CT scans are performed using dose optimization technique as appropriate and may include automated exposure control or mA/KV adjustment according to patient size. FINDINGS: CT HEAD WITHOUT CONTRAST: No intracranial hemorrhage, hydrocephalus or extra-axial fluid collection. No acute large vascular te rritory infarct. Mild chronic small vessel ischemic changes. The paranasal sinuses and mastoids are clear. The calvarium is intact. CT CERVICAL SPINE WITHOUT CONTRAST: No fracture or subluxation. The prevertebral soft tissues are normal in thickness.Multilevel degenerative changes are present in the spine. Varying degrees of neural foraminal narrowing noted. Surgical changes in the right aspect of the neck. Carotid calcifications . CT CHEST, ABDOMEN, PELVIS: Thorax: Chest Wall: No abnormal mass Lungs: No acute abnormality. Dependent atelectasis. Pleura: No effusions or pneumothorax. Sarah/Mediastinum: No lymphadenopathy. Aorta/Pulmonary Arteries: Unremarkable Heart: Normal size. Coronary artery calcifications. Abdomen/Pelvis: Liver: No acute abnormality or suspicious lesions. Biliary: No biliary ductal dilatation. Stomach: No significant focal abnormality. Duodenum: No significant focal abnormality. Pancreas: No significant abnormality. Spleen: No significant abnormality. Adrenal: No suspicious lesions. Kidney/ureter: No hydronephrosis. No renal calculi. Right lower pole renal lesion which is consistent with a cyst. Retroperitoneum: No retroperitoneal adenopathy. Vascular: No aneurysm. Atherosclerosis . Severe narrowing of the infrarenal abdominal aorta secondary to calcified plaque. Bowel: Diverticulosis without diverticulitis.. Peritoneum: No ascites or free air. Small fat containing umbilical hernia . Bladder: Grossly unremarkable. Reproductive: No adnexal masses. Bones: No acute fracture. Slight T4 compression deformity is chronic. Other: n/a IMPRESSION: Negative for acute traumatic findings. Incidental findings as noted above.
[2023-01-27 14:34] LABS: Specific Gravity 1.026 (1.005-1.030); Urine Bilirubin NEGATIVE (Negative); Urine Blood Negative (Negative); Urine Clarity Clear (Clear); Urine Color Light-Yellow (Yellow); Urine Glucose NEGATIVE (Negative); Urine Protein NEGATIVE (Negative); Urine Urobilinogen Normal (Normal); Urine pH 6.5 (5.0-7.0)
--- NOTE | 2023-01-27 15:22 | ER ---
Nurse's Notes [facility] Name: Leyda Ramos Age: 87 yrs Sex: Female : 1935 Arrival Date: 01/27/2023 Time: 09:25 Bed 2 Private MD: Diagnosis: Syncope;Hypotension, unspecified;Muscle weakness (generalized) Presentation: 01/27 09:32 Chief complaint: EMS states: Pt from [facility], staff heard her yelling ph for help, was found on ground w/ her walker laying across her, upon EMS arrival pt found to be slightly confused, hypotensive at 90s systolic, other VS WNL, upon arrival to ED pt A\T\Ox 4, GCS 15, other VSS, BGL WNL, pt reports feeling ill recently w/ dizziness, fatigue, nausea, and frequent urination. Coronavirus screen: Vaccine status: Patient reports receiving the 2nd dose of the covid vaccine. Ebola Screen: No symptoms or risks identified at this time. Initial Sepsis Screen: Does the patient meet any 2 criteria? Mean Arterial Pressure (MAP) < 65. Does the patient have a suspected source of infection? Yes: Dysuria/Frequency/Urgency/UTI. Risk Assessment: Do you want to hurt yourself or someone else? Patient reports no desire to harm self or others. Onset of symptoms was January 27, 2023. 09:32 Method Of Arrival: EMS: [facility] ph 09:32 Acuity: EVELIO 2 ph Triage Assessment: 09:37 General: Appears in no apparent distress. comfortable, Behavior is calm, cooperative, ph appropriate for age, Reports feeling ill for 12-24 hours, fatigue for. Pain: Denies pain. Neuro: Level of Consciousness is awake, obeys commands, lethargic, Oriented to person, place, time, situation, Reports dizziness. Cardiovascular: Capillary refill < 3 seconds in bilateral fingers Patient's skin is warm and dry. Respiratory: Airway is patent Respiratory effort is even, unlabored, Respiratory pattern is regular, symmetrical. GI: Reports nausea, Patient currently denies abdominal pain, diarrhea, vomiting. : Reports urinary frequency. Derm: Skin is pink, warm \T\ dry. Historical: - Allergies: 09:39 Augmentin; ph 09:39 Bactrim; ph 09:39 Hydrocodone-Acetaminophen; ph 09:39 PENICILLINS; ph - Home Meds: 09:41 amlodipine 5 mg oral tablet 1 tab daily [Active]; aspirin 81 mg Oral chew daily ph [Active]; Plavix 75 mg Oral tablet daily [Active]; donepezil 10 mg Oral Tablet every day at bedtime [Active]; duloxetine 20 mg Oral capsule daily [Active]; carvedilol 3.125 mg Oral tab 1 tab daily [Active]; levothyroxine 50 mcg tab 1 tab once daily [Active]; losartan 100 mg Oral tablet daily [Active]; pregabalin 100 mg Oral capsule every 12 hours [Active]; Lipitor 80 mg Oral tablet 1 tab daily [Active]; isosorbide dinitrate 30 mg Oral tablet 1 tab daily [Active]; hydrochlorothiazide 12.5 mg oral capsule daily [Active]; - PMHx: 09:39 Alzheimer's disease; chronic kidney disease; Chronic pain; pelvic; depressive disorder; ph GALLSTONES; chronic kidney disease; GERD; High Cholesterol; Hypercholesterolemia; Hypertension; Hypothyroidism; leaking heart valve; - Immunization history:: Adult Immunizations unknown. - Family history:: not pertinent. - Social history:: Smoking status: Patient denies any tobacco usage or history of. - Hospitalizations: : No recent hospitalization is reported. Screenin:39 [facility] ED Fall Risk Assessment (Adult) History of falling in the last 3 months, ph including since admission Yes- fall prone (multiple falls) (3 pts) Confusion or Disorientation No (0 pts) Intoxicated or Sedated No (0 pts) Impaired Gait Yes (1 pt) Mobility Assist Device Used Yes (1 pt) Altered Elimination Yes (1 pt) Score/Fall Risk Level 3 or more points = High Risk Oriented to surroundings, Maintained a safe environment, Provided non-skid footwear, Hourly rounding (assess needs \T\ fall precautionary measures) done, Used ambulatory aids as needed (educated on \T\ assisted with). Abuse screen: Denies threats or abuse. Denies injuries from another. Nutritional screening: No deficits noted. Tuberculosis screening: No symptoms or risk factors identified. Assessment: 09:38 General: SEE TRIAGE ASSESSMENT. ph 10:45 Reassessment: Patient appears in no apparent distress at this time. Patient and/or hb family updated on plan of care and expected duration. Pain level reassessed. Patient is alert, oriented x 3, equal unlabored respirations, skin warm/dry/pink. 12:00 Reassessment: Patient appears in no apparent distress at this time. No changes from hb previously documented assessment. Patient and/or family updated on plan of care and expected duration. Pain level reassessed. 13:00 Reassessment: Patient appears in no apparent distress at this time. Patient and/or hb family updated on plan of care and expected duration. Pain level reassessed. Patient is alert, oriented x 3, equal unlabored respirations, skin warm/dry/pink. 14:00 Reassessment: Patient appears in no apparent distress at this time. Patient and/or hb family updated on plan of care and expected duration. Pain level reassessed. Patient is alert, oriented x 3, equal unlabored respirations, skin warm/dry/pink. 15:00 Reassessment: Patient appears in no apparent distress at this time. Patient and/or hb family updated on plan of care and expected duration. Pain level reassessed. Patient is alert, oriented x 3, equal unlabored respirations, skin warm/dry/pink. 16:31 Reassessment: Patient appears in no apparent distress at this time. No changes from hb previously documented assessment. Patient and/or family updated on plan of care and expected duration. Pain level reassessed. 17:45 Reassessment: Patient appears in no apparent distress at this time. Patient and/or hb family updated on plan of care and expected duration. Pain level reassessed. Patient is alert, oriented x 3, equal unlabored respirations, skin warm/dry/pink. 18:35 Reassessment: Patient appears in no apparent distress at this time. Patient and/or hb family updated on plan of care and expected duration. Pain level reassessed. Patient is alert, oriented x 3, equal unlabored respirations, skin warm/dry/pink. Vital Signs: 09:32 BP 96 / 45; Pulse 52; Resp 18; Temp 97.5; Pulse Ox 95% on R/A; Weight 52.62 kg; Height ph 5 ft. 0 in. ; Pain 0/10; 09:50 Pulse Ox 87% on R/A; hb 10:15 BP 100 / 48; Pulse 56; Resp 17; Pulse Ox 96% on 2 lpm NC; hb 10:52 BP 126 / 54; Pulse 52; Resp 18; Pulse Ox 98% on 2 lpm NC; ph 12:45 BP 124 / 58; Pulse 64; Resp 15; Pulse Ox 97% on 2 lpm NC; hb 14:09 BP 137 / 65; Pulse 74; Resp 16; Pulse Ox 96% on 2 lpm NC; hb 15:12 BP 137 / 54; Pulse 70; Resp 17; Pulse Ox 86% on R/A; hb 16:31 BP 148 / 70; Pulse 77; Resp 16; Pulse Ox 96% on 2 lpm NC; hb 18:00 BP 139 / 59; Pulse 71; Resp 18; Pulse Ox 98% on 2 lpm NC; hb 18:53 BP 125 / 55; Pulse 70; Resp 15; Pulse Ox 98% on 2 lpm NC; hb 09:32 Body Mass Index 22.65 (52.62 kg, 152.4 cm) ph 09:32 Pain Scale: Adult ph 09:50 PLACED ON 2LNC hb 15:12 PLACED ON 2LNC hb ED Course: 09:27 Patient arrived in ED. rn 09:27 Bob Lam MD is Attending Physician. rn 09:32 Lena Srivastava RN is Primary Nurse. ph 09:37 Triage completed. ph 09:38 Arm band placed on Patient placed in an exam room, on a stretcher, on pulse oximetry. ph 09:44 Chest Single View XRAY In Process Unspecified. EDMS 09:44 Patient has correct armband on for positive identification. Bed in low position. Call ph light in reach. Side rails up X2. monitoring tech on. 10:08 Inserted saline lock: 20 gauge in right antecubital area, using aseptic technique. hb Blood collected. 10:14 Maintain EMS IV. Dressing intact. Good blood return noted. Site clean \T\ dry. Gauge \T\ hb site: 20 RFA. 11:18 CT Traumagram (Head C Spine CAP W Con) In Process Unspecified. EDMS 15:21 Lucretia Jacobs MD is Hospitalizing Provider. rn 17:30 Provided Education on: . hb 18:55 No provider procedures requiring assistance completed. Patient admitted, IV remains in hb place. Administered Medications: 10:15 Drug: NS 0.9% IV 1000 ml IV at 1000 ml once Route: IV; Rate: 1000 ml; Site: right hb forearm; Medication: 09:39 VIS not applicable for this client. ph Outcome: 15:21 Decision to Hospitalize by Provider. rn 18:55 Admitted to Med/surg room 202, Report called to JOSÉ Pavon hb 18:55 Condition: stable 18:55 Instructed on the need for admit, Demonstrated understanding of instructions, 19:13 Patient left the ED. hb Signatures: Dispatcher [employer] EDMS Bob Lam MD MD rn Hall, Patricia, RN RN ph Baxter, Heather, RN RN hb Corrections: (The following items were deleted from the chart) 15:14 15:12 BP 137 / 54; Pulse 70bpm; Resp 17bpm; Pulse Ox 87% RA; hb hb
--- NOTE | 2023-01-27 15:22 | EDPHYS ---
Physician Documentation [facility] Name: Leyda Ramos Age: 87 yrs Sex: Female : 1935 Arrival Date: 01/27/2023 Time: 09:25 Bed 2 Private MD: ED Physician Bob Lam HPI: 01/27 09:30 This 87 yrs old Female presents to ER via Unassigned with complaints of syncope, fall. rn 09:30 The patient has experienced syncope, collapsed, lost consciousness. Onset: The rn symptoms/episode began/occurred just prior to arrival. Duration: This was a single episode. Associated injury: Head/face:. Associated signs and symptoms: Pertinent positives: dizziness, Pertinent negatives: abdominal pain, chest pain, seizure, shortness of breath. Current symptoms:. The patient has not experienced similar symptoms in the past. Patient reports feeling ill for the last couple of days, increased urination, today was getting up to use the bathroom again when felt dizzy and lightheaded, had syncopal episode and found on the ground. Denies any new pain from the fall or injury. Reports chronic knee pain. EMS reports blood pressure was low, started fluids and blood pressure has responded. Afebrile.. Historical: - Allergies: 09:39 Augmentin; ph 09:39 Bactrim; ph 09:39 Hydrocodone-Acetaminophen; ph 09:39 PENICILLINS; ph - Home Meds: 09:41 amlodipine 5 mg oral tablet 1 tab daily [Active]; aspirin 81 mg Oral chew daily ph [Active]; Plavix 75 mg Oral tablet daily [Active]; donepezil 10 mg Oral Tablet every day at bedtime [Active]; duloxetine 20 mg Oral capsule daily [Active]; carvedilol 3.125 mg Oral tab 1 tab daily [Active]; levothyroxine 50 mcg tab 1 tab once daily [Active]; losartan 100 mg Oral tablet daily [Active]; pregabalin 100 mg Oral capsule every 12 hours [Active]; Lipitor 80 mg Oral tablet 1 tab daily [Active]; isosorbide dinitrate 30 mg Oral tablet 1 tab daily [Active]; hydrochlorothiazide 12.5 mg oral capsule daily [Active]; - PMHx: 09:39 Alzheimer's disease; chronic kidney disease; Chronic pain; pelvic; depressive disorder; ph GALLSTONES; chronic kidney disease; GERD; High Cholesterol; Hypercholesterolemia; Hypertension; Hypothyroidism; leaking heart valve; - Immunization history:: Adult Immunizations unknown. - Family history:: not pertinent. - Social history:: Smoking status: Patient denies any tobacco usage or history of. - Hospitalizations: : No recent hospitalization is reported. ROS: 09:30 Constitutional: Negative for fever, chills, and weight loss, Eyes: Negative for injury, rn pain, redness, and discharge, Neck: Negative for injury, pain, and swelling, Cardiovascular: Negative for chest pain, palpitations, and edema, Respiratory: Negative for shortness of breath, cough, wheezing, and pleuritic chest pain, Abdomen/GI: Negative for abdominal pain, nausea, vomiting, diarrhea, and constipation, Back: Negative for injury and pain, : Positive for increased urination MS/Extremity: Negative for injury and deformity, Skin: Negative for injury, rash, and discoloration, Neuro: Positive for headache and generalized weakness Exam: 09:30 Constitutional: This is a well developed, well nourished patient who is awake, alert, rn and in no acute distress. Head/Face: Normocephalic, atraumatic. ENT: Dry mucous membranes, no stridor Neck: In c-collar, no midline tenderness Chest/axilla: No focal tenderness or deformity, no crepitus Cardiovascular: Regular rate and rhythm. No pulse deficits. Respiratory: No increased work of breathing, no retractions or nasal flaring. Abdomen/GI: Soft, non-tender MS/ Extremity: Pulses equal, no cyanosis. Neurovascular intact. Full, normal range of motion. Equal circumference. Neuro: Awake and alert, GCS 15, oriented to person, place, time, and situation. Motor strength 4/5 in all extremities. Sensory grossly intact. 09:50 ECG was reviewed by the Attending Physician. rn Vital Signs: 09:32 BP 96 / 45; Pulse 52; Resp 18; Temp 97.5; Pulse Ox 95% on R/A; Weight 52.62 kg; Height ph 5 ft. 0 in. ; Pain 0/10; 09:50 Pulse Ox 87% on R/A; hb 10:15 BP 100 / 48; Pulse 56; Resp 17; Pulse Ox 96% on 2 lpm NC; hb 10:52 BP 126 / 54; Pulse 52; Resp 18; Pulse Ox 98% on 2 lpm NC; ph 12:45 BP 124 / 58; Pulse 64; Resp 15; Pulse Ox 97% on 2 lpm NC; hb 14:09 BP 137 / 65; Pulse 74; Resp 16; Pulse Ox 96% on 2 lpm NC; hb 15:12 BP 137 / 54; Pulse 70; Resp 17; Pulse Ox 86% on R/A; hb 16:31 BP 148 / 70; Pulse 77; Resp 16; Pulse Ox 96% on 2 lpm NC; hb 18:00 BP 139 / 59; Pulse 71; Resp 18; Pulse Ox 98% on 2 lpm NC; hb 18:53 BP 125 / 55; Pulse 70; Resp 15; Pulse Ox 98% on 2 lpm NC; hb 09:32 Body Mass Index 22.65 (52.62 kg, 152.4 cm) ph 09:32 Pain Scale: Adult ph 09:50 PLACED ON 2LNC hb 15:12 PLACED ON 2LNC hb MDM: 09:27 Patient medically screened. rn 15:20 Differential Diagnosis: aortic aneurysm, cardiac arrhythmia, emotional response, rn idiopathic syncope, vasovagal episode. Data reviewed: vital signs, nurses notes, lab test result(s), EKG, radiologic studies, CT scan, plain films, and as a result, I will admit patient. Consideration of Admission/Observation Patient was admitted/placed on observation. Escalation of care including admission/observation considered. Management of patient was discussed with the following: Hospitalist: Will admit patient. Independent interpretation of the following test(s) in the Emergency Department EKG: See my EKG interpretation above X-Ray: My interpretation is Chest x-ray images negative for pneumothorax or pneumonia per my interpretation. Counseling: I had a detailed discussion with the patient and/or guardian regarding the historical points, exam findings, and any diagnostic results supporting the discharge/admit diagnosis, lab results, radiology results, the need for further work-up and treatment in the hospital. Response to treatment: the patient's symptoms have mildly improved after treatment, and as a result, I will admit patient. ED course: Patient without clear etiology as to why she was hypotensive or had a syncopal episode. No acute traumatic findings. Will admit to hospitalist for further work-up.. 01/27 09:29 Order name: Blood Culture Adult (2) rn 01/27 09:29 Order name: CBC with Diff; Complete Time: 10:43 rn 01/27 09:29 Order name: CMP; Complete Time: 10:43 rn 01/27 09:29 Order name: Lactate w/ 2H reflex if indic.; Complete Time: 10:43 rn 01/27 09:29 Order name: Protime (+inr); Complete Time: 10:43 rn 01/27 09:29 Order name: Ptt, Activated; Complete Time: 10:43 rn 01/27 09:29 Order name: Urinalysis w/ reflexes; Complete Time: 15:14 rn 01/27 09:29 Order name: SARS RAPID rn 01/27 09:29 Order name: Flu; Complete Time: 12:14 rn 01/27 15:36 Order name: CBC with Automated Diff EDMS 01/27 15:36 Order name: CBC with Automated Diff EDMS 01/27 15:36 Order name: Comprehensive Metabolic Panel EDMS 01/27 15:36 Order name: Comprehensive Metabolic Panel EDMS 01/27 15:36 Order name: Troponin High Sensitivity EDMS 01/27 15:36 Order name: Troponin High Sensitivity EDMS 01/27 09:29 Order name: Chest Single View XRAY; Complete Time: 10:43 rn 01/27 09:29 Order name: CT Traumagram (Head C Spine CAP W Con); Complete Time: 12:14 rn 01/27 09:29 Order name: EKG; Complete Time: 09:29 rn 01/27 09:29 Order name: Accucheck; Complete Time: 09:45 rn 01/27 09:29 Order name: Cardiac monitoring; Complete Time: 09:45 rn 01/27 09:29 Order name: EKG - Nurse/Tech; Complete Time: 09:45 rn 01/27 09:29 Order name: IV Saline Lock - Large Bore; Complete Time: 09:45 rn 01/27 09:29 Order name: Labs collected and sent; Complete Time: 10:19 rn 01/27 09:29 Order name: O2 Per Protocol; Complete Time: 09:45 rn 01/27 09:29 Order name: O2 Sat Monitoring; Complete Time: 09:45 rn 01/27 09:29 Order name: Vital Signs; Complete Time: 09:45 rn EC:50 Rate is 52 beats/min. Rhythm is regular. QRS [place] is Normal. [place] interval is normal. QRS rn interval is normal. QT interval is normal. No Q waves. T waves are Normal. No ST changes noted. Clinical impression: Sinus bradycardia. Interpreted by me. Reviewed by me. Administered Medications: 10:15 Drug: NS 0.9% IV 1000 ml IV at 1000 ml once Route: IV; Rate: 1000 ml; Site: right hb forearm; Disposition Summary: 01/27/23 15:21 Hospitalization Ordered Notes: Hospitalization Status: Observation rn Provider: Lucretia Jacobs rn Location: Telemetry/MedSurg (observation) rn Condition: Stable rn Problem: new rn Symptoms: have improved rn Bed/Room Type: Standard rn Room Assignment: 202(01/27/23 17:53) eb Diagnosis - Syncope rn - Hypotension, unspecified rn - Muscle weakness (generalized) rn Forms: - Medication Reconciliation Form rn - SBAR form rn - Leadership Thank You Letter rn Signatures: Dispatcher [employer] EDMS Bob Lam MD MD rn Hall, Patricia, RN RN ph Baxter, Heather, RN RN hb Botello, Elizabeth eb Corrections: (The following items were deleted from the chart) 17:53 15:21 rn eb
[2023-01-27] MEDS ORDERED: MORPHINE 2 MG/ML SYR IV PRN (15:28)
[2023-01-27] MEDS ORDERED: ONDANSETRON 4 MG/2 ML VIAL IV PRN (15:28)
[2023-01-27 18:23] LABS: SARS-CoV-2 Antigen Rapid Res Negative (Negative)
[2023-01-27] MEDS: NA CHLORIDE 0.9% 1,000 ML IV SCH (20:28)
[2023-01-27 20:48] VITALS: BMI 22.6
[2023-01-28 03:17] LABS: Absolute Lymphocytes (CBC) 1.4 K/uL (0.7-4.9); Hematocrit 36.7 % (36.0-45.0); Lymphocytes % 17.3 % (15.3-44.8); MCV 86.5 fL (80-100); Platelets 246 thou/uL (152-406); RBC Red Blood Cell Count 4.25 M/uL (3.86-4.86)
[2023-01-28 03:41] LABS: Albumin 3.4 g/dL (3.4-5.0); Bilirubin Total 0.4 mg/dL (0.2-1.0); Potassium 3.2 mEq/L (3.5-5.1); Protein, Total 6.6 g/dL (6.4-8.2); Troponin High Sensitivity 11.1 pg/mL (<58.9)
[2023-01-28] MEDS: NA CHLORIDE 0.9% 1,000 ML IV SCH ×2 (08:32→23:02)
[2023-01-28] MEDS ORDERED: PNEUMOCOCCAL VACCINE 0.5 ML IMVAC ONE (12:00)
[2023-01-28] MEDS: ACETAMINOPHEN 500 MG TAB PO PRN (13:39)
[2023-01-28] MEDS: ISOSORBIDE MONO SR 30 MG TAB PO ONE ×2 (16:13→16:14)
--- NOTE | 2023-01-29 00:48 | P.HP ---
Certification for Inpatient Patient admitted to: Observation With expected LOS: <2 Midnights Patient will require the following post-hospital care: None Practitioner: I am a practitioner with admitting privileges, knowledge of patient current condition, hospital course, and medical plan of care. Services: Services provided to patient in accordance with Admission requirements found in Title 42 Section 412.3 of the Code of Federal Regulations Patient History Date of Service: 01/27/23 Reason for admission: Syncope and fall; Loss of consciousness History of Present Illness: Patient is an 87-year-old female who lives at [facility]/assisted living who presents to the emergency room after having a syncopal episode. Patient had loss of consciousness as well. Patient was brought into the emergency room for further evaluation. In the emergency room patient was slightly hypotensive. Patient was given IV fluids and patient's had a history of carotid artery disease with stenosis of 70 to 80%. Patient also has stenosis of the infrarenal aorta as well. Decision was made to go ahead and admit the patient to the hospital for observation. Allergies hydrocodone Adverse Reaction (Verified 09/28/20 21:39) Insomnia Home Medications: Clopidogrel Bisulfate [Plavix*] 75 mg PO DAILY 09/28/20 Duloxetine HCl [Cymbalta] 20 mg PO DAILY 09/28/20 Isosorbide Mononitrate [Isosorbide Mononitrate ER] 30 mg PO DAILY 09/28/20 Nature Made-Super Complex 1 tab PO DAILY 09/28/20 Pregabalin [Lyrica*] 100 mg PO BID 09/28/20 [place] Vitamin Suppleme 1 tab PO DAILY 09/28/20 Amlodipine [Norvasc*] 5 mg PO DAILY 30 Days #30 tab 10/01/20 Polyethylene Glycol 3350 [Miralax] 17 gm PO BEDTIME 10/01/20 Thiamine HCl [Vitamin B-1*] 100 mg PO DAILY #90 tablet 10/01/20 Atorvastatin Calcium [Lipitor] 80 mg PO BEDTIME 01/28/23 Carvedilol [Coreg] 3.125 mg PO DAILY 01/28/23 Docusate [Colace Cap*] 100 mg PO DAILY PRN 01/28/23 Levothyroxine Sodium 50 mcg PO DAILY 01/28/23 Losartan Potassium 100 mg PO DAILY 01/28/23 - Past Medical/Surgical History Diabetic: No -: Hypertension -: Hyperlipidemia -: Carotid arterial disease -: Atrial fibrillation on chronic anticoagulation therapy -: GERD -: Pudental nerve ablation -: Surgical hypothyroidism -: 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 -: Hearing loss -: Carotid enterectomy -: Thyroidectomy Psychosocial/ Personal History: Patient lives at home with family - Family History Father Family History: Reviewed- Non-Contributory - Social History Smoking Status: Former smoker Alcohol use: No CD- Drugs: Yes Caffeine use: Yes Place of Residence: [place] Review of Systems 10-point ROS is otherwise unremarkable Physical Examination - Vital Signs Temperature: 98.7 F Blood Pressure: 159/68 Pulse: 64 Respirations: 16 Pulse Ox (%): 92 - Physical Exam General: Alert, In no apparent distress, Oriented x3 HEENT: Atraumatic, PERRLA, Mucous membr. moist/pink, EOMI, Sclerae nonicteric Neck: Supple, No LAD, Without JVD or thyroid abnormality, Bruit Respiratory: Clear to auscultation bilaterally, Normal air movement Cardiovascular: Regular rate/rhythm, Normal S1 S2, Systolic murmur Gastrointestinal: Normal bowel sounds, Soft and benign, Non-distended, No tenderness Musculoskeletal: No clubbing, No swelling, No tenderness Integumentary: No rashes Neurological: Normal speech, Normal tone, Sensation intact, Cranial nerves 3-12 intact, Normal affect, Abnormal gait, Abnormal strength Lymphatics: No axilla or inguinal lymphadenopathy Assessment & Plan - Problems (Diagnosis) (1) Syncope and collapse Current Visit: Yes Status: Acute (2) Loss of consciousness Current Visit: Yes Status: Acute (3) STERLING (acute kidney injury) Current Visit: Yes Status: Acute (4) Hypokalemia Current Visit: Yes Status: Acute - Plan Plan: 1. Check orthostatics 2. Gentle hydration 3. Echocardiogram 4. MRI of the carotids and brain 5. Monitor labs 6. Physical therapy evaluation 7. Out of bed into a chair 8. Antivert 9. Monitor hemodynamics closely on telemetry 10. GI DVT prophylaxis Discharge Plan: Home Plan to discharge in: 48 Hours - Advance Directives Does patient have a Living Will: No Does patient have a Durable POA for Healthcare: No - Code Status/Comfort Care Code Status Assessed: Yes Code Status: Full Code Critical Care: No Time Spent Managing PTS Care (In Minutes): 45
--- NOTE | 2023-01-29 01:15 | P.PN ---
Subjective Date of Service: 01/28/23 Subjective: Improving Patient still gets lightheaded whenever she stands up. We tried to do orthostatic but she got lightheaded. We will go ahead and add meclizine to patient's home medications.Awaiting further diagnostic studies including MRI, echo, and also a physical therapy evaluation. Review of Systems 10-point ROS is otherwise unremarkable Physical Examination - Vital Signs Temperature: 98.7 F Blood Pressure: 159/68 Pulse: 64 Respirations: 16 Pulse Ox (%): 92 - Physical Exam General: Alert, In no apparent distress, Oriented x3 HEENT: EOMI Respiratory: Clear to auscultation bilaterally, Normal air movement Cardiovascular: Regular rate/rhythm, Normal S1 S2, No murmurs Gastrointestinal: Normal bowel sounds, Soft and benign, Non-distended, No tenderness Musculoskeletal: No clubbing, No swelling, No tenderness Integumentary: No rashes Neurological: Normal speech, Normal tone, Sensation intact, Cranial nerves 3-12 intact, Normal reflexes 2+, Normal affect, Abnormal gait, Abnormal strength Lymphatics: No axilla or inguinal lymphadenopathy - Studies Medications List Reviewed: Yes Assessment & Plan - Problems (Diagnosis) (1) Syncope and collapse Current Visit: Yes Status: Acute (2) Loss of consciousness Current Visit: Yes Status: Acute (3) STERLING (acute kidney injury) Current Visit: Yes Status: Acute (4) Hypokalemia Current Visit: Yes Status: Acute - Plan Plan: Continue with plan of care as mentioned below: 1. Check orthostatics 2. Gentle hydration 3. Echocardiogram 4. MRI of the carotids and brain 5. Monitor labs 6. Physical therapy evaluation 7. Out of bed into a chair 8. Antivert 9. Monitor hemodynamics closely on telemetry 10. GI DVT prophylaxis Discharge Plan: Home Plan to discharge in: 48 Hours - Advance Directives Does patient have a Living Will: No Does patient have a Durable POA for Healthcare: No - Code Status/Comfort Care Code Status: Full Code Critical Care: No Time Spent Managing PTS Care (In Minutes): 35
[2023-01-29] MEDS: ACETAMINOPHEN 500 MG TAB PO PRN (04:36)
[2023-01-29 05:32] LABS: Absolute Lymphocytes (CBC) 1.5 K/uL (0.7-4.9); Hematocrit 37.2 % (36.0-45.0); Lymphocytes % 20.2 % (15.3-44.8); MCV 86.5 fL (80-100); MPV 7.8 fL (7.6-11.3); Platelets 255 thou/uL (152-406)
[2023-01-29 06:20] LABS: Albumin 3.4 g/dL (3.4-5.0); Bilirubin Total 0.5 mg/dL (0.2-1.0); Magnesium 1.5 mg/dL (1.6-2.4); Potassium 3.1 mEq/L (3.5-5.1); Protein, Total 6.6 g/dL (6.4-8.2)
[2023-01-29] MEDS ORDERED: MAGNESIUM OXIDE 400 MG TAB PO ONE (06:35)
[2023-01-29] MEDS ORDERED: MAGNESIUM SULFATE 1 gm IVPB 1 GM/100 ML BAG IV ONE (06:36)
[2023-01-29] MEDS: LEVOTHYROXINE SOD 0.05 MG TABLET PO SCH ×2 (07:20→09:51)
[2023-01-29] MEDS: NA CHLORIDE 0.9% 1,000 ML IV SCH ×2 (07:41→21:33)
--- NOTE | 2023-01-29 08:18 | P.PN ---
Date of Service: 01/29/23 Subjective Alert and Oriented Patient still gets lightheaded whenever she stands up. On meclizine Awaiting further diagnostic studies including MRI, echo, and also a physical therapy evaluation. Denies any new complaints. Review of Systems 10-point ROS is otherwise unremarkable Physical Examination - Vital Signs Temperature: 97.5F Blood Pressure: 179/75 Pulse: 73 Respirations: 18 Pulse Ox (%): 92 - Physical Exam General: Alert, In no apparent distress, Oriented x3 HEENT: EOMI Respiratory: Clear to auscultation bilaterally, Normal air movement Cardiovascular: Regular rate/rhythm, Normal S1 S2, No murmurs Gastrointestinal: Normal bowel sounds, Soft and benign, Non-distended, No tenderness Musculoskeletal: No clubbing, No swelling, No tenderness Integumentary: No rashes Neurological: Normal speech, Normal tone, Sensation intact, Cranial nerves 3-12 intact, Normal reflexes 2+, Normal affect, Abnormal gait, Abnormal strength Lymphatics: No axilla or inguinal lymphadenopathy - Studies Medications List Reviewed: Yes (1) Syncope and collapse (2) Loss of consciousness (3) STERLING (acute kidney injury) (4) Hypokalemia (4) Hypomagnesemia: Assessment & Plan - Problems (Diagnosis) and Plan (1) Syncope and collapse Current Visit: Yes Status: Acute -Improving on Meclizine. -Fall precautions -Gentle hydration -Out of bed into a chair -Antivert -Monitor hemodynamics closely on telemetry (2) Loss of consciousness Current Visit: Yes Status: Acute -Resolved -MRI of the carotids and brain -Monitor labs - Physical therapy evaluation -Out of bed into a chair (3) STERLING (acute kidney injury) Current Visit: Yes Status: Acute -Improving. BRIANDA 12, Print Finisher 0.79 -Monitor labs - Gentle hydration (4) Hypokalemia Current Visit: Yes Status: Acute -Sr.Potassium 3.1. 40 meq po x1 given. -Recheck potassium in the evening (4) Hypomagnesemia: -Acute, Mag leve1.5 -Mag sulfate 1gm IVPb mag oxide 400mg po x 1 ordered -Recheck mag in the evening Code Status:Full code Diet: Regular DVT Prophylaxis: Lovenox
[2023-01-29] MEDS: MECLIZINE HCL 12.5 MG TAB PO SCH ×3 (09:49→21:36)
[2023-01-29] MEDS: carvediloL 3.125 MG TAB PO SCH (09:50)
[2023-01-29] MEDS: THIAMINE HCL 100 MG TABLET PO SCH (09:51)
[2023-01-29] MEDS: PREGABALIN 50 MG CAP PO SCH ×2 (09:51→21:36)
[2023-01-29] MEDS: POTASSIUM CL SA 10 MEQ TAB PO SCH (09:51)
[2023-01-29] MEDS: DULOXETINE 20 MG CAP PO SCH (09:51)
[2023-01-29] MEDS: CLOPIDOGREL 75 MG TABLET PO SCH (09:51)
--- NOTE | 2023-01-29 10:09 | RAD REPORT ---
EXAM DESCRIPTION: MRI - Brain W/Wo Cont - 01/29/2023 10:00 am CLINICAL HISTORY: Syncope Fall, trauma, head injury COMPARISON: Brain W/Wo Cont dated 09/30/2020 TECHNIQUE: Multi-sequence, multiplanar MR imaging of the brain was performed with contrast. FINDINGS: No intracranial hemorrhage, hydrocephalus, or extra-axial fluid collection.Mild confluent T2/FLAIR hyperintensity in the periventricular and deep white matter is present compatible with chron ic microvascular ischemic changes. No edema or shift of midline structures. No intracranial mass. DWI is negative for acute CVA. The midline structures are normally formed. Mastoid air cells and paranasal sinuses are clear. Post-contrast images show no abnormal enhancement to suggest tumor or infection. IMPRESSION: Negative for acute CVA or other acute intracranial process. No pathologic post-contrast enhancement suspected.
--- NOTE | 2023-01-29 10:12 | RAD REPORT ---
EXAM DESCRIPTION: MRI - MRA Neck W/Wo Cont - 01/29/2023 9:47 am CLINICAL HISTORY: carotid artery stenosis COMPARISON: MRA Neck W/Wo Cont dated 09/30/2020 FINDINGS: Contrast enhance 2D [id number] MR angiography of the neck vessels was performed. A left aortic arch is noted with bovine branching pattern of the great vessels, normal variant. The common carotid arteries and subclavian arteries are patent bilaterally. No significant right-sided carotid stenosis. There is moderate to severe stenosis of the left carotid bulb noted focally. Estimated stenosis of 80 -90% based on NASCET criteria. Antegrade flow is seen in both vertebral arteries, right-sided dominant. IMPRESSION: Moderate to severe stenosis left carotid bulb with estimated at 80-90% based on NASCET shawanda bridges. NASCET criteria used. Mild 0-49% stenosis Moderate 50-69% stenosis Severe 70-99% stenosis
[2023-01-29 20:58] LABS: Potassium 3.8 mEq/L (3.5-5.1)
[2023-01-29] MEDS: POLYETHYL GLY 3350 17 GM/DOSE PO SCH (21:36)
[2023-01-29] MEDS: ATORVASTATIN 80 MG TAB PO SCH (21:36)
[2023-01-30] MEDS: THIAMINE HCL 100 MG TABLET PO SCH ×2 (08:39→08:46)
[2023-01-30] MEDS: CLOPIDOGREL 75 MG TABLET PO SCH (08:39)
[2023-01-30] MEDS: DOCUSATE NA 100 MG CAP PO PRN (08:39)
[2023-01-30] MEDS: carvediloL 3.125 MG TAB PO SCH (08:39)
[2023-01-30] MEDS: DULOXETINE 20 MG CAP PO SCH (08:45)
[2023-01-30] MEDS: POTASSIUM CL SA 10 MEQ TAB PO SCH (08:45)
[2023-01-30] MEDS: MECLIZINE HCL 12.5 MG TAB PO SCH ×3 (08:45→21:02)
[2023-01-30] MEDS: PREGABALIN 50 MG CAP PO SCH ×2 (08:46→21:02)
[2023-01-30] MEDS: NA CHLORIDE 0.9% 1,000 ML IV SCH (08:46)
--- NOTE | 2023-01-30 11:17 | P.PN ---
Subjective Date of Service: 01/30/23 Chief Complaint: Syncope and fall; Loss of consciousness Subjective: No new changes, Improving, Doing well Review of Systems 10-point ROS is otherwise unremarkable Physical Examination - Vital Signs Temperature: 97.9 F Blood Pressure: 198/100 Pulse: 67 Respirations: 17 Pulse Ox (%): 96 - Physical Exam General: Alert, Cooperative HEENT: Atraumatic, PERRLA Neck: Supple, 2+ carotid pulse no bruit Respiratory: Clear to auscultation bilaterally, Normal air movement Capillary refill: <2 Seconds Gastrointestinal: Normal bowel sounds - Studies Medications List Reviewed: Yes Assessment And Plan - Plan Assessment & Plan - Problems (Diagnosis) and Plan (1) Syncope and collapse Current Visit: Yes Status: Acute -Improving on Meclizine. -Fall precautions -Gentle hydration -Out of bed into a chair -Antivert -Monitor hemodynamics closely on telemetry (2) Loss of consciousness Current Visit: Yes Status: Acute -Resolved -MRI of the carotids and brain -Monitor labs - Physical therapy evaluation -Out of bed into a chair (3) STERLING (acute kidney injury) Current Visit: Yes Status: Acute -Improving. BRIANDA 12, Guillotine Trimmer 0.79 -Monitor labs - Gentle hydration (4) Hypomagnesemia: -Acute, improving -Replace electrolytes as per hospital protocol -Recheck mag in the morning Plan to discharge in: 24 Hours - Code Status/Comfort Care Code Status Assessed: Yes (Full code) Code Status: Full Code Physician Review: Patient Assessed, Agree with Above Assessment and Plan Critical Care: Yes Time Spent Managing PTS Care (In Minutes): 35 (Minutes)
[2023-01-30] MEDS ORDERED: LOSARTAN POTASSIUM 50 MG TABLET PO SCH (13:00)
[2023-01-30] MEDS: POLYETHYL GLY 3350 17 GM/DOSE PO SCH (21:02)
[2023-01-30] MEDS: ATORVASTATIN 80 MG TAB PO SCH (21:03)
[2023-01-30] MEDS: ACETAMINOPHEN 500 MG TAB PO PRN (21:10)
[2023-01-31 03:58] LABS: Magnesium 1.8 mg/dL (1.6-2.4); Phosphorus 3.4 mg/dL (2.5-4.9)
[2023-01-31] MEDS ORDERED: HYDRALAZINE HCL 25 MG TABLET PO SCH (06:53)
[2023-01-31] MEDS ORDERED: MAGNESIUM SULFATE 1 gm IVPB 1 GM/100 ML BAG IV ONE (09:00)
[2023-01-31] MEDS: DOCUSATE NA 100 MG CAP PO PRN (09:41)
[2023-01-31] MEDS: DULOXETINE 20 MG CAP PO SCH (09:41)
[2023-01-31] MEDS: THIAMINE HCL 100 MG TABLET PO SCH (09:41)
[2023-01-31] MEDS: CLOPIDOGREL 75 MG TABLET PO SCH (09:42)
[2023-01-31] MEDS: POTASSIUM CL SA 10 MEQ TAB PO SCH (09:42)
[2023-01-31] MEDS: carvediloL 3.125 MG TAB PO SCH (09:42)
[2023-01-31] MEDS: LEVOTHYROXINE SOD 0.05 MG TABLET PO SCH (09:42)
--- NOTE | 2023-01-31 09:46 | P.DS ---
Admission Date: 01/29/23 Discharge Date: 01/31/23 Disposition: ROUTINE DISCHARGE Discharge Condition: GOOD Reason for Admission: Syncope and fall; Loss of consciousness Brief History of Present Illness: Date of admission: 01/27/23 Reason for admission: Syncope and fall; Loss of consciousness History of Present Illness: Patient is an 87-year-old female who lives at [facility]/assisted living who presents to the emergency room after having a syncopal episode. Patient had loss of consciousness as well. Patient was brought into the emergency room for further evaluation. In the emergency room patient was slightly hypotensive. Patient was given IV fluids and patient's had a history of carotid artery disease with stenosis of 70 to 80%. Patient also has stenosis of the infrarenal aorta as well. Decision was made to go ahead and admit the patient to the hospital for observation. Hospital Course: Ms. Nely Ramos is a pleasant 87-year-old female with a past medical history significant for hypertension, carotid artery disease who was admitted to the [facility] on 01/29/2023 for evaluation after a syncopal episode. Patient was admitted in the hospital for further monitoring as an initial blood pressure was low she was given IV fluids. Her blood pressure got stabilized. All the laboratory findings are within normal limits. Patient heart MRI of the head and neck. On 01/28/2023 showing moderate to severe stenosis of left carotid bulb. Patient's home medications were resumed. Patient noted to have her blood pressure on the higher side. New hypertensive medication hydralazine 25 mg added to her medication list. On 01/31/2023, patient was was seen on morning rounds and deemed medically stable for discharge. Patient was discharged with instructions to schedule follow-up appointments with her PCP in 3 to 5 days her marketing budget analyst in 1 to 2 weeks. Patient was was provided prescriptions for hydralazine 25 mg 3 times a day. The patient and family (granddaughter Shantell) was given the opportunity to ask questions and reported no further questions. Furthermore, all questions were answered to the best of my ability Vital Signs/Physical Exam: Temp Pulse Resp BP Pulse Ox 98.3 F 111 H 18 160/80 H 94 01/31/23 04:00 01/31/23 04:00 01/31/23 04:00 01/31/23 04:00 01/31/23 04:00 Laboratory Data at Discharge: WBC 7.20 thou/uL (4.3-10.9) 01/29/23 05:18 Hgb 12.7 g/dL (12.0-15.0) 01/29/23 05:18 Hct 37.2 % (36.0-45.0) 01/29/23 05:18 Plt Count 255 thou/uL (152-406) 01/29/23 05:18 PT 12.1 SECONDS (9.5-12.5) 01/27/23 10:08 INR 1.10 01/27/23 10:08 APTT 27.7 SECONDS (24.3-36.9) 01/27/23 10:08 Sodium 137 mEq/L (136-145) 01/31/23 03:10 Potassium 4.0 mEq/L (3.5-5.1) 01/31/23 03:10 BUN 21 mg/dL (7-18) H 01/31/23 03:10 Creatinine 0.82 mg/dL (0.55-1.02) 01/31/23 03:10 Glucose 95 mg/dL (74-106) 01/31/23 03:10 Phosphorus 3.4 mg/dL (2.5-4.9) 01/31/23 03:10 Magnesium 1.8 mg/dL (1.6-2.4) 01/31/23 03:10 Total Bilirubin 0.5 mg/dL (0.2-1.0) 01/29/23 05:18 AST 21 U/L (15-37) 01/29/23 05:18 ALT 31 U/L (13-56) 01/29/23 05:18 Alkaline Phosphatase 62 U/L (45-117) 01/29/23 05:18 Home Medications: Clopidogrel Bisulfate [Plavix*] 75 mg PO DAILY 09/28/20 Duloxetine HCl [Cymbalta] 20 mg PO DAILY 09/28/20 Isosorbide Mononitrate [Isosorbide Mononitrate ER] 30 mg PO DAILY 09/28/20 Nature Made-Super Complex 1 tab PO DAILY 09/28/20 Pregabalin [Lyrica*] 100 mg PO BID 09/28/20 [place] Vitamin Suppleme 1 tab PO DAILY 09/28/20 Amlodipine [Norvasc*] 5 mg PO DAILY 30 Days #30 tab 10/01/20 Polyethylene Glycol 3350 [Miralax] 17 gm PO BEDTIME 10/01/20 Thiamine HCl [Vitamin B-1*] 100 mg PO DAILY #90 tablet 10/01/20 Atorvastatin Calcium [Lipitor] 80 mg PO BEDTIME 01/28/23 Carvedilol [Coreg] 3.125 mg PO DAILY 01/28/23 Docusate [Colace Cap*] 100 mg PO DAILY PRN 01/28/23 Levothyroxine Sodium 50 mcg PO DAILY 01/28/23 Losartan Potassium 100 mg PO DAILY 01/28/23 Hydralazine [Apresoline*] 25 mg PO TID 30 Days #90 tab 01/31/23 Losartan Potassium [Cozaar*] 100 mg PO DAILY 01/31/23 Potassium Oral Tab [Klor-Con 10 mEq Tab*] 40 meq PO DAILY tab 01/31/23 New Medications: Hydralazine [Apresoline*] 25 mg PO TID 30 Days #90 tab Physician Discharge Instructions: Ms. Nely Ramos is a pleasant 87-year-old female with a past medical history significant for hypertension, carotid artery disease who was admitted to the [facility] on 01/29/2023 for evaluation after a syncopal episode. Patient was admitted in the hospital for further monitoring as an initial blood pressure was low she was given IV fluids. Her blood pressure got stabilized. All the laboratory findings are within normal limits. Patient heart MRI of the head and neck. On 01/28/2023 showing moderate to severe stenosis of left carotid bulb. Patient's home medications were resumed. Patient noted to have her blood pressure on the higher side. New hypertensive medication hydralazine 25 mg added to her medication list. On 01/31/2023, patient was was seen on morning rounds and deemed medically stable for discharge. Patient was discharged with instructions to schedule follow-up appointments with her PCP in 3 to 5 days her marketing budget analyst in 1 to 2 weeks. Patient was was provided prescriptions for hydralazine 25 mg 3 times a day. The patient and family (granddaughter Shantell) was given the opportunity to ask questions and reported no further questions. Furthermore, all questions were answered to the best of my ability. Diet: Low sodium Activity: Ad xu Followup: Gabby Shi MD [Primary Care Provider] -
[2023-01-31 10:12] VITALS: O2SAT 91
[2023-01-31 17:52] VITALS: BP 120/58; TEMP 97.7
[2023-02-01] MEDS ORDERED: HOME MED 1 EA UNK (Losartan Potassium [Losartan Potassium] 100 MG Tablet) PO SCH (09:00)
[2023-02-01] MEDS ORDERED: AMLODIPINE 5 MG TAB PO SCH (09:00)
== END 2023-01-31 19:55 | disposition home or self-care (01) | DRG 312 ==
LOC: ER 09:25 → ERHOLD 15:28 → 2ND 18:44 → OBSVTOIN 01-29 16:08
PROVIDERS: ADMIT Hospitalist; ATTEND Internal Medicine Nephrology
DX: R55 Syncope and collapse (principal); N17.9 Acute kidney failure, unspecified; I12.9 Hypertensive chronic kidney disease with stage 1 through stage 4 chronic kidney disease, or unspecified chronic kidney disease; N18.9 Chronic kidney disease, unspecified; K21.9 Gastro-esophageal reflux disease without esophagitis; E03.9 Hypothyroidism, unspecified; E78.00 Pure hypercholesterolemia, unspecified; E87.6 Hypokalemia; E83.42 Hypomagnesemia; Z88.1 Allergy status to other antibiotic agents; Z88.5 Allergy status to narcotic agent; Z88.0 Allergy status to penicillin; Z79.82 Long term (current) use of aspirin; Z79.02 Long term (current) use of antithrombotics/antiplatelets; Z79.890 Hormone replacement therapy; Z87.891 Personal history of nicotine dependence; Z79.899 Other long term (current) drug therapy; W19.XXXA Unspecified fall, initial encounter; Y93.9 Activity, unspecified; Y99.9 Unspecified external cause status; Y92.129 Unspecified place in nursing home as the place of occurrence of the external cause
CPT/HCPCS: 36415; 70450; 70549; 70553; 71045; 71260; 72125; 74177; 80048; 80053; 81003; 82533; 82607; 82947; 83540; 83605; 83735; 83880; 84100; 84439; 84443; 84484; 85025; 85610; 85730; 87040; 87804; 87811; 93005; 97116; 97161; 97530; 99285; A9577; G0378; J2405; J3475; J7030; J8597; Q9967

== ENCOUNTER 2023-02-01 12:01 | Inpatient (IN) | payer OTHER ==
--- OUTSIDE RECORDS SUMMARY | 2023-02-01 12:10 | XMS REPORT | Continuity of Care Document ---
:1935 Author Organization [facility] t Address [address] [facility] [place] [address] Care Team Providers Name Role Phone FOUND, PCP NOT Primary Care Physician Unavailable Robi Schroeder Attending Clinician Unavailable Kathrin Barrett Attending Clinician Unavailable Debora Marques MA Attending Clinician Unavailable Ruben TRUPIN, Adrianna Rojas Attending Clinician Galen TURPIN, Poli Lyman Attending Clinician [phone] Chelly Stahl Attending Clinician Unavailable Caden Hamlin [...] left of left 00 l knee knee Complex Complex Disease Active Methodi tear of tear of -28 st medial medial 00:00: Hospita meniscus meniscus 00 l of left of left knee as knee as current current injury injury Primary Primary Disease Active Methodi localized localized 9-28 st osteoarthr osteoarthr 00:00: Ho spita osis of osis of 00 l left lower left lower leg leg 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 She remains on atorvasta tin 80 mg daily and Levoxyl 2 g twice a day. Menopausal Menopausal Disease Active 2011-03 M ethodi symptom symptom 2 st 00:00: Hospita 00 l Restless Restless [...] hydrocod DA Active SV 2020-0 [facility] one -14 00:00: [address] sulfamet DA Active SV 2020-0 [facility] hoxazole -14 00:00: [address] trimetho DA Active SV 2020-0 [facility] prim -14 00:00: [address] hydrocod DA Active SV allergy 2020-0 [facility] one -14 00:00: [address] sulfamet DA Active SV allergy 2020-0 [facility] hoxazole 5-14 00:00: [address] trimetho DA Active SV allergy 2020-0 [facility] prim -14 00:00: [address] Penicill DA Active U RASH [facility] ins 07-28 Clear 00:00: [facility] Penicill DA Active U [facility] ins 07-28 West 00:00: [address] Sulfamet Propensi Active Rash 2017-03 Method i hoxazole ty to 0 st -Trimeth adverse 00:00: Hospita oprim reaction 00 l s to drug Penicill Propensi Active Rash 2017-03 Method i ins ty to adverse 00:00: Hospita reaction 00 l s to drug hydrocod DA Active SV [facility] one 10-21 Clear 00:00: [facility] sulfamet DA Active SV [facility] hoxazole 10-21 Clear 00:00: [facility] trimetho DA Active SV [facility] prim 10-21 Clear 00:00: [facility] hydrocod DA Active SV allergy [facility] one 10-21 Clear 00:00: [facility] sulfamet DA Active SV allergy [facility] hoxazole 10-21 Clear 00:00: [facility] trimetho DA Active SV allergy [facility] prim 10-21 Clear 00:00: [facility] Sulfamet Propensi Active Other (See Me thodi [...] Univers BRANDI-POT 0-19 ity of CLAVULAN 00:00: [address] HYDROCOD DRUG Active Med Other-Cmnt 2014-03 [...] Natural brother Diabetes [facility] Natural brother Prostate cancer [facility] father Lung cancer [facility] Natural mother [facility] Natural sister Heart disease [facility] Natural son [facility] Social History Social Habit Start Date Stop Date Quantity Comments Source Gender identity 2020-10-20 Identifies as Method ist 18:21:27 female gender Hospital (finding) Sexual orientation Method ist Hospital History SDOH University o f Alcohol Std Drinks [place] [facility] History SDOH University o f Alcohol Binge [place] [facility] al [facility] History SDOH Social Unive rsity of Connections Get [place] Med ical Together Branch History SDOH Social Unive rsity of Connections [facility] Medical Branch History SDOH Social Unive rsity of Connections [place] [facility] Membership Branch History SDOH Social Unive rsity of Connections [place] [facility] Meetings Branch History SDOH 2022-08-14 2022-08-14 [...] University o f Physical Activity 00:00:00 00:00:00 [place] M edical DPW Branch History SDOH 2022-08-14 2022-08-14 0 University o f Physical Activity 00:00:00 00:00:00 [facility] edical MPS Branch History SDOH 2022-08-14 2022-08-14 5 University o f Financial 00:00:00 00:00:00 [place] [facility] History SDOH Food 2022-08-14 2022-08-14 1 Univers ity of Worry 00:00:00 00:00:00 [place] [facility] History SDOH Food 2022-08-14 2022-08-14 1 Univers ity of Scarcity 00:00:00 00:00:00 [place] [facility] History SDOH 2022-08-14 2022-08-14 2 University o f Transport Med 00:00:00 00:00:00 [place] Medic al [facility] History SDOH 2022-08-14 2022-08-14 2 University o f Transport Non-Med 00:00:00 00:00:00 [place] M edical Branch History SDOH 2022-08-14 2022-08-14 2 University o f Housing Unable to 00:00:00 00:00:00 [place] M edical Pay Branch History SDOH 2022-08-14 2022-08-14 1 [place] o f Housing Places 00:00:00 00:00:00 [place] Medi merissa Lived Branch History SDOH 2022-08-14 2022-08-14 2 University o f Housing Homeless 00:00:00 00:00:00 [place] Me dical Last Year Branch Exposure to 2022-08-03 2022-08-13 Not sure University of SARS-CoV-2 (event) 00:00:00 17:27:00 [facility] Alcohol intake 2022-07-06 2022-07-06 Current Religious 00:00:00 00:00:00 non-drinker of Hospital alcohol (finding) [...] l day) - Reported Cigarette 2021-12-21 2021-12-21 Religious pack-years 00:00:00 00:00:00 Hospital Tobacco use and 2015-01-13 2015-01-13 Smokeless tobacco Un iversity of exposure 00:00:00 00:00:00 non-user [facility] History of tobacco 1955-06-13 1965-03-10 Cigarette Smoker Religious use 00:00:00 00:00:00 Hospital Sex Assigned At [birth year] [facility] y of 00:00:00 00:00:00 [facility] Smoking Status Start Date Stop Date Source Never smoked tobacco BILL rene (finding) Ex-smoker 2015-01-13 00:00:00 2015-01-13 00:00:00 [facility] Medications Ordered Filled Start Stop Current Ordering Indication Dosage Frequency Signature Comments Components Source Medication Medication Date Date Medication? Clinician (SIG) Name Name pantoprazol 2022- No [id number] 40mg Take 1 Univers e 40 mg EC 5-25 06-25 tablet by ity of tablet 00:00: 04:59 mouth in [place] 00 :00 the Medical morning Branch for 30 days. pantoprazol 2022- No [id number] 40mg Take 1 Univers e 40 mg EC 5-25 06-25 tablet by ity of tablet 00:00: 04:59 mouth in [place] 00 :00 the Medical morning Branch for [...] by ity of tablet 16:30: mouth in [place] [address] the Medical morning. Branch vitamin 2023-0 Yes 1000ug Take 1,000 Un amber B-12 5-24 mcg by ity of (VITAMIN 16:30: mouth [place] B-12) 1,000 45 daily. Medica l mcg tablet Branch DULoxetine 2023-0 Yes 20mg Take 1 Unive rs 20 mg 5-24 capsule by ity of capsule 16:30: mouth in [place] [address] the Medical morning. 2 Branch cap daily carvediloL 2023-0 Yes 3.125mg Take 1 Un amber 3.125 mg 5-24 tablet by ity of tablet 16:30: mouth in [place] [address] the Medical morning Branch and 1 tablet in the evening. Take with meals. pregabalin 2023-0 Yes 100mg Take 1 Univ ers 100 mg 5-24 capsule by ity of capsule 16:30: mouth in [place] [address] the Medical morning Branch and 1 capsule in the evening. clopidogreL 2023-0 Yes 75mg Take 1 Univ ers 75 mg 5-24 tablet by ity of tablet 16:30: mouth in [place] [address] the Medical morning. Branch donepeziL 3-0 Yes 10mg Take 1 Univer s 10 mg 5-24 tablet by ity of tablet 16:30: mouth at [place] [address] bedtime. Medical Branch amLODIPine 3-0 Yes 5mg Take 1 Unive rs 5 mg tablet 5-24 tablet by ity of 16:30: mouth in [place] [address] the Medical morning. Branch isosorbide 2023-0 Yes 30mg Take 1 Unive rs dinitrate 5-24 tablet by ity o f 30 mg 16:30: mouth in [place] tablet 45 the Medical morning. Branch levothyroxi 2023-0 Yes 50ug Take 1 Univ ers ne 5-24 tablet by ity of (SYNTHROID) 16:30: mouth in [place] 50 mcg 45 the Medical tablet morning. Branch losartan 2023-0 Yes 100mg Take 1 Univer s (COZAAR) 5-24 tablet by ity of 100 mg 16:30: mouth in [place] tablet 45 the Medical morning. Branch atorvastati 2023-0 Yes 80mg Take 1 Univ ers n 80 mg 5-24 tablet by ity of tablet 16:30: mouth in [place] [address] the Medical morning. Branch vitamin 2023-0 Yes 1000ug Take 1,000 Un amber B-12 5-24 mcg by ity of (VITAMIN 16:30: mouth [place] B-12) 1,000 45 daily. Medica l mcg tablet Branch DULoxetine 3-0 Yes 20mg Take 1 Unive rs 20 mg 5-24 capsule by ity of capsule 16:30: mouth in [place] [address] the Medical morning. 2 Branch cap daily carvediloL 3-0 Yes 3.125mg Take 1 Un amber 3.125 mg 5-24 tablet by ity of tablet 16:30: mouth in [place] [address] the Medical morning Branch and 1 tablet in the evening. Take with meals. pregabalin 2023-0 Yes 100mg Take 1 Univ ers 100 mg 5-24 capsule by ity of capsule 16:30: mouth in [place] [address] the Medical morning Branch and 1 capsule in the evening. clopidogreL 3-0 Yes 75mg Take 1 Univ ers 75 mg 5-24 tablet by ity of tablet 16:30: mouth in [place] [address] the Medical morning. Branch donepeziL 2022-0 Yes 10mg Take 1 Univer s 10 mg 5-24 tablet by ity of tablet 16:30: mouth at [place] [address] bedtime. Medical Branch amLODIPine 3-0 Yes 5mg Take 1 Unive rs 5 mg tablet 5-24 tablet by ity of 16:30: mouth in [place] [address] the Medical morning. Branch isosorbide 2022-0 Yes 30mg Take 1 Unive rs dinitrate 5-24 tablet by ity o f 30 mg 16:30: mouth in [facility] 45 the Medical morning. Branch thyroid 15 3-0 2022- No 15mg Take 1 Univ ers mg tablet 5-24 05-24 tablet by ity of 12:48: 00:00 mouth in [place] 57 :00 the Medical morning. Branch fenofibrate 2023-0 2023- No 54mg Take 1 Uni vers (TRICOR) 54 5-24 05-24 tablet by it y of mg tablet 12:48: 00:00 mouth in [facility] as 57 :00 the Medical morning. Branch hydroCHLORO 2023-0 3- No 12.5mg Take 1 U nivers thiazide 5-24 05-24 capsule by ity of 12.5 mg 12:48: 00:00 mouth in [place] capsule 57 :00 the Medical morning. Branch hydralAZINE Yes 10mg 10 mg, Univ ers (APRESOLINE - Slow IV ity o f ) injection 02:08: Push, [place] 10 mg 51 Q4HPRN, Medical Starting Branch on Sun08/15/22 at 2108, Until Discontinu ed, Routine, DBP=>10 0; SBP=>160 ampicillin 2022-0 2022- No [id number] 500mg Take 1 Univers 500 mg 08-16 capsule by ity of capsule 00:00: 04:59 mouth [place] 00 :00 every 6 Medical (six) Branch hours for 3 days. ampicillin 2022-0 2022- No [id number] 500mg Take 1 Univers 500 mg 08-16- [...] 2022- No 1000mg 1,000 mg, Univers (ROCEPHIN) 08-15 IV ity of 1,000 mg in 00:00: 23:59 Piggyback, [place] NaCl 0.9% 00 :00 Q24H ABX, Medic al (NS) 100 mL 7 doses, Bran ch MINI-BAG First dose (after last reorder) on Sun08/14/22 at 1900, Last dose on Sun08/20/22 at 1900, Administer over 30 Minutes, 100 mL
Reas on for Anti-Infec tive: Empiric Non-Surgic al Prophylaxi s
Durat ion of therapy: 72 hours lactated 2022-2022- No 500mL at 999 Unive rs ringers IV 08-14 05-22 mL/hr, 500 it y of infusion 17:45: 18:18 mL, IV [place] 500 mL 00 :54 Infusion, Medical ONCE, 1 Branch dose, On Sun08/14/22 at 1245, STAT pantoprazol 0 Yes 40mg 40 mg, Univ ers e 08-14 Oral, ity of (PROTONIX) 14:00: DAILY, [place] EC tablet 00 First dose Medi merissa 40 mg on Sun [place] 08/14/22 at 0900, Until Discontinu ed, Routine isosorbide 2022-0 Yes 30mg 30 mg, Unive rs dinitrate 08-14 Oral, ity of (ISORDIL) 14:00: DAILY, [place] tablet 30 00 First dose Medi merissa mg on Sun [place] 08/14/22 at 0900, Until Discontinu ed, Routine losartan 2022-0 Yes 100mg 100 mg, Unive rs (COZAAR) 08-14 Oral, ity of tablet 100 14:00: DAILY, [place] mg 00 First dose Medical on Sun [place] 08/14/22 at 0900, Until Discontinu ed, Routine DULoxetine 2022-0 Yes 20mg 20 mg, Unive rs (CYMBALTA) 08-14 Oral, ity of capsule 20 14:00: DAILY, [place] mg 00 First dose Medical on [facility] 08/14/22 at 0900, Until Discontinu ed, Routine clopidogreL 2022-0 Yes 75mg 75 mg, Univ ers (PLAVIX) 75 08-14 Oral, ity of mg tablet 14:00: DAILY, [place] 75 mg 00 First dose Medical on Sun [place] 08/14/22 at 0900, Until Discontinu ed, Routine atorvastati 2022-0 Yes 80mg 80 mg, Univ ers n (LIPITOR) 08-14 Oral, ity of tablet 80 14:00: DAILY, [place] mg 00 First dose Medical on [facility] 08/14/22 at 0900, Until Discontinu ed, Routine amLODIPine 2022-0 Yes 5mg 5 mg, Univer s (NORVASC) 08-14 Oral, ity of tablet 5 mg 14:00: DAILY, [place] 00 First dose Medical on [facility] 08/14/22 at 0900, Until Discontinu ed, Routine enoxaparin 2022-0 Yes 40mg 40 mg, Unive rs (LOVENOX) 08-14 Subcutaneo ity of injection 14:00: [place], [place], [place] 40 mg 00 First dose Medical on [facility] 08/14/22 at 0900, Until Discontinu ed, Routine hydroCHLORO 2023-0 2023- No 12.5mg 12.5 mg, Univers thiazide 5-22 05-23 Oral, ity of (ESIDRIX) 14:00: 15:48 DAILY, [place] tablet 12.5 00 :16 First dose Me dical mg on [facility] 08/14/22 at 0900, Until Discontinu ed pregabalin Yes 100mg 100 mg, Uni vers (LYRICA) 08-14 Oral, BID, ity o f capsule 100 13:00: First dose [place] mg 00 on [facility] 08/14/22 at Branch 0800, Until Discontinu ed, Routine carvediloL Yes 3.125mg 3.125 mg, Univers (COREG) 08-14 Oral, BID ity of tablet 13:00: MEALS, [place] 3.125 mg 00 First dose Medic al on [facility] 08/14/22 at 0800, Until Discontinu ed, Routine levothyroxi Yes 50ug 50 mcg, Uni vers ne 08-14 Oral, ity of (SYNTHROID) 11:00: QAM-0600, [place] tablet 50 00 First dose Medi merissa mcg on [facility] 08/14/22 at 0600, Until Discontinu ed, Routine gabapentin 2022- No 600mg Take 2 Uni vers (NEURONTIN) 08-14 capsules ity of 300 mg 02:57: 00:00 by mouth [place] capsule 12 :00 in the Medical morning Branch and 2 capsules in the evening. linaCLOtide 2022- No 145ug Take 1 Un amber 145 mcg 08-14 capsule by ity o f capsule 02:57: 00:00 mouth in [place] 12 :00 the Medical morning. Branch acidophilus 0 2022- No 1{capsu Take 1 Cap Univers -pectin, 08-14 le} by mouth ity of citrus 100 02:57: 00:00 daily. [place] million 12 :00 Medical cell-10 mg Branch Cap coenzyme 2022- No 100mg Take 1 Unive rs Q10 100 mg 08-14 capsule by it y of softgel 02:57: 00:00 mouth in [place] 12 :00 the Medical morning. Branch multivit-mi [...] IV Push, ity of (PF)) 02:29: Q6HPRN, [place] injection 4 01 Starting Medi merissa mg on [facility] 08/13/22 at 2128, Until Discontinu ed, Routine, Nausea and Vomiting (N/V) acetaminoph Yes 650mg 650 mg, Un amber en 08-14 Oral, ity of (TYLENOL) 02:28: Q6HPRN, [place] tablet 650 39 Starting Medic al mg on [facility] 08/13/22 at 2127, Until Discontinu ed, Routine, Pain (scale 1-3) iopamidol 2022- No [id number] 100mL 100 mL, Univers (ISOVUE 08-14 Intravenou ity o f 370-500 mL) 02:00: 02:00 s, ONCE, 1 [place] injection 00 :00 dose, On Medica l 100 mL [facility] 08/13/22 at 2100, Routine cloNIDine 2022- No .1mg 0.1 mg, Univ ers (CATAPRES) 08-14 Oral, ity of tablet 0.1 00:15: 00:30 ONCE, 1 [place] as mg 00 :00 dose, On Medical Sun Branch 08/13/22 at 1915, STAT cefTRIAXone 2022-2022- No 1000mg 1,000 mg, Univers (ROCEPHIN) 08-14-22 IV ity of 1,000 mg in 00:00: 00:45 Piggyback, [place] NaCl 0.9% 00 :00 ONCE, 1 Medical (NS) 100 mL dose, On Bran ch MINI-BAG [place] 08/13/22 at 1900, Administer over 30 Minutes, 100 mL
Reas on for Anti-Infec tive: Empiric Non-Surgic al Prophylaxi s
Durat ion of therapy: 72 hours NaCl 0.9% 2022- No 500mL at 999 Univ ers (NS) bolus 08-13 mL/hr, 500 it y of infusion 23:15: 01:00 mL, IV [place] 500 mL 00 :00 Infusion, Medical ONCE, 1 Branch dose, On [place] 08/13/22 at 1815, STAT fluticasone 2022-0 Yes [id number] SPRAY 2 Methodi propionate 5-[address] (FLONASE) 00:00: INTO EACH Hos yoan 50 00 NOSTRIL l mcg/actuati EVERY DAY on nasal spray fluticasone 2022-0 Yes [id number] SPRAY 2 Methodi propionate 5-[address] (FLONASE) 00:00: INTO EACH Hos yoan 50 00 NOSTRIL l mcg/actuati EVERY DAY on nasal spray fluticasone 2022-0 Yes [id number] SPRAY 2 Methodi propionate 5-[address] (FLONASE) 00:00: INTO EACH Hos yoan 50 00 NOSTRIL l mcg/actuati EVERY DAY on nasal spray fluticasone 2022-0 Yes [id number] SPRAY 2 Methodi propionate 5-[address] [...] B-12, 01 l (VITAMIN B-12 ORAL) hydroCHLORO 0 Yes 12.5mg QD Take 1 Me thodi thiazide 1-[address] (HYDRODIURI 13:35: (12.5 mg Ho spita L) 12.5 MG 01 total) by l tablet mouth every morning. hydroCHLORO 2021-03 No 25mg QD Take 25 mg Methodi thiazide 2-10 04- by mouth st (HYDRODIURI 10:02: 00:00 daily. Hos yoan L) 25 MG 43 :00 l tablet hydroCHLORO 2021-03- No 25mg QD Take 25 mg Methodi thiazide 2-10 04- by mouth st (HYDRODIURI 10:02: 00:00 daily. Hos yoan L) 25 MG 43 :00 l tablet hydroCHLORO 2021-03- No 25mg QD Take 25 mg Methodi thiazide 2-10 04- by mouth st (HYDRODIURI 10:02: 00:00 daily. Hos yoan L) 25 MG 43 :00 l tablet hydroCHLORO 2021-03- No 25mg QD Take 25 mg Methodi thiazide 2-10 04-[address] (HYDRODIURI 10:02: 00:00 daily. Hos yoan L) 25 MG 43 :00 l tablet hydroCHLORO 2021-03- No 25mg QD Take 25 mg Methodi thiazide 2-10 04-[address] (HYDRODIURI 10:02: 00:00 [...] 100mg QD Take 100 M ethodi (PACERONE) 05-02 12-[address] 200 MG 10:01: [...] by l mouth daily. fluticasone 2021-03 Yes [id number] 100ug QD 2 sprays Methodi propionate 2-07 ([address] (FLONASE) 00:00: total) by Hos yoan 50 00 Each Nare l mcg/actuati route on nasal daily. spray losartan 2021-03 Yes 100mg QD Take 1 Method i (COZAAR) 2-[address] 100 MG 00:00: (100 mg Hospita tablet 00 total) by l mouth daily. fluticasone 2021-03 Yes [id number] 100ug QD 2 sprays Methodi propionate 2-07 [...] by l mouth daily. fluticasone 2021-03- No [id number] 100ug QD 2 sprays Methodi propionate 2-07 05-15 ([address] (FLONASE) 00:00: 00:00 total) by Ho spita 50 00 :00 Each Nare l mcg/actuati route on nasal daily. spray fluticasone 2021-03- No [id number] 100ug QD 2 sprays Methodi propionate 2-07 05-15 ([address] (FLONASE) 00:00: 00:00 total) by Ho spita 50 00 :00 Each Nare l mcg/actuati route on nasal daily. spray fluticasone 2021-03- No [id number] 100ug QD 2 sprays Methodi propionate 05-02 05-15 ([address] (FLONASE) 00:00: 00:00 total) by Ho spita 50 00 :00 Each Nare l mcg/actuati route on nasal daily. spray fluticasone 2021-03- No [id number] 100ug QD 2 sprays Methodi propionate 05-02 [...] solution COCONUT OIL 2021-03- No Take by [facility] ORAL 04-[address] 14:06: 00:00 Hospita 36 :00 l COCONUT OIL 2021-03- No Take by [facility] ORAL 04-[address] 14:06: 00:00 Hospita 36 :00 l COCONUT OIL 2021-03- No Take by Mt thodi ORAL 04-[address] 14:06: 00:00 Hospita 36 :00 l COCONUT OIL 2021-03- No Take by Mt thodi ORAL 04-[address] 14:06: 00:00 Hospita 36 :00 l COCONUT OIL 2021-03- No Take by Mt thodi ORAL 04-[address] 14:06: 00:00 Hospita 36 :00 l oxyCODone-a 2021-03- No [id number] 1{tbl} Q6H Take 1 Methodi cetaminophe 04-[address] n 00:00: 05:59 mouth Hospita (PERCOCET) 00 :00 every 6 l 5-325 mg (six) per tablet hours as needed for moderate pain for up to 5 days .acute pain. Max Daily Amount: 4 tablets oxyCODone-a 2021-03 [place] [id number] 1{tbl} Q6H Take 1 Methodi cetaminophe 04-01 [...] tablet 00 by mouth l daily. atorvastati 2022-0 Yes 80mg QD Take 1 Meth mike n (LIPITOR) 9-30 tablet (80 st 80 MG 00:00: mg total) Hospita tablet 00 by mouth l daily. atorvastati 2022-0 Yes 80mg QD Take 1 Meth mike n (LIPITOR) 9-30 tablet (80 st 80 MG 00:00: mg total) Hospita tablet 00 by mouth l daily. atorvastati 2022-0 Yes 80mg QD Take 1 Meth mike n (LIPITOR) 9-30 tablet (80 st 80 MG 00:00: mg total) Hospita tablet 00 by mouth l daily. atorvastati 2022-0 Yes 80mg QD Take 1 Meth mike n (LIPITOR) 9-30 tablet (80 st 80 MG 00:00: mg total) Hospita tablet 00 by mouth l daily. atorvastati 2022-0 Yes 80mg QD Take 1 Meth mike n (LIPITOR) 9-30 tablet (80 st 80 MG 00:00: mg total) Hospita tablet 00 by mouth l daily. atorvastati 2022-0 Yes 80mg QD Take 1 Meth mike n (LIPITOR) 9-30 tablet (80 st 80 MG 00:00: mg total) Hospita tablet 00 by mouth l daily. levothyroxi 2022-0 2022- No 88ug QD Take 1 Met hodi ne 9-30 10-21 tablet (88 st (SYNTHROID) 00:00: 00:00 mcg total) Hospita 88 mcg 00 :00 by mouth l tablet every morning. levothyroxi 2022-0 2022- No 88ug QD Take 1 Met hodi ne 9-30 10-21 tablet (88 st (SYNTHROID) 00:00: 00:00 mcg total) Hospita 88 mcg 00 :00 by mouth l tablet every morning. levothyroxi 2022-0 2022- No 88ug QD Take 1 Met hodi ne 9-30 10-21 tablet (88 st (SYNTHROID) 00:00: 00:00 mcg total) Hospita 88 mcg 00 :00 by mouth l tablet every morning. levothyroxi 2022-0 2022- No 88ug QD Take 1 Met hodi ne -30 10-21 tablet (88 st (SYNTHROID) 00:00: 00:00 mcg total) Hospita 88 mcg 00 :00 by mouth l tablet every morning. apixaban 2021-0 2- No 2.5mg Q.5D Take [...] 100mg QD Take 100 Meth mike (COZAAR) -[address] 100 MG 09:45: mouth [...] 48 l cyanocobala Yes Take by Met rudy min, 12-[address] vitamin 09:45: Hospita B-12, 48 l (VITAMIN B-12 ORAL) COCONUT OIL 0 Yes Take by Met lalii ORAL 12-[address] 09:45: Hospita 48 [...] latanoprost 2021-0 2- No Metho di (XALATAN) 10-07-15 st 0.005 % 11:20: 00:00 Hospita ophthalmic 36 :00 l solution latanoprost 2-0 2- No Metho di (XALATAN) 10-07-15 st 0.005 % 11:20: 00:00 Hospita ophthalmic [...] acid 2-0 Yes 1mg QD Take 1 Metho di (FOLVITE) 1 7-05 tablet (1 st MG tablet 00:00: mg total) Hos yoan 00 by mouth l daily. folic acid 2-0 Yes 1mg QD Take 1 Metho di (FOLVITE) 1 7-05 tablet (1 st MG tablet 00:00: mg total) Hos yoan 00 by mouth l daily. folic acid 2-0 Yes 1mg QD Take 1 Metho di (FOLVITE) 1 7-05 tablet (1 st MG tablet 00:00: mg total) Hos yoan 00 by mouth l daily. folic acid 2-0 Yes 1mg QD Take 1 Metho di (FOLVITE) 1 7-05 tablet (1 st MG tablet 00:00: mg total) Hos yoan 00 by mouth l daily. folic acid 2022-0 Yes 1mg QD Take 1 Metho di (FOLVITE) 1 7-05 tablet (1 st MG tablet 00:00: mg total) Hos yoan 00 by mouth l daily. pantoprazol 2-0 2021- No 20mg QD Take 20 mg Methodi e 5-25 08-[address] (PROTONIX) 00:00: 00:00 daily. Hosp dinora 20 MG EC 00 :00 l tablet pantoprazol 2-0 2022- No 20mg QD Take 20 mg Methodi e 25 -[address] (PROTONIX) 00:00: 00:00 daily. Hosp dinora 20 MG EC 00 :00 l tablet pantoprazol 2-0 2022- No 20mg QD Take 20 mg Methodi e 525 -[address] (PROTONIX) 00:00: 00:00 daily. Hosp dinora 20 MG EC 00 :00 l tablet pantoprazol 2-0 2022- No 20mg QD Take 20 mg Methodi e 525 -[address] (PROTONIX) 00:00: 00:00 daily. [...] :00 total) by l mouth daily. valACYclovi 2021-2021- No 500mg QD Take 1 Me thodi r (VALTREX) 3-30 - tablet st 500 MG 00:00: 00:00 (500 mg Hospita tablet 00 :00 total) by l mouth daily. valACYclovi 2021-2021- [...] :00 outbreak l pregabalin 2021- No 50mg [id number] Take 50 mg Methodi (LYRICA) 50 03-31 [id number] by mouth 3 st MG capsule 09:42: [...] mg 16 :00 l per tablet ondansetron No Metho di ODT 03-31 st (ZOFRAN-ODT 09:28: 00:00 Hospi ta ) 4 MG 12 :00 l disintegrat ing tablet traMADoL No Methodi (ULTRAM) 50 03-31 st mg tablet 09:25: 00:00 Hospita 58 :00 l UBIDECARENO 2021- No 1{tbl} QD Take 1 M ethodi NE (COQ-10 -08 24-[address] ORAL) 09:25: 00:00 mouth Hospita 51 :00 daily. l pregabalin 2-0 Yes 50mg QD Take 1 Metho di (LYRICA) 50 1-[address] MG capsule 00:00: (50 mg Hospi ta 00 total) by l mouth nightly. pregabalin 2-0 Yes 50mg QD Take 1 Metho di (LYRICA) 50 1-[address] MG capsule 00:00: (50 mg Hospi ta 00 total) by l mouth nightly. pregabalin 2-0 Yes 50mg QD Take 1 Metho di (LYRICA) 50 1-[address] MG capsule 00:00: (50 mg Hospi ta 00 total) by l mouth nightly. pregabalin 2-0 Yes 50mg QD Take 1 Metho di (LYRICA) 50 1-[address] MG capsule 00:00: (50 mg Hospi ta 00 total) by l mouth nightly. pregabalin 2-0 Yes 50mg QD Take 1 Metho di (LYRICA) 50 1-[address] MG capsule 00:00: (50 mg Hospi ta 00 total) by l mouth nightly. pregabalin 2-0 Yes 50mg QD Take 1 Metho di (LYRICA) 50 1-[address] MG capsule 00:00: (50 mg Hospi ta 00 total) by l mouth nightly. pregabalin 2021-0 2022- No 50mg QD Take 1 Meth mike (LYRICA) 50 03-31-[address] MG capsule 00:00: 05:59 (50 mg Hosp din[facility] 00 :00 total) by l mouth nightly. levothyroxi 2020-03- No TAKE 1 Met hodi ne 2-[address] (SYNTHROID) 00:00: 00:00 MOUTH [facility] 100 mcg 00 :00 EVERY DAY l tablet fenofibrate 2020-03- No TAKE 1 Met hodi (TRICOR) 48 0-12 09-[address] MG tablet 00:00: 00:00 MOUTH Hospit a 00 :00 EVERYDAY l AT BEDTIME fenofibrate 2020-03- No TAKE 1 Met hodi (TRICOR) 48 0-12 09-[address] MG tablet 00:00: 00:00 [...] 2021- No 1{tbl} 1 tablet. Methodi en-codeine 09-28-06 st (TYLENOL 00:00: 00:00 Hospita WITH 00 :00 l CODEINE #3) 300-30 mg per tablet diclofenac Yes [id number] APPLY 2 Methodi (VOLTAREN) 4-[address] 1 % gel 00:00: RIGHT KNEE Hosp dinora 00 4 TIMES A l DAY NEEDED FOR PAIN diclofenac 2021- No [id number] APPLY 2 [facility] (VOLTAREN) 4-26 11-[address] 1 % gel 00:00: 00:00 RIGHT KNEE Hos yoan 00 :00 4 TIMES A l DAY NEEDED FOR PAIN diclofenac 2021- No [id number] APPLY 2 [facility] (VOLTAREN) 4-26 11-[address] 1 % gel 00:00: 00:00 RIGHT KNEE Hos yoan 00 :00 4 TIMES A l DAY NEEDED FOR PAIN diclofenac 2021- No [id number] APPLY 2 [facility] (VOLTAREN) 4-26 11-[address] 1 % gel 00:00: 00:00 RIGHT KNEE Hos yoan 00 :00 4 TIMES A l DAY NEEDED FOR PAIN diclofenac 2021- No [id number] APPLY 2 [facility] (VOLTAREN) 4-26 11-[address] 1 % gel 00:00: 00:00 RIGHT KNEE Hos yoan 00 :00 4 TIMES A l DAY NEEDED FOR PAIN diclofenac 2021- No [id number] APPLY 2 [facility] (VOLTAREN) -26 11-[address] 1 % gel 00:00: 00:00 RIGHT KNEE Hos yoan 00 :00 4 TIMES A l DAY NEEDED FOR PAIN potassium 2019-03- No TAKE 1 Metho di chloride 0-12 03-[address] (K-DUR) 20 00:00: 00:00 MOUTH Hospi ta MEQ CR 00 :00 EVERY DAY l tablet Apixaban 2019-0 No 2.5mg Twice [facility] (Eliquis) 09-24 Day S 2.5 Mg TAB 12:37: Health 00 Apixaban 2019-0 No 2.5mg [facility] (Eliquis) 09-24 st 2.5 Mg TAB 12:37: [place] 00 na LIVE HCIS valACYclovi 2021- No TAKE 1 Met hodi r (VALTREX) 2-17 - TABLET BY st 500 MG 00:00: 00:00 MOUTH Hospita tablet 00 :00 EVERY DAY l omega-3 2021- No TAKE 2 Methodi acid ethyl 3-24 - CAPSULES st esters 00:00: 00:00 BY MOUTH [...] 20 Health Meq TABCR Atorvastati No 80mg [place] n Calcium st (Lipitor) [place] 80 Mg TAB na LIVE HCIS Clopidogrel No 75mg [place] Bisulfate st (Plavix) 75 [place] Mg TAB na LIVE HCIS Duloxetine No 60mg [place] Hcl st (Cymbalta) [place] 60 Mg CPDR na LIVE HCIS Fenofibrate No 150mg [place] (Lipofen) st 150 Mg CAP [place] na LIVE HCIS Isosorbide No 30mg South Dinitrate st (Isordil) [place] 30 Mg TAB na LIVE HCIS Levothyroxi No 75ug [place] ne Sodium st (Synthroid) [place] 75 Mcg na LIVE TABLET HCIS Potassium No [address] (K-Dur) 20 [place] Meq TABCR na LIVE HCIS Immunizations Ordered Immunization Filled Date Status Comments Sour ce Name Immunization Name Tdap 2022-01-19 Completed Religious 00:00:00 [facility] Tdap 2022-01-19 Completed Religious 00:00:00 [facility] Tdap 2022-01-19 Completed Religious 00:00:00 [facility] FLUZONE HIGH-DOSE PF 2021-12-15 Completed Meth odist 00:00:00 [facility] FLUZONE HIGH-DOSE PF 2021-12-15 Completed Meth odist 00:00:00 [facility] FLUZONE HIGH-DOSE PF 2021-12-15 Completed Meth odist 00:00:00 [facility] FLUZONE HIGH-DOSE PF 2021-03-31 Completed Meth odist 00:00:00 [facility] FLUZONE HIGH-DOSE PF 2021-03-31 Completed Meth odist 00:00:00 [facility] FLUZONE HIGH-DOSE PF 2021-03-31 Completed Meth odist 00:00:00 [facility] FLUZONE HIGH-DOSE PF 2021-03-31 Completed Meth [facility]ist 00:00:00 [facility]21-[facility]-02 Completed Method[facility] t MRNA VACCINATION 00:00:00 [facility]2021-02-02 Completed [facility] MRNA VACCINATION 00:00:00 [place] [id number] 2021-02-02 Completed Method[facility] t MRNA VACCINATION 00:00:00 [place] [id number] 2021-02-02 Completed [facility] t MRNA VACCINATION 00:00:00 [facility] FLUZOOK HIGH-DOSE 2020-12-21 Completed Meth odist 00:00:00 [facility] FLUZOOK HIGH-DOSE PF 2020-12-21 Completed Meth odist 00:00:00 [facility] FLUZONE HIGH-DOSE PF 2020-12-21 Completed Meth odist 00:00:00 [facility] FLUZOOK HIGH-DOSE PF 2020-12-21 Completed Meth odist 00:00:00 [place] [id number] 2020-05-27 Completed Method[facility] t MRNA VACCINATION 00:00:00 [place] [id number] 2020-05-27 Completed [facility] t MRNA VACCINATION 00:00:00 [place] [id number] 2020-05-27 Completed [facility] t MRNA VACCINATION 00:00:00 [place] [id number] 2020-05-27 Completed Method[facility] t MRNA VACCINATION 00:00:00 [place] [id number] 2020-05-27 Completed [facility] t MRNA VACCINATION 00:00:00 [place] [id number] 2020-05-27 Completed Method[facility] t MRNA VACCINATION 00:00:00 [place] [id number] 2020-05-27 Completed Method[facility] t MRNA VACCINATION 00:00:00 [place] [id number] 2020-05-27 Completed Method[facility] t MRNA VACCINATION 00:00:00 [place] [id number] 2020-05-01 Completed Method[facility] t MRNA VACCINATION 00:00:00 [place] [id number] 2020-05-01 Completed [facility] t MRNA VACCINATION 00:00:00 [place] [id number] 2020-05-01 Completed [facility] t MRNA VACCINATION 00:00:00 [place] [id number] 2020-05-01 Completed [facility] t MRNA VACCINATION 00:00:00 [place] [id number] 2020-05-01 Completed [facility] t MRNA VACCINATION 00:00:00 [place] [id number] 2020-05-01 Completed Method[facility] t MRNA VACCINATION 00:00:00 [place] [id number] 2020-05-01 Completed [facility] t MRNA VACCINATION 00:00:00 [facility] MODERNA COVID-19 2020-05-01 Completed [facility] MRNA VACCINATION 00:00:00 Hospital FLUZONE HIGH-DOSE PF 2019-11-25 Completed Meth odist 00:00:00 Hospital Pneumococcal 2019-11-25 Completed Religious Polysaccharide 00:00:00 Hospital FLUZONE HIGH-DOSE PF 2019-11-25 Completed Meth odist 00:00:00 Hospital Pneumococcal 2019-11-25 Completed Religious Polysaccharide 00:00:00 Hospital FLUZONE HIGH-DOSE PF 2019-11-25 Completed Meth odist 00:00:00 Hospital Pneumococcal 2019-11-25 Completed Religious Polysaccharide 00:00:00 Hospital FLUZONE HIGH-DOSE PF 2019-11-25 Completed Meth odist 00:00:00 Hospital Pneumococcal 2019-11-25 Completed Religious Polysaccharide 00:00:00 [facility] Td, Unspecified 2018-01-20 Completed [facility] 00:00:00 Hospital Td, Unspecified 2018-01-20 Completed [facility] 00:00:00 Hospital Td, Unspecified 2018-01-20 Completed [facility] 00:00:00 Hospital Td, Unspecified 2018-01-20 Completed Religious 00:00:00 [facility] FLUZONE HIGH-DOSE PF 2017-11-08 Completed Meth odist 00:00:00 Hospital FLUZONE HIGH-DOSE PF 2017-11-08 Completed Meth odist 00:00:00 [facility] FLUZONE HIGH-DOSE PF 2017-11-08 Completed Meth odist 00:00:00 [facility] FLUZONE HIGH-DOSE PF 2017-11-08 Completed Meth odist [...] Meth odist 00:00:00 Hospital Pneumococcal 2015-05-26 Completed Religious Conjugate 13-Valent 00:00:00 [facility]pi [facility] Pneumococcal 2015-05-26 Completed Religious Conjugate 13-Valent 00:00:00 [facility] Pneumococcal 2015-05-26 Completed Religious Conjugate 13-Valent 00:00:00 [facility]pi [facility]olas Pneumococcal 2015-05-26 Completed Religious Conjugate 13-Valent 00:00:00 [facility]pi [facility] Influenza Trivalent [...] Meth odist 00:00:00 Hospital Zoster 2014-02-03 Completed Religious 00:00:00 Hospital Zoster 2014-02-03 Completed Religious 00:00:00 Hospital Zoster 2014-02-03 Completed Religious 00:00:00 Hospital Zoster 2014-02-03 Completed Religious 00:00:00 Hospital Influenza Trivalent 2013-12-17 Completed Metho [...] Hospital PRESERVATIVE FREE, ABSORBED Pneumococcal 2001-03-06 Completed Religious Polysaccharide 00:00:00 [facility] Pneumococcal 2001-03-06 Completed Religious Polysaccharide 00:00:00 [facility] Pneumococcal 2001-03-06 Completed Religious Polysaccharide 00:00:00 [facility] Pneumococcal 2001-03-06 Completed Religious Polysaccharide 00:00:00 [facility] Influenza Trivalent Unknown Completed [facility] Influenza Trivalent Unknown Completed [facility] Pneumococcal Unknown Completed [facility] Conjugate 13-Valent [facility] Pneumococcal Unknown Completed Religious Polysaccharide [facility] TD (ADULT), 5 LF Unknown Completed [facility] TETANUS TOXOID, Hospital PRESERVATIVE FREE, ABSORBED Zoster Unknown Completed [facility] Influenza Trivalent Unknown Completed [facility] FLUZONE HIGH-DOSE PF Unknown Completed [facility] FLUZONE HIGH-DOSE PF Unknown Completed [facility] Pneumococcal Unknown Completed [facility] COVID-19 Unknown Completed [facility] MRNA VACCINATION [facility] COVID-19 Unknown Completed [facility] MRNA VACCINATION [facility] FLUZONE HIGH-DOSE PF Unknown Completed [facility] FLUZONE HIGH-DOSE PF Unknown Completed [facility] Td, Unspecified Unknown Completed [facility] COVID-19 Unknown Completed [facility] MRNA VACCINATION [facility] COVID-19 Unknown Completed [facility] MRNA VACCINATION [facility] FLUZONE HIGH-DOSE PF Unknown Completed [facility] COVID-19 Unknown Completed Method t MRNA VACCINATION [facility] FLUZONE HIGH-DOSE PF Unknown Completed [facility] FLUZONE HIGH-DOSE PF Unknown Completed [facility] FLUZONE HIGH-DOSE PF Unknown Completed [facility] FLUZONE HIGH-DOSE PF Unknown Completed [facility] Tdap Unknown Completed [facility] Influenza Trivalent Unknown Completed [facility] Influenza Trivalent Unknown Completed [facility] Pneumococcal Unknown Completed [facility] Conjugate 13-Valent Hospi nicolas Pneumococcal Unknown Completed [facility] TD (ADULT), 5 LF Unknown Completed [facility] TETANUS TOXOID, Hospital PRESERVATIVE FREE, ABSORBED Zoster Unknown Completed [facility] Influenza Trivalent Unknown Completed [facility] FLUZONE HIGH-DOSE PF Unknown Completed [facility] FLUZONE HIGH-DOSE PF Unknown Completed [facility] Pneumococcal Unknown Completed [facility] COVID19 Unknown Completed [facility]RNA [facility] Completed [facility] MRNA VACCINATION [facility] FLUZONE HIGH-DOSE PF Unknown Completed [facility] FLUZONE HIGH-DOSE PF Unknown Completed [facility] Td, Unspecified Unknown Completed [facility] COVID-19 Unknown Completed [facility] MRNA VACCINATION [facility] COVID- Unknown Completed [facility] MRNA VACCINATION [facility] FLUZONE HIGH-DOSE PF Unknown Completed [facility] COVID-19 Unknown Completed [facility] MRNA VACCINATION [facility] FLUZONE HIGH-DOSE PF Unknown Completed [facility] FLUZONE HIGH-DOSE PF Unknown Completed [facility] FLUZONE HIGH-DOSE PF Unknown Completed [facility] FLUZONE HIGH-DOSE PF Unknown Completed [facility] Tdap Unknown Completed [facility] Influenza Trivalent Unknown Completed [facility] Influenza Trivalent Unknown Completed [facility] Pneumococcal Unknown Completed [facility] Conjugate 13-Valent Hospi nicolas Pneumococcal Unknown Completed [facility] TD (ADULT), 5 LF Unknown Completed [facility] TETANUS TOXOID, Hospital PRESERVATIVE FREE, ABSORBED Zoster Unknown Completed [facility] Influenza Trivalent Unknown Completed [facility] FLUZONE HIGH-DOSE PF Unknown Completed [facility] FLUZONE HIGH-DOSE PF Unknown Completed [facility] Pneumococcal Unknown Completed [facility] COVID-19 Unknown Completed [facility] MRNA VACCINATION [facility] COVID-19 Unknown Completed [facility] MRNA VACCINATION [facility] FLUZONE HIGH-DOSE PF Unknown Completed [facility] FLUZONE HIGH-DOSE PF Unknown Completed [facility] Td, Unspecified Unknown Completed [facility] COVID-19 Unknown Completed [facility] MRNA VACCINATION [facility] COVID-19 Unknown Completed [facility] VACCINATION Hospital FLUZONE HIGH-DOSE PF Unknown Completed [facility] MODERNA COVID-19 Unknown Completed [facility] FLUZONE HIGH-DOSE PF Unknown Completed [facility] FLUZONE HIGH-DOSE PF Unknown Completed [facility] FLUZONE HIGH-DOSE PF Unknown Completed [facility] FLUZONE HIGH-DOSE PF Unknown Completed [facility] Tdap Unknown Completed [facility] Vital Signs Vital Name Observation Time Observation Value Comments Source Oxygen saturation in 2022-08-16 20:47:00 96 /min [facility] Arterial blood by [facility] Pulse oximetry Branch Systolic blood 2022-08-16 20:47:00 102 mm[Hg] [facility] Diastolic blood 2022-08-16 20:47:00 49 mm[Hg] [facility] Heart rate 2022-08-16 20:47:00 61 /min [facility] Body temperature 2022-08-16 20:47:00 36.33 Constance [facility] Respiratory rate 2022-08-16 20:47:00 18 /min [facility] Body weight 2022-08-16 09:13:00 51.483 kg [facility] BMI 2022-08-16 09:13:00 21.45 kg/m2 [facility] Body height 2022-08-13 22:34:00 154.9 cm [facility] Systolic blood 2022-03-01 15:41:00 177 mm[Hg] Method [facility] pressure Diastolic blood 2022-03-01 15:41:00 75 mm[Hg] [facility] pressure Heart rate 2022-03-01 15:41:00 53 /min [facility] Body temperature 2022-03-01 15:41:[address] [facility] Body height 2022-03-01 15:41:00 152.4 cm [facility] Body weight 2022-03-01 15:41:00 52.708 kg [facility] BMI 2022-03-01 15:41:00 22.69 kg/m2 [facility] Oxygen saturation in 2022-03-01 15:41:00 96 /min [facility] Arterial blood by Pulse oximetry Respiratory rate 2022-01-30 19:19:00 20 /min [facility] Systolic blood 2021-12-21 15:38:00 174 mm[Hg] Method [facility] pressure Diastolic blood 2021-12-21 15:38:00 66 mm[Hg] [facility] pressure Heart rate 2021-12-21 14:42:00 60 /min [facility] Body temperature 2021-12-21 14:42:[address] [facility] Respiratory rate 2021-12-21 14:42:00 16 /min [facility] Body height 2021-12-21 14:42:00 152.4 cm [facility] Body weight 2021-12-21 14:42:00 52.164 kg [facility] BMI 2021-12-21 14:42:00 22.46 kg/m2 [facility] Oxygen saturation in 2021-12-21 14:42:00 98 /min [facility] Arterial blood by Pulse oximetry Body Temperature 2019-09-25 11:40:00 97.2 [degF] [employer] [facility] Heart Rate 2019-09-25 11:40:00 63 /min [facility] Respiratory rate 2019-09-25 11:40:00 18 /min [facility] BP Systolic 2019-09-25 11:40:00 94 mm[Hg] [facility] BP Diastolic 2019-09-25 11:40:00 43 mm[Hg] [facility] Weight 2019-09-25 06:07:00 122 [lb_av] [email or web address] BMI (Body Mass 2019-09-25 06:07:00 24.6 kg/m2 [facility] Health Index) Heart Rate 2019-09-25 03:06:00 87 /min [facility] Respiratory rate 2019-09-25 03:06:00 21 /min [employer] [facility] BP Systolic 2019-09-25 03:06:00 160 mm[Hg] [facility] BP Diastolic 2019-09-25 03:06:00 93 mm[Hg] [email or web address] Procedures Procedure Date / Time Performing Clinician Source Performed COVID-19 (ID NOW RAPID 2022-08-16 15:16:00 Marissa Jackson [facility] Medical Branch THYROID STIMULATING 2022-08-14 09:09:00 Diane Corrigan [facility] HORMONE [facility] Branch BASIC METABOLIC PANEL (NA, 2022-08-14 09:09:00 [facility] K, CL, CO2, GLUCOSE, BUN, [facility] CREATININE, [place]) CBC WITH DIFF 2022-08-14 09:09[facility] PELVIS W 2022-08-14 01:05:23 Nicolas Sims [facility] CONTRAST [facility] URINE CULTURE 2022-08-14 00:15:00 [facility] FREE T4 2022-08-14 00:01:00 [facility] COMP. METABOLIC PANEL 2022-08-14 00:01:00 Nicolas Sims [facility] ([id number]) [facility] CT CERVICAL SPINE WO 2022-08-13 23:30:19 Nicolas Sims [facility] CONTRAST [facility] CT HEAD WO CONTRAST 2022-08-13 23:29:57 Nicolas Sims [facility] XR CHEST 1 VW 2022-08-13 23:28:52 Nicolas Sims [facility] BLOOD CULTURE SCREEN 2022-08-13 23:13:00 Nicolas Sims [facility] TROPONIN I 2022-08-13 23:13:00 Nicolas Sims [facility] SALICYLATE 2022-08-13 23:13:00 Nicolas Sims [facility] ETHANOL 2022-08-13 23:13:00 Nicolas Sims [facility] URINE DRUG (IMMUNOASSAY) - 2022-08-13 23:13:00 Nicolas Sims [facility] COMPREHENSIVE DRUG SCREEN [facility] CBC WITH DIFF 2022-08-13 23:13:00 Nicolas Sims [facility] URINALYSIS 2022-08-13 23:13:00 Nicolas Sims [facility] RAPID INFLUENZA A/B 2022-08-13 23:13:00 Nicolas Sims [facility] N-TERMINAL PRO-BNP 2022-08-13 23:13:00 Nicolas Sims [facility] COVID-19 (ID NOW RAPID 2022-08-13 23:13:[address] [facility] TESTING) Medical Branch LAB ONLY COVID 2022-08-13 23:13:00 Nicolas Sims [facility] HB ECG ROUTINE & RHYTHM 2022-08-13 22:48:19 [facility] ARTH[facility] 2022-06-21 14:30:00 Adrianna Miranda [facility]ira ASPIR&/INJ MAJOR JT/BURSA W/O US OPERATION, KNEE, 2022-01-30 17:05:00 Adrianna Miranda ospital ARTHROSCOPIC POC GLUCOSE 2022-01-30 16:15:00 Adrianna Miranda spital HI AN ELECTIVE 2022-01-30 15:04:00 Collin Farooq [facility] SUPRAGLOTTIC AIRWAY OPERATION, KNEE, 2022-01-30 14:59:00 Adrianna Miranda H ospital ARTHROSCOPIC POC PANEL 2022-01-30 14:11:00 Adrianna Miranda MAMMO BREAST SCREEN 2021-12-28 14:46:00 [facility] TOMOSYNTHESIS BILATERAL [place] CBC WITH PLATELET AND 2021-12-22 12:45:[address] [facility] DIFFERENTIAL [place] THYROID STIMULATING 2021-12-22 12:45:00 [facility] HORMONE [place] COMPREHENSIVE METABOLIC 2021-12-22 12:45:00 [facility]mo[facility]i [facility] PANEL [place] URINALYSIS, AUTOMATED WITH 2021-12-22 12:45:00 [facility] MICROSCOPY [place] LIPID PANEL 2021-12-22 12:45:00 [facility] [place] HEMOGLOBIN A1C 2021-12-22 12:45:00 [facility] [place] VITAMIN D 25 HYDROXY LEVEL 2021-12-22 12:45:00 [facility] [place] CBC WITH PLATELET AND 2021-12-22 12:45:00 [facility] DIFFERENTIAL [place] HI ARTHROCENTESIS 2021-12-21 13:50:00 Adrianna Miranda [facility] ASPIR&/INJ MAJOR JT/BURSA W/O US MRI KNEE WO CONTRAST LEFT 2021-12-14 14:15:00 [facility] OR 2 VW 2021-09-28 19:41:49 Adrianna Miranda [facility] BILATERAL HI ARTHROCENTESIS 2021-09-28 19:30:00 VeronaAdrianna Nely [facility] ASPIR&/INJ MAJOR JT/BURSA W/O US THYROID STIMULATING 2021-03-31 15:55:00 [facility] HORMONE [place] HSV 1 AND 2 SPECIFIC AB 2021-03-31 15:55:00 [facility] IGG [place] Transthoracic two 2019-09-25 00:00:00 [facility] with color Doppler imaging and contrast Myocrd Strain Img Speckl 2019-09-25 00:00:00 [facility] Track X-ray of chest, single 2019-09-24 00:00:00 [facility] view ECG (electrocardiogram) 2019-09-24 00:00:00 [email or web address] 12 lead ECG interpretation 2019-09-24 00:00:00 [facility] [id number] 2019-08-06 00:00:00 [facility] [id number] 2019-08-06 00:00:00 [facility] [id number] 2019-08-06 00:00:00 [facility] [id number] 2019-08-06 00:00:00 [facility] [id number] 2019-08-06 00:00:00 [facility] Plan of Care Planned Activity Planned Date Details Comments Source Future Scheduled Test 2023-01-31 SHINGLES VACCINES (2 [facility] 12:07:14 of 3) [code = SHINGLES VACCINES (2 of 3)] Future Scheduled Test 2023-01-31 COVID-19 VACCINE (6 [facility] 12:07:14 ) [code = COVID-19 VACCINE ( - season)] Future Scheduled Test 2023-01-31 INFLUENZA VACCINE [facility] 12:07:14 (#1) [code = INFLUENZA VACCINE (#1)] Future Scheduled Test 2023-01-26 SHINGLES VACCINES (2 [facility] 16:12:37 of 3) [code = SHINGLES VACCINES (2 of 3)] Future Scheduled Test 2023-01-26 COVID-19 VACCINE (6 [facility] 16:12:37 season) [code = COVID-19 VACCINE ( - season)] Future Scheduled Test 2023-01-26 INFLUENZA VACCINE [facility] 16:12:37 (#1) [code = INFLUENZA VACCINE (#1)] Future Scheduled Test 2023-01-19 SHINGLES VACCINES (2 [facility] 14:39:55 of 3) [code = SHINGLES VACCINES (2 of 3)] Future Scheduled Test 2023-01-19 COVID-19 VACCINE (6 [facility] 14:39:55 season) [code = COVID-19 VACCINE ( - season)] Future Scheduled Test 2023-01-19 INFLUENZA VACCINE [facility] 14:39:55 (#1) [code = INFLUENZA VACCINE (#1)] Future Scheduled Test 2022-09-14 SHINGLES VACCINES (2 [facility] 11:02:15 of 3) [code = SHINGLES VACCINES (2 of 3)] Future Scheduled Test 2022-09-14 COVID-19 VACCINE ([address] [place] [address] 11:02:15 Moderna series) [code = COVID-19 VACCINE (6 - Moderna series)] Future Scheduled Test 2022-09-14 INFLUENZA VACCINE [facility] 11:02:15 [code = INFLUENZA VACCINE] Future Scheduled Test 2022-07-07 SHINGLES VACCINES (1 [facility] 12:32:59 of 2) [code = SHINGLES VACCINES (1 of 2)] Future Scheduled Test 2022-07-07 INFLUENZA VACCINE [facility] 12:32:59 [code = INFLUENZA VACCINE] Future Scheduled Test 2022-04-27 SHINGLES VACCINES (1 [facility] 10:59:44 of 2) [code = SHINGLES VACCINES (1 of 2)] Future Scheduled Test 2022-01-19 HEPATITIS B VACCINES [facility] 18:11:59 (1 of 3 - 3-dose series) [code = HEPATITIS B VACCINES (1 of 3 - 3-dose series)] Future Scheduled Test 2022-01-19 SHINGLES VACCINES (1 [facility] 18:11:59 of 2) [code = SHINGLES VACCINES (1 of 2)] Future Scheduled Test 2022-01-19 COVID-19 VACCINE (4 - [facility] 18:11:59 Booster for Moderna series) [code = COVID-19 VACCINE (4 - Booster for Moderna series)] Future Scheduled Test Serum or plasma [facility] cardiac troponin I [place] LIVE measurement HCIS (mass/volume) [code = 01116-3] Instructions Atrial Fibrillation [facility] (CT) [place] [facility] HCIS Instructions Apixaban [facility] LIVE HCIS Encounters Start End Encounter Admission Attending Care Care Encounter Source Date/Time Date/Time Type Type Clinicians Facility Department ID 2019-08-06 Inpatient KARLA UsCandelarioU SURG [id number] [facility] 08:00:[address] 2023-01-22 2023-01-22 Patient Benedicto Barrett2.840.1 [id number] Methodi 00:00:00 00:00:00 Outreach Kathrin 22165.1.[address] 3.430.2.7 Hospit a .3.348189 l .8 2023-01-22 2023-01-22 Patient Benedicto Barrett2.840.1 [id number] Methodi 00:00:00 00:00:00 Outreach Kathrin 55937.1.[address] 3.430.2.7 Hospit a .3.782320 l .8 2023-01-08 2023-01-08 Telephone Debora Marques 1.2.840.1 [id number] Methodi 00:00:00 00:00:[address] 3.430.2.7 Hospit a .3.002272 l .8 2023-01-08 2023-01-08 Telephone Adrianna Miranda 1.2.840.1 [id number] 2 [id number] Methodi 00:00:00 00:00:[address] 3.430.2.7 Hospit a .3.535828 l .8 2023-01-08 2023-01-08 Telephone Debora Marques 1.2.840.1 [id number] Methodi 00:00:00 00:00:[address] 3.430.2.7 Hospit a .3.233497 l .8 2023-01-08 2023-01-08 Telephone Adrianna Miranda 1.2.840.1 [id number] 2 [id number] Methodi 00:00:00 00:00:[address] 3.430.2.7 Hospit a .3.593323 l .8 2023-01-05 2023-01-05 Telephone Adrianna Miranda 1.2.840.1 [id number] 2 [id number] Methodi 00:00:00 00:00:[address] 3.430.2.7 Hospit a .3.996096 l .8 2023-01-05 2023-01-05 Telephone Adrianna Miranda 1.2.840.1 [id number] 2 [id number] Methodi 00:00:00 00:00:[address] 3.430.2.7 Hospit a .3.235513 l .8 2022-11-21 2022-11-21 Telephone Malmo, 1.2.840.1 [id number] 381 [id number] Methodi 00:00:00 00:00:[address] 3.430.2.7 Hospi ta .3.689198 l .8 2022-11-21 2022-11-21 Telephone Galen, 1.2.840.1 [id number] 940 [id number] Methodi 00:00:00 00:00:[address] [facility] 3.430.2.7 Hospi ta .3.417222 l .8 2022-09-29 2022-09-29 Patient Favio, 1.2.840.1 [id number] 2100 [id number] Methodi 00:00:00 00:00:00 Outreach Chelly 25631.1.[address] 3.430.2.7 Hospit a .3.819871 l .8 2022-09-29 2022-09-29 Patient Favio, 1.2.840.1 [id number] 2100 [id number] Methodi 00:00:00 00:00:00 Outreach Chelly 14024.1.[address] 3.430.2.7 Hospit a .3.174078 l .8 2022-08-17 2022-08-17 Transition DENIS Hamlin 1.2.840.114 103 [id number] [facility] 00:00:00 00:00:00 of Care Caden [place] 350.1.13.10 it y of ALFREDA 4.2.7.2.686 [facility] [id number] [facility] [address] 2022-08-13 2022-08-16 Inpatient X ETHAN ILDEEP [facility] [id number] Univers 17:21:00 16:30:00 DIANE khanna [facility] 2022-08-13 2022-08-16 [facility] Nicolas Sims [facility] 1.2.840 .114 [id number] Univers 17:21:00 16:30:00 Encounter Diane Corrigan 350.1.13.10 ity Zora Landry 4.2.7.2.686 [facility] [id number] [facility] [address] 2022-08-05 2022-08-05 Refill Galen, 1.2.840.1 [id number] 09248 Methodi 00:00:00 00:00:[address] [place] 3.430.2.7 Hospi ta .3.959980 l .8 2022-08-05 2022-08-05 Refill Galen, 1.2.840.1 [id number] 89714 29865 Methodi 00:00:00 00:00:[address] [place] 3.430.2.7 Hospi ta .3.239257 l .8 2022-07-20 2022-07-20 Telephone Galen, 1.2.840.1 [id number] 719 [id number] Methodi 00:00:00 00:00:[address] [place] 3.430.2.7 Hospi ta .3.019539 l .8 2022-07-20 2022-07-20 Telephone Galen, 1.2.840.1 [id number] 369 [id number] Methodi 00:00:00 00:00:[address] [place] 3.430.2.7 Hospi ta .3.704124 l .8 2022-07-17 2022-07-17 Patient Favio, 1.2.840.1 [id number] 2099 112336 Methodi 00:00:00 00:00:00 Outreach Chelly [address]4332.1.[address] 3.430.2.7 Hospit a .3.677194 l .8 2022-07-17 2022-07-17 Patient Favio, 1.2.840.1 2099 392863 Methodi 00:00:00 00:00:00 Outreach Chelly 16120.1.[address] 3.430.2.7 Hospit a .3.155756 l .8 2022-07-07 2022-07-07 Patient Eric, 1.2.840.1 [id number] 949807 3408 Methodi 00:00:00 00:00:00 Outreach Emily 67026.1.1 006 s t 3.430.2.7 Hospit a .3.078985 l .8 2022-07-07 2022-07-07 Patient Reyes, 1.2.840.1 [id number] 959302 6550 Methodi 00:00:00 00:00:00 Outreach Emily 20603.1.1 006 s t 3.430.2.7 Hospit a .3.591108 l .8 2022-07-06 2022-07-06 Prep for Tony 1.2.840.1 [id number] 2 [id number] Methodi 00:00:00 00:00:00 Surgery an, Marisa 66604.1.[address] [place] 3.430.2.7 Hospit a .3.388984 l .8 2022-07-06 2022-07-06 Prep for Tony 1.2.840.1 [id number] 2 [id number] Methodi 00:00:00 00:00:00 Surgery an, Marisa 90777.1.[address] [place]y 3.430.2.7 Hospit a .3.607715 l .8 2022-06-22 2022-06-22 Patient Eric, 1.2.840.1 [id number] 4240 Methodi 00:00:00 00:00:00 Outreach Emily 74292.1.1 639 s t 3.430.2.7 Hospit a .3.590110 l .8 2022-06-22 2022-06-22 Patient Eric, 1.2.840.1 [id number] 2208 Methodi 00:00:00 00:00:00 Outreach Emily 99321.1.1 639 s t 3.430.2.7 Hospit a .3.881280 l .8 2022-06-21 2022-06-21 Office Adrianna Miranda 1.2.840.1 [id number] 326 [id number] Methodi 09:30:00 11:28:21 [address] B[address] 15217.1.[address] 3.430.2.7 Hospit a .3.099415 l .8 2022-06-21 2022-06-21 Office Adrianna Miranda 1.2.840.1 [id number] 400 [id number] Methodi 09:30:00 11:28:21 [address] 82958.1.[address] 3.430.2.7 Hospit a .3.626212 l .8 2022-06-21 2022-06-21 Travel 1.2.840.1 1.2.713.775 3404 632599 Methodi 00:00:00 00:00:[address] 3.430.2.7 0.2.7.3.698 Ho spita .3.096539 084.8 l .8 2022-06-21 2022-06-21 Travel 1.2.840.1 1.2.236.136 5509 739253 Methodi 00:00:00 00:00:[address] 3.430.2.7 0.2.7.3.698 Ho spita .3.393183 084.8 l .8 2022-06-19 2022-06-19 Travel 1.2.840.1 1.2.285.370 1919 026738 Methodi 00:00:00 00:00:[address] 3.430.2.7 0.2.7.3.698 Ho spita .3.295822 084.8 l .8 2022-06-19 2022-06-19 Travel 1.2.840.1 1.2.059.265 0417 910528 Methodi 00:00:00 00:00:[address] 3.430.2.7 0.2.7.3.698 Ho spita .3.857827 084.8 l .8 2022-06-12 2022-06-12 Refill Malmo, 1.2.840.1 [id number] 05935 Methodi 00:00:00 00:00:[address] [place] 3.430.2.7 Hospi ta .3.218975 l .8 2022-06-12 2022-06-12 Refill Malmo, 1.2.840.1 [id number] 27201 Methodi 00:00:00 00:00:[address] [place] 3.430.2.7 Hospi ta .3.394768 l .8 2022-06-08 2022-06-08 Refill Malmo, 1.2.840.1 [id number] 72497 Methodi 00:00:00 00:00:[address] [place] 3.430.2.7 Hospi ta .3.778750 l .8 2022-06-08 2022-06-08 Patient Reyes, 1.2.840.1 [id number] 6311 Methodi 00:00:00 00:00:00 Outreach Emily 52312.1.1 763 s t 3.430.2.7 Hospit a .3.883810 l .8 2022-06-08 2022-06-08 Telephone Galen, 1.2.840.1 [id number] 472 [id number] Methodi 00:00:00 00:00:[address] [place] 3.430.2.7 Hospi ta .3.337770 l .8 2022-06-08 2022-06-08 Refill Galen, 1.2.840.1 [id number] 56245 Methodi 00:00:00 00:00:[address] [place] 3.430.2.7 Hospi ta .3.991553 l .8 2022-06-08 2022-06-08 Refill Malmo, 1.2.840.1 [id number] 75523 Methodi 00:00:00 00:00:[address] [place] 3.430.2.7 Hospi ta .3.577595 l .8 2022-06-08 2022-06-08 Patient Reyes, 1.2.840.1 [id number] 719697 0794 Methodi 00:00:00 00:00:00 Outreach Emily 33952.1.1 763 s t 3.430.2.7 Hospit a .3.129677 l .8 2022-06-08 2022-06-08 Telephone Galen, 1.2.840.1 [id number] 835 8811678 Methodi 00:00:00 00:00:[address] [place] 3.430.2.7 Hospi ta .3.519483 l .8 2022-06-08 2022-06-08 Refill Malmo, 1.2.840.1 [id number] 25090 32683 Methodi 00:00:00 00:00:[address] [place] 3.430.2.7 Hospi ta .3.807840 l .8 2022-06-03 2022-06-03 Refill Malmo, 1.2.840.1 071988172 34358 02072 Methodi 00:00:00 00:00:[address] [place] 3.430.2.7 Hospi ta .3.457917 l .8 2022-06-03 2022-06-03 Refill Malmo, 1.2.840.1 [id number] 55647 Methodi 00:00:00 00:00:[address] [place] 3.430.2.7 Hospi ta .3.652042 l .8 2022-05-25 2022-05-25 Patient Reyes, 1.2.840.1 [id number] 919773 6743 Methodi 00:00:00 00:00:00 Outreach Emily 07099.1.1 043 s t 3.430.2.7 Hospit a .3.083434 l .8 2022-05-25 2022-05-25 Patient Reyes, 1.2.840.1 [id number] 055248 2735 Methodi 00:00:00 00:00:00 Outreach Emily 85800.1.1 043 s t 3.430.2.7 Hospit a .3.046255 l .8 2022-05-11 2022-05-11 Patient Reyes, 1.2.840.1 [id number] 753011 4698 Methodi 00:00:00 00:00:00 Outreach Emily 11372.1.1 088 s t 3.430.2.7 Hospit a .3.174990 l .8 2022-05-11 2022-05-11 Patient Reyes, 1.2.840.1 [id number] 371781 6909 Methodi 00:00:00 00:00:00 Outreach Emily 97170.1.1 088 s t 3.430.2.7 Hospit a .3.630694 l .8 2022-05-09 2022-05-09 Telephone [place], 1.2.840.1 [id number] 078 0422127 Methodi 00:00:00 00:00:[address] 3.430.2.7 Hospi ta .3.112283 l .8 2022-05-09 2022-05-09 Telephone Galen, 1.2.840.1 391904881 136 4525378 Methodi 00:00:00 00:00:[address] [place] 3.430.2.7 Hospi ta .3.888884 l .8 2022-05-09 2022-05-09 Telephone [place], 1.2.840.1 316899585 876 1258494 Methodi 00:00:00 00:00:[address] [place] 3.430.2.7 Hospi ta .3.321815 l .8 2022-05-09 2022-05-09 Telephone Galen, 1.2.840.1 032887438 626 0263483 Methodi 00:00:00 00:00:[address] [place] 3.430.2.7 Hospi ta .3.994020 l .8 2022-05-07 2022-05-07 Refill Malmo, 1.2.840.1 [id number] 21312 09295 Methodi 00:00:00 00:00:[address] [place] 3.430.2.7 Hospi ta .3.454547 l .8 2022-05-07 2022-05-07 Refill Malmo, 1.2.840.1 124502753 51351 09933 Methodi 00:00:00 00:00:[address] [place] 3.430.2.7 Hospi ta .3.212030 l .8 2022-04-27 2022-04-27 Patient Reyes, 1.2.840.1 [id number] 034626 8004 Methodi 00:00:00 00:00:00 Outreach Emily 09713.1.1 906 s t 3.430.2.7 Hospit a .3.913336 l .8 2022-04-27 2022-04-27 Patient Reyes, 1.2.840.1 [id number] 008594 6203 Methodi 00:00:00 00:00:00 Outreach Emily 16516.1.1 906 s t 3.430.2.7 Hospit a .3.975210 l .8 2022-04-06 2022-04-06 Patient Reyes, 1.2.840.1 [id number] 956977 9969 Methodi 00:00:00 00:00:00 Outreach Emily 62367.1.1 988 s t 3.430.2.7 Hospit a .3.939342 l .8 2022-04-06 2022-04-06 Patient Reyes, 1.2.840.1 [id number] 059001 2377 Methodi 00:00:00 00:00:00 Outreach Emily 61394.1.1 988 s t 3.430.2.7 Hospit a .3.008204 l .8 2022-03-16 2022-03-16 Orders Sales, Elidia 1.2.840.1 [id number] 299 [id number] Methodi 00:00:00 00:00:[address] 3.430.2.7 Hospit a .3.804799 l .8 2022-03-16 2022-03-16 Telephone Galen, 1.2.840.1 [id number] 279 3634416 Methodi 00:00:00 00:00:[address] [place] 3.430.2.7 Hospi ta .3.751797 l .8 2022-03-16 2022-03-16 Patient Reyes, 1.2.840.1 357971575 096271 9718 Methodi 00:00:00 00:00:00 Outreach Emily 37861.1.1 189 s t 3.430.2.7 Hospit a .3.685161 l .8 2022-03-16 2022-03-16 Orders Sales, Elidia 1.2.840.1 [id number] 807 5931698 Methodi 00:00:00 00:00:[address] 3.430.2.7 Hospit a .3.434181 l .8 2022-03-16 2022-03-16 Telephone Galen, 1.2.840.1 [id number] 026 5694947 Methodi 00:00:00 00:00:[address] [place] 3.430.2.7 Hospi ta .3.820332 l .8 2022-03-16 2022-03-16 Patient Reyes, 1.2.840.1 [id number] 070217 5227 Methodi 00:00:00 00:00:00 Outreach Emily 07201.1.1 189 s t 3.430.2.7 Hospit a .3.485872 l .8 2022-03-06 2022-03-06 Telephone Galen, 1.2.840.1 [id number] 774 6075318 Methodi 00:00:00 00:00:[address] [facility] 3.430.2.7 Hospi ta .3.800053 l .8 2022-03-06 2022-03-06 Telephone Galen, 1.2.840.1 [id number] 953 0468792 Methodi 00:00:00 00:00:[address] [facility] 3.430.2.7 Hospi ta .3.353304 l .8 2022 2022 Patient Reyes, 1.2.840.1 [id number] 677501 7715 Methodi 00:00:00 00:00:00 Outreach Emily 82849.1.1 904 s t 3.430.2.7 Hospit a .3.739303 l .8 2022 2022 Patient Eric, 1.2.840.1 [id number] 813411 4190 Methodi 00:00:00 00:00:00 Outreach Emily 70323.1.1 904 s t 3.430.2.7 Hospit a .3.562566 l .8 2022-03-01 2022-03-01 Office Adrianna Miranda 1.2.840.1 [id number] 055 7906119 Methodi 10:00:00 14:41:30 Visit B. 56511.1.[address] 3.430.2.7 Hospit a .3.506288 l .8 2022-03-01 2022-03-01 Office Adrianna Miranda 1.2.840.1 [id number] 881 6963974 Methodi 10:00:00 14:41:30 Visit B. 45742.1.[address] 3.430.2.7 Hospit a .3.043073 l .8 2022-03-01 2022-03-01 Office Malmo, 1.2.840.1 [id number] 87724 Methodi 10:00:00 10:05:57 Visit Poli 36431.1.[address] [place] 3.430.2.7 Hospi ta .3.971186 l .8 2022-03-01 2022-03-01 Office Malmo, 1.2.840.1 [id number] 19712 Methodi 10:00:00 10:05:57 Visit Poli 88315.1.[address] [place] 3.430.2.7 Hospi ta .3.319377 l .8 2022-03-01 2022-03-01 Travel 1.2.840.1 1.2.311.745 0675 509452 Methodi 00:00:00 00:00:[address] 3.430.2.7 0.2.7.3.698 Ho spita .3.775029 084.8 l .8 2022-03-01 2022-03-01 Travel 1.2.840.1 1.2.652.320 8517 055265 Methodi 00:00:00 00:00:[address] 3.430.2.7 0.2.7.3.698 Ho spita .3.653326 084.8 l .8 2022-02-27 2022-02-27 Telephone Galen, 1.2.840.1 [id number] 216 7156870 Methodi 00:00:00 00:00:[address] [place] 3.430.2.7 Hospi ta .3.547445 l .8 2022-02-27 2022-02-27 Telephone [place]mo, 1.2.840.1 [id number] 959 0629561 Methodi 00:00:00 00:00:[address] [place] 3.430.2.7 Hospi ta .3.365344 l .8 2022-02-15 2022-02-15 Patient Reyes, 1.2.840.1 019787578 993535 2075 Methodi 00:00:00 00:00:00 Outreach Emily 37712.1.1 809 s t 3.430.2.7 Hospit a .3.921447 l .8 2022-02-15 2022-02-15 Patient Reyes, 1.2.840.1 [id number] 895336 5434 Methodi 00:00:00 00:00:00 Outreach Emily 49048.1.1 809 s t 3.430.2.7 Hospit a .3.290658 l .8 2022-02-13 2022-02-13 Telephone Theodore, 1.2.840.1 [id number] 21 [id number] Methodi 00:00:00 00:00:[address] 3.430.2.7 Hospit a .3.874782 l .8 2022-02-13 2022-02-13 Telephone Theodore, 1.2.840.1 [id number] 21 [id number] Methodi 00:00:00 00:00:[address] 3.430.2.7 Hospit a .3.278131 l .8 2022-02-03 2022-02-03 Office Adrianna Miranda 1.2.840.1 [id number] 542 1084294 Methodi 09:20:00 09:20:00 Visit B. 76221.1.[address] 3.430.2.7 Hospit a .3.397478 l .8 2022-02-03 2022-02-03 Office Adrianna Miranda 1.2.840.1 [id number] 667 0814135 Methodi 09:20:00 09:20:00 Visit B[address] 87672.1.[address] 3.430.2.7 Hospit a .3.210634 l .8 2022-02-01 2022-02-01 Patient Eric, 1.2.840.1 [id number] 437156 9516 Methodi 00:00:00 00:00:00 Outreach Emily 62072.1.1 609 s t 3.430.2.7 Hospit a .3.814769 l .8 2022-02-01 2022-02-01 Patient Eric, 1.2.840.1 835751011 998383 2051 Methodi 00:00:00 00:00:00 Outreach Emily 23005.1.1 609 s t 3.430.2.7 Hospit a .3.560657 l .8 2022-01-31 2022-01-31 Refill Galen, 1.2.840.1 333756089 36931 20364 Methodi 00:00:00 00:00:[address] [facility] 3.430.2.7 Hospi ta .3.841129 l .8 2022-01-30 2022-01-30 Hospital Adrianna Miranda 1.2.840.1 [id number] Methodi 07:38:00 13:41:00 Encounter B. 65856.1.[address] 3.430.2.7 Hospit a .3.410511 l .8 2022-01-30 2022-01-30 Surgery Adrianna Miranda 1.2.840.1 [id number] 838 1420507 Methodi 09:00:00 10:40:[address] 3.430.2.7 Hospit a .3.735506 l .8 2022-01-30 2022-01-30 Anesthesia Faustonicholas, 1.2.840.1 [id number] 963 9719041 Methodi 08:59:00 10:18:00 Event Abdullahi 83718.1.[address] Robi 3.430.2.7 Hospit a .3.383521 l .8 2022-01-30 2022-01-30 Travel 1.2.840.1 1.2.955.107 3842 213545 Methodi 00:00:00 00:00:[address] 3.430.2.7 0.2.7.3.698 Ho spita .3.147121 084.8 l .8 2022-01-27 2022-01-27 Patient Reyes, 1.2.840.1 [id number] 071380 6327 Methodi 00:00:00 00:00:00 Outreach Emily 26100.1.1 659 s t 3.430.2.7 Hospit a .3.599529 l .8 2022-01-25 2022-01-25 Patient Arnold, 1.2.840.1 [id number] 56809 86704 Methodi 00:00:00 00:00:00 Outreach Kathrin 03880.1.[address] 3.430.2.7 Hospit a .3.706787 l .8 2022-01-16 2022-01-16 Travel 1.2.840.1 1.2.692.912 6792 782790 Methodi 00:00:00 00:00:[address] 3.430.2.7 0.2.7.3.698 Ho spita .3.335543 084.8 l .8 2022-01-13 2022-01-13 Refill Galen, 1.2.840.1 [id number] 36391 74419 Methodi 00:00:00 00:00:[address] [place] 3.430.2.7 Hospi ta .3.945400 l .8 2022-01-10 2022-01-10 Telephone Theodore, 1.2.840.1 [id number] 21 [id number] Methodi 00:00:00 00:00:[address] 3.430.2.7 Hospit a .3.551380 l .8 2022-01-10 2022-01-10 Orders Theodore, 1.2.840.1 [id number] 2100 083508 Methodi 00:00:00 00:00:00 Only Maryanne 54836.1.[address] 3.430.2.7 Hospit a .3.599786 l .8 2022-01-10 2022-01-10 Prep for Theodore, 1.2.840.1 [id number] 445 7744647 Methodi 00:00:00 00:00:00 Surgery Maryanne 16033.1.[address] 3.430.2.7 Hospit a .3.824806 l .8 2022-01-09 2022-01-09 Telephone Theodore, 1.2.840.1 [id number] 21 [id number] Methodi 00:00:00 00:00:[address] 3.430.2.7 Hospit a .3.649368 l .8 2021-12-28 2021-12-28 Outpatient GALEN, [facility] [id number] [address] [employer] 00:00:00 00:00:[address] 2021-12-28 2021-12-28 Travel 1.2.840.1 1.2.129.558 5179 979765 Methodi 00:00:00 00:00:[address] 3.430.2.7 0.2.7.3.698 Ho spita .3.293933 084.8 l .8 2021-12-23 2021-12-23 Refill Galen, 1.2.840.1 [id number] 68396 Methodi 00:00:00 00:00:[address] [place] 3.430.2.7 Hospi ta .3.833961 l .8 2021-12-23 2021-12-23 Orders Galen, 1.2.840.1 [id number] 45723 Methodi 00:00:00 00:00:00 Only Poli 10545.1.[address] [place] 3.430.2.7 Hospi ta .3.223936 l .8 2021-12-21 2021-12-21 Office Adrianna Miranda 1.2.840.1 [id number] 695 [id number] Methodi 08:50:00 11:59:46 [place] B. 87760.1.[address] 3.430.2.7 Hospit a .3.793645 l .8 2021-12-21 2021-12-21 Office [place], 1.2.840.1 [id number] 55628 Methodi 10:00:00 10:41:23 Visit Poli 36778.1.[address] [place] 3.430.2.7 Hospi ta .3.847807 l .8 2021-12-21 2021-12-21 Travel 1.2.840.1 1.2.634.744 6552 687156 Methodi 00:00:00 00:00:[address] 3.430.2.7 0.2.7.3.698 Ho spita .3.998571 084.8 l .8 2021-12-17 2021-12-17 Refill [place], 1.2.840.1 [id number] 86659 Methodi 00:00:00 00:00:[address] [place] 3.430.2.7 Hospi ta .3.029270 l .8 2021-12-16 2021-12-16 Telephone Theodore, 1.2.840.1 [id number] Methodi 00:00:00 00:00:[address] 3.430.2.7 Hospit a .3.811032 l .8 2021-12-14 2021-12-14 Outpatient ADRIANNA MIRANDA [facility] 2099 [id number] [employer] 00:00:00 00:00:[address] 2021-12-07 2021-12-07 Office Radha Miranday 1.2.840.1 [id number] 091 [id number] Methodi 10:20:00 11:37:02 [address] 13211.1.[address] 3.430.2.7 Hospit a .3.213538 l .8 2021-12-07 2021-12-07 Travel 1.2.840.1 1.2.296.903 4415 328007 Methodi 00:00:00 00:00:[address] 3.430.2.7 0.2.7.3.698 Ho spita .3.369103 084.8 l .8 2021-11-29 2021-11-29 Travel 1.2.840.1 1.2.614.758 1571 899204 Methodi 00:00:00 00:00:[address] 3.430.2.7 0.2.7.3.698 Ho spita .3.970065 084.8 l .8 2021-11-16 2021-11-16 Refill [place], 1.2.840.1 [id number] 49399 Methodi 00:00:00 00:00:[address] [place] 3.430.2.7 Hospi ta .3.244765 l .8 2021-10-26 2021-10-26 Telephone [place], 1.2.840.1 [id number] 236 [id number] Methodi 00:00:00 00:00:[address] [place] 3.430.2.7 Hospi ta .3.656267 l .8 2021-10-24 2021-10-24 Telephone [place], 1.2.840.1 [id number] 970 [id number] Methodi 00:00:00 00:00:[address] [place] 3.430.2.7 Hospi ta .3.712622 l .8 2021-10-21 2021-10-21 Telephone [place], 1.2.840.1 [id number] 944 8581551 Methodi 00:00:00 00:00:[address] [place] 3.430.2.7 Hospi ta .3.957787 l .8 2021-10-20 2021-10-20 Telephone [place], 1.2.840.1 [id number] 338 3539353 Methodi 00:00:00 00:00:[address] [place] 3.430.2.7 Hospi ta .3.787480 l .8 2021-10-11 2021-10-11 Telephone [place], 1.2.840.1 [id number] 533 [id number] Methodi 00:00:00 00:00:[address] [place] 3.430.2.7 Hospi ta .3.303087 l .8 2021-10-06 2021-10-06 Office [place], 1.2.840.1 [id number] 07690 48498 Methodi 15:15:00 15:51:36 Visit Poli 14416.1.[address] [place] 3.430.2.7 Hospi ta .3.332234 l .8 2021-10-06 2021-10-06 Travel 1.2.840.1 1.2.025.291 1014 123029 Methodi 00:00:00 00:00:[address] 3.430.2.7 0.2.7.3.698 Ho spita .3.627778 084.8 l .8 2021-10-04 2021-10-04 Telephone [place], 1.2.840.1 [id number] 964 [id number] Methodi 00:00:00 00:00:[address] [place] 3.430.2.7 Hospi ta .3.873934 l .8 2021-10-03 2021-10-03 Telephone Jose, 1.2.840.1 [id number] 716 [id number] Methodi 00:00:00 00:00:[address] 3.430.2.7 Hospit a .3.525354 l .8 2021-09-28 2021-09-28 Office Adrianna Miranda 1.2.840.1 [id number] 007 [id number] Methodi 14:30:00 16:45:56 [place] [address]. 31294.1.[address] 3.430.2.7 Hospit a .3.125156 l .8 2021-09-28 2021-09-28 Travel 1.2.840.1 1.2.647.699 7545 602420 Methodi 00:00:00 00:00:[address] 3.430.2.7 0.2.7.3.698 Ho spita .3.154144 084.8 l .8 2021-09-28 2021-09-28 Outpatient ADRIANNA MIRANDA [facility] 2099 850[address] [employer] 00:00:00 00:00:[address] 2021-09-19 2021-09-19 Travel 1.2.840.1 1.2.698.313 7330 738312 Methodi 00:00:00 00:00:[address] 3.430.2.7 0.2.7.3.698 Ho spita .3.428336 084.8 l .8 2021-09-12 2021-09-12 Travel 1.2.840.1 1.2.141.595 2956 920302 Methodi 00:00:00 00:00:[address] 3.430.2.7 0.2.7.3.698 Ho spita .3.831155 084.8 l .8 2021-08-15 2021-08-15 Telephone [place], 1.2.840.1 [id number] 834 2677124 Methodi 00:00:00 00:00:[address] [place] 3.430.2.7 Hospi ta .3.327376 l .8 2021-07-04 2021-07-04 Telephone [place], 1.2.840.1 [id number] 037 [id number] Methodi 00:00:00 00:00:[address] [place] 3.430.2.7 Hospi ta .3.508189 l .8 2021-06-27 2021-06-27 Telephone [place], 1.2.840.1 [id number] 883 9523078 Methodi 00:00:00 00:00:[address] [place] 3.430.2.7 Hospi ta .3.452262 l .8 2021-06-21 2021-06-21 Telephone [place], 1.2.840.1 [id number] 171 [id number] Methodi 00:00:00 00:00:[address] [place] 3.430.2.7 Hospi ta .3.002886 l .8 2021-06-19 2021-06-19 Refill [place], 1.2.840.1 [id number] 14663 67361 Methodi 00:00:00 00:00:[address] [place] 3.430.2.7 Hospi ta .3.136482 l .8 2021-05-31 2021-05-31 Telephone [place], 1.2.840.1 [id number] 514 [id number] Methodi 00:00:00 00:00:[address] [place] 3.430.2.7 Hospi ta .3.628891 l .8 2021-05-30 2021-05-30 Telephone [place], 1.2.840.1 [id number] 969 [id number] Methodi 00:00:00 00:00:[address] [place] 3.430.2.7 Hospi ta .3.631327 l .8 2021-04-22 2021-04-22 Telephone [place], 1.2.840.1 [id number] 291 [id number] Methodi 00:00:00 00:00:[address] [place] 3.430.2.7 Hospi ta .3.033300 l .8 2021-04-15 2021-04-15 Refill [place], 1.2.840.1 126167472 91451 33385 Methodi 00:00:00 00:00:[address] [place] 3.430.2.7 Hospi ta .3.187654 l .8 2021-04-12 2021-04-12 Telephone [place], 1.2.840.1 [id number] 024 [id number] Methodi 00:00:00 00:00:[address] [place] 3.430.2.7 Hospi ta .3.229297 l .8 2021-04-04 2021-04-04 Orders [place], 1.2.840.1 [id number] Methodi 00:00:00 00:00:00 Only Poli 91098.1.[address] [place] 3.430.2.7 Hospi ta .3.720859 l .8 2021-04-04 2021-04-04 Zee Aaron, 1.2.840.1 [id number] 21001 09389 Methodi 00:00:00 00:00:00 Only Poli 79397.1.[address] [place] 3.430.2.7 Hospi ta .3.342322 l .8 2021-03-31 2021-03-31 Lab [place], 1.2.840.1 [id number] 60964 Methodi 10:00:00 10:05:[address] [place] 3.430.2.7 Hospi ta .3.059879 l .8 2021-03-31 2021-03-31 Office [place], 1.2.840.1 [id number] Methodi 09:15:00 09:51:04 Visit Poli 51232.1.[address] [place] 3.430.2.7 Hospi ta .3.359285 l .8 2021-03-31 2021-03-31 Travel 1.2.840.1 1.2.751.614 8930 334040 Methodi 00:00:00 00:00:[address] 3.430.2.7 0.2.7.3.698 Ho spita .3.237327 084.8 l .8 2021-03-30 2021-03-30 Telephone [place], 1.2.840.1 [id number] Methodi 00:00:00 00:00:[address] 3.430.2.7 Hospi ta .3.704171 l .8 2021-03-29 2021-03-29 Travel 1.2.840.1 1.2.429.433 8850 [id number] Methodi 00:00:00 00:00:[address] 3.430.2.7 0.2.7.3.698 Ho spita .3.409571 084.8 l .8 2021 2021 Refill [place], 1.2.840.1 [id number] Methodi 00:00:00 00:00:[address] [place] 3.430.2.7 Hospi ta .3.246714 l .8 2021-02-23 2021-02-23 Telephone [place], 1.2.840.1 [id number] Methodi 00:00:00 00:00:[address] [place] 3.430.2.7 Hospi ta .3.706191 l .8 2021-02-07 2021-02-07 Telephone [place], 1.2.840.1 [id number] Methodi 00:00:00 00:00:[address] [place] 3.430.2.7 Hospi ta .3.466626 l .8 2021-02-02 2021-02-02 Refill [place], 1.2.840.1 [id number] Methodi 00:00:00 00:00:[address] [place] 3.430.2.7 Hospi ta .3.215134 l .8 2021-01-31 2021-01-31 Telephone [place], 1.2.840.1 [id number] Methodi 00:00:00 00:00:[address] [place] 3.430.2.7 Hospi ta .3.324046 l .8 2021-01-14 2021-01-14 [facility]patient [facility] [id number] [address] [employer] 00:00:00 00:00:00 POLI [address] 2021-01-05 2021-01-05 Outpatient [facility] [id number] [address] [employer] 00:00:00 00:00:00 POLI [address] 2020-12-28 2020-12-28 Outpatient [facility] [id number] [address] [employer] 00:00:00 00:00:00 POLI [address] 2020-12-21 2020-12-21 Outpatient [facility] [id number] [address] [employer] 00:00:00 00:00:00 POLI [address] 2020-12-21 2020-12-21 Outpatient [facility] [id number] [address] [employer] 00:00:00 00:00:00 POLI 799 [address] di 2020-11-05 2020-11-05 Outpatient [facility] [id number] [address] [employer] 00:00:00 00:00:00 POLI [address] 2020-10-25 2020-10-25 Outpatient [facility]AL[facility] [id number] [address] [employer] 00:00:00 00:00:00 POLI [address] 2020-08-24 2020-08-24 Outpatient OBDULIA, FB [facility] 7503 [facility] 11:43:00 12:55:00 NERISSA 2020-07-15 2020-07-15 Outpatient [facility] [id number] [address] [employer] 00:00:00 00:00:00 POLI 251 [address] 2020-07-15 2020-07-15 Outpatient [facility]AL[facility] [id number] [address] [employer] 00:00:00 00:00:[address] 2020-07-15 2020-07-15 Outpatient GALEN [facility] [id number] [address] [employer] 00:00:00 00:00:00 POLI [address] 2020-07-14 2020-07-14 Outpatient ADRIANNA MIRANDA [facility] 2100 [id number] [employer] 00:00:00 00:00:[address] 2020-07-14 2020-07-14 Outpatient ADRIANNA MIRANDA [facility] 2100 [id number] [employer] 00:00:00 00:00:[address] 2020-03-01 2020-03-01 Outpatient [facility] [id number] [address] [employer] 00:00:00 00:00:00 POLI [address] 2019-12-17 2019-12-17 Outpatient ADRIANNA MIRANDA [facility] 2100 [id number] [employer] 00:00:00 00:00:[address] 2019-12-09 2019-12-09 Outpatient GALEN [facility] [id number] [address] [employer] 00:00:00 00:00:00 POLI [address] 2019-12-09 2019-12-09 Outpatient [facility] [id number] [address] [employer] 00:00:00 00:00:[address] 2019-09-25 2019-09-25 Discharged GRECIA CARTER06 796695 [facility] 00:55:00 13:28:[address] [facility] [address] [facility]IVE [facility] 2019-09-25 2019-09-25 Discharged ER BILL FLORES [id number] [facility] 00:55:00 00:55:00 Inpatient KARI 45 (obs) [facility] 2019-08-26 2019-08-26 [facility] [id number] [address] [employer] 00:00:00 00:00:00 POLI [address] 2019-07-29 2019-07-29 Outpatient KARLA SchroederCL OUTD [id number] 2000 [facility] 12:10:00 12:10:00 Robi 89 [facility] 2019-07-29 2019-07-29 Outpatient KARLA UsWU 3DAY [id number] 2100 [facility] 00:00:00 00:00:[address] [facility] 2019-07-19 2019-07-19 Outpatient KARLA WilsonWU SURG [id number] 1706 [facility] 12:00:00 12:00:[address] [facility] 2019-05-21 2019-05-21 Outpatient [facility] [id number] [address] [employer] 00:00:00 00:00:[address] POLI [address] 2019-04-21 2019-04-21 Outpatient MHFB [facility]FB 7502 [facility] 11:41:00 11:41:00 Results Test Description Test Time Test Comments Results Result Comments Source FREE T4 2022-08-16 05:47:50 Test Item Value Reference Range Interpretation Comme nts FREE T4 (test code = 1.45 See_Comment [Autom ated message] The system [id number]) which generated this result transmitted ref erence range: 0.78 - 2.20 ng/dL:. The reference range was not u sed to interpret this result as normal/abnormal. Lab Interpretation (test code = Normal 10911-1) [facility] METABOLIC PANEL (01625)2022-08-14 00:35:15 Test Item Value Reference Range Interpretation Comments NA (test code = 138 mmol/L 135-145 9825598628) K (test code = 4.2 mmol/L 3.5-5.0 6044126099) CL (test code = 101 mmol/L 98-108 2324368640) CO2 TOTAL (test code = 30 mmol/L 23-31 3827538808) AGAP (test code = 7 2-16 3102088740) BUN (test code = 36 mg/dL 7-23 H 3963348379) GLUCOSE (test code = 82 mg/dL 70-110 3911462411) CREATININE (test code = 1.27 mg/dL 0.50-1.04 H 6894209116) TOTAL BILI (test code = 0.9 mg/dL 0.1-1.0 3858285798) CALCIUM (test code = 10.6 mg/dL 8.6-10.6 9066397189) T PROTEIN (test code = 6.5 g/dL 6.3-8.2 0512671688) ALBUMIN (test code = 4.1 g/dL 3.5-5.0 0385645429) ALK PHOS (test code = 37 U/L 34-122 6739028511) ALTv (test code = 22 U/L 5-35 1742-6) AST(SGOT) (test code = 33 U/L 13-40 1422790429) eGFR (test code = 39.9 mL/min/1.73m2 2503201412) BANDAR (test code = BANDAR) Association of [...] tests). Lab Interpretation Abnormal (test code = 27470-8) [id number]31 Test Item Value Reference Range Interpretation Comments TROPONIN I (test code = 0.023 ng/mL <=0.034 8388116427) BANDAR (test code = BANDAR) Reference (Normal) [...] biotin. Lab Interpretation Normal (test code = 14181-3) [facility] [id number] 00:00:16 Test Item Value Reference Range Interpretation Comments NT-proBNP (test code = 408 pg/mL <=450 6325912117) BANDAR (test code = BANDAR) Biotin has been reported to cause a negative bias, interpret results relative to patient's use of biotin. Lab Interpretation (test Normal code = 88592-8) [facility]AL[facility]ATE2023-[facility]-21 23:50:54 SALICYLATE<10mg/L08/13/2022 6:50 PM [facility] LABORATORYTherapeutic Range: ? Analgesic and Antipyretic Use ? 20- 100 mg/L ? ? Anti-Inflammatory Use ? 100-250 mg/L Toxic Range: ? Greater than 300 mg/LUnHCA [facility] Healthcare MainlandETHANOL2023-05-21 23:50:49ALCOHOL<10mg/dL08/13/2022 6:50 PM [facility]THE [facility]<10 Jsltfpsx23-926 Toxic>100 Depression of STOCK DRIER TENDER>400 Fatalities ReportedUnHCA [facility] Healthcare MainlandCB WITH DIFF 2022-08-13 23:44:13 Test Item Value Reference Range Interpretation Comments WBC (test code = 5.56 See_Comment [Automated 0065-2) message] The sy stem which generated this result transmitted reference range : 4.30 - 11.10 10*3/?L. The reference range was not used to interpret this result as normal/abnormal . RBC (test code = 4.70 See_Comment [Automated 831-8) message] The sy stem which generated this [...] RDW-SD (test code = 48.9 fL 39.0-49.9 17475-8) RDW-CV (test code = 14.1 % 12.0-15.5 788-0) PLT (test code = 298 See_Comment [Automated 587-3) message] The sy stem which generated this result transmitted reference range : 166 - 358 10*3/ ?L. The reference r john was not used to interpret this result as normal/abnormal . MPV (test code = 10.5 fL 9.5-12.9 53246-5) NRBC/100 WBC (test 0.0 See_Comment [Automat ed code = 6588491683) message] The system which generated this result transmitted reference range : 0.0 - 10.0 /100 WBCs. The refer ence range was not u sed to interpret th is result as normal/abnormal . NRBC x10^3 (test code See_Comment [Auto mated = 5105931336) message] The s ystem which generated this result transmitted reference range : 10*3/?L. The reference range was not used to interpret this result as normal/abnormal . GRAN MAT (NEUT) % 58.6 % (test code = 770-8) IMM GRAN % (test code 0.40 % = 8190179574) LYMPH % (test code = 26.4 % 736-9) MONO % (test code = 8.5 % 5905-5) EOS % (test code = 5.0 % 713-8) BASO % (test code = 1.1 % 706-2) GRAN MAT x10^3(ANC) 3.26 10*3/uL 1.88-7.09 (test code = 9897591106) IMM GRAN x10^3 (test 0.00-0.06 code = 3403788869) LYMPH x10^3 (test code 1.47 10*3/uL 1.32-3.29 = 731-0) MONO x10^3 (test code 0.47 10*3/uL 0.33-0.92 = 742-7) EOS x10^3 (test code = 0.28 10*3/uL 0.03-0.39 711-2) BASO x10^3 (test code 0.06 10*3/uL 0.01-0.07 = 704-7) Lab Interpretation Abnormal (test code = 98701-3) [facility] [id number] 16:16:00 Test Item Value Reference Range Interpretation Comments POC glucose (test 90 mg/dL 65-99 [employer] Supervisor N roberto: Green code = 20069-3) IngridDevice ID: [id number] able: [facility] Notified RNChar table: No Action Needed [facility] rocleeh6309-71-00 16:16:00 Test Item Value Reference Range Interpretation Comments POC glucose (test 90 mg/dL 65-99 [employer] Supervisor N roberto: Green code = 11729-3) IngridDevice ID: [id number] able: [facility] Notified RNChar table: No Action Needed [facility] aaxuvpp3599-18-49 16:16:00 Test Item Value Reference Range Interpretation Comments POC glucose (test 90 mg/dL 65-99 [employer] Supervisor N roberto: Green code = 53814-8) IngridDevice ID: [id number] able: [facility] Notified RNChar table: No Action Needed [facility] vdzmwnt7980-09-08 16:16:00 Test Item Value Reference Range Interpretation Comments POC glucose (test 90 mg/dL 65-99 [employer] Supervisor N roberto: Green code = 01078-0) [employer]gridDevice ID: [id number] able: [facility] Notified RNChar table: No Action Needed [facility]2022-11-07 16:16:00 Test Item Value Reference Range Interpretation Comments POC glucose (test 90 mg/dL 65-99 [employer] P[employer] Plant Supervisor N roberto: Green code = 87928-9) IngridDevice ID: [id number] able: [facility] Notified RNChar table: No Action Needed [facility]Com[facility] metabolic trtto6014-77-05 13:06:00 Test Item Value Reference Interpretation Comments [...] qi/gfr%5Fcalcul ator [Automated mess age] The system [employer] generated this result transmit danielle reference range : > OR = 60 mL/min/1.73m2. The reference range was not used to interpret this result as normal/abnormal . BUN/creatinine NOT APPLICABLE See_Comment [Automated message] ratio (test code = The Movayae m which 3097-3) generated this result transmit danielle reference range : 6 - 22 (calc). The reference range was not used to interpret this result as normal/abnormal . Sodium (test code = 142 mmol/L 298-314 0433-2) Potassium (test 3.8 mmol/L 3.5-5.3 code = 2823-3) Chloride (test code 100 mmol/L 98-110 = 2075-0) CO2 (test code = 32 mmol/L 20-32 2027-) Calcium (test code 10.4 mg/dL 8.6-10.4 = 39513-9) Protein (test code 7.4 g/dL 6.1-8.1 = 2885-2) Albumin, S (test 4.8 g/dL 3.6-5.1 code = 1751-7) Globulin, total See_Comment [Automated message] (test code = The [place] 32349-6) generated this result transmit danielle reference range : 1.9 - 3.7 g/dL (merissa c). The reference r john was not used to interpret this result as normal/abnormal . Albumin/globulin See_Comment [Automated message] ratio (test code = [facility] which 1759-0) generated this result transmit danielle [...] RAC) Organization Information: Site ID: SAL Name: [facility] on Lab Address: [address] [place] [address] Director: Robi Rodas Lab Interpretation Abnormal (test code = 68816-0) [facility] [id number] 13:06:00 Test Item Value Reference Range Interpretation [...] calculated (test <100 Desira ble code = 24985-7) range <100 m g/dL for primary prevention; <70 mg/dL for patients with C HD or diabetic patients with > or = 2 CHD risk factors. LDL-C is now calculated using the Geoff-Jaya calculation, which is a validated novel method providin g better accuracy than the Friedewald equation in the estimation of LDL-C. Geoff Elizabeth S et al. MARY. 2013;310(19): 9107-8558 (http://educati on .QuestDiagnosti Quri .com/faq/IOV914 ) Cholesterol/HDL See_Comment [Automated ratio (test code = message] The 9830-1) system which generated this result transmitted reference range : <5.0 (calc). Th e reference range was not used to interpret this result as normal/abnormal . Non-HDL cholesterol See_Comment H For rolly ents with (test code = diabetes plus 1 56667-7) major ASCVD ris k factor, treatin g [...] RAC) Organization Information: Site ID: SAL [facility]: [facility] Address: [address] [place], [place] [address] Director: Robi Rodas Lab Interpretation Abnormal (test code = 06472-8) [facility] CampusHemoglobin [id number] 13:06:00 Test Item Value Reference Range Interpretation [...] specif ic patient populat ions. Standards of Mt dical Care in Diabetes(ADA). [Automated mess age] The system [employer] generated this result transmitted ref erence range: <5.7 % o f total Hgb. The reference range was not used to int erpret this result as normal/abnormal . BANDAR (test code = FASTING:YES BANDAR) FASTING: YES RAC (test code = Performing RAC) Organization Information: Site ID: JACKA Name: [facility] Address: [address] [place] [address] Director: Robi Rodas [facility] CampusThyroid stimulating hwdabdi8622-85-86 13:06:00 Test Item Value Reference Range Interpretation [...] RAC) Organization Information: Site ID: RGA Name: vivioAshley peterson Lab Address: [address] [place] [address] Director: Robi Rodas Lab Interpretation Abnormal (test code = 15683-0) [facility] with platelet and bxjoxkxdaosw6066-93-38 13:06:00 Test Item Value Reference Range Interpretation [...] RAC) Organization Information: Site ID: RGA [facility] Address: [address] [place] [address] Director: Robi Rodas Lab Interpretation Abnormal (test code = 08832-3) [facility] CampusUrinalysis, automated with ahfltkgvfq8157-55-06 13:06:00 Test Item Value Reference Range Interpretation Comments Color, UA (test code YELLOW YELLOW = 5778-6) Appearance (test CLEAR CLEAR code = 5767-9) Specific gravity, 1.001-1.035 urine (test code = 5811-5) pH, urine (test code 5.0-8.0 = 5803-2) Glucose, urine (test NEGATIVE NEGATIVE code = 06687-0) Bilirubin, UA (test NEGATIVE NEGATIVE code = 5770-3) Ketones, UA (test NEGATIVE NEGATIVE code = 2514-8) Occult blood, urine NEGATIVE NEGATIVE (test code = 5794-3) Protein, UA (test TRACE NEGATIVE A code = 16935-3) Nitrite, UA (test NEGATIVE NEGATIVE code = [...] code = NONE SEEN See_Comment [Autom ated 59020-1) message] The system which generated this result transmitted reference range : < OR = 2 /HPF. The reference range was not used to interpr et this result as normal/abnormal . Squamous epithelial 0-5 See_Comment [Automa danielle cells, UA (test code message ] The = 84242-5) system which generated this result transmitted reference [...] RAC) Organization Information: Site ID: RGA Name: vivioBrittney nicholas Lab Address: [address] [place] [address] Director: Robi Rodas Lab Interpretation Abnormal (test code = 97810-4) [facility] CampusVitamin D 25 hydroxy lmveu8678-58-71 13:06:00 Test Item Value Reference Range Interpretation [...] please refer to http://educatio n.Q uestDiagnostics .co m/faq/PPL596 (T his link is being provided for informational/e sunil ational purpose s only.) BANDAR (test code = FASTING:YES FASTING: BANDAR) YES RAC (test code = Performing RAC) Organization Information: Site ID: RGA [facility] Address: [address] [place] [phone] Director: [facility] slcat6585-33-58 13:06:00 Test Item Value Reference Interpretation Comments [...] qi/gfr%5Fcalcul ator [Automated mess age] The system [employer] h generated this result transmit danielle reference [...] . Sodium (test code = 142 mmol/L 184-515 8889-2) Potassium (test 3.8 mmol/L 3.5-5.3 code = 2823-3) Chloride (test code 100 mmol/L 98-110 = 2075-0) CO2 (test code = 32 mmol/L 20-32 2027-9) Calcium (test code 10.4 mg/dL 8.6-10.4 = 57877-7) Protein (test code 7.4 g/dL 6.1-8.1 = 2885-2) Albumin, S (test 4.8 g/dL 3.6-5.1 code = 1751-7) Globulin, total 2.6 See_Comment [Automated message] (test code = The [place] h 85841-6) generated this result transmit danielle reference range : 1.9 - 3.7 g/dL (merissa c). The reference r john was not used to interpret this result as normal/abnormal . Albumin/globulin 1.8 See_Comment [Automated message] ratio (test code = The syste m which 1758-0) generated this result transmit danielle reference range [...] RAC) Organization Information: Site ID: RGA Name: [facility]ioLani on Lab Address: [address] [place] [phone] Director: Robi Rodas Lab Interpretation Abnormal (test code = 09939-0) [facility] [id number] 13:06:00 Test Item Value Reference Range Interpretation [...] calculated (test <100 Desira ble code = 36911-6) range <100 m g/dL for primary prevention; <70 mg/dL for patients with C HD or diabetic patients with > or = 2 CHD risk factors. LDL-C is now calculated using the Pradeep calculation, which is a validated novel method loisin g better accuracy than the Friedewald equation in the estimation of LDL-C. Geoff Elizabeth S et al. MARY. 2013;310(19): 6724-6236 (http://educati on .Simmery .com/faq/DIO634 ) Cholesterol/HDL 3.3 See_Comment [Automated ratio (test code = message] The 9830-1) system which generated this result transmitted reference range : <5.0 (calc). Th e reference range was not used to interpret this result as normal/abnormal . Non-HDL cholesterol 140 See_Comment H For rolly ents with (test code = diabetes plus 1 87160-1) major ASCVD ris k factor, treatin g [...] RAC) Organization Information: Site ID: RGA Name: vivioBrittney Lab Address: [address] [place] [address] Director: Robi Rodas Lab Interpretation Abnormal (test code = 95711-5) [facility] CampusHemoglobin [id number] 13:06:00 Test Item Value Reference Range Interpretation [...] = Performing RAC) Organization Information: Site ID: [facility] Name: [facility] Lab Address: [address] [place] [address] Director: Robi Rodas [facility] CampusThyroid stimulating oqltduy8256-74-64 13:06:00 Test Item Value Reference Range Interpretation Comments TSH (test code = 0.17 See_Comment L [Automated 9256-3) message] The system which generated this result transmitted reference range : 0.40 - 4.50 mIU/L. The reference range was not used to interpret this result as normal/abnormal . BANDAR (test code = FASTING:YES BANDAR) FASTING: YES RAC (test code = Performing RAC) Organization Information: Site ID: [facility] Name: [facility] Lab Address: [address] [place] [address] Director: Robi Rodas Lab Interpretation Abnormal (test code = 90061-8) [facility] with platelet and weeilpljjdpg6741-51-56 13:06:00 Test Item Value Reference Range Interpretation Comments WBC (test code = 10.1 See_Comment [Automated 8874-2) message] The system which generated this result transmitted reference range : 3.8 - 10.8 Thousand/uL. Th e reference range was not used to interpret this result as normal/abnormal . RBC (test code = 4.24 See_Comment [Automated -8) message] The system which generated this result [...] RAC) Organization Information: Site ID: RGA Name: vivioAshley peterson Lab Address: [address] [place] [address] Director: Robi Rodas Lab Interpretation Abnormal (test code = 25162-4) [facility], automated with zgljhdohip7665-25-99 13:06:00 Test Item Value Reference Range Interpretation Comments Color, UA (test code YELLOW YELLOW = 5778-6) Appearance (test CLEAR CLEAR code = 5767-9) Specific gravity, 1.013 1.001-1.035 urine (test code = 5811-5) pH, urine (test code 7.5 5.0-8.0 = 5803-2) Glucose, urine (test NEGATIVE NEGATIVE code = 76652-4) Bilirubin, UA (test NEGATIVE NEGATIVE code = 5770-3) Ketones, UA (test NEGATIVE NEGATIVE code = 2514-8) Occult blood, urine NEGATIVE NEGATIVE (test code = 5794-3) Protein, UA (test TRACE NEGATIVE A code = 14259-7) Nitrite, UA (test NEGATIVE NEGATIVE code = [...] code = NONE SEEN See_Comment [Autom ated 14145-6) message] The system which generated this result transmitted reference range : < OR = 2 /HPF. The reference range was not used to interpr et this result as normal/abnormal . Squamous epithelial 0-5 See_Comment [Automa danielle cells, UA (test code message ] The = 61469-3) system which generated this result transmitted reference [...] = Performing RAC) Organization Information: Site ID: [facility]: [facility] Address: [address] [place] [address] Director: Robi Rodas Lab Interpretation Abnormal (test code = 15744-5) [facility] CampusVitamin D 25 hydroxy [id number] 13:06:00 Test Item Value Reference Range Interpretation Comments Vitamin D, 71 ng/mL 30-100 Vitamin D Statu s 25-hydroxy (test 25-OH Vitam in D: code = 1988-) Deficiency: < 20 ng/mLInsufficie ncy : 20 - 29 ng/mLOptimal: > or = 30 ng/mL F or 25-OH Vitamin D testing on patients on D2-supplementat ion and patients fo r whom quantitati on of D2 and D3 fractions is required, the QuestAssureD(TM )25 -OH VIT D, (D2,D3), LC/MS/ MS is recommended: order code 9288 8 (patients >2yrs).See Note 1 Note 1 For additional information, please refer to http://educatio n.Q uestDiagnostics .co m/faq/GOA238 (T his link is being provided for informational/e sunil ational purpose s only.) BANDAR (test code = FASTING:YES FASTING: BANDAR) YES RAC (test code = Performing RAC) Organization Information: Site ID: [facility] Address: [address] [place] [address] Director: Robi Rodas [facility] CampusComprehensive metabolic [id number] 13:06:00 Test Item Value Reference Interpretation Comments [...] Creatinine or Cystatin Cresul t, go to [email or web address] qi/gfr%5Fcalcul ator [Automated mess age] The system [employer] generated this result transmit dnaielle reference range : > OR = 60 mL/min/1.73m2. The reference range was not used to interpret this result as normal/abnormal . BUN/creatinine NOT APPLICABLE See_Comment [Automated message] ratio (test code = The [employer] which 3097-3) generated this result transmit danielle reference range : 6 - 22 (calc). The reference range was not used to interpret this result as normal/abnormal . Sodium (test code = 142 mmol/L 226-490 0903-2) Potassium (test 3.8 mmol/L 3.5-5.3 code = 2823-3) Chloride (test code 100 mmol/L 98-110 = 2075-0) CO2 (test code = 32 mmol/L -32 2027-) Calcium (test code 10.4 mg/dL 8.6-10.4 = 95480-5) Protein (test code 7.4 g/dL 6.1-8.1 = 2885-2) Albumin, S (test 4.8 g/dL 3.6-5.1 code = 1751-7) Globulin, total 2.6 See_Comment [Automated message] (test code = The system [employer] 43440-2) generated this result transmit danielle reference range : 1.9 - 3.7 g/dL (merissa c). The reference r john was not used to interpret this result as normal/abnormal . Albumin/globulin 1.8 See_Comment [Automated message] ratio (test code = The [employer] which 1759-0) generated this result transmit danielle reference range : 1.0 - 2.5 (calc). T he reference range was not used to interpret this result as normal/abnormal . Total bilirubin 0.6 mg/dL 0.2-1.2 (test code = 1974-2) Alkaline 43 U/L 37-153 phosphatase (test code = 6768-6) AST (test code = 22 U/L 10-35 0-8) ALT (test code = 17 U/L 6-29 1742-6) BANDAR (test code = FASTING:YES BANDAR) FASTING: YES RAC (test code = Performing RAC) Organization Information: Site ID: RGA Name: [facility] Address: [address] [place] [phone] Director: Rboi Rodas Lab Interpretation Abnormal (test code = 74175-0) [facility] [id number] 13:06:00 Test Item Value Reference Range Interpretation [...] calculated (test <100 Desira ble code = 94222-7) range <100 m g/dL for primary prevention; <70 mg/dL for patients with C HD or diabetic patients with > or = 2 CHD risk factors. LDL-C is now calculated using the Geoff-Jaya calculation, which is a validated novel method providin g better accuracy than the Friedewald equation in the estimation of LDL-C. Geoff S S et al. MARY. 2013;310(19): 9086-2283 (http://educati on .[employer] CorporationDiagnostStonehenge Gardens .com/faq/JIU100 ) Cholesterol/HDL 3.3 See_Comment [Automated ratio (test code = message] The 9830-1) system which generated this result transmitted reference range : <5.0 (calc). Th e reference range was not used to interpret this result as normal/abnormal . Non-HDL cholesterol 140 See_Comment H For rolly ents with (test code = diabetes plus 1 41709-4) major ASCVD ris k factor, treatin g [...] RAC) Organization Information: Site ID: SAL Name: [facility] Address: [address] [place], [place] [id number] Director: Robi Rodas Lab Interpretation Abnormal (test code = 29331-9) [facility]emoglobin [id number] 13:06:00 Test Item Value Reference Range Interpretation [...] specif ic patient populat ions. Standards of Mt dical Care in Diabetes(ADA). [Automated mess age] The system [employer] generated this result transmitted ref erence range: <5.7 % o f total Hgb. The reference range was not used to int erpret this result as normal/abnormal . BANDAR (test code = FASTING:YES BANDAR) FASTING: YES RAC (test code = Performing RAC) Organization Information: Site ID: JACKA Name: [facility] Address: [address] [place] [phone] Director: Robi Rodas [facility] CampusThyroid stimulating qukallw7535-95-72 13:06:00 Test Item Value Reference Range Interpretation [...] RAC) Organization Information: Site ID: RGA Name: [facility] Lab Address: [address] [place] [phone] Director: Robi Rodas Lab Interpretation Abnormal (test code = 48518-7) [facility] with platelet and eaaaogwwbvbi5226-19-46 13:06:00 Test Item Value Reference Range Interpretation Comments WBC (test code = 10.1 See_Comment [Automated 3890-2) message] The system which generated this result transmitted reference range : 3.8 - 10.8 Thousand/uL. Th e reference range was not used to interpret this result as normal/abnormal . RBC (test code = 4.24 See_Comment [Automated 049-8) message] The system which generated this result [...] RAC) Organization Information: Site ID: RGA [facility] Address: [address] [place] [phone] Director: Robi Rodas Lab Interpretation Abnormal (test code = 82708-1) [facility]inal[facility], automated with snzvmfrcgi0027-15-80 13:06:00 Test Item Value Reference Range Interpretation Comments Color, UA (test code YELLOW YELLOW = 5778-6) Appearance (test CLEAR CLEAR code = 5767-9) Specific gravity, 1.013 1.001-1.035 urine (test code = 5811-5) pH, urine (test code 7.5 5.0-8.0 = 5803-2) Glucose, urine (test NEGATIVE NEGATIVE code = 35281-8) Bilirubin, UA (test NEGATIVE NEGATIVE code = 5770-3) Ketones, UA (test NEGATIVE NEGATIVE code = 2514-8) Occult blood, urine NEGATIVE NEGATIVE (test code = 5794-3) Protein, UA (test TRACE NEGATIVE A code = 20722-3) Nitrite, UA (test NEGATIVE NEGATIVE code = [...] code = NONE SEEN See_Comment [Autom ated 01384-1) message] The system which generated this result transmitted reference range : < OR = 2 /HPF. The reference range was not used to interpr et this result as normal/abnormal . Squamous epithelial 0-5 See_Comment [Automa danielle cells, UA (test code message ] The = 49261-8) system which generated this result transmitted reference [...] RAC) Organization Information: Site ID: RGA Name: [facility] Address: [address] [place] [phone] Director: Robi Rodas Lab Interpretation Abnormal (test code = 95579-8) [facility] CampusVitamin D 25 hydroxy uevmj2183-54-72 13:06:00 Test Item Value Reference Range Interpretation [...] please refer to http://educatio n.Q uestDiagnostics .co m/faq/UAG069 (T his link is being provided for informational/e sunil ational purpose s only.) BANDAR (test code = FASTING:YES FASTING: BANDAR) YES RAC (test code = Performing RAC) Organization Information: Site ID: [facility]GA [facility] Address: [address] [place] [phone] Director: Robi Rodas [facility] CampusComprehensive metabolic uafph7591-27-24 13:06:00 Test Item Value Reference Interpretation Comments [...] qi/gfr%5Fcalcul ator [Automated mess age] The system [employer] generated this result transmit danielle reference range [...] . Sodium (test code = 142 mmol/L 585-900 9333-2) Potassium (test 3.8 mmol/L 3.5-5.3 code = 2823-3) Chloride (test code 100 mmol/L 98-110 = 2075-0) CO2 (test code = 32 mmol/L 20-32 2027-9) Calcium (test code 10.4 mg/dL 8.6-10.4 = 84518-5) Protein (test code 7.4 g/dL 6.1-8.1 = 2885-2) Albumin, S (test 4.8 g/dL 3.6-5.1 code = 1751-7) Globulin, total 2.6 See_Comment [Automated message] (test code = The [place] h 01249-2) generated this result transmit danielle reference range [...] RAC) Organization Information: Site ID: RGA [facility] Address: [address] [place] [phone] Director: Robi Rodas Lab Interpretation Abnormal (test code = 92962-8) [facility] CampusLipid [id number] 13:06:00 Test Item Value Reference Range Interpretation [...] calculated (test <100 Desira ble code = 00608-4) range <100 m g/dL for primary prevention; <70 mg/dL for patients with C HD or diabetic patients with > or = 2 CHD risk factors. LDL-C is now calculated using the Pradeep calculation, which is a validated novel method providin g better accuracy than the Friedewald equation in the estimation of LDL-C. Geoff S S et al. MARY. 2013;310(19): 8357-3179 (http://educati on .[employer] .com/faq/OFC276 ) Cholesterol/HDL 3.3 See_Comment [Automated ratio (test code = message] The 9830-1) system which generated this result transmitted reference range : <5.0 (calc). Th e reference range was not used to interpret this result as normal/abnormal . Non-HDL cholesterol 140 See_Comment H For rolly ents with (test code = diabetes plus 1 52370-3) major ASCVD ris k factor, treatin g [...] RAC) Organization Information: Site ID: RGA Name: [facility] Address: [address] [place] [phone] Director: Robi Rodas Lab Interpretation Abnormal (test code = 44152-9) [facility] HospitalHemoglobin [id number] 13:06:00 Test Item Value Reference Range Interpretation [...] specif ic patient populat ions. Standards of Mt dical Care in Diabetes(ADA). [Automated mess age] The system whic h generated this result transmitted ref erence range: <5.7 % o f total Hgb. The reference range was not used to int erpret this result as normal/abnormal . BANDAR (test code = FASTING:YES BANDAR) FASTING: YES RAC (test code = Performing RAC) Organization Information: Site ID: [facility] Name: [facility] Address: [address] [place] [address] Director: Robi Rodas [facility] CampusThyroid stimulating jssyixm5166-97-56 13:06:00 Test Item Value Reference Range Interpretation Comments TSH (test code = 0.17 See_Comment L [Automated 3941-3) message] The system which generated this result transmitted reference range : 0.40 - 4.50 mIU/L. The reference range was not used to interpret this result as normal/abnormal . BANDAR (test code = FASTING:YES BANDAR) FASTING: YES RAC (test code = Performing RAC) Organization Information: Site ID: [facility] Name: [facility] Address: [address] [place], [place] [id number] Director: Robi Rodas Lab Interpretation Abnormal (test code = 94438-4) [facility] with platelet and hgszuztelaew9134-52-77 13:06:00 Test Item Value Reference Range Interpretation Comments WBC (test code = 10.1 See_Comment [Automated 8326-2) message] The system which generated this result [...] RAC) Organization Information: Site ID: RGA Name: [facility] Address: [address] [place] [phone] Director: Robi Rodas Lab Interpretation Abnormal (test code = 32111-9) [facility] CampusUrinalysis, automated with yzilgaxgfh6995-51-05 13:06:00 Test Item Value Reference Range Interpretation Comments Color, UA (test code YELLOW YELLOW = 5778-6) Appearance (test CLEAR CLEAR code = 5767-9) Specific gravity, 1.013 1.001-1.035 urine (test code = 5811-5) pH, urine (test code 7.5 5.0-8.0 = 5803-2) Glucose, urine (test NEGATIVE NEGATIVE code = 67223-0) Bilirubin, UA (test NEGATIVE NEGATIVE code = 5770-3) Ketones, UA (test NEGATIVE NEGATIVE code = 2514-8) Occult blood, urine NEGATIVE NEGATIVE (test code = 5794-3) Protein, UA (test TRACE NEGATIVE A code = 97680-1) Nitrite, UA (test NEGATIVE NEGATIVE code = [...] code = NONE SEEN See_Comment [Autom ated 26594-7) message] The system which generated this result transmitted reference range : < OR = 2 /HPF. The reference range was not used to interpr et this result as normal/abnormal . Squamous epithelial 0-5 See_Comment [Automa danielle cells, UA (test code message ] The = 23463-9) system which generated this result transmitted reference [...] RAC) Organization Information: Site ID: [facility] Address: [address] [place] [phone] Director: Robi Rodas Lab Interpretation Abnormal (test code = 24091-5) [facility] CampusVitamin D 25 hydroxy [id number] 13:06:00 Test Item Value Reference Range Interpretation Comments Vitamin D, 71 ng/mL 30-100 Vitamin D Statu s 25-hydroxy (test 25-OH Vitam in D: code = 1988-) Deficiency: <20 ng/mLInsufficie ncy : 20 - 29 ng/mLOptimal: [...] please refer to http://educatio n.Q uestDiagnostics .co m/faq/VHK397 (T his link is being provided for informational/e sunil ational purpose s only.) BANDAR (test code = FASTING:YES FASTING: BANDAR) YES RAC (test code = Performing RAC) Organization Information: Site ID: [facility] Address: [address] [place] [phone] Director: Robi Rodas [facility] HospitalHSV 1 and 2 specific Ab [id number] 00:13:00 Test Item Value Reference Interpretation Comments Range HSV 1 IgG (test index H code = 5206-8) HSV 2 IgG (test index H Index Inter pretation code = 5209-2) ----- ------ -------- <0.90 Negative 0.90-1.09 Equiv ocal >1.09 Positive [...] RAC) Organization Information: Site ID: IG Name: [facility] Lab Address: [address] [place] [phone] Director: Dr. Robi Rodas Lab Interpretation Abnormal (test code = 87896-9) [facility] CampusTroponin I sqplndhjp2168-37-65 12:00:00 Test Item Value Reference Range Interpretation Comments Troponin I (test code = 45862-7) 0.389 ng/mL 0.00-0.045 [facility]Troponin I hzhxmkzzp1420-65-04 12:00:00 Test Item Value Reference Range Interpretation Comments Troponin I (test code = 34067-3) 0.389 ng/mL Automated blood nucleated erythrocyte count as percentage of total leukocytes 2019-09-25 04:50:00 Test Item Value Reference Range Interpretation Comments Nucleated Red Blood Cells % (test code 0.0 % 0-0.2 = 49821-3) [facility] HealthAutomated blood neutrophil count (number/volume)2019-09-25 04:50:00 Test Item Value Reference Range Interpretation Comments Neutrophils # (Auto) (test code = 5.2 10*3/uL 1.4-7.0 751-8) [facility] HealthExilesed blood immature granulocyte count as percentage of total giytdsskxc7807-58-63 04:50:00 Test Item Value Reference Range Interpretation Comments Immature Granulocyte # (Auto) (test 0.0400 0.0-0.0310 code = 72105-4) [facility] HealthAutomated blood lymphocyte count (number/volume)2019-09-25 04:50:00 Test Item Value Reference Range Interpretation Comments Lymphocytes # (Auto) (test code = 1.6 10*3/uL 1.2-4.0 731-0) [facility] monocytes automated count (number/volume)2019-09-25 04:50:00 Test Item Value Reference Range Interpretation Comments Monocytes # (Auto) (test code = 0.6 10*3/uL 0.1-0.8 742-7) [facility] HealthAutomated blood eosinophil xmeqr3719-62-64 04:50:00 Test Item Value Reference Range Interpretation Comments Eosinophils # (Auto) (test code = 0.2 10*3/uL 0.0-0.6 711-2) [facility] HealthAutomated blood basophil count (number/volume)2019-09-25 04:50:00 Test Item Value Reference Range Interpretation Comments Basophils # (Auto) (test code = 0.1 10*3/uL 0.0-0.3 704-7) [facility] HealthAutomated blood leukocyte count corrected for nucleated lnxpjeqqvbbd5726-01-07 04:50:00 Test Item Value Reference Range Interpretation Comments Nucleated Red Blood Cells # (test code 0.000 0-0.012 = 90020-3) [facility] erythrocyte sedimentation rate (ESR) measurement by photometricmethod (length/z9914-70-15 04:50:00 Test Item Value Reference Range Interpretation Comments Erythrocyte Sedimentation Rate (test 7 mm/h 0-20 code = 62472-8) [facility] HealthSodium measurement (moles/volume)2019-09-25 04:50:00 Test Item Value Reference Range Interpretation Comments Sodium Level (test code = 95100-6) 139 mmol/L 131-143 [facility] HealthSerum or plasma [...] 21-32 8-9) [facility] HealthSerum or plasma anion nfi5931-79-38 04:50:00 Test Item Value Reference Range Interpretation Comments Anion Gap (test code = 93625-8) 7.0 mmol/L 3.0-11.0 [facility] HealthSerum or plasma urea nitrogen measurement (mass/volume)2019-09-25 04:50:00 Test Item Value Reference Range Interpretation Comments Blood Urea Nitrogen (test code = 23.0 mg/dL 7.0-18.0 3094-0) [facility] HealthSerum or plasma creatinine measurement (mass/volume)2019-09-25 04:50:00 Test Item Value Reference Range Interpretation Comments Creatinine (test code = 2160-0) 0.958 mg/dL 0.550-1.02 [facility] HealthGFR estimate [id number] 04:50:00 Test Item Value Reference Range Interpretation Comments Estimat Glomerular Filtration Rate 56 >60 (test code = 24992-8) [facility] HealthSerum or plasma glucose measurement (mass/volume)2019-09-25 04:50:00 Test Item Value Reference Range Interpretation Comments Glucose Level (test code = 2345-7) 102 mg/dL 74-106 [facility] HealthSerum or plasma calcium measurement (mass/volume)2019-09-25 04:50:00 Test Item Value Reference Range Interpretation Comments Calcium Level (test code = 70571-9) 9.5 mg/dL 8.5-10.1 [facility] HealthSerum or plasma creatine kinase MB measurement (mass/volume) 2019-09-25 04:50:00 Test Item Value Reference Range Interpretation Comments Creatine Kinase MB (test code = 3.3 ng/mL 0.3-3.6 88626-1) [facility] HealthSerum or plasma C reactive protein [...] erythrocyte mean corpuscular hemoglobin concentration (MCHC) measurement ([id number] 04:50:00 Test Item Value Reference Range Interpretation Comments Mean Corpuscular Hemoglobin Concent 32.0 % 32.0-36.0 (test code = 786-4) [facility] HealthAutomated erythrocyte distribution width mwaqf1395-41-22 04:50:00 Test Item Value Reference Range Interpretation Comments Red Cell Distribution Width (test code 13.0 % 0.0-15.5 = 788-0) [facility] HealthAutomated blood platelet count (count/volume)2019-09-25 04:50:00 Test Item Value Reference Range Interpretation Comments Platelet Count (test code = 287 10*3/uL 130-400 777-3) [facility] HealthAutomated blood platelet mean volume qqjdbxpnuoi8536-60-10 04:50:00 Test Item Value Reference Range Interpretation Comments Mean Platelet Volume (test code = 10.2 fL 9.2-12.2 02497-9) [facility] HealthAutomated blood neutrophil count as percentage of total jtrakfklpc4302-81-98 04:50:00 Test Item Value Reference Range Interpretation Comments Neutrophils (%) (Auto) (test code = 67.2 % 50-80 770-8) [facility] HealthAutomated blood immature granulocyte count as percentage of total mzvibgpaeo5120-31-06 04:50:00 Test Item Value Reference Range Interpretation Comments Immature Granulocyte % (Auto) (test 0.50 % 0.0-0.43 code = 60408-1) [facility] HealthAutomated blood lymphocyte count as percentage of total nzhrijyuki3963-77-16 04:50:00 Test Item Value Reference Range Interpretation Comments Lymphocytes (%) (Auto) (test code = 20.4 % 20.0-45.0 736-9) [facility] HealthAutomated blood monocyte count as percentage of total leukocytes 2019-09-25 04:50:00 Test Item Value Reference Range Interpretation Comments Monocytes (%) (Auto) (test code = 8.0 % 2-10 5905-5) [facility] HealthAutomated blood eosinophil count as percentage of total csjiogzorh9498-36-76 04:50:00 Test Item Value Reference Range Interpretation Comments Eosinophils (%) (Auto) (test code = 3.1 % 0-6 713-8) [facility] HealthAutomated blood basophil count as percentage of total leukocytes 2019-09-25 04:50:00 Test Item Value Reference Range Interpretation Comments Basophils (%) (Auto) (test code = 0.8 % 0-3 706-2) [facility] HealthAutomated blood basophil count as percentage of total leukocytes 2019-09-25 04:50:00 Test Item Value Reference Range Interpretation Comments Basophils (%) (Auto) (test code = 0.8 % 706-2) Automated blood nucleated erythrocyte count as percentage of total leukocytes 2019-09-25 04:50:00 Test Item Value Reference Range Interpretation Comments Nucleated Red Blood Cells % (test code 0.0 % = 14771-8) Automated blood neutrophil count (number/volume)2019-09-25 04:50:00 Test Item Value Reference Range Interpretation Comments Neutrophils # (Auto) (test code = 5.2 10*3/uL 751-8) Automated blood immature granulocyte count as percentage of total leukocytes 2019-09-25 04:50:00 Test Item Value Reference Range Interpretation Comments Immature Granulocyte # (Auto) (test 0.0400 code = 93421-6) Automated blood lymphocyte count (number/volume)2019-09-25 04:50:00 Test Item Value Reference Range Interpretation Comments Lymphocytes # (Auto) (test code = 1.6 10*3/uL 731-0) Blood monocytes automated count (number/volume)2019-09-25 04:50:00 Test Item Value Reference Range Interpretation Comments Monocytes # (Auto) (test code = 0.6 10*3/uL 742-7) Automated blood eosinophil [id number] 04:50:00 Test Item Value Reference Range Interpretation Comments Eosinophils # (Auto) (test code = 0.2 10*3/uL 711-2) Automated blood basophil count (number/volume)2019-09-25 04:50:00 Test Item Value Reference Range Interpretation Comments Basophils # (Auto) (test code = 0.1 10*3/uL 704-7) Automated blood leukocyte count corrected for nucleated wctmbbegaycc9092-32-83 04:50:00 Test Item Value Reference Range Interpretation Comments Nucleated Red Blood Cells # (test code 0.000 = 61309-9) Blood erythrocyte sedimentation rate (ESR) measurement by photometricmethod (length/b8126-44-49 04:50:00 Test Item Value Reference Range Interpretation Comments Erythrocyte Sedimentation Rate (test 7 mm/h code = 60212-2) Sodium measurement (moles/volume)2019-09-25 04:50:00 Test Item Value Reference Range Interpretation Comments Sodium Level (test code = 55076-6) 139 mmol/L Serum or plasma potassium measurement [...] 27 mmol/L 2027-9) Serum or plasma anion [id number] 04:50:00 Test Item Value Reference Range Interpretation Comments Anion Gap (test code = 11784-4) 7.0 mmol/L Serum or plasma urea nitrogen measurement (mass/volume)2019-09-25 04:50:00 Test Item Value Reference Range Interpretation Comments Blood Urea Nitrogen (test code = 23.0 mg/dL 3094-0) Serum or plasma creatinine measurement (mass/volume)2019-09-25 04:50:00 Test Item Value Reference Range Interpretation Comments Creatinine (test code = 2160-0) 0.958 mg/dL GFR estimate [id number] 04:50:00 Test Item Value Reference Range Interpretation Comments Estimat Glomerular Filtration Rate 56 (test code = 24602-7) Serum or plasma glucose measurement (mass/volume)2019-09-25 04:50:00 Test Item Value Reference Range Interpretation Comments Glucose Level (test code = 2345-7) 102 mg/dL Serum or plasma calcium measurement (mass/volume)2019-09-25 04:50:00 Test Item Value Reference Range Interpretation Comments Calcium Level (test code = 25993-2) 9.5 mg/dL Serum or plasma creatine kinase MB measurement (mass/volume)2019-09-25 04:50:00 Test Item Value Reference Range Interpretation Comments Creatine Kinase MB (test code = 3.3 ng/mL 38469-6) Serum or plasma C reactive protein measurement [...] % Automated erythrocyte mean corpuscular volume (MCV) lxqpxbqdith4748-28-66 04:50:00 Test Item Value Reference Range Interpretation Comments Mean Corpuscular Volume (test code = 91.4 fL 787-2) Automated erythrocyte mean corpuscular hemoglobin (mass per erythrocyte) 2019-09-25 04:50:00 Test Item Value Reference Range Interpretation Comments Mean Corpuscular Hemoglobin (test 29.3 pg code = 785-6) Automated erythrocyte mean corpuscular hemoglobin concentration (MCHC) measurement ([id number] 04:50:00 Test Item Value Reference Range Interpretation Comments Mean Corpuscular Hemoglobin Concent 32.0 % (test code = 786-4) Automated erythrocyte distribution width xvrlk7965-58-68 04:50:00 Test Item Value Reference Range Interpretation Comments Red Cell Distribution Width (test code 13.0 % = 788-0) Automated blood platelet count (count/volume)2019-09-25 04:50:00 Test Item Value Reference Range Interpretation Comments Platelet Count (test code = 287 10*3/uL 777-3) Automated blood platelet mean volume oukmbxfxtgk4646-84-47 04:50:00 Test Item Value Reference Range Interpretation Comments Mean Platelet Volume (test code = 10.2 fL 34270-3) Automated blood neutrophil count as percentage of total xabvgwxlke6500-26-69 04:50:00 Test Item Value Reference Range Interpretation Comments Neutrophils (%) (Auto) (test code = 67.2 % 770-8) Automated blood immature granulocyte count as percentage of total leukocytes 2019-09-25 04:50:00 Test Item Value Reference Range Interpretation Comments Immature Granulocyte % (Auto) (test 0.50 % code = 33897-1) Automated blood lymphocyte count as percentage of total fcnpgartbv1806-87-02 04:50:00 Test Item Value Reference Range Interpretation Comments Lymphocytes (%) (Auto) (test code = 20.4 % 736-9) Automated blood monocyte count as percentage of total qgegzxddoh8837-84-00 04:50:00 Test Item Value Reference Range Interpretation Comments Monocytes (%) (Auto) (test code = 8.0 % 5905-5) Automated blood eosinophil count as percentage of total znqkmmynba6848-95-24 04:50:00 Test Item Value Reference Range Interpretation Comments Eosinophils (%) (Auto) (test code = 3.1 % 713-8) Serum or plasma magnesium measurement (mass/volume)2019-09-24 22:42:00 Test Item Value Reference Range Interpretation Comments Magnesium Level (test code = 2.3 mg/dL 1.6-2.6 72165-0) [facility]Serum or plasma total bilirubin measurement [...] (test code = 53 U/L 45-117 6768-6) [facility] HealthLactate ser/rklv2867-26-45 22:42:00 Test Item Value Reference Range Interpretation Comments Lactic Acid Level (test code = 1.0 mmol/L 0.4-1.9 2524-7) [facility] HealthSerum or plasma creatine kinase measurement (enzymatic activity/volume)2019-09-24 22:42:00 Test Item Value Reference Range Interpretation Comments Total Creatine Kinase (test code = 413 U/L -192 2157-6) [facility] total creatine kinase/creatine kinase MB isoenzyme activity urvvn3024-68-84 22:42:00 Test Item Value Reference Range Interpretation Comments Creatine Kinase MB Relative Index (test 0.5 % 0-4 code = 2158-4) [facility]roponin I wguvoetlq3211-01-43 22:42:00 Test Item Value Reference Range Interpretation Comments Troponin I (test code = 01421-4) 0.059 ng/mL 0.00-0.045 [facility] plasma brain natriuretic peptide (BNP) measurement 2019-09-24 22:42:00 Test Item Value Reference Range Interpretation Comments B-Type Natriuretic Peptide (test 40 pg/mL 0.0-100 code = 68438-1) [facility] plasma thyrotropin measurement by detection limit <=0.005 miu/l (units/unkiy2420-23-42 22:42:00 Test Item Value Reference Range Interpretation Comments Thyroid Stimulating Hormone 7.670 u[iU]/mL 0.358-3.74 (TSH) (test code = 11602-4) [facility] or plasma procalcitonin measurement (mass/volume)2019-09-24 22:42:00 Test Item Value Reference Range Interpretation Comments Procalcitonin (test code = < 0.05 ng/mL 0.0-0.5 49720-0) [facility] blood prothrombin nedw3106-20-74 22:42:00 Test Item Value Reference Range Interpretation Comments Prothrombin Time (test code = 5964-2) 11.4 s 10.2-12.9 [facility]R in Platelet poor plasma by Coagulation ughix5562-05-34 22:42:00 Test Item Value Reference Range Interpretation Comments Prothromb Time International Ratio 1.0 {INR} 0.9-1.1 (test code = 6301-6) [facility] thromboplastin time (PTT) in platelet poor plasma 2019-09-24 22:42:00 Test Item Value Reference Range Interpretation Comments Activated Partial Thromboplast Time 31.7 s 25.1-36.5 (test code = 01678-2) [facility]in [facility] FEU ycop0319-84-85 22:42:00 Test Item Value Reference Range Interpretation Comments D-Dimer (test code = 32165-9) 262 ng/mL{FEU} 0.00-500 [facility] blood prothrombin hfms0229-87-43 22:42:00 Test Item Value Reference Range Interpretation Comments Prothrombin Time (test code = 5964-2) 11.4 s INR in Platelet poor plasma by Coagulation xudju2661-27-03 22:42:00 Test Item Value Reference Range Interpretation Comments Prothromb Time International Ratio 1.0 {INR} (test code = 6301-6) Partial thromboplastin time (PTT) in platelet poor lnptiu0164-32-98 22:42:00 Test Item Value Reference Range Interpretation Comments Activated Partial Thromboplast Time 31.7 s (test code = 38500-8) Fibrin D-dimer FEU eurq2028-75-09 22:42:00 Test Item Value Reference Range Interpretation Comments D-Dimer (test code = 35182-2) 262 ng/mL{FEU} Serum or plasma magnesium measurement (mass/volume)2019-09-24 22:42:00 Test Item Value Reference Range Interpretation Comments Magnesium Level (test code = 2.3 mg/dL 46558-7) Serum or plasma total bilirubin measurement (mass/volume)2019-09-24 22:42:00 Test Item Value Reference Range Interpretation Comments Total Bilirubin (test code = 0.4 mg/dL 1974-2) Serum or plasma aspartate aminotransferase measurement (enzymatic [...] (test code = 53 U/L 6768-6) Lactate ser/uose7743-34-01 22:42:00 Test Item Value Reference Range Interpretation Comments Lactic Acid Level (test code = 1.0 mmol/L 2524-7) Serum or plasma creatine kinase measurement (enzymatic activity/volume) 2019-09-24 22:42:00 Test Item Value Reference Range Interpretation Comments Total Creatine Kinase (test code = 413 U/L 2157-6) Serum or plasma total creatine kinase/creatine kinase MB isoenzyme activity mddna9283-88-79 22:42:00 Test Item Value Reference Range Interpretation Comments Creatine Kinase MB Relative Index (test 0.5 % code = 2158-4) Troponin I cdjewsmrj6037-70-78 22:42:00 Test Item Value Reference Range Interpretation Comments Troponin I (test code = 63287-7) 0.059 ng/mL Serum or plasma brain natriuretic peptide (BNP) kflgtpxcysx2025-80-53 22:42:00 Test Item Value Reference Range Interpretation Comments B-Type Natriuretic Peptide (test 40 pg/mL code = 87144-7) Serum or plasma thyrotropin measurement by detection limit <=0.005 miu/l (units/ihumi5597-53-17 22:42:00 Test Item Value Reference Range Interpretation Comments Thyroid Stimulating Hormone 7.670 u[iU]/mL (TSH) (test code = 72539-3) Serum or plasma procalcitonin measurement (mass/volume)2019-09-24 22:42:00 Test Item Value Reference Range Interpretation Comments Procalcitonin (test code = < 0.05 ng/mL 68391-6) Automated bacteria count in urine sediment (number/area)2019-09-24 22:33:00 Test Item Value Reference Range Interpretation Comments Urine Bacteria (test None /[HPF] See_Comment [Autom ated message] code = 55110-7) The system [employer] [facility] generated this result transmitted ref erence range: 0-+/-. T he reference range was not used to int erpret this result as normal/abnormal . [facility] HealthAutomated mucus count in urine sediment (number/area)2019-09-24 22:33:00 Test Item Value Reference Range Interpretation Comments Urine Mucus (test +/- /[LPF] See_Comment [Automate d message] The code = 20329-7) system which generated this result tra nsmitted reference range : 0-1+. The reference r john was not used to int erpret this result as normal/abnormal . [facility] HealthAutomated urine yeast count (number/area)2019-09-24 22:33:00 Test Item Value Reference Range Interpretation Comments Urine Yeast (Budding) (test code Rare /[HPF] None Seen = 95863-9) [facility] comment 22:33:00 Test Item Value Reference Range Interpretation Comments Urine Culture Indicated Yes, Criteria Met (test code = 8264-4) [facility] HealthBacterial urine bwkkjek9954-15-27 22:33:00 Test Item Value Reference Range Interpretation Comments Urine Culture (test No growth in 18-24 code = 630-4) hours [facility] HealthAutomated urine color mksyjsqtqxyck0762-07-51 22:33:00 Test Item Value Reference Range Interpretation Comments Urine Color (test code = 10384-5) Yellow Yellow [facility] HealthClarity in Urine by Refractometry ucawjiuhf1310-98-33 22:33:00 Test Item Value Reference Range Interpretation Comments Urine Appearance (test code = 24225-4) Clear Clear [facility]Urine pH measurement by test skmmx1175-61-96 22:33:00 Test Item Value Reference Range Interpretation Comments Urine pH (test code = 5803-2) 7.5 [pH] 5.0-8.0 [facility] HealthAutomated urine specific gravity by nwhxppqnqactv7331-14-99 22:33:00 Test Item Value Reference Range Interpretation Comments Urine Specific Grawn (test code = 1.009 1.005-1.030 36831-8) [facility]Automated urine protein lpuupmyrjsz3307-52-64 22:33:00 Test Item Value Reference Range Interpretation Comments Urine Protein (test code = Negative mg/dL Negative 74186039) [facility]Automated urine glucose cuaxizftq9635-19-14 22:33:00 Test Item Value Reference Range Interpretation Comments Urine Glucose (UA) (test code Negative mg/dL Negative = 82373-6) [facility] HealthUrine ketones detection by automated test urfkr2929-17-02 22:33:00 Test Item Value Reference Range Interpretation Comments Urine Ketones (test code = Negative mg/dL Negative 63781-9) [facility] HealthUrine erythrocytes detection by automated sowqoa4489-43-26 22:33:00 Test Item Value Reference Range Interpretation Comments Urine Occult Blood (test code = Negative Negative 84295-3) [facility]Automated urine nitrite asgalabpuff5390-73-05 22:33:00 Test Item Value Reference Range Interpretation Comments Urine Nitrite (test code = 75441-0) Negative Negative [facility] HealthUrine total bilirubin detection by automated test ctsqb4820-48-88 22:33:00 Test Item Value Reference Range Interpretation Comments Urine Bilirubin (test code = Negative Negative 70047-2) [facility] HealthAutomated urine urobilinogen tofagegvqwj4357-44-32 22:33:00 Test Item Value Reference Range Interpretation Comments Urine Urobilinogen (test code = Normal mg/dL Normal 48699128) [facility] HealthUrine leukocytes detection by automated ldofml3723-31-17 22:33:00 Test Item Value Reference Range Interpretation Comments Urine Leukocyte Esterase (test 250 {Marianna}/uL Negative code = 99654-4) [facility] HealthAutomated erythrocytes count in urine sediment (number/area) 2019-09-24 22:33:00 Test Item Value Reference Range Interpretation Comments Urine RBC (test code = 43018-4) 0-2 /[HPF] 0-2 [facility] HealthAutomated leukocytes count in urine sediment (number/area) 2019-09-24 22:33:00 Test Item Value Reference Range Interpretation Comments Urine WBC (test code = 84767-1) 10-20 /[HPF] 0-2 [facility] HealthAutomated squamous epithelial cells count in urine sediment (number/area)2019-09-24 22:33:00 Test Item Value Reference Range Interpretation Comments Urine Squamous Rare /[LPF] See_Comment [Automated m essage] Epithelial Cells The system which (test code = 39835-7) genera danielle this result transmitted ref erence range: 0 - 1+. The reference range was not used to int erpret this result as normal/abnormal . [facility] HealthAutomated urine sediment crystal count (number/area)2019-09-24 22:33:00 Test Item Value Reference Range Interpretation Comments Urine Other Crystals (test +/- Rare /[LPF] None Seen code = 84908-5) [facility]Automated urine color vavxgkteyoixi0504-58-52 22:33:00 Test Item Value Reference Range Interpretation Comments Urine Color (test code = 82966-9) Yellow Clarity in Urine by Refractometry cykqsxpdl9459-51-96 22:33:00 Test Item Value Reference Range Interpretation Comments Urine Appearance (test code = 00530-2) Clear Urine pH measurement by test lmlyc4492-73-17 22:33:00 Test Item Value Reference Range Interpretation Comments Urine pH (test code = 5803-2) 7.5 [pH] Automated urine specific gravity by mrwtjyscyhjkq8730-62-25 22:33:00 Test Item Value Reference Range Interpretation Comments Urine Specific Grawn (test code = 1.009 90182-0) Automated urine protein vgksywtxnjj2014-46-75 22:33:00 Test Item Value Reference Range Interpretation Comments Urine Protein (test code = Negative mg/dL 21610309) Automated urine glucose kxqugoejx0961-70-32 22:33:00 Test Item Value Reference Range Interpretation Comments Urine Glucose (UA) (test code Negative mg/dL = 89514-2) Urine ketones detection by automated test yammr8762-21-50 22:33:00 Test Item Value Reference Range Interpretation Comments Urine Ketones (test code = Negative mg/dL 68992-2) Urine erythrocytes detection by automated zxwdum9168-14-87 22:33:00 Test Item Value Reference Range Interpretation Comments Urine Occult Blood (test code = Negative 23039-8) Automated urine nitrite mvketvdwycp4160-29-27 22:33:00 Test Item Value Reference Range Interpretation Comments Urine Nitrite (test code = 95897-4) Negative Urine total bilirubin detection by automated test mhkcj4397-67-43 22:33:00 Test Item Value Reference Range Interpretation Comments Urine Bilirubin (test code = Negative 42996-4) Automated urine urobilinogen mpilbwlvxsq7147-82-85 22:33:00 Test Item Value Reference Range Interpretation Comments Urine Urobilinogen (test code = Normal mg/dL 52967652) Urine leukocytes detection by automated qgkhee4946-32-94 22:33:00 Test Item Value Reference Range Interpretation Comments Urine Leukocyte Esterase (test 250 {Marianna}/uL code = 65321-8) Automated erythrocytes count in urine sediment (number/area)2019-09-24 22:33:00 Test Item Value Reference Range Interpretation Comments Urine RBC (test code = 93338-7) 0-2 /[HPF] Automated leukocytes count in urine sediment (number/area)2019-09-24 22:33:00 Test Item Value Reference Range Interpretation Comments Urine WBC (test code = 26234-3) 10-20 /[HPF] Automated squamous epithelial cells count in urine sediment (number/area) 2019-09-24 22:33:00 Test Item Value Reference Range Interpretation Comments Urine Squamous Epithelial Cells Rare /[LPF] (test code = 67401-6) Automated urine sediment crystal count (number/area)2019-09-24 22:33:00 Test Item Value Reference Range Interpretation Comments Urine Other Crystals (test +/- Rare /[LPF] code = 80442-3) Automated bacteria count in urine sediment (number/area)2019-09-24 22:33:00 Test Item Value Reference Range Interpretation Comments Urine Bacteria (test code = None /[HPF] 64858-7) Automated mucus count in urine sediment (number/area)2019-09-24 22:33:00 Test Item Value Reference Range Interpretation Comments Urine Mucus (test code = 50344-3) +/- /[LPF] Automated urine yeast count (number/area)2019-09-24 22:33:00 Test Item Value Reference Range Interpretation Comments Urine Yeast (Budding) (test code Rare /[HPF] = 05078-5) Service comment 759465-70-54 22:33:00 Test Item Value Reference Range Interpretation Comments Urine Culture Indicated Yes, Criteria Met (test code = 8264-4) Bacterial urine wgqytaw4864-06-48 22:33:00 Test Item Value Reference Range Interpretation Comments Urine Culture (test No growth in 18-24 code = 630-4) hours BASIC METABOLIC WMRAO7731-82-29 02:06:00 Test Item Value Reference Range Interpretation [...] CALCIUM (test code = MG/DL 8.7-9.7 CA) USMNPYHHA4082-47-24 02:06:00 Test Item Value Reference Range Interpretation Comments MAGNESIUM (test code = MAG) MG/DL 1.6-2.3 BASIC METABOLIC [id number] 02:06:00 Test Item Value Reference Range Interpretation [...] CALCIUM (test code = MG/DL 8.7-9.7 CA) [id number] 02:06:00 Test Item Value Reference Range Interpretation Comments MAGNESIUM (test code = MAG) MG/DL 1.6-2.3 BASIC METABOLIC [id number] 02:06:00 Test Item Value Reference Range Interpretation [...] code = 10.3 MG/DL 8.4-10.2 H CA) [id number] 02:06:00 Test Item Value Reference Range Interpretation Comments MAGNESIUM (test code = MAG) MG/DL 1.6-2.3 BASIC METABOLIC [id number] 02:06:00 Test Item Value Reference Range Interpretation [...] code = 10.3 MG/DL 8.4-10.2 H CA) [id number] 02:06:00 Test Item Value Reference Range Interpretation Comments MAGNESIUM (test code = MAG) 1.7 MG/DL 1.6-2.3 BASIC METABOLIC [id number] 02:03:00 Test Item Value Reference Range Interpretation [...] CALCIUM (test code = CA) MG/DL 8.7-9.7 [id number] 02:03:00 Test Item Value Reference Range Interpretation Comments MAGNESIUM (test code = MAG) MG/DL 1.6-2.3 CBC W/AUTO [id number] 01:51:00 Test Item Value Reference Range Interpretation [...] K/mm3 0.0-0.1 N NRBC#) - XR CHEST [id number] 11:06:00 Patient Name: DEBI GARRETT Unit No: [id number] EXAMS: CPT CODE: [id number] XR CHEST 1V 22458 Site ID: [id number] HISTORY: Pneumothorax COMPARISON: Chest [...] [id number] Orig Print D/T: S: 08/10/2019 (1110) [facility] NAME: DEBI GARRETT [address] PHYS: Abdul[place] [address] : 1935 AGE: 84 SEX: F LOC: Z.SI05 A PHONE #: [phone] EXAM DATE: 08/10/2019 STATUS: ADM IN FAX #: [phone] RADIOLOGY NO: PAGE 1 Signed ReportBASIC METABOLIC [id number] 05:07:00 Test Item Value Reference Range Interpretation [...] code = 10.6 MG/DL 8.4-10.2 H CA) [id number] 05:07:00 Test Item Value Reference Range Interpretation Comments PHOSPHOROUS (test code = PHOS) 3.3 MG/DL 2.5-4.5 N [id number] 05:07:00 Test Item Value Reference Range Interpretation Comments MAGNESIUM (test code = MAG) 2.2 MG/DL 1.6-2.3 BASIC METABOLIC [id number] 05:04:00 Test Item Value Reference Range Interpretation [...] CALCIUM (test code = MG/DL 8.7-9.7 CA) [id number] 05:04:00 Test Item Value Reference Range Interpretation Comments PHOSPHOROUS (test code = PHOS) MG/DL 2.5-4.5 [id number] 05:04:00 Test Item Value Reference Range Interpretation Comments MAGNESIUM (test code = MAG) MG/DL 1.6-2.3 BASIC METABOLIC [id number] 05:01:00 Test Item Value Reference Range Interpretation [...] CALCIUM (test code = CA) MG/DL 8.7-9.7 [id number] 05:01:00 Test Item Value Reference Range Interpretation Comments PHOSPHOROUS (test code = PHOS) MG/DL 2.5-4.5 [id number] 05:01:00 Test Item Value Reference Range Interpretation Comments MAGNESIUM (test code = MAG) MG/DL 1.6-2.3 CBC W/AUTO [id number] 04:48:00 Test Item Value Reference Range Interpretation [...] 0.00 K/mm3 0.0-0.1 N NRBC#) BASIC METABOLIC [id number] 23:31:00 Test Item Value Reference Range Interpretation [...] code = 10.1 MG/DL 8.4-10.2 N CA) [id number] 23:31:00 Test Item Value Reference Range Interpretation Comments MAGNESIUM (test code = MAG) 1.8 MG/DL 1.6-2.3 N BASIC METABOLIC [id number] 23:28:00 Test Item Value Reference Range Interpretation [...] CALCIUM (test code = MG/DL 8.7-9.7 CA) [id number] 23:28:00 Test Item Value Reference Range Interpretation Comments MAGNESIUM (test code = MAG) MG/DL 1.6-2.3 BASIC METABOLIC [id number] 23:25:00 Test Item Value Reference Range Interpretation [...] CALCIUM (test code = CA) MG/DL 8.7-9.7 [id number] 23:25:00 Test Item Value Reference Range Interpretation Comments MAGNESIUM (test code = MAG) MG/DL 1.6-2.3 BASIC METABOLIC [id number] 22:21:00 Test Item Value Reference Range Interpretation [...] code = 9.3 MG/DL 8.4-10.2 N CA) [id number] 22:21:00 Test Item Value Reference Range Interpretation Comments MAGNESIUM (test code = MAG) 1.6 MG/DL 1.6-2.3 N BASIC METABOLIC [id number] 21:36:00 Test Item Value Reference Range Interpretation [...] code = CA) 9.3 MG/DL 8.4-10.2 N [id number] 21:36:00 Test Item Value Reference Range Interpretation Comments MAGNESIUM (test code = MAG) 1.6 MG/DL 1.6-2.3 N BASIC METABOLIC [id number] 21:35:00 Test Item Value Reference Range Interpretation [...] CALCIUM (test code = CA) MG/DL 8.7-9.7 [id number] 21:35:00 Test Item Value Reference Range Interpretation Comments MAGNESIUM (test code = MAG) MG/DL 1.6-2.3 CBC W/AUTO [id number] 21:25:00 Test Item Value Reference Range Interpretation [...] 0.0-0.1 N NRBC#) - MRI BRAIN W/O [id number] 11:43:00 Patient Name: DEBI GARRETT Unit No: [id number] EXAMS: CPT CODE: [id number] MRI BRAIN W/O CONTRAST 63727 CLINICAL INFORMATION: Ataxia. Right internal carotid artery [...] CC: Poli Aaron; Gonzalo Kent MD Technologist: Wendy Wei (RT)(R) Transcrpt Date/Tm/Trnsp: 08/09/2019 (1143) t.[email or web address].AGV Orig Print D/T: S: 08/09/2019 (1146) [facility] NAME: DEBI GARRETT [address] PHYS: [place] [address] : 1935 AGE: 84 SEX: F LOC: Z.SI05 A PHONE #: EXAM DATE: 08/09/2019 STATUS: ADM IN FAX #: [phone] RADIOLOGY NO: PAGE 1 Signed ReportURINALYSIS [id number] 22:47:00 Test Item Value Reference Range Interpretation [...] UACULT) Criteria SOURCE OF URINE: STRAIGHT CATHETERURINALYSIS [id number] 22:45:00 Test Item Value Reference Range Interpretation [...] UACULT) SOURCE OF URINE: STRAIGHT CATHETERBASIC METABOLIC [id number] 13:12:00 Test Item Value Reference Range Interpretation [...] code = 9.8 MG/DL 8.4-10.2 N CA) [id number] 13:12:00 Test Item Value Reference Range Interpretation Comments PHOSPHOROUS (test code = PHOS) 2.6 MG/DL 2.5-4.5 N [id number] 13:12:00 Test Item Value Reference Range Interpretation Comments MAGNESIUM (test code = MAG) 2.3 MG/DL 1.6-2.3 N T3,T4 [id number] 13:12:00 Test Item Value Reference Range Interpretation Comments T3 UPTAKE (test code = T3UP) 33.3 % UP 23.5-40.5 N T4 (THYROXINE) (test code = T4) 13.10 UG/DL 5.53-11.0 H T7 (FREE THYROXINE INDEX) (test 4.4 1.2-4.3 H code = T7) THYROID STIMULATING [id number] 13:12:00 Test Item Value Reference Range Interpretation Comments THYROID STIMULATING 3.590 MIU/L 0.465-4.68 N Please b e aware that HORMONE (test code = bias re sults for TSH TSH) may occur forpa tient who are taking Biotin suppleme nts. T4 [id number] 12:43:00 Test Item Value Reference Range Interpretation Comments T4 FREE (test code = T4F) 2.1 NG/DL 0.78-2.19 N BASIC METABOLIC [id number] 12:41:00 Test Item Value Reference Range Interpretation [...] code = 9.8 MG/DL 8.4-10.2 N CA) [id number] 12:41:00 Test Item Value Reference Range Interpretation Comments PHOSPHOROUS (test code = PHOS) 2.6 MG/DL 2.5-4.5 N [id number] 12:41:00 Test Item Value Reference Range Interpretation Comments MAGNESIUM (test code = MAG) 2.3 MG/DL 1.6-2.3 N T3,T4 [id number] 12:41:00 Test Item Value Reference Range Interpretation Comments T3 UPTAKE (test code = T3UP) 33.3 % UP 23.5-40.5 N T4 (THYROXINE) (test code = T4) 13.10 UG/DL 5.53-11.0 H T7 (FREE THYROXINE INDEX) (test 4.4 1.2-4.3 H code = T7) THYROID STIMULATING [id number] 12:41:00 Test Item Value Reference Range Interpretation Comments THYROID STIMULATING HORMONE (test code MIU/L 0.465-4.68 = TSH) CBC W/AUTO [id number] 12:39:00 Test Item Value Reference Range Interpretation [...] 0.00 K/mm3 0.0-0.1 N NRBC#) BASIC METABOLIC [id number] 12:26:00 Test Item Value Reference Range Interpretation [...] code = 9.8 MG/DL 8.4-10.2 N CA) [id number] 12:26:00 Test Item Value Reference Range Interpretation Comments PHOSPHOROUS (test code = PHOS) 2.6 MG/DL 2.5-4.5 N [id number] 12:26:00 Test Item Value Reference Range Interpretation Comments MAGNESIUM (test code = MAG) 2.3 MG/DL 1.6-2.3 N T3,T4 [id number] 12:26:00 Test Item Value Reference Range Interpretation Comments T3 UPTAKE (test code = T3UP) % UP 23.5-40.5 T4 (THYROXINE) (test code = T4) UG/DL 5.53-11.0 T7 (FREE THYROXINE INDEX) (test code = 1.2-4.3 T7) THYROID STIMULATING [id number] 12:26:00 Test Item Value Reference Range Interpretation Comments THYROID STIMULATING HORMONE (test code MIU/L 0.465-4.68 = TSH) BASIC METABOLIC [id number] 12:25:00 Test Item Value Reference Range Interpretation [...] CALCIUM (test code = MG/DL 8.7-9.7 CA) [id number] 12:25:00 Test Item Value Reference Range Interpretation Comments PHOSPHOROUS (test code = PHOS) MG/DL 2.5-4.5 [id number] 12:25:00 Test Item Value Reference Range Interpretation Comments MAGNESIUM (test code = MAG) MG/DL 1.6-2.3 T3,T4 [id number] 12:25:00 Test Item Value Reference Range Interpretation Comments T3 UPTAKE (test code = T3UP) % UP 23.5-40.5 T4 (THYROXINE) (test code = T4) UG/DL 5.53-11.0 T7 (FREE THYROXINE INDEX) (test code = 1.2-4.3 T7) THYROID STIMULATING [id number] 12:25:00 Test Item Value Reference Range Interpretation Comments THYROID STIMULATING HORMONE (test code MIU/L 0.465-4.68 = TSH) BASIC METABOLIC [id number] 12:25:00 Test Item Value Reference Range Interpretation [...] CALCIUM (test code = MG/DL 8.7-9.7 CA) [id number] 12:25:00 Test Item Value Reference Range Interpretation Comments PHOSPHOROUS (test code = PHOS) MG/DL 2.5-4.5 [id number] 12:25:00 Test Item Value Reference Range Interpretation Comments MAGNESIUM (test code = MAG) MG/DL 1.6-2.3 T3,T4 [id number] 12:25:00 Test Item Value Reference Range Interpretation Comments T3 UPTAKE (test code = T3UP) % UP 23.5-40.5 T4 (THYROXINE) (test code = T4) UG/DL 5.53-11.0 T7 (FREE THYROXINE INDEX) (test code = 1.2-4.3 T7) THYROID STIMULATING [id number] 12:25:00 Test Item Value Reference Range Interpretation Comments THYROID STIMULATING HORMONE (test code MIU/L 0.465-4.68 = TSH) BASIC METABOLIC [id number] 12:25:00 Test Item Value Reference Range Interpretation [...] CALCIUM (test code = MG/DL 8.7-9.7 CA) [id number] 12:25:00 Test Item Value Reference Range Interpretation Comments PHOSPHOROUS (test code = PHOS) MG/DL 2.5-4.5 [id number] 12:25:00 Test Item Value Reference Range Interpretation Comments MAGNESIUM (test code = MAG) MG/DL 1.6-2.3 T3,T4 [id number] 12:25:00 Test Item Value Reference Range Interpretation Comments T3 UPTAKE (test code = T3UP) % UP 23.5-40.5 T4 (THYROXINE) (test code = T4) UG/DL 5.53-11.0 T7 (FREE THYROXINE INDEX) (test code = 1.2-4.3 T7) THYROID STIMULATING [id number] 12:25:00 Test Item Value Reference Range Interpretation Comments THYROID STIMULATING HORMONE (test code MIU/L 0.465-4.68 = TSH) BASIC METABOLIC [id number] 12:23:00 Test Item Value Reference Range Interpretation [...] CALCIUM (test code = CA) MG/DL 8.7-9.7 [id number] 12:23:00 Test Item Value Reference Range Interpretation Comments PHOSPHOROUS (test code = PHOS) MG/DL 2.5-4.5 [id number] 12:23:00 Test Item Value Reference Range Interpretation Comments MAGNESIUM (test code = MAG) MG/DL 1.6-2.3 T3,T4 [id number] 12:23:00 Test Item Value Reference Range Interpretation Comments T3 UPTAKE (test code = T3UP) % UP 23.5-40.5 T4 (THYROXINE) (test code = T4) UG/DL 5.53-11.0 T7 (FREE THYROXINE INDEX) (test code = 1.2-4.3 T7) THYROID STIMULATING [id number] 12:23:00 Test Item Value Reference Range Interpretation Comments THYROID STIMULATING HORMONE (test code MIU/L 0.465-4.68 = TSH) BASIC METABOLIC [id number] 12:22:00 Test Item Value Reference Range Interpretation [...] CALCIUM (test code = CA) MG/DL 8.7-9.7 [id number] 12:22:00 Test Item Value Reference Range Interpretation Comments PHOSPHOROUS (test code = PHOS) MG/DL 2.5-4.5 [id number] 12:22:00 Test Item Value Reference Range Interpretation Comments MAGNESIUM (test code = MAG) MG/DL 1.6-2.3 T3,T4 [id number] 12:22:00 Test Item Value Reference Range Interpretation Comments T3 UPTAKE (test code = T3UP) % UP 23.5-40.5 T4 (THYROXINE) (test code = T4) UG/DL 5.53-11.0 T7 (FREE THYROXINE INDEX) (test code = 1.2-4.3 T7) THYROID STIMULATING [id number] 12:22:00 Test Item Value Reference Range Interpretation Comments THYROID STIMULATING HORMONE (test code MIU/L 0.465-4.68 = TSH) - XR HIP W/PEL UNI 2+V [id number] 11:43:00 Patient Name: DEBI GARRETT Unit No: [id number] EXAMS: CPT CODE: [id number] XR HIP W/PEL UNI 2+V RT 18828 EXAM: - XR HIP W/PEL UNI 2+V [...] Guevara MD CC: Poli Aaron; Jana Acosta CUSTOMER SERVICES MANAGER Technologist: Britney Myers, RT (R) Transcrpt Date/Tm/Trnsp: 08/08/2019 (1143) [email or web address] Orig Print D/T: S: 08/08/2019 (1147) [facility] NAME: DEBI GARRETT [address] PHYS: [place] [address] : 1935 AGE: 84 SEX: F LOC: Z.SI05 A PHONE #: [phone] EXAM DATE: 08/08/2019 STATUS: ADM IN FAX #: [phone] RADIOLOGY NO: PAGE 1 Signed Report- CT HEAD/BRAIN W/O [id number] 11:40:00 Patient Name: DEBI GARRETT Unit No: [id number] EXAMS: CPT CODE: [id number] CT HEAD/BRAIN W/O CONT 08174 EXAMINATION: - CT HEAD/BRAIN W/O CONT. LOCATION: [...] Ever Finney CC: Poli Aaron; Jana Acosta CUSTOMER SERVICES MANAGER Technologist: Filipe Perez, RT(R) CTDI: DLP: Trnscrpt: 08/08/2019 (1140) [email or web address].[email or web address] [facility] NAME: DEBI GARRETTmond PHYS: [place] [address] : 1935 AGE: 84 SEX: F LOC: Z.SI05 A PHONE #: [phone] EXAM DATE: 08/08/2019 STATUS: ADM IN FAX #: [phone] RAD #: D/C DT PAGE 1 Signed Report Patient Name: DEBI GARRETT Unit No: [id number] EXAMS: CPT CODE: [id number] CT HEAD/BRAIN W/O CONT 13395 (Continued) Orig Print D/T: S: 08/08/2019 (1143) [facility] NAME: DEBI GARRETT PHYS: [place] [address] : 1935 AGE: 84 SEX: F LOC: Z.SI05 A PHONE #: [phone] EXAM DATE: 08/08/2019 STATUS: ADM IN FAX #: [phone] RAD #: D/C DT PAGE 2 Signed Report- XR CHEST 1V 2019-08-08 08:51:00 Patient Name: DEBI GARRETT Unit No: [id number] EXAMS: CPT CODE: [id number] XR CHEST 1V 86584 EXAM: - XR CHEST 1V Location code:B2 [...] infiltrate. at 0851 Reported and signed by: MD Tyler Wright C: Poli Aaron; Jana Acosta NP Technologist: RT Sami(R) Transcrpt Date/Tm/Trnsp: 08/08/2019 (0851) [email or web address] Orig Print D/T: S: 08/08/2019 (0854) [facility] NAME: DEBI GARRETT [address] PHYS: [place] [address] : 1935 AGE: 84 SEX: F LOC: Z.SI05 A PHONE #: [phone] EXAM DATE: 08/08/2019 STATUS: ADM IN FAX #: [phone] RADIOLOGY NO: PAGE 1 Signed Report ARTERY,[id number] 12:46:00 RUN DATE: 08/07/19 [place] - LAB PAGE 1 RUN TIME: 1246 Specimen Inquiry RUN USER: INTERFACE PATIENT: DEBI GARRETT LOC: MYLES U #: [id number] AGE/SX: 84/F ROOM: LEESA RE08/06/19REG DR: Robi Schroeder MD : 37 BED: A DIS: STATUS: ADM IN TLOC: SPEC #: [id number] RECD: 08/06/19 STATUS: SOUT REQ #: [id number] KELLE: 08/06/[address]: Robi Schroeder MD ENTERED: 08/06/19 SP TYPE: ARTERY, PL OTHR DR: Self Referred Mirella Francis MD, Patricia Q MD Pepper, Gregory S MDORDERED: DECAL, SURG PATH LVL 3, SURG PATH LVL 4 CODES: [id number] - PLAQUE, NOS [id number] - ARTERY, NOS [id number] 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 ARTERY, NOS - RT CAROTID PLAQUE B. LYMPH NODE, NOS - RT CERVICAL LYMPH NODE CONTINUED ON NEXT PAGE -RUN DATE: 08/07/19 [place] - LAB PAGE 2 RUN TIME: 1246 Specimen Inquiry RUN USER: INTERFACE SPEC #: [id number] PATIENT: DEBI GARRETT #[id number] (Continued) CLINICAL HISTORY S/P RIGHT CEA CPT CODES CPT CODE(S): 88191 , 07455 , 28596 , , , , FINAL DIAGNOSIS A. [...] 0.6 and 1 cm. The smaller two no miguel angel are bisected, one inked and submitted as B1 and the largest node is serially sectioned and submitted as B2. /tc/nr MICROSCOPIC DESCRIPTION A. Right carotid plaque. Ovoid sclerotic nodule with densestromal calcification. No atypical features. B. Right cervical lymph node. Benign lymph node with variable mild to moderate sinus histiocytosis and minimal paracortical reactive change. No atypical features. /chidi Signed SIGNATURE ON FILE BentRaffi boles 08/07/19 1246 END OF REPORT - XR CHEST [id number] 10:56:00 Patient Name: DEBI GARRETT Unit No: [id number] EXAMS: CPT CODE: [id number] XR CHEST 1V 51421 EXAMINATION: - XR CHEST 1V. LOCATION: B2. HISTORY: post op. COMPARISON: Radiograph dated 08/06/2019. TECHNIQUE: Single AP view of the chest was obtained. FINDINGS: Left subclavian line and right neck surgical drain are unchanged in position. The heart is normal in size. Calcifications are seen at theaortic arch. There has been interval development of [...] t.JWR.PR7 Orig Print D/T: S: 08/07/2019 (1100) [facility] NAME: DEBI GARRETT [address] PHYS: [place] [address] : 1935 AGE: 84 SEX: F LOC: Z.SI01 A PHONE #: [phone] EXAM DATE: 08/07/2019 STATUS: ADM INFAX #: [phone] RADIOLOGY NO: PAGE 1 Signed Report BASIC METABOLIC [id number] 06:56:00 Test Item Value Reference Range Interpretation [...] CA) CBN DRAW LEFT TUBES FOR NURSE [id number] 06:56:00 Test Item Value Reference Range Interpretation Comments MAGNESIUM (test code = MAG) 1.8 MG/DL 1.6-2.3 N CBN DRAW LEFT TUBES FOR NURSE ROSIcount.comBASIC METABOLIC [id number] 06:55:00 Test Item Value Reference Range Interpretation [...] CA) CBN DRAW LEFT TUBES FOR NURSE [id number] 06:55:00 Test Item Value Reference Range Interpretation Comments MAGNESIUM (test code = MAG) MG/DL 1.6-2.3 CBN DRAW LEFT TUBES FOR NURSE ROSIEBASIC METABOLIC [id number] 06:53:00 Test Item Value Reference Range Interpretation [...] 8.7-9.7 CBN DRAW LEFT TUBES FOR NURSE [id number] 06:53:00 Test Item Value Reference Range Interpretation Comments MAGNESIUM (test code = MAG) MG/DL 1.6-2.3 CBN DRAW LEFT TUBES FOR NURSE ROSIECBC W/AUTO [id number] 06:42:00 Test Item Value Reference Range Interpretation [...] DRAW LEFT TUBES FOR NURSE ROSIEBASIC METABOLIC [id number] 13:33:00 Test Item Value Reference Range Interpretation [...] code = 10.0 MG/DL 8.4-10.2 N CA) [id number] 13:33:00 Test Item Value Reference Range Interpretation Comments MAGNESIUM (test code = MAG) 1.8 MG/DL 1.6-2.3 N BASIC METABOLIC [id number] 13:32:00 Test Item Value Reference Range Interpretation [...] CALCIUM (test code = MG/DL 8.7-9.7 CA) [id number] 13:32:00 Test Item Value Reference Range Interpretation Comments MAGNESIUM (test code = MAG) MG/DL 1.6-2.3 BASIC METABOLIC [id number] 13:30:00 Test Item Value Reference Range Interpretation [...] CALCIUM (test code = CA) MG/DL 8.7-9.7 [id number] 13:30:00 Test Item Value Reference Range Interpretation Comments MAGNESIUM (test code = MAG) MG/DL 1.6-2.3 BASIC METABOLIC [id number] 13:29:00 Test Item Value Reference Range Interpretation [...] CALCIUM (test code = CA) MG/DL 8.7-9.7 [id number] 13:29:00 Test Item Value Reference Range Interpretation Comments MAGNESIUM (test code = MAG) MG/DL 1.6-2.3 CBC W/AUTO [id number] 13:19:00 Test Item Value Reference Range Interpretation [...] K/mm3 0.0-0.1 N NRBC#) - XR CHEST [id number] 13:05:00 Patient Name: DEBI GARRETT Unit No: [id number] EXAMS: CPT CODE: [id number] XR CHEST 1V 75792 Site ID: [id number] HISTORY: Postoperative, right CEA [...] Technologist: RT Sami(R) Transcrpt Date/Tm/Trnsp: 08/06/2019 (1305) t.[email or web address].AJP6 Orig Print D/T: S: 08/06/2019 (1308) [facility] NAME: DEBI GARRETT [address] PHYS: [place] [address] : 1935 AGE: 84 SEX: F LOC: Z.SI01 A PHONE #: [phone] EXAM DATE: 08/06/2019 STATUS: ADM IN FAX #: [phone] RADIOLOGY NO: PAGE 1 Signed ReportARTERIAL BLOOD [id number] 13:00:00 Test Item Value Reference Range Interpretation [...] = 50 % COHBGFFIO2) Novel Coronavirus 2018 [id number] 08:07:00 Test Item Value Reference Range Interpretation Comments Novel Coronavirus 2018 Inhouse (test Negative Negative code = COVNONPUI) Novel Coronavirus 2019 [id number] 08:06:00 Test Item Value Reference Range Interpretation Comments Novel Coronavirus 2018 Inhouse (test Negative Negative code = COVNONPUI) HIV 12 AB [id number] 14:28:00 Test Item Value Reference Range Interpretation Comments HIV 1 2 COMBO AG/AB SCREEN AB/AG NON REACTIVE NONREACTIVE (test code = [id number]) BASIC METABOLIC [id number] 13:39:00 Test Item Value Reference Range Interpretation [...] 10.3 MG/DL 8.4-10.2 H CA) BASIC METABOLIC [id number] 13:38:00 Test Item Value Reference Range Interpretation [...] code = MG/DL 8.7-9.7 CA) BASIC METABOLIC [id number] 13:36:00 Test Item Value Reference Range Interpretation [...] code = CA) MG/DL 8.7-9.7 BASIC METABOLIC [id number] 13:35:00 Test Item Value Reference Range Interpretation [...] (test code = CA) MG/DL 8.7-9.7 PROTHROMBIN [id number] 13:32:00 Test Item Value Reference Range Interpretation [...] dial infarction. 2. 0 - 3.0 3. 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 3.0 - 4.5 PTT [id number] 13:32:00 Test Item Value Reference Range Interpretation Comments PTT ACTIVATED (test code = APTT) 35.5 SECONDS 25.1-36.5 N CBC W/AUTO [id number] 13:23:00 Test Item Value Reference Range Interpretation [...] 0.0-0.1 N NRBC#) - XR CHEST 2 [id number] 13:16:00 Patient Name: DEBI GARRETT Unit No: [id number] EXAMS: CPT CODE: [id number] XR CHEST 2 V 31241 Site ID: [id number] HISTORY: Preoperative, right carotid endarterectomy FINDINGS: The lungs are clear and normally expanded. The heart and pulmonary vasculature is normal. Previous coronary artery stenting noted. Osseous structures are unremarkable. IMPRESSION: No acute cardiopulmonary finding at 1316 Reported and signed by: Laith Salcido MD CC: Poli Aaron Technologist: Britney Myers, RT (R) Transcrpt Date/Tm/Trnsp: 07/29/2019 (4716) [email or web address] Orig Print D/T: S: 07/29/2019 (9194) [facility] [place] NAME: DEBI GARRETT [address] [place] [address] PHYS:[place] [address] : 1935 AGE: 84 SEX: F LOC: JING PHONE #: [phone] EXAM DATE: 07/29/2019 STATUS: PRE IN FAX #: [phone] RADIOLOGY NO: PAGE 1 Signed ReportBASIC METABOLIC [id number] 06:23:00 Test Item Value Reference Range Interpretation [...] 0-189 mg/dL VERY HIGH.........>/ = 190 mg/dL [id number] 06:23:00 Test Item Value Reference Range Interpretation Comments MAGNESIUM (test code = MAG) 2.2 MG/DL 1.6-2.3 N PROTHROMBIN [id number] 06:16:00 Test Item Value Reference Range Interpretation [...] myocar dial infarction. 2.0 - 3.0 3. 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 3.0 - 4.5 PTT [id number] 06:16:00 Test Item Value Reference Range Interpretation Comments PTT ACTIVATED (test code = APTT) 33.9 SECONDS 25.1-36.5 N BASIC METABOLIC [id number] 06:11:00 Test Item Value Reference Range Interpretation [...] LDL (test MG/DL 0-99 code = LDL) [id number] 06:11:00 Test Item Value Reference Range Interpretation Comments MAGNESIUM (test code = MAG) MG/DL 1.6-2.3 BASIC METABOLIC [id number] 06:11:00 Test Item Value Reference Range Interpretation [...] LDL (test MG/DL 0-99 code = LDL) [id number] 06:11:00 Test Item Value Reference Range Interpretation Comments MAGNESIUM (test code = MAG) 2.2 MG/DL 1.6-2.3 N BASIC METABOLIC [id number] 06:08:00 Test Item Value Reference Range Interpretation [...] LDL (test code = LDL) MG/DL 0-99 [id number] 06:08:00 Test Item Value Reference Range Interpretation Comments MAGNESIUM (test code = MAG) MG/DL 1.6-2.3 CBC W/AUTO [id number] 06:00:00 Test Item Value Reference Range Interpretation [...]
--- NOTE | 2023-02-01 12:32 | RAD REPORT ---
EXAM DESCRIPTION: CT - Head Brain Wo Cont - 02/01/2023 12:25 pm CLINICAL HISTORY: Syncope COMPARISON: January 27, 2023 TECHNIQUE: Computed axial tomography of the head was obtained. IV contrast was not requested. All CT scans are performed using dose optimization technique as appropriate and may include automated exposure control or mA/KV adjustment according to patient size. FINDINGS: An intracranial bleed is not seen The ventricles are normal in caliber No extra-axial fluid collection is noted. No significant hyperdensity within the brain. Fluid within the sinuses/ mastoids is not seen. IMPRESSION: No acute intracranial abnormality is seen If patient's symptoms persist MRI of the brain would be recommended
[2023-02-01 12:55] LABS: Absolute Lymphocytes (CBC) 0.9 K/uL (0.7-4.9); Hematocrit 42.5 % (36.0-45.0); Lymphocytes % 7.7 % (15.3-44.8); MCV 88.9 fL (80-100); MPV 8.1 fL (7.6-11.3); Platelets 270 thou/uL (152-406); RBC Red Blood Cell Count 4.78 M/uL (3.86-4.86)
[2023-02-01 12:56] LABS: Protime INR 1.11
--- NOTE | 2023-02-01 13:19 | RAD REPORT ---
EXAM DESCRIPTION: RADChest Single View02/01/2023 1:03 pm CLINICAL HISTORY: SYNCOPE COMPARISON: Chest Single View dated 01/27/2023; Chest Pa And Lat (2 Views) dated 07/16/2022; Chest Sin gle View dated 05/01/2022; Chest Single View dated 09/28/2020 TECHNIQUE: Portable AP view of the chest. FINDINGS: The lungs are clear. No pneumothorax or effusion. The cardiomediastinal contours are unre markable. IMPRESSION: No acute cardiopulmonary process.
[2023-02-01 13:20] LABS: Albumin 3.5 g/dL (3.4-5.0); Bilirubin Direct 0.2 mg/dL (0-0.2); Bilirubin Indirect, Calculated 0.8 mg/dL (0.2-0.8); Magnesium 2.1 mg/dL (1.6-2.4); Protein, Total 7.2 g/dL (6.4-8.2); Troponin High Sensitivity 12.4 pg/mL (<58.9)
[2023-02-01 13:32] LABS: Blood Morphology Comment NOT SEEN (NOT SEEN); Platelet Estimate ADEQ; White Blood Cell Scan OK (OK)
--- NOTE | 2023-02-01 13:34 | ER ---
Nurse's Notes [facility] Name: Leyda Ramos Age: 87 yrs Sex: Female : 1935 Arrival Date: 02/01/2023 Time: 12:01 Bed 3 Private MD: Diagnosis: Altered mental status, hypotension Presentation: 02/01 12:07 Chief complaint: EMS states: Pt from [facility], EMS called for AMS, pt found sitting in ph chair w/ arm frozen up in the air, staring to the right, unresponsive, initial BP 40s systolic, HR 50s sinus enriqueta, 88% RA, 18 G IV established to RFA, 500 NS given w/ no improvement in BP, administered 1 mg of 1:100,000 epinepherine, BP improved to 156/69, HR 84, pt became more responsive, placed on 2L NC 99%, BGL 228, pt A\T\O x 4 upon arrival to ED, d/c from hospital yesterday after being admitted for a fall. Coronavirus screen: Vaccine status: Patient reports receiving the 2nd dose of the covid vaccine. Ebola Screen: No symptoms or risks identified at this time. Initial Sepsis Screen: Does the patient meet any 2 criteria? No. Patient's initial sepsis screen is negative. Does the patient have a suspected source of infection? No. Patient's initial sepsis screen is negative. Risk Assessment: Do you want to hurt yourself or someone else? Patient reports no desire to harm self or others. Onset of symptoms was February 01, 2023. 12:07 Method Of Arrival: EMS: [facility] ph 12:07 Acuity: EVELIO 2 ph Historical: - Allergies: 12:14 Augmentin; ph 12:14 Bactrim; ph 12:14 Hydrocodone-Acetaminophen; ph 12:14 PENICILLINS; ph - Home Meds: 12:14 amlodipine 5 mg tablet 1 tab daily [Active]; Lipitor 80 mg Oral tablet 1 tab daily ph [Active]; carvedilol 3.125 mg Oral tab 1 tab daily [Active]; donepezil 10 mg Oral tablet every day at bedtime [Active]; Plavix 75 mg Oral tablet daily [Active]; duloxetine 20 mg Oral capsule daily [Active]; hydrochlorothiazide 12.5 mg Oral capsule daily [Active]; isosorbide dinitrate 30 mg Oral tablet 1 tab daily [Active]; levothyroxine 50 mcg tab 1 tab once daily [Active]; losartan 100 mg Oral tablet daily [Active]; pregabalin 100 mg Oral capsule every 12 hours [Active]; valacyclovir 500 mg oral tablet 1 tab daily [Active]; - PMHx: 12:14 Alzheimer's disease; chronic kidney disease; Chronic pain; pelvic; depressive disorder; ph GALLSTONES; GERD; High Cholesterol; Hypertension; Hypothyroidism; leaking heart valve; - Immunization history:: Adult Immunizations up to date. - Social history:: Smoking status: Patient denies any tobacco usage or history of. Screenin:19 [facility] ED Fall Risk Assessment (Adult) History of falling in the last 3 months, ph including since admission Yes- single mechanical fall (1 pt) Confusion or Disorientation No (0 pts) Intoxicated or Sedated No (0 pts) Impaired Gait Yes (1 pt) Mobility Assist Device Used Yes (1 pt) Altered Elimination Yes (1 pt) Score/Fall Risk Level 3 or more points = High Risk Oriented to surroundings, Maintained a safe environment, Provided non-skid footwear, Hourly rounding (assess needs \T\ fall precautionary measures) done, Used ambulatory aids as needed (educated on \T\ assisted with). Abuse screen: Denies threats or abuse. Denies injuries from another. Nutritional screening: No deficits noted. Tuberculosis screening: No symptoms or risk factors identified. Assessment: 12:15 General: Appears in no apparent distress. comfortable, Behavior is calm, cooperative, ph appropriate for age, Denies fever, feeling ill. Pain: Denies pain. Neuro: Level of Consciousness is awake, alert, obeys commands, Oriented to person, place, time, situation, Moves all extremities. Speech is normal, Facial symmetry appears normal, Pupils are PERRLA. Cardiovascular: Reports fatigue, Denies chest pain, shortness of breath, Capillary refill < 3 seconds in bilateral fingers Patient's skin is warm and dry. Rhythm is sinus rhythm. Respiratory: Airway is patent Respiratory effort is even, unlabored. GI: Patient currently denies abdominal pain, diarrhea, pain, vomiting. Derm: Skin is pink, warm \T\ dry. 12:55 Reassessment: Dr Ozuna notified of low BP reading, verbal order received for 500 NS ph bolus. 17:18 Reassessment: Patient appears in no apparent distress at this time. Patient and/or ph family updated on plan of care and expected duration. Pain level reassessed. Patient is alert, oriented x 3, equal unlabored respirations, skin warm/dry/pink. Attempted to call report to second floor, no nurse assigned to room. 17:57 Reassessment: Attempted to call report to second floor, told that pt could not go up ph until after shift change. 19:25 Reassessment: attempted to give report. ha1 19:47 Reassessment: report given to JOSÉ Gonzalez. ha1 19:48 Reassessment: Patient and/or family updated on plan of care and expected duration. Pain ha1 level reassessed. Patient is alert, oriented x 3, equal unlabored respirations, skin warm/dry/pink. Vital Signs: 12:07 BP 119 / 41; Pulse 64; Resp 18; Temp 97.7; Pulse Ox 95% on R/A; Weight 52.62 kg; ph 12:55 BP 84 / 46; Pulse 58; Resp 18; Pulse Ox 93% on R/A; ph 13:08 BP 92 / 48; Pulse 58; Resp 16; Pulse Ox 92% on R/A; ph 13:11 BP 102 / 46; Pulse 63; Resp 18; Pulse Ox 92% on R/A; ph 13:37 BP 101 / 49; Pulse 60; Resp 18; Pulse Ox 99% on 2 lpm NC; ph 14:30 BP 109 / 54; Pulse 62; Resp 18; Pulse Ox 96% on 2 lpm NC; ph 15:30 BP 122 / 60; Pulse 65; Resp 18; Pulse Ox 98% on 2 lpm NC; ph 16:54 BP 115 / 90; Pulse 67; Resp 18; Temp 97.5; Pulse Ox 96% on 2 lpm NC; ph 19:18 BP 130 / 59; Pulse 85; Resp 18; Pulse Ox 98% on 2 lpm NC; ph 19:48 BP 131 / 58; Pulse 68; Resp 18 S; Pulse Ox 96% on 2 lpm NC; ha1 ED Course: 12:06 Patient arrived in ED. kc6 12:06 All Ozuna MD is Attending Physician. sp3 12:07 Lena Srivastava RN is Primary Nurse. ph 12:14 Triage completed. ph 12:19 Arm band placed on Patient placed in an exam room, on a stretcher, on cardiac cath technologist, ph on pulse oximetry. 12:20 Patient has correct armband on for positive identification. Placed in gown. Bed in low ph position. Call light in reach. Side rails up X2. Client placed on continuous cardiac and pulse oximetry monitoring. NIBP monitoring applied. Warm blanket given. 12:27 CT Head Brain wo Cont In Process Unspecified. EDMS 13:05 XRAY Chest (1 view) In Process Unspecified. EDMS 13:11 Maintain EMS IV. Dressing intact. Good blood return noted. Site clean \T\ dry. Gauge \T\ ph site: 18 RFA. 13:33 Santiago Reynoso MD is Hospitalizing Provider. sp3 16:54 No provider procedures requiring assistance completed. Patient admitted, IV remains in ph place. 19:47 Primary Nurse role handed off by Lena Srivastava RN 20:03 Provided Education on: need for admit. jw7 Administered Medications: 12:56 Drug: NS 0.9% IV 500 ml IV at bolus once Route: IV; Rate: bolus; Site: right forearm; ph 20:04 Follow up: Response: No adverse reaction; IV Status: Completed infusion; IV Intake: jw7 500ml Medication: 13:10 VIS not applicable for this client. ph Intake: 20:04 IV: 500ml; Total: 500ml. jw7 Outcome: 13:33 Decision to Hospitalize by Provider. sp3 20:01 Admitted to Med/surg accompanied by tech, via stretcher, room 211, with chart, jw7 20:01 Condition: stable 20:02 Instructed on the need for admit, Demonstrated understanding of instructions, jw7 20:03 Patient left the ED. jw7 Signatures: Dispatcher [employer] EDOR Lena Srivastava RN RN ph Marsh, Wendy All Ozuna MD MD sp3 Sandi Starr RN RN jwBrittney Guerra RN RN ha1 Campbell, Kaitlyn, RN RN kc6 Corrections: (The following items were deleted from the chart) 12:19 12:14 PMHx: chronic kidney disease; ph ph 12:19 12:14 PMHx: chronic kidney disease; ph ph 20:03 20:01 Admitted to Med/surg accompanied by tech, via stretcher, jw7 jw7
--- NOTE | 2023-02-01 13:34 | EDPHYS ---
Physician Documentation [facility] Name: Leyda Ramos Age: 87 yrs Sex: Female : 1935 Arrival Date: 02/01/2023 Time: 12:01 Bed 3 Private MD: ED Physician All Ozuna HPI: 02/01 13:09 This 87 yrs old Female presents to ER via EMS with complaints of AMS, low blood sp3 pressure. 13:09 87-year-old female with a history of CKD, depression, gallstones, Alzheimer's disease, sp3 who presents to the ED via EMS from the intermediate for chief complaint altered mental status and low blood pressure. Patient was just discharged from the hospital for recent trauma admission. Limited history, physical and ROS secondary to patient's confusion and altered mental status likely at baseline. EMS arrived to find patient holding her right arm up and staring off into space and minimally responsive. Blood pressure was 60 systolic and EMS reports perioral cyanosis coupled with decreased mental status. IV was established by EMS and they administered 1 unit of epinephrine per the protocol which increased heart rate from the upper 50s to the 70s and blood pressure into the normal range. Mental status improved subsequent to that intervention. No reports of fever, bleeding, vomiting, diarrhea, or any other atypical patterns as reported by EMS. Patient also denies any of these things though her historical recall is limited.. Historical: - Allergies: 12:14 Augmentin; ph 12:14 Bactrim; ph 12:14 Hydrocodone-Acetaminophen; ph 12:14 PENICILLINS; ph - Home Meds: 12:14 amlodipine 5 mg tablet 1 tab daily [Active]; Lipitor 80 mg Oral tablet 1 tab daily ph [Active]; carvedilol 3.125 mg Oral tab 1 tab daily [Active]; donepezil 10 mg Oral tablet every day at bedtime [Active]; Plavix 75 mg Oral tablet daily [Active]; duloxetine 20 mg Oral capsule daily [Active]; hydrochlorothiazide 12.5 mg Oral capsule daily [Active]; isosorbide dinitrate 30 mg Oral tablet 1 tab daily [Active]; levothyroxine 50 mcg tab 1 tab once daily [Active]; losartan 100 mg Oral tablet daily [Active]; pregabalin 100 mg Oral capsule every 12 hours [Active]; valacyclovir 500 mg oral tablet 1 tab daily [Active]; - PMHx: 12:14 Alzheimer's disease; chronic kidney disease; Chronic pain; pelvic; depressive disorder; ph GALLSTONES; GERD; High Cholesterol; Hypertension; Hypothyroidism; leaking heart valve; - Immunization history:: Adult Immunizations up to date. - Social history:: Smoking status: Patient denies any tobacco usage or history of. ROS: 13:11 Unable to obtain ROS due to altered mental status, baseline dementia, sp3 Exam: 13:13 Constitutional: This is a well developed, well nourished patient who is awake, alert, sp3 and in no acute distress. Head/Face: Normocephalic, atraumatic. Eyes: Pupils equal round and reactive to light, extra-ocular motions intact. Lids and lashes normal. Conjunctiva and sclera are non-icteric and not injected. Cornea within normal limits. Periorbital areas with no swelling, redness, or edema. ENT: Nares patent. No nasal discharge, no septal abnormalities noted. External auditory canals are clear. Oropharynx with no redness, swelling, or masses, exudates, or evidence of obstruction, uvula midline. Mucous membranes moist. Neck: Trachea midline, no thyromegaly or masses palpated, and no cervical lymphadenopathy. Supple, full range of motion without nuchal rigidity, or vertebral point tenderness. No Meningismus. Chest/axilla: Normal chest wall appearance and motion. Nontender with no deformity. No lesions are appreciated. Cardiovascular: Regular rate and rhythm with a normal S1 and S2. No gallops, murmurs, or rubs. Normal PMI, no JVD. No pulse deficits. Respiratory: Lungs have equal breath sounds bilaterally, clear to auscultation and percussion. No rales, rhonchi or wheezes noted. No increased work of breathing, no retractions or nasal flaring. Abdomen/GI: Soft, non-tender, with normal bowel sounds. No distension or tympany. No guarding or rebound. No evidence of tenderness throughout. Back: No spinal tenderness. No costovertebral tenderness. Full range of motion. MS/ Extremity: Pulses equal, no cyanosis. Neurovascular intact. Full, normal range of motion. Psych: Awake, alert, with orientation to person, place and time. Behavior, mood, and affect are within normal limits. 13:13 Skin: Skin pallor noted. No perioral cyanosis seen.. 13:13 Neuro: Patient altered and disoriented to person and time. She does endorse location. Patient is resting comfortably and moves all extremities and has no obvious cranial nerve deficiencies. Gait not assessed. Speech is normal., 13:19 ECG was reviewed by the Attending Physician. EKG demonstrates normal sinus rhythm at 70 sp3 bpm with normal intervals, leftward axis, normal QRS, nonspecific diffuse ST/T changes without evidence of acute ischemia. Vital Signs: 12:07 BP 119 / 41; Pulse 64; Resp 18; Temp 97.7; Pulse Ox 95% on R/A; Weight 52.62 kg; ph 12:55 BP 84 / 46; Pulse 58; Resp 18; Pulse Ox 93% on R/A; ph 13:08 BP 92 / 48; Pulse 58; Resp 16; Pulse Ox 92% on R/A; ph 13:11 BP 102 / 46; Pulse 63; Resp 18; Pulse Ox 92% on R/A; ph 13:37 BP 101 / 49; Pulse 60; Resp 18; Pulse Ox 99% on 2 lpm NC; ph 14:30 BP 109 / 54; Pulse 62; Resp 18; Pulse Ox 96% on 2 lpm NC; ph 15:30 BP 122 / 60; Pulse 65; Resp 18; Pulse Ox 98% on 2 lpm NC; ph 16:54 BP 115 / 90; Pulse 67; Resp 18; Temp 97.5; Pulse Ox 96% on 2 lpm NC; ph 19:18 BP 130 / 59; Pulse 85; Resp 18; Pulse Ox 98% on 2 lpm NC; ph 19:48 BP 131 / 58; Pulse 68; Resp 18 S; Pulse Ox 96% on 2 lpm NC; ha1 MDM: 12:07 Patient medically screened. sp3 13:15 Data reviewed: vital signs, nurses notes, EMS record, old medical records, lab test sp3 result(s), EKG, radiologic studies. ED course: 87-year-old female with altered mental status and reported hypotension and skin pallor coupled with hypoxia into the mid 80s on oxygenation. Broad differential diagnosis exists including overmedication, sepsis, acute coronary syndrome, electrolyte abnormality, CVA, seizure, among others. Work-up will include CT scan of the head, EKG, chest x-ray, laboratory values and general observation. We will continue IV fluids likely admit this patient for 23-hour observation at the very minimum with serial troponins and serial neurological checks.. 02/01 12:11 Order name: Basic Metabolic Panel; Complete Time: 13:21 sp3 02/01 12:11 Order name: CBC with Diff sp3 02/01 12:11 Order name: LFT's; Complete Time: 13:21 sp3 02/01 12:11 Order name: Magnesium; Complete Time: 13:21 sp3 02/01 12:11 Order name: NT PRO-BNP; Complete Time: 13:21 sp3 02/01 12:11 Order name: PT-INR; Complete Time: 13:19 sp3 02/01 12:11 Order name: Troponin HS; Complete Time: 13:21 sp3 02/01 13:32 Order name: CBC Smear Scan EDMS 02/01 14:30 Order name: Urinalysis w/ reflexes EDMS 02/01 14:31 Order name: Basic Metabolic Panel EDMS 02/01 14:31 Order name: Basic Metabolic Panel EDMS 02/01 14:31 Order name: Basic Metabolic Panel EDMS 02/01 14:31 Order name: Basic Metabolic Panel EDMS 02/01 14:31 Order name: CBC with Automated Diff EDMS 02/01 14:31 Order name: CBC with Automated Diff EDMS 02/01 14:31 Order name: CBC with Automated Diff EDMS 02/01 14:31 Order name: CBC with Automated Diff EDMS 02/01 14:31 Order name: Magnesium EDMS 02/01 14:31 Order name: Magnesium EDMS 02/01 14:31 Order name: Magnesium EDMS 02/01 14:31 Order name: Magnesium EDMS 02/01 14:31 Order name: Phosphorus EDMS 02/01 14:31 Order name: Phosphorus EDMS 02/01 14:31 Order name: Phosphorus EDMS 02/01 14:31 Order name: Phosphorus EDMS 02/01 12:11 Order name: XRAY Chest (1 view); Complete Time: 13:20 sp3 02/01 12:11 Order name: CT Head Brain wo Cont; Complete Time: 13:19 sp3 02/01 12:11 Order name: EKG; Complete Time: 12:12 sp3 02/01 12:11 Order name: Cardiac monitoring; Complete Time: 12:33 sp3 02/01 12:11 Order name: EKG - Nurse/Tech; Complete Time: 12:33 sp3 02/01 12:11 Order name: IV Saline Lock; Complete Time: 12:51 sp3 02/01 12:11 Order name: Labs collected and sent; Complete Time: 12:51 sp3 02/01 12:11 Order name: O2 Per Protocol; Complete Time: 12:20 sp3 02/01 12:11 Order name: O2 Sat Monitoring; Complete Time: 12:20 sp3 Administered Medications: 12:56 Drug: NS 0.9% IV 500 ml IV at bolus once Route: IV; Rate: bolus; Site: right forearm; ph 20:04 Follow up: Response: No adverse reaction; IV Status: Completed infusion; IV Intake: jw7 500ml Disposition Summary: 02/01/23 13:33 Hospitalization Ordered Notes: Hospitalization Status: Observation sp3 Provider: Santiago Reynoso sp3 Condition: Stable sp3 Problem: an acute exacerbation sp3 Symptoms: have worsened sp3 Bed/Room Type: Standard sp3 Location: Telemetry/MedSurg (Inpatient)(02/01/23 16:50) 6 Room Assignment: [facility](02/01/23 16:50) [facility] Diagnosis - Altered mental status, hypotension sp3 Forms: - Medication Reconciliation Form sp3 - SBAR form sp3 - Leadership Thank You Letter sp3 Signatures: Dispatcher [employer] Lena Rodrigues RN RN All Ozuna MD MD sp3 Amparo Gold 6 Sandi Starr RN jw7 Corrections: (The following items were deleted from the chart) 12:19 12:14 PMHx: chronic kidney disease; ph ph 12:19 12:14 PMHx: chronic kidney disease; ph ph 16:50 13:33 Telemetry/MedSurg (observation) sp3 bc6 16:50 13:33 sp3 6
[2023-02-01] MEDS ORDERED: ONDANSETRON 4 MG/2 ML VIAL IV PRN (14:26)
[2023-02-01] MEDS ORDERED: MAGNESIUM HYDROXIDE 8% 30 ML PO PRN (14:26)
[2023-02-01] MEDS ORDERED: ACETAMINOPHEN 500 MG TAB PO PRN (14:26)
[2023-02-01] MEDS ORDERED: ALBUTEROL 2.5 MG/3 ML NEB SOL NEB PRN (14:26)
--- NOTE | 2023-02-01 14:34 | P.HP ---
Certification for Inpatient With expected LOS: >2 Midnights Practitioner: I am a practitioner with admitting privileges, knowledge of patient current condition, hospital course, and medical plan of care. Services: Services provided to patient in accordance with Admission requirements found in Title 42 Section 412.3 of the Code of Federal Regulations Patient History Date of Service: 02/01/23 Reason for admission: Altered mental status, hypotension History of Present Illness: . 87-year-old female with a history of CKD, depression, gallstone, Alzheimer's disease, who presented to the emergency room from [facility] with the complaints of altered mental status and low blood pressure. Patient was just discharged from the hospital for recent trauma admission. Patient was minimally responsive when EMS arrived to the [facility]. Blood pressure was 60 systolic, with a decreased mental status. EMS reports that patient was given epinephrine when they arrived. Patient's mental status improved. Patient is awake responding to questions appropriately. Patient's granddaughter is at the bedside, giving history. no reports of fever, bleeding, vomiting, diarrhea. Patient denies chest pain, shortness of breath, chest discomfort ED course vital signs 119/41, pulse 64, respiration 18, temperature 97.7, pulse ox 95% on room air. Initial lab works showing leukocytosis 12.1, elevated BUN 24, mild creatinine 1.32, GFR 39. CT head without contrast shows no acute abnormality. Normal saline 500 mL IV bolus x1 was given in the emergency room Admitting the patient with a diagnosis of altered mental status, and hypotension. Allergies hydrocodone Adverse Reaction (Verified 09/28/20 21:39) Insomnia Home Medications: Clopidogrel Bisulfate [Plavix*] 75 mg PO DAILY 09/28/20 Duloxetine HCl [Cymbalta] 20 mg PO DAILY 09/28/20 Isosorbide Mononitrate [Isosorbide Mononitrate ER] 30 mg PO DAILY 09/28/20 Nature Made-Super Complex 1 tab PO DAILY 09/28/20 Pregabalin [Lyrica*] 100 mg PO BID 09/28/20 [place] Vitamin Suppleme 1 tab PO DAILY 09/28/20 Amlodipine [Norvasc*] 5 mg PO DAILY 30 Days #30 tab 10/01/20 Polyethylene Glycol 3350 [Miralax] 17 gm PO BEDTIME 10/01/20 Thiamine HCl [Vitamin B-1*] 100 mg PO DAILY #90 tablet 10/01/20 Atorvastatin Calcium [Lipitor] 80 mg PO BEDTIME 01/28/23 Carvedilol [Coreg] 3.125 mg PO DAILY 01/28/23 Docusate [Colace Cap*] 100 mg PO DAILY PRN 01/28/23 Levothyroxine Sodium 50 mcg PO DAILY 01/28/23 Losartan Potassium 100 mg PO DAILY 01/28/23 Hydralazine [Apresoline*] 25 mg PO TID 30 Days #90 tab 01/31/23 Losartan Potassium [Cozaar*] 100 mg PO DAILY 01/31/23 Potassium Oral Tab [Klor-Con 10 mEq Tab*] 40 meq PO DAILY tab 01/31/23 - Past Medical/Surgical History Diabetic: No -: Hypertension -: Hyperlipidemia -: Carotid arterial disease -: Atrial fibrillation on chronic anticoagulation therapy -: GERD -: Pudental nerve ablation -: Surgical hypothyroidism -: 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 -: Hearing loss -: Carotid enterectomy -: Thyroidectomy Psychosocial/ Personal History: Patient lives at home with family - Social History Alcohol use: No CD- Drugs: Yes Caffeine use: Yes Review of Systems 10-point ROS is otherwise unremarkable Physical Examination - Physical Exam General: Alert, Oriented x3, Oriented x2 HEENT: Atraumatic, Normocephalic, PERRLA Neck: Supple Respiratory: Clear to auscultation bilaterally, Normal air movement Cardiovascular: No edema, Normal pulses Capillary refill: <2 Seconds Gastrointestinal: Normal bowel sounds, Soft and benign Musculoskeletal: No clubbing, No swelling Integumentary: No rashes, No breakdown Neurological: Normal gait, Normal speech Lymphatics: No axilla or inguinal lymphadenopathy External genitalia: No edema - Studies Laboratory Data (last 24 hrs) 02/01/23 02/01/23 02/01/23 12:40 12:40 12:40 WBC 12.10 H Hgb 14.3 Hct 42.5 Plt Count 270 PT 12.2 INR 1.11 Sodium 137 Potassium 4.0 BUN 24 H Creatinine 1.32 H Glucose 136 H Magnesium 2.1 Total Bilirubin 1.0 AST 29 ALT 45 Alkaline Phosphatase 74 Assessment and Plan - Problems (Diagnosis) (1) Altered mental status, unspecified Current Visit: Yes Status: Acute Plan: Patient was found to have altered mental status in the [facility] likely due to hypotension Admitted for 23-hour observation Patient's blood pressure got better and patient is alert and oriented x2 We will continue to monitor Qualifiers: Altered mental status type: disorientation Qualified Code(s): R41.0 - Disorientation, unspecified (2) CKD (chronic kidney disease) stage 3, GFR 30-59 ml/min Current Visit: Yes Status: Chronic Plan: Chronic , GFR 39, BUN 24, creatinine 1.32 Renal dose medications Avoid nephrotoxins (3) Hypotension Current Visit: Yes Status: Acute Plan: Acute, patient was brought to the emergency room due to hypotension in the [facility]dc to low 40s Blood pressure got better in the emergency room patient received normal saline 500 mL by IV bolus Also patient was given epinephrine 1 mg by the EMS Vital signs in the emergency room blood pressure 119/41, pulse 64, respiration 18, temperature 97.7, pulse ox 95% on room We will continue to monitor the patient's blood pressure closely Hold all the antihypertensive medications at this time (4) CAD (coronary artery disease) Current Visit: Yes Status: Chronic Plan: Chronic, controlled on Plavix 75 mg p.o. daily Patient denies chest pain or discomfort Continue the current medications Qualifiers: Coronary Disease-Associated Artery/Lesion type: lummi artery Discharge Plan: Prison Plan to discharge in: 24 Hours - Advance Directives Does patient have a Living Will: Yes Does patient have a Durable POA for Healthcare: No - Code Status/Comfort Care Code Status Assessed: Yes (Full code) Code Status: Full Code Physician Review: Patient Assessed, Agree with Above Assessment and Plan Critical Care: No Time Spent Managing Pts Care (In Minutes): 55 (Minutes)
[2023-02-02] MEDS: HEPARIN 5000 UNIT/ML 1 ML VIAL SQ SCH ×4 (00:31→18:01)
[2023-02-02 02:42] LABS: Absolute Lymphocytes (CBC) 1.5 K/uL (0.7-4.9); Hematocrit 36.3 % (36.0-45.0); Lymphocytes % 16.1 % (15.3-44.8); MPV 8.1 fL (7.6-11.3); Platelets 244 thou/uL (152-406); RBC Red Blood Cell Count 4.17 M/uL (3.86-4.86)
[2023-02-02 03:05] LABS: Magnesium 2.1 mg/dL (1.6-2.4); Phosphorus 3.5 mg/dL (2.5-4.9); Potassium 3.8 mEq/L (3.5-5.1)
[2023-02-02 03:48] LABS: Specific Gravity 1.013 (1.005-1.030); Urine Bacteria <20 /HPF (<20); Urine Bilirubin NEGATIVE (Negative); Urine Blood Trace (Negative); Urine Clarity Extremely Turbid (Clear); Urine Color Light-Yellow (Yellow); Urine Glucose NEGATIVE (Negative); Urine Mucus Slight /HPF (None Seen); Urine Protein NEGATIVE (Negative); Urine RBC <5 /HPF (None Seen); Urine Urobilinogen Normal (Normal); Urine WBC Clump Rare /HPF (None Seen); Urine pH 5.5 (5.0-7.0)
[2023-02-02] MEDS ORDERED: POTASSIUM 25 MEQ EFFERV TAB PO ONE (08:00)
--- NOTE | 2023-02-02 09:13 | P.PN ---
Subjective Date of Service: 02/02/23 Chief Complaint: Altered mental status, hypotension Subjective: No new changes, Improving Physical Examination - Vital Signs Temperature: 97.6 F Blood Pressure: 156/77 Pulse: 64 Respirations: 18 Pulse Ox (%): 93 - Physical Exam General: Alert, Oriented x3 HEENT: Atraumatic Neck: Supple Respiratory: Normal air movement Cardiovascular: Regular rate/rhythm, Normal S1 S2 Gastrointestinal: Soft and benign Musculoskeletal: No swelling Neurological: Normal speech, Normal strength at 5/5 x4 extr - Studies Laboratory Data (last 24 hrs) 02/01/23 02/01/23 02/01/23 12:40 12:40 12:40 WBC 12.10 H Hgb 14.3 Hct 42.5 Plt Count 270 PT 12.2 INR 1.11 Sodium 137 Potassium 4.0 BUN 24 H Creatinine 1.32 H Glucose 136 H Magnesium 2.1 Total Bilirubin 1.0 AST 29 ALT 45 Alkaline Phosphatase 74 Assessment And Plan - Plan Hypotension UTI Hx of Hypertension CAD Hyperlipidemia Suspected sepsis Plan: She continues to have hypotension and her UA is very concerning for UTI. Urine culture has been taken with blood culture. we will continue empiric antibiotic of rocephin pending culture finalization. we will continue to hold antihypertensive medications. we will evaluate for PT/OT. Prophylaxis: Lovenox for DVT. Code status: full code. Disposition: >48hrs. Physician Review: Patient Assessed, Agree with Above Assessment and Plan
[2023-02-02] MEDS: CEFTRIAXONE 1,000 MG in NA CHLORIDE 0.9% 50 ML IVPB SCH (09:31)
[2023-02-03] MEDS: HEPARIN 5000 UNIT/ML 1 ML VIAL SQ SCH ×3 (01:18→16:48)
[2023-02-03 04:40] LABS: Absolute Lymphocytes (CBC) 1.8 K/uL (0.7-4.9); Hematocrit 39.5 % (36.0-45.0); Lymphocytes % 20.1 % (15.3-44.8); MPV 8.2 fL (7.6-11.3); Platelets 289 thou/uL (152-406); RBC Red Blood Cell Count 4.54 M/uL (3.86-4.86)
[2023-02-03 04:54] LABS: Phosphorus 3.4 mg/dL (2.5-4.9); Potassium 3.5 mEq/L (3.5-5.1)
[2023-02-03] MEDS: CEFTRIAXONE 1,000 MG in NA CHLORIDE 0.9% 50 ML IVPB SCH (08:48)
--- NOTE | 2023-02-03 12:47 | P.PN ---
Subjective Date of Service: 02/03/23 Chief Complaint: Altered mental status, hypotension Subjective: No new changes, Improving Physical Examination - Vital Signs Temperature: 97.5 F Blood Pressure: 131/68 Pulse: 65 Respirations: 16 Pulse Ox (%): 93 - Physical Exam General: Alert HEENT: Atraumatic, Normocephalic Neck: Supple Respiratory: Normal air movement Cardiovascular: Regular rate/rhythm, Normal S1 S2 Gastrointestinal: Soft and benign Musculoskeletal: No swelling Neurological: Normal speech Assessment And Plan - Plan Hypotension-resolving. UTI-gram neg rods growing. Hx of Hypertension CAD Hyperlipidemia Suspected sepsis Plan: Blood pressure readings are now stable. Urine cultures gram-negative gram-negative rods. We will continue Rocephin pending urine culture finalization. we will continue to hold antihypertensive medications. we will evaluate for PT/OT. Other chronic medications will be continued for comorbidity management. Prophylaxis: Lovenox for DVT. Code status: full code. Disposition: >48hrs. Physician Review: Patient Assessed, Agree with Above Assessment and Plan
--- NOTE | 2023-02-03 14:14 | EKG ---
Test Date: 2023-02-01 Test Time: 13:35:52 Vice President [employer]: PH MEASUREMENT RESULTS: Intervals: Rate: 70 [place]: 150 QRSD: 94 QT: 414 QTc: 447 [place]: P: 41 KY: 150 QRS: -34 T: 64 INTERPRETIVE STATEMENTS: Normal sinus rhythm Left axis deviation Abnormal ECG Compared to ECG 01/27/2023 09:49:07 Left-axis deviation now present Sinus bradycardia no longer present Electronically Signed On 02-03-23 14:08:27 MARKET RISK MANAGER by Vinod Barron
[2023-02-04] MEDS: HEPARIN 5000 UNIT/ML 1 ML VIAL SQ SCH ×3 (01:00→16:32)
[2023-02-04 07:27] LABS: Absolute Lymphocytes (CBC) 1.7 K/uL (0.7-4.9); Hematocrit 39.7 % (36.0-45.0); MCV 86.7 fL (80-100); Platelets 311 thou/uL (152-406); RBC Red Blood Cell Count 4.58 M/uL (3.86-4.86)
[2023-02-04 07:38] LABS: Phosphorus 3.4 mg/dL (2.5-4.9); Potassium 3.4 mEq/L (3.5-5.1)
[2023-02-04] MEDS ORDERED: DOCUSATE NA 100 MG CAP PO PRN (08:27)
[2023-02-04] MEDS: LOSARTAN POTASSIUM 50 MG TABLET PO SCH (09:44)
[2023-02-04] MEDS: carvediloL 3.125 MG TAB PO SCH (09:44)
[2023-02-04] MEDS: CEFTRIAXONE 1,000 MG in NA CHLORIDE 0.9% 50 ML IVPB SCH (09:45)
[2023-02-04] MEDS: LEVOTHYROXINE SOD 0.05 MG TABLET PO SCH (09:45)
[2023-02-04] MEDS: CLOPIDOGREL 75 MG TABLET PO SCH (09:45)
[2023-02-04] MEDS: ISOSORBIDE MONO SR 30 MG TAB PO SCH (09:45)
[2023-02-04] MEDS: VALACYCLOVIR 500 MG TAB PO SCH (09:45)
[2023-02-04] MEDS: AMLODIPINE 5 MG TAB PO SCH (09:45)
[2023-02-04] MEDS ORDERED: POTASSIUM CL SA 10 MEQ TAB PO ONE (10:16)
--- NOTE | 2023-02-04 14:19 | P.PN ---
Subjective Date of Service: 02/04/23 Chief Complaint: Altered mental status, hypotension Subjective: No new changes, Improving Physical Examination - Vital Signs Temperature: 97.3 F Blood Pressure: 104/55 Pulse: 73 Respirations: 16 Pulse Ox (%): 93 - Physical Exam General: Alert, Oriented x3 HEENT: Atraumatic Neck: Supple Respiratory: Normal air movement Cardiovascular: Regular rate/rhythm, Normal S1 S2 Gastrointestinal: Soft and benign Musculoskeletal: No swelling Neurological: Normal speech Assessment And Plan - Plan Hypotension-resolved. UTI-E. coli Hx of Hypertension CAD Hyperlipidemia Plan: Urine culture has not finalized and growing E. coli. Sensitive to Rocephin. We will continue IV Rocephin today and plan for discharge with oral antibiotic in a.m. Blood pressure reads of been elevated in the last 24. We will restart antihypertensive medications and monitor vital signs as per unit protocol. we will evaluate for PT/OT needs. Other chronic medications will be continued for comorbidity management. Prophylaxis: Lovenox for DVT. Code status: full code. Disposition: in 24hrs. Physician Review: Patient Assessed, Agree with Above Assessment and Plan
[2023-02-04] MEDS ORDERED: DONEPEZIL HCL 5 MG TAB PO SCH (21:00)
[2023-02-04] MEDS ORDERED: HOME MED 1 EA UNK (Donepezil Hcl [Donepezil Hcl] 10 MG Tablet) PO SCH (21:00)
[2023-02-04] MEDS ORDERED: ATORVASTATIN 80 MG TAB PO SCH (21:00)
[2023-02-04 22:31] VITALS: O2SAT 95
[2023-02-04 23:27] VITALS: BMI 23.0
[2023-02-05] MEDS: HEPARIN 5000 UNIT/ML 1 ML VIAL SQ SCH ×2 (01:11→09:00)
[2023-02-05] MEDS: CEFTRIAXONE 1,000 MG in NA CHLORIDE 0.9% 50 ML IVPB SCH (09:00)
[2023-02-05 09:06] VITALS: BP 153/71; TEMP 98.8
[2023-02-05] MEDS: carvediloL 3.125 MG TAB PO SCH (09:47)
[2023-02-05] MEDS: LEVOTHYROXINE SOD 0.05 MG TABLET PO SCH (09:47)
[2023-02-05] MEDS: AMLODIPINE 5 MG TAB PO SCH (09:48)
[2023-02-05] MEDS: VALACYCLOVIR 500 MG TAB PO SCH (09:48)
[2023-02-05] MEDS: LOSARTAN POTASSIUM 50 MG TABLET PO SCH (09:48)
[2023-02-05] MEDS: CLOPIDOGREL 75 MG TABLET PO SCH (09:48)
[2023-02-05] MEDS: ISOSORBIDE MONO SR 30 MG TAB PO SCH (09:49)
== END 2023-02-05 11:14 | disposition home or self-care (01) | DRG 690 ==
LOC: ER 12:01 → ERHOLD 14:22 → 2ND 17:13
PROVIDERS: ADMIT Internal Medicine Nephrology; ATTEND Hospitalist
DX: N39.0 Urinary tract infection, site not specified (principal); I12.9 Hypertensive chronic kidney disease with stage 1 through stage 4 chronic kidney disease, or unspecified chronic kidney disease; N18.30 Chronic kidney disease, stage 3 unspecified; E78.5 Hyperlipidemia, unspecified; I48.91 Unspecified atrial fibrillation; E03.9 Hypothyroidism, unspecified; K21.9 Gastro-esophageal reflux disease without esophagitis; G30.9 Alzheimer's disease, unspecified; F02.80 Dementia in other diseases classified elsewhere, unspecified severity, without behavioral disturbance, psychotic disturbance, mood disturbance, and anxiety; I95.9 Hypotension, unspecified; I25.10 Atherosclerotic heart disease of native coronary artery without angina pectoris; B96.20 Unspecified Escherichia coli [E. coli] as the cause of diseases classified elsewhere; Z88.1 Allergy status to other antibiotic agents; Z88.5 Allergy status to narcotic agent; Z88.0 Allergy status to penicillin; Z79.02 Long term (current) use of antithrombotics/antiplatelets; Z79.890 Hormone replacement therapy; Z79.899 Other long term (current) drug therapy
CPT/HCPCS: 36415; 70450; 71045; 80048; 80076; 81001; 83735; 83880; 84100; 84484; 85025; 85610; 87077; 87086; 87088; 87186; 93005; 96360; 96361; 99285; J0696; J1644

== ENCOUNTER 2023-02-07 00:47 | Observation (INO) | payer OTHER ==
--- OUTSIDE RECORDS SUMMARY | 2023-02-07 00:59 | XMS REPORT | Continuity of Care Document ---
:1935 Author Organization [facility] [place] [facility] t Address [address] [facility]. [address] [place] [address] Care Team Providers Name Role Phone SALOME WILSON Primary Care Physician Unavailable Robi Schroeder Attending Clinician Unavailable Kathrin Barrett Attending Clinician Unavailable Debora Marques MA Attending Clinician Unavailable Ruben TURPIN, Adrianna Rojas Attending Clinician Galen TURPIN, Poli Lyman Attending Clinician [phone] Chelly Stahl Attending Clinician Unavailable Caden Hamlin [...] Clinician Tyesha Garcia MA Attending Clinician Unavailable KARI FLORES Attending Clinician [...] Disease Active Methodi pain of pain of 10-31 right knee right knee 00:00: Ho spita 00 l Medicare Medicare Disease Active Overview: [facility] annual annual 5-10 [facility] wellness wellness 00:00: g of this Hos [...] Overview : Methodi in bowel in bowel - [facility] eliminatio eliminatio 00:00: g of this Hospita [...] 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 Chronic Chronic Disease Active Methodi constipati constipati [...] Active SV 2020-0 [facility] 14 00:00: [address] sulfamet DA Active SV 2020-0 [facility] hoxazole -14 [place] 00:00: [address] trimetho DA Active SV 2020-0 [facility] prim 5-14 [place] 00:00: [address] hydrocod DA Active SV allergy 2020-0 [facility] one - [place] 00:00: [address] sulfamet DA Active SV allergy 2020-0 [facility] hoxazole -14 [place] 00:00: [address] trimetho DA Active SV allergy 2020-0 [facility] prim 5-14 [place] 00:00: [address] Penicill DA Active U RASH 2020-0 [facility] ins 5-05 Clear 00:00: [place] 00 [facility] Penicill DA Active U 0 [facility] ins 5-05 [place] 00:00: [address] Sulfamet Propensi Active Rash 2017-03 Method i hoxazole ty to 0- st -Trimeth adverse 00:00: Hospita oprim reaction 00 l s to drug Penicill Propensi Active Rash 2017-03 Method i ins ty to 0 st adverse 00:00: Hospita reaction 00 l s to drug sulfamet DA Active SV allergy [facility] hoxazole 10-21 Clear 00:00: [place] 00 [facility] trimetho DA Active SV allergy [facility] prim 10-21 Clear 00:00: [place] [facility] Sulfamet Propensi Active Other (See Me thodi hoxazole ty to Comments) 10-21 adverse 00:00: Hospita reaction 00 l s to drug Trimetho Propensi Active Other (See Me thodi prim ty to Comments) 10-21 adverse 00:00: Hospita reaction 00 l s to drug hydrocod DA Active SV [facility] one 10-21 Clear 00:00: [place] 00 [facility] sulfamet DA Active SV [facility] hoxazole 10-21 Clear 00:00: [place] [facility] trimetho DA Active SV [facility] prim 10-21 Clear 00:00: [place] 00 [facility] hydrocod DA Active SV allergy [facility] one 10-21 Clear 00:00: [place] [facility] Amoxicil Propensi Active Method i brandi [...] BRANDI-POT 0-19 ity of CLAVULAN 00:00: [place] ATE 00 Medical Branch HYDROCOD DRUG Active Med [...] Date Stop Date Source Natural brother Diabetes [facility] Natural [facility] Natural father Lung cancer [facility] mother [facility] Natural sister Heart disease [facility] Natural son Diabetes [facility] Social History Social Habit Start Date Stop Date Quantity Comments Source Gender identity 2020-10-20 Identifies as Method ist 18:21:27 female gender Hospital (finding) Sexual orientation Method ist Hospital History SDOH University o f Alcohol Std Drinks [place] [facility] History SDOH University o f Alcohol Binge [place] [facility] History SDOH Social Unive rsity of Connections [facility] Med ical Together Branch History SDOH Social Unive rsity of Connections [facility] [place] [facility] History SDOH Social Unive rsity of Connections [place] [facility] Membership Branch History SDOH Social Unive rsity of Connections [place] [facility] Meetings Branch History SDOH 2022-08-14 2022-08-14 [...] 5 University o f Financial 00:00:00 00:00:00 [place] [facility] History SDOH Food 2022-08-14 2022-08-14 1 Univers ity of Worry 00:00:00 00:00:00 [place] [facility] History SDOH Food 2022-08-14 2022-08-14 1 Univers ity of Scarcity 00:00:00 00:00:00 [place] [facility] History SDOH 2022-08-14 2022-08-14 2 University o f Transport Med 00:00:00 00:00:00 [place] [facility] History SDOH 2022-08-14 2022-08-14 2 University o f Transport Non-Med 00:00:00 00:00:00 [place] M edical Branch History SDOH 2022-08-14 2022-08-14 2 University o f Housing Unable to 00:00:00 00:00:00 [place] M edical Pay Branch History SDOH 2022-08-14 2022-08-14 1 University o f Housing Places 00:00:00 00:00:00 [facility] merissa Lived Branch History SDOH 2022-08-14 2022-08-14 2 University o f Housing Homeless 00:00:00 00:00:00 [facility] dical Last Year Branch Exposure to 2022-08-03 2022-08-13 Not sure University of SARS-CoV-2 (event) 00:00:00 17:27:00 [facility] Branch Alcohol intake 2022-07-06 2022-07-06 Current [facility] 00:00:00 00:00:00 non-drinker of Hospital alcohol (finding) [...] l ) - Reported Cigarette 2021-12-21 2021-12-21 [facility] pack-years 00:00:00 00:00:00 Hospital Tobacco use and 2015-01-13 2015-01-13 Smokeless tobacco Un iversity of exposure 00:00:00 00:00:00 non-user [facility] [place] [facility] History of tobacco 1955-06-13 1965-03-10 Cigarette Smoker [facility] use 00:00:00 00:00:00 [facility] Sex Assigned At [birth year] [facility] y of 00:00:00 00:00:00 [facility] [place] [facility] Smoking Status Start Date Stop Date Source Never smoked tobacco BILL rene (finding) Ex-smoker 2015-01-13 00:00:00 2015-01-13 00:00:00 [facility] Medications Ordered Filled Start Stop Current Ordering Indication Dosage Frequency Signature Comments Components Source Medication Medication Date Date Medication? Clinician (SIG) Name Name pantoprazol 2022- No [id number] 40mg Take 1 Univers e 40 mg EC 5-25 06-25 tablet by ity of tablet 00:00: 04:59 mouth in [place] 00 :00 the Medical morning [place] for 30 days. pantoprazol 2022- No [id number] 40mg Take 1 Univers e 40 mg EC 5-25 06-25 tablet by ity of tablet 00:00: 04:59 mouth in [place] 00 :00 the Medical morning [place] for 30 days. atorvastati Yes 80mg Take 1 Univ ers n 80 mg 5-24 tablet by ity of tablet 16:30: mouth in [place] 45 the Medical morning. Branch vitamin Yes 1000ug Take 1,000 Un amber B-12 5-24 mcg by ity of (VITAMIN 16:30: mouth [place] B-12) 1,000 45 daily. Medica l mcg tablet Branch DULoxetine Yes 20mg Take 1 Unive rs 20 mg 5-24 capsule by ity of capsule 16:30: mouth in [place] 45 the Medical morning. 2 Branch cap daily carvediloL 2023-0 Yes 3.125mg Take 1 Un amber 3.125 mg 5-24 tablet by ity of tablet 16:30: mouth in [place] [address] the Medical morning Branch and 1 tablet in the evening. Take with meals. pregabalin 2023-0 Yes 100mg Take 1 Univ ers 100 mg 5-24 capsule by ity of capsule 16:30: mouth in [place] [address] the Medical morning Branch and 1 capsule in the evening. clopidogreL 2023-0 Yes 75mg Take 1 Univ ers 75 mg 5-24 tablet by ity of tablet 16:30: mouth in [place] [address] the Medical morning. Branch donepeziL 2023-0 Yes 10mg Take 1 Univer s 10 mg 5-24 tablet by ity of tablet 16:30: mouth at [place] [address] bedtime. Medical Branch amLODIPine 3-0 Yes 5mg Take 1 Unive rs 5 mg tablet 5-24 tablet by ity of 16:30: mouth in [place] [address] the Medical morning. Branch isosorbide 2023-0 Yes 30mg Take 1 Unive rs dinitrate 5-24 tablet by ity o f 30 mg 16:30: mouth in [place] tablet 45 the Medical morning. Branch levothyroxi 2023-0 Yes 50ug Take 1 Univ ers ne 5-24 tablet by ity of (SYNTHROID) 16:30: mouth in [place] 50 mcg 45 the Medical tablet morning. Branch losartan 3-0 Yes 100mg Take 1 Univer s (COZAAR) 5-24 tablet by ity of 100 mg 16:30: mouth in [place] tablet 45 the Medical morning. Branch atorvastati 3-0 Yes 80mg Take 1 Univ ers n 80 mg 5-24 tablet by ity of tablet 16:30: mouth in [place] [address] the Medical morning. Branch vitamin 2023-0 Yes 1000ug Take 1,000 Un amber B-12 5-24 mcg by ity of (VITAMIN 16:30: mouth [place] B-12) 1,000 45 daily. Medica l mcg tablet Branch DULoxetine 2023-0 Yes 20mg Take 1 Unive rs 20 mg 5-24 capsule by ity of capsule 16:30: mouth in [place] [address] the Medical morning. 2 Branch cap daily carvediloL 2023-0 Yes 3.125mg Take 1 Un amber 3.125 mg 5-24 tablet by ity of tablet 16:30: mouth in [place] [address] the Medical morning Branch and 1 tablet in the evening. Take with meals. pregabalin 2023-0 Yes 100mg Take 1 Univ ers 100 mg 5-24 capsule by ity of capsule 16:30: mouth in [place] [address] the Medical morning Branch and 1 capsule in the evening. clopidogreL 2023-0 Yes 75mg Take 1 Univ ers 75 mg 5-24 tablet by ity of tablet 16:30: mouth in [place] [address] the Medical morning. Branch donepeziL 2023-0 Yes 10mg Take 1 Univer s 10 mg 5-24 tablet by ity of tablet 16:30: mouth at [place] [address] bedtime. Medical Branch amLODIPine 3-0 Yes 5mg Take 1 Unive rs 5 mg tablet 5-24 tablet by ity of 16:30: mouth in [place] [address] the Medical morning. Branch isosorbide 2023-0 Yes 30mg Take 1 Unive rs dinitrate 5-24 tablet by ity o f 30 mg 16:30: mouth in [place] tablet 45 the Medical morning. Branch levothyroxi 2023-0 Yes 50ug Take 1 Univ ers ne 5-24 tablet by ity of (SYNTHROID) 16:30: mouth in [place] 50 mcg 45 the Medical tablet morning. Branch losartan 2023-0 Yes 100mg Take 1 Univer s (COZAAR) 5-24 tablet by ity of 100 mg 16:30: mouth in [place] tablet 45 the Medical morning. Branch thyroid 15 3-0 3- No 15mg Take 1 Univ ers mg tablet 5-24 05-24 tablet by ity of 12:48: 00:00 mouth in [place] 57 :00 the Medical morning. Branch fenofibrate 2023-0 2023- No 54mg Take 1 Uni vers (TRICOR) 54 5-24 05-24 tablet by it y of mg tablet 12:48: 00:[address] [facility] as 57 :00 the Medical morning. Branch hydroCHLORO 2023-0 3- No 12.5mg Take 1 U nivers thiazide 5-24 05-24 capsule by ity of 12.5 mg 12:48: 00:00 mouth in [place] capsule 57 :00 the Medical morning. Branch hydralAZINE 3-0 Yes 10mg 10 mg, Univ ers (APRESOLINE 5-24 Slow IV ity o f ) injection 02:08: Push, [place] 10 mg 51 Q4HPRN, Medical Starting Branch on Sun08/15/22 at 2108, Until Discontinu ed, Routine, DBP=>10 0; SBP=>160 ampicillin 2022-0 2022- No [id number] 500mg Take 1 Univers 500 mg 08-16- capsule by ity of capsule 00:00: 04:59 mouth [place] 00 :00 every 6 Medical (six) Branch hours for 3 days. ampicillin 2022-0 2022- No [id number] 500mg Take 1 Univers 500 mg 08-16- [...] No 1000mg 1,000 mg, Univers (ROCEPHIN) 08-15 05-29 IV ity of 1,000 mg in 00:00: 23:59 Piggyback, [place] NaCl 0.9% 00 :00 Q24H ABX, Medic al (NS) 100 mL 7 doses, Bran ch MINI-BAG First dose (after last reorder) on Sun08/14/22 at 1900, Last dose on Sun08/20/22 at 1900, Administer over 30 Minutes, 100 mL
Reas on for Anti-Infec tive: Empiric Non-Surgic al Prophylaxi s
Durat ion of therapy: 72 hours lactated 2022-0 2022- No 500mL at 999 Unive rs ringers IV 08-14 05-22 mL/hr, 500 it y of infusion 17:45: 18:18 mL, IV [place] 500 mL 00 :54 Infusion, Medical ONCE, 1 Branch dose, On Sun08/14/22 at 1245, STAT pantoprazol 2022-0 Yes 40mg 40 mg, Univ ers e 08-14 Oral, ity of (PROTONIX) 14:00: DAILY, [place] EC tablet 00 First dose Medi merissa 40 mg on Sun [place] 08/14/22 at 0900, Until Discontinu ed, Routine isosorbide 3-0 Yes 30mg 30 mg, Unive rs dinitrate 08-14 Oral, ity of (ISORDIL) 14:00: DAILY, [place] tablet 30 00 First dose Medi merissa mg on Sun [place] 08/14/22 at 0900, Until Discontinu ed, Routine losartan 3-0 Yes 100mg 100 mg, Unive rs (COZAAR) 08-14 Oral, ity of tablet 100 14:00: DAILY, [place] mg 00 First dose Medical on Sun [place] 08/14/22 at 0900, Until Discontinu ed, Routine DULoxetine 2022-0 Yes 20mg 20 mg, Unive rs (CYMBALTA) 08-14 Oral, ity of capsule 20 14:00: DAILY, [place] mg 00 First dose Medical on [facility] 08/14/22 at 0900, Until Discontinu ed, Routine clopidogreL 2022-0 Yes 75mg 75 mg, Univ ers (PLAVIX) 75 08-14 Oral, ity of mg tablet 14:00: DAILY, [place] 75 mg 00 First dose Medical on [facility] 08/14/22 at 0900, Until Discontinu ed, Routine atorvastati 2022-0 Yes 80mg 80 mg, Univ ers n (LIPITOR) 08-14 Oral, ity of tablet 80 14:00: DAILY, [place] mg 00 First dose Medical on [facility] 08/14/22 at 0900, Until Discontinu ed, Routine amLODIPine 2022-0 Yes 5mg 5 mg, Univer s (NORVASC) 08-14 Oral, ity of tablet 5 mg 14:00: [place]ILY, [place] 00 First dose Medical on [facility] 08/14/22 at 0900, Until Discontinu ed, Routine enoxaparin 3-0 Yes 40mg 40 mg, Unive rs (LOVENOX) 08-14 Subcutaneo ity of injection 14:00: [place], [place]ILY, [place] 40 mg 00 First dose Medical on [facility] 08/14/22 at 0900, Until Discontinu ed, Routine hydroCHLORO 2023-0 2023- No 12.5mg 12.5 mg, Univers thiazide 08-14- Oral, ity of (ESIDRIX) 14:00: 15:48 DAILY, [place] tablet 12.5 00 :16 First dose Me dical mg on [facility] 08/14/22 at 0900, Until Discontinu ed pregabalin Yes 100mg 100 mg, Uni vers (LYRICA) 08-14 Oral, BID, ity o f capsule 100 13:00: First dose [place] mg 00 on [facility] 08/14/22 at Branch 0800, Until Discontinu ed, Routine carvediloL Yes 3.125mg 3.125 mg, Univers (COREG) 08-14 Oral, BID ity of tablet 13:00: MEALS, [place] 3.125 mg 00 First dose Medic al on [facility] 08/14/22 at 0800, Until Discontinu ed, Routine levothyroxi Yes 50ug 50 mcg, Uni vers ne 08-14 Oral, ity of (SYNTHROID) 11:00: QAM-0600, [place] tablet 50 00 First dose Medi merissa mcg on [facility] 08/14/22 at 0600, Until Discontinu ed, Routine gabapentin 2022- No 600mg Take 2 Uni vers (NEURONTIN) 08-14 capsules ity of 300 mg 02:57: 00:00 by mouth [place] capsule 12 :00 in the Medical morning Branch and 2 capsules in the evening. linaCLOtide 2022- No 145ug Take 1 Un amber 145 mcg 08-14 capsule by ity o f capsule 02:57: 00:00 mouth in [place] 12 :00 the Medical morning. Branch acidophilus 2022- No 1{capsu Take 1 Cap Univers -pectin, 08-14 le} by mouth ity of citrus 100 02:57: 00:00 daily. [place] million 12 :00 Medical cell-10 mg Branch Cap coenzyme 2022- No 100mg Take 1 Unive rs Q10 100 mg 08-14 capsule by it y of softgel 02:57: 00:00 mouth in [place] 12 :00 the Medical morning. Branch multivit-mi 2022- No 1{tbl} Take 1 Tab Univers [...] IV Push, ity of (PF)) 02:29: Q6HPRN, [place] injection 4 01 Starting Medi merissa mg on [facility] 08/13/22 at 9, Until Discontinu ed, Routine, Nausea and Vomiting (N/V) acetaminoph Yes 650mg 650 mg, Un amber en 08-14 Oral, ity of (TYLENOL) 02:28: Q6HPRN, [place] tablet 650 39 Starting Medic al mg on [facility] 08/13/22 at 8, Until Discontinu ed, Routine, Pain (scale 1-3) iopamidol 2022- No [id number] 100mL 100 mL, Univers (ISOVUE 08-14 Intravenou ity o f 370-500 mL) 02:00: 02:00 s, ONCE, 1 [place] injection 00 :00 dose, On Medica l 100 mL [facility] 08/13/22 at 2100, Routine cloNIDine 2022- No .1mg 0.1 mg, Univ ers (CATAPRES) 08-14 Oral, ity of tablet 0.1 00:15: 00:30 ONCE, 1 [place] as mg 00 :00 dose, On Medical [facility] 08/13/22 at 1915, STAT cefTRIAXone 2022- No 1000mg 1,000 mg, Univers (ROCEPHIN) 08-14 05-22 IV ity of 1,000 mg in 00:00: 00:45 [facility] [place] NaCl 0.9% 00 :00 ONCE, 1 Medical (NS) 100 mL dose, On Bran ch MINI-BAG 08/13/22 at 1900, Administer over 30 Minutes, 100 mL
Reas on for Anti-Infec tive: Empiric Non-Surgic al Prophylaxi s
Durat ion of therapy: 72 hours NaCl 0.9% 2022- No 500mL at 999 Univ ers (NS) bolus 08-13- mL/hr, 500 it y of infusion 23:15: 01:00 mL, IV [place] 500 mL 00 :00 Infusion, Medical ONCE, 1 Branch dose, On 08/13/22 at 1815, STAT fluticasone 0 Yes [id number] SPRAY 2 Methodi propionate 5-[address] (FLONASE) 00:00: INTO EACH Hos yoan 50 00 NOSTRIL l mcg/actuati EVERY DAY on nasal spray fluticasone 2022-0 Yes [id number] SPRAY 2 Methodi propionate 5-[address] (FLONASE) 00:00: INTO EACH Hos yoan 50 00 NOSTRIL l mcg/actuati EVERY DAY on nasal spray fluticasone 2022-0 Yes [id number] SPRAY 2 Methodi propionate 5-[address] (FLONASE) 00:00: INTO EACH Hos yoan 50 00 NOSTRIL l mcg/actuati EVERY DAY on nasal spray fluticasone 2022-0 Yes [id number] SPRAY 2 Methodi propionate 5-[address] (FLONASE) 00:00: INTO EACH Hos yoan 50 00 NOSTRIL l mcg/actuati EVERY DAY on nasal spray fluticasone 2022-0 Yes [id number] SPRAY 2 Methodi propionate 5-[address] (FLONASE) 00:00: INTO EACH Hos yoan 50 00 NOSTRIL l mcg/actuati EVERY DAY on nasal spray clopidogrel 0 Yes 75mg QD Take 1 Meth mike [...] 25mg QD Take 25 mg Methodi thiazide 2- 12-[address] (HYDRODIURI 10:02: 00:00 daily. Hos yoan L) 25 MG 43 :00 l tablet hydroCHLORO 2021-03 No 25mg QD Take 25 mg Methodi thiazide 2- 12- by mouth st (HYDRODIURI 10:02: 00:00 daily. [...] 25mg QD Take 25 mg Methodi thiazide 2- 12-[address] (HYDRODIURI 10:02: 00:00 daily. Hos yoan L) 25 MG 43 :00 l tablet amIODarone 2021-03 No 100mg QD Take 100 M ethodi (PACERONE) 2- 12- mg by st 200 MG 10:01: 00:00 [...] 5 mg M ethodi (NORVASC) 5 -10 04- by mouth st mg tablet 10:00: 00:00 daily. Hospi ta 51 :00 l amLODIPine 2021-03- No 5mg QD Take 5 mg M ethodi (NORVASC) 5 -10 04- by mouth st mg tablet 10:00: 00:00 daily. Hospi ta 51 :00 l amLODIPine 2021-03- No 5mg QD Take 5 mg M ethodi (NORVASC) 5 05-[address] mg tablet 10:00: 00:00 daily. Hospi ta 51 :00 l amLODIPine 2021-03- No 5mg QD Take 5 mg M ethodi (NORVASC) 5 05-[address] mg tablet 10:00: 00:00 daily. [facility] ta 51 :00 l amLODIPine 2021-03- No 5mg QD Take 5 mg M ethodi (NORVASC) 5 05-[address] mg tablet 10:00: 00:00 daily. [facility] ta 51 :00 l amLODIPine 2021-03- No 5mg QD Take 5 mg M ethodi (NORVASC) 5 05-[address] mg tablet 10:00: 00:00 daily. [facility] ta 51 :00 l losartan 2021-03- No [...] 100mg QD Take 1 Metho di (COZAAR) 2-07 12-[address] 100 MG 10:00: 00:00 (100 mg Hospita tablet 35 :00 total) by l mouth daily. fluticasone 2021-03 Yes [id number] 100ug QD 2 sprays Methodi propionate 05-02 ([address] (FLONASE) 00:00: total) by Hos yoan 50 00 Each Nare l mcg/actuati route on nasal daily. spray losartan 2021-03 Yes 100mg QD Take 1 Method i (COZAAR) 2-[address] 100 MG 00:00: (100 mg Hospita tablet 00 total) by l mouth daily. fluticasone 2021-03 Yes [id number] 100ug QD 2 sprays Methodi propionate 05-02 [...] total) by l mouth daily. fluticasone 2021-03 No [id number] 100ug QD 2 sprays Methodi propionate 2- 05-15 ([address] (FLONASE) 00:00: 00:00 total) by Ho spita 50 00 :00 Each Nare l mcg/actuati route on nasal daily. spray fluticasone 2021-03- No [id number] 100ug QD 2 sprays Methodi propionate 2- 05-15 ([address] (FLONASE) 00:00: 00:00 total) by Ho spita 50 00 :00 Each Nare l mcg/actuati route on nasal daily. spray fluticasone 2021-03- No [id number] 100ug QD 2 sprays Methodi propionate 2- 05-15 ([address] (FLONASE) 00:00: 00:00 total) by Ho spita 50 00 :00 Each Nare l mcg/actuati route on nasal daily. spray fluticasone 2021-03- No [id number] 100ug QD 2 sprays Methodi propionate 2- 05-15 ([address] (FLONASE) 00:00: 00:00 total) by Ho spita 50 00 :00 Each Nare l mcg/actuati route on nasal daily. spray fluticasone 2021-03- No [id number] 100ug QD 2 sprays Methodi propionate 2- 05-15 ([address] (FLONASE) 00:00: 00:00 total) by Ho spita 50 00 :00 Each Nare l mcg/actuati route on nasal daily. spray valACYclovi 2021-03 Yes 500mg QD TAKE 1 Met hodi r (VALTREX) [address] 500 MG 00:00: (500 MG [...] l COCONUT OIL 2021-03 No Take by Ri thodi ORAL 04-01 [...] Daily Amount: 4 tablets oxyCODone-a 2021-03- No [id number] 1{tbl} Q6H Take 1 Methodi cetaminophe 04-01 [...] 2021-0 Yes 80mg QD Take 1 Meth miek n (LIPITOR) 9-30 tablet (80 st 80 [...] tablet 00 by mouth l daily. levothyroxi 2021-2021- No 88ug QD Take 1 Met hodi [...] by mouth l tablet every morning. levothyroxi 2021-2021- No 88ug QD Take 1 Met hodi [...] 25mg QD Take 25 mg Methodi thiazide 12-[address] (HYDRODIURI 09:45: daily. Hosp dinora L) 25 MG 48 l tablet amIODarone 2021-0 Yes 100mg QD Take 100 Me thodi (PACERONE) 9-[address] 200 MG 09:45: mouth Hospita tablet 48 daily. l carvediloL 2-0 Yes 3.125mg Q.5D Take 3.125 Methodi (COREG) 9-[address] 3.125 MG 09:45: mouth 2 Hospit a tablet 48 (two) l times a day with meals. donepeziL 2-0 Yes 5mg QD Take 5 mg Met hodi (ARICEPT) 5 9-[address] MG tablet 09:45: nightly. Hosp dinora 48 l cyanocobala Yes Take by Met lalii min, 12-[address] vitamin 09:45: Hospita B-12, 48 l (VITAMIN B-12 ORAL) COCONUT OIL Yes Take by Met hodi ORAL 12-[address] 09:45: Hospita 48 l pantoprazol 0 2021- No TAKE 1 Met hodi e 8-24 10-[address] (PROTONIX) 00:00: 00:00 MOUTH Hospi ta 20 MG EC 00 :00 EVERY DAY l tablet pantoprazol 2021- No TAKE 1 Met hodi e [...] solution latanoprost 2021- No Metho di (XALATAN) 10-0715 st 0.005 % 11:20: 00:00 Hospita ophthalmic 36 :00 l solution latanoprost 2021- No Metho di (XALATAN) 10-0715 st 0.005 % 11:20: 00:00 Hospita ophthalmic 36 :00 l solution latanoprost 2021- No Metho di (XALATAN) 10-0715 st 0.005 % 11:20: 00:00 Hospita ophthalmic 36 :00 l solution polyethylen 2021- No 17g QD Take 17 g [...] QD Take 20 mg Methodi e 5-25 -[address] (PROTONIX) 00:00: 00:00 daily. Hosp dinora 20 MG EC 00 :00 l tablet pantoprazol 2022-0 2022- No 20mg QD Take 20 mg Methodi e 5-25 -[address] (PROTONIX) 00:00: 00:00 [...] :00 outbreak l pregabalin 2021- No 50mg [id number] Take 50 mg Methodi (LYRICA) 50 03-31 [id number] [address] mouth [address] MG capsule 09:42: [...] QD Take 1 M ethodi NE (COQ-10 1-06 01-[address] ORAL) 09:25: 00:00 mouth Hospita 51 :00 daily. l pregabalin 2022-0 Yes 50mg QD Take 1 Metho di (LYRICA) 50 1-[address] MG capsule 00:00: (50 mg Hospi ta 00 total) by l mouth nightly. pregabalin 2022-0 Yes 50mg QD Take 1 Metho di (LYRICA) 50 1-[address] MG capsule 00:00: (50 mg Hospi ta 00 total) by l mouth nightly. pregabalin 2022-0 Yes 50mg QD Take 1 Metho di (LYRICA) 50 1-[address] MG capsule 00:00: (50 mg Hospi ta 00 total) by l mouth nightly. pregabalin 2022-0 Yes 50mg QD Take 1 Metho di (LYRICA) 50 1-[address] MG capsule 00:00: (50 mg Hospi ta 00 total) by l mouth nightly. pregabalin 2022-0 Yes 50mg QD Take 1 Metho di (LYRICA) 50 1-[address] MG capsule 00:00: (50 mg Hospi ta 00 total) by l mouth nightly. pregabalin 2-0 Yes 50mg QD Take 1 Metho di (LYRICA) 50 1-[address] MG capsule 00:00: (50 mg Hospi ta 00 total) by l mouth nightly. pregabalin 2022-0 Yes 50mg QD Take 1 Metho di (LYRICA) 50 1-[address] MG capsule 00:00: (50 mg Hospi ta 00 total) by l mouth nightly. pregabalin 2-0 3- No 50mg QD Take 1 Meth mike (LYRICA) 50 1-06 -[address] MG capsule 00:00: 05:59 (50 mg Hosp dinora 00 :00 total) by l mouth nightly. levothyroxi 2020-03- No TAKE 1 Met hodi ne 05-03- TABLET BY st (SYNTHROID) 00:00: 00:00 MOUTH [...] #3) 300-30 mg per tablet diclofenac Yes [id number] APPLY 2 Methodi (VOLTAREN) 4-[address] 1 % gel 00:00: RIGHT KNEE Hosp dinora 00 4 TIMES A l DAY NEEDED FOR PAIN diclofenac 2021- No [id number] APPLY 2 Methodi (VOLTAREN) 4-26 11-[address] 1 % gel 00:00: 00:00 RIGHT KNEE Hos yoan 00 :00 4 TIMES A l DAY NEEDED FOR PAIN diclofenac 2021- No [id number] APPLY 2 Methodi (VOLTAREN) 4- 11-[address] 1 % gel 00:00: 00:00 RIGHT KNEE Hos yoan 00 :00 4 TIMES A l DAY NEEDED FOR PAIN diclofenac 2021- No [id number] APPLY 2 Methodi (VOLTAREN) 4-26 11-[address] 1 % gel 00:00: 00:00 [facility]NEE [facility] 00 :00 4 TIMES A l DAY NEEDED FOR PAIN diclofenac 2021- No [id number] APPLY 2 [facility] (VOLTAREN) 4-26 11-[address] 1 % gel 00:00: 00:00 RIGHT KNEE Hos yoan 00 :00 4 TIMES A l DAY NEEDED FOR PAIN diclofenac 2021- No [id number] APPLY 2 [facility] (VOLTAREN) 4-26 11-[address] 1 % gel 00:00: 00:00 RIGHT KNEE Hos yoan 00 :00 4 TIMES A l DAY NEEDED FOR PAIN potassium 2019-03- No TAKE 1 [facility] di chloride 003-[address] (K-DUR) 20 00:00: 00:00 MOUTH Hospi ta MEQ CR 00 :00 EVERY DAY l tablet Apixaban No 2.5mg [facility] (Eliquis) 09-24 st 2.5 Mg TAB 12:37: Louisia 00 na LIVE HCIS Apixaban No 2.5mg Twice A ANNIKA TU (Eliquis) [...] 00:00: mouth [facility]osp[facility] tablet 00 daily. l multivit-dc 2011-03 Yes 1{tbl} QD Take 1 Me thodi neral-iron- 1-[address] lutein 00:00: mouth [facility]osp[facility] tablet 00 daily. l multivit-mi 2011-03 Yes 1{tbl} QD Take 1 Me thodi neral-iron- 1-[address] lutein 00:00: mouth [facility] tablet 00 daily. l multivit-dc 2011-03 Yes 1{tbl} QD Take 1 Me thodi neral-iron- 1-[address] lutein 00:00: mouth [facility]osp[facility] tablet 00 daily. l multivit-mi 2011-03 Yes 1{tbl} QD Take 1 Me thodi neral-iron- 1-[address] lutein 00:00: mouth [facility]osp[facility] tablet 00 daily. l multivit-dc 2011-03 Yes 1{tbl} QD Take 1 Me thodi neral-iron- 1-[address] lutein 00:00: mouth [facility]osp[facility] tablet 00 daily. l multivit-dc 2011-03 Yes 1{tbl} QD Take 1 Me thodi neral-iron- 1-[address] lutein 00:00: mouth [facility]osp[facility] tablet 00 daily. l multivit-dc 2011-03 Yes 1{tbl} QD Take 1 Me [...] l mcg (800 unit) tablet,chew able calcium 2012-1 2022- No 1{tbl} QD Chew 1 Meth[facility] di carbonate-v 1-26 07-[address] itamin D3 00:00: 00:00 [...] ce Name Immunization Name Tdap 2022-01-19 [facility]pleted [facility]00 [facility] Tdap 2022-01-19 Completed [facility] 00:00:00 [facility] Td 2022-01-19 Completed [facility] 00:00:00 [facility] FLUZONE HIGH-DOSE PF 2021-12-15 Completed [facility] 00:00:00 [facility] FLUZONE HIGH-DOSE PF 2021-12-15 Completed [facility] 00:00:00 [facility] FLUZONE HIGH-DOSE PF 2021-12-15 Completed [facility] 00:00:00 [facility] FLUZONE HIGH-DOSE PF 2021-03-31 Completed [facility] 00:00:00 [facility] FLUZONE HIGH-DOSE PF 2021-03-31 Completed [facility] 00:00:00 [facility] FLUZONE HIGH-DOSE PF 2021-03-31 Completed [facility] 00:00:00 [facility] FLUZONE HIGH-DOSE PF 2021-03-31 Completed [facility] [place]:00:[place] [id number] 2021-02-02 Completed [facility] MRNA VACCINATION 00:00:00 [place] [id number] 2021-02-02 Completed [facility] MRNA VACCINATION 00:00:00 [place] [id number] 2021-02-02 Completed [facility] MRNA VACCINATION 00:00:00 [place] [id number] 2021-02-02 Completed [facility] MRNA VACCINATION 00:00:00 [facility] FLUZONE HIGH-DOSE PF 2020-12-21 Completed [facility] 00:00:00 [facility] FLUZONE HIGH-DOSE PF 2020-12-21 Completed [facility] 00:00:00 [facility] FLUZONE HIGH-DOSE PF 2020-12-21 Completed [facility] 00:00:00 [facility] FLUZONE HIGH-DOSE PF 2020-12-21 Completed [facility] 00:00:00 [place] [id number] 2020-05-27 Completed [facility] MRNA VACCINATION 00:00:00 [place] [id number] 2020-05-27 Completed [facility] MRNA VACCINATION 00:00:00 [place] [id number] 2020-05-27 Completed [facility] MRNA VACCINATION 00:00:00 [place] [id number] 2020-05-27 Completed [facility] MRNA VACCINATION 00:00:00 [place] [id number] 2020-05-27 Completed [facility] MRNA VACCINATION 00:00:00 [place] [id number] 2020-05-27 Completed [facility] MRNA VACCINATION 00:00:00 [place] [id number] 2020-05-27 Completed [facility] MRNA VACCINATION 00:00:00 [place] [id number] 2020-05-27 Completed [facility] MRNA VACCINATION 00:00:00 [place] [id number] 2020-05-01 Completed [facility] MRNA VACCINATION 00:00:00 [place] [id number] 2020-05-01 Completed [facility] MRNA VACCINATION 00:00:00 [facility] BIANCAJoão 2020-05-01 Completed [facility] MRNA VACCINATION 00:00:00 [facility] BIANCAJoão 2020-05-01 Completed [facility] MRNA VACCINATION 00:00:00 [facility] BIANCAJoão 2020-05-01 Completed [facility] 00:00[facility] VACCINATION 00:00:00 [facility] 2020[facility]01 Com[facility] MRNA VACCINATION 00:00:00 [facility] 2020[facility]01 Completed [facility] MRNA VACCINATION 00:00:00 [facility] FLUZONE HIGH-DOSE PF 2019-11-25 Completed [facility] 00:00:00 [facility] Pneumococcal 2019-11-25 Completed [facility] Polysaccharide 00:00:00 [facility] FLUZONE HIGH-DOSE PF 2019-11-25 Completed [facility] 00:00:00 Hospital Pneumococcal 2019-11-25 Completed [facility] Polysaccharide 00:00:00 [facility] FLUZONE HIGH-DOSE PF 2019-11-25 Completed [facility] 00:00:00 Hospital Pneumococcal 2019-11-25 Completed [facility] Polysaccharide 00:00:00 [facility] FLUZONE HIGH-DOSE PF 2019-11-25 Completed [facility] 00:00:00 Hospital Pneumococcal 2019-11-25 Completed [facility] Polysaccharide 00:00:00 [facility] Td, Unspecified 2018-01-20 Completed [facility] 00:[facility] Td, Unspecified 2018-01-20 [facility]pleted [facility] 00:[facility] Td, Unspecified 2018-01-20 [facility]pleted [facility] 00:[facility]00 [facility] Td, Unspecified 2018-01-20 Completed [facility] 00:00:00 [facility] FLUZONE HIGH-DOSE PF 2017-11-08 Completed [facility] 00:00:00 Hospital FLUZONE HIGH-DOSE PF 2017-11-08 Completed [facility] 00:00:00 Hospital FLUZONE HIGH-DOSE PF 2017-11-08 Completed [facility] 00:00:00 [facility] FLUZONE HIGH-DOSE PF 2017-11-08 Completed [facility] 00:00:00 [facility] FLUZONE HIGH-DOSE PF 2016-11-30 Completed [facility] od[facility] [...] [facility] 00:00:00 Hospital Pneumococcal 2015-05-26 Completed [facility] Conjugate 13-Valent 00:00:00 [facility] Pneumococcal 2015-05-26 Completed [facility] Conjugate 13-Valent 00:00:00 [facility] Pneumococcal 2015-05-26 Completed [facility] Conjugate 13-Valent 00:00:00 [facility]pi [facility]olas Pneumococcal 2015-05-26 Completed [facility] 2014-12-25 Completed [facility] 00:00:00 Hospital Influenza Trivalent 2014-12-25 Completed [facility] 00:00:00 Hospital FLUZONE HIGH-DOSE PF 2014-12-25 Completed [facility] 00:00:00 Hospital Influenza Trivalent 2014-12-25 Completed [facility] 00:00:00 Hospital FLUZONE HIGH-DOSE PF 2014-12-25 Completed [facility] 00:00:00 Hospital Influenza Trivalent 2014-12-25 Completed [facility] 00:00:00 Hospital FLUZONE HIGH-DOSE PF 2014-12-25 Completed [facility] 00:00:00 Hospital Zoster 2014-02-03 Completed [facility] Zoster 2014-02-03 Completed [facility]00 [facility] Zoster 2014-02-03 Completed [facility] 00:[facility]00 [facility] Zoster 2014-02-03 Completed [facility] 00:[facility]:00 [facility] Influenza Trivalent 2013-12-17 Completed [facility] 00:00:00 Hospital Influenza Trivalent 2013-12-17 Completed [facility] 00:00:00 Hospital FLUZONE HIGH-DOSE PF 2013-12-17 Completed [facility] 00:00:00 Hospital Influenza Trivalent 2013-12-17 Completed [facility] 00:00:00 Hospital FLUZONE HIGH-DOSE PF 2013-12-17 Completed [facility] 00:00:00 Hospital Influenza Trivalent 2013-12-17 Completed [facility] 00:00:00 [facility] FLUZONE HIGH-DOSE PF 2013-12-17 Completed [facility] 00:00:00 Hospital Influenza Trivalent 2012-12-10 Completed [facility] 00[facility]00:00 Hospital Influenza Trivalent 2012-12-10 Completed [facility] 00:00:00 Hospital Influenza Trivalent 2012-12-10 Completed [facility] 00:00:00 Hospital Influenza Trivalent 2012-12-10 Completed [facility] 00:00:00 Hospital TD (ADULT), 5 2008-07-29 Completed [facility] TETANUS TOXOID, 00:00:00 Hospital PRESERVATIVE FREE, ABSORBED TD (ADULT), 5 2008-07-29 Completed [facility] TETANUS TOXOID, 00:00:00 Hospital PRESERVATIVE FREE, ABSORBED TD (ADULT), 5 2008-07-29 Completed [facility] TETANUS TOXOID, 00:00:00 Hospital PRESERVATIVE FREE, ABSORBED TD (ADULT), 5 2008-07-29 Completed [facility] TETANUS TOXOID, 00:00:00 Hospital PRESERVATIVE FREE, ABSORBED Pneumococcal 2001-03-06 Completed [facility] Polysaccharide 00:00:00 [facility] Pneumococcal 2001-03-06 Completed [facility] Polysaccharide 00:00:00 [facility] Pneumococcal 2001-03-06 Completed [facility] Polysaccharide 00:00:00 [facility] Pneumococcal 2001-03-06 Completed [facility] Polysaccharide 00:00:00 Hospital Influenza Trivalent Unknown Completed [facility] Influenza Trivalent Unknown Completed [facility] Pneumococcal Unknown Completed [facility] Conjugate 13-Valent Hospi nicolas Pneumococcal Unknown Completed [facility] Polysaccharide [facility] TD (ADULT), 5 LF Unknown Completed [facility] TETANUS TOXOID, Hospital PRESERVATIVE FREE, ABSORBED Zoster Unknown Completed [facility] Influenza Trivalent Unknown Completed [facility] FLUZONE HIGH-DOSE PF Unknown Completed [facility] FLUZONE HIGH-DOSE PF Unknown Completed Meth [facility] Pneumococcal Unknown Completed [facility] Polysaccharide [facility] MODERNA COVID-19 Unknown Completed [facility] MRNA VACCINATION [facility] MODERNA COVID-19 Unknown Completed [facility] MRNA VACCINATION [facility] FLUZONE HIGH-DOSE PF Unknown Completed Meth odist [facility] FLUZONE HIGH-DOSE PF Unknown Completed [facility] Td, Unspecified Unknown Completed [facility] COVID-19 Unknown Completed [facility] MRNA VACCINATION [facility] COVID-19 Unknown Completed [facility] MRNA VACCINATION [facility] FLUZONE HIGH-DOSE PF Unknown Completed [facility] COVID-19 Unknown Completed [facility] MRNA VACCINATION [facility] FLUZONE HIGH-DOSE PF Unknown Completed [facility] FLUZONE HIGH-DOSE PF Unknown Completed [facility] FLUZONE HIGH-DOSE PF Unknown Completed [facility] FLUZONE HIGH-DOSE PF Unknown Completed [facility] Tdap Unknown Completed [facility] Influenza Trivalent Unknown Completed [facility] Influenza Trivalent Unknown Completed [facility] Pneumococcal Unknown Completed [facility] Conjugate 13-Valent Hospi [facility] Pneumococcal Unknown Completed [facility] TD (ADULT), 5 LF Unknown Completed [facility] TETANUS TOXOID, Hospital PRESERVATIVE FREE, ABSORBED Zoster Unknown Completed [facility] Influenza Trivalent Unknown Completed [facility] FLUZONE HIGH-DOSE PF Unknown Completed [facility] FLUZONE HIGH-DOSE PF Unknown Completed [facility] Pneumococcal Unknown Completed [facility] COVID-19 Unknown Completed [facility] MRNA VACCINATION [facility] COVID-19 Unknown Completed [facility] MRNA VACCINATION [facility] FLUZONE HIGH-DOSE PF Unknown Completed [facility] FLUZONE HIGH-DOSE PF Unknown Completed [facility] Td, Unspecified Unknown Completed [facility] COVID-19 Unknown Completed [facility] MRNA VACCINATION [facility] COVID-19 Unknown Completed [facility] MRNA VACCINATION [facility] FLUZONE HIGH-DOSE PF Unknown Completed [facility] COVID-19 Unknown Completed [facility] MRNA VACCINATION [facility] FLUZONE HIGH-DOSE PF Unknown Completed [facility] FLUZONE HIGH-DOSE PF Unknown Completed [facility] FLUZONE HIGH-DOSE PF Unknown Completed [facility] FLUZONE HIGH-DOSE PF Unknown Completed [facility] Tdap Unknown Completed [facility] Influenza Trivalent Unknown Completed [facility] Influenza Trivalent Unknown Completed [facility] Pneumococcal Unknown Completed [facility] Conjug[facility] 13-Valent [facility] Pneumococcal Unknown Completed [facility] TD (ADULT), 5 LF Unknown Completed [facility] TETANUS TOXOID, Hospital PRESERVATIVE FREE, ABSORBED Zoster Unknown Completed [facility] Influenza Trivalent Unknown Completed [facility] FLUZONE HIGH-DOSE PF Unknown Completed [facility] FLUZONE HIGH-DOSE PF Unknown Completed [facility] Pneumococcal Unknown Completed [facility] COVID- Unknown Completed [facility] MRNA VACCINATION [facility] COVID Unknown Completed [facility] MRNA VACCINATION [facility] FLUZONE HIGH-DOSE PF Unknown Completed [facility] FLUZONE HIGH-DOSE PF Unknown Completed [facility] Td, Unspecified Unknown Completed [facility] COVID- Unknown Completed [facility] MRNA VACCINATION [facility] COVID Unknown Completed [facility] MRNA VACCINATION [facility] FLUZONE HIGH-DOSE PF Unknown Completed [facility] COVID Unknown Completed [facility] MRNA VACCINATION [facility] FLUZONE HIGH-DOSE PF Unknown Completed [facility] FLUZONE HIGH-DOSE PF Unknown Completed [facility] FLUZONE HIGH-DOSE PF Unknown Completed [facility] FLUZONE HIGH-DOSE PF Unknown Completed [facility] Tdap Unknown Completed [facility] Influenza Trivalent Unknown Completed [facility] Influenza Trivalent Unknown Completed [facility] Pneumococcal Unknown Completed [facility] Conjugate [facility] Pneumococcal Unknown Completed [facility] TD (ADULT), 5 LF Unknown Completed [facility] TETANUS TOXOID, Hospital PRESERVATIVE FREE, ABSORBED Zoster Unknown Completed [facility] Influenza Trivalent Unknown Completed [facility] FLUZONE HIGH-DOSE PF Unknown Completed [facility] FLUZONE HIGH-DOSE PF Unknown Completed [facility] Pneumococcal Unknown Completed [facility] COVID- Unknown Completed [facility] MRNA VACCINATION [facility] COVID Unknown Completed [facility] MRNA VACCINATION [facility] FLUZONE HIGH-DOSE PF Unknown Completed [facility] FLUZONE HIGH-DOSE PF Unknown Completed [facility] Td, Unspecified Unknown Completed [facility] COVID-19 Unknown Completed [facility] MRNA VACCINATION [facility] COVID Unknown Completed [facility] MRNA VACCINATION [facility] FLUZONE HIGH-DOSE PF Unknown Completed [facility] COVID- Unknown Completed [facility] MRNA VACCINATION [facility] FLUZONE HIGH-DOSE PF Unknown Completed [facility] FLUZONE HIGH-DOSE PF Unknown Completed [facility] FLUZONE HIGH-DOSE PF Unknown Completed [facility] FLUZONE HIGH-DOSE PF Unknown Completed [facility] Tdap Unknown Completed [facility] Vital Signs Vital Name Observation Time Observation Value Comments Source Oxygen saturation in 2022-08-16 20:47:00 96 /min [facility] Arterial blood by [facility] Pulse oximetry Branch Systolic blood 2022-08-16 20:47:00 102 mm[Hg] Univer sity of pressure [facility] Diastolic blood 2022-08-16 20:47:00 49 mm[Hg] Unive rsity of [facility] Heart rate 2022-08-16 20:47:00 61 /min [facility] Body temperature 2022-08-16 20:47:00 36.33 Constance [facility] Respiratory rate 2022-08-16 20:47:00 18 /min [facility] Body weight 2022-08-16 09:13:00 51.483 kg [facility] BMI 2022-08-16 09:13:00 21.45 kg/m2 [facility] Body height 2022-08-13 22:34:00 154.9 cm [facility] Systolic blood 2022-03-01 15:41:00 177 mm[Hg] Method [facility] pressure Diastolic blood 2022-03-01 15:41:00 75 mm[Hg] [facility] pressure Heart rate 2022-03-01 15:41:00 53 /min [facility] Body temperature 2022-03-01 15:41:00 36.72 Constance [facility] Body height 2022-03-01 15:41:00 152.4 cm [facility] Body weight 2022-03-01 15:41:00 52.708 kg [facility] BMI 2022-03-01 15:41:00 22.69 kg/m2 [facility] Oxygen saturation in 2022-03-01 15:41:00 96 /min [facility] Arterial blood by Pulse oximetry Respiratory rate 2022-01-30 19:19:00 20 /min [facility] Systolic blood 2021-12-21 15:38:00 174 mm[Hg] Method [facility] pressure Diastolic blood 2021-12-21 15:38:00 66 mm[Hg] [facility] pressure Heart rate 2021-12-21 14:42:00 60 /min [facility] Body temperature 2021-12-21 14:42:00 36.33 Constance [facility] Respiratory rate 2021-12-21 14:42:00 16 /min [facility] Body height 2021-12-21 14:42:00 152.4 cm [facility] Body weight 2021-12-21 14:42:00 52.164 kg [facility] BMI 2021-12-21 14:42:00 22.46 kg/m2 [facility] Oxygen saturation in 2021-12-21 14:42:00 98 /min [facility] Arterial blood by Pulse oximetry Body Temperature 2019-09-25 11:40:00 97.2 [degF] [place] [facility] Rate 2019-09-25 11:40:00 63 /min [employer] [facility] Respiratory rate 2019-09-25 11:40:00 18 /[facility] Systolic 2019-09-25 11:40:00 94 mm[Hg] [employer] [facility] BP Diastolic 2019-09-25 11:40:00 43 mm[Hg] [facility] [facility] Weight 2019-09-25 06:07:00 122 [lb_av] [employer] [facility] BMI (Body Mass 2019-09-25 06:07:00 24.6 kg/m2 [facility] Health Index) Heart Rate 2019-09-25 03:06:00 87 /min [employer] Respiratory rate 2019-09-25 03:06:00 21 /min [facility] BP Systolic 2019-09-25 03:06:00 160 mm[Hg] [employer] [facility] BP Diastolic 2019-09-25 03:06:00 93 mm[Hg] [facility] [facility] Procedures Procedure Date / Time Performing Clinician Source Performed COVID-19 (ID NOW RAPID 2022-08-16 15:16:00 Marissa Jackson [facility] TESTING) Medical Branch THYROID STIMULATING 2022-08-14 09:09:00 Diane Corrigan [facility] HORMONE Medical Branch BASIC METABOLIC PANEL (NA, 2022-08-14 09:09:00 Zora Landry [facility] K, CL, CO2, GLUCOSE, BUN, Medica l Branch CREATININE, CA) CBC WITH DIFF 2022-08-14 09:09[facility]EL[facility] W 2022-08-14 01:05:23 Nicolas Sims [facility] URINE CULTURE 2022-08-14 00:15:00 Singer [facility] FREE T4 2022-08-14 00:01:00 Ethan Diane [facility] COMP. METABOLIC PANEL 2022-08-14 00:01:00 Nicolas Sims [facility] ([id number]) [facility] CT CERVICAL SPINE WO 2022-08-13 23:30:19 Nicolas Sims [facility] CT HEAD WO CONTRAST 2022-08-13 23:29:57 Nicolas Sims [facility] XR CHEST 1 VW 2022-08-13 23:28:[address] [facility] BLOOD CULTURE SCREEN 2022-08-13 23:13:00 Nicolas Sims [facility] TROPONIN I 2022-08-13 23:13:[address] [facility] SALICYLATE 2022-08-13 23:13:[address] [facility] ETHANOL 2022-08-13 23:13:[address] [facility] URINE DRUG (IMMUNOASSAY) - 2022-08-13 23:13:00 Nicolas Sims [facility] COMPREHENSIVE DRUG SCREEN Medica Branch CBC WITH DIFF 2022-08-13 23:13:[address] [facility] URINALYSIS 2022-08-13 23:13:[address] [facility] RAPID INFLUENZA A/B 2022-08-13 23:13:00 Nicolas Sims [facility] N-TERMINAL PRO-BNP 2022-08-13 23:13:00 Nicolas Sims [facility] COVID-19 (ID NOW RAPID 2022-08-13 23:13:00 Nicolas Sims [facility]) Medical Branch LAB ONLY COVID 2022-08-13 23:13:00 Nicolas Sims [facility] HB ECG ROUTINE & RHYTHM 2022-08-13 22:48:19 [facility] AR[facility] 2022-06-21 14:30:00 Adrianna Miranda [facility] ASPIR&/INJ MAJOR JT/BURSA W/O US OPERATION, KNEE, 2022-01-30 17:05:00 Adrianna Miranda H ospital ARTHROSCOPIC POC GLUCOSE 2022-01-30 16:15:00 Adrianna Miranda spital MD AN ELECTIVE 2022-01-30 15:04:00 Collin Farooq [facility] SUPRAGLOTTIC AIRWAY OPERATION, KNEE, 2022-01-30 14:59:00 Adrianna Miranda H [facility]spital ARTHROSCOPIC POC PANEL 2022-01-30 14:11:00 Adrianna Miranda spital MAMMO BREAST SCREEN 2021-12-28 14:46:00 [facility] TOMOSYNTHESIS BILATERAL [place] CBC WITH PLATELET AND 2021-12-22 12:45:00 [facility] DIFFERENTIAL [place] THYROID STIMULATING 2021-12-22 12:45:00 [facility] HORMONE [place] COMPREHENSIVE METABOLIC 2021-12-22 12:45:00 [facility] PANEL [place] URINALYSIS, AUTOMATED WITH 2021-12-22 12:45:00 [facility] MICROSCOPY [place] LIPID PANEL 2021-12-22 12:45:00 [facility] [place] HEMOGLOBIN A1C 2021-12-22 12:45:00 [facility] [place] VITAMIN D 25 HYDROXY LEVEL 2021-12-22 12:45:00 [facility] CBC WITH PLATELET AND 2021-12-22 12:45:00 [facility] DIFFERENTIAL [place] MD ARTHROCENTESIS 2021-12-21 13:50:00 Adrianna Miranda [facility] ASPIR&/INJ MAJOR JT/BURSA W/O US MRI KNEE WO CONTRAST LEFT 2021-12-14 14:15:00 Adrianna Miranda [facility] XR KNEE 1 OR 2 VW 2021-09-28 19:41:49 Adrianna Miranda [facility] BILATERAL MD ARTHROCENTESIS 2021-09-28 19:30:00 Adrianna Miranda [facility] ASPIR&/INJ MAJOR JT/BURSA W/O US THYROID STIMULATING 2021-03-31 15:55:00 [facility] HORMONE [place] HSV 1 AND 2 SPECIFIC AB 2021-03-31 15:55:00 [facility] IGG [place] Transthoracic two 2019-09-25 00:00:00 [facility] dimensional echocardiography with color Doppler imaging and contrast Myocrd Strain Img Speckl 2019-09-25 00:00:00 [facility] Track X-ray of chest, single 2019-09-24 00:00:00 [facility] view ECG (electrocardiogram) 2019-09-24 00:00:00 [facility] 12 lead ECG interpretation 2019-09-24 00:00:00 [facility] [id number] 2019-08-06 00:00:00 [facility] [id number] 2019-08-06 00:00:00 [facility] [id number] 2019-08-06 00:00:00 [facility] [id number] 2019-08-06 00:00:00 [facility] [id number] 2019-08-06 00:00:00 [facility] Plan of Care Planned Activity Planned Date Details Comments Source Future Scheduled Test 2023-02-06 SHINGLES VACCINES (2 [facility] 09:41:42 of 3) [code = SHINGLES VACCINES (2 of 3)] Future Scheduled Test 2023-02-06 COVID-19 VACCINE (6 [facility] 09:41:42 ) [code = COVID-19 VACCINE ( - 2023-24 season)] Future Scheduled Test 2023-02-[address] [facility] 09:41:42 (#1) [code = INFLUENZA VACCINE (#1)] Future Scheduled Test 2023-01-31 SHINGLES VACCINES (2 [facility] 12:07:14 of 3) [code = SHINGLES VACCINES (2 of 3)] Future Scheduled Test 2023-01-31 COVID-19 VACCINE (6 [facility] [facility] 12:07:14 season) [code = COVID-19 VACCINE ( - season)] Future Scheduled Test 2023-01-[address] [facility] 12:07:14 (#1) [code = INFLUENZA VACCINE (#1)] Future Scheduled Test 2023-01-26 SHINGLES VACCINES (2 [facility] 16:12:37 of 3) [code = SHINGLES VACCINES (2 of 3)] Future Scheduled Test 2023-01-26 COVID-19 VACCINE ([address] [place] [address] 16:12:37 season) [code = COVID-19 VACCINE ( - season)] Future Scheduled Test 2023-01-[address] [facility] 16:12:37 (#1) [code = INFLUENZA VACCINE (#1)] Future Scheduled Test 2023-01-19 SHINGLES VACCINES (2 [facility] 14:39:55 of 3) [code = SHINGLES VACCINES (2 of 3)] Future Scheduled Test 2023-01-19 COVID-19 VACCINE ([address] [place] [address] 14:39:55 season) [code = COVID-19 VACCINE ( - season)] Future Scheduled Test 2023-01-[address] [facility] 14:39:55 (#1) [code = INFLUENZA VACCINE (#1)] Future Scheduled Test 2022-09-14 SHINGLES VACCINES (2 [facility] 11:02:15 of 3) [code = SHINGLES VACCINES (2 of 3)] Future Scheduled Test 2022-09-14 COVID-19 VACCINE ([address] [place] [address] 11:02:15 Moderna series) [code = COVID-19 VACCINE (6 - Moderna series)] Future Scheduled Test 2022-09-[address] [facility] 11:02:15 [code = INFLUENZA VACCINE] Future Scheduled Test 2022-07-07 SHINGLES VACCINES (1 [facility] 12:32:59 of 2) [code = SHINGLES VACCINES (1 of 2)] Future Scheduled Test 2022-07-[address] [facility] 12:32:59 [code = INFLUENZA VACCINE] Future Scheduled Test 2022-04-27 SHINGLES VACCINES (1 [facility] 10:59:44 of 2) [code = SHINGLES VACCINES (1 of 2)] Future Scheduled Test 2022-01-19 HEPATITIS B VACCINES [facility] 18:11:59 (1 of 3 - 3-dose series) [code = HEPATITIS B VACCINES (1 of 3 - 3-dose series)] Future Scheduled Test 2022-01-19 SHINGLES VACCINES (1 [facility] 18:11:59 of 2) [code = SHINGLES VACCINES (1 of 2)] Future Scheduled Test 2022-01-19 COVID-19 VACCINE (4 - [facility] 18:11:59 Booster for Moderna series) [code = COVID-19 VACCINE (4 - Booster for Moderna series)] Future Scheduled Test Serum or plasma [facility] cardiac troponin I [place] LIVE measurement HCIS (mass/volume) [code = 77763-2] Instructions Atrial Fibrillation [facility] LIVE HCIS Instructions [facility] LIVE HCIS Encounters Start End Encounter Admission Attending Care Care Encounter Source Date/Time Date/Time Type Type Clinicians Facility Department ID 2019-08-06 Inpatient CLIF AlexandreHALIMA SURG [id number] [facility] 08:00:[address] 2023-01-22 2023-01-22 Patient Arnold, 1.2.840.1 [id number] Methodi 00:00:00 00:00:00 Outreach Kathrin 66903.1.[address] 3.430.2.7 Hospit a .3.608828 l .8 2023-01-22 2023-01-22 Patient Arnold 1.2.840.1 [id number] Methodi 00:00:00 00:00:00 Outreach Kathrin 79230.1.[address] 3.430.2.7 Hospit a .3.919389 l .8 2023-01-08 2023-01-08 Telephone Debora Marques 1.2.840.1 [id number] Methodi 00:00:00 00:00:[address] 3.430.2.7 Hospit a .3.475934 l .8 2023-01-08 2023-01-08 Telephone Adrianna Miranda 1.2.840.1 [id number] 2 [id number] Methodi 00:00:00 00:00:[address] 3.430.2.7 Hospit a .3.327471 l .8 2023-01-08 2023-01-08 Telephone Debora Marques 1.2.840.1 [id number] Methodi 00:00:00 00:00:[address] 3.430.2.7 Hospit a .3.668376 l .8 2023-01-08 2023-01-08 Telephone Adrianna Miranda 1.2.840.1 [id number] 2 [id number] Methodi 00:00:00 00:00:[address] 3.430.2.7 Hospit a .3.317601 l .8 2023-01-05 2023-01-05 Telephone Adrianna Miranda 1.2.840.1 [id number] 2 [id number] Methodi 00:00:00 00:00:[address] 3.430.2.7 Hospit a .3.118115 l .8 2023-01-05 2023-01-05 Telephone Adrianna Miranda 1.2.840.1 [id number] 2 [id number] Methodi 00:00:00 00:00:[address] 3.430.2.7 Hospit a .3.832206 l .8 2022-11-21 2022-11-21 Telephone Cherise Aaron.2.840.1 [id number] 436 [id number] Methodi 00:00:00 00:00:[address] [facility] 3.430.2.7 Hospi ta .3.016545 l .8 2022-11-21 2022-11-21 Telephone Galen, 1.2.840.1 [id number] 216 [id number] Methodi 00:00:00 00:00:[address] [facility] 3.430.2.7 Hospi ta .3.919770 l .8 2022-09-29 2022-09-29 Patient Favio, 1.2.840.1 [id number] 2099 [id number] Methodi 00:00:00 00:00:00 Outreach Chelly 89944.1.[address] 3.430.2.7 Hospit a .3.080325 l .8 2022-09-29 2022-09-29 Patient Favio, 1.2.840.1 [id number] 2099 [id number] Methodi 00:00:00 00:00:00 Outreach Chelly 80756.1.[address] 3.430.2.7 Hospit a .3.913323 l .8 2022-08-17 2022-08-17 Transition DENIS Hamlin 1.2.840.114 103 [id number] Univers 00:00:00 00:00:00 of Sugar [place] 350.1.13.10 it y [facility] 4.2.7.2.686 [facility] [phone] [facility] [address] 2022-08-13 2022-08-16 Inpatient X ETHAN AKDEEP [facility] [id number] Univers 17:21:00 16:30:00 DIANE khanna of [facility] 2022-08-13 2022-08-16 [facility] Nicolas Sims [facility] 1.2.840 .114 [id number] Univers 17:21:00 16:30:00 Encounter Diane Corrigan 350.1.13.10 ity Zora Landry 4.2.7.2.686 [facility] [id number] [facility] [address] 2022-08-05 2022-08-05 Refill [place], 1.2.840.1 [id number] Methodi 00:00:00 00:00:[address] [place] 3.430.2.7 Hospi ta .3.211446 l .8 2022-08-05 2022-08-05 Refill Galen, 1.2.840.1 [id number] 62189 13768 Methodi 00:00:00 00:00:[address] [facility] 3.430.2.7 Hospi ta .3.404113 l .8 2022-07-20 2022-07-20 Telephone Galen, 1.2.840.1 [id number] 438 [id number] Methodi 00:00:00 00:00:[address] [facility] 3.430.2.7 Hospi ta .3.881095 l .8 2022-07-20 2022-07-20 Telephone Galen, 1.2.840.1 [id number] 368 [id number] Methodi 00:00:00 00:00:[address] [facility] 3.430.2.7 Hospi ta .3.073147 l .8 2022-07-17 2022-07-17 Patient Favio, 1.2.840.1 [id number] 2099 [id number] Methodi 00:00:00 00:00:00 Outreach Chelly [address]1370.1.[address] 3.430.2.7 Hospit a .3.737281 l .8 2022-07-17 2022-07-17 Patient Favio, 1.2.840.1 [id number] 2099 [id number] Methodi 00:00:00 00:00:00 Outreach Chelly 63317.1.[address] 3.430.2.7 Hospit a .3.256576 l .8 2022-07-07 2022-07-07 Patient Reyes, 1.2.840.1 [id number] 5584 Methodi 00:00:00 00:00:00 Outreach Emily 69262.1.1 006 s t 3.430.2.7 Hospit a .3.426799 l .8 2022-07-07 2022-07-07 Patient Reyes, 1.2.840.1 [id number] 4602 Methodi 00:00:00 00:00:00 Outreach Emily 94152.1.1 006 s t 3.430.2.7 Hospit a .3.509827 l .8 2022-07-06 2022-07-06 Prep for Tony 1.2.840.1 [id number] 2 [id number] Methodi 00:00:00 00:00:00 Surgery an, Marisa 22395.1.[address] [place] 3.430.2.7 Hospit a .3.622909 l .8 2022-07-06 2022-07-06 Prep for Tony 1.2.840.1 [id number] 2 [id number] Methodi 00:00:00 00:00:00 Surgery an, Marisa 35090.1.[address] [place] 3.430.2.7 Hospit a .3.280329 l .8 2022-06-22 2022-06-22 Patient Reyes, 1.2.840.1 [id number] 9749 Methodi 00:00:00 00:00:00 Outreach Emily 70480.1.1 639 s t 3.430.2.7 Hospit a .3.611921 l .8 2022-06-22 2022-06-22 Patient Reyes, 1.2.840.1 [id number] 7286 Methodi 00:00:00 00:00:00 Outreach Emily 20143.1.1 639 s t 3.430.2.7 Hospit a .3.276529 l .8 2022-06-21 2022-06-21 Office Adrianna Miranda 1.2.840.1 [id number] 476 [id number] Methodi 09:30:00 11:28:21 [address] B[address] 45027.1.[address] 3.430.2.7 Hospit a .3.049214 l .8 2022-06-21 2022-06-21 Office Adrianna Miarnda 1.2.840.1 [id number] 696 [id number] Methodi 09:30:00 11:28:[address]1861.1.[address] 3.430.2.7 Hospit a .3.969719 l .8 2022-06-21 2022-06-21 Travel 1.2.840.1 1.2.074.755 8975 583417 Methodi 00:00:00 00:00:[address] 3.430.2.7 0.2.7.3.698 Ho spita .3.665459 084.8 l .8 2022-06-21 2022-06-21 Travel 1.2.840.1 1.2.115.097 6141 195162 Methodi 00:00:00 00:00:[address] 3.430.2.7 0.2.7.3.698 Ho spita .3.065169 084.8 l .8 2022-06-19 2022-06-19 Travel 1.2.840.1 1.2.405.055 4099 527627 Methodi 00:00:00 00:00:[address] 3.430.2.7 0.2.7.3.698 Ho spita .3.475670 084.8 l .8 2022-06-19 2022-06-19 Travel 1.2.840.1 1.2.855.417 2377 410007 Methodi 00:00:00 00:00:[address] 3.430.2.7 0.2.7.3.698 Ho spita .3.089946 084.8 l .8 2022-06-12 2022-06-12 Refill Galen, 1.2.840.1 [id number] 61752 22359 Methodi 00:00:00 00:00:[address] [place] 3.430.2.7 Hospi ta .3.914584 l .8 2022-06-12 2022-06-12 Refill [place], 1.2.840.1 [id number] 21680 13474 Methodi 00:00:00 00:00:[address] [place] 3.430.2.7 Hospi ta .3.928726 l .8 2022-06-08 2022-06-08 Refill Galen, 1.2.840.1 [id number] 257 Methodi 00:00:00 00:00:[address] [place] 3.430.2.7 Hospi ta .3.336485 l .8 2022-06-08 2022-06-08 Patient Reyes, 1.2.840.1 [id number] 2211 Methodi 00:00:00 00:00:00 Outreach Emily 32042.1.1 763 s t 3.430.2.7 Hospit a .3.959307 l .8 2022-06-08 2022-06-08 Telephone [place], 1.2.840.1 [id number] 966 [id number] Methodi 00:00:00 00:00:[address] [place] 3.430.2.7 Hospi ta .3.688872 l .8 2022-06-08 2022-06-08 Refill [place], 1.2.840.1 [id number] 52595 Methodi 00:00:00 00:00:[address] [place] 3.430.2.7 Hospi ta .3.602442 l .8 2022-06-08 2022-06-08 Refill [place], 1.2.840.1 [id number] 01885 Methodi 00:00:00 00:00:[address] [place] 3.430.2.7 Hospi ta .3.517986 l .8 2022-06-08 2022-06-08 Patient Reyes, 1.2.840.1 [id number] 5595 Methodi 00:00:00 00:00:00 Outreach Emily 88339.1.1 763 s t 3.430.2.7 Hospit a .3.915064 l .8 2022-06-08 2022-06-08 Telephone [place], 1.2.840.1 [id number] 755 [id number] Methodi 00:00:00 00:00:[address] [place] 3.430.2.7 Hospi ta .3.163503 l .8 2022-06-08 2022-06-08 Refill [place], 1.2.840.1 [id number] 14572 29034 Methodi 00:00:00 00:00:[address] [place] 3.430.2.7 Hospi ta .3.912019 l .8 2022-06-03 2022-06-03 Refill [place], 1.2.840.1 [id number] 16482 66245 Methodi 00:00:00 00:00:[address] [place] 3.430.2.7 Hospi ta .3.688306 l .8 2022-06-03 2022-06-03 Refill [place], 1.2.840.1 [id number] 36895 Methodi 00:00:00 00:00:[address] [facility] 3.430.2.7 Hospi ta .3.766785 l .8 2022-05-25 2022-05-25 Patient Reyes, 1.2.840.1 [id number] 724534 0374 Methodi 00:00:00 00:00:00 Outreach Emily 48543.1.1 043 s t 3.430.2.7 Hospit a .3.163542 l .8 2022-05-25 2022-05-25 Patient Reyes, 1.2.840.1 [id number] 406455 0577 Methodi 00:00:00 00:00:00 Outreach Emily 36632.1.1 043 s t 3.430.2.7 Hospit a .3.972633 l .8 2022-05-11 2022-05-11 Patient Reyes, 1.2.840.1 [id number] 927086 9274 Methodi 00:00:00 00:00:00 Outreach Emily 99637.1.1 088 s t 3.430.2.7 Hospit a .3.649410 l .8 2022-05-11 2022-05-11 Patient Reyes, 1.2.840.1 [id number] 771010 1945 Methodi 00:00:00 00:00:00 Outreach Emily 41001.1.1 088 s t 3.430.2.7 Hospit a .3.267487 l .8 2022-05-09 2022-05-09 Telephone [place], 1.2.840.1 [id number] 013 [id number] Methodi 00:00:00 00:00:[address] [place] 3.430.2.7 Hospi ta .3.927328 l .8 2022-05-09 2022-05-09 Telephone [place], 1.2.840.1 [id number] 417 [id number] Methodi 00:00:00 00:00:[address] [facility] 3.430.2.7 Hospi ta .3.988610 l .8 2022-05-09 2022-05-09 Telephone [place], 1.2.840.1 [id number] 321 [id number] Methodi 00:00:00 00:00:[address] [place] 3.430.2.7 Hospi ta .3.525291 l .8 2022-05-09 2022-05-09 Telephone [place], 1.2.840.1 [id number] 162 [id number] Methodi 00:00:00 00:00:[address] [place] 3.430.2.7 Hospi ta .3.790224 l .8 2022-05-07 2022-05-07 Refill [place], 1.2.840.1 [id number] 57378 96822 Methodi 00:00:00 00:00:[address] [place] 3.430.2.7 Hospi ta .3.446350 l .8 2022-05-07 2022-05-07 Refill Galen, 1.2.840.1 [id number] 78157 64287 Methodi 00:00:00 00:00:[address] [place] 3.430.2.7 Hospi ta .3.838293 l .8 2022-04-27 2022-04-27 Patient Reyes, 1.2.840.1 [id number] 095934 8384 Methodi 00:00:00 00:00:00 Outreach Emily 04097.1.1 906 s t 3.430.2.7 Hospit a .3.601913 l .8 2022-04-27 2022-04-27 Patient Reyes, 1.2.840.1 [id number] 6224 Methodi 00:00:00 00:00:00 Outreach Emily 81150.1.1 906 s t 3.430.2.7 Hospit a .3.484095 l .8 2022-04-06 2022-04-06 Patient Reyes, 1.2.840.1 [id number] 730290 9673 Methodi 00:00:00 00:00:00 Outreach Emily 94377.1.1 988 s t 3.430.2.7 Hospit a .3.188373 l .8 2022-04-06 2022-04-06 Patient Reyes, 1.2.840.1 [id number] 634836 1546 Methodi 00:00:00 00:00:00 Outreach Emily 22747.1.1 988 s t 3.430.2.7 Hospit a .3.471172 l .8 2022-03-16 2022-03-16 Orders Aries, Elidia 1.2.840.1 [id number] 053 [id number] Methodi 00:00:00 00:00:[address] 3.430.2.7 Hospit a .3.386550 l .8 2022-03-16 2022-03-16 Telephone [place], 1.2.840.1 [id number] 587 [id number] Methodi 00:00:00 00:00:[address] [facility] 3.430.2.7 Hospi ta .3.221204 l .8 2022-03-16 2022-03-16 Patient Reyes, 1.2.840.1 [id number] 862221 4395 Methodi 00:00:00 00:00:00 Outreach Emily 63090.1.1 189 s t 3.430.2.7 Hospit a .3.733067 l .8 2022-03-16 2022-03-16 Orders Sales, Elidia 1.2.840.1 [id number] 863 [id number] Methodi 00:00:00 00:00:[address] 3.430.2.7 Hospit a .3.776863 l .8 2022-03-16 2022-03-16 Telephone [place], 1.2.840.1 [id number] 422 [id number] Methodi 00:00:00 00:00:[address] [facility] 3.430.2.7 Hospi ta .3.335895 l .8 2022-03-16 2022-03-16 Patient Reyes, 1.2.840.1 [id number] 737150 0817 Methodi 00:00:00 00:00:00 Outreach Emily 77060.1.1 189 s t 3.430.2.7 Hospit a .3.771191 l .8 2022-03-06 2022-03-06 Telephone [place], 1.2.840.1 [id number] 835 [id number] Methodi 00:00:00 00:00:[address] [facility] 3.430.2.7 Hospi ta .3.850953 l .8 2022-03-06 2022-03-06 Telephone [place], 1.2.840.1 [id number] 025 [id number] Methodi 00:00:00 00:00:[address] [facility] 3.430.2.7 Hospi ta .3.237929 l .8 2022 2022 Patient Reyes, 1.2.840.1 [id number] 215201 5463 Methodi 00:00:00 00:00:00 Outreach Emily 99723.1.1 904 s t 3.430.2.7 Hospit a .3.478868 l .8 2022 2022 Patient Reyes, 1.2.840.1 [id number] 529020 4303 Methodi 00:00:00 00:00:00 Outreach Emily 46005.1.1 904 s t 3.430.2.7 Hospit a .3.935681 l .8 2022-03-01 2022-03-01 Office Adrianna Miranda 1.2.840.1 [id number] 075 [id number] Methodi 10:00:00 14:41:30 Visit B. 79560.1.[address] 3.430.2.7 Hospit a .3.789967 l .8 2022-03-01 2022-03-01 Office Adrianna Miranda 1.2.840.1 [id number] 583 [id number] Methodi 10:00:00 14:41:30 Visit B. 47542.1.[address] 3.430.2.7 Hospit a .3.107661 l .8 2022-03-01 2022-03-01 Office Galen 1.2.840.1 [id number] 63077 Methodi 10:00:00 10:05:57 Visit Poli 01499.1.[address] [place] 3.430.2.7 Hospi ta .3.528380 l .8 2022-03-01 2022-03-01 Office Galen, 1.2.840.1 [id number] 48021 Methodi 10:00:00 10:05:57 Visit Poli 10993.1.[address] [place] 3.430.2.7 Hospi ta .3.756472 l .8 2022-03-01 2022-03-01 Travel 1.2.840.1 1.2.777.677 9520 329853 Methodi 00:00:00 00:00:[address] 3.430.2.7 0.2.7.3.698 Ho spita .3.584882 084.8 l .8 2022-03-01 2022-03-01 Travel 1.2.840.1 1.2.509.741 4715 139212 Methodi 00:00:00 00:00:[address] 3.430.2.7 0.2.7.3.698 Ho spita .3.876569 084.8 l .8 2022-02-27 2022-02-27 Telephone [place], 1.2.840.1 [id number] 362 [id number] Methodi 00:00:00 00:00:[address] [facility] 3.430.2.7 Hospi ta .3.409304 l .8 2022-02-27 2022-02-27 Telephone [place], 1.2.840.1 [id number] 446 [id number] Methodi 00:00:00 00:00:[address] [place] 3.430.2.7 Hospi ta .3.967935 l .8 2022-02-15 2022-02-15 Patient Reyes, 1.2.840.1 [id number] 4184 Methodi 00:00:00 00:00:00 Outreach Emily 99552.1.1 809 s t 3.430.2.7 Hospit a .3.274537 l .8 2022-02-15 2022-02-15 Patient Reyes, 1.2.840.1 [id number] 890300 5668 Methodi 00:00:00 00:00:00 Outreach Emily 30501.1.1 809 s t 3.430.2.7 Hospit a .3.636118 l .8 2022-02-13 2022-02-13 Telephone Theodore, 1.2.840.1 [id number] 21 [id number] Methodi 00:00:00 00:00:[address] 3.430.2.7 Hospit a .3.782412 l .8 2022-02-13 2022-02-13 Telephone Theodore, 1.2.840.1 [id number] 21 [id number] Methodi 00:00:00 00:00:[address] 3.430.2.7 Hospit a .3.836160 l .8 2022-02-03 2022-02-03 Office Adrianna Miranda 1.2.840.1 [id number] 033 [id number] Methodi 09:20:00 09:20:00 Visit B. 02028.1.[address] 3.430.2.7 Hospit a .3.495325 l .8 2022-02-01 2022-02-01 Patient Reyes, 1.2.840.1 [id number] 768800 4289 Methodi 00:00:00 00:00:00 Outreach Emily 44618.1.1 609 s t 3.430.2.7 Hospit a .3.281738 l .8 2022-01-31 2022-01-31 Refill Galen, 1.2.840.1 [id number] 84633 97987 Methodi 00:00:00 00:00:[address] [facility] 3.430.2.7 Hospi ta .3.533134 l .8 2022-01-30 2022-01-30 Hospital Adrianna Miranda 1.2.840.1 [id number] 21 [id number] Methodi 07:38:00 13:41:00 Encounter B. 26649.1.[address] 3.430.2.7 Hospit a .3.632966 l .8 2022-01-30 2022-01-30 Surgery Adrianna Miranda 1.2.840.1 [id number] 045 [id number] Methodi 09:00:00 10:40:[address] 3.430.2.7 Hospit a .3.255680 l .8 2022-01-302022-01-30 Anesthesia Brann, 1.2.840.1 [id number] 189 [id number] Methodi 08:59:00 10:18:00 Event Abdullahi 42481.1.[address] Robi 3.430.2.7 Hospit a .3.910456 l .8 2022-01-30 2022-01-30 Travel 1.2.840.1 1.2.537.206 8824 876207 Methodi 00:00:00 00:00:[address] 3.430.2.7 0.2.7.3.698 Ho spita .3.046952 084.8 l .8 2022-01-27 2022-01-27 Patient Reyes, 1.2.840.1 [id number] 088328 4814 Methodi 00:00:00 00:00:00 Outreach Emily 85657.1.1 659 s t 3.430.2.7 Hospit a .3.075786 l .8 2022-01-25 2022-01-25 Patient Arnold, 1.2.840.1 [id number] 75272 79368 Methodi 00:00:00 00:00:00 Outreach Kathrin 71119.1.[address] 3.430.2.7 Hospit a .3.722206 l .8 2022-01-16 2022-01-16 Travel 1.2.840.1 1.2.415.628 4836 157088 Methodi 00:00:00 00:00:[address] 3.430.2.7 0.2.7.3.698 Ho spita .3.574625 084.8 l .8 2022-01-13 2022-01-13 Refill Galen, 1.2.840.1 [id number] 64900 96618 Methodi 00:00:00 00:00:[address] [facility] 3.430.2.7 Hospi ta .3.871118 l .8 2022-01-10 2022-01-10 Telephone Theodore, 1.2.840.1 [id number] 21 [id number] Methodi 00:00:00 00:00:[address] 3.430.2.7 Hospit a .3.363132 l .8 2022-01-10 2022-01-10 Orders Theodore, 1.2.840.1 [id number] 2099 [id number] Methodi 00:00:00 00:00:00 Only Maryanne 78432.1.[address] 3.430.2.7 Hospit a .3.179007 l .8 2022-01-10 2022-01-10 Prep for Theodore, 1.2.840.1 [id number] 711 [id number] Methodi 00:00:00 00:00:00 Surgery Maryanne 41473.1.[address] 3.430.2.7 Hospit a .3.027823 l .8 2022-01-09 2022-01-09 Telephone Theodore, 1.2.840.1 [id number] Methodi 00:00:00 00:00:[address] 3.430.2.7 Hospit a .3.075354 l .8 2021-12-28 2021-12-28 Outpatient [facility] [id number] [place] 00:00:00 00:00:[address] 2021-12-28 2021-12-28 Travel 1.2.840.1 1.2.056.565 0170 535295 Methodi 00:00:00 00:00:[address] 3.430.2.7 0.2.7.3.698 Ho spita .3.296850 084.8 l .8 2021-12-23 2021-12-23 Refill Galen, 1.2.840.1 [id number] 83484 Methodi 00:00:00 00:00:[address] [facility] 3.430.2.7 Hospi ta .3.355289 l .8 2021-12-23 2021-12-23 Orders Galen, 1.2.840.1 [id number] 09825 Methodi 00:00:00 00:00:00 Only Poli 96573.1.[address] [place] 3.430.2.7 Hospi ta .3.674733 l .8 2021-12-21 2021-12-21 Office Adrianna Miranda 1.2.840.1 [id number] 478 [id number] Methodi 08:50:00 11:59:46 [place] B. 53597.1.[address] 3.430.2.7 Hospit a .3.361555 l .8 2021-12-21 2021-12-21 Office Galen, 1.2.840.1 [id number] 53391 Methodi 10:00:00 10:41:23 Visit Poli 55067.1.[address] [place] 3.430.2.7 Hospi ta .3.088582 l .8 2021-12-21 2021-12-21 Travel 1.2.840.1 1.2.885.473 7125 240396 Methodi 00:00:00 00:00:[address] 3.430.2.7 0.2.7.3.698 Ho spita .3.717028 084.8 l .8 2021-12-17 2021-12-17 Refill Galen, 1.2.840.1 [id number] 14708 Methodi 00:00:00 00:00:[address] [place] 3.430.2.7 Hospi ta .3.417029 l .8 2021-12-16 2021-12-16 Telephone Theodore, 1.2.840.1 [id number] Methodi 00:00:00 00:00:[address] 3.430.2.7 Hospit a .3.066909 l .8 2021-12-14 2021-12-14 Outpatient ADRIANNA MIRANDA [facility] 2099 [id number] Ben[place] 00:00:00 00:00:[address] 2021-12-07 2021-12-07 Office Adrianna Miranda 1.2.840.1 [id number] 337 [id number] Methodi 10:20:00 11:37:02 [address]383.1.[address] 3.430.2.7 Hospit a .3.091183 l .8 2021-12-07 2021-12-07 Travel 1.2.840.1 1.2.832.195 7458 965543 Methodi 00:00:00 00:00:[address] 3.430.2.7 0.2.7.3.698 Ho spita .3.999287 084.8 l .8 2021-11-29 2021-11-29 Travel 1.2.840.1 1.2.299.154 6159 171609 Methodi 00:00:00 00:00:[address] 3.430.2.7 0.2.7.3.698 Ho spita .3.247747 084.8 l .8 2021-11-16 2021-11-16 Refill Galen, 1.2.840.1 [id number] 36258 39718 Methodi 00:00:00 00:00:[address] [place] 3.430.2.7 Hospi ta .3.336718 l .8 2021-10-26 2021-10-26 Telephone Galen, 1.2.840.1 [id number] 771 [id number] Methodi 00:00:00 00:00:[address] [place] 3.430.2.7 Hospi ta .3.660533 l .8 2021-10-24 2021-10-24 Telephone Galen, 1.2.840.1 [id number] 157 [id number] Methodi 00:00:00 00:00:[address] [place] 3.430.2.7 Hospi ta .3.073193 l .8 2021-10-21 2021-10-21 Telephone Galen, 1.2.840.1 [id number] 927 [id number] Methodi 00:00:00 00:00:[address] [place] 3.430.2.7 Hospi ta .3.996479 l .8 2021-10-20 2021-10-20 Telephone [place], 1.2.840.1 [id number] 508 [id number] Methodi 00:00:00 00:00:[address] [place] 3.430.2.7 Hospi ta .3.054881 l .8 2021-10-11 2021-10-11 Telephone [place], 1.2.840.1 [id number] 631 [id number] Methodi 00:00:00 00:00:[address] [place] 3.430.2.7 Hospi ta .3.878067 l .8 2021-10-06 2021-10-06 Office Galen, 1.2.840.1 [id number] 07598 02170 Methodi 15:15:00 15:51:36 Visit Poli 35056.1.[address] [place] 3.430.2.7 Hospi ta .3.562383 l .8 2021-10-06 2021-10-06 Travel 1.2.840.1 1.2.331.714 7234 313836 Methodi 00:00:00 00:00:[address] 3.430.2.7 0.2.7.3.698 Ho spita .3.865402 084.8 l .8 2021-10-04 2021-10-04 Telephone [place], 1.2.840.1 [id number] 741 [id number] Methodi 00:00:00 00:00:[address] [place] 3.430.2.7 Hospi ta .3.173028 l .8 2021-10-03 2021-10-03 Telephone Garcia, 1.2.840.1 [id number] 443 [id number] Methodi 00:00:00 00:00:[address] 3.430.2.7 Hospit a .3.598892 l .8 2021-09-28 2021-09-28 Office Adrianna Miranda 1.2.840.1 [id number] 147 [id number] Methodi 14:30:00 16:45:56 Visit B. 00075.1.[address] 3.430.2.7 Hospit a .3.211572 l .8 2021-09-28 2021-09-28 Travel 1.2.840.1 1.2.798.716 4528 012569 Methodi 00:00:00 00:00:[address] 3.430.2.7 0.2.7.3.698 Ho spita .3.395116 084.8 l .8 2021-09-28 2021-09-28 Outpatient AUBRIE MIRANDAY [facility] 2100 [id number] [place] 00:00:00 00:00:[address] 2021-09-19 2021-09-19 Travel 1.2.840.1 1.2.112.833 0828 766730 Methodi 00:00:00 00:00:[address] 3.430.2.7 0.2.7.3.698 Ho spita .3.350304 084.8 l .8 2021-09-12 2021-09-12 Travel 1.2.840.1 1.2.719.852 7617 321743 Methodi 00:00:00 00:00:[address] 3.430.2.7 0.2.7.3.698 Ho spita .3.076357 084.8 l .8 2021-08-15 2021-08-15 Telephone Galen, 1.2.840.1 [id number] 002 [id number] Methodi 00:00:00 00:00:[address] [place] 3.430.2.7 Hospi ta .3.499470 l .8 2021-07-04 2021-07-04 Telephone Galen, 1.2.840.1 [id number] 404 [id number] Methodi 00:00:00 00:00:[address] [place] 3.430.2.7 Hospi ta .3.824111 l .8 2021-06-27 2021-06-27 Telephone Galen, 1.2.840.1 [id number] 130 [id number] Methodi 00:00:00 00:00:[address] [place] 3.430.2.7 Hospi ta .3.577140 l .8 2021-06-21 2021-06-21 Telephone Galen, 1.2.840.1 [id number] 243 [id number] Methodi 00:00:00 00:00:[address] [place] 3.430.2.7 Hospi ta .3.754720 l .8 2021-06-19 2021-06-19 Refill [place], 1.2.840.1 [id number] 73126 Methodi 00:00:00 00:00:[address] [place] 3.430.2.7 Hospi ta .3.843634 l .8 2021-05-31 2021-05-31 Telephone [place]en, 1.2.840.1 [id number] 089 [id number] Methodi 00:00:00 00:00:[address] 3.430.2.7 Hospi ta .3.927460 l .8 2021-05-30 2021-05-30 Telephone [place], 1.2.840.1 [id number] Methodi 00:00:00 00:00:[address] 3.430.2.7 Hospi ta .3.549829 l .8 2021-04-22 2021-04-22 Telephone [place], 1.2.840.1 [id number] Methodi 00:00:00 00:00:[address] 3.430.2.7 Hospi ta .3.643027 l .8 2021-04-15 2021-04-15 Refill [place], 1.2.840.1 [id number] Methodi 00:00:00 00:00:[address] 3.430.2.7 Hospi ta .3.218743 l .8 2021-04-12 2021-04-12 Telephone [place], 1.2.840.1 [id number] 618 [id number] Methodi 00:00:00 00:00:[address] 3.430.2.7 Hospi ta .3.990324 l .8 2021-04-04 2021-04-04 Orders [place], 1.2.840.1 [id number] Methodi 00:00:00 00:00:00 Only Poli 87940.1.[address] 3.430.2.7 Hospi ta .3.115236 l .8 2021-04-04 2021-04-04 Orders [place], 1.2.840.1 [id number] 95274 Methodi 00:00:00 00:00:00 Only Poli 49026.1.[address] 3.430.2.7 Hospi ta .3.886752 l .8 2021-03-31 2021-03-31 Lab [place], 1.2.840.1 [id number] 18184 Methodi 10:00:00 10:05:[address] 3.430.2.7 Hospi ta .3.323180 l .8 2021-03-31 2021-03-31 Office [place], 1.2.840.1 [id number] Methodi 09:15:00 09:51:04 Visit Poli 66245.1.[address] 3.430.2.7 Hospi ta .3.569073 l .8 2021-03-31 2021-03-31 Travel 1.2.840.1 1.2.889.353 9878 [id number] Methodi 00:00:00 00:00:[address] 3.430.2.7 0.2.7.3.698 Ho spita .3.431445 084.8 l .8 2021-03-30 2021-03-30 Telephone [place], 1.2.840.1 [id number] Methodi 00:00:00 00:00:[address] 3.430.2.7 Hospi ta .3.808092 l .8 2021-03-29 2021-03-29 Travel 1.2.840.1 1.2.011.127 7373 [id number] Methodi 00:00:00 00:00:[address] 3.430.2.7 0.2.7.3.698 Ho spita .3.597754 084.8 l .8 2021 2021 Refill [place], 1.2.840.1 [id number] 78525 85821 Methodi 00:00:00 00:00:[address] 3.430.2.7 Hospi ta .3.243295 l .8 2021-02-23 2021-02-23 Telephone [place], 1.2.840.1 [id number] 798 [id number] Methodi 00:00:00 00:00:[address] 3.430.2.7 Hospi ta .3.297228 l .8 2021-02-07 2021-02-07 Telephone [place], 1.2.840.1 [id number] 862 [id number] Methodi 00:00:00 00:00:[address] 3.430.2.7 Hospi ta .3.554084 l .8 2021-02-02 2021-02-02 Refill [place], 1.2.840.1 [id number] 62069 Methodi 00:00:00 00:00:[address] 3.430.2.7 Hospi ta .3.762658 l .8 2021-01-31 2021-01-31 Telephone [place], 1.2.840.1 [id number] 990 [id number] Methodi 00:00:00 00:00:[address] 3.430.2.7 Hospi ta .3.902554 l .8 2021-01-14 2021-01-14 Outpatient GALEN, [facility] [id number] [place] 00:00:00 00:00:00 POLI 463 Meth[address] 2021-01-05 2021-01-05 Outpatient GALEN, [facility] [id number] 3923 [place] 00:00:00 00:00:00 POLI 850 Meth[address] 2020-12-28 2020-12-28 Outpatient GALEN, [facility] [id number] 0718 [place] 00:00:00 00:00:00 POLI 302 Metho di 2020-12-21 2020-12-21 Outpatient GALEN, [facility] [id number] 7662 [place] 00:00:00 00:00:00 POLI 429 Metho di 2020-12-21 2020-12-21 Outpatient GALEN, [facility] [id number] 1179 [place] 00:00:00 00:00:[address] POLI [address] 2020-11-05 2020-11-05 Outpatient GALEN, [facility] [id number] 0622 [place] 00:00:00 00:00:00 POLI [address] 2020-10-25 2020-10-25 Outpatient GALEN, [facility] [id number] 2561 [place] 00:00:00 00:00:00 POLI [address] 2020-07-15 2020-07-15 Outpatient GALEN [facility] [id number] 6810 [place] 00:00:00 00:00:00 POLI 251 Metho di 2020-07-15 2020-07-15 Outpatient GALEN [facility] [id number] 1485 [place] 00:00:00 00:00:00 POLI 087 Metho di 2020-07-15 2020-07-15 Outpatient GALEN [facility] [id number] 5828 [place] 00:00:00 00:00:[address] POLI [address] 2020-07-14 2020-07-14 Outpatient ADRIANNA MIRANDA [facility] 2100 [id number] [place] 00:00:00 00:00:[address] 2020-07-14 2020-07-14 Outpatient ADRIANNA MIRANDA [facility] 2100 [id number] [place] 00:00:00 00:00:00 425 Method i 2020-03-01 2020-03-01 Outpatient GALEN [facility] [id number] [place] 00:00:00 00:00:00 POLI 480 Metho di 2019-12-17 2019-12-17 Outpatient ADRIANNA MIRANDA [facility] 2100 [id number] [place] 00:00:00 00:00:00 172 Method i 2019-12-09 2019-12-09 Outpatient GALEN [facility] [id number] 6413 [place] 00:00:00 00:00:00 POLI 390 Metho di 2019-12-09 2019-12-09 Outpatient GALEN [facility] [id number] 6094 [place] 00:00:00 00:00:[address] POLI [address] 2019-09-25 2019-09-25 Discharged GRECIA CARTER06 [id number] [facility] 00:55:00 13:28:[address] (obs) [facility] LIVE HCIS 2019-09-25 2019-09-25 Discharged ER BILL FLORES [id number] MARK 00:55:00 00:55:[address] [facility] 2019-08-26 Outpatient GALEN [facility] [id number] [place] 00:00:00 00:00:00 POLI [address] 2019-07-29 2019-07-29 Outpatient CARLEE Schroeder OUTD [id number] [facility] 12:10:00 12:10:00 Robi 89 [facility] 2019-07-29 2019-07-29 Outpatient KARLA UsWU 3DAY [id number] [facility] 00:00:00 00:00:[address] [facility] 2019-07-19 2019-07-19 Outpatient KARLA WilsonWU SURG [id number] [facility] 12:00:00 12:00:[address] [facility] 2019-05-21 2019-05-21 [facility] [id number] [place] 00:00:00 00:00:00 POLI [address] Results Test Description Test Time Test Comments Results Result Comments Source FREE T4 2022-08-16 05:47:50 Test Item Value Reference Range Interpretation Comme nts FREE T4 (test code = 1.45 See_Comment [Autom ated message] The system [id number]) which generated this result transmitted ref erence range: 0.78 - 2.20 ng/dL:. The reference range was not u sed to interpret this result as normal/abnormal. Lab Interpretation (test code = Normal 23416-4) [facility]. METABOLIC PANEL (30969)2022-08-14 00:35:15 Test Item Value Reference Range Interpretation Comments NA (test code = 138 mmol/L 135-145 7602916218) K (test code = 4.2 mmol/L 3.5-5.0 3642608216) CL (test code = 101 mmol/L 98-108 9538741982) CO2 TOTAL (test code = 30 mmol/L 23-31 9240762309) AGAP (test code = 7 2-16 5225416671) BUN (test code = 36 mg/dL 7-23 H 8486965649) GLUCOSE (test code = 82 mg/dL 70-110 1189437954) CREATININE (test code = 1.27 mg/dL 0.50-1.04 H 7538316674) TOTAL BILI (test code = 0.9 mg/dL 0.1-1.4 4460866731) CALCIUM (test code = 10.6 mg/dL 8.6-10.6 7025989462) T PROTEIN (test code = 6.5 g/dL 6.3-8.2 0484389903) ALBUMIN (test code = 4.1 g/dL 3.5-5.0 9388447816) ALK PHOS (test code = 37 U/L 34-122 8870596632) ALTv (test code = 22 U/L 5-35 1742-6) AST(SGOT) (test code = 33 U/L 13-40 3354855330) eGFR (test code = 39.9 mL/min/1.73m2 6761581195) BANDAR (test code = BANDAR) Association of [...] tests). Lab Interpretation Abnormal (test code = 11614-7) [facility] [id number] 00:01:31 Test Item Value Reference Range Interpretation Comments TROPONIN I (test code = 0.023 ng/mL <=0.034 9738825251) BANDAR (test code = BANDAR) Reference (Normal) [...] biotin. Lab Interpretation Normal (test code = 23043-7) [facility] QBZ-[id number] 00:00:16 Test Item Value Reference Range Interpretation Comments NT-proBNP (test code = 408 pg/mL <=450 5067290612) BANDAR (test code = BANDAR) Biotin has been reported to cause a negative bias, interpret results relative to patient's use of biotin. Lab Interpretation (test Normal code = 59412-1) [facility]AL[facility]ATE2023-05-21 23:50:54 SALICYLATE<10mg/L08/13/2022 6:50 PM [facility]: ? Analgesic and Antipyretic Use ? 20- 100 mg/L ? ? Anti-Inflammatory Use ? 100-250 mg/L Toxic Range: ? 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 The reference range was not used to interpret this result as normal/abnormal . RBC (test code = 4.70 See_Comment [Automated 789-8) message] The sy stem which generated this [...] RDW-SD (test code = 48.9 fL 39.0-49.9 14305-7) RDW-CV (test code = 14.1 % 12.0-15.5 788-0) PLT (test code = 298 See_Comment [Automated 777-3) message] The sy stem which generated this result transmitted reference range : 166 - 358 10*3/ ?L. The reference r john was not used to interpret this result as normal/abnormal . MPV (test code = 10.5 fL 9.5-12.9 99438-4) NRBC/100 WBC (test 0.0 See_Comment [Automat ed code = 9308209136) message] The system which generated this result transmitted reference range : 0.0 - 10.0 /100 WBCs. The refer ence range was not u sed to interpret th is result as normal/abnormal . NRBC x10^3 (test code See_Comment [Auto mated = 8067066976) message] The s ystem which generated this result transmitted reference range : 10*3/?L. The reference range was not used to interpret this result as normal/abnormal . GRAN MAT (NEUT) % 58.6 % (test code = 770-8) IMM GRAN % (test code 0.40 % = 5053763416) LYMPH % (test code = 26.4 % 736-9) MONO % (test code = 8.5 % 5905-5) EOS % (test code = 5.0 % 713-8) BASO % (test code = 1.1 % 706-2) GRAN MAT x10^3(ANC) 3.26 10*3/uL 1.88-7.09 (test code = 6956809420) IMM GRAN x10^3 (test 0.00-0.06 code = 2115549472) LYMPH x10^3 (test code 1.47 10*3/uL 1.32-3.29 = 731-0) MONO x10^3 (test code 0.47 10*3/uL 0.33-0.92 = 742-7) EOS x10^3 (test code = 0.28 10*3/uL 0.03-0.39 711-2) BASO x10^3 (test code 0.06 10*3/uL 0.01-0.07 = 704-7) Lab Interpretation Abnormal (test code = 93320-5) [facility] sguwtti3220-08-64 16:16:00 Test Item Value Reference Range Interpretation Comments POC glucose (test 90 mg/dL 65-99 Diabetes Educator N roberto: Green code = 98318-2) IngridDevice ID: [id number] able: [facility] Notified RNChar table: No Action Needed [facility]2022-11-07 16:16:00 Test Item Value Reference Range Interpretation Comments POC glucose (test 90 mg/dL 65-99 Diabetes Educator N roberto: Green code = 95920-0) IngridDevice ID: [id number] able: [facility] Notified RNChar table: No Action Needed [facility]2022-11-07 16:16:00 Test Item Value Reference Range Interpretation Comments POC glucose (test 90 mg/dL 65-99 Diabetes Educator N roberto: Green code = 39211-5) IngridDevice ID: [id number] able: [facility] Notified RNChar table: No Action Needed [facility]2022-11-07 16:16:00 Test Item Value Reference Range Interpretation Comments POC glucose (test 90 mg/dL 65-99 Diabetes Educator N roberto: Green code = 14481-0) IngridDevice ID: [id number] able: [facility] Notified RNChar table: No Action Needed [facility] ydramam1581-23-08 16:16:00 Test Item Value Reference Range Interpretation Comments POC glucose (test 90 mg/dL 65-99 Diabetes Educator N roberto: Green code = 88910-9) IngridDevice ID: [id number] able: [facility] Notified RNChar table: No Action Needed [facility] HospitalComprehensive metabolic oaqgk6665-25-41 13:06:00 Test Item Value Reference Interpretation Comments Range Glucose (test code 117 mg/dL 65-99 H Fasting reference = 2345-7) interval For so meone without known diabetes, a glu cose valuebetween 10 0 and 125 mg/dL is consistent withprediabetes and should be confi rmed with afollow-up test. BUN (test code = 17 mg/dL 10-174-0) Creatinine (test 0.89 mg/dL 0.60-0.95 code = 2160-0) eGFR (test code = See_Comment The eGFR i s based on 8257) the CKD-EPI 202 1 equation. To calculate the n ew eGFR from a pre vious Creatinine or Cystatin Cresul t, go to https://www.kid raymond.o rg/professional s/kdo qi/gfr%5Fcalcul ator [Automated mess age] The system TSCA generated this result transmit danielle reference range [...] . Sodium (test code = 142 mmol/L 910-887 6647-2) Potassium (test 3.8 mmol/L 3.5-5.3 code = 2823-3) Chloride (test code 100 mmol/L 98-110 = 2075-0) CO2 (test code = 32 mmol/L 20-32 2027-11) Calcium (test code 10.4 mg/dL 8.6-10.4 = 15958-3) Protein (test code 7.4 g/dL 6.1-8.1 = 2885-2) Albumin, S (test 4.8 g/dL 3.6-5.1 code = 1751-7) Globulin, total See_Comment [Automated message] (test code = [place] h 832[address]-9) generated this result transmit danielle reference range [...] RAC) Organization Information: Site ID: RGA Name: [facility] Address: [address] [place] [phone] Director: Robi Rodas Lab Interpretation Abnormal (test code = 99848-0) [facility] HospitalLipid [id number] 13:06:00 Test Item Value Reference Range Interpretation [...] calculated (test <100 Desira ble code = 44713-7) range <100 m g/dL for primary prevention; <70 mg/dL for patients with C HD or diabetic patients with > or = 2 CHD risk factors. LDL-C is now calculated using the Geoff-Jaya calculation, which is a validated novel method providin g better accuracy than the Friedewald equation in the estimation of LDL-C. Geoff S S et al. MARY. 2013;310(19): 3530-1837 (http://educati on .[employer] .com/faq/NMV482 ) Cholesterol/HDL See_Comment [Automated ratio (test code = message] The 9830-1) system which generated this result transmitted reference range : <5.0 (calc). Th e reference range was not used to interpret this result as normal/abnormal . Non-HDL cholesterol See_Comment H For rolly ents with (test code = diabetes plus 1 93929-4) major ASCVD ris k factor, treatin g [...] RAC) Organization Information: Site ID: RGA Name: [facility] Lab Address: [address] [place] [phone] Director: Robi Rodas Lab Interpretation Abnormal (test code = 81724-6) [facility] HospitalHemoglobin [id number] 13:06:00 Test Item Value Reference Range Interpretation [...] RAC) Organization Information: Site ID: A Name: [facility] Lab Address: [address] [place] [address] Director: Robi Rodas [facility] HospitalThyroid stimulating srymbqt2221-27-41 13:06:00 Test Item Value Reference Range Interpretation Comments TSH (test code = See_Comment L [Automated 1516-3) message] The system which generated this result transmitted reference range : 0.40 - 4.50 mIU/L. The reference range was not used to interpret this result as normal/abnormal . BANDAR (test code = FASTING:YES BANDAR) FASTING: YES RAC (test code = Performing RAC) Organization Information: Site ID: [facility] Name: [facility]Forms Lab Address: [address] [place] [address] Director: Robi Rodas Lab Interpretation Abnormal (test code = 85321-5) [facility] with platelet and kziguwmjnjgq7883-46-56 13:06:00 Test Item Value Reference Range Interpretation Comments WBC (test code = See_Comment [Automated 1135-2) message] The system which generated this result transmitted reference range : 3.8 - 10.8 Thousand/uL. Th e reference range was not used to interpret this result as normal/abnormal . RBC (test code = See_Comment [Automated 663-8) message] The system which generated this result [...] RAC) Organization Information: Site ID: RGA Name: [facility] Lab Address: [address] [place] [phone] Director: Robi Rodas Lab Interpretation Abnormal (test code = 65470-1) [facility] HospitalUrinalysis, automated with odlpllfyip5942-57-23 13:06:00 Test Item Value Reference Range Interpretation Comments Color, UA (test code YELLOW YELLOW = 5778-6) Appearance (test CLEAR CLEAR code = 5767-9) Specific gravity, 1.001-1.035 urine (test code = 5811-5) pH, urine (test code 5.0-8.0 = 5803-2) Glucose, urine (test NEGATIVE NEGATIVE code = 42514-0) Bilirubin, UA (test NEGATIVE NEGATIVE code = 5770-3) Ketones, UA (test NEGATIVE NEGATIVE code = 2514-8) Occult blood, urine NEGATIVE NEGATIVE (test code = 5794-3) Protein, UA (test TRACE NEGATIVE A code = 69781-6) Nitrite, UA (test NEGATIVE NEGATIVE code = [...] code = NONE SEEN See_Comment [Autom ated 36389-8) message] The system which generated this result transmitted reference range : < OR = 2 /HPF. The reference range was not used to interpr et this result as normal/abnormal . Squamous epithelial 0-5 See_Comment [Automa danielle cells, UA (test code message ] The = 59970-1) system which generated this result transmitted reference [...] = Performing RAC) Organization Information: Site ID: [facility] Name: [facility] Address: [address] [place] [phone] Director: Robi Rodas Lab Interpretation Abnormal (test code = 43556-7) [facility] HospitalVitamin D 25 hydroxy xutql0557-58-20 13:06:00 Test Item Value Reference Range Interpretation [...] please refer to http://educatio n.Q uestDiagnostics .co m/faq/VAJ700 (T his link is being provided for informational/e sunil ational purpose s only.) BANDAR (test code = FASTING:YES FASTING: BANDAR) YES RAC (test code = Performing RAC) Organization Information: Site ID: [facility] Name: [facility] Address: [address] [place] [phone] Director: Robi Rodas [facility] HospitalComprehensive metabolic [id number] 13:06:00 Test Item Value Reference Interpretation Comments [...] Creatinine or Cystatin Cresul t, go to https://www.Linkyt rayomnd.o rg/professional s/kdo qi/gfr%5Fcalcul ator [Automated mess age] The system TSCA generated this result transmit danielle reference range : > OR = 60 mL/min/1.73m2. The reference range was not used to interpret this result as normal/abnormal . BUN/creatinine NOT APPLICABLE See_Comment [Automated message] ratio (test code = The [employer] which 3097-3) generated this result transmit danielle reference range : 6 - 22 (calc). The reference range was not used to interpret this result as normal/abnormal . Sodium (test code = 142 mmol/L 991-574 8596-2) Potassium (test 3.8 mmol/L 3.5-5.3 code = 2823-3) Chloride (test code 100 mmol/L 98-110 = 2075-0) CO2 (test code = 32 mmol/L 20-32 2027-9) Calcium (test code 10.4 mg/dL 8.6-10.4 = 44957-0) Protein (test code 7.4 g/dL 6.1-8.1 = 2885-2) Albumin, S (test 4.8 g/dL 3.6-5.1 code = 1751-7) Globulin, total 2.6 See_Comment [Automated message] (test code = The system TSCA 86739-5) generated this result transmit danielle reference range : 1.9 - 3.7 g/dL (merissa c). The reference r john was not used to interpret this result as normal/abnormal . Albumin/globulin 1.8 See_Comment [Automated message] ratio (test code = The [employer] which 1759-0) generated this result transmit danielle [...] RAC) Organization Information: Site ID: RGA Name: [facility] Address: [address] [place] [phone] Director: Robi Rodas Lab Interpretation Abnormal (test code = 07346-6) [facility] HospitalLipid ouhpf3549-73-11 13:06:00 Test Item Value Reference Range Interpretation [...] calculated (test <100 Desira ble code = 35478-6) range <100 m g/dL for primary prevention; <70 mg/dL for patients with C HD or diabetic patients with > or = 2 CHD risk factors. LDL-C is now calculated using the Geoff-Jaya calculation, which is a validated novel method loisin g better accuracy than the Friedewald equation in the estimation of LDL-C. Geoff S S et al. MARY. 2013;310(19): 9867-8753 (http://educati on .[employer] .com/faq/FHX136 ) Cholesterol/HDL 3.3 See_Comment [Automated ratio (test code = message] The 9830-1) system which generated this result transmitted reference range : <5.0 (calc). Th e reference range was not used to interpret this result as normal/abnormal . Non-HDL cholesterol 140 See_Comment H For rolly ents with (test code = diabetes plus 1 04385-5) major ASCVD ris k factor, treatin g [...] RAC) Organization Information: Site ID: RGA Name: [facility] Lab Address: [address] [place] [phone] Director: Robi Rodas Lab Interpretation Abnormal (test code = 62245-5) [facility] HospitalHemoglobin [id number] 13:06:00 Test Item Value Reference Range Interpretation [...] in Diabetes(ADA). [Automated mess age] The system TSCA generated this result transmitted ref erence range: <5.7 % o f total Hgb. The reference range was not used to int erpret this result as normal/abnormal . BANDAR (test code = FASTING:YES BANDAR) FASTING: YES RAC (test code = Performing RAC) Organization Information: Site ID: RGA Name: [facility] Lab Address: [address] [place] [phone] Director: Robi Rodas [facility] HospitalThyroid stimulating kenvttr6029-98-08 13:06:00 Test Item Value Reference Range Interpretation [...] RAC) Organization Information: Site ID: RGA Name: [facility] Lab Address: [address] [place] [address] Director: Robi Rodas Lab Interpretation Abnormal (test code = 35368-8) [facility] with platelet and trtibumkfhtj1963-17-22 13:06:00 Test Item Value Reference Range Interpretation [...] RAC) Organization Information: Site ID: RGA Name: [facility] Lab Address: [address] [place] [address] Director: Robi Rodas Lab Interpretation Abnormal (test code = 02638-0) [facility] with gmeqgtoohd0418-73-69 13:06:00 Test Item Value Reference Range Interpretation Comments Color, UA (test code YELLOW YELLOW = 5778-6) Appearance (test CLEAR CLEAR code = 5767-9) Specific gravity, 1.013 1.001-1.035 urine (test code = 5811-5) pH, urine (test code 7.5 5.0-8.0 = 5803-2) Glucose, urine (test NEGATIVE NEGATIVE code = 71435-9) Bilirubin, UA (test NEGATIVE NEGATIVE code = 5770-3) Ketones, UA (test NEGATIVE NEGATIVE code = 2514-8) Occult blood, urine NEGATIVE NEGATIVE (test code = 5794-3) Protein, UA (test TRACE NEGATIVE A code = 08855-3) Nitrite, UA (test NEGATIVE NEGATIVE code = [...] code = NONE SEEN See_Comment [Autom ated 82074-6) message] The system which generated this result transmitted reference range : < OR = 2 /HPF. The reference range was not used to interpr et this result as normal/abnormal . Squamous epithelial 0-5 See_Comment [Automa danielle cells, UA (test code message ] The = 26008-6) system which generated this result transmitted reference [...] RAC) Organization Information: Site ID: RGA Name: [facility] Lab Address: [address] [place] [address] Director: Robi Rodas Lab Interpretation Abnormal (test code = 45341-1) [facility] HospitalVitamin D 25 hydroxy cabmk1149-27-51 13:06:00 Test Item Value Reference Range Interpretation [...] please refer to http://educatio n.Q uestDiagnostics .co m/faq/ACW291 (T his link is being provided for informational/e sunil ational purpose s only.) BANDAR (test code = FASTING:YES FASTING: BANDAR) YES RAC (test code = Performing RAC) Organization Information: Site ID: RGA [facility] Address: [address] [place] [phone] Director: Robi Rodas [facility] HospitalComprehensive metabolic fkqik5500-35-89 13:06:00 Test Item Value Reference Interpretation Comments [...] qi/gfr%5Fcalcul ator [Automated mess age] The system TSCA generated this result transmit danielle reference range [...] . Sodium (test code = 142 mmol/L 588-976 6539-2) Potassium (test 3.8 mmol/L 3.5-5.3 code = 2823-3) Chloride (test code 100 mmol/L 98-110 = 2075-0) CO2 (test code = 32 mmol/L 20-32 2027-9) Calcium (test code 10.4 mg/dL 8.6-10.4 = 72452-0) Protein (test code 7.4 g/dL 6.1-8.1 = 2885-2) Albumin, S (test 4.8 g/dL 3.6-5.1 code = 1751-7) Globulin, total 2.6 See_Comment [Automated message] (test code = The system [employer] h 50666-1) generated this result transmit danielle reference range : 1.9 - 3.7 g/dL (merissa c). The reference r john was not used to interpret this result as normal/abnormal . Albumin/globulin 1.8 See_Comment [Automated message] ratio (test code = [employer] which 1759-0) generated this result transmit [...] RAC) Organization Information: Site ID: RGA [facility] Address: [address] [place] [address] Director: Robi Rodas Lab Interpretation Abnormal (test code = 80801-8) [facility] [id number] 13:06:00 Test Item Value Reference Range Interpretation [...] calculated (test <100 Desira ble code = 39234-8) range <100 m g/dL for primary prevention; <70 mg/dL for patients with C HD or diabetic patients with > or = 2 CHD risk factors. LDL-C is now calculated using the Pradeep calculation, which is a validated novel method providin g better accuracy than the Friedewald equation in the estimation of LDL-C. Geoff S S et al. MARY. 2013;310(19): 9761-2788 (http://educati on .[employer] .com/faq/IHO200 ) Cholesterol/HDL 3.3 See_Comment [Automated ratio (test code = message] The 9830-1) system which generated this result transmitted reference range : <5.0 (calc). Th e reference range was not used to interpret this result as normal/abnormal . Non-HDL cholesterol 140 See_Comment H For rolly ents with (test code = diabetes plus 1 13878-9) major ASCVD ris k factor, treatin g [...] RAC) Organization Information: Site ID: RGA Name: [facility] Lab Address: [address] [place] [phone] Director: Robi Rodas Lab Interpretation Abnormal (test code = 86150-4) [facility] [id number] 13:06:00 Test Item Value Reference Range Interpretation [...] in Diabetes(ADA). [Automated mess age] The system [employer] generated this result transmitted ref erence range: <5.7 % o f total Hgb. The reference range was not used to int erpret this result as normal/abnormal . BANDAR (test code = FASTING:YES BANDAR) FASTING: YES RAC (test code = Performing RAC) Organization Information: Site ID: [facility] Name: [facility] n Lab Address: [address] [place], [place] [phone] Director: Robi Rodas [facility] HospitalThyroid stimulating [id number] 13:06:00 Test Item Value Reference Range Interpretation Comments TSH (test code = 0.17 See_Comment L [Automated 5271-3) message] The system which generated this result transmitted reference range : 0.40 - 4.50 mIU/L. The reference range was not used to interpret this result as normal/abnormal . BNADAR (test code = FASTING:YES BANDAR) FASTING: YES RAC (test code = Performing RAC) Organization Information: Site ID: [facility] Name: [facility] n Lab Address: [address] [place] [phone] Director: Robi Rodas Lab Interpretation Abnormal (test code = 57298-6) [facility] with platelet and niwieffnrjzh0924-96-58 13:06:00 Test Item Value Reference Range Interpretation Comments WBC (test code = 10.1 See_Comment [Automated 0228-2) message] The system which generated this result [...] RAC) Organization Information: Site ID: RGA Name: [facility] Lab Address: [address] [place] [address] Director: Robi Rodas Lab Interpretation Abnormal (test code = 67358-9) [facility] HospitalUrinalysis, automated with hujxrumqrw8181-13-87 13:06:00 Test Item Value Reference Range Interpretation Comments Color, UA (test code YELLOW YELLOW = 5778-6) Appearance (test CLEAR CLEAR code = 5767-9) Specific gravity, 1.013 1.001-1.035 urine (test code = 5811-5) pH, urine (test code 7.5 5.0-8.0 = 5803-2) Glucose, urine (test NEGATIVE NEGATIVE code = 28542-9) Bilirubin, UA (test NEGATIVE NEGATIVE code = 5770-3) Ketones, UA (test NEGATIVE NEGATIVE code = 2514-8) Occult blood, urine NEGATIVE NEGATIVE (test code = 5794-3) Protein, UA (test TRACE NEGATIVE A code = 15521-1) Nitrite, UA (test NEGATIVE NEGATIVE code = [...] code = NONE SEEN See_Comment [Autom ated 29892-4) message] The system which generated this result transmitted reference range : < OR = 2 /HPF. The reference range was not used to interpr et this result as normal/abnormal . Squamous epithelial 0-5 See_Comment [Automa danielle cells, UA (test code message ] The = 80205-2) system which generated this result transmitted reference [...] RAC) Organization Information: Site ID: RGA [facility]: [facility] Address: [address] [place] [phone] Director: Robi Rodas Lab Interpretation Abnormal (test code = 85049-4) [facility] HospitalVitamin D 25 hydroxy minmd5059-76-95 13:06:00 Test Item Value Reference Range Interpretation [...] please refer to http://educatio n.Q uestDiagnostics .co m/faq/UYQ479 (T his link is being provided for informational/e sunil ational purpose s only.) BANDAR (test code = FASTING:YES FASTING: BANDAR) YES RAC (test code = Performing RAC) Organization Information: Site ID: A Name: [facility] Address: [address] [place] [address] [place] [address] Director: Robi Rodas [facility] [id number] 13:06:00 Test Item Value Reference Interpretation Comments [...] Creatinine or Cystatin Cresul t, go to [email or web address] [email or web address] rg/professional s/kdo qi/gfr%5Fcalcul ator [Automated mess age] The system TSC[employer] generated this result transmit danielle reference range : > OR = 60 mL/min/1.73m2. The reference range was not used to interpret this result as normal/abnormal . BUN/creatinine NOT APPLICABLE See_Comment [Automated message] ratio (test code = The [employer] which 3097-3) generated this result transmit danielle reference range : 6 - 22 (calc). The reference range was not used to interpret this result as normal/abnormal . Sodium (test code = 142 mmol/L 774-691 2902-2) Potassium (test 3.8 mmol/L 3.5-5.3 code = 2823-3) Chloride (test code 100 mmol/L 98-110 = 2075-0) CO2 (test code = 32 mmol/L 20-32 8-9) Calcium (test code 10.4 mg/dL 8.6-10.4 = 23969-9) Protein (test code 7.4 g/dL 6.1-8.1 = 2885-2) Albumin, S (test 4.8 g/dL 3.6-5.1 code = 1751-7) Globulin, total 2.6 See_Comment [Automated message] (test code = The system TSCA 08189-2) generated this result transmit danielle reference range [...] 1920-8) ALT (test code = 17 U/L 6-1741-6) BANDAR (test code = FASTING:YES BANDAR) FASTING: YES RAC (test code = Performing RAC) Organization Information: Site ID: RGA [facility]: [facility] Address: [address] [place] [address] Director: Robi Rodas Lab Interpretation Abnormal (test code = 11392-6) [facility] HospitalLipid [id number] 13:06:00 Test Item Value Reference Range Interpretation [...] calculated (test <100 Desira ble code = 82294-0) range <100 m g/dL for primary prevention; <70 mg/dL for patients with C HD or diabetic patients with > or = 2 CHD risk factors. LDL-C is now calculated using the Pradeep calculation, which is a validated novel method matthew g better accuracy than the Friedewald equation in the estimation of LDL-C. Geoff Elizabeth S et al. MARY. 2013;310(19): 1912-3857 (http://educati on .[employer] .com/faq/KEJ690 ) Cholesterol/HDL 3.3 See_Comment [Automated ratio (test code = message] The 9830-1) system which generated this result transmitted reference range : <5.0 (calc). Th e reference range was not used to interpret this result as normal/abnormal . Non-HDL cholesterol 140 See_Comment H For rolly ents with (test code = diabetes plus 1 17007-7) major ASCVD ris k factor, treatin g [...] RAC) Organization Information: Site ID: RGA [facility]: [facility] Address: [address] [place] [phone] Director: Robi Rodas Lab Interpretation Abnormal (test code = 88651-1) [facility] HospitalHemoglobin [id number] 13:06:00 Test Item Value Reference Range Interpretation [...] RAC) Organization Information: Site ID: A Name: [facility] Lab Address: [address] [place] [address] Director: Robi Rooneyridge [facility] HospitalThyroid stimulating [id number] 13:06:00 Test Item Value Reference Range Interpretation [...] RAC) Organization Information: Site ID: SAL Name: [facility] Lab Address: [address] [place] [phone] Director: Robi Rodas Lab Interpretation Abnormal (test code = 65509-5) [facility] HospitalCB with platelet and sggwvhacrzze6882-51-10 13:06:00 Test Item Value Reference Range Interpretation Comments WBC (test code = 10.1 See_Comment [Automated 3879-2) message] The system which generated this result transmitted reference range : 3.8 - 10.8 Thousand/uL. Th e reference range was not used to interpret this result as normal/abnormal . RBC (test code = 4.24 See_Comment [Automated 305-8) message] The system which generated this result [...] RAC) Organization Information: Site ID: RGA Name: [facility] Lab Address: [address] [place] [address] Director: Robi Rodas Lab Interpretation Abnormal (test code = 01940-6) [facility] with unplfjskpd6639-70-97 13:06:00 Test Item Value Reference Range Interpretation Comments Color, UA (test code YELLOW YELLOW = 5778-6) Appearance (test CLEAR CLEAR code = 5767-9) Specific gravity, 1.013 1.001-1.035 urine (test code = 5811-5) pH, urine (test code 7.5 5.0-8.0 = 5803-2) Glucose, urine (test NEGATIVE NEGATIVE code = 94319-9) Bilirubin, UA (test NEGATIVE NEGATIVE code = 5770-3) Ketones, UA (test NEGATIVE NEGATIVE code = 2514-8) Occult blood, urine NEGATIVE NEGATIVE (test code = 5794-3) Protein, UA (test TRACE NEGATIVE A code = 42621-4) Nitrite, UA (test NEGATIVE NEGATIVE code = [...] code = NONE SEEN See_Comment [Autom ated 61594-1) message] The system which generated this result transmitted reference range : < OR = 2 /HPF. The reference range was not used to interpr et this result as normal/abnormal . Squamous epithelial 0-5 See_Comment [Automa danielle cells, UA (test code message ] The = 76391-8) system which generated this result transmitted reference [...] = Performing RAC) Organization Information: Site ID: [facility] Name: [facility] Lab Address: [address] [place] [address] [place] [address] Director: Robi Rodas Lab Interpretation Abnormal (test code = 63869-0) [facility] HospitalVitamin D 25 hydroxy [id number] 13:06:00 Test Item Value Reference Range Interpretation [...] please refer to http://educatio n.Q uestDiagnostics .co m/faq/SMX247 (T his link is being provided for informational/e sunil ational purpose s only.) BANDAR (test code = FASTING:YES FASTING: BANDAR) YES RAC (test code = Performing RAC) Organization Information: Site ID: RGA [facility]: [facility] Address: [address] [place] [address] Director: Robi Rodas [facility] HospitalHSV 1 and 2 specific Ab [id number] 00:13:00 Test Item Value Reference Interpretation Comments [...] RAC) Organization Information: Site ID: IG Name: [facility] Lab Address: [address] [place] [phone] Director: Dr. oRbi Rodas Lab Interpretation Abnormal (test code = 28420-2) [facility] I [id number] 12:00:00 Test Item Value Reference Range Interpretation Comments Troponin I (test code = 05414-5) 0.389 ng/mL 0.00-0.045 [facility] HealthTroponin I tdbbortnv0809-65-55 12:00:00 Test Item Value Reference Range Interpretation Comments Troponin I (test code = 23684-8) 0.389 ng/mL Blood erythrocytes automated count (number/volume)2019-09-25 04:50:00 Test [...] erythrocyte mean corpuscular hemoglobin concentration (MCHC) measurement ([id number] 04:50:00 Test Item Value Reference Range Interpretation Comments Mean Corpuscular Hemoglobin Concent 32.0 % 32.0-36.0 (test code = 786-4) [facility] HealthAutomated erythrocyte distribution width [id number] 04:50:00 Test Item Value Reference Range Interpretation Comments Red Cell Distribution Width (test code 13.0 % 0.0-15.5 = 788-0) [facility] HealthAutomated blood platelet count (count/volume)2019-09-25 04:50:00 Test Item Value Reference Range Interpretation Comments Platelet Count (test code = 287 10*3/uL 130-400 777-3) [facility] HealthAutomated blood platelet mean volume ksaneltlmxc4542-50-92 04:50:00 Test Item Value Reference Range Interpretation Comments Mean Platelet Volume (test code = 10.2 fL 9.2-12.2 50344-5) [facility] HealthAutomated blood neutrophil count as percentage of total pxbnxwfxjf7391-26-72 04:50:00 Test Item Value Reference Range Interpretation Comments Neutrophils (%) (Auto) (test code = 67.2 % 50-80 770-8) [facility] HealthAutomated blood immature granulocyte count as percentage of total utclhpcekp3363-98-42 04:50:00 Test Item Value Reference Range Interpretation Comments Immature Granulocyte % (Auto) (test 0.50 % 0.0-0.43 code = 98284-2) [facility] HealthAutomated blood lymphocyte count as percentage of total noixrbbjkb6247-30-31 04:50:00 Test Item Value Reference Range Interpretation Comments Lymphocytes (%) (Auto) (test code = 20.4 % 20.0-45.0 736-9) [facility] HealthAutomated blood monocyte count as percentage of total leukocytes 2019-09-25 04:50:00 Test Item Value Reference Range Interpretation Comments Monocytes (%) (Auto) (test code = 8.0 % 2-10 5905-5) [facility] HealthAutomated blood eosinophil count as percentage of total droikwjloq0685-47-82 04:50:00 Test Item Value Reference Range Interpretation Comments Eosinophils (%) (Auto) (test code = 3.1 % 0-6 713-8) [facility] HealthAutomated blood basophil count as percentage of total leukocytes 2019-09-25 04:50:00 Test Item Value Reference Range Interpretation Comments Basophils (%) (Auto) (test code = 0.8 % 0-3 706-2) [facility] HealthAutomated blood nucleated erythrocyte count as percentage of total xdsrqalftf5058-86-91 04:50:00 Test Item Value Reference Range Interpretation Comments Nucleated Red Blood Cells % (test code 0.0 % 0-0.2 = 51660-8) [facility] HealthAutomated blood neutrophil count (number/volume)2019-09-25 04:50:00 Test Item Value Reference Range Interpretation Comments Neutrophils # (Auto) (test code = 5.2 10*3/uL 1.4-7.0 751-8) [facility] HealthAutomated blood immature granulocyte count as percentage of total ocomndvvra6779-11-48 04:50:00 Test Item Value Reference Range Interpretation Comments Immature Granulocyte # (Auto) (test 0.0400 0.0-0.0310 code = 77229-1) [facility] HealthAutomated blood lymphocyte count (number/volume)2019-09-25 04:50:00 Test Item Value Reference Range Interpretation Comments Lymphocytes # (Auto) (test code = 1.6 10*3/uL 1.2-4.0 731-0) [facility] count (number/volume)2019-09-25 04:50:00 Test Item Value Reference Range Interpretation Comments Monocytes # (Auto) (test code = 0.6 10*3/uL 0.1-0.8 742-7) [facility] HealthAutomated blood eosinophil yozhb6771-54-37 04:50:00 Test Item Value Reference Range Interpretation Comments Eosinophils # (Auto) (test code = 0.2 10*3/uL 0.0-0.6 711-2) [facility] HealthAutomated blood basophil count (number/volume)2019-09-25 04:50:00 Test Item Value Reference Range Interpretation Comments Basophils # (Auto) (test code = 0.1 10*3/uL 0.0-0.3 704-7) [facility] HealthAutomated blood leukocyte count corrected for nucleated posiifnecldh8213-56-10 04:50:00 Test Item Value Reference Range Interpretation Comments Nucleated Red Blood Cells # (test code 0.000 0-0.012 = 09096-6) [facility] erythrocyte sedimentation rate (ESR) measurement by photometricmethod (length/w7958-38-60 04:50:00 Test Item Value Reference Range Interpretation Comments Erythrocyte Sedimentation Rate (test 7 mm/h 0-20 code = 31748-1) [facility] HealthSodium measurement (moles/volume)2019-09-25 04:50:00 Test Item Value Reference Range Interpretation Comments Sodium Level (test code = 69642-9) 139 mmol/L 131-143 [facility] HealthSerum or plasma [...] 21-32 8-9) [facility] HealthSerum or plasma anion uex7690-60-80 04:50:00 Test Item Value Reference Range Interpretation Comments Anion Gap (test code = 31188-2) 7.0 mmol/L 3.0-11.0 [facility] HealthSerum or plasma urea nitrogen measurement (mass/volume)2019-09-25 04:50:00 Test Item Value Reference Range Interpretation Comments Blood Urea Nitrogen (test code = 23.0 mg/dL 7.0-18.0 3094-0) [facility] HealthSerum or plasma creatinine measurement (mass/volume)2019-09-25 04:50:00 Test Item Value Reference Range Interpretation Comments Creatinine (test code = 2160-0) 0.958 mg/dL 0.550-1.02 [facility] HealthGFR estimate [id number] 04:50:00 Test Item Value Reference Range Interpretation Comments Estimat Glomerular Filtration Rate 56 >60 (test code = 33555-6) [facility] HealthSerum or plasma glucose measurement (mass/volume)2019-09-25 04:50:00 Test Item Value Reference Range Interpretation Comments Glucose Level (test code = 2345-7) 102 mg/dL 74-106 [facility] HealthSerum or plasma calcium measurement (mass/volume)2019-09-25 04:50:00 Test Item Value Reference Range Interpretation Comments Calcium Level (test code = 53975-7) 9.5 mg/dL 8.5-10.1 [facility] HospitalSerum or plasma creatine kinase MB measurement (mass/volume) 2019-09-25 04:50:00 Test Item Value Reference Range Interpretation Comments Creatine Kinase MB (test code = 3.3 ng/mL 0.3-3.6 56735-5) [facility] C reactive protein measurement (mass/volume) 2019-09-25 04:50:00 Test Item Value Reference Range Interpretation Comments C-Reactive Protein, Quantitative < 0.29 mg/dL 0.00-0.30 (test code = 1988-5) [facility] leukocyte count (number/volume)2019-09-25 04:50:00 Test Item Value Reference Range Interpretation Comments White Blood Count (test code = 7.7 10*3/uL 4.5-10.0 6690-2) [facility] basophil count as percentage of total leukocytes 2019-09-25 04:50:00 Test Item Value Reference Range Interpretation Comments Basophils (%) (Auto) (test code = 0.8 % 706-2) Automated blood nucleated erythrocyte count as percentage of total leukocytes 2019-09-25 04:50:00 Test Item Value Reference Range Interpretation Comments Nucleated Red Blood Cells % (test code 0.0 % = 66558-1) Automated blood neutrophil count (number/volume)2019-09-25 04:50:00 Test Item Value Reference Range Interpretation Comments Neutrophils # (Auto) (test code = 5.2 10*3/uL 751-8) Automated blood immature granulocyte count as percentage of total leukocytes 2019-09-25 04:50:00 Test Item Value Reference Range Interpretation Comments Immature Granulocyte # (Auto) (test 0.0400 code = 67716-2) Automated blood lymphocyte count (number/volume)2019-09-25 04:50:00 Test Item Value Reference Range Interpretation Comments Lymphocytes # (Auto) (test code = 1.6 10*3/uL 731-0) Blood monocytes automated count (number/volume)2019-09-25 04:50:00 Test Item Value Reference Range Interpretation Comments Monocytes # (Auto) (test code = 0.6 10*3/uL 742-7) Automated blood eosinophil [id number] 04:50:00 Test Item Value Reference Range Interpretation Comments Eosinophils # (Auto) (test code = 0.2 10*3/uL 711-2) Automated blood basophil count (number/volume)2019-09-25 04:50:00 Test Item Value Reference Range Interpretation Comments Basophils # (Auto) (test code = 0.1 10*3/uL 704-7) Automated blood leukocyte count corrected for nucleated nxjmndffrwku8209-65-98 04:50:00 Test Item Value Reference Range Interpretation Comments Nucleated Red Blood Cells # (test code 0.000 = 37066-3) Blood erythrocyte sedimentation rate (ESR) measurement by photometricmethod (length/[id number] 04:50:00 Test Item Value Reference Range Interpretation Comments Erythrocyte Sedimentation Rate (test 7 mm/h code = 40672-9) Sodium measurement (moles/volume)2019-09-25 04:50:00 Test Item Value Reference Range Interpretation Comments Sodium Level (test code = 27825-6) 139 mmol/L Serum or plasma potassium measurement [...] 27 mmol/L 8-9) Serum or plasma anion jwr8698-90-15 04:50:00 Test Item Value Reference Range Interpretation Comments Anion Gap (test code = 90662-5) 7.0 mmol/L Serum or plasma urea nitrogen measurement (mass/volume)2019-09-25 04:50:00 Test Item Value Reference Range Interpretation Comments Blood Urea Nitrogen (test code = 23.0 mg/dL 3094-0) Serum or plasma creatinine measurement (mass/volume)2019-09-25 04:50:00 Test Item Value Reference Range Interpretation Comments Creatinine (test code = 2160-0) 0.958 mg/dL GFR estimate [id number] 04:50:00 Test Item Value Reference Range Interpretation Comments Estimat Glomerular Filtration Rate 56 (test code = 57755-7) Serum or plasma glucose measurement (mass/volume)2019-09-25 04:50:00 Test Item Value Reference Range Interpretation Comments Glucose Level (test code = 2345-7) 102 mg/dL Serum or plasma calcium measurement (mass/volume)2019-09-25 04:50:00 Test Item Value Reference Range Interpretation Comments Calcium Level (test code = 54651-7) 9.5 mg/dL Serum or plasma creatine kinase MB measurement (mass/volume)2019-09-25 04:50:00 Test Item Value Reference Range Interpretation Comments Creatine Kinase MB (test code = 3.3 ng/mL 65690-9) Serum or plasma C reactive protein measurement [...] % Automated erythrocyte mean corpuscular volume (MCV) viuffcjqage5897-79-21 04:50:00 Test Item Value Reference Range Interpretation Comments Mean Corpuscular Volume (test code = 91.4 fL 787-2) Automated erythrocyte mean corpuscular hemoglobin (mass per erythrocyte) 2019-09-25 04:50:00 Test Item Value Reference Range Interpretation Comments Mean Corpuscular Hemoglobin (test 29.3 pg code = 785-6) Automated erythrocyte mean corpuscular hemoglobin concentration (MCHC) measurement ([id number] 04:50:00 Test Item Value Reference Range Interpretation Comments Mean Corpuscular Hemoglobin Concent 32.0 % (test code = 786-4) Automated erythrocyte distribution width qhuwt5795-74-14 04:50:00 Test Item Value Reference Range Interpretation Comments Red Cell Distribution Width (test code 13.0 % = 788-0) Automated blood platelet count (count/volume)2019-09-25 04:50:00 Test Item Value Reference Range Interpretation Comments Platelet Count (test code = 287 10*3/uL 777-3) Automated blood platelet mean volume eeursvaxfdi7055-91-41 04:50:00 Test Item Value Reference Range Interpretation Comments Mean Platelet Volume (test code = 10.2 fL 83723-5) Automated blood neutrophil count as percentage of total yjsgtmfcbr4677-19-89 04:50:00 Test Item Value Reference Range Interpretation Comments Neutrophils (%) (Auto) (test code = 67.2 % 770-8) Automated blood immature granulocyte count as percentage of total leukocytes 2019-09-25 04:50:00 Test Item Value Reference Range Interpretation Comments Immature Granulocyte % (Auto) (test 0.50 % code = 67375-0) Automated blood lymphocyte count as percentage of total tvcoklqyjr0378-14-64 04:50:00 Test Item Value Reference Range Interpretation Comments Lymphocytes (%) (Auto) (test code = 20.4 % 736-9) Automated blood monocyte count as percentage of total hzpqduwpek4625-36-15 04:50:00 Test Item Value Reference Range Interpretation Comments Monocytes (%) (Auto) (test code = 8.0 % 5905-5) Automated blood eosinophil count as percentage of total oskwqfjmfh7273-57-17 04:50:00 Test Item Value Reference Range Interpretation Comments Eosinophils (%) (Auto) (test code = 3.1 % 713-8) Serum or plasma magnesium measurement (mass/volume)2019-09-24 22:42:00 Test Item Value Reference Range Interpretation Comments Magnesium Level (test code = 2.3 mg/dL 1.6-2.6 18548-6) [facility] or plasma total bilirubin measurement [...] (test code = 53 U/L 45-117 6768-6) [facility]ttqp8805[facility]43[facility]11 22:42:00 Test Item Value Reference Range Interpretation Comments Lactic Acid Level (test code = 1.0 mmol/L 0.4-1.9 2524-7) [facility] or plasma creatine kinase measurement (enzymatic activity/volume)2019-09-24 22:42:00 Test Item Value Reference Range Interpretation Comments Total Creatine Kinase (test code = 413 U/L 26-192 2157-6) [facility] total creatine kinase/creatine kinase MB isoenzyme activity fczqy0943-45-86 22:42:00 Test Item Value Reference Range Interpretation Comments Creatine Kinase MB Relative Index (test 0.5 % 0-4 code = 2158-4) [facility] iqerebaxz0513-49-76 22:42:00 Test Item Value Reference Range Interpretation Comments Troponin I (test code = 36130-8) 0.059 ng/mL 0.00-0.045 [facility]um or plasma brain natriuretic peptide (BNP) measurement 2019-09-24 22:42:00 Test Item Value Reference Range Interpretation Comments B-Type Natriuretic Peptide (test 40 pg/mL 0.0-100 code = 29931-0) [facility] thyrotropin measurement by detection limit <=0.005 miu/l (units/olzcj1018-44-04 22:42:00 Test Item Value Reference Range Interpretation Comments Thyroid Stimulating Hormone 7.670 u[iU]/mL 0.358-3.74 (TSH) (test code = 78863-6) [facility] procalcitonin measurement (mass/volume)2019-09-24 22:42:00 Test Item Value Reference Range Interpretation Comments Procalcitonin (test code = < 0.05 ng/mL 0.0-0.5 43673-8) [facility] blood prothrombin txkj3838-36-69 22:42:00 Test Item Value Reference Range Interpretation Comments Prothrombin Time (test code = 5964-2) 11.4 s 10.2-12.9 [facility] Platelet poor plasma by Coagulation xzgma2918-56-86 22:42:00 Test Item Value Reference Range Interpretation Comments Prothromb Time International Ratio 1.0 {INR} 0.9-1.1 (test code = 6301-6) [facility] (PTT[facility] in platelet poor plasma 2019-09-24 22:42:00 Test Item Value Reference Range Interpretation Comments Activated Partial Thromboplast Time 31.7 s 25.1-36.5 (test code = 28247-3) [facility] FEU sost4597-59-52 22:42:00 Test Item Value Reference Range Interpretation Comments D-Dimer (test code = 61912-9) 262 ng/mL{FEU} 0.00-500 [facility] blood prothrombin qewr0085-56-99 22:42:00 Test Item Value Reference Range Interpretation Comments Prothrombin Time (test code = 5964-2) 11.4 s INR in Platelet poor plasma by Coagulation bsljo9277-65-27 22:42:00 Test Item Value Reference Range Interpretation Comments Prothromb Time International Ratio 1.0 {INR} (test code = 6301-6) Partial thromboplastin time (PTT) in platelet poor bexkol4322-04-10 22:42:00 Test Item Value Reference Range Interpretation Comments Activated Partial Thromboplast Time 31.7 s (test code = 70324-5) Fibrin D-dimer FEU xspq2311-92-46 22:42:00 Test Item Value Reference Range Interpretation Comments D-Dimer (test code = 77876-0) 262 ng/mL{FEU} Serum or plasma magnesium measurement (mass/volume)2019-09-24 22:42:00 Test Item Value Reference Range Interpretation Comments Magnesium Level (test code = 2.3 mg/dL 16961-4) Serum or plasma total bilirubin measurement (mass/volume)2019-09-24 [...] (test code = 53 U/L 6768-6) Lactate ser/gvsk0472-69-26 22:42:00 Test Item Value Reference Range Interpretation Comments Lactic Acid Level (test code = 1.0 mmol/L 2524-7) Serum or plasma creatine kinase measurement (enzymatic activity/volume) 2019-09-24 22:42:00 Test Item Value Reference Range Interpretation Comments Total Creatine Kinase (test code = 413 U/L 2157-6) Serum or plasma total creatine kinase/creatine kinase MB isoenzyme activity bgujt1467-47-70 22:42:00 Test Item Value Reference Range Interpretation Comments Creatine Kinase MB Relative Index (test 0.5 % code = 2158-4) Troponin I ijamxnpnq6360-22-51 22:42:00 Test Item Value Reference Range Interpretation Comments Troponin I (test code = 44815-1) 0.059 ng/mL Serum or plasma brain natriuretic peptide (BNP) hrzkpgctozz2742-99-83 22:42:00 Test Item Value Reference Range Interpretation Comments B-Type Natriuretic Peptide (test 40 pg/mL code = 72291-5) Serum or plasma thyrotropin measurement by detection limit <=0.005 miu/l (units/oisro7515-06-60 22:42:00 Test Item Value Reference Range Interpretation Comments Thyroid Stimulating Hormone 7.670 u[iU]/mL (TSH) (test code = 67255-3) Serum or plasma procalcitonin measurement (mass/volume)2019-09-24 22:42:00 Test Item Value Reference Range Interpretation Comments Procalcitonin (test code = < 0.05 ng/mL 17712-6) Automated bacteria count in urine sediment (number/area)2019-09-24 22:33:00 Test Item Value Reference Range Interpretation Comments Urine Bacteria (test None /[HPF] See_Comment [Autom ated message] code = 70731-8) The system w [facility] generated this result transmitted ref erence range: 0-+/-. T he reference range was not used to int erpret this result as normal/abnormal . [facility]urepaxAutomated mucus count in urine sediment (number/area)2019-09-24 22:33:00 Test Item Value Reference Range Interpretation Comments Urine Mucus (test +/- /[LPF] See_Comment [Automate d message] The code = 05843-7) system which generated this result tra nsmitted reference range : 0-1+. The reference r john was not used to int erpret this result as normal/abnormal . [facility] HealthAutomated urine yeast count (number/area)2019-09-24 22:33:00 Test Item Value Reference Range Interpretation Comments Urine Yeast (Budding) (test code Rare /[HPF] None Seen = 02689-7) [facility] comment [id number] 22:33:00 Test Item Value Reference Range Interpretation Comments Urine Culture Indicated Yes, Criteria Met (test code = 8264-4) [facility] HealthBacterial urine kbcarme8842-35-79 22:33:00 Test Item Value Reference Range Interpretation Comments Urine Culture (test No growth in 18-24 code = 630-4) hours [facility] HealthAutomated urine color zevxtctkjpkac0308-11-10 22:33:00 Test Item Value Reference Range Interpretation Comments Urine Color (test code = 36844-5) Yellow Yellow [facility] HealthClarity in Urine by Refractometry vwugdyipd1158-36-23 22:33:00 Test Item Value Reference Range Interpretation Comments Urine Appearance (test code = 38660-0) Clear Clear [facility] HealthUrine pH measurement by test ntjub9672-97-28 22:33:00 Test Item Value Reference Range Interpretation Comments Urine pH (test code = 5803-2) 7.5 [pH] 5.0-8.0 [facility] HealthAutomated urine specific gravity by huaohkivasvyl9160-10-22 22:33:00 Test Item Value Reference Range Interpretation Comments Urine Specific [place] (test code = 1.009 1.005-1.030 44881-7) [facility] HealthAutomated urine protein bqpldglqlyu8648-22-90 22:33:00 Test Item Value Reference Range Interpretation Comments Urine Protein (test code = Negative mg/dL Negative 27771022) [facility] HealthAutomated urine glucose gktgxwycl4535-83-40 22:33:00 Test Item Value Reference Range Interpretation Comments Urine Glucose (UA) (test code Negative mg/dL Negative = 49565-9) [facility] HealthUrine ketones detection by automated test cuoks6699-50-41 22:33:00 Test Item Value Reference Range Interpretation Comments Urine Ketones (test code = Negative mg/dL Negative 41708-1) [facility] HealthUrine erythrocytes detection by automated dqykcr9017-43-97 22:33:00 Test Item Value Reference Range Interpretation Comments Urine Occult Blood (test code = Negative Negative 04840-5) [facility] HealthAutomated urine nitrite njnrqmfuzau3172-22-88 22:33:00 Test Item Value Reference Range Interpretation Comments Urine Nitrite (test code = 93575-3) Negative Negative [facility] HealthUrine total bilirubin detection by automated test fpdjm6131-34-64 22:33:00 Test Item Value Reference Range Interpretation Comments Urine Bilirubin (test code = Negative Negative 52363-8) [facility] HealthAutomated urine urobilinogen cpbaefuhaul1479-04-96 22:33:00 Test Item Value Reference Range Interpretation Comments Urine Urobilinogen (test code = Normal mg/dL Normal 00777195) [facility] leukocytes detection by automated ovgeie2838-73-90 22:33:00 Test Item Value Reference Range Interpretation Comments Urine Leukocyte Esterase (test 250 {Marianna}/uL Negative code = 51088-2) [facility] HealthAutomated erythrocytes count in urine sediment (number/area) 2019-09-24 22:33:00 Test Item Value Reference Range Interpretation Comments Urine RBC (test code = 24004-2) 0-2 /[HPF] 0-2 [facility] HealthAutomated leukocytes count in urine sediment (number/area) 2019-09-24 22:33:00 Test Item Value Reference Range Interpretation Comments Urine WBC (test code = 15067-3) 10-20 /[HPF] 0-2 [facility] HealthAutomated squamous epithelial cells count in urine sediment (number/area)2019-09-24 22:33:00 Test Item Value Reference Range Interpretation Comments Urine Squamous Rare /[LPF] See_Comment [Automated m essage] Epithelial Cells The system which (test code = 13649-5) genera danielle this result transmitted ref erence range: 0 - 1+. The reference range was not used to int erpret this result as normal/abnormal . [facility] HealthAutomated urine sediment crystal count (number/area)2019-09-24 22:33:00 Test Item Value Reference Range Interpretation Comments Urine Other Crystals (test +/- Rare /[LPF] None Seen code = 66361-5) [facility] HealthAutomated urine color xdsfokdnifzio3634-62-76 22:33:00 Test Item Value Reference Range Interpretation Comments Urine Color (test code = 89165-5) Yellow Clarity in Urine by Refractometry xmhmqswkg4893-60-67 22:33:00 Test Item Value Reference Range Interpretation Comments Urine Appearance (test code = 30620-8) Clear Urine pH measurement by test mfted4620-47-68 22:33:00 Test Item Value Reference Range Interpretation Comments Urine pH (test code = 5803-2) 7.5 [pH] Automated urine specific gravity by jtzmyzimrarjy7276-51-20 22:33:00 Test Item Value Reference Range Interpretation Comments Urine Specific [place] (test code = 1.009 60963-4) Automated urine protein wrnqepccizg4225-53-03 22:33:00 Test Item Value Reference Range Interpretation Comments Urine Protein (test code = Negative mg/dL 59045402) Automated urine glucose idkepschb2713-18-25 22:33:00 Test Item Value Reference Range Interpretation Comments Urine Glucose (UA) (test code Negative mg/dL = 83280-5) Urine ketones detection by automated test fdtih7448-10-40 22:33:00 Test Item Value Reference Range Interpretation Comments Urine Ketones (test code = Negative mg/dL 31305-8) Urine erythrocytes detection by automated sersmo4352-76-15 22:33:00 Test Item Value Reference Range Interpretation Comments Urine Occult Blood (test code = Negative 85573-7) Automated urine nitrite kiaumvazpqd8049-67-33 22:33:00 Test Item Value Reference Range Interpretation Comments Urine Nitrite (test code = 70334-0) Negative Urine total bilirubin detection by automated test hnfwc0734-10-60 22:33:00 Test Item Value Reference Range Interpretation Comments Urine Bilirubin (test code = Negative 45885-2) Automated urine urobilinogen doyzxuglwom2565-02-03 22:33:00 Test Item Value Reference Range Interpretation Comments Urine Urobilinogen (test code = Normal mg/dL 78666114) Urine leukocytes detection by automated pqglwu1230-43-19 22:33:00 Test Item Value Reference Range Interpretation Comments Urine Leukocyte Esterase (test 250 {Marianna}/uL code = 76759-6) Automated erythrocytes count in urine sediment (number/area)2019-09-24 22:33:00 Test Item Value Reference Range Interpretation Comments Urine RBC (test code = 94786-5) 0-2 /[HPF] Automated leukocytes count in urine sediment (number/area)2019-09-24 22:33:00 Test Item Value Reference Range Interpretation Comments Urine WBC (test code = 70622-3) 10-20 /[HPF] Automated squamous epithelial cells count in urine sediment (number/area) 2019-09-24 22:33:00 Test Item Value Reference Range Interpretation Comments Urine Squamous Epithelial Cells Rare /[LPF] (test code = 64774-4) Automated urine sediment crystal count (number/area)2019-09-24 22:33:00 Test Item Value Reference Range Interpretation Comments Urine Other Crystals (test +/- Rare /[LPF] code = 19937-5) Automated bacteria count in urine sediment (number/area)2019-09-24 22:33:00 Test Item Value Reference Range Interpretation Comments Urine Bacteria (test code = None /[HPF] 47085-6) Automated mucus count in urine sediment (number/area)2019-09-24 22:33:00 Test Item Value Reference Range Interpretation Comments Urine Mucus (test code = 37027-8) +/- /[LPF] Automated urine yeast count (number/area)2019-09-24 22:33:00 Test Item Value Reference Range Interpretation Comments Urine Yeast (Budding) (test code Rare /[HPF] = 28884-6) Service comment 22:33:00 Test Item Value Reference Range Interpretation Comments Urine Culture Indicated Yes, Criteria Met (test code = 8264-4) Bacterial urine owbhydz6795-90-59 22:33:00 Test Item Value Reference Range Interpretation Comments Urine Culture (test No growth in 18-24 code = 630-4) hours BASIC METABOLIC [id number] 02:06:00 Test Item Value Reference Range Interpretation [...] CALCIUM (test code = MG/DL 8.7-9.7 CA) QURSGUDWQ3298-18-21 02:06:00 Test Item Value Reference Range Interpretation Comments MAGNESIUM (test code = MAG) MG/DL 1.6-2.3 BASIC METABOLIC [id number] 02:06:00 Test Item Value Reference Range Interpretation [...] CALCIUM (test code = MG/DL 8.7-9.7 CA) BWFUGFWGK2532-28-17 02:06:00 Test Item Value Reference Range Interpretation Comments MAGNESIUM (test code = MAG) MG/DL 1.6-2.3 BASIC METABOLIC [id number] 02:06:00 Test Item Value Reference Range Interpretation [...] code = 10.3 MG/DL 8.4-10.2 H CA) [id number] 02:06:00 Test Item Value Reference Range Interpretation Comments MAGNESIUM (test code = MAG) MG/DL 1.6-2.3 BASIC METABOLIC [id number] 02:06:00 Test Item Value Reference Range Interpretation [...] code = 10.3 MG/DL 8.4-10.2 H CA) [id number] 02:06:00 Test Item Value Reference Range Interpretation Comments MAGNESIUM (test code = MAG) 1.7 MG/DL 1.6-2.3 BASIC METABOLIC [id number] 02:03:00 Test Item Value Reference Range Interpretation [...] CALCIUM (test code = CA) MG/DL 8.7-9.7 [id number] 02:03:00 Test Item Value Reference Range Interpretation Comments MAGNESIUM (test code = MAG) MG/DL 1.6-2.3 CBC W/AUTO [id number] 01:51:00 Test Item Value Reference Range Interpretation [...] K/mm3 0.0-0.1 N NRBC#) - XR CHEST [id number] 11:06:00 Patient Name: DEBI GARRETT Unit No: [id number] EXAMS: CPT CODE: [id number] XR CHEST 1V [id number] Site ID: [id number] HISTORY: Pneumothorax COMPARISON: Chest [...] [email or web address] Orig Print D/T: S: 08/10/2019 (1110) [facility] NAME: DEBI GARRETT [id number] PHYS: Abdul[place] [address] : 1935 AGE: 84 SEX: F LOC: Z.SI05 A PHONE #: [phone] EXAM DATE: 08/10/2019 STATUS: ADM IN FAX #: [phone] RADIOLOGY NO: PAGE 1 Signed ReportBASIC METABOLIC [id number] 05:07:00 Test Item Value Reference Range Interpretation [...] code = 10.6 MG/DL 8.4-10.2 H CA) [id number] 05:07:00 Test Item Value Reference Range Interpretation Comments PHOSPHOROUS (test code = PHOS) 3.3 MG/DL 2.5-4.5 N [id number] 05:07:00 Test Item Value Reference Range Interpretation Comments MAGNESIUM (test code = MAG) 2.2 MG/DL 1.6-2.3 BASIC METABOLIC [id number] 05:04:00 Test Item Value Reference Range Interpretation [...] CALCIUM (test code = MG/DL 8.7-9.7 CA) [id number] 05:04:00 Test Item Value Reference Range Interpretation Comments PHOSPHOROUS (test code = PHOS) MG/DL 2.5-4.5 [id number] 05:04:00 Test Item Value Reference Range Interpretation Comments MAGNESIUM (test code = MAG) MG/DL 1.6-2.3 BASIC METABOLIC [id number] 05:01:00 Test Item Value Reference Range Interpretation [...] CALCIUM (test code = CA) MG/DL 8.7-9.7 [id number] 05:01:00 Test Item Value Reference Range Interpretation Comments PHOSPHOROUS (test code = PHOS) MG/DL 2.5-4.5 [id number] 05:01:00 Test Item Value Reference Range Interpretation Comments MAGNESIUM (test code = MAG) MG/DL 1.6-2.3 CBC W/AUTO [id number] 04:48:00 Test Item Value Reference Range Interpretation [...] 0.00 K/mm3 0.0-0.1 N NRBC#) BASIC METABOLIC [id number] 23:31:00 Test Item Value Reference Range Interpretation [...] code = 10.1 MG/DL 8.4-10.2 N CA) [id number] 23:31:00 Test Item Value Reference Range Interpretation Comments MAGNESIUM (test code = MAG) 1.8 MG/DL 1.6-2.3 N BASIC METABOLIC [id number] 23:28:00 Test Item Value Reference Range Interpretation [...] CALCIUM (test code = MG/DL 8.7-9.7 CA) [id number] 23:28:00 Test Item Value Reference Range Interpretation Comments MAGNESIUM (test code = MAG) MG/DL 1.6-2.3 BASIC METABOLIC [id number] 23:25:00 Test Item Value Reference Range Interpretation [...] CALCIUM (test code = CA) MG/DL 8.7-9.7 [id number] 23:25:00 Test Item Value Reference Range Interpretation Comments MAGNESIUM (test code = MAG) MG/DL 1.6-2.3 BASIC METABOLIC [id number] 22:21:00 Test Item Value Reference Range Interpretation [...] code = 9.3 MG/DL 8.4-10.2 N CA) [id number] 22:21:00 Test Item Value Reference Range Interpretation Comments MAGNESIUM (test code = MAG) 1.6 MG/DL 1.6-2.3 N BASIC METABOLIC [id number] 21:36:00 Test Item Value Reference Range Interpretation [...] code = CA) 9.3 MG/DL 8.4-10.2 N [id number] 21:36:00 Test Item Value Reference Range Interpretation Comments MAGNESIUM (test code = MAG) 1.6 MG/DL 1.6-2.3 N BASIC METABOLIC [id number] 21:35:00 Test Item Value Reference Range Interpretation [...] CALCIUM (test code = CA) MG/DL 8.7-9.7 [id number] 21:35:00 Test Item Value Reference Range Interpretation Comments MAGNESIUM (test code = MAG) MG/DL 1.6-2.3 CBC W/AUTO [id number] 21:25:00 Test Item Value Reference Range Interpretation [...] 0.0-0.1 N NRBC#) - MRI BRAIN W/O [id number] 11:43:00 Patient Name: DEBI GARRETT Unit No: [id number] EXAMS: CPT CODE: [id number] MRI BRAIN W/O CONTRAST 91804 CLINICAL INFORMATION: Ataxia. Right internal carotid artery stenosis.. Dictation Location: B2 COMPARISON: Head CT 08/08/2019 reported no acute finding. Technique: Sagittal, axial and coronal scans were done with T1, T2, FLAIR, gradient , and diffusion weighted imaging. FINDINGS: There isno hydrocephalus, atrophy, midline shift or mass effect. No abnormal extra-axial fluid collection isidentified. There is no intrinsic brain mass or recent ischemia. Mild to moderate deep white mattermicrovascular changes are seen. The orbits, paranasal sinuses [...] Laura Wei (RT)(R) Transcrpt Date/Tm/Trnsp: 08/09/2019 (1143) [email or web address] Orig Print D/T: S: 08/09/2019 (1146) [facility] NAME: DEBI GARRETT [address] PHYS: [place] [address] : 1935 AGE: 84 SEX: F LOC: Z.SI05 A PHONE #: EXAM DATE: 08/09/2019 STATUS: ADM IN FAX #: [phone] RADIOLOGY NO: PAGE 1 Signed ReportURINALYSIS [id number] 22:47:00 Test Item Value Reference Range Interpretation [...] UACULT) Criteria SOURCE OF URINE: STRAIGHT CATHETERURINALYSIS [id number] 22:45:00 Test Item Value Reference Range Interpretation [...] UACULT) SOURCE OF URINE: STRAIGHT CATHETERBASIC METABOLIC [id number] 13:12:00 Test Item Value Reference Range Interpretation [...] code = 9.8 MG/DL 8.4-10.2 N CA) [id number] 13:12:00 Test Item Value Reference Range Interpretation Comments PHOSPHOROUS (test code = PHOS) 2.6 MG/DL 2.5-4.5 N [id number] 13:12:00 Test Item Value Reference Range Interpretation Comments MAGNESIUM (test code = MAG) 2.3 MG/DL 1.6-2.3 N T3,T4 [id number] 13:12:00 Test Item Value Reference Range Interpretation Comments T3 UPTAKE (test code = T3UP) 33.3 % UP 23.5-40.5 N T4 (THYROXINE) (test code = T4) 13.10 UG/DL 5.53-11.0 H T7 (FREE THYROXINE INDEX) (test 4.4 1.2-4.3 H code = T7) THYROID STIMULATING [id number] 13:12:00 Test Item Value Reference Range Interpretation Comments THYROID STIMULATING 3.590 MIU/L 0.465-4.68 N Please b e aware that HORMONE (test code = bias re sults for TSH TSH) may occur forpa tient who are taking Biotin suppleme nts. T4 [id number] 12:43:00 Test Item Value Reference Range Interpretation Comments T4 FREE (test code = T4F) 2.1 NG/DL 0.78-2.19 N BASIC METABOLIC [id number] 12:41:00 Test Item Value Reference Range Interpretation [...] code = 9.8 MG/DL 8.4-10.2 N CA) [id number] 12:41:00 Test Item Value Reference Range Interpretation Comments PHOSPHOROUS (test code = PHOS) 2.6 MG/DL 2.5-4.5 N [id number] 12:41:00 Test Item Value Reference Range Interpretation Comments MAGNESIUM (test code = MAG) 2.3 MG/DL 1.6-2.3 N T3,T4 [id number] 12:41:00 Test Item Value Reference Range Interpretation Comments T3 UPTAKE (test code = T3UP) 33.3 % UP 23.5-40.5 N T4 (THYROXINE) (test code = T4) 13.10 UG/DL 5.53-11.0 H T7 (FREE THYROXINE INDEX) (test 4.4 1.2-4.3 H code = T7) THYROID STIMULATING [id number] 12:41:00 Test Item Value Reference Range Interpretation Comments THYROID STIMULATING HORMONE (test code MIU/L 0.465-4.68 = TSH) CBC W/AUTO [id number] 12:39:00 Test Item Value Reference Range Interpretation [...] 0.00 K/mm3 0.0-0.1 N NRBC#) BASIC METABOLIC [id number] 12:26:00 Test Item Value Reference Range Interpretation [...] code = 9.8 MG/DL 8.4-10.2 N CA) [id number] 12:26:00 Test Item Value Reference Range Interpretation Comments PHOSPHOROUS (test code = PHOS) 2.6 MG/DL 2.5-4.5 N [id number] 12:26:00 Test Item Value Reference Range Interpretation Comments MAGNESIUM (test code = MAG) 2.3 MG/DL 1.6-2.3 N T3,T4 [id number] 12:26:00 Test Item Value Reference Range Interpretation Comments T3 UPTAKE (test code = T3UP) % UP 23.5-40.5 T4 (THYROXINE) (test code = T4) UG/DL 5.53-11.0 T7 (FREE THYROXINE INDEX) (test code = 1.2-4.3 T7) THYROID STIMULATING [id number] 12:26:00 Test Item Value Reference Range Interpretation Comments THYROID STIMULATING HORMONE (test code MIU/L 0.465-4.68 = TSH) BASIC METABOLIC [id number] 12:25:00 Test Item Value Reference Range Interpretation [...] CALCIUM (test code = MG/DL 8.7-9.7 CA) [id number] 12:25:00 Test Item Value Reference Range Interpretation Comments PHOSPHOROUS (test code = PHOS) MG/DL 2.5-4.5 [id number] 12:25:00 Test Item Value Reference Range Interpretation Comments MAGNESIUM (test code = MAG) MG/DL 1.6-2.3 T3,T4 [id number] 12:25:00 Test Item Value Reference Range Interpretation Comments T3 UPTAKE (test code = T3UP) % UP 23.5-40.5 T4 (THYROXINE) (test code = T4) UG/DL 5.53-11.0 T7 (FREE THYROXINE INDEX) (test code = 1.2-4.3 T7) THYROID STIMULATING [id number] 12:25:00 Test Item Value Reference Range Interpretation Comments THYROID STIMULATING HORMONE (test code MIU/L 0.465-4.68 = TSH) BASIC METABOLIC [id number] 12:25:00 Test Item Value Reference Range Interpretation [...] CALCIUM (test code = MG/DL 8.7-9.7 CA) [id number] 12:25:00 Test Item Value Reference Range Interpretation Comments PHOSPHOROUS (test code = PHOS) MG/DL 2.5-4.5 [id number] 12:25:00 Test Item Value Reference Range Interpretation Comments MAGNESIUM (test code = MAG) MG/DL 1.6-2.3 T3,T4 [id number] 12:25:00 Test Item Value Reference Range Interpretation Comments T3 UPTAKE (test code = T3UP) % UP 23.5-40.5 T4 (THYROXINE) (test code = T4) UG/DL 5.53-11.0 T7 (FREE THYROXINE INDEX) (test code = 1.2-4.3 T7) THYROID STIMULATING [id number] 12:25:00 Test Item Value Reference Range Interpretation Comments THYROID STIMULATING HORMONE (test code MIU/L 0.465-4.68 = TSH) BASIC METABOLIC [id number] 12:25:00 Test Item Value Reference Range Interpretation [...] CALCIUM (test code = MG/DL 8.7-9.7 CA) [id number] 12:25:00 Test Item Value Reference Range Interpretation Comments PHOSPHOROUS (test code = PHOS) MG/DL 2.5-4.5 [id number] 12:25:00 Test Item Value Reference Range Interpretation Comments MAGNESIUM (test code = MAG) MG/DL 1.6-2.3 T3,T4 [id number] 12:25:00 Test Item Value Reference Range Interpretation Comments T3 UPTAKE (test code = T3UP) % UP 23.5-40.5 T4 (THYROXINE) (test code = T4) UG/DL 5.53-11.0 T7 (FREE THYROXINE INDEX) (test code = 1.2-4.3 T7) THYROID STIMULATING [id number] 12:25:00 Test Item Value Reference Range Interpretation Comments THYROID STIMULATING HORMONE (test code MIU/L 0.465-4.68 = TSH) BASIC METABOLIC [id number] 12:23:00 Test Item Value Reference Range Interpretation [...] CALCIUM (test code = CA) MG/DL 8.7-9.7 [id number] 12:23:00 Test Item Value Reference Range Interpretation Comments PHOSPHOROUS (test code = PHOS) MG/DL 2.5-4.5 [id number] 12:23:00 Test Item Value Reference Range Interpretation Comments MAGNESIUM (test code = MAG) MG/DL 1.6-2.3 T3,T4 [id number] 12:23:00 Test Item Value Reference Range Interpretation Comments T3 UPTAKE (test code = T3UP) % UP 23.5-40.5 T4 (THYROXINE) (test code = T4) UG/DL 5.53-11.0 T7 (FREE THYROXINE INDEX) (test code = 1.2-4.3 T7) THYROID STIMULATING [id number] 12:23:00 Test Item Value Reference Range Interpretation Comments THYROID STIMULATING HORMONE (test code MIU/L 0.465-4.68 = TSH) BASIC METABOLIC [id number] 12:22:00 Test Item Value Reference Range Interpretation [...] CALCIUM (test code = CA) MG/DL 8.7-9.7 [id number] 12:22:00 Test Item Value Reference Range Interpretation Comments PHOSPHOROUS (test code = PHOS) MG/DL 2.5-4.5 [id number] 12:22:00 Test Item Value Reference Range Interpretation Comments MAGNESIUM (test code = MAG) MG/DL 1.6-2.3 T3,T4 [id number] 12:22:00 Test Item Value Reference Range Interpretation Comments T3 UPTAKE (test code = T3UP) % UP 23.5-40.5 T4 (THYROXINE) (test code = T4) UG/DL 5.53-11.0 T7 (FREE THYROXINE INDEX) (test code = 1.2-4.3 T7) THYROID STIMULATING [id number] 12:22:00 Test Item Value Reference Range Interpretation Comments THYROID STIMULATING HORMONE (test code MIU/L 0.465-4.68 = TSH) - XR HIP W/PEL UNI 2+V [id number] 11:43:00 Patient Name: DEBI GARRETT Unit No: [id number] EXAMS: CPT CODE: [id number] XR HIP W/PEL UNI 2+V [place] [address] EXAM: - XR HIP W/PEL UNI 2+V [...] Guevara MD CC: Poli Aaron; Jana Acosta MONUMENT INSTALLER Technologist: Britney Myers RT (R) Transcrpt Date/Tm/Trnsp: 08/08/2019 (4093) t.JWR.KW9 Orig Print D/T: S: 08/08/2019 (8397) [facility] NAME: DEBI GARRETT [id number] PHYS: [email or web address] - [place] [address] : 1935 AGE: 84 SEX: F LOC: Z.SI05 A PHONE #: [phone] EXAM DATE: 08/08/2019 STATUS: ADM IN FAX #: [phone] RADIOLOGY NO: PAGE 1 Signed Report- CT HEAD/BRAIN W/O [id number] 11:40:00 Patient Name: DEBI GARRETT Unit No: [id number] EXAMS: CPT CODE: [id number] CT HEAD/BRAIN W/O CONT 79579 EXAMINATION: - CT HEAD/BRAIN W/O CONT. LOCATION: [...] nor hemorrhage. at 1140 Reported and signed by:Ever Finney CC: Poli Aaron; Jana Acosta MONUMENT INSTALL[employer] Technologist: Filipe Perez, RT(R) CTDI: DLP: Trnscrpt: 08/08/2019 (1140) t.SDR.ANS4 [facility] NAME: DEBI GARRETT PHYS: DUST[place]. [place] [address] : 1935 AGE: 84 SEX: F LOC: Z.SI05 A PHONE #: [phone] EXAM DATE: 08/08/2019 STATUS: ADM IN FAX #: [phone] RAD #: D/C DT PAGE 1 Signed Report Patient Name: DEBI GARRETT Unit No: [id number] EXAMS: CPT CODE: [id number] CT HEAD/BRAIN W/O CONT 32559 (Continued) Orig Print D/T: S: 08/08/2019 (1143)[facility] NAME: DEBI GARRETT PHYS: ELIJAHLUCIAN.Ric - [place] [address] : 1935 AGE: 84 SEX: F LOC: Z.SI05 A PHONE #: [phone] EXAM DATE: 08/08/2019 STATUS: ADM IN FAX #: [phone] RAD #: D/C DT PAGE 2 Signed Report- XR CHEST 1V 2019-08-08 08:51:00 Patient Name: DEBI GARRETT Unit No: [id number] EXAMS: CPT CODE: [id number] XR CHEST 1V 35568 EXAM: - XR CHEST 1V Location code:B2 [...] at 0851 Reported and signed by: Kathrin Guevara, [facility]: Poli Aaron; Jana Acosta NP Technologist: Octavio Lerner, RT(R) Transcrpt Date/Tm/Trnsp: 08/08/2019 (0851) BethanieR.KW9 Orig Print D/T: S: 08/08/2019 (0854) [facility] NAME: DEBI GARRETT [id number] PHYS: DUSTY.[place] [address] : 1935 AGE: 84 SEX: F LOC: Z.SI05 A PHONE #: [phone] EXAM DATE: 08/08/2019 STATUS:ADM IN FAX #: [phone] RADIOLOGY NO: PAGE 1 Signed Report ARTERY,[id number] 12:46:00 RUN DATE: 08/07/19 West - LAB PAGE 1 RUN TIME: 1246 Specimen Inquiry RUN USER: INTERFACE PATIENT: DEBI GARRETT LOC: MYLES U #: [id number] AGE/SX: 84/F [facility] DR: Robi Schroeder MD : [birth year] BED: A DIS: STATUS: ADM IN TLOC: SPEC #: [id number] RECD: 08/06/19 STATUS: DOV REQ #: [id number] KELLE: 08/06/[address]: Robi Schroeder MD ENTERED: 08/06/19 SPTYPE: ARTERY, PL OTHR DR: Self Referred Mirella Francis MD, Patricia Q MD Pepper, Gregory S MDORDERED: DECAL, SURG PATH LVL 3, SURG PATH LVL 4 CODES: [id number] - PLAQUE, NOS L46169 - ARTERY, NOS [id number] 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 ARTERY, NOS - RT CAROTID PLAQUE B. LYMPH NODE, NOS - RT CERVICAL LYMPH NODE CONTINUED ON NEXT PAGE --------- ---RUN DATE: 08/07/19 West - LAB PAGE 2 RUN TIME: 1246 Specimen Inquiry RUN USER: INTERFACE SPEC #: [id number] PATIENT: DEBI GARRETT #[id number] (Continued) CLINICAL HISTORY S/P RIGHT CEA CPT CODES CPT CODE(S): 96335 , 46056 ,41093 , , , , FINAL DIAGNOSIS A. [...] 1246 END OF REPORT - XR CHEST [id number] 10:56:00 Patient Name: DEBI GARRETT Unit No: [id number] EXAMS: CPT CODE: [id number] XR CHEST 1V 50022 EXAMINATION: - XR CHEST 1V. LOCATION: B2. [...] t.JWR.PR7 Orig Print D/T: S: 08/07/2019 (1100) [facility] NAME: DEBI GARRETT [address] PHYS: [place] [address] : 1935 AGE: 84 SEX: F LOC: Z.SI01 A PHONE #: [phone] EXAM DATE: 08/07/2019 STATUS: ADM INFAX #: [phone] RADIOLOGY NO: PAGE 1 Signed ReportBASIC METABOLIC [id number] 06:56:00 Test Item Value Reference Range Interpretation [...] CA) CBN DRAW LEFT TUBES FOR NURSE [id number] 06:56:00 Test Item Value Reference Range Interpretation Comments MAGNESIUM (test code = MAG) 1.8 MG/DL 1.6-2.3 N CBN DRAW LEFT TUBES FOR NURSE [facility] METABOLIC [id number] 06:55:00 Test Item Value Reference Range Interpretation [...] CA) CBN DRAW LEFT TUBES FOR NURSE [id number] 06:55:00 Test Item Value Reference Range Interpretation Comments MAGNESIUM (test code = MAG) MG/DL 1.6-2.3 CBN DRAW LEFT TUBES FOR NURSE [facility] METABOLIC [id number] 06:53:00 Test Item Value Reference Range Interpretation [...] 8.7-9.7 CBN DRAW LEFT TUBES FOR NURSE [id number] 06:53:00 Test Item Value Reference Range Interpretation Comments MAGNESIUM (test code = MAG) MG/DL 1.6-2.3 CBN DRAW LEFT TUBES FOR NURSE [facility] W/AUTO [id number] 06:42:00 Test Item Value Reference Range Interpretation [...] NRBC#) CBN DRAW LEFT TUBES FOR NURSE [facility] METABOLIC [id number] 13:33:00 Test Item Value Reference Range Interpretation [...] code = 10.0 MG/DL 8.4-10.2 N CA) [id number] 13:33:00 Test Item Value Reference Range Interpretation Comments MAGNESIUM (test code = MAG) 1.8 MG/DL 1.6-2.3 N BASIC METABOLIC [id number] 13:32:00 Test Item Value Reference Range Interpretation [...] CALCIUM (test code = MG/DL 8.7-9.7 CA) [id number] 13:32:00 Test Item Value Reference Range Interpretation Comments MAGNESIUM (test code = MAG) MG/DL 1.6-2.3 BASIC METABOLIC [id number] 13:30:00 Test Item Value Reference Range Interpretation [...] CALCIUM (test code = CA) MG/DL 8.7-9.7 [id number] 13:30:00 Test Item Value Reference Range Interpretation Comments MAGNESIUM (test code = MAG) MG/DL 1.6-2.3 BASIC METABOLIC [id number] 13:29:00 Test Item Value Reference Range Interpretation [...] CALCIUM (test code = CA) MG/DL 8.7-9.7 [id number] 13:29:00 Test Item Value Reference Range Interpretation Comments MAGNESIUM (test code = MAG) MG/DL 1.6-2.3 CBC W/AUTO [id number] 13:19:00 Test Item Value Reference Range Interpretation [...] K/mm3 0.0-0.1 N NRBC#) - XR CHEST [id number] 13:05:00 Patient Name: DEBI GARRETT Unit No: [id number] EXAMS: CPT CODE: [id number] XR CHEST 1V 01789 Site ID: [id number] HISTORY: Postoperative, right CEA [...] Technologist: Octavio Lerner, RT(R) Transcrpt Date/Tm/Trnsp: 08/06/2019 (1191) t.AJP6 Orig Print D/T: S: 08/06/2019 (3059) [facility] NAME: DEBI GARRETT [address] PHYS: [place] [address] : 1935 AGE: 84 SEX: F LOC: Z.SI01 A PHONE#: [phone] EXAM DATE: 08/06/2019 STATUS: ADM IN FAX #: [phone] RADIOLOGY NO: PAGE 1 SignedReportARTERIAL BLOOD GAS 2019-08-06 13:00:00 Test Item Value [...] = 50 % COHBGFFIO2) Novel Coronavirus 2018 [id number] 08:07:00 Test Item Value Reference Range Interpretation Comments Novel Coronavirus 2019 Inhouse (test Negative Negative code = COVNONPUI) Novel Coronavirus 2019 [id number] 08:06:00 Test Item Value Reference Range Interpretation Comments Novel Coronavirus 2019 Inhouse (test Negative Negative code = COVNONPUI) HIV 12 AB [id number] 14:28:00 Test Item Value Reference Range Interpretation Comments HIV 1 2 COMBO AG/AB SCREEN AB/AG NON REACTIVE NONREACTIVE (test code = [id number]) BASIC METABOLIC [id number] 13:39:00 Test Item Value Reference Range Interpretation [...] 10.3 MG/DL 8.4-10.2 H CA) BASIC METABOLIC [id number] 13:38:00 Test Item Value Reference Range Interpretation [...] code = MG/DL 8.7-9.7 CA) BASIC METABOLIC [id number] 13:36:00 Test Item Value Reference Range Interpretation [...] code = CA) MG/DL 8.7-9.7 BASIC METABOLIC [id number] 13:35:00 Test Item Value Reference Range Interpretation [...] (test code = CA) MG/DL 8.7-9.7 PROTHROMBIN [id number] 13:32:00 Test Item Value Reference Range Interpretation [...] dial infarction. 2. 0 - 3.0 3. [employer] Set Up Mechanic al prosthesis hear t valves, recurre nt systemic emboli sm. 3.0 - 4.5 PTT [id number] 13:32:00 Test Item Value Reference Range Interpretation Comments PTT ACTIVATED (test code = APTT) 35.5 SECONDS 25.1-36.5 N CBC W/AUTO [id number] 13:23:00 Test Item Value Reference Range Interpretation [...] 0.0-0.1 N NRBC#) - XR CHEST 2 [id number] 13:16:00 Patient Name: DEBI GARRETT Unit No: [id number] EXAMS: CPT CODE: [id number] XR CHEST 2 V 01299 Site ID: [id number] HISTORY: Preoperative, right carotid endarterectomy FINDINGS: The lungs are clear and normally expanded. The heart and pulmonary vasculature is normal. Previous coronary artery stenting noted. Osseous structures are unremarkable. IMPRESSION: No acute cardiopulmonary finding at 1316 Reported and signed by: Laith Salcido MD CC: Poli Aaron Technologist: RT Ludivina (R) Transcrpt Date/Tm/Trnsp: 07/29/2019 (1316) [id number] Orig Print D/T: S: 07/29/2019 (1319) [facility] NAME: DEBI GARRETT [address] PHYS:[place] [address] : 1935 AGE: 84 SEX: F LOC: UmaPAU PHONE #: [phone] EXAM DATE: 07/29/2019 STATUS: PRE IN FAX #: [phone] RADIOLOGY NO:PAGE 1 Signed ReportBASIC METABOLIC [id number] 06:23:00 Test Item Value Reference Range Interpretation [...] 0-189 mg/dL VERY HIGH.........>/ = 190 mg/dL [id number] 06:23:00 Test Item Value Reference Range Interpretation Comments MAGNESIUM (test code = MAG) 2.2 MG/DL 1.6-2.3 N PROTHROMBIN [id number] 06:16:00 Test Item Value Reference Range Interpretation [...] myocar dial infarction. 2.0 - 3.0 3. [employer] Set Up Mechanic al prosthesis hear t valves, recurre nt systemic emboli sm. 3.0 - 4.5 PTT [id number] 06:16:00 Test Item Value Reference Range Interpretation Comments PTT ACTIVATED (test code = APTT) 33.9 SECONDS 25.1-36.5 N BASIC METABOLIC [id number] 06:11:00 Test Item Value Reference Range Interpretation [...] LDL (test MG/DL 0-99 code = LDL) [id number] 06:11:00 Test Item Value Reference Range Interpretation Comments MAGNESIUM (test code = MAG) MG/DL 1.6-2.3 BASIC METABOLIC [id number] 06:11:00 Test Item Value Reference Range Interpretation [...] LDL (test MG/DL 0-99 code = LDL) [id number] 06:11:00 Test Item Value Reference Range Interpretation Comments MAGNESIUM (test code = MAG) 2.2 MG/DL 1.6-2.3 N BASIC METABOLIC [id number] 06:08:00 Test Item Value Reference Range Interpretation [...] LDL (test code = LDL) MG/DL 0-99 [id number] 06:08:00 Test Item Value Reference Range Interpretation Comments MAGNESIUM (test code = MAG) MG/DL 1.6-2.3 CBC W/AUTO [id number] 06:00:00 Test Item Value Reference Range Interpretation [...]
[2023-02-07 01:23] LABS: Protime INR 1.14
[2023-02-07 01:24] LABS: Absolute Lymphocytes (CBC) 2.2 K/uL (0.7-4.9); Hematocrit 39.5 % (36.0-45.0); Lymphocytes % 30.7 % (15.3-44.8); MPV 7.9 fL (7.6-11.3); Platelets 333 thou/uL (152-406); RBC Red Blood Cell Count 4.49 M/uL (3.86-4.86)
[2023-02-07 01:45] LABS: Albumin 3.6 g/dL (3.4-5.0); Bilirubin Direct 0.1 mg/dL (0-0.2); Bilirubin Indirect, Calculated 0.4 mg/dL (0.2-0.8); Bilirubin Total 0.5 mg/dL (0.2-1.0); Protein, Total 6.8 g/dL (6.4-8.2); Troponin High Sensitivity 8.7 pg/mL (<58.9)
[2023-02-07 01:48] LABS: Magnesium 2.5 mg/dL (1.6-2.4)
[2023-02-07 03:30] LABS: Renal Epithelial <5 /HPF (None Seen); Specific Gravity 1.016 (1.005-1.030); Urine Bacteria None Seen /HPF (<20); Urine Bilirubin NEGATIVE (Negative); Urine Blood Negative (Negative); Urine Clarity Turbid (Clear); Urine Color Yellow (Yellow); Urine Glucose NEGATIVE (Negative); Urine Mucus Slight /HPF (None Seen); Urine Protein NEGATIVE (Negative); Urine RBC None Seen /HPF (None Seen); Urine Urobilinogen Normal (Normal)
--- NOTE | 2023-02-07 05:23 | ER ---
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 she was seen here yesterday and was diagnose with a UTI. Antibiotic treatment was started yesterday as prescribed. on our arrival BP 110/78 Oxygen at 88 in room air. Oxygen at 98 on 2 Liter nasal canula. 00:49 Coronavirus screen: Vaccine status:. Ebola Screen: No symptoms or risks identified at [facility] this time. Initial Sepsis Screen: Does the patient meet any 2 criteria? No. Patient's initial sepsis screen is negative. Does the patient have a suspected source of infection? No. Patient's initial sepsis screen is negative. Risk Assessment: Do you want to hurt yourself or someone else? Patient reports no desire to harm self or others. Onset of symptoms was February 07, 2023. 00:49 Method Of Arrival: EMS: [place] [address] 00:49 Acuity: EVELIO 3 ha1 Triage Assessment: 00:49 General: Appears comfortable, Behavior is calm. Pain: Unable to use pain scale. FLACC ha1 scale score is 0 out of 10. Neuro: Level of Consciousness is awake, lethargic, Oriented to person. Cardiovascular: Capillary refill < 3 seconds Patient's skin is warm and dry. Respiratory: Airway is patent Respiratory effort is even, unlabored, Respiratory pattern is regular, symmetrical. GI: No signs and/or symptoms were reported involving the gastrointestinal system. Abdomen is flat, non-distended. : Parent/caregiver report the patient having UTI. Derm: Skin is pale. Musculoskeletal: Circulation, motion, and sensation intact. Range of motion: intact in all extremities. Historical: - Allergies: 01:07 Augmentin; ha1 01:07 Bactrim; ha1 01:07 Hydrocodone-Acetaminophen; ha1 01:07 PENICILLINS; ha1 - PMHx: 01:07 Alzheimer's disease; chronic kidney disease; Chronic pain; pelvic; depressive disorder; ha1 GALLSTONES; GERD; High Cholesterol; Hypercholesterolemia; Hypertension; Hypothyroidism; leaking heart valve; - Immunization history:: Adult Immunizations up to date. - Social history:: Smoking status: unknown. - Family history:: not pertinent. Screenin:49 [facility] ED Fall Risk Assessment (Adult) History of falling in the last 3 months, ha1 including since admission Yes- single mechanical fall (1 pt) Confusion or Disorientation Yes (5 pts) Intoxicated or Sedated No (0 pts) Impaired Gait Yes (1 pt) Mobility Assist Device Used Yes (1 pt) Altered Elimination Yes (1 pt) Score/Fall Risk Level 3 or more points = High Risk Oriented to surroundings, Maintained a safe environment, Educated pt \T\ family on fall prevention, incl call for assistance when getting out of bed, Used ambulatory aids as needed (educated on \T\ assisted with). Abuse screen: Denies threats or abuse. Denies injuries from another. Nutritional screening: No deficits noted. Tuberculosis screening: No symptoms or risk factors identified. Assessment: 00:49 Reassessment: see triage assessment. ha1 02:01 Reassessment: Patient and/or family updated on plan of care and expected duration. Pain ha1 level reassessed. Patient is alert, oriented x 3, equal unlabored respirations, skin warm/dry/pink. Patient states symptoms have improved. 02:05 Reassessment: going to CT. ha1 03:00 Reassessment: Patient appears in no apparent distress at this time. No changes from jw7 previously documented assessment. Patient and/or family updated on plan of care and expected duration. Pain level reassessed. Patient is alert, oriented x 3, equal unlabored respirations, skin warm/dry/pink. 04:00 Reassessment: eyes closed. Respiratory: Airway is patent Respiratory effort is even, ha1 unlabored, Respiratory pattern is regular, symmetrical. 05:00 Reassessment: eyes closed. Respiratory: Airway is patent Trachea midline Respiratory ha1 effort is even, unlabored, Respiratory pattern is regular, symmetrical. 05:14 Reassessment: Dr. Restrepo in the room. ha1 06:15 Reassessment: eyes closed. Respiratory: Airway is patent Respiratory effort is even, ha1 unlabored, Respiratory pattern is regular, symmetrical. 06:15 Reassessment: daughter at bedside. ha1 07:05 General: Appears in no apparent distress. uncomfortable, Behavior is calm, cooperative. rs5 Pain: Denies pain. Neuro: Level of Consciousness is awake, alert, obeys commands, Oriented to person, place, time, situation. 07:05 Cardiovascular: Heart tones S1 S2 present Rhythm is regular. Respiratory: Reports cough rs5 that is productive, Airway is patent Respiratory effort is even, unlabored, Respiratory pattern is regular, symmetrical, Breath sounds are clear bilaterally. GI: Abdomen is round non-distended, Bowel sounds present X 4 quads. Abd is soft and non tender X 4 quads. : No signs and/or symptoms were reported regarding the genitourinary system. EENT: No signs and/or symptoms were reported regarding the EENT system. Derm: Skin is intact, Skin is pink, warm \T\ dry. Musculoskeletal: Range of motion: intact in all extremities, Reports Pt reports generalized weakness and body aches started 3 days ago. 08:10 Reassessment: Patient and/or family updated on plan of care and expected duration. Pain rs5 level reassessed. Patient is alert, oriented x 3, equal unlabored respirations, skin warm/dry/pink. Vital Signs: 00:49 BP 144 / 66; Pulse 56; Resp 15 S; Temp 97.6; Pulse Ox 98% on 2 lpm NC; Weight 54 kg; ha1 01:50 BP 121 / 50; Pulse 54; Resp 15 S; Pulse Ox 99% on 2 lpm NC; ha1 02:45 BP 153 / 66; Pulse 62; Resp 17 S; Pulse Ox 98% on 2 lpm NC; ha1 03:20 BP 126 / 53; Pulse 53; Resp 18 S; Pulse Ox 100% on 2 lpm NC; ha1 04:00 BP 109 / 56; Pulse 50; Resp 18 S; Pulse Ox 99% on 2 lpm NC; ha1 04:30 BP 109 / 56; Pulse 53; Resp 17 S; Pulse Ox 99% on 2 lpm NC; ha1 04:45 BP 101 / 55; Pulse 51; Resp 14 S; Pulse Ox 98% on 2 lpm NC; ha1 05:15 BP 90 / 49; Pulse 51; Resp 18 S; Pulse Ox 98% on 2 lpm NC; ha1 06:15 BP 104 / 64; Pulse 54; Resp 14 S; Pulse Ox 98% on 2 lpm NC; ha1 07:30 BP 98 / 61; Pulse 52; Resp 16; Pulse Ox 99% on R/A; rs5 08:12 BP 100 / 63; Pulse 53; Resp 17; Pulse Ox 99% on R/A; rs5 Mando Coma Score: 02:13 Eye Response: spontaneous(4). Motor Response: obeys commands(6). Verbal Response: sp4 oriented(5). Total: 15. NIH Stroke Scale Scores: 02:13 NIHSS Score: 0 sp4 ED Course: 00:49 Patient arrived in ED. ha1 00:49 Patient has correct armband on for positive identification. Bed in low position. Call ha1 light in reach. Side rails up X2. 00:49 Arm band placed on left wrist. ha1 01:07 Triage completed. ha1 01:11 Maintain EMS IV. Dressing intact. Good blood return noted. Site clean \T\ dry. Gauge \T\ salomon 1 site: 20 maliha left forearm . 01:22 XRAY Chest (1 view) In Process Unspecified. EDMS 01:25 Jim Grnaado PA is PHCP. cp 01:25 Matthew Restrepo MD is Attending Physician. cp 01:37 Basic Metabolic Panel Sent. ha1 01:37 LFT's Sent. ha1 01:38 Magnesium Sent. ha1 01:38 NT PRO-BNP Sent. ha1 01:38 Troponin HS Sent. ha1 01:42 EKG done, by ED staff, reviewed by Matthew Restrepo MD. jw7 02:19 CT Head Brain wo Cont In Process Unspecified. EDMS 02:40 Straight cath inserted, using sterile technique, 16 Fr. Specimen obtained. Returned ha1 clear yellow urine. Patient tolerated well. 05:21 Lucretia Jacobs MD is Hospitalizing Provider. sp4 07:02 Andrea Lowry, JOSÉ is Primary Nurse. rs5 08:10 No provider procedures requiring assistance completed. IV discontinued, intact, rs5 bleeding controlled, No redness/swelling at site. Pressure dressing applied. Administered Medications: 05:15 Drug: NS 0.9% IV 500 ml IV at bolus once Route: IV; Rate: bolus; Site: left forearm; ha1 07:05 Follow up: Response: No adverse reaction rs5 05:44 Drug: Rocephin - Rocephin (cefTRIAXone) IVPB 1 grams IVPB once over 30 mins; (mix in 50 jw7 mL NS) Route: IVPB; Infused Over: 30 mins; Site: left forearm; 07:05 Follow up: Response: No adverse reaction rs5 05:44 Drug: NS 0.9% IV 1000 ml IV at 75 ml/hr continuous Route: IV; Rate: 75 ml/hr; Site: jw7 left forearm; 07:05 Follow up: Response: No adverse reaction rs5 06:20 Drug: Albumin IVPB 25 grams 100 ml IVPB once; (Note: Albumin 25% concentration) Volume: as6 100 ml; Route: IVPB; Site: left forearm; 07:05 Follow up: Response: No adverse reaction rs5 Medication: 01:10 VIS not applicable for this client. ha1 Outcome: 05:22 Decision to Hospitalize by Provider. sp4 08:10 Discharged to home ambulatory, rs5 08:10 Condition: stable 08:10 Discharge instructions given to patient, family, Instructed on discharge instructions, follow up and referral plans. Demonstrated understanding of instructions, follow-up care, 08:33 Patient left the ED. rs5 NIH Stroke Scale - NIH Stroke Score Date: 02/07/2023 Time: 02:13 Total Score = 0 10. Dysarthria (speech clarity - read or repeat words) - 0(Normal) 11. Extinction and Inattention (visual/tactile/auditory/spatial/personal) - 0(No abnormality) 1a. Level of Consciousness (LOC) - 0(Alert) 1b. Level of Consciousness (LOC) (Month \T\ Age) - 0(Both) 1c. LOC Commands (Open \T\ Closes Eyes/Equipment Installation Professional) - 0(Both) 2. Best Gaze (Lateral Gaze Paresis) - 0(Normal) 3. Visual Field Loss - 0(No visual loss) 4. Facial Palsy - 0(Normal) 5a. Left Arm: Motor (10-second hold) - 0(No drift) 5b. Right Arm: Motor (10-second hold) - 0(No drift) 6a. Left Leg: Motor (5-second hold - always test supine) - 0(No drift) 6b. Right Leg: Motor (5-second hold - always test supine) - 0(No drift) 7. Limb Ataxia (finger/nose \T\ heel/parkinson - test with eyes open) - 0(Absent) 8. Sensory Loss (pinprick arms/legs/face) - 0(Normal) 9. Best Language: Aphasia (description/naming/reading) - 0(No aphasia) Initials: sp4 Signatures: Dispatcher [employer] EDMS Jim Granado PA PA cp Slawson, Ashby, RN RN as6 Sandi Starr RN RN jw7 Brittney Ribeiro RN RN ha1 Andrea Lowry RN RN rs5 Matthew Restrepo MD MD sp4 Corrections: (The following items were deleted from the chart) 01:08 01:07 PMHx: chronic kidney disease; ha1 ha1 :08 01:07 PMHx: chronic kidney disease; ha1 ha1 :08 01:07 PMHx: chronic kidney disease; ha1 ha1 :08 01:07 PMHx: chronic kidney disease; ha1 ha1
--- NOTE | 2023-02-07 05:23 | EDPHYS ---
Physician Documentation [facility] Name: Leyda Ramos Age: 87 yrs Sex: Female : 1935 Arrival Date: 02/07/2023 Time: 00:47 Bed 2 Private MD: ED Physician Matthew Restrepo HPI: 02/07 01:30 This 87 yrs old Female presents to ER via EMS with complaints of AMS. sp4 02:13 Medication list -amlodipine 5 mg daily, atorvastatin 80 mg bedtime, carvedilol 3.125 mg sp4 twice daily, 17-year 300 mg twice a day, clopidogrel 75 mg daily, donepezil 10 mg daily, duloxetine 20 mg daily, hydrochlorothiazide 12.5 mg daily, isosorbide dinitrate 30 mg once a day, latanoprost 1 drop both eyes at bedtime, levothyroxine 50 mcg daily, losartan 100 mg daily, multivitamin daily, pregabalin 100 mg twice a day, valacyclovir 500 mg daily. . Patient's past medical history includes chronic kidney disease, depression, gallstones, Alzheimer's disease, and additional history of hypertension, hyperlipidemia, carotid arterial disease, atrial fibrillation on chronic anticoagulation, GERD, pudendal nerve ablation, surgical hypothyroidism, Parkinson's disease, hearing loss, carotid enterectomy, thyroidectomy. Patient was admitted here on 02/01/2023 for altered mental status with hypotension. She was discharged on 02/06/2023. During her hospital stay she was diagnosed with UTI, altered mental status was deemed to be for hypotension. Chronic kidney disease with creatinine 1.32. . Patient's status is full code. Patient is 87-year-old female who was found fpc by a relative on an unresponsive condition and when EMS called and discovered patient was hypoxemic in the 80s. Patient was brought here on arrival patient is alert and oriented x4 also she is not hypotensive and not hypoxemic.. Historical: - Allergies: 01:07 Augmentin; ha1 01:07 Bactrim; ha1 01:07 Hydrocodone-Acetaminophen; ha1 01:07 PENICILLINS; ha1 - PMHx: 01:07 Alzheimer's disease; chronic kidney disease; Chronic pain; pelvic; depressive disorder; ha1 GALLSTONES; GERD; High Cholesterol; Hypercholesterolemia; Hypertension; Hypothyroidism; leaking heart valve; - Immunization history:: Adult Immunizations up to date. - Social history:: Smoking status: unknown. - Family history:: not pertinent. ROS: 02:13 Constitutional: Negative for fever, chills, and weight loss, patient is a frail elderly sp4 female but is alert and oriented x4 and has no signs of delirium. She denied any complaints on arrival Eyes: Negative for injury, pain, redness, and discharge, ENT: Negative for injury, pain, and discharge, Neck: Negative for injury, pain, and swelling, Cardiovascular: Negative for chest pain, palpitations, and edema, Respiratory: Negative for shortness of breath, cough, wheezing, and pleuritic chest pain, Abdomen/GI: Negative for abdominal pain, nausea, vomiting, diarrhea, and constipation, Back: Negative for injury and pain, : Negative for injury, bleeding, discharge, and swelling, MS/Extremity: Negative for injury and deformity, Skin: Negative for injury, rash, and discoloration, Neuro: Negative for headache, weakness, numbness, tingling, and seizure, Psych: Negative for depression, anxiety, Allergy/Immunology: Negative for hives, rash, and allergies Endocrine: Negative for neck swelling, polydipsia, polyuria, polyphagia, and weight changes Hematologic/Lymphatic: Negative for swollen nodes, abnormal bleeding, and unusual bruising Exam: 02:05 ECG was reviewed by the Attending Physician. EKG time 0 139, there is sinus bradycardia sp4 at the rate of 56, otherwise normal EKG 02:13 Constitutional: This is a well developed, well nourished patient who is awake, alert, sp4 and in no acute distress. Patient is frail elderly female who is pale but nontoxic-appearing Head/Face: Normocephalic, atraumatic. Eyes: Pupils equal round and reactive to light, extra-ocular motions intact. Lids and lashes normal. Conjunctiva and sclera are not injected. Cornea within normal limits. Periorbital areas with no swelling, redness, or edema. ENT: Nares patent. No nasal discharge, no septal abnormalities noted. Tympanic membranes are normal and external auditory canals are clear. Oropharynx with no redness, swelling, or masses, exudates, or evidence of obstruction, uvula midline. Mucous membranes moist. Neck: Trachea midline, no thyromegaly or masses palpated, and no cervical lymphadenopathy. Supple, full range of motion without nuchal rigidity, or vertebral point tenderness. Chest/axilla: Normal chest wall appearance and motion. Nontender with no deformity. No lesions are appreciated. Cardiovascular: Regular rate and rhythm with a normal S1 and S2. No gallops, murmurs, or rubs. Normal PMI, no JVD. No pulse deficits. Respiratory: Lungs have equal breath sounds bilaterally, clear to auscultation and percussion. No rales, rhonchi or wheezes noted. No increased work of breathing, no retractions or nasal flaring. Abdomen/GI: Soft, non-tender, with normal bowel sounds. No distension or tympany. No guarding or rebound. No evidence of tenderness throughout. Back: No spinal tenderness. No costovertebral tenderness. Skin: Warm, dry with normal turgor. Normal color with no rashes, no lesions, and no evidence of cellulitis. MS/ Extremity: Pulses equal, no cyanosis. Neurovascular intact. Full, normal range of motion. Neuro: Awake and alert, GCS 15, oriented to person, place, time, and situation. Cranial nerves II-XII grossly intact. Motor strength 5/5 in all extremities. Sensory grossly intact. Psych: Awake, alert, with orientation to person, place and time. Behavior, mood, and affect are within normal limits Vital Signs: 00:49 BP 144 / 66; Pulse 56; Resp 15 S; Temp 97.6; Pulse Ox 98% on 2 lpm NC; Weight 54 kg; ha1 01:50 BP 121 / 50; Pulse 54; Resp 15 S; Pulse Ox 99% on 2 lpm NC; ha1 02:45 BP 153 / 66; Pulse 62; Resp 17 S; Pulse Ox 98% on 2 lpm NC; ha1 03:20 BP 126 / 53; Pulse 53; Resp 18 S; Pulse Ox 100% on 2 lpm NC; ha1 04:00 BP 109 / 56; Pulse 50; Resp 18 S; Pulse Ox 99% on 2 lpm NC; ha1 04:30 BP 109 / 56; Pulse 53; Resp 17 S; Pulse Ox 99% on 2 lpm NC; ha1 04:45 BP 101 / 55; Pulse 51; Resp 14 S; Pulse Ox 98% on 2 lpm NC; ha1 05:15 BP 90 / 49; Pulse 51; Resp 18 S; Pulse Ox 98% on 2 lpm NC; ha1 06:15 BP 104 / 64; Pulse 54; Resp 14 S; Pulse Ox 98% on 2 lpm NC; ha1 07:30 BP 98 / 61; Pulse 52; Resp 16; Pulse Ox 99% on R/A; rs5 08:12 BP 100 / 63; Pulse 53; Resp 17; Pulse Ox 99% on R/A; rs5 NIH Stroke Scale Scores: 02:13 NIHSS Score: 0 sp4 [place] Coma Score: 02:13 Eye Response: spontaneous(4). Motor Response: obeys commands(6). Verbal Response: sp4 oriented(5). Total: 15. MDM: 01:26 Patient medically screened. sp4 02:23 Differential Diagnosis altered mental status, sepsis, flu. Data reviewed: vital signs, sp4 nurses notes, EMS record, old medical records, lab test result(s), cardiac enzymes, CBC, electrolytes, Flu: hepatic panel, urinalysis, EKG, radiologic studies, CT scan, plain films. 03:04 ED course: CT - COMPARISON: No relevant prior studies available. FINDINGS: Brain: Mild sp4 nonspecific white matter changes likely related to chronic microvascular ischemic disease. Mild cerebral atrophy. No hemorrhage. Ventricles: Unremarkable. No ventriculomegaly. Bones/joints: Unremarkable. No acute fracture. Soft tissues: Unremarkable. Sinuses: Unremarkable as visualized. Mastoid air cells: Unremarkable as visualized. No mastoid effusion. IMPRESSION: No acute intracranial abnormality. . ED course: Chest X ray - CLINICAL HISTORY: The patient is 87 years old and is Female; CHEST PAIN TECHNIQUE: Frontal view of the chest. COMPARISON: No relevant prior studies available. FINDINGS: LUNGS: Unremarkable. No consolidation. PLEURAL SPACE: Unremarkable. No pneumothorax. HEART: Unremarkable. No cardiomegaly. MEDIASTINUM: Unremarkable. BONES/JOINTS: Unremarkable. VASCULATURE: Atherosclerosis of the aorta is present. UPPER ABDOMEN: Unremarkable as visualized. IMPRESSION: No acute cardiopulmonary process. . ED course: MRI brain from recent admit - CLINICAL HISTORY: Syncope Fall, trauma, head injury COMPARISON: Brain W/Wo Cont dated 09/30/2020 TECHNIQUE: Multi-sequence, multiplanar MR imaging of the brain was performed with contrast. FINDINGS: No intracranial hemorrhage, hydrocephalus, or extra-axial fluid collection.Mild confluent T2/FLAIR hyperintensity in the periventricular and deep white matter is present compatible with chronic microvascular ischemic changes. No edema or shift of midline structures. No intracranial mass. DWI is negative for acute CVA. The midline structures are normally formed. Mastoid air cells and paranasal sinuses are clear. Post-contrast images show no abnormal enhancement to suggest tumor or infection. IMPRESSION: Negative for acute CVA or other acute intracranial process. No pathologic post-contrast enhancement suspected. Signed AT: 01/29/23 1009 . 02/07 01:02 Order name: Basic Metabolic Panel; Complete Time: 03:04 02/07 01:02 Order name: CBC with Diff; Complete Time: 03:04 02/07 01:02 Order name: LFT's; Complete Time: 03:04 02/07 01:02 Order name: Magnesium; Complete Time: 03:04 02/07 01:02 Order name: NT PRO-BNP; Complete Time: 03:04 02/07 01:02 Order name: PT-INR; Complete Time: 03:04 02/07 01:02 Order name: Troponin HS; Complete Time: 03:04 02/07 01:41 Order name: Urinalysis W/Microscopic; Complete Time: 03:36 02/07 01:41 Order name: COVID-19 SARS RT PCR; Complete Time: 05:08 02/07 01:41 Order name: Influenza Screen (a \T\ B); Complete Time: 05:08 02/07 03:33 Order name: Urine Culture [facility] 02/07 01:02 Order name: XRAY Chest (1 view) 02/07 01:41 Order name: CT Head Brain wo Cont 02/07 01:02 Order name: EKG; Complete Time: 01:02 02/07 01:02 Order name: Cardiac monitoring; Complete Time: 01:02 02/07 01:02 Order name: EKG - Nurse/Tech; Complete Time: 01:42 02/07 01:02 Order name: IV Saline Lock; Complete Time: 01:02 02/07 01:02 Order name: Labs collected and sent; Complete Time: 01:06 02/07 01:02 Order name: O2 Per Protocol; Complete Time: 01:02 02/07 01:02 Order name: O2 Sat Monitoring; Complete Time: : EC:05 Rate is 56 beats/min. Rhythm is regular, Sinus bradycardia. QRS [place] is Normal. [place] sp4 interval is normal. QRS interval is normal. QT interval is normal. No Q waves. T waves are Normal. No ST changes noted. Clinical impression: No evidence of ischemia. Interpreted by me. Reviewed by me. Administered Medications: 05:15 Drug: NS 0.9% IV 500 ml IV at bolus once Route: IV; Rate: bolus; Site: left forearm; ha1 07:05 Follow up: Response: No adverse reaction rs5 05:44 Drug: Rocephin - Rocephin (cefTRIAXone) IVPB 1 grams IVPB once over 30 mins; (mix in 50 jw7 mL NS) Route: IVPB; Infused Over: 30 mins; Site: left forearm; 07:05 Follow up: Response: No adverse reaction rs5 05:44 Drug: NS 0.9% IV 1000 ml IV at 75 ml/hr continuous Route: IV; Rate: 75 ml/hr; Site: jw7 left forearm; 07:05 Follow up: Response: No adverse reaction rs5 06:20 Drug: Albumin IVPB 25 grams 100 ml IVPB once; (Note: Albumin 25% concentration) Volume: as6 100 ml; Route: IVPB; Site: left forearm; 07:05 Follow up: Response: No adverse reaction rs5 Disposition Summary: 02/07/23 05:22 Hospitalization Ordered Notes: Hospitalization Status: Observation sp4 Provider: Lucretia Jacobs spMarii Condition: Stable sp4 Problem: new sp4 Symptoms: have improved sp4 Bed/Room Type: Standard sp4 Location: Telemetry/MedSurg (observation)(02/07/23 08:05) bd Room Assignment: 428(02/07/23 08:05) bd Diagnosis - Metabolic encephalopathy sp4 - acute on chronic renal insufficiency sp4 Forms: - Medication Reconciliation Form sp4 - SBAR form sp4 - Leadership Thank You Letter sp4 NIH Stroke Scale - NIH Stroke Score Date: 02/07/2023 Time: 02:13 Total Score = 0 10. Dysarthria (speech clarity - read or repeat words) - 0(Normal) 11. Extinction and Inattention (visual/tactile/auditory/spatial/personal) - 0(No abnormality) 1a. Level of Consciousness (LOC) - 0(Alert) 1b. Level of Consciousness (LOC) (Month \T\ Age) - 0(Both) 1c. LOC Commands (Open \T\ Closes Eyes/Etcher Machine) - 0(Both) 2. Best Gaze (Lateral Gaze Paresis) - 0(Normal) 3. Visual Field Loss - 0(No visual loss) 4. Facial Palsy - 0(Normal) 5a. Left Arm: Motor (10-second hold) - 0(No drift) 5b. Right Arm: Motor (10-second hold) - 0(No drift) 6a. Left Leg: Motor (5-second hold - always test supine) - 0(No drift) 6b. Right Leg: Motor (5-second hold - always test supine) - 0(No drift) 7. Limb Ataxia (finger/nose \T\ heel/parkinson - test with eyes open) - 0(Absent) 8. Sensory Loss (pinprick arms/legs/face) - 0(Normal) 9. Best Language: Aphasia (description/naming/reading) - 0(No aphasia) Initials: sp4 Signatures: Dispatcher [employer] EDMS Meron Rosales Cindy, RN RN cg Dimitri Crystal RN RN as6 Sandi Starr RN RN jw7 Brittney Ribeiro RN RN ha1 Matthew Restrepo MD MD sp4 Andrea Lowry RN rs5 Corrections: (The following items were deleted from the chart) 01:08 01:07 PMHx: chronic kidney disease; ha1 ha1 01:08 01:07 PMHx: chronic kidney disease; ha1 ha1 01:08 01:07 PMHx: chronic kidney disease; ha1 ha1 01:08 01:07 PMHx: chronic kidney disease; ha1 ha1 05:55 05:22 Telemetry/MedSurg (observation) sp4 cg 05:55 05:22 sp4 cg 06:02 05:55 ERHOLD- cg cg 06:02 06:02 HLD1 cg cg 08:05 05:55 [facility] ER HOLD cg bd 08:05 06:02 ERHOLD- cg bd
--- NOTE | 2023-02-07 05:27 | P.HP ---
Certification for Inpatient Patient admitted to: Observation With expected LOS: <2 Midnights Patient will require the following post-hospital care: None Practitioner: I am a practitioner with admitting privileges, knowledge of patient current condition, hospital course, and medical plan of care. Services: Services provided to patient in accordance with Admission requirements found in Title 42 Section 412.3 of the Code of Federal Regulations Patient History Date of Service: 02/07/23 Reason for admission: STERLING, AMS History of Present Illness: is an 87-year-old female with past medical history of history of CKD, Alzheimer's disease, hypertension, hypothyroidism, and hyperlipidemia who presented to the emergency room from fdc to be evaluated because fdc reported that she was hypotensive, unresponsive, and hypoxic. Upon arrival, she was normotensive, responsive, and saturating appropriately. Only lab abnormality is an elevated serum creatinine of 1.8. She had an otherwise negative workup, however her blood pressure did downtrend to the 80s/50s. Family is concerned that she is not mentating appropriately. ED provider wishes to admit patient for further management of hypotension, STERLING, and altered mental status. Allergies amoxicillin [From Augmentin] Allergy (Verified 02/01/23 22:21) Rash clavulanic acid [From Augmentin] Allergy (Verified 02/01/23 22:21) Rash Penicillins Allergy (Verified 02/01/23 22:20) Rash sulfamethoxazole [From Bactrim] Allergy (Verified 02/01/23 22:20) Itching trimethoprim [From Bactrim] Allergy (Verified 02/01/23 22:20) Itching hydrocodone Adverse Reaction (Verified 09/28/20 21:39) Insomnia Home medications list reviewed: Yes Home Medications: Clopidogrel Bisulfate [Plavix*] 75 mg PO DAILY 09/28/20 Duloxetine HCl [Cymbalta] 20 mg PO DAILY 09/28/20 Pregabalin [Lyrica*] 100 mg PO BID 09/28/20 Amlodipine [Norvasc*] 5 mg PO DAILY 30 Days #30 tab 10/01/20 Atorvastatin Calcium [Lipitor] 80 mg PO BEDTIME 01/28/23 Carvedilol [Coreg] 3.125 mg PO DAILY 01/28/23 Docusate [Colace Cap*] 100 mg PO DAILY PRN 01/28/23 Levothyroxine Sodium 50 mcg PO DAILY 01/28/23 Donepezil HCl 10 mg PO BEDTIME 02/01/23 Valacyclovir [Valtrex*] 500 mg PO DAILY 02/01/23 Cefdinir [Cefdinir*] 300 mg PO BID #14 cap 02/05/23 Isosorbide Dinit [Isordil] 5 mg PO BID #60 tab 02/05/23 - Past Medical/Surgical History Diabetic: No -: Hypertension -: Hyperlipidemia -: Carotid arterial disease -: Atrial fibrillation on chronic anticoagulation therapy -: GERD -: Pudental nerve ablation -: Surgical hypothyroidism -: 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 -: Hearing loss -: Carotid enterectomy -: Thyroidectomy Psychosocial/ Personal History: Patient lives at [facility] - Family History Family History: Reviewed- Non-Contributory - Social History Smoking Status: Never smoker Alcohol use: No CD- Drugs: No Caffeine use: Yes Place of Residence: Home Review of Systems Unremarkable Physical Examination - Vital Signs Temperature: 97.6 F Blood Pressure: 109/56 Pulse: 50 Respirations: 18 Pulse Ox (%): 99 (2L NC) - Physical Exam General: Alert, In no apparent distress HEENT: Atraumatic, EOMI, Sclerae nonicteric Neck: Supple, 2+ carotid pulse no bruit Respiratory: Clear to auscultation bilaterally, Normal air movement Cardiovascular: Regular rate/rhythm, Normal S1 S2 Gastrointestinal: Normal bowel sounds, No tenderness Musculoskeletal: No tenderness Integumentary: No rashes Neurological: Normal speech, Normal affect, Dementia - Studies Laboratory Data (last 24 hrs) 02/07/23 02/07/23 02/07/23 01:04 01:04 01:04 WBC 7.20 Hgb 13.2 Hct 39.5 Plt Count 333 PT 12.5 INR 1.14 Sodium 138 Potassium 4.0 BUN 36 H Creatinine 1.84 H Glucose 87 Magnesium 2.5 H Total Bilirubin 0.5 AST 28 ALT 41 Alkaline Phosphatase 73 Microbiology Data (last 24 hrs): 02/07/23 02:27 Nasopharnyx Influenza Type A Antigen Screen - Final 02/07/23 02:27 Nasopharnyx Influenza Type B Antigen Screen - Final Assessment and Plan - Problems (Diagnosis) (1) STERLING (acute kidney injury) Current Visit: Yes Status: Acute (2) Altered mental status, unspecified Current Visit: Yes Status: Acute Qualifiers: Altered mental status type: unspecified Qualified Code(s): R41.82 - Altered mental status, unspecified (3) Hypotension Current Visit: Yes Status: Acute Qualifiers: Hypotension type: unspecified hypotension type Qualified Code(s): I95.9 - Hypotension, unspecified (4) CAD (coronary artery disease) Current Visit: Yes Status: Chronic Qualifiers: Coronary Disease-Associated Artery/Lesion type: [place] artery [place] vs. transplanted heart: [place] heart Associated angina: without angina Qualified Code(s): I25.10 - Atherosclerotic heart disease of [place] coronary artery without angina pectoris - Plan Patient is admitted for observation for STERLING, AMS, hypotension. Continue IVF for STERLING and hypotension. Trend BUN/creatinine. Received albumin in ED. Anticipate improvement in mentation with normotensive blood pressure. Patient was admitted for very similar complaints 6 days ago. BP meds likely need adjusting. I suspect advancing alzheimers is a component of the alteration in mental status. Monitor and replete electrolyte per protocol. Reconcile and continue home medications as appropriate. SCDs for VTE prophylaxis. Full code. Discharge Plan: Long Term Plan to discharge in: 24 Hours - Advance Directives Does patient have a Living Will: No Does patient have a Durable POA for Healthcare: No - Code Status/Comfort Care Code Status Assessed: Yes Code Status: Full Code Physician Review: Patient Assessed, Agree with Above Assessment and Plan Critical Care: No Time Spent Managing Pts Care (In Minutes): 50
[2023-02-07] MEDS ORDERED: NA CHLORIDE 0.9% 500 ML ONE (05:33)
[2023-02-07] MEDS ORDERED: NA CHLORIDE 0.9% 1,000 ML ONE (05:40)
[2023-02-07] MEDS ORDERED: CEFTRIAXONE 1000 MG/VIAL ONE (05:40)
[2023-02-07] MEDS: NA CHLORIDE 0.9% 1,000 ML IV SCH ×2 (06:09→21:01)
[2023-02-07] MEDS ORDERED: ONDANSETRON 4 MG/2 ML VIAL IV PRN (06:09)
[2023-02-07] MEDS ORDERED: ACETAMINOPHEN 500 MG TAB PO PRN (06:09)
--- NOTE | 2023-02-07 13:08 | RAD REPORT ---
EXAM DESCRIPTION: CT - Head Brain Wo Cont - 02/07/2023 5:02 am CLINICAL HISTORY: The patient is 87 years old and is Female; Altered mental status TECHNIQUE: Axial computed tomography images of the head/brain without intravenous contrast. Sagitt al and coronal reformatted images were created and reviewed. This CT exam was performed using one o r more of the following dose reduction techniques: automated exposure control, adjustment of the mA and/or kV according to patient size, and/or use of iterative reconstruction technique. COMPARISON: No relevant prior studies available. FINDINGS: Brain: Mild nonspecific white matter changes likely related to chronic microvascular isc hemic disease. Mild cerebral atrophy. No hemorrhage. Ventricles: Unremarkable. No ventriculomegaly. Bones/joints: Unremarkable. No acute fracture. Soft tissues: Unremarkable. Sinuses: Unremarkable as visualized. Mastoid air cells: Unremarkable as visualized. No mastoid effusion. IMPRESSION: No acute intracranial abnormality. Electronically signed by: Octavio Llanes MD 02/07/2023 02:41 AM PALLET STONE INSERTER Due to temporary technical issues with the PACS/Fluency reporting system, reports are being signed by the in house radiologist without review as a courtesy to ensure prompt reporting. The interpreting r adiologist is fully responsible for the content of the report.
--- NOTE | 2023-02-07 13:09 | RAD REPORT ---
EXAM DESCRIPTION: RAD - Chest Single View - 02/07/2023 1:20 am CLINICAL HISTORY: The patient is 87 years old and is Female; CHEST PAIN TECHNIQUE: Frontal view of the chest. COMPARISON: No relevant prior studies available. FINDINGS: LUNGS: Unremarkable. No consolidation. PLEURAL SPACE: Unremarkable. No pneumothorax. HEART: Unremarkable. No cardiomegaly. MEDIASTINUM: Unremarkable. BONES/JOINTS: Unremarkable. VASCULATURE: Atherosclerosis of the aorta is present. UPPER ABDOMEN: Unremarkable as visualized. IMPRESSION: No acute cardiopulmonary process. Electronically signed by: Beatrice Bai MD 02/07/2023 01:33 AM CLEARING TUB WORKER Due to temporary technical issues with the PACS/Fluency reporting system, reports are being signed by the in house radiologist without review as a courtesy to ensure prompt reporting. The interpreting r adiologist is fully responsible for the content of the report.
[2023-02-07 14:15] LABS: Barbiturates NEGATIVE (NEGATIVE); Benzodiazepines NEGATIVE (NEGATIVE); Cocaine NEGATIVE (NEGATIVE); METHAMPHETAM NEGATIVE (NEGATIVE); Methadone NEGATIVE (NEGATIVE); Opiates NEGATIVE (NEGATIVE); Phencyclidine NEGATIVE (NEGATIVE); THC Cannibis NEGATIVE (NEGATIVE)
[2023-02-07 17:19] VITALS: BMI 24.8
--- NOTE | 2023-02-07 17:21 | EKG ---
Test Date: 2023-02-07 Test Time: 01:39:33 Rigging Engineer: ANDIE MEASUREMENT RESULTS: Intervals: Rate: 56 MA: 160 QRSD: 102 QT: 444 QTc: 428 [place]: P: 11 MA: 160 QRS: -15 T: 32 INTERPRETIVE STATEMENTS: Sinus bradycardia Otherwise normal ECG Compared to ECG 02/01/2023 13:35:52 Sinus rhythm no longer present Left-axis deviation no longer present Electronically Signed On 02-07-23 17:19:48 ECONOMICS TEACHER by Vinod Barron
[2023-02-07] MEDS ORDERED: DOCUSATE NA 100 MG CAP PO PRN (20:02)
[2023-02-07] MEDS: ISOSORBIDE DINIT 5 MG TAB PO SCH (21:00)
[2023-02-07] MEDS: ATORVASTATIN 80 MG TAB PO SCH (21:00)
[2023-02-07] MEDS: PREGABALIN 50 MG CAP PO SCH (21:00)
[2023-02-07] MEDS: DONEPEZIL HCL 5 MG TAB PO SCH (21:00)
[2023-02-08 04:16] LABS: Absolute Lymphocytes (CBC) 2.1 K/uL (0.7-4.9); Hematocrit 34.8 % (36.0-45.0); Lymphocytes % 27.7 % (15.3-44.8); MCV 88.2 fL (80-100); MPV 8.1 fL (7.6-11.3); Platelets 276 thou/uL (152-406); RBC Red Blood Cell Count 3.95 M/uL (3.86-4.86)
[2023-02-08 04:24] LABS: Potassium 3.8 mEq/L (3.5-5.1)
[2023-02-08 04:25] LABS: Phosphorus 2.4 mg/dL (2.5-4.9)
[2023-02-08] MEDS ORDERED: POTASSIUM CL SA 10 MEQ TAB PO ONE (06:00)
[2023-02-08] MEDS: POTASS/SODIUM PHOSPHATE 1 PKT POWD.PACK PO SCH ×3 (06:25→09:56)
[2023-02-08] MEDS: LEVOTHYROXINE SOD 0.05 MG TABLET PO SCH (06:25)
[2023-02-08] MEDS: NA CHLORIDE 0.9% 1,000 ML IV SCH ×3 (08:49→22:09)
[2023-02-08] MEDS: PREGABALIN 50 MG CAP PO SCH ×2 (08:58→21:01)
[2023-02-08] MEDS: CLOPIDOGREL 75 MG TABLET PO SCH (08:58)
[2023-02-08] MEDS: DULOXETINE 20 MG CAP PO SCH (08:58)
[2023-02-08] MEDS: carvediloL 3.125 MG TAB PO SCH (09:00)
[2023-02-08] MEDS: ISOSORBIDE DINIT 5 MG TAB PO SCH ×3 (09:00→21:02)
[2023-02-08] MEDS: AMLODIPINE 5 MG TAB PO SCH (09:04)
[2023-02-08 20:47] VITALS: O2SAT 94
[2023-02-08] MEDS: DONEPEZIL HCL 5 MG TAB PO SCH (21:01)
[2023-02-08] MEDS: ATORVASTATIN 80 MG TAB PO SCH (21:01)
[2023-02-09] MEDS: NA CHLORIDE 0.9% 1,000 ML IV SCH (03:13)
[2023-02-09 05:14] VITALS: TEMP 98.1
[2023-02-09 07:42] LABS: Phosphorus 2.7 mg/dL (2.5-4.9); Potassium 3.6 mEq/L (3.5-5.1)
[2023-02-09] MEDS: CLOPIDOGREL 75 MG TABLET PO SCH (09:38)
[2023-02-09] MEDS: ISOSORBIDE DINIT 5 MG TAB PO SCH (09:38)
[2023-02-09] MEDS: PREGABALIN 50 MG CAP PO SCH (09:38)
[2023-02-09] MEDS: AMLODIPINE 5 MG TAB PO SCH (09:39)
[2023-02-09] MEDS: carvediloL 3.125 MG TAB PO SCH (09:39)
[2023-02-09] MEDS: LEVOTHYROXINE SOD 0.05 MG TABLET PO SCH (09:39)
[2023-02-09] MEDS: DULOXETINE 20 MG CAP PO SCH (09:39)
[2023-02-09 10:55] VITALS: BP 189/75
== END 2023-02-09 12:46 ==
LOC: ER 00:47 → ERHOLD 05:23 → 4TH 08:14
PROVIDERS: ADMIT Hospitalist; ATTEND Hospitalist
DX: N17.9 Acute kidney failure, unspecified (principal); R41.82 Altered mental status, unspecified; G93.41 Metabolic encephalopathy; G30.9 Alzheimer's disease, unspecified; F02.80 Dementia in other diseases classified elsewhere, unspecified severity, without behavioral disturbance, psychotic disturbance, mood disturbance, and anxiety; I10 Essential (primary) hypertension; E03.9 Hypothyroidism, unspecified; E78.5 Hyperlipidemia, unspecified; I95.9 Hypotension, unspecified; I25.10 Atherosclerotic heart disease of native coronary artery without angina pectoris; Z11.52 Encounter for screening for COVID-19
CPT/HCPCS: 36415; 51702; 70450; 71045; 80048; 80076; 80307; 81001; 83735; 83880; 84100; 84484; 85025; 85610; 87086; 87088; 87635; 87804; 93005; 96374; 96375; 97112; 97116; 97161; 99285; G0378; J0696; J7030; J7040

== ENCOUNTER 2023-02-09 10:34 | Inpatient (IN) | payer OTHER ==
--- OUTSIDE RECORDS SUMMARY | 2023-02-09 11:20 | XMS REPORT | Continuity of Care Document ---
:1935 Author Organization [facility] t Address [address] [place] [address] Care Team Providers Name Role Phone FOUND, [...] 00:00[place] 00 [place] Primary Primary Disease Active Methodi localized localized [...] wellness wellness 00:00: g of this Hos oyan visit, visit, 00 note l subsequent subsequent [...] -2.0. 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 Chronic Chronic Disease Active Methodi constipati constipati [...] Active SV 2020-0 [facility] one -14 00:00: [address] sulfamet DA Active SV 2020-0 [facility] hoxazole -14 00:00: [address] trimetho DA Active SV 2020-0 [facility] prim -14 00:00: [address] hydrocod DA Active SV allergy 2020-0 [facility] one -14 00:00: [address] sulfamet DA Active SV allergy 2020-0 [facility] hoxazole 5-14 00:00: [address] trimetho DA Active SV allergy 2020-0 [facility] prim -14 00:00: [address] Penicill DA Active U RASH [facility] ins 07-28 Clear 00:00: [facility] Penicill DA Active U [facility] ins 07-28 West 00:00: [address] Sulfamet Propensi Active Rash 2017-03 Method i hoxazole ty to 0 st -Trimeth adverse 00:00: Hospita oprim reaction 00 l s to drug Penicill Propensi Active Rash 2017-03 Method i ins ty to adverse 00:00: Hospita reaction 00 l s to drug hydrocod DA Active SV [facility] one 10-21 Clear 00:00: [facility] sulfamet DA Active SV [facility] hoxazole 10-21 Clear 00:00: [facility] trimetho DA Active SV [facility] prim 10-21 Clear 00:00: [facility] hydrocod DA Active SV allergy [facility] one 10-21 Clear 00:00: [facility] sulfamet DA Active SV allergy [facility] hoxazole 10-21 Clear 00:00: [facility] trimetho DA Active SV allergy [facility] prim 10-21 Clear 00:00: [facility] Sulfamet Propensi Active Other (See [...] Univers BRANDI-POT 0-19 ity of CLAVULAN 00:00: [address] HYDROCOD DRUG Active Med Other-Cmnt 2014-03 [...] Date Stop Date Source Natural brother [facility] Natural brother Prostate cancer Meth [facility] father Lung [facility] Natural mother [facility] Natural sister Heart disease [facility] Natural son Diabetes [facility] Hos pital Social History Social Habit Start Date Stop Date Quantity Comments Source Gender identity 2020-10-20 Identifies as Method ist 18:21:27 female gender Hospital (finding) Sexual orientation Method ist Hospital History SDOH University o f Alcohol Std Drinks [place] [facility] History SDOH University o f Alcohol Binge [place] [facility] al [facility] History SDOH Social Unive rsity of Connections Get [place] Med ical Together Branch History SDOH Social Unive rsity of Connections [facility] Medical Branch History SDOH Social Unive rsity of Connections [place] [facility] Membership Branch History SDOH Social Unive rsity of Connections [place] Medical Meetings Branch History SDOH 2022-08-14 2022-08-14 [...] University o f Physical Activity 00:00:00 00:00:00 [place] M edical DPW Branch History SDOH 2022-08-14 2022-08-14 0 University o f Physical Activity 00:00:00 00:00:00 [facility] edical MPS Branch History SDOH 2022-08-14 2022-08-14 5 University o f Financial 00:00:00 00:00:00 [place] [facility] History SDOH Food 2022-08-14 2022-08-14 1 Univers ity of Worry 00:00:00 00:00:00 [place] [facility] History SDOH Food 2022-08-14 2022-08-14 1 Univers ity of Scarcity 00:00:00 00:00:00 [place] [facility] History SDOH 2022-08-14 2022-08-14 2 University o f Transport Med 00:00:00 00:00:00 [place] Medic al Branch History SDOH 2022-08-14 2022-08-14 2 University o f Transport Non-Med 00:00:00 00:00:00 [place] M edical Branch History SDOH 2022-08-14 2022-08-14 2 University o f Housing Unable to 00:00:00 00:00:00 [place] M edical Pay Branch History SDOH 2022-08-14 2022-08-14 1 [place] o f Housing Places 00:00:00 00:00:00 [place] Medi merissa Lived Branch History SDOH 2022-08-14 2022-08-14 2 University o f Housing Homeless 00:00:00 00:00:00 [place] Me dical Last Year Branch Exposure to 2022-08-03 2022-08-13 Not sure University of SARS-CoV-2 (event) 00:00:00 17:27:00 [facility] Alcohol intake 2022-07-06 2022-07-06 Current Jainism 00:00:00 00:00:00 non-drinker of Hospital alcohol (finding) [...] l day) - Reported Cigarette 2021-12-21 2021-12-21 [facility]ainism pack-years 00:00:00 00:00:00 Hospital Tobacco use and 2015-01-13 2015-01-13 Smokeless tobacco Un iversity of exposure 00:00:00 00:00:00 non-user [facility] History of tobacco 1955-06-13 1965-03-10 Cigarette Smoker Jainism use 00:00:00 00:00:00 Hospital Sex Assigned At [birth year] [facility] y of 00:00:00 00:00:00 [facility] Smoking Status Start Date Stop Date Source Never smoked tobacco BILL rene (finding) Ex-smoker 2015-01-13 00:00:00 2015-01-13 00:00:00 [facility] Medications Ordered Filled Start Stop Current Ordering Indication Dosage Frequency Signature Comments Components Source Medication Medication Date Date Medication? Clinician (SIG) Name Name pantoprazol 2022- No [id number] 40mg Take 1 Univers e 40 mg EC 5-25 06-25 tablet by ity of tablet 00:00: 04:59 mouth in [place] 00 :00 the Medical morning Branch for 30 days. pantoprazol 2022- No [id number] 40mg Take 1 Univers e 40 mg EC 5-25 06-25 tablet by ity of tablet 00:00: 04:59 mouth in [place] 00 :00 the Medical morning Branch for [...] by ity of tablet 16:30: mouth in [place] [address] the Medical morning. Branch vitamin 2023-0 Yes 1000ug Take 1,000 Un amber B-12 5-24 mcg by ity of (VITAMIN 16:30: mouth [place] B-12) 1,000 45 daily. Medica l mcg tablet Branch DULoxetine 2023-0 Yes 20mg Take 1 Unive rs 20 mg 5-24 capsule by ity of capsule 16:30: mouth in [place] [address] the Medical morning. 2 Branch cap daily carvediloL 2023-0 Yes 3.125mg Take 1 Un amber 3.125 mg 5-24 tablet by ity of tablet 16:30: mouth in [place] [address] the Medical morning Branch and 1 tablet in the evening. Take with meals. pregabalin 2023-0 Yes 100mg Take 1 Univ ers 100 mg 5-24 capsule by ity of capsule 16:30: mouth in [place] [address] the Medical morning Branch and 1 capsule in the evening. clopidogreL 2023-0 Yes 75mg Take 1 Univ ers 75 mg 5-24 tablet by ity of tablet 16:30: mouth in [place] [address] the Medical morning. Branch donepeziL 3-0 Yes 10mg Take 1 Univer s 10 mg 5-24 tablet by ity of tablet 16:30: mouth at [place] [address] bedtime. Medical Branch amLODIPine 3-0 Yes 5mg Take 1 Unive rs 5 mg tablet 5-24 tablet by ity of 16:30: mouth in [place] [address] the Medical morning. Branch isosorbide 2023-0 Yes [...] ity of 100 mg 16:30: mouth in [place] tablet 45 the Medical morning. Branch atorvastati 2023-0 Yes 80mg Take 1 Univ ers n 80 mg 5-24 tablet by ity of tablet 16:30: mouth in [place] [address] the Medical morning. Branch vitamin 2023-0 Yes 1000ug Take 1,000 Un amber B-12 5-24 mcg by ity of (VITAMIN 16:30: mouth [place] B-12) 1,000 45 daily. Medica l mcg tablet Branch DULoxetine 3-0 Yes 20mg Take 1 Unive rs 20 mg 5-24 capsule by ity of capsule 16:30: mouth in [place] [address] the Medical morning. 2 Branch cap daily carvediloL 3-0 Yes 3.125mg Take 1 Un amber 3.125 mg 5-24 tablet by ity of tablet 16:30: mouth in [place] [address] the Medical morning Branch and 1 tablet in the evening. Take with meals. pregabalin 2023-0 Yes 100mg Take 1 Univ ers 100 mg 5-24 capsule by ity of capsule 16:30: mouth in [place] [address] the Medical morning Branch and 1 capsule in the evening. clopidogreL 3-0 Yes 75mg Take 1 Univ ers 75 mg 5-24 tablet by ity of tablet 16:30: mouth in [place] [address] the Medical morning. Branch donepeziL 2022-0 Yes 10mg Take 1 Univer s 10 mg 5-24 tablet by ity of tablet 16:30: mouth at [place] [address] bedtime. Medical Branch amLODIPine 3-0 Yes 5mg Take 1 Unive rs 5 mg tablet 5-24 tablet by ity of 16:30: mouth in [place] [address] the Medical morning. Branch isosorbide 2022-0 Yes 30mg Take 1 Unive rs dinitrate 5-24 tablet by ity o f 30 mg 16:30: mouth in [facility] 45 the Medical morning. Branch thyroid 15 3-0 2022- No 15mg Take 1 Univ ers mg tablet 5-24 05-24 tablet by ity of 12:48: 00:00 mouth in [place] 57 :00 the Medical morning. Branch fenofibrate 2023-0 2023- No 54mg Take 1 Uni vers (TRICOR) 54 5-24 05-24 tablet by it y of mg tablet 12:48: 00:00 mouth in [facility] as 57 :00 the Medical morning. Branch hydroCHLORO 2023-0 3- No 12.5mg Take 1 U nivers thiazide 5-24 05-24 capsule by ity of 12.5 mg 12:48: 00:00 mouth in [place] capsule 57 :00 the Medical morning. Branch hydralAZINE Yes 10mg 10 mg, Univ ers (APRESOLINE - Slow IV ity o f ) injection 02:08: Push, [place] 10 mg 51 Q4HPRN, Medical Starting Branch on Sun08/15/22 at 2108, Until Discontinu ed, Routine, DBP=>10 0; SBP=>160 ampicillin 2022-0 2022- No [id number] 500mg Take 1 Univers 500 mg 08-16 capsule by ity of capsule 00:00: 04:59 mouth [place] 00 :00 every 6 Medical (six) Branch hours for 3 days. ampicillin 2022-0 2022- No [id number] 500mg Take 1 Univers 500 mg 08-16- [...] of 1,000 mg in 00:00: 23:59 Piggyback, [place] NaCl 0.9% 00 :00 Q24H ABX, Medic [...] dose Medi merissa 40 mg on Sun [place] 08/14/22 at 0900, Until Discontinu ed, Routine isosorbide 2022-0 Yes 30mg 30 mg, Unive rs dinitrate 08-14 Oral, ity of (ISORDIL) 14:00: DAILY, [place] tablet 30 00 First dose Medi merissa mg on Sun [place] 08/14/22 at 0900, Until Discontinu ed, Routine losartan 2022-0 Yes 100mg 100 mg, Unive rs (COZAAR) 08-14 Oral, ity of tablet 100 14:00: DAILY, [place] mg 00 First dose Medical on Sun [place] 08/14/22 at 0900, Until Discontinu ed, Routine DULoxetine 2022-0 Yes 20mg 20 mg, Unive rs (CYMBALTA) 08-14 Oral, ity of capsule 20 14:00: DAILY, [place] mg 00 First dose Medical on [facility] 08/14/22 at 0900, Until Discontinu ed, Routine clopidogreL 2022-0 Yes 75mg 75 mg, Univ ers (PLAVIX) 75 08-14 Oral, ity of mg tablet 14:00: DAILY, [place] 75 mg 00 First dose Medical on Sun [place] 08/14/22 at 0900, Until Discontinu ed, Routine atorvastati 2022-0 Yes 80mg 80 mg, Univ ers n (LIPITOR) 08-14 Oral, ity of tablet 80 14:00: DAILY, [place] mg 00 First dose Medical on [facility] 08/14/22 at 0900, Until Discontinu ed, Routine amLODIPine 2022-0 Yes 5mg 5 mg, Univer s (NORVASC) 08-14 Oral, ity of tablet 5 mg 14:00: DAILY, [place] 00 First dose Medical on [facility] 08/14/22 at 0900, Until Discontinu ed, Routine enoxaparin 2022-0 Yes 40mg 40 mg, Unive rs (LOVENOX) 08-14 Subcutaneo ity of injection 14:00: [place] 40 [place] 00 First dose Medical on [facility] 08/14/22 at 0900, Until Discontinu ed, Routine hydroCHLORO 2023-0 2023- No 12.5mg 12.5 mg, Univers thiazide 5-22 05-23 Oral, ity of (ESIDRIX) 14:00: 15:48 DAILY, [place] tablet 12.5 00 :16 First dose Me dical mg on [facility] 08/14/22 at 0900, Until Discontinu ed pregabalin Yes 100mg 100 mg, Uni vers (LYRICA) 08-14 Oral, BID, ity o f capsule 100 13:00: First dose [place] mg 00 on [facility] 08/14/22 at Branch 0800, Until Discontinu ed, Routine carvediloL Yes 3.125mg 3.125 mg, Univers (COREG) 08-14 Oral, BID ity of tablet 13:00: MEALS, [place] 3.125 mg 00 First dose Medic al on [facility] 08/14/22 at 0800, Until Discontinu ed, Routine levothyroxi Yes 50ug 50 mcg, Uni vers ne 08-14 Oral, ity of (SYNTHROID) 11:00: QAM-0600, [place] tablet 50 00 First dose Medi merissa mcg on [facility] 08/14/22 at 0600, Until Discontinu ed, Routine gabapentin 2022- No 600mg Take 2 Uni vers (NEURONTIN) 08-14 capsules ity of 300 mg 02:57: 00:00 by mouth [place] capsule 12 :00 in the Medical morning Branch and 2 capsules in the evening. linaCLOtide 2022- No 145ug Take 1 Un amber 145 mcg 08-14 capsule by ity o f capsule 02:57: 00:00 mouth in [place] 12 :00 the Medical morning. Branch acidophilus 0 2022- No 1{capsu Take 1 Cap Univers -pectin, 08-14 le} by mouth ity of citrus 100 02:57: 00:00 [place]. [place] million 12 :00 Medical cell-10 mg Branch Cap coenzyme 2022- No 100mg Take 1 Unive rs Q10 100 mg 08-14 capsule by it y of softgel 02:57: 00:00 mouth in [place] 12 :00 the Medical morning. Branch multivit-mi [...] IV Push, ity of (PF)) 02:29: Q6HPRN, [place] injection 4 01 Starting Medi merissa mg on [facility] 08/13/22 at 2128, Until Discontinu ed, Routine, Nausea and Vomiting (N/V) acetaminoph Yes 650mg 650 mg, Un amber en 08-14 Oral, ity of (TYLENOL) 02:28: Q6HPRN, [place] tablet 650 39 Starting Medic al mg on [facility] 08/13/22 at 2127, Until Discontinu ed, Routine, Pain (scale 1-3) iopamidol 2022- No [id number] 100mL 100 mL, Univers (ISOVUE 08-14 Intravenou ity o f 370-500 mL) 02:00: 02:00 s, ONCE, 1 [place] injection 00 :00 dose, On Medica l 100 mL [facility] 08/13/22 at 2100, Routine cloNIDine 2022- No .1mg 0.1 mg, Univ ers (CATAPRES) 08-14 Oral, ity of tablet 0.1 00:15: 00:30 ONCE, 1 [place] as mg 00 :00 dose, On Medical Sun Branch 08/13/22 at 1915, STAT cefTRIAXone 2022-2022- No 1000mg 1,000 mg, Univers (ROCEPHIN) 08-14-22 IV ity of 1,000 mg in 00:00: 00:45 Piggyback, [place] NaCl 0.9% 00 :00 ONCE, 1 Medical (NS) 100 mL dose, On Bran ch MINI-BAG [place] 08/13/22 at 1900, Administer over 30 Minutes, 100 mL
Reas on for Anti-Infec tive: Empiric Non-Surgic al Prophylaxi s
Durat ion of therapy: 72 hours NaCl 0.9% 2022- No 500mL at 999 Univ ers (NS) bolus 08-13 mL/hr, 500 it y of infusion 23:15: 01:00 mL, IV [place] 500 mL 00 :00 Infusion, Medical ONCE, 1 Branch dose, On [place] 08/13/22 at 1815, STAT fluticasone 2022-0 Yes [id number] SPRAY 2 Methodi propionate 5-[address] (FLONASE) 00:00: INTO EACH Hos yoan 50 00 NOSTRIL l mcg/actuati EVERY DAY on nasal spray fluticasone 2022-0 Yes [id number] SPRAY 2 Methodi propionate 5-[address] (FLONASE) 00:00: INTO EACH Hos yoan 50 00 NOSTRIL l mcg/actuati EVERY DAY on nasal spray fluticasone 2022-0 Yes [id number] SPRAY 2 Methodi propionate 5-[address] (FLONASE) 00:00: INTO EACH Hos yoan 50 00 NOSTRIL l mcg/actuati EVERY DAY on nasal spray fluticasone 3-0 Yes [id number] SPRAY 2 Methodi propionate 5-[address] (FLONASE) 00:00: INTO EACH Hos yoan 50 00 NOSTRIL l mcg/actuati EVERY DAY on nasal spray fluticasone 3-0 Yes [id number] SPRAY 2 Methodi propionate 5-[address] (FLONASE) 00:00: INTO EACH Hos yoan 50 00 NOSTRIL l mcg/actuati EVERY DAY on nasal spray fluticasone 2022-0 Yes [id number] SPRAY 2 Methodi propionate 5-[address] (FLONASE) 00:00: INTO EACH Hos yoan 50 00 NOSTRIL l mcg/actuati EVERY DAY on nasal spray clopidogrel 2023-0 Yes 75mg QD Take 1 [...] B-12, 22 l (VITAMIN B-12 ORAL) hydroCHLORO 3-0 Yes 12.5mg QD Take 1 Me thodi [...] yoan 22 by mouth l nightly. cyanocobala 3-0 Yes Take by Met hodi min, 3-[address] vitamin 14:59: Hospita B-12, 22 l (VITAMIN B-12 ORAL) hydroCHLORO 3-0 Yes 12.5mg QD Take 1 Me thodi [...] l times a day with meals. donepeziL 3-0 Yes 5mg QD Take 5 mg Met [...] 25mg QD Take 25 mg Methodi thiazide 2-07 12-[address] (HYDRODIURI 10:02: 00:00 [...] mouth st mg tablet 10:00: 00:00 daily. [facility] ta 51 :00 l amLODIPine 2021-03- No 5mg QD Take 5 mg M ethodi (NORVASC) 5 05-[address] mg tablet 10:00: 00:00 daily. [facility] ta 51 :00 l amLODIPine 2021-03- No 5mg QD Take 5 mg M ethodi (NORVASC) 5 05-[address] mg tablet 10:00: 00:00 daily. [facility] ta 51 :00 l amLODIPine 2021-03- No 5mg QD Take 5 mg M ethodi (NORVASC) 5 05-[address] mg tablet 10:00: 00:00 daily. [facility] ta 51 :00 l losartan 2021-03- [...] 100mg QD Take 1 Metho di (COZAAR) 203-[address] 100 MG 10:00: 00:00 (100 [...] by l mouth daily. fluticasone 2021-03 Yes [id number] 100ug QD 2 sprays Methodi propionate - ([address] (FLONASE) 00:00: total) by Hos yoan 50 00 Each Nare l mcg/actuati route on nasal daily. spray losartan 2021-03 Yes 100mg QD Take 1 Method i (COZAAR) 2-[address] 100 MG 00:00: (100 mg Hospita tablet 00 total) by l mouth daily. fluticasone 2021-03 Yes [id number] 100ug QD 2 sprays Methodi propionate - [...] by l mouth daily. fluticasone 2021-03- No [id number] 100ug QD 2 sprays Methodi propionate 2-07 05-15 ([address] (FLONASE) 00:00: 00:00 total) by Ho spita 50 00 :00 Each Nare l mcg/actuati route on nasal daily. spray fluticasone 2021-03- No [id number] 100ug QD 2 sprays Methodi propionate 2-07 05-15 ([address] (FLONASE) 00:00: 00:00 total) by Ho spita 50 00 :00 Each Nare l mcg/actuati route on nasal daily. spray fluticasone 2021-03- No [id number] 100ug QD 2 sprays Methodi propionate 2-07 05-15 ([address] (FLONASE) 00:00: 00:00 total) by Ho spita 50 00 :00 Each Nare l mcg/actuati route on nasal daily. spray fluticasone 2021-03- No [id number] 100ug QD 2 sprays Methodi propionate 2-07 05-15 ([address] (FLONASE) 00:00: 00:00 total) by Ho spita 50 00 :00 Each Nare l mcg/actuati route on nasal daily. spray fluticasone 2021-03- No [id number] 100ug QD 2 sprays Methodi propionate 2-07 05-15 ([address] (FLONASE) 00:00: 00:00 total) by Ho spita 50 00 :00 Each Nare l mcg/actuati route on nasal daily. spray fluticasone 2021-03- No [id number] 100ug QD 2 sprays Methodi propionate 2-07 [...] solution COCONUT OIL 2021-03- No Take by De thodi ORAL 04-[address] 14:06: 00:00 Hospita 36 :00 l COCONUT OIL 2021-03- No Take by De thodi ORAL 04-[address] 14:06: 00:00 Hospita 36 :00 l COCONUT OIL 2021-03- No Take by De thodi ORAL 04-[address] 14:06: 00:00 Hospita 36 :00 l COCONUT OIL 2021-03- No Take by De thodi ORAL 04-[address] 14:06: 00:00 Hospita 36 :00 l COCONUT OIL 2021-03- No Take by De thodi ORAL 04-[address] 14:06: 00:00 Hospita 36 :00 l oxyCODone-a 2021-03- No [id number] 1{tbl} Q6H Take 1 Methodi cetaminophe 04-[address] n 00:00: 05:59 mouth Hospita (PERCOCET) 00 :00 every 6 l 5-325 mg (six) per tablet hours as needed for moderate pain for up to 5 days .acute pain. Max Daily Amount: 4 tablets oxyCODone-a 2021-03- No [id number] 1{tbl} Q6H Take 1 Methodi cetaminophe 04-01 [...] 00 by mouth l daily. levothyroxi 2021-0 2- No 88ug QD Take [...] :00 (two) l times a day. apixaban 2021-2021- No 2.5mg Q.5D Take 2.5 [...] 100mg QD Take 100 Me thodi (PACERONE) -[address] 200 MG 09:45: mouth [...] Hospita ophthalmic 36 :00 l solution polyethylen 2021-0 2- No 17g QD Take 17 g [...] QD Take 17 g Methodi e glycol 10-[address] (MIRALAX) 11:20: 00:00 daily. Hospi ta 17 gram 29 :00 l packet polyethylen 2-0 2022- No 17g QD Take 17 g Methodi e glycol 10-[address] (MIRALAX) 11:20: 00:00 daily. Hospi ta 17 gram 29 :00 l packet fenofibrate 2022-0 Yes 54mg Take 54 mg Methodi (LOFIBRA) 7-[address] 54 MG 00:00: Hospita tablet 00 l fenofibrate 2022-0 Yes 54mg Take 54 mg Methodi (LOFIBRA) -[address] 54 MG 00:00: Hospita [...] 20mg QD Take 20 mg Methodi e 08-17-[address] (PROTONIX) 00:00: 00:00 daily. Hosp dinora 20 MG EC 00 :00 l tablet pantoprazol 2022-0 2022- No 20mg QD Take 20 mg Methodi e 08-17-[address] (PROTONIX) 00:00: 00:00 daily. [...] QD Take 1 Me thodi r (VALTREX) 302-[address] 500 MG 00:00: 00:00 (500 mg Hospita tablet 00 :00 total) by l mouth daily. valACYclovi 2021- No 500mg QD Take 1 Me thodi r (VALTREX) 302-[address] 500 MG 00:00: 00:00 (500 mg Hospita tablet 00 :00 total) by l mouth daily. levothyroxi 2021- No 100ug QD Take 1 Me thodi ne 1-[address] (SYNTHROID) 00:00: 00:00 (100 mcg [...] levothyroxi No 100ug QD Take 1 Me thodi ne 04-[address] (SYNTHROID) 00:00: 00:00 (100 mcg [...] 00 :00 outbreak l pregabalin No 50mg Q.[id number] Take 50 mg Methodi (LYRICA) 50 03-31 [id number] mouth [address] MG capsule 09:42: 00:00 3D (three) Hos yoan 10 :00 times a l day. aspirin No 81mg QD Take 81 mg Met hodi (ECOTRIN) 03-[address] 81 MG 09:30: 00:00 daily. Hospita enteric 34 :00 l coated tablet Bacillus No 1{tbl} QD Take 1 Meth mike coagulans 03-[address] (PROBIOTIC, 09:30: 00:00 mouth Hosp dinora B. 31 :00 daily. heather COAGULSHEBA,) 10 billion cell capsule,del ayed release(DR/ EC) carbidopa-l No Metho di evodopa 03-31 st (SINEMET) 09:30: 00:00 Hospita 25-100 mg 16 :00 l per tablet ondansetron No Metho di ODT 03-31 st (ZOFRAN-ODT 09:28: 00:00 Hospi ta ) 4 MG 12 :00 l disintegrat ing tablet traMADoL Methodi (ULTRAM) 50 03-31 st mg tablet 09:25: 00:00 Hospita 58 :00 l UBIDECARENO 2022-0 2022- No 1{tbl} QD Take 1 M ethodi NE (COQ-10 03-31- tablet by st ORAL) 09:25: 00:00 mouth [...] total) by l mouth nightly. pregabalin 2022-0 2023- No 50mg QD Take 1 Meth mike (LYRICA) 50 -08 24-[address] MG capsule 00:00: 05:59 (50 mg Hosp dinora 00 :00 total) by l mouth nightly. levothyroxi 2020-03- No TAKE 1 Met hodi ne 2-08 01-[address] (SYNTHROID) 00:00: 00:00 MOUTH [...] 20mg QD Take 1 Met hodi e 10-25- tablet (20 st (PROTONIX) 00:00: 00:00 mg total) H ospita 20 MG EC 00 :00 by mouth l tablet daily. acetaminoph 2021- No 1{tbl} 1 tablet. Methodi en-codeine 09-28- st (TYLENOL 00:00: 00:00 Hospita WITH 00 :00 l CODEINE #3) 300-30 mg per tablet diclofenac Yes [id number] APPLY 2 Methodi (VOLTAREN) 4-[address] 1 % gel 00:00: RIGHT KNEE Hosp dinora 00 4 TIMES A l DAY NEEDED FOR PAIN diclofenac 2021- No [id number] APPLY 2 Methodi (VOLTAREN) 4-26 11-[address] 1 % gel 00:00: 00:00 RIGHT KNEE Hos yoan 00 :00 4 TIMES A l DAY NEEDED FOR PAIN diclofenac 2021- No [id number] APPLY 2 Methodi (VOLTAREN) 4-26 11-[address] 1 % gel 00:00: 00:00 RIGHT KNEE Hos yoan 00 :00 4 TIMES A l DAY NEEDED FOR PAIN diclofenac 2021- No [id number] APPLY 2 Methodi (VOLTAREN) 4-26 11-[address] 1 % gel 00:00: 00:00 RIGHT KNEE Hos yoan 00 :00 4 TIMES A l DAY NEEDED FOR PAIN diclofenac 2021- No [id number] APPLY 2 Methodi (VOLTAREN) 4-26 11-[address] 1 % gel 00:00: 00:00 RIGHT KNEE Hos yoan 00 :00 4 TIMES A l DAY NEEDED FOR PAIN diclofenac 2021- No [id number] APPLY 2 Methodi (VOLTAREN) 4-26 11-[address] 1 % gel 00:00: 00:00 RIGHT KNEE Hos yoan 00 :00 4 TIMES A l DAY NEEDED FOR PAIN potassium 2019-03- No TAKE 1 Metho di chloride 0-12 03-[address] (K-DUR) 20 00:00: 00:00 MOUTH Hospi ta MEQ CR 00 :00 EVERY DAY l tablet Apixaban No 2.5mg Twice A ANNIKA TU (Eliquis) 09-24 Day S 2.5 Mg TAB 12:37: Health 00 Apixaban 2019-0 No 2.5mg [facility] (Eliquis) 09-24 st 2.5 Mg TAB [...] 00:00: mouth Hospita tablet 00 daily. l multivit-ny 2011-03 Yes 1{tbl} QD Take 1 Me [...] ce Name Immunization Name Tdap 2022-01-19 Completed Jainism 00:00:00 [facility] Tdap 2022-01-19 Completed Jainism 00:00:00 [facility] Tdap 2022-01-19 Completed [facility] 00:00:00 Hospital FLUZONE HIGH-DOSE PF 2021-12-15 Completed Meth odist 00:00:00 [facility] FLUZONE HIGH-DOSE PF 2021-12-15 Completed Meth odist 00:00:00 [facility] FLUZONE HIGH-DOSE PF 2021-12-15 Completed Meth odist 00:00:00 [facility] FLUZONE HIGH-DOSE PF 2021-03-31 Completed Meth odist 00:00:00 [facility] FLUZONE HIGH-DOSE PF 2021-03-31 Completed Meth odist 00:00:00 [facility] FLUZONE HIGH-DOSE PF 2021-03-31 Completed Meth odist 00:00:00 [facility] FLUZONE HIGH-DOSE PF 2021-03-31 Completed Meth odist 00:00:00 [place] [id number] 2021-02-02 Completed Methodis t MRNA VACCINATION 00:00:00 [place] [id number] 2021-02-02 Completed Methodis t MRNA VACCINATION 00:00:00 [place] [id number] 2021-02-02 Completed Methodis t MRNA VACCINATION 00:00:00 [place] [id number] 2021-02-02 Completed Methodis t MRNA VACCINATION 00:00:00 [facility] FLUZONE HIGH-DOSE PF 2020-12-21 Completed Meth odist 00:00:00 [facility] FLUZONE HIGH-DOSE PF 2020-12-21 Completed Meth odist 00:00:00 [facility] FLUZONE HIGH-DOSE PF 2020-12-21 Completed Meth odist 00:00:00 [facility] FLUZONE HIGH-DOSE PF 2020-12-21 Completed Meth odist 00:00:00 [place] [id number] 2020-05-27 Completed [facility] MRNA VACCINATION 00:00:00 [place] [id number] 2020-05-27 Completed [facility] MRNA VACCINATION 00:00:00 [place] [id number] 2020-05-27 Completed [facility] MRNA VACCINATION 00:00:00 [place] [id number] 2020-05-27 Completed [facility] MRNA VACCINATION 00:00:00 [place] [id number] 2020-05-27 Completed [facility] MRNA VACCINATION 00:00:00 [place] [id number] 2020-05-27 Completed [facility] MRNA VACCINATION 00:00:00 [place] [id number] 2020-05-27 Completed [facility] MRNA VACCINATION 00:00:00 [place] [id number] 2020-05-27 Completed [facility] MRNA VACCINATION 00:00:00 [place] [id number] 2020-05-01 Completed [facility] MRNA VACCINATION 00:00:00 [place] [id number] 2020-05-01 Completed [facility] MRNA VACCINATION 00:00:00 [place] [id number] 2020-05-01 Completed [facility] t MRNA VACCINATION 00:00:00 [place] [id number] 2020-05-01 Completed [facility] MRNA VACCINATION 00:00:00 [place] [id number] 2020-05-01 Completed [facility] t MRNA VACCINATION 00:00:00 [place] [id number] 2020-05-01 Completed [facility] MRNA VACCINATION 00:00:00 [place] [id number] 2020-05-01 Completed [facility] MRNA VACCINATION 00:00:00 [place] [id number] 2020-05-01 Completed Method[facility] t MRNA VACCINATION 00:00:00 [facility] FLUZONE HIGH-DOSE PF 2019-11-25 Completed Meth odist 00:00:00 [facility] Pneumococcal 2019-11-25 Completed [facility] Polysaccharide 00:00:00 [facility] FLUZONE HIGH-DOSE PF 2019-11-25 Completed Meth odist 00:00:00 [facility] Pneumococcal 2019-11-25 Completed [facility] Polysaccharide 00:00:00 [facility] FLUZONE HIGH-DOSE PF 2019-11-25 Completed Meth odist 00:00:00 [facility] Pneumococcal 2019-11-25 Completed [facility] Polysaccharide 00:00:00 [facility] FLUZONE HIGH-DOSE PF 2019-11-25 Completed Meth odist 00:00:00 [facility] Pneumococcal 2019-11-25 Completed [facility] Polysaccharide 00:00:00 [facility] Td, Unspecified 2018-01-20 Completed [facility] 00:00:00 Hospital Td, Unspecified 2018-01-20 Completed [facility] 00:00:00 Hospital Td, Unspecified 2018-01-20 Completed [facility] 00:00:00 Hospital Td, Unspecified 2018-01-20 Completed [facility] 00:00:00 Hospital FLUZONE HIGH-DOSE PF 2017-11-08 Completed [...] Meth odist 00:00:00 Hospital Pneumococcal 2015-05-26 Completed [facility] Conjugate 13-Valent 00:00:00 [facility] Pneumococcal 2015-05-26 Completed [facility] Conjugate 13-Valent 00:00:00 [facility] Pneumococcal 2015-05-26 Completed [facility] Conjugate 13-Valent 00:00:00 [facility] Pneumococcal 2015-05-26 Completed [facility] Conjugate 13-Valent 00:00:00 [facility] Influenza Trivalent [...] Meth odist 00:00:00 Hospital Zoster 2014-02-03 Completed [facility] 00:00:00 Hospital Zoster 2014-02-03 Completed [facility] 00:00:00 Hospital Zoster 2014-02-03 Completed [facility] 00:00:00 Hospital Zoster 2014-02-03 Completed [facility] 00:00:00 Hospital Influenza Trivalent 2013-12-17 Completed Metho [...] Influenza Trivalent 2012-12-10 Completed Metho dist 00:00:00 [facility] TD (ADULT), 5 2008-07-29 Completed Method[facility] t TETANUS TOXOID, 00:00:00 Hospital PRESERVATIVE FREE, ABSORBED TD (ADULT), 5 2008-07-29 Completed [facility] TETANUS TOXOID, 00:00:00 Hospital PRESERVATIVE FREE, ABSORBED TD (ADULT), 5 2008-07-29 Completed [facility] TETANUS TOXOID, 00:00:00 Hospital PRESERVATIVE FREE, ABSORBED TD (ADULT), 5 2008-07-29 Completed [facility] TETANUS TOXOID, 00:00:00 Hospital PRESERVATIVE FREE, ABSORBED Pneumococcal 2001-03-06 Completed [facility] Polysaccharide 00:00:00 Hospital Pneumococcal 2001-03-06 Completed [facility] Polysaccharide 00:00:00 Hospital Pneumococcal 2001-03-06 Completed [facility] Polysaccharide 00:00:00 [facility] Pneumococcal 2001-03-06 Completed [facility] Polysaccharide 00:00:00 Hospital Influenza Trivalent Unknown Completed [facility] Influenza Trivalent Unknown Completed [facility] Pneumococcal Unknown Completed [facility] Conjugate [facility] Pneumococcal Unknown Completed [facility] Polysaccharide [facility] TD (ADULT), 5 LF Unknown Completed [facility] TETANUS TOXOID, Hospital PRESERVATIVE FREE, ABSORBED Zoster Unknown Completed [facility] Influenza Trivalent Unknown Completed [facility] FLUZONE HIGH-DOSE PF Unknown Completed [facility] FLUZONE HIGH-DOSE PF Unknown Completed [facility] Pneumococcal Unknown Completed [facility] COVID19 Unknown Completed [facility] MRNA VACCINATION [facility] COVID19 Unknown Completed [facility] MRNA VACCINATION [facility] FLUZONE HIGH-DOSE PF Unknown Completed [facility] FLUZONE HIGH-DOSE PF Unknown Completed [facility] Td, Unspecified Unknown Completed [facility] COVID-19 Unknown Completed [facility] MRNA VACCINATION [facility] COVID19 Unknown Completed [facility] MRNA VACCINATION [facility] FLUZONE HIGH-DOSE PF Unknown Completed [facility] COVID19 Unknown Completed [facility] MRNA VACCINATION [facility] FLUZONE HIGH-DOSE PF Unknown Completed [facility] FLUZONE HIGH-DOSE PF Unknown Completed [facility] FLUZONE HIGH-DOSE PF Unknown Completed [facility] FLUZONE HIGH-DOSE PF Unknown Completed [facility] Tdap Unknown Completed [facility] Influenza Trivalent Unknown Completed [facility] Influenza Trivalent Unknown Completed [facility] Pneumococcal Unknown Completed [facility] Pneumococcal Unknown Completed [facility] Polysaccharide [facility] TD (ADULT), 5 LF Unknown Completed [facility] TETANUS TOXOID, Hospital PRESERVATIVE FREE, ABSORBED Zoster Unknown Completed [facility] Influenza Trivalent Unknown Completed [facility] FLUZONE HIGH-DOSE PF Unknown Completed [facility] FLUZONE HIGH-DOSE PF Unknown Completed [facility] Pneumococcal Unknown Completed [facility] Polysaccharide [facility] COVID-19 Unknown Completed [facility] MRNA VACCINATION [facility] COVID19 Unknown Completed [facility] MRNA VACCINATION [facility] FLUZONE HIGH-DOSE PF Unknown Completed [facility] FLUZONE HIGH-DOSE PF Unknown Completed [facility] Td, Unspecified Unknown Completed [facility] COVID-19 Unknown Completed [facility] MRNA VACCINATION [facility] COVID-19 Unknown Completed Method [facility] MRNA VACCINATION [facility] FLUZONE HIGH-DOSE PF Unknown Completed [facility] COVID-19 Unknown [facility] FLUZONE HIGH-DOSE PF Unknown Completed [facility] FLUZONE HIGH-DOSE PF Unknown Completed [facility] FLUZONE HIGH-DOSE PF Unknown Completed [facility] FLUZONE HIGH-DOSE PF Unknown Completed [facility] Tdap Unknown Completed [facility] Influenza Trivalent Unknown Completed [facility] Influenza Trivalent Unknown Completed [facility] Pneumococcal Unknown Completed [facility] Pneumococcal Unknown Completed [facility] TD (ADULT), 5 LF Unknown Completed [facility] TETANUS TOXOID, Hospital PRESERVATIVE FREE, ABSORBED Zoster Unknown Completed [facility] Influenza Trivalent Unknown Completed [facility] FLUZONE HIGH-DOSE PF Unknown Completed [facility] FLUZONE HIGH[facility]DOSE PF Unknown Completed [facility] Pneumococcal Unknown [facility] Com[facility] t MRNA VACCINATION [facility] FLUZONE HIGH-DOSE PF Unknown Completed [facility] FLUZONE HIGH-DOSE PF Unknown Completed [facility] Td, Unspecified Unknown [facility] MRNA [facility] FLUZONE HIGH-DOSE PF Unknown [facility] MRNA [facility] FLUZONE HIGH-DOSE PF Unknown Completed [facility] FLUZONE HIGH-DOSE PF Unknown Completed [facility] FLUZONE HIGH-DOSE PF Unknown Completed [facility] FLUZONE HIGH-DOSE PF Unknown Completed [facility] Tdap Unknown Completed [facility] Influenza Trivalent Unknown Completed [facility] Influenza Trivalent Unknown Completed [facility] Pneumococcal Unknown Completed [facility] Pneumococcal Unknown Completed [facility] TD (ADULT), 5 LF Unknown Completed [facility] TETANUS TOXOID, Hospital PRESERVATIVE FREE, ABSORBED Zoster Unknown Completed [facility] Influenza Trivalent Unknown Completed [facility] FLUZONE HIGH-DOSE PF Unknown Completed [facility] FLUZONE HIGH-DOSE PF Unknown Completed [facility] Pneumococcal Unknown Completed [facility] COVID-19 Unknown Completed [facility] MRNA VACCINATION [facility] ID Unknown Completed Method t MRNA VACCINATION [facility] FLUZONE HIGH-DOSE PF Unknown Completed [facility] FLUZONE HIGH-DOSE PF Unknown Completed [facility] Td, Unspecified Unknown Completed [facility] COVID Unknown Completed [facility] MRNA VACCINATION [facility] ID Unknown Completed Method t MRNA VACCINATION [facility] FLUZONE HIGH-DOSE PF Unknown Completed [facility] COVID Unknown Completed Method t MRNA VACCINATION [facility] FLUZONE HIGH-DOSE PF Unknown Completed [facility] FLUZONE HIGH-DOSE PF Unknown Completed [facility] FLUZONE HIGH-DOSE PF Unknown Completed [facility] FLUZONE HIGH-DOSE PF Unknown Completed [facility] Tdap Unknown Completed [facility] Influenza Trivalent Unknown Completed [facility] Influenza Trivalent Unknown Completed [facility] Pneumococcal Unknown Completed [facility] P[facility] Completed [facility] TD (ADULT), 5 LF Unknown Completed [facility] TETANUS TOXOID, Hospital PRESERVATIVE FREE, ABSORBED Zoster Unknown Completed [facility] Influenza Trivalent Unknown Completed [facility] FLUZONE HIGH-DOSE PF Unknown Completed [facility] FLUZONE HIGH-DOSE PF Unknown Completed [facility] Pneumococcal Unknown Completed [facility] ID Unknown Completed [facility] MRNA VACCINATION [facility] ID Unknown Completed [facility] MRNA VACCINATION [facility] FLUZONE HIGH-DOSE PF Unknown Completed [facility] FLUZONE HIGH-DOSE PF Unknown Completed [facility] Td, Unspecified Unknown Completed [facility] COVID Unknown Completed [facility] MRNA VACCINATION [facility] ID Unknown Completed [facility] MRNA VACCINATION [facility] FLUZONE HIGH-DOSE PF Unknown Completed [facility] COVID Unknown Completed Method t MRNA VACCINATION [facility] FLUZONE HIGH-DOSE PF Unknown Completed [facility] FLUZONE HIGH-DOSE PF Unknown Completed [facility] FLUZONE HIGH-DOSE PF Unknown Completed [facility] FLUZONE HIGH-DOSE PF Unknown Completed [facility] Tdap Unknown Completed [facility] Vital Signs Vital Name Observation Time Observation Value Comments Source Oxygen saturation in 2022-08-16 20:47:00 96 /min [facility] Arterial blood by [facility] Pulse oximetry Branch Systolic blood 2022-08-16 20:47:00 102 mm[Hg] Univer sity of pressure [facility] Diastolic blood 2022-08-16 20:47:00 49 mm[Hg] Unive rsity of pressure [facility] Heart rate 2022-08-16 20:47:00 61 /min [facility] Body temperature 2022-08-16 20:47:00 36.33 [facility] Res[facility] rate 2022-08-16 20:47:00 18 /min [facility] Body weight 2022-08-16 09:13:00 51.483 kg [facility] BMI 2022-08-16 09:13:00 21.45 kg/m2 [facility] Body height 2022-08-13 22:34:00 154.9 cm [facility] Systolic blood 2022-03-01 15:41:00 177 mm[Hg] [facility] pressure Diastolic blood 2022-03-01 15:41:00 75 mm[Hg] [facility] pressure Heart rate 2022-03-01 15:41:00 53 /min [facility] Body temperature 2022-03-01 15:41:00 36.72 Constance [facility] Body height 2022-03-01 15:41:00 152.4 cm [facility] Body weight 2022-03-01 15:41:00 52.708 kg [facility] BMI 2022-03-01 15:41:00 22.69 kg/m2 [facility] Oxygen saturation in 2022-03-01 15:41:00 96 /min [facility] Arterial blood by Pulse oximetry Respiratory rate 2022-01-30 19:19:00 20 /min [facility] Systolic blood 2021-12-21 15:38:00 174 mm[Hg] [facility] pressure Diastolic blood 2021-12-21 15:38:00 66 mm[Hg] [facility] pressure Heart rate 2021-12-21 14:42:00 60 /min [facility] Body temperature 2021-12-21 14:42:00 36.33 Constance [facility] Respiratory rate 2021-12-21 14:42:00 16 /min [facility] Body height 2021-12-21 14:42:00 152.4 cm [facility] Body weight 2021-12-21 14:42:00 52.164 kg [facility] BMI 2021-12-21 14:42:00 22.46 kg/m2 [facility] Oxygen saturation in 2021-12-21 14:42:00 98 /min [facility] Arterial blood by Pulse oximetry Body Temperature 2019-09-25 11:40:00 97.2 [degF] [facility] Heart Rate 2019-09-25 11:40:00 63 /min [employer] Respiratory rate 2019-09-25 11:40:00 18 /min [id number] BP Systolic 2019-09-25 11:40:00 94 mm[Hg] [employer] BP Diastolic 2019-09-25 11:40:00 43 mm[Hg] [employer] Weight 2019-09-25 06:07:00 122 [lb_av] [employer] BMI (Body Mass 2019-09-25 06:07:00 24.6 kg/m2 [facility] Health Index) Heart Rate 2019-09-25 03:06:00 87 /min [employer] Respiratory rate 2019-09-25 03:06:00 21 /min [employer] BP Systolic 2019-09-25 03:06:00 160 mm[Hg] [employer] BP Diastolic 2019-09-25 03:06:00 93 mm[Hg] [facility] Procedures Procedure Date / Time Performing Clinician Source Performed COVID-19 (ID NOW RAPID 2022-08-16 15:16:00 Marissa Jackson [facility] TESTING) Medical Branch THYROID STIMULATING 2022-08-14 09:09:00 Diane Corrigan [facility] HORMONE Medical Branch BASIC METABOLIC PANEL (NA, 2022-08-14 09:09:00 Zora Landry [facility] K, CL, CO2, GLUCOSE, BUN, Medica l Branch CREATININE, CA) CBC WITH DIFF 2022-08-14 09:09:00 Leanne [facility] CT ABDOMEN PELVIS W 2022-08-14 01:05:23 [facility] CONTRAST [facility] URINE CULTURE 2022-08-14 00:15:00 Singer Butch [facility] FREE T4 2022-08-14 00:01:00 Diane Corrigan [facility] COMP. METABOLIC PANEL 2022-08-14 00:01:[address] [facility] ([id number]) [facility] CT CERVICAL SPINE WO 2022-08-13 23:30:19 Nicolas Sims [facility] CONTRAST [facility] CT HEAD WO CONTRAST 2022-08-13 23:29:57 Nicolas Sims [facility] XR CHEST 1 VW 2022-08-13 23:28:[address] [facility] BLOOD CULTURE SCREEN 2022-08-13 23:13:00 Nicolas Sims [facility] TROPONIN I 2022-08-13 23:13:[address] [facility] SALICYLATE 2022-08-13 23:13:[address] [facility] ETHANOL 2022-08-13 23:13:[address] [facility] URINE DRUG (IMMUNOASSAY) - 2022-08-13 23:13:00 Nicolas Sims [facility] COMPREHENSIVE DRUG SCREEN [facility] CBC WITH DIFF 2022-08-13 23:13:[address] [facility] URINALYSIS 2022-08-13 23:13:[address] [facility] RAPID INFLUENZA A/B 2022-08-13 23:13:00 Nicolas Sims [facility] N-TERMINAL PRO-BNP 2022-08-13 23:13:00 Nicolas Sims [facility] COVID-19 (ID NOW RAPID 2022-08-13 23:13:00 Nicolas Sims [facility] TESTING) Medical [place] [facility] ONLY COVID 2022-08-13 23:13:00 Nicolas Sims [facility] INTERPRETATION [facility] HB ECG ROUTINE & RHYTHM 2022-08-13 22:48:19 [facility] AR[facility] 2022-06-21 14:30:00 Adrianna [facility] ASPIR&/INJ MAJOR JT/BURSA W/O US OPERATION, KNEE, 2022-01-30 17:05:00 Adrianna Miranda [facility] ARTHROSCOPIC POC GLUCOSE 2022-01-30 16:15:00 Adrianna Miranda spital PA AN ELECTIVE 2022-01-30 15:04:00 Collin Farooq [facility] SUPRAGLOTTIC AIRWAY OPERATION, KNEE, 2022-01-30 14:59:00 Adrianna Miranda H [facility]spital ARTHROSCOPIC POC PANEL 2022-01-30 14:11:00 Adrianna Miranda spital MAMMO BREAST SCREEN 2021-12-28 14:46:00 [facility] TOMOSYNTHESIS BILATERAL [place] CBC WITH PLATELET AND 2021-12-22 12:45:00 [facility] DIFFERENTIAL [place] THYROID STIMULATING 2021-12-22 12:45:00 [facility] HORMONE [place] COMPREHENSIVE METABOLIC 2021-12-22 12:45:00 [facility] PANEL [place] URINALYSIS, AUTOMATED WITH 2021-12-22 12:45:00 [facility] MICROSCOPY [place] LIPID PANEL 2021-12-22 12:45:00 [facility] [place] HEMOGLOBIN A1C 2021-12-22 12:45:00 [facility] [place] VITAMIN D 25 HYDROXY LEVEL 2021-12-22 12:45:00 [facility] [place] CBC WITH PLATELET AND 2021-12-22 12:45:00 [facility] DIFFERENTIAL [place] PA ARTHROCENTESIS 2021-12-21 13:50:00 Adrianna Miranda [facility] ASPIR&/INJ MAJOR JT/BURSA W/O US MRI KNEE WO CONTRAST LEFT 2021-12-14 14:15:00 Adrianna Miranda [facility] XR KNEE 1 OR 2 VW 2021-09-28 19:41:49 Adrianna Miranda [facility] BILATERAL PA ARTHROCENTESIS 2021-09-28 19:30:00 Adrianna Miranda [facility] ASPIR&/INJ MAJOR JT/BURSA W/O US THYROID STIMULATING 2021-03-31 15:55:00 [facility] HORMONE [place] HSV 1 AND 2 SPECIFIC AB 2021-03-31 15:55:00 [facility] IGG [place] Transthoracic two 2019-09-25 00:00:00 [facility] dimensional echocardiography with color Doppler imaging and contrast Myocrd Strain Img Speckl 2019-09-25 00:00:00 [facility] Track X-ray of chest, single 2019-09-24 00:00:00 [facility] view ECG (electrocardiogram) 2019-09-24 00:00:00 [facility] 12 lead ECG interpretation 2019-09-24 00:00:00 [facility] [id number] 2019-08-06 00:00:00 [facility] [id number] 2019-08-06 00:00:00 [facility] [id number] 2019-08-06 00:00:00 [facility] [id number] 2019-08-06 00:00:00 [facility] [id number] 2019-08-06 00:00:00 [facility] Plan of Care Planned Activity Planned Date Details Comments Source Future Scheduled Test 2023-02-08 SHINGLES VACCINES (2 [facility] 13:20:13 of 3) [code = SHINGLES VACCINES (2 of 3)] Future Scheduled Test 2023-02-08 COVID-19 VACCINE (6 [facility] 13:20:13 season) [code = COVID-19 VACCINE ( - season)] Future Scheduled Test 2023-02-08 INFLUENZA VACCINE [facility] 13:20:13 (#1) [code = INFLUENZA VACCINE (#1)] Future Scheduled Test 2023-02-06 SHINGLES VACCINES (2 [facility] 09:41:42 of 3) [code = SHINGLES VACCINES (2 of 3)] Future Scheduled Test 2023-02-06 COVID-19 VACCINE (6 [facility] 09:41:42 season) [code = COVID-19 VACCINE ( season)] Future Scheduled Test 2023-02-06 INFLUENZA VACCINE [facility] 09:41:42 (#1) [code = INFLUENZA VACCINE (#1)] Future Scheduled Test 2023-01-31 SHINGLES VACCINES (2 [facility] 12:07:14 of 3) [code = SHINGLES VACCINES (2 of 3)] Future Scheduled Test 2023-01-31 COVID-19 VACCINE (6 [facility] 12:07:14 ) [code = COVID-19 VACCINE ()] Future Scheduled Test 2023-01-31 INFLUENZA VACCINE [facility] 12:07:14 (#1) [code = INFLUENZA VACCINE (#1)] Future Scheduled Test 2023-01-26 SHINGLES VACCINES (2 [facility] 16:12:37 of 3) [code = SHINGLES VACCINES (2 of 3)] Future Scheduled Test 2023-01-26 COVID-19 VACCINE (6 [facility] 16:12:37 season) [code = COVID-19 VACCINE ()] Future Scheduled Test 2023-01-26 INFLUENZA VACCINE [facility] 16:12:37 (#1) [code = INFLUENZA VACCINE (#1)] Future Scheduled Test 2023-01-19 SHINGLES VACCINES (2 [facility] 14:39:55 of 3) [code = SHINGLES VACCINES (2 of 3)] Future Scheduled Test 2023-01-19 COVID-19 VACCINE (6 [facility] 14:39:55 season) [code = COVID-19 VACCINE ()] Future Scheduled Test 2023-01-19 INFLUENZA VACCINE [facility] 14:39:55 (#1) [code = INFLUENZA VACCINE (#1)] Future Scheduled Test 2022-09-14 SHINGLES VACCINES (2 [facility] 11:02:15 of 3) [code = SHINGLES VACCINES (2 of 3)] Future Scheduled Test 2022-09-14 COVID-19 VACCINE (6 - [facility] 11:02:15 Moderna series) [code = COVID-19 VACCINE (6 - Moderna series)] Future Scheduled Test 2022-09-14 INFLUENZA VACCINE [facility] 11:02:15 [code = INFLUENZA VACCINE] Future Scheduled Test 2022-07-07 SHINGLES VACCINES (1 [facility] 12:32:59 of 2) [code = SHINGLES VACCINES (1 of 2)] Future Scheduled Test 2022-07-07 INFLUENZA VACCINE [facility] 12:32:59 [code = INFLUENZA VACCINE] Future Scheduled Test 2022-04-27 SHINGLES VACCINES (1 [facility] 10:59:44 of 2) [code = SHINGLES VACCINES (1 of 2)] Future Scheduled Test 2022-01-19 HEPATITIS B VACCINES [facility] 18:11:59 (1 of 3 - 3-dose series) [code = HEPATITIS B VACCINES (1 of 3 - 3-dose series)] Future Scheduled Test 2022-01-19 SHINGLES VACCINES (1 [facility] 18:11:59 of 2) [code = SHINGLES VACCINES (1 of 2)] Future Scheduled Test 2022-01-19 COVID-19 VACCINE (4 - [facility] 18:11:59 Booster for Moderna series) [code = COVID-19 VACCINE (4 - Booster for Moderna series)] Future Scheduled Test Serum or plasma [place] cardiac troponin [place] LIVE measurement HCIS (mass/volume) [code = 29727-2] Instructions Atrial Fibrillation [facility] ([facility]) [place] LIVE HCIS Instructions [facility]ix[facility] LIVE HCIS Encounters Start End Encounter Admission Attending Care Care Encounter Source Date/Time Date/Time Type Type Clinicians Facility Department ID 2019-08-06 Inpatient CLIF Finleynicholas DEBU SURG [id number] [facility] 08:00:[address] 2023-01-22 2023-01-22 Patient Arnold 1.2.840.1 [id number] Methodi 00:00:00 00:00:00 Outreach Kathrin 38304.1.[address] 3.430.2.7 Hospit a .3.392866 l .8 2023-01-22 2023-01-22 Patient Arnold, 1.2.840.1 [id number] 48629 Methodi 00:00:00 00:00:00 Outreach Kathrin 10635.1.[address] 3.430.2.7 Hospit a .3.127573 l .8 2023-01-08 2023-01-08 Telephone Debora Marques 1.2.840.1 [id number] Methodi 00:00:00 00:00:[address] 3.430.2.7 Hospit a .3.065197 l .8 2023-01-08 2023-01-08 Telephone Adrianna Miranda 1.2.840.1 [id number] 2 [id number] Methodi 00:00:00 00:00:[address] 3.430.2.7 Hospit a .3.840750 l .8 2023-01-08 2023-01-08 Telephone Debora Marques 1.2.840.1 [id number] Methodi 00:00:00 00:00:[address] 3.430.2.7 Hospit a .3.859757 l .8 2023-01-08 2023-01-08 Telephone Adrianna Miranda 1.2.840.1 [id number] 2 [id number] Methodi 00:00:00 00:00:[address] 3.430.2.7 Hospit a .3.190133 l .8 2023-01-05 2023-01-05 Telephone Adrianna Miranda 1.2.840.1 [id number] 2 [id number] Methodi 00:00:00 00:00:[address] 3.430.2.7 Hospit a .3.519458 l .8 2023-01-05 2023-01-05 Telephone Adrianna Miranda 1.2.840.1 [id number] 2 [id number] Methodi 00:00:00 00:00:[address] 3.430.2.7 Hospit a .3.318261 l .8 2022-11-21 2022-11-21 Telephone Galen, 1.2.840.1 [id number] 748 [id number] Methodi 00:00:00 00:00:[address] [facility] 3.430.2.7 Hospi ta .3.288953 l .8 2022-11-21 2022-11-21 Telephone Galen, 1.2.840.1 [id number] 242 [id number] Methodi 00:00:00 00:00:[address] [facility] 3.430.2.7 Hospi ta .3.238914 l .8 2022-09-29 2022-09-29 Patient Favio, 1.2.840.1 [id number] 2099 [id number] Methodi 00:00:00 00:00:00 Outreach Chelly 01499.1.[address] 3.430.2.7 Hospit a .3.593311 l .8 2022-09-29 2022-09-29 Patient Favio, 1.2.840.1 [id number] 2099 [id number] Methodi 00:00:00 00:00:00 Outreach Chelly 65107.1.[address] 3.430.2.7 Hospit a .3.302334 l .8 2022-08-17 2022-08-17 Transition DENIS Hamlin 1.2.840.114 103 [id number] [facility] 00:00:00 00:00:00 of Care Caden [place] 350.1.13.10 it y of YVAN 4.2.7.2.686 Brian s [id number] [address] 2022-08-13 2022-08-16 Inpatient SHEKHAR [facility] [id number] Univers 17:21:00 16:30:00 DIANE khanna [facility] 2022-08-13 2022-08-16 [facility] Nicolas Sims [facility] 1.2.[id number] [facility] 17:21:00 16:30:00 Encounter Diane Corrigan 350.1.13.10 ity of [place] 4.2.7.2.[address] [facility] [id number] [facility] [address] 2022-08-05 2022-08-05 Refill [place], 1.2.840.1 [id number] 21 Methodi 00:00:00 00:00:[address] [place] 3.430.2.7 Hospi ta .3.729940 l .8 2022-08-05 2022-08-05 Refill [place], 1.2.840.1 [id number] 21 Methodi 00:00:00 00:00:[address] [place] 3.430.2.7 Hospi ta .3.981351 l .8 2022-07-20 2022-07-20 Telephone Galen, 1.2.840.1 [id number] 954 [id number] Methodi 00:00:00 00:00:[address] [place] 3.430.2.7 Hospi ta .3.842002 l .8 2022-07-20 2022-07-20 Telephone [place], 1.2.840.1 [id number] 986 [id number] Methodi 00:00:00 00:00:[address] [place] 3.430.2.7 Hospi ta .3.843610 l .8 2022-07-17 2022-07-17 Patient Favio, 1.2.840.1 [id number] 2100 840333 Methodi 00:00:00 00:00:00 Outreach Chelly [address]5579.1.[address] 3.430.2.7 Hospit a .3.199843 l .8 2022-07-17 2022-07-17 Patient Favio, 1.2.840.1 [id number] 2100 408589 Methodi 00:00:00 00:00:00 Outreach Chelly 42733.1.[address] 3.430.2.7 Hospit a .3.747585 l .8 2022-07-07 2022-07-07 Patient Reyes, 1.2.840.1 [id number] 448084 3105 Methodi 00:00:00 00:00:00 Outreach Emily 29462.1.1 006 s t 3.430.2.7 Hospit a .3.876796 l .8 2022-07-07 2022-07-07 Patient Reyes, 1.2.840.1 [id number] 290309 3990 Methodi 00:00:00 00:00:00 Outreach Emily 36640.1.1 006 s t 3.430.2.7 Hospit a .3.232633 l .8 2022-07-06 2022-07-06 Prep for Tony 1.2.840.1 [id number] 2 [id number] Methodi 00:00:00 00:00:00 Surgery an, Marisa 66160.1.[address] [place] 3.430.2.7 Hospit a .3.089288 l .8 2022-07-06 2022-07-06 Prep for Tony 1.2.840.1 [id number] 2 [id number] Methodi 00:00:00 00:00:00 Surgery an, Marisa 32651.1.[address] [place] 3.430.2.7 Hospit a .3.775960 l .8 2022-06-22 2022-06-22 Patient Reyes, 1.2.840.1 [id number] 588291 5147 Methodi 00:00:00 00:00:00 Outreach Emily 98065.1.1 639 s t 3.430.2.7 Hospit a .3.439900 l .8 2022-06-22 2022-06-22 Patient Reyes, 1.2.840.1 [id number] 294911 9724 Methodi 00:00:00 00:00:00 Outreach Emily 54493.1.1 639 s t 3.430.2.7 Hospit a .3.871035 l .8 2022-06-21 2022-06-21 Adrianna Chavez 1.2.840.1 [id number] 465 [id number] Methodi 09:30:00 11:28:[address] 60419.1.[address] 3.430.2.7 Hospit a .3.238324 l .8 2022-06-21 2022-06-21 Adrianna Chavez 1.2.840.1 [id number] 210 8440510 Methodi 09:30:00 11:28:[address]1815.1.[address] 3.430.2.7 Hospit a .3.723878 l .8 2022-06-21 2022-06-21 Travel 1.2.840.1 1.2.379.953 8805 060803 Methodi 00:00:00 00:00:[address] 3.430.2.7 0.2.7.3.698 Ho spita .3.692851 084.8 l .8 2022-06-21 2022-06-21 Travel 1.2.840.1 1.2.241.780 3476 103797 Methodi 00:00:00 00:00:[address] 3.430.2.7 0.2.7.3.698 Ho spita .3.673791 084.8 l .8 2022-06-19 2022-06-19 Travel 1.2.840.1 1.2.869.041 6519 444028 Methodi 00:00:00 00:00:[address] 3.430.2.7 0.2.7.3.698 Ho spita .3.561502 084.8 l .8 2022-06-19 2022-06-19 Travel 1.2.840.1 1.2.739.227 2431 273792 Methodi 00:00:00 00:00:[address] 3.430.2.7 0.2.7.3.698 Ho spita .3.292091 084.8 l .8 2022-06-12 2022-06-12 Refill Galen, 1.2.840.1 [id number] 11914 Methodi 00:00:00 00:00:[address] [place] 3.430.2.7 Hospi ta .3.108749 l .8 2022-06-12 2022-06-12 Refill [place], 1.2.840.1 [id number] 88236 Methodi 00:00:00 00:00:[address] [place] 3.430.2.7 Hospi ta .3.070672 l .8 2022-06-08 2022-06-08 Refill [place], 1.2.840.1 [id number] 73124 Methodi 00:00:00 00:00:[address] [place] 3.430.2.7 Hospi ta .3.523454 l .8 2022-06-08 2022-06-08 Patient Reyes, 1.2.840.1 [id number] 109473 9054 Methodi 00:00:00 00:00:00 Outreach Emily 12879.1.1 763 s t 3.430.2.7 Hospit a .3.156824 l .8 2022-06-08 2022-06-08 Telephone [place], 1.2.840.1 [id number] 241 [id number] Methodi 00:00:00 00:00:[address] [place] 3.430.2.7 Hospi ta .3.266077 l .8 2022-06-08 2022-06-08 Refill Galen, 1.2.840.1 514371890 12513 Methodi 00:00:00 00:00:[address] [place] 3.430.2.7 Hospi ta .3.033775 l .8 2022-06-08 2022-06-08 Refill [place], 1.2.840.1 448098569 98363 46566 Methodi 00:00:00 00:00:[address] [place] 3.430.2.7 Hospi ta .3.840434 l .8 2022-06-08 2022-06-08 Patient Reyes, 1.2.840.1 [id number] 150497 8405 Methodi 00:00:00 00:00:00 Outreach Emily 89347.1.1 763 s t 3.430.2.7 Hospit a .3.687002 l .8 2022-06-08 2022-06-08 Telephone [place], 1.2.840.1 [id number] 368 3487969 Methodi 00:00:00 00:00:[address] [place] 3.430.2.7 Hospi ta .3.226597 l .8 2022-06-08 2022-06-08 Refill [place], 1.2.840.1 675259933 26344 Methodi 00:00:00 00:00:[address] [place] 3.430.2.7 Hospi ta .3.266400 l .8 2022-06-03 2022-06-03 Refill [place], 1.2.840.1 900231871 33121 Methodi 00:00:00 00:00:[address] [place] 3.430.2.7 Hospi ta .3.396000 l .8 2022-06-03 2022-06-03 Refill [place], 1.2.840.1 052395315 15585 Methodi 00:00:00 00:00:[address] [place] 3.430.2.7 Hospi ta .3.072868 l .8 2022-05-25 2022-05-25 Patient Reyes, 1.2.840.1 [id number] 479718 7897 Methodi 00:00:00 00:00:00 Outreach Emily 38584.1.1 043 s t 3.430.2.7 Hospit a .3.820803 l .8 2022-05-25 2022-05-25 Patient Reyes, 1.2.840.1 [id number] 679853 7902 Methodi 00:00:00 00:00:00 Outreach Emily 31568.1.1 043 s t 3.430.2.7 Hospit a .3.442784 l .8 2022-05-11 2022-05-11 Patient Reyes, 1.2.840.1 725221734 733461 3589 Methodi 00:00:00 00:00:00 Outreach Emily 45113.1.1 088 s t 3.430.2.7 Hospit a .3.689757 l .8 2022-05-11 2022-05-11 Patient Reyes, 1.2.840.1 [id number] 031222 8428 Methodi 00:00:00 00:00:00 Outreach Emily 68441.1.1 088 s t 3.430.2.7 Hospit a .3.649831 l .8 2022-05-09 2022-05-09 Telephone [place], 1.2.840.1 [id number] 333 7612901 Methodi 00:00:00 00:00:[address] [place] 3.430.2.7 Hospi ta .3.405956 l .8 2022-05-09 2022-05-09 Telephone [place], 1.2.840.1 [id number] 801 8315177 Methodi 00:00:00 00:00:[address] [place] 3.430.2.7 Hospi ta .3.645256 l .8 2022-05-09 2022-05-09 Telephone [place], 1.2.840.1 [id number] 833 7786562 Methodi 00:00:00 00:00:[address] [place] 3.430.2.7 Hospi ta .3.384905 l .8 2022-05-09 2022-05-09 Telephone [place], 1.2.840.1 [id number] 946 2209216 Methodi 00:00:00 00:00:[address] [place] 3.430.2.7 Hospi ta .3.342147 l .8 2022-05-07 2022-05-07 Refill [place], 1.2.840.1 747953128 51895 87356 Methodi 00:00:00 00:00:[address] [place] 3.430.2.7 Hospi ta .3.324390 l .8 2022-05-07 2022-05-07 Refill [place], 1.2.840.1 300387892 12405 Methodi 00:00:00 00:00:[address] [place] 3.430.2.7 Hospi ta .3.373556 l .8 2022-04-27 2022-04-27 Patient Reyes, 1.2.840.1 [id number] 026288 6071 Methodi 00:00:00 00:00:00 Outreach Emily 96881.1.1 906 s t 3.430.2.7 Hospit a .3.944937 l .8 2022-04-27 2022-04-27 Patient Reyes, 1.2.840.1 [id number] 507689 4619 Methodi 00:00:00 00:00:00 Outreach Emily 19665.1.1 906 s t 3.430.2.7 Hospit a .3.479032 l .8 2022-04-06 2022-04-06 Patient Reyes, 1.2.840.1 092938968 715405 3967 Methodi 00:00:00 00:00:00 Outreach Emily 47314.1.1 988 s t 3.430.2.7 Hospit a .3.097835 l .8 2022-04-06 2022-04-06 Patient Reyes, 1.2.840.1 [id number] 162180 2102 Methodi 00:00:00 00:00:00 Outreach Emily 22128.1.1 988 s t 3.430.2.7 Hospit a .3.703597 l .8 2022-03-16 2022-03-16 Orders Sales, Elidia 1.2.840.1 [id number] 499 4527131 Methodi 00:00:00 00:00:[address] 3.430.2.7 Hospit a .3.414602 l .8 2022-03-16 2022-03-16 Telephone [place], 1.2.840.1 121092632 091 6511331 Methodi 00:00:00 00:00:[address] [place] 3.430.2.7 Hospi ta .3.289236 l .8 2022-03-16 2022-03-16 Patient Reyes, 1.2.840.1 [id number] 904857 5025 Methodi 00:00:00 00:00:00 Outreach Emily 23192.1.1 189 s t 3.430.2.7 Hospit a .3.153546 l .8 2022-03-16 2022-03-16 Orders Sales, Elidia 1.2.840.1 [id number] 403 6731613 Methodi 00:00:00 00:00:[address] 3.430.2.7 Hospit a .3.566402 l .8 2022-03-16 2022-03-16 Telephone [place], 1.2.840.1 567187387 250 [id number] Methodi 00:00:00 00:00:[address] [facility] 3.430.2.7 Hospi ta .3.147315 l .8 2022-03-16 2022-03-16 Patient Reyes, 1.2.840.1 [id number] 335983 4803 Methodi 00:00:00 00:00:00 Outreach Emily 41861.1.1 189 s t 3.430.2.7 Hospit a .3.869844 l .8 2022-03-06 2022-03-06 Telephone [place], 1.2.840.1 [id number] 189 7916403 Methodi 00:00:00 00:00:[address] [place] 3.430.2.7 Hospi ta .3.312802 l .8 2022-03-06 2022-03-06 Telephone Galen, 1.2.840.1 [id number] 234 2729096 Methodi 00:00:00 00:00:[address] [facility] 3.430.2.7 Hospi ta .3.439500 l .8 2022 2022 Patient Reyes, 1.2.840.1 [id number] 090651 0317 Methodi 00:00:00 00:00:00 Outreach Emily 60585.1.1 904 s t 3.430.2.7 Hospit a .3.922510 l .8 2022 2022 Patient Eric, 1.2.840.1 [id number] 636836 8025 Methodi 00:00:00 00:00:00 Outreach Emily 72977.1.1 904 s t 3.430.2.7 Hospit a .3.054473 l .8 2022-03-01 2022-03-01 Office Adrianna Miranda 1.2.840.1 [id number] 502 0134035 Methodi 10:00:00 14:41:30 Visit B. 42680.1.[address] 3.430.2.7 Hospit a .3.772969 l .8 2022-03-01 2022-03-01 Office Adrianna Miranda 1.2.840.1 [id number] 060 5580917 Methodi 10:00:00 14:41:30 Visit B. 75699.1.[address] 3.430.2.7 Hospit a .3.843875 l .8 2022-03-01 2022-03-01 Office Galen 1.2.840.1 [id number] 12818 Methodi 10:00:00 10:05:57 Visit Poli 99890.1.[address] [place] 3.430.2.7 Hospi ta .3.628424 l .8 2022-03-01 2022-03-01 Office Galen, 1.2.840.1 034141325 07068 86445 Methodi 10:00:00 10:05:57 Visit Poli 40502.1.[address] [place] 3.430.2.7 Hospi ta .3.305646 l .8 2022-03-01 2022-03-01 Travel 1.2.840.1 1.2.139.421 7034 616896 Methodi 00:00:00 00:00:[address] 3.430.2.7 0.2.7.3.698 Ho spita .3.755801 084.8 l .8 2022-03-01 2022-03-01 Travel 1.2.840.1 1.2.773.119 2580 381870 Methodi 00:00:00 00:00:[address] 3.430.2.7 0.2.7.3.698 Ho spita .3.330759 084.8 l .8 2022-02-27 2022-02-27 Telephone [place], 1.2.840.1 [id number] 588 7701664 Methodi 00:00:00 00:00:[address] [facility] 3.430.2.7 Hospi ta .3.517352 l .8 2022-02-27 2022-02-27 Telephone [place], 1.2.840.1 825386091 592 1667858 Methodi 00:00:00 00:00:[address] [facility] 3.430.2.7 Hospi ta .3.251020 l .8 2022-02-15 2022-02-15 Patient Reyes, 1.2.840.1 [id number] 530803 6399 Methodi 00:00:00 00:00:00 Outreach Emily 65453.1.1 809 s t 3.430.2.7 Hospit a .3.569713 l .8 2022-02-15 2022-02-15 Patient Reyes, 1.2.840.1 [id number] 014309 3318 Methodi 00:00:00 00:00:00 Outreach Emily 14180.1.1 809 s t 3.430.2.7 Hospit a .3.266776 l .8 2022-02-13 2022-02-13 Telephone Theodore, 1.2.840.1 [id number] 03721686 Methodi 00:00:00 00:00:[address] 3.430.2.7 Hospit a .3.515381 l .8 2022-02-13 2022-02-13 Telephone Theodore, 1.2.840.1 956944426 92380177 Methodi 00:00:00 00:00:[address] 3.430.2.7 Hospit a .3.424303 l .8 2022-02-03 2022-02-03 [facility] Adrianna Miranda 1.2.840.1 [id number] 154 8114805 Methodi 09:20:00 09:20:00 [address] B. 14109.1.[address] 3.430.2.7 Hospit a .3.191270 l .8 2022-02-01 2022-02-01 Patient Eric, 1.2.840.1 [id number] 395776 3086 Methodi 00:00:00 00:00:00 Outreach Emily 73722.1.1 609 s t 3.430.2.7 Hospit a .3.805361 l .8 2022-01-31 2022-01-31 Jenny Aaron, 1.2.840.1 [id number] 81986 07772 Methodi 00:00:00 00:00:[address] [facility] 3.430.2.7 Hospi ta .3.400451 l .8 2022-01-30 2022-01-30 Hospital Adrianna Miranda 1.2.840.1 [id number] 21 [id number] Methodi 07:38:00 13:41:00 Encounter B. 93892.1.[address] 3.430.2.7 Hospit a .3.977183 l .8 2022-01-30 2022-01-30 Surgery Adrianna Miranda 1.2.840.1 [id number] 133 [id number] Methodi 09:00:00 10:40:[address] 3.430.2.7 Hospit a .3.537938 l .8 2022-01-30 2022-01-30 Anesthesia Brannicholas, 1.2.840.1 [id number] 466 4115732 Methodi 08:59:00 10:18:00 Event Abdullahi 94084.1.[address] Robi 3.430.2.7 Hospit a .3.727055 l .8 2022-01-30 2022-01-30 Travel 1.2.840.1 1.2.028.242 2680 460421 Methodi 00:00:00 00:00:[address] 3.430.2.7 0.2.7.3.698 Ho spita .3.082718 084.8 l .8 2022-01-27 2022-01-27 Patient Reyes, 1.2.840.1 [id number] 664233 7000 Methodi 00:00:00 00:00:00 Outreach Emily 16889.1.1 659 s t 3.430.2.7 Hospit a .3.952288 l .8 2022-01-25 2022-01-25 Patient Arnold, 1.2.840.1 [id number] 81610 58827 Methodi 00:00:00 00:00:00 Outreach Kathrin 54921.1.[address] 3.430.2.7 Hospit a .3.472409 l .8 2022-01-16 2022-01-16 Travel 1.2.840.1 1.2.724.588 0803 985712 Methodi 00:00:00 00:00:[address] 3.430.2.7 0.2.7.3.698 Ho spita .3.483998 084.8 l .8 2022-01-13 2022-01-13 Jenny Austinoln, 1.2.840.1 [id number] 40051 76656 Methodi 00:00:00 00:00:[address] [facility] 3.430.2.7 Hospi ta .3.797501 l .8 2022-01-10 2022-01-10 Telephone Theodore, 1.2.840.1 [id number] 21 [id number] Methodi 00:00:00 00:00:[address] 3.430.2.7 Hospit a .3.801247 l .8 2022-01-10 2022-01-10 Orders Theodore, 1.2.840.1 [id number] 2099 876117 Methodi 00:00:00 00:00:00 Only Maryanne 47205.1.[address] 3.430.2.7 Hospit a .3.333081 l .8 2022-01-10 2022-01-10 Prep for Theodore, 1.2.840.1 [id number] 750 [id number] Methodi 00:00:00 00:00:00 Surgery Maryanne 65809.1.[address] 3.430.2.7 Hospit a .3.241215 l .8 2022-01-09 2022-01-09 Telephone Theodore, 1.2.840.1 [id number] Methodi 00:00:00 00:00:[address] 3.430.2.7 Hospit a .3.631042 l .8 2021-12-28 2021-12-28 Outpatient [facility] [id number] [address] [place] 00:00:00 00:00:[address] 2021-12-28 2021-12-28 Travel 1.2.840.1 1.2.906.824 6368 828624 Methodi 00:00:00 00:00:[address] 3.430.2.7 0.2.7.3.698 Ho spita .3.879142 084.8 l .8 2021-12-23 2021-12-23 Refill Galen, 1.2.840.1 [id number] 61097 Methodi 00:00:00 00:00:[address] [place] 3.430.2.7 Hospi ta .3.786467 l .8 2021-12-23 2021-12-23 Orders [place], 1.2.840.1 [id number] 05908 Methodi 00:00:00 00:00:00 Only Poli 58837.1.[address] [facility] 3.430.2.7 Hospi ta .3.256546 l .8 2021-12-21 2021-12-21 Office Adrianna Miranda 1.2.840.1 [id number] 720 [id number] Methodi 08:50:00 11:59:46 Visit B. 59233.1.[address] 3.430.2.7 Hospit a .3.692175 l .8 2021-12-21 2021-12-21 Office Galen, 1.2.840.1 [id number] 03829 Methodi 10:00:00 10:41:23 Visit Poli 11326.1.[address] [place] 3.430.2.7 Hospi ta .3.061135 l .8 2021-12-21 2021-12-21 Travel 1.2.840.1 1.2.756.380 2360 471621 Methodi 00:00:00 00:00:[address] 3.430.2.7 0.2.7.3.698 Ho spita .3.452541 084.8 l .8 2021-12-17 2021-12-17 Refill Galen, 1.2.840.1 [id number] 44232 [facility] 00:00:00 00:00:[address] [place] 3.430.2.7 Hospi ta .3.221207 l .8 2021-12-16 2021-12-16 Telephone Theodore, 1.2.840.1 [id number] 21 [id number] [facility] 00:00:00 00:00:[address] 3.430.2.7 Hospit a .3.883635 l .8 2021-12-14 2021-12-14 Outpatient ADRIANNA MIRANDA [facility] 2099 [id number] [place] 00:00:00 00:00:[address] 2021-12-07 2021-12-07 Office Adrianna Miranda 1.2.840.1 [id number] 433 [id number] [facility] 10:20:00 11:37:02 [address] B[address] 50100.1.[address] 3.430.2.7 Hospit a .3.208771 l .8 2021-12-07 2021-12-07 Travel 1.2.840.1 1.2.868.022 4123 513741 [facility] 00:00:00 00:00:[address] 3.430.2.7 0.2.7.3.698 Ho spita .3.099006 084.8 l .8 2021-11-29 2021-11-29 Travel 1.2.840.1 1.2.587.664 2199 953892 [facility] 00:00:00 00:00:[address] 3.430.2.7 0.2.7.3.698 Ho spita .3.955290 084.8 l .8 2021-11-16 2021-11-16 Refill [place], 1.2.840.1 [id number] 02849 30214 [facility] 00:00:00 00:00:[address] [place] 3.430.2.7 Hospi ta .3.888607 l .8 2021-10-26 2021-10-26 Bj Aaron, 1.2.840.1 [id number] 965 [id number] [facility] 00:00:00 00:00:[address] [place] 3.430.2.7 Hospi ta .3.644844 l .8 2021-10-24 2021-10-24 Telephone [place], 1.2.840.1 [id number] 110 [id number] [facility] 00:00:00 00:00:[address] [place] 3.430.2.7 Hospi ta .3.399858 l .8 2021-10-21 2021-10-21 Telephone [place], 1.2.840.1 [id number] 247 [id number] [facility] 00:00:00 00:00:[address] [place] 3.430.2.7 Hospi ta .3.543325 l .8 2021-10-20 2021-10-20 Telephone [place], 1.2.840.1 [id number] 701 [id number] [facility] 00:00:00 00:00:[address] [place] 3.430.2.7 Hospi ta .3.178073 l .8 2021-10-11 2021-10-11 Telephone [place], 1.2.840.1 [id number] 268 [id number] [facility] 00:00:00 00:00:[address] [place] 3.430.2.7 Hospi ta .3.400145 l .8 2021-10-06 2021-10-06 Office [place], 1.2.840.1 [id number] 75077 12223 Methodi 15:15:00 15:51:36 Visit Poli 24426.1.[address] [place] 3.430.2.7 Hospi ta .3.040572 l .8 2021-10-06 2021-10-06 Travel 1.2.840.1 1.2.933.309 1265 549734 [facility] 00:00:00 00:00:[address] 3.430.2.7 0.2.7.3.698 Ho spita .3.643282 084.8 l .8 2021-10-04 2021-10-04 Telephone [place], 1.2.840.1 [id number] 984 [id number] [facility] 00:00:00 00:00:[address] [place] 3.430.2.7 Hospi ta .3.212765 l .8 2021-10-03 2021-10-03 Telephone Jose, 1.2.840.1 [id number] 466 [id number] [facility] 00:00:00 00:00:[address] 3.430.2.7 Hospit a .3.588203 l .8 2021-09-28 2021-09-28 Office Adrianna Miranda 1.2.840.1 [id number] 520 [id number] [facility]i 14:30:00 16:45:56 Visit B. 03822.1.[address] 3.430.2.7 Hospit a .3.648514 l .8 2021-09-28 2021-09-28 Travel 1.2.840.1 1.2.822.255 7331 971771 [facility] 00:00:00 00:00:[address] 3.430.2.7 0.2.7.3.698 Ho spita .3.934650 084.8 l .8 2021-09-28 2021-09-28 Outpatient ADRIANNA MIRANDA [facility] 2100 [id number] [place] 00:00:00 00:00:[address] 2021-09-19 2021-09-19 Travel 1.2.840.1 1.2.193.442 3071 689394 [facility] 00:00:00 00:00:[address] 3.430.2.7 0.2.7.3.698 Ho spita .3.427743 084.8 l .8 2021-09-12 2021-09-12 Travel 1.2.840.1 1.2.957.208 8955 135763 [facility] 00:00:00 00:00:[address] 3.430.2.7 0.2.7.3.698 Ho spita .3.882994 084.8 l .8 2021-08-15 2021-08-15 Telephone [place], 1.2.840.1 [id number] 450 [id number] [facility] 00:00:00 00:00:[address] [place] 3.430.2.7 Hospi ta .3.850414 l .8 2021-07-04 2021-07-04 Telephone [place], 1.2.840.1 [id number] 961 [id number] [facility]i 00:00:00 00:00:[address] [place] 3.430.2.7 Hospi ta .3.499132 l .8 2021-06-27 2021-06-27 Telephone [place], 1.2.840.1 [id number] 566 [id number] Methodi 00:00:00 00:00:[address] [place] 3.430.2.7 Hospi ta .3.947255 l .8 2021-06-21 2021-06-21 Telephone [place], 1.2.840.1 [id number] 658 [id number] [facility] 00:00:00 00:00:[address] [place] 3.430.2.7 Hospi ta .3.363120 l .8 2021-06-19 2021-06-19 Refill [place], 1.2.840.1 [id number] 45127 Methodi 00:00:00 00:00:[address] [place] 3.430.2.7 Hospi ta .3.877574 l .8 2021-05-31 2021-05-31 Telephone [place], 1.2.840.1 [id number] 162 [id number] [facility]i 00:00:00 00:00:[address] [place] 3.430.2.7 Hospi ta .3.245422 l .8 2021-05-30 2021-05-30 Telephone [place], 1.2.840.1 [id number] 816 [id number] [facility]i 00:00:00 00:00:[address] [place] 3.430.2.7 Hospi ta .3.604804 l .8 2021-04-22 2021-04-22 Telephone [place], 1.2.840.1 [id number] 906 [id number] [facility]i 00:00:00 00:00:[address] [place] 3.430.2.7 Hospi ta .3.624755 l .8 2021-04-15 2021-04-15 Refill [place], 1.2.840.1 [id number] 88823 [facility] 00:00:00 00:00:[address] [place] 3.430.2.7 Hospi ta .3.091895 l .8 2021-04-12 2021-04-12 Telephone [place], 1.2.840.1 [id number] 389 [id number] [facility]i 00:00:00 00:00:[address] [place] 3.430.2.7 Hospi ta .3.137273 l .8 2021-04-04 2021-04-04 Orders [place], 1.2.840.1 [id number] [facility] 00:00:00 00:00:00 Only Poli 25383.1.[address] [place] 3.430.2.7 Hospi ta .3.814259 l .8 2021-04-04 2021-04-04 Orders [place], 1.2.840.1 [id number] Methodi 00:00:00 00:00:00 Only Poli 65821.1.[address] 3.430.2.7 Hospi ta .3.111100 l .8 2021-03-31 2021-03-31 Lab [place], 1.2.840.1 [id number] 21001 44456 Methodi 10:00:00 10:05:[address] [place] 3.430.2.7 Hospi ta .3.104218 l .8 2021-03-31 2021-03-31 Office [place], 1.2.840.1 [id number] 93685 Methodi 09:15:00 09:51:04 Visit Poli 79828.1.[address] [place] 3.430.2.7 Hospi ta .3.145252 l .8 2021-03-31 2021-03-31 Travel 1.2.840.1 1.2.527.203 1119 843340 [facility] 00:00:00 00:00:[address] 3.430.2.7 0.2.7.3.698 Ho spita .3.830639 084.8 l .8 2021-03-30 2021-03-30 Telephone [place], 1.2.840.1 [id number] 785 [id number] Methodi 00:00:00 00:00:[address] [place] 3.430.2.7 Hospi ta .3.843909 l .8 2021-03-29 2021-03-29 Travel 1.2.840.1 1.2.556.873 8344 044354 [facility] 00:00:00 00:00:[address] 3.430.2.7 0.2.7.3.698 Ho spita .3.866719 084.8 l .8 2021 2021 Refill [place], 1.2.840.1 [id number] 58747 [facility]i 00:00:00 00:00:[address] 3.430.2.7 Hospi ta .3.990722 l .8 2021-02-23 2021-02-23 Telephone [place], 1.2.840.1 [id number] Methodi 00:00:00 00:00:[address] 3.430.2.7 Hospi ta .3.446055 l .8 2021-02-07 2021-02-07 Telephone Galen, 1.2.840.1 [id number] Methodi 00:00:00 00:00:[address] 3.430.2.7 Hospi ta .3.131291 l .8 2021-02-02 2021-02-02 Refill Galen, 1.2.840.1 [id number] 38336 Methodi 00:00:00 00:00:[address] 3.430.2.7 Hospi ta .3.476052 l .8 2021-01-31 2021-01-31 Telephone Galen, 1.2.840.1 [id number] Methodi 00:00:00 00:00:[address] 3.430.2.7 Hospi ta .3.540704 l .8 2021-01-14 2021-01-14 Outpatient GALEN [facility] [id number] 8833 [place] 00:00:00 00:00:00 POLI [address] 2021-01-05 2021-01-05 Outpatient [facility] [id number] 5789 [place] 00:00:00 00:00:00 POLI [address] 2020-12-28 2020-12-28 Outpatient [facility] [id number] 2227 [place] 00:00:00 00:00:00 POLI [address] 2020-12-21 2020-12-21 Outpatient [facility] [id number] 1825 [place] 00:00:00 00:00:00 POLI [address] 2020-12-21 2020-12-21 Outpatient [facility] [id number] 0479 [place] 00:00:00 00:00:00 POLI [address] 2020-11-05 2020-11-05 Outpatient [facility] [id number] 8900 [place] 00:00:00 00:00:00 POLI [address] 2020-10-25 2020-10-25 Outpatient [facility] [id number] 6109 [place] 00:00:00 00:00:00 POLI [address] 2020-08-24 2020-08-24 Outpatient MAYRAKATIUSKA, FB [facility] 7503 [facility] 11:43:00 12:55:00 NERISSA 2020-07-15 2020-07-15 Outpatient [facility] [id number] 3086 [place] 00:00:00 00:00:00 POLI [address] 2020-07-15 2020-07-15 Outpatient [facility] [id number] 5914 [place] 00:00:00 00:00:00 POLI 087 Metho di 2020-07-15 2020-07-15 Outpatient G[facility] [id number] 0062 [place] 00:00:00 00:00:00 POLI [address] 2020-07-14 2020-07-14 Outpatient ADRIANNA MIRANDA [facility] [id number] [place] 00:00:00 00:00:[address] 2020-07-14 2020-07-14 Outpatient AUBRIE MIRANDAY [facility] 2100 [id number] [place] 00:00:00 00:00:[address] 2020-03-01 2020-03-01 Outpatient [facility] [id number] 2337 [place] 00:00:00 00:00:00 POLI [address] 2019-12-17 2019-12-17 Outpatient ADRIANNA MIRANDA [facility] 2100 [id number] [place] 00:00:00 00:00:[address] 2019-12-09 2019-12-09 Outpatient [facility] [id number] 0964 [place] 00:00:00 00:00:00 POLI [address] 2019-12-09 2019-12-09 Outpatient [facility] [id number] 2530 [place] 00:00:00 00:00:00 POLI [address] 2019-09-25 2019-09-25 Discharged GRECIA BILL AL06 [id number] [facility] 00:55:00 13:28:[address] [facility]un [address] st (obs) [facility]IVE [facility] 2019-09-25 2019-09-25 Discharged [place] [id number] [facility] 00:55:00 00:55:00 Inpatient KARI 45 (obs) [facility] 2019-08-26 2019-08-26 Outpatient [facility] [id number] 1484 [place] 00:00:00 00:00:00 POLI [address] 2019-07-29 2019-07-29 Outpatient KARLA SchroederCL OUTD [id number] 2000 [facility] 12:10:00 12:10:00 Robi 89 [facility] 2019-07-29 2019-07-29 Outpatient EL KARLA SchroederWU 3DAY [id number] [facility] 00:00:00 00:00:00 Robi 92 [facility] 2019-07-19 2019-07-19 Outpatient KARLA WilsonWU SURG [id number] 1706 [facility] 12:00:00 12:00:00 Salim 28 [facility] 2019-05-21 2019-05-21 Outpatient [facility] [id number] 0194 [place] 00:00:00 00:00:00 POLI [address] 2019-04-21 2019-04-21 Outpatient MHFB MHFB 7502 [facility] 11:41:00 11:41:00 Results Test Description Test Time Test Comments Results Result Comments Source FREE T4 2022-08-16 05:47:50 Test Item Value Reference Range Interpretation Comme nts FREE T4 (test code = 1.45 See_Comment [Autom ated message] The system [id number]) which generated this result transmitted ref erence range: 0.78 - 2.20 ng/dL:. The reference range was not u sed to interpret this result as normal/abnormal. Lab Interpretation (test code = Normal 03231-9) [facility]. METABOLIC PANEL (07086)2022-08-14 00:35:15 Test Item Value Reference Range Interpretation Comments NA (test code = 138 mmol/L 135-145 7518875623) K (test code = 4.2 mmol/L 3.5-5.0 7241359618) CL (test code = 101 mmol/L 98-108 1995411550) CO2 TOTAL (test code = 30 mmol/L 23-31 8478791284) AGAP (test code = 7 2-16 9416023415) BUN (test code = 36 mg/dL 7-23 H 9157253059) GLUCOSE (test code = 82 mg/dL 70-110 2783268070) CREATININE (test code = 1.27 mg/dL 0.50-1.04 H 1540217361) TOTAL BILI (test code = 0.9 mg/dL 0.1-1.7 8756885969) CALCIUM (test code = 10.6 mg/dL 8.6-10.6 5915538356) T PROTEIN (test code = 6.5 g/dL 6.3-8.2 1679603148) ALBUMIN (test code = 4.1 g/dL 3.5-5.0 7147001503) ALK PHOS (test code = 37 U/L 34-122 2918276530) ALTv (test code = 22 U/L 5-35 1742-6) AST(SGOT) (test code = 33 U/L 13-40 8390736941) eGFR (test code = 39.9 mL/min/1.73m2 4073535809) BANDAR (test code = BANDAR) Association of [...] tests). Lab Interpretation Abnormal (test code = 81923-4) [facility] [id number] 00:01:31 Test Item Value Reference Range Interpretation Comments TROPONIN I (test code = 0.023 ng/mL <=0.034 6517287443) BANDAR (test code = BANDAR) Reference (Normal) [...] biotin. Lab Interpretation Normal (test code = 42630-8) [facility] [id number]-[id number] 00:00:16 Test Item Value Reference Range Interpretation Comments NT-proBNP (test code = 408 pg/mL <=450 5283246976) BANDAR (test code = BANDAR) Biotin has been reported to cause a negative bias, interpret results relative to patient's use of biotin. Lab Interpretation (test Normal code = 49780-1) [facility] HospitalSALICYLATE2023-05-21 23:50:54 SALICYLATE<10mg/L08/13/2022 6:50 PM [facility] Range: ? Analgesic and Antipyretic Use ? 20- 100 mg/L ? ? Anti-Inflammatory Use ? 100-250 mg/L Toxic Range: ? Greater than 300 mg/LUnThe Hospitals of [facility] CampusETHANOL2023-05-21 23:50:49ALCOHOL<10mg/dL08/13/2022 6:50 PM [facility]ANMT[facility]<10 Lyplozaz25-077 Toxic>100 Depression of LINE LEAD>400 Fatalities ReportedUnThe Hospitals of [facility] CampusCB WITH DIFF 2022-08-13 23:44:13 Test Item Value Reference Range Interpretation Comments WBC (test code = 5.56 See_Comment [Automated 6990-2) message] The sy stem which generated this result transmitted reference range : 4.30 - 11.10 10*3/?L. The reference range was not used to interpret this result as normal/abnormal . RBC (test code = 4.70 See_Comment [Automated 419-8) message] The sy stem which generated this [...] RDW-SD (test code = 48.9 fL 39.0-49.9 84607-4) RDW-CV (test code = 14.1 % 12.0-15.5 788-0) PLT (test code = 298 See_Comment [Automated 807-3) message] The sy stem which generated this result transmitted reference range : 166 - 358 10*3/ ?L. The reference r john was not used to interpret this result as normal/abnormal . MPV (test code = 10.5 fL 9.5-12.9 71394-8) NRBC/100 WBC (test 0.0 See_Comment [Automat ed code = 4185199552) message] The system which generated this result transmitted reference range : 0.0 - 10.0 /100 WBCs. The refer ence range was not u sed to interpret th is result as normal/abnormal . NRBC x10^3 (test code See_Comment [Auto mated = 4840500500) message] The s ystem which generated this result transmitted reference range : 10*3/?L. The reference range was not used to interpret this result as normal/abnormal . GRAN MAT (NEUT) % 58.6 % (test code = 770-8) IMM GRAN % (test code 0.40 % = 6043386264) LYMPH % (test code = 26.4 % 736-9) MONO % (test code = 8.5 % 5905-5) EOS % (test code = 5.0 % 713-8) BASO % (test code = 1.1 % 706-2) GRAN MAT x10^3(ANC) 3.26 10*3/uL 1.88-7.09 (test code = 5538918541) IMM GRAN x10^3 (test 0.00-0.06 code = 7659804331) LYMPH x10^3 (test code 1.47 10*3/uL 1.32-3.29 = 731-0) MONO x10^3 (test code 0.47 10*3/uL 0.33-0.92 = 742-7) EOS x10^3 (test code = 0.28 10*3/uL 0.03-0.39 711-2) BASO x10^3 (test code 0.06 10*3/uL 0.01-0.07 = 704-7) Lab Interpretation Abnormal (test code = 86291-4) [facility] qffvqrc7970-30-06 16:16:00 Test Item Value Reference Range Interpretation Comments POC glucose (test 90 mg/dL 65-99 [facility] roberto: Green code = 37984-8) [employer] ID: [id number] able: [facility] Notified RNChar table: No Action Needed [facility] dmjyjya5323-63-70 16:16:00 Test Item Value Reference Range Interpretation Comments POC glucose (test 90 mg/dL 65-99 [facility] roberto: Green code = 86167-8) [employer] ID: [id number] able: [facility] Notified RNChar table: No Action Needed [facility] wtjrzhk0575-24-55 16:16:00 Test Item Value Reference Range Interpretation Comments POC glucose (test 90 mg/dL 65-99 [facility] roberto: Green code = 40603-6) [employer] ID: [id number] able: [facility] Notified RNChar table: No Action Needed [facility] oiouycn0491-29-41 16:16:00 Test Item Value Reference Range Interpretation Comments POC glucose (test 90 mg/dL 65-99 [facility] roberto: Green code = 47265-1) [employer] ID: [id number] able: [facility] Notified RNChar table: No Action Needed [facility] zdronhp8630-05-63 16:16:00 Test Item Value Reference Range Interpretation Comments POC glucose (test 90 mg/dL 65-99 [facility] roberto: Green code = 51732-3) [employer] ID: [id number] able: [facility] Notified RNChar table: No Action Needed [facility] tdzfm2574-76-01 13:06:00 Test Item Value Reference Interpretation Comments [...] qi/gfr%5Fcalcul ator [Automated mess age] The system OKKAM generated this result transmit danielle reference range : > OR = 60 mL/min/1.73m2. The reference range was not used to interpret this result as normal/abnormal . BUN/creatinine NOT APPLICABLE See_Comment [Automated message] ratio (test code = [employer] which 3097-3) generated this result transmit danielle reference range : 6 - 22 (calc). The reference range was not used to interpret this result as normal/abnormal . Sodium (test code = 142 mmol/L 845-986 8283-2) Potassium (test 3.8 mmol/L 3.5-5.3 code = 2823-3) Chloride (test code 100 mmol/L 98-110 = 2075-0) CO2 (test code = 32 mmol/L 20-32 8-9) Calcium (test code 10.4 mg/dL 8.6-10.4 = 95326-3) Protein (test code 7.4 g/dL 6.1-8.1 = 2885-2) Albumin, S (test 4.8 g/dL 3.6-5.1 code = 1751-7) Globulin, total See_Comment [Automated message] (test code = The system MyLife h 08582-7) generated this result transmit danielle reference range : 1.9 - 3.7 g/dL (merissa c). The reference r john was not used to interpret this result as normal/abnormal . Albumin/globulin See_Comment [Automated message] ratio (test code = [employer] which 1759-0) generated this result transmit danielle [...] RAC) Organization Information: Site ID: RGA Name: [facility] Address: [address] [place] [address] Director: Robi Rodas Lab Interpretation Abnormal (test code = 39937-2) [facility] hhlvi3814-[facility]-55 13:06:00 Test Item Value Reference Range Interpretation [...] calculated (test <100 Desira ble code = 92499-8) range <100 m g/dL for primary prevention; <70 mg/dL for patients with C HD or diabetic patients with > or = 2 CHD risk factors. LDL-C is now calculated using the Geoff-Jaya calculation, which is a validated novel method providin g better accuracy than the Friedewald equation in the estimation of LDL-C. Geoff S S et al. MARY. 2013;310(19): 7493-5794 (http://educati on .QuestDiagnosti AutoeBid .com/faq/MCG433 ) Cholesterol/HDL See_Comment [Automated ratio (test code = message] The 9830-1) system which generated this result transmitted reference range : <5.0 (calc). Th e reference range was not used to interpret this result as normal/abnormal . Non-HDL cholesterol See_Comment H For rolly ents with (test code = diabetes plus 1 80543-2) major ASCVD ris k factor, treatin g [...] = Performing RAC) Organization Information: Site ID: [facility] Name: GPal n Lab Address: [address] [place] [address] Director: Robi Rodas Lab Interpretation Abnormal (test code = 17327-5) [facility] [id number] 13:06:00 Test Item Value Reference Range Interpretation [...] specif ic patient populat ions. Standards of De dical Care in Diabetes(ADA). [Automated mess age] The system OKKAM generated this result transmitted ref erence range: <5.7 % o f total Hgb. The reference range was not used to int erpret this result as normal/abnormal . BANDAR (test code = FASTING:YES BANDAR) FASTING: YES RAC (test code = Performing RAC) Organization Information: Site ID: [facility] Name: GPal n Lab Address: [address] [place] [address] Director: Robi Rodas [facility] stimulating vezktsw5579-99-17 13:06:00 Test Item Value Reference Range Interpretation Comments TSH (test code = See_Comment L [Automated 1358-3) message] The system which generated this result transmitted reference range : 0.40 - 4.50 mIU/L. The reference range was not used to interpret this result as normal/abnormal . BANDAR (test code = FASTING:YES BANDAR) FASTING: YES RAC (test code = Performing RAC) Organization Information: Site ID: [facility] Name: GPal n Lab Address: [address] [place] [address] Director: Robi Rodas Lab Interpretation Abnormal (test code = 12124-8) [facility] with platelet and mcuewxfrzhsx9606-75-92 13:06:00 Test Item Value Reference Range Interpretation Comments WBC (test code = See_Comment [Automated 4690-2) message] The system which generated this result [...] RAC) Organization Information: Site ID: RGA [facility]: [facility] Address: [address] [place] [address] Director: Robi Rodas Lab Interpretation Abnormal (test code = 07838-9) [facility] HospitalUrinalysis, automated with qjfwrtrmjt3857-42-74 13:06:00 Test Item Value Reference Range Interpretation Comments Color, UA (test code YELLOW YELLOW = 5778-6) Appearance (test CLEAR CLEAR code = 5767-9) Specific gravity, 1.001-1.035 urine (test code = 5811-5) pH, urine (test code 5.0-8.0 = 5803-2) Glucose, urine (test NEGATIVE NEGATIVE code = 80704-0) Bilirubin, UA (test NEGATIVE NEGATIVE code = 5770-3) Ketones, UA (test NEGATIVE NEGATIVE code = 2514-8) Occult blood, urine NEGATIVE NEGATIVE (test code = 5794-3) Protein, UA (test TRACE NEGATIVE A code = 26639-9) Nitrite, UA (test NEGATIVE NEGATIVE code = 5802-4) Leukocyte esterase, TRACE NEGATIVE A UA (test code = 5799-2) WBC, UA (test code = NONE SEEN See_Comment [Autom ated 0821-4) message] The system which generated this result transmitted reference range : < OR = 5 /HPF. The reference range was not used to interpr et this result as normal/abnormal . RBC, UA (test code = NONE SEEN See_Comment [Autom ated 14182-2) message] The system which generated this result transmitted reference range : < OR = 2 /HPF. The reference range was not used to interpr et this result as normal/abnormal . Squamous epithelial 0-5 See_Comment [Automa danielle cells, UA (test code message ] The = 92663-4) system which generated this result transmitted reference [...] RAC) Organization Information: Site ID: RGA [facility] Address: [address] [place] [address] Director: Robi Rodas Lab Interpretation Abnormal (test code = 13929-0) [facility]it[facility] D 25 hydroxy gwonz2921-38-31 13:06:00 Test Item Value Reference Range Interpretation [...] please refer to http://educatio n.Q uestDiagnostics .co m/faq/RJM972 (T his link is being provided for informational/e sunil ational purpose s only.) BANDAR (test code = FASTING:YES FASTING: BANDAR) YES RAC (test code = Performing RAC) Organization Information: Site ID: SAL Name: [facility] Address: [address] [place] [address] Director: Robi Rodas [facility] [id number] 13:06:00 Test Item Value Reference Interpretation Comments [...] qi/gfr%5Fcalcul ator [Automated mess age] The system OKKAM generated this result transmit danielle reference range [...] . Sodium (test code = 142 mmol/L 445-830 3021-2) Potassium (test 3.8 mmol/L 3.5-5.3 code = 2823-3) Chloride (test code 100 mmol/L 98-110 = 2075-0) CO2 (test code = 32 mmol/L 20-32 8-9) Calcium (test code 10.4 mg/dL 8.6-10.4 = 19710-7) Protein (test code 7.4 g/dL 6.1-8.1 = 2885-2) Albumin, S (test 4.8 g/dL 3.6-5.1 code = 1751-7) Globulin, total 2.6 See_Comment [Automated message] (test code = [place]ic h 31716-5) generated this result transmit danielle reference range [...] 1920-8) ALT (test code = 17 U/L 6- 1742-6) BANDAR (test code = FASTING:YES BANDAR) FASTING: YES RAC (test code = Performing RAC) Organization Information: Site ID: RGA [facility] Address: [address] [place] [address] Director: Robi Rodas Lab Interpretation Abnormal (test code = 71648-1) [facility] ligwe8940-27-94 13:06:00 Test Item Value Reference Range Interpretation [...] calculated (test <100 Desira ble code = 03881-3) range <100 m g/dL for primary prevention; <70 mg/dL for patients with C HD or diabetic patients with > or = 2 CHD risk factors. LDL-C is now calculated using the Pradeep calculation, which is a validated novel method providin g better accuracy than the Friedewald equation in the estimation of LDL-C. Geoff Elizabeth S et al. MARY. 2013;310(19): 7019-2273 (http://educati on .Galeno Plus .com/faq/PAQ749 ) Cholesterol/HDL 3.3 See_Comment [Automated ratio (test code = message] The 9830-1) system which generated this result transmitted reference range : <5.0 (calc). Th e reference range was not used to interpret this result as normal/abnormal . Non-HDL cholesterol 140 See_Comment H For rolly ents with (test code = diabetes plus 1 69874-1) major ASCVD ris k factor, treatin g [...] RAC) Organization Information: Site ID: RGA [facility] Address: [address] [place] [address] Director: Robi Rodas Lab Interpretation Abnormal (test code = 82421-8) [facility] [id number] 13:06:00 Test Item Value Reference Range Interpretation [...] specif ic patient populat ions. Standards of De dical Care in Diabetes(ADA). [Automated mess age] The system whic h generated this result transmitted ref erence range: <5.7 % o f total Hgb. The reference range was not used to int erpret this result as normal/abnormal . BANDAR (test code = FASTING:YES BANDAR) FASTING: YES RAC (test code = Performing RAC) Organization Information: Site ID: [facility] Name: GPal n Lab Address: [address] [place] [address] Director: Robi Rooneyridge [facility] HospitalThyroid stimulating vupejom1379-51-46 13:06:00 Test Item Value Reference Range Interpretation Comments TSH (test code = 0.17 See_Comment L [Automated 7846-3) message] The system which generated this result transmitted reference range : 0.40 - 4.50 mIU/L. The reference range was not used to interpret this result as normal/abnormal . BANDAR (test code = FASTING:YES BANDAR) FASTING: YES RAC (test code = Performing RAC) Organization Information: Site ID: [facility] Name: GPal n Lab Address: [address] [place] [address] Director: Robi Rodas Lab Interpretation Abnormal (test code = 88484-3) [facility] with platelet and fuixvmldxzei4368-37-88 13:06:00 Test Item Value Reference Range Interpretation Comments WBC (test code = 10.1 See_Comment [Automated 0790-2) message] The system which generated this result transmitted reference range : 3.8 - 10.8 Thousand/uL. Th e reference range was not used to interpret this result as normal/abnormal . RBC (test code = 4.24 See_Comment [Automated 689-8) message] The system which generated this result [...] RAC) Organization Information: Site ID: RGA Name: [facility] Address: [address] [place] [address] Director: Robi Rodas Lab Interpretation Abnormal (test code = 50033-4) [facility] HospitalUrinalysis, automated with kztmyyxbou7588-61-31 13:06:00 Test Item Value Reference Range Interpretation Comments Color, UA (test code YELLOW YELLOW = 5778-6) Appearance (test CLEAR CLEAR code = 5767-9) Specific gravity, 1.013 1.001-1.035 urine (test code = 5811-5) pH, urine (test code 7.5 5.0-8.0 = 5803-2) Glucose, urine (test NEGATIVE NEGATIVE code = 87509-3) Bilirubin, UA (test NEGATIVE NEGATIVE code = 5770-3) Ketones, UA (test NEGATIVE NEGATIVE code = 2514-8) Occult blood, urine NEGATIVE NEGATIVE (test code = 5794-3) Protein, UA (test TRACE NEGATIVE A code = 60824-3) Nitrite, UA (test NEGATIVE NEGATIVE code = [...] code = NONE SEEN See_Comment [Autom ated 23574-7) message] The system which generated this result transmitted reference range : < OR = 2 /HPF. The reference range was not used to interpr et this result as normal/abnormal . Squamous epithelial 0-5 See_Comment [Automa danielle cells, UA (test code message ] The = 95845-4) system which generated this result transmitted reference [...] RAC) Organization Information: Site ID: SAL [facility]: [facility] Address: [address] [place] [address] Director: Robi Rodas Lab Interpretation Abnormal (test code = 27407-6) [facility] D 25 hydroxy asnxv2392-88-14 13:06:00 Test Item Value Reference Range Interpretation Comments Vitamin D, 71 ng/mL 30-100 Vitamin D Statu s 25-hydroxy (test 25-OH Vitam in D: code = 1988-05) Deficiency: <20 ng/mLInsufficie ncy : 20 - [...] please refer to http://educatio n.Q uestDiagnostics .co m/faq/NVO431 (T his link is being provided for informational/e sunil ational purpose s only.) BANDAR (test code = FASTING:YES FASTING: BANDAR) YES RAC (test code = Performing RAC) Organization Information: Site ID: SAL Name: [facility] Address: [address] [place] [address] Director: Robi Rodas [facility]Com[facility] lpnsj2172-34-60 13:06:00 Test Item Value Reference Interpretation Comments [...] Creatinine or Cystatin Cresul t, go to [email or web address].Aquiris raymond.o rg/professional s/kdo qi/gfr%5Fcalcul ator [Automated mess age] The system OKKAM generated this result transmit danielle reference range : > OR = 60 mL/min/1.73m2. The reference range was not used to interpret this result as normal/abnormal . BUN/creatinine NOT APPLICABLE See_Comment [Automated message] ratio (test code = The [employer] which 3097-3) generated this result transmit danielle reference range : 6 - 22 (calc). The reference range was not used to interpret this result as normal/abnormal . Sodium (test code = 142 mmol/L 831-821 3006-2) Potassium (test 3.8 mmol/L 3.5-5.3 code = 2823-3) Chloride (test code 100 mmol/L 98-110 = 2075-0) CO2 (test code = 32 mmol/L 20-32 2027-) Calcium (test code 10.4 mg/dL 8.6-10.4 = 41334-5) Protein (test code 7.4 g/dL 6.1-8.1 = 2885-2) Albumin, S (test 4.8 g/dL 3.6-5.1 code = 1751-7) Globulin, total 2.6 See_Comment [Automated message] (test code = The system OKKAM 45455-3) generated this result transmit danielle reference range : 1.9 - 3.7 g/dL (merissa c). The reference r john was not used to interpret this result as normal/abnormal . Albumin/globulin 1.8 See_Comment [Automated message] ratio (test code = The TextMaster which 1759-0) generated this result transmit danielle reference range : 1.0 - 2.5 (calc). T he reference range was not used to interpret this result as normal/abnormal . Total bilirubin 0.6 mg/dL 0.2-1.2 (test code = 1975-2) Alkaline 43 U/L 37-153 phosphatase (test code = 6768-6) AST (test code = 22 U/L 1920-8) ALT (test code = 17 U/L 09-21 1742-6) BANDAR (test code = FASTING:YES BANDAR) FASTING: YES RAC (test code = Performing RAC) Organization Information: Site ID: RGA Name: [facility] Address: [address] [place] [address] Director: Robi Rodas Lab Interpretation Abnormal (test code = 62175-8) [facility] [id number] 13:06:00 Test Item Value Reference Range Interpretation [...] calculated (test <100 Desira ble code = 06559-9) range <100 m g/dL for primary prevention; <70 mg/dL for patients with C HD or diabetic patients with > or = 2 CHD risk factors. LDL-C is now calculated using the Geoff-Lake calculation, which is a validated novel method providin g better accuracy than the Friedewald equation in the estimation of LDL-C. Geoff S S et al. MARY. 2013;310(19): 1196-2892 (http://educati on .Symptom.lyDiagnosti AutoeBid .com/faq/XHL579 ) Cholesterol/HDL 3.3 See_Comment [Automated ratio (test code = message] The 9830-1) system which generated this result transmitted reference range : <5.0 (calc). Th e reference range was not used to interpret this result as normal/abnormal . Non-HDL cholesterol 140 See_Comment H For rolly ents with (test code = diabetes plus 1 17795-4) major ASCVD ris k factor, treatin g [...] RAC) Organization Information: Site ID: JACKA Name: [facility] Address: [address] [place] [address] Director: Robi Rodas Lab Interpretation Abnormal (test code = 74388-1) [facility] [id number] 13:06:00 Test Item Value Reference Range Interpretation [...] specif ic patient populat ions. Standards of De dical Care in Diabetes(ADA). [Automated mess age] The system whic h generated this result transmitted ref erence range: <5.7 % o f total Hgb. The reference range was not used to int erpret this result as normal/abnormal . BANDAR (test code = FASTING:YES BANDAR) FASTING: YES RAC (test code = Performing RAC) Organization Information: Site ID: A Name: [facility] Address: [address] [place] [phone] Director: Robi Rodas [facility] stimulating difohah6329-84-07 13:06:00 Test Item Value Reference Range Interpretation [...] RAC) Organization Information: Site ID: RGA [facility]: [facility] Address: [address] [place] [address] Director: Robi Rodas Lab Interpretation Abnormal (test code = 11924-5) [facility] with platelet and hozkjslpcbhj2548-10-79 13:06:00 Test Item Value Reference Range Interpretation Comments WBC (test code = 10.1 See_Comment [Automated 8690-2) message] The system which generated this result transmitted reference range : 3.8 - 10.8 Thousand/uL. Th e reference range was not used to interpret this result as normal/abnormal . RBC (test code = 4.24 See_Comment [Automated 429-8) message] The system which generated this result [...] [Automated absolute (test code message] The = 861-8) system which generated this result transmitted reference [...] RAC) Organization Information: Site ID: RGA [facility] Address: [address] [place] [phone] Director: Robi Rodas Lab Interpretation Abnormal (test code = 68056-0) [facility] automated with ufnqtwgjks7827-81-75 13:06:00 Test Item Value Reference Range Interpretation Comments Color, UA (test code YELLOW YELLOW = 5778-6) Appearance (test CLEAR CLEAR code = 5767-9) Specific gravity, 1.013 1.001-1.035 urine (test code = 5811-5) pH, urine (test code 7.5 5.0-8.0 = 5803-2) Glucose, urine (test NEGATIVE NEGATIVE code = 52377-7) Bilirubin, UA (test NEGATIVE NEGATIVE code = 5770-3) Ketones, UA (test NEGATIVE NEGATIVE code = 2374-8) Occult blood, urine NEGATIVE NEGATIVE (test code = 5794-3) Protein, UA (test TRACE NEGATIVE A code = 95374-8) Nitrite, UA (test NEGATIVE NEGATIVE code = [...] code = NONE SEEN See_Comment [Autom ated 70731-6) message] The system which generated this result transmitted reference range : < OR = 2 /HPF. The reference range was not used to interpr et this result as normal/abnormal . Squamous epithelial 0-5 See_Comment [Automa danielle cells, UA (test code message ] The = 84265-1) system which generated this result transmitted reference [...] RAC) Organization Information: Site ID: RGA Name: [facility] Address: [address] [place] [address] Director: Robi Rodas Lab Interpretation Abnormal (test code = 47013-8) [facility] HospitalVitamin D 25 hydroxy oweof3775-53-75 13:06:00 Test Item Value Reference Range Interpretation [...] please refer to http://educatio n.Q uestDiagnostics .co m/faq/IFJ431 (T his link is being provided for informational/e sunil ational purpose s only.) BANDAR (test code = FASTING:YES FASTING: BANDAR) YES RAC (test code = Performing RAC) Organization Information: Site ID: RGA [facility] Address: [address] [place] [phone] Director: Robi Rodas [facility] HospitalComprehensive metabolic [id number] 13:06:00 Test Item Value Reference Interpretation Comments [...] qi/gfr%5Fcalcul ator [Automated mess age] The system [employer] Pharm[employer]sic h generated this result transmit danielle reference [...] . Sodium (test code = 142 mmol/L 159-429 6074-2) Potassium (test 3.8 mmol/L 3.5-5.3 code = 2823-3) Chloride (test code 100 mmol/L 98-110 = 5-0) CO2 (test code = 32 mmol/L 20-32 2027-11) Calcium (test code 10.4 mg/dL 8.6-10.4 = 87227-3) Protein (test code 7.4 g/dL 6.1-8.1 = 2885-2) Albumin, S (test 4.8 g/dL 3.6-5.1 code = 1751-7) Globulin, total 2.6 See_Comment [Automated message] (test code = [place] [address]-7) generated this result transmit danielle reference range [...] AST (test code = 22 U/L 10-35 1919-8) ALT (test code = 17 U/L 6-29 1742-6) BANDAR (test code = FASTING:YES BANDAR) FASTING: YES RAC (test code = Performing RAC) Organization Information: Site ID: RGA [facility]: [facility] Address: [address] [place] [phone] Director: Robi Rodas Lab Interpretation Abnormal (test code = 30978-3) [facility] yjujt6815-06-70 13:06:00 Test Item Value Reference Range Interpretation [...] calculated (test <100 Desira ble code = 83987-9) range <100 m g/dL for primary prevention; <70 mg/dL for patients with C HD or diabetic patients with > or = 2 CHD risk factors. LDL-C is now calculated using the Geoff-Jaya calculation, which is a validated novel method providin g better accuracy than the Friedewald equation in the estimation of LDL-C. Geoff S S et al. MARY. 2013;310(19): 1919-0401 (http://educati on .[employer] .com/faq/XCM408 ) Cholesterol/HDL 3.3 See_Comment [Automated ratio (test code = message] The 9830-1Kensho system which generated this result transmitted reference range : <5.0 (calc). Th e reference range was not used to interpret this result as normal/abnormal . Non-HDL cholesterol 140 See_Comment H For rolly ents with (test code = diabetes plus 1 04859-6) major ASCVD ris k factor, treatin g [...] RAC) Organization Information: Site ID: RGA Name: [facility] Address: [address] [place] [address] Director: Robi Rodas Lab Interpretation Abnormal (test code = 88148-2) [facility] [id number] 13:06:00 Test Item Value Reference Range Interpretation [...] specif ic patient populat ions. Standards of De dical Care in Diabetes(ADA). [Automated mess age] The system whic h generated this result transmitted ref erence range: <5.7 % o f total Hgb. The reference range was not used to int erpret this result as normal/abnormal . BANDAR (test code = FASTING:YES BANDAR) FASTING: YES RAC (test code = Performing RAC) Organization Information: Site ID: [facility] Name: [facility] Address: [address] [place] [address] Director: Robi Rodas [facility] HospitalThyroid stimulating scnelvc5069-52-39 13:06:00 Test Item Value Reference Range Interpretation Comments TSH (test code = 0.17 See_Comment L [Automated 2581-3) message] The system which generated this result transmitted reference range : 0.40 - 4.50 mIU/L. The reference range was not used to interpret this result as normal/abnormal . BANDAR (test code = FASTING:YES BANDAR) FASTING: YES RAC (test code = Performing RAC) Organization Information: Site ID: [facility] Name: [facility] Lab Address: [address] [place] [address] Director: Robi Rodas Lab Interpretation Abnormal (test code = 36758-1) [facility] with platelet and mapbnhxldkvs3944-84-14 13:06:00 Test Item Value Reference Range Interpretation Comments WBC (test code = 10.1 See_Comment [Automated 5473-2) message] The system which generated this result transmitted reference range : 3.8 - 10.8 Thousand/uL. Th e reference range was not used to interpret this result as normal/abnormal . RBC (test code = 4.24 See_Comment [Automated 859-8) message] The system which generated this result [...] RAC) Organization Information: Site ID: RGA Name: [facility] Address: [address] [place] [phone] Director: Robi Rodas Lab Interpretation Abnormal (test code = 59346-9) [facility] HospitalUrinalysis, automated with zdkvrmsorg7329-28-93 13:06:00 Test Item Value Reference Range Interpretation Comments Color, UA (test code YELLOW YELLOW = 5778-6) Appearance (test CLEAR CLEAR code = 5767-9) Specific gravity, 1.013 1.001-1.035 urine (test code = 5811-5) pH, urine (test code 7.5 5.0-8.0 = 5803-2) Glucose, urine (test NEGATIVE NEGATIVE code = 09022-3) Bilirubin, UA (test NEGATIVE NEGATIVE code = 5770-3) Ketones, UA (test NEGATIVE NEGATIVE code = 2514-8) Occult blood, urine NEGATIVE NEGATIVE (test code = 5794-3) Protein, UA (test TRACE NEGATIVE A code = 61234-2) Nitrite, UA (test NEGATIVE NEGATIVE code = [...] code = NONE SEEN See_Comment [Autom ated 17215-7) message] The system which generated this result transmitted reference range : < OR = 2 /HPF. The reference range was not used to interpr et this result as normal/abnormal . Squamous epithelial 0-5 See_Comment [Automa danielle cells, UA (test code message ] The = 14898-9) system which generated this result transmitted reference [...] RAC) Organization Information: Site ID: RGA [facility] Address: [address] [place] [phone] Director: Robi Rodas Lab Interpretation Abnormal (test code = 26302-1) [facility] HospitalVitamin D 25 hydroxy fifsx8385-58-13 13:06:00 Test Item Value Reference Range Interpretation [...] please refer to http://educatio n.Q uestDiagnostics .co m/faq/XZP573 (T his link is being provided for informational/e sunil ational purpose s only.) BANDAR (test code = FASTING:YES FASTING: BANDAR) YES RAC (test code = Performing RAC) Organization Information: Site ID: RGA [facility]: [facility] Address: [address] [place] [phone] Director: Robi Rodas [facility] HospitalHSV 1 and 2 specific Ab [id number] 00:13:00 Test Item Value Reference Interpretation Comments Range HSV 1 IgG (test index H code = 5206-8) HSV 2 IgG (test index H Index code = 5209-2) Interpretatio n ----- <0.90 Negative 0.90-1 .09 Equivocal >1.09 Positive This a ssay utilizes recomb inant type-specific antigensto differentiate H SV-1 from HSV-2 [...] RAC) Organization Information: Site ID: IG Name: [facility] Address: [address] [place] [address] Director: Dr. Robi Rodas Lab Interpretation Abnormal (test code = 70111-7) [facility] HospitalTroponin I melgmvezy4101-91-13 12:00:00 Test Item Value Reference Range Interpretation Comments Troponin I (test code = 75021-3) 0.389 ng/mL 0.00-0.045 [facility] HealthTroponin I zppqoainx3027-72-82 12:00:00 Test Item Value Reference Range Interpretation Comments Troponin I (test code = 29757-5) 0.389 ng/mL Sodium measurement (moles/volume)2019-09-25 04:50:00 Test Item Value Reference Range Interpretation Comments Sodium Level (test code = 05485-6) 139 mmol/L 131-143 [facility] HealthSerum or plasma [...] Dioxide Level (test code = 27 mmol/L -32 2027-9) [facility] HealthSerum or plasma anion xzx2038-14-83 04:50:00 Test Item Value Reference Range Interpretation Comments Anion Gap (test code = 76104-4) 7.0 mmol/L 3.0-11.0 [facility] HealthSerum or plasma urea nitrogen measurement (mass/volume)2019-09-25 04:50:00 Test Item Value Reference Range Interpretation Comments Blood Urea Nitrogen (test code = 23.0 mg/dL 7.0-18.0 3094-0) [facility] HealthSerum or plasma creatinine measurement (mass/volume)2019-09-25 04:50:00 Test Item Value Reference Range Interpretation Comments Creatinine (test code = 2160-0) 0.958 mg/dL 0.550-1.02 [facility] HealthGFR estimate [id number] 04:50:00 Test Item Value Reference Range Interpretation Comments Estimat Glomerular Filtration Rate 56 >60 (test code = 14393-5) [facility] HealthSerum or plasma glucose measurement (mass/volume)2019-09-25 04:50:00 Test Item Value Reference Range Interpretation Comments Glucose Level (test code = 2345-7) 102 mg/dL 74-106 [facility] HealthSerum or plasma calcium measurement (mass/volume)2019-09-25 04:50:00 Test Item Value Reference Range Interpretation Comments Calcium Level (test code = 83086-7) 9.5 mg/dL 8.5-10.1 [facility] HealthSerum or plasma creatine kinase MB measurement (mass/volume) 2019-09-25 04:50:00 Test Item Value Reference Range Interpretation Comments Creatine Kinase MB (test code = 3.3 ng/mL 0.3-3.6 67248-1) [facility] HealthSerum or plasma C reactive protein [...] erythrocyte mean corpuscular hemoglobin concentration (MCHC) measurement ([id number] 04:50:00 Test Item Value Reference Range Interpretation Comments Mean Corpuscular Hemoglobin Concent 32.0 % 32.0-36.0 (test code = 786-4) [facility] HealthAutomated erythrocyte distribution width hliqg0370-56-88 04:50:00 Test Item Value Reference Range Interpretation Comments Red Cell Distribution Width (test code 13.0 % 0.0-15.5 = 788-0) [facility] HealthAutomated blood platelet count (count/volume)2019-09-25 04:50:00 Test Item Value Reference Range Interpretation Comments Platelet Count (test code = 287 10*3/uL 130-400 777-3) [facility] HealthAutomated blood platelet mean volume muzsgoqikxo7674-31-27 04:50:00 Test Item Value Reference Range Interpretation Comments Mean Platelet Volume (test code = 10.2 fL 9.2-12.2 62525-5) [facility] HealthAutomated blood neutrophil count as percentage of total grxqzjkhjc5915-19-77 04:50:00 Test Item Value Reference Range Interpretation Comments Neutrophils (%) (Auto) (test code = 67.2 % 50-80 770-8) [facility] HealthAutomated blood immature granulocyte count as percentage of total vviiycgwqk0703-92-89 04:50:00 Test Item Value Reference Range Interpretation Comments Immature Granulocyte % (Auto) (test 0.50 % 0.0-0.43 code = 01891-2) [facility] HealthAutomated blood lymphocyte count as percentage of total xcmslzvstt7475-96-59 04:50:00 Test Item Value Reference Range Interpretation Comments Lymphocytes (%) (Auto) (test code = 20.4 % 20.0-45.0 736-9) [facility] HealthAutomated blood monocyte count as percentage of total leukocytes 2019-09-25 04:50:00 Test Item Value Reference Range Interpretation Comments Monocytes (%) (Auto) (test code = 8.0 % 2-10 5905-5) [facility] HealthAutomated blood eosinophil count as percentage of total gunwpagugn0774-49-04 04:50:00 Test Item Value Reference Range Interpretation Comments Eosinophils (%) (Auto) (test code = 3.1 % 0-6 713-8) [facility] HealthAutomated blood basophil count as percentage of total leukocytes 2019-09-25 04:50:00 Test Item Value Reference Range Interpretation Comments Basophils (%) (Auto) (test code = 0.8 % 0-3 706-2) [facility] HealthAutomated blood nucleated erythrocyte count as percentage of total sjzjuummci6468-89-00 04:50:00 Test Item Value Reference Range Interpretation Comments Nucleated Red Blood Cells % (test code 0.0 % 0-0.2 = 39127-6) [facility] HealthAutomated blood neutrophil count (number/volume)2019-09-25 04:50:00 Test Item Value Reference Range Interpretation Comments Neutrophils # (Auto) (test code = 5.2 10*3/uL 1.4-7.0 751-8) [facility] HealthAutomated blood immature granulocyte count as percentage of total xugfuzbsqm9702-57-38 04:50:00 Test Item Value Reference Range Interpretation Comments Immature Granulocyte # (Auto) (test 0.0400 0.0-0.0310 code = 42855-2) [facility] HealthAutomated blood lymphocyte count (number/volume)2019-09-25 04:50:00 Test Item Value Reference Range Interpretation Comments Lymphocytes # (Auto) (test code = 1.6 10*3/uL 1.2-4.0 731-0) [facility] (number/volume)2019-09-25 04:50:00 Test Item Value Reference Range Interpretation Comments Monocytes # (Auto) (test code = 0.6 10*3/uL 0.1-0.8 742-7) [facility] HealthAutomated blood eosinophil tnzbr9586-88-51 04:50:00 Test Item Value Reference Range Interpretation Comments Eosinophils # (Auto) (test code = 0.2 10*3/uL 0.0-0.6 711-2) [facility]Autom[facility] blood basophil count (number/volume)2019-09-25 04:50:00 Test Item Value Reference Range Interpretation Comments Basophils # (Auto) (test code = 0.1 10*3/uL 0.0-0.3 704-7) [facility] HospitalAutomated blood leukocyte count corrected for nucleated hhfylrgkjhcf3601-81-60 04:50:00 Test Item Value Reference Range Interpretation Comments Nucleated Red Blood Cells # (test code 0.000 0-0.012 = 60169-0) [facility] erythrocyte sedimentation rate (ESR) measurement by photometricmethod (length/e8215-02-62 04:50:00 Test Item Value Reference Range Interpretation Comments Erythrocyte Sedimentation Rate (test 7 mm/h 0-20 code = 05105-6) [facility] HospitalAutomated erythrocyte mean corpuscular hemoglobin concentration (MCHC) measurement (z0161-23-15 04:50:00 Test Item Value Reference Range Interpretation Comments Mean Corpuscular Hemoglobin Concent 32.0 % (test code = 786-4) Automated erythrocyte distribution width nlbdi7933-88-06 04:50:00 Test Item Value Reference Range Interpretation Comments Red Cell Distribution Width (test code 13.0 % = 788-0) Automated blood platelet count (count/volume)2019-09-25 04:50:00 Test Item Value Reference Range Interpretation Comments Platelet Count (test code = 287 10*3/uL 777-3) Automated blood platelet mean volume yzpibcqkdug7951-26-84 04:50:00 Test Item Value Reference Range Interpretation Comments Mean Platelet Volume (test code = 10.2 fL 49351-6) Automated blood neutrophil count as percentage of total ksgwgjowis0480-15-30 04:50:00 Test Item Value Reference Range Interpretation Comments Neutrophils (%) (Auto) (test code = 67.2 % 770-8) Automated blood immature granulocyte count as percentage of total leukocytes 2019-09-25 04:50:00 Test Item Value Reference Range Interpretation Comments Immature Granulocyte % (Auto) (test 0.50 % code = 72822-7) Automated blood lymphocyte count as percentage of total itjmtsnknz4059-21-81 04:50:00 Test Item Value Reference Range Interpretation Comments Lymphocytes (%) (Auto) (test code = 20.4 % 736-9) Automated blood monocyte count as percentage of total ykzokmovww8677-96-49 04:50:00 Test Item Value Reference Range Interpretation Comments Monocytes (%) (Auto) (test code = 8.0 % 5905-5) Automated blood eosinophil count as percentage of total aehlownsqo4713-71-52 04:50:00 Test Item Value Reference Range Interpretation Comments Eosinophils (%) (Auto) (test code = 3.1 % 713-8) Automated blood basophil count as percentage of total euvnlyxnkp8434-20-93 04:50:00 Test Item Value Reference Range Interpretation Comments Basophils (%) (Auto) (test code = 0.8 % 706-2) Automated blood nucleated erythrocyte count as percentage of total leukocytes 2019-09-25 04:50:00 Test Item Value Reference Range Interpretation Comments Nucleated Red Blood Cells % (test code 0.0 % = 13326-7) Automated blood neutrophil count (number/volume)2019-09-25 04:50:00 Test Item Value Reference Range Interpretation Comments Neutrophils # (Auto) (test code = 5.2 10*3/uL 751-8) Automated blood immature granulocyte count as percentage of total leukocytes 2019-09-25 04:50:00 Test Item Value Reference Range Interpretation Comments Immature Granulocyte # (Auto) (test 0.0400 code = 15325-0) Automated blood lymphocyte count (number/volume)2019-09-25 04:50:00 Test Item Value Reference Range Interpretation Comments Lymphocytes # (Auto) (test code = 1.6 10*3/uL 731-0) Blood monocytes automated count (number/volume)2019-09-25 04:50:00 Test Item Value Reference Range Interpretation Comments Monocytes # (Auto) (test code = 0.6 10*3/uL 742-7) Automated blood eosinophil upqvo5686-60-57 04:50:00 Test Item Value Reference Range Interpretation Comments Eosinophils # (Auto) (test code = 0.2 10*3/uL 711-2) Automated blood basophil count (number/volume)2019-09-25 04:50:00 Test Item Value Reference Range Interpretation Comments Basophils # (Auto) (test code = 0.1 10*3/uL 704-7) Automated blood leukocyte count corrected for nucleated trkkencjaybd0969-72-51 04:50:00 Test Item Value Reference Range Interpretation Comments Nucleated Red Blood Cells # (test code 0.000 = 32772-3) Blood erythrocyte sedimentation rate (ESR) measurement by photometricmethod (length/c9927-58-57 04:50:00 Test Item Value Reference Range Interpretation Comments Erythrocyte Sedimentation Rate (test 7 mm/h code = 20132-7) Sodium measurement (moles/volume)2019-09-25 04:50:00 Test Item Value Reference Range Interpretation Comments Sodium Level (test code = 85127-8) 139 mmol/L Serum or plasma potassium measurement [...] 27 mmol/L 8-9) Serum or plasma anion wba4774-21-25 04:50:00 Test Item Value Reference Range Interpretation Comments Anion Gap (test code = 83796-6) 7.0 mmol/L Serum or plasma urea nitrogen measurement (mass/volume)2019-09-25 04:50:00 Test Item Value Reference Range Interpretation Comments Blood Urea Nitrogen (test code = 23.0 mg/dL 3094-0) Serum or plasma creatinine measurement (mass/volume)2019-09-25 04:50:00 Test Item Value Reference Range Interpretation Comments Creatinine (test code = 2160-0) 0.958 mg/dL GFR estimate IJFY8347-48-30 04:50:00 Test Item Value Reference Range Interpretation Comments Estimat Glomerular Filtration Rate 56 (test code = 63136-9) Serum or plasma glucose measurement (mass/volume)2019-09-25 04:50:00 Test Item Value Reference Range Interpretation Comments Glucose Level (test code = 2345-7) 102 mg/dL Serum or plasma calcium measurement (mass/volume)2019-09-25 04:50:00 Test Item Value Reference Range Interpretation Comments Calcium Level (test code = 97390-9) 9.5 mg/dL Serum or plasma creatine kinase MB measurement (mass/volume)2019-09-25 04:50:00 Test Item Value Reference Range Interpretation Comments Creatine Kinase MB (test code = 3.3 ng/mL 40210-9) Serum or plasma C reactive protein measurement [...] % Automated erythrocyte mean corpuscular volume (MCV) fcxahyrvnml4403-03-47 04:50:00 Test Item Value Reference Range Interpretation Comments Mean Corpuscular Volume (test code = 91.4 fL 787-2) Automated erythrocyte mean corpuscular hemoglobin (mass per erythrocyte) 2019-09-25 04:50:00 Test Item Value Reference Range Interpretation Comments Mean Corpuscular Hemoglobin (test 29.3 pg code = 785-6) Troponin I mzvdsnbiy2961-54-03 22:42:00 Test Item Value Reference Range Interpretation Comments Troponin I (test code = 22503-0) 0.059 ng/mL 0.00-0.045 [facility] Health[facility]um or plasma brain natriuretic peptide (BNP) measurement 2019-09-24 22:42:00 Test Item Value Reference Range Interpretation Comments B-Type Natriuretic Peptide (test 40 pg/mL 0.0-100 code = 59177-3) [facility] HealthSerum or plasma thyrotropin measurement by detection limit <=0.005 miu/l (units/yhibp2747-08-22 22:42:00 Test Item Value Reference Range Interpretation Comments Thyroid Stimulating Hormone 7.670 u[iU]/mL 0.358-3.74 (TSH) (test code = 78907-3) [facility] HealthSerum or plasma procalcitonin measurement (mass/volume)2019-09-24 22:42:00 Test Item Value Reference Range Interpretation Comments Procalcitonin (test code = < 0.05 ng/mL 0.0-0.5 89467-4) [facility]rombin vjvz7444-29-87 22:42:00 Test Item Value Reference Range Interpretation Comments Prothrombin Time (test code = 5964-2) 11.4 s 10.2-12.9 [facility] Plate[facility] poor plasma by Coagulation ayktj1844-88-67 22:42:00 Test Item Value Reference Range Interpretation Comments Prothromb Time International Ratio 1.0 {INR} 0.9-1.1 (test code = 6301-6) [facility] ([facility] in platelet poor plasma 2019-09-24 22:42:00 Test Item Value Reference Range Interpretation Comments Activated Partial Thromboplast Time 31.7 s 25.1-36.5 (test code = 06578-2) [facility]Fibr[facility] D[facility] FEU ygvr7462-16-64 22:42:00 Test Item Value Reference Range Interpretation Comments D-Dimer (test code = 64434-9) 262 ng/mL{FEU} 0.00-500 [facility] Health[facility]um or plasma magnesium measurement (mass/volume)2019-09-24 22:42:00 Test Item Value Reference Range Interpretation Comments Magnesium Level (test code = 2.3 mg/dL 1.6-2.6 52819-3) [facility] HealthSerum or plasma total bilirubin measurement [...] (test code = 53 U/L 45-117 6768-6) [facility]Lactate ser/dmjp7037-94-76 22:42:00 Test Item Value Reference Range Interpretation Comments Lactic Acid Level (test code = 1.0 mmol/L 0.4-1.9 2524-7) [facility] HealthSerum or plasma creatine kinase measurement (enzymatic activity/volume)2019-09-24 22:42:00 Test Item Value Reference Range Interpretation Comments Total Creatine Kinase (test code = 413 U/L 26-192 2157-6) [facility] total creatine kinase/creatine kinase MB isoenzyme activity gzxmk4000-00-14 22:42:00 Test Item Value Reference Range Interpretation Comments Creatine Kinase MB Relative Index (test 0.5 % 0-4 code = 2158-4) [facility] blood prothrombin vuqh1326-12-75 22:42:00 Test Item Value Reference Range Interpretation Comments Prothrombin Time (test code = 5964-2) 11.4 s INR in Platelet poor plasma by Coagulation ucgwh1331-35-19 22:42:00 Test Item Value Reference Range Interpretation Comments Prothromb Time International Ratio 1.0 {INR} (test code = 6301-6) Partial thromboplastin time (PTT) in platelet poor txixyg0772-52-15 22:42:00 Test Item Value Reference Range Interpretation Comments Activated Partial Thromboplast Time 31.7 s (test code = 07048-1) Fibrin D-dimer FEU imns7720-00-15 22:42:00 Test Item Value Reference Range Interpretation Comments D-Dimer (test code = 96467-6) 262 ng/mL{FEU} Serum or plasma magnesium measurement (mass/volume)2019-09-24 22:42:00 Test Item Value Reference Range Interpretation Comments Magnesium Level (test code = 2.3 mg/dL 43849-5) Serum or plasma total bilirubin measurement (mass/volume)2019-09-24 [...] (test code = 53 U/L 6768-6) Lactate ser/skvk0459-48-40 22:42:00 Test Item Value Reference Range Interpretation Comments Lactic Acid Level (test code = 1.0 mmol/L 2524-7) Serum or plasma creatine kinase measurement (enzymatic activity/volume) 2019-09-24 22:42:00 Test Item Value Reference Range Interpretation Comments Total Creatine Kinase (test code = 413 U/L 2157-6) Serum or plasma total creatine kinase/creatine kinase MB isoenzyme activity jjsrx0323-28-25 22:42:00 Test Item Value Reference Range Interpretation Comments Creatine Kinase MB Relative Index (test 0.5 % code = 2158-4) Troponin I nmwftofsy8538-79-04 22:42:00 Test Item Value Reference Range Interpretation Comments Troponin I (test code = 23104-7) 0.059 ng/mL Serum or plasma brain natriuretic peptide (BNP) zyjllzbcpes4718-55-60 22:42:00 Test Item Value Reference Range Interpretation Comments B-Type Natriuretic Peptide (test 40 pg/mL code = 97848-7) Serum or plasma thyrotropin measurement by detection limit <=0.005 miu/l (units/gwwmr3581-05-82 22:42:00 Test Item Value Reference Range Interpretation Comments Thyroid Stimulating Hormone 7.670 u[iU]/mL (TSH) (test code = 63878-5) Serum or plasma procalcitonin measurement (mass/volume)2019-09-24 22:42:00 Test Item Value Reference Range Interpretation Comments Procalcitonin (test code = < 0.05 ng/mL 56545-3) Bacterial urine frteeds9883-73-27 22:33:00 Test Item Value Reference Range Interpretation Comments Urine Culture (test No growth in 18-24 code = 630-4) hours [facility] HealthAutomated urine color ydpyxpkdxzscm4510-27-99 22:33:00 Test Item Value Reference Range Interpretation Comments Urine Color (test code = 65780-5) Yellow Yellow [facility] HealthClarity in Urine by Refractometry vaybolrhp9831-26-11 22:33:00 Test Item Value Reference Range Interpretation Comments Urine Appearance (test code = 10606-4) Clear Clear [facility] HealthUrine pH measurement by test lvucz0072-83-30 22:33:00 Test Item Value Reference Range Interpretation Comments Urine pH (test code = 5803-2) 7.5 [pH] 5.0-8.0 [facility] HealthAutomated urine specific gravity by bwrqnlzwialut1545-44-57 22:33:00 Test Item Value Reference Range Interpretation Comments Urine Specific [place] (test code = 1.009 1.005-1.030 74786-0) [facility]Automated urine protein pbwahzjktrj3618-67-03 22:33:00 Test Item Value Reference Range Interpretation Comments Urine Protein (test code = Negative mg/dL Negative 98754210) [facility]Automated urine glucose pbqeloymk6055-19-23 22:33:00 Test Item Value Reference Range Interpretation Comments Urine Glucose (UA) (test code Negative mg/dL Negative = 30980-9) [facility] HealthUrine ketones detection by automated test eelxj7564-02-03 22:33:00 Test Item Value Reference Range Interpretation Comments Urine Ketones (test code = Negative mg/dL Negative 41046-1) [facility] HealthUrine erythrocytes detection by automated fzjgey6387-03-47 22:33:00 Test Item Value Reference Range Interpretation Comments Urine Occult Blood (test code = Negative Negative 05808-1) [facility]ated urine nitrite rstrrdbtmnm6622-56-89 22:33:00 Test Item Value Reference Range Interpretation Comments Urine Nitrite (test code = 05579-3) Negative Negative [facility] HealthUrine total bilirubin detection by automated test pndgg7800-99-23 22:33:00 Test Item Value Reference Range Interpretation Comments Urine Bilirubin (test code = Negative Negative 73154-8) [facility] HealthAutomated urine urobilinogen snwzxhkupss5247-53-40 22:33:00 Test Item Value Reference Range Interpretation Comments Urine Urobilinogen (test code = Normal mg/dL Normal 92431744) [facility] HealthUrine leukocytes detection by automated etpuxz8053-99-70 22:33:00 Test Item Value Reference Range Interpretation Comments Urine Leukocyte Esterase (test 250 {Marianna}/uL Negative code = 14527-9) [facility] HealthAutomated erythrocytes count in urine sediment (number/area) 2019-09-24 22:33:00 Test Item Value Reference Range Interpretation Comments Urine RBC (test code = 17615-4) 0-2 /[HPF] 0-2 [facility] HealthAutomated leukocytes count in urine sediment (number/area) 2019-09-24 22:33:00 Test Item Value Reference Range Interpretation Comments Urine WBC (test code = 33338-0) 10-20 /[HPF] 0-2 [facility] HealthAutomated squamous epithelial cells count in urine sediment (number/area)2019-09-24 22:33:00 Test Item Value Reference Range Interpretation Comments Urine Squamous Rare /[LPF] See_Comment [Automated m essage] Epithelial Cells The system which (test code = 38346-9) genera danielle this result transmitted ref erence range: 0 - 1+. The reference range was not used to int erpret this result as normal/abnormal . [facility] HealthAutomated urine sediment crystal count (number/area)2019-09-24 22:33:00 Test Item Value Reference Range Interpretation Comments Urine Other Crystals (test +/- Rare /[LPF] None Seen code = 68793-7) [facility]Automated bacteria count in urine sediment (number/area) 2019-09-24 22:33:00 Test Item Value Reference Range Interpretation Comments Urine Bacteria (test None /[HPF] See_Comment [Autom ated message] code = 76650-2) The system w [facility] generated this result transmitted ref erence range: 0-+/-. T he reference range was not used to int erpret this result as normal/abnormal . [facility] HealthAutomated mucus count in urine sediment (number/area)2019-09-24 22:33:00 Test Item Value Reference Range Interpretation Comments Urine Mucus (test +/- /[LPF] See_Comment [Automate d message] The code = 45983-2) system which generated this result tra nsmitted reference range : 0-1+. The reference r john was not used to int erpret this result as normal/abnormal . [facility] HealthAutomated urine yeast count (number/area)2019-09-24 22:33:00 Test Item Value Reference Range Interpretation Comments Urine Yeast (Budding) (test code Rare /[HPF] None Seen = 14050-9) [facility] comment [id number] 22:33:00 Test Item Value Reference Range Interpretation Comments Urine Culture Indicated Yes, Criteria Met (test code = 8264-4) [facility] fethtwehcgrhr3717-40-90 22:33:00 Test Item Value Reference Range Interpretation Comments Urine Color (test code = 85865-9) Yellow Clarity in Urine by Refractometry tqniyjeha0922-67-35 22:33:00 Test Item Value Reference Range Interpretation Comments Urine Appearance (test code = 00963-9) Clear Urine pH measurement by test trzqc4456-00-52 22:33:00 Test Item Value Reference Range Interpretation Comments Urine pH (test code = 5803-2) 7.5 [pH] Automated urine specific gravity by loadwmmpyjxhd3086-30-77 22:33:00 Test Item Value Reference Range Interpretation Comments Urine Specific [place] (test code = 1.009 08886-6) Automated urine protein jytvtbxvdnb9049-45-37 22:33:00 Test Item Value Reference Range Interpretation Comments Urine Protein (test code = Negative mg/dL 58886527) Automated urine glucose litwjtlej2327-74-55 22:33:00 Test Item Value Reference Range Interpretation Comments Urine Glucose (UA) (test code Negative mg/dL = 90987-1) Urine ketones detection by automated test xcjdo6760-67-04 22:33:00 Test Item Value Reference Range Interpretation Comments Urine Ketones (test code = Negative mg/dL 84449-8) Urine erythrocytes detection by automated vhggie2015-20-92 22:33:00 Test Item Value Reference Range Interpretation Comments Urine Occult Blood (test code = Negative 50484-8) Automated urine nitrite rfpsrabsbpc8345-21-36 22:33:00 Test Item Value Reference Range Interpretation Comments Urine Nitrite (test code = 88347-0) Negative Urine total bilirubin detection by automated test ponop5849-72-68 22:33:00 Test Item Value Reference Range Interpretation Comments Urine Bilirubin (test code = Negative 57260-4) Automated urine urobilinogen krgvudgtgjm0263-05-36 22:33:00 Test Item Value Reference Range Interpretation Comments Urine Urobilinogen (test code = Normal mg/dL 68418451) Urine leukocytes detection by automated xwgdrw9993-60-40 22:33:00 Test Item Value Reference Range Interpretation Comments Urine Leukocyte Esterase (test 250 {Marianna}/uL code = 72296-7) Automated erythrocytes count in urine sediment (number/area)2019-09-24 22:33:00 Test Item Value Reference Range Interpretation Comments Urine RBC (test code = 31651-2) 0-2 /[HPF] Automated leukocytes count in urine sediment (number/area)2019-09-24 22:33:00 Test Item Value Reference Range Interpretation Comments Urine WBC (test code = 46028-2) 10-20 /[HPF] Automated squamous epithelial cells count in urine sediment (number/area) 2019-09-24 22:33:00 Test Item Value Reference Range Interpretation Comments Urine Squamous Epithelial Cells Rare /[LPF] (test code = 75690-7) Automated urine sediment crystal count (number/area)2019-09-24 22:33:00 Test Item Value Reference Range Interpretation Comments Urine Other Crystals (test +/- Rare /[LPF] code = 31765-9) Automated bacteria count in urine sediment (number/area)2019-09-24 22:33:00 Test Item Value Reference Range Interpretation Comments Urine Bacteria (test code = None /[HPF] 05827-5) Automated mucus count in urine sediment (number/area)2019-09-24 22:33:00 Test Item Value Reference Range Interpretation Comments Urine Mucus (test code = 33596-1) +/- /[LPF] Automated urine yeast count (number/area)2019-09-24 22:33:00 Test Item Value Reference Range Interpretation Comments Urine Yeast (Budding) (test code Rare /[HPF] = 16714-0) Service comment 22:33:00 Test Item Value Reference Range Interpretation Comments Urine Culture Indicated Yes, Criteria Met (test code = 8264-4) Bacterial urine yxbcdto1972-66-12 22:33:00 Test Item Value Reference Range Interpretation Comments Urine Culture (test No growth in 18-24 code = 630-4) hours BASIC METABOLIC [id number] 02:06:00 Test Item Value Reference Range Interpretation [...] CALCIUM (test code = MG/DL 8.7-9.7 CA) [id number] 02:06:00 Test Item Value Reference Range Interpretation Comments MAGNESIUM (test code = MAG) MG/DL 1.6-2.3 BASIC METABOLIC [id number] 02:06:00 Test Item Value Reference Range Interpretation [...] CALCIUM (test code = MG/DL 8.7-9.7 CA) [id number] 02:06:00 Test Item Value Reference Range Interpretation Comments MAGNESIUM (test code = MAG) MG/DL 1.6-2.3 BASIC METABOLIC [id number] 02:06:00 Test Item Value Reference Range Interpretation [...] code = 10.3 MG/DL 8.4-10.2 H CA) [id number] 02:06:00 Test Item Value Reference Range Interpretation Comments MAGNESIUM (test code = MAG) MG/DL 1.6-2.3 BASIC METABOLIC [id number] 02:06:00 Test Item Value Reference Range Interpretation [...] code = 10.3 MG/DL 8.4-10.2 H CA) [id number] 02:06:00 Test Item Value Reference Range Interpretation Comments MAGNESIUM (test code = MAG) 1.7 MG/DL 1.6-2.3 BASIC METABOLIC [id number] 02:03:00 Test Item Value Reference Range Interpretation [...] CALCIUM (test code = CA) MG/DL 8.7-9.7 [id number] 02:03:00 Test Item Value Reference Range Interpretation Comments MAGNESIUM (test code = MAG) MG/DL 1.6-2.3 CBC W/AUTO [id number] 01:51:00 Test Item Value Reference Range Interpretation [...] K/mm3 0.0-0.1 N NRBC#) - XR CHEST [id number] 11:06:00 Patient Name: DEBI GARRETT Unit No: [id number] EXAMS: CPT CODE: [id number] XR CHEST 1V 36664 Site ID: [id number] HISTORY: Pneumothorax COMPARISON: Chest x-ray August 08, 2019 FINDINGS: Less than 5% res idual left apical pneumothorax, platelike left mid lung atelectasis. Otherwise the lungs are clear. The heart and pulmonary vasculature is normal. Left subclavian line terminates appropriately. Osseousstructures are unremarkable. IMPRESSION: Less than 5% residual left apical pneumothorax, platelike left mid lung atelectasis at 1106 Reportedand signed by: Laith Salcido MD CC: Poli Epps Technologist: Willie Santana (RT) Transcrpt Date/Tm/Trnsp: 08/10/2019 (1106) [email or web address] Orig Print D/T: S: 08/10/2019 (1110) [facility] NAME: DEBI GARRETT [address] PHYS: [place] [address] : 1935 AGE: 84 SEX: F LOC: Z.SI05 A PHONE #: [phone] EXAM DATE: 08/10/2019 STATUS: ADM IN FAX #: [phone] RADIOLOGY NO: PAGE 1 Signed ReportBASIC METABOLIC [id number] 05:07:00 Test Item Value Reference Range Interpretation [...] code = 10.6 MG/DL 8.4-10.2 H CA) [id number] 05:07:00 Test Item Value Reference Range Interpretation Comments PHOSPHOROUS (test code = PHOS) 3.3 MG/DL 2.5-4.5 N [id number] 05:07:00 Test Item Value Reference Range Interpretation Comments MAGNESIUM (test code = MAG) 2.2 MG/DL 1.6-2.3 BASIC METABOLIC [id number] 05:04:00 Test Item Value Reference Range Interpretation [...] CALCIUM (test code = MG/DL 8.7-9.7 CA) [id number] 05:04:00 Test Item Value Reference Range Interpretation Comments PHOSPHOROUS (test code = PHOS) MG/DL 2.5-4.5 [id number] 05:04:00 Test Item Value Reference Range Interpretation Comments MAGNESIUM (test code = MAG) MG/DL 1.6-2.3 BASIC METABOLIC [id number] 05:01:00 Test Item Value Reference Range Interpretation [...] CALCIUM (test code = CA) MG/DL 8.7-9.7 [id number] 05:01:00 Test Item Value Reference Range Interpretation Comments PHOSPHOROUS (test code = PHOS) MG/DL 2.5-4.5 [id number] 05:01:00 Test Item Value Reference Range Interpretation Comments MAGNESIUM (test code = MAG) MG/DL 1.6-2.3 CBC W/AUTO [id number] 04:48:00 Test Item Value Reference Range Interpretation [...] 0.00 K/mm3 0.0-0.1 N NRBC#) BASIC METABOLIC [id number] 23:31:00 Test Item Value Reference Range Interpretation [...] code = 10.1 MG/DL 8.4-10.2 N CA) [id number] 23:31:00 Test Item Value Reference Range Interpretation Comments MAGNESIUM (test code = MAG) 1.8 MG/DL 1.6-2.3 N BASIC METABOLIC [id number] 23:28:00 Test Item Value Reference Range Interpretation [...] CALCIUM (test code = MG/DL 8.7-9.7 CA) [id number] 23:28:00 Test Item Value Reference Range Interpretation Comments MAGNESIUM (test code = MAG) MG/DL 1.6-2.3 BASIC METABOLIC [id number] 23:25:00 Test Item Value Reference Range Interpretation [...] CALCIUM (test code = CA) MG/DL 8.7-9.7 [id number] 23:25:00 Test Item Value Reference Range Interpretation Comments MAGNESIUM (test code = MAG) MG/DL 1.6-2.3 BASIC METABOLIC [id number] 22:21:00 Test Item Value Reference Range Interpretation [...] code = 9.3 MG/DL 8.4-10.2 N CA) [id number] 22:21:00 Test Item Value Reference Range Interpretation Comments MAGNESIUM (test code = MAG) 1.6 MG/DL 1.6-2.3 N BASIC METABOLIC [id number] 21:36:00 Test Item Value Reference Range Interpretation [...] code = CA) 9.3 MG/DL 8.4-10.2 N [id number] 21:36:00 Test Item Value Reference Range Interpretation Comments MAGNESIUM (test code = MAG) 1.6 MG/DL 1.6-2.3 N BASIC METABOLIC [id number] 21:35:00 Test Item Value Reference Range Interpretation [...] CALCIUM (test code = CA) MG/DL 8.7-9.7 [id number] 21:35:00 Test Item Value Reference Range Interpretation Comments MAGNESIUM (test code = MAG) MG/DL 1.6-2.3 CBC W/AUTO [id number] 21:25:00 Test Item Value Reference Range Interpretation [...] 0.0-0.1 N NRBC#) - MRI BRAIN W/O [id number] 11:43:00 Patient Name: DEBI GARRETT Unit No: [id number] EXAMS: CPT CODE: [id number] MRI BRAIN W/O CONTRAST 28990 CLINICAL INFORMATION: Ataxia. Right internal carotid artery [...] VaneV Orig Print D/T: S: 08/09/2019 (1146) [facility] NAME: DEBI GARRETT [address] PHYS: [place] [address] : 1935 AGE: 84 SEX: F LOC: Z.SI05 A PHONE #: [phone] EXAM DATE: 08/09/2019 STATUS: ADM IN FAX #: [phone] RADIOLOGY NO: PAGE 1 Signed ReportURINALYSIS [id number] 22:47:00 Test Item Value Reference Range Interpretation [...] UACULT) Criteria SOURCE OF URINE: STRAIGHT CATHETERURINALYSIS [id number] 22:45:00 Test Item Value Reference Range Interpretation [...] UACULT) SOURCE OF URINE: STRAIGHT CATHETERBASIC METABOLIC [id number] 13:12:00 Test Item Value Reference Range Interpretation [...] code = 9.8 MG/DL 8.4-10.2 N CA) [id number] 13:12:00 Test Item Value Reference Range Interpretation Comments PHOSPHOROUS (test code = PHOS) 2.6 MG/DL 2.5-4.5 N [id number] 13:12:00 Test Item Value Reference Range Interpretation Comments MAGNESIUM (test code = MAG) 2.3 MG/DL 1.6-2.3 N T3,T4 [id number] 13:12:00 Test Item Value Reference Range Interpretation Comments T3 UPTAKE (test code = T3UP) 33.3 % UP 23.5-40.5 N T4 (THYROXINE) (test code = T4) 13.10 UG/DL 5.53-11.0 H T7 (FREE THYROXINE INDEX) (test 4.4 1.2-4.3 H code = T7) THYROID STIMULATING [id number] 13:12:00 Test Item Value Reference Range Interpretation Comments THYROID STIMULATING 3.590 MIU/L 0.465-4.68 N Please b e aware that HORMONE (test code = bias re sults for TSH TSH) may occur forpa tient who are taking Biotin suppleme nts. T4 [id number] 12:43:00 Test Item Value Reference Range Interpretation Comments T4 FREE (test code = T4F) 2.1 NG/DL 0.78-2.19 N BASIC METABOLIC [id number] 12:41:00 Test Item Value Reference Range Interpretation [...] code = 9.8 MG/DL 8.4-10.2 N CA) [id number] 12:41:00 Test Item Value Reference Range Interpretation Comments PHOSPHOROUS (test code = PHOS) 2.6 MG/DL 2.5-4.5 N [id number] 12:41:00 Test Item Value Reference Range Interpretation Comments MAGNESIUM (test code = MAG) 2.3 MG/DL 1.6-2.3 N T3,T4 [id number] 12:41:00 Test Item Value Reference Range Interpretation Comments T3 UPTAKE (test code = T3UP) 33.3 % UP 23.5-40.5 N T4 (THYROXINE) (test code = T4) 13.10 UG/DL 5.53-11.0 H T7 (FREE THYROXINE INDEX) (test 4.4 1.2-4.3 H code = T7) THYROID STIMULATING [id number] 12:41:00 Test Item Value Reference Range Interpretation Comments THYROID STIMULATING HORMONE (test code MIU/L 0.465-4.68 = TSH) CBC W/AUTO [id number] 12:39:00 Test Item Value Reference Range Interpretation [...] 0.00 K/mm3 0.0-0.1 N NRBC#) BASIC METABOLIC [id number] 12:26:00 Test Item Value Reference Range Interpretation [...] code = 9.8 MG/DL 8.4-10.2 N CA) [id number] 12:26:00 Test Item Value Reference Range Interpretation Comments PHOSPHOROUS (test code = PHOS) 2.6 MG/DL 2.5-4.5 N [id number] 12:26:00 Test Item Value Reference Range Interpretation Comments MAGNESIUM (test code = MAG) 2.3 MG/DL 1.6-2.3 N T3,T4 [id number] 12:26:00 Test Item Value Reference Range Interpretation Comments T3 UPTAKE (test code = T3UP) % UP 23.5-40.5 T4 (THYROXINE) (test code = T4) UG/DL 5.53-11.0 T7 (FREE THYROXINE INDEX) (test code = 1.2-4.3 T7) THYROID STIMULATING [id number] 12:26:00 Test Item Value Reference Range Interpretation Comments THYROID STIMULATING HORMONE (test code MIU/L 0.465-4.68 = TSH) BASIC METABOLIC [id number] 12:25:00 Test Item Value Reference Range Interpretation [...] CALCIUM (test code = MG/DL 8.7-9.7 CA) [id number] 12:25:00 Test Item Value Reference Range Interpretation Comments PHOSPHOROUS (test code = PHOS) MG/DL 2.5-4.5 [id number] 12:25:00 Test Item Value Reference Range Interpretation Comments MAGNESIUM (test code = MAG) MG/DL 1.6-2.3 T3,T4 [id number] 12:25:00 Test Item Value Reference Range Interpretation Comments T3 UPTAKE (test code = T3UP) % UP 23.5-40.5 T4 (THYROXINE) (test code = T4) UG/DL 5.53-11.0 T7 (FREE THYROXINE INDEX) (test code = 1.2-4.3 T7) THYROID STIMULATING [id number] 12:25:00 Test Item Value Reference Range Interpretation Comments THYROID STIMULATING HORMONE (test code MIU/L 0.465-4.68 = TSH) BASIC METABOLIC [id number] 12:25:00 Test Item Value Reference Range Interpretation [...] CALCIUM (test code = MG/DL 8.7-9.7 CA) [id number] 12:25:00 Test Item Value Reference Range Interpretation Comments PHOSPHOROUS (test code = PHOS) MG/DL 2.5-4.5 [id number] 12:25:00 Test Item Value Reference Range Interpretation Comments MAGNESIUM (test code = MAG) MG/DL 1.6-2.3 T3,T4 [id number] 12:25:00 Test Item Value Reference Range Interpretation Comments T3 UPTAKE (test code = T3UP) % UP 23.5-40.5 T4 (THYROXINE) (test code = T4) UG/DL 5.53-11.0 T7 (FREE THYROXINE INDEX) (test code = 1.2-4.3 T7) THYROID STIMULATING [id number] 12:25:00 Test Item Value Reference Range Interpretation Comments THYROID STIMULATING HORMONE (test code MIU/L 0.465-4.68 = TSH) BASIC METABOLIC [id number] 12:25:00 Test Item Value Reference Range Interpretation [...] CALCIUM (test code = MG/DL 8.7-9.7 CA) [id number] 12:25:00 Test Item Value Reference Range Interpretation Comments PHOSPHOROUS (test code = PHOS) MG/DL 2.5-4.5 [id number] 12:25:00 Test Item Value Reference Range Interpretation Comments MAGNESIUM (test code = MAG) MG/DL 1.6-2.3 T3,T4 [id number] 12:25:00 Test Item Value Reference Range Interpretation Comments T3 UPTAKE (test code = T3UP) % UP 23.5-40.5 T4 (THYROXINE) (test code = T4) UG/DL 5.53-11.0 T7 (FREE THYROXINE INDEX) (test code = 1.2-4.3 T7) THYROID STIMULATING [id number] 12:25:00 Test Item Value Reference Range Interpretation Comments THYROID STIMULATING HORMONE (test code MIU/L 0.465-4.68 = TSH) BASIC METABOLIC [id number] 12:23:00 Test Item Value Reference Range Interpretation [...] CALCIUM (test code = CA) MG/DL 8.7-9.7 [id number] 12:23:00 Test Item Value Reference Range Interpretation Comments PHOSPHOROUS (test code = PHOS) MG/DL 2.5-4.5 [id number] 12:23:00 Test Item Value Reference Range Interpretation Comments MAGNESIUM (test code = MAG) MG/DL 1.6-2.3 T3,T4 [id number] 12:23:00 Test Item Value Reference Range Interpretation Comments T3 UPTAKE (test code = T3UP) % UP 23.5-40.5 T4 (THYROXINE) (test code = T4) UG/DL 5.53-11.0 T7 (FREE THYROXINE INDEX) (test code = 1.2-4.3 T7) THYROID STIMULATING [id number] 12:23:00 Test Item Value Reference Range Interpretation Comments THYROID STIMULATING HORMONE (test code MIU/L 0.465-4.68 = TSH) BASIC METABOLIC [id number] 12:22:00 Test Item Value Reference Range Interpretation [...] CALCIUM (test code = CA) MG/DL 8.7-9.7 [id number] 12:22:00 Test Item Value Reference Range Interpretation Comments PHOSPHOROUS (test code = PHOS) MG/DL 2.5-4.5 [id number] 12:22:00 Test Item Value Reference Range Interpretation Comments MAGNESIUM (test code = MAG) MG/DL 1.6-2.3 T3,T4 [id number] 12:22:00 Test Item Value Reference Range Interpretation Comments T3 UPTAKE (test code = T3UP) % UP 23.5-40.5 T4 (THYROXINE) (test code = T4) UG/DL 5.53-11.0 T7 (FREE THYROXINE INDEX) (test code = 1.2-4.3 T7) THYROID STIMULATING [id number] 12:22:00 Test Item Value Reference Range Interpretation Comments THYROID STIMULATING HORMONE (test code MIU/L 0.465-4.68 = TSH) - XR HIP W/PEL UNI 2+V [id number] 11:43:00 Patient Name: DEBI GARRETT Unit No: [id number] EXAMS: CPT CODE: [id number] XR HIP W/PEL UNI 2+V [place] 12930 EXAM: - XR HIP W/PEL UNI 2+V [...] Guevara MD CC: Poli Aaron; Jana Acosta [employer] Technologist: Britney Myers RT (R) Transcrpt Date/Tm/Trnsp: 08/08/2019 (1143) [email or web address] Orig Print D/T: S: 08/08/2019 (1147) [facility] NAME: DEBI GARRETT [address] PHYS: DUSTY.Ric [place] [address] : 1935 AGE: 84 SEX: F LOC: Z.SI05 A PHONE #: [phone] EXAM DATE: 08/08/2019 STATUS: ADM IN FAX #: [phone] RADIOLOGY NO: PAGE 1 Signed Report- CT HEAD/BRAIN W/O [id number] 11:40:00 Patient Name: DEBI GARRETT Unit No: [id number] EXAMS: CPT CODE: [id number] CT HEAD/BRAIN W/O CONT 89636 EXAMINATION: - CT HEAD/BRAIN W/O CONT. LOCATION: [...] Ever Finney CC: Poli Aaron; Jana Acosta [employer] Technologist: Filipe Perez, RT(R) CTDI: DLP: Trnscrpt: 08/08/2019 (1140) t.[email or web address].[email or web address] [facility] NAME: DEBI GARRETT [address] PHYS: DUSTY.Ric - Karla,[place] [address] : 1935 AGE: 84 SEX: F LOC: Z.SI05 A PHONE #: [phone] EXAM DATE: 08/08/2019 STATUS: ADM IN FAX #: [phone] RAD #: D/C DT PAGE 1 Signed Report Patient Name: DEBI GARRETT Unit No: [id number] EXAMS: CPT CODE: [id number] CT HEAD/BRAIN W/O CONT 38944 (Continued) Orig Print D/T: S: 08/08/2019 (1143) [facility] NAME: DEBI GARRETT [id number] PHYS: DUSTY. - Karla,[place] [address] : 1935 AGE: 84 SEX: F LOC: Z.SI05 A PHONE #: [phone] EXAM DATE: 08/08/2019 STATUS: ADM IN FAX #: [phone] RAD #: D/C DT PAGE 2 Signed Report- XR CHEST 1V 2019-08-08 08:51:00 Patient Name: DEBI GARRETT Unit No: [id number] EXAMS: CPT CODE: [id number] XR CHEST 1V 79126 EXAM: - XR CHEST 1V Location code:B2 [...] 0851 Reported and signed by: Kathrin Guevara, [facility]: Poli Aaron; Jana Acosta [employer] Technologist: Octavio Lerner, RT(R) Transcrpt Date/Tm/Trnsp: 08/08/2019 (0851) [email or web address] Orig Print D/T: S: 08/08/2019 (0854) [facility] NAME: DEBI GARRETT [address] PHYS: DUSTY.[place] [address] : 1935 AGE: 84 SEX: F LOC: Z.SI05 A PHONE #: [phone] EXAM DATE: 08/08/2019 STATUS: ADM IN FAX #: [phone] RADIOLOGY NO: PAGE 1 Signed Report ARTERY,[id number] 12:46:00 RUN DATE: 08/07/19 [facility] PAGE 1 RUN TIME: 1246 Specimen Inquiry RUN USER: INTERFACE PATIENT: DEBI GARRETT LOC: MYLSE U #: [id number] AGE/SX: 84/F ROOM: [facility] RE08/06/19[facility] DR: Robi Schroeder MD : 37 BED: A DIS: STATUS: ADM IN TLOC: SPEC #: [id number] RECD: 08/06/19 STATUS: DOV REQ #: [id number] KELLE: 08/06/19-1246 [facility] DR: Robi Schroeder MD ENTERED: 08/06/19 SPTYPE: ARTERY, PL OTHR DR: Self Referred Mirella Francis MD, Patricia Q MD Pepper, Gregory S MDORDERED: DECAL, SURG PATH LVL 3, SURG PATH LVL 4 CODES: [id number] - PLAQUE, NOS E28956 - ARTERY, NOS 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 ARTERY, NOS - RT CAROTID PLAQUE B. LYMPH NODE, NOS - RT CERVICAL LYMPH NODE CONTINUED ON NEXT PAGE -------- ----RUN DATE: 08/07/19 [place] - LAB PAGE 2 RUN TIME: 1246 Specimen Inquiry RUN USER: INTERFACE SPEC #: [id number] PATIENT: DEBI GARRETT #[id number] (Continued) CLINICAL HISTORY S/P RIGHT CEA CPT CODES CPT CODE(S): 14708 , 45316, 94883 , , , , FINAL DIAGNOSIS A. [...] 1246 END OF REPORT - XR CHEST [id number] 10:56:00 Patient Name: DEBI GARRETT Unit No: [id number] EXAMS: CPT CODE: [id number] XR CHEST 1V 52086 EXAMINATION: - XR CHEST 1V. LOCATION: B2. [...] t.[email or web address] Orig Print D/T: S: 08/07/2019 (1100) [facility] NAME: DEBI GARRETT [address] [place] [address] PHYS: [place] [address] : 1935 AGE: 84SEX: F LOC: Z.SI01 A PHONE #: [phone] EXAM DATE: 08/07/2019 STATUS: ADM IN FAX #: [phone] RADIOLOGY NO: PAGE 1 Signed ReportBASIC METABOLIC [id number] 06:56:00 Test Item Value Reference Range Interpretation [...] CA) CBN DRAW LEFT TUBES FOR NURSE [id number] 06:56:00 Test Item Value Reference Range Interpretation Comments MAGNESIUM (test code = MAG) 1.8 MG/DL 1.6-2.3 N CBN DRAW LEFT TUBES FOR NURSE ROSREYESBASIC METABOLIC [id number] 06:55:00 Test Item Value Reference Range Interpretation [...] CA) CBN DRAW LEFT TUBES FOR NURSE [id number] 06:55:00 Test Item Value Reference Range Interpretation Comments MAGNESIUM (test code = MAG) MG/DL 1.6-2.3 CBN DRAW LEFT TUBES FOR NURSE ROSIEBASIC METABOLIC [id number] 06:53:00 Test Item Value Reference Range Interpretation [...] 8.7-9.7 CBN DRAW LEFT TUBES FOR NURSE [id number] 06:53:00 Test Item Value Reference Range Interpretation Comments MAGNESIUM (test code = MAG) MG/DL 1.6-2.3 CBN DRAW LEFT TUBES FOR NURSE ROSIECBC W/AUTO [id number] 06:42:00 Test Item Value Reference Range Interpretation [...] DRAW LEFT TUBES FOR NURSE ROSIEBASIC METABOLIC [id number] 13:33:00 Test Item Value Reference Range Interpretation [...] code = 10.0 MG/DL 8.4-10.2 N CA) [id number] 13:33:00 Test Item Value Reference Range Interpretation Comments MAGNESIUM (test code = MAG) 1.8 MG/DL 1.6-2.3 N BASIC METABOLIC [id number] 13:32:00 Test Item Value Reference Range Interpretation [...] CALCIUM (test code = MG/DL 8.7-9.7 CA) [id number] 13:32:00 Test Item Value Reference Range Interpretation Comments MAGNESIUM (test code = MAG) MG/DL 1.6-2.3 BASIC METABOLIC [id number] 13:30:00 Test Item Value Reference Range Interpretation [...] CALCIUM (test code = CA) MG/DL 8.7-9.7 [id number] 13:30:00 Test Item Value Reference Range Interpretation Comments MAGNESIUM (test code = MAG) MG/DL 1.6-2.3 BASIC METABOLIC [id number] 13:29:00 Test Item Value Reference Range Interpretation [...] CALCIUM (test code = CA) MG/DL 8.7-9.7 [id number] 13:29:00 Test Item Value Reference Range Interpretation Comments MAGNESIUM (test code = MAG) MG/DL 1.6-2.3 CBC W/AUTO [id number] 13:19:00 Test Item Value Reference Range Interpretation [...] K/mm3 0.0-0.1 N NRBC#) - XR CHEST [id number] 13:05:00 Patient Name: DEBI GARRETT Unit No: [id number] EXAMS: CPT CODE: [id number] XR CHEST 1V 62298 Site ID: [id number] HISTORY: Postoperative, right CEA [...] Octavio Lerner, RT(R) Transcrpt Date/Tm/Trnsp: 08/06/2019 (1305) [email or web address] Orig Print D/T: S: 08/06/2019 (1308) [facility] NAME: DEBI GARRETT [address] PHYS: [place] [address] : 1935 AGE: 84 SEX: F LOC: Z.SI01 A PHONE #: [phone] EXAM DATE: 08/06/2019 STATUS: ADM IN FAX #: [phone] RADIOLOGY NO: PAGE 1 Signed ReportARTERIAL BLOOD [id number] 13:00:00 Test Item Value Reference Range Interpretation [...] = 50 % COHBGFFIO2) Novel Coronavirus 2019 [id number] 08:07:00 Test Item Value Reference Range Interpretation Comments Novel Coronavirus 2018 Inhouse (test Negative Negative code = COVNONPUI) Novel Coronavirus 2019 [id number] 08:06:00 Test Item Value Reference Range Interpretation Comments Novel Coronavirus 2019 Inhouse (test Negative Negative code = COVNONPUI) HIV 12 AB [id number] 14:28:00 Test Item Value Reference Range Interpretation Comments HIV 1 2 COMBO AG/AB SCREEN AB/AG NON REACTIVE NONREACTIVE (test code = [id number]) BASIC METABOLIC [id number] 13:39:00 Test Item Value Reference Range Interpretation [...] 10.3 MG/DL 8.4-10.2 H CA) BASIC METABOLIC [id number] 13:38:00 Test Item Value Reference Range Interpretation [...] code = MG/DL 8.7-9.7 CA) BASIC METABOLIC [id number] 13:36:00 Test Item Value Reference Range Interpretation [...] code = CA) MG/DL 8.7-9.7 BASIC METABOLIC [id number] 13:35:00 Test Item Value Reference Range Interpretation [...] (test code = CA) MG/DL 8.7-9.7 PROTHROMBIN [id number] 13:32:00 Test Item Value Reference Range Interpretation [...] myocar dial infarction. 2.0 - 3.0 3. Mortician Helper al prosthesis hear t valves, recurre nt systemic emboli sm. 3.0 - 4.5 PTT [id number] 13:32:00 Test Item Value Reference Range Interpretation Comments PTT ACTIVATED (test code = APTT) 35.5 SECONDS 25.1-36.5 N CBC W/AUTO [id number] 13:23:00 Test Item Value Reference Range Interpretation [...] 0.0-0.1 N NRBC#) - XR CHEST 2 [id number] 13:16:00 Patient Name: DEBI GARRETT Unit No: [id number] EXAMS: CPT CODE: [id number] XR CHEST 2 V 97767 Site ID: [id number] HISTORY: Preoperative, right carotid endarterectomy FINDINGS: The lungs are clear and normally expanded. The heart and pulmonary vasculature is normal. Previous coronary artery stenting noted. Osseous structures are unremarkable. IMPRESSION: No acute cardiopulmonary finding at 1316 Reported and signed by: Laith Salcido MD CC: P atriveronique Aaron Technologist: Britney Myers, RT (R) Transcrpt Date/Tm/Trnsp: 07/29/2019 (1316) [email or web address] Orig Print D/T: S: 07/29/2019 (1795) [facility] NAME: DEBI GARRETT [address] PHYS: [place] [address] : 1935 AGE: 84 SEX: F LOC: JING PHONE #: [phone] EXAM DATE: 07/29/2019 STATUS: PRE IN FAX #: [phone] RADIOLOGY NO: PAGE 1 Signed ReportBASIC METABOLIC [id number] 06:23:00 Test Item Value Reference Range Interpretation [...] 0-189 mg/dL VERY HIGH.........>/ = 190 mg/dL [id number] 06:23:00 Test Item Value Reference Range Interpretation Comments MAGNESIUM (test code = MAG) 2.2 MG/DL 1.6-2.3 N PROTHROMBIN [id number] 06:16:00 Test Item Value Reference Range Interpretation [...] myocar dial infarction. 2.0 - 3.0 3. Mortician Helper al prosthesis hear t valves, recurre nt systemic emboli sm. 3.0 - 4.5 PTT [id number] 06:16:00 Test Item Value Reference Range Interpretation Comments PTT ACTIVATED (test code = APTT) 33.9 SECONDS 25.1-36.5 N BASIC METABOLIC [id number] 06:11:00 Test Item Value Reference Range Interpretation [...] LDL (test MG/DL 0-99 code = LDL) [id number] 06:11:00 Test Item Value Reference Range Interpretation Comments MAGNESIUM (test code = MAG) MG/DL 1.6-2.3 BASIC METABOLIC [id number] 06:11:00 Test Item Value Reference Range Interpretation [...] LDL (test MG/DL 0-99 code = LDL) [id number] 06:11:00 Test Item Value Reference Range Interpretation Comments MAGNESIUM (test code = MAG) 2.2 MG/DL 1.6-2.3 N BASIC METABOLIC [id number] 06:08:00 Test Item Value Reference Range Interpretation [...] LDL (test code = LDL) MG/DL 0-99 [id number] 06:08:00 Test Item Value Reference Range Interpretation Comments MAGNESIUM (test code = MAG) MG/DL 1.6-2.3 CBC W/AUTO [id number] 06:00:00 Test Item Value Reference Range Interpretation [...]
[2023-02-09] MEDS ORDERED: DOCUSATE NA 100 MG CAP PO PRN (15:35)
[2023-02-09 15:42] VITALS: BMI 20.3
[2023-02-09] MEDS ORDERED: ACETAMINOPHEN 500 MG TAB PO PRN (15:51)
[2023-02-09] MEDS: DOCUSATE NA/SENNA CONC 1 TAB PO PRN (19:07)
[2023-02-09] MEDS: ATORVASTATIN 80 MG TAB PO SCH (19:08)
[2023-02-09] MEDS: DONEPEZIL HCL 5 MG TAB PO SCH (19:08)
[2023-02-09] MEDS: PREGABALIN 50 MG CAP PO SCH (19:08)
[2023-02-09] MEDS: ISOSORBIDE DINIT 5 MG TAB PO SCH (20:00)
[2023-02-09] MEDS ORDERED: DONEPEZIL HCL 5 MG TAB PO SCH (21:00)
--- NOTE | 2023-02-09 22:56 | HP ---
Date of Admission: 02/09/2023 Time Of Service: 2:30 p.m. Chief Complaint: "I have been falling a lot and became very weak and confused." History Of Present Illness: Ms. Ramos is an 87-year-old patient with multiple hospital admissions, at least three in 3 weeks with hypertension, altered mental status, hypoxia, acute renal insufficien cy and came from local assisted living facility. She had significant episodes of orthostatic hypoten ada resulting in falls. At [facility], CT scan of the head showed no acute ischemic hemorrhagic [facility]. She had blood work showing renal insufficiency with acute on chronic renal dysfunction. In ad dition, she had metabolic encephalopathy. She needed fluid management for blood pressure regulation and was determined by Physical and Occupational Therapy to be functioning at a significantly lower le derick compared to the last months. She required moderate to maximum assistance for ordinary activities , such as transfers, mobilization, and performing her activities of daily living. Furthermore, she n eeded to have the renal function optimized and her blood pressure management as well optimized to dec rease the risk of bounding fluctuations in blood pressure. Furthermore, she has evidence of parkinso nism with some autonomic dysfunction and will likely be requiring potentially abdominal binders and T ED hose to help mitigate significant drop in blood pressure. If need be, pressor support with midodr ine and Florinef may be used. In any event she needs careful evaluation and management during rehabi litation to make these determinations. Past Medical History: Hypertension; dyslipidemia; chronic kidney disease; coronary artery disease; A lzheimer's; atrial fibrillation, on chronic anticoagulation; gastroesophageal reflux; and parkinsonis m with hearing loss. Allergies: AMOXICILLIN, CAUSES A RASH. CLAVULANIC ACID, ALSO CAUSES RASH. PENICILLIN, CAUSES RASH. SULFAMETHOXAZOLE, CAUSES ITCHING. TRIMETHOPRIM, CAUSES ITCHING. HYDROCODONE, INSOMNIA. Current Medications: Tylenol 500 mg every 4 hours as needed, amlodipine 5 mg daily, aspirin 81 mg da yon, Lipitor 80 mg at bedtime, Coreg 3.125 mg daily, Plavix 75 mg daily, Colace 100 mg daily, Aricept 10 mg at bedtime, Cymbalta 20 mg daily, Isordil 5 mg twice daily, Synthroid 0.05 mg daily, lidocaine patch apply 1 topically daily as needed, melatonin 3 mg at bedtime, Lyrica 100 mg twice daily, Senok ot-S 2 at bedtime. Family History: Noncontributory. Social History: No alcohol, tobacco, or IV drug use. X-ray/imaging: CT scan of the head on 02/07/2023 shows mild nonspecific white matter changes seconda ry to chronic small vessel ischemic disease with mild cerebral atrophy. Laboratory Studies: White blood cell count 7.6, hemoglobin 11.8, platelets 276. Sodium 138, potassi um 3.6, glucose 89, BUN 14, creatinine 0.72, calcium 8.9, albumin 3.6. Review of Systems: Ms. Ramos reports some diffuse weakness, mild confusion, but no significant pain. She has some con stipation and mild difficulty with sleep. Otherwise, no rash, fevers or chills. No significant myal gias, although some pain in the knees and she has a patch being placed. Physical Examination: Vital Signs: Blood pressure 97/52, pulse 57, respiratory rate 18, temperature 97.3, oxygen saturatio n 96%. General: Ms. Ramos is resting comfortably in a chair. She did rap around the unit. HEENT: She is normocephalic, atraumatic. Sclerae anicteric. Oropharynx is pink and moist. Neck: Supple. Chest: Clear. Heart: Regular. Extremities: Show no significant clubbing, cyanosis, or edema. Neurological: She has diffuse weakness of lower extremities. Decreased in a stocking glove fashion sensation. Decreased reflexes. Gait with a gait belt and rolling walker. She has slightly decrease d stride length, back to good stance. Current Level Of Functioning: Set up assistance for eating and oral hygiene, also contact guard assi stance. Toileting, moderate assistance. Showering, moderate assistance. Upper body dressing and lo wer body dressing, moderate assistance. Donning and doffing footwear, moderate assistance. Rolling from rcuh-xi-nljmx and kiosu-dj-nuiw, contact guard assistance. Sit to stand, contact guard assistan ce. Ambulation, moderate assist with a rolling walker. She did cover 160 feet. Rehab And Medical Assessment And Plan: Ms. Ramos is admitted to the inpatient rehabilitation unit with impairment category 20, which is miscellaneous. Her impairment group code is 16, debility, nonc ardiac, nonpulmonary. Her etiologic diagnosis is renal insufficiency. Active comorbidities: Anemia , coronary artery disease, decrease in mobility, decrease in physical functioning, dementia, hyperten ada, weakness, altered mental status. Additional comorbidities: Alzheimer disease. Plan: 1.She will have 3.5 hours of physical, occupational, and speech therapy. 2.For the dementia and Alzheimer disease, we will continue Aricept 10 mg at bedtime. For depression , continue duloxetine 20 mg daily. For hypothyroidism, Synthroid mg daily. For knee pain in the joint, we will put lidocaine patch, apply topically daily. For insomnia, melatonin 3 at [facility] t. For her neuropathic pain, Lyrica 100 mg twice daily. For constipation, Senokot-S 2 at bedtime al gt with Colace 100 mg daily. For stroke risk reduction, aspirin 81 mg and Plavix 75 mg daily. For DVT prophylaxis, SCDs placed. For heart rate and blood pressure, will have Coreg 3.125 mg daily and Norvasc 5 mg daily. For pain, Tylenol 500 mg every 4 hours as needed. Impact Of Comorbidities: Given the cognitive issues, she will require supervision for safety awarene . She will have Speech Therapy to work with her and will work on optimizing her renal function to reduce uremic encephalopathy. Will also work with rest and aggressive speech therapy. [facility] and will have aspirin along with Plavix. May consider Eliquis 5 mg twice daily for atria l fibrillation with an EKG baseline to determine current cardiac rhythm. Rehab Specific Plan: 1.Ms. Ramos will have physical, occupational, and speech therapy for 3.5 hours, 5 to 7 days to imp rove her ability to transfer from bed to toilet to chair into the shower. 2.For her to be able to perform those functioning tasks, either at modified independent level or ind ependent level. 3.Be able to walk with a rolling walker 250 feet with modified independence. 4.Mobilize in wheelchair 250 feet with modified independence. 5.Up and down 15 steps with modified independence. 6.Perform cognitive functioning with modified independence. 7.She will have custodial 24 hours a day. 8.Physician evaluation on a daily basis and Social Work and charge nurse evaluation and management f or discharge planning, equipment at home, arranging for continued therapy such as home [facility]. Ms. Ramos has a good understanding of the process of admission and discharge to the inpatient rehab ilitation facility, and the interdisciplinary approach to her rehabilitation. She has a potential to make good improvement and will require physical, occupational, speech therapy. If need be, addition al help from the hospitalist service, Renal Service may be consulted. Given her complex medical cond ition and risk of further complications, rehabilitation cannot be safely or effectively performed at a lower level of care such as custodial. Barriers To Discharge: Currently, she has had multiple falls and likely has some parkinsonism. May consider trying Sinemet as she ambulates, and she is to ambulate at all times with rolling walker and a gait belt. She should likely go back to an assisted living facility, where she can have help with her mobilization, transfers, especially for longer distances. Estimated Length Of Stay: About 12 to 14 days. Disposition: Will be back to her prior living arrangement with assisted living. Prognosis: Good. Rehabilitation Goals: 1.Become independent with upper and lower body dressing. 2.Independent with transferring from bed to toilet to chair to shower. 3.Independently perform showering, dressing upper and lower body, and donning/doffing of shoes. 4.Independently ambulate 250 feet. 5.Independently mobilize a wheelchair 250 feet. 6.Independently go up and down 15 steps. 7.Independently perform cognitive functioning. 8.Independently manage oral medications and/or affairs. The above goals were reviewed with Ms. Ramos. She is in agreement. By signing this document, I acknowledge I have personally performed a full physical examination on Ms Nely Ramos, no later than 24 hours after her admission to the inpatient rehabilitation facility and de termine that she is able to tolerate the above course of treatment at an intensive level for a reason able period of time. A detailed individualized plan of care for her will be completed by [facility] 4 based on the preadmission screen, history and physical, and therapy evaluations. KARTHIK Voice ID: [id number]
[2023-02-10] MEDS: LEVOTHYROXINE SOD 0.05 MG TABLET PO SCH (06:55)
[2023-02-10 07:59] LABS: Specific Gravity 1.007 (1.005-1.030); Urine Bacteria None Seen /HPF (<20); Urine Bilirubin NEGATIVE (Negative); Urine Blood Negative (Negative); Urine Clarity Clear (Clear); Urine Color Colorless (Yellow); Urine Glucose NEGATIVE (Negative); Urine Mucus Slight /HPF (None Seen); Urine Protein NEGATIVE (Negative); Urine RBC <5 /HPF (None Seen); Urine Urobilinogen Normal (Normal)
[2023-02-10 08:00] LABS: Hematocrit 37.6 % (36.0-45.0); Lymphocytes % 26.4 % (15.3-44.8); MCV 87.6 fL (80-100); MPV 8.2 fL (7.6-11.3); Platelets 286 thou/uL (152-406)
[2023-02-10] MEDS: ISOSORBIDE DINIT 5 MG TAB PO SCH ×2 (08:00→19:01)
[2023-02-10] MEDS: AMLODIPINE 5 MG TAB PO SCH (08:00)
[2023-02-10 08:59] LABS: Albumin 4.1 g/dL (3.4-5.0); Magnesium 1.8 mg/dL (1.6-2.4); Potassium 4.1 mEq/L (3.5-5.1)
[2023-02-10] MEDS: LIDOCAINE 4% PATCH TOP SCH (09:58)
[2023-02-10] MEDS: ASPIRIN EC 81 MG TAB PO SCH (09:58)
[2023-02-10] MEDS: PREGABALIN 50 MG CAP PO SCH ×2 (09:58→19:03)
[2023-02-10] MEDS: CLOPIDOGREL 75 MG TABLET PO SCH (09:58)
[2023-02-10] MEDS: DULOXETINE 20 MG CAP PO SCH (09:58)
[2023-02-10] MEDS: carvediloL 3.125 MG TAB PO SCH (09:58)
[2023-02-10 10:10] LABS: Prealbumin 22.1 mg/dL (20-40)
[2023-02-10] MEDS: DONEPEZIL HCL 5 MG TAB PO SCH (19:02)
[2023-02-10] MEDS: ATORVASTATIN 80 MG TAB PO SCH (19:03)
[2023-02-11] MEDS: LEVOTHYROXINE SOD 0.05 MG TABLET PO SCH (06:57)
[2023-02-11] MEDS: AMLODIPINE 5 MG TAB PO SCH (08:44)
[2023-02-11] MEDS: LIDOCAINE 4% PATCH TOP SCH (08:44)
[2023-02-11] MEDS: ISOSORBIDE DINIT 5 MG TAB PO SCH ×2 (08:44→20:13)
[2023-02-11] MEDS: CLOPIDOGREL 75 MG TABLET PO SCH (08:45)
[2023-02-11] MEDS: DULOXETINE 20 MG CAP PO SCH (08:45)
[2023-02-11] MEDS: ASPIRIN EC 81 MG TAB PO SCH (08:45)
[2023-02-11] MEDS: PREGABALIN 50 MG CAP PO SCH ×2 (08:46→20:12)
[2023-02-11] MEDS: carvediloL 3.125 MG TAB PO SCH (11:20)
[2023-02-11] MEDS: ATORVASTATIN 80 MG TAB PO SCH (20:12)
[2023-02-11] MEDS: DONEPEZIL HCL 5 MG TAB PO SCH (20:12)
[2023-02-11] MEDS: DOCUSATE NA/SENNA CONC 1 TAB PO PRN (20:13)
[2023-02-11] MEDS: MELATONIN 3 MG TABLET PO PRN (20:13)
[2023-02-12] MEDS: LEVOTHYROXINE SOD 0.05 MG TABLET PO SCH (06:33)
[2023-02-12] MEDS: PREGABALIN 50 MG CAP PO SCH ×2 (07:36→20:51)
[2023-02-12] MEDS: CLOPIDOGREL 75 MG TABLET PO SCH (07:37)
[2023-02-12] MEDS: ASPIRIN EC 81 MG TAB PO SCH (07:37)
[2023-02-12] MEDS: DULOXETINE 20 MG CAP PO SCH (07:37)
[2023-02-12] MEDS: ISOSORBIDE DINIT 5 MG TAB PO SCH ×2 (08:00→20:51)
[2023-02-12] MEDS: AMLODIPINE 5 MG TAB PO SCH (08:00)
[2023-02-12] MEDS: carvediloL 3.125 MG TAB PO SCH (08:00)
[2023-02-12] MEDS: LIDOCAINE 4% PATCH TOP SCH (11:32)
[2023-02-12] MEDS: DONEPEZIL HCL 5 MG TAB PO SCH (20:51)
[2023-02-12] MEDS: MELATONIN 3 MG TABLET PO PRN (20:51)
[2023-02-12] MEDS: ATORVASTATIN 80 MG TAB PO SCH (20:51)
[2023-02-12] MEDS: DOCUSATE NA/SENNA CONC 1 TAB PO PRN (20:51)
--- NOTE | 2023-02-12 22:46 | PN ---
Date of Progress Note: 02/12/2023 [facility] Progress Note Visit. Time Of Service: 1:35 p.m. Subjective: Ms. Ramos is resting well, in no apparent distress. No complaints. Having a shower d one. Her issues of admission include confusion and acute renal injury with debility and those are im proving well. Review of Systems: Mild myalgias, arthralgias. No rash, headache, weight change. She does have parkinsonism and denisa ia with Alzheimer disease, making somewhat challenging for her to recall all of her techniques, appro aches to help her improve. Physical Examination: Vital Signs: Blood pressure 140/63, pulse of 55. She had orthostatics and those were negative. Oth erwise, in terms of exam, again she is having a shower done and did not have any new reported issues. Laboratory Studies: Complete blood count differential is completely normal. Basic metabolic panel a lso normal. Urinalysis was remarkable for esterase being 75, otherwise unremarkable. No x-rays or i maging. Medications: Tylenol Extra Strength 500 mg every 4 hours as needed, Norvasc 5 mg daily, aspirin 81 m g daily, Lipitor 80 mg at bedtime, Coreg 3.125 mg daily, Plavix 75 mg daily, Colace 100 mg daily, Andi cept 10 mg at bedtime, Cymbalta 20 mg daily, Isordil 5 mg twice daily, Synthroid 0.05 mg daily, deepali onin 3 mg at bedtime, lidocaine patch apply 1 topically daily, Lyrica 100 mg twice daily, Senokot-S 2 at bedtime. Current Functional Status: Today, she ambulated with a rolling walker on level surfaces and covering 350 feet once and 100 feet once with contact guard assistance. She was able to ascend and descend 1 0 steps with bilateral handrails. Her supine to sit transfers done independently, sit to stand trans fers with contact guard assistance. With occupational therapy, she ambulated in the room to shower w ith a rolling walker and supervision and rest breaks and transferred with wheelchair, and also did am bulate to the bathroom with a rolling walker, performing grooming, standing at the sink, did verbal c ues to keep a rolling walker in front of her to prevent falling. Progress Towards Rehabilitation Goals: Ms. Ramso is making excellent progress towards her goals of becoming independent with upper body dressing, transferring, toileting, showering, donning and doffi ng of all shoes, putting up again. Also to get on the commode, to perform toileting, and then shower to perform showering. She is doing very well, ambulating more than household distances with modifie d independence and propelling wheelchair good distances with modified independence, going up and down 10 steps with modified independence, those are goals which she is doing very well in terms of achiev ing. Assessment: Ms. Ramos is an 87-year-old patient in rehabilitation with debility. She has renal in sufficiency, anemia, coronary artery disease, decrease in mobility, decrease in physical functioning, dementia, hypertension, and Alzheimer disease. Plan: 1.Continue with physical and occupational along with speech therapy for 3.5 hours, 5 of 7 days. 2.Continue all comorbid condition medications which have been listed and including Lyrica, Senokot-S , Colace, Norvasc, Coreg. Comorbidities That Continue To Impact Rehabilitation: Her renal insufficiency and debility are impro ving. She has as noted normal kidney function with normal creatinine and BUN. She can hydrate more as GFR is slightly decreased. No evidence of any infection. She is doing well from that standpoint. She does have the cognitive issues, which predated her reason for admission to the inpatient rehabi litation unit and likely will be ongoing. She has Aricept and donepezil on board. LOS/JACOB Voice ID: [id number] Report ID: [id number]
[2023-02-13] MEDS: LEVOTHYROXINE SOD 0.05 MG TABLET PO SCH (05:31)
[2023-02-13] MEDS: AMLODIPINE 5 MG TAB PO SCH (08:00)
[2023-02-13] MEDS: ISOSORBIDE DINIT 5 MG TAB PO SCH ×2 (08:00→20:06)
[2023-02-13] MEDS: carvediloL 3.125 MG TAB PO SCH (09:25)
[2023-02-13] MEDS: CLOPIDOGREL 75 MG TABLET PO SCH (09:25)
[2023-02-13] MEDS: PREGABALIN 50 MG CAP PO SCH ×2 (09:25→20:06)
[2023-02-13] MEDS: DULOXETINE 20 MG CAP PO SCH (09:25)
[2023-02-13] MEDS: ASPIRIN EC 81 MG TAB PO SCH (09:25)
[2023-02-13] MEDS: LIDOCAINE 4% PATCH TOP SCH (09:26)
--- NOTE | 2023-02-13 15:12 | PN ---
Date of Progress Note: 02/13/2023 Time Of Service: 12:35 p.m. Subjective: Ms. Ramos is resting in bed in between therapy sessions. She has no new complaints. Says she is happy so far with therapy. She would like to actually remain in hospital throughout the time, this is Thanksgiving. She says her family members are going to be leaving town and she would r ather be in our facility during that time. Review of Systems: Mild myalgias, arthralgias. No other positives there such as shortness of breath, rash, fever, or ot her complaints on a 10-point system. Physical Examination: Vital Signs: Blood pressure 154/57, pulse 60, respiratory rate 16, temperature 97, oxygen saturation 94%. General: Ms. Ramos is resting in bed. She is in no significant distress. HEENT: She appears normocephalic, atraumatic. Sclerae anicteric. Oropharynx pink and moist. Neck: Supple. Chest: Clear. Heart: Regular. Extremities: No edema or cyanosis noted. She has diffuse weakness of lower extremities with her ward lity. Laboratory Studies: No new laboratory studies. X-ray/imaging: No new x-rays or imaging. Medications: Medications have been reviewed and remain unchanged. She has aspirin for stroke risk r eduction. Also Plavix and SCDs with her mobilization for her DVT prophylaxis. Continue her Synthroi d for hypothyroidism, Senokot for constipation, Lyrica for neuropathic pain, melatonin for insomnia, duloxetine for depression, Coreg for heart rate and blood pressure control, Lipitor for dyslipidemia, Norvasc for her blood pressure, Tylenol as needed for pain. Current Functional Status: Today, with speech therapy, she demonstrated ability to sequence 4 pieces of information with 70% accuracy and moderate assistance. She used internal memory strategies to re call 4 of 4 unrelated pictures after 5 of 7 minutes. She was able to ambulate 350 feet and 100 feet with contact guard assistance using a rolling walker up and down 10 steps with bilateral handrails. Progress Towards Rehabilitation Goals: Ms. Ramos is making great progress towards her goals of bec oming independent with upper and lower body dressing, transferring, toileting, showering, donning and doffing of shoes, ambulating 250 feet with modified independence, propelling wheelchair 250 feet wit h modified independence, up and down 15 steps with modified independence and performing her cognitive functioning with independence. Assessment: Ms. Ramos is an 87-year-old patient in the rehabilitation unit with renal injury and d ebility. She has dementia which is of mild Alzheimer's disease. She has decreased mobility, decreas ed physical functioning, hypertension, anemia. Plan: Continue with physical, occupational, and speech therapy for 3.5 hours, 5 to 7 days. She has multiple medications, which have been noted and they are continuing unchanged. Comorbidities That Continue To Impact Rehabilitation Process: Currently, her kidney function is impr tasha to normal. Her debility is improving as she is ambulating very well, mobilizing well. Cognitiv e functioning is also improving with speech therapy. She has the donepezil on board. In the prior n ote, they note does have Aricept and donepezil. The Aricept and donepezil is the generic of Aricept. LOS/JACOB Voice ID: [id number] Report ID: [id number]
[2023-02-13] MEDS: MELATONIN 3 MG TABLET PO PRN (20:06)
[2023-02-13] MEDS: DONEPEZIL HCL 5 MG TAB PO SCH (20:06)
[2023-02-13] MEDS: ATORVASTATIN 80 MG TAB PO SCH (20:06)
[2023-02-14] MEDS: LEVOTHYROXINE SOD 0.05 MG TABLET PO SCH (05:15)
[2023-02-14] MEDS: PREGABALIN 50 MG CAP PO SCH ×2 (09:21→19:35)
[2023-02-14] MEDS: LIDOCAINE 4% PATCH TOP SCH (09:21)
[2023-02-14] MEDS: carvediloL 3.125 MG TAB PO SCH (09:22)
[2023-02-14] MEDS: DULOXETINE 20 MG CAP PO SCH (09:22)
[2023-02-14] MEDS: CLOPIDOGREL 75 MG TABLET PO SCH (09:22)
[2023-02-14] MEDS: ASPIRIN EC 81 MG TAB PO SCH (09:23)
[2023-02-14] MEDS: AMLODIPINE 5 MG TAB PO SCH (10:01)
[2023-02-14] MEDS: ISOSORBIDE DINIT 5 MG TAB PO SCH ×2 (12:50→19:35)
[2023-02-14] MEDS: ATORVASTATIN 80 MG TAB PO SCH (19:35)
[2023-02-14] MEDS: DONEPEZIL HCL 5 MG TAB PO SCH (19:35)
[2023-02-14] MEDS: DOCUSATE NA/SENNA CONC 1 TAB PO PRN (20:07)
[2023-02-15] MEDS: LEVOTHYROXINE SOD 0.05 MG TABLET PO SCH (06:39)
[2023-02-15] MEDS: ISOSORBIDE DINIT 5 MG TAB PO SCH ×3 (08:00→19:34)
[2023-02-15] MEDS: LIDOCAINE 4% PATCH TOP SCH (08:34)
[2023-02-15] MEDS: AMLODIPINE 5 MG TAB PO SCH (08:34)
[2023-02-15] MEDS: carvediloL 3.125 MG TAB PO SCH (08:35)
[2023-02-15] MEDS: CLOPIDOGREL 75 MG TABLET PO SCH (08:36)
[2023-02-15] MEDS: ASPIRIN EC 81 MG TAB PO SCH (08:36)
[2023-02-15] MEDS: DULOXETINE 20 MG CAP PO SCH (08:36)
[2023-02-15] MEDS: PREGABALIN 50 MG CAP PO SCH ×2 (08:36→19:34)
[2023-02-15 08:42] LABS: Absolute Lymphocytes (CBC) 1.6 K/uL (0.7-4.9); Hematocrit 35.8 % (36.0-45.0); Lymphocytes % 24.8 % (15.3-44.8); MCV 87.4 fL (80-100); MPV 8.4 fL (7.6-11.3); Platelets 230 thou/uL (152-406)
[2023-02-15 10:31] LABS: Albumin 3.5 g/dL (3.4-5.0); Potassium 3.6 mEq/L (3.5-5.1); Prealbumin 19.7 mg/dL (20-40)
[2023-02-15] MEDS: DOCUSATE NA/SENNA CONC 1 TAB PO PRN (19:33)
[2023-02-15] MEDS: DONEPEZIL HCL 5 MG TAB PO SCH (19:34)
[2023-02-15] MEDS: ATORVASTATIN 80 MG TAB PO SCH (19:34)
[2023-02-15] MEDS: MELATONIN 3 MG TABLET PO PRN (19:38)
[2023-02-16] MEDS: LEVOTHYROXINE SOD 0.05 MG TABLET PO SCH (06:40)
[2023-02-16 06:47] VITALS: TEMP 97
[2023-02-16] MEDS: PREGABALIN 50 MG CAP PO SCH (07:33)
[2023-02-16] MEDS: AMLODIPINE 5 MG TAB PO SCH (07:33)
[2023-02-16] MEDS: ISOSORBIDE DINIT 5 MG TAB PO SCH (07:34)
[2023-02-16] MEDS: ASPIRIN EC 81 MG TAB PO SCH (07:34)
[2023-02-16] MEDS: DULOXETINE 20 MG CAP PO SCH (07:34)
[2023-02-16] MEDS: CLOPIDOGREL 75 MG TABLET PO SCH (07:34)
[2023-02-16 07:35] VITALS: BP 157/67
[2023-02-16] MEDS: carvediloL 3.125 MG TAB PO SCH (08:00)
--- NOTE | 2023-02-16 08:34 | P.RH.PN ---
Estimated Length of Stay: 11 Expected Discharge Date: 02/19/23 Discharge Disposition Plan: Home Family Support: Yes Long-Term Goal: Mobility, Transfers, Self Care Vital Signs: Last Vital Signs Temp 97 F 02/16/23 06:46 Pulse 49 L 02/16/23 07:33 Resp 17 02/16/23 06:46 BP 157/67 H 02/16/23 07:33 Pulse Ox 93 02/16/23 06:46 Laboratory: Laboratory Last Values WBC 6.50 thou/uL (4.3-10.9) 02/15/23 08:00 RBC 4.10 M/uL (3.86-4.86) 02/15/23 08:00 Hgb 12.2 g/dL (12.0-15.0) 02/15/23 08:00 Hct 35.8 % (36.0-45.0) L 02/15/23 08:00 MCV 87.4 fL (80-100) 02/15/23 08:00 MCH 29.9 pg (27.0-35.0) 02/15/23 08:00 MCHC 34.2 g/dL (32.0-36.0) 02/15/23 08:00 RDW 17.5 % (12.1-15.2) H 02/15/23 08:00 Plt Count 230 thou/uL (152-406) 02/15/23 08:00 MPV 8.4 fL (7.6-11.3) 02/15/23 08:00 Neutrophils % 65.2 % (41.7-73.7) 02/15/23 08:00 Lymphocytes % 24.8 % (15.3-44.8) 02/15/23 08:00 Monocytes % 6.7 % (3.3-12.3) 02/15/23 08:00 Eosinophils % 2.1 % (0-4.4) 02/15/23 08:00 Basophils % 1.2 % (0-1.3) 02/15/23 08:00 Absolute Neutrophils 4.2 K/uL (1.8-8.0) 02/15/23 08:00 Absolute Lymphocytes 1.6 K/uL (0.7-4.9) 02/15/23 08:00 Absolute Monocytes 0.4 K/uL (0.1-1.3) 02/15/23 08:00 Absolute Eosinophils 0.1 K/uL (0-0.5) 02/15/23 08:00 Absolute Basophils 0.1 K/uL (0-0.5) 02/15/23 08:00 Sodium 139 mEq/L (136-145) 02/15/23 08:00 Potassium 3.6 mEq/L (3.5-5.1) 02/15/23 08:00 Chloride 107 mEq/L (98-107) 02/15/23 08:00 Carbon Dioxide 30 mEq/L (21-32) 02/15/23 08:00 Anion Gap 5.6 mEq/L (5.0-15.0) 02/15/23 08:00 BUN 17 mg/dL (7-18) 02/15/23 08:00 Creatinine 0.74 mg/dL (0.55-1.02) 02/15/23 08:00 Est GFR (CKD-EPI) 79 ml/min (=/>90) L 02/15/23 08:00 Glucose 95 mg/dL (74-106) 02/15/23 08:00 Calcium 8.9 mg/dL (8.5-10.1) 02/15/23 08:00 Magnesium 2.0 mg/dL (1.6-2.4) 02/15/23 08:00 Albumin 3.5 g/dL (3.4-5.0) 02/15/23 08:00 Prealbumin 19.7 mg/dL (20-40) L 02/15/23 08:00 Urine Color Colorless (Yellow) 02/10/23 07:37 Urine Clarity Clear (Clear) 02/10/23 07:37 Urine pH 5.0 (5.0-7.0) 02/10/23 07:37 Ur Specific [place] 1.007 (1.005-1.030) 02/10/23 07:37 Glucose (UA)(Auto) Negative (Negative) 02/10/23 07:37 Urine Ketones Negative (Negative) 02/10/23 07:37 Urine Blood Negative (Negative) 02/10/23 07:37 Urine Nitrite Negative (Negative) 02/10/23 07:37 Urine Bilirubin Negative (Negative) 02/10/23 07:37 Urine Urobilinogen Normal (Normal) 02/10/23 07:37 Ur Leukocyte Esterase 75 [place]/uL (Negative) H 02/10/23 07:37 Urine RBC <5 /HPF (None Seen) 02/10/23 07:37 Urine WBC 5-10 /HPF (<5) 02/10/23 07:37 Ur Squamous Epith Cells <5 /HPF (None Seen) 02/10/23 07:37 Urine Bacteria None seen /HPF (<20) 02/10/23 07:37 Urine Mucus Slight /HPF (None Seen) 02/10/23 07:37 Urine Culture Reflexed Not needed 02/10/23 07:37 Urine Total Protein Negative (Negative) 02/10/23 07:37 SARS-CoV-2 Rap RNA(RT-PCR) Negative (NEGATIVE) 02/14/23 03:25 Weight: 114 lb 1.6 oz Wound Present: No Closed Surgical Incision Present: No Negative Pressure Wound Therapy Present: No Physician Update: Labs reviewed and are stable. She is doing very well and met goals and will go back to [facility] Today. BIMS 15, SLUMS 19. [facility] will continue with all therapy. WR 750', 15 steps, WC 250'. Will follow-up with ortho. 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 Please see the Rehabilitation Signature page for all necessary signatures.
[2023-02-16] MEDS: LIDOCAINE 4% PATCH TOP SCH (10:02)
== END 2023-02-16 14:55 | DRG 948 ==
LOC: 5TH 11:05
PROVIDERS: ADMIT Psychiatry & Neurology Neurology with Special Qualifications in Child Neurology; ATTEND Psychiatry & Neurology Neurology with Special Qualifications in Child Neurology
DX: R53.81 Other malaise (principal); I12.9 Hypertensive chronic kidney disease with stage 1 through stage 4 chronic kidney disease, or unspecified chronic kidney disease; N18.9 Chronic kidney disease, unspecified; E78.5 Hyperlipidemia, unspecified; I25.10 Atherosclerotic heart disease of native coronary artery without angina pectoris; G30.9 Alzheimer's disease, unspecified; F02.80 Dementia in other diseases classified elsewhere, unspecified severity, without behavioral disturbance, psychotic disturbance, mood disturbance, and anxiety; I48.91 Unspecified atrial fibrillation; Z79.01 Long term (current) use of anticoagulants; K21.9 Gastro-esophageal reflux disease without esophagitis; G20.C Parkinsonism, unspecified
CPT/HCPCS: 36415; 51702; 70450; 71045; 80048; 80076; 80307; 81001; 82040; 83735; 83880; 84100; 84134; 84484; 85025; 85610; 87086; 87088; 87635; 87804; 92523; 93005; 96374; 96375; 97110; 97112; 97116; 97129; 97161; 97163; 97165; 97530; 99285; G0378; J0696; J2001; J7030; J7040

== ENCOUNTER 2023-09-25 11:48 | Emergency (ER) | payer OTHER ==
[2023-09-25 13:13] LABS: Albumin 3.7 g/dL (3.4-5.0); Albumin/Globulin Ratio 1.1 (1.1-1.8); Anion Gap 6.3 mEq/L (5.0-15.0); Bilirubin Direct 0.2 mg/dL (0-0.2); Bilirubin Indirect, Calculated 0.4 mg/dL (0.2-0.8); Bilirubin Total 0.6 mg/dL (0.2-1.0); Globulin 3.3 g/dL (2.3-3.5); Magnesium 2.1 mg/dL (1.6-2.4); Potassium 3.3 mEq/L (3.5-5.1); Troponin High Sensitivity 8.9 pg/mL (<58.9)
--- NOTE | 2023-09-25 13:15 | RAD REPORT ---
EXAM DESCRIPTION: [facility] Single View09/25/2023 12:49 pm CLINICAL HISTORY: Hypertension COMPARISON: 2022 FINDINGS: The lungs appear clear of acute infiltrate. The heart is normal size IMPRESSION: No acute abnormalities displayed
[2023-09-25] MEDS ORDERED: HYDRALAZINE HCL 20 MG/ML VIAL ONE (13:17)
--- NOTE | 2023-09-25 13:17 | RAD REPORT ---
EXAM DESCRIPTION: CT - Head Brain Wo Cont - 09/25/2023 1:06 pm CLINICAL HISTORY: Emergency hypertension. Headache COMPARISON: 2022 TECHNIQUE: Computed axial tomography of the head was obtained. IV contrast was not requested. All CT scans are performed using dose optimization technique as appropriate and may include automated exposure control or mA/KV adjustment according to patient size. FINDINGS: An intracranial bleed is not seen The ventricles are normal in caliber No significant hypodense areas within the brain visualized No extra-axial fluid collection is noted. Fluid within the sinuses/ mastoids is not seen IMPRESSION: No acute intracranial abnormality is seen If patient's symptoms persist MRI of the brain would be recommended
[2023-09-25 14:03] LABS: Absolute Basophils 0.1 K/uL (0-0.5); Absolute Eosinophils 0.1 K/uL (0-0.5); Absolute Lymphocytes (CBC) 2.2 K/uL (0.7-4.9); Absolute Monocytes 0.7 K/uL (0.1-1.3); Basophils % 0.7 % (0-1.3); Eosinophils % 0.7 % (0-4.4); Hematocrit 41.1 % (36.0-45.0); Hemoglobin 13.6 g/dL (12.0-15.0); Lymphocytes % 27.2 % (15.3-44.8); MCH 29.4 pg (27.0-35.0); MCHC 33.1 g/dL (32.0-36.0); MCV 88.8 fL (80-100); MPV 8.3 fL (7.6-11.3); Monocytes % 8.4 % (3.3-12.3); Platelets 309 thou/uL (152-406); RBC Red Blood Cell Count 4.63 M/uL (3.86-4.86); Red Cell Distribution Width 16.2 % (12.1-15.2)
[2023-09-25 14:14] LABS: Protime INR 1.19
--- NOTE | 2023-09-25 14:17 | ER ---
Nurse's Notes [facility] Name: Leyda Ramos Age: 88 yrs Sex: Female : 1935 Arrival Date: 09/25/2023 Time: 11:48 Bed 7 Private MD: Diagnosis: Hypertensive urgency, resolved Presentation: 09/24 12:29 Chief complaint: EMS states: sent from [facility] for high BP, was 230 systolic at iw facility, down to 169/76 upon arrival to ER. 12:29 Acuity: EVELIO 3 iw 12:31 Initial Sepsis Screen: Does the patient meet any 2 criteria? No. Patient's initial iw sepsis screen is negative. Does the patient have a suspected source of infection? No. Patient's initial sepsis screen is negative. 12:31 Method Of Arrival: : [facility] iw 14:52 Coronavirus screen: At this time, the client does not indicate any symptoms associated ld1 with coronavirus-19. Ebola Screen: No symptoms or risks identified at this time. Risk Assessment: Do you want to hurt yourself or someone else? Patient reports no desire to harm self or others. Onset of symptoms was September 25, 2023. Historical: - Allergies: 12:19 Augmentin; ld1 12:19 Bactrim; ld1 12:19 Hydrocodone-Acetaminophen; ld1 12:19 PENICILLINS; ld1 - PMHx: 12:19 Alzheimer's disease; Hypertension; High Cholesterol; depressive disorder; GERD; leaking ld1 heart valve; Hypothyroidism; Hypercholesterolemia; Chronic pain; pelvic; GALLSTONES; chronic kidney disease; chronic kidney disease; - Immunization history:: Adult Immunizations up to date. - Infectious Disease History:: Denies. - Social history:: Smoking status: Patient denies any tobacco usage or history of. Screenin:30 [facility] ED Fall Risk Assessment (Adult) History of falling in the last 3 months, ld1 including since admission No falls in past 3 months (0 pts) Confusion or Disorientation No (0 pts) Intoxicated or Sedated No (0 pts) Impaired Gait No (0 pts) Mobility Assist Device Used No (0 pt) Altered Elimination No (0 pt) Score/Fall Risk Level 0 - 2 = Low Risk Oriented to surroundings, Maintained a safe environment, Educated pt \T\ family on fall prevention, incl call for assistance when getting out of bed, Assessed \T\ reinforced patient's understanding of fall precautions, Provided non-skid footwear, Hourly rounding (assess needs \T\ fall precautionary measures) done, Used ambulatory aids as needed (educated on \T\ assisted with), Used gait belt as appropriate. Abuse screen: Denies threats or abuse. Denies injuries from another. Nutritional screening: No deficits noted. Tuberculosis screening: No symptoms or risk factors identified. Assessment: 13:30 General: Appears in no apparent distress. comfortable, Behavior is calm, cooperative, ld1 appropriate for age. Pain: Denies pain. Neuro: Level of Consciousness is awake, alert, obeys commands, Oriented to person, place, time, situation. Cardiovascular: Capillary refill < 3 seconds Patient's skin is warm and dry. Respiratory: Airway is patent Respiratory effort is even, unlabored. GI: Abdomen is flat, non-distended. : No signs and/or symptoms were reported regarding the genitourinary system. EENT: No signs and/or symptoms were reported regarding the EENT system. Derm: No signs and/or symptoms reported regarding the dermatologic system. Musculoskeletal: No signs and/or symptoms reported regarding the musculoskeletal system. 14:24 Reassessment: Patient appears in no apparent distress at this time. Patient and/or iw family updated on plan of care and expected duration. Pain level reassessed. Patient is alert, oriented x 3, equal unlabored respirations, skin warm/dry/pink. pt will follow up with her PCP at [place] to adjust her BP meds. 14:52 Reassessment: Patient appears in no apparent distress at this time. Patient and/or ld1 family updated on plan of care and expected duration. Pain level reassessed. Vital Signs: 12:40 BP 166 / 75; Pulse 65; Resp 16; Temp 98.1; Pulse Ox 95% on R/A; iw 13:28 BP 146 / 53; Pulse 62; Resp 18; Pulse Ox 95% on R/A; ld1 14:22 BP 173 / 86; Pulse 76; Resp 16; Pulse Ox 95% ; iw ED Course: 12:18 Patient arrived in ED. em1 12:20 Provided Education on: plan of care. iw 12:24 All Ozuna MD is Attending Physician. sp3 12:27 Barbara Stahl, RN is Primary Nurse. iw 12:31 Triage completed. iw 12:51 XRAY Chest (1 view) In Process Unspecified. EDMS 13:07 CT Head Brain wo Cont In Process Unspecified. EDMS 13:30 Patient has correct armband on for positive identification. Placed in gown. Bed in low ld1 position. Call light in reach. Side rails up X2. Pulse ox on. NIBP on. Door closed. Noise minimized. Warm blanket given. 13:30 No provider procedures requiring assistance completed. ld1 13:30 Maintain EMS IV. Dressing intact. Good blood return noted. Site clean \T\ dry. Gauge \T\ ld 1 site: 20G RAC. 14:52 IV discontinued, intact, bleeding controlled, No redness/swelling at site. ld1 14:53 Arm band placed on right wrist. ld1 Administered Medications: 13:18 Drug: hydrALAZINE IVP 10 mg IVP once Route: IVP; Site: right antecubital; iw 14:00 Follow up: Response: No adverse reaction; Blood sugar is lowered iw Medication: 14:53 VIS not applicable for this client. ld1 Outcome: 14:16 Discharge ordered by . sp3 14:52 Discharged to home via wheelchair, with family, ld1 14:52 Condition: stable 14:52 Discharge instructions given to patient, family, Instructed on discharge instructions, follow up and referral plans. Demonstrated understanding of instructions, follow-up care, 14:53 Patient left the ED. ld1 Signatures: Dispatcher [employer] Barbara Anguiano, JOSÉ KUMAR iw Abelino Claudio em1 Arabella Ho RN RN ld1 All Ozuna MD MD sp3 Corrections: (The following items were deleted from the chart) 12:20 12:19 PMHx: chronic kidney disease, stage 3; ld1 ld1
--- NOTE | 2023-09-25 14:17 | EDPHYS ---
Physician Documentation [facility] Name: Leyda Ramos Age: 88 yrs Sex: Female : 1935 Arrival Date: 09/25/2023 Time: 11:48 Bed 7 Private MD: ED Physician All Ozuna HPI: 09/24 13:25 This 88 yrs old Female presents to ER via Unassigned with complaints of High Blood sp3 Pressure. 13:25 88-year-old female with history of Alzheimer disease, hypertension, hyperlipidemia sp3 presents from local assisted living for high blood pressure of 200 systolic there and was in the 160s for EMS on the way here. She denies any symptoms except for cramping in the right arm which has since resolved. She denies any headache, neck pain, chest pain, shortness of breath, left arm pain or left-sided body pain, syncope, near syncope, vomiting, diarrhea, abdominal pain, back pain, rash, bleeding, or any other signs or symptoms on ROS at this time.. Historical: - Allergies: 12:19 Augmentin; ld1 12:19 Bactrim; ld1 12:19 Hydrocodone-Acetaminophen; ld1 12:19 PENICILLINS; ld1 - PMHx: 12:19 Alzheimer's disease; Hypertension; High Cholesterol; depressive disorder; GERD; leaking ld1 heart valve; Hypothyroidism; Hypercholesterolemia; Chronic pain; pelvic; GALLSTONES; chronic kidney disease; chronic kidney disease; - Immunization history:: Adult Immunizations up to date. - Infectious Disease History:: Denies. - Social history:: Smoking status: Patient denies any tobacco usage or history of. ROS: 13:26 Constitutional: Negative for fever, chills, and weight loss, Eyes: Negative for injury, sp3 pain, redness, and discharge, ENT: Negative for injury, pain, and discharge, Neck: Negative for injury, pain, and swelling, Cardiovascular: Negative for chest pain, palpitations, and edema, Respiratory: Negative for shortness of breath, cough, wheezing, and pleuritic chest pain, Abdomen/GI: Negative for abdominal pain, nausea, vomiting, diarrhea, and constipation, : Negative for injury, bleeding, discharge, and swelling, MS/Extremity: Negative for injury and deformity, Skin: Negative for injury, rash, and discoloration, Neuro: Negative for headache, weakness, numbness, tingling, and seizure, Psych: Negative for depression, anxiety, suicide ideation, homicidal ideation, and hallucinations, Allergy/Immunology: Negative for hives, rash, and allergies, Endocrine: Negative for neck swelling, polydipsia, polyuria, polyphagia, and marked weight changes, Hematologic/Lymphatic: Negative for swollen nodes, abnormal bleeding, and unusual bruising, 13:26 All other systems are negative, Exam: 13:26 Constitutional: This is a well developed, well nourished patient who is awake, alert, sp3 and in no acute distress. Head/Face: Normocephalic, atraumatic. Eyes: Pupils equal round and reactive to light, extra-ocular motions intact. Lids and lashes normal. Conjunctiva and sclera are non-icteric and not injected. Cornea within normal limits. Periorbital areas with no swelling, redness, or edema. ENT: Nares patent. No nasal discharge, no septal abnormalities noted. External auditory canals are clear. Oropharynx with no redness, swelling, or masses, exudates, or evidence of obstruction, uvula midline. Mucous membranes moist. Neck: Trachea midline, no thyromegaly or masses palpated, and no cervical lymphadenopathy. Supple, full range of motion without nuchal rigidity, or vertebral point tenderness. No Meningismus. Chest/axilla: Normal chest wall appearance and motion. Nontender with no deformity. No lesions are appreciated. Cardiovascular: Regular rate and rhythm with a normal S1 and S2. No gallops, murmurs, or rubs. Normal PMI, no JVD. No pulse deficits. Respiratory: Lungs have equal breath sounds bilaterally, clear to auscultation and percussion. No rales, rhonchi or wheezes noted. No increased work of breathing, no retractions or nasal flaring. Abdomen/GI: Soft, non-tender, with normal bowel sounds. No distension or tympany. No guarding or rebound. No evidence of tenderness throughout. Back: No spinal tenderness. No costovertebral tenderness. Full range of motion. Skin: Warm, dry with normal turgor. Normal color with no rashes, no lesions, and no evidence of cellulitis. MS/ Extremity: Pulses equal, no cyanosis. Neurovascular intact. Full, normal range of motion. Neuro: Awake and alert, GCS 15, oriented to person, place, time, and situation. Cranial nerves II-XII grossly intact. Motor strength 5/5 in all extremities. Sensory grossly intact. Cerebellar exam normal. Normal gait. Psych: Awake, alert, with orientation to person, place and time. Behavior, mood, and affect are within normal limits. 13:26 ECG was reviewed by the Attending Physician. EKG demonstrates normal sinus rhythm at 63 bpm with normal intervals, normal QRS, normal axis, normal axis ST segments without evidence of acute ischemia. Vital Signs: 12:40 BP 166 / 75; Pulse 65; Resp 16; Temp 98.1; Pulse Ox 95% on R/A; iw 13:28 BP 146 / 53; Pulse 62; Resp 18; Pulse Ox 95% on R/A; ld1 14:22 BP 173 / 86; Pulse 76; Resp 16; Pulse Ox 95% ; iw MDM: 12:34 Patient medically screened. sp3 13:27 Data reviewed: vital signs, nurses notes, EMS record, jail records, lab test sp3 result(s), EKG, radiologic studies. ED course: 58-year-old female with PMH above now with high blood pressure since resolved. Clinically have ruled out acute coronary syndrome, CVA/TIA spectrum, sepsis, shock or any other critical process. CT scan of the head is negative and chest x-ray, EKG and blood work demonstrate no endorgan damage or other abnormality. Blood pressure was briefly in the 180s to 190s in the ED and the milligrams of hydralazine has been ordered. Will reevaluate blood pressure and safely discharge patient home as patient has no indication of endorgan damage from her high blood pressure.. 14:15 ED course: Full workup negative and patient is neurologically stable. BP at 146/53. We sp3 will safely discharge patient home at this time.. 09/24 12:35 Order name: Basic Metabolic Panel; Complete Time: 13:23 sp3 09/24 12:35 Order name: CBC with Diff; Complete Time: 14:14 sp3 09/24 12:35 Order name: LFT's; Complete Time: 13:23 sp3 09/24 12:35 Order name: Magnesium; Complete Time: 13:23 sp3 09/24 12:35 Order name: NT PRO-BNP; Complete Time: 13:23 sp3 09/24 12:35 Order name: PT-INR; Complete Time: 14:14 sp3 09/24 12:35 Order name: Troponin HS; Complete Time: 13:23 sp3 09/24 12:35 Order name: XRAY Chest (1 view); Complete Time: 13:23 sp3 09/24 12:57 Order name: CT Head Brain wo Cont; Complete Time: 13:23 sp3 09/24 12:35 Order name: Cardiac monitoring; Complete Time: 12:41 sp3 09/24 12:35 Order name: EKG - Nurse/Tech; Complete Time: 12:41 sp3 09/24 12:35 Order name: IV Saline Lock; Complete Time: 12:41 sp3 09/24 12:35 Order name: Labs collected and sent; Complete Time: 12:41 sp3 09/24 12:35 Order name: O2 Per Protocol; Complete Time: 12:41 sp3 09/24 12:35 Order name: O2 Sat Monitoring; Complete Time: 12:41 sp3 09/24 13:24 Order name: Recheck B/P; Complete Time: 13:30 sp3 Administered Medications: 13:18 Drug: hydrALAZINE IVP 10 mg IVP once Route: IVP; Site: right antecubital; iw 14:00 Follow up: Response: No adverse reaction; Blood sugar is lowered iw Disposition Summary: 09/25/23 14:16 Discharge Ordered Notes: Location: Home sp3 Condition: Stable sp3 Diagnosis - Hypertensive urgency, resolved sp3 Followup: sp3 - With: Private Physician - When: Upon discharge from the Emergency Department - Reason: Continuance of care Discharge Instructions: - Discharge Summary Sheet sp3 - Hypertension, Adult sp3 Forms: - Medication Reconciliation Form sp3 - Antibiotic Education sp3 - Prescription Opioid Use sp3 - Patient Portal Instructions sp3 - Leadership Thank You Letter sp3 Signatures: Dispatcher [employer] Barbara Anguiano RN RN iw Arabella Ho RN RN ld1 All Ozuna MD MD sp3 Corrections: (The following items were deleted from the chart) 12:20 12:19 PMHx: chronic kidney disease, stage 3; ld1 ld1 12:36 12:36 BASIC METABOLIC PANEL+C.LAB.BRZ ordered. EDMS EDMS 12:36 12:36 CBC+H.LAB.BRZ ordered. EDMS EDMS 12:36 12:36 HEPATIC FUNCTION+C.LAB.BRZ ordered. EDMS EDMS 12:36 12:36 MAGNESIUM+C.LAB.BRZ ordered. EDMS EDMS 12:36 12:36 PROBNP+C.LAB.BRZ ordered. EDMS EDMS 12:36 12:36 PROTIME (+INR)+COAG.LAB.BRZ ordered. EDMS EDMS 12:36 12:36 Troponin High Sensitivity+C.LAB.BRZ ordered. EDMS EDMS 12:36 12:36 Chest Single View+RAD.RAD.BRZ ordered. EDMS EDMS 12:57 12:57 Head Brain Wo Cont+CT.RAD.BRZ ordered. EDMS EDMS
[2023-09-25 15:20] VITALS: BP 173/86; TEMP 98.1; O2SAT 95
== END 2023-09-25 14:53 | disposition home or self-care (01) ==
LOC: ER 11:48
DX: I16.0 Hypertensive urgency (principal); I12.9 Hypertensive chronic kidney disease with stage 1 through stage 4 chronic kidney disease, or unspecified chronic kidney disease; N18.9 Chronic kidney disease, unspecified; G30.9 Alzheimer's disease, unspecified; F02.80 Dementia in other diseases classified elsewhere, unspecified severity, without behavioral disturbance, psychotic disturbance, mood disturbance, and anxiety; Z88.0 Allergy status to penicillin; Z88.1 Allergy status to other antibiotic agents; Z88.5 Allergy status to narcotic agent
CPT/HCPCS: 85025; 80048; 36415; 83735; 85610; 80076; 84484; 83880; 70450; 71045; J0360; 93005

== ENCOUNTER 2024-04-20 13:14 | Observation (INO) | payer OTHER ==
[2024-04-20 13:43] LABS: Absolute Basophils 0.1 K/uL (0-0.5); Absolute Eosinophils 0.1 K/uL (0-0.5); Absolute Lymphocytes (CBC) 2.4 K/uL (0.7-4.9); Absolute Monocytes 0.6 K/uL (0.1-1.3); Absolute Neutrophil 6.6 K/uL (1.8-8.0); Basophils % 0.5 % (0-1.3); Eosinophils % 0.6 % (0-4.4); Hematocrit 46.2 % (36.0-45.0); Hemoglobin 15.9 g/dL (12.0-15.0); Lymphocytes % 25.1 % (15.3-44.8); MCH 31.6 pg (27.0-35.0); MCHC 34.3 g/dL (32.0-36.0); MCV 91.9 fL (80-100); MPV 7.6 fL (7.6-11.3); Monocytes % 5.9 % (3.3-12.3); Neutrophils % 67.9 % (41.7-73.7); Nucleated Red Blood Cells % 0.1 % (0-0); Platelets 308 thou/uL (152-406); RBC Red Blood Cell Count 5.03 M/uL (3.86-4.86); Red Cell Distribution Width 15.2 % (12.1-15.2)
[2024-04-20 14:02] LABS: Albumin 4.3 g/dL (3.4-5.0); Albumin/Globulin Ratio 1.3 (1.1-1.8); Anion Gap 11.2 mEq/L (5.0-15.0); Globulin 3.3 g/dL (2.3-3.5); Potassium 3.2 mEq/L (3.5-5.1); Protein, Total 7.6 g/dL (6.4-8.2)
[2024-04-20 14:14] LABS: Specific Gravity 1.006 (1.005-1.030); Sqamous Epithelial None Seen /HPF (None Seen); Urine Bacteria None Seen /HPF (<20); Urine Bilirubin NEGATIVE (Negative); Urine Blood Negative (Negative); Urine Clarity Clear (Clear); Urine Color Light-Yellow (Yellow); Urine Culture Reflex Order NOT NEEDED; Urine Glucose NEGATIVE (Negative); Urine Ketones NEGATIVE (Negative); Urine Microscopic Reflex YN ORDER UMIC; Urine Nitrite NEGATIVE (Negative); Urine Protein NEGATIVE (Negative); Urine RBC <5 /HPF (None Seen); Urine Urobilinogen Normal (Normal); Urine WBC <5 /HPF (<5)
[2024-04-20 14:16] LABS: PT Prothrombin Time 11.5 SECONDS (9.4-12.5); PTT, Activated Partial Thromb 30.3 SECONDS (24.3-36.9); Protime INR 1.1
[2024-04-20 14:29] LABS: SARS-CoV-2 Antigen CONTROL BLUE LINE VIS/BG OK; SARS-CoV-2 Antigen Rapid Res Negative (Negative)
--- NOTE | 2024-04-20 14:46 | RAD REPORT ---
EXAM: Chest Single View HISTORY: COUGH COMPARISON: None. FINDINGS: LUNGS/PLEURA: The lungs are clear. No pleural effusions or pneumothorax. No pulmonary edema. MEDIASTINUM: The mediastinal silhouette is within normal limits. CARDIAC: The cardiac silhouette is within normal limits. UPPER ABDOMEN: No significant abnormality. BONES: No acute abnormality. LINES/TUBES/OTHER: N/A IMPRESSION: No evidence of acute cardiopulmonary disease.
--- NOTE | 2024-04-20 15:25 | RAD REPORT ---
EXAMINATION: CT HEAD WITHOUT CONTRAST CLINICAL INDICATION: Female, 89 years old.AMS TECHNIQUE: Axial CT images from the skull base to the vertex without intravenous contrast. Coronal an d sagittal reformatted images were created from the data set. One or more of the following dose reduction techniques were used: Automated exposure control, adjustment of the mA and/or kV according to patient size, and/or iterative reconstruction. Unless otherwise specified, incidental findings do not require dedicated imaging follow-up. [id number]. COMPARISON: 02/07/2024 FINDINGS: INTRACRANIAL: No acute intracranial hemorrhage. No hydrocephalus. No mass effect or midline shift. Mi ld chronic small vessel ischemic changes.Mild cerebral atrophy. VASCULATURE: No visualized abnormalities in the arteries or dural venous sinuses. SCALP/SKULL: No significant soft tissue or osseous abnormalities. SINUSES: The visualized paranasal sinuses and mastoid air cells are predominantly clear. IMPRESSION: No acute intracranial abnormality.
--- NOTE | 2024-04-20 15:31 | RAD REPORT ---
EXAMINATION: CT ABDOMEN AND PELVIS WITH CONTRAST CLINICAL INDICATION: Female, 89 years old.abd pain, nausea TECHNIQUE: CT abdomen and pelvis was performed, after the administration of IV contrast, as per [facility] protocol. Axial, sagittal and coronal reconstructions were obtained. One or more of the following dose reduction techniques were used: Automated exposure control, adjustment of the mA and/o r kV according to patient size, and/or iterative reconstruction. Unless otherwise specified, incidental findings do not require dedicated imaging follow-up. [id number]. COMPARISON: 10/18/2020 FINDINGS: LOWER CHEST: No acute process identified.No significant pericardial effusion. Multivessel coronary ar isabell calcifications. Mild cardiomegaly. UPPER GI: No significant abnormality. LIVER: No significant focal abnormality. GALLBLADDER/BILE DUCTS: No biliary ductal dilatation.? PANCREAS: Atrophy, but otherwise unremarkable. SPLEEN: Unremarkable. ADRENALS: No adrenal masses. KIDNEYS AND URETERS: No hydronephrosis. Right lower pole renal lesion consistent with a cyst. ABDOMINAL AORTA AND OTHER VESSELS: Moderate atherosclerotic changes without aortic aneurysm. There is a severe focal stenosis of the infrarenal abdominal aorta. PERITONEUM: No abnormal free fluid. No free air. LYMPH NODES: No pathologic lymphadenopathy. ABDOMINAL WALL: Unremarkable SMALL BOWEL/COLON: Small bowel has normal course and caliber. No colonic wall thickening or pericolon ic inflammatory changes.Normal appendix. Severe diverticulosis without diverticulitis. URINARY BLADDER: Underdistended but grossly unremarkable. REPRODUCTIVE ORGANS: No pathologic process. MUSCULOSKELETAL: No acute or suspicious osseous abnormality. ADDITIONAL FINDINGS: None. IMPRESSION: No acute or significant abnormalities seen in the abdomen or pelvis. Incidental findings as noted abo ve.
--- NOTE | 2024-04-20 15:46 | ER ---
Nurse's Notes [facility] Name: Leyda Ramos Age: 89 yrs Sex: Female : 1935 Arrival Date: 04/20/2024 Time: 13:14 Bed 4 Private MD: Diagnosis: Altered mental status, unspecified;Muscle weakness (generalized) Presentation: 04/20 13:17 Chief complaint: EMS states: Uncontrollable shaking that started 2 hours ago. BP hb 230/108, HR 90s, T 98.2, 20g FA. Coronavirus screen: At this time, the client does not indicate any symptoms associated with coronavirus-19. Ebola Screen: No symptoms or risks identified at this time. Initial Sepsis Screen: Does the patient meet any 2 criteria? No. Patient's initial sepsis screen is negative. Does the patient have a suspected source of infection? No. Patient's initial sepsis screen is negative. Risk Assessment: Do you want to hurt yourself or someone else? Patient reports no desire to harm self or others. Onset of symptoms was April 20, 2024. 13:17 Method Of Arrival: EMS: [facility] hb 13:17 Acuity: EVELIO 3 hb Historical: - Allergies: 13:19 Augmentin; hb 13:19 Bactrim; hb 13:19 Hydrocodone-Acetaminophen; hb 13:19 PENICILLINS; hb - PMHx: 13:19 Hypothyroidism; depressive disorder; Chronic pain; pelvic; Alzheimer's disease; hb GALLSTONES; insomnia; leaking heart valve; Hypercholesterolemia; GERD; High Cholesterol; Hypertension; kidney disease; - Immunization history:: Adult Immunizations up to date. - Infectious Disease History:: Denies. - Social history:: Smoking status: Patient denies any tobacco usage or history of. - Family history:: not pertinent. - Hospitalizations: : No recent hospitalization is reported. Screenin:20 [facility] ED Fall Risk Assessment (Adult) History of falling in the last 3 months, aa5 including since admission Yes- fall prone (multiple falls) (3 pts) Confusion or Disorientation Yes (5 pts) Intoxicated or Sedated No (0 pts) Impaired Gait Yes (1 pt) Mobility Assist Device Used Yes (1 pt) Altered Elimination Yes (1 pt) Score/Fall Risk Level 3 or more points = High Risk Oriented to surroundings, Maintained a safe environment, Educated pt \\T\\ family on fall prevention, incl call for assistance when getting out of bed, Assessed \\T\\ reinforced patient's understanding of fall precautions. Abuse screen: No signs of abuse noted. 13:20 Nutritional screening: No deficits noted. Tuberculosis screening: No symptoms or risk aa5 factors identified. Assessment: 13:20 General: Appears comfortable, Behavior is calm, cooperative, Reports chills for 0-12 aa5 hours. Pain: Denies pain. 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 Speech is normal, Facial symmetry appears normal. Cardiovascular: Heart tones S1 S2 present Rhythm is regular. Respiratory: Airway is patent Respiratory effort is even, unlabored, Respiratory pattern is regular, symmetrical. GI: Abdomen is non-distended, Bowel sounds present X 4 quads. Abd is soft and non tender X 4 quads. Patient currently denies nausea, vomiting. : brief noted. EENT: No signs and/or symptoms were reported regarding the EENT system. Derm: Skin is pink, warm \\T\\ dry. Musculoskeletal: No signs and/or symptoms reported regarding the musculoskeletal system. 14:33 Reassessment: Pt sleeping, pt's granddaughter at bedside . aa5 15:30 Reassessment: Pt back from CT scan. . aa5 15:50 Reassessment: Pt sleeping. . aa5 16:11 Reassessment: Pt cleaned of urinary incontinence, bed linens changed and clean brief aa5 applied. . Neuro: Level of Consciousness is awake, obeys commands, confused, Oriented to person, place. Respiratory: Airway is patent Respiratory effort is even, unlabored, Respiratory pattern is regular, symmetrical. Derm: Skin is pink, warm \\T\\ dry. 17:25 Neuro: Level of Consciousness is awake, obeys commands, confused, Oriented to person, aa5 place. Respiratory: Airway is patent Respiratory effort is even, unlabored, Respiratory pattern is regular, symmetrical. Derm: Skin is pink, warm \\T\\ dry. 19:42 Reassessment: Patient and/or family updated on plan of care and expected duration. Pain br2 level reassessed. Patient is alert, oriented x 3, equal unlabored respirations, skin warm/dry/pink. PT SITTING IN BED EATING WITH GRAND-DAUGHTER AT BEDSIDE. DENIES PAIN, STATES FEELING BETTER, NO MORE "SHAKING". PT IS AAOX4 AT THIS TIME Patient states feeling better. Patient states symptoms have improved. 21:00 Reassessment: Patient and/or family updated on plan of care and expected duration. Pain br2 level reassessed. Patient is alert, oriented x 3, equal unlabored respirations, skin warm/dry/pink. 23:00 Reassessment: Patient and/or family updated on plan of care and expected duration. Pain br2 level reassessed. Patient is alert, oriented x 3, equal unlabored respirations, skin warm/dry/pink. Vital Signs: 13:17 BP 187 / 102; Pulse 95; Resp 17; Temp 98; Pulse Ox 98% on R/A; Pain 5/10; hb 14:10 Temp 98.3(O); aa5 14:34 BP 199 / 92; Pulse 84; Resp 18 S; Pulse Ox 98% on R/A; aa5 15:55 BP 176 / 95; Pulse 93; Resp 14; Temp 98.8(O); Pulse Ox 88% on R/A; aa5 15:56 Pulse Ox 98% on 2 lpm NC; aa5 17:25 BP 185 / 82; Pulse 82; Resp 18 S; Temp 98(O); Pulse Ox 97% on 2 lpm NC; aa5 19:43 BP 136 / 62; Pulse 74; Resp 15; Pulse Ox 98% ; Pain 0/10; br2 21:00 BP 132 / 60; Pulse 62; Resp 18; Pulse Ox 96% on R/A; br2 23:00 BP 109 / 63; Pulse 67; Resp 18; Pulse Ox 94% ; br2 13:17 Pain Scale: Adult hb 19:43 Pain Scale: Adult br2 ED Course: 13:16 Patient arrived in ED. hb 13:16 Bob Lam MD is Attending Physician. rn 13:18 Jayda Tolbert RN is Primary Nurse. aa5 13:19 Triage completed. hb 13:19 Arm band placed on. hb 13:20 Patient has correct armband on for positive identification. Placed in gown. Bed in low aa5 position. Call light in reach. Side rails up X2. Client placed on continuous cardiac and pulse oximetry monitoring. NIBP monitoring applied. nuclear monitoring technician on. Pulse ox on. NIBP on. 13:20 Maintain EMS IV. Site clean \\T\\ dry. Gauge \\T\\ site: 20G to R FA . aa 5 13:34 Initial lab(s) drawn, by me, sent to lab. aa5 13:34 First set of blood cultures drawn by me. aa5 13:35 Inserted saline lock: 20 gauge in right forearm, using aseptic technique. Flushed with aa5 10 mL NS. 13:52 EKG done, by ED staff, reviewed by Bob Lam MD. kb4 13:57 Second set of blood cultures drawn by me. aa5 14:00 Straight cath inserted, using sterile technique, 14 Fr. Specimen obtained. Returned aa5 clear yellow urine. Patient tolerated well. SENT TO LAB. 14:00 Inserted saline lock: 22 gauge in left forearm, using aseptic technique. aa5 14:02 COVID swab sent to lab. Flu and/or RSV swab sent to lab. aa5 14:32 Chest Single View XRAY In Process Unspecified. EDMS 14:35 No provider procedures requiring assistance completed. aa5 15:18 CT Head Brain wo Cont In Process Unspecified. EDMS 15:22 CT Abd/Pelvis - IV Contrast Only In Process Unspecified. EDMS 15:45 Lucretia Jacobs MD is Hospitalizing Provider. rn 16:34 Repeat lactate drawn and sent to lab. aa5 19:00 Report received from CHANDU. br2 19:08 Report given to JOSÉ Stratton and JOSÉ German. aa5 23:32 Patient admitted, IV remains in place. br2 Administered Medications: 15:55 Drug: Cefepime IVPB 1 grams IVPB at 200 ml/hr once over 30 mins; (mix in NS 100 mL) aa5 Route: IVPB; Rate: 200 ml/hr; Infused Over: 30 mins; Site: left forearm; 16:09 Follow up: Response: No adverse reaction aa5 16:15 Follow up: Response: No adverse reaction aa5 Medication: 14:35 VIS not applicable for this client. aa5 Outcome: 15:46 Decision to Hospitalize by Provider. rn 23:32 Admitted to Med/surg accompanied by nurse, via stretcher, room 423, br2 23:32 Condition: stable 23:32 Instructed on the need for admit, Demonstrated understanding of instructions, 23:33 Patient left the ED. br2 Signatures: Dispatcher [employer] Bob Vail MD MD rn Calderon, Audri RN RN aa5 Maya Fonseca RN RN Chayito Stein RN RN br2 Rita Tillman kb4 Corrections: (The following items were deleted from the chart) 17:26 17:25 Pulse 82bpm; Resp 18bpm; Spontaneous; Pulse Ox 97% 2 lpm Nasal Cannula; Temp 98F aa5 Oral; aa5
--- NOTE | 2024-04-20 15:46 | EDPHYS ---
Physician Documentation [facility] Name: Leyda Ramos Age: 89 yrs Sex: Female : 1935 Arrival Date: 04/20/2024 Time: 13:14 Bed 4 Private MD: ED Physician Bob Lam HPI: 04/20 13:43 This 89 yrs old Female presents to ER via EMS with complaints of SHAKING. rn 13:43 Patient reports was [facility] [employer] and began shaking uncontrollably. Was awake through rn entire episode. No history of seizures. Nurse bystanders checked temperature and was afebrile. Noted to be hypertensive so 911 called for possible stroke. Patient denies any focal neurological deficits. Patient reports just did not feel well. Reports mild cough and abdominal pain with nausea. No vision changes. No speech changes or difficulty.. Onset: The symptoms/episode began/occurred today. The patient has not experienced similar symptoms in the past. The patient has not recently seen a physician. Historical: - Allergies: 13:19 Augmentin; hb 13:19 Bactrim; hb 13:19 Hydrocodone-Acetaminophen; hb 13:19 PENICILLINS; hb - PMHx: 13:19 Hypothyroidism; depressive disorder; Chronic pain; pelvic; Alzheimer's disease; hb GALLSTONES; insomnia; leaking heart valve; Hypercholesterolemia; GERD; High Cholesterol; Hypertension; kidney disease; - Immunization history:: Adult Immunizations up to date. - Infectious Disease History:: Denies. - Social history:: Smoking status: Patient denies any tobacco usage or history of. - Family history:: not pertinent. - Hospitalizations: : No recent hospitalization is reported. ROS: 13:43 Constitutional: Negative for fever, chills, and weight loss, Neck: Negative for injury, rn pain, and swelling, Cardiovascular: Negative for chest pain, palpitations, and edema, Respiratory: Positive for cough, negative for shortness of breath Abdomen/GI: Positive for abdominal pain with nausea Back: Negative for injury and pain, : Negative for injury, bleeding, discharge, and swelling, MS/Extremity: Negative for injury and deformity, Skin: Negative for injury, rash, and discoloration, Neuro: Positive for generalized weakness, no focal weakness or numbness. No seizure. No headache. Exam: 13:43 Constitutional: This is a well developed, well nourished patient who is awake, alert, rn and in no acute distress. Seems anxious Head/Face: Normocephalic, atraumatic. Cardiovascular: Regular rate and rhythm. No pulse deficits. Respiratory: No increased work of breathing, no retractions or nasal flaring. Abdomen/GI: Soft, no focal tenderness. No distention. Mild guarding in mid abdomen MS/ Extremity: Pulses equal, no cyanosis. Neuro: Awake and alert, GCS 15, oriented to person, place, time, and situation. Cranial nerves II-XII grossly intact. Motor strength 4/5 in all extremities. Sensory grossly intact. 17:35 ECG was reviewed by the Attending Physician. rn Vital Signs: 13:17 BP 187 / 102; Pulse 95; Resp 17; Temp 98; Pulse Ox 98% on R/A; Pain 5/10; hb 14:10 Temp 98.3(O); aa5 14:34 BP 199 / 92; Pulse 84; Resp 18 S; Pulse Ox 98% on R/A; aa5 15:55 BP 176 / 95; Pulse 93; Resp 14; Temp 98.8(O); Pulse Ox 88% on R/A; aa5 15:56 Pulse Ox 98% on 2 lpm NC; aa5 17:25 BP 185 / 82; Pulse 82; Resp 18 S; Temp 98(O); Pulse Ox 97% on 2 lpm NC; aa5 19:43 BP 136 / 62; Pulse 74; Resp 15; Pulse Ox 98% ; Pain 0/10; br2 21:00 BP 132 / 60; Pulse 62; Resp 18; Pulse Ox 96% on R/A; br2 23:00 BP 109 / 63; Pulse 67; Resp 18; Pulse Ox 94% ; br2 13:17 Pain Scale: Adult hb 19:43 Pain Scale: Adult br2 MDM: 13:16 Medical Screening Exam initiated rn 15:44 Differential Diagnosis altered mental status, flu, COVID, dehydration, urinary tract rn infection, bacteremia. Data reviewed: vital signs, nurses notes, lab test result(s), EKG, radiologic studies, CT scan, plain films, and as a result, I will admit patient. Consideration of Admission/Observation Patient was admitted/placed on observation. Escalation of care including admission/observation considered. Counseling: I had a detailed discussion with the patient and/or guardian regarding the historical points, exam findings, and any diagnostic results supporting the discharge/admit diagnosis, lab results, radiology results, the need for further work-up and treatment in the hospital. ED course: No acute findings and workup. No infectious etiology identified at this time. CT head including CT abdomen pelvis also negative. Chest x-ray negative for pneumonia per my interpretation. Flu and COVID-negative. Given uncontrollable shaking/rigors in an elderly patient with altered mental status and elevated lactic acid, will admit to hospitalist service. Cefepime administered empirically after blood cultures and lactic acid obtained.. 04/20 13:18 Order name: Blood Culture Adult (2) 04/20 13:18 Order name: CBC with Diff; Complete Time: 14:08 04/20 13:18 Order name: CMP; Complete Time: 14:08 04/20 13:18 Order name: Lactate w/ 2H reflex if indic.; Complete Time: 15:34 04/20 13:18 Order name: Protime (+inr); Complete Time: 15:34 04/20 13:18 Order name: Ptt, Activated; Complete Time: 15:34 04/20 13:18 Order name: Urinalysis w/ reflexes; Complete Time: 15:34 04/20 13:18 Order name: Flu; Complete Time: 15:34 04/20 13:18 Order name: SARS-COV-2 Antigen Rapid; Complete Time: 15:34 04/20 14:30 Order name: Ghost Lactate-NO COLLECT Timer; Complete Time: 16:33 [facility] 04/20 16:58 Order name: Lactate Sepsis 2 HR Follow-up [facility] 04/20 17:04 Order name: Lactate w/ 2H reflex if indic. [facility] 04/20 17:04 Order name: Urinalysis w/ reflexes [facility] 04/20 17:04 Order name: Basic Metabolic Panel [facility] 04/20 17:04 Order name: Basic Metabolic Panel [facility] 04/20 17:04 Order name: CBC with Automated Diff [facility] 04/20 17:04 Order name: CBC with Automated Diff [facility] 04/20 17:04 Order name: Magnesium [facility] 04/20 17:04 Order name: Magnesium [facility] 04/20 13:18 Order name: Chest Single View XRAY; Complete Time: 15:34 04/20 13:18 Order name: CT Abd/Pelvis - IV Contrast Only; Complete Time: 15:34 rn 04/20 13:18 Order name: CT Head Brain wo Cont; Complete Time: 15:34 rn 04/20 13:18 Order name: Cardiac monitoring; Complete Time: 14:08 rn 04/20 13:18 Order name: EKG - Nurse/Tech; Complete Time: 13:52 rn 04/20 13:18 Order name: IV Saline Lock - Large Bore; Complete Time: 14:08 rn 04/20 13:18 Order name: Labs collected and sent; Complete Time: 14:08 rn 04/20 13:18 Order name: O2 Per Protocol; Complete Time: 14:08 rn 04/20 13:18 Order name: O2 Sat Monitoring; Complete Time: 14: rn 04/20 13:18 Order name: Vital Signs; Complete Time: 14: rn 04/20 14:08 Order name: Straight Cath - Urine; Complete Time: 14:08 aa5 EC:35 Rate is 97 beats/min. Rhythm is regular. QRS [place] is Normal. [place] interval is normal. QRS rn interval is normal. QT interval is normal. No Q waves. T waves are Normal. Clinical impression: NSR w/ Non-specific ST/T Changes. Interpreted by me. Reviewed by me. Administered Medications: 15:55 Drug: Cefepime IVPB 1 grams IVPB at 200 ml/hr once over 30 mins; (mix in NS 100 mL) aa5 Route: IVPB; Rate: 200 ml/hr; Infused Over: 30 mins; Site: left forearm; 16:09 Follow up: Response: No adverse reaction aa5 16:15 Follow up: Response: No adverse reaction aa5 Disposition Summary: 04/20/24 15:46 Hospitalization Ordered Notes: Hospitalization Status: Observation rn Provider: Lucretia Jacobs rn Condition: Stable rn Problem: new rn Symptoms: have improved rn Bed/Room Type: Standard rn Location: Telemetry/MedSurg (observation)(04/20/24 21:57) rv1 Room Assignment: 423(04/20/24 21:57) rv1 Diagnosis - Altered mental status, unspecified rn - Muscle weakness (generalized) rn Forms: - Medication Reconciliation Form rn - SBAR form rn - Leadership Thank You Letter rn Signatures: Dispatcher [employer] EDMS Bob Lam MD MD rn Calderon, JOSÉ Montelongo RN aa5 Maya Fonseca, Flakita Jasso RN rv1 Corrections: (The following items were deleted from the chart) 13:18 13:18 BLOOD CULTURE*+BA.LAB.BRZ ordered. EDMS EDMS 13:18 13:18 CBC+H.LAB.BRZ ordered. EDMS EDMS 13:18 13:18 COMPREHENSIVE METABOLIC PANEL+C.LAB.BRZ ordered. EDMS EDMS 13:18 13:18 LACTATE+C.LAB.BRZ ordered. EDMS EDMS 13:18 13:18 PROTIME (+INR)+COAG.LAB.BRZ ordered. EDMS EDMS 13:18 13:18 PTT, ACTIVATED+COAG.LAB.BRZ ordered. EDMS EDMS 13:18 13:18 Urinalysis+U.LAB.BRZ ordered. EDMS EDMS 13:18 13:18 Chest Single View+RAD.RAD.BRZ ordered. EDMS EDMS 14:24 13:18 Accucheck ordered. rn aa5 19:08 15:46 Telemetry/MedSurg (observation) rn rv1 19:08 15:46 rn rv1 21:57 19:08 BR ER HOLD rv1 rv1 21:57 19:08 ERHOLD- rv1 rv1
[2024-04-20] MEDS ORDERED: CEFEPIME 1 GM/VIAL ONE (15:53)
[2024-04-20] MEDS ORDERED: NA CHLORIDE 0.9% 100 ML ONE (15:53)
[2024-04-20] MEDS ORDERED: ACETAMINOPHEN 500 MG TAB PO PRN (17:01)
[2024-04-20] MEDS ORDERED: ONDANSETRON 4 MG/2 ML VIAL IV PRN (17:01)
--- NOTE | 2024-04-20 17:09 | P.HP ---
Certification for Inpatient Patient admitted to: Observation With expected LOS: <2 Midnights <Kezia Gonzalez - Last Filed: 04/20/24 18:18> Patient History Date of Service: 04/20/24 Reason for admission: Lactic acidosis History of Present Illness: 89-year-old female with past medical history of Hypothyroidism; depressive disorder; Chronic pain; Alzheimer's disease; GALLSTONES; insomnia; leaking heart valve; Hypercholesterolemia; GERD; High Cholesterol; Hypertension; kidney disease presents to the emergency room via EMS from assisted living with tremors. She called EMS because of hypertensive urgency, on arrival no focal deficits, NIH stroke scale 0, she reports tremor symptoms started today while at [employer]. She reports associated generalized weakness, no reported fall, no reported fever, cough, shortness of breath, chest pain, nausea vomiting diarrhea. ER evaluation noted elevated lactic acidosis, chest x-ray is unremarkable, laboratory evaluation, no leukocytosis, elevated lactic 2.1, BMP mild hypokalemia, plan to admit for hypertensive urgency, lactic acidosis, fine motor tremors, - Past Medical/Surgical History Diabetic: No -: Hypertension -: Hyperlipidemia -: Carotid arterial disease -: Atrial fibrillation on chronic anticoagulation therapy -: GERD -: Pudental nerve ablation -: Surgical hypothyroidism -: 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 -: Hearing loss -: Carotid enterectomy -: Thyroidectomy Psychosocial/ Personal History: Patient lives at [facility] - Social History Alcohol use: No CD- Drugs: No Caffeine use: No <Kezia Gonzalez - Last Filed: 04/20/24 18:18> Date of Service: 04/21/24 - Family History Family History: Reviewed- Non-Contributory - Family History Father History Unknown: Yes -: Heart disease - Social History Smoking Status: Former smoker Alcohol use: No CD- Drugs: No <Lucretia Jacobs - Last Filed: 04/21/24 05:07> Allergies amoxicillin [From Augmentin] Allergy (Verified 02/09/23 12:24) Rash clavulanic acid [From Augmentin] Allergy (Verified 02/09/23 12:24) Rash Penicillins Allergy (Verified 02/09/23 12:24) Rash sulfamethoxazole [From Bactrim] Allergy (Verified 02/09/23 12:24) Itching trimethoprim [From Bactrim] Allergy (Verified 02/09/23 12:24) Itching hydrocodone Adverse Reaction (Verified 02/09/23 12:24) Insomnia Home Medications: Clopidogrel Bisulfate [Plavix*] 75 mg PO DAILY 09/28/20 Atorvastatin Calcium [Lipitor] 80 mg PO BEDTIME 01/28/23 Docusate [Colace Cap*] 100 mg PO DAILY PRN 01/28/23 Levothyroxine Sodium 50 mcg PO 0500 01/28/23 Donepezil HCl 10 mg PO BEDTIME 02/01/23 Aspirin Chewable [Aspirin Chewable*] 81 mg PO DAILY 02/07/24 Duloxetine HCl 30 mg PO DAILY 02/07/24 Isosorbide Dinit [Isordil*] 20 mg PO TID 02/07/24 Latanoprost Ophth [Xalatan 0.005%*] 1 drop EACH EYE BEDTIME 02/07/24 Multivitamin with Minerals [Multivitamins with Minerals] 1 each PO DAILY 02/07/24 Acetaminophen [Tylenol] 650 mg PO Q4HP PRN 02/08/24 Loperamide [Imodium*] 200 mg PO SEECOM 02/08/24 Valacyclovir [Valtrex*] 500 mg PO DAILY 02/08/24 Nitrofurantoin Macrocrystal [Nitrofurantoin] 50 mg PO BEDTIME 30 Days #30 cap 02/11/24 lisinopriL [Prinivil*] 5 mg PO BEDTIME 30 Days #30 tab 02/11/24 Review of Systems 10-point ROS is otherwise unremarkable <Kezia Gonzalez - Last Filed: 04/20/24 18:18> Physical Examination - Physical Exam General: Alert, In no apparent distress, Oriented x3 HEENT: Atraumatic, Normocephalic, PERRLA Neck: 2+ carotid pulse no bruit, JVD not distended Respiratory: Clear to auscultation bilaterally, Normal air movement Cardiovascular: Normal pulses, Regular rate/rhythm, Normal S1 S2 Capillary refill: <2 Seconds Gastrointestinal: Normal bowel sounds, Soft and benign Musculoskeletal: No clubbing, No swelling, Other (Unsteady gait) Integumentary: No rashes, No breakdown, No significant lesion Neurological: Normal speech, Normal strength at 5/5 x4 extr, Cranial nerves 3-12 intact, Other (fine motor tremers) Lymphatics: No axilla or inguinal lymphadenopathy - Studies Laboratory Data (last 24 hrs) 04/20/24 04/20/24 04/20/24 13:57 13:34 13:34 WBC 9.70 Hgb 15.9 H Hct 46.2 H Plt Count 308 PT 11.5 INR 1.10 APTT 30.3 Sodium 136 Potassium 3.2 L BUN 10 Creatinine 0.88 Glucose 92 Total Bilirubin 1.0 AST 32 ALT 48 Alkaline Phosphatase 65 Microbiology Data (last 24 hrs): 04/20/24 14:02 Nasopharnyx Influenza Type A Antigen Screen - Final 04/20/24 14:02 Nasopharnyx Influenza Type B Antigen Screen - Final <Kezia Gonzalez - Last Filed: 04/20/24 18:18> - Studies Laboratory Data (last 24 hrs) 04/20/24 04/20/24 04/20/24 13:57 13:34 13:34 WBC 9.70 Hgb 15.9 H Hct 46.2 H Plt Count 308 PT 11.5 INR 1.10 APTT 30.3 Sodium 136 Potassium 3.2 L BUN 10 Creatinine 0.88 Glucose 92 Total Bilirubin 1.0 AST 32 ALT 48 Alkaline Phosphatase 65 Microbiology Data (last 24 hrs): 04/20/24 14:02 Nasopharnyx Influenza Type A Antigen Screen - Final 04/20/24 14:02 Nasopharnyx Influenza Type B Antigen Screen - Final <Lucretia Jacobs - Last Filed: 04/21/24 05:07> Assessment and Plan - Problems (Diagnosis) (1) Hypertensive urgency Current Visit: Yes Status: Acute (2) Lactic acidosis Current Visit: Yes Status: Acute (3) Tremors of nervous system Current Visit: Yes Status: Acute (4) Hypokalemia Current Visit: No Status: Acute - Plan Assessment Hypertensive urgency Telemetry, as needed antihypertensives, Resume appropriate home Lactic acidosis IV fluids, cefepime, UA negative, Chest x-ray unremarkable, Trend urine, blood culture Hypokalemia Trend electrolytes replace. Fine motor tremor new onset Will treat with IV antibiotics, see if symptoms resolve, Consider consult the Dr. Gonsalez in the a.m. Hypertension Hyperlipidemia Hypothyroidism Dementia Resume appropriate home Full code DVT SCDs Diet cardiac Disposition patient resides in assisted living, good family support Discharge Plan: Home - Advance Directives Does patient have a Living Will: No Does patient have a Durable POA for Healthcare: No - Code Status/Comfort Care Code Status: Full Code Critical Care: No Time Spent Managing Pts Care (In Minutes): 55 <Kezia Gonzalez - Last Filed: 04/20/24 18:18> Date of Service: 04/20/24 Chart has been reviewed. Events of the last 24 hours have been noted. Case discussed with KRISH. I performed a substantial part of the MDM during this patient's care today. I personally made or approved the documented management plan and acknowledge its risk of complications. I agree with the findings and documentation provided in the KRISH's notes Patient is doing well. Patient had episodes of tremors. Possibly seizure. Will continue with antiepileptics and arrange for discharge planning. Anticipate discharge over next 24 hours. Outpatient follow-up with neurology. <Lucretia Jacobs - Last Filed: 04/21/24 05:07>
[2024-04-20] MEDS: METOPROLOL TARTRATE 5 MG/5 ML INJ IV STA (17:16)
[2024-04-20 20:28] VITALS: BMI 33.2
[2024-04-20] MEDS: NA CHLORIDE 0.9% 1,000 ML IV SCH (20:31)
[2024-04-20] MEDS ORDERED: NA CHLORIDE 0.9% 1,000 ML ONE (20:32)
[2024-04-21] MEDS: DONEPEZIL HCL 5 MG TAB PO SCH (00:22)
[2024-04-21] MEDS: ISOSORBIDE DINIT 20 MG TAB PO SCH (00:22)
[2024-04-21] MEDS: CEFEPIME 1 GM in NA CHLORIDE 0.9% 100 ML IV SCH (00:22)
[2024-04-21] MEDS: ATORVASTATIN 80 MG TAB PO ONE (00:22)
[2024-04-21] MEDS ORDERED: DOCUSATE NA 100 MG CAP PO PRN (05:09)
[2024-04-21] MEDS ORDERED: LOPERAMIDE HCL 2 MG CAPSULE PO PRN ×2 (06:00→10:39)
[2024-04-21] MEDS ORDERED: LOPERAMIDE HCL 2 MG CAPSULE PO SCH (06:00)
[2024-04-21 06:29] LABS: Absolute Basophils 0.1 K/uL (0-0.5); Absolute Eosinophils 0.1 K/uL (0-0.5); Absolute Lymphocytes (CBC) 1.2 K/uL (0.7-4.9); Absolute Monocytes 0.6 K/uL (0.1-1.3); Basophils % 0.9 % (0-1.3); Eosinophils % 1.4 % (0-4.4); Hematocrit 39.7 % (36.0-45.0); Hemoglobin 13.6 g/dL (12.0-15.0); Lymphocytes % 17.1 % (15.3-44.8); MCH 31.8 pg (27.0-35.0); MCHC 34.2 g/dL (32.0-36.0); MCV 93.1 fL (80-100); MPV 7.9 fL (7.6-11.3); Monocytes % 8.4 % (3.3-12.3); Neutrophils % 72.2 % (41.7-73.7); Nucleated Red Blood Cells % 0.3 % (0-0); Platelets 280 thou/uL (152-406); RBC Red Blood Cell Count 4.26 M/uL (3.86-4.86); Red Cell Distribution Width 15.4 % (12.1-15.2)
[2024-04-21 06:51] LABS: Anion Gap 8.2 mEq/L (5.0-15.0); Magnesium 2.2 mg/dL (1.6-2.4); Potassium 3.2 mEq/L (3.5-5.1)
[2024-04-21] MEDS: METOPROLOL TARTRATE 5 MG/5 ML INJ IV PRN (07:43)
[2024-04-21] MEDS: ASPIRIN 81 MG CHEWABLE TABLET PO SCH (08:27)
[2024-04-21] MEDS: DULOXETINE 30 MG CAP PO SCH (08:27)
[2024-04-21] MEDS: VALACYCLOVIR 500 MG TAB PO SCH (08:27)
[2024-04-21] MEDS: levETIRAcetam 500 MG in NA CHLORIDE 0.9% 100 ML IV SCH (08:27)
[2024-04-21] MEDS: CLOPIDOGREL 75 MG TABLET PO SCH (08:28)
[2024-04-21] MEDS: POTASSIUM 25 MEQ EFFERV TAB PO ONE (08:28)
[2024-04-21] MEDS ORDERED: HYDRALAZINE HCL 20 MG/ML VIAL IV PRN (08:41)
[2024-04-21 09:07] VITALS: TEMP 98.4
--- NOTE | 2024-04-21 09:19 | P.DS ---
Discharge Date: 04/21/24 Disposition: ROUTINE DISCHARGE Discharge Condition: GOOD Reason for Admission: Lactic acidosis Brief History of Present Illness: 89-year-old female with past medical history of Hypothyroidism; depressive disorder; Chronic pain; Alzheimer's disease; GALLSTONES; insomnia; leaking heart valve; Hypercholesterolemia; GERD; High Cholesterol; Hypertension; kidney disease presents to the emergency room via EMS from assisted living with tremors. She called EMS because of hypertensive urgency, on arrival no focal deficits, NIH stroke scale 0, she reports tremor symptoms started today while at [employer]. She reports associated generalized weakness, no reported fall, no reported fever, cough, shortness of breath, chest pain, nausea vomiting diarrhea. ER evaluation noted elevated lactic acidosis, chest x-ray is unremarkable, laboratory evaluation, no leukocytosis, elevated lactic 2.1, BMP mild hypokalemia, plan to admit for hypertensive urgency, lactic acidosis, fine motor tremors, Hospital Course: Patient is doing well during hospital stay. At this time patient clinically stable for discharge. Blood cultures are negative. Procalcitonin is negative. Patient will be discharged to [facility] Vital Signs/Physical Exam: Temp Pulse Resp BP Pulse Ox 98.4 F 72 18 207/80 H 97 04/21/24 08:00 04/21/24 08:00 04/21/24 08:00 04/21/24 08:00 04/21/24 08:00 General: Alert, In no apparent distress, Oriented x3 Laboratory Data at Discharge: WBC 7.00 thou/uL (4.3-10.9) 04/21/24 06:08 Hgb 13.6 g/dL (12.0-15.0) D 04/21/24 06:08 Hct 39.7 % (36.0-45.0) 04/21/24 06:08 Plt Count 280 thou/uL (152-406) 04/21/24 06:08 PT 11.5 SECONDS (9.4-12.5) 04/20/24 13:57 INR 1.10 04/20/24 13:57 APTT 30.3 SECONDS (24.3-36.9) 04/20/24 13:57 Sodium 142 mEq/L (136-145) D 04/21/24 06:08 Potassium 3.2 mEq/L (3.5-5.1) L 04/21/24 06:08 BUN 11 mg/dL (7-18) 04/21/24 06:08 Creatinine 0.77 mg/dL (0.55-1.02) 04/21/24 06:08 Glucose 105 mg/dL (74-106) 04/21/24 06:08 Phosphorus 4.0 mg/dL (2.5-4.9) 04/21/24 06:08 Magnesium 2.2 mg/dL (1.6-2.4) 04/21/24 06:08 Total Bilirubin 1.0 mg/dL (0.2-1.0) 04/20/24 13:34 AST 32 U/L (15-37) 04/20/24 13:34 ALT 48 U/L (13-56) 04/20/24 13:34 Alkaline Phosphatase 65 U/L (45-117) 04/20/24 13:34 Home Medications: Clopidogrel Bisulfate [Plavix*] 75 mg PO DAILY 09/28/20 Atorvastatin Calcium [Lipitor] 80 mg PO BEDTIME 01/28/23 Docusate [Colace Cap*] 100 mg PO DAILY PRN 01/28/23 Levothyroxine Sodium 50 mcg PO 0500 01/28/23 Donepezil HCl 10 mg PO BEDTIME 02/01/23 Aspirin Chewable [Aspirin Chewable*] 81 mg PO DAILY 02/07/24 Duloxetine HCl 30 mg PO DAILY 02/07/24 Isosorbide Dinit [Isordil*] 20 mg PO TID 02/07/24 Latanoprost Ophth [Xalatan 0.005%*] 1 drop EACH EYE BEDTIME 02/07/24 Multivitamin with Minerals [Multivitamins with Minerals] 1 each PO DAILY 02/07/24 Acetaminophen [Tylenol] 650 mg PO Q4HP PRN 02/08/24 Loperamide [Imodium*] 200 mg PO SEECOM 02/08/24 Valacyclovir [Valtrex*] 500 mg PO DAILY 02/08/24 Nitrofurantoin Macrocrystal [Nitrofurantoin] 50 mg PO BEDTIME 30 Days #30 cap 02/11/24 lisinopriL [Prinivil*] 5 mg PO BEDTIME 30 Days #30 tab 02/11/24 levETIRAcetam [Keppra Tab] 500 mg PO Q12H #60 tab 04/21/24 New Medications: levETIRAcetam [Keppra Tab] 500 mg PO Q12H #60 tab Physician Discharge Instructions: OK TO DC IV AND DC HOME ([facility]) FOLLOW-UP WITH PRIMARY CARE PROVIDER IN 1-2 WEEKS FOLLOW-UP WITH Neurology IN 1-2 WEEKS-pt needs follow-up for seizure evaluation RETURN TO THE ER IF symptoms worsen CALL DR. VEGA AT [phone] IF ANY QUESTIONS REGARDING HOSPITAL STAY. PLEASE CALL THE FLOOR AT [phone] IF ANY MEDICATION OR NURSING QUESTIONS. Diet: AHA Activity: Fall precautions Followup: Gabby Shi MD [Primary Care Provider] - 1-2 Weeks Time spent managing pt's care (in minutes): 35
[2024-04-21] MEDS: lisinopriL 10 MG TAB PO SCH (09:53)
[2024-04-21 10:47] VITALS: O2SAT 97
[2024-04-21] MEDS: cloNIDine HCL 0.1 MG TAB PO ONE (12:00)
[2024-04-21 12:42] VITALS: BP 156/85
[2024-04-21] MEDS ORDERED: LATANOPROST 0.005% 2.5ML OPTH OPTH SCH (21:00)
[2024-04-21] MEDS ORDERED: ATORVASTATIN 80 MG TAB PO SCH (21:00)
[2024-04-22] MEDS ORDERED: LEVOTHYROXINE SOD 0.05 MG TABLET PO SCH (05:00)
--- NOTE | 2024-04-23 12:39 | EKG ---
Test Date: 2024-04-20 Test Time: 13:41:37 Instructional Support Specialist: SIENA MEASUREMENT RESULTS: Intervals: Rate: 97 [place]: 184 QRSD: 82 QT: 358 QTc: 454 [place]: P: 47 [place]: 184 QRS: -17 T: 62 INTERPRETIVE STATEMENTS: Normal sinus rhythm Left ventricular hypertrophy Nonspecific ST and T wave abnormality Abnormal ECG Compared to ECG 02/09/2024 06:59:45 Atrial fibrillation no longer present Ventricular premature complex(es) no longer present Left-axis deviation no longer present ST (T wave) deviation still present Electronically Signed On 04-23-24 12:33:39 FARE REGISTER REPAIRER by Arsalan Llamas
== END 2024-04-21 12:23 ==
LOC: ER 13:14 → ERHOLD 16:56 → 4TH 22:11
PROVIDERS: ADMIT Hospitalist; ATTEND Internal Medicine
DX: I16.0 Hypertensive urgency (principal); E87.20 Acidosis, unspecified; G25.2 Other specified forms of tremor; E87.6 Hypokalemia; E03.9 Hypothyroidism, unspecified; F32.A Depression, unspecified; G89.29 Other chronic pain; G30.9 Alzheimer's disease, unspecified; F02.80 Dementia in other diseases classified elsewhere, unspecified severity, without behavioral disturbance, psychotic disturbance, mood disturbance, and anxiety; K80.20 Calculus of gallbladder without cholecystitis without obstruction; G47.00 Insomnia, unspecified; E78.00 Pure hypercholesterolemia, unspecified; K21.9 Gastro-esophageal reflux disease without esophagitis; I10 Essential (primary) hypertension; N18.9 Chronic kidney disease, unspecified; R53.1 Weakness; I48.11 Longstanding persistent atrial fibrillation; Z79.01 Long term (current) use of anticoagulants; Z87.891 Personal history of nicotine dependence; Z11.52 Encounter for screening for COVID-19
CPT/HCPCS: 87040 ×2; 85025 ×2; 81001; 80048; 36415; 83735; 84100; 85610; 83605 ×2; 85730; 80053; 84145; 87804 ×2; 70450; 74177; 71045; 87811; J1953; J0360; J7030; J0692 ×3; 51702; 93005; 96374; 99285; G0378

== ENCOUNTER 2024-12-19 15:56 | Observation (INO) | payer OTHER ==
[2024-12-19 16:29] LABS: Hematocrit 37.8 % (36.0-45.0); Hemoglobin 12.9 g/dL (12.0-15.0); MCH 32.0 pg (27.0-35.0); MCHC 34.2 g/dL (32.0-36.0); MCV 93.5 fL (80-100); RBC Red Blood Cell Count 4.05 M/uL (3.86-4.86); White Blood Count 6.30 thou/uL (4.3-10.9)
[2024-12-19 16:30] LABS: Absolute Lymphocytes (CBC) 1.5 K/uL (0.7-4.9); MPV 7.5 fL (7.6-11.3); Nucleated RBC Absolute Count 0.0 (0-0); Nucleated Red Blood Cells % 0.1 % (0-0)
[2024-12-19 16:36] LABS: PT Prothrombin Time 13.2 SECONDS (10-13.0); Protime INR 1.17
--- NOTE | 2024-12-19 16:45 | RAD REPORT ---
EXAMINATION: Head Brain Wo Cont CLINICAL INDICATION: Female, 89 years old.Confused;Declining state TECHNIQUE: Axial CT images from the skull base to the vertex without intravenous contrast. Coronal an d sagittal reformatted images were created from the data set. One or more of the following dose reduction techniques were used: Automated exposure control, adjustment of the mA and/or kV according to patient size, and/or iterative reconstruction. Unless otherwise specified, incidental findings do not require dedicated imaging follow-up. [id number]. COMPARISON: 10/26/2024 FINDINGS: INTRACRANIAL: No acute intracranial hemorrhage. No acute large vascular territory infarct. No hydroce phalus. No mass effect or midline shift. Mild chronic small vessel ischemic changes.Mild cerebral atrophy. VASCULATURE: No visualized abnormalities in the arteries or dural venous sinuses. SCALP/SKULL: No calvarial fracture identified. No acute soft tissue abnormality. SINUSES: The visualized paranasal sinuses are mostly clear. No significant mastoid fluid. IMPRESSION: No acute intracranial abnormality.
[2024-12-19 16:54] LABS: ALT/SGPT 41 U/L (13-56); Albumin 3.5 g/dL (3.4-5.0); Albumin/Globulin Ratio 1.1 (1.1-1.8); Alkaline Phosphatase 76 U/L (45-117); Anion Gap 7.9 mEq/L (5.0-15.0); BUN Blood Urea Nitrogen 15 mg/dL (7-18); Globulin 3.1 g/dL (2.3-3.5); Glucose Level 116 mg/dL (74-106); NT PRO-BNP 458 pg/mL (<450); Troponin High Sensitivity 5.7 pg/mL (<58.9)
[2024-12-19 16:57] LABS: AST/SGOT 29 U/L (15-37); Bilirubin Indirect, Calculated 0.4 mg/dL (0.2-0.8); Magnesium 2.3 mg/dL (1.6-2.4); Potassium 3.9 mEq/L (3.5-5.1)
[2024-12-19 17:59] LABS: Urine Microscopic Reflex YN NO UMIC
--- NOTE | 2024-12-19 18:22 | RAD REPORT ---
Procedure: Chest Single View HISTORY: Cough COMPARISON: 2023 FINDINGS: The lungs appear clear of acute infiltrate. No significant pleural effusion noted. The heart is mildly enlarged. IMPRESSION: No acute abnormality is displayed.
[2024-12-19 18:33] LABS: Influenza A Ag Negative; Influenza B Ag Negative; SARS-CoV-2 Antigen Rapid Res Negative (Negative)
--- NOTE | 2024-12-19 18:46 | ER ---
Nurse's Notes [facility] Name: Leyda Ramos Age: 89 yrs Sex: Female : 1935 Arrival Date: 12/19/2024 Time: 15:56 Bed 3 Private MD: Diagnosis: Weakness;Repeated falls;Adverse effect of unspecified drugs, medicaments and biological substances Presentation: 12/19 15:59 Chief complaint: EMS states: toned out to [place] for a lethargic patient. Normally me1 A\\T\\Ox4, chatty, energetic. Today for EMS patient was difficult to arouse, does answer questions appropriately but is very drowsy. Patient did fall last night but did not hit her head, no c/o pain from fall- does take plavix. States, "I just don't feel good.". Coronavirus screen: Client denies travel out of the [place] in the last 14 days. Ebola Screen: No symptoms or risks identified at this time. Initial Sepsis Screen: Does the patient meet any 2 criteria? No. Patient's initial sepsis screen is negative. Does the patient have a suspected source of infection? No. Patient's initial sepsis screen is negative. Risk Assessment: Do you want to hurt yourself or someone else? Patient reports no desire to harm self or others. Onset of symptoms is unknown. 15:59 Method Of Arrival: EMS: [facility] 15:59 Acuity: EVELIO 3 me1 Triage Assessment: 16:06 General: Appears in no apparent distress. ill, Behavior is cooperative, drowsy, me1 listless. Pain: Denies pain. EENT: No signs and/or symptoms were reported regarding the EENT system. Neuro: Level of Consciousness is awake, alert, obeys commands, Oriented to person, place, time, situation, Appropriate for age. Cardiovascular: Patient's skin is warm and dry. Respiratory: Airway is patent Respiratory effort is even, unlabored, Respiratory pattern is regular, symmetrical. GI: No signs and/or symptoms were reported involving the gastrointestinal system. : No signs and/or symptoms were reported regarding the genitourinary system. Derm: Skin is intact, is healthy with good turgor, Skin is normal. Musculoskeletal: Circulation, motion, and sensation intact. Range of motion: intact in all extremities, Reports generalized weakness and malaise. Historical: - Allergies: 16:06 Augmentin; me1 16:06 Bactrim; me1 16:06 Hydrocodone-Acetaminophen; me1 16:06 PENICILLINS; me1 - PMHx: 16:06 Alzheimer's disease; Chronic pain; pelvic; depressive disorder; GALLSTONES; GERD; High me1 Cholesterol; Hypercholesterolemia; Hypertension; Hypothyroidism; insomnia; kidney disease; leaking heart valve; - Immunization history:: Adult Immunizations up to date. - Infectious Disease History:: Denies. - Social history:: Smoking status: Patient denies any tobacco usage or history of. Screenin:08 [facility] ED Fall Risk Assessment (Adult) History of falling in the last 3 months, me1 including since admission Yes- single mechanical fall (1 pt) Confusion or Disorientation No (0 pts) Intoxicated or Sedated No (0 pts) Impaired Gait Yes (1 pt) Mobility Assist Device Used Yes (1 pt) Altered Elimination No (0 pt) Score/Fall Risk Level 0 - 2 = Low Risk Maintained a safe environment, Provided non-skid footwear, Hourly rounding (assess needs \\T\\ fall precautionary measures) done. Abuse screen: Denies threats or abuse. Nutritional screening: No deficits noted. Tuberculosis screening: No symptoms or risk factors identified. Assessment: 16:08 General: See triage assessment. me1 19:30 General: Appears in no apparent distress. comfortable, Behavior is calm, cooperative. lg3 Pain: Denies pain. Neuro: Renner Agitation-Sedation Scale (RASS): -1 Drowsy Level of Consciousness is awake, confused, Oriented to person, place. Cardiovascular: No deficits noted. Denies chest pain, shortness of breath, Capillary refill < 3 seconds Clubbing of nail beds is absent JVD is absent Patient's skin is warm and dry. Respiratory: No deficits noted. Airway is patent Respiratory effort is even, unlabored, Respiratory pattern is regular, symmetrical. GI: No signs and/or symptoms were reported involving the gastrointestinal system. Abdomen is flat, non-distended. : No signs and/or symptoms were reported regarding the genitourinary system. EENT: No deficits noted. No signs and/or symptoms were reported regarding the EENT system. Derm: No deficits noted. No signs and/or symptoms reported regarding the dermatologic system. Skin is intact, is thin, Skin is dry, Skin is normal, Skin temperature is warm. Musculoskeletal: No deficits noted. Circulation, motion, and sensation intact. Range of motion: intact in all extremities. 21:43 Reassessment: Patient appears in no apparent distress at this time. No changes from lg3 previously documented assessment. Patient and/or family updated on plan of care and expected duration. Pain level reassessed. 23:13 Reassessment: Patient appears in no apparent distress at this time. No changes from lg3 previously documented assessment. Patient and/or family updated on plan of care and expected duration. Pain level reassessed. Patient denies pain at this time. Vital Signs: 15:59 BP 128 / 61; Pulse 62; Resp 17; Temp 98.4; Pulse Ox 95% ; Weight 53.52 kg; Height 5 ft. me1 0 in. ; Pain 0/10; 17:00 BP 149 / 67; Pulse 60; Resp 18; Pulse Ox 96% ; me1 18:00 BP 158 / 66; Pulse 62; Resp 14; Pulse Ox 94% on R/A; me1 19:30 BP 163 / 65; Pulse 66; Resp 16 S; Pulse Ox 96% on R/A; lg3 21:42 BP 130 / 52; Pulse 58; Resp 15 S; Pulse Ox 95% on R/A; lg3 23:13 BP 142 / 65; Pulse 63; Resp 16 S; Pulse Ox 96% on R/A; lg3 15:59 Body Mass Index 23.05 (53.52 kg, 152.4 cm) me1 15:59 Pain Scale: Adult nm1 ED Course: 15:57 Patient arrived in ED. sb4 15:57 Loli Bella PA-C is PHCP. sb4 15:57 Jim Fonseca MD is Attending Physician. sb4 16:05 Triage completed. me1 16:06 Arm band placed on Patient placed in an exam room. me1 16:08 Patient has correct armband on for positive identification. Bed in low position. Call nm1 light in reach. Side rails up X2. Provided Education on: POC. Verbalized understanding.. Client placed on continuous cardiac and pulse oximetry monitoring. NIBP monitoring applied. vehicle monitor technician on. Pulse ox on. NIBP on. 16:08 No provider procedures requiring assistance completed. Maintain EMS IV. Dressing me1 intact. Good blood return noted. Site clean \\T\\ dry. Gauge \\T\\ site: 20g LFA. Flushed with 10 mL NS. 16:24 Basic Metabolic Panel Sent. me1 16:24 CBC with Diff Sent. me1 16:25 LFT's Sent. me1 16:25 Magnesium Sent. me1 16:25 NT PRO-BNP Sent. me1 16:25 PT-INR Sent. me1 16:35 Head Brain Wo Cont CT In Process Unspecified. EDMS 17:03 Edith Carnes, RN is Primary Nurse. me1 17:09 XRAY Chest (1 view) In Process Unspecified. EDMS 17:17 Initial lab(s) drawn, by me, sent to lab. EKG done, by ED staff, reviewed by Loli me1 Shayne PETTIT. 18:12 COVID-19 Ag + Flu A+B Ag Sent. me1 18:12 COVID swab sent to lab. Flu and/or RSV swab sent to lab. me1 18:46 Teresa Kelly MD is Hospitalizing Provider. sb4 19:30 Door closed. Noise minimized. Warm blanket given. Pillow given. Family accompanied lg3 patient. 19:30 purewick placed. lg3 23:15 Patient admitted, IV remains in place. lg3 Administered Medications: No medications were administered Medication: 16:08 VIS not applicable for this client. me1 Outcome: 18:46 Decision to Hospitalize by Provider. sb4 23:14 Admitted to Med/surg accompanied by tech, via stretcher, room 207, lg3 23:14 Condition: stable 23:14 Instructed on the need for admit, 23:15 Patient left the ED. lg3 Signatures: Dispatcher [employer] Marely Nur, RN RN lg3 Loli Bella, DATC PAJulio CésarC sb4 Edith Carnes, RN RN me1 Corrections: (The following items were deleted from the chart) 16:07 16:06 Home Meds: latanoprost 0.005 % ophthalmic (eye) drops 1 drop every evening for me1 both eyes; both eyes; me1
--- NOTE | 2024-12-19 18:46 | EDPHYS ---
Physician Documentation [facility] Name: Leyda Ramos Age: 89 yrs Sex: Female : 1935 Arrival Date: 12/19/2024 Time: 15:56 Bed 3 Private MD: ED Physician Jim Fonseca HPI: 12/19 17:23 This 89 yrs old Female presents to ER via EMS with complaints of General Weakness. sb4 17:23 Home health nurse called EMS because patient sleepier and less responsive than usual. sb4 They state that she did sustain a fall yesterday, but that is not unusual for her. They deny any head trauma. Patient has no complaints. Is sleepy, alert to verbal stimuli, oriented x 3. Historical: - Allergies: 16:06 Augmentin; me1 16:06 Bactrim; me1 16:06 Hydrocodone-Acetaminophen; me1 16:06 PENICILLINS; me1 - PMHx: 16:06 Alzheimer's disease; Chronic pain; pelvic; depressive disorder; GALLSTONES; GERD; High me1 Cholesterol; Hypercholesterolemia; Hypertension; Hypothyroidism; insomnia; kidney disease; leaking heart valve; - Immunization history:: Adult Immunizations up to date. - Infectious Disease History:: Denies. - Social history:: Smoking status: Patient denies any tobacco usage or history of. ROS: 17:23 Constitutional: Negative for fever, chills, and weight loss, sb4 17:23 All other systems are negative, Exam: 17:23 Head/Face: Normocephalic, atraumatic. Eyes: Extra-ocular motions intact. Periorbital sb4 areas with no swelling, redness, or edema. Cardiovascular: Regular rate and rhythm with a normal S1 and S2. Respiratory: No increased work of breathing, no retractions or nasal flaring. Abdomen/GI: Soft, non-tender, no distension. Skin: Warm, dry with normal turgor. Normal color with no rashes, no lesions, and no evidence of cellulitis. 17:23 Constitutional: The patient appears in no acute distress, awake, 17:23 Eyes: Pupils: pinpoint, bilaterally, 17:23 ENT: Mouth: Oral mucosa: dry, 17:23 Neuro: Orientation: to person, place, time \T\ situation. Mentation: responsive to voice able to follow commands, slow to respond, Motor: moves all fours, Vital Signs: 15:59 BP 128 / 61; Pulse 62; Resp 17; Temp 98.4; Pulse Ox 95% ; Weight 53.52 kg; Height 5 ft. me1 0 in. ; Pain 0/10; 17:00 BP 149 / 67; Pulse 60; Resp 18; Pulse Ox 96% ; me1 18:00 BP 158 / 66; Pulse 62; Resp 14; Pulse Ox 94% on R/A; me1 19:30 BP 163 / 65; Pulse 66; Resp 16 S; Pulse Ox 96% on R/A; lg3 21:42 BP 130 / 52; Pulse 58; Resp 15 S; Pulse Ox 95% on R/A; lg3 23:13 BP 142 / 65; Pulse 63; Resp 16 S; Pulse Ox 96% on R/A; lg3 15:59 Body Mass Index 23.05 (53.52 kg, 152.4 cm) me1 15:59 Pain Scale: Adult me1 MDM: 15:57 Medical Screening Exam initiated sb4 18:20 Differential diagnosis: UTI, Dehydration, CVA, dementia, medication reaction. Data sb4 reviewed: vital signs, nurses notes, EMS record, [facility] records, lab test result(s), EKG, radiologic studies, CT scan, plain films, I have discussed the patient's presentation/case with the attending Emergency Department Physician; and as a result, I will. Historians other than the Patient: Granddaughter states that patient has been getting sleepy like this secondary to her Keppra. States that she was prescribed it a while back because they thought she might of had a seizure, but grandmother does not think that she did have 1. They have an appointment with neurology to discuss coming off of the medication. 12/19 15:58 Order name: UA Rfx Jarod Cult if indicated; Complete Time: 18:01 4 12/19 15:58 Order name: Basic Metabolic Panel; Complete Time: 17:03 4 12/19 15:58 Order name: CBC with Diff; Complete Time: 16:30 sb4 12/19 15:58 Order name: LFT's; Complete Time: 17:03 4 12/19 15:58 Order name: Magnesium; Complete Time: 17:03 4 12/19 15:58 Order name: NT PRO-BNP; Complete Time: 17:03 sb4 12/19 15:58 Order name: PT-INR; Complete Time: 16:41 12/19 15:58 Order name: Troponin HS; Complete Time: 17:03 12/19 18:02 Order name: COVID-19 Ag + Flu A+B Ag; Complete Time: 18:37 sb4 12/19 21:40 Order name: Basic Metabolic Panel [facility] 12/19 21:40 Order name: Basic Metabolic Panel [facility] 12/19 21:40 Order name: Basic Metabolic Panel [facility] 12/19 21:40 Order name: Basic Metabolic Panel [facility] 12/19 21:40 Order name: Comprehensive Metabolic Panel [facility] 12/19 21:40 Order name: Comprehensive Metabolic Panel [facility] 12/19 21:40 Order name: Comprehensive Metabolic Panel [facility] 12/19 21:40 Order name: Comprehensive Metabolic Panel [facility] 12/19 21:40 Order name: Magnesium [facility] 12/19 21:40 Order name: Magnesium [facility] 12/19 21:40 Order name: Magnesium [facility] 12/19 21:40 Order name: Magnesium [facility] 12/19 15:58 Order name: Head Brain Wo Cont CT; Complete Time: 16:48 sb12/19 15:58 Order name: XRAY Chest (1 view); Complete Time: 18:24 12/19 21:34 Order name: Physical Therapy Consult [facility] 12/19 15:58 Order name: Cardiac monitoring; Complete Time: 17:16 12/19 15:58 Order name: EKG - Nurse/Tech; Complete Time: 17:16 12/19 15:58 Order name: IV Saline Lock; Complete Time: 16:24 12/19 15:58 Order name: Labs collected and sent; Complete Time: 16:24 sb12/19 15:58 Order name: O2 Per Protocol; Complete Time: 16:24 sb12/19 15:58 Order name: O2 Sat Monitoring; Complete Time: 16:24 sb4 EC:16 Rate is 61 beats/min. Rhythm is regular, Normal Sinus Rhythm. [place] interval is normal at sb4 154 msec. QRS interval is normal at 92 msec. QT interval is prolonged at 424 msec. No Q waves. T waves are Normal. Clinical impression: Normal ECG. Interpreted by me. Reviewed by me. Administered Medications: No medications were administered Disposition Summary: 12/19/24 18:46 Hospitalization Ordered Notes: Hospitalization Status: Observation sb4 Provider: Teresa Kelly sb4 Location: Telemetry/MedSurg (observation) sb4 Condition: Stable sb4 Problem: new sb4 Symptoms: are unchanged sb4 Bed/Room Type: Standard sb4 Room Assignment: 207(12/19/24 21:38) vk Diagnosis - Weakness sb4 - Repeated falls sb4 - Adverse effect of unspecified drugs, medicaments and biological substances sb4 Forms: - Medication Reconciliation Form sb4 - SBAR form sb4 - Leadership Thank You Letter sb4 Signatures: Dispatcher [employer] EDMS Loli Bella PA-C PA-C sb4 Edith Carnes RN RN me1 Katalina Anderson vk Corrections: (The following items were deleted from the chart) 15:59 15:59 BASIC METABOLIC PANEL+C.LAB.BRZ ordered. EDMS EDMS 15:59 15:59 CBC+H.LAB.BRZ ordered. EDMS EDMS 15:59 15:59 HEPATIC FUNCTION+C.LAB.BRZ ordered. EDMS EDMS 15:59 15:59 MAGNESIUM+C.LAB.BRZ ordered. EDMS EDMS 15:59 15:59 PROBNP+C.LAB.BRZ ordered. EDMS EDMS 15:59 15:59 PROTIME (+INR)+COAG.LAB.BRZ ordered. EDMS EDMS 15:59 15:59 Troponin High Sensitivity+C.LAB.BRZ ordered. EDMS EDMS 15:59 15:59 Chest Single View+RAD.RAD.BRZ ordered. EDMS EDMS 16:07 16:06 Home Meds: latanoprost 0.005 % ophthalmic (eye) drops 1 drop every evening for me1 both eyes; both eyes; me1 21:38 18:46 sb4 vk
[2024-12-19] MEDS ORDERED: ACETAMINOPHEN 325 MG TABLET PO PRN (21:34)
--- NOTE | 2024-12-19 21:34 | P.HP ---
Certification for Inpatient Patient admitted to: Observation With expected LOS: <2 Midnights Patient will require the following post-hospital care: Home Health Services Practitioner: I am a practitioner with admitting privileges, knowledge of patient current condition, hospital course, and medical plan of care. Services: Services provided to patient in accordance with Admission requirements found in Title 42 Section 412.3 of the Code of Federal Regulations Patient History Date of Service: 12/19/24 Reason for admission: Altered mental status, body weakness, deconditioning. History of Present Illness: Patient is an 89 years old female who is a current resident at [facility], with past medical history of Alzheimer's disease, dementia, chronic pain, depressive disorder, gallstones, GERD, hypercholesteremia, hypertension, hypothyroidism, insomnia, kidney disease, leaky heart valve, brought to the ER today due to altered mental status with associated generalized body weakness. Patient is not able to provide any current history, as such her history was provided by the grandmother who was present at the bedside. She states while she was at work t [employer] at [employer], she received a call from where patient lives, stating that patient was more confused and needed to be transferred to the ER. Patient daughter states since patient was started on Keppra, her mentation has progressively worsening. She states patient does not have any seizure disorder. She states at a point when patient was transferred from her residence to the ER by EMS, report provided by the EMS to the ER was during the transfer patient was shaking, at it was then assumed that patient had seizure, whereas she does not, and when she was discharged here from the hospital, she was discharged on Keppra. During admission assessment, patient was fully awake, alert and oriented to her name, not able to carry on a coherent discussion. Allergies amoxicillin [From Augmentin] Allergy (Verified 02/09/23 12:24) Rash clavulanic acid [From Augmentin] Allergy (Verified 02/09/23 12:24) Rash Penicillins Allergy (Verified 02/09/23 12:) Rash sulfamethoxazole [From Bactrim] Allergy (Verified 02/09/23 12:24) Itching trimethoprim [From Bactrim] Allergy (Verified 02/09/23 12:24) Itching hydrocodone Adverse Reaction (Verified 02/09/23 12:24) Insomnia Home Medications: Clopidogrel Bisulfate [Plavix*] 75 mg PO DAILY 09/28/20 Atorvastatin Calcium [Lipitor] 80 mg PO BEDTIME 01/28/23 Levothyroxine Sodium 50 mcg PO 0500 01/28/23 Donepezil HCl 10 mg PO BEDTIME 02/01/23 Duloxetine HCl 30 mg PO DAILY 02/07/24 Isosorbide Dinit [Isordil*] 20 mg PO TID 02/07/24 Latanoprost Ophth [Xalatan 0.005%*] 1 drop EACH EYE BEDTIME 02/07/24 Multivitamin with Minerals [Multivitamins with Minerals] 1 each PO DAILY 02/07/24 Acetaminophen [Tylenol] 650 mg PO TID 02/08/24 Valacyclovir [Valtrex*] 500 mg PO DAILY 02/08/24 Nitrofurantoin Macrocrystal [Nitrofurantoin] 50 mg PO BEDTIME 30 Days #30 cap 02/11/24 levETIRAcetam [Keppra Tab] 500 mg PO Q12H #60 tab 04/21/24 Amlodipine [Norvasc*] 1 tab PO DAILY 12/20/24 Aspirin 1 tab PO DAILY 12/20/24 Furosemide 1 tab PO DAILY 12/20/24 Meclizine HCl 1 tab PO TID 12/20/24 Olanzapine [Zyprexa] 1 tab PO DAILY 12/20/24 lisinopriL [Lisinopril] 1 tab PO Q12H 12/20/24 - Past Medical/Surgical History Diabetic: No -: Hypertension -: Hyperlipidemia -: Carotid arterial disease -: Atrial fibrillation on chronic anticoagulation therapy -: GERD -: Pudental nerve ablation -: Surgical hypothyroidism -: 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 -: Hearing loss -: Carotid enterectomy -: Thyroidectomy Psychosocial/ Personal History: Patient lives at [facility] - Family History Father -: Heart disease - Social History Alcohol use: No CD- Drugs: No Caffeine use: No Review of Systems is unable to be obtained (Due to patient altered mental status.) Physical Examination - Physical Exam General: Alert, Oriented x1 HEENT: Atraumatic, Normocephalic, PERRLA, Mucous membr. moist/pink, Sclerae nonicteric Neck: Supple, 2+ carotid pulse no bruit, No LAD, Without JVD or thyroid a bnormality Respiratory: Clear to auscultation bilaterally, Normal air movement Cardiovascular: No edema, Normal pulses, Regular rate/rhythm, Normal S1 S2, No gallops, No rubs, No murmurs Capillary refill: <2 Seconds Gastrointestinal: Normal bowel sounds, Soft and benign, Non-distended, W/out hepatomegaly, No ascites, No tenderness, No masses, No guarding Musculoskeletal: No clubbing, No swelling, No contractures, No erythema, No tenderness, No warmth Integumentary: No rashes, No breakdown, No significant lesion, No tenderness/swelling, No erythema, No warmth, No cyanosis Neurological: Normal reflexes 2+, Other (altered mental status secondary to dementia and Alzheimer's.) Lymphatics: No axilla or inguinal lymphadenopathy - Studies Laboratory Data (last 24 hrs) 12/19/24 12/19/24 12/19/24 16:22 16:22 16:22 WBC 6.30 Hgb 12.9 Hct 37.8 Plt Count 289 PT 13.2 H INR 1.17 Sodium 139 Potassium 3.9 BUN 15 Creatinine 1.01 Glucose 116 H Magnesium 2.3 Total Bilirubin 0.6 AST 29 ALT 41 Alkaline Phosphatase 76 Female Exam - Breasts Breasts: Normal configuration, Normal contours, Symmetrical Assessment and Plan - Plan Patient is a female brought to the ER due to altered mental status with associated generalized body weakness. Denies of any chest pain or shortness of breath. (1)Progressive and worsening altered mental status with generalized body weakness. Patient CT of the head negative for any acute findings. -Consult neurologist Dr. Gonsalez. -IV D5 NS at 50 mL/hr x 1 L. Appears dehydrated. -Consult physical therapy. - Continue donepezil 10 mg p.o. daily. Current history of Alzheimer's disease and dementia. (2) DVT prophylaxis. -Lovenox 40 mg subcu daily. (3) chronic essential hypertension. -Continue amlodipine 5 mg p.o. daily. -Continue lisinopril 20 mg p.o. daily. (3) chronic hypothyroidism. -Continue levothyroxine 50 mcg p.o. daily. (4) chronic hypercholesterolemia. -Continue atorvastatin 80 mg p.o. daily. (5) Explained entire treatment plan to the patient granddaughter present at bedside, solicited questions answered voiced understanding. Discharge Plan: Home Plan to discharge in: 72 Hours - Advance Directives Does patient have a Living Will: No Does patient have a Durable POA for Healthcare: No - Code Status/Comfort Care Code Status Assessed: Yes Code Status: Full Code Critical Care: No Time Spent Managing Pts Care (In Minutes): 55
[2024-12-19] MEDS: D5 0.45 NS 1,000 ML IV SCH (23:35)
[2024-12-20 00:20] VITALS: O2SAT 96
[2024-12-20 01:58] VITALS: BMI 23.0
[2024-12-20 07:24] LABS: ALT/SGPT 35.0 U/L (13-56); AST/SGOT 25.0 U/L (15-37); Albumin 3.3 g/dL (3.4-5.0); Albumin/Globulin Ratio 1.1 (1.1-1.8); Alkaline Phosphatase 78.0 U/L (45-117); Anion Gap 7.6 mEq/L (5.0-15.0); BUN Blood Urea Nitrogen 11.0 mg/dL (7-18); Globulin 3.0 g/dL (2.3-3.5); Glucose Level 92.0 mg/dL (74-106); Magnesium 2.2 mg/dL (1.6-2.4); Potassium 3.6 mEq/L (3.5-5.1)
[2024-12-20] MEDS ORDERED: ENOXAPARIN 40 MG/0.4 ML SQ SCH (09:00)
[2024-12-20] MEDS: DULOXETINE 30 MG CAP PO SCH (09:55)
[2024-12-20] MEDS: ENOXAPARIN 30 MG/0.3 ML SQ SCH (09:55)
[2024-12-20] MEDS: ISOSORBIDE DINIT 20 MG TAB PO SCH (09:55)
[2024-12-20] MEDS: CLOPIDOGREL 75 MG TABLET PO SCH (09:55)
[2024-12-20] MEDS: ACETAMINOPHEN 325 MG TABLET PO SCH (09:55)
[2024-12-20] MEDS: VALACYCLOVIR 500 MG TAB PO SCH (09:55)
[2024-12-20] MEDS: FUROSEMIDE 20 MG TABLET PO SCH (09:55)
[2024-12-20] MEDS: ASPIRIN EC 81 MG TAB PO SCH (09:56)
[2024-12-20] MEDS: OLANZapine 2.5 MG TAB PO SCH (09:56)
[2024-12-20] MEDS: AMLODIPINE 5 MG TAB PO SCH (09:57)
[2024-12-20] MEDS: LEVOTHYROXINE SOD 0.05 MG TABLET PO SCH (09:59)
[2024-12-20 12:12] VITALS: TEMP 97.9
[2024-12-20] MEDS ORDERED: POTASSIUM CL SA 10 MEQ TAB PO ONE (13:37)
[2024-12-20] MEDS: POTASSIUM CL SA 10 MEQ TAB PO ONE (13:39)
--- NOTE | 2024-12-20 15:57 | P.DS ---
Admission Date: 12/19/24 Discharge Date: 12/20/24 Disposition: ROUTINE DISCHARGE Discharge Condition: GOOD Reason for Admission: Altered mental status, body weakness, deconditioning. Hospital Course: Patient stated to work with physical therapy. She was alert but disoriented. She is a resident of [facility]. We have called the senior care and established that she is not far from baseline. She did well with physical t herapy. As far as her mental status, she is occasionally disoriented which is not far from what we are seeing here. Patient can be discharged to resume therapy at [facility]. Workup here was unremarkable including influenza, COVID-19, UTI, pneumonia. She also had a CT head which was unremarkable. Vital Signs/Physical Exam: Temp Pulse Resp BP Pulse Ox 97.9 F 63 16 133/61 91 12/20/24 12:00 12/20/24 12:43 12/20/24 12:00 12/20/24 12:43 12/20/24 12:00 General: In no apparent distress, Cooperative, Confused HEENT: Atraumatic, Normocephalic Respiratory: Clear to auscultation bilaterally, Normal air movement Cardiovascular: No edema, Normal pulses, Regular rate/rhythm, Normal S1 S2 Neurological: Normal speech, Dementia Laboratory Data at Discharge: WBC 6.30 thou/uL (4.3-10.9) 12/19/24 16:22 Hgb 12.9 g/dL (12.0-15.0) 12/19/24 16:22 Hct 37.8 % (36.0-45.0) 12/19/24 16:22 Plt Count 289 thou/uL (152-406) 12/19/24 16:22 PT 13.2 SECONDS (10-13.0) H 12/19/24 16:22 INR 1.17 12/19/24 16:22 Sodium 141 mEq/L (136-145) 12/20/24 06:26 Potassium 3.6 mEq/L (3.5-5.1) 12/20/24 06: BUN 11 mg/dL (7-18) 12/20/24 06: Creatinine 0.66 mg/dL (0.55-1.02) 12/20/24 06: Glucose 92 mg/dL (74-106) 12/20/24 06:26 Magnesium 2.2 mg/dL (1.6-2.4) 12/20/24 06:26 Total Bilirubin 0.6 mg/dL (0.2-1.0) 12/20/24 06:26 AST 25 U/L (15-37) 12/20/24 06:26 ALT 35 U/L (13-56) 12/20/24 06:26 Alkaline Phosphatase 78 U/L (45-117) 12/20/24 06:26 Home Medications: Clopidogrel Bisulfate [Plavix*] 75 mg PO DAILY 09/28/20 Atorvastatin Calcium [Lipitor] 80 mg PO BEDTIME 01/28/23 Levothyroxine Sodium 50 mcg PO 0500 01/28/23 Donepezil HCl 10 mg PO BEDTIME 02/01/23 Duloxetine HCl 30 mg PO DAILY 02/07/24 Isosorbide Dinit [Isordil*] 20 mg PO TID 02/07/24 Latanoprost Ophth [Xalatan 0.005%*] 1 drop EACH EYE BEDTIME 02/07/24 Multivitamin with Minerals [Multivitamins with Minerals] 1 each PO DAILY 02/07/24 Acetaminophen [Tylenol] 650 mg PO TID 02/08/24 Valacyclovir [Valtrex*] 500 mg PO DAILY 02/08/24 Nitrofurantoin Macrocrystal [Nitrofurantoin] 50 mg PO BEDTIME 30 Days #30 cap 02/11/24 levETIRAcetam [Keppra*] 500 mg PO Q12H #60 tab 04/21/24 Amlodipine [Norvasc*] 1 tab PO DAILY 12/20/24 Aspirin 1 tab PO DAILY 12/20/24 Furosemide 1 tab PO DAILY 12/20/24 Meclizine HCl 1 tab PO TID 12/20/24 Olanzapine [Zyprexa] 1 tab PO DAILY 12/20/24 lisinopriL [Lisinopril] 1 tab PO Q12H 12/20/24 Followup: Gabby Shi MD [Primary Care Provider] -
[2024-12-20 16:23] VITALS: BP 96/54
[2024-12-20] MEDS ORDERED: DONEPEZIL HCL 5 MG TAB PO SCH (21:00)
[2024-12-20] MEDS ORDERED: NITROFURANTOIN MACROCRYSTALS 50 MG PO SCH (21:00)
[2024-12-20] MEDS ORDERED: LATANOPROST 0.005% 2.5ML OPTH OPTH SCH (21:00)
[2024-12-20] MEDS ORDERED: ATORVASTATIN 80 MG TAB PO SCH (21:00)
== END 2024-12-20 18:30 | disposition home or self-care (01) ==
LOC: ER 15:56 → 2ND 21:29
PROVIDERS: ADMIT Internal Medicine; ATTEND Internal Medicine
DX: R41.82 Altered mental status, unspecified (principal); R53.1 Weakness; G30.9 Alzheimer's disease, unspecified; F02.80 Dementia in other diseases classified elsewhere, unspecified severity, without behavioral disturbance, psychotic disturbance, mood disturbance, and anxiety; G89.29 Other chronic pain; F32.A Depression, unspecified; K81.0 Acute cholecystitis; K21.9 Gastro-esophageal reflux disease without esophagitis; E78.00 Pure hypercholesterolemia, unspecified; I10 Essential (primary) hypertension; E03.9 Hypothyroidism, unspecified; G47.00 Insomnia, unspecified; N18.9 Chronic kidney disease, unspecified; Z88.0 Allergy status to penicillin; Z88.2 Allergy status to sulfonamides; Z88.1 Allergy status to other antibiotic agents; Z11.52 Encounter for screening for COVID-19
CPT/HCPCS: 93005; 85025; 80048; 36415; 82140; 83735 ×2; 82550; 85610; 80076; 83605; 81003; 84484; 80053; 83880; 70450; 71045; 97116; 97162; 97530 ×2; 99285; 87428; J1650; J7799; G0378 ×3

== ENCOUNTER 2024-12-22 15:07 | Emergency (ER) | payer OTHER ==
--- NOTE | 2024-12-22 16:06 | RAD REPORT ---
EXAMINATION: CT HEAD WITHOUT CONTRAST CT CERVICAL SPINE WITHOUT CONTRAST CLINICAL INDICATION: Head and neck injury status post fall. Head and neck pain TECHNIQUE: Axial CT images from the skull base to the vertex without intravenous contrast. Axial CT i mages through the cervical spine were obtained without intravenous contrast. Sagittal and coronal reformatted images were created from the data set. Coronal and sagittal reformatted images were creat ed from the data set. One or more of the following dose reduction techniques were used: Automated exposure control, adjustment of the mA and/or kV according to patient size, and/or iterative reconstr uction. Unless otherwise specified, incidental findings do not require dedicated imaging follow-up. [id number]. Comparison: September and December 19, 2024 FINDINGS: An intracranial bleed is not seen. Ventricles are normal in caliber. No significant hypodensity within the brain No extra-axial fluid collection. No fluid within the sinuses/mastoids No fracture or dislocation is seen involving the cervical spine. Minimal posterior subluxation C5 on C6 unchanged IMPRESSION: No acute intracranial abnormality noted A cervical fracture is not seen. If the patient continues to have symptoms to suggest acute MED ASST/spinal pathology then MRI would be rec ommended
--- NOTE | 2024-12-22 16:18 | RAD REPORT ---
EXAM: CT CHEST, ABDOMEN AND PELVIS WITHOUT CONTRAST CLINICAL INDICATION: Chest and abdominal pain status post fall TECHNIQUE: CT chest, abdomen and pelvis was performed, without IV contrast, as per department protoco l. Axial, sagittal and coronal reconstructions were obtained. One or more of the following dose reduction techniques were used: Automated exposure control, adjustment of the mA and/or kV according to the patient size, and/or iterative reconstruction. Unless otherwise specified, incidental findings do not require dedicated imaging follow-up. The lack of IV and oral contrast limits evaluation of the mediastinum, guzman, vessels, organs and maryann l. COMPARISON: March 2024 FINDINGS: A pulmonary contusion is not present. No mediastinal hematoma. No pleural effusion. No pericardial effusion. Liver, spleen, pancreas, adrenals kidneys and bladder do not demonstrate an acute injury. Increased density subcutaneous tissues right thigh Dense calcification abdominal aorta results in a severe stenosis Diverticula stem from colon. Minimal stranding adjacent to the sigmoid colon. This is compatible with a minimal diverticulitis IMPRESSION: Increased density subcutaneous tissues right thigh may represent a contusion.555 Minimal sigmoid diverticulitis
--- NOTE | 2024-12-22 16:22 | ER ---
Nurse's Notes [facility] Name: Leyda Ramos Age: 89 yrs Sex: Female : 1935 Arrival Date: 12/22/2024 Time: 15:07 Bed 19 Private MD: Diagnosis: Fall on same level, unspecified;Sigmoid diverticulitis - incidental Presentation: 12/22 15:13 Chief complaint: EMS states: toned out for unwitnessed fall at [facility]. Patient found me1 on the floor behind her door. Patient was c/o pain to head and hips and knees to [place] staff. Denies pain to EMS. Coronavirus screen: Vaccine status: Patient reports receiving the 2nd dose of the covid vaccine. Ebola Screen: No symptoms or risks identified at this time. Initial Sepsis Screen: Does the patient meet any 2 criteria? No. Patient's initial sepsis screen is negative. Does the patient have a suspected source of infection? No. Patient's initial sepsis screen is negative. Risk Assessment: Do you want to hurt yourself or someone else? Patient reports no desire to harm self or others. Onset of symptoms was December 22, 2024 at 14:45. 15:13 Method Of Arrival: EMS: [facility] dc1 15:13 Acuity: EVELIO 3 me1 Triage Assessment: 15:15 General: Appears in no apparent distress. Behavior is calm, cooperative, appropriate me1 for age. Pain: Denies pain. EENT: No signs and/or symptoms were reported regarding the EENT system. Neuro: Level of Consciousness is awake, alert, obeys commands, confused, Oriented to person, Appropriate for age. Cardiovascular: Patient's skin is warm and dry. Respiratory: Airway is patent Respiratory effort is even, unlabored, Respiratory pattern is regular, symmetrical. GI: No signs and/or symptoms were reported involving the gastrointestinal system. : No signs and/or symptoms were reported regarding the genitourinary system. Derm: Skin is intact, is fragile, is thin, Skin is normal. Musculoskeletal: Circulation, motion, and sensation intact. Range of motion: intact in all extremities. Injury Description: unwitnessed fall today at [facility]. Historical: - Allergies: 15:15 Augmentin; me1 15:15 Bactrim; me1 15:15 Hydrocodone-Acetaminophen; me1 15:15 PENICILLINS; me1 - PMHx: 15:15 Alzheimer's disease; Chronic pain; pelvic; depressive disorder; GALLSTONES; GERD; High me1 Cholesterol; Hypercholesterolemia; Hypertension; Hypothyroidism; insomnia; kidney disease; leaking heart valve; - Immunization history:: Adult Immunizations up to date. - Infectious Disease History:: Denies. - Social history:: Smoking status: Patient denies any tobacco usage or history of. Screenin:18 [facility] ED Fall Risk Assessment (Adult) History of falling in the last 3 months, [facility] including since admission Yes- fall prone (multiple falls) (3 pts) Confusion or Disorientation Yes (5 pts) Intoxicated or Sedated No (0 pts) Impaired Gait Yes (1 pt) Mobility Assist Device Used Yes (1 pt) Altered Elimination No (0 pt) Score/Fall Risk Level 3 or more points = High Risk Maintained a safe environment, Hourly rounding (assess needs \T\ fall precautionary measures) done, Used ambulatory aids as needed (educated on \T\ assisted with). Abuse screen: Denies threats or abuse. Nutritional screening: No deficits noted. Tuberculosis screening: No symptoms or risk factors identified. Assessment: 15:18 Reassessment: See triage assessment. [facility] 15:48 Reassessment: Pt to CT at this time VIA stretcher with BRANDEN Chan. 15:48 Reassessment: Pt back from CT at this time. 17:05 General: Gave report to Selina at [facility]. Selina is calling [facility] to [facility] transport patient back to [facility]. Vital Signs: 15:00 BP 140 / 59; Pulse 82; Resp 16; Pulse Ox 96% ; me1 15:13 BP 107 / 83; Pulse 73; Resp 18; Temp 98.3; Pulse Ox 98% ; Weight 53.52 kg; Height 5 ft. me1 0 in. ; 15:45 BP 145 / 76; Pulse 78; Resp 15; Temp 98.2; Pulse Ox 97% ; me1 16:00 BP 151 / 66; Pulse 82; Resp 17; Pulse Ox 94% ; me1 17:00 BP 145 / 80; Pulse 81; Resp 16; Pulse Ox 96% ; me1 15:13 Body Mass Index 23.04 (53.52 kg, 152.4 cm) [facility] ED Course: 15:12 Patient arrived in ED. me1 15:14 Loli Bella PA-C is PHCP. sb4 15:14 All Ozuna MD is Attending Physician. sb4 15:15 Triage completed. me1 15:15 Arm band placed on Patient placed in an exam room. me1 15:18 Patient has correct armband on for positive identification. Bed in low position. Call me1 light in reach. Side rails up X2. Provided Education on: POC. Verbalized understanding.. Client placed on continuous cardiac and pulse oximetry monitoring. NIBP monitoring applied. Pulse ox on. NIBP on. 15:18 No provider procedures requiring assistance completed. me1 15:33 Edith Carnes, RN is Primary Nurse. me1 15:51 Head C Spine MPR Wo Con CT In Process Unspecified. EDMS 15:51 Chest Abdomen Pelvis Wo Con CT In Process Unspecified. EDMS 17:04 Patient did not have IV access during this emergency room visit. me1 Administered Medications: 16:30 Drug: Ciprofloxacin PO 500 mg PO once Route: PO; me1 17:02 Follow up: Response: No adverse reaction me1 16:30 Drug: metroNIDAZOLE PO 500 mg PO once Route: PO; me1 17:02 Follow up: Response: No adverse reaction me1 Medication: 15:18 VIS not applicable for this client. me1 Outcome: 16:21 Discharge ordered by . sb4 18:01 Discharged to residential. Report called to Selina me1 18:01 Discharged to residential. Picked up by Granddaughter and taken back to [place] 18:01 Condition: stable 18:01 Discharge instructions given to family, residential, Instructed on discharge instructions, follow up and referral plans. medication usage, Demonstrated understanding of instructions, follow-up care, medications, Prescriptions given X 2, 18:02 Patient left the ED. me1 Signatures: Dispatcher [employer] EDMS Tayler Batres RN RN ss Loli Bella PA-C PA-C sb4 Edith Carnes, RN RN me1 Corrections: (The following items were deleted from the chart) 15:56 15:54 Reassessment: Pt to CT at this time VIA stretcher with BRANDEN Chan
--- NOTE | 2024-12-22 16:22 | EDPHYS ---
Physician Documentation [facility] [place] Name: Leyda Ramos Age: 89 yrs Sex: Female : 1935 Arrival Date: 12/22/2024 Time: 15:07 Bed 19 Private MD: ED Physician All Ozuna HPI: 12/22 16:47 This 89 yrs old Female presents to ER via EMS with complaints of Fall Injury. sb4 16:47 EMS was called because patient was reported to have an unwitnessed fall. Patient has a sb4 history of Alzheimer's and recurrent falls. She has no complaints at this time. No injuries, deformities, bleeding are noted. Was recently admitted to the hospital for recurrent falls and generalized weakness. Historical: - Allergies: 15:15 Augmentin; me1 15:15 Bactrim; me1 15:15 Hydrocodone-Acetaminophen; me1 15:15 PENICILLINS; me1 - PMHx: 15:15 Alzheimer's disease; Chronic pain; pelvic; depressive disorder; GALLSTONES; GERD; High me1 Cholesterol; Hypercholesterolemia; Hypertension; Hypothyroidism; insomnia; kidney disease; leaking heart valve; - Immunization history:: Adult Immunizations up to date. - Infectious Disease History:: Denies. - Social history:: Smoking status: Patient denies any tobacco usage or history of. ROS: 16:47 Constitutional: Negative for fever, chills, and weight loss, sb4 16:47 All other systems are negative, Exam: 16:47 Head/Face: Normocephalic, atraumatic. Eyes: Extra-ocular motions intact. Periorbital sb4 areas with no swelling, redness, or edema. ENT: Mucous membranes moist. Cardiovascular: Regular rate and rhythm with a normal S1 and S2. Respiratory: No increased work of breathing, no retractions or nasal flaring. Abdomen/GI: Soft, non-tender, no distension. Skin: Warm, dry with normal turgor. Normal color with no rashes, no lesions, and no evidence of cellulitis. 16:47 Constitutional: The patient appears in no acute distress, alert, awake, Vital Signs: 15:00 BP 140 / 59; Pulse 82; Resp 16; Pulse Ox 96% ; me1 15:13 BP 107 / 83; Pulse 73; Resp 18; Temp 98.3; Pulse Ox 98% ; Weight 53.52 kg; Height 5 ft. me1 0 in. ; 15:45 BP 145 / 76; Pulse 78; Resp 15; Temp 98.2; Pulse Ox 97% ; me1 16:00 BP 151 / 66; Pulse 82; Resp 17; Pulse Ox 94% ; me1 17:00 BP 145 / 80; Pulse 81; Resp 16; Pulse Ox 96% ; me1 15:13 Body Mass Index 23.04 (53.52 kg, 152.4 cm) me1 MDM: 15:14 Medical Screening Exam initiated sb4 16:47 Differential diagnosis: abrasion, closed head injury, contusion, fracture, sprain, sb4 strain. Data reviewed: vital signs, nurses notes, EMS record, intermediate records, radiologic studies, CT scan, and as a result, I will discharge patient. Counseling: I had a detailed discussion with the patient and/or guardian regarding the historical points, exam findings, and any diagnostic results supporting the discharge/admit diagnosis, radiology results, the need for outpatient follow up, for definitive care, to return to the emergency department if symptoms worsen or persist or if there are any questions or concerns that arise at home. ED course: CT showed incidental minimal sigmoid diverticulitis. Patient does not have any abdominal pain, diarrhea, fever, chills, nausea, vomiting. Will treat with Cipro and Flagyl to prevent any worsening and safely discharge home. 12/22 15:20 Order name: Head C Spine MPR Wo Con CT; Complete Time: 16:10 sb4 12/22 15:20 Order name: Chest Abdomen Pelvis Wo Con CT; Complete Time: 16:19 sb4 Administered Medications: 16:30 Drug: Ciprofloxacin PO 500 mg PO once Route: PO; me1 17:02 Follow up: Response: No adverse reaction me1 16:30 Drug: metroNIDAZOLE PO 500 mg PO once Route: PO; me1 17:02 Follow up: Response: No adverse reaction me1 Disposition Summary: 12/22/24 16:21 Discharge Ordered Notes: Location: Home sb4 Problem: new sb4 Symptoms: have improved sb4 Condition: Stable sb4 Diagnosis - Fall on same level, unspecified sb4 - Sigmoid diverticulitis - incidental sb4 Followup: sb4 - With: Emergency Department - When: As needed - Reason: Trouble breathing, Worsening of condition Discharge Instructions: - Discharge Summary Sheet sb4 - Diverticulitis, [id number] sb4 - Fall Prevention in the Home, Adult, [id number] sb4 Forms: - Antibiotic Education sb4 - Patient Portal Instructions sb4 - Leadership Thank You Letter sb4 Prescriptions: - Flagyl 500 mg Oral Tablet - take 1 tablet ORAL route every 12 hours for 7 days; 14 tablet; Refills: 0, sb4 Product Selection Permitted - Cipro 500 mg Oral Tablet - take 1 tablet ORAL route every 12 hours for 7 days; 14 tablet; Refills: 0, sb4 Product Selection Permitted Signatures: Dispatcher [employer] Loli Kemp PA-C PA-C sb4 Edith Carnes RN RN me1
[2024-12-22] MEDS ORDERED: CIPROFLOXACIN HCL 500 MG TAB ONE (16:28)
[2024-12-22 18:43] VITALS: TEMP 98.2
[2024-12-22 18:45] VITALS: BP 145/80; O2SAT 96
== END 2024-12-22 18:02 | disposition home or self-care (01) ==
LOC: ER 15:07
DX: Z04.3 Encounter for examination and observation following other accident (principal); W18.30XA Fall on same level, unspecified, initial encounter; K57.32 Diverticulitis of large intestine without perforation or abscess without bleeding
CPT/HCPCS: 70450; 71250; 72125; 74176; 99284